=== PATIENT | female | born 1980 | race Caucasian/White ===

== ENCOUNTER 2019-12-31 16:44 | Inpatient (IN) | payer MEDICAID ==
[~2019-12-31] VITALS: Ht 154.9 cm; Wt 32.0 kg
[2019-12-31 17:00] VITALS: BP 86/58
[2019-12-31] MEDS ORDERED: LABETALOL HCL200 MG GT (17:00)
[2019-12-31] MEDS ORDERED: VITAMIN A & D454 GM TOP (17:00)
[2019-12-31] MEDS ORDERED: LEVOTHYROXINE75 MCG GT (17:00)
[2019-12-31] MEDS ORDERED: COLACE100 MG GT (17:00)
[2019-12-31] MEDS ORDERED: LOPERAMIDE2 MG PO (17:00)
[2019-12-31] MEDS ORDERED: ZOSYN 3.373.375 GM/1 IVPB (17:00)
[2019-12-31] MEDS ORDERED: UTI-STAT L3875 MG/31 PO (17:00)
[2019-12-31] MEDS ORDERED: MULTIVITAMINS1 EAC8 GT (17:00)
[2019-12-31] MEDS ORDERED: PROSTAT (17:00)
[2019-12-31] MEDS ORDERED: Vancomycin 1 GM in NS 275 ML IVPB ONE (17:00)
[2019-12-31] MEDS ORDERED: VITAMIN E400 UNIT PO (17:00)
[2019-12-31] MEDS ORDERED: XIFAXAN550 MG GT (17:00)
[2019-12-31] MEDS ORDERED: NEURONTIN600 MG ORAL (17:00)
[2019-12-31] MEDS ORDERED: MILK OF MA400 MG/51 GT (17:00)
[2019-12-31] MEDS ORDERED: KLONOPIN1 MG GT (17:00)
[2019-12-31] MEDS ORDERED: ZOFRAN4 M3 GT (17:00)
[2019-12-31] MEDS ORDERED: Piperacillin/Tazobactam 3.375 GM in NS 110 ML IVPB ONE (17:00)
[2019-12-31] MEDS ORDERED: BUMETANIDE0.5 MG GT (17:00)
[2019-12-31] MEDS ORDERED: PROTONIX40 MG GT (17:00)
[2019-12-31] MEDS ORDERED: PANCREALIPASE GT (17:00)
[2019-12-31] MEDS ORDERED: VITAMIN B-1100 MG GT (17:00)
[2019-12-31] MEDS ORDERED: ACETAMINOPHEN325 M1 GT (17:00)
[2019-12-31] MEDS ORDERED: KEPPRA1000 MG ORAL (17:00)
[2019-12-31] MEDS ORDERED: TRAMADOL HCL50 MG GT (17:00)
[2019-12-31] MEDS ORDERED: ATROVENT HFA12.9 GM IH (17:00)
[2019-12-31] MEDS ORDERED: VITAMIN C500 M1 GT (17:00)
[2019-12-31] MEDS ORDERED: ATORVASTATIN CA20 MG ORAL (17:00)
[2019-12-31] MEDS ORDERED: HIBICLENS118 ML TP (17:00)
[2019-12-31] MEDS ORDERED: Pantoprazole 80 MG in NS 250 ML IV ONE (17:30)
[2019-12-31 17:31] LABS: HEMATOCRIT 21.3 % (37.0-47.0); MEAN CORPUSCULAR VOLUME 95 FL (80-99); PLATELET COUNT 231 K/UL (150-450); RED BLOOD COUNT 2.25 M/UL (4.20-5.40); RED CELL DISTRIBUTION WIDTH 15.4 % (11.6-14.8)
[2019-12-31 17:37] LABS: APPEARANCE,URINE CLEAR; BILIRUBIN, URINE NEGATIVE (NEGATIVE); COLOR,URINE YELLOW; GLUCOSE, URINE (UA) NEGATIVE (NEGATIVE); KETONES,URINE NEGATIVE (NEGATIVE); NITRITE,URINE NEGATIVE (NEGATIVE); PROTEIN,URINE NEGATIVE (NEGATIVE); UROBILINOGEN,URINE NORMAL MG/DL (0.0-1.0); WHITE BLOOD COUNT 24.7 K/UL (4.8-10.8)
[2019-12-31 17:38] LABS: LEUKOCYTE ESTERASE ,URINE NEGATIVE (NEGATIVE)
[2019-12-31 17:46] LABS: ANION GAP 8 mmol/L (5-15); BLOOD UREA NITROGEN 84 mg/dL (7-18); CALCIUM 8.8 MG/DL (8.5-10.1); CARBON DIOXIDE 34 MMOL/L (21-32); CHLORIDE 108 MMOL/L (98-107); CREATININE 0.7 MG/DL (0.55-1.30); SODIUM 149 MMOL/L (136-145)
[2019-12-31 17:58] LABS: ALANINE AMINOTRANSFERASE 154 U/L (12-78); ALBUMIN 2.7 G/DL (3.4-5.0); ALBUMIN/GLOBULIN RATIO 0.7 (1.0-2.7); ALKALINE PHOSPHATASE 142 U/L (46-116); ASPARTATE AMINO TRANSFERASE 67 U/L (15-37); BILIRUBIN,TOTAL 0.2 MG/DL (0.2-1.0); CKMB 6.6 NG/ML (0.0-3.6); CREATINE KINASE 195 U/L (26-308); PHOSPHORUS 2.7 MG/DL (2.5-4.9)
--- NOTE | 2019-12-31 17:59 | Emergency Room Report ---
History of Present Illness General Chief Complaint: Abnormal Labs Source: Patient Present Illness HPI 39-year-old female with history of hepatic encephalopathy, trach and vent dependent, myriad of other medical problems, here with elevated BUN, hypotension , rectal bleeding. Per the nursing report the patient had a BUN today of 118 and hemoglobin of 7.2. Blood pressure reading at the [facility] was 80/40 however the patient appeared to be at her normal baseline mental status. According to [facility] nurse here in the emergency department patient normally thrashes and tries to pull out her trach regularly, which she is doing here in the emergency department. She is unable to participate in examination or review of systems secondary to hepatic encephalopathy at baseline altered mental status. Allergies: Coded Allergies: CARBAMAZEPINE (Verified Allergy, Unknown, 12/31/19) LORAZEPAM (Verified Allergy, Unknown, 12/31/19) COVID-19 Screening Contact w/high risk pt: No Experienced COVID-19 symptoms?: No COVID-19 Testing performed COOK MESS: Yes - 12/27/2019 COVID-19 Screening: Negative COVID-19 COVID-19 Testing Source: nasopharyngeal Nursing Documentation-[facility] Past Medical History: No History, Except For Hx Hypertension: Yes Review of Systems All Other Systems: limited - Limited secondary to baseline altered mental status Physical Exam Vital Signs Date Time Temp Pulse Resp B/P (MAP) Pulse Ox O2 Delivery O2 Flow Rate FiO2 12/31/19 16:45 98.1 112 23 86/58 (67) 100 Trach Collar 5.0 12/31/19 17:14 40 Sp02 EP Interpretation: reviewed, normal General Appearance: thin, other - Appears cachectic, chronically ill. Thrashing and attempting to rip out IVs and trach Head: normocephalic, atraumatic Eyes: bilateral eye normal inspection, bilateral eye PERRL ENT: hearing grossly normal, normal pharynx, no angioedema, normal voice Neck: full range of motion, supple/symm/no masses, other - Trach in place. Patient breathing comfortably Respiratory: other - Ventilator dependent. Mechanical breath sounds all lung rodríguez. On the ventilator, no apparent respiratory distress Cardiovascular #1: regular rate, rhythm, no edema Cardiovascular #2: 2+ carotid (R), 2+ carotid (L), 2+ radial (R), 2+ radial (L) , 2+ dorsalis pedis (R), 2+ dorsalis pedis (L) Gastrointestinal: normal bowel sounds, non tender, soft, non-distended, no guarding, no rebound, other - And largely nontender and nondistended. G-tube in place without any surrounding erythema or induration or leakage Rectal: other - Hemoccult positive Genitourinary: normal inspection, no CVA tenderness Musculoskeletal: back normal, normal range of motion, calf tenderness, gait/ station normal, non-tender Neurologic: other - Altered at baseline, thrashing, attempting to pull out tracheostomy and IVs Lymphatic: no adenopathy Medical Decision Making Diagnostic Impression: Primary Impression: GI bleed Additional Impressions: Sepsis Pneumonia ER Course Total critical care time: Approximately 45 minutes Due to a high probability of clinically significant, life threatening deterioration, the patient required the highest level of preparedness to intervene emergently and I personally spent this critical care time directly and personally managing the patient. This critical care time included obtaining a history, examining the patient, pulse oximetry, ordering and reviewing studies , ordering treatments, evaluating response to treatment and updating management plan as needed, frequent reassessment and discussion with other providers as well as arranging for ultimate disposition. This critical to care time was performed to assess and manage the high probability of life-threatening deterioration that could result in multiorgan failure. This critical care time is separate from the separately billable procedures and treating other patients. Laboratory Tests Test 12/31/19 17:00 White Blood Count 24.7 K/UL (4.8-10.8) *H Red Blood Count 2.25 M/UL (4.20-5.40) L Hemoglobin 7.0 G/DL (12.0-16.0) L Hematocrit 21.3 % (37.0-47.0) L Mean Corpuscular Volume 95 FL (80-99) Mean Corpuscular Hemoglobin 31.0 PG (27.0-31.0) Mean Corpuscular Hemoglobin Concent 32.7 G/DL (32.0-36.0) Red Cell Distribution Width 15.4 % (11.6-14.8) H Platelet Count 231 K/UL (150-450) Mean Platelet Volume 8.4 FL (6.5-10.1) Neutrophils (%) (Auto) % (45.0-75.0) Lymphocytes (%) (Auto) % (20.0-45.0) Monocytes (%) (Auto) % (1.0-10.0) Eosinophils (%) (Auto) % (0.0-3.0) Basophils (%) (Auto) % (0.0-2.0) Differential Total Cells Counted 100 Neutrophils % (Manual) 72 % (45-75) Lymphocytes % (Manual) 23 % (20-45) Monocytes % (Manual) 3 % (1-10) Eosinophils % (Manual) 0 % (0-3) Basophils % (Manual) 1 % (0-2) Band Neutrophils 1 % (0-8) Platelet Estimate Adequate Platelet Morphology Normal Polychromasia 1+ Anisocytosis 1+ Prothrombin Time 11.0 SEC (9.30-11.50) Prothrombin Time INR 1.0 (0.9-1.1) Activated Partial Thromboplast Time 23 SEC (23-33) Urine Color Yellow Urine Appearance Clear Urine pH 5.0 (4.5-8.0) Urine Specific [place] 1.015 (1.005-1.035) Urine Protein Negative (NEGATIVE) Urine Glucose (UA) Negative (NEGATIVE) Urine Ketones Negative (NEGATIVE) Urine Blood Negative (NEGATIVE) Urine Nitrite Negative (NEGATIVE) Urine Bilirubin Negative (NEGATIVE) Urine Urobilinogen Normal MG/DL (0.0-1.0) Urine Leukocyte Esterase Negative (NEGATIVE) Sodium Level 149 MMOL/L (136-145) H Potassium Level 3.0 MMOL/L (3.5-5.1) L Chloride Level 108 MMOL/L (98-107) H Carbon Dioxide Level 34 MMOL/L (21-32) H Anion Gap 8 mmol/L (5-15) Blood Urea Nitrogen 84 mg/dL (7-18) H Creatinine 0.7 MG/DL (0.55-1.30) Estimated Glomerular Filtration Rate > 60 mL/min (>60) Glucose Level 86 MG/DL (74-106) Lactic Acid Level 2.90 mmol/L (0.4-2.0) H Calcium Level 8.8 MG/DL (8.5-10.1) Phosphorus Level 2.7 MG/DL (2.5-4.9) Magnesium Level 2.2 MG/DL (1.8-2.4) Total Bilirubin 0.2 MG/DL (0.2-1.0) Aspartate Amino Transferase (AST) 67 U/L (15-37) H Alanine Aminotransferase (ALT) 154 U/L (12-78) H Alkaline Phosphatase 142 U/L (46-116) H Total Creatine Kinase 195 U/L (26-308) Creatine Kinase MB 6.6 NG/ML (0.0-3.6) H Creatine Kinase MB Relative Index 3.3 Troponin I 0.039 ng/mL (0.000-0.056) Total Protein 6.6 G/DL (6.4-8.2) Albumin 2.7 G/DL (3.4-5.0) L Globulin 3.9 g/dL Albumin/Globulin Ratio 0.7 (1.0-2.7) L Microbiology Date/Time Source Procedure Growth Status 12/31/19 17:00 Nasopharynx SARS-CoV-2 RdRp Gene Assay - Final Complete 39-year-old female here with leukocytosis and apparent GI bleed. Patient was Hemoccult positive and had a hemoglobin of 6.9 here in the emergency department. She was transfused 1 unit packed red blood cells. Vital signs were unremarkable. Prior to arrival however patient had a blood pressure reading of 85/55. Blood pressure on arrival however was 120/80 and blood pressure remained stable throughout her stay in the emergency department. Lactate moderately elevated at 2.5. She received a 30 cc/kg fluid bolus and repeat lactate is currently pending. EKG: NSR, no ischemia, intervals WNL. No ectopy Rhythm strip: patient monitored for arrhythmias - no malignant dysrhythmias, runs of PVCs, nor pauses noted She received 80 mg of IV Protonix. Potassium was low at 3.0 and she received potassium repletion. Patient be admitted to stepdown unit due to the fact that she is vent dependent. Chest X-Ray Diagnostic Results Chest X-Ray Diagnostic Results : DIANNA Scribe Text Chest x-ray: Density overlying the bilateral lung apices. May represent pleural thickening, multifocal airspace opacities versus summation artifact. Endotracheal and percutaneous gastrostomy tubes in place Last Vital Signs Date Time Temp Pulse Resp B/P (MAP) Pulse Ox O2 Delivery O2 Flow Rate FiO2 12/31/19 17:14 119 25 40 12/31/19 16:45 98.1 86/58 (67) 100 Trach Collar 5.0 Referrals: Glenny Bishop MD (PCP) Neeraj Rucker M.D. Dec 31, 2019 17:59
[2019-12-31] MEDS ORDERED: Potassium Phosphate 20 MM in NS 275 ML IVPB ONE (18:00)
--- NOTE | 2019-12-31 18:12 | Diagnostic Imaging Report ---
EXAM: XR Chest, 1 View CLINICAL HISTORY: SOB TECHNIQUE: Frontal view of the chest. COMPARISON: None available. FINDINGS: Lungs: Biapical, left greater than right densities are demonstrated. Pleural space: Unremarkable. No pneumothorax. Heart: Unremarkable. No cardiomegaly. Mediastinum: Unremarkable. Bones/joints: Unremarkable. Tubes, lines and devices: Tracheostomy tube is present. Percutaneous gastrostomy tube is noted overlying the left upper quadrant the abdomen. Upper abdomen: Cholecystectomy clips are present. IMPRESSION: 1. Density overlying the bilateral lung apices. May represent pleural thickening, multifocal airspace opacities, versus summation artifact. Consider dedicated frontal and lateral radiographs. 2. Endotracheal and percutaneous gastrostomy tubes in place.
[2019-12-31 18:30] VITALS: BP 98/60
[2019-12-31 19:15] VITALS: BP 110/62
[2019-12-31 20:30] VITALS: BP 113/66
[2019-12-31] MEDS ORDERED: traMADol 50mg tab ORAL PRN ×2 (21:00→21:15)
[2019-12-31 21:55] VITALS: BP 113/61
[2019-12-31] MEDS: Azithromycin 500 MG in D5W 275 ML IV SCH (22:32)
[2019-12-31] MEDS ORDERED: cefTRIAXone 1 GM in D5W 55 ML IVPB SCH (23:00)
[2020-01-01] VITALS (7 sets, daily range): BP systolic 100–124; BP diastolic 60–70
[2020-01-01] MEDS: Albuterol/Ipratropium 3ml neb HHN SCH ×4 (00:54→19:31)
[2020-01-01 06:44] LABS: HEMATOCRIT 22.7 % (37.0-47.0); HEMOGLOBIN 7.4 G/DL (12.0-16.0); MEAN CORPUSCULAR VOLUME 93 FL (80-99); PLATELET COUNT 197 K/UL (150-450); RED BLOOD COUNT 2.45 M/UL (4.20-5.40); RED CELL DISTRIBUTION WIDTH 14.6 % (11.6-14.8)
[2020-01-01 07:08] LABS: ANION GAP 9 mmol/L (5-15); BLOOD UREA NITROGEN 47 mg/dL (7-18); CARBON DIOXIDE 30 MMOL/L (21-32); CHLORIDE 112 MMOL/L (98-107); CREATININE 0.6 MG/DL (0.55-1.30); POTASSIUM 2.9 MMOL/L (3.5-5.1); SODIUM 151 MMOL/L (136-145)
--- NOTE | 2020-01-01 07:15 | History & Physical ---
History of Present Illness General Reason for Hospitalization: Abnormal Labs Present Illness Allergies: Coded Allergies: CARBAMAZEPINE (Verified Allergy, Unknown, 12/31/19) LORAZEPAM (Verified Allergy, Unknown, 12/31/19) COVID-19 Screening Contact w/high risk pt: No Experienced COVID-19 symptoms?: No Medication History Scheduled Ascorbic Acid* (Vitamin C*), 500 MG ORAL DAILY, (Reported) Atorvastatin Calcium* (Atorvastatin Calcium*), 10 MG ORAL BEDTIME, (Reported) Bumetanide* (Bumetanide*), 0.5 MG ORAL DAILY, (Reported) Clonazepam* (Klonopin*), 1 MG ORAL Q6H, (Reported) Docusate Sodium* (Colace*), 100 MG ORAL DAILY, (Reported) Gabapentin* (Neurontin*), 300 MG ORAL EVERY 8 HOURS, (Reported) Labetalol Hcl* (Normodyne*), 200 MG ORAL EVERY 12 HOURS, (Reported) Levetiracetam (Keppra), 1,000 MG ORAL DAILY, (Reported) Levothyroxine Sodium* (Levothyroxine Sodium*), 75 MCG ORAL DAILY, (Reported) Magnesium Hydroxide* (Milk Of Magnesia*), 30 ML ORAL DAILY, (Reported) Multivitamin With Minerals (Multivitamins With Minerals*), 1 TAB ORAL DAILY, ( Reported) Pantoprazole* (Protonix*), 40 MG ORAL DAILY, (Reported) Rifaximin* (Xifaxan*), 550 MG ORAL TWICE A DAY, (Reported) Thiamine Hcl* (Vitamin B-1*), 100 MG ORAL DAILY, (Reported) Scheduled PRN Acetaminophen* (Acetaminophen 325MG Tablet*), 325 MG ORAL Q4H PRN for For Pain, (Reported) Ondansetron* (Zofran*), 4 MG ORAL Q6H PRN for Nausea & Vomiting, (Reported) Tramadol Hcl* (Ultram*), 50 MG ORAL Q6H PRN for For Pain, (Reported) Discontinued Medications Chlorhexidine Gluconate* (Hibiclens*), 118 ML TP, (Reported) Discontinued Reason: MD discontinued med Cran/Vitc/Mannose/Inulin/Brom (Uti-Stat Liquid), 3,875 MG PO, (Reported) Discontinued Reason: MD discontinued med Ipratropium [place] (Atrovent Hfa), 17 GM IH, (Reported) Discontinued Reason: MD discontinued med Loperamide Hcl (Loperamide), 2 MG PO, (Reported) Discontinued Reason: MD discontinued med Axmuoltlqzrp-Csbo-Dlctrsbd,Iso (Zosyn 3.375 Gm Pre Mix-Bag), 3.375 GM IVPB EVERY 8 HOURS, (Reported) Discontinued Reason: MD discontinued med Vitamin A & D (Vitamin A & D Ointment), 454 GM TOP, (Reported) Discontinued Reason: Pt had allergic rxn Vitamin E* (Vitamin E*), 400 UNIT PO DAILY, (Reported) Discontinued Reason: MD discontinued med [pancrealipase], 1,200 GT FIVE TIMES A DAY PRN for supplement, (Reported) Discontinued Reason: MD discontinued med [prostat liquid], (Reported) Discontinued Reason: MD discontinued med Patient History Healthcare decision maker Resuscitation status Advanced Directive on File Review of Systems Review of Symptoms General ROS: no weight loss or fever Psychological ROS: no depression or mood changes, no memory loss Ophthalmic ROS: no visual changes or eye irritation ENT ROS: no nasal congestion, hearing loss, dizziness Allergy and Immunology ROS: no allergic symptoms or urticaria Hematological and Lymphatic ROS: no swollen glands, unusual bleeding or bruising Endocrine ROS: no polyuria, polydipsia, weight changes, temperature intolerance Respiratory ROS: no cough, shortness of breath, or wheezing Cardiovascular ROS: no chest pain or dyspnea on exertion Gastrointestinal ROS: denies abdominal pain, bright red blood in stool. Musculoskeletal ROS: no myalgias or arthralgias Neurological ROS: no TIA or stroke symptoms Dermatological ROS: no new or changing skin lesions, rashes or pruritis Physical Exam Physical Exam General appearance: alert, cooperative, no distress, appears stated age Head: Normocephalic, without obvious abnormality, atraumatic Eyes: conjunctivae/corneas clear. PERRL, EOM's intact. Fundi benign Throat: Lips, mucosa, and tongue normal. Teeth and gums normal Neck: supple, symmetrical, trachea midline, no adenopathy, thyroid: not enlarged, symmetric, no tenderness/mass/nodules, no carotid bruit and no JVD Lungs: clear to auscultation bilaterally Heart: regular rate and rhythm, S1, S2 normal, no murmur, click, rub or gallop Abdomen: soft, non-tender. Bowel sounds normal. No masses, no organomegaly Extremities: extremities normal, atraumatic, no cyanosis or edema Pulses: 2+ and symmetric Skin: Skin color, texture, turgor normal. No rashes or lesions Neurologic: Grossly normal Last 24 Hour Vital Signs Date Time Temp Pulse Resp B/P (MAP) Pulse Ox O2 Delivery O2 Flow Rate FiO2 01/01/20 05:21 105 16 30 01/01/20 04:00 98.0 89 18 118/63 (81) 98 01/01/20 04:00 30 01/01/20 04:00 Mechanical Ventilator 01/01/20 03:42 115 01/01/20 02:35 110 16 30 01/01/20 00:54 101 17 100 Mechanical Ventilator 30 104 16 30 01/01/20 00:00 30 01/01/20 00:00 97.9 100 20 124/60 (81) 99 01/01/20 00:00 Mechanical Ventilator 12/31/19 23:39 97 12/31/19 23:39 97 12/31/19 22:20 30 12/31/19 21:55 98.3 76 18 113/61 (78) 99 12/31/19 21:50 106 20 30 12/31/19 21:22 91 12/31/19 21:20 Mechanical Ventilator 12/31/19 20:30 98.3 79 14 117/72 100 Trach Collar 30 12/31/19 20:30 98.9 94 14 113/66 100 Trach Collar 5.0 12/31/19 19:15 98.1 89 14 110/62 100 Trach Collar 5.0 12/31/19 19:00 30 12/31/19 18:45 110 22 30 12/31/19 18:39 110 22 40 12/31/19 18:30 98.1 93 14 98/60 100 Trach Collar 5.0 12/31/19 17:14 119 25 40 12/31/19 17:00 98.1 90 23 86/58 100 Trach Collar 5.0 12/31/19 16:45 98.1 112 23 86/58 (67) 100 Trach Collar 5.0 Intake and Output 12/31/19 01/01/20 19:00 07:00 Intake Total 600 ml Output Total 700 ml Balance -100 ml Intake Free Water 50 ml IV Total 385 ml Tube Feeding 165 ml Output Urine Total 700 ml # Voids 1 # Bowel Movements 2 Laboratory Tests Test 12/31/19 17:00 12/31/19 18:25 12/31/19 18:30 12/31/19 22:00 White Blood Count 24.7 K/UL (4.8-10.8) *H Red Blood Count 2.25 M/UL (4.20-5.40) L Hemoglobin 7.0 G/DL (12.0-16.0) L Hematocrit 21.3 % (37.0-47.0) L Mean Corpuscular Volume 95 FL (80-99) Mean Corpuscular Hemoglobin 31.0 PG (27.0-31.0) Mean Corpuscular Hemoglobin Concent 32.7 G/DL (32.0-36.0) Red Cell Distribution Width 15.4 % (11.6-14.8) H Platelet Count 231 K/UL (150-450) Mean Platelet Volume 8.4 FL (6.5-10.1) Neutrophils (%) (Auto) % (45.0-75.0) Lymphocytes (%) (Auto) % (20.0-45.0) Monocytes (%) (Auto) % (1.0-10.0) Eosinophils (%) (Auto) % (0.0-3.0) Basophils (%) (Auto) % (0.0-2.0) Differential Total Cells Counted 100 Neutrophils % (Manual) 72 % (45-75) Lymphocytes % (Manual) 23 % (20-45) Monocytes % (Manual) 3 % (1-10) Eosinophils % (Manual) 0 % (0-3) Basophils % (Manual) 1 % (0-2) Band Neutrophils 1 % (0-8) Platelet Estimate Adequate Platelet Morphology Normal Polychromasia 1+ Anisocytosis 1+ Prothrombin Time 11.0 SEC (9.30-11.50) Prothromb Time International Ratio 1.0 (0.9-1.1) Activated Partial Thromboplast Time 23 SEC (23-33) Urine Color Yellow Urine Appearance Clear Urine pH 5.0 (4.5-8.0) Urine Specific [place] 1.015 (1.005-1.035) Urine Protein Negative (NEGATIVE) Urine Glucose (UA) Negative (NEGATIVE) Urine Ketones Negative (NEGATIVE) Urine Blood Negative (NEGATIVE) Urine Nitrite Negative (NEGATIVE) Urine Bilirubin Negative (NEGATIVE) Urine Urobilinogen Normal MG/DL (0.0-1.0) Urine Leukocyte Esterase Negative (NEGATIVE) Sodium Level 149 MMOL/L (136-145) H Potassium Level 3.0 MMOL/L (3.5-5.1) L Chloride Level 108 MMOL/L (98-107) H Carbon Dioxide Level 34 MMOL/L (21-32) H Anion Gap 8 mmol/L (5-15) Blood Urea Nitrogen 84 mg/dL (7-18) H Creatinine 0.7 MG/DL (0.55-1.30) Estimat Glomerular Filtration Rate > 60 mL/min (>60) Glucose Level 86 MG/DL (74-106) Lactic Acid Level 2.90 mmol/L (0.4-2.0) H 1.10 mmol/L (0.66-2.22) Calcium Level 8.8 MG/DL (8.5-10.1) Phosphorus Level 2.7 MG/DL (2.5-4.9) Magnesium Level 2.2 MG/DL (1.8-2.4) Total Bilirubin 0.2 MG/DL (0.2-1.0) Aspartate Amino Transf (AST/SGOT) 67 U/L (15-37) H Alanine Aminotransferase (ALT/SGPT) 154 U/L (12-78) H Alkaline Phosphatase 142 U/L (46-116) H Total Creatine Kinase 195 U/L (26-308) Creatine Kinase MB 6.6 NG/ML (0.0-3.6) H Creatine Kinase MB Relative Index 3.3 Troponin I 0.039 ng/mL (0.000-0.056) Total Protein 6.6 G/DL (6.4-8.2) Albumin 2.7 G/DL (3.4-5.0) L Globulin 3.9 g/dL Albumin/Globulin Ratio 0.7 (1.0-2.7) L Arterial Blood pH 7.446 (7.350-7.450) Arterial Blood Partial Pressure CO2 41.6 mmHg (35.0-45.0) Arterial Blood Partial Pressure O2 148.8 mmHg (75.0-100.0) H Arterial Blood HCO3 28.0 mmol/L (22.0-26.0) H Arterial Blood Oxygen Saturation 98.3 % (95-100) Arterial Blood Base Excess 3.6 (-2-2) H Tacos Test Positive Stool Occult Blood Pending Test 01/01/20 06:15 White Blood Count 16.0 K/UL (4.8-10.8) H Red Blood Count 2.45 M/UL (4.20-5.40) L Hemoglobin 7.4 G/DL (12.0-16.0) L Hematocrit 22.7 % (37.0-47.0) L Mean Corpuscular Volume 93 FL (80-99) Mean Corpuscular Hemoglobin 30.3 PG (27.0-31.0) Mean Corpuscular Hemoglobin Concent 32.7 G/DL (32.0-36.0) Red Cell Distribution Width 14.6 % (11.6-14.8) Platelet Count 197 K/UL (150-450) Mean Platelet Volume 7.9 FL (6.5-10.1) Neutrophils (%) (Auto) % (45.0-75.0) Lymphocytes (%) (Auto) % (20.0-45.0) Monocytes (%) (Auto) % (1.0-10.0) Eosinophils (%) (Auto) % (0.0-3.0) Basophils (%) (Auto) % (0.0-2.0) Neutrophils % (Manual) Pending Lymphocytes % (Manual) Pending Platelet Estimate Pending Platelet Morphology Pending Sodium Level 151 MMOL/L (136-145) H Potassium Level 2.9 MMOL/L (3.5-5.1) L Chloride Level 112 MMOL/L (98-107) H Carbon Dioxide Level 30 MMOL/L (21-32) Anion Gap 9 mmol/L (5-15) Blood Urea Nitrogen 47 mg/dL (7-18) H Creatinine 0.6 MG/DL (0.55-1.30) Estimat Glomerular Filtration Rate > 60 mL/min (>60) Glucose Level 108 MG/DL (74-106) H Calcium Level 9.0 MG/DL (8.5-10.1) Microbiology Date/Time Source Procedure Growth Status 12/31/19 17:00 Nasopharynx SARS-CoV-2 RdRp Gene Assay - Final Complete Height (Feet): 5 Height (Inches): 2.00 Weight (Pounds): 84 Medications Current Medications Medications (Trade) Dose Ordered Sig/Villa Route PRN Reason Start Time Stop Time Status Last Admin Dose Admin Acetaminophen (Tylenol) 325 mg Q4H PRN ORAL For Pain 12/31/19 21:00 01/30/20 20:59 01/01/20 05:53 Albuterol/ Ipratropium (Albuterol/ Ipratropium) 3 ml Q6HRT HHN 01/01/20 01:00 01/06/20 00:59 01/01/20 07:02 Ascorbic Acid (Vitamin C) 500 mg DAILY ORAL 01/01/20 09:00 01/31/20 08:59 Atorvastatin Calcium (Lipitor) 10 mg BEDTIME ORAL 12/31/19 21:00 03/30/20 20:59 12/31/19 22:00 Azithromycin 500 mg/Dextrose 275 ml @ 275 mls/hr DAILY IV 12/31/19 21:15 01/05/20 21:14 12/31/19 22:32 Bumetanide (Bumex) 0.5 mg DAILY GT 01/01/20 09:00 01/31/20 08:59 Ceftriaxone Sodium 1 gm/ Dextrose 55 ml @ 110 mls/hr Q24H IVPB 12/31/19 23:00 01/07/20 22:59 12/31/19 23:58 Clonazepam (KlonoPIN) 1 mg Q6H ORAL 12/31/19 21:00 01/07/20 20:59 01/01/20 02:56 Docusate Sodium (Colace) 100 mg DAILY ORAL 01/01/20 09:00 01/31/20 08:59 Gabapentin (Neurontin) 300 mg EVERY 8 HOURS ORAL 12/31/19 22:00 01/30/20 21:59 01/01/20 05:06 Labetalol HCl (Normodyne) 200 mg Q12HR GT 01/01/20 09:00 01/31/20 08:59 Levetiracetam (Keppra) 1,000 mg DAILY ORAL 01/01/20 09:00 01/31/20 08:59 Levothyroxine Sodium (Synthroid) 75 mcg DAILY ORAL 01/01/20 09:00 01/31/20 08:59 Loperamide HCl (Imodium) 2 mg Q12HR PRN ORAL Diarrhea 12/31/19 21:15 01/30/20 21:14 Magnesium Hydroxide (Mom) 30 ml DAILY ORAL 01/01/20 09:00 01/31/20 08:59 Multivitamins Therapeutic (Therapeutic Multivitamin) 1 ea DAILY ORAL 01/01/20 09:00 01/31/20 08:59 Ondansetron HCl (Zofran) 4 mg Q6H PRN ORAL Nausea & Vomiting 12/31/19 21:00 01/30/20 20:59 Pantoprazole (Protonix) 40 mg DAILY ORAL 01/01/20 09:00 01/31/20 08:59 Rifaximin (Xifaxan) 550 mg TWICE A DAY ORAL 01/01/20 09:00 01/08/20 08:59 Thiamine HCl (Vitamin B1) 100 mg DAILY ORAL 01/01/20 09:00 01/31/20 08:59 Tramadol HCl (Ultram) 50 mg Q6H PRN ORAL For Pain (4-10) 12/31/19 21:15 01/07/20 20:59 Assessment/Plan Assessment/Plan: Internal Med H&P Covering Dr. Bishop DOS: 01/01/20 RFA: ABnml labs ID 39-year-old female with history of hepatic encephalopathy, trach and vent dependent, myriad of other medical problems, here with elevated BUN, hypotension , rectal bleeding. Per the nursing report the patient had a BUN today of 118 and hemoglobin of 7.2. Blood pressure reading at the retirement was 80/40 however the patient appeared to be at her normal baseline mental status. According to retirement nurse here in the emergency department patient normally thrashes and tries to pull out her trach regularly, which she is doing here in the emergency department. She is unable to participate in examination or review of systems secondary to hepatic encephalopathy at baseline altered mental status. Gi service has been consulted thus far. 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 Thrashing and attempting to rip out IVs and trach (overnight) HEENT: normocephalic, atraumatic ++ trach Resp: other - Ventilator dependent. vent Cardiovascular: regular rate, rhythm, no edema Gastrointestinal: gtube in place, without erythema Rectal: other - Hemoccult positive [place]: back normal, gait/station normal, non-tender Lymphatic: no adenopathy Labs noted Imaging Chest x-ray: Density overlying the bilateral lung apices. May represent pleural thickening, multifocal airspace opacities versus summation artifact. Endotracheal and percutaneous gastrostomy tubes in place Assess/Recs # Anemia rule out underlying gi bleed --> Dr. Carrillo has been consulted --> trend hgb 7-->7.4 --> anemia panel ordered --> prn transfusion --> protonix started # Leukocytosis is likely related to pna on imaging --> abx has been started --> if wbc worsens, consider abx --> smear is noted # Sepsis --> on abx for pna # Pneumonia --> pulm, Dr. 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 clinical education consultant care, will follow [facility] Hospital declaration INPATIENT level of care is warranted for this patient because patient is a 89 year old with who presents with suspicion of . I have a high level of concern because . Patient is at high risk for . Plan of care/treatment include . Patient care is expected to be greater than 2 midnights. OBSERVATION level of care is warranted for this patient. Patient is a 89 year old with who presents with . Patient will be admitted for 1 midnight, but if additional night(s) is/are necessary, patient will be converted to inpatient status for the entire hospitalization Disposition: Once the patient is stable to leave the hospital, I anticipate the patient will likely be discharged to the following environment: Estimated discharge date: I spent 70 minutes on this patient's case, and minutes was dedicated to counseling and/or care coordination. MIPS (Merit-based Incentive Payment System) Applicable CPT: 23140, 22792 CHECK ALL THAT ARE MET: Measure #5 (CHF): All ages. Prescribe JANINA/ARB upon discharge for patients with left ventricular systolic dysfunction. If not, the reason is clearly documented in the medical chart. Measure #8 (CHF): All ages. Prescribe a beta radha upon discharge for patients with left ventricular systolic dysfunction. If not, the reason is clearly documented in the medical chart. Measure #47 Advance care plan or surrogate decision maker documented in the medical record. Measure #130 The provider has documented, updated, or reviewed the patients current medication list and has documented it in the patients note. Measure #374 (All): Send report to referring provider. Measure #407(Sepsis due to MSSA bacteremia): Age 18+ Patient treated with a beta-lactam antibiotic (Nafcillin, Oxacillin or Cefazolin) as definitive therapy. MEDICAL COMPLEXITY High complexity medical decision making (need 2/3 categories) Problem - need 4 points Acute/new problem with new plan for workup (4 points, 1 max) Acute/new problem without additional workup (3 points, 1 max) Unstable chronic problem actively being managed (2 point each, 2 max) Stable chronic problem actively being managed (1 point each, 2 max) Self-limited/transient process (constipation, muscle ache, etc) (1 point each , 2 max) Data - need 4 points Reviewed labs/imaging studies (1 points, 2 max) Independent review of imaging (EKG, xrays, etc) (2 points, 2 max) Discussed case with consult/other MD/RN (2 points, 2 max) High Risk - qualify if have one of the following: Severe exacerbation of acute problem, acute mental status change, IV narcotics , monitoring drug levels (vancomycin, INR, tacrolimus etc) Baltazar Crotes MD Jan 01, 2020 07:15
[2020-01-01] MEDS: Milk of Magnesia 30ml Ud ORAL SCH (08:29)
[2020-01-01] MEDS: Docusate 100mg cap ORAL SCH (08:29)
[2020-01-01] MEDS: Multivitamin w/Minerals tab ORAL SCH (08:46)
[2020-01-01] MEDS: Thiamine 100mg tab ORAL SCH (08:46)
[2020-01-01] MEDS: Ascorbic Acid 500mg tab ORAL SCH (08:47)
[2020-01-01] MEDS ORDERED: Bumetanide 1mg tab GT SCH (09:00)
[2020-01-01] MEDS: Azithromycin 500 MG in D5W 275 ML IV SCH (09:10)
--- NOTE | 2020-01-01 09:10 | Consultation ---
Ivanna Mora INCOMING FREIGHT CLERK 01/01/20 0910: History of Present Illness General Date patient seen: Jan 01, 2020 Time patient seen: 08:45 Chief Complaint: rectal bleeding Referring physician: Dr Cortes Reason for Consultation: VDRF/trach status, PNA Present Illness HPI 39 years old female with past medical history of history of VDRF/trach, hx of CVA, seizure disorder, cirrhosis, HTN, psychiatric disorder, was brought for evaluation due to low blood pressure, rectal bleeding . Blood pressure reading in a senior living 80/40. Upon evaluation patient was tachycardic , tachypneic, hypotensive, afebrile. ABG was stable on current settings. Sodium 149, potassium 3.0. BUN 84, creatinine 0.7. Lactic acid 2.9. AST 67 ALT 154. Total bilirubin 0.2. Troponin 0 0.039 , ECG revealed SR, no acute ischemic changes. Albumin 2.7 CXR revealed density overlying the bilateral lung apices. May represent pleural thickening, multifocal airspace opacities, versus summation artifact. Rapid COVID-19 in emergency department was negative. Septic work-up initiated. Patient received fluid bolus pancultured and started on empiric antibiotics. Patient received 80 mg of IV Protonix. Potassium was replaced. Pulmonary consult was requested to assist in management of this patient. This am patient febrile, tachycardic, BP improved. Allergies: Coded Allergies: CARBAMAZEPINE (Verified Allergy, Unknown, 12/31/19) LORAZEPAM (Verified Allergy, Unknown, 12/31/19) Medication History Scheduled Ascorbic Acid* (Vitamin C*), 500 MG ORAL DAILY, (Reported) Atorvastatin Calcium* (Atorvastatin Calcium*), 10 MG ORAL BEDTIME, (Reported) Bumetanide* (Bumetanide*), 0.5 MG ORAL DAILY, (Reported) Clonazepam* (Klonopin*), 1 MG ORAL Q6H, (Reported) Docusate Sodium* (Colace*), 100 MG ORAL DAILY, (Reported) Gabapentin* (Neurontin*), 300 MG ORAL EVERY 8 HOURS, (Reported) Labetalol Hcl* (Normodyne*), 200 MG ORAL EVERY 12 HOURS, (Reported) Levetiracetam (Keppra), 1,000 MG ORAL DAILY, (Reported) Levothyroxine Sodium* (Levothyroxine Sodium*), 75 MCG ORAL DAILY, (Reported) Magnesium Hydroxide* (Milk Of Magnesia*), 30 ML ORAL DAILY, (Reported) Multivitamin With Minerals (Multivitamins With Minerals*), 1 TAB ORAL DAILY, ( Reported) Pantoprazole* (Protonix*), 40 MG ORAL DAILY, (Reported) Rifaximin* (Xifaxan*), 550 MG ORAL TWICE A DAY, (Reported) Thiamine Hcl* (Vitamin B-1*), 100 MG ORAL DAILY, (Reported) Scheduled PRN Acetaminophen* (Acetaminophen 325MG Tablet*), 325 MG ORAL Q4H PRN for For Pain, (Reported) Ondansetron* (Zofran*), 4 MG ORAL Q6H PRN for Nausea & Vomiting, (Reported) Tramadol Hcl* (Ultram*), 50 MG ORAL Q6H PRN for For Pain, (Reported) Discontinued Medications Chlorhexidine Gluconate* (Hibiclens*), 118 ML TP, (Reported) Discontinued Reason: MD discontinued med Cran/Vitc/Mannose/Inulin/Brom (Uti-Stat Liquid), 3,875 MG PO, (Reported) Discontinued Reason: MD discontinued med Ipratropium Avenel (Atrovent Hfa), 17 GM IH, (Reported) Discontinued Reason: MD discontinued med Loperamide Hcl (Loperamide), 2 MG PO, (Reported) Discontinued Reason: MD discontinued med Ogdcjpmwaxio-Myhe-Qhtonabe,Iso (Zosyn 3.375 Gm Pre Mix-Bag), 3.375 GM IVPB EVERY 8 HOURS, (Reported) Discontinued Reason: discontinued med Vitamin A & D (Vitamin A & D Ointment), 454 GM TOP, (Reported) Discontinued Reason: Pt had allergic rxn Vitamin E* (Vitamin E*), 400 UNIT PO DAILY, (Reported) Discontinued Reason: discontinued med [pancrealipase], 1,200 GT FIVE TIMES A DAY PRN for supplement, (Reported) Discontinued Reason: discontinued med [prostat liquid], (Reported) Discontinued Reason: MD discontinued med Patient History Healthcare decision maker Resuscitation status Full code Advanced Directive on File Review of Systems ROS Narrative unable to obtain 2 to altered mental status Physical Exam General Appearance: other - bedridden, chronically ill looking, older than her biological age ; vent dependen t female Lines, tubes and drains: peripheral, trach HEENT: normocephalic, atraumatic Neck: trach - Portex #7, secretions moderate amount, yellow color, thick consistency Respiratory/Chest: rhonchi - bilaterally - few scattered rhonchi BL Cardiovascular/Chest: normal rate, regular rhythm Abdomen: non tender, soft, feeding tube Genitourinary/Rectal: perkins Extremities: no edema, other - atrophy Neurologic: abnormal gait, other - poorly responsive, Musculoskeletal: atrophy Last 24 Hour Vital Signs Date Time Temp Pulse Resp B/P (MAP) Pulse Ox O2 Delivery O2 Flow Rate FiO2 01/01/20 08:30 99 100/70 01/01/20 08:00 101.5 99 18 100/70 (80) 98 01/01/20 07:12 116 15 100 Mechanical Ventilator 30 112 15 30 01/01/20 06:23 100.1 01/01/20 05:21 105 16 30 01/01/20 04:00 98.0 89 18 118/63 (81) 98 01/01/20 04:00 30 01/01/20 04:00 Mechanical Ventilator 01/01/20 03:42 115 01/01/20 02:35 110 16 30 01/01/20 00:54 101 17 100 Mechanical Ventilator 30 104 16 30 01/01/20 00:00 30 01/01/20 00:00 97.9 100 20 124/60 (81) 99 01/01/20 00:00 Mechanical Ventilator 12/31/19 23:39 97 12/31/19 23:39 97 12/31/19 22:20 30 12/31/19 21:55 98.3 76 18 113/61 (78) 99 12/31/19 21:50 106 20 30 12/31/19 21:22 91 12/31/19 21:20 Mechanical Ventilator 12/31/19 20:30 98.3 79 14 117/72 100 Trach Collar 30 12/31/19 20:30 98.9 94 14 113/66 100 Trach Collar 5.0 12/31/19 19:15 98.1 89 14 110/62 100 Trach Collar 5.0 12/31/19 19:00 30 12/31/19 18:45 110 22 30 12/31/19 18:39 110 22 40 12/31/19 18:30 98.1 93 14 98/60 100 Trach Collar 5.0 12/31/19 17:14 119 25 40 12/31/19 17:00 98.1 90 23 86/58 100 Trach Collar 5.0 12/31/19 16:45 98.1 112 23 86/58 (67) 100 Trach Collar 5.0 Intake and Output 12/31/19 01/01/20 19:00 07:00 Intake Total 600 ml Output Total 700 ml Balance -100 ml Intake Free Water 50 ml IV Total 385 ml Tube Feeding 165 ml Output Urine Total 700 ml # Voids 1 # Bowel Movements 2 Laboratory Tests Test 12/31/19 17:00 12/31/19 18:25 12/31/19 18:30 12/31/19 22:00 White Blood Count 24.7 K/UL (4.8-10.8) *H Red Blood Count 2.25 M/UL (4.20-5.40) L Hemoglobin 7.0 G/DL (12.0-16.0) L Hematocrit 21.3 % (37.0-47.0) L Mean Corpuscular Volume 95 FL (80-99) Mean Corpuscular Hemoglobin 31.0 PG (27.0-31.0) Mean Corpuscular Hemoglobin Concent 32.7 G/DL (32.0-36.0) Red Cell Distribution Width 15.4 % (11.6-14.8) H Platelet Count 231 K/UL (150-450) Mean Platelet Volume 8.4 FL (6.5-10.1) Neutrophils (%) (Auto) % (45.0-75.0) Lymphocytes (%) (Auto) % (20.0-45.0) Monocytes (%) (Auto) % (1.0-10.0) Eosinophils (%) (Auto) % (0.0-3.0) Basophils (%) (Auto) % (0.0-2.0) Differential Total Cells Counted 100 Neutrophils % (Manual) 72 % (45-75) Lymphocytes % (Manual) 23 % (20-45) Monocytes % (Manual) 3 % (1-10) Eosinophils % (Manual) 0 % (0-3) Basophils % (Manual) 1 % (0-2) Band Neutrophils 1 % (0-8) Platelet Estimate Adequate Platelet Morphology Normal Polychromasia 1+ Anisocytosis 1+ Prothrombin Time 11.0 SEC (9.30-11.50) Prothromb Time International Ratio 1.0 (0.9-1.1) Activated Partial Thromboplast Time 23 SEC (23-33) Urine Color Yellow Urine Appearance Clear Urine pH 5.0 (4.5-8.0) Urine Specific [place] 1.015 (1.005-1.035) Urine Protein Negative (NEGATIVE) Urine Glucose (UA) Negative (NEGATIVE) Urine Ketones Negative (NEGATIVE) Urine Blood Negative (NEGATIVE) Urine Nitrite Negative (NEGATIVE) Urine Bilirubin Negative (NEGATIVE) Urine Urobilinogen Normal MG/DL (0.0-1.0) Urine Leukocyte Esterase Negative (NEGATIVE) Sodium Level 149 MMOL/L (136-145) H Potassium Level 3.0 MMOL/L (3.5-5.1) L Chloride Level 108 MMOL/L (98-107) H Carbon Dioxide Level 34 MMOL/L (21-32) H Anion Gap 8 mmol/L (5-15) Blood Urea Nitrogen 84 mg/dL (7-18) H Creatinine 0.7 MG/DL (0.55-1.30) Estimat Glomerular Filtration Rate > 60 mL/min (>60) Glucose Level 86 MG/DL (74-106) Lactic Acid Level 2.90 mmol/L (0.4-2.0) H 1.10 mmol/L (0.66-2.22) Calcium Level 8.8 MG/DL (8.5-10.1) Phosphorus Level 2.7 MG/DL (2.5-4.9) Magnesium Level 2.2 MG/DL (1.8-2.4) Total Bilirubin 0.2 MG/DL (0.2-1.0) Aspartate Amino Transf (AST/SGOT) 67 U/L (15-37) H Alanine Aminotransferase (ALT/SGPT) 154 U/L (12-78) H Alkaline Phosphatase 142 U/L (46-116) H Total Creatine Kinase 195 U/L (26-308) Creatine Kinase MB 6.6 NG/ML (0.0-3.6) H Creatine Kinase MB Relative Index 3.3 Troponin I 0.039 ng/mL (0.000-0.056) Total Protein 6.6 G/DL (6.4-8.2) Albumin 2.7 G/DL (3.4-5.0) L Globulin 3.9 g/dL Albumin/Globulin Ratio 0.7 (1.0-2.7) L Arterial Blood pH 7.446 (7.350-7.450) Arterial Blood Partial Pressure CO2 41.6 mmHg (35.0-45.0) Arterial Blood Partial Pressure O2 148.8 mmHg (75.0-100.0) H Arterial Blood HCO3 28.0 mmol/L (22.0-26.0) H Arterial Blood Oxygen Saturation 98.3 % (95-100) Arterial Blood Base Excess 3.6 (-2-2) H Tacos Test Positive Stool Occult Blood Pending Test 01/01/20 06:15 White Blood Count 16.0 K/UL (4.8-10.8) H Red Blood Count 2.45 M/UL (4.20-5.40) L Hemoglobin 7.4 G/DL (12.0-16.0) L Hematocrit 22.7 % (37.0-47.0) L Mean Corpuscular Volume 93 FL (80-99) Mean Corpuscular Hemoglobin 30.3 PG (27.0-31.0) Mean Corpuscular Hemoglobin Concent 32.7 G/DL (32.0-36.0) Red Cell Distribution Width 14.6 % (11.6-14.8) Platelet Count 197 K/UL (150-450) Mean Platelet Volume 7.9 FL (6.5-10.1) Neutrophils (%) (Auto) % (45.0-75.0) Lymphocytes (%) (Auto) % (20.0-45.0) Monocytes (%) (Auto) % (1.0-10.0) Eosinophils (%) (Auto) % (0.0-3.0) Basophils (%) (Auto) % (0.0-2.0) Differential Total Cells Counted 100 Neutrophils % (Manual) 78 % (45-75) H Lymphocytes % (Manual) 14 % (20-45) L Monocytes % (Manual) 8 % (1-10) Eosinophils % (Manual) 0 % (0-3) Basophils % (Manual) 0 % (0-2) Band Neutrophils 0 % (0-8) Platelet Estimate Adequate Platelet Morphology Normal Hypochromasia 3+ Anisocytosis 1+ Sodium Level 151 MMOL/L (136-145) H Potassium Level 2.9 MMOL/L (3.5-5.1) L Chloride Level 112 MMOL/L (98-107) H Carbon Dioxide Level 30 MMOL/L (21-32) Anion Gap 9 mmol/L (5-15) Blood Urea Nitrogen 47 mg/dL (7-18) H Creatinine 0.6 MG/DL (0.55-1.30) Estimat Glomerular Filtration Rate > 60 mL/min (>60) Glucose Level 108 MG/DL (74-106) H Calcium Level 9.0 MG/DL (8.5-10.1) Microbiology Date/Time Source Procedure Growth Status 12/31/19 17:00 Nasopharynx SARS-CoV-2 RdRp Gene Assay - Final Complete Height (Feet): 5 Height (Inches): 2.00 Weight (Pounds): 84 Medications Current Medications Medications (Trade) Dose Ordered Sig/Villa Route PRN Reason Start Time Stop Time Status Last Admin Dose Admin Acetaminophen (Tylenol) 325 mg Q4H PRN ORAL For Pain 12/31/19 21:00 01/30/20 20:59 01/01/20 05:53 Albuterol/ Ipratropium (Albuterol/ Ipratropium) 3 ml Q6HRT HHN 01/01/20 01:00 01/06/20 00:59 01/01/20 07:02 Ascorbic Acid (Vitamin C) 500 mg DAILY ORAL 01/01/20 09:00 01/31/20 08:59 01/01/20 08:47 Atorvastatin Calcium (Lipitor) 10 mg BEDTIME ORAL 12/31/19 21:00 03/30/20 20:59 12/31/19 22:00 Azithromycin 500 mg/Dextrose 275 ml @ 275 mls/hr DAILY IV 12/31/19 21:15 01/05/20 21:14 12/31/19 22:32 Bumetanide (Bumex) 0.5 mg DAILY GT 01/01/20 09:00 01/31/20 08:59 Ceftriaxone Sodium 1 gm/ Dextrose 55 ml @ 110 mls/hr Q24H IVPB 12/31/19 23:00 01/07/20 22:59 12/31/19 23:58 Clonazepam (KlonoPIN) 1 mg Q6H ORAL 12/31/19 21:00 01/07/20 20:59 01/01/20 02:56 Docusate Sodium (Colace) 100 mg DAILY ORAL 01/01/20 09:00 01/31/20 08:59 Gabapentin (Neurontin) 300 mg EVERY 8 HOURS ORAL 12/31/19 22:00 01/30/20 21:59 01/01/20 05:06 Labetalol HCl (Normodyne) 200 mg Q12HR GT 01/01/20 09:00 01/31/20 08:59 Levetiracetam (Keppra) 1,000 mg DAILY ORAL 01/01/20 09:00 01/31/20 08:59 01/01/20 08:46 Levothyroxine Sodium (Synthroid) 75 mcg DAILY ORAL 01/01/20 09:00 01/31/20 08:59 01/01/20 08:47 Loperamide HCl (Imodium) 2 mg Q12HR PRN ORAL Diarrhea 12/31/19 21:15 01/30/20 21:14 Magnesium Hydroxide (Mom) 30 ml DAILY ORAL 01/01/20 09:00 01/31/20 08:59 Multivitamins Therapeutic (Therapeutic Multivitamin) 1 ea DAILY ORAL 01/01/20 09:00 01/31/20 08:59 01/01/20 08:46 Ondansetron HCl (Zofran) 4 mg Q6H PRN ORAL Nausea & Vomiting 12/31/19 21:00 01/30/20 20:59 Pantoprazole (Protonix) 40 mg EVERY 12 HOURS IVP 01/01/20 09:00 01/31/20 08:59 Potassium Chloride 100 ml @ 100 mls/hr Q1H IVPB 01/01/20 09:00 01/01/20 11:59 01/01/20 08:46 Rifaximin (Xifaxan) 550 mg TWICE A DAY ORAL 01/01/20 09:00 01/08/20 08:59 01/01/20 08:47 Thiamine HCl (Vitamin B1) 100 mg DAILY ORAL 01/01/20 09:00 01/31/20 08:59 01/01/20 08:46 Tramadol HCl (Ultram) 50 mg Q6H PRN ORAL For Pain (4-10) 12/31/19 21:15 01/07/20 20:59 Assessment/Plan Assessment/Plan: ASSESSMENT VDRF/trach status Sepsis Pneumonia Rectal bleeding Anemia secondary to rectal bleeding Aspiration risk Dysphagia, feeding by G-tube Chronic encephalopathy Acute kidney injury likely secondary to dehydration Electrolyte imbalance Severe protein calorie malnutrition Hypertension History of CVA Seizure disorder Psychiatric disorder PLAN OF CARE JULIANA vent support, pulm toilet ABG stable on current settings, keep as is and titrate as neededed fup with CXR pulm toilet via HHN dc Azithromycin and ceftriaxone and start Zosyn and vanco( pharmacy to dose), since it is HAP vs asp PNA not CAP fup cx rapid COVID 19 NGT in ED aspiration precautions will get Venous Duplex BLE and if negative, apply SCD ( unable to give a/c given anemia) closely monitor hemodynamic status Protonix gtt NPO stool OB pending transfuse to keep Hgb > 7. heme and GI follows trend LFT monitor renal parameters, lytes, avoid nephrotoxic BUN trending down, creat stable, likely prerenal due to dehydration replace e/ lytes fup with further nephro recs monitor volumes seizure precautions, continue Keppra, trend LFT BP management with current regimen SNF meds supportive care dietary eval case discussed and evaluated by supervising physician Raul Esparza MD 01/01/20 1421: History of Present Illness General Chief Complaint: rectal bleeding Present Illness Allergies: Coded Allergies: CARBAMAZEPINE (Verified Allergy, Unknown, 12/31/19) LORAZEPAM (Verified Allergy, Unknown, 12/31/19) Medication History Scheduled Ascorbic Acid* (Vitamin C*), 500 MG ORAL DAILY, (Reported) Atorvastatin Calcium* (Atorvastatin Calcium*), 10 MG ORAL BEDTIME, (Reported) Bumetanide* (Bumetanide*), 0.5 MG ORAL DAILY, (Reported) Clonazepam* (Klonopin*), 1 MG ORAL Q6H, (Reported) Docusate Sodium* (Colace*), 100 MG ORAL DAILY, (Reported) Gabapentin* (Neurontin*), 300 MG ORAL EVERY 8 HOURS, (Reported) Labetalol Hcl* (Normodyne*), 200 MG ORAL EVERY 12 HOURS, (Reported) Levetiracetam (Keppra), 1,000 MG ORAL DAILY, (Reported) Levothyroxine Sodium* (Levothyroxine Sodium*), 75 MCG ORAL DAILY, (Reported) Magnesium Hydroxide* (Milk Of Magnesia*), 30 ML ORAL DAILY, (Reported) Multivitamin With Minerals (Multivitamins With Minerals*), 1 TAB ORAL DAILY, ( Reported) Pantoprazole* (Protonix*), 40 MG ORAL DAILY, (Reported) Rifaximin* (Xifaxan*), 550 MG ORAL TWICE A DAY, (Reported) Thiamine Hcl* (Vitamin B-1*), 100 MG ORAL DAILY, (Reported) Scheduled PRN Acetaminophen* (Acetaminophen 325MG Tablet*), 325 MG ORAL Q4H PRN for For Pain, (Reported) Ondansetron* (Zofran*), 4 MG ORAL Q6H PRN for Nausea & Vomiting, (Reported) Tramadol Hcl* (Ultram*), 50 MG ORAL Q6H PRN for For Pain, (Reported) Discontinued Medications Chlorhexidine Gluconate* (Hibiclens*), 118 ML TP, (Reported) Discontinued Reason: MD discontinued med Cran/Vitc/Mannose/Inulin/Brom (Uti-Stat Liquid), 3,875 MG PO, (Reported) Discontinued Reason: MD discontinued med Ipratropium Avenel (Atrovent Hfa), 17 GM IH, (Reported) Discontinued Reason: MD discontinued med Loperamide Hcl (Loperamide), 2 MG PO, (Reported) Discontinued Reason: MD discontinued med Arcamfuaovkp-Aawd-Bwpjepet,Iso (Zosyn 3.375 Gm Pre Mix-Bag), 3.375 GM IVPB EVERY 8 HOURS, (Reported) Discontinued Reason: MD discontinued med Vitamin A & D (Vitamin A & D Ointment), 454 GM TOP, (Reported) Discontinued Reason: Pt had allergic rxn Vitamin E* (Vitamin E*), 400 UNIT PO DAILY, (Reported) Discontinued Reason: discontinued med [pancrealipase], 1,200 GT FIVE TIMES A DAY PRN for supplement, (Reported) Discontinued Reason: discontinued med [prostat liquid], (Reported) Discontinued Reason: MD discontinued med Assessment/Plan Assessment/Plan: Patient seen and examined with INCOMING FREIGHT CLERK. Agree with above A&P as it reflects our joint deliberations. Chronic trach/PEG a/w RB possible PNA Vent support, Abx, monitror, HH, GI rec, ENDO in am FC, continue to discuss [facility] Ivanna Mora INCOMING FREIGHT CLERK Jan 01, 2020 09:10 Raul Esparza MD Jan 01, 2020 14:21
[2020-01-01] MEDS: Pantoprazole Inj IVP SCH ×2 (09:14→20:07)
--- NOTE | 2020-01-01 09:58 | General Progress Note ---
Assessment/Plan Problem List: (1) G tube feedings ICD Codes: Z93.1 - Gastrostomy status SNOMED: 640425399, 661140438, [id number] (2) GI bleed ICD Codes: K92.2 - Gastrointestinal hemorrhage, unspecified SNOMED: 45887059 (3) Sepsis ICD Codes: A41.9 - Sepsis, unspecified organism SNOMED: 53162152 (4) Pneumonia ICD Codes: J18.9 - Pneumonia, unspecified organism SNOMED: 538165142 Assessment/Plan: npo ppi monitor H&H plan EGd in am patient was not NPO to do the EGd today also has fever and low K Subjective ROS Limited/Unobtainable: No Allergies: Coded Allergies: CARBAMAZEPINE (Verified Allergy, Unknown, 12/31/19) LORAZEPAM (Verified Allergy, Unknown, 12/31/19) Objective Last 24 Hour Vital Signs Date Time Temp Pulse Resp B/P (MAP) Pulse Ox O2 Delivery O2 Flow Rate FiO2 01/01/20 08:50 88 15 30 01/01/20 08:30 99 100/70 01/01/20 08:00 101.5 99 18 100/70 (80) 98 01/01/20 07:12 116 15 100 Mechanical Ventilator 30 112 15 30 01/01/20 06:23 100.1 01/01/20 05:21 105 16 30 01/01/20 04:00 98.0 89 18 118/63 (81) 98 01/01/20 04:00 30 01/01/20 04:00 Mechanical Ventilator 01/01/20 03:42 115 01/01/20 02:35 110 16 30 01/01/20 00:54 101 17 100 Mechanical Ventilator 30 104 16 30 01/01/20 00:00 30 01/01/20 00:00 97.9 100 20 124/60 (81) 99 01/01/20 00:00 Mechanical Ventilator 12/31/19 23:39 97 12/31/19 23:39 97 12/31/19 22:20 30 12/31/19 21:55 98.3 76 18 113/61 (78) 99 12/31/19 21:50 106 20 30 12/31/19 21:22 91 12/31/19 21:20 Mechanical Ventilator 12/31/19 20:30 98.3 79 14 117/72 100 Trach Collar 30 12/31/19 20:30 98.9 94 14 113/66 100 Trach Collar 5.0 12/31/19 19:15 98.1 89 14 110/62 100 Trach Collar 5.0 12/31/19 19:00 30 12/31/19 18:45 110 22 30 12/31/19 18:39 110 22 40 12/31/19 18:30 98.1 93 14 98/60 100 Trach Collar 5.0 12/31/19 17:14 119 25 40 12/31/19 17:00 98.1 90 23 86/58 100 Trach Collar 5.0 12/31/19 16:45 98.1 112 23 86/58 (67) 100 Trach Collar 5.0 Intake and Output 12/31/19 01/01/20 19:00 07:00 Intake Total 600 ml Output Total 700 ml Balance -100 ml Intake Free Water 50 ml IV Total 385 ml Tube Feeding 165 ml Output Urine Total 700 ml # Voids 1 # Bowel Movements 2 Laboratory Tests 12/31/19 17:00: White Blood Count 24.7*H, Red Blood Count 2.25L, Hemoglobin 7.0L, Hematocrit 21.3L, Mean Corpuscular Volume 95, Mean Corpuscular Hemoglobin 31.0, Mean Corpuscular Hemoglobin Concent 32.7, Red Cell Distribution Width 15.4H, Platelet Count 231, Mean Platelet Volume 8.4, Neutrophils (%) (Auto) , Lymphocytes (%) (Auto) , Monocytes (%) (Auto) , Eosinophils (%) (Auto) , Basophils (%) (Auto) , Differential Total Cells Counted 100, Neutrophils % ( Manual) 72, Lymphocytes % (Manual) 23, Monocytes % (Manual) 3, Eosinophils % ( Manual) 0, Basophils % (Manual) 1, Band Neutrophils 1, Platelet Estimate Adequate, Platelet Morphology Normal, Polychromasia 1+, Anisocytosis 1+, Prothrombin Time 11.0, Prothromb Time International Ratio 1.0, Activated Partial Thromboplast Time 23, Urine Color Yellow, Urine Appearance Clear, Urine pH 5.0, Urine Specific [place] 1.015, Urine Protein Negative, Urine Glucose (UA ) Negative, Urine Ketones Negative, Urine Blood Negative, Urine Nitrite Negative , Urine Bilirubin Negative, Urine Urobilinogen Normal, Urine Leukocyte Esterase Negative, Sodium Level 149H, Potassium Level 3.0L, Chloride Level 108H, Carbon Dioxide Level 34H, Anion Gap 8, Blood Urea Nitrogen 84H, Creatinine 0.7, Estimat Glomerular Filtration Rate > 60, Glucose Level 86, Lactic Acid Level 2.90H, Calcium Level 8.8, Phosphorus Level 2.7, Magnesium Level 2.2, Total Bilirubin 0.2, Aspartate Amino Transf (AST/SGOT) 67H, Alanine Aminotransferase ( ALT/SGPT) 154H, Alkaline Phosphatase 142H, Total Creatine Kinase 195, Creatine Kinase MB 6.6H, Creatine Kinase MB Relative Index 3.3, Troponin I 0.039, Total Protein 6.6, Albumin 2.7L, Globulin 3.9, Albumin/Globulin Ratio 0.7L 12/31/19 18:25: Arterial Blood pH 7.446, Arterial Blood Partial Pressure CO2 41.6, Arterial Blood Partial Pressure O2 148.8H, Arterial Blood HCO3 28.0H, Arterial Blood Oxygen Saturation 98.3, Arterial Blood Base Excess 3.6H, Tacos Test Positive 12/31/19 18:30: Lactic Acid Level 1.10 12/31/19 22:00: Stool Occult Blood [Pending] 01/01/20 06:15: White Blood Count 16.0H, Red Blood Count 2.45L, Hemoglobin 7.4L, Hematocrit 22.7L, Mean Corpuscular Volume 93, Mean Corpuscular Hemoglobin 30.3, Mean Corpuscular Hemoglobin Concent 32.7, Red Cell Distribution Width 14.6, Platelet Count 197, Mean Platelet Volume 7.9, Neutrophils (%) (Auto) , Lymphocytes (%) ( Auto) , Monocytes (%) (Auto) , Eosinophils (%) (Auto) , Basophils (%) (Auto) , Differential Total Cells Counted 100, Neutrophils % (Manual) 78H, Lymphocytes % (Manual) 14L, Monocytes % (Manual) 8, Eosinophils % (Manual) 0, Basophils % ( Manual) 0, Band Neutrophils 0, Platelet Estimate Adequate, Platelet Morphology Normal, Hypochromasia 3+, Anisocytosis 1+, Sodium Level 151H, Potassium Level 2.9L, Chloride Level 112H, Carbon Dioxide Level 30, Anion Gap 9, Blood Urea Nitrogen 47H, Creatinine 0.6, Estimat Glomerular Filtration Rate > 60, Glucose Level 108H, Calcium Level 9.0 Height (Feet): 5 Height (Inches): 2.00 Weight (Pounds): 84 General Appearance: no apparent distress EENT: normal ENT inspection Neck: supple Cardiovascular: normal rate Respiratory/Chest: decreased breath sounds Abdomen: normal bowel sounds, non tender, soft Extremities: non-tender Satish Carrillo MD Jan 01, 2020 09:58
--- NOTE | 2020-01-01 09:59 | Consultation ---
Consult Note Consult Note I am asked to evaluate this patient at the request of Dr. Gracia who is covering for Dr. Bishop for renal failure. Patient seen in room 245 Patient is trached, vented, has a PEG. Non-historian Patient examined Data review Emergency room note: 39-year-old female with history of hepatic encephalopathy, trach and vent dependent, myriad of other medical problems, here with elevated BUN, hypotension , rectal bleeding. Per the nursing report the patient had a BUN today of 118 and hemoglobin of 7.2. [facility] pressure reading at the prison was 80/40 however the patient appeared to be at her normal baseline mental status. According to prison nurse here in the emergency department patient normally thrashes and tries to pull out her trach regularly, which she is doing here in the emergency department. She is unable to participate in examination or review of systems secondary to hepatic encephalopathy at baseline altered mental status. Allergies: Coded Allergies: CARBAMAZEPINE (Verified Allergy, Unknown, 12/31/19) LORAZEPAM (Verified Allergy, Unknown, 12/31/19) COVID-19 Screening Contact w/high risk pt: No Experienced COVID-19 symptoms?: No COVID-19 Testing performed LANGUAGE PATHOLOGIST: Yes - 12/27/2019 COVID-19 Screening: Negative COVID-19 COVID-19 Testing Source: nasopharyngeal Past Medical History: No History, Except For Hx Hypertension: Yes Vital Signs Date Time Temp Pulse Resp B/P (MAP) Pulse Ox O2 Delivery O2 Flow Rate FiO2 12/31/19 16:45 98.1 112 23 86/58 (67) 100 Trach Collar 5.0 12/31/19 17:14 40 General Appearance: other - bedridden, chronically ill looking, older than her biological age ; vent dependen t female Lines, tubes and drains: peripheral, trach HEENT: normocephalic, atraumatic Neck: trach - Portex #7, secretions moderate amount, yellow color, thick consistency Respiratory/Chest: rhonchi - bilaterally - few scattered rhonchi BL Cardiovascular/Chest: normal rate, regular rhythm Abdomen: non tender, soft, feeding tube Genitourinary/Rectal: perkins Extremities: no edema, other - atrophy Neurologic: abnormal gait, other - poorly responsive, Musculoskeletal: atrophy . Assessment/Plan Renal failure, in the form of prerenal azotemia, most likely secondary to GI bleed GI bleed, leading to severe anemia Sepsis, pneumonia Chronic tracheostomy, ventilator dependent History of CVA History of seizure disorder History of psychiatric disorder Severe malnutrition Electrolyte abnormalities Suggestions: Discontinue blood pressure medications as her blood pressure is low Discontinue diuretics Monitor renal parameters Transfusion as needed GI evaluation Correct electrolyte abnormalities Check B12 level, folate, and thyroid function tests I spent an additional 36 minutes on review of medical records including prior hospital records,consult notes, progress notes, procedures ,imaging labs, hemodynamics, and other clinical documentation. Over 35 min Chivo Holloway MD Jan 01, 2020 09:59
[2020-01-01] MEDS ORDERED: Albuterol/Ipratropium 3ml neb HHN PRN (10:00)
[2020-01-01] MEDS: Piperacillin/Tazobactam 3.375 GM in NS 110 ML IVPB SCH ×2 (11:56→19:09)
[2020-01-01] MEDS ORDERED: Vancomycin 1gm in D5W 275ml IVPB SCH (14:00)
--- NOTE | 2020-01-01 14:45 | Consultation ---
History of Present Illness General Date patient seen: Jan 01, 2020 Chief Complaint: Abnormal Labs Referring physician: Dr Cortes Reason for Consultation: VDRF/trach status, PNA Present Illness HPI 39-year-old female with history of hepatic encephalopathy, trach and vent dependent, with multiple medical problems was admitted for elevated BUN, hypotension, rectal bleeding. anemia. surgery called to evaluate and assist with care. trach on vent with hx of dislodged trach from patient. no n/v/f/c. labs noted. Allergies: Coded Allergies: CARBAMAZEPINE (Verified Allergy, Unknown, 12/31/19) LORAZEPAM (Verified Allergy, Unknown, 12/31/19) Medication History Scheduled Albuterol Sulfate* (Albuterol Sulfate Hfa*), 2 PUFF INH Q6H, (Reported) Albuterol Sulfate* (Albuterol Sulfate Hfa*), 2 PUFF INH Q3H, (Reported) Ascorbic Acid* (Vitamin C*), 500 MG GT DAILY, (Reported) Atorvastatin Calcium* (Lipitor*), 10 MG GT BEDTIME, (Reported) Bumetanide* (Bumetanide*), 0.5 MG GT DAILY, (Reported) Clonazepam* (Klonopin*), 1 MG GT TID, (Reported) Docusate Sodium* (Colace*), 100 MG GT DAILY, (Reported) Gabapentin (Neurontin), 300 MG ORAL BID, (Reported) Labetalol Hcl* (Normodyne*), 200 MG GT Q6HR, (Reported) Lactobacillus Acidophilus (Acidophilus), 1 EACH GT BID, (Reported) Levetiracetam (Keppra), 1,000 MG GT DAILY, (Reported) Levothyroxine Sodium* (Levothyroxine Sodium*), 75 MCG GT DAILY, (Reported) Multivitamin With Minerals (Multivitamins With Minerals*), 1 TAB GT DAILY, ( Reported) Pantoprazole* (Protonix*), 40 MG GT BID, (Reported) Rifaximin* (Xifaxan*), 550 MG GT TWICE A DAY, (Reported) Tea Tree Oil (Tea Tree Oil), Unknown Dose TP DAILY, (Reported) Thiamine Hcl* (Vitamin B-1*), 100 MG GT DAILY, (Reported) Scheduled PRN Acetaminophen* (Acetaminophen 325MG Tablet*), 650 MG GT Q4H PRN for Temp >100.5, (Reported) Acetaminophen* (Acetaminophen 325MG Tablet*), 650 MG GT Q4H PRN for For Pain, ( Reported) Magnesium Hydroxide* (Milk Of Magnesia*), 30 ML GT DAILY PRN for Constipation, ( Reported) Ondansetron* (Zofran*), 4 MG GT Q6H PRN for Nausea & Vomiting, (Reported) Tramadol Hcl* (Ultram*), 50 MG GT Q4HR PRN for For Pain, (Reported) Discontinued Medications Atorvastatin Calcium* (Atorvastatin Calcium*), 10 MG ORAL BEDTIME, (Reported) Discontinued Reason: Prescription changed Chlorhexidine Gluconate* (Hibiclens*), 118 ML TP, (Reported) Discontinued Reason: MD discontinued med Cran/Vitc/Mannose/Inulin/Brom (Uti-Stat Liquid), 3,875 MG PO, (Reported) Discontinued Reason: MD discontinued med Gabapentin* (Neurontin*), 300 MG ORAL EVERY 8 HOURS, (Reported) Discontinued Reason: Prescription changed Ipratropium [place] (Atrovent Hfa), 17 GM IH, (Reported) Discontinued Reason: MD discontinued med Levetiracetam (Keppra), 1,000 MG ORAL DAILY, (Reported) Discontinued Reason: Prescription changed Loperamide Hcl (Loperamide), 2 MG PO, (Reported) Discontinued Reason: MD discontinued med Lttvzvjkpsue-Slnv-Vsnirbin,Iso (Zosyn 3.375 Gm Pre Mix-Bag), 3.375 GM IVPB EVERY 8 HOURS, (Reported) Discontinued Reason: MD discontinued med Vitamin A & D (Vitamin A & D Ointment), 454 GM TOP, (Reported) Discontinued Reason: Pt had allergic rxn Vitamin E* (Vitamin E*), 400 UNIT PO DAILY, (Reported) Discontinued Reason: MD discontinued med [pancrealipase], 1,200 GT FIVE TIMES A DAY PRN for supplement, (Reported) Discontinued Reason: discontinued med [prostat liquid], (Reported) Discontinued Reason: MD discontinued med Patient History Limited by: medical condition History Provided By: Medical Record, PMD Healthcare decision maker Resuscitation status Advanced Directive on File Past Medical/Surgical History Past Medical/Surgical History: (1) Pneumonia (2) Sepsis (3) GI bleed (4) G tube feedings Review of Systems Constitutional: Denies: no symptoms, see HPI, chills, sweats, fever, malaise, weakness, other Eye: Denies: no symptoms, see HPI, eye pain, blurred vision, tearing, double vision, nose pain, nose congestion, acuity changes, discharge, other ENT: Denies: no symptoms, see HPI, ear pain, ear discharge, nose pain, nose congestion, throat pain, throat swelling, mouth pain, hearing loss, nasal discharge, other Respiratory: Denies: no symptoms, see HPI, cough, orthopnea, shortness of breath, stridor, wheezing, VEGA, sputum, other Cardiovascular: Denies: no symptoms, see HPI, chest pain, edema, palpitations, syncope, PND, other Gastrointestinal: Denies: no symptoms, see HPI, abdominal pain, constipation, diarrhea, nausea, vomiting, melena, hematemesis, other Genitourinary: Denies: no symptoms, see HPI, discharge, dysuria, frequency, hematuria, pain, retention, incontinence, urgency, vag bleed/dc, other Musculoskeletal: Denies: no symptoms, see HPI, back pain, gout, joint pain, joint swelling, muscle pain, muscle stiffness, other Skin: Denies: no symptoms, see HPI, rash, change in color, change in hair/nails , dryness, lesions, other Psychiatric: Denies: no symptoms, see HPI, prior hx, anxiety, depressed feelings, emotional problems, SI, HI, hallucinations, other Neurological: Denies: no symptoms, see HPI, headache, numbness, paresthesia, seizure, tingling, tremors, focal weakness, syncope, dizziness, other Endocrine: Denies: no symptoms, see HPI, excessive sweating, flushing, intolerance to temperature, increased thirst, increased urine, unexplained weight loss, other Hematologic/Lymphatic: Denies: no symptoms, see HPI, anemia, blood clots, easy bleeding, easy bruising, swollen glands, diathesis, other All Other Systems: negative except mentioned in HPI Physical Exam General Appearance: no apparent distress, alert Lines, tubes and drains: peripheral HEENT: mucous membranes moist Neck: trach Respiratory/Chest: decreased breath sounds, on vent Cardiovascular/Chest: normal rate, regular rhythm Abdomen: soft, no organomegaly, no mass, other Genitourinary/Rectal: normal rectal exam Extremities: normal inspection Skin Exam: warm/dry, other Neurologic: alert Last 24 Hour Vital Signs Date Time Temp Pulse Resp B/P (MAP) Pulse Ox O2 Delivery O2 Flow Rate FiO2 01/01/20 14:37 68 15 30 01/01/20 13:44 67 14 100 Mechanical Ventilator 30 71 14 30 01/01/20 12:00 70 01/01/20 12:00 30 01/01/20 10:45 75 16 30 01/01/20 10:00 98.7 01/01/20 08:50 88 15 30 01/01/20 08:30 99 100/70 01/01/20 08:00 114 01/01/20 08:00 Mechanical Ventilator 01/01/20 08:00 30 01/01/20 08:00 101.5 99 18 100/70 (80) 98 01/01/20 07:12 116 15 100 Mechanical Ventilator 30 112 15 30 01/01/20 06:23 100.1 01/01/20 05:21 105 16 30 01/01/20 04:00 98.0 89 18 118/63 (81) 98 01/01/20 04:00 30 01/01/20 04:00 Mechanical Ventilator 01/01/20 03:42 115 01/01/20 02:35 110 16 30 01/01/20 00:54 101 17 100 Mechanical Ventilator 30 104 16 30 01/01/20 00:00 30 01/01/20 00:00 97.9 100 20 124/60 (81) 99 01/01/20 00:00 Mechanical Ventilator 12/31/19 23:39 97 12/31/19 23:39 97 12/31/19 22:20 30 12/31/19 21:55 98.3 76 18 113/61 (78) 99 12/31/19 21:50 106 20 30 12/31/19 21:22 91 12/31/19 21:20 Mechanical Ventilator 12/31/19 20:30 98.3 79 14 117/72 100 Trach Collar 30 12/31/19 20:30 98.9 94 14 113/66 100 Trach Collar 5.0 12/31/19 19:15 98.1 89 14 110/62 100 Trach Collar 5.0 12/31/19 19:00 30 12/31/19 18:45 110 22 30 12/31/19 18:39 110 22 40 12/31/19 18:30 98.1 93 14 98/60 100 Trach Collar 5.0 12/31/19 17:14 119 25 40 12/31/19 17:00 98.1 90 23 86/58 100 Trach Collar 5.0 12/31/19 16:45 98.1 112 23 86/58 (67) 100 Trach Collar 5.0 Intake and Output 12/31/19 01/01/20 19:00 07:00 Intake Total 600 ml Output Total 700 ml Balance -100 ml Intake Free Water 50 ml IV Total 385 ml Tube Feeding 165 ml Output Urine Total 700 ml # Voids 1 # Bowel Movements 2 Laboratory Tests Test 12/31/19 17:00 12/31/19 18:25 12/31/19 18:30 12/31/19 22:00 White Blood Count 24.7 K/UL (4.8-10.8) *H Red Blood Count 2.25 M/UL (4.20-5.40) L Hemoglobin 7.0 G/DL (12.0-16.0) L Hematocrit 21.3 % (37.0-47.0) L Mean Corpuscular Volume 95 FL (80-99) Mean Corpuscular Hemoglobin 31.0 PG (27.0-31.0) Mean Corpuscular Hemoglobin Concent 32.7 G/DL (32.0-36.0) Red Cell Distribution Width 15.4 % (11.6-14.8) H Platelet Count 231 K/UL (150-450) Mean Platelet Volume 8.4 FL (6.5-10.1) Neutrophils (%) (Auto) % (45.0-75.0) Lymphocytes (%) (Auto) % (20.0-45.0) Monocytes (%) (Auto) % (1.0-10.0) Eosinophils (%) (Auto) % (0.0-3.0) Basophils (%) (Auto) % (0.0-2.0) Differential Total Cells Counted 100 Neutrophils % (Manual) 72 % (45-75) Lymphocytes % (Manual) 23 % (20-45) Monocytes % (Manual) 3 % (1-10) Eosinophils % (Manual) 0 % (0-3) Basophils % (Manual) 1 % (0-2) Band Neutrophils 1 % (0-8) Platelet Estimate Adequate Platelet Morphology Normal Polychromasia 1+ Anisocytosis 1+ Prothrombin Time 11.0 SEC (9.30-11.50) Prothromb Time International Ratio 1.0 (0.9-1.1) Activated Partial Thromboplast Time 23 SEC (23-33) Urine Color Yellow Urine Appearance Clear Urine pH 5.0 (4.5-8.0) Urine Specific [place] 1.015 (1.005-1.035) Urine Protein Negative (NEGATIVE) Urine Glucose (UA) Negative (NEGATIVE) Urine Ketones Negative (NEGATIVE) Urine Blood Negative (NEGATIVE) Urine Nitrite Negative (NEGATIVE) Urine Bilirubin Negative (NEGATIVE) Urine Urobilinogen Normal MG/DL (0.0-1.0) Urine Leukocyte Esterase Negative (NEGATIVE) Sodium Level 149 MMOL/L (136-145) H Potassium Level 3.0 MMOL/L (3.5-5.1) L Chloride Level 108 MMOL/L (98-107) H Carbon Dioxide Level 34 MMOL/L (21-32) H Anion Gap 8 mmol/L (5-15) Blood Urea Nitrogen 84 mg/dL (7-18) H Creatinine 0.7 MG/DL (0.55-1.30) Estimat Glomerular Filtration Rate > 60 mL/min (>60) Glucose Level 86 MG/DL (74-106) Lactic Acid Level 2.90 mmol/L (0.4-2.0) H 1.10 mmol/L (0.66-2.22) Calcium Level 8.8 MG/DL (8.5-10.1) Phosphorus Level 2.7 MG/DL (2.5-4.9) Magnesium Level 2.2 MG/DL (1.8-2.4) Total Bilirubin 0.2 MG/DL (0.2-1.0) Aspartate Amino Transf (AST/SGOT) 67 U/L (15-37) H Alanine Aminotransferase (ALT/SGPT) 154 U/L (12-78) H Alkaline Phosphatase 142 U/L (46-116) H Total Creatine Kinase 195 U/L (26-308) Creatine Kinase MB 6.6 NG/ML (0.0-3.6) H Creatine Kinase MB Relative Index 3.3 Troponin I 0.039 ng/mL (0.000-0.056) Total Protein 6.6 G/DL (6.4-8.2) Albumin 2.7 G/DL (3.4-5.0) L Globulin 3.9 g/dL Albumin/Globulin Ratio 0.7 (1.0-2.7) L Arterial Blood pH 7.446 (7.350-7.450) Arterial Blood Partial Pressure CO2 41.6 mmHg (35.0-45.0) Arterial Blood Partial Pressure O2 148.8 mmHg (75.0-100.0) H Arterial Blood HCO3 28.0 mmol/L (22.0-26.0) H Arterial Blood Oxygen Saturation 98.3 % (95-100) Arterial Blood Base Excess 3.6 (-2-2) H [place] Test Positive Stool Occult Blood Positive (NEGATIVE) Test 01/01/20 06:15 White Blood Count 16.0 K/UL (4.8-10.8) H Red Blood Count 2.45 M/UL (4.20-5.40) L Hemoglobin 7.4 G/DL (12.0-16.0) L Hematocrit 22.7 % (37.0-47.0) L Mean Corpuscular Volume 93 FL (80-99) Mean Corpuscular Hemoglobin 30.3 PG (27.0-31.0) Mean Corpuscular Hemoglobin Concent 32.7 G/DL (32.0-36.0) Red Cell Distribution Width 14.6 % (11.6-14.8) Platelet Count 197 K/UL (150-450) Mean Platelet Volume 7.9 FL (6.5-10.1) Neutrophils (%) (Auto) % (45.0-75.0) Lymphocytes (%) (Auto) % (20.0-45.0) Monocytes (%) (Auto) % (1.0-10.0) Eosinophils (%) (Auto) % (0.0-3.0) Basophils (%) (Auto) % (0.0-2.0) Differential Total Cells Counted 100 Neutrophils % (Manual) 78 % (45-75) H Lymphocytes % (Manual) 14 % (20-45) L Monocytes % (Manual) 8 % (1-10) Eosinophils % (Manual) 0 % (0-3) Basophils % (Manual) 0 % (0-2) Band Neutrophils 0 % (0-8) Platelet Estimate Adequate Platelet Morphology Normal Hypochromasia 3+ Anisocytosis 1+ Sodium Level 151 MMOL/L (136-145) H Potassium Level 2.9 MMOL/L (3.5-5.1) L Chloride Level 112 MMOL/L (98-107) H Carbon Dioxide Level 30 MMOL/L (21-32) Anion Gap 9 mmol/L (5-15) Blood Urea Nitrogen 47 mg/dL (7-18) H Creatinine 0.6 MG/DL (0.55-1.30) Estimat Glomerular Filtration Rate > 60 mL/min (>60) Glucose Level 108 MG/DL (74-106) H Calcium Level 9.0 MG/DL (8.5-10.1) Pro-B-Type Natriuretic Peptide 597 pg/mL (0-125) H Microbiology Date/Time Source Procedure Growth Status 12/31/19 17:00 Nasopharynx SARS-CoV-2 RdRp Gene Assay - Final Complete Height (Feet): 5 Height (Inches): 2.00 Weight (Pounds): 84 Medications Current Medications Medications (Trade) Dose Ordered Sig/Villa Route PRN Reason Start Time Stop Time Status Last Admin Dose Admin Acetaminophen (Tylenol) 650 mg Q6H PRN GT Temp >100.5 01/01/20 11:00 01/31/20 10:59 Albuterol/ Ipratropium (Albuterol/ Ipratropium) 3 ml Q4HRT PRN HHN Shortness of Breath 01/01/20 10:00 01/06/20 09:59 Albuterol/ Ipratropium (Albuterol/ Ipratropium) 3 ml Q6HRT HHN 01/01/20 01:00 01/06/20 00:59 01/01/20 13:34 Ascorbic Acid (Vitamin C) 500 mg DAILY ORAL 01/01/20 09:00 01/31/20 08:59 01/01/20 08:47 Clonazepam (KlonoPIN) 1 mg Q6H ORAL 12/31/19 21:00 01/07/20 20:59 01/01/20 02:56 Dextrose 1,000 ml @ 50 mls/hr Q20H IV 01/01/20 11:00 01/31/20 10:59 01/01/20 10:43 Docusate Sodium (Colace) 100 mg DAILY ORAL 01/01/20 09:00 01/31/20 08:59 Gabapentin (Neurontin) 300 mg EVERY 8 HOURS ORAL 12/31/19 22:00 01/30/20 21:59 01/01/20 14:35 Levetiracetam (Keppra) 1,000 mg DAILY ORAL 01/01/20 09:00 01/31/20 08:59 01/01/20 08:46 Levothyroxine Sodium (Synthroid) 75 mcg DAILY ORAL 01/01/20 09:00 01/31/20 08:59 01/01/20 08:47 Loperamide HCl (Imodium) 2 mg Q12HR PRN ORAL Diarrhea 12/31/19 21:15 01/30/20 21:14 Magnesium Hydroxide (Mom) 30 ml DAILY ORAL 01/01/20 09:00 01/31/20 08:59 Multivitamins Therapeutic (Therapeutic Multivitamin) 1 ea DAILY ORAL 01/01/20 09:00 01/31/20 08:59 01/01/20 08:46 Ondansetron HCl (Zofran) 4 mg Q6H PRN ORAL Nausea & Vomiting 12/31/19 21:00 01/30/20 20:59 Pantoprazole (Protonix) 40 mg EVERY 12 HOURS IVP 01/01/20 09:00 01/31/20 08:59 01/01/20 09:14 Piperacillin Sod/ Tazobactam Sod 3.375 gm/Sodium Chloride 110 ml @ 27.5 mls/hr Q8H IVPB 01/01/20 11:00 01/08/20 10:59 01/01/20 11:56 Rifaximin (Xifaxan) 550 mg TWICE A DAY ORAL 01/01/20 09:00 01/08/20 08:59 01/01/20 08:47 Thiamine HCl (Vitamin B1) 100 mg DAILY ORAL 01/01/20 09:00 01/31/20 08:59 01/01/20 08:46 Tramadol HCl (Ultram) 50 mg Q6H PRN ORAL For Pain (4-10) 12/31/19 21:15 01/07/20 20:59 Vancomycin HCl (Vanco pharmacy to dose) 1 ea DAILY PRN MISC Per rx protocol 01/01/20 09:15 9/16/20 09:14 Vancomycin HCl 750 mg/Dextrose 275 ml @ 183.333 mls/hr Q24H IVPB 01/02/20 08:00 01/07/20 07:59 Assessment/Plan Problem List: (1) Pneumonia ICD Codes: J18.9 - Pneumonia, unspecified organism SNOMED: 076534990 (2) Sepsis Assessment & Plan: leukocytosis anemia lactic acidosis agree with GI recommend EGD planned for 12/31 hold feeding for now trend h/h monitor for bleeding no acute hemorrhage will be available in event needs exploration for hemostasis prbc as per heme thank you will follow with recs ICD Codes: A41.9 - Sepsis, unspecified organism SNOMED: 57839294 (3) GI bleed ICD Codes: K92.2 - Gastrointestinal hemorrhage, unspecified SNOMED: 84679893 (4) G tube feedings ICD Codes: Z93.1 - Gastrostomy status SNOMED: 472387340, 419831591, [id number] [place] Jan 01, 2020 14:45
--- NOTE | 2020-01-01 15:32 | Diagnostic Imaging Report ---
Indication: Bilateral leg edema. Shortness of breath Technique: Grayscale and duplex images of the bilateral lower extremity veins Comparison: Findings: Bilaterally, grayscale and duplex images demonstrate no evidence of intraluminal thrombus. Normal phasic Doppler waveforms, demonstrating normal augmentation response and no evidence of valvular insufficiency. Greater saphenous vein(s) and tibial veins are patent. Normal compressibility. Impression: Negative for evidence of lower extremity deep venous thrombosis bilaterally
[2020-01-01] MEDS ORDERED: Tubing Blood Filter IV ONE (17:54)
[2020-01-01] MEDS ORDERED: NS 275ml ONE ×2 (17:54→18:08)
[2020-01-01] MEDS ORDERED: D5W 550ml IV ONE (18:08)
[2020-01-01] MEDS ORDERED: D5W 275ml ONE (18:08)
[2020-01-01] MEDS ORDERED: Tubing IV Secondary IV ONE (18:08)
[2020-01-01] MEDS ORDERED: NEURONTIN300 MG ORAL (19:12)
[2020-01-01] MEDS ORDERED: ACIDOPHILUS1 EAC6 GT (19:12)
[2020-01-01] MEDS ORDERED: KEPPRA LIQ100 MG/1 M GT (19:12)
[2020-01-01] MEDS ORDERED: ATORVASTATIN CA10 MG GT (19:12)
[2020-01-01] MEDS ORDERED: TEA TREE OIL30 ML TP (19:12)
[2020-01-01] MEDS ORDERED: ACETAMINOPHEN325 M1 GT (19:12)
[2020-01-01] MEDS ORDERED: ALBUTEROL SULF8.5 G1 INH ×2 (19:12)
[2020-01-02] VITALS (13 sets, daily range): BP systolic 88–113; BP diastolic 48–69
[2020-01-02] MEDS: Albuterol/Ipratropium 3ml neb HHN SCH ×4 (01:15→19:01)
[2020-01-02] MEDS: Piperacillin/Tazobactam 3.375 GM in NS 110 ML IVPB SCH ×3 (02:48→20:02)
--- NOTE | 2020-01-02 04:15 | Consultation ---
DATE OF CONSULTATION: CONSULTING PHYSICIAN: Rhonda Maxwell M.D. HISTORY OF PRESENT ILLNESS: This is a 39-year-old female with a history of multiple medical history who has been admitted to the hospital for medical stabilization. The patient has chronic encephalopathy and is trach and vent dependent. The patient has waxing and waning consciousness, episodes of agitation, was unable to be engaged during the evaluation. PAST PSYCHIATRIC HISTORY: Unknown. PAST MEDICAL HISTORY: Pneumonia, G-tube feeding, GI bleeding. ALLERGIES: Compazine, lorazepam. SUBSTANCE ABUSE HISTORY: No known history of illicit drug use or alcohol. MENTAL STATUS EXAMINATION: The patient has waxing and waning consciousness. Affect is flat. Thought process, there is a paucity of thought content. Thought content, no suicidal or homicidal ideation. Cognition is impaired. Insight and judgment is impaired. ASSESSMENT: Josephine I Chronic encephalopathy. Agitation. Josephine II Deferred. Josephine III As above. Josephine IV Low. Josephine V 20. PLAN: 1. Haldol IM as needed. 2. Discussed with the nurse. Rhonda Maxwell M.D. DR: PARIS JOB#: [id number] CC:
[2020-01-02 05:08] LABS: HEMATOCRIT 23.8 % (37.0-47.0); HEMOGLOBIN 7.9 G/DL (12.0-16.0); MEAN CORPUSCULAR VOLUME 92 FL (80-99); PLATELET COUNT 159 K/UL (150-450); RED BLOOD COUNT 2.59 M/UL (4.20-5.40); RED CELL DISTRIBUTION WIDTH 14.5 % (11.6-14.8); WHITE BLOOD COUNT 15.4 K/UL (4.8-10.8)
[2020-01-02 05:37] LABS: ALANINE AMINOTRANSFERASE 129 U/L (12-78); ALBUMIN 2.2 G/DL (3.4-5.0); ALBUMIN/GLOBULIN RATIO 0.6 (1.0-2.7); ALKALINE PHOSPHATASE 111 U/L (46-116); ANION GAP 6 mmol/L (5-15); ASPARTATE AMINO TRANSFERASE 83 U/L (15-37); BILIRUBIN,TOTAL 0.4 MG/DL (0.2-1.0); BLOOD UREA NITROGEN 22 mg/dL (7-18); CALCIUM 8.8 MG/DL (8.5-10.1); CARBON DIOXIDE 30 MMOL/L (21-32); CHLORIDE 108 MMOL/L (98-107); CHOLESTEROL < 50 MG/DL (< 200); CREATININE 0.5 MG/DL (0.55-1.30); HDL CHOLESTEROL 23 MG/DL (40-60); SODIUM 144 MMOL/L (136-145); TRIGLYCERIDES 71 MG/DL (30-150)
[2020-01-02 06:33] LABS: GAMMA GLUTAMYL TRANSPEPTIDASE 131 U/L (5-85); PHOSPHORUS 2.2 MG/DL (2.5-4.9)
--- NOTE | 2020-01-02 06:45 | Consultation ---
History of Present Illness General Date patient seen: Jan 02, 2020 Time patient seen: 10:00 Chief Complaint: Abnormal Labs Referring physician: Dr Cortes Reason for Consultation: Sepsis, c/f scabies Present Illness HPI 39yo F with h/o hepatic encephalopathy s/p trach/PEG, who p/w elevated BUN and low Hg, c/f recurrent GIB, also with fever, leukocytosis and c/f Scabies for which ID is consulted. Pt is on the vent, not interactive. History obtained via chart review Allergies: Coded Allergies: CARBAMAZEPINE (Verified Allergy, Unknown, 12/31/19) LORAZEPAM (Verified Allergy, Unknown, 12/31/19) Medication History Scheduled Albuterol Sulfate* (Albuterol Sulfate Hfa*), 2 PUFF INH Q6H, (Reported) Albuterol Sulfate* (Albuterol Sulfate Hfa*), 2 PUFF INH Q3H, (Reported) Ascorbic Acid* (Vitamin C*), 500 MG GT DAILY, (Reported) Atorvastatin Calcium* (Lipitor*), 10 MG GT BEDTIME, (Reported) Bumetanide* (Bumetanide*), 0.5 MG GT DAILY, (Reported) Clonazepam* (Klonopin*), 1 MG GT TID, (Reported) Docusate Sodium* (Colace*), 100 MG GT DAILY, (Reported) Gabapentin (Neurontin), 300 MG ORAL BID, (Reported) Labetalol Hcl* (Normodyne*), 200 MG GT Q6HR, (Reported) Lactobacillus Acidophilus (Acidophilus), 1 EACH GT BID, (Reported) Levetiracetam (Keppra), 1,000 MG GT DAILY, (Reported) Levothyroxine Sodium* (Levothyroxine Sodium*), 75 MCG GT DAILY, (Reported) Multivitamin With Minerals (Multivitamins With Minerals*), 1 TAB GT DAILY, ( Reported) Pantoprazole* (Protonix*), 40 MG GT BID, (Reported) Rifaximin* (Xifaxan*), 550 MG GT TWICE A DAY, (Reported) Tea Tree Oil (Tea Tree Oil), Unknown Dose TP DAILY, (Reported) Thiamine Hcl* (Vitamin B-1*), 100 MG GT DAILY, (Reported) Scheduled PRN Acetaminophen* (Acetaminophen 325MG Tablet*), 650 MG GT Q4H PRN for Temp >100.5, (Reported) Acetaminophen* (Acetaminophen 325MG Tablet*), 650 MG GT Q4H PRN for For Pain, ( Reported) Magnesium Hydroxide* (Milk Of Magnesia*), 30 ML GT DAILY PRN for Constipation, ( Reported) Ondansetron* (Zofran*), 4 MG GT Q6H PRN for Nausea & Vomiting, (Reported) Tramadol Hcl* (Ultram*), 50 MG GT Q4HR PRN for For Pain, (Reported) Discontinued Medications Atorvastatin Calcium* (Atorvastatin Calcium*), 10 MG ORAL BEDTIME, (Reported) Discontinued Reason: Prescription changed Chlorhexidine Gluconate* (Hibiclens*), 118 ML TP, (Reported) Discontinued Reason: MD discontinued med Cran/Vitc/Mannose/Inulin/Brom (Uti-Stat Liquid), 3,875 MG PO, (Reported) Discontinued Reason: MD discontinued med Gabapentin* (Neurontin*), 300 MG ORAL EVERY 8 HOURS, (Reported) Discontinued Reason: Prescription changed Ipratropium [place] (Atrovent Hfa), 17 GM IH, (Reported) Discontinued Reason: MD discontinued med Levetiracetam (Keppra), 1,000 MG ORAL DAILY, (Reported) Discontinued Reason: Prescription changed Loperamide Hcl (Loperamide), 2 MG PO, (Reported) Discontinued Reason: MD discontinued med Pcrisamsirmo-Tltk-Fyxnahon,Iso (Zosyn 3.375 Gm Pre Mix-Bag), 3.375 GM IVPB EVERY 8 HOURS, (Reported) Discontinued Reason: MD discontinued med Vitamin A & D (Vitamin A & D Ointment), 454 GM TOP, (Reported) Discontinued Reason: Pt had allergic rxn Vitamin E* (Vitamin E*), 400 UNIT PO DAILY, (Reported) Discontinued Reason: MD discontinued med [pancrealipase], 1,200 GT FIVE TIMES A DAY PRN for supplement, (Reported) Discontinued Reason: MD discontinued med [prostat liquid], (Reported) Discontinued Reason: MD discontinued med Patient History History Provided By: Medical Record Healthcare decision maker Resuscitation status Advanced Directive on File Review of Systems ROS Narrative Unable to assess 2/2 pt condition Physical Exam Physical Exam Narrative Gen: NAD on vent, thin young woman HEENT: Trach CV: RRR Pulm: CTAB anteriorly Abd: Soft, NTND, +PEG Neuro: Not interactive Last 24 Hour Vital Signs Date Time Temp Pulse Resp B/P (MAP) Pulse Ox O2 Delivery O2 Flow Rate FiO2 01/02/20 05:17 58 16 30 01/02/20 04:00 40 01/02/20 04:00 Mechanical Ventilator 01/02/20 04:00 97.5 79 18 102/58 (73) 99 01/02/20 03:30 57 17 30 01/02/20 03:30 57 01/02/20 01:15 56 18 100 Mechanical Ventilator 30 62 19 30 01/02/20 00:00 40 01/02/20 00:00 Mechanical Ventilator 01/02/20 00:00 97.3 56 18 100/69 (79) 100 01/01/20 23:32 54 01/01/20 23:30 54 16 30 01/01/20 20:35 65 18 30 01/01/20 20:00 Mechanical Ventilator 01/01/20 20:00 97.4 64 18 106/63 (77) 100 01/01/20 20:00 40 01/01/20 19:34 64 01/01/20 19:30 64 17 100 Mechanical Ventilator 30 70 19 30 01/01/20 18:00 98.7 85 18 112/68 (83) 98 01/01/20 16:55 66 19 30 01/01/20 16:00 40 01/01/20 16:00 92 01/01/20 16:00 98.4 88 18 108/67 (81) 98 01/01/20 16:00 92 01/01/20 16:00 Mechanical Ventilator 01/01/20 15:10 89 23 30 01/01/20 14:37 68 15 30 01/01/20 13:44 67 14 100 Mechanical Ventilator 30 71 14 30 01/01/20 12:00 70 01/01/20 12:00 30 01/01/20 12:00 97.8 82 18 105/61 (76) 98 01/01/20 12:00 Mechanical Ventilator 01/01/20 10:45 75 16 30 01/01/20 10:00 98.7 01/01/20 08:50 88 15 30 01/01/20 08:30 99 100/70 01/01/20 08:00 114 01/01/20 08:00 Mechanical Ventilator 01/01/20 08:00 30 01/01/20 08:00 101.5 99 18 100/70 (80) 98 01/01/20 07:12 116 15 100 Mechanical Ventilator 30 112 15 30 Intake and Output 01/01/20 01/02/20 19:00 07:00 Intake Total 1460.0 ml 700.5 ml Output Total 600 ml 300 ml Balance 860.0 ml 400.5 ml IV Total 1360.0 ml 700.5 ml Other 100 ml Output Urine Total 600 ml 300 ml Laboratory Tests Test 01/02/20 03:10 White Blood Count 15.4 K/UL (4.8-10.8) H Red Blood Count 2.59 M/UL (4.20-5.40) L Hemoglobin 7.9 G/DL (12.0-16.0) L Hematocrit 23.8 % (37.0-47.0) L Mean Corpuscular Volume 92 FL (80-99) Mean Corpuscular Hemoglobin 30.6 PG (27.0-31.0) Mean Corpuscular Hemoglobin Concent 33.2 G/DL (32.0-36.0) Red Cell Distribution Width 14.5 % (11.6-14.8) Platelet Count 159 K/UL (150-450) Mean Platelet Volume 7.9 FL (6.5-10.1) Neutrophils (%) (Auto) % (45.0-75.0) Lymphocytes (%) (Auto) % (20.0-45.0) Monocytes (%) (Auto) % (1.0-10.0) Eosinophils (%) (Auto) % (0.0-3.0) Basophils (%) (Auto) % (0.0-2.0) Neutrophils % (Manual) Pending Lymphocytes % (Manual) Pending Platelet Estimate Pending Platelet Morphology Pending Sodium Level 144 MMOL/L (136-145) Potassium Level 3.0 MMOL/L (3.5-5.1) L Chloride Level 108 MMOL/L (98-107) H Carbon Dioxide Level 30 MMOL/L (21-32) Anion Gap 6 mmol/L (5-15) Blood Urea Nitrogen 22 mg/dL (7-18) H Creatinine 0.5 MG/DL (0.55-1.30) L Estimat Glomerular Filtration Rate > 60 mL/min (>60) Glucose Level 89 MG/DL (74-106) Hemoglobin A1c 4.8 % (4.3-6.0) Uric Acid 3.3 MG/DL (2.6-7.2) Calcium Level 8.8 MG/DL (8.5-10.1) Phosphorus Level 2.2 MG/DL (2.5-4.9) L Magnesium Level 1.8 MG/DL (1.8-2.4) Total Bilirubin 0.4 MG/DL (0.2-1.0) Gamma Glutamyl Transpeptidase 131 U/L (5-85) H Aspartate Amino Transf (AST/SGOT) 83 U/L (15-37) H Alanine Aminotransferase (ALT/SGPT) 129 U/L (12-78) H Alkaline Phosphatase 111 U/L (46-116) C-Reactive Protein, Quantitative < 0.4 mg/dL (0.00-0.90) Pro-B-Type Natriuretic Peptide 441 pg/mL (0-125) H Total Protein 5.8 G/DL (6.4-8.2) L Albumin 2.2 G/DL (3.4-5.0) L Globulin 3.6 g/dL Albumin/Globulin Ratio 0.6 (1.0-2.7) L Triglycerides Level 71 MG/DL (30-150) Cholesterol Level < 50 MG/DL (< 200) LDL Cholesterol 17 mg/dL (<100) HDL Cholesterol 23 MG/DL (40-60) L Cholesterol/HDL Ratio 2.2 (3.3-4.4) L Vitamin B12 Level 1155 PG/ML (193-986) H Folate 75.0 NG/ML (8.6-58.9) H Thyroid Stimulating Hormone (TSH) 3.525 uiU/mL (0.358-3.740) Height (Feet): 5 Height (Inches): 1.00 Weight (Pounds): 82 Medications Current Medications Medications (Trade) Dose Ordered Sig/Villa Route PRN Reason Start Time Stop Time Status Last Admin Dose Admin Acetaminophen (Tylenol) 650 mg Q6H PRN GT Temp >100.5 01/01/20 11:00 01/31/20 10:59 Albuterol/ Ipratropium (Albuterol/ Ipratropium) 3 ml Q4HRT PRN HHN Shortness of Breath 01/01/20 10:00 01/06/20 09:59 Albuterol/ Ipratropium (Albuterol/ Ipratropium) 3 ml Q6HRT HHN 01/01/20 01:00 01/06/20 00:59 01/02/20 01:15 Ascorbic Acid (Vitamin C) 500 mg DAILY ORAL 01/01/20 09:00 01/31/20 08:59 01/01/20 08:47 Clonazepam (KlonoPIN) 1 mg Q6H ORAL 12/31/19 21:00 01/07/20 20:59 01/01/20 20:07 Dextrose 1,000 ml @ 50 mls/hr Q20H IV 01/01/20 11:00 01/31/20 10:59 01/01/20 22:52 Docusate Sodium (Colace) 100 mg DAILY ORAL 01/01/20 09:00 01/31/20 08:59 Gabapentin (Neurontin) 300 mg EVERY 8 HOURS ORAL 12/31/19 22:00 01/30/20 21:59 01/02/20 05:02 Haloperidol Lactate (Haldol) 5 mg Q6H PRN IM Agitation 01/01/20 23:30 02/15/20 23:29 Levetiracetam (Keppra) 1,000 mg DAILY ORAL 01/01/20 09:00 01/31/20 08:59 01/01/20 08:46 Levothyroxine Sodium (Synthroid) 75 mcg DAILY ORAL 01/01/20 09:00 01/31/20 08:59 01/01/20 08:47 Loperamide HCl (Imodium) 2 mg Q12HR PRN ORAL Diarrhea 12/31/19 21:15 01/30/20 21:14 Magnesium Hydroxide (Mom) 30 ml DAILY ORAL 01/01/20 09:00 01/31/20 08:59 Multivitamins Therapeutic (Therapeutic Multivitamin) 1 ea DAILY ORAL 01/01/20 09:00 01/31/20 08:59 01/01/20 08:46 Ondansetron HCl (Zofran) 4 mg Q6H PRN ORAL Nausea & Vomiting 12/31/19 21:00 01/30/20 20:59 Pantoprazole (Protonix) 40 mg EVERY 12 HOURS IVP 01/01/20 09:00 01/31/20 08:59 01/01/20 20:07 Piperacillin Sod/ Tazobactam Sod 3.375 gm/Sodium Chloride 110 ml @ 27.5 mls/hr Q8H IVPB 01/01/20 11:00 01/08/20 10:59 01/02/20 02:48 Rifaximin (Xifaxan) 550 mg TWICE A DAY ORAL 01/01/20 09:00 01/08/20 08:59 01/01/20 17:00 Thiamine HCl (Vitamin B1) 100 mg DAILY ORAL 01/01/20 09:00 01/31/20 08:59 01/01/20 08:46 Tramadol HCl (Ultram) 50 mg Q6H PRN ORAL For Pain (4-10) 12/31/19 21:15 01/07/20 20:59 Vancomycin HCl (Vanco pharmacy to dose) 1 ea DAILY PRN MISC Per rx protocol 01/01/20 09:15 01/31/20 09:14 Vancomycin HCl 750 mg/Dextrose 275 ml @ 183.333 mls/hr Q24H IVPB 01/02/20 08:00 01/07/20 07:59 Assessment/Plan Diagnosis [place] I: 39yo F with: Fever to 101.5 Possible pna on CXR Leukocytosis to 24, improving Recurrent GIB GPC bacteremia 12/30 BCx +GPCs in clusters 12/30 UA neg, COVID rapid Ag neg 12/30 CXR 1. Density overlying the bilateral lung apices. May represent pleural thickening, multifocal airspace opacities, versus summation artifact. Possible Scabies SP tx w/ Permethrin and Ivermectin 12/31 R/o DVT: None on US 12/30 Recurrent GIBs, FOBT+ Hepatic encephalopathy, chronic S/p Trach/PEG Resides at SNF Plan: Cont vanco #2 given GPCs in BCx Cont empiric Zosyn #2 for now Check MRSA nares For possible Scabies, can repeat ivermectin at day 7 (01/07) to ensure complete tx Repeat BCx today and tomorrow morning F/u BCx Trend WBC Monitor CBC/CMP Monitor resp status Monitor temp and hemodynamics D/w RN Thank you for this consult. [facility] will continue to follow. Missy Rouse M.D. Jan 02, 2020 06:45
--- NOTE | 2020-01-02 06:46 | General Progress Note ---
Assessment/Plan Assessment/Plan: Covering Dr. Bishop Assess/Recs # Anemia rule out underlying gi bleed --> Dr. Carrillo has been consulted --> trend hgb 7-->7.4-->7.9 --> anemia panel ordered --> prn transfusion --> protonix started # Leukocytosis is likely related to pna on imaging --> abx has been started --> if wbc worsens, consider abx vanc/zosyn --> smear is noted --> wbc 25-->15 # Sepsis --> on abx for pna # Pneumonia --> pulm, Dr. 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 marketing database consultant care, will follow Subjective Respiratory: Denies: no symptoms, cough, orthopnea, shortness of breath, SOB with excertion, SOB at rest, sputum, stridor, wheezing, other Allergies: Coded Allergies: CARBAMAZEPINE (Verified Allergy, Unknown, 12/31/19) LORAZEPAM (Verified Allergy, Unknown, 12/31/19) All Systems: reviewed and negative except above Subjective 01/01 altered, trach, no bleedin wbc improved on abx, seen by gi Objective Last 24 Hour Vital Signs Date Time Temp Pulse Resp B/P (MAP) Pulse Ox O2 Delivery O2 Flow Rate FiO2 01/02/20 05:17 58 16 30 01/02/20 04:00 40 01/02/20 04:00 Mechanical Ventilator 01/02/20 04:00 97.5 79 18 102/58 (73) 99 01/02/20 03:30 57 17 30 01/02/20 03:30 57 01/02/20 01:15 56 18 100 Mechanical Ventilator 30 62 19 30 01/02/20 00:00 40 01/02/20 00:00 Mechanical Ventilator 01/02/20 00:00 97.3 56 18 100/69 (79) 100 01/01/20 23:32 54 01/01/20 23:30 54 16 30 01/01/20 20:35 65 18 30 01/01/20 20:00 Mechanical Ventilator 01/01/20 20:00 97.4 64 18 106/63 (77) 100 01/01/20 20:00 40 01/01/20 19:34 64 01/01/20 19:30 64 17 100 Mechanical Ventilator 30 70 19 30 01/01/20 18:00 98.7 85 18 112/68 (83) 98 01/01/20 16:55 66 19 30 01/01/20 16:00 40 01/01/20 16:00 92 01/01/20 16:00 98.4 88 18 108/67 (81) 98 01/01/20 16:00 92 01/01/20 16:00 Mechanical Ventilator 01/01/20 15:10 89 23 30 01/01/20 14:37 68 15 30 01/01/20 13:44 67 14 100 Mechanical Ventilator 30 71 14 30 01/01/20 12:00 70 01/01/20 12:00 30 01/01/20 12:00 97.8 82 18 105/61 (76) 98 01/01/20 12:00 Mechanical Ventilator 01/01/20 10:45 75 16 30 01/01/20 10:00 98.7 01/01/20 08:50 88 15 30 01/01/20 08:30 99 100/70 01/01/20 08:00 114 01/01/20 08:00 Mechanical Ventilator 01/01/20 08:00 30 01/01/20 08:00 101.5 99 18 100/70 (80) 98 01/01/20 07:12 116 15 100 Mechanical Ventilator 30 112 15 30 Intake and Output 01/01/20 01/02/20 19:00 07:00 Intake Total 1460.0 ml 700.5 ml Output Total 600 ml 300 ml Balance 860.0 ml 400.5 ml IV Total 1360.0 ml 700.5 ml Other 100 ml Output Urine Total 600 ml 300 ml Laboratory Tests 01/02/20 03:10: White Blood Count 15.4H, Red Blood Count 2.59L, Hemoglobin 7.9L, Hematocrit 23.8L, Mean Corpuscular Volume 92, Mean Corpuscular Hemoglobin 30.6, Mean Corpuscular Hemoglobin Concent 33.2, Red Cell Distribution Width 14.5, Platelet Count 159, Mean Platelet Volume 7.9, Neutrophils (%) (Auto) , Lymphocytes (%) ( Auto) , Monocytes (%) (Auto) , Eosinophils (%) (Auto) , Basophils (%) (Auto) , Neutrophils % (Manual) [Pending], Lymphocytes % (Manual) [Pending], Platelet Estimate [Pending], Platelet Morphology [Pending], Sodium Level 144, Potassium Level 3.0L, Chloride Level 108H, Carbon Dioxide Level 30, Anion Gap 6, Blood Urea Nitrogen 22H, Creatinine 0.5L, Estimat Glomerular Filtration Rate > 60, Glucose Level 89, Hemoglobin A1c 4.8, Uric Acid 3.3, Calcium Level 8.8, Phosphorus Level 2.2L, Magnesium Level 1.8, Total Bilirubin 0.4, Gamma Glutamyl Transpeptidase 131H, Aspartate Amino Transf (AST/SGOT) 83H, Alanine Aminotransferase (ALT/SGPT) 129H, Alkaline Phosphatase 111, C-Reactive Protein, Quantitative < 0.4, Pro-B-Type Natriuretic Peptide 441H, Total Protein 5.8L, Albumin 2.2L, Globulin 3.6, Albumin/Globulin Ratio 0.6L, Triglycerides Level 71 , Cholesterol Level < 50, LDL Cholesterol 17, HDL Cholesterol 23L, Cholesterol/ HDL Ratio 2.2L, Vitamin B12 Level 1155H, Folate 75.0H, Thyroid Stimulating Hormone (TSH) 3.525 Height (Feet): 5 Height (Inches): 1.00 Weight (Pounds): 82 Objective Vital Signs General Appearance: ++ cachectic, chronically ill. ++ trashing HEENT: normocephalic, atraumatic ++ trach Resp: other - Ventilator dependent. vent Cardiovascular: regular rate, rhythm, no edema Gastrointestinal: gtube in place, without erythema Rectal: other - Hemoccult positive [place]: back normal, gait/station normal, non-tender Lymphatic: no adenopathy Baltazar Cortes MD Jan 02, 2020 06:46
--- NOTE | 2020-01-02 07:22 | Anethesia Preoperative Eval ---
Anesthesia Pre-op PMH/ROS General Date of Evaluation: Jan 02, 2020 Time of Evaluation: 07:22 Anesthesiologist: allison ASA Score: ASA 4 Mallampati Score Class I : Soft palate, uvula, fauces, pillars visible Class II: Soft palate, uvula, fauces visible Class III: Soft palate, base of uvula visible Class IV: Only hard plate visible Mallampati Classification: Class II Surgeon: silver Diagnosis: gi bleed Surgical Procedure: egd Anesthesia History: none Social History: drug use Family History: no anesthesia problems Allergies: Coded Allergies: CARBAMAZEPINE (Verified Allergy, Unknown, 12/31/19) LORAZEPAM (Verified Allergy, Unknown, 12/31/19) Medications: see eMAR Patient NPO?: Yes Past Medical History Cardiovascular: Reports: [place] Pulmonary: Reports: other - tracheostomy, pneumonia, dyspnea, aspiration Gastrointestinal/Genitourinary: Reports: other - cirrhosis, gi bleed, ulcer Neurologic/Psychiatric: Reports: other - aphasia, seizure dz, substance abuse, schizophrenia Hematology/Immune: Reports: anemia, other - sepsis Anesthesia Pre-op Phys. Exam Physician Exam Last Vital Signs Date Time Temp Pulse Resp B/P (MAP) Pulse Ox O2 Delivery O2 Flow Rate FiO2 01/02/20 05:17 58 16 30 01/02/20 04:00 Mechanical Ventilator 01/02/20 04:00 97.5 102/58 (73) 99 12/31/19 20:30 5.0 Constitutional: NAD Neurologic: CN 2-12 intact Cardiovascular: RRR Respiratory: other - tracheostomy Gastrointestinal: S/NT/ND Airway Exam Mallampati Score: Class II MO: limited Neck: tracheostomy TMD: 2fb Teeth: missing, broken Anesthesia Pre-op A/P Labs Microbiology Date/Time Source Procedure Growth Status 12/31/19 17:15 Blood Blood Culture - Preliminary NO GROWTH AFTER 24 HOURS Resulted 12/31/19 17:00 Nasopharynx SARS-CoV-2 RdRp Gene Assay - Final Complete Hematology Test 01/02/20 03:10 White Blood Count 15.4 K/UL (4.8-10.8) H Red Blood Count 2.59 M/UL (4.20-5.40) L Hemoglobin 7.9 G/DL (12.0-16.0) L Hematocrit 23.8 % (37.0-47.0) L Mean Corpuscular Volume 92 FL (80-99) Mean Corpuscular Hemoglobin 30.6 PG (27.0-31.0) Mean Corpuscular Hemoglobin Concent 33.2 G/DL (32.0-36.0) Red Cell Distribution Width 14.5 % (11.6-14.8) Platelet Count 159 K/UL (150-450) Mean Platelet Volume 7.9 FL (6.5-10.1) Neutrophils (%) (Auto) % (45.0-75.0) Lymphocytes (%) (Auto) % (20.0-45.0) Monocytes (%) (Auto) % (1.0-10.0) Eosinophils (%) (Auto) % (0.0-3.0) Basophils (%) (Auto) % (0.0-2.0) Neutrophils % (Manual) Pending Lymphocytes % (Manual) Pending Platelet Estimate Pending Platelet Morphology Pending Chemistry Test 01/02/20 03:10 Sodium Level 144 MMOL/L (136-145) Potassium Level 3.0 MMOL/L (3.5-5.1) L Chloride Level 108 MMOL/L (98-107) H Carbon Dioxide Level 30 MMOL/L (21-32) Anion Gap 6 mmol/L (5-15) Blood Urea Nitrogen 22 mg/dL (7-18) H Creatinine 0.5 MG/DL (0.55-1.30) L Estimat Glomerular Filtration Rate > 60 mL/min (>60) Glucose Level 89 MG/DL (74-106) Hemoglobin A1c 4.8 % (4.3-6.0) Uric Acid 3.3 MG/DL (2.6-7.2) Calcium Level 8.8 MG/DL (8.5-10.1) Phosphorus Level 2.2 MG/DL (2.5-4.9) L Magnesium Level 1.8 MG/DL (1.8-2.4) Total Bilirubin 0.4 MG/DL (0.2-1.0) Gamma Glutamyl Transpeptidase 131 U/L (5-85) H Aspartate Amino Transf (AST/SGOT) 83 U/L (15-37) H Alanine Aminotransferase (ALT/SGPT) 129 U/L (12-78) H Alkaline Phosphatase 111 U/L (46-116) C-Reactive Protein, Quantitative < 0.4 mg/dL (0.00-0.90) Pro-B-Type Natriuretic Peptide 441 pg/mL (0-125) H Total Protein 5.8 G/DL (6.4-8.2) L Albumin 2.2 G/DL (3.4-5.0) L Globulin 3.6 g/dL Albumin/Globulin Ratio 0.6 (1.0-2.7) L Triglycerides Level 71 MG/DL (30-150) Cholesterol Level < 50 MG/DL (< 200) LDL Cholesterol 17 mg/dL (<100) HDL Cholesterol 23 MG/DL (40-60) L Cholesterol/HDL Ratio 2.2 (3.3-4.4) L Vitamin B12 Level 1155 PG/ML (193-986) H Folate 75.0 NG/ML (8.6-58.9) H Thyroid Stimulating Hormone (TSH) 3.525 uiU/mL (0.358-3.740) Risk Assessment & Plan Assessment: asa4 Plan: mac Status Change Before Surgery: No Pre-Antibiotics Drug: Mini Gill MD Jan 02, 2020 07:22
[2020-01-02] MEDS ORDERED: Vancomycin 750mg/D5W 275ml IVPB SCH ×2 (08:00)
[2020-01-02] MEDS: Pantoprazole Inj IVP SCH ×2 (08:44→20:02)
[2020-01-02] MEDS: Multivitamin w/Minerals tab ORAL SCH (08:44)
[2020-01-02] MEDS: Thiamine 100mg tab ORAL SCH (08:44)
[2020-01-02] MEDS: Ascorbic Acid 500mg tab ORAL SCH (08:44)
[2020-01-02] MEDS: Milk of Magnesia 30ml Ud ORAL SCH (08:45)
[2020-01-02] MEDS: Docusate 100mg cap ORAL SCH (08:45)
[2020-01-02] MEDS ORDERED: Potassium Phosphate 20 MM in NS 275 ML IV SCH ×2 (09:00→12:00)
--- NOTE | 2020-01-02 09:00 | Consultation ---
DATE OF CONSULTATION: 01/01/2020 CARDIOLOGY CONSULT CONSULTING PHYSICIAN: Jesus Medina M.D. REASON FOR CONSULTATION: Hypotension. HISTORY OF PRESENT ILLNESS: This is a 39-year-old female who is trach and vent dependent and has hepatic encephalopathy. She was admitted to the hospital with acute renal failure yesterday and rectal bleeding. Low blood pressure readings have prompted this consultation. PAST MEDICAL HISTORY: Respiratory failure with tracheostomy, hepatic encephalopathy, chronic kidney disease, history of cerebrovascular accident, seizure disorder, and hypertension. ALLERGIES: Noted to include lorazepam and carbamazepine. SOCIAL HISTORY: Not known. FAMILY HISTORY: Not obtainable. PHYSICAL EXAMINATION: VITAL SIGNS: Blood pressure 86/58, heart rate 112, respiratory rate 23, afebrile. HEENT: Trach site with moderate secretions. LUNGS: With bilateral rhonchi. CARDIAC: Regular rhythm and rate. Normal S1, S2 with no murmur. ABDOMEN: Soft with G-tube. No hepatomegaly. EXTREMITIES: With no edema. LABORATORY DATA: White count on admission 24.7, today is 16, hemoglobin 7.4, sodium 151, potassium 2.9, bicarb 30, BUN 47, and creatinine 0.6, and pro-natriuretic peptide 597. IMPRESSION: 1. Hypotension due to sepsis and shock as well as hypovolemia. 2. Dehydration. 3. Hyponatremia. 4. Acute renal failure. 5. GI bleeding. PLAN: 1. Transfuse, hold all antihypertensive. 2. Hydrate with hypotonic fluids and antimicrobials. Jesus Medina M.D. DR: Amanda JOB#: [id number] CC:
--- NOTE | 2020-01-02 09:19 | Pre-Procedure Note/Attestation ---
Pre-Procedure Note/Attestation Complete Prior to Procedure Procedure Narrative: egd Indications for Procedure Pre-Operative Diagnosis: GIB Attestation I attest that I discussed the nature of the procedure; its benefits; risks and complications; and alternatives (and the risks and benefits of such alternatives ), prior to the procedure, with the patient (or the patient's legal patient care representative). I attest that, if there was a reasonable possibility of needing a blood transfusion, the patient (or the patient's legal patient care representative) was given the [facility] standardized written summary, pursuant to the [place] Blood Safety Act ([place] Health and Safety Code # 1645, as amended). I attest that I re-evaluated the patient just prior to the surgery and that there has been no change in the patient's H&P, except as documented below: Satish Carrillo MD Jan 02, 2020 09:19
[2020-01-02 09:31] LABS: HEMATOCRIT 24.6 % (37.0-47.0); HEMOGLOBIN 7.9 G/DL (12.0-16.0); MEAN CORPUSCULAR VOLUME 93 FL (80-99); PLATELET COUNT 164 K/UL (150-450); RED BLOOD COUNT 2.64 M/UL (4.20-5.40); RED CELL DISTRIBUTION WIDTH 14.5 % (11.6-14.8); WHITE BLOOD COUNT 16.1 K/UL (4.8-10.8)
--- NOTE | 2020-01-02 09:47 | Pulmonology Progress Note ---
Ivanna Mora EXTRACTION SUPERVISOR 01/02/20 0947: Subjective ROS Limited/Unobtainable: No Allergies: Coded Allergies: CARBAMAZEPINE (Verified Allergy, Unknown, 12/31/19) LORAZEPAM (Verified Allergy, Unknown, 12/31/19) All Systems: reviewed and negative except above Subjective leuk trending down, afebrile this am CXR pending for today now on SIMV mode no signs of resp distress more awake, eyes open, but poorly responsive episode of GI bleed this am, Hgb 7.9 s/p bolus of fluid EGD pending low K and P Objective Last 24 Hour Vital Signs Date Time Temp Pulse Resp B/P (MAP) Pulse Ox O2 Delivery O2 Flow Rate FiO2 01/02/20 07:13 61 18 100 Mechanical Ventilator 30 62 19 30 01/02/20 05:17 58 16 30 01/02/20 04:00 40 01/02/20 04:00 Mechanical Ventilator 01/02/20 04:00 97.5 79 18 102/58 (73) 99 01/02/20 03:30 57 17 30 01/02/20 03:30 57 01/02/20 01:15 56 18 100 Mechanical Ventilator 30 62 19 30 01/02/20 00:00 40 01/02/20 00:00 Mechanical Ventilator 01/02/20 00:00 97.3 56 18 100/69 (79) 100 01/01/20 23:32 54 01/01/20 23:30 54 16 30 01/01/20 20:35 65 18 30 01/01/20 20:00 Mechanical Ventilator 01/01/20 20:00 97.4 64 18 106/63 (77) 100 01/01/20 20:00 40 01/01/20 19:34 64 01/01/20 19:30 64 17 100 Mechanical Ventilator 30 70 19 30 01/01/20 18:00 98.7 85 18 112/68 (83) 98 01/01/20 16:55 66 19 30 01/01/20 16:00 40 01/01/20 16:00 92 01/01/20 16:00 98.4 88 18 108/67 (81) 98 01/01/20 16:00 92 01/01/20 16:00 Mechanical Ventilator 01/01/20 15:10 89 23 30 01/01/20 14:37 68 15 30 01/01/20 13:44 67 14 100 Mechanical Ventilator 30 71 14 30 01/01/20 12:00 70 01/01/20 12:00 30 01/01/20 12:00 97.8 82 18 105/61 (76) 98 01/01/20 12:00 Mechanical Ventilator 01/01/20 10:45 75 16 30 01/01/20 10:00 98.7 Intake and Output 01/01/20 01/02/20 19:00 07:00 Intake Total 1460.0 ml 700.5 ml Output Total 600 ml 300 ml Balance 860.0 ml 400.5 ml IV Total 1360.0 ml 700.5 ml Other 100 ml Output Urine Total 600 ml 300 ml Objective General Appearance: bedridden, chronically ill looking, older than her biological age ; vent dependent female ; on vent SIMV 450-30%-12, PEEP 5 Lines, tubes and drains: peripheral, trach HEENT: normocephalic, atraumatic Neck: trach - Portex #7, secretions moderate amount, yellow color, thick consistency Respiratory/Chest: few scattered rhonchi BL Cardiovascular/Chest: normal rate, regular rhythm Abdomen: non tender, soft, G tube Genitourinary/Rectal: [place] Extremities: no edema, muscle atrophy Neurologic: abnormal gait, poorly responsive, but more awake and eyes open today Musculoskeletal: atrophy Skin: maculopapular rash Microbiology Date/Time Source Procedure Growth Status 12/31/19 17:15 Blood Blood Culture - Preliminary NO GROWTH AFTER 24 HOURS Resulted 12/31/19 17:00 Blood Blood Culture - Preliminary NO GROWTH AFTER 24 HOURS Resulted 12/31/19 17:00 Nasopharynx SARS-CoV-2 RdRp Gene Assay - Final Complete Laboratory Tests 01/02/20 03:10: White Blood Count 15.4H, Red Blood Count 2.59L, Hemoglobin 7.9L, Hematocrit 23.8L, Mean Corpuscular Volume 92, Mean Corpuscular Hemoglobin 30.6, Mean Corpuscular Hemoglobin Concent 33.2, Red Cell Distribution Width 14.5, Platelet Count 159, Mean Platelet Volume 7.9, Neutrophils (%) (Auto) , Lymphocytes (%) ( Auto) , Monocytes (%) (Auto) , Eosinophils (%) (Auto) , Basophils (%) (Auto) , Neutrophils % (Manual) [Pending], Lymphocytes % (Manual) [Pending], Platelet Estimate [Pending], Platelet Morphology [Pending], Sodium Level 144, Potassium Level 3.0L, Chloride Level 108H, Carbon Dioxide Level 30, Anion Gap 6, Blood Urea Nitrogen 22H, Creatinine 0.5L, Estimat Glomerular Filtration Rate > 60, Glucose Level 89, Hemoglobin A1c 4.8, Uric Acid 3.3, Calcium Level 8.8, Phosphorus Level 2.2L, Magnesium Level 1.8, Total Bilirubin 0.4, Gamma Glutamyl Transpeptidase 131H, Aspartate Amino Transf (AST/SGOT) 83H, Alanine Aminotransferase (ALT/SGPT) 129H, Alkaline Phosphatase 111, C-Reactive Protein, Quantitative < 0.4, Pro-B-Type Natriuretic Peptide 441H, Total Protein 5.8L, Albumin 2.2L, Globulin 3.6, Albumin/Globulin Ratio 0.6L, Triglycerides Level 71 , Cholesterol Level < 50, LDL Cholesterol 17, HDL Cholesterol 23L, Cholesterol/ HDL Ratio 2.2L, Vitamin B12 Level 1155H, Folate 75.0H, Thyroid Stimulating Hormone (TSH) 3.525 01/02/20 09:15: White Blood Count 16.1H, Red Blood Count 2.64L, Hemoglobin 7.9L, Hematocrit 24.6L, Mean Corpuscular Volume 93, Mean Corpuscular Hemoglobin 30.0, Mean Corpuscular Hemoglobin Concent 32.3, Red Cell Distribution Width 14.5, Platelet Count 164, Mean Platelet Volume 8.2, Neutrophils (%) (Auto) , Lymphocytes (%) ( Auto) , Monocytes (%) (Auto) , Eosinophils (%) (Auto) , Basophils (%) (Auto) , Neutrophils % (Manual) [Pending], Lymphocytes % (Manual) [Pending], Platelet Estimate [Pending], Platelet Morphology [Pending] Current Medications Medications (Trade) Dose Ordered Sig/Villa Route PRN Reason Start Time Stop Time Status Last Admin Dose Admin Acetaminophen (Tylenol) 650 mg Q6H PRN GT Temp >100.5 01/01/20 11:00 01/31/20 10:59 Albuterol/ Ipratropium (Albuterol/ Ipratropium) 3 ml Q4HRT PRN HHN Shortness of Breath 01/01/20 10:00 01/06/20 09:59 Albuterol/ Ipratropium (Albuterol/ Ipratropium) 3 ml Q6HRT HHN 01/01/20 01:00 01/06/20 00:59 01/02/20 07:03 Ascorbic Acid (Vitamin C) 500 mg DAILY ORAL 01/01/20 09:00 01/31/20 08:59 01/02/20 08:44 Clonazepam (KlonoPIN) 1 mg Q6H ORAL 12/31/19 21:00 01/07/20 20:59 01/01/20 20:07 Dextrose 1,000 ml @ 50 mls/hr Q20H IV 01/01/20 11:00 01/31/20 10:59 01/01/20 22:52 Docusate Sodium (Colace) 100 mg DAILY ORAL 01/01/20 09:00 01/31/20 08:59 Gabapentin (Neurontin) 300 mg EVERY 8 HOURS ORAL 12/31/19 22:00 01/30/20 21:59 01/02/20 05:02 Haloperidol Lactate (Haldol) 5 mg Q6H PRN IM Agitation 01/01/20 23:30 02/15/20 23:29 Levetiracetam (Keppra) 1,000 mg DAILY ORAL 01/01/20 09:00 01/31/20 08:59 01/02/20 08:44 Levothyroxine Sodium (Synthroid) 75 mcg DAILY ORAL 01/01/20 09:00 01/31/20 08:59 01/02/20 08:44 Loperamide HCl (Imodium) 2 mg Q12HR PRN ORAL Diarrhea 12/31/19 21:15 01/30/20 21:14 Magnesium Hydroxide (Mom) 30 ml DAILY ORAL 01/01/20 09:00 01/31/20 08:59 Multivitamins Therapeutic (Therapeutic Multivitamin) 1 ea DAILY ORAL 01/01/20 09:00 01/31/20 08:59 01/02/20 08:44 Ondansetron HCl (Zofran) 4 mg Q6H PRN ORAL Nausea & Vomiting 12/31/19 21:00 01/30/20 20:59 Pantoprazole (Protonix) 40 mg EVERY 12 HOURS IVP 01/01/20 09:00 01/31/20 08:59 01/02/20 08:44 Piperacillin Sod/ Tazobactam Sod 3.375 gm/Sodium Chloride 110 ml @ 27.5 mls/hr Q8H IVPB 01/01/20 11:00 01/08/20 10:59 01/02/20 02:48 Potassium Phosphate 20 mm/ Sodium Chloride 281.6667 ml @ 46.944 m... ONCE IV 01/02/20 09:00 01/02/20 12:00 Rifaximin (Xifaxan) 550 mg TWICE A DAY ORAL 01/01/20 09:00 01/08/20 08:59 01/02/20 08:44 Thiamine HCl (Vitamin B1) 100 mg DAILY ORAL 01/01/20 09:00 01/31/20 08:59 01/02/20 08:44 Tramadol HCl (Ultram) 50 mg Q6H PRN ORAL For Pain (4-10) 12/31/19 21:15 01/07/20 20:59 Vancomycin HCl (Vanco pharmacy to dose) 1 ea DAILY PRN MISC Per rx protocol 01/01/20 09:15 01/31/20 09:14 Vancomycin HCl 750 mg/Dextrose 275 ml @ 183.333 mls/hr Q24H IVPB 01/02/20 08:00 01/07/20 07:59 Assessment/Plan Assessment/Plan ASSESSMENT VDRF/trach status Sepsis Pneumonia recurrent GI bleeding Anemia secondary to GI bleeding Aspiration risk Dysphagia, feeding by G-tube Chronic encephalopathy Acute kidney injury likely secondary to dehydration Electrolyte imbalance Severe protein calorie malnutrition Hypertension History of CVA Seizure disorder Psychiatric disorder Presumed scabies, s/p Rx PLAN OF CARE JULIANA vent support, pulm toilet ABG was stable on current settings, now on SIMV mode 450-30-12 PEEP5 , no signs of resp distress on these settings repeat ABG in am fup with CXR today as ordered prior pulm toilet via HHN continue Zosyn and vanco( pharmacy to dose), further abx management per ID recs fup cx rapid COVID 19 NGT in ED aspiration precautions Venous Duplex BLE -negative, get SCD ( unable to give a/c given anemia) closely monitor hemodynamic status Protonix gtt NPO stool OB pending transfuse to keep Hgb > 7. heme and GI follows EGD pending trend LFT monitor renal parameters, lytes, avoid nephrotoxic BUN trending down, creat stable, likely prerenal due to dehydration replace e/ lytes replace K and P this am , fup with further nephro recs monitor volumes seizure precautions, continue Keppra, trend LFT BP management with current regimen SN[facility] meds supportive care dietary eval s/p 12/31 Rx for presumed scabies with permethrin and Ivermectin, ID recommends to repeat Ivermectin in 7 days 01/07 case discussed and evaluated by supervising physician Raul Esparza MD 01/02/20 1148: Subjective Allergies: Coded Allergies: CARBAMAZEPINE (Verified Allergy, Unknown, 12/31/19) LORAZEPAM (Verified Allergy, Unknown, 12/31/19) Assessment/Plan Assessment/Plan Patient seen and examined with EXTRACTION SUPERVISOR. Agree with above A&P as it reflects our joint deliberations. Stable on vent AFVSS HH stable EGD pending Jeyson Anderson MD 01/08/20 1057: Subjective Allergies: Coded Allergies: CARBAMAZEPINE (Verified Allergy, Unknown, 12/31/19) LORAZEPAM (Verified Allergy, Unknown, 12/31/19) Assessment/Plan Assessment/Plan Patient seen and examined with EXTRACTION SUPERVISOR. Agree with above A&P as it reflects our joint deliberations. Ivanna Mora NP Jan 02, 2020 09:47 Raul Esparza MD Jan 02, 2020 11:48 Jeyson Anderson MD Jan 08, 2020 10:57
[2020-01-02] MEDS ORDERED: DiphenhydrAMINE 50mg/ml Inj IVP PRN (10:30)
[2020-01-02] MEDS ORDERED: Atropine Inj 1mg/10ml Syr IV PRN (10:30)
[2020-01-02] MEDS ORDERED: fentaNYL 100 mcg/2 mL IV PRN (10:30)
[2020-01-02] MEDS ORDERED: Potassium Phosphate 20 MM in NS 275 ML IV ONE (10:45)
--- NOTE | 2020-01-02 11:45 | Progress Note ---
DATE: 01/01/2020 HISTORY OF PRESENT ILLNESS: The purpose of this report patient's medical chart including the report of each of the specialists involved. The case has been discussed with the treatment team. The patient is currently in the intensive care unit because of acute coronary syndrome, hypotension, and seizure disorder. The patient was admitted yesterday. Prior to admission, the patient has no history of encephalopathy, seizure disorder, status post CVA, anoxic encephalopathy septic shock, hypertension, and long-term psychiatric disorder. She developed rectal bleeding and hypotension in the [facility] care facility and was brought by paramedics to [facility] where her condition was assessed and was found to be tachycardic, tachypneic, and hypotensive. Multiple of her blood tests were abnormal. Her BUN and creatinine were 84 and 0.7 respectively. Her sodium was 149, potassium was 3.0. She had elevated liver function tests and low albumin. Her rapid COVID test 19 was negative. She was determined to be in septic shock, received volume replacement, and was started on broad spectrum antibiotic. Multiple consultants were called to assist in the management of this case, and the patient was transferred to the ICU. ICU management consisted of blood volume and blood pressure and management of sepsis and possible pneumonia. The cause of her rectal bleeding was not identified as yet. She has prerenal azotemia. psychiatric disorder. The patient is ventilator dependent and fed by G-tube. Currently on NPO. PHYSICAL EXAMINATION: VITAL SIGNS: Blood pressure is 106/63, pulse is 64, respirations 18, temperature 97.4. HEENT: Eyes were normal. ENT, mucous membranes were dry, but intact. NECK: Supple with no JVD without lymph nodes. Tracheostomy site is clean. LUNGS: Clear in the upper lobe as well as bilaterally decreased breath sounds in both bases. HEART: Normal sounds with regular beats. There is no tachycardia at rest. ABDOMEN: Soft, flat, nontender with normal bowel sounds. EXTREMITIES: Warm, contracted without cyanosis, clubbing, or edema. LABORATORY AND DIAGNOSTIC DATA: Hemoglobin is 7.4, hematocrit 22.7, MCV of 93, WBC of 16.0, and platelets 197. WBC yesterday was 24,000. Her BUN and creatinine 47 and 0.6 respectively. Her sodium is 151, potassium 2.9, chloride 112, her CO2 is 20. Her proBNP is 597. Her SARS-2 COVID-19 is negative. Her chest x-ray did not have a definite diagnosis and suspected pneumonia suspected artifact. Venous Doppler scan of lower extremity was negative. IMPRESSION: The patient is on vancomycin 750 mg IV piggyback q.24h. She is on piperacillin/tazobactam 3.375 g IV piggyback q.8h. She is on levetiracetam 1000 mg IV piggyback daily. She has 75 mcg of levothyroxine. She is also on rifaximin 550 mg b.i.d. for hyperammonemia syndrome as well as 100 mg daily. She is on gabapentin and tramadol and now she has been seen by the physics teacher, mental health orderly, brakeshoe repairer, and general surgeon as well as electrical parts reconditioner. Repeat laboratory tests will be done in a.m. Glenny Bishop M.D. DR: JULIAN JOB#: [id number] CC:
--- NOTE | 2020-01-02 11:51 | Diagnostic Imaging Report ---
Indication: Reason For Exam: SOB Technique: Single AP view of the chest. Comparison: Chest radiograph dated 12/31/2019 Findings: The cardiomediastinal silhouette is unchanged. Lungs are again hyperinflated. No new airspace consolidation. Left apical scarring is again noted. No pleural effusion. No pneumothorax. Unchanged cannulated tracheostomy. IMPRESSION: No significant change from prior examination.
--- NOTE | 2020-01-02 13:13 | Nephrology Progress Note ---
Assessment/Plan Problem List: (1) RICHARD (acute kidney injury) (2) Dehydration (3) Anemia (4) GI bleed (5) Malnutrition (6) Seizure disorder (7) Electrolyte imbalance Assessment Renal failure, in the form of prerenal azotemia, most likely secondary to GI bleed GI bleed, leading to severe anemia Sepsis, pneumonia Chronic tracheostomy, ventilator dependent History of CVA History of seizure disorder History of psychiatric disorder Severe malnutrition Electrolyte abnormalities Plan Continue slow hydration Discontinue blood pressure medications as her blood pressure is low Discontinue diuretics Monitor renal parameters Transfusion as needed GI evaluation Correct electrolyte abnormalities Check B12 level, folate, and thyroid function tests: Results noted Subjective ROS Limited/Unobtainable: Yes Objective Objective Last 24 Hour Vital Signs Date Time Temp Pulse Resp B/P (MAP) Pulse Ox O2 Delivery O2 Flow Rate FiO2 01/02/20 12:48 75 18 113/52 (72) 99 01/02/20 12:47 70 18 104/48 (66) 99 01/02/20 12:33 85 18 92/64 (73) 99 01/02/20 12:00 40 01/02/20 11:01 64 18 88/64 (72) 99 01/02/20 10:53 56 22 30 01/02/20 10:10 97.7 64 18 92/63 (73) 99 01/02/20 09:20 65 21 30 01/02/20 08:00 40 01/02/20 08:00 66 01/02/20 07:13 61 18 100 Mechanical Ventilator 30 62 19 30 01/02/20 05:17 58 16 30 01/02/20 04:00 40 01/02/20 04:00 Mechanical Ventilator 01/02/20 04:00 97.5 79 18 102/58 (73) 99 01/02/20 03:30 57 17 30 01/02/20 03:30 57 01/02/20 01:15 56 18 100 Mechanical Ventilator 30 62 19 30 01/02/20 00:00 40 01/02/20 00:00 Mechanical Ventilator 01/02/20 00:00 97.3 56 18 100/69 (79) 100 01/01/20 23:32 54 01/01/20 23:30 54 16 30 01/01/20 20:35 65 18 30 01/01/20 20:00 Mechanical Ventilator 01/01/20 20:00 97.4 64 18 106/63 (77) 100 01/01/20 20:00 40 01/01/20 19:34 64 01/01/20 19:30 64 17 100 Mechanical Ventilator 30 70 19 30 01/01/20 18:00 98.7 85 18 112/68 (83) 98 01/01/20 16:55 66 19 30 01/01/20 16:00 40 01/01/20 16:00 92 01/01/20 16:00 98.4 88 18 108/67 (81) 98 01/01/20 16:00 92 01/01/20 16:00 Mechanical Ventilator 01/01/20 15:10 89 23 30 01/01/20 14:37 68 15 30 01/01/20 13:44 67 14 100 Mechanical Ventilator 30 71 14 30 Intake and Output 01/01/20 01/02/20 19:00 07:00 Intake Total 1460.0 ml 700.5 ml Output Total 600 ml 300 ml Balance 860.0 ml 400.5 ml IV Total 1360.0 ml 700.5 ml Other 100 ml Output Urine Total 600 ml 300 ml Laboratory Tests 01/02/20 03:10: White Blood Count 15.4H, Red Blood Count 2.59L, Hemoglobin 7.9L, Hematocrit 23.8L, Mean Corpuscular Volume 92, Mean Corpuscular Hemoglobin 30.6, Mean Corpuscular Hemoglobin Concent 33.2, Red Cell Distribution Width 14.5, Platelet Count 159, Mean Platelet Volume 7.9, Neutrophils (%) (Auto) , Lymphocytes (%) ( Auto) , Monocytes (%) (Auto) , Eosinophils (%) (Auto) , Basophils (%) (Auto) , Differential Total Cells Counted 100, Neutrophils % (Manual) 68, Lymphocytes % ( Manual) 18L, Monocytes % (Manual) 9, Eosinophils % (Manual) 5H, Basophils % ( Manual) 0, Band Neutrophils 0, Platelet Estimate Adequate, Platelet Morphology Normal, Polychromasia 1+, Hypochromasia 1+, Anisocytosis 1+, Sodium Level 144, Potassium Level 3.0L, Chloride Level 108H, Carbon Dioxide Level 30, Anion Gap 6 , Blood Urea Nitrogen 22H, Creatinine 0.5L, Estimat Glomerular Filtration Rate > 60, Glucose Level 89, Hemoglobin A1c 4.8, Uric Acid 3.3, Calcium Level 8.8, Phosphorus Level 2.2L, Magnesium Level 1.8, Total Bilirubin 0.4, Gamma Glutamyl Transpeptidase 131H, Aspartate Amino Transf (AST/SGOT) 83H, Alanine Aminotransferase (ALT/SGPT) 129H, Alkaline Phosphatase 111, C-Reactive Protein, Quantitative < 0.4, Pro-B-Type Natriuretic Peptide 441H, Total Protein 5.8L, Albumin 2.2L, Globulin 3.6, Albumin/Globulin Ratio 0.6L, Triglycerides Level 71 , Cholesterol Level < 50, LDL Cholesterol 17, HDL Cholesterol 23L, Cholesterol/ HDL Ratio 2.2L, Vitamin B12 Level 1155H, Folate 75.0H, Thyroid Stimulating Hormone (TSH) 3.525 01/02/20 09:15: White Blood Count 16.1H, Red Blood Count 2.64L, Hemoglobin 7.9L, Hematocrit 24.6L, Mean Corpuscular Volume 93, Mean Corpuscular Hemoglobin 30.0, Mean Corpuscular Hemoglobin Concent 32.3, Red Cell Distribution Width 14.5, Platelet Count 164, Mean Platelet Volume 8.2, Neutrophils (%) (Auto) , Lymphocytes (%) ( Auto) , Monocytes (%) (Auto) , Eosinophils (%) (Auto) , Basophils (%) (Auto) , Differential Total Cells Counted 100, Neutrophils % (Manual) 73, Lymphocytes % ( Manual) 14L, Monocytes % (Manual) 6, Eosinophils % (Manual) 7H, Basophils % ( Manual) 0, Band Neutrophils 0, Platelet Estimate Adequate, Platelet Morphology Normal, Polychromasia 1+, Hypochromasia 1+, Anisocytosis 1+ Height (Feet): 5 Height (Inches): 1.00 Weight (Pounds): 82 General Appearance: no apparent distress, lethargic EENT: other - Trach to vent Cardiovascular: tachycardia Respiratory/Chest: decreased breath sounds Abdomen: distended Chivo Holloway MD Jan 02, 2020 13:13
[2020-01-02] MEDS ORDERED: NS 275ml ONE (13:24)
[2020-01-02] MEDS: Midodrine 10mg tab ORAL SCH ×2 (13:36→18:31)
[2020-01-02] MEDS ORDERED: Albuterol/Ipratropium 3ml neb ONE (14:08)
[2020-01-02] MEDS ORDERED: Lidocaine 1% MPF 10mg/ml 5ml ONE (14:30)
--- NOTE | 2020-01-02 14:39 | Endoscopy Procedure Note ---
Endoscopy Procedure Note General Indication for Procedure: gib Procedures Performed: EGD Operative Findings/Diagnosis: gastritis Specimen: yes Pt Tolerated Procedure Well: Yes Estimated Blood Loss: none Anesthesia Anesthesiologist: alem Anesthesia: MAC Inserted Devices Implant(s) used?: No GI Core Measures 50 yrs or older w/o bx or poly: Not Applicable 10yrs. F/U recommended: Not Applicable Satish Carrillo MD Jan 02, 2020 14:39
[2020-01-02] MEDS ORDERED: NS 500ML IVPB ONE (14:40)
--- NOTE | 2020-01-02 14:48 | Surgery Progress Note ---
Surgery Progress Note Objective Last 24 Hour Vital Signs Date Time Temp Pulse Resp B/P (MAP) Pulse Ox O2 Delivery O2 Flow Rate FiO2 01/02/20 14:34 55 18 102/55 (71) 99 01/02/20 14:20 50 12 100 Mechanical Ventilator 30 52 12 30 01/02/20 13:38 80 18 95/53 (67) 99 01/02/20 13:37 89 18 97/55 (69) 99 01/02/20 12:48 75 18 113/52 (72) 99 01/02/20 12:47 70 18 104/48 (66) 99 01/02/20 12:33 85 18 92/64 (73) 99 01/02/20 12:00 40 01/02/20 11:01 64 18 88/64 (72) 99 01/02/20 10:53 56 22 30 01/02/20 10:10 97.7 64 18 92/63 (73) 99 01/02/20 09:20 65 21 30 01/02/20 08:00 40 01/02/20 08:00 66 01/02/20 07:13 61 18 100 Mechanical Ventilator 30 62 19 30 01/02/20 05:17 58 16 30 01/02/20 04:00 40 01/02/20 04:00 Mechanical Ventilator 01/02/20 04:00 97.5 79 18 102/58 (73) 99 01/02/20 03:30 57 17 30 01/02/20 03:30 57 01/02/20 01:15 56 18 100 Mechanical Ventilator 30 62 19 30 01/02/20 00:00 40 01/02/20 00:00 Mechanical Ventilator 01/02/20 00:00 97.3 56 18 100/69 (79) 100 01/01/20 23:32 54 01/01/20 23:30 54 16 30 01/01/20 20:35 65 18 30 01/01/20 20:00 Mechanical Ventilator 01/01/20 20:00 97.4 64 18 106/63 (77) 100 01/01/20 20:00 40 01/01/20 19:34 64 01/01/20 19:30 64 17 100 Mechanical Ventilator 30 70 19 30 01/01/20 18:00 98.7 85 18 112/68 (83) 98 01/01/20 16:55 66 19 30 01/01/20 16:00 40 01/01/20 16:00 92 01/01/20 16:00 98.4 88 18 108/67 (81) 98 01/01/20 16:00 92 01/01/20 16:00 Mechanical Ventilator 01/01/20 15:10 89 23 30 I&O Intake and Output 01/01/20 01/02/20 19:00 07:00 Intake Total 1460.0 ml 700.5 ml Output Total 600 ml 300 ml Balance 860.0 ml 400.5 ml IV Total 1360.0 ml 700.5 ml Other 100 ml Output Urine Total 600 ml 300 ml Dressing: saturated Wound: other Drains: other Cardiovascular: RSR Respiratory: decreased breath sounds Abdomen: soft, non-tender, present bowel sounds Extremities: no cyanosis Laboratory Tests Test 01/02/20 03:10 01/02/20 09:15 White Blood Count 15.4 K/UL (4.8-10.8) H 16.1 K/UL (4.8-10.8) H Red Blood Count 2.59 M/UL (4.20-5.40) L 2.64 M/UL (4.20-5.40) L Hemoglobin 7.9 G/DL (12.0-16.0) L 7.9 G/DL (12.0-16.0) L Hematocrit 23.8 % (37.0-47.0) L 24.6 % (37.0-47.0) L Mean Corpuscular Volume 92 FL (80-99) 93 FL (80-99) Mean Corpuscular Hemoglobin 30.6 PG (27.0-31.0) 30.0 PG (27.0-31.0) Mean Corpuscular Hemoglobin Concent 33.2 G/DL (32.0-36.0) 32.3 G/DL (32.0-36.0) Red Cell Distribution Width 14.5 % (11.6-14.8) 14.5 % (11.6-14.8) Platelet Count 159 K/UL (150-450) 164 K/UL (150-450) Mean Platelet Volume 7.9 FL (6.5-10.1) 8.2 FL (6.5-10.1) Neutrophils (%) (Auto) % (45.0-75.0) % (45.0-75.0) Lymphocytes (%) (Auto) % (20.0-45.0) % (20.0-45.0) Monocytes (%) (Auto) % (1.0-10.0) % (1.0-10.0) Eosinophils (%) (Auto) % (0.0-3.0) % (0.0-3.0) Basophils (%) (Auto) % (0.0-2.0) % (0.0-2.0) Differential Total Cells Counted 100 100 Neutrophils % (Manual) 68 % (45-75) 73 % (45-75) Lymphocytes % (Manual) 18 % (20-45) L 14 % (20-45) L Monocytes % (Manual) 9 % (1-10) 6 % (1-10) Eosinophils % (Manual) 5 % (0-3) H 7 % (0-3) H Basophils % (Manual) 0 % (0-2) 0 % (0-2) Band Neutrophils 0 % (0-8) 0 % (0-8) Platelet Estimate Adequate Adequate Platelet Morphology Normal Normal Polychromasia 1+ 1+ Hypochromasia 1+ 1+ Anisocytosis 1+ 1+ Sodium Level 144 MMOL/L (136-145) Potassium Level 3.0 MMOL/L (3.5-5.1) L Chloride Level 108 MMOL/L (98-107) H Carbon Dioxide Level 30 MMOL/L (21-32) Anion Gap 6 mmol/L (5-15) Blood Urea Nitrogen 22 mg/dL (7-18) H Creatinine 0.5 MG/DL (0.55-1.30) L Estimat Glomerular Filtration Rate > 60 mL/min (>60) Glucose Level 89 MG/DL (74-106) Hemoglobin A1c 4.8 % (4.3-6.0) Uric Acid 3.3 MG/DL (2.6-7.2) Calcium Level 8.8 MG/DL (8.5-10.1) Phosphorus Level 2.2 MG/DL (2.5-4.9) L Magnesium Level 1.8 MG/DL (1.8-2.4) Total Bilirubin 0.4 MG/DL (0.2-1.0) Gamma Glutamyl Transpeptidase 131 U/L (5-85) H Aspartate Amino Transf (AST/SGOT) 83 U/L (15-37) H Alanine Aminotransferase (ALT/SGPT) 129 U/L (12-78) H Alkaline Phosphatase 111 U/L (46-116) C-Reactive Protein, Quantitative < 0.4 mg/dL (0.00-0.90) Pro-B-Type Natriuretic Peptide 441 pg/mL (0-125) H Total Protein 5.8 G/DL (6.4-8.2) L Albumin 2.2 G/DL (3.4-5.0) L Globulin 3.6 g/dL Albumin/Globulin Ratio 0.6 (1.0-2.7) L Triglycerides Level 71 MG/DL (30-150) Cholesterol Level < 50 MG/DL (< 200) LDL Cholesterol 17 mg/dL (<100) HDL Cholesterol 23 MG/DL (40-60) L Cholesterol/HDL Ratio 2.2 (3.3-4.4) L Vitamin B12 Level 1155 PG/ML (193-986) H Folate 75.0 NG/ML (8.6-58.9) H Thyroid Stimulating Hormone (TSH) 3.525 uiU/mL (0.358-3.740) Plan Problems: (1) Pneumonia (2) Sepsis Assessment & Plan: leukocytosis anemia lactic acidosis agree with GI recommend EGD planned for 12/31 hold feeding for now trend h/h monitor for bleeding no acute hemorrhage will be available in event needs exploration for hemostasis prbc as per heme thank you will follow with recs Pt presented on admission in emaciated state. Pt has tracheostomy and GT. NO skin concerns noted to skin under collar of trach. NO erythema or evidence of skin erosion at GT site. Pt noted to have scaly pimple-like rash with webbing noted to R and L axillae, undersides of both breasts, Bilat groin and lower back. Tracking and webbing noted to hands and feet. Pt restless and scratching at skin. Non-Blanching erythema without induration or fluctuance noted to R and L hips and trochanteric areas.Non-blanching erythema noted along spine. Non-Blanching erythema without induration noted to Sacrum. Non-Blanching erythema noted to R and L Malleoli and both heels. Tx.Plan: Please apply Cavilon Skin Barrier to each bony Prominences at risks for Skin Breakdown. Cover each area with Optifoam drsgs. Change every 7 days and prn. Apply Moisture Barrier Paste to Sacrum. Cover with Optifoam drsg. Change every 3 days and prn. Reposition at least every 2hours or as tolerated. Off-load heels with pillow. APM/EMELI Mattress overlay. (3) GI bleed (4) G tube feedings Assessment & Plan: DAILY ESTIMATED NEEDS: Needs based on Underweight, critical care 37.3kg 30-40 kcals/kg 3391-2589 total kcals 1.25-2 g protein/kg 47-75 g total protein 25-35 mL/kg 933-1306 total fluid mLs NUTRITION DIAGNOSIS: Increased kcal and pro needs r/t underweight status as evidenced by BMI 14.1, pt is 68% of ideal body weight w/ generalized severe wasting, trach and peg dep. CURRENT TF: Now NPO- pending EGD ENTERAL NUTRITION RECOMMENDATIONS: As able, rec JEVITY 1.2 w/ goal of 50ml/hr x22 hrs to provide 1100ml, 1320 kcal, 61g pro, 888ml free H2O - As medically able, rec to start feeds of Jevity 1.2 @30ml/hr for 6 hrs. Advance as tolerated 10ml/hr q4-6 hrs to goal of 50ml/hr. - HOLD 1HR BEFORE AND AFTER SYNTHROID MEDS - Flush per . HOB over 30 degrees ------- ADDITIONAL RECOMMENDATIONS: 1) Per SNF: 5'4" and 81# Maintain calibrated bed scale wts w/ added P200 mattress 2) Lytes daily, replete as needed (low K, phos) 3) Skin integrity: add BRIAN VIA GT BID, continue Vit C 4) TF recs as above as medically able George Woods Jan 02, 2020 14:48
--- NOTE | 2020-01-02 15:04 | Endoscopy Procedure Note ---
Endoscopy Procedure Note General Indication for Procedure: gib Procedures Performed: EGD Operative Findings/Diagnosis: gu Specimen: yes Pt Tolerated Procedure Well: Yes Estimated Blood Loss: none Anesthesia Anesthesiologist: alem Anesthesia: MAC Inserted Devices Implant(s) used?: No GI Core Measures 50 yrs or older w/o bx or poly: Not Applicable 10yrs. F/U recommended: Not Applicable Satish Carrillo MD Jan 02, 2020 15:04
--- NOTE | 2020-01-02 15:26 | Immediate Post-Op Evaluation ---
Immediate Post-Op Evalulation Immediate Post-Op Evalulation Procedure: egd Date of Evaluation: Jan 02, 2020 Time of Evaluation: 15:12 IV Fluids: 100ml 0.9ns Blood Products: none Estimated Blood Loss: negligible Blood Pressure Systolic: 110 Blood Pressure Diastolic: 58 Pulse Rate: 54 Respiratory Rate: 18 O2 Sat by Pulse Oximetry: 100 Temperature (Fahrenheit): 97.7 Pain Score (1-10): 0 Nausea: No Vomiting: No Complications none Patient Status: awake, reacts, patent Hydration Status: adequate Drug: Mini Gill MD Jan 02, 2020 15:26
--- NOTE | 2020-01-02 15:27 | 48 Hour Post Anesthesia Eval ---
Post Anesthesia Evaluation Procedure: egd Date of Evaluation: Jan 02, 2020 Time of Evaluation: 15:14 Blood Pressure Systolic: 108 0: 58 Pulse Rate: 56 Respiratory Rate: 18 Temperature (Fahrenheit): 97.7 O2 Sat by Pulse Oximetry: 100 Airway: patent Nausea: No Vomiting: No Pain Intensity: 0 Hydration Status: adequate Cardiopulmonary Status: stable Mental Status/LOC: patient returned to baseline Post-Anesthesia Complications: none Follow-up care needed: N/A Mini Galan MD Jan 02, 2020 15:27
[2020-01-02 16:36] LABS: HEMATOCRIT 23.3 % (37.0-47.0); HEMOGLOBIN 7.7 G/DL (12.0-16.0); MEAN CORPUSCULAR VOLUME 94 FL (80-99); PLATELET COUNT 167 K/UL (150-450); RED BLOOD COUNT 2.49 M/UL (4.20-5.40); RED CELL DISTRIBUTION WIDTH 15.2 % (11.6-14.8); WHITE BLOOD COUNT 16.2 K/UL (4.8-10.8)
[2020-01-02 16:37] LABS: BASOPHILS % (AUTO) 0.7 % (0.0-2.0); EOSINOPHILS % (AUTO) 5.9 % (0.0-3.0); LYMPHOCYTES % (AUTO) 17.4 % (20.0-45.0); MONOCYTES % (AUTO) 8.4 % (1.0-10.0); NEUTROPHILS % (AUTO) 67.8 % (45.0-75.0)
--- NOTE | 2020-01-02 17:15 | Procedure Note ---
DATE OF PROCEDURE: 01/02/2020 SURGEON: Satish Carrillo MD. INDICATION: GI bleeding. The procedure, risks, benefits, and possible consequences, including hemorrhage, aspiration, perforation and infection, and alternative treatments, were explained to the patient/legal guardian by Dr. Satish Carrillo and the patient/legal guardian understood and accepted these risks. PROCEDURE IN DETAIL: After informed consent was obtained and the patient was adequately sedated, Olympus upper endoscope was advanced from mouth into the second portion of the duodenum and retroflexion was performed in the stomach. G-tube was pushed in to look at the area under the G-tube. There was no active bleeding at this time in the stomach nor in the duodenum. There was an ulceration across the wall from the G-tube that seems to be about 1 cm clear-base without any visible vessel or adherent clot. No obvious findings. Random biopsy from antrum was obtained to rule out H. pylori infection. At this time, the upper endoscope was retrieved and the procedure was terminated. SUMMARY FINDINGS: Gastric ulceration across from the G-tube site, clean base 1 cm without any active bleeding. RECOMMENDATIONS: Given the patient has stable H and H for today despite of melena, maybe this old blood from this ulcer that now is cleaning up. Plan to monitor for one more day. If the patient continues to have drop in H and H and evidence of GI bleeding, we will recommend colonoscopy at that time. I want to thank Dr. iBshop for this kind referral. Satish Carrillo M.D. DR: Maria JOB#: [id number] CC:
--- NOTE | 2020-01-02 22:29 | Psych Consult Progress Note ---
Psychiatry Progress Note Psychiatry Progress Note Medications Current Medications Medications (Trade) Dose Ordered Sig/Villa Route PRN Reason Start Time Stop Time Status Last Admin Dose Admin Acetaminophen (Tylenol) 650 mg Q6H PRN GT Temp >100.5 01/01/20 11:00 01/31/20 10:59 Albuterol/ Ipratropium (Albuterol/ Ipratropium) 3 ml Q4HRT PRN HHN Shortness of Breath 01/01/20 10:00 01/06/20 09:59 Albuterol/ Ipratropium (Albuterol/ Ipratropium) 3 ml Q6HRT HHN 01/01/20 01:00 01/06/20 00:59 01/02/20 19:01 Ascorbic Acid (Vitamin C) 500 mg DAILY ORAL 01/01/20 09:00 01/31/20 08:59 01/02/20 08:44 Clonazepam (KlonoPIN) 1 mg Q6H ORAL 12/31/19 21:00 01/07/20 20:59 01/01/20 20:07 Dextrose 1,000 ml @ 50 mls/hr Q20H IV 01/01/20 11:00 01/31/20 10:59 01/02/20 20:11 Docusate Sodium (Colace) 100 mg DAILY ORAL 01/01/20 09:00 01/31/20 08:59 Gabapentin (Neurontin) 300 mg EVERY 8 HOURS ORAL 12/31/19 22:00 01/30/20 21:59 01/02/20 21:52 Haloperidol Lactate (Haldol) 5 mg Q6H PRN IM Agitation 01/01/20 23:30 02/15/20 23:29 Levetiracetam (Keppra) 1,000 mg DAILY ORAL 01/01/20 09:00 01/31/20 08:59 01/02/20 08:44 Levothyroxine Sodium (Synthroid) 75 mcg DAILY ORAL 01/01/20 09:00 01/31/20 08:59 01/02/20 08:44 Loperamide HCl (Imodium) 2 mg Q12HR PRN ORAL Diarrhea 12/31/19 21:15 01/30/20 21:14 Magnesium Hydroxide (Mom) 30 ml DAILY ORAL 01/01/20 09:00 01/31/20 08:59 Midodrine (Pro-Amatine) 10 mg THREE TIMES A DAY ORAL 01/02/20 13:27 04/01/20 13:26 01/02/20 18:31 Multivitamins Therapeutic (Therapeutic Multivitamin) 1 ea DAILY ORAL 01/01/20 09:00 01/31/20 08:59 01/02/20 08:44 Ondansetron HCl (Zofran) 4 mg Q6H PRN ORAL Nausea & Vomiting 12/31/19 21:00 01/30/20 20:59 Pantoprazole (Protonix) 40 mg EVERY 12 HOURS IVP 01/01/20 09:00 01/31/20 08:59 01/02/20 20:02 Piperacillin Sod/ Tazobactam Sod 3.375 gm/Sodium Chloride 110 ml @ 27.5 mls/hr Q8H IVPB 01/02/20 12:00 01/09/20 11:59 01/02/20 20:02 Potassium Phosphate 20 mm/ Sodium Chloride 281.6667 ml @ 46.944 m... ONCE IV 01/02/20 12:00 02/01/20 11:59 01/02/20 12:23 Rifaximin (Xifaxan) 550 mg TWICE A DAY ORAL 01/01/20 09:00 01/08/20 08:59 01/02/20 18:31 Thiamine HCl (Vitamin B1) 100 mg DAILY ORAL 01/01/20 09:00 01/31/20 08:59 01/02/20 08:44 Tramadol HCl (Ultram) 50 mg Q6H PRN ORAL For Pain (4-10) 12/31/19 21:15 01/07/20 20:59 Vancomycin HCl (Vanco pharmacy to dose) 1 ea DAILY PRN MISC Per rx protocol 01/01/20 09:15 01/31/20 09:14 Vancomycin HCl 750 mg/Dextrose 275 ml @ 183.333 mls/hr Q24H IVPB 01/02/20 08:00 01/07/20 07:59 01/02/20 10:09 Allergies: Coded Allergies: CARBAMAZEPINE (Verified Allergy, Unknown, 12/31/19) LORAZEPAM (Verified Allergy, Unknown, 12/31/19) Objective Data Height (Feet): 5 Height (Inches): 1.00 Weight (Pounds): 82 General Appearance: no apparent distress, lethargic Additional Comments: waxing and waning consciousness. Affect is flat. Thought process, there is a paucity of thought content. Thought content, no suicidal or homicidal ideation. Cognition is impaired. Insight and judgment is impaired. Assessment/Plan Assessment/Plan: ASSESSMENT: Candler I Chronic encephalopathy. Agitation. Candler II Deferred. Candler III As above. Candler IV Low. Candler V 20. PLAN: 1. Haldol IM as needed. 2. Discussed with the nurse. Rhonda Maxwell MD Jan 02, 2020 22:29
[2020-01-03] VITALS: BP 107/67
[2020-01-03] MEDS: Albuterol/Ipratropium 3ml neb HHN SCH ×4 (01:04→18:55)
[2020-01-03] MEDS: Piperacillin/Tazobactam 3.375 GM in NS 110 ML IVPB SCH (03:52)
[2020-01-03 04:00] VITALS: BP 125/75
[2020-01-03 05:19] LABS: HEMATOCRIT 23.3 % (37.0-47.0); HEMOGLOBIN 7.7 G/DL (12.0-16.0); MEAN CORPUSCULAR VOLUME 93 FL (80-99); PLATELET COUNT 61 K/UL (150-450); RED BLOOD COUNT 2.49 M/UL (4.20-5.40); RED CELL DISTRIBUTION WIDTH 14.1 % (11.6-14.8); WHITE BLOOD COUNT 16.8 K/UL (4.8-10.8)
[2020-01-03 05:56] LABS: ALANINE AMINOTRANSFERASE 138 U/L (12-78); ALBUMIN 2.4 G/DL (3.4-5.0); ALBUMIN/GLOBULIN RATIO 0.8 (1.0-2.7); ALKALINE PHOSPHATASE 138 U/L (46-116); ANION GAP 9 mmol/L (5-15); ASPARTATE AMINO TRANSFERASE 86 U/L (15-37); BILIRUBIN,TOTAL 0.5 MG/DL (0.2-1.0); BLOOD UREA NITROGEN 12 mg/dL (7-18); CALCIUM 8.8 MG/DL (8.5-10.1); CARBON DIOXIDE 24 MMOL/L (21-32); CHLORIDE 108 MMOL/L (98-107); CREATININE 0.5 MG/DL (0.55-1.30); PHOSPHORUS 2.8 MG/DL (2.5-4.9); POTASSIUM 3.6 MMOL/L (3.5-5.1); SODIUM 140 MMOL/L (136-145)
--- NOTE | 2020-01-03 07:13 | Hematology/Onc Progress Note ---
Assessment/Plan Assessment/Plan # Thrombocytopenia med related v labs error --> plt trend 167-->61 --> meds have been reviewed --> no hep or lovenox --> recheck cbc # Anemia rule out underlying gi bleed --> Dr. Carrillo has been consulted-->endosco gastric ulceration --> trend hgb 7-->7.4-->7.9 --> anemia panel ordered --> prn transfusion --> protonix started # Leukocytosis is likely related to pna on imaging --> abx has been started --> if wbc worsens, consider abx vanc/zosyn --> smear is noted --> wbc 25-->15 # Sepsis --> on abx for pna # Pneumonia --> pulm, Dr. 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 senior wind energy consultant care, will follow Subjective Allergies: Coded Allergies: CARBAMAZEPINE (Verified Allergy, Unknown, 12/31/19) LORAZEPAM (Verified Allergy, Unknown, 12/31/19) Subjective 01/01 altered, trach, no bleedin wbc improved on abx, seen by gi 01/02 egd study noted, also with plts 61k, have vitaly Armendariz Rn, will recheck cbc Objective Objective Current Medications Medications (Trade) Dose Ordered Sig/Villa Route PRN Reason Start Time Stop Time Status Last Admin Dose Admin Acetaminophen (Tylenol) 650 mg Q6H PRN GT Temp >100.5 01/01/20 11:00 01/31/20 10:59 Albuterol/ Ipratropium (Albuterol/ Ipratropium) 3 ml Q4HRT PRN HHN Shortness of Breath 01/01/20 10:00 01/06/20 09:59 Albuterol/ Ipratropium (Albuterol/ Ipratropium) 3 ml Q6HRT HHN 01/01/20 01:00 01/06/20 00:59 01/03/20 01:04 Ascorbic Acid (Vitamin C) 500 mg DAILY ORAL 01/01/20 09:00 01/31/20 08:59 01/02/20 08:44 Clonazepam (KlonoPIN) 1 mg Q6H ORAL 12/31/19 21:00 01/07/20 20:59 01/01/20 20:07 Dextrose 1,000 ml @ 50 mls/hr Q20H IV 01/01/20 11:00 01/31/20 10:59 01/03/20 03:51 Docusate Sodium (Colace) 100 mg DAILY ORAL 01/01/20 09:00 01/31/20 08:59 Gabapentin (Neurontin) 300 mg EVERY 8 HOURS ORAL 12/31/19 22:00 01/30/20 21:59 01/03/20 05:05 Haloperidol Lactate (Haldol) 5 mg Q6H PRN IM Agitation 01/01/20 23:30 02/15/20 23:29 Levetiracetam (Keppra) 1,000 mg DAILY ORAL 01/01/20 09:00 01/31/20 08:59 01/02/20 08:44 Levothyroxine Sodium (Synthroid) 75 mcg DAILY ORAL 01/01/20 09:00 01/31/20 08:59 01/02/20 08:44 Loperamide HCl (Imodium) 2 mg Q12HR PRN ORAL Diarrhea 12/31/19 21:15 01/30/20 21:14 Magnesium Hydroxide (Mom) 30 ml DAILY ORAL 01/01/20 09:00 01/31/20 08:59 Midodrine (Pro-Amatine) 10 mg THREE TIMES A DAY ORAL 01/02/20 13:27 04/01/20 13:26 01/02/20 18:31 Multivitamins Therapeutic (Therapeutic Multivitamin) 1 ea DAILY ORAL 01/01/20 09:00 01/31/20 08:59 01/02/20 08:44 Ondansetron HCl (Zofran) 4 mg Q6H PRN ORAL Nausea & Vomiting 12/31/19 21:00 01/30/20 20:59 Pantoprazole (Protonix) 40 mg EVERY 12 HOURS IVP 01/01/20 09:00 01/31/20 08:59 01/02/20 20:02 Piperacillin Sod/ Tazobactam Sod 3.375 gm/Sodium Chloride 110 ml @ 27.5 mls/hr Q8H IVPB 01/02/20 12:00 01/09/20 11:59 01/03/20 03:52 Potassium Phosphate 20 mm/ Sodium Chloride 281.6667 ml @ 46.944 m... ONCE IV 01/02/20 12:00 02/01/20 11:59 01/02/20 12:23 Rifaximin (Xifaxan) 550 mg TWICE A DAY ORAL 01/01/20 09:00 01/08/20 08:59 01/02/20 18:31 Thiamine HCl (Vitamin B1) 100 mg DAILY ORAL 01/01/20 09:00 01/31/20 08:59 01/02/20 08:44 Tramadol HCl (Ultram) 50 mg Q6H PRN ORAL For Pain (4-10) 12/31/19 21:15 01/07/20 20:59 Vancomycin HCl (Vanco pharmacy to dose) 1 ea DAILY PRN MISC Per rx protocol 01/01/20 09:15 01/31/20 09:14 Vancomycin HCl 750 mg/Dextrose 275 ml @ 183.333 mls/hr Q24H IVPB 01/02/20 08:00 01/07/20 07:59 01/02/20 10:09 Last 24 Hour Vital Signs Date Time Temp Pulse Resp B/P (MAP) Pulse Ox O2 Delivery O2 Flow Rate FiO2 01/03/20 05:03 63 20 30 01/03/20 04:00 40 01/03/20 04:00 97.9 59 19 125/75 (92) 100 01/03/20 04:00 Mechanical Ventilator 01/03/20 03:35 58 01/03/20 03:20 54 19 30 01/03/20 01:06 55 14 100 Mechanical Ventilator 30 52 14 30 01/03/20 00:00 40 01/03/20 00:00 Mechanical Ventilator 01/03/20 00:00 98.1 69 17 107/67 (80) 100 01/02/20 23:33 62 01/02/20 23:20 60 20 30 01/02/20 20:46 53 21 30 01/02/20 20:00 97.5 60 18 108/48 (68) 100 01/02/20 20:00 Mechanical Ventilator 01/02/20 20:00 40 01/02/20 19:24 46 01/02/20 19:01 47 19 100 Mechanical Ventilator 30 46 13 30 01/02/20 18:00 53 18 112/51 (71) 99 01/02/20 17:17 51 17 30 01/02/20 16:00 56 01/02/20 16:00 Mechanical Ventilator 01/02/20 16:00 98.1 64 18 92/63 (73) 99 01/02/20 16:00 40 01/02/20 15:50 53 19 30 01/02/20 15:27 56 18 100 01/02/20 15:26 54 18 100 01/02/20 14:34 55 18 102/55 (71) 99 01/02/20 14:20 50 12 100 Mechanical Ventilator 30 52 12 30 01/02/20 13:38 80 18 95/53 (67) 99 01/02/20 13:37 89 18 97/55 (69) 99 01/02/20 12:48 75 18 113/52 (72) 99 01/02/20 12:47 70 18 104/48 (66) 99 01/02/20 12:33 85 18 92/64 (73) 99 01/02/20 12:00 61 01/02/20 12:00 40 01/02/20 12:00 Mechanical Ventilator 01/02/20 11:01 64 18 88/64 (72) 99 01/02/20 10:53 56 22 30 01/02/20 10:10 97.7 64 18 92/63 (73) 99 01/02/20 09:20 65 21 30 01/02/20 08:00 40 01/02/20 08:00 66 01/02/20 08:00 Mechanical Ventilator 01/02/20 07:13 61 18 100 Mechanical Ventilator 30 62 19 30 01/02/20 05:17 58 16 30 01/02/20 04:00 40 01/02/20 04:00 Mechanical Ventilator 01/02/20 04:00 97.5 79 18 102/58 (73) 99 01/02/20 03:30 57 17 30 01/02/20 03:30 57 01/02/20 01:15 56 18 100 Mechanical Ventilator 30 62 19 30 01/02/20 00:00 40 01/02/20 00:00 Mechanical Ventilator 01/02/20 00:00 97.3 56 18 100/69 (79) 100 01/01/20 23:32 54 01/01/20 23:30 54 16 30 01/01/20 20:35 65 18 30 01/01/20 20:00 Mechanical Ventilator 01/01/20 20:00 97.4 64 18 106/63 (77) 100 01/01/20 20:00 40 01/01/20 19:34 64 01/01/20 19:30 64 17 100 Mechanical Ventilator 30 70 19 30 01/01/20 18:00 98.7 85 18 112/68 (83) 98 01/01/20 16:55 66 19 30 01/01/20 16:00 40 01/01/20 16:00 92 01/01/20 16:00 98.4 88 18 108/67 (81) 98 01/01/20 16:00 92 01/01/20 16:00 Mechanical Ventilator 01/01/20 15:10 89 23 30 01/01/20 14:37 68 15 30 01/01/20 13:44 67 14 100 Mechanical Ventilator 30 71 14 30 01/01/20 12:00 70 01/01/20 12:00 30 01/01/20 12:00 97.8 82 18 105/61 (76) 98 01/01/20 12:00 Mechanical Ventilator 01/01/20 10:45 75 16 30 01/01/20 10:00 98.7 01/01/20 08:50 88 15 30 01/01/20 08:30 99 100/70 01/01/20 08:00 114 01/01/20 08:00 Mechanical Ventilator 01/01/20 08:00 30 01/01/20 08:00 101.5 99 18 100/70 (80) 98 01/01/20 07:12 116 15 100 Mechanical Ventilator 30 112 15 30 Intake and Output 01/02/20 01/03/20 19:00 07:00 Intake Total 1466.6667 ml 614.0 ml Output Total 850 ml 250 ml Balance 616.6667 ml 364.0 ml IV Total 1266.6667 ml 614.0 ml Other 200 ml Output Urine Total 450 ml 250 ml Stool Total 400 ml # Bowel Movements 2 4 Labs Test 12/31/19 17:00 12/31/19 18:25 12/31/19 18:30 12/31/19 22:00 White Blood Count 24.7 K/UL (4.8-10.8) Red Blood Count 2.25 M/UL (4.20-5.40) Hemoglobin 7.0 G/DL (12.0-16.0) Hematocrit 21.3 % (37.0-47.0) Mean Corpuscular Volume 95 FL (80-99) Mean Corpuscular Hemoglobin 31.0 PG (27.0-31.0) Mean Corpuscular Hemoglobin Concent 32.7 G/DL (32.0-36.0) Red Cell Distribution Width 15.4 % (11.6-14.8) Platelet Count 231 K/UL (150-450) Mean Platelet Volume 8.4 FL (6.5-10.1) Neutrophils (%) (Auto) % (45.0-75.0) Lymphocytes (%) (Auto) % (20.0-45.0) Monocytes (%) (Auto) % (1.0-10.0) Eosinophils (%) (Auto) % (0.0-3.0) Basophils (%) (Auto) % (0.0-2.0) Differential Total Cells Counted 100 Neutrophils % (Manual) 72 % (45-75) Lymphocytes % (Manual) 23 % (20-45) Monocytes % (Manual) 3 % (1-10) Eosinophils % (Manual) 0 % (0-3) Basophils % (Manual) 1 % (0-2) Band Neutrophils 1 % (0-8) Platelet Estimate Adequate Platelet Morphology Normal Polychromasia 1+ Anisocytosis 1+ Prothrombin Time 11.0 SEC (9.30-11.50) Prothromb Time International Ratio 1.0 (0.9-1.1) Activated Partial Thromboplast Time 23 SEC (23-33) Urine Color Yellow Urine Appearance Clear Urine pH 5.0 (4.5-8.0) Urine Specific [place] 1.015 (1.005-1.035) Urine Protein Negative (NEGATIVE) Urine Glucose (UA) Negative (NEGATIVE) Urine Ketones Negative (NEGATIVE) Urine Blood Negative (NEGATIVE) Urine Nitrite Negative (NEGATIVE) Urine Bilirubin Negative (NEGATIVE) Urine Urobilinogen Normal MG/DL (0.0-1.0) Urine Leukocyte Esterase Negative (NEGATIVE) Sodium Level 149 MMOL/L (136-145) Potassium Level 3.0 MMOL/L (3.5-5.1) Chloride Level 108 MMOL/L (98-107) Carbon Dioxide Level 34 MMOL/L (21-32) Anion Gap 8 mmol/L (5-15) Blood Urea Nitrogen 84 mg/dL (7-18) Creatinine 0.7 MG/DL (0.55-1.30) Estimat Glomerular Filtration Rate > 60 mL/min (>60) Glucose Level 86 MG/DL (74-106) Lactic Acid Level 2.90 mmol/L (0.4-2.0) 1.10 mmol/L (0.66-2.22) Calcium Level 8.8 MG/DL (8.5-10.1) Phosphorus Level 2.7 MG/DL (2.5-4.9) Magnesium Level 2.2 MG/DL (1.8-2.4) Total Bilirubin 0.2 MG/DL (0.2-1.0) Aspartate Amino Transf (AST/SGOT) 67 U/L (15-37) Alanine Aminotransferase (ALT/SGPT) 154 U/L (12-78) Alkaline Phosphatase 142 U/L (46-116) Total Creatine Kinase 195 U/L (26-308) Creatine Kinase MB 6.6 NG/ML (0.0-3.6) Creatine Kinase MB Relative Index 3.3 Troponin I 0.039 ng/mL (0.000-0.056) Total Protein 6.6 G/DL (6.4-8.2) Albumin 2.7 G/DL (3.4-5.0) Globulin 3.9 g/dL Albumin/Globulin Ratio 0.7 (1.0-2.7) Arterial Blood pH 7.446 (7.350-7.450) Arterial Blood Partial Pressure CO2 41.6 mmHg (35.0-45.0) Arterial Blood Partial Pressure O2 148.8 mmHg (75.0-100.0) Arterial Blood HCO3 28.0 mmol/L (22.0-26.0) Arterial Blood Oxygen Saturation 98.3 % (95-100) Arterial Blood Base Excess 3.6 (-2-2) [place] Test Positive Stool Occult Blood Positive (NEGATIVE) Test 01/01/20 06:15 01/02/20 03:10 01/02/20 09:15 01/02/20 16:30 White Blood Count 16.0 K/UL (4.8-10.8) 15.4 K/UL (4.8-10.8) 16.1 K/UL (4.8-10.8) 16.2 K/UL (4.8-10.8) Red Blood Count 2.45 M/UL (4.20-5.40) 2.59 M/UL (4.20-5.40) 2.64 M/UL (4.20-5.40) 2.49 M/UL (4.20-5.40) Hemoglobin 7.4 G/DL (12.0-16.0) 7.9 G/DL (12.0-16.0) 7.9 G/DL (12.0-16.0) 7.7 G/DL (12.0-16.0) Hematocrit 22.7 % (37.0-47.0) 23.8 % (37.0-47.0) 24.6 % (37.0-47.0) 23.3 % (37.0-47.0) Mean Corpuscular Volume 93 FL (80-99) 92 FL (80-99) 93 FL (80-99) 94 FL (80- 99) Mean Corpuscular Hemoglobin 30.3 PG (27.0-31.0) 30.6 PG (27.0-31.0) 30.0 PG (27.0-31.0) 30.8 PG (27.0-31.0) Mean Corpuscular Hemoglobin Concent 32.7 G/DL (32.0-36.0) 33.2 G/DL (32.0-36.0) 32.3 G/DL (32.0-36.0) 32.9 G/DL (32.0-36.0) Red Cell Distribution Width 14.6 % (11.6-14.8) 14.5 % (11.6-14.8) 14.5 % (11.6-14.8) 15.2 % (11.6-14.8) Platelet Count 197 K/UL (150-450) 159 K/UL (150-450) 164 K/UL (150-450) 167 K/UL (150-450) Mean Platelet Volume 7.9 FL (6.5-10.1) 7.9 FL (6.5-10.1) 8.2 FL (6.5-10.1) 8.6 FL (6.5-10.1) Neutrophils (%) (Auto) % (45.0-75.0) % (45.0-75.0) % (45.0-75.0) 67.8 % (45.0-75.0) Lymphocytes (%) (Auto) % (20.0-45.0) % (20.0-45.0) % (20.0-45.0) 17.4 % (20.0-45.0) Monocytes (%) (Auto) % (1.0-10.0) % (1.0-10.0) % (1.0-10.0) 8.4 % (1.0-10.0) Eosinophils (%) (Auto) % (0.0-3.0) % (0.0-3.0) % (0.0-3.0) 5.9 % (0.0-3.0) Basophils (%) (Auto) % (0.0-2.0) % (0.0-2.0) % (0.0-2.0) 0.7 % (0.0-2.0) Differential Total Cells Counted 100 100 100 Neutrophils % (Manual) 78 % (45-75) 68 % (45-75) 73 % (45-75) Lymphocytes % (Manual) 14 % (20-45) 18 % (20-45) 14 % (20-45) Monocytes % (Manual) 8 % (1-10) 9 % (1-10) 6 % (1-10) Eosinophils % (Manual) 0 % (0-3) 5 % (0-3) 7 % (0-3) Basophils % (Manual) 0 % (0-2) 0 % (0-2) 0 % (0-2) Band Neutrophils 0 % (0-8) 0 % (0-8) 0 % (0-8) Platelet Estimate Adequate Adequate Adequate Platelet Morphology Normal Normal Normal Hypochromasia 3+ 1+ 1+ Anisocytosis 1+ 1+ 1+ Sodium Level 151 MMOL/L (136-145) 144 MMOL/L (136-145) Potassium Level 2.9 MMOL/L (3.5-5.1) 3.0 MMOL/L (3.5-5.1) Chloride Level 112 MMOL/L (98-107) 108 MMOL/L (98-107) Carbon Dioxide Level 30 MMOL/L (21-32) 30 MMOL/L (21-32) Anion Gap 9 mmol/L (5-15) 6 mmol/L (5-15) Blood Urea Nitrogen 47 mg/dL (7-18) 22 mg/dL (7-18) Creatinine 0.6 MG/DL (0.55-1.30) 0.5 MG/DL (0.55-1.30) Estimat Glomerular Filtration Rate > 60 mL/min (>60) > 60 mL/min (>60) Glucose Level 108 MG/DL (74-106) 89 MG/DL (74-106) Calcium Level 9.0 MG/DL (8.5-10.1) 8.8 MG/DL (8.5-10.1) Pro-B-Type Natriuretic Peptide 597 pg/mL (0-125) 441 pg/mL (0-125) Polychromasia 1+ 1+ Hemoglobin A1c 4.8 % (4.3-6.0) Uric Acid 3.3 MG/DL (2.6-7.2) Phosphorus Level 2.2 MG/DL (2.5-4.9) Magnesium Level 1.8 MG/DL (1.8-2.4) Total Bilirubin 0.4 MG/DL (0.2-1.0) Gamma Glutamyl Transpeptidase 131 U/L (5-85) Aspartate Amino Transf (AST/SGOT) 83 U/L (15-37) Alanine Aminotransferase (ALT/SGPT) 129 U/L (12-78) Alkaline Phosphatase 111 U/L (46-116) C-Reactive Protein, Quantitative < 0.4 mg/dL (0.00-0.90) Total Protein 5.8 G/DL (6.4-8.2) Albumin 2.2 G/DL (3.4-5.0) Globulin 3.6 g/dL Albumin/Globulin Ratio 0.6 (1.0-2.7) Triglycerides Level 71 MG/DL (30-150) Cholesterol Level < 50 MG/DL (< 200) LDL Cholesterol 17 mg/dL (<100) HDL Cholesterol 23 MG/DL (40-60) Cholesterol/HDL Ratio 2.2 (3.3-4.4) Vitamin B12 Level 1155 PG/ML (193-986) Folate 75.0 NG/ML (8.6-58.9) Thyroid Stimulating Hormone (TSH) 3.525 uiU/mL (0.358-3.740) Test 01/03/20 02:55 White Blood Count 16.8 K/UL (4.8-10.8) Red Blood Count 2.49 M/UL (4.20-5.40) Hemoglobin 7.7 G/DL (12.0-16.0) Hematocrit 23.3 % (37.0-47.0) Mean Corpuscular Volume 93 FL (80-99) Mean Corpuscular Hemoglobin 30.7 PG (27.0-31.0) Mean Corpuscular Hemoglobin Concent 32.9 G/DL (32.0-36.0) Red Cell Distribution Width 14.1 % (11.6-14.8) Platelet Count 61 K/UL (150-450) Mean Platelet Volume 6.5 FL (6.5-10.1) Neutrophils (%) (Auto) % (45.0-75.0) Lymphocytes (%) (Auto) % (20.0-45.0) Monocytes (%) (Auto) % (1.0-10.0) Eosinophils (%) (Auto) % (0.0-3.0) Basophils (%) (Auto) % (0.0-2.0) Sodium Level 140 MMOL/L (136-145) Potassium Level 3.6 MMOL/L (3.5-5.1) Chloride Level 108 MMOL/L (98-107) Carbon Dioxide Level 24 MMOL/L (21-32) Anion Gap 9 mmol/L (5-15) Blood Urea Nitrogen 12 mg/dL (7-18) Creatinine 0.5 MG/DL (0.55-1.30) Estimat Glomerular Filtration Rate > 60 mL/min (>60) Glucose Level 72 MG/DL (74-106) Calcium Level 8.8 MG/DL (8.5-10.1) Phosphorus Level 2.8 MG/DL (2.5-4.9) Magnesium Level 1.6 MG/DL (1.8-2.4) Total Bilirubin 0.5 MG/DL (0.2-1.0) Aspartate Amino Transf (AST/SGOT) 86 U/L (15-37) Alanine Aminotransferase (ALT/SGPT) 138 U/L (12-78) Alkaline Phosphatase 138 U/L (46-116) Total Protein 5.5 G/DL (6.4-8.2) Albumin 2.4 G/DL (3.4-5.0) Globulin 3.1 g/dL Albumin/Globulin Ratio 0.8 (1.0-2.7) Height (Feet): 5 Height (Inches): 1.00 Weight (Pounds): 81 Objective Vital Signs General Appearance: ++ cachectic, chronically ill HEENT: normocephalic, atraumatic ++ trach Resp: other -. vent Cardiovascular: regular rate, rhythm, no edema Gastrointestinal: gtube in place, without erythema Rectal: other - Hemoccult positive [place]: back normal, gait/station normal, non-tender Lymphatic: no adenopathy Baltazar Cortes MD Jan 03, 2020 07:13
--- NOTE | 2020-01-03 07:16 | Infectious Diseases Prog Note ---
Assessment/Plan 39yo F with: Fever to 101.5 Possible pna on CXR Leukocytosis to 24, improving Recurrent GIB 12/30 BCx 1/2 +CONS 12/30 UA neg, COVID rapid Ag neg 12/30 CXR 1. Density overlying the bilateral lung apices. May represent pleural thickening, multifocal airspace opacities, versus summation artifact. Possible Scabies SP tx w/ Permethrin and Ivermectin 12/31 R/o DVT: None on US 12/30 Recurrent GIBs, FOBT+ Hepatic encephalopathy, chronic S/p Trach/PEG Resides at SNF Plan: Stop vanco #2 given CONS in BCx, contaminant Stop empiric Zosyn #2 given neg BCx Start CTX 1g IV daily #1 for SBP ppx in the setting of GIB F/u MRSA nares For possible Scabies, can repeat ivermectin at day 7 (01/07) to ensure complete tx F/u BCx Trend WBC Monitor CBC/CMP Monitor resp status Monitor temp and hemodynamics D/w RN Thank you for this consult. [facility] will continue to follow. Subjective Allergies: Coded Allergies: CARBAMAZEPINE (Verified Allergy, Unknown, 12/31/19) LORAZEPAM (Verified Allergy, Unknown, 12/31/19) AF Ongoing GIB WBC improving to 13 Ongoing melena, but starting feeds Objective Last 24 Hour Vital Signs Date Time Temp Pulse Resp B/P (MAP) Pulse Ox O2 Delivery O2 Flow Rate FiO2 01/03/20 05:03 63 20 30 01/03/20 04:00 40 01/03/20 04:00 97.9 59 19 125/75 (92) 100 01/03/20 04:00 Mechanical Ventilator 01/03/20 03:35 58 01/03/20 03:20 54 19 30 01/03/20 01:06 55 14 100 Mechanical Ventilator 30 52 14 30 01/03/20 00:00 40 01/03/20 00:00 Mechanical Ventilator 01/03/20 00:00 98.1 69 17 107/67 (80) 100 01/02/20 23:33 62 01/02/20 23:20 60 20 30 01/02/20 20:46 53 21 30 01/02/20 20:00 97.5 60 18 108/48 (68) 100 01/02/20 20:00 Mechanical Ventilator 01/02/20 20:00 40 01/02/20 19:24 46 01/02/20 19:01 47 19 100 Mechanical Ventilator 30 46 13 30 01/02/20 18:00 53 18 112/51 (71) 99 01/02/20 17:17 51 17 30 01/02/20 16:00 56 01/02/20 16:00 Mechanical Ventilator 01/02/20 16:00 98.1 64 18 92/63 (73) 99 01/02/20 16:00 40 01/02/20 15:50 53 19 30 01/02/20 15:27 56 18 100 01/02/20 15:26 54 18 100 01/02/20 14:34 55 18 102/55 (71) 99 01/02/20 14:20 50 12 100 Mechanical Ventilator 30 52 12 30 01/02/20 13:38 80 18 95/53 (67) 99 01/02/20 13:37 89 18 97/55 (69) 99 01/02/20 12:48 75 18 113/52 (72) 99 01/02/20 12:47 70 18 104/48 (66) 99 01/02/20 12:33 85 18 92/64 (73) 99 01/02/20 12:00 61 01/02/20 12:00 40 01/02/20 12:00 Mechanical Ventilator 01/02/20 11:01 64 18 88/64 (72) 99 01/02/20 10:53 56 22 30 01/02/20 10:10 97.7 64 18 92/63 (73) 99 01/02/20 09:20 65 21 30 01/02/20 08:00 40 01/02/20 08:00 66 01/02/20 08:00 Mechanical Ventilator 01/02/20 07:13 61 18 100 Mechanical Ventilator 30 62 19 30 Height (Feet): 5 Height (Inches): 1.00 Weight (Pounds): 81 Gen: Young woman, chronically ill appearing HEENT: Trach CV: RRR Pulm: CTAB anteriorly on vent Abd: Thin, soft, NTND +PEG Ext: Thin, no c/c/e Microbiology Date/Time Source Procedure Growth Status 12/31/19 17:15 Blood Blood Culture - Preliminary Staphylococcus Sp Coag Neg Resulted 12/31/19 17:00 Blood Blood Culture - Preliminary NO GROWTH AFTER 48 HOURS Resulted 12/31/19 17:00 Nasopharynx SARS-CoV-2 RdRp Gene Assay - Final Complete Laboratory Tests Test 01/02/20 09:15 01/02/20 16:30 01/03/20 02:55 White Blood Count 16.1 K/UL (4.8-10.8) H 16.2 K/UL (4.8-10.8) H 16.8 K/UL (4.8-10.8) H Red Blood Count 2.64 M/UL (4.20-5.40) L 2.49 M/UL (4.20-5.40) L 2.49 M/UL (4.20-5.40) L Hemoglobin 7.9 G/DL (12.0-16.0) L 7.7 G/DL (12.0-16.0) L 7.7 G/DL (12.0-16.0) L Hematocrit 24.6 % (37.0-47.0) L 23.3 % (37.0-47.0) L 23.3 % (37.0-47.0) L Mean Corpuscular Volume 93 FL (80-99) 94 FL (80-99) 93 FL (80-99) Mean Corpuscular Hemoglobin 30.0 PG (27.0-31.0) 30.8 PG (27.0-31.0) 30.7 PG (27.0-31.0) Mean Corpuscular Hemoglobin Concent 32.3 G/DL (32.0-36.0) 32.9 G/DL (32.0-36.0) 32.9 G/DL (32.0-36.0) Red Cell Distribution Width 14.5 % (11.6-14.8) 15.2 % (11.6-14.8) H 14.1 % (11.6-14.8) Platelet Count 164 K/UL (150-450) 167 K/UL (150-450) 61 K/UL (150-450) #L Mean Platelet Volume 8.2 FL (6.5-10.1) 8.6 FL (6.5-10.1) 6.5 FL (6.5-10.1) Neutrophils (%) (Auto) % (45.0-75.0) 67.8 % (45.0-75.0) % (45.0-75.0) Lymphocytes (%) (Auto) % (20.0-45.0) 17.4 % (20.0-45.0) L % (20.0-45.0) Monocytes (%) (Auto) % (1.0-10.0) 8.4 % (1.0-10.0) % (1.0-10.0) Eosinophils (%) (Auto) % (0.0-3.0) 5.9 % (0.0-3.0) H % (0.0-3.0) Basophils (%) (Auto) % (0.0-2.0) 0.7 % (0.0-2.0) % (0.0-2.0) Differential Total Cells Counted 100 Neutrophils % (Manual) 73 % (45-75) Pending Lymphocytes % (Manual) 14 % (20-45) L Pending Monocytes % (Manual) 6 % (1-10) Eosinophils % (Manual) 7 % (0-3) H Basophils % (Manual) 0 % (0-2) Band Neutrophils 0 % (0-8) Platelet Estimate Adequate Pending Platelet Morphology Normal Pending Polychromasia 1+ Hypochromasia 1+ Anisocytosis 1+ Sodium Level 140 MMOL/L (136-145) Potassium Level 3.6 MMOL/L (3.5-5.1) Chloride Level 108 MMOL/L (98-107) H Carbon Dioxide Level 24 MMOL/L (21-32) Anion Gap 9 mmol/L (5-15) Blood Urea Nitrogen 12 mg/dL (7-18) Creatinine 0.5 MG/DL (0.55-1.30) L Estimat Glomerular Filtration Rate > 60 mL/min (>60) Glucose Level 72 MG/DL (74-106) L Calcium Level 8.8 MG/DL (8.5-10.1) Phosphorus Level 2.8 MG/DL (2.5-4.9) Magnesium Level 1.6 MG/DL (1.8-2.4) L Total Bilirubin 0.5 MG/DL (0.2-1.0) Aspartate Amino Transf (AST/SGOT) 86 U/L (15-37) H Alanine Aminotransferase (ALT/SGPT) 138 U/L (12-78) H Alkaline Phosphatase 138 U/L (46-116) H Total Protein 5.5 G/DL (6.4-8.2) L Albumin 2.4 G/DL (3.4-5.0) L Globulin 3.1 g/dL Albumin/Globulin Ratio 0.8 (1.0-2.7) L Current Medications Medications (Trade) Dose Ordered Sig/Villa Route PRN Reason Start Time Stop Time Status Last Admin Dose Admin Acetaminophen (Tylenol) 650 mg Q6H PRN GT Temp >100.5 01/01/20 11:00 01/31/20 10:59 Albuterol/ Ipratropium (Albuterol/ Ipratropium) 3 ml Q4HRT PRN HHN Shortness of Breath 01/01/20 10:00 01/06/20 09:59 Albuterol/ Ipratropium (Albuterol/ Ipratropium) 3 ml Q6HRT HHN 01/01/20 01:00 01/06/20 00:59 01/03/20 01:04 Ascorbic Acid (Vitamin C) 500 mg DAILY ORAL 01/01/20 09:00 01/31/20 08:59 01/02/20 08:44 Clonazepam (KlonoPIN) 1 mg Q6H ORAL 12/31/19 21:00 01/07/20 20:59 01/01/20 20:07 Dextrose 1,000 ml @ 50 mls/hr Q20H IV 01/01/20 11:00 01/31/20 10:59 01/03/20 03:51 Docusate Sodium (Colace) 100 mg DAILY ORAL 01/01/20 09:00 01/31/20 08:59 Gabapentin (Neurontin) 300 mg EVERY 8 HOURS ORAL 12/31/19 22:00 01/30/20 21:59 01/03/20 05:05 Haloperidol Lactate (Haldol) 5 mg Q6H PRN IM Agitation 01/01/20 23:30 02/15/20 23:29 Levetiracetam (Keppra) 1,000 mg DAILY ORAL 01/01/20 09:00 01/31/20 08:59 01/02/20 08:44 Levothyroxine Sodium (Synthroid) 75 mcg DAILY ORAL 01/01/20 09:00 01/31/20 08:59 01/02/20 08:44 Loperamide HCl (Imodium) 2 mg Q12HR PRN ORAL Diarrhea 12/31/19 21:15 01/30/20 21:14 Magnesium Hydroxide (Mom) 30 ml DAILY ORAL 01/01/20 09:00 01/31/20 08:59 Midodrine (Pro-Amatine) 10 mg THREE TIMES A DAY ORAL 01/02/20 13:27 04/01/20 13:26 01/02/20 18:31 Multivitamins Therapeutic (Therapeutic Multivitamin) 1 ea DAILY ORAL 01/01/20 09:00 01/31/20 08:59 01/02/20 08:44 Ondansetron HCl (Zofran) 4 mg Q6H PRN ORAL Nausea & Vomiting 12/31/19 21:00 01/30/20 20:59 Pantoprazole (Protonix) 40 mg EVERY 12 HOURS IVP 01/01/20 09:00 01/31/20 08:59 01/02/20 20:02 Piperacillin Sod/ Tazobactam Sod 3.375 gm/Sodium Chloride 110 ml @ 27.5 mls/hr Q8H IVPB 01/02/20 12:00 01/09/20 11:59 01/03/20 03:52 Potassium Phosphate 20 mm/ Sodium Chloride 281.6667 ml @ 46.944 m... ONCE IV 01/02/20 12:00 02/01/20 11:59 01/02/20 12:23 Rifaximin (Xifaxan) 550 mg TWICE A DAY ORAL 01/01/20 09:00 01/08/20 08:59 01/02/20 18:31 Thiamine HCl (Vitamin B1) 100 mg DAILY ORAL 01/01/20 09:00 01/31/20 08:59 01/02/20 08:44 Tramadol HCl (Ultram) 50 mg Q6H PRN ORAL For Pain (4-10) 12/31/19 21:15 01/07/20 20:59 Vancomycin HCl (Vanco pharmacy to dose) 1 ea DAILY PRN MISC Per rx protocol 01/01/20 09:15 01/31/20 09:14 Vancomycin HCl 750 mg/Dextrose 275 ml @ 183.333 mls/hr Q24H IVPB 01/02/20 08:00 01/07/20 07:59 01/02/20 10:09 Missy Rouse M.D. Jan 03, 2020 07:16
[2020-01-03 07:58] VITALS: BP 110/40
--- NOTE | 2020-01-03 08:00 | Progress Note ---
DATE: 01/02/2020 SUBJECTIVE: The patient is awake, alert, afebrile, not agitated. She has eye contact and longer attention span than previously. PHYSICAL EXAMINATION: VITAL SIGNS: Blood pressure 102/55, pulse is 55, respirations are 18, and temperature is 97.7. HEENT: Eyes were normal. ENT, mucous membranes were moist and intact. NECK: Supple with no JVD without lymph nodes. Tracheostomy site is clean. LUNGS: Clear without rhonchi, rales, or wheezing. HEART: Normal sounds with regular beats. There is no tachycardia at rest. ABDOMEN: Soft and nontender with normal bowel sounds. Gastrostomy site is clean. EXTREMITIES: Warm without cyanosis, clubbing, or edema. LABORATORY AND DIAGNOSTIC DATA: Hemoglobin is 7.7, hematocrit is 23.2 with MCV of 94, WBC of 16.2, and platelets is 167. Her BUN and creatinine is 22 and 0.5 respectively. Her sodium is 134, potassium 3.9, chloride 108, CO2 is 30. Hemoglobin A1c is 4.8, uric acid is 3.3, phosphorus is 2.2, magnesium is 1.8. , SGOT 83, SGPT is 111 and CRP is not detected. Her proBNP was . Her albumin is 2.2 and total protein is 5.8. LDL cholesterol is 17. IMPRESSION: The patient's condition has markedly improved. The patient developed respiratory distress. She is status post GI bleed, hemoglobin of 7.9. PLAN: The patient is scheduled to undergo upper GI endoscopy because of her bleeding. Repeat laboratory tests will be done in the a.m. Glenny Bishop M.D. DR: Abdoulaye JOB#: [id number] CC:
[2020-01-03] MEDS: cefTRIAXone 1gm/D5W 55ml IVPB SCH ×2 (08:22)
[2020-01-03] MEDS: Pantoprazole Inj IVP SCH ×2 (08:22→20:31)
[2020-01-03] MEDS: Multivitamin w/Minerals tab ORAL SCH (08:22)
[2020-01-03] MEDS: Ascorbic Acid 500mg tab ORAL SCH (08:23)
[2020-01-03] MEDS: Thiamine 100mg tab ORAL SCH (08:23)
[2020-01-03] MEDS: Docusate 100mg cap ORAL SCH (08:24)
[2020-01-03] MEDS: Milk of Magnesia 30ml Ud ORAL SCH (08:25)
[2020-01-03] MEDS: Midodrine 10mg tab ORAL SCH ×3 (08:25→17:29)
[2020-01-03 09:20] LABS: HEMATOCRIT 24.2 % (37.0-47.0); HEMOGLOBIN 7.9 G/DL (12.0-16.0); MEAN CORPUSCULAR VOLUME 93 FL (80-99); PLATELET COUNT 204 K/UL (150-450); RED BLOOD COUNT 2.61 M/UL (4.20-5.40); RED CELL DISTRIBUTION WIDTH 13.9 % (11.6-14.8); WHITE BLOOD COUNT 13.6 K/UL (4.8-10.8)
--- NOTE | 2020-01-03 09:46 | General Progress Note ---
Assessment/Plan Problem List: (1) G tube feedings ICD Codes: Z93.1 - Gastrostomy status SNOMED: 413707392, 378978968, 310779607 (2) GI bleed ICD Codes: K92.2 - Gastrointestinal hemorrhage, unspecified SNOMED: 44751920 (3) Sepsis ICD Codes: A41.9 - Sepsis, unspecified organism SNOMED: 84039438 (4) Pneumonia ICD Codes: J18.9 - Pneumonia, unspecified organism SNOMED: 177627077 Assessment/Plan: s/p EGD gastric ulcer no recurrent bleed start TF monitor H&H ppi Subjective ROS Limited/Unobtainable: No Allergies: Coded Allergies: CARBAMAZEPINE (Verified Allergy, Unknown, 12/31/19) LORAZEPAM (Verified Allergy, Unknown, 12/31/19) Objective Last 24 Hour Vital Signs Date Time Temp Pulse Resp B/P (MAP) Pulse Ox O2 Delivery O2 Flow Rate FiO2 01/03/20 09:30 60 15 100 Mechanical Ventilator 30 76 16 30 01/03/20 07:58 97.7 62 19 110/40 (63) 100 01/03/20 07:56 93 01/03/20 07:30 74 18 100 Mechanical Ventilator 30 76 16 30 01/03/20 05:03 63 20 30 01/03/20 04:00 40 01/03/20 04:00 97.9 59 19 125/75 (92) 100 01/03/20 04:00 Mechanical Ventilator 01/03/20 03:35 58 01/03/20 03:20 54 19 30 01/03/20 01:06 55 14 100 Mechanical Ventilator 30 52 14 30 01/03/20 00:00 40 01/03/20 00:00 Mechanical Ventilator 01/03/20 00:00 98.1 69 17 107/67 (80) 100 01/02/20 23:33 62 01/02/20 23:20 60 20 30 01/02/20 20:46 53 21 30 01/02/20 20:00 97.5 60 18 108/48 (68) 100 01/02/20 20:00 Mechanical Ventilator 01/02/20 20:00 40 01/02/20 19:24 46 01/02/20 19:01 47 19 100 Mechanical Ventilator 30 46 13 30 01/02/20 18:00 53 18 112/51 (71) 99 01/02/20 17:17 51 17 30 01/02/20 16:00 56 01/02/20 16:00 Mechanical Ventilator 01/02/20 16:00 98.1 64 18 92/63 (73) 99 01/02/20 16:00 40 01/02/20 15:50 53 19 30 01/02/20 15:27 56 18 100 01/02/20 15:26 54 18 100 01/02/20 14:34 55 18 102/55 (71) 99 01/02/20 14:20 50 12 100 Mechanical Ventilator 30 52 12 30 01/02/20 13:38 80 18 95/53 (67) 99 01/02/20 13:37 89 18 97/55 (69) 99 01/02/20 12:48 75 18 113/52 (72) 99 01/02/20 12:47 70 18 104/48 (66) 99 01/02/20 12:33 85 18 92/64 (73) 99 01/02/20 12:00 61 01/02/20 12:00 40 01/02/20 12:00 Mechanical Ventilator 01/02/20 11:01 64 18 88/64 (72) 99 01/02/20 10:53 56 22 30 01/02/20 10:10 97.7 64 18 92/63 (73) 99 Intake and Output 01/02/20 01/03/20 19:00 07:00 Intake Total 1466.6667 ml 614.0 ml Output Total 850 ml 250 ml Balance 616.6667 ml 364.0 ml IV Total 1266.6667 ml 614.0 ml Other 200 ml Output Urine Total 450 ml 250 ml Stool Total 400 ml # Bowel Movements 2 4 Laboratory Tests 01/02/20 16:30: White Blood Count 16.2H, Red Blood Count 2.49L, Hemoglobin 7.7L, Hematocrit 23.3L, Mean Corpuscular Volume 94, Mean Corpuscular Hemoglobin 30.8, Mean Corpuscular Hemoglobin Concent 32.9, Red Cell Distribution Width 15.2H, Platelet Count 167, Mean Platelet Volume 8.6, Neutrophils (%) (Auto) 67.8, Lymphocytes (%) (Auto) 17.4L, Monocytes (%) (Auto) 8.4, Eosinophils (%) (Auto) 5.9H, Basophils (%) (Auto) 0.7 01/03/20 02:55: White Blood Count 16.8H, Red Blood Count 2.49L, Hemoglobin 7.7L, Hematocrit 23.3L, Mean Corpuscular Volume 93, Mean Corpuscular Hemoglobin 30.7, Mean Corpuscular Hemoglobin Concent 32.9, Red Cell Distribution Width 14.1, Platelet Count 61#L, Mean Platelet Volume 6.5, Neutrophils (%) (Auto) , Lymphocytes (%) ( Auto) , Monocytes (%) (Auto) , Eosinophils (%) (Auto) , Basophils (%) (Auto) , Neutrophils % (Manual) [Pending], Lymphocytes % (Manual) [Pending], Platelet Estimate [Pending], Platelet Morphology [Pending], Sodium Level 140, Potassium Level 3.6, Chloride Level 108H, Carbon Dioxide Level 24, Anion Gap 9, Blood Urea Nitrogen 12, Creatinine 0.5L, Estimat Glomerular Filtration Rate > 60, Glucose Level 72L, Calcium Level 8.8, Phosphorus Level 2.8, Magnesium Level 1.6L , Total Bilirubin 0.5, Aspartate Amino Transf (AST/SGOT) 86H, Alanine Aminotransferase (ALT/SGPT) 138H, Alkaline Phosphatase 138H, Total Protein 5.5L , Albumin 2.4L, Globulin 3.1, Albumin/Globulin Ratio 0.8L 01/03/20 08:15: White Blood Count 13.6H, Red Blood Count 2.61L, Hemoglobin 7.9L, Hematocrit 24.2L, Mean Corpuscular Volume 93, Mean Corpuscular Hemoglobin 30.4, Mean Corpuscular Hemoglobin Concent 32.8, Red Cell Distribution Width 13.9, Platelet Count 204#, Mean Platelet Volume 8.7, Neutrophils (%) (Auto) , Lymphocytes (%) ( Auto) , Monocytes (%) (Auto) , Eosinophils (%) (Auto) , Basophils (%) (Auto) , Neutrophils % (Manual) [Pending], Lymphocytes % (Manual) [Pending], Platelet Estimate [Pending], Platelet Morphology [Pending] Height (Feet): 5 Height (Inches): 1.00 Weight (Pounds): 81 General Appearance: no apparent distress EENT: PERRL/EOMI Neck: supple Cardiovascular: normal rate Respiratory/Chest: decreased breath sounds Abdomen: normal bowel sounds, non tender, soft Extremities: non-tender Satish Carrillo MD Jan 03, 2020 09:46
--- NOTE | 2020-01-03 09:52 | Pulmonology Progress Note ---
Subjective ROS Limited/Unobtainable: Yes Allergies: Coded Allergies: CARBAMAZEPINE (Verified Allergy, Unknown, 12/31/19) LORAZEPAM (Verified Allergy, Unknown, 12/31/19) All Systems: reviewed and negative except above Subjective leuk trending down, afebrile this am CXR 01/01 no significant change now on SIMV mode no signs of resp distress ABG pending for this am more awake, eyes open, but poorly responsive s/p EGD 01/01 -> gastric ulcer across G tube site another episode of GI bleed this am, Hgb 7.9 K and P stable after replacement, low Mg Objective Last 24 Hour Vital Signs Date Time Temp Pulse Resp B/P (MAP) Pulse Ox O2 Delivery O2 Flow Rate FiO2 01/03/20 09:30 60 15 100 Mechanical Ventilator 30 76 16 30 01/03/20 07:58 97.7 62 19 110/40 (63) 100 01/03/20 07:30 74 18 100 Mechanical Ventilator 30 76 16 30 01/03/20 05:03 63 20 30 01/03/20 04:00 40 01/03/20 04:00 97.9 59 19 125/75 (92) 100 01/03/20 04:00 Mechanical Ventilator 01/03/20 03:35 58 01/03/20 03:20 54 19 30 01/03/20 01:06 55 14 100 Mechanical Ventilator 30 52 14 30 01/03/20 00:00 40 01/03/20 00:00 Mechanical Ventilator 01/03/20 00:00 98.1 69 17 107/67 (80) 100 01/02/20 23:33 62 01/02/20 23:20 60 20 30 01/02/20 20:46 53 21 30 01/02/20 20:00 97.5 60 18 108/48 (68) 100 01/02/20 20:00 Mechanical Ventilator 01/02/20 20:00 40 01/02/20 19:24 46 01/02/20 19:01 47 19 100 Mechanical Ventilator 30 46 13 30 01/02/20 18:00 53 18 112/51 (71) 99 01/02/20 17:17 51 17 30 01/02/20 16:00 56 01/02/20 16:00 Mechanical Ventilator 01/02/20 16:00 98.1 64 18 92/63 (73) 99 01/02/20 16:00 40 01/02/20 15:50 53 19 30 01/02/20 15:27 56 18 100 01/02/20 15:26 54 18 100 01/02/20 14:34 55 18 102/55 (71) 99 01/02/20 14:20 50 12 100 Mechanical Ventilator 30 52 12 30 01/02/20 13:38 80 18 95/53 (67) 99 01/02/20 13:37 89 18 97/55 (69) 99 01/02/20 12:48 75 18 113/52 (72) 99 01/02/20 12:47 70 18 104/48 (66) 99 01/02/20 12:33 85 18 92/64 (73) 99 01/02/20 12:00 61 01/02/20 12:00 40 01/02/20 12:00 Mechanical Ventilator 01/02/20 11:01 64 18 88/64 (72) 99 01/02/20 10:53 56 22 30 01/02/20 10:10 97.7 64 18 92/63 (73) 99 Intake and Output 01/02/20 01/03/20 19:00 07:00 Intake Total 1466.6667 ml 614.0 ml Output Total 850 ml 250 ml Balance 616.6667 ml 364.0 ml IV Total 1266.6667 ml 614.0 ml Other 200 ml Output Urine Total 450 ml 250 ml Stool Total 400 ml # Bowel Movements 2 4 Objective General Appearance: bedridden, chronically ill looking, older than her biological age ; vent dependent female ; on vent SIMV 450-30%-12, PEEP 5 Lines, tubes and drains: peripheral, trach HEENT: normocephalic, atraumatic Neck: trach - Portex #7, secretions small amount, yellow color, thick consistency Respiratory/Chest: few scattered rhonchi BL Cardiovascular/Chest: normal rate, regular rhythm Abdomen: non tender, soft, G tube Genitourinary/Rectal: [place] Extremities: no edema, muscle atrophy Neurologic: abnormal gait, poorly responsive, more awake , eyes open Musculoskeletal: atrophy Skin: maculopapular rash improving Microbiology Date/Time Source Procedure Growth Status 12/31/19 17:15 Blood Blood Culture - Preliminary Staphylococcus Sp Coag Neg Resulted 12/31/19 17:00 Blood Blood Culture - Preliminary NO GROWTH AFTER 48 HOURS Resulted 01/01/20 17:10 Sputum Induced Gram Stain - Final Resulted 01/01/20 17:10 Sputum Culture - Preliminary Gram Negative Bacillus 1 Resulted 12/31/19 17:00 Nasal Nares MRSA Culture - Final NO METHICILLIN RESISTANT STAPH AUREUS... Complete 12/31/19 17:00 Nasopharynx SARS-CoV-2 RdRp Gene Assay - Final Complete Laboratory Tests 01/02/20 16:30: White Blood Count 16.2H, Red Blood Count 2.49L, Hemoglobin 7.7L, Hematocrit 23.3L, Mean Corpuscular Volume 94, Mean Corpuscular Hemoglobin 30.8, Mean Corpuscular Hemoglobin Concent 32.9, Red Cell Distribution Width 15.2H, Platelet Count 167, Mean Platelet Volume 8.6, Neutrophils (%) (Auto) 67.8, Lymphocytes (%) (Auto) 17.4L, Monocytes (%) (Auto) 8.4, Eosinophils (%) (Auto) 5.9H, Basophils (%) (Auto) 0.7 01/03/20 02:55: White Blood Count 16.8H, Red Blood Count 2.49L, Hemoglobin 7.7L, Hematocrit 23.3L, Mean Corpuscular Volume 93, Mean Corpuscular Hemoglobin 30.7, Mean Corpuscular Hemoglobin Concent 32.9, Red Cell Distribution Width 14.1, Platelet Count 61#L, Mean Platelet Volume 6.5, Neutrophils (%) (Auto) , Lymphocytes (%) ( Auto) , Monocytes (%) (Auto) , Eosinophils (%) (Auto) , Basophils (%) (Auto) , Neutrophils % (Manual) [Pending], Lymphocytes % (Manual) [Pending], Platelet Estimate [Pending], Platelet Morphology [Pending], Sodium Level 140, Potassium Level 3.6, Chloride Level 108H, Carbon Dioxide Level 24, Anion Gap 9, Blood Urea Nitrogen 12, Creatinine 0.5L, Estimat Glomerular Filtration Rate > 60, Glucose Level 72L, Calcium Level 8.8, Phosphorus Level 2.8, Magnesium Level 1.6L , Total Bilirubin 0.5, Aspartate Amino Transf (AST/SGOT) 86H, Alanine Aminotransferase (ALT/SGPT) 138H, Alkaline Phosphatase 138H, Total Protein 5.5L , Albumin 2.4L, Globulin 3.1, Albumin/Globulin Ratio 0.8L 01/03/20 08:15: White Blood Count 13.6H, Red Blood Count 2.61L, Hemoglobin 7.9L, Hematocrit 24.2L, Mean Corpuscular Volume 93, Mean Corpuscular Hemoglobin 30.4, Mean Corpuscular Hemoglobin Concent 32.8, Red Cell Distribution Width 13.9, Platelet Count 204#, Mean Platelet Volume 8.7, Neutrophils (%) (Auto) , Lymphocytes (%) ( Auto) , Monocytes (%) (Auto) , Eosinophils (%) (Auto) , Basophils (%) (Auto) , Neutrophils % (Manual) [Pending], Lymphocytes % (Manual) [Pending], Platelet Estimate [Pending], Platelet Morphology [Pending] Current Medications Medications (Trade) Dose Ordered Sig/Villa Route PRN Reason Start Time Stop Time Status Last Admin Dose Admin Acetaminophen (Tylenol) 650 mg Q6H PRN GT Temp >100.5 01/01/20 11:00 01/31/20 10:59 Albuterol/ Ipratropium (Albuterol/ Ipratropium) 3 ml Q4HRT PRN HHN Shortness of Breath 01/01/20 10:00 01/06/20 09:59 Albuterol/ Ipratropium (Albuterol/ Ipratropium) 3 ml Q6HRT HHN 01/01/20 01:00 01/06/20 00:59 01/03/20 07:29 Ascorbic Acid (Vitamin C) 500 mg DAILY ORAL 01/01/20 09:00 01/31/20 08:59 01/03/20 08:23 Ceftriaxone Sodium 1 gm/ Dextrose 55 ml @ 110 mls/hr Q24H IVPB 01/03/20 09:00 01/10/20 08:59 01/03/20 08:22 Clonazepam (KlonoPIN) 1 mg Q6H ORAL 12/31/19 21:00 01/07/20 20:59 01/03/20 08:25 Dextrose 1,000 ml @ 50 mls/hr Q20H IV 01/01/20 11:00 01/31/20 10:59 01/03/20 03:51 Docusate Sodium (Colace) 100 mg DAILY ORAL 01/01/20 09:00 01/31/20 08:59 01/03/20 08:24 Gabapentin (Neurontin) 300 mg EVERY 8 HOURS ORAL 12/31/19 22:00 01/30/20 21:59 01/03/20 05:05 Haloperidol Lactate (Haldol) 5 mg Q6H PRN IM Agitation 01/01/20 23:30 02/15/20 23:29 Levetiracetam (Keppra) 1,000 mg DAILY ORAL 01/01/20 09:00 01/31/20 08:59 01/03/20 08:24 Levothyroxine Sodium (Synthroid) 75 mcg DAILY ORAL 01/01/20 09:00 01/31/20 08:59 01/03/20 08:25 Loperamide HCl (Imodium) 2 mg Q12HR PRN ORAL Diarrhea 12/31/19 21:15 01/30/20 21:14 Magnesium Hydroxide (Mom) 30 ml DAILY ORAL 01/01/20 09:00 01/31/20 08:59 01/03/20 08:25 Magnesium Sulfate 100 ml @ 100 mls/hr Q1H IVPB 01/03/20 08:00 01/03/20 11:59 01/03/20 08:22 Midodrine (Pro-Amatine) 10 mg THREE TIMES A DAY ORAL 01/02/20 13:27 04/01/20 13:26 01/03/20 08:25 Multivitamins Therapeutic (Therapeutic Multivitamin) 1 ea DAILY ORAL 01/01/20 09:00 01/31/20 08:59 01/03/20 08:22 Ondansetron HCl (Zofran) 4 mg Q6H PRN ORAL Nausea & Vomiting 12/31/19 21:00 01/30/20 20:59 Pantoprazole (Protonix) 40 mg EVERY 12 HOURS IVP 01/01/20 09:00 01/31/20 08:59 01/03/20 08:22 Potassium Phosphate 20 mm/ Sodium Chloride 281.6667 ml @ 46.944 m... ONCE IV 01/02/20 12:00 02/01/20 11:59 01/02/20 12:23 Rifaximin (Xifaxan) 550 mg TWICE A DAY ORAL 01/01/20 09:00 01/08/20 08:59 01/03/20 08:24 Thiamine HCl (Vitamin B1) 100 mg DAILY ORAL 01/01/20 09:00 01/31/20 08:59 01/03/20 08:23 Tramadol HCl (Ultram) 50 mg Q6H PRN ORAL For Pain (4-10) 12/31/19 21:15 01/07/20 20:59 Assessment/Plan Assessment/Plan ASSESSMENT VDRF/trach status Sepsis Possible pneumonia recurrent GI bleeding Anemia secondary to GI bleeding Aspiration risk Dysphagia, feeding by G-tube Chronic encephalopathy Acute kidney injury likely secondary to dehydration Electrolyte imbalance Severe protein calorie malnutrition Hypertension History of CVA Seizure disorder Psychiatric disorder Presumed scabies, s/p Rx Thrombocytopenia-transient- resolved PLAN OF CARE JULIANA vent support, pulm toilet ABG was stable on current settings, now on SIMV mode 450-30-12 PEEP5 , no signs of resp distress on these settings repeat ABG this am -pending fup with CXR today as ordered prior pulm toilet via HHN BCX 1/2 +CONS likely contaminant, off Vanco SCX + GNB, fup with final cx now on Ceftriaxone as per ID recs rapid COVID 19 NGT in ED aspiration precautions Venous Duplex BLE -negative, get SCD ( unable to give a/c given anemia) closely monitor hemodynamic status Protonix gtt NPO stool OB pending transfuse to keep Hgb > 7. heme and GI follows s/p EGD 01/01 -> gastric ulcer across G tube site , no active bleeding HH at baseline episode of GI bleed ing this am- per nursing , likely will need colonoscopy trend LFT monitor renal parameters, lytes, avoid nephrotoxic BUN trending down, creat stable, likely prerenal due to dehydration replace e/ lytes K and P stable after replacement, replace Mg as per nephro monitor volumes seizure precautions, continue Keppra, trend LFT BP management with current regimen SNF meds supportive care dietary eval s/p 12/31 Rx for presumed scabies with permethrin and Ivermectin, ID recommends to repeat Ivermectin in 7 days 01/07 case discussed and evaluated by supervising physician Ivanna Mora NP Jan 03, 2020 09:51
[2020-01-03 12:00] VITALS: BP 116/95
--- NOTE | 2020-01-03 13:23 | Surgery Progress Note ---
Surgery Progress Note Subjective Additional Comments no acute events labs reviewed exam stable comfortable no n/v/f/c Objective Last 24 Hour Vital Signs Date Time Temp Pulse Resp B/P (MAP) Pulse Ox O2 Delivery O2 Flow Rate FiO2 01/03/20 12:47 48 16 100 Mechanical Ventilator 30 62 15 30 01/03/20 12:00 30 01/03/20 12:00 97.2 54 18 116/95 (102) 100 01/03/20 12:00 56 01/03/20 12:00 Mechanical Ventilator 01/03/20 10:30 53 14 100 Mechanical Ventilator 30 76 16 30 01/03/20 09:30 60 15 100 Mechanical Ventilator 30 76 16 30 01/03/20 08:00 Mechanical Ventilator 01/03/20 08:00 40 01/03/20 07:58 97.7 62 19 110/40 (63) 100 01/03/20 07:56 93 01/03/20 07:30 74 18 100 Mechanical Ventilator 30 76 16 30 01/03/20 05:03 63 20 30 01/03/20 04:00 40 01/03/20 04:00 97.9 59 19 125/75 (92) 100 01/03/20 04:00 Mechanical Ventilator 01/03/20 03:35 58 01/03/20 03:20 54 19 30 01/03/20 01:06 55 14 100 Mechanical Ventilator 30 52 14 30 01/03/20 00:00 40 01/03/20 00:00 Mechanical Ventilator 01/03/20 00:00 98.1 69 17 107/67 (80) 100 01/02/20 23:33 62 01/02/20 23:20 60 20 30 01/02/20 20:46 53 21 30 01/02/20 20:00 97.5 60 18 108/48 (68) 100 01/02/20 20:00 Mechanical Ventilator 01/02/20 20:00 40 01/02/20 19:24 46 01/02/20 19:01 47 19 100 Mechanical Ventilator 30 46 13 30 01/02/20 18:00 53 18 112/51 (71) 99 01/02/20 17:17 51 17 30 01/02/20 16:00 56 01/02/20 16:00 Mechanical Ventilator 01/02/20 16:00 98.1 64 18 92/63 (73) 99 01/02/20 16:00 40 01/02/20 15:50 53 19 30 01/02/20 15:27 56 18 100 01/02/20 15:26 54 18 100 01/02/20 14:34 55 18 102/55 (71) 99 01/02/20 14:20 50 12 100 Mechanical Ventilator 30 52 12 30 01/02/20 13:38 80 18 95/53 (67) 99 01/02/20 13:37 89 18 97/55 (69) 99 I&O Intake and Output 01/02/20 01/03/20 19:00 07:00 Intake Total 1466.6667 ml 664.0 ml Output Total 850 ml 250 ml Balance 616.6667 ml 414.0 ml IV Total 1266.6667 ml 664.0 ml Other 200 ml Output Urine Total 450 ml 250 ml Stool Total 400 ml # Bowel Movements 2 4 Dressing: saturated, other Wound: other Cardiovascular: RSR Respiratory: decreased breath sounds Abdomen: soft, non-tender, present bowel sounds Extremities: no edema, no tenderness, no cyanosis Laboratory Tests Test 01/02/20 16:30 01/03/20 02:55 01/03/20 08:15 01/03/20 10:17 White Blood Count 16.2 K/UL (4.8-10.8) H 16.8 K/UL (4.8-10.8) H 13.6 K/UL (4.8-10.8) H Red Blood Count 2.49 M/UL (4.20-5.40) L 2.49 M/UL (4.20-5.40) L 2.61 M/UL (4.20-5.40) L Hemoglobin 7.7 G/DL (12.0-16.0) L 7.7 G/DL (12.0-16.0) L 7.9 G/DL (12.0-16.0) L Hematocrit 23.3 % (37.0-47.0) L 23.3 % (37.0-47.0) L 24.2 % (37.0-47.0) L Mean Corpuscular Volume 94 FL (80-99) 93 FL (80-99) 93 FL (80-99) Mean Corpuscular Hemoglobin 30.8 PG (27.0-31.0) 30.7 PG (27.0-31.0) 30.4 PG (27.0-31.0) Mean Corpuscular Hemoglobin Concent 32.9 G/DL (32.0-36.0) 32.9 G/DL (32.0-36.0) 32.8 G/DL (32.0-36.0) Red Cell Distribution Width 15.2 % (11.6-14.8) H 14.1 % (11.6-14.8) 13.9 % (11.6-14.8) Platelet Count 167 K/UL (150-450) 61 K/UL (150-450) #L 204 K/UL (150-450) # Mean Platelet Volume 8.6 FL (6.5-10.1) 6.5 FL (6.5-10.1) 8.7 FL (6.5-10.1) Neutrophils (%) (Auto) 67.8 % (45.0-75.0) % (45.0-75.0) % (45.0-75.0) Lymphocytes (%) (Auto) 17.4 % (20.0-45.0) L % (20.0-45.0) % (20.0-45.0) Monocytes (%) (Auto) 8.4 % (1.0-10.0) % (1.0-10.0) % (1.0-10.0) Eosinophils (%) (Auto) 5.9 % (0.0-3.0) H % (0.0-3.0) % (0.0-3.0) Basophils (%) (Auto) 0.7 % (0.0-2.0) % (0.0-2.0) % (0.0-2.0) Differential Total Cells Counted 100 100 Neutrophils % (Manual) 66 % (45-75) 70 % (45-75) Lymphocytes % (Manual) 10 % (20-45) L 13 % (20-45) L Monocytes % (Manual) 8 % (1-10) 8 % (1-10) Eosinophils % (Manual) 15 % (0-3) H 8 % (0-3) H Basophils % (Manual) 1 % (0-2) 1 % (0-2) Band Neutrophils 0 % (0-8) 0 % (0-8) Platelet Estimate Decreased L Adequate Platelet Morphology Normal Normal Hypochromasia 1+ 1+ Sodium Level 140 MMOL/L (136-145) Potassium Level 3.6 MMOL/L (3.5-5.1) Chloride Level 108 MMOL/L (98-107) H Carbon Dioxide Level 24 MMOL/L (21-32) Anion Gap 9 mmol/L (5-15) Blood Urea Nitrogen 12 mg/dL (7-18) Creatinine 0.5 MG/DL (0.55-1.30) L Estimat Glomerular Filtration Rate > 60 mL/min (>60) Glucose Level 72 MG/DL (74-106) L Calcium Level 8.8 MG/DL (8.5-10.1) Phosphorus Level 2.8 MG/DL (2.5-4.9) Magnesium Level 1.6 MG/DL (1.8-2.4) L Total Bilirubin 0.5 MG/DL (0.2-1.0) Aspartate Amino Transf (AST/SGOT) 86 U/L (15-37) H Alanine Aminotransferase (ALT/SGPT) 138 U/L (12-78) H Alkaline Phosphatase 138 U/L (46-116) H Total Protein 5.5 G/DL (6.4-8.2) L Albumin 2.4 G/DL (3.4-5.0) L Globulin 3.1 g/dL Albumin/Globulin Ratio 0.8 (1.0-2.7) L Arterial Blood pH 7.405 (7.350-7.450) Arterial Blood Partial Pressure CO2 36.9 mmHg (35.0-45.0) Arterial Blood Partial Pressure O2 139.3 mmHg (75.0-100.0) H Arterial Blood HCO3 22.6 mmol/L (22.0-26.0) Arterial Blood Oxygen Saturation 98.5 % (95-100) Arterial Blood Base Excess -1.9 (-2-2) Tacos Test Positive Plan Problems: (1) Pneumonia (2) Sepsis Assessment & Plan: leukocytosis anemia lactic acidosis agree with GI recommend EGD planned for 12/31 hold feeding for now trend h/h monitor for bleeding no acute hemorrhage will be available in event needs exploration for hemostasis prbc as per heme thank you will follow with recs Pt presented on admission in emaciated state. Pt has tracheostomy and GT. NO skin concerns noted to skin under collar of trach. NO erythema or evidence of skin erosion at GT site. Pt noted to have scaly pimple-like rash with webbing noted to R and L axillae, undersides of both breasts, Bilat groin and lower back. Tracking and webbing noted to hands and feet. Pt restless and scratching at skin. Non-Blanching erythema without induration or fluctuance noted to R and L hips and trochanteric areas.Non-blanching erythema noted along spine. Non-Blanching erythema without induration noted to Sacrum. Non-Blanching erythema noted to R and L Malleoli and both heels. Tx.Plan: Please apply Cavilon Skin Barrier to each bony Prominences at risks for Skin Breakdown. Cover each area with Optifoam drsgs. Change every 7 days and prn. Apply Moisture Barrier Paste to Sacrum. Cover with Optifoam drsg. Change every 3 days and prn. Reposition at least every 2hours or as tolerated. Off-load heels with pillow. APM/EMELI Mattress overlay. (3) GI bleed (4) G tube feedings Assessment & Plan: DAILY ESTIMATED NEEDS: Needs based on Underweight, critical care 37.3kg 30-40 kcals/kg 5738-5298 total kcals 1.25-2 g protein/kg 47-75 g total protein 25-35 mL/kg 933-1306 total fluid mLs NUTRITION DIAGNOSIS: Increased kcal and pro needs r/t underweight status as evidenced by BMI 14.1, pt is 68% of ideal body weight w/ generalized severe wasting, trach and peg dep. CURRENT TF: Now NPO- pending EGD ENTERAL NUTRITION RECOMMENDATIONS: As able, rec JEVITY 1.2 w/ goal of 50ml/hr x22 hrs to provide 1100ml, 1320 kcal, 61g pro, 888ml free H2O - As medically able, rec to start feeds of Jevity 1.2 @30ml/hr for 6 hrs. Advance as tolerated 10ml/hr q4-6 hrs to goal of 50ml/hr. - HOLD 1HR BEFORE AND AFTER SYNTHROID MEDS - Flush per . HOB over 30 degrees ------- ADDITIONAL RECOMMENDATIONS: 1) Per SNF: 5'4" and 81# Maintain calibrated bed scale wts w/ added P200 mattress 2) Lytes daily, replete as needed (low K, phos) 3) Skin integrity: add BRIAN VIA GT BID, continue Vit C 4) TF recs as above as medically able George [place] Jan 03, 2020 13:23
--- NOTE | 2020-01-03 14:18 | Nephrology Progress Note ---
Assessment/Plan Problem List: (1) RICHARD (acute kidney injury) (2) Dehydration (3) Anemia (4) GI bleed (5) Malnutrition (6) Seizure disorder (7) Electrolyte imbalance Assessment Renal failure, in the form of prerenal azotemia, most likely secondary to GI bleed GI bleed, leading to severe anemia Sepsis, pneumonia Chronic tracheostomy, ventilator dependent History of CVA History of seizure disorder History of psychiatric disorder Severe malnutrition Electrolyte abnormalities Plan January 02: Lab reviewed. Renal parameters stable. Continue per PMD and consultants. LFTs remain elevated. Continue to monitor. Continue slow hydration Discontinue blood pressure medications as her blood pressure is low Discontinue diuretics Monitor renal parameters Transfusion as needed GI evaluation Correct electrolyte abnormalities Check B12 level, folate, and thyroid function tests: Results noted Subjective ROS Limited/Unobtainable: Yes Objective Objective Last 24 Hour Vital Signs Date Time Temp Pulse Resp B/P (MAP) Pulse Ox O2 Delivery O2 Flow Rate FiO2 01/03/20 12:47 48 16 100 Mechanical Ventilator 30 62 15 30 01/03/20 12:00 30 01/03/20 12:00 97.2 54 18 116/95 (102) 100 01/03/20 12:00 56 01/03/20 12:00 Mechanical Ventilator 01/03/20 10:30 53 14 100 Mechanical Ventilator 30 76 16 30 01/03/20 09:30 60 15 100 Mechanical Ventilator 30 76 16 30 01/03/20 08:00 Mechanical Ventilator 01/03/20 08:00 40 01/03/20 07:58 97.7 62 19 110/40 (63) 100 01/03/20 07:56 93 01/03/20 07:30 74 18 100 Mechanical Ventilator 30 76 16 30 01/03/20 05:03 63 20 30 01/03/20 04:00 40 01/03/20 04:00 97.9 59 19 125/75 (92) 100 01/03/20 04:00 Mechanical Ventilator 01/03/20 03:35 58 01/03/20 03:20 54 19 30 01/03/20 01:06 55 14 100 Mechanical Ventilator 30 52 14 30 01/03/20 00:00 40 01/03/20 00:00 Mechanical Ventilator 01/03/20 00:00 98.1 69 17 107/67 (80) 100 01/02/20 23:33 62 01/02/20 23:20 60 20 30 01/02/20 20:46 53 21 30 01/02/20 20:00 97.5 60 18 108/48 (68) 100 01/02/20 20:00 Mechanical Ventilator 01/02/20 20:00 40 01/02/20 19:24 46 01/02/20 19:01 47 19 100 Mechanical Ventilator 30 46 13 30 01/02/20 18:00 53 18 112/51 (71) 99 01/02/20 17:17 51 17 30 01/02/20 16:00 56 01/02/20 16:00 Mechanical Ventilator 01/02/20 16:00 98.1 64 18 92/63 (73) 99 01/02/20 16:00 40 01/02/20 15:50 53 19 30 01/02/20 15:27 56 18 100 01/02/20 15:26 54 18 100 01/02/20 14:34 55 18 102/55 (71) 99 01/02/20 14:20 50 12 100 Mechanical Ventilator 30 52 12 30 Intake and Output 01/02/20 01/03/20 19:00 07:00 Intake Total 1466.6667 ml 664.0 ml Output Total 850 ml 250 ml Balance 616.6667 ml 414.0 ml IV Total 1266.6667 ml 664.0 ml Other 200 ml Output Urine Total 450 ml 250 ml Stool Total 400 ml # Bowel Movements 2 4 Current Medications Medications (Trade) Dose Ordered Sig/Villa Route PRN Reason Start Time Stop Time Status Last Admin Dose Admin Acetaminophen (Tylenol) 650 mg Q6H PRN GT Temp >100.5 01/01/20 11:00 01/31/20 10:59 Albuterol/ Ipratropium (Albuterol/ Ipratropium) 3 ml Q4HRT PRN HHN Shortness of Breath 01/01/20 10:00 01/06/20 09:59 Albuterol/ Ipratropium (Albuterol/ Ipratropium) 3 ml Q6HRT HHN 01/01/20 01:00 01/06/20 00:59 01/03/20 12:47 Ascorbic Acid (Vitamin C) 500 mg DAILY ORAL 01/01/20 09:00 01/31/20 08:59 8/19/20 08:23 Ceftriaxone Sodium 1 gm/ Dextrose 55 ml @ 110 mls/hr Q24H IVPB 01/03/20 09:00 01/10/20 08:59 01/03/20 08:22 Clonazepam (KlonoPIN) 1 mg Q6H ORAL 12/31/19 21:00 01/07/20 20:59 01/03/20 14:10 Dextrose 1,000 ml @ 50 mls/hr Q20H IV 01/01/20 11:00 01/31/20 10:59 01/03/20 03:51 Docusate Sodium (Colace) 100 mg DAILY ORAL 01/01/20 09:00 01/31/20 08:59 01/03/20 08:24 Gabapentin (Neurontin) 300 mg EVERY 8 HOURS ORAL 12/31/19 22:00 01/30/20 21:59 01/03/20 14:10 Haloperidol Lactate (Haldol) 5 mg Q6H PRN IM Agitation 01/01/20 23:30 02/15/20 23:29 Levetiracetam (Keppra) 1,000 mg DAILY ORAL 01/01/20 09:00 01/31/20 08:59 01/03/20 08:24 Levothyroxine Sodium (Synthroid) 75 mcg DAILY ORAL 01/01/20 09:00 01/31/20 08:59 01/03/20 08:25 Loperamide HCl (Imodium) 2 mg Q12HR PRN ORAL Diarrhea 12/31/19 21:15 01/30/20 21:14 Magnesium Hydroxide (Mom) 30 ml DAILY ORAL 01/01/20 09:00 01/31/20 08:59 01/03/20 08:25 Midodrine (Pro-Amatine) 10 mg THREE TIMES A DAY ORAL 01/02/20 13:27 04/01/20 13:26 01/03/20 14:10 Multivitamins Therapeutic (Therapeutic Multivitamin) 1 ea DAILY ORAL 01/01/20 09:00 01/31/20 08:59 01/03/20 08:22 Ondansetron HCl (Zofran) 4 mg Q6H PRN ORAL Nausea & Vomiting 12/31/19 21:00 01/30/20 20:59 Pantoprazole (Protonix) 40 mg EVERY 12 HOURS IVP 01/01/20 09:00 01/31/20 08:59 01/03/20 08:22 Rifaximin (Xifaxan) 550 mg TWICE A DAY ORAL 01/01/20 09:00 01/08/20 08:59 01/03/20 08:24 Thiamine HCl (Vitamin B1) 100 mg DAILY ORAL 01/01/20 09:00 01/31/20 08:59 01/03/20 08:23 Tramadol HCl (Ultram) 50 mg Q6H PRN ORAL For Pain (4-10) 12/31/19 21:15 01/07/20 20:59 Laboratory Tests 01/02/20 16:30: White Blood Count 16.2H, Red Blood Count 2.49L, Hemoglobin 7.7L, Hematocrit 23.3L, Mean Corpuscular Volume 94, Mean Corpuscular Hemoglobin 30.8, Mean Corpuscular Hemoglobin Concent 32.9, Red Cell Distribution Width 15.2H, Platelet Count 167, Mean Platelet Volume 8.6, Neutrophils (%) (Auto) 67.8, Lymphocytes (%) (Auto) 17.4L, Monocytes (%) (Auto) 8.4, Eosinophils (%) (Auto) 5.9H, Basophils (%) (Auto) 0.7 01/03/20 02:55: White Blood Count 16.8H, Red Blood Count 2.49L, Hemoglobin 7.7L, Hematocrit 23.3L, Mean Corpuscular Volume 93, Mean Corpuscular Hemoglobin 30.7, Mean Corpuscular Hemoglobin Concent 32.9, Red Cell Distribution Width 14.1, Platelet Count 61#L, Mean Platelet Volume 6.5, Neutrophils (%) (Auto) , Lymphocytes (%) ( Auto) , Monocytes (%) (Auto) , Eosinophils (%) (Auto) , Basophils (%) (Auto) , Differential Total Cells Counted 100, Neutrophils % (Manual) 66, Lymphocytes % ( Manual) 10L, Monocytes % (Manual) 8, Eosinophils % (Manual) 15H, Basophils % ( Manual) 1, Band Neutrophils 0, Platelet Estimate DecreasedL, Platelet Morphology Normal, Hypochromasia 1+, Sodium Level 140, Potassium Level 3.6, Chloride Level 108H, Carbon Dioxide Level 24, Anion Gap 9, Blood Urea Nitrogen 12, Creatinine 0.5L, Estimat Glomerular Filtration Rate > 60, Glucose Level 72L , Calcium Level 8.8, Phosphorus Level 2.8, Magnesium Level 1.6L, Total Bilirubin 0.5, Aspartate Amino Transf (AST/SGOT) 86H, Alanine Aminotransferase ( ALT/SGPT) 138H, Alkaline Phosphatase 138H, Total Protein 5.5L, Albumin 2.4L, Globulin 3.1, Albumin/Globulin Ratio 0.8L 01/03/20 08:15: White Blood Count 13.6H, Red Blood Count 2.61L, Hemoglobin 7.9L, Hematocrit 24.2L, Mean Corpuscular Volume 93, Mean Corpuscular Hemoglobin 30.4, Mean Corpuscular Hemoglobin Concent 32.8, Red Cell Distribution Width 13.9, Platelet Count 204#, Mean Platelet Volume 8.7, Neutrophils (%) (Auto) , Lymphocytes (%) ( Auto) , Monocytes (%) (Auto) , Eosinophils (%) (Auto) , Basophils (%) (Auto) , Differential Total Cells Counted 100, Neutrophils % (Manual) 70, Lymphocytes % ( Manual) 13L, Monocytes % (Manual) 8, Eosinophils % (Manual) 8H, Basophils % ( Manual) 1, Band Neutrophils 0, Platelet Estimate Adequate, Platelet Morphology Normal, Hypochromasia 1+ 01/03/20 10:17: Arterial Blood pH 7.405, Arterial Blood Partial Pressure CO2 36.9, Arterial Blood Partial Pressure O2 139.3H, Arterial Blood HCO3 22.6, Arterial Blood Oxygen Saturation 98.5, Arterial Blood Base Excess -1.9, Tacos Test Positive Height (Feet): 5 Height (Inches): 1.00 Weight (Pounds): 81 General Appearance: no apparent distress Cardiovascular: bradycardia Respiratory/Chest: decreased breath sounds Abdomen: soft Chivo Holloway MD Jan 03, 2020 14:18
[2020-01-03 16:00] VITALS: BP 103/62
[2020-01-03 20:00] VITALS: BP 123/71
--- NOTE | 2020-01-03 20:43 | Cardiology Progress Note ---
Assessment/Plan Assessment/Plan 1. Hypotension due to sepsis and shock as well as hypovolemia, continue hydration and midodrine. 2. Pre-renal azotemia. 3. Anemia. 4. Acute renal failure. 5. GI bleeding. Subjective Subjective Sinus bradycardia at rate of 52. Intubated on the vent with FiO2 of 30%. Objective Last 24 Hour Vital Signs Date Time Temp Pulse Resp B/P (MAP) Pulse Ox O2 Delivery O2 Flow Rate FiO2 01/03/20 20:00 58 01/03/20 18:55 50 20 100 Mechanical Ventilator 30 52 15 30 01/03/20 17:30 62 18 100 Mechanical Ventilator 30 62 15 30 01/03/20 16:00 97.2 46 18 103/62 (76) 98 01/03/20 16:00 Mechanical Ventilator 01/03/20 16:00 30 01/03/20 16:00 48 01/03/20 15:22 62 18 100 Mechanical Ventilator 30 62 15 30 01/03/20 12:47 48 16 100 Mechanical Ventilator 30 62 15 30 01/03/20 12:00 30 01/03/20 12:00 97.2 54 18 116/95 (102) 100 01/03/20 12:00 56 01/03/20 12:00 Mechanical Ventilator 01/03/20 10:30 53 14 100 Mechanical Ventilator 30 76 16 30 01/03/20 09:30 60 15 100 Mechanical Ventilator 30 76 16 30 01/03/20 08:00 Mechanical Ventilator 01/03/20 08:00 40 01/03/20 07:58 97.7 62 19 110/40 (63) 100 01/03/20 07:56 93 01/03/20 07:30 74 18 100 Mechanical Ventilator 30 76 16 30 01/03/20 05:03 63 20 30 01/03/20 04:00 40 01/03/20 04:00 97.9 59 19 125/75 (92) 100 01/03/20 04:00 Mechanical Ventilator 01/03/20 03:35 58 01/03/20 03:20 54 19 30 01/03/20 01:06 55 14 100 Mechanical Ventilator 30 52 14 30 01/03/20 00:00 40 01/03/20 00:00 Mechanical Ventilator 01/03/20 00:00 98.1 69 17 107/67 (80) 100 01/02/20 23:33 62 01/02/20 23:20 60 20 30 01/02/20 20:46 53 21 30 Intake and Output 01/02/20 01/03/20 19:00 07:00 Intake Total 1466.6667 ml 664.0 ml Output Total 850 ml 250 ml Balance 616.6667 ml 414.0 ml IV Total 1266.6667 ml 664.0 ml Other 200 ml Output Urine Total 450 ml 250 ml Stool Total 400 ml # Bowel Movements 2 4 Laboratory Tests Test 01/03/20 02:55 01/03/20 08:15 01/03/20 10:17 White Blood Count 16.8 K/UL (4.8-10.8) H 13.6 K/UL (4.8-10.8) H Red Blood Count 2.49 M/UL (4.20-5.40) L 2.61 M/UL (4.20-5.40) L Hemoglobin 7.7 G/DL (12.0-16.0) L 7.9 G/DL (12.0-16.0) L Hematocrit 23.3 % (37.0-47.0) L 24.2 % (37.0-47.0) L Mean Corpuscular Volume 93 FL (80-99) 93 FL (80-99) Mean Corpuscular Hemoglobin 30.7 PG (27.0-31.0) 30.4 PG (27.0-31.0) Mean Corpuscular Hemoglobin Concent 32.9 G/DL (32.0-36.0) 32.8 G/DL (32.0-36.0) Red Cell Distribution Width 14.1 % (11.6-14.8) 13.9 % (11.6-14.8) Platelet Count 61 K/UL (150-450) #L 204 K/UL (150-450) # Mean Platelet Volume 6.5 FL (6.5-10.1) 8.7 FL (6.5-10.1) Neutrophils (%) (Auto) % (45.0-75.0) % (45.0-75.0) Lymphocytes (%) (Auto) % (20.0-45.0) % (20.0-45.0) Monocytes (%) (Auto) % (1.0-10.0) % (1.0-10.0) Eosinophils (%) (Auto) % (0.0-3.0) % (0.0-3.0) Basophils (%) (Auto) % (0.0-2.0) % (0.0-2.0) Differential Total Cells Counted 100 100 Neutrophils % (Manual) 66 % (45-75) 70 % (45-75) Lymphocytes % (Manual) 10 % (20-45) L 13 % (20-45) L Monocytes % (Manual) 8 % (1-10) 8 % (1-10) Eosinophils % (Manual) 15 % (0-3) H 8 % (0-3) H Basophils % (Manual) 1 % (0-2) 1 % (0-2) Band Neutrophils 0 % (0-8) 0 % (0-8) Platelet Estimate Decreased L Adequate Platelet Morphology Normal Normal Hypochromasia 1+ 1+ Sodium Level 140 MMOL/L (136-145) Potassium Level 3.6 MMOL/L (3.5-5.1) Chloride Level 108 MMOL/L (98-107) H Carbon Dioxide Level 24 MMOL/L (21-32) Anion Gap 9 mmol/L (5-15) Blood Urea Nitrogen 12 mg/dL (7-18) Creatinine 0.5 MG/DL (0.55-1.30) L Estimat Glomerular Filtration Rate > 60 mL/min (>60) Glucose Level 72 MG/DL (74-106) L Calcium Level 8.8 MG/DL (8.5-10.1) Phosphorus Level 2.8 MG/DL (2.5-4.9) Magnesium Level 1.6 MG/DL (1.8-2.4) L Total Bilirubin 0.5 MG/DL (0.2-1.0) Aspartate Amino Transf (AST/SGOT) 86 U/L (15-37) H Alanine Aminotransferase (ALT/SGPT) 138 U/L (12-78) H Alkaline Phosphatase 138 U/L (46-116) H Total Protein 5.5 G/DL (6.4-8.2) L Albumin 2.4 G/DL (3.4-5.0) L Globulin 3.1 g/dL Albumin/Globulin Ratio 0.8 (1.0-2.7) L Arterial Blood pH 7.405 (7.350-7.450) Arterial Blood Partial Pressure CO2 36.9 mmHg (35.0-45.0) Arterial Blood Partial Pressure O2 139.3 mmHg (75.0-100.0) H Arterial Blood HCO3 22.6 mmol/L (22.0-26.0) Arterial Blood Oxygen Saturation 98.5 % (95-100) Arterial Blood Base Excess -1.9 (-2-2) Tacos Test Positive Microbiology Date/Time Source Procedure Growth Status 01/01/20 17:10 Sputum Induced Gram Stain - Final Resulted 01/01/20 17:10 Sputum Culture - Preliminary Gram Negative Bacillus 1 Resulted Objective HEENT: PERRLA, EOMI, Trach site with moderate secretions. NECK: Cannot assess JVP, no carotid bruit with normal upstroke. LUNGS: Bilateral rhonchi. CARDIAC: Regular rhythm and rate. Normal S1, S2 with no murmurs, gallops or rubs. ABDOMEN: Soft with G-tube. No hepatomegaly. EXTREMITIES: No edema, clubbing or cyanosis. Desmond Gleason MD Jan 03, 2020 20:43
--- NOTE | 2020-01-03 23:55 | Psych Consult Progress Note ---
Psychiatry Progress Note Psychiatry Progress Note Medications Current Medications Medications (Trade) Dose Ordered Sig/Villa Route PRN Reason Start Time Stop Time Status Last Admin Dose Admin Acetaminophen (Tylenol) 650 mg Q6H PRN GT Temp >100.5 01/01/20 11:00 01/31/20 10:59 Albuterol/ Ipratropium (Albuterol/ Ipratropium) 3 ml Q4HRT PRN HHN Shortness of Breath 01/01/20 10:00 01/06/20 09:59 Albuterol/ Ipratropium (Albuterol/ Ipratropium) 3 ml Q6HRT HHN 01/01/20 01:00 01/06/20 00:59 01/03/20 18:55 Ascorbic Acid (Vitamin C) 500 mg DAILY ORAL 01/01/20 09:00 01/31/20 08:59 01/03/20 08:23 Ceftriaxone Sodium 1 gm/ Dextrose 55 ml @ 110 mls/hr Q24H IVPB 01/03/20 09:00 01/10/20 08:59 01/03/20 08:22 Clonazepam (KlonoPIN) 1 mg Q6H ORAL 12/31/19 21:00 01/07/20 20:59 01/03/20 20:32 Dextrose 1,000 ml @ 50 mls/hr Q20H IV 01/01/20 11:00 01/31/20 10:59 01/03/20 03:51 Docusate Sodium (Colace) 100 mg DAILY ORAL 01/01/20 09:00 01/31/20 08:59 01/03/20 08:24 Gabapentin (Neurontin) 300 mg EVERY 8 HOURS ORAL 12/31/19 22:00 01/30/20 21:59 01/03/20 20:31 Haloperidol Lactate (Haldol) 5 mg Q6H PRN IM Agitation 01/01/20 23:30 02/15/20 23:29 Levetiracetam (Keppra) 1,000 mg DAILY ORAL 01/01/20 09:00 01/31/20 08:59 01/03/20 08:24 Levothyroxine Sodium (Synthroid) 75 mcg DAILY ORAL 01/01/20 09:00 01/31/20 08:59 01/03/20 08:25 Loperamide HCl (Imodium) 2 mg Q12HR PRN ORAL Diarrhea 12/31/19 21:15 01/30/20 21:14 Magnesium Hydroxide (Mom) 30 ml DAILY ORAL 01/01/20 09:00 01/31/20 08:59 01/03/20 08:25 Midodrine (Pro-Amatine) 10 mg THREE TIMES A DAY ORAL 01/02/20 13:27 04/01/20 13:26 01/03/20 17:29 Multivitamins Therapeutic (Therapeutic Multivitamin) 1 ea DAILY ORAL 01/01/20 09:00 01/31/20 08:59 01/03/20 08:22 Ondansetron HCl (Zofran) 4 mg Q6H PRN ORAL Nausea & Vomiting 12/31/19 21:00 01/30/20 20:59 Pantoprazole (Protonix) 40 mg EVERY 12 HOURS IVP 01/01/20 09:00 01/31/20 08:59 01/03/20 20:31 Rifaximin (Xifaxan) 550 mg TWICE A DAY ORAL 01/01/20 09:00 01/08/20 08:59 01/03/20 17:29 Thiamine HCl (Vitamin B1) 100 mg DAILY ORAL 01/01/20 09:00 01/31/20 08:59 01/03/20 08:23 Tramadol HCl (Ultram) 50 mg Q6H PRN ORAL For Pain (4-10) 12/31/19 21:15 01/07/20 20:59 Neurological/Psychiatric: Reports: anxiety, depressed Allergies: Coded Allergies: CARBAMAZEPINE (Verified Allergy, Unknown, 12/31/19) LORAZEPAM (Verified Allergy, Unknown, 12/31/19) Objective Data Height (Feet): 5 Height (Inches): 1.00 Weight (Pounds): 81 General Appearance: no apparent distress, confused Additional Comments: waxing and waning consciousness. Affect is flat. Thought process, there is a paucity of thought content. Thought content, no suicidal or homicidal ideation. Cognition is impaired. Insight and judgment is impaired. Assessment/Plan Elon I: ASSESSMENT: Elon I Chronic encephalopathy. Agitation. Elon II Deferred. Elon III As above. Elon IV Low. Elon V 20. PLAN: 1. Haldol IM as needed. 2. Discussed with the nurse. Status Narrative ASSESSMENT: Elon I Chronic encephalopathy. Agitation. Elon II Deferred. Elon III As above. Elon IV Low. Elon V 20. PLAN: 1. Haldol IM as needed. 2. Discussed with the nurse. Assessment/Plan: ASSESSMENT: Elon I Chronic encephalopathy. Agitation. Elon II Deferred. Elon III As above. Elon IV Low. Elon V 20. PLAN: 1. Haldol IM as needed. 2. Discussed with the nurse. Rhonda Maxwell MD Jan 03, 2020 23:55
[2020-01-04] VITALS: BP 100/65
[2020-01-04] MEDS: Albuterol/Ipratropium 3ml neb HHN SCH ×4 (01:21→19:00)
[2020-01-04 04:00] VITALS: BP 141/75
[2020-01-04 05:25] LABS: BASOPHILS % (AUTO) 0.6 % (0.0-2.0); EOSINOPHILS % (AUTO) 9.2 % (0.0-3.0); HEMATOCRIT 24.4 % (37.0-47.0); HEMOGLOBIN 8.1 G/DL (12.0-16.0); LYMPHOCYTES % (AUTO) 14.9 % (20.0-45.0); MEAN CORPUSCULAR VOLUME 93 FL (80-99); NEUTROPHILS % (AUTO) 67.2 % (45.0-75.0); PLATELET COUNT 227 K/UL (150-450); RED BLOOD COUNT 2.63 M/UL (4.20-5.40); WHITE BLOOD COUNT 14.2 K/UL (4.8-10.8)
[2020-01-04 05:28] LABS: ALANINE AMINOTRANSFERASE 109 U/L (12-78); ALBUMIN 2.4 G/DL (3.4-5.0); ALBUMIN/GLOBULIN RATIO 0.7 (1.0-2.7); ALKALINE PHOSPHATASE 159 U/L (46-116); ANION GAP 4 mmol/L (5-15); ASPARTATE AMINO TRANSFERASE 49 U/L (15-37); BILIRUBIN,TOTAL 0.2 MG/DL (0.2-1.0); BLOOD UREA NITROGEN 5 mg/dL (7-18); CALCIUM 8.2 MG/DL (8.5-10.1); CARBON DIOXIDE 28 MMOL/L (21-32); CHLORIDE 108 MMOL/L (98-107); CREATININE 0.5 MG/DL (0.55-1.30); POTASSIUM 3.7 MMOL/L (3.5-5.1); SODIUM 140 MMOL/L (136-145)
--- NOTE | 2020-01-04 06:50 | Infectious Diseases Prog Note ---
Assessment/Plan 39yo F with: Fever to 101.5 Possible pna on CXR Leukocytosis to 24, improving Recurrent GIB 12/30 BCx 1/2 +CONS 12/30 UA neg, COVID rapid Ag neg 12/30 CXR 1. Density overlying the bilateral lung apices. May represent pleural thickening, multifocal airspace opacities, versus summation artifact. 01/01 BCx NTD 01/02 BCx NTD Possible Scabies SP tx w/ Permethrin and Ivermectin 12/31 R/o DVT: None on US 12/30 MRSA nares neg Recurrent GIBs, FOBT+ Hepatic encephalopathy, chronic S/p Trach/PEG Resides at SNF Plan: Cont CTX 1g IV daily #2 for SBP ppx in the setting of GIB 01/02 SP vanco #2, Zosyn #2 For possible Scabies, can repeat ivermectin at day 7 (01/07) to ensure complete tx F/u BCx Trend WBC Monitor CBC/CMP Monitor resp status Monitor temp and hemodynamics Thank you for this consult. [facility] will continue to follow. Subjective Allergies: Coded Allergies: CARBAMAZEPINE (Verified Allergy, Unknown, 12/31/19) LORAZEPAM (Verified Allergy, Unknown, 12/31/19) AF WBC 14, stable NAD on vent Objective Last 24 Hour Vital Signs Date Time Temp Pulse Resp B/P (MAP) Pulse Ox O2 Delivery O2 Flow Rate FiO2 01/04/20 05:00 71 24 30 01/04/20 04:00 68 01/04/20 04:00 30 01/04/20 04:00 98.0 74 22 141/75 (97) 100 01/04/20 04:00 Mechanical Ventilator 01/04/20 03:00 70 27 30 01/04/20 01:21 62 21 97 Mechanical Ventilator 30 57 15 30 01/04/20 00:00 56 01/04/20 00:00 Mechanical Ventilator 01/04/20 00:00 98.0 65 16 100/65 (77) 96 01/04/20 00:00 30 01/03/20 23:22 60 20 30 01/03/20 20:52 48 20 30 01/03/20 20:00 97.9 55 20 123/71 (88) 100 01/03/20 20:00 58 01/03/20 20:00 Mechanical Ventilator 01/03/20 20:00 30 01/03/20 18:55 50 20 100 Mechanical Ventilator 30 52 15 30 01/03/20 17:30 62 18 100 Mechanical Ventilator 30 62 15 30 01/03/20 16:00 97.2 46 18 103/62 (76) 98 01/03/20 16:00 Mechanical Ventilator 01/03/20 16:00 30 01/03/20 16:00 48 01/03/20 15:22 62 18 100 Mechanical Ventilator 30 62 15 30 01/03/20 12:47 48 16 100 Mechanical Ventilator 30 62 15 30 01/03/20 12:00 30 01/03/20 12:00 97.2 54 18 116/95 (102) 100 01/03/20 12:00 56 01/03/20 12:00 Mechanical Ventilator 01/03/20 10:30 53 14 100 Mechanical Ventilator 30 76 16 30 01/03/20 09:30 60 15 100 Mechanical Ventilator 30 76 16 30 01/03/20 08:00 Mechanical Ventilator 01/03/20 08:00 40 01/03/20 07:58 97.7 62 19 110/40 (63) 100 01/03/20 07:56 93 01/03/20 07:30 74 18 100 Mechanical Ventilator 30 76 16 30 Height (Feet): 5 Height (Inches): 1.00 Weight (Pounds): 85 Gen: Young woman, chronically ill appearing HEENT: Trach CV: RRR Pulm: CTAB anteriorly on vent Abd: Thin, soft, NTND +PEG Ext: Thin, no c/c/e Microbiology Date/Time Source Procedure Growth Status 01/03/20 02:55 Blood Blood Culture - Preliminary NO GROWTH AFTER 24 HOURS Resulted 01/02/20 15:50 Blood Blood Culture - Preliminary NO GROWTH AFTER 24 HOURS Resulted 01/01/20 17:10 Sputum Induced Gram Stain - Final Resulted 01/01/20 17:10 Sputum Culture - Preliminary Gram Negative Bacillus 1 Resulted Laboratory Tests Test 01/03/20 08:15 01/03/20 10:17 01/04/20 03:30 White Blood Count 13.6 K/UL (4.8-10.8) H 14.2 K/UL (4.8-10.8) H Red Blood Count 2.61 M/UL (4.20-5.40) L 2.63 M/UL (4.20-5.40) L Hemoglobin 7.9 G/DL (12.0-16.0) L 8.1 G/DL (12.0-16.0) L Hematocrit 24.2 % (37.0-47.0) L 24.4 % (37.0-47.0) L Mean Corpuscular Volume 93 FL (80-99) 93 FL (80-99) Mean Corpuscular Hemoglobin 30.4 PG (27.0-31.0) 30.8 PG (27.0-31.0) Mean Corpuscular Hemoglobin Concent 32.8 G/DL (32.0-36.0) 33.1 G/DL (32.0-36.0) Red Cell Distribution Width 13.9 % (11.6-14.8) 14.0 % (11.6-14.8) Platelet Count 204 K/UL (150-450) # 227 K/UL (150-450) Mean Platelet Volume 8.7 FL (6.5-10.1) 8.0 FL (6.5-10.1) Neutrophils (%) (Auto) % (45.0-75.0) 67.2 % (45.0-75.0) Lymphocytes (%) (Auto) % (20.0-45.0) 14.9 % (20.0-45.0) L Monocytes (%) (Auto) % (1.0-10.0) 8.0 % (1.0-10.0) Eosinophils (%) (Auto) % (0.0-3.0) 9.2 % (0.0-3.0) H Basophils (%) (Auto) % (0.0-2.0) 0.6 % (0.0-2.0) Differential Total Cells Counted 100 Neutrophils % (Manual) 70 % (45-75) Lymphocytes % (Manual) 13 % (20-45) L Monocytes % (Manual) 8 % (1-10) Eosinophils % (Manual) 8 % (0-3) H Basophils % (Manual) 1 % (0-2) Band Neutrophils 0 % (0-8) Platelet Estimate Adequate Platelet Morphology Normal Hypochromasia 1+ Arterial Blood pH 7.405 (7.350-7.450) Arterial Blood Partial Pressure CO2 36.9 mmHg (35.0-45.0) Arterial Blood Partial Pressure O2 139.3 mmHg (75.0-100.0) H Arterial Blood HCO3 22.6 mmol/L (22.0-26.0) Arterial Blood Oxygen Saturation 98.5 % (95-100) Arterial Blood Base Excess -1.9 (-2-2) Tacos Test Positive Sodium Level 140 MMOL/L (136-145) Potassium Level 3.7 MMOL/L (3.5-5.1) Chloride Level 108 MMOL/L (98-107) H Carbon Dioxide Level 28 MMOL/L (21-32) Anion Gap 4 mmol/L (5-15) L Blood Urea Nitrogen 5 mg/dL (7-18) L Creatinine 0.5 MG/DL (0.55-1.30) L Estimat Glomerular Filtration Rate > 60 mL/min (>60) Glucose Level 92 MG/DL (74-106) Calcium Level 8.2 MG/DL (8.5-10.1) L Total Bilirubin 0.2 MG/DL (0.2-1.0) Aspartate Amino Transf (AST/SGOT) 49 U/L (15-37) H Alanine Aminotransferase (ALT/SGPT) 109 U/L (12-78) H Alkaline Phosphatase 159 U/L (46-116) H Total Protein 5.8 G/DL (6.4-8.2) L Albumin 2.4 G/DL (3.4-5.0) L Globulin 3.4 g/dL Albumin/Globulin Ratio 0.7 (1.0-2.7) L Hepatitis A IgM Antibody Pending Hepatitis B Surface Antigen Pending Hepatitis B Core IgM Antibody Pending Hepatitis C Antibody Pending Current Medications Medications (Trade) Dose Ordered Sig/Villa Route PRN Reason Start Time Stop Time Status Last Admin Dose Admin Acetaminophen (Tylenol) 650 mg Q6H PRN GT Temp >100.5 01/01/20 11:00 01/31/20 10:59 Albuterol/ Ipratropium (Albuterol/ Ipratropium) 3 ml Q4HRT PRN HHN Shortness of Breath 01/01/20 10:00 01/06/20 09:59 Albuterol/ Ipratropium (Albuterol/ Ipratropium) 3 ml Q6HRT HHN 01/01/20 01:00 01/06/20 00:59 01/04/20 01:21 Ascorbic Acid (Vitamin C) 500 mg DAILY ORAL 01/01/20 09:00 01/31/20 08:59 01/03/20 08:23 Ceftriaxone Sodium 1 gm/ Dextrose 55 ml @ 110 mls/hr Q24H IVPB 01/03/20 09:00 01/10/20 08:59 01/03/20 08:22 Clonazepam (KlonoPIN) 1 mg Q6H ORAL 12/31/19 21:00 01/07/20 20:59 01/04/20 03:50 Dextrose 1,000 ml @ 50 mls/hr Q20H IV 01/01/20 11:00 01/31/20 10:59 01/04/20 02:34 Docusate Sodium (Colace) 100 mg DAILY ORAL 01/01/20 09:00 01/31/20 08:59 01/03/20 08:24 Gabapentin (Neurontin) 300 mg EVERY 8 HOURS ORAL 12/31/19 22:00 01/30/20 21:59 01/04/20 05:17 Haloperidol Lactate (Haldol) 5 mg Q6H PRN IM Agitation 01/01/20 23:30 02/15/20 23:29 Levetiracetam (Keppra) 1,000 mg DAILY ORAL 01/01/20 09:00 01/31/20 08:59 01/03/20 08:24 Levothyroxine Sodium (Synthroid) 75 mcg DAILY ORAL 01/01/20 09:00 01/31/20 08:59 01/03/20 08:25 Loperamide HCl (Imodium) 2 mg Q12HR PRN ORAL Diarrhea 12/31/19 21:15 01/30/20 21:14 Magnesium Hydroxide (Mom) 30 ml DAILY ORAL 01/01/20 09:00 01/31/20 08:59 01/03/20 08:25 Midodrine (Pro-Amatine) 10 mg THREE TIMES A DAY ORAL 01/02/20 13:27 04/01/20 13:26 01/03/20 17:29 Multivitamins Therapeutic (Therapeutic Multivitamin) 1 ea DAILY ORAL 01/01/20 09:00 01/31/20 08:59 01/03/20 08:22 Ondansetron HCl (Zofran) 4 mg Q6H PRN ORAL Nausea & Vomiting 12/31/19 21:00 01/30/20 20:59 Pantoprazole (Protonix) 40 mg EVERY 12 HOURS IVP 01/01/20 09:00 01/31/20 08:59 01/03/20 20:31 Rifaximin (Xifaxan) 550 mg TWICE A DAY ORAL 01/01/20 09:00 01/08/20 08:59 01/03/20 17:29 Thiamine HCl (Vitamin B1) 100 mg DAILY ORAL 01/01/20 09:00 01/31/20 08:59 01/03/20 08:23 Tramadol HCl (Ultram) 50 mg Q6H PRN ORAL For Pain (4-10) 12/31/19 21:15 01/07/20 20:59 Missy Rouse M.D. Jan 04, 2020 06:50
--- NOTE | 2020-01-04 06:59 | Hematology/Onc Progress Note ---
Assessment/Plan Assessment/Plan # Thrombocytopenia med related v labs error --> plt trend 167-->61-->227 --> meds have been reviewed --> no hep or lovenox (if less than 50k plt) # Anemia rule out underlying gi bleed --> Dr. Carrillo has been consulted-->endosco gastric ulceration --> trend hgb 7-->7.4-->7.9-->8 --> anemia panel ordered --> prn transfusion --> protonix started # Leukocytosis is likely related to pna on imaging --> abx has been started --> if wbc worsens, consider abx vanc/zosyn--> ceftriaxone --> smear is noted --> wbc 25-->15-->14 # Sepsis --> on abx for pna # Pneumonia --> pulm, Dr. 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 product development consultant care, will follow Subjective HEENT: Denies: no symptoms, eye pain, blurred vision, tearing, double vision, ear pain, ear discharge, nose pain, nose congestion, throat pain, throat swelling, mouth pain, mouth swelling, other Cardiovascular: Denies: no symptoms, chest pain, edema, irregular heart rate, lightheadedness, palpitations, syncope, other Respiratory: Denies: no symptoms, cough, shortness of breath, SOB with excertion, SOB at rest, sputum, wheezing, other Gastrointestinal/Abdominal: Denies: no symptoms, abdomen distended, abdominal pain, black stools, tarry stools, blood in stool, constipated, diarrhea, difficulty swallowing, nausea, poor appetite, poor fluid intake, rectal bleeding , vomiting, other Genitourinary: Denies: no symptoms, burning, discharge, frequency, flank pain, hematuria, incontinence, pain, urgency, other Neurologic/Psychiatric: Denies: no symptoms, anxiety, depressed, emotional problems, headache, numbness, paresthesia, pre-existing deficit, seizure, tingling, tremors, weakness, other Endocrine: Denies: no symptoms, excessive sweating, flushing, intolerance to cold, intolerance to heat, increased hunger, increased thirst, increased urine, unexplained weight gain, unexplained weight loss, other Allergies: Coded Allergies: CARBAMAZEPINE (Verified Allergy, Unknown, 12/31/19) LORAZEPAM (Verified Allergy, Unknown, 12/31/19) Subjective 01/01 altered, trach, no bleedin wbc improved on abx, seen by gi 01/02 egd study noted, also with plts 61k, have vitaly Armendariz Rn, will recheck cbc 01/03 remains agitated, vitaly rn, no bleeding, cbc noted as well as id recs Objective Objective Current Medications Medications (Trade) Dose Ordered Sig/Villa Route PRN Reason Start Time Stop Time Status Last Admin Dose Admin Acetaminophen (Tylenol) 650 mg Q6H PRN GT Temp >100.5 01/01/20 11:00 01/31/20 10:59 Albuterol/ Ipratropium (Albuterol/ Ipratropium) 3 ml Q4HRT PRN HHN Shortness of Breath 01/01/20 10:00 01/06/20 09:59 Albuterol/ Ipratropium (Albuterol/ Ipratropium) 3 ml Q6HRT HHN 01/01/20 01:00 01/06/20 00:59 01/04/20 01:21 Ascorbic Acid (Vitamin C) 500 mg DAILY ORAL 01/01/20 09:00 01/31/20 08:59 01/03/20 08:23 Ceftriaxone Sodium 1 gm/ Dextrose 55 ml @ 110 mls/hr Q24H IVPB 01/03/20 09:00 01/10/20 08:59 01/03/20 08:22 Clonazepam (KlonoPIN) 1 mg Q6H ORAL 12/31/19 21:00 01/07/20 20:59 01/04/20 03:50 Dextrose 1,000 ml @ 50 mls/hr Q20H IV 01/01/20 11:00 01/31/20 10:59 01/04/20 02:34 Docusate Sodium (Colace) 100 mg DAILY ORAL 01/01/20 09:00 01/31/20 08:59 01/03/20 08:24 Gabapentin (Neurontin) 300 mg EVERY 8 HOURS ORAL 12/31/19 22:00 01/30/20 21:59 01/04/20 05:17 Haloperidol Lactate (Haldol) 5 mg Q6H PRN IM Agitation 01/01/20 23:30 02/15/20 23:29 Levetiracetam (Keppra) 1,000 mg DAILY ORAL 01/01/20 09:00 01/31/20 08:59 01/03/20 08:24 Levothyroxine Sodium (Synthroid) 75 mcg DAILY ORAL 01/01/20 09:00 01/31/20 08:59 01/03/20 08:25 Loperamide HCl (Imodium) 2 mg Q12HR PRN ORAL Diarrhea 12/31/19 21:15 01/30/20 21:14 Magnesium Hydroxide (Mom) 30 ml DAILY ORAL 01/01/20 09:00 01/31/20 08:59 01/03/20 08:25 Midodrine (Pro-Amatine) 10 mg THREE TIMES A DAY ORAL 01/02/20 13:27 04/01/20 13:26 01/03/20 17:29 Multivitamins Therapeutic (Therapeutic Multivitamin) 1 ea DAILY ORAL 01/01/20 09:00 01/31/20 08:59 01/03/20 08:22 Ondansetron HCl (Zofran) 4 mg Q6H PRN ORAL Nausea & Vomiting 12/31/19 21:00 01/30/20 20:59 Pantoprazole (Protonix) 40 mg EVERY 12 HOURS IVP 01/01/20 09:00 01/31/20 08:59 01/03/20 20:31 Rifaximin (Xifaxan) 550 mg TWICE A DAY ORAL 01/01/20 09:00 01/08/20 08:59 01/03/20 17:29 Thiamine HCl (Vitamin B1) 100 mg DAILY ORAL 01/01/20 09:00 01/31/20 08:59 01/03/20 08:23 Tramadol HCl (Ultram) 50 mg Q6H PRN ORAL For Pain (4-10) 12/31/19 21:15 01/07/20 20:59 Last 24 Hour Vital Signs Date Time Temp Pulse Resp B/P (MAP) Pulse Ox O2 Delivery O2 Flow Rate FiO2 01/04/20 05:00 71 24 30 01/04/20 04:00 68 01/04/20 04:00 30 01/04/20 04:00 98.0 74 22 141/75 (97) 100 01/04/20 04:00 Mechanical Ventilator 01/04/20 03:00 70 27 30 01/04/20 01:21 62 21 97 Mechanical Ventilator 30 57 15 30 01/04/20 00:00 56 01/04/20 00:00 Mechanical Ventilator 01/04/20 00:00 98.0 65 16 100/65 (77) 96 01/04/20 00:00 30 01/03/20 23:22 60 20 30 01/03/20 20:52 48 20 30 01/03/20 20:00 97.9 55 20 123/71 (88) 100 01/03/20 20:00 58 01/03/20 20:00 Mechanical Ventilator 01/03/20 20:00 30 01/03/20 18:55 50 20 100 Mechanical Ventilator 30 52 15 30 01/03/20 17:30 62 18 100 Mechanical Ventilator 30 62 15 30 01/03/20 16:00 97.2 46 18 103/62 (76) 98 01/03/20 16:00 Mechanical Ventilator 01/03/20 16:00 30 01/03/20 16:00 48 01/03/20 15:22 62 18 100 Mechanical Ventilator 30 62 15 30 01/03/20 12:47 48 16 100 Mechanical Ventilator 30 62 15 30 01/03/20 12:00 30 01/03/20 12:00 97.2 54 18 116/95 (102) 100 01/03/20 12:00 56 01/03/20 12:00 Mechanical Ventilator 01/03/20 10:30 53 14 100 Mechanical Ventilator 30 76 16 30 01/03/20 09:30 60 15 100 Mechanical Ventilator 30 76 16 30 01/03/20 08:00 Mechanical Ventilator 01/03/20 08:00 40 01/03/20 07:58 97.7 62 19 110/40 (63) 100 01/03/20 07:56 93 01/03/20 07:30 74 18 100 Mechanical Ventilator 30 76 16 30 01/03/20 05:03 63 20 30 01/03/20 04:00 40 01/03/20 04:00 97.9 59 19 125/75 (92) 100 01/03/20 04:00 Mechanical Ventilator 01/03/20 03:35 58 01/03/20 03:20 54 19 30 01/03/20 01:06 55 14 100 Mechanical Ventilator 30 52 14 30 01/03/20 00:00 40 01/03/20 00:00 Mechanical Ventilator 01/03/20 00:00 98.1 69 17 107/67 (80) 100 01/02/20 23:33 62 01/02/20 23:20 60 20 30 01/02/20 20:46 53 21 30 01/02/20 20:00 97.5 60 18 108/48 (68) 100 01/02/20 20:00 Mechanical Ventilator 01/02/20 20:00 40 01/02/20 19:24 46 01/02/20 19:01 47 19 100 Mechanical Ventilator 30 46 13 30 01/02/20 18:00 53 18 112/51 (71) 99 01/02/20 17:17 51 17 30 01/02/20 16:00 56 01/02/20 16:00 Mechanical Ventilator 01/02/20 16:00 98.1 64 18 92/63 (73) 99 01/02/20 16:00 40 01/02/20 15:50 53 19 30 01/02/20 15:27 56 18 100 01/02/20 15:26 54 18 100 01/02/20 14:34 55 18 102/55 (71) 99 01/02/20 14:20 50 12 100 Mechanical Ventilator 30 52 12 30 01/02/20 13:38 80 18 95/53 (67) 99 01/02/20 13:37 89 18 97/55 (69) 99 01/02/20 12:48 75 18 113/52 (72) 99 01/02/20 12:47 70 18 104/48 (66) 99 01/02/20 12:33 85 18 92/64 (73) 99 01/02/20 12:00 61 01/02/20 12:00 40 01/02/20 12:00 Mechanical Ventilator 01/02/20 11:01 64 18 88/64 (72) 99 01/02/20 10:53 56 22 30 01/02/20 10:10 97.7 64 18 92/63 (73) 99 01/02/20 09:20 65 21 30 01/02/20 08:00 40 01/02/20 08:00 66 8/18/20 08:00 Mechanical Ventilator 01/02/20 07:13 61 18 100 Mechanical Ventilator 30 62 19 30 Intake and Output 01/03/20 01/04/20 19:00 07:00 Intake Total 900 ml 700 ml Output Total 1100 ml 700 ml Balance -200 ml 0 ml IV Total 550 ml 150 ml Tube Feeding 350 ml 550 ml Output Urine Total 1100 ml 700 ml # Bowel Movements 3 Labs Test 01/02/20 03:10 01/02/20 09:15 01/02/20 16:30 01/03/20 02:55 White Blood Count 15.4 K/UL (4.8-10.8) 16.1 K/UL (4.8-10.8) 16.2 K/UL (4.8-10.8) 16.8 K/UL (4.8-10.8) Red Blood Count 2.59 M/UL (4.20-5.40) 2.64 M/UL (4.20-5.40) 2.49 M/UL (4.20-5.40) 2.49 M/UL (4.20-5.40) Hemoglobin 7.9 G/DL (12.0-16.0) 7.9 G/DL (12.0-16.0) 7.7 G/DL (12.0-16.0) 7.7 G/DL (12.0-16.0) Hematocrit 23.8 % (37.0-47.0) 24.6 % (37.0-47.0) 23.3 % (37.0-47.0) 23.3 % (37.0-47.0) Mean Corpuscular Volume 92 FL (80-99) 93 FL (80-99) 94 FL (80-99) 93 FL (80- 99) Mean Corpuscular Hemoglobin 30.6 PG (27.0-31.0) 30.0 PG (27.0-31.0) 30.8 PG (27.0-31.0) 30.7 PG (27.0-31.0) Mean Corpuscular Hemoglobin Concent 33.2 G/DL (32.0-36.0) 32.3 G/DL (32.0-36.0) 32.9 G/DL (32.0-36.0) 32.9 G/DL (32.0-36.0) Red Cell Distribution Width 14.5 % (11.6-14.8) 14.5 % (11.6-14.8) 15.2 % (11.6-14.8) 14.1 % (11.6-14.8) Platelet Count 159 K/UL (150-450) 164 K/UL (150-450) 167 K/UL (150-450) 61 K/UL (150-450) Mean Platelet Volume 7.9 FL (6.5-10.1) 8.2 FL (6.5-10.1) 8.6 FL (6.5-10.1) 6.5 FL (6.5-10.1) Neutrophils (%) (Auto) % (45.0-75.0) % (45.0-75.0) 67.8 % (45.0-75.0) % (45.0-75.0) Lymphocytes (%) (Auto) % (20.0-45.0) % (20.0-45.0) 17.4 % (20.0-45.0) % (20.0-45.0) Monocytes (%) (Auto) % (1.0-10.0) % (1.0-10.0) 8.4 % (1.0-10.0) % (1.0-10.0) Eosinophils (%) (Auto) % (0.0-3.0) % (0.0-3.0) 5.9 % (0.0-3.0) % (0.0-3.0) Basophils (%) (Auto) % (0.0-2.0) % (0.0-2.0) 0.7 % (0.0-2.0) % (0.0-2.0) Differential Total Cells Counted 100 100 100 Neutrophils % (Manual) 68 % (45-75) 73 % (45-75) 66 % (45-75) Lymphocytes % (Manual) 18 % (20-45) 14 % (20-45) 10 % (20-45) Monocytes % (Manual) 9 % (1-10) 6 % (1-10) 8 % (1-10) Eosinophils % (Manual) 5 % (0-3) 7 % (0-3) 15 % (0-3) Basophils % (Manual) 0 % (0-2) 0 % (0-2) 1 % (0-2) Band Neutrophils 0 % (0-8) 0 % (0-8) 0 % (0-8) Platelet Estimate Adequate Adequate Decreased Platelet Morphology Normal Normal Normal Polychromasia 1+ 1+ Hypochromasia 1+ 1+ 1+ Anisocytosis 1+ 1+ Sodium Level 144 MMOL/L (136-145) 140 MMOL/L (136-145) Potassium Level 3.0 MMOL/L (3.5-5.1) 3.6 MMOL/L (3.5-5.1) Chloride Level 108 MMOL/L (98-107) 108 MMOL/L (98-107) Carbon Dioxide Level 30 MMOL/L (21-32) 24 MMOL/L (21-32) Anion Gap 6 mmol/L (5-15) 9 mmol/L (5-15) Blood Urea Nitrogen 22 mg/dL (7-18) 12 mg/dL (7-18) Creatinine 0.5 MG/DL (0.55-1.30) 0.5 MG/DL (0.55-1.30) Estimat Glomerular Filtration Rate > 60 mL/min (>60) > 60 mL/min (>60) Glucose Level 89 MG/DL (74-106) 72 MG/DL (74-106) Hemoglobin A1c 4.8 % (4.3-6.0) Uric Acid 3.3 MG/DL (2.6-7.2) Calcium Level 8.8 MG/DL (8.5-10.1) 8.8 MG/DL (8.5-10.1) Phosphorus Level 2.2 MG/DL (2.5-4.9) 2.8 MG/DL (2.5-4.9) Magnesium Level 1.8 MG/DL (1.8-2.4) 1.6 MG/DL (1.8-2.4) Total Bilirubin 0.4 MG/DL (0.2-1.0) 0.5 MG/DL (0.2-1.0) Gamma Glutamyl Transpeptidase 131 U/L (5-85) Aspartate Amino Transf (AST/SGOT) 83 U/L (15-37) 86 U/L (15-37) Alanine Aminotransferase (ALT/SGPT) 129 U/L (12-78) 138 U/L (12-78) Alkaline Phosphatase 111 U/L (46-116) 138 U/L (46-116) C-Reactive Protein, Quantitative < 0.4 mg/dL (0.00-0.90) Pro-B-Type Natriuretic Peptide 441 pg/mL (0-125) Total Protein 5.8 G/DL (6.4-8.2) 5.5 G/DL (6.4-8.2) Albumin 2.2 G/DL (3.4-5.0) 2.4 G/DL (3.4-5.0) Globulin 3.6 g/dL 3.1 g/dL Albumin/Globulin Ratio 0.6 (1.0-2.7) 0.8 (1.0-2.7) Triglycerides Level 71 MG/DL (30-150) Cholesterol Level < 50 MG/DL (< 200) LDL Cholesterol 17 mg/dL (<100) HDL Cholesterol 23 MG/DL (40-60) Cholesterol/HDL Ratio 2.2 (3.3-4.4) Vitamin B12 Level 1155 PG/ML (193-986) Folate 75.0 NG/ML (8.6-58.9) Thyroid Stimulating Hormone (TSH) 3.525 uiU/mL (0.358-3.740) Test 01/03/20 08:15 01/03/20 10:17 01/04/20 03:30 White Blood Count 13.6 K/UL (4.8-10.8) 14.2 K/UL (4.8-10.8) Red Blood Count 2.61 M/UL (4.20-5.40) 2.63 M/UL (4.20-5.40) Hemoglobin 7.9 G/DL (12.0-16.0) 8.1 G/DL (12.0-16.0) Hematocrit 24.2 % (37.0-47.0) 24.4 % (37.0-47.0) Mean Corpuscular Volume 93 FL (80-99) 93 FL (80-99) Mean Corpuscular Hemoglobin 30.4 PG (27.0-31.0) 30.8 PG (27.0-31.0) Mean Corpuscular Hemoglobin Concent 32.8 G/DL (32.0-36.0) 33.1 G/DL (32.0-36.0) Red Cell Distribution Width 13.9 % (11.6-14.8) 14.0 % (11.6-14.8) Platelet Count 204 K/UL (150-450) 227 K/UL (150-450) Mean Platelet Volume 8.7 FL (6.5-10.1) 8.0 FL (6.5-10.1) Neutrophils (%) (Auto) % (45.0-75.0) 67.2 % (45.0-75.0) Lymphocytes (%) (Auto) % (20.0-45.0) 14.9 % (20.0-45.0) Monocytes (%) (Auto) % (1.0-10.0) 8.0 % (1.0-10.0) Eosinophils (%) (Auto) % (0.0-3.0) 9.2 % (0.0-3.0) Basophils (%) (Auto) % (0.0-2.0) 0.6 % (0.0-2.0) Differential Total Cells Counted 100 Neutrophils % (Manual) 70 % (45-75) Lymphocytes % (Manual) 13 % (20-45) Monocytes % (Manual) 8 % (1-10) Eosinophils % (Manual) 8 % (0-3) Basophils % (Manual) 1 % (0-2) Band Neutrophils 0 % (0-8) Platelet Estimate Adequate Platelet Morphology Normal Hypochromasia 1+ Arterial Blood pH 7.405 (7.350-7.450) Arterial Blood Partial Pressure CO2 36.9 mmHg (35.0-45.0) Arterial Blood Partial Pressure O2 139.3 mmHg (75.0-100.0) Arterial Blood HCO3 22.6 mmol/L (22.0-26.0) Arterial Blood Oxygen Saturation 98.5 % (95-100) Arterial Blood Base Excess -1.9 (-2-2) Tacos Test Positive Sodium Level 140 MMOL/L (136-145) Potassium Level 3.7 MMOL/L (3.5-5.1) Chloride Level 108 MMOL/L (98-107) Carbon Dioxide Level 28 MMOL/L (21-32) Anion Gap 4 mmol/L (5-15) Blood Urea Nitrogen 5 mg/dL (7-18) Creatinine 0.5 MG/DL (0.55-1.30) Estimat Glomerular Filtration Rate > 60 mL/min (>60) Glucose Level 92 MG/DL (74-106) Calcium Level 8.2 MG/DL (8.5-10.1) Total Bilirubin 0.2 MG/DL (0.2-1.0) Aspartate Amino Transf (AST/SGOT) 49 U/L (15-37) Alanine Aminotransferase (ALT/SGPT) 109 U/L (12-78) Alkaline Phosphatase 159 U/L (46-116) Total Protein 5.8 G/DL (6.4-8.2) Albumin 2.4 G/DL (3.4-5.0) Globulin 3.4 g/dL Albumin/Globulin Ratio 0.7 (1.0-2.7) Height (Feet): 5 Height (Inches): 1.00 Weight (Pounds): 85 Objective Vital Signs General Appearance: ++ cachectic, chronically ill HEENT: normocephalic, atraumatic ++ trach Resp: other -. vent Cardiovascular: regular rate, rhythm, no edema Gastrointestinal: gtube in place, without erythema Rectal: other - Hemoccult positive [place]: back normal, gait/station normal, non-tender Lymphatic: no adenopathy Baltazar Cortes MD Jan 04, 2020 06:59
[2020-01-04 08:00] VITALS: BP 107/67
[2020-01-04] MEDS: Thiamine 100mg tab ORAL SCH (08:26)
[2020-01-04] MEDS: Docusate 100mg cap ORAL SCH (08:26)
[2020-01-04] MEDS: Midodrine 10mg tab ORAL SCH ×3 (08:26→17:32)
[2020-01-04] MEDS: Ascorbic Acid 500mg tab ORAL SCH (08:26)
[2020-01-04] MEDS: cefTRIAXone 1gm/D5W 55ml IVPB SCH ×2 (08:27)
[2020-01-04] MEDS: Milk of Magnesia 30ml Ud ORAL SCH (08:27)
[2020-01-04] MEDS: Pantoprazole Inj IVP SCH ×2 (08:27→21:41)
[2020-01-04] MEDS: Multivitamin w/Minerals tab ORAL SCH (08:42)
--- NOTE | 2020-01-04 08:52 | Nephrology Progress Note ---
Assessment/Plan Problem List: (1) RICHARD (acute kidney injury) (2) Dehydration (3) Anemia (4) GI bleed (5) Malnutrition (6) Seizure disorder (7) Electrolyte imbalance Assessment Renal failure, in the form of prerenal azotemia, most likely secondary to GI bleed GI bleed, leading to severe anemia Sepsis, pneumonia Chronic tracheostomy, ventilator dependent History of CVA History of seizure disorder History of psychiatric disorder Severe malnutrition Electrolyte abnormalities Plan January 03: Lab reviewed. Renal parameters stable. IV fluid discontinued. High LFTs declining. Continue same. January 02: Lab reviewed. Renal parameters stable. Continue per PMD and consultants. LFTs remain elevated. Continue to monitor. Continue slow hydration Discontinue blood pressure medications as her blood pressure is low Discontinue diuretics Monitor renal parameters Transfusion as needed GI evaluation Correct electrolyte abnormalities Check B12 level, folate, and thyroid function tests: Results noted Subjective ROS Limited/Unobtainable: Yes Objective Objective Last 24 Hour Vital Signs Date Time Temp Pulse Resp B/P (MAP) Pulse Ox O2 Delivery O2 Flow Rate FiO2 01/04/20 07:10 82 22 30 01/04/20 05:00 71 24 30 01/04/20 04:00 68 01/04/20 04:00 30 01/04/20 04:00 98.0 74 22 141/75 (97) 100 01/04/20 04:00 Mechanical Ventilator 01/04/20 03:00 70 27 30 01/04/20 01:21 62 21 97 Mechanical Ventilator 30 57 15 30 01/04/20 00:00 56 01/04/20 00:00 Mechanical Ventilator 01/04/20 00:00 98.0 65 16 100/65 (77) 96 01/04/20 00:00 30 01/03/20 23:22 60 20 30 01/03/20 20:52 48 20 30 01/03/20 20:00 97.9 55 20 123/71 (88) 100 01/03/20 20:00 58 01/03/20 20:00 Mechanical Ventilator 01/03/20 20:00 30 01/03/20 18:55 50 20 100 Mechanical Ventilator 30 52 15 30 01/03/20 17:30 62 18 100 Mechanical Ventilator 30 62 15 30 01/03/20 16:00 97.2 46 18 103/62 (76) 98 01/03/20 16:00 Mechanical Ventilator 01/03/20 16:00 30 01/03/20 16:00 48 01/03/20 15:22 62 18 100 Mechanical Ventilator 30 62 15 30 01/03/20 12:47 48 16 100 Mechanical Ventilator 30 62 15 30 01/03/20 12:00 30 01/03/20 12:00 97.2 54 18 116/95 (102) 100 01/03/20 12:00 56 01/03/20 12:00 Mechanical Ventilator 01/03/20 10:30 53 14 100 Mechanical Ventilator 30 76 16 30 01/03/20 09:30 60 15 100 Mechanical Ventilator 30 76 16 30 Intake and Output 01/03/20 01/04/20 18:59 06:59 Intake Total 845 ml 805 ml Output Total 1100 ml 700 ml Balance -255 ml 105 ml IV Total 550 ml 200 ml Tube Feeding 295 ml 605 ml Output Urine Total 1100 ml 700 ml # Bowel Movements 3 Laboratory Tests 01/03/20 10:17: Arterial Blood pH 7.405, Arterial Blood Partial Pressure CO2 36.9, Arterial Blood Partial Pressure O2 139.3H, Arterial Blood HCO3 22.6, Arterial Blood Oxygen Saturation 98.5, Arterial Blood Base Excess -1.9, Tacos Test Positive 01/04/20 03:30: White Blood Count 14.2H, Red Blood Count 2.63L, Hemoglobin 8.1L, Hematocrit 24.4L, Mean Corpuscular Volume 93, Mean Corpuscular Hemoglobin 30.8, Mean Corpuscular Hemoglobin Concent 33.1, Red Cell Distribution Width 14.0, Platelet Count 227, Mean Platelet Volume 8.0, Neutrophils (%) (Auto) 67.2, Lymphocytes (% ) (Auto) 14.9L, Monocytes (%) (Auto) 8.0, Eosinophils (%) (Auto) 9.2H, Basophils (%) (Auto) 0.6, Sodium Level 140, Potassium Level 3.7, Chloride Level 108H, Carbon Dioxide Level 28, Anion Gap 4L, Blood Urea Nitrogen 5L, Creatinine 0.5L, Estimat Glomerular Filtration Rate > 60, Glucose Level 92, Calcium Level 8.2L, Magnesium Level 2.1, Total Bilirubin 0.2, Aspartate Amino Transf (AST/SGOT ) 49H, Alanine Aminotransferase (ALT/SGPT) 109H, Alkaline Phosphatase 159H, Total Protein 5.8L, Albumin 2.4L, Globulin 3.4, Albumin/Globulin Ratio 0.7L, Hepatitis A IgM Antibody [Pending], Hepatitis B Surface Antigen [Pending], Hepatitis B Core IgM Antibody [Pending], Hepatitis C Antibody [Pending] Height (Feet): 5 Height (Inches): 1.00 Weight (Pounds): 85 General Appearance: no apparent distress EENT: other - Patient is trached and is connected to vent Cardiovascular: normal rate Respiratory/Chest: decreased breath sounds Abdomen: soft Chivo Holloway MD Jan 04, 2020 08:51
--- NOTE | 2020-01-04 10:46 | Pulmonology Progress Note ---
Ivanna Mora PHOTOCOMPOSING KEYBOARD OPERATOR 01/04/20 1046: Subjective ROS Limited/Unobtainable: Yes Allergies: Coded Allergies: CARBAMAZEPINE (Verified Allergy, Unknown, 12/31/19) LORAZEPAM (Verified Allergy, Unknown, 12/31/19) All Systems: reviewed and negative except above Subjective leuk with smal trend up this am , afebrile CXR 01/01 no significant change ABG stable on SIMV mode more awake, eyes open, but poorly responsive s/p EGD 01/01 -> gastric ulcer across G tube site another episode of melena per nursing report, -Hgb 8.1 Objective Last 24 Hour Vital Signs Date Time Temp Pulse Resp B/P (MAP) Pulse Ox O2 Delivery O2 Flow Rate FiO2 01/04/20 08:49 66 22 30 01/04/20 08:00 98.0 84 26 107/67 (80) 100 01/04/20 08:00 85 01/04/20 08:00 30 01/04/20 08:00 Mechanical Ventilator 01/04/20 07:10 82 22 30 01/04/20 05:00 71 24 30 01/04/20 04:00 68 01/04/20 04:00 30 01/04/20 04:00 98.0 74 22 141/75 (97) 100 01/04/20 04:00 Mechanical Ventilator 01/04/20 03:00 70 27 30 01/04/20 01:21 62 21 97 Mechanical Ventilator 30 57 15 30 01/04/20 00:00 56 01/04/20 00:00 Mechanical Ventilator 01/04/20 00:00 98.0 65 16 100/65 (77) 96 01/04/20 00:00 30 01/03/20 23:22 60 20 30 01/03/20 20:52 48 20 30 01/03/20 20:00 97.9 55 20 123/71 (88) 100 01/03/20 20:00 58 01/03/20 20:00 Mechanical Ventilator 01/03/20 20:00 30 01/03/20 18:55 50 20 100 Mechanical Ventilator 30 52 15 30 01/03/20 17:30 62 18 100 Mechanical Ventilator 30 62 15 30 01/03/20 16:00 97.2 46 18 103/62 (76) 98 01/03/20 16:00 Mechanical Ventilator 01/03/20 16:00 30 01/03/20 16:00 48 01/03/20 15:22 62 18 100 Mechanical Ventilator 30 62 15 30 01/03/20 12:47 48 16 100 Mechanical Ventilator 30 62 15 30 01/03/20 12:00 30 01/03/20 12:00 97.2 54 18 116/95 (102) 100 01/03/20 12:00 56 01/03/20 12:00 Mechanical Ventilator Intake and Output 01/03/20 01/04/20 19:00 07:00 Intake Total 900 ml 755 ml Output Total 1100 ml 700 ml Balance -200 ml 55 ml IV Total 550 ml 150 ml Tube Feeding 350 ml 605 ml Output Urine Total 1100 ml 700 ml # Bowel Movements 3 Objective General Appearance: bedridden, pale, chronically ill looking, older than her biological age ; vent dependent female ; on vent SIMV 450-30%-12, PEEP 5 Lines, tubes and drains: peripheral, trach HEENT: normocephalic, atraumatic Neck: trach - Portex #7, secretions small amount, yellow color, thick consistency Respiratory/Chest: few scattered rhonchi BL Cardiovascular/Chest: normal rate, regular rhythm Abdomen: non tender, soft, G tube Genitourinary/Rectal: [place] Extremities: no edema, muscle atrophy Neurologic: abnormal gait, poorly responsive, more awake , eyes open Musculoskeletal: atrophy Skin: maculopapular rash improving Microbiology Date/Time Source Procedure Growth Status 01/03/20 02:55 Blood Blood Culture - Preliminary NO GROWTH AFTER 24 HOURS Resulted 01/02/20 15:50 Blood Blood Culture - Preliminary NO GROWTH AFTER 24 HOURS Resulted 01/01/20 17:10 Sputum Induced Gram Stain - Final Complete 01/01/20 17:10 Sputum Culture - Final Proteus Mirabilis Usual Respiratory Venus Complete Laboratory Tests 01/04/20 03:30: White Blood Count 14.2H, Red Blood Count 2.63L, Hemoglobin 8.1L, Hematocrit 24.4L, Mean Corpuscular Volume 93, Mean Corpuscular Hemoglobin 30.8, Mean Corpuscular Hemoglobin Concent 33.1, Red Cell Distribution Width 14.0, Platelet Count 227, Mean Platelet Volume 8.0, Neutrophils (%) (Auto) 67.2, Lymphocytes (% ) (Auto) 14.9L, Monocytes (%) (Auto) 8.0, Eosinophils (%) (Auto) 9.2H, Basophils (%) (Auto) 0.6, Sodium Level 140, Potassium Level 3.7, Chloride Level 108H, Carbon Dioxide Level 28, Anion Gap 4L, Blood Urea Nitrogen 5L, Creatinine 0.5L, Estimat Glomerular Filtration Rate > 60, Glucose Level 92, Calcium Level 8.2L, Magnesium Level 2.1, Total Bilirubin 0.2, Aspartate Amino Transf (AST/SGOT ) 49H, Alanine Aminotransferase (ALT/SGPT) 109H, Alkaline Phosphatase 159H, Total Protein 5.8L, Albumin 2.4L, Globulin 3.4, Albumin/Globulin Ratio 0.7L, Hepatitis A IgM Antibody [Pending], Hepatitis B Surface Antigen [Pending], Hepatitis B Core IgM Antibody [Pending], Hepatitis C Antibody [Pending] Current Medications Medications (Trade) Dose Ordered Sig/Villa Route PRN Reason Start Time Stop Time Status Last Admin Dose Admin Acetaminophen (Tylenol) 650 mg Q6H PRN GT Temp >100.5 01/01/20 11:00 01/31/20 10:59 Albuterol/ Ipratropium (Albuterol/ Ipratropium) 3 ml Q4HRT PRN HHN Shortness of Breath 01/01/20 10:00 01/06/20 09:59 Albuterol/ Ipratropium (Albuterol/ Ipratropium) 3 ml Q6HRT HHN 01/01/20 01:00 01/06/20 00:59 01/04/20 07:10 Ascorbic Acid (Vitamin C) 500 mg DAILY ORAL 01/01/20 09:00 01/31/20 08:59 01/04/20 08:26 Ceftriaxone Sodium 1 gm/ Dextrose 55 ml @ 110 mls/hr Q24H IVPB 01/03/20 09:00 01/10/20 08:59 01/04/20 08:27 Clonazepam (KlonoPIN) 1 mg Q6H ORAL 12/31/19 21:00 01/07/20 20:59 01/04/20 08:26 Docusate Sodium (Colace) 100 mg DAILY ORAL 01/01/20 09:00 01/31/20 08:59 01/04/20 08:26 Gabapentin (Neurontin) 300 mg EVERY 8 HOURS ORAL 12/31/19 22:00 01/30/20 21:59 01/04/20 05:17 Haloperidol Lactate (Haldol) 5 mg Q6H PRN IM Agitation 01/01/20 23:30 02/15/20 23:29 Levetiracetam (Keppra) 1,000 mg DAILY ORAL 01/01/20 09:00 01/31/20 08:59 01/04/20 08:26 Levothyroxine Sodium (Synthroid) 75 mcg DAILY ORAL 01/01/20 09:00 01/31/20 08:59 01/04/20 08:26 Loperamide HCl (Imodium) 2 mg Q12HR PRN ORAL Diarrhea 12/31/19 21:15 01/30/20 21:14 Magnesium Hydroxide (Mom) 30 ml DAILY ORAL 01/01/20 09:00 01/31/20 08:59 01/04/20 08:27 Midodrine (Pro-Amatine) 10 mg THREE TIMES A DAY ORAL 01/02/20 13:27 04/01/20 13:26 01/04/20 08:26 Multivitamins Therapeutic (Therapeutic Multivitamin) 1 ea DAILY ORAL 01/01/20 09:00 01/31/20 08:59 01/04/20 08:42 Ondansetron HCl (Zofran) 4 mg Q6H PRN ORAL Nausea & Vomiting 12/31/19 21:00 01/30/20 20:59 Pantoprazole (Protonix) 40 mg EVERY 12 HOURS IVP 01/01/20 09:00 01/31/20 08:59 01/04/20 08:27 Rifaximin (Xifaxan) 550 mg TWICE A DAY ORAL 01/01/20 09:00 01/08/20 08:59 01/04/20 08:26 Thiamine HCl (Vitamin B1) 100 mg DAILY ORAL 01/01/20 09:00 01/31/20 08:59 01/04/20 08:26 Tramadol HCl (Ultram) 50 mg Q6H PRN ORAL For Pain (4-10) 12/31/19 21:15 01/07/20 20:59 Assessment/Plan Assessment/Plan ASSESSMENT VDRF/trach status Sepsis Possible pneumonia recurrent GI bleeding Anemia secondary to GI bleeding Aspiration risk Dysphagia, feeding by G-tube Chronic encephalopathy Acute kidney injury likely secondary to dehydration Electrolyte imbalance Severe protein calorie malnutrition Hypertension History of CVA Seizure disorder Psychiatric disorder Presumed scabies, s/p Rx Thrombocytopenia-transient- resolved PLAN OF CARE JULIANA vent support, pulm toilet ABG was stable on current settings, now on SIMV mode 450-30-12 PEEP5 , no signs of resp distress on these settings repeat ABG on SIMV 01/02 stable, keep settings as is and titrate as needed fu CXR no sign change from initial pulm toilet via HHN BCX / +CONS likely contaminant, off Vanco ; repeated BCX 01/01 and 12/24 NGTD SCX + Proteus , now on Ceftriaxone as per ID recs rapid COVID 19 NGT in ED aspiration precautions fup CXR Venous Duplex BLE -negative, get SCD ( unable to give a/c given anemia) closely monitor hemodynamic status Protonix IV q12 GT feeding PPI stool OB pending transfuse to keep Hgb > 7. heme and GI follows s/p EGD 01/01 -> gastric ulcer across G tube site , no active bleeding HH at baseline episode of GI bleeding this am- per nursing , may need colonoscopy trend LFT-> trending down, hep panel pending hx of cirrhosis- per GI management monitor renal parameters, lytes, avoid nephrotoxic BUN trending down, creat stable, likely prerenal due to dehydration replace e/lytes as per nephro recs monitor volumes seizure precautions, continue Keppra, trend LFT BP management with current regimen SNF meds supportive care dietary eval s/p 12/31 Rx for presumed scabies with permethrin and Ivermectin, ID recommends to repeat Ivermectin in 7 days 01/07 case discussed and evaluated by supervising physician Raul Esparza MD 01/04/20 1229: Subjective Allergies: Coded Allergies: CARBAMAZEPINE (Verified Allergy, Unknown, 12/31/19) LORAZEPAM (Verified Allergy, Unknown, 12/31/19) Assessment/Plan Assessment/Plan Patient seen and examined with PHOTOCOMPOSING KEYBOARD OPERATOR. Agree with above A&P as it reflects our joint deliberations. Ivanna Mora NP Jan 04, 2020 10:46 Raul Esparza MD Jan 04, 2020 12:29
--- NOTE | 2020-01-04 11:09 | General Progress Note ---
Assessment/Plan Problem List: (1) G tube feedings ICD Codes: Z93.1 - Gastrostomy status SNOMED: 481205932, 717028404, 200365146 (2) GI bleed ICD Codes: K92.2 - Gastrointestinal hemorrhage, unspecified SNOMED: 68737345 (3) Sepsis ICD Codes: A41.9 - Sepsis, unspecified organism SNOMED: 47054659 (4) Pneumonia ICD Codes: J18.9 - Pneumonia, unspecified organism SNOMED: 658201192 Assessment/Plan: s/p EGD gastric ulcer no recurrent bleed G TF monitor H&H ppi Subjective Allergies: Coded Allergies: CARBAMAZEPINE (Verified Allergy, Unknown, 12/31/19) LORAZEPAM (Verified Allergy, Unknown, 12/31/19) Objective Last 24 Hour Vital Signs Date Time Temp Pulse Resp B/P (MAP) Pulse Ox O2 Delivery O2 Flow Rate FiO2 01/04/20 08:49 66 22 30 01/04/20 08:00 98.0 84 26 107/67 (80) 100 01/04/20 08:00 85 01/04/20 08:00 30 01/04/20 08:00 Mechanical Ventilator 01/04/20 07:10 82 22 30 01/04/20 05:00 71 24 30 01/04/20 04:00 68 01/04/20 04:00 30 01/04/20 04:00 98.0 74 22 141/75 (97) 100 01/04/20 04:00 Mechanical Ventilator 01/04/20 03:00 70 27 30 01/04/20 01:21 62 21 97 Mechanical Ventilator 30 57 15 30 01/04/20 00:00 56 01/04/20 00:00 Mechanical Ventilator 01/04/20 00:00 98.0 65 16 100/65 (77) 96 01/04/20 00:00 30 01/03/20 23:22 60 20 30 01/03/20 20:52 48 20 30 01/03/20 20:00 97.9 55 20 123/71 (88) 100 01/03/20 20:00 58 01/03/20 20:00 Mechanical Ventilator 01/03/20 20:00 30 01/03/20 18:55 50 20 100 Mechanical Ventilator 30 52 15 30 01/03/20 17:30 62 18 100 Mechanical Ventilator 30 62 15 30 01/03/20 16:00 97.2 46 18 103/62 (76) 98 01/03/20 16:00 Mechanical Ventilator 01/03/20 16:00 30 01/03/20 16:00 48 01/03/20 15:22 62 18 100 Mechanical Ventilator 30 62 15 30 01/03/20 12:47 48 16 100 Mechanical Ventilator 30 62 15 30 01/03/20 12:00 30 01/03/20 12:00 97.2 54 18 116/95 (102) 100 01/03/20 12:00 56 01/03/20 12:00 Mechanical Ventilator Intake and Output 01/03/20 01/04/20 19:00 07:00 Intake Total 900 ml 755 ml Output Total 1100 ml 700 ml Balance -200 ml 55 ml IV Total 550 ml 150 ml Tube Feeding 350 ml 605 ml Output Urine Total 1100 ml 700 ml # Bowel Movements 3 Laboratory Tests 01/04/20 03:30: White Blood Count 14.2H, Red Blood Count 2.63L, Hemoglobin 8.1L, Hematocrit 24.4L, Mean Corpuscular Volume 93, Mean Corpuscular Hemoglobin 30.8, Mean Corpuscular Hemoglobin Concent 33.1, Red Cell Distribution Width 14.0, Platelet Count 227, Mean Platelet Volume 8.0, Neutrophils (%) (Auto) 67.2, Lymphocytes (% ) (Auto) 14.9L, Monocytes (%) (Auto) 8.0, Eosinophils (%) (Auto) 9.2H, Basophils (%) (Auto) 0.6, Sodium Level 140, Potassium Level 3.7, Chloride Level 108H, Carbon Dioxide Level 28, Anion Gap 4L, Blood Urea Nitrogen 5L, Creatinine 0.5L, Estimat Glomerular Filtration Rate > 60, Glucose Level 92, Calcium Level 8.2L, Magnesium Level 2.1, Total Bilirubin 0.2, Aspartate Amino Transf (AST/SGOT ) 49H, Alanine Aminotransferase (ALT/SGPT) 109H, Alkaline Phosphatase 159H, Total Protein 5.8L, Albumin 2.4L, Globulin 3.4, Albumin/Globulin Ratio 0.7L, Hepatitis A IgM Antibody [Pending], Hepatitis B Surface Antigen [Pending], Hepatitis B Core IgM Antibody [Pending], Hepatitis C Antibody [Pending] Height (Feet): 5 Height (Inches): 1.00 Weight (Pounds): 85 General Appearance: alert EENT: normal ENT inspection Neck: supple Cardiovascular: normal rate Respiratory/Chest: decreased breath sounds Abdomen: normal bowel sounds, non tender, soft Extremities: non-tender Satish Carrillo MD Jan 04, 2020 11:09
[2020-01-04 12:00] VITALS: BP 101/63
[2020-01-04 16:00] VITALS: BP 105/70
--- NOTE | 2020-01-04 16:23 | Surgery Progress Note ---
Surgery Progress Note Subjective Additional Comments leukocytosis labs noted exam stable comfortable no n/v/f/c Objective Last 24 Hour Vital Signs Date Time Temp Pulse Resp B/P (MAP) Pulse Ox O2 Delivery O2 Flow Rate FiO2 01/04/20 16:00 Mechanical Ventilator 01/04/20 16:00 30 01/04/20 14:51 65 22 30 01/04/20 12:49 70 22 30 01/04/20 12:00 97.7 46 24 101/63 (76) 100 01/04/20 12:00 30 01/04/20 12:00 52 01/04/20 12:00 Mechanical Ventilator 01/04/20 11:20 73 22 30 01/04/20 08:49 66 22 30 01/04/20 08:00 98.0 84 26 107/67 (80) 100 01/04/20 08:00 85 01/04/20 08:00 30 01/04/20 08:00 Mechanical Ventilator 01/04/20 07:10 82 22 30 01/04/20 05:00 71 24 30 01/04/20 04:00 68 01/04/20 04:00 30 01/04/20 04:00 98.0 74 22 141/75 (97) 100 01/04/20 04:00 Mechanical Ventilator 01/04/20 03:00 70 27 30 01/04/20 01:21 62 21 97 Mechanical Ventilator 30 57 15 30 01/04/20 00:00 56 01/04/20 00:00 Mechanical Ventilator 01/04/20 00:00 98.0 65 16 100/65 (77) 96 01/04/20 00:00 30 01/03/20 23:22 60 20 30 01/03/20 20:52 48 20 30 01/03/20 20:00 97.9 55 20 123/71 (88) 100 01/03/20 20:00 58 01/03/20 20:00 Mechanical Ventilator 01/03/20 20:00 30 01/03/20 18:55 50 20 100 Mechanical Ventilator 30 52 15 30 01/03/20 17:30 62 18 100 Mechanical Ventilator 30 62 15 30 I&O Intake and Output 01/03/20 01/04/20 19:00 07:00 Intake Total 900 ml 755 ml Output Total 1100 ml 700 ml Balance -200 ml 55 ml IV Total 550 ml 150 ml Tube Feeding 350 ml 605 ml Output Urine Total 1100 ml 700 ml # Bowel Movements 3 Dressing: other Wound: other Drains: other Cardiovascular: RSR Respiratory: decreased breath sounds Abdomen: soft, non-tender, present bowel sounds Extremities: no tenderness, no cyanosis Laboratory Tests Test 01/04/20 03:30 White Blood Count 14.2 K/UL (4.8-10.8) H Red Blood Count 2.63 M/UL (4.20-5.40) L Hemoglobin 8.1 G/DL (12.0-16.0) L Hematocrit 24.4 % (37.0-47.0) L Mean Corpuscular Volume 93 FL (80-99) Mean Corpuscular Hemoglobin 30.8 PG (27.0-31.0) Mean Corpuscular Hemoglobin Concent 33.1 G/DL (32.0-36.0) Red Cell Distribution Width 14.0 % (11.6-14.8) Platelet Count 227 K/UL (150-450) Mean Platelet Volume 8.0 FL (6.5-10.1) Neutrophils (%) (Auto) 67.2 % (45.0-75.0) Lymphocytes (%) (Auto) 14.9 % (20.0-45.0) L Monocytes (%) (Auto) 8.0 % (1.0-10.0) Eosinophils (%) (Auto) 9.2 % (0.0-3.0) H Basophils (%) (Auto) 0.6 % (0.0-2.0) Sodium Level 140 MMOL/L (136-145) Potassium Level 3.7 MMOL/L (3.5-5.1) Chloride Level 108 MMOL/L (98-107) H Carbon Dioxide Level 28 MMOL/L (21-32) Anion Gap 4 mmol/L (5-15) L Blood Urea Nitrogen 5 mg/dL (7-18) L Creatinine 0.5 MG/DL (0.55-1.30) L Estimat Glomerular Filtration Rate > 60 mL/min (>60) Glucose Level 92 MG/DL (74-106) Calcium Level 8.2 MG/DL (8.5-10.1) L Magnesium Level 2.1 MG/DL (1.8-2.4) Total Bilirubin 0.2 MG/DL (0.2-1.0) Aspartate Amino Transf (AST/SGOT) 49 U/L (15-37) H Alanine Aminotransferase (ALT/SGPT) 109 U/L (12-78) H Alkaline Phosphatase 159 U/L (46-116) H Total Protein 5.8 G/DL (6.4-8.2) L Albumin 2.4 G/DL (3.4-5.0) L Globulin 3.4 g/dL Albumin/Globulin Ratio 0.7 (1.0-2.7) L Hepatitis A IgM Antibody Pending Hepatitis B Surface Antigen Pending Hepatitis B Core IgM Antibody Pending Hepatitis C Antibody Pending Plan Problems: (1) Pneumonia (2) Sepsis Assessment & Plan: leukocytosis anemia lactic acidosis agree with GI recommend EGD planned for 12/31 hold feeding for now trend h/h monitor for bleeding no acute hemorrhage will be available in event needs exploration for hemostasis prbc as per heme thank you will follow with recs Pt presented on admission in emaciated state. Pt has tracheostomy and GT. NO skin concerns noted to skin under collar of trach. NO erythema or evidence of skin erosion at GT site. Pt noted to have scaly pimple-like rash with webbing noted to R and L axillae, undersides of both breasts, Bilat groin and lower back. Tracking and webbing noted to hands and feet. Pt restless and scratching at skin. Non-Blanching erythema without induration or fluctuance noted to R and L hips and trochanteric areas.Non-blanching erythema noted along spine. Non-Blanching erythema without induration noted to Sacrum. Non-Blanching erythema noted to R and L Malleoli and both heels. Tx.Plan: Please apply Cavilon Skin Barrier to each bony Prominences at risks for Skin Breakdown. Cover each area with Optifoam drsgs. Change every 7 days and prn. Apply Moisture Barrier Paste to Sacrum. Cover with Optifoam drsg. Change every 3 days and prn. Reposition at least every 2hours or as tolerated. Off-load heels with pillow. APM/EMELI Mattress overlay. (3) GI bleed (4) G tube feedings Assessment & Plan: DAILY ESTIMATED NEEDS: Needs based on Underweight, critical care 37.3kg 30-40 kcals/kg 3969-1445 total kcals 1.25-2 g protein/kg 47-75 g total protein 25-35 mL/kg 933-1306 total fluid mLs NUTRITION DIAGNOSIS: Increased kcal and pro needs r/t underweight status as evidenced by BMI 14.1, pt is 68% of ideal body weight w/ generalized severe wasting, trach and peg dep. CURRENT TF: Now NPO- pending EGD ENTERAL NUTRITION RECOMMENDATIONS: As able, rec JEVITY 1.2 w/ goal of 50ml/hr x22 hrs to provide 1100ml, 1320 kcal, 61g pro, 888ml free H2O - As medically able, rec to start feeds of Jevity 1.2 @30ml/hr for 6 hrs. Advance as tolerated 10ml/hr q4-6 hrs to goal of 50ml/hr. - HOLD 1HR BEFORE AND AFTER SYNTHROID MEDS - Flush per . HOB over 30 degrees ------- ADDITIONAL RECOMMENDATIONS: 1) Per SNF: 5'4" and 81# Maintain calibrated bed scale wts w/ added P200 mattress 2) Lytes daily, replete as needed (low K, phos) 3) Skin integrity: add BRIAN VIA GT BID, continue Vit C 4) TF recs as above as medically able George Woods Jan 04, 2020 16:23
[2020-01-04 20:00] VITALS: BP 107/61
[2020-01-05] VITALS (7 sets, daily range): BP systolic 81–114; BP diastolic 53–74
--- NOTE | 2020-01-05 00:02 | Psych Consult Progress Note ---
Psychiatry Progress Note Psychiatry Progress Note Subjective the pt cont to benefits from restraints she is more alert and has episodes of agitation Medications Current Medications Medications (Trade) Dose Ordered Sig/Villa Route PRN Reason Start Time Stop Time Status Last Admin Dose Admin Acetaminophen (Tylenol) 650 mg Q6H PRN GT Temp >100.5 01/01/20 11:00 01/31/20 10:59 Albuterol/ Ipratropium (Albuterol/ Ipratropium) 3 ml Q4HRT PRN HHN Shortness of Breath 01/01/20 10:00 01/06/20 09:59 Albuterol/ Ipratropium (Albuterol/ Ipratropium) 3 ml Q6HRT HHN 01/01/20 01:00 01/06/20 00:59 01/04/20 14:51 Ascorbic Acid (Vitamin C) 500 mg DAILY ORAL 01/01/20 09:00 01/31/20 08:59 01/04/20 08:26 Ceftriaxone Sodium 1 gm/ Dextrose 55 ml @ 110 mls/hr Q24H IVPB 01/03/20 09:00 01/10/20 08:59 01/04/20 08:27 Clonazepam (KlonoPIN) 1 mg Q6H ORAL 12/31/19 21:00 01/07/20 20:59 01/04/20 21:41 Docusate Sodium (Colace) 100 mg DAILY ORAL 01/01/20 09:00 01/31/20 08:59 01/04/20 08:26 Gabapentin (Neurontin) 300 mg EVERY 8 HOURS ORAL 12/31/19 22:00 01/30/20 21:59 01/04/20 21:41 Haloperidol Lactate (Haldol) 5 mg Q6H PRN IM Agitation 01/01/20 23:30 02/15/20 23:29 Levetiracetam (Keppra) 1,000 mg DAILY ORAL 01/01/20 09:00 01/31/20 08:59 01/04/20 08:26 Levothyroxine Sodium (Synthroid) 75 mcg DAILY ORAL 01/01/20 09:00 01/31/20 08:59 01/04/20 08:26 Loperamide HCl (Imodium) 2 mg Q12HR PRN ORAL Diarrhea 12/31/19 21:15 01/30/20 21:14 Magnesium Hydroxide (Mom) 30 ml DAILY ORAL 01/01/20 09:00 01/31/20 08:59 01/04/20 08:27 Midodrine (Pro-Amatine) 10 mg THREE TIMES A DAY ORAL 01/02/20 13:27 04/01/20 13:26 01/04/20 17:32 Multivitamins Therapeutic (Therapeutic Multivitamin) 1 ea DAILY ORAL 01/01/20 09:00 01/31/20 08:59 01/04/20 08:42 Ondansetron HCl (Zofran) 4 mg Q6H PRN ORAL Nausea & Vomiting 12/31/19 21:00 01/30/20 20:59 Pantoprazole (Protonix) 40 mg EVERY 12 HOURS IVP 01/01/20 09:00 01/31/20 08:59 01/04/20 21:41 Rifaximin (Xifaxan) 550 mg TWICE A DAY ORAL 01/01/20 09:00 01/08/20 08:59 01/04/20 17:32 Thiamine HCl (Vitamin B1) 100 mg DAILY ORAL 01/01/20 09:00 01/31/20 08:59 01/04/20 08:26 Tramadol HCl (Ultram) 50 mg Q6H PRN ORAL For Pain (4-10) 12/31/19 21:15 01/07/20 20:59 Neurological/Psychiatric: Denies: no symptoms, anxiety, depressed, emotional problems, headache, numbness, paresthesia, pre-existing deficit, seizure, tingling, tremors, weakness, other Allergies: Coded Allergies: CARBAMAZEPINE (Verified Allergy, Unknown, 12/31/19) LORAZEPAM (Verified Allergy, Unknown, 12/31/19) Objective Data Height (Feet): 5 Height (Inches): 1.00 Weight (Pounds): 85 General Appearance: alert Additional Comments: waxing and waning consciousness. Affect is flat. Thought process, there is a paucity of thought content. Thought content, no suicidal or homicidal ideation. Cognition is impaired. Insight and judgment is impaired. Assessment/Plan Pel[place] I: ASSESSMENT: [place] I Chronic encephalopathy. Agitation. [place] II Deferred. Pel[place] III As above. Pelkie IV Low. Pelkie V 20. PLAN: 1. Haldol IM as needed. 2. Discussed with the nurse. Assessment/Plan: ASSESSMENT: Pel[place] I Chronic encephalopathy. Agitation. Pelkie II Deferred. Pelkie III As above. Pelkie IV Low. Pel[place] V 20. PLAN: 1. Haldol IM as needed. 2. Discussed with the nurse. Rhonda Maxwell MD Jan 05, 2020 00:01
--- NOTE | 2020-01-05 00:13 | Cardiology Progress Note ---
Assessment/Plan Assessment/Plan LATE NOTE ENTRY DATE OF ENCOUNTER: Jan 04, 2020 TIME OF NOTE: 19:07 1. Hypotension due to septic shock as well as hypovolemia, continue hydration and midodrine. 2. Hepatitis. 3. Anemia of chronic disease 4. Acute renal failure, resolved. 5. GI bleeding due to gastric ulceration. 6. Dysphagia, s/p PEG placement. 7. VDRF, s/p tracheostomy tube placement. Subjective Subjective Sinus rhythm at rate of 99. On the vent with FiO2 of 30%. Objective Last 24 Hour Vital Signs Date Time Temp Pulse Resp B/P (MAP) Pulse Ox O2 Delivery O2 Flow Rate FiO2 01/04/20 23:21 Mechanical Ventilator 01/04/20 23:06 99 20 30 01/04/20 21:26 65 22 30 01/04/20 20:13 68 23 30 01/04/20 20:00 98.3 76 24 107/61 (76) 97 01/04/20 20:00 30 01/04/20 20:00 Mechanical Ventilator 01/04/20 19:26 61 01/04/20 17:56 72 22 30 01/04/20 16:00 Mechanical Ventilator 01/04/20 16:00 30 01/04/20 16:00 63 01/04/20 16:00 97.7 78 24 105/70 (82) 99 01/04/20 14:51 65 22 30 01/04/20 12:49 70 22 30 01/04/20 12:00 97.7 46 24 101/63 (76) 100 01/04/20 12:00 30 01/04/20 12:00 52 01/04/20 12:00 Mechanical Ventilator 01/04/20 11:20 73 22 30 01/04/20 08:49 66 22 30 01/04/20 08:00 98.0 84 26 107/67 (80) 100 01/04/20 08:00 85 01/04/20 08:00 30 01/04/20 08:00 Mechanical Ventilator 01/04/20 07:10 82 22 30 01/04/20 05:00 71 24 30 01/04/20 04:00 68 01/04/20 04:00 30 01/04/20 04:00 98.0 74 22 141/75 (97) 100 01/04/20 04:00 Mechanical Ventilator 01/04/20 03:00 70 27 30 01/04/20 01:21 62 21 97 Mechanical Ventilator 30 57 15 30 Intake and Output 01/04/20 01/05/20 19:00 07:00 Intake Total 740 ml Output Total 1000 ml Balance -260 ml Intake Free Water 300 ml Tube Feeding 440 ml Output Urine Total 1000 ml # Bowel Movements 3 Laboratory Tests Test 01/04/20 03:30 White Blood Count 14.2 K/UL (4.8-10.8) H Red Blood Count 2.63 M/UL (4.20-5.40) L Hemoglobin 8.1 G/DL (12.0-16.0) L Hematocrit 24.4 % (37.0-47.0) L Mean Corpuscular Volume 93 FL (80-99) Mean Corpuscular Hemoglobin 30.8 PG (27.0-31.0) Mean Corpuscular Hemoglobin Concent 33.1 G/DL (32.0-36.0) Red Cell Distribution Width 14.0 % (11.6-14.8) Platelet Count 227 K/UL (150-450) Mean Platelet Volume 8.0 FL (6.5-10.1) Neutrophils (%) (Auto) 67.2 % (45.0-75.0) Lymphocytes (%) (Auto) 14.9 % (20.0-45.0) L Monocytes (%) (Auto) 8.0 % (1.0-10.0) Eosinophils (%) (Auto) 9.2 % (0.0-3.0) H Basophils (%) (Auto) 0.6 % (0.0-2.0) Sodium Level 140 MMOL/L (136-145) Potassium Level 3.7 MMOL/L (3.5-5.1) Chloride Level 108 MMOL/L (98-107) H Carbon Dioxide Level 28 MMOL/L (21-32) Anion Gap 4 mmol/L (5-15) L Blood Urea Nitrogen 5 mg/dL (7-18) L Creatinine 0.5 MG/DL (0.55-1.30) L Estimat Glomerular Filtration Rate > 60 mL/min (>60) Glucose Level 92 MG/DL (74-106) Calcium Level 8.2 MG/DL (8.5-10.1) L Magnesium Level 2.1 MG/DL (1.8-2.4) Total Bilirubin 0.2 MG/DL (0.2-1.0) Aspartate Amino Transf (AST/SGOT) 49 U/L (15-37) H Alanine Aminotransferase (ALT/SGPT) 109 U/L (12-78) H Alkaline Phosphatase 159 U/L (46-116) H Total Protein 5.8 G/DL (6.4-8.2) L Albumin 2.4 G/DL (3.4-5.0) L Globulin 3.4 g/dL Albumin/Globulin Ratio 0.7 (1.0-2.7) L Hepatitis A IgM Antibody Pending Hepatitis B Surface Antigen Pending Hepatitis B Core IgM Antibody Pending Hepatitis C Antibody Pending Microbiology Date/Time Source Procedure Growth Status 01/03/20 02:55 Blood Blood Culture - Preliminary NO GROWTH AFTER 24 HOURS Resulted 01/02/20 15:50 Blood Blood Culture - Preliminary NO GROWTH AFTER 24 HOURS Resulted Objective HEENT: PERRLA, EOMI, Trach site with moderate secretions. NECK: Cannot assess JVP, no carotid bruit with normal upstroke. LUNGS: Bilateral rhonchi. CARDIAC: Regular rhythm and rate. Normal S1, S2 with no murmurs, gallops or rubs. ABDOMEN: Soft with G-tube. No hepatomegaly. EXTREMITIES: No edema, clubbing or cyanosis. Desmond Gleason MD Jan 05, 2020 00:13
[2020-01-05] MEDS: Albuterol/Ipratropium 3ml neb HHN SCH ×3 (01:06→19:50)
--- NOTE | 2020-01-05 07:36 | Infectious Diseases Prog Note ---
Assessment/Plan 39yo F with: Fever to 101.5 Possible pna on CXR Leukocytosis to 24, improving Recurrent GIB 12/30 BCx 1/2 +CONS, likely contaminant 12/30 UA neg, COVID rapid Ag neg 12/30 CXR 1. Density overlying the bilateral lung apices. May represent pleural thickening, multifocal airspace opacities, versus summation artifact. 01/01 BCx NTD 01/02 BCx NTD Possible Scabies SP tx w/ Permethrin and Ivermectin 12/31 R/o DVT: None on US 12/30 MRSA nares neg Recurrent GIBs, FOBT+ Hepatic encephalopathy, chronic S/p Trach/PEG Resides at SNF Plan: Cont CTX 1g IV daily #3 for SBP ppx in the setting of GIB 01/02 SP vanco #2, Zosyn #2 For possible Scabies, can repeat ivermectin at day 7 (01/07) to ensure complete tx F/u BCx Trend WBC Monitor CBC/CMP Monitor resp status Monitor temp and hemodynamics Thank you for this consult. [facility] will continue to follow. Subjective Allergies: Coded Allergies: CARBAMAZEPINE (Verified Allergy, Unknown, 12/31/19) LORAZEPAM (Verified Allergy, Unknown, 12/31/19) AF NAD on vent Objective Last 24 Hour Vital Signs Date Time Temp Pulse Resp B/P (MAP) Pulse Ox O2 Delivery O2 Flow Rate FiO2 01/05/20 07:10 59 12 100 30 60 12 01/05/20 04:35 85 20 30 01/05/20 04:00 81 01/05/20 04:00 98.0 81 20 104/73 (83) 97 01/05/20 04:00 30 01/05/20 03:46 Mechanical Ventilator 01/05/20 02:35 72 21 30 01/05/20 01:04 89 25 96 30 86 22 01/05/20 00:00 98.5 86 22 114/74 (87) 100 01/05/20 00:00 84 01/04/20 23:21 Mechanical Ventilator 01/04/20 23:06 99 20 30 01/04/20 21:26 65 22 30 01/04/20 20:13 68 23 30 01/04/20 20:00 98.3 76 24 107/61 (76) 97 01/04/20 20:00 30 01/04/20 20:00 Mechanical Ventilator 01/04/20 19:26 61 01/04/20 17:56 72 22 30 01/04/20 16:00 Mechanical Ventilator 01/04/20 16:00 30 01/04/20 16:00 63 01/04/20 16:00 97.7 78 24 105/70 (82) 99 01/04/20 14:51 65 22 30 01/04/20 12:49 70 22 30 01/04/20 12:00 97.7 46 24 101/63 (76) 100 01/04/20 12:00 30 01/04/20 12:00 52 01/04/20 12:00 Mechanical Ventilator 01/04/20 11:20 73 22 30 01/04/20 08:49 66 22 30 01/04/20 08:00 98.0 84 26 107/67 (80) 100 01/04/20 08:00 85 01/04/20 08:00 30 01/04/20 08:00 Mechanical Ventilator Height (Feet): 5 Height (Inches): 1.00 Weight (Pounds): 85 Unchanged Gen: Young woman, chronically ill appearing HEENT: Trach CV: RRR Pulm: CTAB anteriorly on vent Abd: Thin, soft, NTND +PEG Ext: Thin, no c/c/e Microbiology Date/Time Source Procedure Growth Status 01/03/20 02:55 Blood Blood Culture - Preliminary NO GROWTH AFTER 48 HOURS Resulted 01/02/20 15:50 Blood Blood Culture - Preliminary NO GROWTH AFTER 48 HOURS Resulted Current Medications Medications (Trade) Dose Ordered Sig/Villa Route PRN Reason Start Time Stop Time Status Last Admin Dose Admin Acetaminophen (Tylenol) 650 mg Q6H PRN GT Temp >100.5 01/01/20 11:00 01/31/20 10:59 Albuterol/ Ipratropium (Albuterol/ Ipratropium) 3 ml Q4HRT PRN HHN Shortness of Breath 01/01/20 10:00 01/06/20 09:59 Albuterol/ Ipratropium (Albuterol/ Ipratropium) 3 ml Q6HRT HHN 01/01/20 01:00 01/06/20 00:59 01/05/20 06:56 Ascorbic Acid (Vitamin C) 500 mg DAILY ORAL 01/01/20 09:00 01/31/20 08:59 01/04/20 08:26 Ceftriaxone Sodium 1 gm/ Dextrose 55 ml @ 110 mls/hr Q24H IVPB 01/03/20 09:00 01/10/20 08:59 01/04/20 08:27 Clonazepam (KlonoPIN) 1 mg Q6H ORAL 12/31/19 21:00 01/07/20 20:59 01/05/20 02:31 Docusate Sodium (Colace) 100 mg DAILY ORAL 01/01/20 09:00 01/31/20 08:59 01/04/20 08:26 Gabapentin (Neurontin) 300 mg EVERY 8 HOURS ORAL 12/31/19 22:00 01/30/20 21:59 01/05/20 06:06 Haloperidol Lactate (Haldol) 5 mg Q6H PRN IM Agitation 01/01/20 23:30 02/15/20 23:29 Levetiracetam (Keppra) 1,000 mg DAILY ORAL 01/01/20 09:00 01/31/20 08:59 01/04/20 08:26 Levothyroxine Sodium (Synthroid) 75 mcg DAILY ORAL 01/01/20 09:00 01/31/20 08:59 01/04/20 08:26 Loperamide HCl (Imodium) 2 mg Q12HR PRN ORAL Diarrhea 12/31/19 21:15 01/30/20 21:14 Magnesium Hydroxide (Mom) 30 ml DAILY ORAL 01/01/20 09:00 01/31/20 08:59 01/04/20 08:27 Midodrine (Pro-Amatine) 10 mg THREE TIMES A DAY ORAL 01/02/20 13:27 04/01/20 13:26 01/04/20 17:32 Multivitamins Therapeutic (Therapeutic Multivitamin) 1 ea DAILY ORAL 01/01/20 09:00 01/31/20 08:59 01/04/20 08:42 Ondansetron HCl (Zofran) 4 mg Q6H PRN ORAL Nausea & Vomiting 12/31/19 21:00 01/30/20 20:59 Pantoprazole (Protonix) 40 mg EVERY 12 HOURS IVP 01/01/20 09:00 01/31/20 08:59 01/04/20 21:41 Rifaximin (Xifaxan) 550 mg TWICE A DAY ORAL 01/01/20 09:00 01/08/20 08:59 01/04/20 17:32 Thiamine HCl (Vitamin B1) 100 mg DAILY ORAL 01/01/20 09:00 01/31/20 08:59 01/04/20 08:26 Tramadol HCl (Ultram) 50 mg Q6H PRN ORAL For Pain (4-10) 12/31/19 21:15 01/07/20 20:59 Missy Rouse M.D. Jan 05, 2020 07:36
--- NOTE | 2020-01-05 08:47 | Hematology/Onc Progress Note ---
Assessment/Plan Assessment/Plan # Thrombocytopenia med related v labs error --> plt trend 167-->61-->227 --> meds have been reviewed --> no hep or lovenox (if less than 50k plt) # Anemia rule out underlying gi bleed --> Dr. Carrillo has been consulted-->endosco gastric ulceration --> trend hgb 7-->7.4-->7.9-->8.1 --> anemia panel ordered --> prn transfusion --> protonix started # Leukocytosis is likely related to pna on imaging --> abx has been started --> if wbc worsens, consider abx vanc/zosyn--> ceftriaxone --> smear is noted --> wbc 25-->15-->14 # Sepsis --> on abx for pna # Pneumonia --> pulm, Dr. 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 personnel consultant care, will follow Subjective Constitutional: Denies: no symptoms, chills, fever, malaise, weakness, other HEENT: Denies: no symptoms, eye pain, blurred vision, tearing, double vision, ear pain, ear discharge, nose pain, nose congestion, throat pain, throat swelling, mouth pain, mouth swelling, other Cardiovascular: Denies: no symptoms, chest pain, edema, irregular heart rate, lightheadedness, palpitations, syncope, other Gastrointestinal/Abdominal: Denies: no symptoms, abdomen distended, abdominal pain, black stools, tarry stools, blood in stool, constipated, diarrhea, difficulty swallowing, nausea, poor appetite, poor fluid intake, rectal bleeding , vomiting, other Genitourinary: Denies: no symptoms, burning, discharge, frequency, flank pain, hematuria, incontinence, pain, urgency, other Neurologic/Psychiatric: Denies: no symptoms, anxiety, depressed, emotional problems, headache, numbness, paresthesia, pre-existing deficit, seizure, tingling, tremors, weakness, other Endocrine: Denies: no symptoms, excessive sweating, flushing, intolerance to cold, intolerance to heat, increased hunger, increased thirst, increased urine, unexplained weight gain, unexplained weight loss, other Allergies: Coded Allergies: CARBAMAZEPINE (Verified Allergy, Unknown, 12/31/19) LORAZEPAM (Verified Allergy, Unknown, 12/31/19) Subjective 01/01 altered, trach, no bleedin wbc improved on abx, seen by gi 01/02 egd study noted, also with plts 61k, have vitaly Armnedariz Rn, will recheck cbc 01/03 remains agitated, vitaly rn, no bleeding, cbc noted as well as id recs 01/04 on vent, with melena overnight, no bleeding, vitaly rn, labs reviewed Objective Objective Current Medications Medications (Trade) Dose Ordered Sig/Villa Route PRN Reason Start Time Stop Time Status Last Admin Dose Admin Acetaminophen (Tylenol) 650 mg Q6H PRN GT Temp >100.5 01/01/20 11:00 01/31/20 10:59 Albuterol/ Ipratropium (Albuterol/ Ipratropium) 3 ml Q4HRT PRN HHN Shortness of Breath 01/01/20 10:00 01/06/20 09:59 Albuterol/ Ipratropium (Albuterol/ Ipratropium) 3 ml Q6HRT HHN 01/01/20 01:00 01/06/20 00:59 01/05/20 06:56 Ascorbic Acid (Vitamin C) 500 mg DAILY ORAL 01/01/20 09:00 01/31/20 08:59 01/04/20 08:26 Ceftriaxone Sodium 1 gm/ Dextrose 55 ml @ 110 mls/hr Q24H IVPB 01/03/20 09:00 01/10/20 08:59 01/04/20 08:27 Clonazepam (KlonoPIN) 1 mg Q6H ORAL 12/31/19 21:00 01/07/20 20:59 01/05/20 02:31 Docusate Sodium (Colace) 100 mg DAILY ORAL 01/01/20 09:00 01/31/20 08:59 01/04/20 08:26 Gabapentin (Neurontin) 300 mg EVERY 8 HOURS ORAL 12/31/19 22:00 01/30/20 21:59 01/05/20 06:06 Haloperidol Lactate (Haldol) 5 mg Q6H PRN IM Agitation 01/01/20 23:30 02/15/20 23:29 Levetiracetam (Keppra) 1,000 mg DAILY ORAL 01/01/20 09:00 01/31/20 08:59 01/04/20 08:26 Levothyroxine Sodium (Synthroid) 75 mcg DAILY ORAL 01/01/20 09:00 01/31/20 08:59 01/04/20 08:26 Loperamide HCl (Imodium) 2 mg Q12HR PRN ORAL Diarrhea 12/31/19 21:15 01/30/20 21:14 Magnesium Hydroxide (Mom) 30 ml DAILY ORAL 01/01/20 09:00 01/31/20 08:59 01/04/20 08:27 Midodrine (Pro-Amatine) 10 mg THREE TIMES A DAY ORAL 01/02/20 13:27 04/01/20 13:26 01/04/20 17:32 Multivitamins Therapeutic (Therapeutic Multivitamin) 1 ea DAILY ORAL 01/01/20 09:00 01/31/20 08:59 01/04/20 08:42 Ondansetron HCl (Zofran) 4 mg Q6H PRN ORAL Nausea & Vomiting 12/31/19 21:00 01/30/20 20:59 Pantoprazole (Protonix) 40 mg EVERY 12 HOURS IVP 01/01/20 09:00 01/31/20 08:59 01/04/20 21:41 Rifaximin (Xifaxan) 550 mg TWICE A DAY ORAL 01/01/20 09:00 01/08/20 08:59 01/04/20 17:32 Thiamine HCl (Vitamin B1) 100 mg DAILY ORAL 01/01/20 09:00 01/31/20 08:59 01/04/20 08:26 Tramadol HCl (Ultram) 50 mg Q6H PRN ORAL For Pain (4-10) 12/31/19 21:15 01/07/20 20:59 Last 24 Hour Vital Signs Date Time Temp Pulse Resp B/P (MAP) Pulse Ox O2 Delivery O2 Flow Rate FiO2 01/05/20 08:00 30 01/05/20 08:00 72 01/05/20 08:00 98.3 70 17 81/53 (62) 99 01/05/20 07:10 59 12 100 30 60 12 01/05/20 04:35 85 20 30 01/05/20 04:00 81 8 04:00 98.0 81 20 104/73 (83) 97 01/05/20 04:00 30 01/05/20 03:46 Mechanical Ventilator 01/05/20 02:35 72 21 30 01/05/20 01:04 89 25 96 30 86 22 01/05/20 00:00 98.5 86 22 114/74 (87) 100 01/05/20 00:00 84 01/04/20 23:21 Mechanical Ventilator 01/04/20 23:06 99 20 30 01/04/20 21:26 65 22 30 01/04/20 20:13 68 23 30 01/04/20 20:00 98.3 76 24 107/61 (76) 97 01/04/20 20:00 30 01/04/20 20:00 Mechanical Ventilator 01/04/20 19:26 61 01/04/20 17:56 72 22 30 01/04/20 16:00 Mechanical Ventilator 01/04/20 16:00 30 01/04/20 16:00 63 01/04/20 16:00 97.7 78 24 105/70 (82) 99 01/04/20 14:51 65 22 30 01/04/20 12:49 70 22 30 01/04/20 12:00 97.7 46 24 101/63 (76) 100 01/04/20 12:00 30 01/04/20 12:00 52 01/04/20 12:00 Mechanical Ventilator 01/04/20 11:20 73 22 30 01/04/20 08:49 66 22 30 01/04/20 08:00 98.0 84 26 107/67 (80) 100 01/04/20 08:00 85 01/04/20 08:00 30 01/04/20 08:00 Mechanical Ventilator 01/04/20 07:10 82 22 30 01/04/20 05:00 71 24 30 01/04/20 04:00 68 01/04/20 04:00 30 01/04/20 04:00 98.0 74 22 141/75 (97) 100 01/04/20 04:00 Mechanical Ventilator 01/04/20 03:00 70 27 30 01/04/20 01:21 62 21 97 Mechanical Ventilator 30 57 15 30 01/04/20 00:00 56 8/20/20 00:00 Mechanical Ventilator 01/04/20 00:00 98.0 65 16 100/65 (77) 96 01/04/20 00:00 30 01/03/20 23:22 60 20 30 01/03/20 20:52 48 20 30 01/03/20 20:00 97.9 55 20 123/71 (88) 100 01/03/20 20:00 58 01/03/20 20:00 Mechanical Ventilator 01/03/20 20:00 30 01/03/20 18:55 50 20 100 Mechanical Ventilator 30 52 15 30 01/03/20 17:30 62 18 100 Mechanical Ventilator 30 62 15 30 01/03/20 16:00 97.2 46 18 103/62 (76) 98 01/03/20 16:00 Mechanical Ventilator 01/03/20 16:00 30 01/03/20 16:00 48 01/03/20 15:22 62 18 100 Mechanical Ventilator 30 62 15 30 01/03/20 12:47 48 16 100 Mechanical Ventilator 30 62 15 30 01/03/20 12:00 30 01/03/20 12:00 97.2 54 18 116/95 (102) 100 01/03/20 12:00 56 01/03/20 12:00 Mechanical Ventilator 01/03/20 10:30 53 14 100 Mechanical Ventilator 30 76 16 30 01/03/20 09:30 60 15 100 Mechanical Ventilator 30 76 16 30 Intake and Output 01/04/20 01/05/20 19:00 07:00 Intake Total 740 ml 355 ml Output Total 1000 ml 1000 ml Balance -260 ml -645 ml Intake Free Water 300 ml 300 ml Tube Feeding 440 ml 55 ml Output Urine Total 1000 ml 1000 ml # Bowel Movements 3 2 Labs Test 01/02/20 09:15 01/02/20 16:30 01/03/20 02:55 01/03/20 08:15 White Blood Count 16.1 K/UL (4.8-10.8) 16.2 K/UL (4.8-10.8) 16.8 K/UL (4.8-10.8) 13.6 K/UL (4.8-10.8) Red Blood Count 2.64 M/UL (4.20-5.40) 2.49 M/UL (4.20-5.40) 2.49 M/UL (4.20-5.40) 2.61 M/UL (4.20-5.40) Hemoglobin 7.9 G/DL (12.0-16.0) 7.7 G/DL (12.0-16.0) 7.7 G/DL (12.0-16.0) 7.9 G/DL (12.0-16.0) Hematocrit 24.6 % (37.0-47.0) 23.3 % (37.0-47.0) 23.3 % (37.0-47.0) 24.2 % (37.0-47.0) Mean Corpuscular Volume 93 FL (80-99) 94 FL (80-99) 93 FL (80-99) 93 FL (80- 99) Mean Corpuscular Hemoglobin 30.0 PG (27.0-31.0) 30.8 PG (27.0-31.0) 30.7 PG (27.0-31.0) 30.4 PG (27.0-31.0) Mean Corpuscular Hemoglobin Concent 32.3 G/DL (32.0-36.0) 32.9 G/DL (32.0-36.0) 32.9 G/DL (32.0-36.0) 32.8 G/DL (32.0-36.0) Red Cell Distribution Width 14.5 % (11.6-14.8) 15.2 % (11.6-14.8) 14.1 % (11.6-14.8) 13.9 % (11.6-14.8) Platelet Count 164 K/UL (150-450) 167 K/UL (150-450) 61 K/UL (150-450) 204 K/UL (150-450) Mean Platelet Volume 8.2 FL (6.5-10.1) 8.6 FL (6.5-10.1) 6.5 FL (6.5-10.1) 8.7 FL (6.5-10.1) Neutrophils (%) (Auto) % (45.0-75.0) 67.8 % (45.0-75.0) % (45.0-75.0) % (45.0-75.0) Lymphocytes (%) (Auto) % (20.0-45.0) 17.4 % (20.0-45.0) % (20.0-45.0) % (20.0-45.0) Monocytes (%) (Auto) % (1.0-10.0) 8.4 % (1.0-10.0) % (1.0-10.0) % (1.0-10.0) Eosinophils (%) (Auto) % (0.0-3.0) 5.9 % (0.0-3.0) % (0.0-3.0) % (0.0-3.0) Basophils (%) (Auto) % (0.0-2.0) 0.7 % (0.0-2.0) % (0.0-2.0) % (0.0-2.0) Differential Total Cells Counted 100 100 100 Neutrophils % (Manual) 73 % (45-75) 66 % (45-75) 70 % (45-75) Lymphocytes % (Manual) 14 % (20-45) 10 % (20-45) 13 % (20-45) Monocytes % (Manual) 6 % (1-10) 8 % (1-10) 8 % (1-10) Eosinophils % (Manual) 7 % (0-3) 15 % (0-3) 8 % (0-3) Basophils % (Manual) 0 % (0-2) 1 % (0-2) 1 % (0-2) Band Neutrophils 0 % (0-8) 0 % (0-8) 0 % (0-8) Platelet Estimate Adequate Decreased Adequate Platelet Morphology Normal Normal Normal Polychromasia 1+ Hypochromasia 1+ 1+ 1+ Anisocytosis 1+ Sodium Level 140 MMOL/L (136-145) Potassium Level 3.6 MMOL/L (3.5-5.1) Chloride Level 108 MMOL/L (98-107) Carbon Dioxide Level 24 MMOL/L (21-32) Anion Gap 9 mmol/L (5-15) Blood Urea Nitrogen 12 mg/dL (7-18) Creatinine 0.5 MG/DL (0.55-1.30) Estimat Glomerular Filtration Rate > 60 mL/min (>60) Glucose Level 72 MG/DL (74-106) Calcium Level 8.8 MG/DL (8.5-10.1) Phosphorus Level 2.8 MG/DL (2.5-4.9) Magnesium Level 1.6 MG/DL (1.8-2.4) Total Bilirubin 0.5 MG/DL (0.2-1.0) Aspartate Amino Transf (AST/SGOT) 86 U/L (15-37) Alanine Aminotransferase (ALT/SGPT) 138 U/L (12-78) Alkaline Phosphatase 138 U/L (46-116) Total Protein 5.5 G/DL (6.4-8.2) Albumin 2.4 G/DL (3.4-5.0) Globulin 3.1 g/dL Albumin/Globulin Ratio 0.8 (1.0-2.7) Test 01/03/20 10:17 01/04/20 03:30 Arterial Blood pH 7.405 (7.350-7.450) Arterial Blood Partial Pressure CO2 36.9 mmHg (35.0-45.0) Arterial Blood Partial Pressure O2 139.3 mmHg (75.0-100.0) Arterial Blood HCO3 22.6 mmol/L (22.0-26.0) Arterial Blood Oxygen Saturation 98.5 % (95-100) Arterial Blood Base Excess -1.9 (-2-2) Tacos Test Positive White Blood Count 14.2 K/UL (4.8-10.8) Red Blood Count 2.63 M/UL (4.20-5.40) Hemoglobin 8.1 G/DL (12.0-16.0) Hematocrit 24.4 % (37.0-47.0) Mean Corpuscular Volume 93 FL (80-99) Mean Corpuscular Hemoglobin 30.8 PG (27.0-31.0) Mean Corpuscular Hemoglobin Concent 33.1 G/DL (32.0-36.0) Red Cell Distribution Width 14.0 % (11.6-14.8) Platelet Count 227 K/UL (150-450) Mean Platelet Volume 8.0 FL (6.5-10.1) Neutrophils (%) (Auto) 67.2 % (45.0-75.0) Lymphocytes (%) (Auto) 14.9 % (20.0-45.0) Monocytes (%) (Auto) 8.0 % (1.0-10.0) Eosinophils (%) (Auto) 9.2 % (0.0-3.0) Basophils (%) (Auto) 0.6 % (0.0-2.0) Sodium Level 140 MMOL/L (136-145) Potassium Level 3.7 MMOL/L (3.5-5.1) Chloride Level 108 MMOL/L (98-107) Carbon Dioxide Level 28 MMOL/L (21-32) Anion Gap 4 mmol/L (5-15) Blood Urea Nitrogen 5 mg/dL (7-18) Creatinine 0.5 MG/DL (0.55-1.30) Estimat Glomerular Filtration Rate > 60 mL/min (>60) Glucose Level 92 MG/DL (74-106) Calcium Level 8.2 MG/DL (8.5-10.1) Magnesium Level 2.1 MG/DL (1.8-2.4) Total Bilirubin 0.2 MG/DL (0.2-1.0) Aspartate Amino Transf (AST/SGOT) 49 U/L (15-37) Alanine Aminotransferase (ALT/SGPT) 109 U/L (12-78) Alkaline Phosphatase 159 U/L (46-116) Total Protein 5.8 G/DL (6.4-8.2) Albumin 2.4 G/DL (3.4-5.0) Globulin 3.4 g/dL Albumin/Globulin Ratio 0.7 (1.0-2.7) Hepatitis A IgM Antibody Negative (Negative) Hepatitis B Surface Antigen Negative (Negative) Hepatitis B Core IgM Antibody Negative (Negative) Hepatitis C Antibody <0.1 s/co ratio Height (Feet): 5 Height (Inches): 1.00 Weight (Pounds): 85 Objective Vital Signs General Appearance: ++ cachectic, chronically ill HEENT: normocephalic, atraumatic ++ trach Resp: other -. vent Cardiovascular: regular rate, rhythm, no edema Gastrointestinal: gtube in place, without erythema Rectal: other - Hemoccult positive [place]: back normal, gait/station normal, non-tender Lymphatic: no adenopathy Baltazar Cortes MD Jan 05, 2020 08:47
[2020-01-05] MEDS: Pantoprazole Inj IVP SCH ×2 (09:18→21:32)
[2020-01-05] MEDS: Milk of Magnesia 30ml Ud ORAL SCH (09:18)
[2020-01-05] MEDS: cefTRIAXone 1gm/D5W 55ml IVPB SCH ×2 (09:18)
[2020-01-05] MEDS: Multivitamin w/Minerals tab ORAL SCH (09:19)
[2020-01-05] MEDS: Docusate 100mg cap ORAL SCH (09:19)
[2020-01-05] MEDS: Ascorbic Acid 500mg tab ORAL SCH (09:19)
[2020-01-05] MEDS: Midodrine 10mg tab ORAL SCH ×3 (09:19→17:45)
[2020-01-05] MEDS: Thiamine 100mg tab ORAL SCH (09:19)
[2020-01-05] MEDS ORDERED: Tubing IV Secondary IV ONE ×2 (10:06→11:40)
[2020-01-05] MEDS ORDERED: NS 275ml ONE ×2 (10:06→11:40)
--- NOTE | 2020-01-05 10:35 | Pulmonology Progress Note ---
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 01/05/20 1035: Subjective ROS Limited/Unobtainable: Yes Allergies: Coded Allergies: CARBAMAZEPINE (Verified Allergy, Unknown, 12/31/19) LORAZEPAM (Verified Allergy, Unknown, 12/31/19) All Systems: reviewed and negative except above Subjective CXR 01/01 no significant change ABG stable on SIMV mode more awake, eyes open, but poorly responsive s/p EGD 01/01 -> gastric ulcer across G tube site last Hgb 8.1 no CBC today Objective Last 24 Hour Vital Signs Date Time Temp Pulse Resp B/P (MAP) Pulse Ox O2 Delivery O2 Flow Rate FiO2 01/05/20 08:00 30 01/05/20 08:00 72 01/05/20 08:00 98.3 70 17 81/53 (62) 99 01/05/20 07:10 59 12 100 30 60 12 01/05/20 04:35 85 20 30 01/05/20 04:00 81 01/05/20 04:00 98.0 81 20 104/73 (83) 97 01/05/20 04:00 30 01/05/20 03:46 Mechanical Ventilator 01/05/20 02:35 72 21 30 01/05/20 01:04 89 25 96 30 86 22 01/05/20 00:00 98.5 86 22 114/74 (87) 100 01/05/20 00:00 84 01/04/20 23:21 Mechanical Ventilator 01/04/20 23:06 99 20 30 01/04/20 21:26 65 22 30 01/04/20 20:13 68 23 30 01/04/20 20:00 98.3 76 24 107/61 (76) 97 01/04/20 20:00 30 01/04/20 20:00 Mechanical Ventilator 01/04/20 19:26 61 01/04/20 17:56 72 22 30 01/04/20 16:00 Mechanical Ventilator 01/04/20 16:00 30 01/04/20 16:00 63 01/04/20 16:00 97.7 78 24 105/70 (82) 99 01/04/20 14:51 65 22 30 01/04/20 12:49 70 22 30 01/04/20 12:00 97.7 46 24 101/63 (76) 100 01/04/20 12:00 30 01/04/20 12:00 52 01/04/20 12:00 Mechanical Ventilator 01/04/20 11:20 73 22 30 Intake and Output 01/04/20 01/05/20 19:00 07:00 Intake Total 740 ml 355 ml Output Total 1000 ml 1000 ml Balance -260 ml -645 ml Intake Free Water 300 ml 300 ml Tube Feeding 440 ml 55 ml Output Urine Total 1000 ml 1000 ml # Bowel Movements 3 2 Objective General Appearance: bedridden, pale, chronically ill looking, older than her biological age ; vent dependent female ; on vent SIMV 450-30%-12, PEEP 5 Lines, tubes and drains: peripheral, trach HEENT: normocephalic, atraumatic Neck: trach - Portex #7, secretions small amount, yellow color, thick consistency Respiratory/Chest: few scattered rhonchi BL Cardiovascular/Chest: normal rate, regular rhythm Abdomen: non tender, soft, G tube Genitourinary/Rectal: [place] Extremities: no edema, muscle atrophy Neurologic: abnormal gait, poorly responsive, more awake , eyes open Musculoskeletal: atrophy Skin: maculopapular rash improving Microbiology Date/Time Source Procedure Growth Status 01/03/20 02:55 Blood Blood Culture - Preliminary NO GROWTH AFTER 48 HOURS Resulted 01/02/20 15:50 Blood Blood Culture - Preliminary NO GROWTH AFTER 48 HOURS Resulted Current Medications Medications (Trade) Dose Ordered Sig/Villa Route PRN Reason Start Time Stop Time Status Last Admin Dose Admin Acetaminophen (Tylenol) 650 mg Q6H PRN GT Temp >100.5 01/01/20 11:00 01/31/20 10:59 Albuterol/ Ipratropium (Albuterol/ Ipratropium) 3 ml Q4HRT PRN HHN Shortness of Breath 01/01/20 10:00 01/06/20 09:59 Albuterol/ Ipratropium (Albuterol/ Ipratropium) 3 ml Q6HRT HHN 01/01/20 01:00 01/06/20 00:59 01/05/20 06:56 Ascorbic Acid (Vitamin C) 500 mg DAILY ORAL 01/01/20 09:00 01/31/20 08:59 01/05/20 09:19 Ceftriaxone Sodium 1 gm/ Dextrose 55 ml @ 110 mls/hr Q24H IVPB 01/03/20 09:00 01/10/20 08:59 01/05/20 09:18 Clonazepam (KlonoPIN) 1 mg Q6H ORAL 12/31/19 21:00 01/07/20 20:59 01/05/20 09:19 Docusate Sodium (Colace) 100 mg DAILY ORAL 01/01/20 09:00 01/31/20 08:59 01/05/20 09:19 Gabapentin (Neurontin) 300 mg EVERY 8 HOURS ORAL 12/31/19 22:00 01/30/20 21:59 01/05/20 06:06 Haloperidol Lactate (Haldol) 5 mg Q6H PRN IM Agitation 01/01/20 23:30 02/15/20 23:29 Levetiracetam (Keppra) 1,000 mg DAILY ORAL 01/01/20 09:00 01/31/20 08:59 01/05/20 09:19 Levothyroxine Sodium (Synthroid) 75 mcg DAILY ORAL 01/01/20 09:00 01/31/20 08:59 01/05/20 09:19 Loperamide HCl (Imodium) 2 mg Q12HR PRN ORAL Diarrhea 12/31/19 21:15 01/30/20 21:14 Magnesium Hydroxide (Mom) 30 ml DAILY ORAL 01/01/20 09:00 01/31/20 08:59 01/05/20 09:18 Midodrine (Pro-Amatine) 10 mg THREE TIMES A DAY ORAL 01/02/20 13:27 04/01/20 13:26 01/05/20 09:19 Multivitamins Therapeutic (Therapeutic Multivitamin) 1 ea DAILY ORAL 01/01/20 09:00 01/31/20 08:59 01/05/20 09:19 Ondansetron HCl (Zofran) 4 mg Q6H PRN ORAL Nausea & Vomiting 12/31/19 21:00 01/30/20 20:59 Pantoprazole (Protonix) 40 mg EVERY 12 HOURS IVP 01/01/20 09:00 01/31/20 08:59 01/05/20 09:18 Rifaximin (Xifaxan) 550 mg TWICE A DAY ORAL 01/01/20 09:00 01/08/20 08:59 8/21/20 09:19 Thiamine HCl (Vitamin B1) 100 mg DAILY ORAL 01/01/20 09:00 01/31/20 08:59 01/05/20 09:19 Tramadol HCl (Ultram) 50 mg Q6H PRN ORAL For Pain (4-10) 12/31/19 21:15 01/07/20 20:59 Assessment/Plan Assessment/Plan ASSESSMENT VDRF/trach status Sepsis Possible pneumonia recurrent GI bleeding Anemia secondary to GI bleeding Aspiration risk Dysphagia, feeding by G-tube Chronic encephalopathy Acute kidney injury likely secondary to dehydration Electrolyte imbalance Severe protein calorie malnutrition Hypertension History of CVA Seizure disorder Psychiatric disorder Presumed scabies, s/p Rx Thrombocytopenia-transient- resolved PLAN OF CARE JULIANA vent support, pulm toilet ABG was stable on current settings, now on SIMV mode 450-30-12 PEEP5 , no signs of resp distress on these settings repeated ABG on SIMV 01/02 stable, keep settings as is and titrate as needed fup CXR no sign change from initial pulm toilet via HHN BCX 1/2 +CONS likely contaminant, off Vanco ; repeated BCX 01/01 and 01/02 NGTD SCX + Proteus , now on Ceftriaxone as per ID recs rapid COVID 19 NGT in ED aspiration precautions fup CXR in am Venous Duplex BLE -negative, get SCD ( unable to give a/c given anemia) closely monitor hemodynamic status Protonix IV q12 GT feeding PPI stool OB pending transfuse to keep Hgb > 7. heme and GI follows s/p EGD 01/01 -> gastric ulcer across G tube site , no active bleeding HH at baseline episode of GI bleeding this am- per nursing , may need colonoscopy trend LFT-> trending down, hep panel pending hx of cirrhosis- per GI management monitor renal parameters, lytes, avoid nephrotoxic BUN trending down, creat stable, likely prerenal due to dehydration replace e/lytes as per nephro recs monitor volumes seizure precautions, continue Keppra, trend LFT BP management with current regimen SNF meds supportive care dietary eval s/p 12/31 Rx for presumed scabies with permethrin and Ivermectin, ID recommends to repeat Ivermectin in 7 days 01/07 case discussed and evaluated by supervising physician Raul Esparza MD 01/05/20 1242: Subjective Allergies: Coded Allergies: CARBAMAZEPINE (Verified Allergy, Unknown, 12/31/19) LORAZEPAM (Verified Allergy, Unknown, 12/31/19) Assessment/Plan Assessment/Plan Patient seen and examined with RAIL DOWELING MACHINE OPERATOR. Agree with above A&P as it reflects our joint deliberations. Ivanna Mora NP Jan 05, 2020 10:35 Raul Esparza MD Jan 05, 2020 12:42
--- NOTE | 2020-01-05 11:36 | Surgery Progress Note ---
Surgery Progress Note Subjective Additional Comments leukocytosis h/h stable no n/v dressings going well Objective Last 24 Hour Vital Signs Date Time Temp Pulse Resp B/P (MAP) Pulse Ox O2 Delivery O2 Flow Rate FiO2 01/05/20 11:10 55 19 30 01/05/20 08:00 30 01/05/20 08:00 Mechanical Ventilator 01/05/20 08:00 72 01/05/20 08:00 98.3 70 17 81/53 (62) 99 01/05/20 07:10 59 12 100 30 60 12 01/05/20 04:35 85 20 30 01/05/20 04:00 81 01/05/20 04:00 98.0 81 20 104/73 (83) 97 01/05/20 04:00 30 01/05/20 03:46 Mechanical Ventilator 01/05/20 02:35 72 21 30 01/05/20 01:04 89 25 96 30 86 22 01/05/20 00:00 98.5 86 22 114/74 (87) 100 01/05/20 00:00 84 01/04/20 23:21 Mechanical Ventilator 01/04/20 23:06 99 20 30 01/04/20 21:26 65 22 30 01/04/20 20:13 68 23 30 01/04/20 20:00 98.3 76 24 107/61 (76) 97 01/04/20 20:00 30 01/04/20 20:00 Mechanical Ventilator 01/04/20 19:26 61 01/04/20 17:56 72 22 30 01/04/20 16:00 Mechanical Ventilator 01/04/20 16:00 30 01/04/20 16:00 63 01/04/20 16:00 97.7 78 24 105/70 (82) 99 01/04/20 14:51 65 22 30 01/04/20 12:49 70 22 30 01/04/20 12:00 97.7 46 24 101/63 (76) 100 01/04/20 12:00 30 01/04/20 12:00 52 01/04/20 12:00 Mechanical Ventilator I&O Intake and Output 01/04/20 01/05/20 19:00 07:00 Intake Total 740 ml 355 ml Output Total 1000 ml 1000 ml Balance -260 ml -645 ml Intake Free Water 300 ml 300 ml Tube Feeding 440 ml 55 ml Output Urine Total 1000 ml 1000 ml # Bowel Movements 3 2 Dressing: saturated Cardiovascular: RSR Respiratory: decreased breath sounds Abdomen: soft, non-tender, present bowel sounds Extremities: no edema, no tenderness, no cyanosis Plan Problems: (1) Pneumonia (2) Sepsis Assessment & Plan: leukocytosis anemia lactic acidosis agree with GI recommend EGD planned for 12/31 hold feeding for now trend h/h monitor for bleeding no acute hemorrhage will be available in event needs exploration for hemostasis prbc as per heme thank you will follow with recs Pt presented on admission in emaciated state. Pt has tracheostomy and GT. NO skin concerns noted to skin under collar of trach. NO erythema or evidence of skin erosion at GT site. Pt noted to have scaly pimple-like rash with webbing noted to R and L axillae, undersides of both breasts, Bilat groin and lower back. Tracking and webbing noted to hands and feet. Pt restless and scratching at skin. Non-Blanching erythema without induration or fluctuance noted to R and L hips and trochanteric areas.Non-blanching erythema noted along spine. Non-Blanching erythema without induration noted to Sacrum. Non-Blanching erythema noted to R and L Malleoli and both heels. Tx.Plan: Please apply Cavilon Skin Barrier to each bony Prominences at risks for Skin Breakdown. Cover each area with Optifoam drsgs. Change every 7 days and prn. Apply Moisture Barrier Paste to Sacrum. Cover with Optifoam drsg. Change every 3 days and prn. Reposition at least every 2hours or as tolerated. Off-load heels with pillow. APM/EMELI Mattress overlay. (3) GI bleed (4) G tube feedings Assessment & Plan: DAILY ESTIMATED NEEDS: Needs based on Underweight, critical care 37.3kg 30-40 kcals/kg 8024-6201 total kcals 1.25-2 g protein/kg 47-75 g total protein 25-35 mL/kg 933-1306 total fluid mLs NUTRITION DIAGNOSIS: Increased kcal and pro needs r/t underweight status as evidenced by BMI 14.1, pt is 68% of ideal body weight w/ generalized severe wasting, trach and peg dep. CURRENT TF: Now NPO- pending EGD ENTERAL NUTRITION RECOMMENDATIONS: As able, rec JEVITY 1.2 w/ goal of 50ml/hr x22 hrs to provide 1100ml, 1320 kcal, 61g pro, 888ml free H2O - As medically able, rec to start feeds of Jevity 1.2 @30ml/hr for 6 hrs. Advance as tolerated 10ml/hr q4-6 hrs to goal of 50ml/hr. - HOLD 1HR BEFORE AND AFTER SYNTHROID MEDS - Flush per . HOB over 30 degrees ------- ADDITIONAL RECOMMENDATIONS: 1) Per SNF: 5'4" and 81# Maintain calibrated bed scale wts w/ added P200 mattress 2) Lytes daily, replete as needed (low K, phos) 3) Skin integrity: add BRIAN VIA GT BID, continue Vit C 4) TF recs as above as medically able George Woods Jan 05, 2020 11:36
[2020-01-05] MEDS ORDERED: NS 500ML ONE (11:40)
--- NOTE | 2020-01-05 12:28 | General Progress Note ---
Assessment/Plan Problem List: (1) G tube feedings ICD Codes: Z93.1 - Gastrostomy status SNOMED: 866045405, 678360918, 999663634 (2) GI bleed ICD Codes: K92.2 - Gastrointestinal hemorrhage, unspecified SNOMED: 17100894 (3) Sepsis ICD Codes: A41.9 - Sepsis, unspecified organism SNOMED: 29141115 (4) Pneumonia ICD Codes: J18.9 - Pneumonia, unspecified organism SNOMED: 904060237 Assessment/Plan: s/p EGD gastric ulcer no recurrent bleed G TF monitor H&H ppi Subjective ROS Limited/Unobtainable: No Allergies: Coded Allergies: CARBAMAZEPINE (Verified Allergy, Unknown, 12/31/19) LORAZEPAM (Verified Allergy, Unknown, 12/31/19) Objective Last 24 Hour Vital Signs Date Time Temp Pulse Resp B/P (MAP) Pulse Ox O2 Delivery O2 Flow Rate FiO2 01/05/20 12:00 98.7 60 19 112/57 (75) 94 01/05/20 12:00 30 01/05/20 12:00 Mechanical Ventilator 01/05/20 11:10 55 19 30 01/05/20 08:01 98.3 70 17 85/54 (64) 97 01/05/20 08:00 30 01/05/20 08:00 Mechanical Ventilator 01/05/20 08:00 72 01/05/20 07:10 59 12 100 30 60 12 01/05/20 04:35 85 20 30 01/05/20 04:00 81 01/05/20 04:00 98.0 81 20 104/73 (83) 97 01/05/20 04:00 30 01/05/20 03:46 Mechanical Ventilator 01/05/20 02:35 72 21 30 01/05/20 01:04 89 25 96 30 86 22 01/05/20 00:00 98.5 86 22 114/74 (87) 100 01/05/20 00:00 84 01/04/20 23:21 Mechanical Ventilator 01/04/20 23:06 99 20 30 01/04/20 21:26 65 22 30 01/04/20 20:13 68 23 30 01/04/20 20:00 98.3 76 24 107/61 (76) 97 01/04/20 20:00 30 01/04/20 20:00 Mechanical Ventilator 01/04/20 19:26 61 01/04/20 17:56 72 22 30 01/04/20 16:00 Mechanical Ventilator 01/04/20 16:00 30 01/04/20 16:00 63 01/04/20 16:00 97.7 78 24 105/70 (82) 99 01/04/20 14:51 65 22 30 01/04/20 12:49 70 22 30 Intake and Output 01/04/20 01/05/20 19:00 07:00 Intake Total 740 ml 355 ml Output Total 1000 ml 1000 ml Balance -260 ml -645 ml Intake Free Water 300 ml 300 ml Tube Feeding 440 ml 55 ml Output Urine Total 1000 ml 1000 ml # Bowel Movements 3 2 Height (Feet): 5 Height (Inches): 1.00 Weight (Pounds): 85 General Appearance: no apparent distress EENT: normal ENT inspection Neck: supple Cardiovascular: normal rate Respiratory/Chest: decreased breath sounds Abdomen: hypoactive bowel sounds Extremities: non-tender Satish Carrillo MD Jan 05, 2020 12:28
--- NOTE | 2020-01-05 13:06 | Nephrology Progress Note ---
Assessment/Plan Problem List: (1) RICHARD (acute kidney injury) (2) Dehydration (3) Anemia (4) GI bleed (5) Malnutrition (6) Seizure disorder (7) Electrolyte imbalance Assessment Renal failure, in the form of prerenal azotemia, most likely secondary to GI bleed GI bleed, leading to severe anemia Sepsis, pneumonia Chronic tracheostomy, ventilator dependent History of CVA History of seizure disorder History of psychiatric disorder Severe malnutrition Electrolyte abnormalities Plan January 04: No labs drawn today. Will check labs tomorrow. Continue per consultants. January 03: Lab reviewed. Renal parameters stable. IV fluid discontinued. High LFTs declining. Continue same. January 02: Lab reviewed. Renal parameters stable. Continue per PMD and consultants. LFTs remain elevated. Continue to monitor. Continue slow hydration Discontinue blood pressure medications as her blood pressure is low Discontinue diuretics Monitor renal parameters Transfusion as needed GI evaluation Correct electrolyte abnormalities Check B12 level, folate, and thyroid function tests: Results noted Subjective ROS Limited/Unobtainable: Yes Objective Objective Last 24 Hour Vital Signs Date Time Temp Pulse Resp B/P (MAP) Pulse Ox O2 Delivery O2 Flow Rate FiO2 01/05/20 12:00 98.7 60 19 112/57 (75) 94 01/05/20 12:00 30 01/05/20 12:00 Mechanical Ventilator 01/05/20 11:10 55 19 30 01/05/20 08:01 98.3 70 17 85/54 (64) 97 01/05/20 08:00 30 01/05/20 08:00 Mechanical Ventilator 01/05/20 08:00 72 01/05/20 07:10 59 12 100 30 60 12 01/05/20 04:35 85 20 30 01/05/20 04:00 81 01/05/20 04:00 98.0 81 20 104/73 (83) 97 01/05/20 04:00 30 01/05/20 03:46 Mechanical Ventilator 01/05/20 02:35 72 21 30 01/05/20 01:04 89 25 96 30 86 22 01/05/20 00:00 98.5 86 22 114/74 (87) 100 01/05/20 00:00 84 01/04/20 23:21 Mechanical Ventilator 01/04/20 23:06 99 20 30 01/04/20 21:26 65 22 30 01/04/20 20:13 68 23 30 01/04/20 20:00 98.3 76 24 107/61 (76) 97 01/04/20 20:00 30 01/04/20 20:00 Mechanical Ventilator 01/04/20 19:26 61 01/04/20 17:56 72 22 30 01/04/20 16:00 Mechanical Ventilator 01/04/20 16:00 30 01/04/20 16:00 63 01/04/20 16:00 97.7 78 24 105/70 (82) 99 01/04/20 14:51 65 22 30 Intake and Output 01/04/20 01/05/20 19:00 07:00 Intake Total 740 ml 355 ml Output Total 1000 ml 1000 ml Balance -260 ml -645 ml Intake Free Water 300 ml 300 ml Tube Feeding 440 ml 55 ml Output Urine Total 1000 ml 1000 ml # Bowel Movements 3 2 No labs drawn today Height (Feet): 5 Height (Inches): 1.00 Weight (Pounds): 85 General Appearance: no apparent distress, lethargic EENT: other - Trach and vent Cardiovascular: normal rate Respiratory/Chest: decreased breath sounds Abdomen: other - PEG Chivo Holloway MD Jan 05, 2020 13:06
--- NOTE | 2020-01-05 23:21 | Psych Consult Progress Note ---
Psychiatry Progress Note Psychiatry Progress Note Subjective the pt cont to benefits from restraints she is more alert and has episodes of agitation the pt attempts to pull out lines. Medications Current Medications Medications (Trade) Dose Ordered Sig/Villa Route PRN Reason Start Time Stop Time Status Last Admin Dose Admin Acetaminophen (Tylenol) 650 mg Q6H PRN GT Temp >100.5 01/01/20 11:00 01/31/20 10:59 Albuterol/ Ipratropium (Albuterol/ Ipratropium) 3 ml Q4HRT PRN HHN Shortness of Breath 01/01/20 10:00 01/06/20 09:59 Albuterol/ Ipratropium (Albuterol/ Ipratropium) 3 ml Q6HRT HHN 01/01/20 01:00 01/06/20 00:59 01/05/20 19:50 Ascorbic Acid (Vitamin C) 500 mg DAILY ORAL 01/01/20 09:00 01/31/20 08:59 01/05/20 09:19 Ceftriaxone Sodium 1 gm/ Dextrose 55 ml @ 110 mls/hr Q24H IVPB 01/03/20 09:00 01/10/20 08:59 01/05/20 09:18 Clonazepam (KlonoPIN) 1 mg Q6H ORAL 12/31/19 21:00 01/07/20 20:59 01/05/20 21:32 Docusate Sodium (Colace) 100 mg DAILY ORAL 01/01/20 09:00 01/31/20 08:59 01/05/20 09:19 Gabapentin (Neurontin) 300 mg EVERY 8 HOURS ORAL 12/31/19 22:00 01/30/20 21:59 01/05/20 21:32 Haloperidol Lactate (Haldol) 5 mg Q6H PRN IM Agitation 01/01/20 23:30 02/15/20 23:29 Levetiracetam (Keppra) 1,000 mg DAILY ORAL 01/01/20 09:00 01/31/20 08:59 01/05/20 09:19 Levothyroxine Sodium (Synthroid) 75 mcg DAILY ORAL 01/01/20 09:00 01/31/20 08:59 01/05/20 09:19 Loperamide HCl (Imodium) 2 mg Q12HR PRN ORAL Diarrhea 12/31/19 21:15 01/30/20 21:14 Magnesium Hydroxide (Mom) 30 ml DAILY ORAL 01/01/20 09:00 01/31/20 08:59 01/05/20 09:18 Midodrine (Pro-Amatine) 10 mg THREE TIMES A DAY ORAL 01/02/20 13:27 04/01/20 13:26 01/05/20 17:45 Multivitamins Therapeutic (Therapeutic Multivitamin) 1 ea DAILY ORAL 01/01/20 09:00 01/31/20 08:59 01/05/20 09:19 Ondansetron HCl (Zofran) 4 mg Q6H PRN ORAL Nausea & Vomiting 12/31/19 21:00 01/30/20 20:59 Pantoprazole (Protonix) 40 mg EVERY 12 HOURS IVP 01/01/20 09:00 01/31/20 08:59 01/05/20 21:32 Rifaximin (Xifaxan) 550 mg TWICE A DAY ORAL 01/01/20 09:00 01/08/20 08:59 01/05/20 17:45 Thiamine HCl (Vitamin B1) 100 mg DAILY ORAL 01/01/20 09:00 01/31/20 08:59 01/05/20 09:19 Tramadol HCl (Ultram) 50 mg Q6H PRN ORAL For Pain (4-10) 12/31/19 21:15 01/07/20 20:59 Neurological/Psychiatric: Denies: no symptoms, anxiety, depressed, emotional problems, headache, numbness, paresthesia, pre-existing deficit, seizure, tingling, tremors, weakness, other Allergies: Coded Allergies: CARBAMAZEPINE (Verified Allergy, Unknown, 12/31/19) LORAZEPAM (Verified Allergy, Unknown, 12/31/19) Objective Data Height (Feet): 5 Height (Inches): 1.00 Weight (Pounds): 85 General Appearance: no apparent distress, confused, cachetic Additional Comments: waxing and waning consciousness. Affect is flat. Thought process, there is a paucity of thought content. Thought content, no suicidal or homicidal ideation. Cognition is impaired. Insight and judgment is impaired. Rhonda Maxwell MD Jan 05, 2020 23:21
[2020-01-06] VITALS: BP 97/54
[2020-01-06 04:00] VITALS: BP 131/83
--- NOTE | 2020-01-06 06:48 | General Progress Note ---
Assessment/Plan Problem List: (1) G tube feedings ICD Codes: Z93.1 - Gastrostomy status SNOMED: 192619840, 665304015, 745409444 (2) GI bleed ICD Codes: K92.2 - Gastrointestinal hemorrhage, unspecified SNOMED: 75303085 (3) Sepsis ICD Codes: A41.9 - Sepsis, unspecified organism SNOMED: 34043881 (4) Pneumonia ICD Codes: J18.9 - Pneumonia, unspecified organism SNOMED: 559568964 Assessment/Plan: s/p EGD gastric ulcer no recurrent bleed G TF monitor H&H ppi Subjective ROS Limited/Unobtainable: No Allergies: Coded Allergies: CARBAMAZEPINE (Verified Allergy, Unknown, 12/31/19) LORAZEPAM (Verified Allergy, Unknown, 12/31/19) Objective Last 24 Hour Vital Signs Date Time Temp Pulse Resp B/P (MAP) Pulse Ox O2 Delivery O2 Flow Rate FiO2 01/06/20 04:00 30 01/06/20 04:00 Mechanical Ventilator 01/06/20 03:20 54 14 30 01/06/20 00:00 97.2 48 15 97/54 (68) 100 01/06/20 00:00 30 01/06/20 00:00 Mechanical Ventilator 01/05/20 23:33 48 01/05/20 23:00 49 18 30 01/05/20 20:00 Mechanical Ventilator 01/05/20 20:00 98.1 67 16 94/68 (77) 99 01/05/20 19:27 58 01/05/20 19:00 55 16 100 Mechanical Ventilator 30 58 16 30 01/05/20 16:00 98.6 96 21 107/65 (79) 94 01/05/20 16:00 Mechanical Ventilator 01/05/20 16:00 64 01/05/20 16:00 30 01/05/20 15:30 63 20 30 01/05/20 12:00 98.7 60 19 112/57 (75) 94 01/05/20 12:00 30 01/05/20 12:00 Mechanical Ventilator 01/05/20 11:29 60 01/05/20 11:10 55 19 30 01/05/20 08:01 98.3 70 17 85/54 (64) 97 01/05/20 08:00 30 01/05/20 08:00 Mechanical Ventilator 01/05/20 08:00 72 01/05/20 07:10 59 12 100 30 60 12 Intake and Output 01/05/20 01/06/20 19:00 07:00 Intake Total 1220 ml 750 ml Output Total 1301 ml 1300 ml Balance -81 ml -550 ml Intake Free Water 200 ml 200 ml Tube Feeding 660 ml 550 ml Other 360 ml Output Urine Total 1300 ml 1300 ml Stool Total 1 ml # Bowel Movements 1 Height (Feet): 5 Height (Inches): 1.00 Weight (Pounds): 82 General Appearance: no apparent distress EENT: normal ENT inspection Neck: normal alignment Cardiovascular: normal rate Respiratory/Chest: decreased breath sounds Abdomen: normal bowel sounds, non tender, soft Extremities: non-tender Satish Carrillo MD Jan 06, 2020 06:48
[2020-01-06 07:47] LABS: BASOPHILS % (AUTO) 0.6 % (0.0-2.0); EOSINOPHILS % (AUTO) 15.2 % (0.0-3.0); HEMATOCRIT 25.2 % (37.0-47.0); HEMOGLOBIN 8.2 G/DL (12.0-16.0); LYMPHOCYTES % (AUTO) 21.4 % (20.0-45.0); MEAN CORPUSCULAR VOLUME 96 FL (80-99); NEUTROPHILS % (AUTO) 55.8 % (45.0-75.0); PLATELET COUNT 242 K/UL (150-450); RED BLOOD COUNT 2.62 M/UL (4.20-5.40); RED CELL DISTRIBUTION WIDTH 17.3 % (11.6-14.8); WHITE BLOOD COUNT 11.4 K/UL (4.8-10.8)
[2020-01-06 08:00] VITALS: BP 86/48
[2020-01-06 08:10] LABS: ALANINE AMINOTRANSFERASE 68 U/L (12-78); ALBUMIN 2.4 G/DL (3.4-5.0); ALBUMIN/GLOBULIN RATIO 0.7 (1.0-2.7); ALKALINE PHOSPHATASE 125 U/L (46-116); ANION GAP 4 mmol/L (5-15); ASPARTATE AMINO TRANSFERASE 31 U/L (15-37); BILIRUBIN,TOTAL 0.2 MG/DL (0.2-1.0); BLOOD UREA NITROGEN 9 mg/dL (7-18); CALCIUM 8.9 MG/DL (8.5-10.1); CARBON DIOXIDE 32 MMOL/L (21-32); CHLORIDE 109 MMOL/L (98-107); CREATININE 0.4 MG/DL (0.55-1.30); GAMMA GLUTAMYL TRANSPEPTIDASE 103 U/L (5-85); PHOSPHORUS 2.6 MG/DL (2.5-4.9); POTASSIUM 3.8 MMOL/L (3.5-5.1); SODIUM 145 MMOL/L (136-145)
--- NOTE | 2020-01-06 08:22 | Pulmonology Progress Note ---
Subjective ROS Limited/Unobtainable: No Allergies: Coded Allergies: CARBAMAZEPINE (Verified Allergy, Unknown, 12/31/19) LORAZEPAM (Verified Allergy, Unknown, 12/31/19) All Systems: reviewed and negative except above Subjective CXR 01/01 no significant change ABG stable on SIMV mode more awake, eyes open, but poorly responsive leukocytosis trending down, afebrile s/p EGD 01/01 -> gastric ulcer across G tube site last Hgb 8.2 Objective Last 24 Hour Vital Signs Date Time Temp Pulse Resp B/P (MAP) Pulse Ox O2 Delivery O2 Flow Rate FiO2 01/06/20 07:07 47 12 30 01/06/20 04:00 30 01/06/20 04:00 72 01/06/20 04:00 97.2 74 21 131/83 (99) 100 01/06/20 04:00 Mechanical Ventilator 01/06/20 03:20 54 14 30 01/06/20 00:00 97.2 48 15 97/54 (68) 100 01/06/20 00:00 30 01/06/20 00:00 Mechanical Ventilator 01/05/20 23:33 48 01/05/20 23:00 49 18 30 01/05/20 20:00 Mechanical Ventilator 01/05/20 20:00 98.1 67 16 94/68 (77) 99 01/05/20 19:27 58 01/05/20 19:00 55 16 100 Mechanical Ventilator 30 58 16 30 01/05/20 16:00 98.6 96 21 107/65 (79) 94 01/05/20 16:00 Mechanical Ventilator 01/05/20 16:00 64 01/05/20 16:00 30 01/05/20 15:30 63 20 30 01/05/20 12:00 98.7 60 19 112/57 (75) 94 01/05/20 12:00 30 01/05/20 12:00 Mechanical Ventilator 01/05/20 11:29 60 01/05/20 11:10 55 19 30 Intake and Output 01/05/20 01/06/20 19:00 07:00 Intake Total 1220 ml 805 ml Output Total 1301 ml 1300 ml Balance -81 ml -495 ml Intake Free Water 200 ml 200 ml Tube Feeding 660 ml 605 ml Other 360 ml Output Urine Total 1300 ml 1300 ml Stool Total 1 ml # Bowel Movements 1 Objective General Appearance: bedridden, pale, chronically ill looking, older than her biological age ; vent dependent female ; on vent SIMV 450-30%-12, PEEP 5 Lines, tubes and drains: peripheral, trach HEENT: normocephalic, atraumatic Neck: trach - Portex #7, secretions small amount, yellow color, thick consistency Respiratory/Chest: few scattered rhonchi BL Cardiovascular/Chest: normal rate, regular rhythm Abdomen: non tender, soft, G tube Genitourinary/Rectal: [place] Extremities: no edema, muscle atrophy Neurologic: abnormal gait, poorly responsive, more awake , eyes open Musculoskeletal: atrophy Skin: maculopapular rash improving Laboratory Tests 01/06/20 05:45: Sodium Level 145, Potassium Level 3.8, Chloride Level 109H, Carbon Dioxide Level 32, Anion Gap 4L, Blood Urea Nitrogen 9, Creatinine 0.4L, Estimat Glomerular Filtration Rate > 60, Glucose Level 81, Calcium Level 8.9, Phosphorus Level 2.6, Magnesium Level 1.9, Total Bilirubin 0.2, Gamma Glutamyl Transpeptidase 103H, Aspartate Amino Transf (AST/SGOT) 31, Alanine Aminotransferase (ALT/SGPT) 68, Alkaline Phosphatase 125H, C-Reactive Protein, Quantitative < 0.4, Pro-B-Type Natriuretic Peptide 893H, Total Protein 6.0L, Albumin 2.4L, Globulin 3.6, Albumin/Globulin Ratio 0.7L 01/06/20 06:30: White Blood Count 11.4H, Red Blood Count 2.62L, Hemoglobin 8.2L, Hematocrit 25.2L, Mean Corpuscular Volume 96, Mean Corpuscular Hemoglobin 31.5H, Mean Corpuscular Hemoglobin Concent 32.7, Red Cell Distribution Width 17.3H, Platelet Count 242, Mean Platelet Volume 7.6, Neutrophils (%) (Auto) 55.8, Lymphocytes (%) (Auto) 21.4, Monocytes (%) (Auto) 7.0, Eosinophils (%) (Auto) 15.2H, Basophils (%) (Auto) 0.6 Current Medications Medications (Trade) Dose Ordered Sig/Villa Route PRN Reason Start Time Stop Time Status Last Admin Dose Admin Acetaminophen (Tylenol) 650 mg Q6H PRN GT Temp >100.5 01/01/20 11:00 01/31/20 10:59 Albuterol/ Ipratropium (Albuterol/ Ipratropium) 3 ml Q4HRT PRN HHN Shortness of Breath 01/01/20 10:00 01/06/20 09:59 Ascorbic Acid (Vitamin C) 500 mg DAILY ORAL 01/01/20 09:00 01/31/20 08:59 01/05/20 09:19 Ceftriaxone Sodium 1 gm/ Dextrose 55 ml @ 110 mls/hr Q24H IVPB 01/03/20 09:00 01/10/20 08:59 01/05/20 09:18 Clonazepam (KlonoPIN) 1 mg Q6H ORAL 12/31/19 21:00 01/07/20 20:59 01/06/20 02:50 Docusate Sodium (Colace) 100 mg DAILY ORAL 01/01/20 09:00 01/31/20 08:59 01/05/20 09:19 Gabapentin (Neurontin) 300 mg EVERY 8 HOURS ORAL 12/31/19 22:00 01/30/20 21:59 01/06/20 05:44 Haloperidol Lactate (Haldol) 5 mg Q6H PRN IM Agitation 01/01/20 23:30 02/15/20 23:29 Levetiracetam (Keppra) 1,000 mg DAILY ORAL 01/01/20 09:00 01/31/20 08:59 01/05/20 09:19 Levothyroxine Sodium (Synthroid) 75 mcg DAILY ORAL 01/01/20 09:00 01/31/20 08:59 01/05/20 09:19 Loperamide HCl (Imodium) 2 mg Q12HR PRN ORAL Diarrhea 12/31/19 21:15 01/30/20 21:14 Magnesium Hydroxide (Mom) 30 ml DAILY ORAL 01/01/20 09:00 01/31/20 08:59 01/05/20 09:18 Midodrine (Pro-Amatine) 10 mg THREE TIMES A DAY ORAL 01/02/20 13:27 04/01/20 13:26 01/05/20 17:45 Multivitamins Therapeutic (Therapeutic Multivitamin) 1 ea DAILY ORAL 01/01/20 09:00 01/31/20 08:59 01/05/20 09:19 Ondansetron HCl (Zofran) 4 mg Q6H PRN ORAL Nausea & Vomiting 12/31/19 21:00 01/30/20 20:59 Pantoprazole (Protonix) 40 mg EVERY 12 HOURS IVP 01/01/20 09:00 01/31/20 08:59 01/05/20 21:32 Rifaximin (Xifaxan) 550 mg TWICE A DAY ORAL 01/01/20 09:00 01/08/20 08:59 01/05/20 17:45 Thiamine HCl (Vitamin B1) 100 mg DAILY ORAL 01/01/20 09:00 01/31/20 08:59 01/05/20 09:19 Tramadol HCl (Ultram) 50 mg Q6H PRN ORAL For Pain (4-10) 12/31/19 21:15 01/07/20 20:59 Assessment/Plan Assessment/Plan ASSESSMENT VDRF/trach status Sepsis Possible pneumonia recurrent GI bleeding Anemia secondary to GI bleeding Aspiration risk Dysphagia, feeding by G-tube Chronic encephalopathy Acute kidney injury likely secondary to dehydration Electrolyte imbalance Severe protein calorie malnutrition Hypertension History of CVA Seizure disorder Psychiatric disorder Presumed scabies, s/p Rx Thrombocytopenia-transient- resolved PLAN OF CARE JULIANA vent support, pulm toilet ABG stable on current settings, on SIMV mode 450-30-12 PEEP5 , no signs of resp distress on these settings keep settings as is and titrate as needed fup CXR no sign change from initial pulm toilet via HHN BCX 1/2 +CONS likely contaminant, off Vanco ; repeated BCX 01/01 and 01/02 NGTD SCX + Proteus , now on Ceftriaxone as per ID recs rapid COVID 19 NGT in ED aspiration precautions fup CXR Venous Duplex BLE -negative, get SCD ( unable to give a/c given anemia) closely monitor hemodynamic status Protonix IV q12 GT feeding PPI stool OB pending transfuse to keep Hgb > 7. heme and GI follows s/p EGD 01/01 -> gastric ulcer across G tube site , no active bleeding HH at baseline monitor for any furtehr episodes of Gi bleeding trend LFT-> trending down, hep panel NGT hx of cirrhosis- per GI management monitor renal parameters, lytes, avoid nephrotoxic BUN trending down, creat stable, likely prerenal due to dehydration replace e/lytes as per nephro recs monitor volumes seizure precautions, continue Keppra, trend LFT BP management with current regimen SNF meds supportive care dietary eval s/p 12/31 Rx for presumed scabies with permethrin and Ivermectin, ID recommends to repeat Ivermectin in 7 days 01/07 case discussed and evaluated by supervising physician Ivanna Mora NP Jan 06, 2020 08:22
[2020-01-06] MEDS ORDERED: NS 275ml ONE (08:29)
[2020-01-06] MEDS ORDERED: Tubing IV Secondary IV ONE (08:29)
--- NOTE | 2020-01-06 09:27 | Diagnostic Imaging Report ---
EXAM: XR Chest, 1 View CLINICAL HISTORY: SOB TECHNIQUE: Frontal view of the chest. COMPARISON: Chest x-ray 01/02/20 FINDINGS: Lungs: Stable mild interstitial prominence. No focal infiltrate or consolidation. Pleural space: Unremarkable. No pneumothorax. Heart: Unremarkable. No cardiomegaly. Mediastinum: Unremarkable. Bones/joints: Unremarkable. Tubes, lines and devices: Stable tracheostomy tube. IMPRESSION: No significant interval change.
--- NOTE | 2020-01-06 09:40 | Surgery Progress Note ---
Surgery Progress Note Subjective Symptoms: improved Objective Last 24 Hour Vital Signs Date Time Temp Pulse Resp B/P (MAP) Pulse Ox O2 Delivery O2 Flow Rate FiO2 01/06/20 09:06 99 01/06/20 08:58 49 12 30 01/06/20 07:07 47 12 30 01/06/20 04:00 30 01/06/20 04:00 72 01/06/20 04:00 97.2 74 21 131/83 (99) 100 01/06/20 04:00 Mechanical Ventilator 01/06/20 03:20 54 14 30 01/06/20 00:00 97.2 48 15 97/54 (68) 100 01/06/20 00:00 30 01/06/20 00:00 Mechanical Ventilator 01/05/20 23:33 48 01/05/20 23:00 49 18 30 01/05/20 20:00 Mechanical Ventilator 01/05/20 20:00 98.1 67 16 94/68 (77) 99 01/05/20 19:27 58 01/05/20 19:00 55 16 100 Mechanical Ventilator 30 58 16 30 01/05/20 16:00 98.6 96 21 107/65 (79) 94 01/05/20 16:00 Mechanical Ventilator 01/05/20 16:00 64 01/05/20 16:00 30 01/05/20 15:30 63 20 30 01/05/20 12:00 98.7 60 19 112/57 (75) 94 01/05/20 12:00 30 01/05/20 12:00 Mechanical Ventilator 01/05/20 11:29 60 01/05/20 11:10 55 19 30 I&O Intake and Output 01/05/20 01/06/20 19:00 07:00 Intake Total 1220 ml 805 ml Output Total 1301 ml 1300 ml Balance -81 ml -495 ml Intake Free Water 200 ml 200 ml Tube Feeding 660 ml 605 ml Other 360 ml Output Urine Total 1300 ml 1300 ml Stool Total 1 ml # Bowel Movements 1 Dressing: other Wound: other Cardiovascular: RSR Respiratory: decreased breath sounds Abdomen: soft, non-tender, present bowel sounds Extremities: no cyanosis Laboratory Tests Test 01/06/20 05:45 01/06/20 06:30 Sodium Level 145 MMOL/L (136-145) Potassium Level 3.8 MMOL/L (3.5-5.1) Chloride Level 109 MMOL/L (98-107) H Carbon Dioxide Level 32 MMOL/L (21-32) Anion Gap 4 mmol/L (5-15) L Blood Urea Nitrogen 9 mg/dL (7-18) Creatinine 0.4 MG/DL (0.55-1.30) L Estimat Glomerular Filtration Rate > 60 mL/min (>60) Glucose Level 81 MG/DL (74-106) Calcium Level 8.9 MG/DL (8.5-10.1) Phosphorus Level 2.6 MG/DL (2.5-4.9) Magnesium Level 1.9 MG/DL (1.8-2.4) Total Bilirubin 0.2 MG/DL (0.2-1.0) Gamma Glutamyl Transpeptidase 103 U/L (5-85) H Aspartate Amino Transf (AST/SGOT) 31 U/L (15-37) Alanine Aminotransferase (ALT/SGPT) 68 U/L (12-78) Alkaline Phosphatase 125 U/L (46-116) H C-Reactive Protein, Quantitative < 0.4 mg/dL (0.00-0.90) Pro-B-Type Natriuretic Peptide 893 pg/mL (0-125) H Total Protein 6.0 G/DL (6.4-8.2) L Albumin 2.4 G/DL (3.4-5.0) L Globulin 3.6 g/dL Albumin/Globulin Ratio 0.7 (1.0-2.7) L White Blood Count 11.4 K/UL (4.8-10.8) H Red Blood Count 2.62 M/UL (4.20-5.40) L Hemoglobin 8.2 G/DL (12.0-16.0) L Hematocrit 25.2 % (37.0-47.0) L Mean Corpuscular Volume 96 FL (80-99) Mean Corpuscular Hemoglobin 31.5 PG (27.0-31.0) H Mean Corpuscular Hemoglobin Concent 32.7 G/DL (32.0-36.0) Red Cell Distribution Width 17.3 % (11.6-14.8) H Platelet Count 242 K/UL (150-450) Mean Platelet Volume 7.6 FL (6.5-10.1) Neutrophils (%) (Auto) 55.8 % (45.0-75.0) Lymphocytes (%) (Auto) 21.4 % (20.0-45.0) Monocytes (%) (Auto) 7.0 % (1.0-10.0) Eosinophils (%) (Auto) 15.2 % (0.0-3.0) H Basophils (%) (Auto) 0.6 % (0.0-2.0) Plan Problems: (1) Pneumonia (2) Sepsis Assessment & Plan: leukocytosis anemia lactic acidosis agree with GI recommend EGD planned for 12/31 hold feeding for now trend h/h monitor for bleeding no acute hemorrhage will be available in event needs exploration for hemostasis prbc as per heme thank you will follow with recs Pt presented on admission in emaciated state. Pt has tracheostomy and GT. NO skin concerns noted to skin under collar of trach. NO erythema or evidence of skin erosion at GT site. Pt noted to have scaly pimple-like rash with webbing noted to R and L axillae, undersides of both breasts, Bilat groin and lower back. Tracking and webbing noted to hands and feet. Pt restless and scratching at skin. Non-Blanching erythema without induration or fluctuance noted to R and L hips and trochanteric areas.Non-blanching erythema noted along spine. Non-Blanching erythema without induration noted to Sacrum. Non-Blanching erythema noted to R and L Malleoli and both heels. Tx.Plan: Please apply Cavilon Skin Barrier to each bony Prominences at risks for Skin Breakdown. Cover each area with Optifoam drsgs. Change every 7 days and prn. Apply Moisture Barrier Paste to Sacrum. Cover with Optifoam drsg. Change every 3 days and prn. Reposition at least every 2hours or as tolerated. Off-load heels with pillow. APM/EEMLI Mattress overlay. (3) GI bleed (4) G tube feedings Assessment & Plan: DAILY ESTIMATED NEEDS: Needs based on Underweight, critical care 37.3kg 30-40 kcals/kg 4593-2634 total kcals 1.25-2 g protein/kg 47-75 g total protein 25-35 mL/kg 933-1306 total fluid mLs NUTRITION DIAGNOSIS: Increased kcal and pro needs r/t underweight status as evidenced by BMI 14.1, pt is 68% of ideal body weight w/ generalized severe wasting, trach and peg dep. CURRENT TF: Now NPO- pending EGD ENTERAL NUTRITION RECOMMENDATIONS: As able, rec JEVITY 1.2 w/ goal of 50ml/hr x22 hrs to provide 1100ml, 1320 kcal, 61g pro, 888ml free H2O - As medically able, rec to start feeds of Jevity 1.2 @30ml/hr for 6 hrs. Advance as tolerated 10ml/hr q4-6 hrs to goal of 50ml/hr. - HOLD 1HR BEFORE AND AFTER SYNTHROID MEDS - Flush per . HOB over 30 degrees ------- ADDITIONAL RECOMMENDATIONS: 1) Per SNF: 5'4" and 81# Maintain calibrated bed scale wts w/ added P200 mattress 2) Lytes daily, replete as needed (low K, phos) 3) Skin integrity: add BRIAN VIA GT BID, continue Vit C 4) TF recs as above as medically able George [place] Jan 06, 2020 09:40
[2020-01-06] MEDS: Pantoprazole Inj IVP SCH ×2 (09:50→21:10)
[2020-01-06] MEDS: Midodrine 10mg tab ORAL SCH ×3 (09:51→18:13)
[2020-01-06] MEDS: Thiamine 100mg tab ORAL SCH (09:51)
[2020-01-06] MEDS: cefTRIAXone 1gm/D5W 55ml IVPB SCH ×2 (09:51)
[2020-01-06] MEDS: Milk of Magnesia 30ml Ud ORAL SCH (09:51)
[2020-01-06] MEDS: Docusate 100mg cap ORAL SCH (09:51)
[2020-01-06] MEDS: Ascorbic Acid 500mg tab ORAL SCH (09:52)
[2020-01-06] MEDS: Multivitamin w/Minerals tab ORAL SCH (09:52)
[2020-01-06 12:00] VITALS: BP 104/50
--- NOTE | 2020-01-06 13:27 | Nephrology Progress Note ---
Assessment/Plan Problem List: (1) RICHARD (acute kidney injury) (2) Dehydration (3) Anemia (4) GI bleed (5) Malnutrition (6) Seizure disorder (7) Electrolyte imbalance Assessment Renal failure, in the form of prerenal azotemia, most likely secondary to GI bleed GI bleed, leading to severe anemia Sepsis, pneumonia Chronic tracheostomy, ventilator dependent History of CVA History of seizure disorder History of psychiatric disorder Severe malnutrition Electrolyte abnormalities Plan January 05: Labs reviewed. Stable from renal standpoint of view. Continue per consultants. January 04: No labs drawn today. Will check labs tomorrow. Continue per consultants. January 03: Lab reviewed. Renal parameters stable. IV fluid discontinued. High LFTs declining. Continue same. January 02: Lab reviewed. Renal parameters stable. Continue per PMD and consultants. LFTs remain elevated. Continue to monitor. Continue slow hydration Discontinue blood pressure medications as her blood pressure is low Discontinue diuretics Monitor renal parameters Transfusion as needed GI evaluation Correct electrolyte abnormalities Check B12 level, folate, and thyroid function tests: Results noted Subjective ROS Limited/Unobtainable: Yes Objective Objective Last 24 Hour Vital Signs Date Time Temp Pulse Resp B/P (MAP) Pulse Ox O2 Delivery O2 Flow Rate FiO2 01/06/20 12:00 97.2 44 17 104/50 (68) 100 01/06/20 12:00 Mechanical Ventilator 01/06/20 12:00 30 01/06/20 11:39 41 01/06/20 10:42 41 12 30 01/06/20 09:06 99 01/06/20 08:58 49 12 30 01/06/20 08:00 30 01/06/20 08:00 97.3 48 21 86/48 (61) 100 01/06/20 08:00 55 01/06/20 08:00 Mechanical Ventilator 01/06/20 07:07 47 12 30 01/06/20 04:00 30 01/06/20 04:00 72 01/06/20 04:00 97.2 74 21 131/83 (99) 100 01/06/20 04:00 Mechanical Ventilator 01/06/20 03:20 54 14 30 01/06/20 00:00 97.2 48 15 97/54 (68) 100 01/06/20 00:00 30 01/06/20 00:00 Mechanical Ventilator 01/05/20 23:33 48 8/21/20 23:00 49 18 30 01/05/20 20:00 Mechanical Ventilator 01/05/20 20:00 98.1 67 16 94/68 (77) 99 01/05/20 19:27 58 01/05/20 19:00 55 16 100 Mechanical Ventilator 30 58 16 30 01/05/20 16:00 98.6 96 21 107/65 (79) 94 01/05/20 16:00 Mechanical Ventilator 01/05/20 16:00 64 01/05/20 16:00 30 01/05/20 15:30 63 20 30 Intake and Output 01/05/20 01/06/20 19:00 07:00 Intake Total 1220 ml 805 ml Output Total 1301 ml 1300 ml Balance -81 ml -495 ml Intake Free Water 200 ml 200 ml Tube Feeding 660 ml 605 ml Other 360 ml Output Urine Total 1300 ml 1300 ml Stool Total 1 ml # Bowel Movements 1 Laboratory Tests 01/06/20 05:45: Sodium Level 145, Potassium Level 3.8, Chloride Level 109H, Carbon Dioxide Level 32, Anion Gap 4L, Blood Urea Nitrogen 9, Creatinine 0.4L, Estimat Glomerular Filtration Rate > 60, Glucose Level 81, Calcium Level 8.9, Phosphorus Level 2.6, Magnesium Level 1.9, Total Bilirubin 0.2, Gamma Glutamyl Transpeptidase 103H, Aspartate Amino Transf (AST/SGOT) 31, Alanine Aminotransferase (ALT/SGPT) 68, Alkaline Phosphatase 125H, C-Reactive Protein, Quantitative < 0.4, Pro-B-Type Natriuretic Peptide 893H, Total Protein 6.0L, Albumin 2.4L, Globulin 3.6, Albumin/Globulin Ratio 0.7L 01/06/20 06:30: White Blood Count 11.4H, Red Blood Count 2.62L, Hemoglobin 8.2L, Hematocrit 25.2L, Mean Corpuscular Volume 96, Mean Corpuscular Hemoglobin 31.5H, Mean Corpuscular Hemoglobin Concent 32.7, Red Cell Distribution Width 17.3H, Platelet Count 242, Mean Platelet Volume 7.6, Neutrophils (%) (Auto) 55.8, Lymphocytes (%) (Auto) 21.4, Monocytes (%) (Auto) 7.0, Eosinophils (%) (Auto) 15.2H, Basophils (%) (Auto) 0.6 Height (Feet): 5 Height (Inches): 1.00 Weight (Pounds): 82 General Appearance: no apparent distress EENT: other Cardiovascular: tachycardia Respiratory/Chest: decreased breath sounds Abdomen: distended Chivo Holloway MD Jan 06, 2020 13:27
[2020-01-06 16:00] VITALS: BP 115/56
--- NOTE | 2020-01-06 18:35 | Cardiology Progress Note ---
Assessment/Plan Assessment/Plan 1. Hypotension due to septic shock as well as hypovolemia, continue hydration and low dose midodrine. 2. Severe [id number] likely due to midodrine, will decrease to 2.5mg tid. 3. Anemia of chronic disease 4. Acute renal failure, resolved. 5. GI bleeding due to gastric ulceration. 6. Dysphagia, s/p PEG placement. 7. VDRF, s/p tracheostomy tube placement. Subjective Subjective Sinus rhythm at rate of 99. On the vent with FiO2 of 30%. Objective Last 24 Hour Vital Signs Date Time Temp Pulse Resp B/P (MAP) Pulse Ox O2 Delivery O2 Flow Rate FiO2 01/06/20 16:45 45 15 30 01/06/20 16:00 30 01/06/20 16:00 Mechanical Ventilator 01/06/20 16:00 97.2 46 19 115/56 (75) 100 01/06/20 15:26 36 01/06/20 15:02 38 12 30 01/06/20 13:30 46 14 30 01/06/20 12:00 97.2 44 17 104/50 (68) 100 01/06/20 12:00 Mechanical Ventilator 01/06/20 12:00 30 01/06/20 11:39 41 01/06/20 10:42 41 12 30 01/06/20 09:06 99 01/06/20 08:58 49 12 30 01/06/20 08:00 30 01/06/20 08:00 97.3 48 21 86/48 (61) 100 01/06/20 08:00 55 01/06/20 08:00 Mechanical Ventilator 01/06/20 07:07 47 12 30 01/06/20 04:00 30 01/06/20 04:00 72 01/06/20 04:00 97.2 74 21 131/83 (99) 100 01/06/20 04:00 Mechanical Ventilator 01/06/20 03:20 54 14 30 01/06/20 00:00 97.2 48 15 97/54 (68) 100 01/06/20 00:00 30 01/06/20 00:00 Mechanical Ventilator 01/05/20 23:33 48 01/05/20 23:00 49 18 30 01/05/20 20:00 Mechanical Ventilator 01/05/20 20:00 98.1 67 16 94/68 (77) 99 01/05/20 19:27 58 01/05/20 19:00 55 16 100 Mechanical Ventilator 30 58 16 30 Intake and Output 01/05/20 01/06/20 19:00 07:00 Intake Total 1220 ml 860 ml Output Total 1301 ml 1300 ml Balance -81 ml -440 ml Intake Free Water 200 ml 200 ml Tube Feeding 660 ml 660 ml Other 360 ml Output Urine Total 1300 ml 1300 ml Stool Total 1 ml # Bowel Movements 1 Laboratory Tests Test 01/06/20 05:45 01/06/20 06:30 Sodium Level 145 MMOL/L (136-145) Potassium Level 3.8 MMOL/L (3.5-5.1) Chloride Level 109 MMOL/L (98-107) H Carbon Dioxide Level 32 MMOL/L (21-32) Anion Gap 4 mmol/L (5-15) L Blood Urea Nitrogen 9 mg/dL (7-18) Creatinine 0.4 MG/DL (0.55-1.30) L Estimat Glomerular Filtration Rate > 60 mL/min (>60) Glucose Level 81 MG/DL (74-106) Calcium Level 8.9 MG/DL (8.5-10.1) Phosphorus Level 2.6 MG/DL (2.5-4.9) Magnesium Level 1.9 MG/DL (1.8-2.4) Total Bilirubin 0.2 MG/DL (0.2-1.0) Gamma Glutamyl Transpeptidase 103 U/L (5-85) H Aspartate Amino Transf (AST/SGOT) 31 U/L (15-37) Alanine Aminotransferase (ALT/SGPT) 68 U/L (12-78) Alkaline Phosphatase 125 U/L (46-116) H C-Reactive Protein, Quantitative < 0.4 mg/dL (0.00-0.90) Pro-B-Type Natriuretic Peptide 893 pg/mL (0-125) H Total Protein 6.0 G/DL (6.4-8.2) L Albumin 2.4 G/DL (3.4-5.0) L Globulin 3.6 g/dL Albumin/Globulin Ratio 0.7 (1.0-2.7) L White Blood Count 11.4 K/UL (4.8-10.8) H Red Blood Count 2.62 M/UL (4.20-5.40) L Hemoglobin 8.2 G/DL (12.0-16.0) L Hematocrit 25.2 % (37.0-47.0) L Mean Corpuscular Volume 96 FL (80-99) Mean Corpuscular Hemoglobin 31.5 PG (27.0-31.0) H Mean Corpuscular Hemoglobin Concent 32.7 G/DL (32.0-36.0) Red Cell Distribution Width 17.3 % (11.6-14.8) H Platelet Count 242 K/UL (150-450) Mean Platelet Volume 7.6 FL (6.5-10.1) Neutrophils (%) (Auto) 55.8 % (45.0-75.0) Lymphocytes (%) (Auto) 21.4 % (20.0-45.0) Monocytes (%) (Auto) 7.0 % (1.0-10.0) Eosinophils (%) (Auto) 15.2 % (0.0-3.0) H Basophils (%) (Auto) 0.6 % (0.0-2.0) Objective HEENT: PERRLA, EOMI, Trach site with moderate secretions. NECK: Cannot assess JVP, no carotid bruit with normal upstroke. LUNGS: Bilateral rhonchi. CARDIAC: Regular rhythm and rate. Normal S1, S2 with no murmurs, gallops or rubs. ABDOMEN: Soft with G-tube. No hepatomegaly. EXTREMITIES: No edema, clubbing or cyanosis. Desmond Gleason MD Jan 06, 2020 18:35
[2020-01-06] MEDS ORDERED: DOPamine 400mg/250ml 250 ML IV SCH (19:00)
[2020-01-06] MEDS: Theophylline 80mg/15ml GT SCH (19:00)
--- NOTE | 2020-01-06 19:30 | Progress Note ---
DATE: 01/06/2020 The patient is awake, alert, afebrile, hemodynamically stable, and avoids eye contact. PHYSICAL EXAMINATION: VITAL SIGNS: Blood pressure 115/56, pulse is 46, respirations 19, temperature 97.2. Her heart rate went as low as 38 at 3 o'clock in the afternoon today, respirations of 15, temperature 97.2. HEENT: Eyes were normal. ENT, mucous membranes were moist and intact. NECK: Supple with no JVD, without lymph nodes. Tracheostomy site is clean. LUNGS: Clear without rhonchi, rales, or wheezing. HEART: Normal sounds with regular beats. There is no tachycardia at rest. There is bradycardia at rest, even though the patient is awake. ABDOMEN: Soft, nontender with normal bowel sounds. Gastrostomy site is clean. EXTREMITIES: Warm without cyanosis, clubbing, or edema. LABORATORY AND DIAGNOSTIC DATA: Hemoglobin is 8.2, hematocrit 25.2 with MCV of 96, WBC of 11.4, and platelets of 242. WBC was 14.2 yesterday. BUN and creatinine are 9 and 0.4 respectively. Her sodium is 145, potassium 3.8, chloride 109, CO2 is 32. Calcium, phosphorus, and magnesium are all within normal limit. SGOT, SGPT are normal. Alkaline phosphatase is minimally elevated. Albumin is 2.4 and total protein is 6. Chest x-ray today reveals infiltration, pneumonia that has not changed since January 02, 2020. The rest of the exam is unremarkable. The patient may benefit from theophylline therapy. In regard to her heart rate, theophylline 300 mg via G-tube q.8h. will be attempted. Glenny Bishop M.D. DR: MEEK JOB#: [id number] CC:
[2020-01-06 20:00] VITALS: BP 124/65
[2020-01-07] VITALS (9 sets, daily range): BP systolic 85–109; BP diastolic 47–61
[2020-01-07] MEDS: Theophylline 80mg/15ml GT SCH ×3 (05:25→21:31)
[2020-01-07 07:38] LABS: BASOPHILS % (AUTO) 0.8 % (0.0-2.0); EOSINOPHILS % (AUTO) 11.2 % (0.0-3.0); HEMATOCRIT 30.4 % (37.0-47.0); HEMOGLOBIN 9.6 G/DL (12.0-16.0); LYMPHOCYTES % (AUTO) 23.2 % (20.0-45.0); MEAN CORPUSCULAR VOLUME 97 FL (80-99); MONOCYTES % (AUTO) 6.6 % (1.0-10.0); NEUTROPHILS % (AUTO) 58.3 % (45.0-75.0); PLATELET COUNT 350 K/UL (150-450); RED BLOOD COUNT 3.13 M/UL (4.20-5.40); RED CELL DISTRIBUTION WIDTH 16.4 % (11.6-14.8); WHITE BLOOD COUNT 15.9 K/UL (4.8-10.8)
[2020-01-07 08:01] LABS: ANION GAP 7 mmol/L (5-15); BLOOD UREA NITROGEN 12 mg/dL (7-18); CALCIUM 9.7 MG/DL (8.5-10.1); CARBON DIOXIDE 31 MMOL/L (21-32); CHLORIDE 103 MMOL/L (98-107); CREATININE 0.6 MG/DL (0.55-1.30); POTASSIUM 4.3 MMOL/L (3.5-5.1); SODIUM 141 MMOL/L (136-145)
--- NOTE | 2020-01-07 08:01 | Pulmonology Progress Note ---
Ivanna Mora STICKER MACHINE OPERATOR 01/07/20 0801: Subjective ROS Limited/Unobtainable: Yes Allergies: Coded Allergies: CARBAMAZEPINE (Verified Allergy, Unknown, 12/31/19) LORAZEPAM (Verified Allergy, Unknown, 12/31/19) All Systems: reviewed and negative except above Subjective leuk this am, no fevers no resp distress on current settings CXR 01/01 no significant change ABG stable on SIMV mode s/p EGD 01/01 -> gastric ulcer across G tube site last Hgb 9.6 bradycardia resolved as Midodrine dose decreased per cardio Objective Last 24 Hour Vital Signs Date Time Temp Pulse Resp B/P (MAP) Pulse Ox O2 Delivery O2 Flow Rate FiO2 01/07/20 05:16 50 22 30 01/07/20 04:00 97.5 56 16 109/57 (74) 100 01/07/20 04:00 30 01/07/20 04:00 Mechanical Ventilator 01/07/20 03:39 62 01/07/20 02:55 51 26 30 01/07/20 01:29 49 22 30 01/07/20 00:00 97.5 64 16 103/54 (70) 100 01/07/20 00:00 56 01/07/20 00:00 Mechanical Ventilator 01/06/20 23:57 55 18 30 01/06/20 21:00 46 19 30 01/06/20 20:00 97.5 47 16 124/65 (84) 100 01/06/20 20:00 Mechanical Ventilator 01/06/20 20:00 30 01/06/20 19:33 50 01/06/20 19:00 115/56 01/06/20 18:55 47 18 30 01/06/20 16:45 45 15 30 01/06/20 16:00 30 01/06/20 16:00 Mechanical Ventilator 01/06/20 16:00 97.2 46 19 115/56 (75) 100 01/06/20 15:26 36 01/06/20 15:02 38 12 30 01/06/20 13:30 46 14 30 01/06/20 12:00 97.2 44 17 104/50 (68) 100 01/06/20 12:00 Mechanical Ventilator 01/06/20 12:00 30 01/06/20 11:39 41 01/06/20 10:42 41 12 30 01/06/20 09:06 99 01/06/20 08:58 49 12 30 01/06/20 08:00 30 01/06/20 08:00 97.3 48 21 86/48 (61) 100 01/06/20 08:00 55 01/06/20 08:00 Mechanical Ventilator Intake and Output 01/06/20 01/07/20 19:00 07:00 Intake Total 910 ml 590 ml Output Total 950 ml 1500 ml Balance -40 ml -910 ml Intake Free Water 250 ml 150 ml Tube Feeding 660 ml 440 ml Output Urine Total 950 ml 1500 ml Objective General Appearance: bedridden, pale, chronically ill looking, older than her biological age ; vent dependent female ; on vent SIMV 450-30%-12, PEEP 5 Lines, tubes and drains: peripheral, trach HEENT: normocephalic, atraumatic Neck: trach - Portex #7, secretions small amount, yellow color, thick consistency Respiratory/Chest: few isolated rhonchi BL Cardiovascular/Chest: normal rate, regular rhythm Abdomen: non tender, soft, G tube Genitourinary/Rectal: [place] Extremities: no edema, muscle atrophy Neurologic: abnormal gait, poorly responsive, more awake , eyes open Musculoskeletal: atrophy Skin: maculopapular rash improving Laboratory Tests 01/07/20 06:15: White Blood Count 15.9H, Red Blood Count 3.13L, Hemoglobin 9.6L, Hematocrit 30.4L, Mean Corpuscular Volume 97, Mean Corpuscular Hemoglobin 30.6, Mean Corpuscular Hemoglobin Concent 31.5L, Red Cell Distribution Width 16.4H, Platelet Count 350, Mean Platelet Volume 7.4, Neutrophils (%) (Auto) 58.3, Lymphocytes (%) (Auto) 23.2, Monocytes (%) (Auto) 6.6, Eosinophils (%) (Auto) 11.2H, Basophils (%) (Auto) 0.8, Sodium Level [Pending], Potassium Level [ Pending], Chloride Level [Pending], Carbon Dioxide Level [Pending], Blood Urea Nitrogen [Pending], Creatinine [Pending], Estimat Glomerular Filtration Rate [ Pending], Glucose Level [Pending], Calcium Level [Pending] Current Medications Medications (Trade) Dose Ordered Sig/Villa Route PRN Reason Start Time Stop Time Status Last Admin Dose Admin Acetaminophen (Tylenol) 650 mg Q6H PRN GT Temp >100.5 01/01/20 11:00 01/31/20 10:59 Ascorbic Acid (Vitamin C) 500 mg DAILY ORAL 01/01/20 09:00 01/31/20 08:59 01/06/20 09:52 Ceftriaxone Sodium 1 gm/ Dextrose 55 ml @ 110 mls/hr Q24H IVPB 01/03/20 09:00 01/10/20 08:59 01/06/20 09:51 Clonazepam (KlonoPIN) 1 mg Q6H ORAL 12/31/19 21:00 01/07/20 20:59 01/07/20 02:44 Docusate Sodium (Colace) 100 mg DAILY ORAL 01/01/20 09:00 01/31/20 08:59 01/06/20 09:51 Dopamine HCl/ Dextrose 250 ml @ 4.184 mls/ hr Q24H IV 01/06/20 19:00 04/05/20 18:59 Gabapentin (Neurontin) 300 mg EVERY 8 HOURS ORAL 12/31/19 22:00 01/30/20 21:59 01/07/20 05:25 Haloperidol Lactate (Haldol) 5 mg Q6H PRN IM Agitation 01/01/20 23:30 02/15/20 23:29 Levetiracetam (Keppra) 1,000 mg DAILY ORAL 01/01/20 09:00 01/31/20 08:59 01/06/20 09:51 Levothyroxine Sodium (Synthroid) 75 mcg DAILY ORAL 01/01/20 09:00 01/31/20 08:59 01/06/20 09:51 Loperamide HCl (Imodium) 2 mg Q12HR PRN ORAL Diarrhea 12/31/19 21:15 01/30/20 21:14 Magnesium Hydroxide (Mom) 30 ml DAILY ORAL 01/01/20 09:00 01/31/20 08:59 01/06/20 09:51 Midodrine (Pro-Amatine) 2.5 mg THREE TIMES A DAY ORAL 01/07/20 09:00 04/06/20 08:59 Multivitamins Therapeutic (Therapeutic Multivitamin) 1 ea DAILY ORAL 01/01/20 09:00 9/16/20 08:59 01/06/20 09:52 Ondansetron HCl (Zofran) 4 mg Q6H PRN ORAL Nausea & Vomiting 12/31/19 21:00 01/30/20 20:59 Pantoprazole (Protonix) 40 mg EVERY 12 HOURS IVP 01/01/20 09:00 01/31/20 08:59 01/06/20 21:10 Rifaximin (Xifaxan) 550 mg TWICE A DAY ORAL 01/01/20 09:00 01/08/20 08:59 01/06/20 18:13 Theophylline (Theophylline) 300 mg Q8HR GT 01/06/20 19:00 04/05/20 18:59 01/07/20 05:25 Thiamine HCl (Vitamin B1) 100 mg DAILY ORAL 01/01/20 09:00 01/31/20 08:59 01/06/20 09:51 Tramadol HCl (Ultram) 50 mg Q6H PRN ORAL For Pain (4-10) 12/31/19 21:15 01/07/20 20:59 Assessment/Plan Assessment/Plan ASSESSMENT VDRF/trach status Sepsis Possible pneumonia recurrent GI bleeding Anemia secondary to GI bleeding Aspiration risk Dysphagia, feeding by G-tube Chronic encephalopathy Acute kidney injury likely secondary to dehydration Bradycardia-resolved Electrolyte imbalance Severe protein calorie malnutrition Hypertension History of CVA Seizure disorder Psychiatric disorder Presumed scabies, s/p Rx Thrombocytopenia-transient- resolved PLAN OF CARE JULIANA vent support, pulm toilet ABG stable on current settings, on SIMV mode 450-30-12 PEEP5 , no signs of resp distress on these settings keep settings as is and titrate as needed fup CXR no sign change from initial pulm toilet via HHN BCX 1/2 +CONS likely contaminant, off Vanco ; repeated BCX 01/01 and 01/02 NGTD SCX + Proteus , now on Ceftriaxone as per ID recs leuk this am rapid COVID 19 NGT in ED aspiration precautions fup CXR in am Venous Duplex BLE -negative, get SCD ( unable to give a/c given anemia) closely monitor hemodynamic status Protonix IV q12 GT feeding PPI stool OB pending transfuse to keep Hgb > 7. heme and GI follows s/p EGD 01/01 -> gastric ulcer across G tube site , no active bleeding HH at baseline monitor for any furtehr episodes of Gi bleeding trend LFT-> trending down, hep panel NGT hx of cirrhosis- per GI management bradycardia resolved with decreased in midodrine dose as per cardio monitor renal parameters, lytes, avoid nephrotoxic BUN trending down, creat stable, likely prerenal due to dehydration replace e/lytes as per nephro recs monitor volumes seizure precautions, continue Keppra, trend LFT BP management with current regimen SNF meds supportive care dietary eval s/p 12/31 Rx for presumed scabies with permethrin and Ivermectin, ID recommends to repeat Ivermectin in 7 days 01/07 case discussed and evaluated by supervising physician Raul Epsarza MD 01/07/20 1313: Subjective Allergies: Coded Allergies: CARBAMAZEPINE (Verified Allergy, Unknown, 12/31/19) LORAZEPAM (Verified Allergy, Unknown, 12/31/19) Assessment/Plan Assessment/Plan Patient seen and examined with STICKER MACHINE OPERATOR. Agree with above A&P as it reflects our joint deliberations. Ivanna Mora NP Jan 07, 2020 08:01 Raul Esparza MD Jan 07, 2020 13:13
[2020-01-07] MEDS: Docusate 100mg cap ORAL SCH (08:32)
[2020-01-07] MEDS: Milk of Magnesia 30ml Ud ORAL SCH (08:32)
[2020-01-07] MEDS: Pantoprazole Inj IVP SCH ×2 (08:55→21:31)
[2020-01-07] MEDS: Thiamine 100mg tab ORAL SCH (08:56)
[2020-01-07] MEDS: Multivitamin w/Minerals tab ORAL SCH (08:56)
[2020-01-07] MEDS: Ascorbic Acid 500mg tab ORAL SCH (08:56)
[2020-01-07] MEDS: Acetaminophen 650mg/20.3ml GT PRN (08:57)
[2020-01-07] MEDS: cefTRIAXone 1gm/D5W 55ml IVPB SCH ×2 (08:57)
--- NOTE | 2020-01-07 09:41 | Surgery Progress Note ---
Surgery Progress Note Subjective Additional Comments leukocytosis h/h stable exam unchanged Objective Last 24 Hour Vital Signs Date Time Temp Pulse Resp B/P (MAP) Pulse Ox O2 Delivery O2 Flow Rate FiO2 01/07/20 09:27 100.0 01/07/20 09:01 97 01/07/20 09:00 92 17 30 01/07/20 08:00 Mechanical Ventilator 01/07/20 08:00 30 01/07/20 07:58 66 16 106/61 (76) 100 01/07/20 07:34 100.5 67 16 88/57 (67) 100 01/07/20 07:10 84 22 30 01/07/20 05:16 50 22 30 01/07/20 04:00 97.5 56 16 109/57 (74) 100 01/07/20 04:00 30 01/07/20 04:00 Mechanical Ventilator 01/07/20 03:39 62 01/07/20 02:55 51 26 30 01/07/20 01:29 49 22 30 01/07/20 00:00 97.5 64 16 103/54 (70) 100 01/07/20 00:00 56 01/07/20 00:00 Mechanical Ventilator 01/06/20 23:57 55 18 30 01/06/20 21:00 46 19 30 01/06/20 20:00 97.5 47 16 124/65 (84) 100 01/06/20 20:00 Mechanical Ventilator 01/06/20 20:00 30 01/06/20 19:33 50 01/06/20 19:00 115/56 01/06/20 18:55 47 18 30 01/06/20 16:45 45 15 30 01/06/20 16:00 30 01/06/20 16:00 Mechanical Ventilator 01/06/20 16:00 97.2 46 19 115/56 (75) 100 01/06/20 15:26 36 01/06/20 15:02 38 12 30 01/06/20 13:30 46 14 30 01/06/20 12:00 97.2 44 17 104/50 (68) 100 01/06/20 12:00 Mechanical Ventilator 01/06/20 12:00 30 01/06/20 11:39 41 01/06/20 10:42 41 12 30 I&O Intake and Output 01/06/20 01/07/20 19:00 07:00 Intake Total 910 ml 590 ml Output Total 950 ml 1500 ml Balance -40 ml -910 ml Intake Free Water 250 ml 150 ml Tube Feeding 660 ml 440 ml Output Urine Total 950 ml 1500 ml Dressing: saturated Cardiovascular: RSR Respiratory: decreased breath sounds Abdomen: soft, non-tender, present bowel sounds Extremities: no tenderness, no cyanosis Laboratory Tests Test 01/07/20 06:15 White Blood Count 15.9 K/UL (4.8-10.8) H Red Blood Count 3.13 M/UL (4.20-5.40) L Hemoglobin 9.6 G/DL (12.0-16.0) L Hematocrit 30.4 % (37.0-47.0) L Mean Corpuscular Volume 97 FL (80-99) Mean Corpuscular Hemoglobin 30.6 PG (27.0-31.0) Mean Corpuscular Hemoglobin Concent 31.5 G/DL (32.0-36.0) L Red Cell Distribution Width 16.4 % (11.6-14.8) H Platelet Count 350 K/UL (150-450) Mean Platelet Volume 7.4 FL (6.5-10.1) Neutrophils (%) (Auto) 58.3 % (45.0-75.0) Lymphocytes (%) (Auto) 23.2 % (20.0-45.0) Monocytes (%) (Auto) 6.6 % (1.0-10.0) Eosinophils (%) (Auto) 11.2 % (0.0-3.0) H Basophils (%) (Auto) 0.8 % (0.0-2.0) Sodium Level 141 MMOL/L (136-145) Potassium Level 4.3 MMOL/L (3.5-5.1) Chloride Level 103 MMOL/L (98-107) Carbon Dioxide Level 31 MMOL/L (21-32) Anion Gap 7 mmol/L (5-15) Blood Urea Nitrogen 12 mg/dL (7-18) Creatinine 0.6 MG/DL (0.55-1.30) Estimat Glomerular Filtration Rate > 60 mL/min (>60) Glucose Level 85 MG/DL (74-106) Calcium Level 9.7 MG/DL (8.5-10.1) Plan Problems: (1) Pneumonia (2) Sepsis Assessment & Plan: leukocytosis anemia lactic acidosis agree with GI recommend EGD planned for 12/31 hold feeding for now trend h/h monitor for bleeding no acute hemorrhage will be available in event needs exploration for hemostasis prbc as per heme thank you will follow with recs cont abx Pt presented on admission in emaciated state. Pt has tracheostomy and GT. NO skin concerns noted to skin under collar of trach. NO erythema or evidence of skin erosion at GT site. Pt noted to have scaly pimple-like rash with webbing noted to R and L axillae, undersides of both breasts, Bilat groin and lower back. Tracking and webbing noted to hands and feet. Pt restless and scratching at skin. Non-Blanching erythema without induration or fluctuance noted to R and L hips and trochanteric areas.Non-blanching erythema noted along spine. Non-Blanching erythema without induration noted to Sacrum. Non-Blanching erythema noted to R and L Malleoli and both heels. Tx.Plan: Please apply Cavilon Skin Barrier to each bony Prominences at risks for Skin Breakdown. Cover each area with Optifoam drsgs. Change every 7 days and prn. Apply Moisture Barrier Paste to Sacrum. Cover with Optifoam drsg. Change every 3 days and prn. Reposition at least every 2hours or as tolerated. Off-load heels with pillow. APM/EMELI Mattress overlay. (3) GI bleed (4) G tube feedings Assessment & Plan: DAILY ESTIMATED NEEDS: Needs based on Underweight, critical care 37.3kg 30-40 kcals/kg 7931-9177 total kcals 1.25-2 g protein/kg 47-75 g total protein 25-35 mL/kg 933-1306 total fluid mLs NUTRITION DIAGNOSIS: Increased kcal and pro needs r/t underweight status as evidenced by BMI 14.1, pt is 68% of ideal body weight w/ generalized severe wasting, trach and peg dep. CURRENT TF: Now NPO- pending EGD ENTERAL NUTRITION RECOMMENDATIONS: As able, rec JEVITY 1.2 w/ goal of 50ml/hr x22 hrs to provide 1100ml, 1320 kcal, 61g pro, 888ml free H2O - As medically able, rec to start feeds of Jevity 1.2 @30ml/hr for 6 hrs. Advance as tolerated 10ml/hr q4-6 hrs to goal of 50ml/hr. - HOLD 1HR BEFORE AND AFTER SYNTHROID MEDS - Flush per . HOB over 30 degrees ------- ADDITIONAL RECOMMENDATIONS: 1) Per SNF: 5'4" and 81# Maintain calibrated bed scale wts w/ added P200 mattress 2) Lytes daily, replete as needed (low K, phos) 3) Skin integrity: add BRIAN VIA GT BID, continue Vit C 4) TF recs as above as medically able George Woods Jan 07, 2020 09:41
--- NOTE | 2020-01-07 09:42 | General Progress Note ---
Assessment/Plan Problem List: (1) G tube feedings ICD Codes: Z93.1 - Gastrostomy status SNOMED: 534995941, 876314202, 975592024 (2) GI bleed ICD Codes: K92.2 - Gastrointestinal hemorrhage, unspecified SNOMED: 46349940 (3) Sepsis ICD Codes: A41.9 - Sepsis, unspecified organism SNOMED: 30768791 (4) Pneumonia ICD Codes: J18.9 - Pneumonia, unspecified organism SNOMED: 894299104 Assessment/Plan: s/p EGD gastric ulcer no recurrent bleed G TF monitor H&H add prn imodium stool for C.diff ppi Subjective ROS Limited/Unobtainable: No Allergies: Coded Allergies: CARBAMAZEPINE (Verified Allergy, Unknown, 12/31/19) LORAZEPAM (Verified Allergy, Unknown, 12/31/19) Objective Last 24 Hour Vital Signs Date Time Temp Pulse Resp B/P (MAP) Pulse Ox O2 Delivery O2 Flow Rate FiO2 01/07/20 09:27 100.0 01/07/20 09:01 97 01/07/20 09:00 92 17 30 01/07/20 08:00 Mechanical Ventilator 01/07/20 08:00 30 01/07/20 07:58 66 16 106/61 (76) 100 01/07/20 07:34 100.5 67 16 88/57 (67) 100 01/07/20 07:10 84 22 30 01/07/20 05:16 50 22 30 01/07/20 04:00 97.5 56 16 109/57 (74) 100 01/07/20 04:00 30 01/07/20 04:00 Mechanical Ventilator 01/07/20 03:39 62 01/07/20 02:55 51 26 30 01/07/20 01:29 49 22 30 01/07/20 00:00 97.5 64 16 103/54 (70) 100 01/07/20 00:00 56 01/07/20 00:00 Mechanical Ventilator 01/06/20 23:57 55 18 30 01/06/20 21:00 46 19 30 01/06/20 20:00 97.5 47 16 124/65 (84) 100 01/06/20 20:00 Mechanical Ventilator 01/06/20 20:00 30 01/06/20 19:33 50 01/06/20 19:00 115/56 01/06/20 18:55 47 18 30 01/06/20 16:45 45 15 30 01/06/20 16:00 30 01/06/20 16:00 Mechanical Ventilator 01/06/20 16:00 97.2 46 19 115/56 (75) 100 01/06/20 15:26 36 01/06/20 15:02 38 12 30 01/06/20 13:30 46 14 30 01/06/20 12:00 97.2 44 17 104/50 (68) 100 01/06/20 12:00 Mechanical Ventilator 01/06/20 12:00 30 01/06/20 11:39 41 01/06/20 10:42 41 12 30 Intake and Output 01/06/20 01/07/20 19:00 07:00 Intake Total 910 ml 590 ml Output Total 950 ml 1500 ml Balance -40 ml -910 ml Intake Free Water 250 ml 150 ml Tube Feeding 660 ml 440 ml Output Urine Total 950 ml 1500 ml Laboratory Tests 01/07/20 06:15: White Blood Count 15.9H, Red Blood Count 3.13L, Hemoglobin 9.6L, Hematocrit 30.4L, Mean Corpuscular Volume 97, Mean Corpuscular Hemoglobin 30.6, Mean Corpuscular Hemoglobin Concent 31.5L, Red Cell Distribution Width 16.4H, Platelet Count 350, Mean Platelet Volume 7.4, Neutrophils (%) (Auto) 58.3, Lymphocytes (%) (Auto) 23.2, Monocytes (%) (Auto) 6.6, Eosinophils (%) (Auto) 11.2H, Basophils (%) (Auto) 0.8, Sodium Level 141, Potassium Level 4.3, Chloride Level 103, Carbon Dioxide Level 31, Anion Gap 7, Blood Urea Nitrogen 12 , Creatinine 0.6, Estimat Glomerular Filtration Rate > 60, Glucose Level 85, Calcium Level 9.7 Height (Feet): 5 Height (Inches): 1.00 Weight (Pounds): 79 General Appearance: no apparent distress EENT: normal ENT inspection Neck: supple Cardiovascular: normal rate Respiratory/Chest: decreased breath sounds Abdomen: hypoactive bowel sounds Extremities: non-tender Satish Carrillo MD Jan 07, 2020 09:42
--- NOTE | 2020-01-07 11:23 | Nephrology Progress Note ---
Assessment/Plan Problem List: (1) RICHARD (acute kidney injury) (2) Dehydration (3) Anemia (4) GI bleed (5) Malnutrition (6) Seizure disorder (7) Electrolyte imbalance Assessment Renal failure, in the form of prerenal azotemia, most likely secondary to GI bleed GI bleed, leading to severe anemia Sepsis, pneumonia Chronic tracheostomy, ventilator dependent History of CVA History of seizure disorder History of psychiatric disorder Severe malnutrition Electrolyte abnormalities Plan January 06: Lab reviewed. Stable from renal standpoint of view. January 05: Labs reviewed. Stable from renal standpoint of view. Continue per consultants. January 04: No labs drawn today. Will check labs tomorrow. Continue per consultants. January 03: Lab reviewed. Renal parameters stable. IV fluid discontinued. High LFTs declining. Continue same. January 02: Lab reviewed. Renal parameters stable. Continue per PMD and consultants. LFTs remain elevated. Continue to monitor. Continue slow hydration Discontinue blood pressure medications as her blood pressure is low Discontinue diuretics Monitor renal parameters Transfusion as needed GI evaluation Correct electrolyte abnormalities Check B12 level, folate, and thyroid function tests: Results noted Subjective ROS Limited/Unobtainable: Yes Objective Objective Last 24 Hour Vital Signs Date Time Temp Pulse Resp B/P (MAP) Pulse Ox O2 Delivery O2 Flow Rate FiO2 01/07/20 10:41 73 17 30 01/07/20 09:27 100.0 01/07/20 09:01 97 01/07/20 09:00 92 17 30 01/07/20 08:00 Mechanical Ventilator 01/07/20 08:00 30 01/07/20 08:00 81 01/07/20 07:58 66 16 106/61 (76) 100 01/07/20 07:34 100.5 67 16 88/57 (67) 100 01/07/20 07:10 84 22 30 01/07/20 05:16 50 22 30 01/07/20 04:00 97.5 56 16 109/57 (74) 100 01/07/20 04:00 30 01/07/20 04:00 Mechanical Ventilator 01/07/20 03:39 62 01/07/20 02:55 51 26 30 01/07/20 01:29 49 22 30 01/07/20 00:00 97.5 64 16 103/54 (70) 100 01/07/20 00:00 56 01/07/20 00:00 Mechanical Ventilator 01/06/20 23:57 55 18 30 01/06/20 21:00 46 19 30 01/06/20 20:00 97.5 47 16 124/65 (84) 100 01/06/20 20:00 Mechanical Ventilator 01/06/20 20:00 30 01/06/20 19:33 50 01/06/20 19:00 115/56 01/06/20 18:55 47 18 30 01/06/20 16:45 45 15 30 01/06/20 16:00 30 01/06/20 16:00 Mechanical Ventilator 01/06/20 16:00 97.2 46 19 115/56 (75) 100 01/06/20 15:26 36 01/06/20 15:02 38 12 30 01/06/20 13:30 46 14 30 01/06/20 12:00 97.2 44 17 104/50 (68) 100 01/06/20 12:00 Mechanical Ventilator 01/06/20 12:00 30 01/06/20 11:39 41 Intake and Output 01/06/20 01/07/20 19:00 07:00 Intake Total 910 ml 590 ml Output Total 950 ml 1500 ml Balance -40 ml -910 ml Intake Free Water 250 ml 150 ml Tube Feeding 660 ml 440 ml Output Urine Total 950 ml 1500 ml Laboratory Tests 01/07/20 06:15: White Blood Count 15.9H, Red Blood Count 3.13L, Hemoglobin 9.6L, Hematocrit 30.4L, Mean Corpuscular Volume 97, Mean Corpuscular Hemoglobin 30.6, Mean Corpuscular Hemoglobin Concent 31.5L, Red Cell Distribution Width 16.4H, Platelet Count 350, Mean Platelet Volume 7.4, Neutrophils (%) (Auto) 58.3, Lymphocytes (%) (Auto) 23.2, Monocytes (%) (Auto) 6.6, Eosinophils (%) (Auto) 11.2H, Basophils (%) (Auto) 0.8, Sodium Level 141, Potassium Level 4.3, Chloride Level 103, Carbon Dioxide Level 31, Anion Gap 7, Blood Urea Nitrogen 12 , Creatinine 0.6, Estimat Glomerular Filtration Rate > 60, Glucose Level 85, Calcium Level 9.7 Height (Feet): 5 Height (Inches): 1.00 Weight (Pounds): 79 General Appearance: no apparent distress EENT: other - Trach to vent Cardiovascular: normal rate Respiratory/Chest: decreased breath sounds Abdomen: soft Chivo Holloway MD Jan 07, 2020 11:23
[2020-01-07] MEDS: DOPamine 400mg/250ml 250 ML IV SCH (11:51)
--- NOTE | 2020-01-07 12:02 | Infectious Diseases Prog Note ---
Assessment/Plan 39yo F with: Fever to 101.5>>Low grade Possible pna on CXR Leukocytosis to 24, increased Recurrent GIB 12/30 BCx 1/2 +CONS, likely contaminant 12/30 UA neg, COVID rapid Ag neg 12/30 CXR 1. Density overlying the bilateral lung apices. May represent pleural thickening, multifocal airspace opacities, versus summation artifact. 01/01 BCx NTD 01/02 BCx NTD Possible Scabies SP tx w/ Permethrin and Ivermectin 12/31 R/o DVT: None on US 12/30 MRSA nares neg Recurrent GIBs, FOBT+ Hepatic encephalopathy, chronic S/p Trach/PEG Resides at SNF Plan: Cont CTX 1g IV daily # 5/7 for SBP ppx in the setting of GIB 01/02 SP vanco #2, Zosyn #2 For possible Scabies, can repeat ivermectin at day 7 (01/07) to ensure complete tx F/u BCx Trend WBC Monitor CBC/CMP Monitor resp status Monitor temp and hemodynamics Thank you for this consult. [facility] will continue to follow. Subjective Allergies: Coded Allergies: CARBAMAZEPINE (Verified Allergy, Unknown, 12/31/19) LORAZEPAM (Verified Allergy, Unknown, 12/31/19) low grade fever Objective Last 24 Hour Vital Signs Date Time Temp Pulse Resp B/P (MAP) Pulse Ox O2 Delivery O2 Flow Rate FiO2 01/07/20 11:52 97.0 66 16 85/47 (60) 100 01/07/20 11:51 85/47 01/07/20 11:20 77 16 89/51 (64) 100 01/07/20 10:41 73 17 30 01/07/20 09:27 100.0 01/07/20 09:01 97 01/07/20 09:00 92 17 30 01/07/20 08:00 Mechanical Ventilator 01/07/20 08:00 30 01/07/20 08:00 81 01/07/20 07:58 66 16 106/61 (76) 100 01/07/20 07:34 100.5 67 16 88/57 (67) 100 01/07/20 07:10 84 22 30 01/07/20 05:16 50 22 30 01/07/20 04:00 97.5 56 16 109/57 (74) 100 01/07/20 04:00 30 01/07/20 04:00 Mechanical Ventilator 01/07/20 03:39 62 01/07/20 02:55 51 26 30 01/07/20 01:29 49 22 30 01/07/20 00:00 97.5 64 16 103/54 (70) 100 01/07/20 00:00 56 01/07/20 00:00 Mechanical Ventilator 01/06/20 23:57 55 18 30 01/06/20 21:00 46 19 30 01/06/20 20:00 97.5 47 16 124/65 (84) 100 01/06/20 20:00 Mechanical Ventilator 01/06/20 20:00 30 01/06/20 19:33 50 01/06/20 19:00 115/56 01/06/20 18:55 47 18 30 01/06/20 16:45 45 15 30 01/06/20 16:00 30 01/06/20 16:00 Mechanical Ventilator 01/06/20 16:00 97.2 46 19 115/56 (75) 100 01/06/20 15:26 36 01/06/20 15:02 38 12 30 01/06/20 13:30 46 14 30 01/06/20 12:00 97.2 44 17 104/50 (68) 100 01/06/20 12:00 Mechanical Ventilator 01/06/20 12:00 30 Height (Feet): 5 Height (Inches): 1.00 Weight (Pounds): 79 General Appearance: no acute distress Respiratory/Chest: normal breath sounds Cardiovascular: regular rhythm Laboratory Tests Test 01/07/20 06:15 White Blood Count 15.9 K/UL (4.8-10.8) H Red Blood Count 3.13 M/UL (4.20-5.40) L Hemoglobin 9.6 G/DL (12.0-16.0) L Hematocrit 30.4 % (37.0-47.0) L Mean Corpuscular Volume 97 FL (80-99) Mean Corpuscular Hemoglobin 30.6 PG (27.0-31.0) Mean Corpuscular Hemoglobin Concent 31.5 G/DL (32.0-36.0) L Red Cell Distribution Width 16.4 % (11.6-14.8) H Platelet Count 350 K/UL (150-450) Mean Platelet Volume 7.4 FL (6.5-10.1) Neutrophils (%) (Auto) 58.3 % (45.0-75.0) Lymphocytes (%) (Auto) 23.2 % (20.0-45.0) Monocytes (%) (Auto) 6.6 % (1.0-10.0) Eosinophils (%) (Auto) 11.2 % (0.0-3.0) H Basophils (%) (Auto) 0.8 % (0.0-2.0) Sodium Level 141 MMOL/L (136-145) Potassium Level 4.3 MMOL/L (3.5-5.1) Chloride Level 103 MMOL/L (98-107) Carbon Dioxide Level 31 MMOL/L (21-32) Anion Gap 7 mmol/L (5-15) Blood Urea Nitrogen 12 mg/dL (7-18) Creatinine 0.6 MG/DL (0.55-1.30) Estimat Glomerular Filtration Rate > 60 mL/min (>60) Glucose Level 85 MG/DL (74-106) Calcium Level 9.7 MG/DL (8.5-10.1) Current Medications Medications (Trade) Dose Ordered Sig/Villa Route PRN Reason Start Time Stop Time Status Last Admin Dose Admin Acetaminophen (Tylenol) 650 mg Q6H PRN GT Temp >100.5 01/01/20 11:00 01/31/20 10:59 01/07/20 08:57 Ascorbic Acid (Vitamin C) 500 mg DAILY ORAL 01/01/20 09:00 01/31/20 08:59 01/07/20 08:56 Ceftriaxone Sodium 1 gm/ Dextrose 55 ml @ 110 mls/hr Q24H IVPB 01/03/20 09:00 01/10/20 08:59 01/07/20 08:57 Clonazepam (KlonoPIN) 1 mg Q6H ORAL 12/31/19 21:00 01/07/20 20:59 01/07/20 08:55 Dopamine HCl/ Dextrose 250 ml @ 4.031 mls/ hr Q24H IV 01/07/20 10:15 04/05/20 18:59 01/07/20 11:51 Gabapentin (Neurontin) 300 mg EVERY 8 HOURS ORAL 12/31/19 22:00 01/30/20 21:59 01/07/20 05:25 Haloperidol Lactate (Haldol) 5 mg Q6H PRN IM Agitation 01/01/20 23:30 02/15/20 23:29 Levetiracetam (Keppra) 1,000 mg DAILY ORAL 01/01/20 09:00 01/31/20 08:59 01/07/20 08:56 Levothyroxine Sodium (Synthroid) 75 mcg DAILY ORAL 01/01/20 09:00 01/31/20 08:59 01/07/20 08:55 Loperamide HCl (Imodium) 2 mg Q6H PRN NG Diarrhea 01/07/20 09:45 02/06/20 09:44 Midodrine (Pro-Amatine) 2.5 mg THREE TIMES A DAY ORAL 01/07/20 09:00 04/06/20 08:59 01/07/20 08:56 Multivitamins Therapeutic (Therapeutic Multivitamin) 1 ea DAILY ORAL 01/01/20 09:00 01/31/20 08:59 01/07/20 08:56 Ondansetron HCl (Zofran) 4 mg Q6H PRN ORAL Nausea & Vomiting 12/31/19 21:00 01/30/20 20:59 Pantoprazole (Protonix) 40 mg EVERY 12 HOURS IVP 01/01/20 09:00 01/31/20 08:59 01/07/20 08:55 Rifaximin (Xifaxan) 550 mg TWICE A DAY ORAL 01/01/20 09:00 01/08/20 08:59 01/07/20 08:56 Theophylline (Theophylline) 300 mg Q8HR GT 01/06/20 19:00 04/05/20 18:59 01/07/20 05:25 Thiamine HCl (Vitamin B1) 100 mg DAILY ORAL 01/01/20 09:00 01/31/20 08:59 01/07/20 08:56 Tramadol HCl (Ultram) 50 mg Q6H PRN ORAL For Pain (4-10) 12/31/19 21:15 01/07/20 20:59 Tony Camacho MD Jan 07, 2020 12:02
[2020-01-07 12:16] LABS: APPEARANCE,URINE CLEAR; BILIRUBIN, URINE NEGATIVE (NEGATIVE); COLOR,URINE PALE YELLOW; GLUCOSE, URINE (UA) NEGATIVE (NEGATIVE); KETONES,URINE NEGATIVE (NEGATIVE); LEUKOCYTE ESTERASE ,URINE NEGATIVE (NEGATIVE); NITRITE,URINE NEGATIVE (NEGATIVE); PROTEIN,URINE NEGATIVE (NEGATIVE); UROBILINOGEN,URINE NORMAL MG/DL (0.0-1.0)
--- NOTE | 2020-01-07 12:49 | Hematology/Onc Progress Note ---
Assessment/Plan Assessment/Plan # Thrombocytopenia med related v labs error --> plt trend 167-->61-->227 --> meds have been reviewed --> no hep or lovenox (if less than 50k plt) # Anemia rule out underlying gi bleed --> Dr. Carrillo has been consulted-->endosco gastric ulceration --> trend hgb 7-->7.4-->7.9-->8.1->9.6 --> anemia panel ordered --> prn transfusion --> protonix started # Leukocytosis is likely related to pna on imaging --> abx has been started --> if wbc worsens, consider abx vanc/zosyn--> ceftriaxone --> smear is noted --> wbc 25-->15-->14-->16 # Sepsis --> on abx for pna # Pneumonia --> pulm, Dr. 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 consultant care, will follow Subjective Constitutional: Denies: no symptoms, chills, fever, malaise, weakness, other HEENT: Denies: no symptoms, eye pain, blurred vision, tearing, double vision, ear pain, ear discharge, nose pain, nose congestion, throat pain, throat swelling, mouth pain, mouth swelling, other Cardiovascular: Denies: no symptoms, chest pain, edema, irregular heart rate, lightheadedness, palpitations, syncope, other Respiratory: Denies: no symptoms, cough, shortness of breath, SOB with excertion, SOB at rest, sputum, wheezing, other Genitourinary: Denies: no symptoms, burning, discharge, frequency, flank pain, hematuria, incontinence, pain, urgency, other Neurologic/Psychiatric: Denies: no symptoms, anxiety, depressed, emotional problems, headache, numbness, paresthesia, pre-existing deficit, seizure, tingling, tremors, weakness, other Endocrine: Denies: no symptoms, excessive sweating, flushing, intolerance to cold, intolerance to heat, increased hunger, increased thirst, increased urine, unexplained weight gain, unexplained weight loss, other Hematologic/Lymphatic: Denies: no symptoms, anemia, easy bleeding, easy bruising, adenopathy, other Allergies: Coded Allergies: CARBAMAZEPINE (Verified Allergy, Unknown, 12/31/19) LORAZEPAM (Verified Allergy, Unknown, 12/31/19) Subjective 01/01 altered, trach, no bleedin wbc improved on abx, seen by gi 01/02 egd study noted, also with plts 61k, have vitaly Armendariz Rn, will recheck cbc 01/03 remains agitated, vitaly rn, no bleeding, cbc noted as well as id recs 01/04 on vent, with melena overnight, no bleeding, vitaly rn, labs reviewed 01/06 on vent, remains agitated, no bleeding, vitaly rn, smear is noted Objective Objective Current Medications Medications (Trade) Dose Ordered Sig/Villa Route PRN Reason Start Time Stop Time Status Last Admin Dose Admin Acetaminophen (Tylenol) 650 mg Q6H PRN GT Temp >100.5 01/01/20 11:00 01/31/20 10:59 01/07/20 08:57 Ascorbic Acid (Vitamin C) 500 mg DAILY ORAL 01/01/20 09:00 01/31/20 08:59 01/07/20 08:56 Ceftriaxone Sodium 1 gm/ Dextrose 55 ml @ 110 mls/hr Q24H IVPB 01/03/20 09:00 01/10/20 08:59 01/07/20 08:57 Clonazepam (KlonoPIN) 1 mg Q6H ORAL 12/31/19 21:00 01/07/20 20:59 01/07/20 08:55 Dopamine HCl/ Dextrose 250 ml @ 4.031 mls/ hr Q24H IV 01/07/20 10:15 04/05/20 18:59 01/07/20 11:51 Gabapentin (Neurontin) 300 mg EVERY 8 HOURS ORAL 12/31/19 22:00 01/30/20 21:59 01/07/20 05:25 Haloperidol Lactate (Haldol) 5 mg Q6H PRN IM Agitation 01/01/20 23:30 02/15/20 23:29 Levetiracetam (Keppra) 500 mg ONCE GT 01/07/20 12:30 01/07/20 13:30 01/07/20 12:33 Levetiracetam (Keppra) 1,000 mg DAILY ORAL 01/01/20 09:00 01/07/20 21:00 01/07/20 08:56 Levetiracetam (Keppra) 1,000 mg QHS GT 01/07/20 21:00 01/31/20 08:59 UNV Levetiracetam (Keppra) 1,500 mg DAILY GT 01/08/20 09:00 02/07/20 08:59 UNV Levothyroxine Sodium (Synthroid) 75 mcg DAILY ORAL 01/01/20 09:00 01/31/20 08:59 01/07/20 08:55 Loperamide HCl (Imodium) 2 mg Q6H PRN NG Diarrhea 01/07/20 09:45 02/06/20 09:44 Midodrine (Pro-Amatine) 2.5 mg THREE TIMES A DAY ORAL 01/07/20 09:00 04/06/20 08:59 01/07/20 12:33 Multivitamins Therapeutic (Therapeutic Multivitamin) 1 ea DAILY ORAL 01/01/20 09:00 01/31/20 08:59 01/07/20 08:56 Ondansetron HCl (Zofran) 4 mg Q6H PRN ORAL Nausea & Vomiting 12/31/19 21:00 01/30/20 20:59 Pantoprazole (Protonix) 40 mg EVERY 12 HOURS IVP 01/01/20 09:00 01/31/20 08:59 01/07/20 08:55 Rifaximin (Xifaxan) 550 mg TWICE A DAY ORAL 01/07/20 18:00 02/08/20 08:59 UNV Theophylline (Theophylline) 300 mg Q8HR GT 01/06/20 19:00 04/05/20 18:59 01/07/20 05:25 Thiamine HCl (Vitamin B1) 100 mg DAILY ORAL 01/01/20 09:00 01/31/20 08:59 01/07/20 08:56 Tramadol HCl (Ultram) 50 mg Q6H PRN ORAL For Pain (4-10) 12/31/19 21:15 01/07/20 20:59 Last 24 Hour Vital Signs Date Time Temp Pulse Resp B/P (MAP) Pulse Ox O2 Delivery O2 Flow Rate FiO2 01/07/20 11:52 97.0 66 16 85/47 (60) 100 01/07/20 11:51 85/47 01/07/20 11:20 77 16 89/51 (64) 100 01/07/20 10:41 73 17 30 01/07/20 09:27 100.0 01/07/20 09:01 97 01/07/20 09:00 92 17 30 01/07/20 08:00 Mechanical Ventilator 01/07/20 08:00 30 01/07/20 08:00 81 01/07/20 07:58 66 16 106/61 (76) 100 01/07/20 07:34 100.5 67 16 88/57 (67) 100 01/07/20 07:10 84 22 30 01/07/20 05:16 50 22 30 01/07/20 04:00 97.5 56 16 109/57 (74) 100 01/07/20 04:00 30 01/07/20 04:00 Mechanical Ventilator 01/07/20 03:39 62 01/07/20 02:55 51 26 30 01/07/20 01:29 49 22 30 01/07/20 00:00 97.5 64 16 103/54 (70) 100 01/07/20 00:00 56 01/07/20 00:00 Mechanical Ventilator 01/06/20 23:57 55 18 30 01/06/20 21:00 46 19 30 01/06/20 20:00 97.5 47 16 124/65 (84) 100 01/06/20 20:00 Mechanical Ventilator 01/06/20 20:00 30 01/06/20 19:33 50 01/06/20 19:00 115/56 01/06/20 18:55 47 18 30 01/06/20 16:45 45 15 30 01/06/20 16:00 30 01/06/20 16:00 Mechanical Ventilator 01/06/20 16:00 97.2 46 19 115/56 (75) 100 01/06/20 15:26 36 01/06/20 15:02 38 12 30 01/06/20 13:30 46 14 30 01/06/20 12:00 97.2 44 17 104/50 (68) 100 01/06/20 12:00 Mechanical Ventilator 01/06/20 12:00 30 01/06/20 11:39 41 01/06/20 10:42 41 12 30 01/06/20 09:06 99 01/06/20 08:58 49 12 30 01/06/20 08:00 30 01/06/20 08:00 97.3 48 21 86/48 (61) 100 01/06/20 08:00 55 01/06/20 08:00 Mechanical Ventilator 01/06/20 07:07 47 12 30 01/06/20 04:00 30 01/06/20 04:00 72 01/06/20 04:00 97.2 74 21 131/83 (99) 100 01/06/20 04:00 Mechanical Ventilator 01/06/20 03:20 54 14 30 01/06/20 00:00 97.2 48 15 97/54 (68) 100 01/06/20 00:00 30 01/06/20 00:00 Mechanical Ventilator 01/05/20 23:33 48 01/05/20 23:00 49 18 30 01/05/20 20:00 Mechanical Ventilator 01/05/20 20:00 98.1 67 16 94/68 (77) 99 01/05/20 19:27 58 01/05/20 19:00 55 16 100 Mechanical Ventilator 30 58 16 30 01/05/20 16:00 98.6 96 21 107/65 (79) 94 01/05/20 16:00 Mechanical Ventilator 01/05/20 16:00 64 01/05/20 16:00 30 01/05/20 15:30 63 20 30 Intake and Output 01/06/20 01/07/20 19:00 07:00 Intake Total 910 ml 590 ml Output Total 950 ml 1500 ml Balance -40 ml -910 ml Intake Free Water 250 ml 150 ml Tube Feeding 660 ml 440 ml Output Urine Total 950 ml 1500 ml Labs Test 01/06/20 05:45 01/06/20 06:30 01/07/20 06:15 01/07/20 09:20 Sodium Level 145 MMOL/L (136-145) 141 MMOL/L (136-145) Potassium Level 3.8 MMOL/L (3.5-5.1) 4.3 MMOL/L (3.5-5.1) Chloride Level 109 MMOL/L (98-107) 103 MMOL/L (98-107) Carbon Dioxide Level 32 MMOL/L (21-32) 31 MMOL/L (21-32) Anion Gap 4 mmol/L (5-15) 7 mmol/L (5-15) Blood Urea Nitrogen 9 mg/dL (7-18) 12 mg/dL (7-18) Creatinine 0.4 MG/DL (0.55-1.30) 0.6 MG/DL (0.55-1.30) Estimat Glomerular Filtration Rate > 60 mL/min (>60) > 60 mL/min (>60) Glucose Level 81 MG/DL (74-106) 85 MG/DL (74-106) Calcium Level 8.9 MG/DL (8.5-10.1) 9.7 MG/DL (8.5-10.1) Phosphorus Level 2.6 MG/DL (2.5-4.9) Magnesium Level 1.9 MG/DL (1.8-2.4) Total Bilirubin 0.2 MG/DL (0.2-1.0) Gamma Glutamyl Transpeptidase 103 U/L (5-85) Aspartate Amino Transf (AST/SGOT) 31 U/L (15-37) Alanine Aminotransferase (ALT/SGPT) 68 U/L (12-78) Alkaline Phosphatase 125 U/L (46-116) C-Reactive Protein, Quantitative < 0.4 mg/dL (0.00-0.90) Pro-B-Type Natriuretic Peptide 893 pg/mL (0-125) Total Protein 6.0 G/DL (6.4-8.2) Albumin 2.4 G/DL (3.4-5.0) Globulin 3.6 g/dL Albumin/Globulin Ratio 0.7 (1.0-2.7) White Blood Count 11.4 K/UL (4.8-10.8) 15.9 K/UL (4.8-10.8) Red Blood Count 2.62 M/UL (4.20-5.40) 3.13 M/UL (4.20-5.40) Hemoglobin 8.2 G/DL (12.0-16.0) 9.6 G/DL (12.0-16.0) Hematocrit 25.2 % (37.0-47.0) 30.4 % (37.0-47.0) Mean Corpuscular Volume 96 FL (80-99) 97 FL (80-99) Mean Corpuscular Hemoglobin 31.5 PG (27.0-31.0) 30.6 PG (27.0-31.0) Mean Corpuscular Hemoglobin Concent 32.7 G/DL (32.0-36.0) 31.5 G/DL (32.0-36.0) Red Cell Distribution Width 17.3 % (11.6-14.8) 16.4 % (11.6-14.8) Platelet Count 242 K/UL (150-450) 350 K/UL (150-450) Mean Platelet Volume 7.6 FL (6.5-10.1) 7.4 FL (6.5-10.1) Neutrophils (%) (Auto) 55.8 % (45.0-75.0) 58.3 % (45.0-75.0) Lymphocytes (%) (Auto) 21.4 % (20.0-45.0) 23.2 % (20.0-45.0) Monocytes (%) (Auto) 7.0 % (1.0-10.0) 6.6 % (1.0-10.0) Eosinophils (%) (Auto) 15.2 % (0.0-3.0) 11.2 % (0.0-3.0) Basophils (%) (Auto) 0.6 % (0.0-2.0) 0.8 % (0.0-2.0) Urine Color Pale yellow Urine Appearance Clear Urine pH 8.0 (4.5-8.0) Urine Specific [place] 1.005 (1.005-1.035) Urine Protein Negative (NEGATIVE) Urine Glucose (UA) Negative (NEGATIVE) Urine Ketones Negative (NEGATIVE) Urine Blood Negative (NEGATIVE) Urine Nitrite Negative (NEGATIVE) Urine Bilirubin Negative (NEGATIVE) Urine Urobilinogen Normal MG/DL (0.0-1.0) Urine Leukocyte Esterase Negative (NEGATIVE) Height (Feet): 5 Height (Inches): 1.00 Weight (Pounds): 79 Objective Vital Signs General Appearance: ++ cachectic, chronically ill HEENT: normocephalic, atraumatic ++ trach Resp: other -. vent Cardiovascular: regular rate, rhythm, no edema Gastrointestinal: gtube in place, without erythema Rectal: other - Hemoccult positive [place]: back normal, gait/station normal, non-tender Lymphatic: no adenopathy Baltazar Cortes MD Jan 07, 2020 12:49
[2020-01-07] MEDS ORDERED: LORazepam Inj 2mg/ml 1ml IV PRN (13:30)
[2020-01-07] MEDS ORDERED: levETIRAcetam 1,000mg/NS100ml 100 ML IVPB SCH (14:00)
--- NOTE | 2020-01-07 17:13 | Diagnostic Imaging Report ---
Chest 1 view History: Shortness of breath Comparison: 01/06/2020 Findings: Tracheostomy tube tip is in the mid trachea. Mediastinum, heart are unremarkable. Lungs are clear mild perihilar congestion. Costophrenic angles are clear. Bones are unremarkable. Impression: 1. No significant interval change.
[2020-01-07] MEDS: LORazepam Inj 2mg/ml 1ml IV PRN (18:26)
[2020-01-07] MEDS: OXcarbazepine 150mg tab ORAL SCH (18:30)
[2020-01-07] MEDS: levETIRAcetam 500mg/5ml Liquid GT SCH (21:31)
--- NOTE | 2020-01-07 23:59 | Cardiology Progress Note ---
Assessment/Plan Assessment/Plan 1. Hypotension, could be due to Keppra as well, continue hydration, midodrine as well as dopamine. 2. Severe bradycardia likely due to midodrine, resolved, continue lower dose of midodrine. 3. Anemia of chronic disease 4. Acute renal failure, resolved. 5. GI bleeding due to gastric ulceration. 6. Dysphagia, s/p PEG placement. 7. VDRF, s/p tracheostomy tube placement. Subjective Subjective Sinus rhythm at rate of 59. On the vent with FiO2 of 30%. Objective Last 24 Hour Vital Signs Date Time Temp Pulse Resp B/P (MAP) Pulse Ox O2 Delivery O2 Flow Rate FiO2 01/07/20 23:44 59 23 30 01/07/20 20:16 81 01/07/20 20:00 30 01/07/20 20:00 Mechanical Ventilator 01/07/20 20:00 97.7 50 20 91/52 (65) 98 01/07/20 19:40 109 21 30 01/07/20 17:27 88 16 89/54 (66) 100 01/07/20 16:38 89 24 30 01/07/20 16:00 Mechanical Ventilator 01/07/20 16:00 97.6 71 16 89/51 (64) 100 01/07/20 16:00 82 01/07/20 16:00 30 01/07/20 14:51 84 17 30 01/07/20 12:44 84 17 30 01/07/20 12:00 Mechanical Ventilator 01/07/20 12:00 30 01/07/20 12:00 87 01/07/20 11:52 97.0 66 16 85/47 (60) 100 01/07/20 11:51 85/47 01/07/20 11:20 77 16 89/51 (64) 100 01/07/20 10:41 73 17 30 01/07/20 09:27 100.0 01/07/20 09:01 97 01/07/20 09:00 92 17 30 01/07/20 08:00 Mechanical Ventilator 01/07/20 08:00 30 01/07/20 08:00 81 01/07/20 07:58 66 16 106/61 (76) 100 01/07/20 07:34 100.5 67 16 88/57 (67) 100 01/07/20 07:10 84 22 30 01/07/20 05:16 50 22 30 01/07/20 04:00 97.5 56 16 109/57 (74) 100 01/07/20 04:00 30 01/07/20 04:00 Mechanical Ventilator 01/07/20 03:39 62 01/07/20 02:55 51 26 30 01/07/20 01:29 49 22 30 01/07/20 00:00 97.5 64 16 103/54 (70) 100 01/07/20 00:00 56 01/07/20 00:00 Mechanical Ventilator Intake and Output 01/06/20 01/07/20 19:00 07:00 Intake Total 910 ml 590 ml Output Total 950 ml 1500 ml Balance -40 ml -910 ml Intake Free Water 250 ml 150 ml Tube Feeding 660 ml 440 ml Output Urine Total 950 ml 1500 ml Laboratory Tests Test 01/07/20 06:15 01/07/20 09:20 White Blood Count 15.9 K/UL (4.8-10.8) H Red Blood Count 3.13 M/UL (4.20-5.40) L Hemoglobin 9.6 G/DL (12.0-16.0) L Hematocrit 30.4 % (37.0-47.0) L Mean Corpuscular Volume 97 FL (80-99) Mean Corpuscular Hemoglobin 30.6 PG (27.0-31.0) Mean Corpuscular Hemoglobin Concent 31.5 G/DL (32.0-36.0) L Red Cell Distribution Width 16.4 % (11.6-14.8) H Platelet Count 350 K/UL (150-450) Mean Platelet Volume 7.4 FL (6.5-10.1) Neutrophils (%) (Auto) 58.3 % (45.0-75.0) Lymphocytes (%) (Auto) 23.2 % (20.0-45.0) Monocytes (%) (Auto) 6.6 % (1.0-10.0) Eosinophils (%) (Auto) 11.2 % (0.0-3.0) H Basophils (%) (Auto) 0.8 % (0.0-2.0) Sodium Level 141 MMOL/L (136-145) Potassium Level 4.3 MMOL/L (3.5-5.1) Chloride Level 103 MMOL/L (98-107) Carbon Dioxide Level 31 MMOL/L (21-32) Anion Gap 7 mmol/L (5-15) Blood Urea Nitrogen 12 mg/dL (7-18) Creatinine 0.6 MG/DL (0.55-1.30) Estimat Glomerular Filtration Rate > 60 mL/min (>60) Glucose Level 85 MG/DL (74-106) Calcium Level 9.7 MG/DL (8.5-10.1) Urine Color Pale yellow Urine Appearance Clear Urine pH 8.0 (4.5-8.0) Urine Specific [place] 1.005 (1.005-1.035) Urine Protein Negative (NEGATIVE) Urine Glucose (UA) Negative (NEGATIVE) Urine Ketones Negative (NEGATIVE) Urine Blood Negative (NEGATIVE) Urine Nitrite Negative (NEGATIVE) Urine Bilirubin Negative (NEGATIVE) Urine Urobilinogen Normal MG/DL (0.0-1.0) Urine Leukocyte Esterase Negative (NEGATIVE) Objective HEENT: PERRLA, EOMI, Trach site with moderate secretions. NECK: Cannot assess JVP, no carotid bruit with normal upstroke. LUNGS: Bilateral rhonchi. CARDIAC: Regular rhythm and rate. Normal S1, S2 with no murmurs, gallops or rubs. ABDOMEN: Soft with G-tube. No hepatomegaly. EXTREMITIES: No edema, clubbing or cyanosis. Desmond Gleason MD Jan 07, 2020 23:59
[2020-01-08] VITALS: BP 111/62
[2020-01-08 04:00] VITALS: BP 109/65
[2020-01-08] MEDS: Theophylline 80mg/15ml GT SCH ×3 (05:08→21:10)
--- NOTE | 2020-01-08 06:35 | Hematology/Onc Progress Note ---
Assessment/Plan Assessment/Plan # Thrombocytopenia med related v labs error --> plt trend 167-->61-->227 --> meds have been reviewed --> no hep or lovenox (if less than 50k plt) # Anemia rule out underlying gi bleed --> Dr. Carrillo has been consulted-->endosco gastric ulceration --> trend hgb 7-->7.4-->7.9-->8.1->9.6 --> anemia panel ordered-->reviewed --> prn transfusion --> protonix started # Leukocytosis is likely related to pna on imaging --> abx has been started --> if wbc worsens, consider abx vanc/zosyn--> ceftriaxone --> smear is noted --> wbc 25-->15-->14-->16 # Sepsis --> on abx for pna # Pneumonia --> pulm, Dr. 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 procurement consultant care, will follow Subjective Gastrointestinal/Abdominal: Denies: no symptoms, abdomen distended, abdominal pain, black stools, tarry stools, blood in stool, constipated, diarrhea, difficulty swallowing, nausea, poor appetite, poor fluid intake, rectal bleeding , vomiting, other Neurologic/Psychiatric: Denies: no symptoms, anxiety, depressed, emotional problems, headache, numbness, paresthesia, pre-existing deficit, seizure, tingling, tremors, weakness, other Endocrine: Denies: no symptoms, excessive sweating, flushing, intolerance to cold, intolerance to heat, increased hunger, increased thirst, increased urine, unexplained weight gain, unexplained weight loss, other Allergies: Coded Allergies: CARBAMAZEPINE (Verified Allergy, Unknown, 12/31/19) LORAZEPAM (Verified Allergy, Unknown, 12/31/19) All Systems: reviewed and negative except above Subjective 01/01 altered, trach, no bleedin wbc improved on abx, seen by gi 01/02 egd study noted, also with plts 61k, have vitaly Armendariz Rn, will recheck cbc 01/03 remains agitated, dw rn, no bleeding, cbc noted as well as id recs 01/04 on vent, with melena overnight, no bleeding, vitaly rn, labs reviewed 01/06 on vent, remains agitated, no bleeding, vitaly rn, smear is noted 01/07 on vent, restless, asymptomatic, noncooperative Objective Objective Current Medications Medications (Trade) Dose Ordered Sig/Villa Route PRN Reason Start Time Stop Time Status Last Admin Dose Admin Acetaminophen (Tylenol) 650 mg Q6H PRN GT Temp >100.5 01/01/20 11:00 01/31/20 10:59 01/07/20 08:57 Ascorbic Acid (Vitamin C) 500 mg DAILY ORAL 01/01/20 09:00 01/31/20 08:59 01/07/20 08:56 Ceftriaxone Sodium 1 gm/ Dextrose 55 ml @ 110 mls/hr Q24H IVPB 01/03/20 09:00 01/10/20 08:59 01/07/20 08:57 Dopamine HCl/ Dextrose 250 ml @ 4.031 mls/ hr Q24H IV 01/07/20 10:15 04/05/20 18:59 01/07/20 11:51 Gabapentin (Neurontin) 300 mg EVERY 8 HOURS ORAL 12/31/19 22:00 01/30/20 21:59 01/08/20 05:08 Haloperidol Lactate (Haldol) 5 mg Q6H PRN IM Agitation 01/01/20 23:30 02/15/20 23:29 Levetiracetam (Keppra) 1,500 mg Q12HR GT 01/07/20 21:00 02/07/20 08:59 01/07/20 21:31 Levothyroxine Sodium (Synthroid) 75 mcg DAILY ORAL 01/01/20 09:00 01/31/20 08:59 01/07/20 08:55 Loperamide HCl (Imodium) 2 mg Q6H PRN NG Diarrhea 01/07/20 09:45 02/06/20 09:44 01/07/20 18:25 Lorazepam (Ativan 2mg/ml 1ml) 2 mg Q4H PRN IV For Seizures 01/07/20 18:00 01/14/20 17:59 01/07/20 18:26 Midodrine (Pro-Amatine) 2.5 mg THREE TIMES A DAY ORAL 01/07/20 09:00 04/06/20 08:59 01/07/20 18:26 Multivitamins Therapeutic (Therapeutic Multivitamin) 1 ea DAILY ORAL 01/01/20 09:00 01/31/20 08:59 01/07/20 08:56 Ondansetron HCl (Zofran) 4 mg Q6H PRN ORAL Nausea & Vomiting 12/31/19 21:00 01/30/20 20:59 Oxcarbazepine (TrileptaL) 600 mg EVERY 12 HOURS ORAL 01/07/20 18:00 02/06/20 17:59 01/07/20 18:30 Pantoprazole (Protonix) 40 mg EVERY 12 HOURS IVP 01/01/20 09:00 01/31/20 08:59 01/07/20 21:31 Rifaximin (Xifaxan) 550 mg TWICE A DAY ORAL 01/07/20 18:00 02/08/20 08:59 01/07/20 18:25 Theophylline (Theophylline) 300 mg Q8HR GT 01/06/20 19:00 04/05/20 18:59 01/08/20 05:08 Thiamine HCl (Vitamin B1) 100 mg DAILY ORAL 01/01/20 09:00 01/31/20 08:59 01/07/20 08:56 Last 24 Hour Vital Signs Date Time Temp Pulse Resp B/P (MAP) Pulse Ox O2 Delivery O2 Flow Rate FiO2 01/08/20 04:00 Mechanical Ventilator 01/08/20 04:00 97.3 50 19 109/65 (80) 96 01/08/20 04:00 30 01/08/20 03:32 64 01/08/20 03:11 71 14 30 01/08/20 00:00 Mechanical Ventilator 01/08/20 00:00 98.4 50 19 111/62 (78) 96 01/07/20 23:44 59 23 30 01/07/20 20:16 81 01/07/20 20:00 30 01/07/20 20:00 Mechanical Ventilator 01/07/20 20:00 97.7 50 20 91/52 (65) 98 01/07/20 19:40 109 21 30 01/07/20 17:27 88 16 89/54 (66) 100 01/07/20 16:38 89 24 30 01/07/20 16:00 Mechanical Ventilator 01/07/20 16:00 97.6 71 16 89/51 (64) 100 01/07/20 16:00 82 01/07/20 16:00 30 01/07/20 14:51 84 17 30 01/07/20 12:44 84 17 30 01/07/20 12:00 Mechanical Ventilator 01/07/20 12:00 30 01/07/20 12:00 87 01/07/20 11:52 97.0 66 16 85/47 (60) 100 01/07/20 11:51 85/47 01/07/20 11:20 77 16 89/51 (64) 100 01/07/20 10:41 73 17 30 01/07/20 09:27 100.0 01/07/20 09:01 97 01/07/20 09:00 92 17 30 01/07/20 08:00 Mechanical Ventilator 01/07/20 08:00 30 01/07/20 08:00 81 01/07/20 07:58 66 16 106/61 (76) 100 01/07/20 07:34 100.5 67 16 88/57 (67) 100 01/07/20 07:10 84 22 30 01/07/20 05:16 50 22 30 01/07/20 04:00 97.5 56 16 109/57 (74) 100 01/07/20 04:00 30 01/07/20 04:00 Mechanical Ventilator 01/07/20 03:39 62 01/07/20 02:55 51 26 30 01/07/20 01:29 49 22 30 01/07/20 00:00 97.5 64 16 103/54 (70) 100 01/07/20 00:00 56 01/07/20 00:00 Mechanical Ventilator 01/06/20 23:57 55 18 30 01/06/20 21:00 46 19 30 01/06/20 20:00 97.5 47 16 124/65 (84) 100 01/06/20 20:00 Mechanical Ventilator 01/06/20 20:00 30 01/06/20 19:33 50 01/06/20 19:00 115/56 01/06/20 18:55 47 18 30 01/06/20 16:45 45 15 30 01/06/20 16:00 30 01/06/20 16:00 Mechanical Ventilator 01/06/20 16:00 97.2 46 19 115/56 (75) 100 01/06/20 15:26 36 01/06/20 15:02 38 12 30 01/06/20 13:30 46 14 30 01/06/20 12:00 97.2 44 17 104/50 (68) 100 01/06/20 12:00 Mechanical Ventilator 01/06/20 12:00 30 01/06/20 11:39 41 01/06/20 10:42 41 12 30 01/06/20 09:06 99 01/06/20 08:58 49 12 30 01/06/20 08:00 30 01/06/20 08:00 97.3 48 21 86/48 (61) 100 01/06/20 08:00 55 01/06/20 08:00 Mechanical Ventilator 01/06/20 07:07 47 12 30 Intake and Output 01/07/20 01/08/20 19:00 07:00 Intake Total 1038.217 ml 294.341 ml Output Total 1600 ml Balance -561.783 ml 294.341 ml Intake Free Water 250 ml IV Total 683.217 ml 44.341 ml Tube Feeding 55 ml Other 300 ml Output Urine Total 1500 ml Stool Total 100 ml # Bowel Movements 4 Labs Test 01/06/20 05:45 01/06/20 06:30 01/07/20 06:15 01/07/20 09:20 Sodium Level 145 MMOL/L (136-145) 141 MMOL/L (136-145) Potassium Level 3.8 MMOL/L (3.5-5.1) 4.3 MMOL/L (3.5-5.1) Chloride Level 109 MMOL/L (98-107) 103 MMOL/L (98-107) Carbon Dioxide Level 32 MMOL/L (21-32) 31 MMOL/L (21-32) Anion Gap 4 mmol/L (5-15) 7 mmol/L (5-15) Blood Urea Nitrogen 9 mg/dL (7-18) 12 mg/dL (7-18) Creatinine 0.4 MG/DL (0.55-1.30) 0.6 MG/DL (0.55-1.30) Estimat Glomerular Filtration Rate > 60 mL/min (>60) > 60 mL/min (>60) Glucose Level 81 MG/DL (74-106) 85 MG/DL (74-106) Calcium Level 8.9 MG/DL (8.5-10.1) 9.7 MG/DL (8.5-10.1) Phosphorus Level 2.6 MG/DL (2.5-4.9) Magnesium Level 1.9 MG/DL (1.8-2.4) Total Bilirubin 0.2 MG/DL (0.2-1.0) Gamma Glutamyl Transpeptidase 103 U/L (5-85) Aspartate Amino Transf (AST/SGOT) 31 U/L (15-37) Alanine Aminotransferase (ALT/SGPT) 68 U/L (12-78) Alkaline Phosphatase 125 U/L (46-116) C-Reactive Protein, Quantitative < 0.4 mg/dL (0.00-0.90) Pro-B-Type Natriuretic Peptide 893 pg/mL (0-125) Total Protein 6.0 G/DL (6.4-8.2) Albumin 2.4 G/DL (3.4-5.0) Globulin 3.6 g/dL Albumin/Globulin Ratio 0.7 (1.0-2.7) White Blood Count 11.4 K/UL (4.8-10.8) 15.9 K/UL (4.8-10.8) Red Blood Count 2.62 M/UL (4.20-5.40) 3.13 M/UL (4.20-5.40) Hemoglobin 8.2 G/DL (12.0-16.0) 9.6 G/DL (12.0-16.0) Hematocrit 25.2 % (37.0-47.0) 30.4 % (37.0-47.0) Mean Corpuscular Volume 96 FL (80-99) 97 FL (80-99) Mean Corpuscular Hemoglobin 31.5 PG (27.0-31.0) 30.6 PG (27.0-31.0) Mean Corpuscular Hemoglobin Concent 32.7 G/DL (32.0-36.0) 31.5 G/DL (32.0-36.0) Red Cell Distribution Width 17.3 % (11.6-14.8) 16.4 % (11.6-14.8) Platelet Count 242 K/UL (150-450) 350 K/UL (150-450) Mean Platelet Volume 7.6 FL (6.5-10.1) 7.4 FL (6.5-10.1) Neutrophils (%) (Auto) 55.8 % (45.0-75.0) 58.3 % (45.0-75.0) Lymphocytes (%) (Auto) 21.4 % (20.0-45.0) 23.2 % (20.0-45.0) Monocytes (%) (Auto) 7.0 % (1.0-10.0) 6.6 % (1.0-10.0) Eosinophils (%) (Auto) 15.2 % (0.0-3.0) 11.2 % (0.0-3.0) Basophils (%) (Auto) 0.6 % (0.0-2.0) 0.8 % (0.0-2.0) Urine Color Pale yellow Urine Appearance Clear Urine pH 8.0 (4.5-8.0) Urine Specific [place] 1.005 (1.005-1.035) Urine Protein Negative (NEGATIVE) Urine Glucose (UA) Negative (NEGATIVE) Urine Ketones Negative (NEGATIVE) Urine Blood Negative (NEGATIVE) Urine Nitrite Negative (NEGATIVE) Urine Bilirubin Negative (NEGATIVE) Urine Urobilinogen Normal MG/DL (0.0-1.0) Urine Leukocyte Esterase Negative (NEGATIVE) Height (Feet): 5 Height (Inches): 1.00 Weight (Pounds): 76 Objective Vital Signs General Appearance: ++ cachectic, chronically ill HEENT: normocephalic, atraumatic ++ trach Resp: other -. vent Cardiovascular: regular rate, rhythm, no edema Gastrointestinal: gtube in place, without erythema Rectal: other - Hemoccult positive [place]: back normal, gait/station normal, non-tender Lymphatic: no adenopathy Baltazar Cortes MD Jan 08, 2020 06:35
[2020-01-08 06:57] LABS: BASOPHILS % (AUTO) 0.8 % (0.0-2.0); EOSINOPHILS % (AUTO) 1.2 % (0.0-3.0); HEMATOCRIT 30.2 % (37.0-47.0); HEMOGLOBIN 9.7 G/DL (12.0-16.0); LYMPHOCYTES % (AUTO) 18.3 % (20.0-45.0); MEAN CORPUSCULAR VOLUME 97 FL (80-99); MONOCYTES % (AUTO) 6.2 % (1.0-10.0); NEUTROPHILS % (AUTO) 73.6 % (45.0-75.0); PLATELET COUNT 351 K/UL (150-450); RED BLOOD COUNT 3.12 M/UL (4.20-5.40); RED CELL DISTRIBUTION WIDTH 16.6 % (11.6-14.8); WHITE BLOOD COUNT 11.6 K/UL (4.8-10.8)
[2020-01-08 08:00] VITALS: BP 112/62
[2020-01-08] MEDS: LORazepam Inj 2mg/ml 1ml IV PRN (08:20)
[2020-01-08] MEDS: Ascorbic Acid 500mg tab ORAL SCH (09:08)
[2020-01-08] MEDS: cefTRIAXone 1gm/D5W 55ml IVPB SCH ×2 (09:08)
[2020-01-08] MEDS: Multivitamin w/Minerals tab ORAL SCH (09:08)
[2020-01-08] MEDS: Pantoprazole Inj IVP SCH ×2 (09:08→21:09)
[2020-01-08] MEDS: levETIRAcetam 500mg/5ml Liquid GT SCH ×2 (09:08→21:11)
[2020-01-08] MEDS: OXcarbazepine 150mg tab ORAL SCH ×2 (09:09→21:11)
[2020-01-08] MEDS: Thiamine 100mg tab ORAL SCH (09:09)
--- NOTE | 2020-01-08 09:31 | General Progress Note ---
Assessment/Plan Problem List: (1) G tube feedings ICD Codes: Z93.1 - Gastrostomy status SNOMED: 603852024, 297559622, 247224658 (2) GI bleed ICD Codes: K92.2 - Gastrointestinal hemorrhage, unspecified SNOMED: 04226320 (3) Sepsis ICD Codes: A41.9 - Sepsis, unspecified organism SNOMED: 01275957 (4) Pneumonia ICD Codes: J18.9 - Pneumonia, unspecified organism SNOMED: 212195461 Assessment/Plan: s/p EGD gastric ulcer no recurrent bleed G TF monitor H&H add prn imodium stool for C.diff ppi Subjective ROS Limited/Unobtainable: No Allergies: Coded Allergies: CARBAMAZEPINE (Verified Allergy, Unknown, 12/31/19) LORAZEPAM (Verified Allergy, Unknown, 12/31/19) Objective Last 24 Hour Vital Signs Date Time Temp Pulse Resp B/P (MAP) Pulse Ox O2 Delivery O2 Flow Rate FiO2 01/08/20 08:34 110 21 30 01/08/20 04:00 Mechanical Ventilator 01/08/20 04:00 97.3 50 19 109/65 (80) 96 01/08/20 04:00 30 01/08/20 03:32 64 01/08/20 03:11 71 14 30 01/08/20 00:00 Mechanical Ventilator 01/08/20 00:00 98.4 50 19 111/62 (78) 96 01/07/20 23:44 59 23 30 01/07/20 20:16 81 01/07/20 20:00 30 01/07/20 20:00 Mechanical Ventilator 01/07/20 20:00 97.7 50 20 91/52 (65) 98 01/07/20 19:40 109 21 30 01/07/20 17:27 88 16 89/54 (66) 100 01/07/20 16:38 89 24 30 01/07/20 16:00 Mechanical Ventilator 01/07/20 16:00 97.6 71 16 89/51 (64) 100 01/07/20 16:00 82 01/07/20 16:00 30 01/07/20 14:51 84 17 30 01/07/20 12:44 84 17 30 01/07/20 12:00 Mechanical Ventilator 01/07/20 12:00 30 01/07/20 12:00 87 01/07/20 11:52 97.0 66 16 85/47 (60) 100 01/07/20 11:51 85/47 01/07/20 11:20 77 16 89/51 (64) 100 01/07/20 10:41 73 17 30 Intake and Output 01/07/20 01/08/20 19:00 07:00 Intake Total 1038.217 ml 348.372 ml Output Total 1600 ml 450 ml Balance -561.783 ml -101.628 ml Intake Free Water 250 ml IV Total 683.217 ml 48.372 ml Tube Feeding 55 ml 50 ml Other 300 ml Output Urine Total 1500 ml 400 ml Stool Total 100 ml 50 ml # Bowel Movements 4 Laboratory Tests 01/08/20 06:07: White Blood Count 11.6H, Red Blood Count 3.12L, Hemoglobin 9.7L, Hematocrit 30.2L, Mean Corpuscular Volume 97, Mean Corpuscular Hemoglobin 31.0, Mean Corpuscular Hemoglobin Concent 32.1, Red Cell Distribution Width 16.6H, Platelet Count 351, Mean Platelet Volume 6.6, Neutrophils (%) (Auto) 73.6, Lymphocytes (%) (Auto) 18.3L, Monocytes (%) (Auto) 6.2, Eosinophils (%) (Auto) 1.2, Basophils (%) (Auto) 0.8 Height (Feet): 5 Height (Inches): 1.00 Weight (Pounds): 76 General Appearance: no apparent distress EENT: normal ENT inspection Neck: supple Cardiovascular: normal rate Respiratory/Chest: decreased breath sounds Abdomen: normal bowel sounds, non tender, soft Extremities: non-tender Satish Carrillo MD Jan 08, 2020 09:30
--- NOTE | 2020-01-08 10:14 | Pulmonology Progress Note ---
Subjective ROS Limited/Unobtainable: No Allergies: Coded Allergies: CARBAMAZEPINE (Verified Allergy, Unknown, 12/31/19) LORAZEPAM (Verified Allergy, Unknown, 12/31/19) All Systems: reviewed and negative except above Subjective episode of witnessed seizure x 2 min this am already seen by neuro currently calm and resting leuk trending down, no fevers no resp distress on current settings CXR 01/06 stable ABG stable on SIMV mode Objective Last 24 Hour Vital Signs Date Time Temp Pulse Resp B/P (MAP) Pulse Ox O2 Delivery O2 Flow Rate FiO2 01/08/20 09:15 68 16 30 01/08/20 09:15 100 01/08/20 07:10 110 21 30 01/08/20 04:00 Mechanical Ventilator 01/08/20 04:00 97.3 50 19 109/65 (80) 96 01/08/20 04:00 30 01/08/20 03:32 64 01/08/20 03:11 71 14 30 01/08/20 00:00 Mechanical Ventilator 01/08/20 00:00 98.4 50 19 111/62 (78) 96 01/07/20 23:44 59 23 30 01/07/20 20:16 81 01/07/20 20:00 30 01/07/20 20:00 Mechanical Ventilator 01/07/20 20:00 97.7 50 20 91/52 (65) 98 01/07/20 19:40 109 21 30 01/07/20 17:27 88 16 89/54 (66) 100 01/07/20 16:38 89 24 30 01/07/20 16:00 Mechanical Ventilator 01/07/20 16:00 97.6 71 16 89/51 (64) 100 01/07/20 16:00 82 01/07/20 16:00 30 01/07/20 14:51 84 17 30 01/07/20 12:44 84 17 30 01/07/20 12:00 Mechanical Ventilator 01/07/20 12:00 30 01/07/20 12:00 87 01/07/20 11:52 97.0 66 16 85/47 (60) 100 01/07/20 11:51 85/47 01/07/20 11:20 77 16 89/51 (64) 100 01/07/20 10:41 73 17 30 Intake and Output 01/07/20 01/08/20 19:00 07:00 Intake Total 1038.217 ml 348.372 ml Output Total 1600 ml 450 ml Balance -561.783 ml -101.628 ml Intake Free Water 250 ml IV Total 683.217 ml 48.372 ml Tube Feeding 55 ml 50 ml Other 300 ml Output Urine Total 1500 ml 400 ml Stool Total 100 ml 50 ml # Bowel Movements 4 Objective General Appearance: bedridden, pale, chronically ill looking, older than her biological age ; vent dependent female ; on vent SIMV 450-30%-12, PEEP 5 Lines, tubes and drains: peripheral, trach HEENT: normocephalic, atraumatic Neck: trach - Portex #7, secretions small amount, yellow color, thin consistency Respiratory/Chest: few isolated rhonchi BL Cardiovascular/Chest: normal rate, regular rhythm Abdomen: non tender, soft, G tube Genitourinary/Rectal: [place] Extremities: no edema, muscle atrophy Neurologic: abnormal gait, poorly responsive, more awake , eyes open Musculoskeletal: atrophy Skin: maculopapular rash improving Laboratory Tests 01/08/20 06:07: White Blood Count 11.6H, Red Blood Count 3.12L, Hemoglobin 9.7L, Hematocrit 30.2L, Mean Corpuscular Volume 97, Mean Corpuscular Hemoglobin 31.0, Mean Corpuscular Hemoglobin Concent 32.1, Red Cell Distribution Width 16.6H, Platelet Count 351, Mean Platelet Volume 6.6, Neutrophils (%) (Auto) 73.6, Lymphocytes (%) (Auto) 18.3L, Monocytes (%) (Auto) 6.2, Eosinophils (%) (Auto) 1.2, Basophils (%) (Auto) 0.8 Current Medications Medications (Trade) Dose Ordered Sig/Villa Route PRN Reason Start Time Stop Time Status Last Admin Dose Admin Acetaminophen (Tylenol) 650 mg Q6H PRN GT Temp >100.5 01/01/20 11:00 01/31/20 10:59 01/07/20 08:57 Ascorbic Acid (Vitamin C) 500 mg DAILY ORAL 01/01/20 09:00 01/31/20 08:59 01/08/20 09:08 Ceftriaxone Sodium 1 gm/ Dextrose 55 ml @ 110 mls/hr Q24H IVPB 01/03/20 09:00 01/10/20 08:59 01/08/20 09:08 Dopamine HCl/ Dextrose 250 ml @ 4.031 mls/ hr Q24H IV 01/07/20 10:15 04/05/20 18:59 01/07/20 11:51 Gabapentin (Neurontin) 600 mg TID GT 01/08/20 13:00 02/07/20 12:59 Haloperidol Lactate (Haldol) 5 mg Q6H PRN IM Agitation 01/01/20 23:30 02/15/20 23:29 Levetiracetam (Keppra) 1,500 mg Q12HR GT 01/07/20 21:00 02/07/20 08:59 01/08/20 09:08 Levothyroxine Sodium (Synthroid) 75 mcg DAILY ORAL 01/01/20 09:00 01/31/20 08:59 01/08/20 09:08 Loperamide HCl (Imodium) 2 mg Q6H PRN NG Diarrhea 01/07/20 09:45 02/06/20 09:44 01/07/20 18:25 Lorazepam (Ativan 2mg/ml 1ml) 2 mg Q4H PRN IV For Seizures 01/07/20 18:00 01/14/20 17:59 01/08/20 08:20 Midodrine (Pro-Amatine) 2.5 mg THREE TIMES A DAY ORAL 01/07/20 09:00 04/06/20 08:59 01/08/20 09:08 Multivitamins Therapeutic (Therapeutic Multivitamin) 1 ea DAILY ORAL 01/01/20 09:00 01/31/20 08:59 01/08/20 09:08 Ondansetron HCl (Zofran) 4 mg Q6H PRN ORAL Nausea & Vomiting 12/31/19 21:00 01/30/20 20:59 Oxcarbazepine (TrileptaL) 300 mg EVERY 12 HOURS ORAL 01/08/20 21:00 02/07/20 20:59 Pantoprazole (Protonix) 40 mg EVERY 12 HOURS IVP 01/01/20 09:00 01/31/20 08:59 01/08/20 09:08 Rifaximin (Xifaxan) 550 mg TWICE A DAY ORAL 01/07/20 18:00 9/24/20 08:59 01/08/20 09:08 Sodium Chloride 1,000 ml @ 100 mls/hr Q10H IV 01/08/20 08:00 02/07/20 07:59 01/08/20 07:17 Theophylline (Theophylline) 300 mg Q8HR GT 01/06/20 19:00 04/05/20 18:59 01/08/20 05:08 Thiamine HCl (Vitamin B1) 100 mg DAILY ORAL 01/01/20 09:00 01/31/20 08:59 01/08/20 09:09 Assessment/Plan Assessment/Plan ASSESSMENT VDRF/trach status Sepsis Possible pneumonia recurrent GI bleeding Anemia secondary to GI bleeding Aspiration risk Dysphagia, feeding by G-tube Chronic encephalopathy Acute kidney injury likely secondary to dehydration Bradycardia-resolved Electrolyte imbalance Severe protein calorie malnutrition Hypertension History of CVA Seizure disorder with witnessed seizure episode 01/07 Psychiatric disorder Presumed scabies, s/p Rx Thrombocytopenia-transient- resolved PLAN OF CARE JULIANA vent support, pulm toilet ABG stable on current settings, on SIMV mode 450-30-12 PEEP5 , no signs of resp distress on these settings keep settings as is and titrate as needed CXR 01/06 stable pulm toilet via HHN BCX 1/2 +CONS likely contaminant, off Vanco ; repeated BCX 01/01 and 01/02 NGTD SCX + Proteus , now on Ceftriaxone as per ID recs BCX 01/01 and 01/02 NGTD rapid COVID 19 NGT in ED aspiration precautions Venous Duplex BLE -negative, get SCD ( unable to give a/c given anemia) closely monitor hemodynamic status Protonix IV q12 GT feeding PPI stool OB pending transfuse to keep Hgb > 7. heme and GI follows s/p EGD 01/01 -> gastric ulcer across G tube site , no active bleeding HH at baseline monitor for any further episodes of Gi bleeding trend LFT-> trending down, hep panel NGT hx of cirrhosis- per GI management bradycardia resolved with decreased in midodrine dose as per cardio monitor renal parameters, lytes, avoid nephrotoxic BUN trending down, creat stable, likely prerenal due to dehydration replace e/lytes as per nephro recs monitor volumes seizure precautions, antiepileptic optimized as per neuro recs ( due to am witnessed seizure 01/07 lasting for about 2 min) trend LFT BP management with current regimen SNF meds supportive care dietary eval s/p 12/31 Rx for presumed scabies with permethrin and Ivermectin, ID recommends to repeat Ivermectin in 7 days 01/07 case discussed and evaluated by supervising physician Ivanna Mora NP Jan 08, 2020 10:14
[2020-01-08] MEDS: DOPamine 400mg/250ml 250 ML IV SCH (10:33)
[2020-01-08 12:00] VITALS: BP 93/56
--- NOTE | 2020-01-08 12:16 | Surgery Progress Note ---
Surgery Progress Note Subjective Symptoms: improved, tolerating diet, voiding well, passing flatus, BM Objective Last 24 Hour Vital Signs Date Time Temp Pulse Resp B/P (MAP) Pulse Ox O2 Delivery O2 Flow Rate FiO2 01/08/20 11:29 72 16 30 01/08/20 10:33 103/61 01/08/20 09:15 68 16 30 01/08/20 09:15 100 01/08/20 08:00 97.9 104 18 112/62 (79) 98 01/08/20 08:00 Mechanical Ventilator 01/08/20 08:00 30 01/08/20 08:00 123 01/08/20 07:10 110 21 30 01/08/20 04:00 Mechanical Ventilator 01/08/20 04:00 97.3 50 19 109/65 (80) 96 01/08/20 04:00 30 01/08/20 03:32 64 01/08/20 03:11 71 14 30 01/08/20 00:00 Mechanical Ventilator 01/08/20 00:00 98.4 50 19 111/62 (78) 96 01/07/20 23:44 59 23 30 01/07/20 20:16 81 01/07/20 20:00 30 01/07/20 20:00 Mechanical Ventilator 01/07/20 20:00 97.7 50 20 91/52 (65) 98 01/07/20 19:40 109 21 30 01/07/20 17:27 88 16 89/54 (66) 100 01/07/20 16:38 89 24 30 01/07/20 16:00 Mechanical Ventilator 01/07/20 16:00 97.6 71 16 89/51 (64) 100 01/07/20 16:00 82 01/07/20 16:00 30 01/07/20 14:51 84 17 30 01/07/20 12:44 84 17 30 I&O Intake and Output 01/07/20 01/08/20 19:00 07:00 Intake Total 1038.217 ml 348.372 ml Output Total 1600 ml 450 ml Balance -561.783 ml -101.628 ml Intake Free Water 250 ml IV Total 683.217 ml 48.372 ml Tube Feeding 55 ml 50 ml Other 300 ml Output Urine Total 1500 ml 400 ml Stool Total 100 ml 50 ml # Bowel Movements 4 Dressing: saturated Cardiovascular: RSR Respiratory: decreased breath sounds Abdomen: soft, non-tender, present bowel sounds Extremities: no tenderness, no cyanosis Laboratory Tests Test 01/08/20 06:07 01/08/20 10:00 White Blood Count 11.6 K/UL (4.8-10.8) H Red Blood Count 3.12 M/UL (4.20-5.40) L Hemoglobin 9.7 G/DL (12.0-16.0) L Hematocrit 30.2 % (37.0-47.0) L Mean Corpuscular Volume 97 FL (80-99) Mean Corpuscular Hemoglobin 31.0 PG (27.0-31.0) Mean Corpuscular Hemoglobin Concent 32.1 G/DL (32.0-36.0) Red Cell Distribution Width 16.6 % (11.6-14.8) H Platelet Count 351 K/UL (150-450) Mean Platelet Volume 6.6 FL (6.5-10.1) Neutrophils (%) (Auto) 73.6 % (45.0-75.0) Lymphocytes (%) (Auto) 18.3 % (20.0-45.0) L Monocytes (%) (Auto) 6.2 % (1.0-10.0) Eosinophils (%) (Auto) 1.2 % (0.0-3.0) Basophils (%) (Auto) 0.8 % (0.0-2.0) Ammonia 49 umol/L (11-32) H Plan Problems: (1) Pneumonia (2) Sepsis Assessment & Plan: leukocytosis anemia lactic acidosis agree with GI recommend EGD planned for 12/31 hold feeding for now trend h/h monitor for bleeding no acute hemorrhage will be available in event needs exploration for hemostasis prbc as per heme thank you will follow with recs cont abx Pt presented on admission in emaciated state. Pt has tracheostomy and GT. NO skin concerns noted to skin under collar of trach. NO erythema or evidence of skin erosion at GT site. Pt noted to have scaly pimple-like rash with webbing noted to R and L axillae, undersides of both breasts, Bilat groin and lower back. Tracking and webbing noted to hands and feet. Pt restless and scratching at skin. Non-Blanching erythema without induration or fluctuance noted to R and L hips and trochanteric areas.Non-blanching erythema noted along spine. Non-Blanching erythema without induration noted to Sacrum. Non-Blanching erythema noted to R and L Malleoli and both heels. Tx.Plan: Please apply Cavilon Skin Barrier to each bony Prominences at risks for Skin Breakdown. Cover each area with Optifoam drsgs. Change every 7 days and prn. Apply Moisture Barrier Paste to Sacrum. Cover with Optifoam drsg. Change every 3 days and prn. Reposition at least every 2hours or as tolerated. Off-load heels with pillow. APM/EMELI Mattress overlay. improving cont current care plan (3) GI bleed (4) G tube feedings Assessment & Plan: DAILY ESTIMATED NEEDS: Needs based on Underweight, critical care 37.3kg 30-40 kcals/kg 8188-7863 total kcals 1.25-2 g protein/kg 47-75 g total protein 25-35 mL/kg 933-1306 total fluid mLs NUTRITION DIAGNOSIS: Increased kcal and pro needs r/t underweight status as evidenced by BMI 14.1, pt is 68% of ideal body weight w/ generalized severe wasting, trach and peg dep. CURRENT TF: Now NPO- pending EGD ENTERAL NUTRITION RECOMMENDATIONS: As able, rec JEVITY 1.2 w/ goal of 50ml/hr x22 hrs to provide 1100ml, 1320 kcal, 61g pro, 888ml free H2O - As medically able, rec to start feeds of Jevity 1.2 @30ml/hr for 6 hrs. Advance as tolerated 10ml/hr q4-6 hrs to goal of 50ml/hr. - HOLD 1HR BEFORE AND AFTER SYNTHROID MEDS - Flush per . HOB over 30 degrees ------- ADDITIONAL RECOMMENDATIONS: 1) Per SNF: 5'4" and 81# Maintain calibrated bed scale wts w/ added P200 mattress 2) Lytes daily, replete as needed (low K, phos) 3) Skin integrity: add BRIAN VIA GT BID, continue Vit C 4) TF recs as above as medically able George Woods Jan 08, 2020 12:16
--- NOTE | 2020-01-08 12:28 | Nephrology Progress Note ---
Assessment/Plan Problem List: (1) RICHARD (acute kidney injury) (2) Dehydration (3) Anemia (4) GI bleed (5) Malnutrition (6) Seizure disorder (7) Electrolyte imbalance Assessment Renal failure, in the form of prerenal azotemia, most likely secondary to GI bleed GI bleed, leading to severe anemia Sepsis, pneumonia Chronic tracheostomy, ventilator dependent History of CVA History of seizure disorder History of psychiatric disorder Severe malnutrition Electrolyte abnormalities Plan January 07: Lab reviewed. Renal parameters stable. Continue per consultants. January 06: Lab reviewed. Stable from renal standpoint of view. January 05: Labs reviewed. Stable from renal standpoint of view. Continue per consultants. January 04: No labs drawn today. Will check labs tomorrow. Continue per consultants. January 03: Lab reviewed. Renal parameters stable. IV fluid discontinued. High LFTs declining. Continue same. January 02: Lab reviewed. Renal parameters stable. Continue per PMD and consultants. LFTs remain elevated. Continue to monitor. Continue slow hydration Discontinue blood pressure medications as her blood pressure is low Discontinue diuretics Monitor renal parameters Transfusion as needed GI evaluation Correct electrolyte abnormalities Check B12 level, folate, and thyroid function tests: Results noted Subjective ROS Limited/Unobtainable: Yes Objective Objective Last 24 Hour Vital Signs Date Time Temp Pulse Resp B/P (MAP) Pulse Ox O2 Delivery O2 Flow Rate FiO2 01/08/20 11:29 72 16 30 01/08/20 10:33 103/61 01/08/20 09:15 68 16 30 01/08/20 09:15 100 01/08/20 08:00 97.9 104 18 112/62 (79) 98 01/08/20 08:00 Mechanical Ventilator 01/08/20 08:00 30 01/08/20 08:00 123 01/08/20 07:10 110 21 30 01/08/20 04:00 Mechanical Ventilator 01/08/20 04:00 97.3 50 19 109/65 (80) 96 01/08/20 04:00 30 01/08/20 03:32 64 01/08/20 03:11 71 14 30 01/08/20 00:00 Mechanical Ventilator 01/08/20 00:00 98.4 50 19 111/62 (78) 96 01/07/20 23:44 59 23 30 01/07/20 20:16 81 01/07/20 20:00 30 01/07/20 20:00 Mechanical Ventilator 01/07/20 20:00 97.7 50 20 91/52 (65) 98 01/07/20 19:40 109 21 30 01/07/20 17:27 88 16 89/54 (66) 100 01/07/20 16:38 89 24 30 01/07/20 16:00 Mechanical Ventilator 01/07/20 16:00 97.6 71 16 89/51 (64) 100 01/07/20 16:00 82 01/07/20 16:00 30 01/07/20 14:51 84 17 30 01/07/20 12:44 84 17 30 Intake and Output 01/07/20 01/08/20 19:00 07:00 Intake Total 1038.217 ml 348.372 ml Output Total 1600 ml 450 ml Balance -561.783 ml -101.628 ml Intake Free Water 250 ml IV Total 683.217 ml 48.372 ml Tube Feeding 55 ml 50 ml Other 300 ml Output Urine Total 1500 ml 400 ml Stool Total 100 ml 50 ml # Bowel Movements 4 Laboratory Tests 01/08/20 06:07: White Blood Count 11.6H, Red Blood Count 3.12L, Hemoglobin 9.7L, Hematocrit 30.2L, Mean Corpuscular Volume 97, Mean Corpuscular Hemoglobin 31.0, Mean Corpuscular Hemoglobin Concent 32.1, Red Cell Distribution Width 16.6H, Platelet Count 351, Mean Platelet Volume 6.6, Neutrophils (%) (Auto) 73.6, Lymphocytes (%) (Auto) 18.3L, Monocytes (%) (Auto) 6.2, Eosinophils (%) (Auto) 1.2, Basophils (%) (Auto) 0.8 01/08/20 10:00: Ammonia 49H Height (Feet): 5 Height (Inches): 1.00 Weight (Pounds): 76 General Appearance: no apparent distress EENT: other - On mechanical ventilation Cardiovascular: other - Variable rate Respiratory/Chest: decreased breath sounds Abdomen: distended Chivo Holloway MD Jan 08, 2020 12:28
[2020-01-08] MEDS: Gabapentin 300 MG/6 ML Soln GT SCH ×2 (13:40→17:48)
--- NOTE | 2020-01-08 15:50 | Infectious Diseases Prog Note ---
Assessment/Plan 39yo F with: Fever to 101.5>>Low grade ; improving Possible pna on CXR Leukocytosis to 24, increased- now improving Cdiff colitis -cdif toxin + Recurrent GIB 01/06 u/aneg 12/30 BCx 1/2 +CONS, likely contaminant 12/30 UA neg, COVID rapid Ag neg 12/30 CXR 1. Density overlying the bilateral lung apices. May represent pleural thickening, multifocal airspace opacities, versus summation artifact. 01/01 BCx Neg 01/02 BCx Neg Possible Scabies SP tx w/ Permethrin and Ivermectin 12/31 R/o DVT: None on US 12/30 MRSA nares neg Recurrent GIBs, FOBT+ Hepatic encephalopathy, chronic S/p Trach/PEG Resides at SNF Plan: Start PO Vancomycin 125mg PO qid for cdiff Cont CTX 1g IV daily # 6/7 for SBP ppx in the setting of GIB 01/02 SP vanco #2, Zosyn #2 For possible Scabies, can repeat ivermectin at day 7 (01/07) to ensure complete tx F/u BCx Trend WBC Monitor CBC/CMP Monitor resp status Monitor temp and hemodynamics contact isolation Thank you for this consult. [facility] will continue to follow. Subjective Allergies: Coded Allergies: CARBAMAZEPINE (Verified Allergy, Unknown, 12/31/19) LORAZEPAM (Verified Allergy, Unknown, 12/31/19) afebrile >24hrs wbc improving Objective Last 24 Hour Vital Signs Date Time Temp Pulse Resp B/P (MAP) Pulse Ox O2 Delivery O2 Flow Rate FiO2 01/08/20 13:28 65 21 30 01/08/20 12:00 81 01/08/20 12:00 Mechanical Ventilator 01/08/20 12:00 97.9 79 18 93/56 (68) 100 01/08/20 12:00 30 01/08/20 11:29 72 16 30 01/08/20 10:33 103/61 01/08/20 09:15 68 16 30 01/08/20 09:15 100 01/08/20 08:00 97.9 104 18 112/62 (79) 98 01/08/20 08:00 Mechanical Ventilator 01/08/20 08:00 30 01/08/20 08:00 123 01/08/20 07:10 110 21 30 01/08/20 04:00 Mechanical Ventilator 01/08/20 04:00 97.3 50 19 109/65 (80) 96 01/08/20 04:00 30 01/08/20 03:32 64 01/08/20 03:11 71 14 30 01/08/20 00:00 Mechanical Ventilator 01/08/20 00:00 98.4 50 19 111/62 (78) 96 01/07/20 23:44 59 23 30 01/07/20 20:16 81 01/07/20 20:00 30 01/07/20 20:00 Mechanical Ventilator 01/07/20 20:00 97.7 50 20 91/52 (65) 98 01/07/20 19:40 109 21 30 01/07/20 17:27 88 16 89/54 (66) 100 01/07/20 16:38 89 24 30 01/07/20 16:00 Mechanical Ventilator 01/07/20 16:00 97.6 71 16 89/51 (64) 100 01/07/20 16:00 82 01/07/20 16:00 30 Height (Feet): 5 Height (Inches): 1.00 Weight (Pounds): 76 Microbiology Date/Time Source Procedure Growth Status 01/07/20 08:40 Stool Clostridium difficile Toxin Assay - Final Complete Laboratory Tests Test 01/08/20 06:07 01/08/20 10:00 White Blood Count 11.6 K/UL (4.8-10.8) H Red Blood Count 3.12 M/UL (4.20-5.40) L Hemoglobin 9.7 G/DL (12.0-16.0) L Hematocrit 30.2 % (37.0-47.0) L Mean Corpuscular Volume 97 FL (80-99) Mean Corpuscular Hemoglobin 31.0 PG (27.0-31.0) Mean Corpuscular Hemoglobin Concent 32.1 G/DL (32.0-36.0) Red Cell Distribution Width 16.6 % (11.6-14.8) H Platelet Count 351 K/UL (150-450) Mean Platelet Volume 6.6 FL (6.5-10.1) Neutrophils (%) (Auto) 73.6 % (45.0-75.0) Lymphocytes (%) (Auto) 18.3 % (20.0-45.0) L Monocytes (%) (Auto) 6.2 % (1.0-10.0) Eosinophils (%) (Auto) 1.2 % (0.0-3.0) Basophils (%) (Auto) 0.8 % (0.0-2.0) Ammonia 49 umol/L (11-32) H Current Medications Medications (Trade) Dose Ordered Sig/Villa Route PRN Reason Start Time Stop Time Status Last Admin Dose Admin Acetaminophen (Tylenol) 650 mg Q6H PRN GT Temp >100.5 01/01/20 11:00 01/31/20 10:59 01/07/20 08:57 Ascorbic Acid (Vitamin C) 500 mg DAILY ORAL 01/01/20 09:00 01/31/20 08:59 01/08/20 09:08 Ceftriaxone Sodium 1 gm/ Dextrose 55 ml @ 110 mls/hr Q24H IVPB 01/03/20 09:00 01/10/20 08:59 01/08/20 09:08 Dopamine HCl/ Dextrose 250 ml @ 4.031 mls/ hr Q24H IV 01/07/20 10:15 04/05/20 18:59 01/08/20 10:33 Gabapentin (Neurontin) 600 mg TID GT 01/08/20 13:00 02/07/20 12:59 01/08/20 13:40 Haloperidol Lactate (Haldol) 5 mg Q6H PRN IM Agitation 01/01/20 23:30 02/15/20 23:29 Levetiracetam (Keppra) 1,500 mg Q12HR GT 01/07/20 21:00 02/07/20 08:59 01/08/20 09:08 Levothyroxine Sodium (Synthroid) 75 mcg DAILY ORAL 01/01/20 09:00 01/31/20 08:59 01/08/20 09:08 Loperamide HCl (Imodium) 2 mg Q6H PRN NG Diarrhea 01/07/20 09:45 02/06/20 09:44 01/07/20 18:25 Lorazepam (Ativan 2mg/ml 1ml) 2 mg Q4H PRN IV For Seizures 01/07/20 18:00 01/14/20 17:59 01/08/20 08:20 Midodrine (Pro-Amatine) 2.5 mg THREE TIMES A DAY ORAL 01/07/20 09:00 04/06/20 08:59 01/08/20 13:41 Multivitamins Therapeutic (Therapeutic Multivitamin) 1 ea DAILY ORAL 01/01/20 09:00 01/31/20 08:59 01/08/20 09:08 Ondansetron HCl (Zofran) 4 mg Q6H PRN ORAL Nausea & Vomiting 12/31/19 21:00 01/30/20 20:59 Oxcarbazepine (TrileptaL) 300 mg EVERY 12 HOURS ORAL 01/08/20 21:00 02/07/20 20:59 Pantoprazole (Protonix) 40 mg EVERY 12 HOURS IVP 01/01/20 09:00 01/31/20 08:59 01/08/20 09:08 Rifaximin (Xifaxan) 550 mg TWICE A DAY ORAL 01/07/20 18:00 02/08/20 08:59 01/08/20 09:08 Sodium Chloride 1,000 ml @ 100 mls/hr Q10H IV 01/08/20 08:00 02/07/20 07:59 01/08/20 07:17 Theophylline (Theophylline) 300 mg Q8HR GT 01/06/20 19:00 04/05/20 18:59 01/08/20 13:41 Thiamine HCl (Vitamin B1) 100 mg DAILY ORAL 01/01/20 09:00 01/31/20 08:59 01/08/20 09:09 Char Morel M.D. Jan 08, 2020 15:50
[2020-01-08 16:00] VITALS: BP 98/55
[2020-01-08] MEDS: Vancomycin oral 125mg/2.5ml ORAL SCH ×2 (17:47→21:09)
--- NOTE | 2020-01-08 19:26 | Cardiology Progress Note ---
Assessment/Plan Assessment/Plan 1. Hypotension, could be due to Keppra as well, continue hydration, midodrine as well as dopamine. 2. Severe bradycardia likely due to midodrine, resolved, continue lower dose of midodrine. 3. Anemia of chronic disease 4. Acute renal failure, resolved. 5. GI bleeding due to gastric ulceration. 6. Dysphagia, s/p PEG placement. 7. VDRF, s/p tracheostomy tube placement. Subjective Subjective Sinus rhythm at rate of 75. On the vent with FiO2 of 30%. On dopamine gtt at 3mcg. Objective Last 24 Hour Vital Signs Date Time Temp Pulse Resp B/P (MAP) Pulse Ox O2 Delivery O2 Flow Rate FiO2 01/08/20 18:46 75 20 30 01/08/20 17:14 107 17 30 01/08/20 16:00 Mechanical Ventilator 01/08/20 16:00 30 01/08/20 16:00 96.8 71 12 98/55 (69) 100 01/08/20 16:00 74 01/08/20 15:21 73 16 30 01/08/20 13:28 65 21 30 01/08/20 12:00 81 01/08/20 12:00 Mechanical Ventilator 01/08/20 12:00 93/56 01/08/20 12:00 97.9 79 18 93/56 (68) 100 01/08/20 12:00 30 01/08/20 11:29 72 16 30 01/08/20 10:33 103/61 01/08/20 09:15 68 16 30 01/08/20 09:15 100 01/08/20 08:00 97.9 104 18 112/62 (79) 98 01/08/20 08:00 Mechanical Ventilator 01/08/20 08:00 30 01/08/20 08:00 112/62 01/08/20 08:00 123 01/08/20 07:10 110 21 30 01/08/20 04:00 Mechanical Ventilator 01/08/20 04:00 97.3 50 19 109/65 (80) 96 01/08/20 04:00 30 01/08/20 03:32 64 01/08/20 03:11 71 14 30 01/08/20 00:00 Mechanical Ventilator 01/08/20 00:00 98.4 50 19 111/62 (78) 96 01/07/20 23:44 59 23 30 01/07/20 20:16 81 01/07/20 20:00 30 01/07/20 20:00 Mechanical Ventilator 01/07/20 20:00 97.7 50 20 91/52 (65) 98 01/07/20 19:40 109 21 30 Intake and Output 01/07/20 01/08/20 19:00 07:00 Intake Total 1038.217 ml 348.372 ml Output Total 1600 ml 450 ml Balance -561.783 ml -101.628 ml Intake Free Water 250 ml IV Total 683.217 ml 48.372 ml Tube Feeding 55 ml 50 ml Other 300 ml Output Urine Total 1500 ml 400 ml Stool Total 100 ml 50 ml # Bowel Movements 4 Laboratory Tests Test 01/08/20 06:07 01/08/20 10:00 White Blood Count 11.6 K/UL (4.8-10.8) H Red Blood Count 3.12 M/UL (4.20-5.40) L Hemoglobin 9.7 G/DL (12.0-16.0) L Hematocrit 30.2 % (37.0-47.0) L Mean Corpuscular Volume 97 FL (80-99) Mean Corpuscular Hemoglobin 31.0 PG (27.0-31.0) Mean Corpuscular Hemoglobin Concent 32.1 G/DL (32.0-36.0) Red Cell Distribution Width 16.6 % (11.6-14.8) H Platelet Count 351 K/UL (150-450) Mean Platelet Volume 6.6 FL (6.5-10.1) Neutrophils (%) (Auto) 73.6 % (45.0-75.0) Lymphocytes (%) (Auto) 18.3 % (20.0-45.0) L Monocytes (%) (Auto) 6.2 % (1.0-10.0) Eosinophils (%) (Auto) 1.2 % (0.0-3.0) Basophils (%) (Auto) 0.8 % (0.0-2.0) Ammonia 49 umol/L (11-32) H Microbiology Date/Time Source Procedure Growth Status 01/07/20 08:40 Stool Clostridium difficile Toxin Assay - Final Complete Objective HEENT: PERRLA, EOMI, Trach site with moderate secretions. NECK: Cannot assess JVP, no carotid bruit with normal upstroke. LUNGS: Bilateral rhonchi. CARDIAC: Regular rhythm and rate. Normal S1, S2 with no murmurs, gallops or rubs. ABDOMEN: Soft with G-tube. No hepatomegaly. EXTREMITIES: No edema, clubbing or cyanosis. Desmond Gleason MD Jan 08, 2020 19:26
[2020-01-08 20:00] VITALS: BP 100/54
--- NOTE | 2020-01-08 22:29 | Consultation ---
DATE OF CONSULTATION: 01/08/2020 NEUROLOGICAL CONSULTATION CONSULTING PHYSICIAN: Beny John MD HISTORY OF PRESENT ILLNESS: This is the first [facility] admission for this 39-year-old white woman with a history of hepatic encephalopathy, tracheostomy, and ventilator dependent, who was admitted with rectal bleeding, elevated BUN, and hypotension. I was asked to see the patient because of seizures. The patient apparently had a seizure disorder. The patient has a history of seizures and has a history of hypothyroidism, anxiety disorder, and pneumonia. The patient also has a history of conversion disorder and anemia of chronic disease, probably related to GI bleeding with positive Hemoccult on this admission and chronic kidney disease. She also apparently had a cardiac arrest, reason unclear. The patient was a drug abuser and has " ." The patient was admitted. Her serologies in 01/03 were all negative. Her hepatitis A and B, and C and her PT and PTT were normal. Urinalysis on 12/31/2019 and 01/07/2020 was unremarkable, basically normal. Arterial blood gases on 12/31/2019 and 01/03/2020 revealed elevated oxygen levels, otherwise pretty much normal. On admission, her white blood cell count was 24,700 and she had a hemoglobin of 7. The chemistries on admission revealed an abnormally high sodium of 149, elevated liver function test, normal troponin, normal calcium, elevated lactic acid, BUN of 84, that will go all the way to 118 and creatinine was 0.7. Over time, her sodium got up to 151 but otherwise pretty much normalized. Her blood sugars are within normal range. Calcium was low on 01/04/2020 at 8.2, but was normal yesterday and today. Magnesium was earlier low, but now normal. Albumin was 2.7. GFR is 60. Magnesium on 01/04/2020 was 2.1 and yesterday it was 1.9, today not measured. The patient has COVID virus negative. Blood cultures revealed Staphylococcus species coag-negative, though initially was negative after 5 days. More recently, the blood cultures on 01/03/2020 were negative. Chest x-ray on admission was abnormal, but no evidence of pneumonia seen on the report. Chest x-ray yesterday was no significant change. There is some mild interstitial prominence. No focal infiltrate or consolidation. Chest x-ray revealed mild perihilar congestion. The patient had an EKG on December 31, which revealed septal infarct, age undetermined, rightward axis, sinus rhythm with short WA interval. The patient is on Rocephin, dopamine, Keppra increased to 1500 mg b.i.d., Trileptal started yesterday, gabapentin q.8 hours 300 mg, Haldol, levothyroxine, ProAmatine 2.5 mg t.i.d., Zofran, Trileptal 600 mg q.12 hours. She was on theophylline, which was stopped. She is on Xifaxan 550 mg b.i.d. and tramadol 50 mg, which she has discontinued. The patient had two seizures, one yesterday and one today. Today's seizure lasted 2 minutes. She apparently was not unconscious. She may have had leftward conjugate gaze. There is no family history of neurologic disease. PAST MEDICAL HISTORY: See above. PAST SURGICAL HISTORY: See above. ALLERGIES: She is allegedly allergic to carbamazepine. SOCIAL HISTORY: Unknown. The patient is totally disabled. FAMILY HISTORY: Unavailable. REVIEW OF SYSTEMS: Could not be obtained. PHYSICAL EXAMINATION: GENERAL: The patient is a thin, cachectic appearing woman, lying in bed with legs flexed at the hip and knees with bandages on her feet. VITAL SIGNS: Pulse rate is 110 and regular, respiratory rate is 21, FiO2 is 30, temperature is 97.3 degrees. HEENT: The patient's head examination was unremarkable. NECK: Her neck was stiff and she had tracheostomy tube. LUNGS: There are rhonchi bilaterally. ABDOMEN: She has a feeding tube in. Bowel sounds are increased. There is no tenderness, masses, or organomegaly. EXTREMITIES: She had bandages on her feet. NEUROLOGIC: Mental Status: The patient is awake, somewhat combative. Eyes were open. She has no spontaneous speech. No response with any command. Not responsive when she was asked her name or where she was or the date. CRANIAL NERVE EXAMINATION: CRANIAL NERVE II: Visual rodríguez are probably partially intact. CRANIAL NERVES III, IV, AND : The eyes are in the midline. The patient could not participate in eye movements. Pupils are probably about at least 4 mm. She had blepharospasm on attempting to see if her pupils constricted to the light. CRANIAL NERVE V: Corneal appeared to be intact bilaterally. There were almost continuous chewing movements. CRANIAL NERVE VII: Could not be evaluated. CRANIAL NERVE VIII: Could not be evaluated. CRANIAL NERVES IX AND X: Could not be evaluated. CRANIAL NERVE XI: Could not be evaluated. MUSCLE EXAMINATION: Muscle bulk was symmetrically significantly decreased. Tone was normal to slightly increased. She could move her lower extremities and left upper extremity. The right upper extremity was restrained. Reflexes are zero on lower extremities and attempted Babinski sign could not be done because of withdrawal. SENSORY EXAMINATION: Intact to pain. IMPRESSION: The patient has diffuse multifocal encephalopathy with a probable stroke, previous history of hepatic encephalopathy and drug abuse. She had seizures at this time. She is on theophylline and tramadol. Theophylline will be discontinued. Tramadol can also cause seizures, but it is stopped. The patient is allergic to Tegretol and yet she is on Trileptal. The patient can continue on her Keppra 1500 mg b.i.d. The EEG should probably be obtained. The CT scan of the brain could be useful. As far as other drugs are concerned, instead of Trileptal we may want to use Dilantin. She is on Neurontin 300 mg q.8 hours. I can double the dose. Exact cause of the breakthrough seizures at this time is unknown. It could be due to sepsis. The patient is also on Haldol, which can lower the seizure threshold. PLAN: 1. Taper Trileptal to 300 mg b.i.d. 2. Increase Neurontin to 600 mg t.i.d. 3. medications such as the antibiotics. 4. I will speak to you about this case. Beny John MD DR: SABIHA JOB#: [id number] CC:
--- NOTE | 2020-01-08 23:04 | Psych Consult Progress Note ---
Psychiatry Progress Note Psychiatry Progress Note Subjective the pt cont to benefits from restraints she is more alert and has episodes of agitation the pt attempts to pull out lines. awake confused Medications Current Medications Medications (Trade) Dose Ordered Sig/Villa Route PRN Reason Start Time Stop Time Status Last Admin Dose Admin Acetaminophen (Tylenol) 650 mg Q6H PRN GT Temp >100.5 01/01/20 11:00 01/31/20 10:59 01/07/20 08:57 Ascorbic Acid (Vitamin C) 500 mg DAILY ORAL 01/01/20 09:00 01/31/20 08:59 01/08/20 09:08 Ceftriaxone Sodium 1 gm/ Dextrose 55 ml @ 110 mls/hr Q24H IVPB 01/03/20 09:00 01/10/20 08:59 01/08/20 09:08 Dopamine HCl/ Dextrose 250 ml @ 4.031 mls/ hr Q24H IV 01/07/20 10:15 04/05/20 18:59 01/08/20 10:33 Gabapentin (Neurontin) 600 mg TID GT 01/08/20 13:00 02/07/20 12:59 01/08/20 17:48 Haloperidol Lactate (Haldol) 5 mg Q6H PRN IM Agitation 01/01/20 23:30 02/15/20 23:29 Levetiracetam (Keppra) 1,500 mg Q12HR GT 01/07/20 21:00 02/07/20 08:59 01/08/20 21:11 Levothyroxine Sodium (Synthroid) 75 mcg DAILY ORAL 01/01/20 09:00 01/31/20 08:59 01/08/20 09:08 Loperamide HCl (Imodium) 2 mg Q6H PRN NG Diarrhea 01/07/20 09:45 02/06/20 09:44 01/07/20 18:25 Lorazepam (Ativan 2mg/ml 1ml) 2 mg Q4H PRN IV For Seizures 01/07/20 18:00 01/14/20 17:59 01/08/20 08:20 Midodrine (Pro-Amatine) 2.5 mg THREE TIMES A DAY ORAL 01/07/20 09:00 04/06/20 08:59 01/08/20 17:47 Multivitamins Therapeutic (Therapeutic Multivitamin) 1 ea DAILY ORAL 01/01/20 09:00 01/31/20 08:59 01/08/20 09:08 Ondansetron HCl (Zofran) 4 mg Q6H PRN ORAL Nausea & Vomiting 12/31/19 21:00 01/30/20 20:59 Oxcarbazepine (TrileptaL) 300 mg EVERY 12 HOURS ORAL 01/08/20 21:00 02/07/20 20:59 01/08/20 21:11 Pantoprazole (Protonix) 40 mg EVERY 12 HOURS IVP 01/01/20 09:00 01/31/20 08:59 01/08/20 21:09 Rifaximin (Xifaxan) 550 mg TWICE A DAY ORAL 01/07/20 18:00 02/08/20 08:59 01/08/20 17:48 Sodium Chloride 1,000 ml @ 100 mls/hr Q10H IV 01/08/20 08:00 02/07/20 07:59 01/08/20 18:10 Theophylline (Theophylline) 300 mg Q8HR GT 01/06/20 19:00 04/05/20 18:59 01/08/20 21:10 Thiamine HCl (Vitamin B1) 100 mg DAILY ORAL 01/01/20 09:00 01/31/20 08:59 01/08/20 09:09 Vancomycin HCl (Firvanq) 125 mg FOUR TIMES A DAY ORAL 01/08/20 18:00 01/15/20 17:59 01/08/20 21:09 Neurological/Psychiatric: Denies: no symptoms, anxiety, depressed, emotional problems, headache, numbness, paresthesia, pre-existing deficit, seizure, tingling, tremors, weakness, other Allergies: Coded Allergies: CARBAMAZEPINE (Verified Allergy, Unknown, 12/31/19) LORAZEPAM (Verified Allergy, Unknown, 12/31/19) Objective Data Height (Feet): 5 Height (Inches): 1.00 Weight (Pounds): 76 General Appearance: no apparent distress Additional Comments: waxing and waning consciousness. Affect is flat. Thought process, there is a paucity of thought content. Thought content, no suicidal or homicidal ideation. Cognition is impaired. Insight and judgment is impaired. Rhonda Maxwell MD Jan 08, 2020 23:04
[2020-01-09] VITALS: BP 111/59
[2020-01-09 04:00] VITALS: BP 99/64
[2020-01-09 05:49] LABS: EOSINOPHILS % (AUTO) 1.2 % (0.0-3.0); HEMATOCRIT 31.4 % (37.0-47.0); HEMOGLOBIN 9.7 G/DL (12.0-16.0); LYMPHOCYTES % (AUTO) 20.2 % (20.0-45.0); MEAN CORPUSCULAR VOLUME 100 FL (80-99); MONOCYTES % (AUTO) 7.1 % (1.0-10.0); NEUTROPHILS % (AUTO) 67.6 % (45.0-75.0); PLATELET COUNT 371 K/UL (150-450); RED BLOOD COUNT 3.15 M/UL (4.20-5.40); RED CELL DISTRIBUTION WIDTH 17.1 % (11.6-14.8)
[2020-01-09] MEDS: Theophylline 80mg/15ml GT SCH (06:00)
--- NOTE | 2020-01-09 07:23 | Hematology/Onc Progress Note ---
Assessment/Plan Assessment/Plan # Thrombocytopenia med related v labs error --> plt trend 167-->61-->227 --> meds have been reviewed --> no hep or lovenox (if less than 50k plt) # Anemia rule out underlying gi bleed --> Dr. Carrillo has been consulted-->endosco gastric ulceration --> trend hgb 7-->7.4-->7.9-->8.1->9.6 --> anemia panel ordered-->reviewed --> prn transfusion --> protonix started # Leukocytosis is likely related to pna on imaging --> abx has been started --> if wbc worsens, consider abx vanc/zosyn--> ceftriaxone --> smear is noted --> wbc 25-->15-->14-->16 # Sepsis --> on abx for pna # Pneumonia --> pulm, Dr. 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 life skills consultant care, will follow Subjective Cardiovascular: Denies: no symptoms, chest pain, edema, irregular heart rate, lightheadedness, palpitations, syncope, other Respiratory: Denies: no symptoms, cough, shortness of breath, SOB with excertion, SOB at rest, sputum, wheezing, other Gastrointestinal/Abdominal: Denies: no symptoms, abdomen distended, abdominal pain, black stools, tarry stools, blood in stool, constipated, diarrhea, difficulty swallowing, nausea, poor appetite, poor fluid intake, rectal bleeding , vomiting, other Genitourinary: Denies: no symptoms, burning, discharge, frequency, flank pain, hematuria, incontinence, pain, urgency, other Neurologic/Psychiatric: Denies: no symptoms, anxiety, depressed, emotional problems, headache, numbness, paresthesia, pre-existing deficit, seizure, tingling, tremors, weakness, other Endocrine: Denies: no symptoms, excessive sweating, flushing, intolerance to cold, intolerance to heat, increased hunger, increased thirst, increased urine, unexplained weight gain, unexplained weight loss, other Allergies: Coded Allergies: CARBAMAZEPINE (Verified Allergy, Unknown, 12/31/19) LORAZEPAM (Verified Allergy, Unknown, 12/31/19) Subjective 01/01 altered, trach, no bleedin wbc improved on abx, seen by gi 01/02 egd study noted, also with plts 61k, have vitaly Armendariz Rn, will recheck cbc 01/03 remains agitated, vitaly rn, no bleeding, cbc noted as well as id recs 01/04 on vent, with melena overnight, no bleeding, vitaly rn, labs reviewed 01/06 on vent, remains agitated, no bleeding, vitaly rn, smear is noted 01/07 on vent, restless, asymptomatic, noncooperative 01/[address] John obtained, reviewed, meds adjusted, eeg pending Objective Objective Current Medications Medications (Trade) Dose Ordered Sig/Villa Route PRN Reason Start Time Stop Time Status Last Admin Dose Admin Acetaminophen (Tylenol) 650 mg Q6H PRN GT Temp >100.5 01/01/20 11:00 01/31/20 10:59 01/07/20 08:57 Ascorbic Acid (Vitamin C) 500 mg DAILY ORAL 01/01/20 09:00 01/31/20 08:59 01/08/20 09:08 Ceftriaxone Sodium 1 gm/ Dextrose 55 ml @ 110 mls/hr Q24H IVPB 01/03/20 09:00 01/10/20 08:59 01/08/20 09:08 Dopamine HCl/ Dextrose 250 ml @ 4.031 mls/ hr Q24H IV 01/07/20 10:15 04/05/20 18:59 01/08/20 10:33 Gabapentin (Neurontin) 600 mg TID GT 01/08/20 13:00 02/07/20 12:59 01/08/20 17:48 Haloperidol Lactate (Haldol) 5 mg Q6H PRN IM Agitation 01/01/20 23:30 02/15/20 23:29 Levetiracetam (Keppra) 1,500 mg Q12HR GT 01/07/20 21:00 02/07/20 08:59 01/08/20 21:11 Levothyroxine Sodium (Synthroid) 75 mcg DAILY ORAL 01/01/20 09:00 01/31/20 08:59 01/08/20 09:08 Loperamide HCl (Imodium) 2 mg Q6H PRN NG Diarrhea 01/07/20 09:45 02/06/20 09:44 01/07/20 18:25 Lorazepam (Ativan 2mg/ml 1ml) 2 mg Q4H PRN IV For Seizures 01/07/20 18:00 01/14/20 17:59 01/08/20 08:20 Midodrine (Pro-Amatine) 2.5 mg THREE TIMES A DAY ORAL 01/07/20 09:00 04/06/20 08:59 01/08/20 17:47 Multivitamins Therapeutic (Therapeutic Multivitamin) 1 ea DAILY ORAL 01/01/20 09:00 01/31/20 08:59 01/08/20 09:08 Ondansetron HCl (Zofran) 4 mg Q6H PRN ORAL Nausea & Vomiting 12/31/19 21:00 01/30/20 20:59 Oxcarbazepine (TrileptaL) 300 mg EVERY 12 HOURS ORAL 01/08/20 21:00 02/07/20 20:59 01/08/20 21:11 Pantoprazole (Protonix) 40 mg EVERY 12 HOURS IVP 01/01/20 09:00 01/31/20 08:59 01/08/20 21:09 Rifaximin (Xifaxan) 550 mg TWICE A DAY ORAL 01/07/20 18:00 02/08/20 08:59 01/08/20 17:48 Sodium Chloride 1,000 ml @ 100 mls/hr Q10H IV 01/08/20 08:00 02/07/20 07:59 01/09/20 04:32 Theophylline (Theophylline) 300 mg Q8HR GT 01/06/20 19:00 04/05/20 18:59 01/09/20 06:00 Thiamine HCl (Vitamin B1) 100 mg DAILY ORAL 01/01/20 09:00 01/31/20 08:59 01/08/20 09:09 Vancomycin HCl (Firvanq) 125 mg FOUR TIMES A DAY ORAL 01/08/20 18:00 01/15/20 17:59 01/08/20 21:09 Last 24 Hour Vital Signs Date Time Temp Pulse Resp B/P (MAP) Pulse Ox O2 Delivery O2 Flow Rate FiO2 01/09/20 05:06 76 24 30 01/09/20 04:00 Mechanical Ventilator 01/09/20 04:00 97.8 70 20 99/64 (76) 100 01/09/20 04:00 30 01/09/20 03:35 107 01/09/20 02:35 88 22 30 01/09/20 00:59 84 19 30 01/09/20 00:00 Mechanical Ventilator 01/09/20 00:00 97.9 84 20 111/59 (76) 100 01/08/20 23:33 84 01/08/20 22:47 72 20 30 01/08/20 20:33 64 16 30 01/08/20 20:00 30 01/08/20 20:00 98.1 71 16 100/54 (69) 100 01/08/20 20:00 Mechanical Ventilator 01/08/20 20:00 64 01/08/20 18:46 75 20 30 01/08/20 17:14 107 17 30 01/08/20 16:00 Mechanical Ventilator 01/08/20 16:00 30 01/08/20 16:00 96.8 71 12 98/55 (69) 100 01/08/20 16:00 74 01/08/20 15:21 73 16 30 01/08/20 13:28 65 21 30 01/08/20 12:00 81 01/08/20 12:00 Mechanical Ventilator 01/08/20 12:00 93/56 01/08/20 12:00 97.9 79 18 93/56 (68) 100 01/08/20 12:00 30 01/08/20 11:29 72 16 30 01/08/20 10:33 103/61 01/08/20 09:15 68 16 30 01/08/20 09:15 100 01/08/20 08:00 97.9 104 18 112/62 (79) 98 01/08/20 08:00 Mechanical Ventilator 01/08/20 08:00 30 01/08/20 08:00 112/62 01/08/20 08:00 123 01/08/20 07:10 110 21 30 01/08/20 04:00 Mechanical Ventilator 01/08/20 04:00 97.3 50 19 109/65 (80) 96 01/08/20 04:00 30 01/08/20 03:32 64 01/08/20 03:11 71 14 30 01/08/20 00:00 Mechanical Ventilator 01/08/20 00:00 98.4 50 19 111/62 (78) 96 01/07/20 23:44 59 23 30 01/07/20 20:16 81 01/07/20 20:00 30 01/07/20 20:00 Mechanical Ventilator 01/07/20 20:00 97.7 50 20 91/52 (65) 98 01/07/20 19:40 109 21 30 01/07/20 17:27 88 16 89/54 (66) 100 01/07/20 16:38 89 24 30 01/07/20 16:00 Mechanical Ventilator 01/07/20 16:00 97.6 71 16 89/51 (64) 100 01/07/20 16:00 82 01/07/20 16:00 30 01/07/20 14:51 84 17 30 01/07/20 12:44 84 17 30 01/07/20 12:00 Mechanical Ventilator 01/07/20 12:00 30 01/07/20 12:00 87 01/07/20 11:52 97.0 66 16 85/47 (60) 100 01/07/20 11:51 85/47 01/07/20 11:20 77 16 89/51 (64) 100 01/07/20 10:41 73 17 30 01/07/20 09:27 100.0 01/07/20 09:01 97 01/07/20 09:00 92 17 30 01/07/20 08:00 Mechanical Ventilator 01/07/20 08:00 30 01/07/20 08:00 81 01/07/20 07:58 66 16 106/61 (76) 100 01/07/20 07:34 100.5 67 16 88/57 (67) 100 Intake and Output 01/08/20 01/09/20 19:00 07:00 Intake Total 1813.372 ml 1916.011 ml Output Total 780 ml Balance 1033.372 ml 1916.011 ml Intake Free Water 300 ml 320 ml IV Total 1203.372 ml 991.011 ml Tube Feeding 310 ml 605 ml Output Urine Total 750 ml Stool Total 30 ml # Bowel Movements 1 Labs Test 01/07/20 06:15 01/07/20 09:20 01/08/20 06:07 01/08/20 10:00 White Blood Count 15.9 K/UL (4.8-10.8) 11.6 K/UL (4.8-10.8) Red Blood Count 3.13 M/UL (4.20-5.40) 3.12 M/UL (4.20-5.40) Hemoglobin 9.6 G/DL (12.0-16.0) 9.7 G/DL (12.0-16.0) Hematocrit 30.4 % (37.0-47.0) 30.2 % (37.0-47.0) Mean Corpuscular Volume 97 FL (80-99) 97 FL (80-99) Mean Corpuscular Hemoglobin 30.6 PG (27.0-31.0) 31.0 PG (27.0-31.0) Mean Corpuscular Hemoglobin Concent 31.5 G/DL (32.0-36.0) 32.1 G/DL (32.0-36.0) Red Cell Distribution Width 16.4 % (11.6-14.8) 16.6 % (11.6-14.8) Platelet Count 350 K/UL (150-450) 351 K/UL (150-450) Mean Platelet Volume 7.4 FL (6.5-10.1) 6.6 FL (6.5-10.1) Neutrophils (%) (Auto) 58.3 % (45.0-75.0) 73.6 % (45.0-75.0) Lymphocytes (%) (Auto) 23.2 % (20.0-45.0) 18.3 % (20.0-45.0) Monocytes (%) (Auto) 6.6 % (1.0-10.0) 6.2 % (1.0-10.0) Eosinophils (%) (Auto) 11.2 % (0.0-3.0) 1.2 % (0.0-3.0) Basophils (%) (Auto) 0.8 % (0.0-2.0) 0.8 % (0.0-2.0) Sodium Level 141 MMOL/L (136-145) Potassium Level 4.3 MMOL/L (3.5-5.1) Chloride Level 103 MMOL/L (98-107) Carbon Dioxide Level 31 MMOL/L (21-32) Anion Gap 7 mmol/L (5-15) Blood Urea Nitrogen 12 mg/dL (7-18) Creatinine 0.6 MG/DL (0.55-1.30) Estimat Glomerular Filtration Rate > 60 mL/min (>60) Glucose Level 85 MG/DL (74-106) Calcium Level 9.7 MG/DL (8.5-10.1) Urine Color Pale yellow Urine Appearance Clear Urine pH 8.0 (4.5-8.0) Urine Specific [place] 1.005 (1.005-1.035) Urine Protein Negative (NEGATIVE) Urine Glucose (UA) Negative (NEGATIVE) Urine Ketones Negative (NEGATIVE) Urine Blood Negative (NEGATIVE) Urine Nitrite Negative (NEGATIVE) Urine Bilirubin Negative (NEGATIVE) Urine Urobilinogen Normal MG/DL (0.0-1.0) Urine Leukocyte Esterase Negative (NEGATIVE) Ammonia 49 umol/L (11-32) Test 01/09/20 04:50 White Blood Count 11.0 K/UL (4.8-10.8) Red Blood Count 3.15 M/UL (4.20-5.40) Hemoglobin 9.7 G/DL (12.0-16.0) Hematocrit 31.4 % (37.0-47.0) Mean Corpuscular Volume 100 FL (80-99) Mean Corpuscular Hemoglobin 30.8 PG (27.0-31.0) Mean Corpuscular Hemoglobin Concent 30.9 G/DL (32.0-36.0) Red Cell Distribution Width 17.1 % (11.6-14.8) Platelet Count 371 K/UL (150-450) Mean Platelet Volume 6.3 FL (6.5-10.1) Neutrophils (%) (Auto) 67.6 % (45.0-75.0) Lymphocytes (%) (Auto) 20.2 % (20.0-45.0) Monocytes (%) (Auto) 7.1 % (1.0-10.0) Eosinophils (%) (Auto) 1.2 % (0.0-3.0) Basophils (%) (Auto) 4.0 % (0.0-2.0) Height (Feet): 5 Height (Inches): 1.00 Weight (Pounds): 79 Objective Vital Signs General Appearance: ++ cachectic, chronically ill HEENT: normocephalic, atraumatic ++ trach Resp: other -. vent Cardiovascular: regular rate, rhythm, no edema Gastrointestinal: gtube in place, without erythema Rectal: other - Hemoccult positive [place]: back normal, gait/station normal, non-tender Lymphatic: no adenopathy Baltazar Cortes MD Jan 09, 2020 07:22
[2020-01-09 08:00] VITALS: BP_SYST 125; BP_DIAS 29; BP_DIAS 59
[2020-01-09] MEDS: Pantoprazole Inj IVP SCH ×2 (09:52→20:21)
[2020-01-09] MEDS: cefTRIAXone 1gm/D5W 55ml IVPB SCH ×2 (09:54)
[2020-01-09] MEDS: Vancomycin oral 125mg/2.5ml ORAL SCH ×4 (09:54→20:21)
[2020-01-09] MEDS: Multivitamin w/Minerals tab ORAL SCH (09:55)
[2020-01-09] MEDS: Thiamine 100mg tab ORAL SCH (09:55)
[2020-01-09] MEDS: levETIRAcetam 500mg/5ml Liquid GT SCH ×2 (09:55→20:21)
[2020-01-09] MEDS: Ascorbic Acid 500mg tab ORAL SCH (09:55)
[2020-01-09] MEDS: OXcarbazepine 150mg tab ORAL SCH ×2 (09:56→20:20)
[2020-01-09] MEDS: Haloperidol 5mg/ml Inj IM PRN (09:58)
--- NOTE | 2020-01-09 10:00 | Pulmonology Progress Note ---
MroganIvanna JOB SITE SUPERVISOR 01/09/20 1000: Subjective ROS Limited/Unobtainable: Yes Allergies: Coded Allergies: CARBAMAZEPINE (Verified Allergy, Unknown, 12/31/19) LORAZEPAM (Verified Allergy, Unknown, 12/31/19) All Systems: reviewed and negative except above Subjective no signs of resp distress on current settings remains afebrile, mild leukocytosis CXR 01/06 stable ABG stable on SIMV mode stool C dif + yesterday afternoon started on po Vanco episode of witnessed seizure 01/07, a/epileptic regimen optimized by neuro, no further seizure activity Objective Last 24 Hour Vital Signs Date Time Temp Pulse Resp B/P (MAP) Pulse Ox O2 Delivery O2 Flow Rate FiO2 01/09/20 08:33 72 01/09/20 08:00 30 01/09/20 08:00 96.0 123 22 125/29 (61) 98 01/09/20 07:15 85 24 30 01/09/20 05:06 76 24 30 01/09/20 04:00 Mechanical Ventilator 01/09/20 04:00 97.8 70 20 99/64 (76) 100 01/09/20 04:00 30 01/09/20 03:35 107 01/09/20 02:35 88 22 30 01/09/20 00:59 84 19 30 01/09/20 00:00 Mechanical Ventilator 01/09/20 00:00 97.9 84 20 111/59 (76) 100 01/08/20 23:33 84 01/08/20 22:47 72 20 30 01/08/20 20:33 64 16 30 01/08/20 20:00 30 01/08/20 20:00 98.1 71 16 100/54 (69) 100 01/08/20 20:00 Mechanical Ventilator 01/08/20 20:00 64 01/08/20 18:46 75 20 30 01/08/20 17:14 107 17 30 01/08/20 16:00 Mechanical Ventilator 01/08/20 16:00 30 01/08/20 16:00 96.8 71 12 98/55 (69) 100 01/08/20 16:00 74 01/08/20 15:21 73 16 30 01/08/20 13:28 65 21 30 01/08/20 12:00 81 01/08/20 12:00 Mechanical Ventilator 01/08/20 12:00 93/56 01/08/20 12:00 97.9 79 18 93/56 (68) 100 01/08/20 12:00 30 01/08/20 11:29 72 16 30 01/08/20 10:33 103/61 Intake and Output 01/08/20 01/09/20 19:00 07:00 Intake Total 1813.372 ml 1916.011 ml Output Total 780 ml Balance 1033.372 ml 1916.011 ml Intake Free Water 300 ml 320 ml IV Total 1203.372 ml 991.011 ml Tube Feeding 310 ml 605 ml Output Urine Total 750 ml Stool Total 30 ml # Bowel Movements 1 Objective General Appearance: bedridden, pale, chronically ill looking, older than her biological age ; vent dependent female ; on vent SIMV 450-30%-12, PEEP 5 Lines, tubes and drains: peripheral, trach HEENT: normocephalic, atraumatic Neck: trach - Portex #7, secretions small amount, yellow color, thin consistency Respiratory/Chest: CTAB Cardiovascular/Chest: normal rate, regular rhythm Abdomen: non tender, soft, G tube Genitourinary/Rectal: [place] Extremities: no edema, muscle atrophy Neurologic: abnormal gait, poorly responsive, more awake , eyes open Musculoskeletal: atrophy Skin: multiple tattoos Microbiology Date/Time Source Procedure Growth Status 01/07/20 08:40 Stool Clostridium difficile Toxin Assay - Final Complete Laboratory Tests 01/08/20 10:00: Ammonia 49H 01/09/20 04:50: White Blood Count 11.0H, Red Blood Count 3.15L, Hemoglobin 9.7L, Hematocrit 31.4L, Mean Corpuscular Volume 100H, Mean Corpuscular Hemoglobin 30.8, Mean Corpuscular Hemoglobin Concent 30.9L, Red Cell Distribution Width 17.1H, Platelet Count 371, Mean Platelet Volume 6.3L, Neutrophils (%) (Auto) 67.6, Lymphocytes (%) (Auto) 20.2, Monocytes (%) (Auto) 7.1, Eosinophils (%) (Auto) 1.2, Basophils (%) (Auto) 4.0H Current Medications Medications (Trade) Dose Ordered Sig/Villa Route PRN Reason Start Time Stop Time Status Last Admin Dose Admin Acetaminophen (Tylenol) 650 mg Q6H PRN GT Temp >100.5 01/01/20 11:00 01/31/20 10:59 01/07/20 08:57 Ascorbic Acid (Vitamin C) 500 mg DAILY ORAL 01/01/20 09:00 01/31/20 08:59 01/08/20 09:08 Ceftriaxone Sodium 1 gm/ Dextrose 55 ml @ 110 mls/hr Q24H IVPB 01/03/20 09:00 01/10/20 08:59 01/08/20 09:08 Dopamine HCl/ Dextrose 250 ml @ 4.031 mls/ hr Q24H IV 01/07/20 10:15 04/05/20 18:59 01/08/20 10:33 Gabapentin (Neurontin) 600 mg TID GT 01/08/20 13:00 02/07/20 12:59 01/08/20 17:48 Haloperidol Lactate (Haldol) 5 mg Q6H PRN IM Agitation 01/01/20 23:30 02/15/20 23:29 Levetiracetam (Keppra) 1,500 mg Q12HR GT 01/07/20 21:00 02/07/20 08:59 01/08/20 21:11 Levothyroxine Sodium (Synthroid) 75 mcg DAILY ORAL 01/01/20 09:00 01/31/20 08:59 01/08/20 09:08 Loperamide HCl (Imodium) 2 mg Q6H PRN NG Diarrhea 01/07/20 09:45 02/06/20 09:44 01/07/20 18:25 Lorazepam (Ativan 2mg/ml 1ml) 2 mg Q4H PRN IV For Seizures 01/07/20 18:00 01/14/20 17:59 01/08/20 08:20 Midodrine (Pro-Amatine) 2.5 mg THREE TIMES A DAY ORAL 01/07/20 09:00 04/06/20 08:59 01/08/20 17:47 Multivitamins Therapeutic (Therapeutic Multivitamin) 1 ea DAILY ORAL 01/01/20 09:00 01/31/20 08:59 01/08/20 09:08 Ondansetron HCl (Zofran) 4 mg Q6H PRN ORAL Nausea & Vomiting 12/31/19 21:00 01/30/20 20:59 Oxcarbazepine (TrileptaL) 300 mg EVERY 12 HOURS ORAL 01/08/20 21:00 02/07/20 20:59 01/08/20 21:11 Pantoprazole (Protonix) 40 mg EVERY 12 HOURS IVP 01/01/20 09:00 01/31/20 08:59 01/08/20 21:09 Rifaximin (Xifaxan) 550 mg TWICE A DAY ORAL 01/07/20 18:00 02/08/20 08:59 01/08/20 17:48 Sodium Chloride 1,000 ml @ 100 mls/hr Q10H IV 01/08/20 08:00 02/07/20 07:59 01/09/20 04:32 Theophylline (Theophylline) 300 mg Q8HR GT 01/06/20 19:00 04/05/20 18:59 01/09/20 06:00 Thiamine HCl (Vitamin B1) 100 mg DAILY ORAL 01/01/20 09:00 01/31/20 08:59 01/08/20 09:09 Vancomycin HCl (Firvanq) 125 mg FOUR TIMES A DAY ORAL 01/08/20 18:00 01/15/20 17:59 01/08/20 21:09 Assessment/Plan Assessment/Plan ASSESSMENT VDRF/trach status Sepsis Possible pneumonia recurrent GI bleeding C dif colitis Anemia secondary to GI bleeding Aspiration risk Dysphagia, feeding by G-tube Chronic encephalopathy Acute kidney injury likely secondary to dehydration Bradycardia-resolved Electrolyte imbalance Severe protein calorie malnutrition Hypertension History of CVA Seizure disorder with witnessed seizure episode 01/07 Psychiatric disorder Presumed scabies, s/p Rx Thrombocytopenia-transient- resolved PLAN OF CARE JULIANA vent support, pulm toilet ABG stable on current settings, on SIMV mode 450-30-12 PEEP5 , no signs of resp distress on these settings keep settings as is and titrate as needed CXR 01/06 stable pulm toilet via HHN will decrease Theophylline dose to q 12 and get theophylline level in am BCX 1/2 +CONS likely contaminant, off Vanco ; repeated BCX 01/01 and 01/02 NGTD SCX + Proteus , now on Ceftriaxone as per ID recs for poss SBP in setting of GI bleeding BCX 01/01 and 01/02 NGTD stool C dif 01/07 +, started on oral vanco rapid COVID 19 NGT in ED aspiration precautions Venous Duplex BLE -negative, get SCD ( unable to give a/c given anemia) closely monitor hemodynamic status Protonix IV q12 GT feeding PPI stool OB positive transfuse to keep Hgb > 7. heme and GI follows s/p EGD 01/01 -> gastric ulcer across G tube site , no active bleeding HH at baseline monitor for any further episodes of Gi bleeding trend LFT-> trended down, hep panel NGT hx of cirrhosis- per GI management bradycardia resolved with decreased in midodrine dose as per cardio monitor renal parameters, lytes, avoid nephrotoxic BUN trending down, creat stable, likely prerenal due to dehydration replace e/lytes as per nephro recs monitor volumes seizure precautions, antiepileptic optimized as per neuro recs ( due to am witnessed seizure 01/07 lasting for about 2 min) ammonia 49, fup with furtehr neuro recs BP management with current regimen SNF meds supportive care dietary eval s/p 12/31 Rx for presumed scabies with permethrin and Ivermectin, repeat Ivermectin 01/07 case discussed and evaluated by supervising physician Jeyson Anderson MD 01/09/202044: Subjective Allergies: Coded Allergies: CARBAMAZEPINE (Verified Allergy, Unknown, 12/31/19) LORAZEPAM (Verified Allergy, Unknown, 12/31/19) Assessment/Plan Assessment/Plan Patient seen and examined with JOB SITE SUPERVISOR and I agree with the above assessment and plan. Will hold theophylline and likely resume at bid dosing on discharge. Ivanna Mora NP Jan 09, 2020 10:00 Jeyson Anderson MD Jan 09, 2020 20:45
[2020-01-09] MEDS: Gabapentin 300 MG/6 ML Soln GT SCH ×3 (10:03→17:58)
[2020-01-09] MEDS: DOPamine 400mg/250ml 250 ML IV SCH (10:15)
--- NOTE | 2020-01-09 10:40 | Nephrology Progress Note ---
Assessment/Plan Problem List: (1) RICHARD (acute kidney injury) (2) Dehydration (3) Anemia (4) GI bleed (5) Malnutrition (6) Seizure disorder (7) Electrolyte imbalance Assessment Renal failure, in the form of prerenal azotemia, most likely secondary to GI bleed GI bleed, leading to severe anemia Sepsis, pneumonia Chronic tracheostomy, ventilator dependent History of CVA History of seizure disorder History of psychiatric disorder Severe malnutrition Electrolyte abnormalities Plan January 08: Lab reviewed. Renal parameters stable. Continue per consultants. January 07: Lab reviewed. Renal parameters stable. Continue per consultants. January 06: Lab reviewed. Stable from renal standpoint of view. January 05: Labs reviewed. Stable from renal standpoint of view. Continue per consultants. January 04: No labs drawn today. Will check labs tomorrow. Continue per consultants. January 03: Lab reviewed. Renal parameters stable. IV fluid discontinued. High LFTs declining. Continue same. January 02: Lab reviewed. Renal parameters stable. Continue per PMD and consultants. LFTs remain elevated. Continue to monitor. Continue slow hydration Discontinue blood pressure medications as her blood pressure is low Discontinue diuretics Monitor renal parameters Transfusion as needed GI evaluation Correct electrolyte abnormalities Check B12 level, folate, and thyroid function tests: Results noted Subjective ROS Limited/Unobtainable: Yes Objective Objective Last 24 Hour Vital Signs Date Time Temp Pulse Resp B/P (MAP) Pulse Ox O2 Delivery O2 Flow Rate FiO2 01/09/20 08:33 72 01/09/20 08:00 30 01/09/20 08:00 96.0 123 22 125/29 (61) 98 01/09/20 07:15 85 24 30 01/09/20 05:06 76 24 30 01/09/20 04:00 Mechanical Ventilator 01/09/20 04:00 97.8 70 20 99/64 (76) 100 01/09/20 04:00 30 01/09/20 03:35 107 01/09/20 02:35 88 22 30 01/09/20 00:59 84 19 30 01/09/20 00:00 Mechanical Ventilator 01/09/20 00:00 97.9 84 20 111/59 (76) 100 01/08/20 23:33 84 01/08/20 22:47 72 20 30 01/08/20 20:33 64 16 30 01/08/20 20:00 30 01/08/20 20:00 98.1 71 16 100/54 (69) 100 01/08/20 20:00 Mechanical Ventilator 01/08/20 20:00 64 01/08/20 18:46 75 20 30 01/08/20 17:14 107 17 30 01/08/20 16:00 Mechanical Ventilator 01/08/20 16:00 30 01/08/20 16:00 96.8 71 12 98/55 (69) 100 01/08/20 16:00 74 01/08/20 15:21 73 16 30 01/08/20 13:28 65 21 30 01/08/20 12:00 81 01/08/20 12:00 Mechanical Ventilator 01/08/20 12:00 93/56 01/08/20 12:00 97.9 79 18 93/56 (68) 100 01/08/20 12:00 30 01/08/20 11:29 72 16 30 Intake and Output 01/08/20 01/09/20 19:00 07:00 Intake Total 1813.372 ml 1916.011 ml Output Total 780 ml Balance 1033.372 ml 1916.011 ml Intake Free Water 300 ml 320 ml IV Total 1203.372 ml 991.011 ml Tube Feeding 310 ml 605 ml Output Urine Total 750 ml Stool Total 30 ml # Bowel Movements 1 Current Medications Medications (Trade) Dose Ordered Sig/Villa Route PRN Reason Start Time Stop Time Status Last Admin Dose Admin Acetaminophen (Tylenol) 650 mg Q6H PRN GT Temp >100.5 01/01/20 11:00 01/31/20 10:59 01/07/20 08:57 Ascorbic Acid (Vitamin C) 500 mg DAILY ORAL 01/01/20 09:00 01/31/20 08:59 01/09/20 09:55 Ceftriaxone Sodium 1 gm/ Dextrose 55 ml @ 110 mls/hr Q24H IVPB 01/03/20 09:00 01/10/20 08:59 01/09/20 09:54 Dopamine HCl/ Dextrose 250 ml @ 4.031 mls/ hr Q24H IV 01/07/20 10:15 04/05/20 18:59 01/08/20 10:33 Gabapentin (Neurontin) 600 mg TID GT 01/08/20 13:00 02/07/20 12:59 01/09/20 10:03 Haloperidol Lactate (Haldol) 5 mg Q6H PRN IM Agitation 01/01/20 23:30 02/15/20 23:29 01/09/20 09:58 Levetiracetam (Keppra) 1,500 mg Q12HR GT 01/07/20 21:00 02/07/20 08:59 01/09/20 09:55 Levothyroxine Sodium (Synthroid) 75 mcg DAILY ORAL 01/01/20 09:00 01/31/20 08:59 01/09/20 09:57 Loperamide HCl (Imodium) 2 mg Q6H PRN NG Diarrhea 01/07/20 09:45 02/06/20 09:44 01/07/20 18:25 Lorazepam (Ativan 2mg/ml 1ml) 2 mg Q4H PRN IV For Seizures 01/07/20 18:00 01/14/20 17:59 01/08/20 08:20 Midodrine (Pro-Amatine) 2.5 mg THREE TIMES A DAY ORAL 01/07/20 09:00 04/06/20 08:59 01/09/20 09:57 Multivitamins Therapeutic (Therapeutic Multivitamin) 1 ea DAILY ORAL 01/01/20 09:00 01/31/20 08:59 01/09/20 09:55 Ondansetron HCl (Zofran) 4 mg Q6H PRN ORAL Nausea & Vomiting 12/31/19 21:00 01/30/20 20:59 Oxcarbazepine (TrileptaL) 300 mg EVERY 12 HOURS ORAL 01/08/20 21:00 02/07/20 20:59 01/09/20 09:56 Pantoprazole (Protonix) 40 mg EVERY 12 HOURS IVP 01/01/20 09:00 01/31/20 08:59 01/09/20 09:52 Rifaximin (Xifaxan) 550 mg TWICE A DAY ORAL 01/07/20 18:00 02/08/20 08:59 01/09/20 09:57 Sodium Chloride 1,000 ml @ 100 mls/hr Q10H IV 01/08/20 08:00 02/07/20 07:59 01/09/20 04:32 Theophylline (Theophylline) 300 mg Q12HR GT 01/09/20 21:00 04/05/20 18:59 Thiamine HCl (Vitamin B1) 100 mg DAILY ORAL 01/01/20 09:00 01/31/20 08:59 01/09/20 09:55 Vancomycin HCl (Firvanq) 125 mg FOUR TIMES A DAY ORAL 01/08/20 18:00 01/15/20 17:59 01/09/20 09:54 Laboratory Tests 01/09/20 04:50: White Blood Count 11.0H, Red Blood Count 3.15L, Hemoglobin 9.7L, Hematocrit 31.4L, Mean Corpuscular Volume 100H, Mean Corpuscular Hemoglobin 30.8, Mean Corpuscular Hemoglobin Concent 30.9L, Red Cell Distribution Width 17.1H, Platelet Count 371, Mean Platelet Volume 6.3L, Neutrophils (%) (Auto) 67.6, Lymphocytes (%) (Auto) 20.2, Monocytes (%) (Auto) 7.1, Eosinophils (%) (Auto) 1.2, Basophils (%) (Auto) 4.0H Height (Feet): 5 Height (Inches): 1.00 Weight (Pounds): 79 General Appearance: no apparent distress EENT: other - Trach to vent Cardiovascular: normal rate, other - Variable Respiratory/Chest: decreased breath sounds Abdomen: soft Chivo Holloway MD Jan 09, 2020 10:40
[2020-01-09 12:00] VITALS: BP 109/72
--- NOTE | 2020-01-09 12:04 | General Progress Note ---
Assessment/Plan Problem List: (1) G tube feedings ICD Codes: Z93.1 - Gastrostomy status SNOMED: 565032622, 513301509, 535909846 (2) GI bleed ICD Codes: K92.2 - Gastrointestinal hemorrhage, unspecified SNOMED: 09122418 (3) Sepsis ICD Codes: A41.9 - Sepsis, unspecified organism SNOMED: 50873568 (4) Pneumonia ICD Codes: J18.9 - Pneumonia, unspecified organism SNOMED: 549877113 Assessment/Plan: s/p EGD gastric ulcer no recurrent bleed G TF monitor H&H add prn imodium stool for C.diff ppi Subjective ROS Limited/Unobtainable: No Allergies: Coded Allergies: CARBAMAZEPINE (Verified Allergy, Unknown, 12/31/19) LORAZEPAM (Verified Allergy, Unknown, 12/31/19) Objective Last 24 Hour Vital Signs Date Time Temp Pulse Resp B/P (MAP) Pulse Ox O2 Delivery O2 Flow Rate FiO2 01/09/20 08:33 72 01/09/20 08:00 30 01/09/20 08:00 96.0 123 22 125/29 (61) 98 01/09/20 07:15 85 24 30 01/09/20 05:06 76 24 30 01/09/20 04:00 Mechanical Ventilator 01/09/20 04:00 97.8 70 20 99/64 (76) 100 01/09/20 04:00 30 01/09/20 03:35 107 01/09/20 02:35 88 22 30 01/09/20 00:59 84 19 30 01/09/20 00:00 Mechanical Ventilator 01/09/20 00:00 97.9 84 20 111/59 (76) 100 01/08/20 23:33 84 01/08/20 22:47 72 20 30 01/08/20 20:33 64 16 30 01/08/20 20:00 30 01/08/20 20:00 98.1 71 16 100/54 (69) 100 01/08/20 20:00 Mechanical Ventilator 01/08/20 20:00 64 01/08/20 18:46 75 20 30 01/08/20 17:14 107 17 30 01/08/20 16:00 Mechanical Ventilator 01/08/20 16:00 30 01/08/20 16:00 96.8 71 12 98/55 (69) 100 01/08/20 16:00 74 01/08/20 15:21 73 16 30 01/08/20 13:28 65 21 30 Intake and Output 01/08/20 01/09/20 19:00 07:00 Intake Total 1813.372 ml 1916.011 ml Output Total 780 ml Balance 1033.372 ml 1916.011 ml Intake Free Water 300 ml 320 ml IV Total 1203.372 ml 991.011 ml Tube Feeding 310 ml 605 ml Output Urine Total 750 ml Stool Total 30 ml # Bowel Movements 1 Laboratory Tests 01/09/20 04:50: White Blood Count 11.0H, Red Blood Count 3.15L, Hemoglobin 9.7L, Hematocrit 31.4L, Mean Corpuscular Volume 100H, Mean Corpuscular Hemoglobin 30.8, Mean Corpuscular Hemoglobin Concent 30.9L, Red Cell Distribution Width 17.1H, Platelet Count 371, Mean Platelet Volume 6.3L, Neutrophils (%) (Auto) 67.6, Lymphocytes (%) (Auto) 20.2, Monocytes (%) (Auto) 7.1, Eosinophils (%) (Auto) 1.2, Basophils (%) (Auto) 4.0H 01/09/20 11:00: Theophylline Level 25.1H Height (Feet): 5 Height (Inches): 1.00 Weight (Pounds): 79 General Appearance: no apparent distress EENT: normal ENT inspection Neck: supple Cardiovascular: normal rate Respiratory/Chest: decreased breath sounds Abdomen: hypoactive bowel sounds Extremities: non-tender Satish Carrillo MD Jan 09, 2020 12:04
--- NOTE | 2020-01-09 12:52 | Infectious Diseases Prog Note ---
Assessment/Plan 39yo F with: Sepsis Fever to 101.5>>Low grade ; SP Possible pna on CXR Leukocytosis to 24, increased- now improving Cdiff colitis -cdif toxin + Recurrent GIB 01/06 u/aneg 12/30 BCx 1/2 +CONS, likely contaminant 12/30 UA neg, COVID rapid Ag neg 12/30 CXR 1. Density overlying the bilateral lung apices. May represent pleural thickening, multifocal airspace opacities, versus summation artifact. 01/01 BCx Neg 01/02 BCx Neg Possible Scabies SP tx w/ Permethrin and Ivermectin 12/31 R/o DVT: None on US 12/30 MRSA nares neg Recurrent GIBs, FOBT+ Hepatic encephalopathy, chronic S/p Trach/PEG Resides at SNF Plan: Start PO Vancomycin 125mg PO qid #2/10 for cdiff Cont CTX 1g IV daily #7/7 for SBP ppx in the setting of GIB 01/02 SP vanco #2, Zosyn #2 Repeat 2nd dose of ivermectin today (01/08) Monitor CBC/CMP Monitor resp status Monitor temp and hemodynamics contact isolation Thank you for this consult. [facility] will continue to follow. Subjective Allergies: Coded Allergies: CARBAMAZEPINE (Verified Allergy, Unknown, 12/31/19) LORAZEPAM (Verified Allergy, Unknown, 12/31/19) afebrile >48 hrs wbc improving no leukocytosis Objective Last 24 Hour Vital Signs Date Time Temp Pulse Resp B/P (MAP) Pulse Ox O2 Delivery O2 Flow Rate FiO2 01/09/20 11:10 84 23 30 01/09/20 08:33 72 01/09/20 08:00 30 01/09/20 08:00 96.0 123 22 125/29 (61) 98 01/09/20 07:15 85 24 30 01/09/20 05:06 76 24 30 01/09/20 04:00 Mechanical Ventilator 01/09/20 04:00 97.8 70 20 99/64 (76) 100 01/09/20 04:00 30 01/09/20 03:35 107 01/09/20 02:35 88 22 30 01/09/20 00:59 84 19 30 01/09/20 00:00 Mechanical Ventilator 01/09/20 00:00 97.9 84 20 111/59 (76) 100 01/08/20 23:33 84 01/08/20 22:47 72 20 30 01/08/20 20:33 64 16 30 01/08/20 20:00 30 01/08/20 20:00 98.1 71 16 100/54 (69) 100 01/08/20 20:00 Mechanical Ventilator 01/08/20 20:00 64 01/08/20 18:46 75 20 30 01/08/20 17:14 107 17 30 01/08/20 16:00 Mechanical Ventilator 01/08/20 16:00 30 01/08/20 16:00 96.8 71 12 98/55 (69) 100 01/08/20 16:00 74 01/08/20 15:21 73 16 30 01/08/20 13:28 65 21 30 Height (Feet): 5 Height (Inches): 1.00 Weight (Pounds): 79 General Appearance: no apparent distress EENT: normal ENT inspection Neck: supple Cardiovascular: normal rate Respiratory/Chest: decreased breath sounds Abdomen: hypoactive bowel sounds Extremities: non-tender Microbiology Date/Time Source Procedure Growth Status 01/07/20 08:40 Stool Clostridium difficile Toxin Assay - Final Complete Laboratory Tests Test 01/09/20 04:50 01/09/20 11:00 White Blood Count 11.0 K/UL (4.8-10.8) H Red Blood Count 3.15 M/UL (4.20-5.40) L Hemoglobin 9.7 G/DL (12.0-16.0) L Hematocrit 31.4 % (37.0-47.0) L Mean Corpuscular Volume 100 FL (80-99) H Mean Corpuscular Hemoglobin 30.8 PG (27.0-31.0) Mean Corpuscular Hemoglobin Concent 30.9 G/DL (32.0-36.0) L Red Cell Distribution Width 17.1 % (11.6-14.8) H Platelet Count 371 K/UL (150-450) Mean Platelet Volume 6.3 FL (6.5-10.1) L Neutrophils (%) (Auto) 67.6 % (45.0-75.0) Lymphocytes (%) (Auto) 20.2 % (20.0-45.0) Monocytes (%) (Auto) 7.1 % (1.0-10.0) Eosinophils (%) (Auto) 1.2 % (0.0-3.0) Basophils (%) (Auto) 4.0 % (0.0-2.0) H Theophylline Level 25.1 ug/mL (10-20) H Current Medications Medications (Trade) Dose Ordered Sig/Villa Route PRN Reason Start Time Stop Time Status Last Admin Dose Admin Acetaminophen (Tylenol) 650 mg Q6H PRN GT Temp >100.5 01/01/20 11:00 01/31/20 10:59 01/07/20 08:57 Ascorbic Acid (Vitamin C) 500 mg DAILY ORAL 01/01/20 09:00 01/31/20 08:59 01/09/20 09:55 Ceftriaxone Sodium 1 gm/ Dextrose 55 ml @ 110 mls/hr Q24H IVPB 01/03/20 09:00 01/10/20 08:59 01/09/20 09:54 Dopamine HCl/ Dextrose 250 ml @ 4.031 mls/ hr Q24H IV 01/07/20 10:15 04/05/20 18:59 01/08/20 10:33 Gabapentin (Neurontin) 600 mg TID GT 01/08/20 13:00 02/07/20 12:59 01/09/20 10:03 Haloperidol Lactate (Haldol) 5 mg Q6H PRN IM Agitation 01/01/20 23:30 02/15/20 23:29 01/09/20 09:58 Levetiracetam (Keppra) 1,500 mg Q12HR GT 01/07/20 21:00 02/07/20 08:59 01/09/20 09:55 Levothyroxine Sodium (Synthroid) 75 mcg DAILY ORAL 01/01/20 09:00 01/31/20 08:59 01/09/20 09:57 Loperamide HCl (Imodium) 2 mg Q6H PRN NG Diarrhea 01/07/20 09:45 02/06/20 09:44 01/07/20 18:25 Lorazepam (Ativan 2mg/ml 1ml) 2 mg Q4H PRN IV For Seizures 01/07/20 18:00 01/14/20 17:59 01/08/20 08:20 Midodrine (Pro-Amatine) 2.5 mg THREE TIMES A DAY ORAL 01/07/20 09:00 04/06/20 08:59 01/09/20 09:57 Multivitamins Therapeutic (Therapeutic Multivitamin) 1 ea DAILY ORAL 01/01/20 09:00 01/31/20 08:59 01/09/20 09:55 Ondansetron HCl (Zofran) 4 mg Q6H PRN ORAL Nausea & Vomiting 12/31/19 21:00 01/30/20 20:59 Oxcarbazepine (TrileptaL) 300 mg EVERY 12 HOURS ORAL 01/08/20 21:00 02/07/20 20:59 01/09/20 09:56 Pantoprazole (Protonix) 40 mg EVERY 12 HOURS IVP 01/01/20 09:00 01/31/20 08:59 01/09/20 09:52 Rifaximin (Xifaxan) 550 mg TWICE A DAY ORAL 01/07/20 18:00 02/08/20 08:59 01/09/20 09:57 Sodium Chloride 1,000 ml @ 100 mls/hr Q10H IV 01/08/20 08:00 02/07/20 07:59 01/09/20 04:32 Theophylline (Theophylline) 300 mg Q12HR GT 01/09/20 21:00 04/05/20 18:59 Thiamine HCl (Vitamin B1) 100 mg DAILY ORAL 01/01/20 09:00 01/31/20 08:59 01/09/20 09:55 Vancomycin HCl (Firvanq) 125 mg FOUR TIMES A DAY ORAL 01/08/20 18:00 01/15/20 17:59 01/09/20 09:54 Char Morel M.D. Jan 09, 2020 12:52
--- NOTE | 2020-01-09 14:00 | Surgery Progress Note ---
Surgery Progress Note Subjective Additional Comments improved comfortable labs reviewed Objective Last 24 Hour Vital Signs Date Time Temp Pulse Resp B/P (MAP) Pulse Ox O2 Delivery O2 Flow Rate FiO2 01/09/20 12:00 96.0 124 27 109/72 (84) 100 01/09/20 12:00 30 01/09/20 11:10 84 23 30 01/09/20 10:15 125/29 01/09/20 08:33 72 01/09/20 08:00 30 01/09/20 08:00 96.9 123 22 125/59 (81) 98 01/09/20 07:15 85 24 30 01/09/20 05:06 76 24 30 01/09/20 04:00 Mechanical Ventilator 01/09/20 04:00 97.8 70 20 99/64 (76) 100 01/09/20 04:00 30 01/09/20 03:35 107 01/09/20 02:35 88 22 30 01/09/20 00:59 84 19 30 01/09/20 00:00 Mechanical Ventilator 01/09/20 00:00 97.9 84 20 111/59 (76) 100 01/08/20 23:33 84 01/08/20 22:47 72 20 30 01/08/20 20:33 64 16 30 01/08/20 20:00 30 01/08/20 20:00 98.1 71 16 100/54 (69) 100 01/08/20 20:00 Mechanical Ventilator 01/08/20 20:00 64 01/08/20 18:46 75 20 30 01/08/20 17:14 107 17 30 01/08/20 16:00 Mechanical Ventilator 01/08/20 16:00 30 01/08/20 16:00 96.8 71 12 98/55 (69) 100 01/08/20 16:00 74 01/08/20 15:21 73 16 30 I&O Intake and Output 01/08/20 01/09/20 19:00 07:00 Intake Total 1813.372 ml 1916.011 ml Output Total 780 ml Balance 1033.372 ml 1916.011 ml Intake Free Water 300 ml 320 ml IV Total 1203.372 ml 991.011 ml Tube Feeding 310 ml 605 ml Output Urine Total 750 ml Stool Total 30 ml # Bowel Movements 1 Dressing: other Wound: other Cardiovascular: RSR Respiratory: decreased breath sounds Abdomen: soft, non-tender, present bowel sounds Extremities: no tenderness, no cyanosis Laboratory Tests Test 01/09/20 04:50 01/09/20 11:00 White Blood Count 11.0 K/UL (4.8-10.8) H Red Blood Count 3.15 M/UL (4.20-5.40) L Hemoglobin 9.7 G/DL (12.0-16.0) L Hematocrit 31.4 % (37.0-47.0) L Mean Corpuscular Volume 100 FL (80-99) H Mean Corpuscular Hemoglobin 30.8 PG (27.0-31.0) Mean Corpuscular Hemoglobin Concent 30.9 G/DL (32.0-36.0) L Red Cell Distribution Width 17.1 % (11.6-14.8) H Platelet Count 371 K/UL (150-450) Mean Platelet Volume 6.3 FL (6.5-10.1) L Neutrophils (%) (Auto) 67.6 % (45.0-75.0) Lymphocytes (%) (Auto) 20.2 % (20.0-45.0) Monocytes (%) (Auto) 7.1 % (1.0-10.0) Eosinophils (%) (Auto) 1.2 % (0.0-3.0) Basophils (%) (Auto) 4.0 % (0.0-2.0) H Theophylline Level 25.1 ug/mL (10-20) H Plan Problems: (1) Pneumonia (2) Sepsis Assessment & Plan: leukocytosis anemia lactic acidosis agree with GI recommend EGD planned for 12/31 hold feeding for now trend h/h monitor for bleeding no acute hemorrhage will be available in event needs exploration for hemostasis prbc as per heme thank you will follow with recs cont abx Pt presented on admission in emaciated state. Pt has tracheostomy and GT. NO skin concerns noted to skin under collar of trach. NO erythema or evidence of skin erosion at GT site. Pt noted to have scaly pimple-like rash with webbing noted to R and L axillae, undersides of both breasts, Bilat groin and lower back. Tracking and webbing noted to hands and feet. Pt restless and scratching at skin. Non-Blanching erythema without induration or fluctuance noted to R and L hips and trochanteric areas.Non-blanching erythema noted along spine. Non-Blanching erythema without induration noted to Sacrum. Non-Blanching erythema noted to R and L Malleoli and both heels. Tx.Plan: Please apply Cavilon Skin Barrier to each bony Prominences at risks for Skin Breakdown. Cover each area with Optifoam drsgs. Change every 7 days and prn. Apply Moisture Barrier Paste to Sacrum. Cover with Optifoam drsg. Change every 3 days and prn. Reposition at least every 2hours or as tolerated. Off-load heels with pillow. APM/EMELI Mattress overlay. improving cont current care plan (3) GI bleed (4) G tube feedings Assessment & Plan: DAILY ESTIMATED NEEDS: Needs based on Underweight, critical care 37.3kg 30-40 kcals/kg 6242-4779 total kcals 1.25-2 g protein/kg 47-75 g total protein 25-35 mL/kg 933-1306 total fluid mLs NUTRITION DIAGNOSIS: Increased kcal and pro needs r/t underweight status as evidenced by BMI 14.1, pt is 68% of ideal body weight w/ generalized severe wasting, trach and peg dep. CURRENT TF:Vital AF 1.2 @55 x20 hrs ENTERAL NUTRITION RECOMMENDATIONS: Vital AF 1.2 @ 55ml/hr x20 hrs to provide 1100ml 1320kcal 83g prot, 892ml free water - Rec to continue elemental TF formula while stool C-diff positive, +LBM - HOLD 1HR BEFORE AND AFTER SYNTHROID MEDS - Flush per HOB over 30 degrees ADDITIONAL RECOMMENDATIONS: 1) Per SNF: 5'4" and 81# Maintain calibrated bed scale wts w/ added P200 mattress 2) Lytes daily madhav w/ loose stools, replete as needed 3) Skin integrity: Continue BRIAN VIA GT BID + Vit C 4) Accuchecks for Hypoglycemia 5) Add probiotics for stool C-diff+ . George Woods Jan 09, 2020 14:00
[2020-01-09 16:00] VITALS: BP 120/63
[2020-01-09] MEDS ORDERED: NS 500ML ONE (16:10)
[2020-01-09] MEDS ORDERED: Tubing IV Secondary IV ONE (16:10)
--- NOTE | 2020-01-09 19:56 | Pulmonology Progress Note ---
Subjective ROS Limited/Unobtainable: No Respiratory: Denies: no symptoms, dry cough, productive cough, sputum, hemoptysis, shortness of breath, dyspnea at rest, dyspnea on exertion, wheezing , pleuritic pain, other Gastrointestinal/Abdominal: Denies: no symptoms, nausea, vomiting, diarrhea, constipation, blood in stool, bloating, other Neurologic: Denies: no symptoms, headache, numbness, weakness, confusion, syncope, seizures, other Allergies: Coded Allergies: CARBAMAZEPINE (Verified Allergy, Unknown, 12/31/19) LORAZEPAM (Verified Allergy, Unknown, 12/31/19) All Systems: reviewed and negative except above Subjective Height: 15 April response and obesity he did not have any seizure today EEG was planned today EEG dictation, is yet. Patient has been seen today with a neurologist who in addition to EEG ordered MRI of the brain is unclear how can this be performed inpatient on ventilator. Objective Laboratory Tests Test 01/09/20 04:50 01/09/20 11:00 White Blood Count 11.0 K/UL (4.8-10.8) H Red Blood Count 3.15 M/UL (4.20-5.40) L Hemoglobin 9.7 G/DL (12.0-16.0) L Hematocrit 31.4 % (37.0-47.0) L Mean Corpuscular Volume 100 FL (80-99) H Mean Corpuscular Hemoglobin 30.8 PG (27.0-31.0) Mean Corpuscular Hemoglobin Concent 30.9 G/DL (32.0-36.0) L Red Cell Distribution Width 17.1 % (11.6-14.8) H Platelet Count 371 K/UL (150-450) Mean Platelet Volume 6.3 FL (6.5-10.1) L Neutrophils (%) (Auto) 67.6 % (45.0-75.0) Lymphocytes (%) (Auto) 20.2 % (20.0-45.0) Monocytes (%) (Auto) 7.1 % (1.0-10.0) Eosinophils (%) (Auto) 1.2 % (0.0-3.0) Basophils (%) (Auto) 4.0 % (0.0-2.0) H Theophylline Level 25.1 ug/mL (10-20) H Last 24 Hour Vital Signs Date Time Temp Pulse Resp B/P (MAP) Pulse Ox O2 Delivery O2 Flow Rate FiO2 01/09/20 18:44 80 23 30 01/09/20 16:53 120 01/09/20 16:00 98.2 117 23 120/63 (82) 100 01/09/20 16:00 30 01/09/20 16:00 Mechanical Ventilator 15.0 01/09/20 15:05 78 26 30 01/09/20 12:00 96.0 124 27 109/72 (84) 100 01/09/20 12:00 30 01/09/20 12:00 Mechanical Ventilator 15.0 01/09/20 12:00 119 01/09/20 11:10 84 23 30 01/09/20 10:15 125/29 01/09/20 08:33 72 01/09/20 08:00 30 01/09/20 08:00 96.9 123 22 125/59 (81) 98 01/09/20 08:00 Mechanical Ventilator 15.0 01/09/20 07:15 85 24 30 01/09/20 05:06 76 24 30 01/09/20 04:00 Mechanical Ventilator 01/09/20 04:00 97.8 70 20 99/64 (76) 100 01/09/20 04:00 30 01/09/20 03:35 107 01/09/20 02:35 88 22 30 01/09/20 00:59 84 19 30 01/09/20 00:00 Mechanical Ventilator 01/09/20 00:00 97.9 84 20 111/59 (76) 100 01/08/20 23:33 84 01/08/20 22:47 72 20 30 01/08/20 20:33 64 16 30 01/08/20 20:00 30 01/08/20 20:00 98.1 71 16 100/54 (69) 100 01/08/20 20:00 Mechanical Ventilator 01/08/20 20:00 64 Intake and Output 01/08/20 01/09/20 19:00 07:00 Intake Total 1813.372 ml 1916.011 ml Output Total 780 ml Balance 1033.372 ml 1916.011 ml Intake Free Water 300 ml 320 ml IV Total 1203.372 ml 991.011 ml Tube Feeding 310 ml 605 ml Output Urine Total 750 ml Stool Total 30 ml # Bowel Movements 1 HEENT: normocephalic, mucous membranes moist, supple, no JVD Respiratory: lungs clear Cardiovascular: normal rate, regular rhythm, tachycardia Abdomen: soft, non tender, no mass Extremities: no cyanosis, no clubbing, no edema Neurologic: alert, aphasia Microbiology Date/Time Source Procedure Growth Status 01/07/20 08:40 Stool Clostridium difficile Toxin Assay - Final Complete Laboratory Tests 01/09/20 04:50: White Blood Count 11.0H, Red Blood Count 3.15L, Hemoglobin 9.7L, Hematocrit 31.4L, Mean Corpuscular Volume 100H, Mean Corpuscular Hemoglobin 30.8, Mean Corpuscular Hemoglobin Concent 30.9L, Red Cell Distribution Width 17.1H, Platelet Count 371, Mean Platelet Volume 6.3L, Neutrophils (%) (Auto) 67.6, Lymphocytes (%) (Auto) 20.2, Monocytes (%) (Auto) 7.1, Eosinophils (%) (Auto) 1.2, Basophils (%) (Auto) 4.0H 01/09/20 11:00: Theophylline Level 25.1H Current Medications Medications (Trade) Dose Ordered Sig/Villa Route PRN Reason Start Time Stop Time Status Last Admin Dose Admin Acetaminophen (Tylenol) 650 mg Q6H PRN GT Temp >100.5 01/01/20 11:00 01/31/20 10:59 01/07/20 08:57 Ascorbic Acid (Vitamin C) 500 mg DAILY ORAL 01/01/20 09:00 01/31/20 08:59 01/09/20 09:55 Dopamine HCl/ Dextrose 250 ml @ 4.031 mls/ hr Q24H IV 01/07/20 10:15 04/05/20 18:59 01/08/20 10:33 Gabapentin (Neurontin) 600 mg TID GT 01/08/20 13:00 02/07/20 12:59 01/09/20 17:58 Haloperidol Lactate (Haldol) 5 mg Q6H PRN IM Agitation 01/01/20 23:30 02/15/20 23:29 01/09/20 09:58 Levetiracetam (Keppra) 1,500 mg Q12HR GT 01/07/20 21:00 9/23/20 08:59 01/09/20 09:55 Levothyroxine Sodium (Synthroid) 75 mcg DAILY ORAL 01/01/20 09:00 01/31/20 08:59 01/09/20 09:57 Loperamide HCl (Imodium) 2 mg Q6H PRN NG Diarrhea 01/07/20 09:45 02/06/20 09:44 01/07/20 18:25 Lorazepam (Ativan 2mg/ml 1ml) 2 mg Q4H PRN IV For Seizures 01/07/20 18:00 01/14/20 17:59 01/08/20 08:20 Midodrine (Pro-Amatine) 2.5 mg THREE TIMES A DAY ORAL 01/07/20 09:00 04/06/20 08:59 01/09/20 17:57 Multivitamins Therapeutic (Therapeutic Multivitamin) 1 ea DAILY ORAL 01/01/20 09:00 01/31/20 08:59 01/09/20 09:55 Ondansetron HCl (Zofran) 4 mg Q6H PRN ORAL Nausea & Vomiting 12/31/19 21:00 01/30/20 20:59 Oxcarbazepine (TrileptaL) 300 mg EVERY 12 HOURS ORAL 01/08/20 21:00 02/07/20 20:59 01/09/20 09:56 Pantoprazole (Protonix) 40 mg EVERY 12 HOURS IVP 01/01/20 09:00 01/31/20 08:59 01/09/20 09:52 Rifaximin (Xifaxan) 550 mg TWICE A DAY ORAL 01/07/20 18:00 02/08/20 08:59 01/09/20 17:57 Sodium Chloride 1,000 ml @ 100 mls/hr Q10H IV 01/08/20 08:00 02/07/20 07:59 01/09/20 16:53 Theophylline (Theophylline) 300 mg Q12HR GT 01/09/20 21:00 04/05/20 18:59 Thiamine HCl (Vitamin B1) 100 mg DAILY ORAL 01/01/20 09:00 01/31/20 08:59 01/09/20 09:55 Vancomycin HCl (Firvanq) 125 mg FOUR TIMES A DAY ORAL 01/08/20 18:00 01/15/20 17:59 01/09/20 17:57 Assessment/Plan Assessment/Plan Patient is currently on 2 antiseizure is levetiracetam 1500 mg twice daily Trileptal 3 mg twice daily we are waiting for the EEG for the suspicion control on seizure illness bradycardia could be a problem appeared to be resolved with patient knowing consistently tachycardic. Is on dopamine drip and is a patient on therapy and unchanged the effectiveness of theophylline to prevent bradycardia Glenny Alarcon MD, MD Jan 09, 2020 19:56
[2020-01-09 20:00] VITALS: BP 128/69
[2020-01-09] MEDS ORDERED: Theophylline 80mg/15ml GT SCH (21:00)
--- NOTE | 2020-01-09 23:46 | Psych Consult Progress Note ---
Psychiatry Progress Note Psychiatry Progress Note Subjective the pt cont to benefits from restraints she is more alert and has episodes of agitation the pt attempts to pull out lines. awake confused ativan was given iv Medications Current Medications Medications (Trade) Dose Ordered Sig/Villa Route PRN Reason Start Time Stop Time Status Last Admin Dose Admin Acetaminophen (Tylenol) 650 mg Q6H PRN GT Temp >100.5 01/01/20 11:00 01/31/20 10:59 01/07/20 08:57 Ascorbic Acid (Vitamin C) 500 mg DAILY ORAL 01/01/20 09:00 01/31/20 08:59 01/09/20 09:55 Dopamine HCl/ Dextrose 250 ml @ 4.031 mls/ hr Q24H IV 01/07/20 10:15 04/05/20 18:59 01/08/20 10:33 Gabapentin (Neurontin) 600 mg TID GT 01/08/20 13:00 02/07/20 12:59 01/09/20 17:58 Haloperidol Lactate (Haldol) 5 mg Q6H PRN IM Agitation 01/01/20 23:30 02/15/20 23:29 01/09/20 09:58 Levetiracetam (Keppra) 1,500 mg Q12HR GT 01/07/20 21:00 02/07/20 08:59 01/09/20 20:21 Levothyroxine Sodium (Synthroid) 75 mcg DAILY ORAL 01/01/20 09:00 01/31/20 08:59 01/09/20 09:57 Loperamide HCl (Imodium) 2 mg Q6H PRN NG Diarrhea 01/07/20 09:45 02/06/20 09:44 01/07/20 18:25 Lorazepam (Ativan 2mg/ml 1ml) 2 mg Q4H PRN IV For Seizures 01/07/20 18:00 01/14/20 17:59 01/08/20 08:20 Midodrine (Pro-Amatine) 2.5 mg THREE TIMES A DAY ORAL 01/07/20 09:00 04/06/20 08:59 01/09/20 17:57 Multivitamins Therapeutic (Therapeutic Multivitamin) 1 ea DAILY ORAL 01/01/20 09:00 01/31/20 08:59 01/09/20 09:55 Ondansetron HCl (Zofran) 4 mg Q6H PRN ORAL Nausea & Vomiting 12/31/19 21:00 01/30/20 20:59 Oxcarbazepine (TrileptaL) 300 mg EVERY 12 HOURS ORAL 01/08/20 21:00 02/07/20 20:59 01/09/20 20:20 Pantoprazole (Protonix) 40 mg EVERY 12 HOURS IVP 01/01/20 09:00 01/31/20 08:59 01/09/20 20:21 Rifaximin (Xifaxan) 550 mg TWICE A DAY ORAL 01/07/20 18:00 02/08/20 08:59 01/09/20 17:57 Sodium Chloride 1,000 ml @ 100 mls/hr Q10H IV 01/08/20 08:00 02/07/20 07:59 01/09/20 16:53 Thiamine HCl (Vitamin B1) 100 mg DAILY ORAL 01/01/20 09:00 01/31/20 08:59 01/09/20 09:55 Vancomycin HCl (Firvanq) 125 mg FOUR TIMES A DAY ORAL 01/08/20 18:00 01/15/20 17:59 01/09/20 20:21 Neurological/Psychiatric: Denies: no symptoms, anxiety, depressed, emotional problems, headache, numbness, paresthesia, pre-existing deficit, seizure, tingling, tremors, weakness, other Allergies: Coded Allergies: CARBAMAZEPINE (Verified Allergy, Unknown, 12/31/19) LORAZEPAM (Verified Allergy, Unknown, 12/31/19) Objective Data Height (Feet): 5 Height (Inches): 1.00 Weight (Pounds): 79 General Appearance: no apparent distress Additional Comments: waxing and waning consciousness. Affect is flat. Thought process, there is a paucity of thought content. Thought content, no suicidal or homicidal ideation. Cognition is impaired. Insight and judgment is impaired. Assessment/Plan Assessment/Plan: Rhonda Lagos MD Jan 09, 2020 23:46
[2020-01-10] VITALS: BP 110/60
[2020-01-10 04:00] VITALS: BP 120/72
[2020-01-10 05:45] LABS: BASOPHILS % (AUTO) 1.1 % (0.0-2.0); EOSINOPHILS % (AUTO) 4.2 % (0.0-3.0); HEMATOCRIT 26.8 % (37.0-47.0); HEMOGLOBIN 8.5 G/DL (12.0-16.0); LYMPHOCYTES % (AUTO) 19.7 % (20.0-45.0); MEAN CORPUSCULAR VOLUME 96 FL (80-99); MONOCYTES % (AUTO) 9.4 % (1.0-10.0); NEUTROPHILS % (AUTO) 65.6 % (45.0-75.0); PLATELET COUNT 339 K/UL (150-450); RED BLOOD COUNT 2.79 M/UL (4.20-5.40); RED CELL DISTRIBUTION WIDTH 16.3 % (11.6-14.8); WHITE BLOOD COUNT 9.5 K/UL (4.8-10.8)
[2020-01-10 05:52] LABS: ANION GAP 8 mmol/L (5-15); BLOOD UREA NITROGEN 19 mg/dL (7-18); CALCIUM 8.9 MG/DL (8.5-10.1); CARBON DIOXIDE 26 MMOL/L (21-32); CHLORIDE 107 MMOL/L (98-107); CREATININE 0.5 MG/DL (0.55-1.30); POTASSIUM 3.3 MMOL/L (3.5-5.1); SODIUM 141 MMOL/L (136-145)
--- NOTE | 2020-01-10 07:42 | Hematology/Onc Progress Note ---
Assessment/Plan Assessment/Plan # Thrombocytopenia med related v labs error --> plt trend 167-->61-->227 --> meds have been reviewed --> no hep or lovenox (if less than 50k plt) # Anemia rule out underlying gi bleed --> Dr. Carrillo has been consulted-->endosco gastric ulceration --> trend hgb 7-->7.4-->7.9-->8.1->9.6-->8.5 --> anemia panel ordered-->reviewed --> prn transfusion --> protonix started # Leukocytosis is likely related to pna on imaging --> abx has been started --> if wbc worsens, consider abx vanc/zosyn--> ceftriaxone --> smear is noted --> wbc 25-->15-->14-->16 # Sepsis --> on abx for pna # Pneumonia --> pulm, Dr. 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 learning and development consultant care, will follow Subjective HEENT: Denies: no symptoms, eye pain, blurred vision, tearing, double vision, ear pain, ear discharge, nose pain, nose congestion, throat pain, throat swelling, mouth pain, mouth swelling, other Cardiovascular: Denies: no symptoms, chest pain, edema, irregular heart rate, lightheadedness, palpitations, syncope, other Respiratory: Denies: no symptoms, cough, shortness of breath, SOB with excertion, SOB at rest, sputum, wheezing, other Gastrointestinal/Abdominal: Denies: no symptoms, abdomen distended, abdominal pain, black stools, tarry stools, blood in stool, constipated, diarrhea, difficulty swallowing, nausea, poor appetite, poor fluid intake, rectal bleeding , vomiting, other Genitourinary: Denies: no symptoms, burning, discharge, frequency, flank pain, hematuria, incontinence, pain, urgency, other Neurologic/Psychiatric: Denies: no symptoms, anxiety, depressed, emotional problems, headache, numbness, paresthesia, pre-existing deficit, seizure, tingling, tremors, weakness, other Endocrine: Denies: no symptoms, excessive sweating, flushing, intolerance to cold, intolerance to heat, increased hunger, increased thirst, increased urine, unexplained weight gain, unexplained weight loss, other Allergies: Coded Allergies: CARBAMAZEPINE (Verified Allergy, Unknown, 12/31/19) LORAZEPAM (Verified Allergy, Unknown, 12/31/19) Subjective 01/01 altered, trach, no bleedin wbc improved on abx, seen by gi 01/02 egd study noted, also with plts 61k, have vitaly Armendariz Rn, will recheck cbc 01/03 remains agitated, vitaly rn, no bleeding, cbc noted as well as id recs 01/04 on vent, with melena overnight, no bleeding, vitaly rn, labs reviewed 01/06 on vent, remains agitated, no bleeding, vitaly rn, smear is noted 01/07 on vent, restless, asymptomatic, noncooperative 01/[address] John obtained, reviewed, meds adjusted, eeg pending 01/09 labs noted, no bleeding, ativan has been discontinued, meds reviewed Objective Objective Current Medications Medications (Trade) Dose Ordered Sig/Villa Route PRN Reason Start Time Stop Time Status Last Admin Dose Admin Acetaminophen (Tylenol) 650 mg Q6H PRN GT Temp >100.5 01/01/20 11:00 01/31/20 10:59 01/07/20 08:57 Ascorbic Acid (Vitamin C) 500 mg DAILY ORAL 01/01/20 09:00 01/31/20 08:59 01/09/20 09:55 Dopamine HCl/ Dextrose 250 ml @ 4.031 mls/ hr Q24H IV 01/07/20 10:15 04/05/20 18:59 01/08/20 10:33 Gabapentin (Neurontin) 600 mg TID GT 01/08/20 13:00 02/07/20 12:59 01/09/20 17:58 Haloperidol Lactate (Haldol) 5 mg Q6H PRN IM Agitation 01/01/20 23:30 02/15/20 23:29 01/09/20 09:58 Levetiracetam (Keppra) 1,500 mg Q12HR GT 01/07/20 21:00 02/07/20 08:59 01/09/20 20:21 Levothyroxine Sodium (Synthroid) 75 mcg DAILY ORAL 01/01/20 09:00 01/31/20 08:59 01/09/20 09:57 Loperamide HCl (Imodium) 2 mg Q6H PRN NG Diarrhea 01/07/20 09:45 02/06/20 09:44 01/07/20 18:25 Midodrine (Pro-Amatine) 2.5 mg THREE TIMES A DAY ORAL 01/07/20 09:00 04/06/20 08:59 01/09/20 17:57 Multivitamins Therapeutic (Therapeutic Multivitamin) 1 ea DAILY ORAL 01/01/20 09:00 01/31/20 08:59 01/09/20 09:55 Ondansetron HCl (Zofran) 4 mg Q6H PRN ORAL Nausea & Vomiting 12/31/19 21:00 01/30/20 20:59 Oxcarbazepine (TrileptaL) 300 mg EVERY 12 HOURS ORAL 01/08/20 21:00 02/07/20 20:59 01/09/20 20:20 Pantoprazole (Protonix) 40 mg EVERY 12 HOURS IVP 01/01/20 09:00 01/31/20 08:59 01/09/20 20:21 Rifaximin (Xifaxan) 550 mg TWICE A DAY ORAL 01/07/20 18:00 02/08/20 08:59 01/09/20 17:57 Sodium Chloride 1,000 ml @ 100 mls/hr Q10H IV 01/08/20 08:00 02/07/20 07:59 01/09/20 23:57 Thiamine HCl (Vitamin B1) 100 mg DAILY ORAL 01/01/20 09:00 01/31/20 08:59 01/09/20 09:55 Vancomycin HCl (Firvanq) 125 mg FOUR TIMES A DAY ORAL 01/08/20 18:00 01/15/20 17:59 01/09/20 20:21 Last 24 Hour Vital Signs Date Time Temp Pulse Resp B/P (MAP) Pulse Ox O2 Delivery O2 Flow Rate FiO2 01/10/20 07:12 69 19 30 01/10/20 05:10 84 21 30 01/10/20 04:00 30 01/10/20 04:00 Mechanical Ventilator 15.0 01/10/20 04:00 98.8 100 20 120/72 (88) 100 01/10/20 03:52 86 01/10/20 02:53 86 22 30 01/10/20 01:15 89 17 30 01/10/20 00:00 Mechanical Ventilator 15.0 01/10/20 00:00 98.9 95 20 110/60 (77) 100 01/09/20 23:28 94 01/09/20 22:42 78 21 30 01/09/20 20:54 74 20 30 01/09/20 20:00 98.2 102 20 128/69 (88) 100 01/09/20 20:00 Mechanical Ventilator 15.0 01/09/20 20:00 30 01/09/20 19:39 108 01/09/20 19:00 128/69 01/09/20 18:44 80 23 30 01/09/20 16:53 120 01/09/20 16:00 98.2 117 23 120/63 (82) 100 01/09/20 16:00 30 01/09/20 16:00 Mechanical Ventilator 15.0 01/09/20 15:05 78 26 30 01/09/20 12:00 96.0 124 27 109/72 (84) 100 01/09/20 12:00 30 01/09/20 12:00 Mechanical Ventilator 15.0 01/09/20 12:00 119 01/09/20 11:10 84 23 30 01/09/20 10:15 125/29 01/09/20 08:33 72 01/09/20 08:00 30 01/09/20 08:00 96.9 123 22 125/59 (81) 98 01/09/20 08:00 Mechanical Ventilator 15.0 01/09/20 07:15 85 24 30 01/09/20 05:06 76 24 30 01/09/20 04:00 Mechanical Ventilator 01/09/20 04:00 97.8 70 20 99/64 (76) 100 01/09/20 04:00 30 01/09/20 03:35 107 01/09/20 02:35 88 22 30 01/09/20 00:59 84 19 30 01/09/20 00:00 Mechanical Ventilator 01/09/20 00:00 97.9 84 20 111/59 (76) 100 01/08/20 23:33 84 01/08/20 22:47 72 20 30 8/24/20 20:33 64 16 30 01/08/20 20:00 30 01/08/20 20:00 98.1 71 16 100/54 (69) 100 01/08/20 20:00 Mechanical Ventilator 01/08/20 20:00 64 01/08/20 18:46 75 20 30 01/08/20 17:14 107 17 30 01/08/20 16:00 Mechanical Ventilator 01/08/20 16:00 30 01/08/20 16:00 96.8 71 12 98/55 (69) 100 01/08/20 16:00 74 01/08/20 15:21 73 16 30 01/08/20 13:28 65 21 30 01/08/20 12:00 81 01/08/20 12:00 Mechanical Ventilator 01/08/20 12:00 93/56 01/08/20 12:00 97.9 79 18 93/56 (68) 100 01/08/20 12:00 30 01/08/20 11:29 72 16 30 01/08/20 10:33 103/61 01/08/20 09:15 68 16 30 01/08/20 09:15 100 01/08/20 08:00 97.9 104 18 112/62 (79) 98 01/08/20 08:00 Mechanical Ventilator 01/08/20 08:00 30 01/08/20 08:00 112/62 01/08/20 08:00 123 Intake and Output 01/09/20 01/10/20 19:00 07:00 Intake Total 2163.372 ml 2053.372 ml Output Total 775 ml Balance 1388.372 ml 2053.372 ml Intake Free Water 300 ml 300 ml IV Total 603.372 ml 1148.372 ml Tube Feeding 660 ml 605 ml Other 600 ml Output Urine Total 500 ml Stool Total 275 ml # Bowel Movements 3 3 Labs Test 01/07/20 09:20 01/08/20 06:07 01/08/20 10:00 01/09/20 04:50 Urine Color Pale yellow Urine Appearance Clear Urine pH 8.0 (4.5-8.0) Urine Specific [place] 1.005 (1.005-1.035) Urine Protein Negative (NEGATIVE) Urine Glucose (UA) Negative (NEGATIVE) Urine Ketones Negative (NEGATIVE) Urine Blood Negative (NEGATIVE) Urine Nitrite Negative (NEGATIVE) Urine Bilirubin Negative (NEGATIVE) Urine Urobilinogen Normal MG/DL (0.0-1.0) Urine Leukocyte Esterase Negative (NEGATIVE) White Blood Count 11.6 K/UL (4.8-10.8) 11.0 K/UL (4.8-10.8) Red Blood Count 3.12 M/UL (4.20-5.40) 3.15 M/UL (4.20-5.40) Hemoglobin 9.7 G/DL (12.0-16.0) 9.7 G/DL (12.0-16.0) Hematocrit 30.2 % (37.0-47.0) 31.4 % (37.0-47.0) Mean Corpuscular Volume 97 FL (80-99) 100 FL (80-99) Mean Corpuscular Hemoglobin 31.0 PG (27.0-31.0) 30.8 PG (27.0-31.0) Mean Corpuscular Hemoglobin Concent 32.1 G/DL (32.0-36.0) 30.9 G/DL (32.0-36.0) Red Cell Distribution Width 16.6 % (11.6-14.8) 17.1 % (11.6-14.8) Platelet Count 351 K/UL (150-450) 371 K/UL (150-450) Mean Platelet Volume 6.6 FL (6.5-10.1) 6.3 FL (6.5-10.1) Neutrophils (%) (Auto) 73.6 % (45.0-75.0) 67.6 % (45.0-75.0) Lymphocytes (%) (Auto) 18.3 % (20.0-45.0) 20.2 % (20.0-45.0) Monocytes (%) (Auto) 6.2 % (1.0-10.0) 7.1 % (1.0-10.0) Eosinophils (%) (Auto) 1.2 % (0.0-3.0) 1.2 % (0.0-3.0) Basophils (%) (Auto) 0.8 % (0.0-2.0) 4.0 % (0.0-2.0) Ammonia 49 umol/L (11-32) Test 01/09/20 11:00 01/10/20 04:55 Theophylline Level 25.1 ug/mL (10-20) White Blood Count 9.5 K/UL (4.8-10.8) Red Blood Count 2.79 M/UL (4.20-5.40) Hemoglobin 8.5 G/DL (12.0-16.0) Hematocrit 26.8 % (37.0-47.0) Mean Corpuscular Volume 96 FL (80-99) Mean Corpuscular Hemoglobin 30.4 PG (27.0-31.0) Mean Corpuscular Hemoglobin Concent 31.6 G/DL (32.0-36.0) Red Cell Distribution Width 16.3 % (11.6-14.8) Platelet Count 339 K/UL (150-450) Mean Platelet Volume 6.4 FL (6.5-10.1) Neutrophils (%) (Auto) 65.6 % (45.0-75.0) Lymphocytes (%) (Auto) 19.7 % (20.0-45.0) Monocytes (%) (Auto) 9.4 % (1.0-10.0) Eosinophils (%) (Auto) 4.2 % (0.0-3.0) Basophils (%) (Auto) 1.1 % (0.0-2.0) Sodium Level 141 MMOL/L (136-145) Potassium Level 3.3 MMOL/L (3.5-5.1) Chloride Level 107 MMOL/L (98-107) Carbon Dioxide Level 26 MMOL/L (21-32) Anion Gap 8 mmol/L (5-15) Blood Urea Nitrogen 19 mg/dL (7-18) Creatinine 0.5 MG/DL (0.55-1.30) Estimat Glomerular Filtration Rate > 60 mL/min (>60) Glucose Level 104 MG/DL (74-106) Calcium Level 8.9 MG/DL (8.5-10.1) Height (Feet): 5 Height (Inches): 1.00 Weight (Pounds): 80 Objective Vital Signs General Appearance: ++ cachectic, chronically ill HEENT: normocephalic, atraumatic ++ trach Resp: other -. vent Cardiovascular: regular rate, rhythm, no edema Gastrointestinal: gtube in place, without erythema Rectal: other - Hemoccult positive [place]: back normal, gait/station normal, non-tender Lymphatic: no adenopathy Baltazar Cortes MD Jan 10, 2020 07:42
[2020-01-10 08:00] VITALS: BP 130/61
[2020-01-10] MEDS: Haloperidol 5mg/ml Inj IM PRN ×3 (08:00→21:00)
--- NOTE | 2020-01-10 09:05 | General Progress Note ---
Assessment/Plan Problem List: (1) G tube feedings ICD Codes: Z93.1 - Gastrostomy status SNOMED: 521457131, 475322254, 434817375 (2) GI bleed ICD Codes: K92.2 - Gastrointestinal hemorrhage, unspecified SNOMED: 05262053 (3) Sepsis ICD Codes: A41.9 - Sepsis, unspecified organism SNOMED: 14510645 (4) Pneumonia ICD Codes: J18.9 - Pneumonia, unspecified organism SNOMED: 825125988 Assessment/Plan: s/p EGD gastric ulcer no recurrent bleed G TF monitor H&H add prn imodium ppi Subjective ROS Limited/Unobtainable: No Allergies: Coded Allergies: CARBAMAZEPINE (Verified Allergy, Unknown, 12/31/19) LORAZEPAM (Verified Allergy, Unknown, 12/31/19) Objective Last 24 Hour Vital Signs Date Time Temp Pulse Resp B/P (MAP) Pulse Ox O2 Delivery O2 Flow Rate FiO2 01/10/20 07:12 69 19 30 01/10/20 05:10 84 21 30 01/10/20 04:00 30 01/10/20 04:00 Mechanical Ventilator 15.0 01/10/20 04:00 98.8 100 20 120/72 (88) 100 01/10/20 03:52 86 01/10/20 02:53 86 22 30 01/10/20 01:15 89 17 30 01/10/20 00:00 Mechanical Ventilator 15.0 01/10/20 00:00 98.9 95 20 110/60 (77) 100 01/09/20 23:28 94 01/09/20 22:42 78 21 30 01/09/20 20:54 74 20 30 01/09/20 20:00 98.2 102 20 128/69 (88) 100 01/09/20 20:00 Mechanical Ventilator 15.0 01/09/20 20:00 30 01/09/20 19:39 108 01/09/20 19:00 128/69 01/09/20 18:44 80 23 30 01/09/20 16:53 120 01/09/20 16:00 98.2 117 23 120/63 (82) 100 01/09/20 16:00 30 01/09/20 16:00 Mechanical Ventilator 15.0 01/09/20 15:05 78 26 30 01/09/20 12:00 96.0 124 27 109/72 (84) 100 01/09/20 12:00 30 01/09/20 12:00 Mechanical Ventilator 15.0 01/09/20 12:00 119 01/09/20 11:10 84 23 30 01/09/20 10:15 125/29 Intake and Output 01/09/20 01/10/20 19:00 07:00 Intake Total 2163.372 ml 2157.403 ml Output Total 775 ml Balance 1388.372 ml 2157.403 ml Intake Free Water 300 ml 300 ml IV Total 603.372 ml 1252.403 ml Tube Feeding 660 ml 605 ml Other 600 ml Output Urine Total 500 ml Stool Total 275 ml # Bowel Movements 3 3 Laboratory Tests 01/09/20 11:00: Theophylline Level 25.1H 01/10/20 04:55: White Blood Count 9.5, Red Blood Count 2.79L, Hemoglobin 8.5L, Hematocrit 26.8L , Mean Corpuscular Volume 96, Mean Corpuscular Hemoglobin 30.4, Mean Corpuscular Hemoglobin Concent 31.6L, Red Cell Distribution Width 16.3H, Platelet Count 339, Mean Platelet Volume 6.4L, Neutrophils (%) (Auto) 65.6, Lymphocytes (%) (Auto) 19.7L, Monocytes (%) (Auto) 9.4, Eosinophils (%) (Auto) 4.2H, Basophils (%) (Auto) 1.1, Sodium Level 141, Potassium Level 3.3L, Chloride Level 107, Carbon Dioxide Level 26, Anion Gap 8, Blood Urea Nitrogen 19H, Creatinine 0.5L, Estimat Glomerular Filtration Rate > 60, Glucose Level 104 , Calcium Level 8.9 Height (Feet): 5 Height (Inches): 1.00 Weight (Pounds): 80 General Appearance: no apparent distress EENT: normal ENT inspection Neck: supple Cardiovascular: normal rate Respiratory/Chest: decreased breath sounds Abdomen: hypoactive bowel sounds Extremities: non-tender Satish Carrillo MD Jan 10, 2020 09:05
--- NOTE | 2020-01-10 09:08 | General Progress Note ---
Assessment/Plan Problem List: (1) G tube feedings ICD Codes: Z93.1 - Gastrostomy status SNOMED: 970049348, 276899432, 330117152 (2) GI bleed ICD Codes: K92.2 - Gastrointestinal hemorrhage, unspecified SNOMED: 47972219 (3) Sepsis ICD Codes: A41.9 - Sepsis, unspecified organism SNOMED: 37778977 (4) Pneumonia ICD Codes: J18.9 - Pneumonia, unspecified organism SNOMED: 293653706 Assessment/Plan: s/p EGD gastric ulcer no recurrent bleed G TF monitor H&H C. Diff positive dc ppi add vanco add pepcid will fu Subjective ROS Limited/Unobtainable: No Allergies: Coded Allergies: CARBAMAZEPINE (Verified Allergy, Unknown, 12/31/19) LORAZEPAM (Verified Allergy, Unknown, 12/31/19) Objective Last 24 Hour Vital Signs Date Time Temp Pulse Resp B/P (MAP) Pulse Ox O2 Delivery O2 Flow Rate FiO2 01/10/20 07:12 69 19 30 01/10/20 05:10 84 21 30 01/10/20 04:00 30 01/10/20 04:00 Mechanical Ventilator 15.0 01/10/20 04:00 98.8 100 20 120/72 (88) 100 01/10/20 03:52 86 01/10/20 02:53 86 22 30 01/10/20 01:15 89 17 30 01/10/20 00:00 Mechanical Ventilator 15.0 01/10/20 00:00 98.9 95 20 110/60 (77) 100 01/09/20 23:28 94 01/09/20 22:42 78 21 30 01/09/20 20:54 74 20 30 01/09/20 20:00 98.2 102 20 128/69 (88) 100 01/09/20 20:00 Mechanical Ventilator 15.0 01/09/20 20:00 30 01/09/20 19:39 108 01/09/20 19:00 128/69 01/09/20 18:44 80 23 30 01/09/20 16:53 120 01/09/20 16:00 98.2 117 23 120/63 (82) 100 01/09/20 16:00 30 01/09/20 16:00 Mechanical Ventilator 15.0 01/09/20 15:05 78 26 30 01/09/20 12:00 96.0 124 27 109/72 (84) 100 01/09/20 12:00 30 01/09/20 12:00 Mechanical Ventilator 15.0 01/09/20 12:00 119 01/09/20 11:10 84 23 30 01/09/20 10:15 125/29 Intake and Output 01/09/20 01/10/20 19:00 07:00 Intake Total 2163.372 ml 2157.403 ml Output Total 775 ml Balance 1388.372 ml 2157.403 ml Intake Free Water 300 ml 300 ml IV Total 603.372 ml 1252.403 ml Tube Feeding 660 ml 605 ml Other 600 ml Output Urine Total 500 ml Stool Total 275 ml # Bowel Movements 3 3 Laboratory Tests 01/09/20 11:00: Theophylline Level 25.1H 01/10/20 04:55: White Blood Count 9.5, Red Blood Count 2.79L, Hemoglobin 8.5L, Hematocrit 26.8L , Mean Corpuscular Volume 96, Mean Corpuscular Hemoglobin 30.4, Mean Corpuscular Hemoglobin Concent 31.6L, Red Cell Distribution Width 16.3H, Platelet Count 339, Mean Platelet Volume 6.4L, Neutrophils (%) (Auto) 65.6, Lymphocytes (%) (Auto) 19.7L, Monocytes (%) (Auto) 9.4, Eosinophils (%) (Auto) 4.2H, Basophils (%) (Auto) 1.1, Sodium Level 141, Potassium Level 3.3L, Chloride Level 107, Carbon Dioxide Level 26, Anion Gap 8, Blood Urea Nitrogen 19H, Creatinine 0.5L, Estimat Glomerular Filtration Rate > 60, Glucose Level 104 , Calcium Level 8.9 Height (Feet): 5 Height (Inches): 1.00 Weight (Pounds): 80 General Appearance: no apparent distress EENT: normal ENT inspection Neck: supple Cardiovascular: normal rate Abdomen: hypoactive bowel sounds Extremities: non-tender Satish Carrillo MD Jan 10, 2020 09:08
[2020-01-10] MEDS: Thiamine 100mg tab ORAL SCH (09:42)
[2020-01-10] MEDS: Gabapentin 300 MG/6 ML Soln GT SCH ×3 (09:42→18:25)
[2020-01-10] MEDS: Ascorbic Acid 500mg tab ORAL SCH (09:43)
[2020-01-10] MEDS: OXcarbazepine 150mg tab ORAL SCH ×2 (09:43→20:59)
[2020-01-10] MEDS: Multivitamin w/Minerals tab ORAL SCH (09:43)
[2020-01-10] MEDS: levETIRAcetam 500mg/5ml Liquid GT SCH ×2 (09:44→20:58)
[2020-01-10] MEDS: DOPamine 400mg/250ml 250 ML IV SCH (09:58)
--- NOTE | 2020-01-10 10:34 | Nephrology Progress Note ---
Assessment/Plan Problem List: (1) RICHARD (acute kidney injury) (2) Dehydration (3) Anemia (4) GI bleed (5) Malnutrition (6) Seizure disorder (7) Electrolyte imbalance Assessment Renal failure, in the form of prerenal azotemia, most likely secondary to GI bleed GI bleed, leading to severe anemia Sepsis, pneumonia Chronic tracheostomy, ventilator dependent History of CVA History of seizure disorder History of psychiatric disorder Severe malnutrition Electrolyte abnormalities Plan January 09: Lab reviewed. Potassium supplement given. IV fluid discontinued. January 08: Lab reviewed. Renal parameters stable. Continue per consultants. January 07: Lab reviewed. Renal parameters stable. Continue per consultants. January 06: Lab reviewed. Stable from renal standpoint of view. January 05: Labs reviewed. Stable from renal standpoint of view. Continue per consultants. January 04: No labs drawn today. Will check labs tomorrow. Continue per consultants. January 03: Lab reviewed. Renal parameters stable. IV fluid discontinued. High LFTs declining. Continue same. January 02: Lab reviewed. Renal parameters stable. Continue per PMD and consultants. LFTs remain elevated. Continue to monitor. Continue slow hydration Discontinue blood pressure medications as her blood pressure is low Discontinue diuretics Monitor renal parameters Transfusion as needed GI evaluation Correct electrolyte abnormalities Check B12 level, folate, and thyroid function tests: Results noted Subjective ROS Limited/Unobtainable: Yes Objective Objective Last 24 Hour Vital Signs Date Time Temp Pulse Resp B/P (MAP) Pulse Ox O2 Delivery O2 Flow Rate FiO2 01/10/20 09:58 120/72 01/10/20 09:12 76 19 30 01/10/20 09:11 100 01/10/20 08:00 Mechanical Ventilator 15.0 01/10/20 08:00 30 01/10/20 07:12 69 19 30 01/10/20 05:10 84 21 30 01/10/20 04:00 30 01/10/20 04:00 Mechanical Ventilator 15.0 01/10/20 04:00 98.8 100 20 120/72 (88) 100 01/10/20 03:52 86 01/10/20 02:53 86 22 30 01/10/20 01:15 89 17 30 01/10/20 00:00 Mechanical Ventilator 15.0 01/10/20 00:00 98.9 95 20 110/60 (77) 100 01/09/20 23:28 94 01/09/20 22:42 78 21 30 01/09/20 20:54 74 20 30 01/09/20 20:00 98.2 102 20 128/69 (88) 100 01/09/20 20:00 Mechanical Ventilator 15.0 01/09/20 20:00 30 01/09/20 19:39 108 01/09/20 19:00 128/69 01/09/20 18:44 80 23 30 01/09/20 16:53 120 01/09/20 16:00 98.2 117 23 120/63 (82) 100 01/09/20 16:00 30 01/09/20 16:00 Mechanical Ventilator 15.0 01/09/20 15:05 78 26 30 01/09/20 12:00 96.0 124 27 109/72 (84) 100 01/09/20 12:00 30 01/09/20 12:00 Mechanical Ventilator 15.0 01/09/20 12:00 119 01/09/20 11:10 84 23 30 Intake and Output 01/09/20 01/10/20 19:00 07:00 Intake Total 2163.372 ml 2161.434 ml Output Total 775 ml Balance 1388.372 ml 2161.434 ml Intake Free Water 300 ml 300 ml IV Total 603.372 ml 1256.434 ml Tube Feeding 660 ml 605 ml Other 600 ml Output Urine Total 500 ml Stool Total 275 ml # Bowel Movements 3 3 Laboratory Tests 01/09/20 11:00: Theophylline Level 25.1H 01/10/20 04:55: White Blood Count 9.5, Red Blood Count 2.79L, Hemoglobin 8.5L, Hematocrit 26.8L , Mean Corpuscular Volume 96, Mean Corpuscular Hemoglobin 30.4, Mean Corpuscular Hemoglobin Concent 31.6L, Red Cell Distribution Width 16.3H, Platelet Count 339, Mean Platelet Volume 6.4L, Neutrophils (%) (Auto) 65.6, Lymphocytes (%) (Auto) 19.7L, Monocytes (%) (Auto) 9.4, Eosinophils (%) (Auto) 4.2H, Basophils (%) (Auto) 1.1, Sodium Level 141, Potassium Level 3.3L, Chloride Level 107, Carbon Dioxide Level 26, Anion Gap 8, Blood Urea Nitrogen 19H, Creatinine 0.5L, Estimat Glomerular Filtration Rate > 60, Glucose Level 104 , Calcium Level 8.9 Height (Feet): 5 Height (Inches): 1.00 Weight (Pounds): 80 General Appearance: no apparent distress EENT: other - On mechanical ventilation Cardiovascular: normal rate Respiratory/Chest: decreased breath sounds Abdomen: soft Chivo Holloway MD Jan 10, 2020 10:34
--- NOTE | 2020-01-10 10:39 | Pulmonology Progress Note ---
Ivanna Mora LACE MACHINE OPERATOR 01/10/20 1039: Subjective ROS Limited/Unobtainable: Yes Respiratory: Denies: no symptoms, dry cough, productive cough, sputum, hemoptysis, shortness of breath, dyspnea at rest, dyspnea on exertion, wheezing , pleuritic pain, other Gastrointestinal/Abdominal: Denies: no symptoms, nausea, vomiting, diarrhea, constipation, blood in stool, bloating, other Neurologic: Denies: no symptoms, headache, numbness, weakness, confusion, syncope, seizures, other Allergies: Coded Allergies: CARBAMAZEPINE (Verified Allergy, Unknown, 12/31/19) LORAZEPAM (Verified Allergy, Unknown, 12/31/19) All Systems: reviewed and negative except above Subjective no signs of resp distress on current settings remains afebrile, mild leukocytosis resolved CXR 01/06 stable ABG stable on SIMV mode stool C dif + 01/07 started on po Vanco episode of witnessed seizure 01/07, and questionable seizure activity during EEG Objective Last 24 Hour Vital Signs Date Time Temp Pulse Resp B/P (MAP) Pulse Ox O2 Delivery O2 Flow Rate FiO2 01/10/20 09:58 120/72 01/10/20 09:12 76 19 30 01/10/20 09:11 100 01/10/20 08:00 Mechanical Ventilator 15.0 01/10/20 08:00 30 01/10/20 07:12 69 19 30 01/10/20 05:10 84 21 30 01/10/20 04:00 30 01/10/20 04:00 Mechanical Ventilator 15.0 01/10/20 04:00 98.8 100 20 120/72 (88) 100 01/10/20 03:52 86 01/10/20 02:53 86 22 30 01/10/20 01:15 89 17 30 01/10/20 00:00 Mechanical Ventilator 15.0 01/10/20 00:00 98.9 95 20 110/60 (77) 100 01/09/20 23:28 94 01/09/20 22:42 78 21 30 01/09/20 20:54 74 20 30 01/09/20 20:00 98.2 102 20 128/69 (88) 100 01/09/20 20:00 Mechanical Ventilator 15.0 01/09/20 20:00 30 01/09/20 19:39 108 01/09/20 19:00 128/69 01/09/20 18:44 80 23 30 01/09/20 16:53 120 01/09/20 16:00 98.2 117 23 120/63 (82) 100 01/09/20 16:00 30 01/09/20 16:00 Mechanical Ventilator 15.0 01/09/20 15:05 78 26 30 01/09/20 12:00 96.0 124 27 109/72 (84) 100 01/09/20 12:00 30 01/09/20 12:00 Mechanical Ventilator 15.0 01/09/20 12:00 119 01/09/20 11:10 84 23 30 Intake and Output 01/09/20 01/10/20 19:00 07:00 Intake Total 2163.372 ml 2161.434 ml Output Total 775 ml Balance 1388.372 ml 2161.434 ml Intake Free Water 300 ml 300 ml IV Total 603.372 ml 1256.434 ml Tube Feeding 660 ml 605 ml Other 600 ml Output Urine Total 500 ml Stool Total 275 ml # Bowel Movements 3 3 Objective General Appearance: bedridden, pale, chronically ill looking, older than her biological age ; vent dependent female ; on vent SIMV 450-30%-12, PEEP 5 Lines, tubes and drains: peripheral, trach HEENT: normocephalic, atraumatic Neck: trach - Portex #7, secretions small amount, yellow color, thin consistency Respiratory/Chest: CTAB Cardiovascular/Chest: normal rate, regular rhythm Abdomen: non tender, soft, G tube Genitourinary/Rectal: [place] Extremities: no edema, muscle atrophy Neurologic: abnormal gait, poorly responsive, more awake , eyes open Musculoskeletal: atrophy Skin: multiple tattoos HEENT: normocephalic, mucous membranes moist, supple, no JVD Respiratory: lungs clear Cardiovascular: normal rate, regular rhythm, tachycardia Abdomen: soft, non tender, no mass Extremities: no cyanosis, no clubbing, no edema Neurologic: alert, aphasia Laboratory Tests 01/09/20 11:00: Theophylline Level 25.1H 01/10/20 04:55: White Blood Count 9.5, Red Blood Count 2.79L, Hemoglobin 8.5L, Hematocrit 26.8L , Mean Corpuscular Volume 96, Mean Corpuscular Hemoglobin 30.4, Mean Corpuscular Hemoglobin Concent 31.6L, Red Cell Distribution Width 16.3H, Platelet Count 339, Mean Platelet Volume 6.4L, Neutrophils (%) (Auto) 65.6, Lymphocytes (%) (Auto) 19.7L, Monocytes (%) (Auto) 9.4, Eosinophils (%) (Auto) 4.2H, Basophils (%) (Auto) 1.1, Sodium Level 141, Potassium Level 3.3L, Chloride Level 107, Carbon Dioxide Level 26, Anion Gap 8, Blood Urea Nitrogen 19H, Creatinine 0.5L, Estimat Glomerular Filtration Rate > 60, Glucose Level 104 , Calcium Level 8.9 Current Medications Medications (Trade) Dose Ordered Sig/Villa Route PRN Reason Start Time Stop Time Status Last Admin Dose Admin Acetaminophen (Tylenol) 650 mg Q6H PRN GT Temp >100.5 01/01/20 11:00 01/31/20 10:59 01/07/20 08:57 Ascorbic Acid (Vitamin C) 500 mg DAILY ORAL 01/01/20 09:00 01/31/20 08:59 01/10/20 09:43 Dopamine HCl/ Dextrose 250 ml @ 4.031 mls/ hr Q24H IV 01/07/20 10:15 04/05/20 18:59 01/08/20 10:33 Famotidine (Pepcid) 20 mg BID ORAL 01/10/20 18:00 04/09/20 17:59 Gabapentin (Neurontin) 600 mg TID GT 01/08/20 13:00 02/07/20 12:59 01/10/20 09:42 Haloperidol Lactate (Haldol) 5 mg Q6H PRN IM Agitation 01/01/20 23:30 02/15/20 23:29 01/10/20 08:00 Levetiracetam (Keppra) 1,500 mg Q12HR GT 01/07/20 21:00 02/07/20 08:59 01/10/20 09:44 Levothyroxine Sodium (Synthroid) 75 mcg DAILY ORAL 01/01/20 09:00 01/31/20 08:59 01/10/20 09:44 Loperamide HCl (Imodium) 2 mg Q6H PRN NG Diarrhea 01/07/20 09:45 02/06/20 09:44 01/07/20 18:25 Midodrine (Pro-Amatine) 2.5 mg THREE TIMES A DAY ORAL 01/07/20 09:00 04/06/20 08:59 01/10/20 09:42 Multivitamins Therapeutic (Therapeutic Multivitamin) 1 ea DAILY ORAL 01/01/20 09:00 01/31/20 08:59 01/10/20 09:43 Ondansetron HCl (Zofran) 4 mg Q6H PRN ORAL Nausea & Vomiting 12/31/19 21:00 01/30/20 20:59 Oxcarbazepine (TrileptaL) 300 mg EVERY 12 HOURS ORAL 01/08/20 21:00 02/07/20 20:59 01/10/20 09:43 Potassium Chloride 100 ml @ 50 mls/hr ONCE ONCE IVPB 01/10/20 10:30 01/10/20 12:29 UNV Thiamine HCl (Vitamin B1) 100 mg DAILY ORAL 01/01/20 09:00 01/31/20 08:59 01/10/20 09:42 Vancomycin HCl (Firvanq) 125 mg FOUR TIMES A DAY ORAL 01/10/20 13:00 01/17/20 12:59 Assessment/Plan Assessment/Plan ASSESSMENT VDRF/trach status Sepsis Possible pneumonia recurrent GI bleeding C dif colitis Anemia secondary to GI bleeding Aspiration risk Dysphagia, feeding by G-tube Chronic encephalopathy Acute kidney injury likely secondary to dehydration Bradycardia-resolved Electrolyte imbalance Severe protein calorie malnutrition Hypertension History of CVA Seizure disorder with witnessed seizure episode 01/07 Psychiatric disorder Presumed scabies, s/p Rx Thrombocytopenia-transient- resolved PLAN OF CARE JULIANA vent support, pulm toilet ABG stable on current settings, on SIMV mode 450-30-12 PEEP5 , no signs of resp distress on these settings keep settings as is and titrate as needed CXR 01/06 stable pulm toilet via HHN Theophylline level high -25; discontinue BCX 1/2 +CONS likely contaminant, off Vanco ; repeated BCX 01/01 and 01/02 NGTD SCX + Proteus , now on Ceftriaxone as per ID recs for poss SBP in setting of GI bleeding BCX 01/01 and 01/02 NGTD stool C dif 01/07 +, on oral vanco rapid COVID 19 NGT in ED aspiration precautions Venous Duplex BLE -negative, get SCD ( unable to give a/c given anemia) closely monitor hemodynamic status Protonix IV q12 GT feeding PPI stool OB positive transfuse to keep Hgb > 7. heme and GI follows s/p EGD 01/01 -> gastric ulcer across G tube site , no active bleeding HH at baseline monitor for any further episodes of Gi bleeding trend LFT-> trended down, hep panel NGT hx of cirrhosis- per GI management bradycardia resolved with decreased in midodrine dose as per cardio monitor renal parameters, lytes, avoid nephrotoxic BUN trending down, creat stable, likely prerenal due to dehydration replace e/lytes as per nephro recs monitor volumes seizure precautions, antiepileptic optimized as per neuro recs ( due to am witnessed seizure 01/07 lasting for about 2 min) ammonia 49, fup with further neuro recs EGD MRI BP management with current regimen SNF meds supportive care dietary eval s/p 12/31 Rx for presumed scabies with permethrin and Ivermectin, repeated Ivermectin 01/08 case discussed and evaluated by supervising physician Jeyson Anderson MD 01/10/20 1423: Subjective Allergies: Coded Allergies: CARBAMAZEPINE (Verified Allergy, Unknown, 12/31/19) LORAZEPAM (Verified Allergy, Unknown, 12/31/19) Assessment/Plan Assessment/Plan Patient seen and examined with LACE MACHINE OPERATOR and I agree with the above assessment and plan. Ivanna Mora NP Jan 10, 2020 10:39 Jeyson Anderson MD Jan 10, 2020 14:23
[2020-01-10 12:00] VITALS: BP 120/74
[2020-01-10] MEDS: Vancomycin oral 125mg/2.5ml ORAL SCH ×3 (12:36→20:59)
--- NOTE | 2020-01-10 12:49 | Surgery Progress Note ---
Surgery Progress Note Subjective Additional Comments no acute event labs reviewed no n/v/f/c Objective Last 24 Hour Vital Signs Date Time Temp Pulse Resp B/P (MAP) Pulse Ox O2 Delivery O2 Flow Rate FiO2 01/10/20 12:00 30 01/10/20 12:00 Mechanical Ventilator 15.0 01/10/20 11:05 78 19 30 01/10/20 09:58 120/72 01/10/20 09:12 76 19 30 01/10/20 09:11 100 01/10/20 08:00 64 01/10/20 08:00 Mechanical Ventilator 15.0 01/10/20 08:00 96.8 69 18 130/61 (84) 98 01/10/20 08:00 30 01/10/20 07:12 69 19 30 01/10/20 05:10 84 21 30 01/10/20 04:00 30 01/10/20 04:00 Mechanical Ventilator 15.0 01/10/20 04:00 98.8 100 20 120/72 (88) 100 01/10/20 03:52 86 01/10/20 02:53 86 22 30 01/10/20 01:15 89 17 30 01/10/20 00:00 Mechanical Ventilator 15.0 01/10/20 00:00 98.9 95 20 110/60 (77) 100 01/09/20 23:28 94 01/09/20 22:42 78 21 30 01/09/20 20:54 74 20 30 01/09/20 20:00 98.2 102 20 128/69 (88) 100 01/09/20 20:00 Mechanical Ventilator 15.0 01/09/20 20:00 30 01/09/20 19:39 108 01/09/20 19:00 128/69 01/09/20 18:44 80 23 30 01/09/20 16:53 120 01/09/20 16:00 98.2 117 23 120/63 (82) 100 01/09/20 16:00 30 01/09/20 16:00 Mechanical Ventilator 15.0 01/09/20 15:05 78 26 30 I&O Intake and Output 01/09/20 01/10/20 19:00 07:00 Intake Total 2163.372 ml 2161.434 ml Output Total 775 ml Balance 1388.372 ml 2161.434 ml Intake Free Water 300 ml 300 ml IV Total 603.372 ml 1256.434 ml Tube Feeding 660 ml 605 ml Other 600 ml Output Urine Total 500 ml Stool Total 275 ml # Bowel Movements 3 3 Dressing: other Wound: other Cardiovascular: RSR Respiratory: decreased breath sounds Abdomen: soft, non-tender, present bowel sounds Extremities: no tenderness, no cyanosis, other Laboratory Tests Test 01/10/20 04:55 White Blood Count 9.5 K/UL (4.8-10.8) Red Blood Count 2.79 M/UL (4.20-5.40) L Hemoglobin 8.5 G/DL (12.0-16.0) L Hematocrit 26.8 % (37.0-47.0) L Mean Corpuscular Volume 96 FL (80-99) Mean Corpuscular Hemoglobin 30.4 PG (27.0-31.0) Mean Corpuscular Hemoglobin Concent 31.6 G/DL (32.0-36.0) L Red Cell Distribution Width 16.3 % (11.6-14.8) H Platelet Count 339 K/UL (150-450) Mean Platelet Volume 6.4 FL (6.5-10.1) L Neutrophils (%) (Auto) 65.6 % (45.0-75.0) Lymphocytes (%) (Auto) 19.7 % (20.0-45.0) L Monocytes (%) (Auto) 9.4 % (1.0-10.0) Eosinophils (%) (Auto) 4.2 % (0.0-3.0) H Basophils (%) (Auto) 1.1 % (0.0-2.0) Sodium Level 141 MMOL/L (136-145) Potassium Level 3.3 MMOL/L (3.5-5.1) L Chloride Level 107 MMOL/L (98-107) Carbon Dioxide Level 26 MMOL/L (21-32) Anion Gap 8 mmol/L (5-15) Blood Urea Nitrogen 19 mg/dL (7-18) H Creatinine 0.5 MG/DL (0.55-1.30) L Estimat Glomerular Filtration Rate > 60 mL/min (>60) Glucose Level 104 MG/DL (74-106) Calcium Level 8.9 MG/DL (8.5-10.1) Plan Problems: (1) Pneumonia (2) Sepsis Assessment & Plan: leukocytosis anemia lactic acidosis agree with GI recommend EGD planned for 12/31 hold feeding for now trend h/h monitor for bleeding no acute hemorrhage will be available in event needs exploration for hemostasis prbc as per heme thank you will follow with recs cont abx Pt presented on admission in emaciated state. Pt has tracheostomy and GT. NO skin concerns noted to skin under collar of trach. NO erythema or evidence of skin erosion at GT site. Pt noted to have scaly pimple-like rash with webbing noted to R and L axillae, undersides of both breasts, Bilat groin and lower back. Tracking and webbing noted to hands and feet. Pt restless and scratching at skin. Non-Blanching erythema without induration or fluctuance noted to R and L hips and trochanteric areas.Non-blanching erythema noted along spine. Non-Blanching erythema without induration noted to Sacrum. Non-Blanching erythema noted to R and L Malleoli and both heels. Tx.Plan: Please apply Cavilon Skin Barrier to each bony Prominences at risks for Skin Breakdown. Cover each area with Optifoam drsgs. Change every 7 days and prn. Apply Moisture Barrier Paste to Sacrum. Cover with Optifoam drsg. Change every 3 days and prn. Reposition at least every 2hours or as tolerated. Off-load heels with pillow. APM/EMELI Mattress overlay. improving cont current care plan (3) GI bleed (4) G tube feedings Assessment & Plan: DAILY ESTIMATED NEEDS: Needs based on Underweight, critical care 37.3kg 30-40 kcals/kg 3302-0159 total kcals 1.25-2 g protein/kg 47-75 g total protein 25-35 mL/kg 933-1306 total fluid mLs NUTRITION DIAGNOSIS: Increased kcal and pro needs r/t underweight status as evidenced by BMI 14.1, pt is 68% of ideal body weight w/ generalized severe wasting, trach and peg dep. CURRENT TF:Vital AF 1.2 @55 x20 hrs ENTERAL NUTRITION RECOMMENDATIONS: Vital AF 1.2 @ 55ml/hr x20 hrs to provide 1100ml 1320kcal 83g prot, 892ml free water - Rec to continue elemental TF formula while stool C-diff positive, +LBM - HOLD 1HR BEFORE AND AFTER SYNTHROID MEDS - Flush per MD. HOB over 30 degrees ADDITIONAL RECOMMENDATIONS: 1) Per SNF: 5'4" and 81# Maintain calibrated bed scale wts w/ added P200 mattress 2) Lytes daily madhav w/ loose stools, replete as needed 3) Skin integrity: Continue BRIAN VIA GT BID + Vit C 4) Accuchecks for Hypoglycemia 5) Add probiotics for stool C-diff+ . [place] Jan 10, 2020 12:49
--- NOTE | 2020-01-10 13:19 | Infectious Diseases Prog Note ---
Assessment/Plan 39yo F with: Sepsis Fever to 101.5>>Low grade ; SP Possible pna on CXR Leukocytosis to 24, now resolved Cdiff colitis -cdif toxin + Recurrent GIB 01/06 u/aneg 12/30 BCx 1/2 +CONS, likely contaminant 12/30 UA neg, COVID rapid Ag neg 12/30 CXR 1. Density overlying the bilateral lung apices. May represent pleural thickening, multifocal airspace opacities, versus summation artifact. 01/01 BCx Neg 01/02 BCx Neg Possible Scabies SP tx w/ Permethrin and Ivermectin 12/31 R/o DVT: None on US 12/30 MRSA nares neg Recurrent GIBs, FOBT+ Hepatic encephalopathy, chronic S/p Trach/PEG Resides at SNF Plan: Cont PO Vancomycin 125mg PO qid #3/10 for cdiff 01/08 SP Ceftriaxone #7 01/02 SP vanco #2, Zosyn #2 Repeat 2nd dose of ivermectin today (01/08) Monitor CBC/CMP Monitor resp status Monitor temp and hemodynamics contact isolation Thank you for this consult. [facility] will continue to follow. Subjective Allergies: Coded Allergies: CARBAMAZEPINE (Verified Allergy, Unknown, 12/31/19) LORAZEPAM (Verified Allergy, Unknown, 12/31/19) afebrile >72 hrs leukocytosis resolved Objective Last 24 Hour Vital Signs Date Time Temp Pulse Resp B/P (MAP) Pulse Ox O2 Delivery O2 Flow Rate FiO2 01/10/20 12:47 63 19 30 01/10/20 12:00 66 01/10/20 12:00 30 01/10/20 12:00 Mechanical Ventilator 15.0 01/10/20 12:00 98.8 89 20 120/74 (89) 100 01/10/20 11:05 78 19 30 01/10/20 09:58 120/72 01/10/20 09:12 76 19 30 01/10/20 09:11 100 01/10/20 08:00 64 01/10/20 08:00 Mechanical Ventilator 15.0 01/10/20 08:00 96.8 69 18 130/61 (84) 98 01/10/20 08:00 30 01/10/20 07:12 69 19 30 01/10/20 05:10 84 21 30 01/10/20 04:00 30 01/10/20 04:00 Mechanical Ventilator 15.0 01/10/20 04:00 98.8 100 20 120/72 (88) 100 01/10/20 03:52 86 01/10/20 02:53 86 22 30 01/10/20 01:15 89 17 30 01/10/20 00:00 Mechanical Ventilator 15.0 01/10/20 00:00 98.9 95 20 110/60 (77) 100 01/09/20 23:28 94 01/09/20 22:42 78 21 30 01/09/20 20:54 74 20 30 01/09/20 20:00 98.2 102 20 128/69 (88) 100 01/09/20 20:00 Mechanical Ventilator 15.0 01/09/20 20:00 30 01/09/20 19:39 108 01/09/20 19:00 128/69 01/09/20 18:44 80 23 30 01/09/20 16:53 120 01/09/20 16:00 98.2 117 23 120/63 (82) 100 01/09/20 16:00 30 01/09/20 16:00 Mechanical Ventilator 15.0 01/09/20 15:05 78 26 30 Height (Feet): 5 Height (Inches): 1.00 Weight (Pounds): 80 General Appearance: no apparent distress EENT: normal ENT inspection Neck: supple Cardiovascular: normal rate Respiratory/Chest: decreased breath sounds Abdomen: hypoactive bowel sounds Extremities: non-tender Laboratory Tests Test 01/10/20 04:55 White Blood Count 9.5 K/UL (4.8-10.8) Red Blood Count 2.79 M/UL (4.20-5.40) L Hemoglobin 8.5 G/DL (12.0-16.0) L Hematocrit 26.8 % (37.0-47.0) L Mean Corpuscular Volume 96 FL (80-99) Mean Corpuscular Hemoglobin 30.4 PG (27.0-31.0) Mean Corpuscular Hemoglobin Concent 31.6 G/DL (32.0-36.0) L Red Cell Distribution Width 16.3 % (11.6-14.8) H Platelet Count 339 K/UL (150-450) Mean Platelet Volume 6.4 FL (6.5-10.1) L Neutrophils (%) (Auto) 65.6 % (45.0-75.0) Lymphocytes (%) (Auto) 19.7 % (20.0-45.0) L Monocytes (%) (Auto) 9.4 % (1.0-10.0) Eosinophils (%) (Auto) 4.2 % (0.0-3.0) H Basophils (%) (Auto) 1.1 % (0.0-2.0) Sodium Level 141 MMOL/L (136-145) Potassium Level 3.3 MMOL/L (3.5-5.1) L Chloride Level 107 MMOL/L (98-107) Carbon Dioxide Level 26 MMOL/L (21-32) Anion Gap 8 mmol/L (5-15) Blood Urea Nitrogen 19 mg/dL (7-18) H Creatinine 0.5 MG/DL (0.55-1.30) L Estimat Glomerular Filtration Rate > 60 mL/min (>60) Glucose Level 104 MG/DL (74-106) Calcium Level 8.9 MG/DL (8.5-10.1) Current Medications Medications (Trade) Dose Ordered Sig/Villa Route PRN Reason Start Time Stop Time Status Last Admin Dose Admin Acetaminophen (Tylenol) 650 mg Q6H PRN GT Temp >100.5 01/01/20 11:00 01/31/20 10:59 01/07/20 08:57 Ascorbic Acid (Vitamin C) 500 mg DAILY ORAL 01/01/20 09:00 01/31/20 08:59 01/10/20 09:43 Dopamine HCl/ Dextrose 250 ml @ 4.031 mls/ hr Q24H IV 01/07/20 10:15 04/05/20 18:59 01/08/20 10:33 Famotidine (Pepcid) 20 mg BID ORAL 01/10/20 18:00 04/09/20 17:59 Gabapentin (Neurontin) 600 mg TID GT 01/08/20 13:00 02/07/20 12:59 01/10/20 12:36 Haloperidol Lactate (Haldol) 5 mg Q6H PRN IM Agitation 01/01/20 23:30 02/15/20 23:29 01/10/20 08:00 Levetiracetam (Keppra) 1,500 mg Q12HR GT 01/07/20 21:00 02/07/20 08:59 01/10/20 09:44 Levothyroxine Sodium (Synthroid) 75 mcg DAILY ORAL 01/01/20 09:00 01/31/20 08:59 01/10/20 09:44 Loperamide HCl (Imodium) 2 mg Q6H PRN NG Diarrhea 01/07/20 09:45 02/06/20 09:44 01/10/20 12:08 Midodrine (Pro-Amatine) 2.5 mg THREE TIMES A DAY ORAL 01/07/20 09:00 04/06/20 08:59 01/10/20 12:36 Multivitamins Therapeutic (Therapeutic Multivitamin) 1 ea DAILY ORAL 01/01/20 09:00 01/31/20 08:59 01/10/20 09:43 Ondansetron HCl (Zofran) 4 mg Q6H PRN ORAL Nausea & Vomiting 12/31/19 21:00 01/30/20 20:59 Oxcarbazepine (TrileptaL) 300 mg EVERY 12 HOURS ORAL 01/08/20 21:00 02/07/20 20:59 01/10/20 09:43 Potassium Chloride 100 ml @ 100 mls/hr Q1H IVPB 01/10/20 11:30 01/10/20 13:29 01/10/20 12:09 Thiamine HCl (Vitamin B1) 100 mg DAILY ORAL 01/01/20 09:00 01/31/20 08:59 01/10/20 09:42 Vancomycin HCl (Firvanq) 125 mg FOUR TIMES A DAY ORAL 01/10/20 13:00 01/17/20 12:59 01/10/20 12:36 Char Morel M.D. Jan 10, 2020 13:19
--- NOTE | 2020-01-10 13:45 | Electroencephalogram ---
DATE OF PROCEDURE: 01/09/2020 EEG REPORT REQUESTING PHYSICIAN: Beny John M.D. READING PHYSICIAN: Jeffery Connolly MD. HISTORY: This EEG was performed on a 39-year-old lady with a history of cerebrovascular disease, a multifactorial encephalopathy, and a seizure disorder. The purpose of this EEG was to better delineate the type of seizure disorder. TECHNICAL NOTE: This EEG was performed on a [employer] Unit with electrodes placed on the scalp according to the International 10-20 system. [id number] and [id number]-[id number] montages were used. The EEG was of technically mediocre quality due to the fact that a full set of electrodes was not utilized. In addition when the patient did have an event, the EEG was being recorded on a referential montage and thus could not be localized well. OBSERVATIONS: In the best-awake state, the background activity consisted of 8-8.5 Hz alpha activity with intermixed theta frequencies. Drowsiness was characterized by slowing of the background in the 4-5 Hz theta range. Stage II sleep was characterized by further slowing of the background in the delta and theta range, the presence of vertex waves, and 12-14 Hz sleep spindles. During drowsiness and sleep, T3, C3, F3 sharp and slow wave discharges were seen from time to time. At 27 minutes and 46 seconds into the EEG, an episode of generalized rhythmic delta activity followed by 3 Hz polyspike and wave discharges lasting approximately 80 seconds were seen. Unfortunately this event occurred as the montage was changed to referential montage. IMPRESSION: This is an abnormal EEG characterized by: 1. An unusually large amount of theta activity seen in the reportedly awake state. 2. The presence of sharp discharges emanating from T3, C3 and F3 during drowsiness and sleep. 3. An episode of generalized rhythmic delta activity followed by 3 Hz polyspike and wave discharges of a generalized nature lasting approximately 80 seconds. COMMENT: This study is consistent with: 1. An encephalopathy of a [id number] degree. 2. Interictal discharges emanating from the left temporal, left central and left frontal regions. 3. A single ictal event associated with generalized 3 Hz polyspike and wave discharges lasting approximately 80 seconds seen on a referential montage making localization of the event quite difficult. Clinical correlation is recommended. Jeffery Connolly M.D., M.S.P.H. DR: Marcell JOB#: [id number] MTDD
[2020-01-10 16:00] VITALS: BP 100/61
[2020-01-10 20:00] VITALS: BP 120/75
--- NOTE | 2020-01-10 22:52 | Pulmonology Progress Note ---
Subjective ROS Limited/Unobtainable: Yes Constitutional: Reports: fatigue, anorexia; Denies: no symptoms, chills, drenching sweats, other HEENT: Repors: no symptoms Respiratory: Reports: no symptoms; Denies: dry cough, productive cough, sputum , hemoptysis, shortness of breath, dyspnea at rest, dyspnea on exertion, wheezing, pleuritic pain, other Cardiovascular: Reports: no symptoms Gastrointestinal/Abdominal: Denies: no symptoms, nausea, vomiting, diarrhea, constipation, blood in stool, bloating, other Neurologic: Denies: no symptoms, headache, numbness, weakness, confusion, syncope, seizures, other Psychiatric: Reports: other Allergies: Coded Allergies: CARBAMAZEPINE (Verified Allergy, Unknown, 12/31/19) LORAZEPAM (Verified Allergy, Unknown, 12/31/19) All Systems: reviewed and negative except above Subjective Height: 15 April response and obesity he did not have any seizure today EEG was planned today EEG dictation, is yet. Patient has been seen today with a neurologist who in addition to EEG ordered MRI of the brain is unclear how can this be performed inpatient on ventilator. Objective Last 24 Hour Vital Signs Date Time Temp Pulse Resp B/P (MAP) Pulse Ox O2 Delivery O2 Flow Rate FiO2 01/10/20 21:10 92 23 30 01/10/20 20:00 97.7 70 19 120/75 (90) 100 01/10/20 20:00 30 01/10/20 20:00 Mechanical Ventilator 15.0 01/10/20 19:04 56 01/10/20 19:00 63 15 30 01/10/20 17:20 56 19 30 01/10/20 16:00 30 01/10/20 16:00 57 01/10/20 16:00 97.7 54 19 100/61 (74) 100 01/10/20 16:00 Mechanical Ventilator 15.0 01/10/20 15:03 72 19 30 01/10/20 12:47 63 19 30 01/10/20 12:00 30 01/10/20 12:00 Mechanical Ventilator 15.0 01/10/20 12:00 70 01/10/20 12:00 98.8 89 20 120/74 (89) 100 01/10/20 11:05 78 19 30 01/10/20 09:58 120/72 01/10/20 09:12 76 19 30 01/10/20 09:11 100 01/10/20 08:00 64 01/10/20 08:00 Mechanical Ventilator 15.0 01/10/20 08:00 96.8 69 18 130/61 (84) 98 01/10/20 08:00 30 01/10/20 07:12 69 19 30 01/10/20 05:10 84 21 30 01/10/20 04:00 30 01/10/20 04:00 Mechanical Ventilator 15.0 01/10/20 04:00 98.8 100 20 120/72 (88) 100 01/10/20 03:52 86 01/10/20 02:53 86 22 30 01/10/20 01:15 89 17 30 01/10/20 00:00 Mechanical Ventilator 15.0 01/10/20 00:00 98.9 95 20 110/60 (77) 100 01/09/20 23:28 94 Intake and Output 01/09/20 01/10/20 19:00 07:00 Intake Total 2163.372 ml 2216.434 ml Output Total 775 ml Balance 1388.372 ml 2216.434 ml Intake Free Water 300 ml 300 ml IV Total 603.372 ml 1256.434 ml Tube Feeding 660 ml 660 ml Other 600 ml Output Urine Total 500 ml Stool Total 275 ml # Bowel Movements 3 3 HEENT: normocephalic, mucous membranes moist, supple, no JVD Respiratory: lungs clear Cardiovascular: normal rate, regular rhythm, tachycardia Abdomen: soft, non tender, no mass Extremities: no cyanosis, no clubbing, no edema Neurologic: alert, aphasia Laboratory Tests 01/10/20 04:55: White Blood Count 9.5, Red Blood Count 2.79L, Hemoglobin 8.5L, Hematocrit 26.8L , Mean Corpuscular Volume 96, Mean Corpuscular Hemoglobin 30.4, Mean Corpuscular Hemoglobin Concent 31.6L, Red Cell Distribution Width 16.3H, Platelet Count 339, Mean Platelet Volume 6.4L, Neutrophils (%) (Auto) 65.6, Lymphocytes (%) (Auto) 19.7L, Monocytes (%) (Auto) 9.4, Eosinophils (%) (Auto) 4.2H, Basophils (%) (Auto) 1.1, Sodium Level 141, Potassium Level 3.3L, Chloride Level 107, Carbon Dioxide Level 26, Anion Gap 8, Blood Urea Nitrogen 19H, Creatinine 0.5L, Estimat Glomerular Filtration Rate > 60, Glucose Level 104 , Calcium Level 8.9 Current Medications Medications (Trade) Dose Ordered Sig/Villa Route PRN Reason Start Time Stop Time Status Last Admin Dose Admin Acetaminophen (Tylenol) 650 mg Q6H PRN GT Temp >100.5 01/01/20 11:00 01/31/20 10:59 01/07/20 08:57 Ascorbic Acid (Vitamin C) 500 mg DAILY ORAL 01/01/20 09:00 01/31/20 08:59 01/10/20 09:43 Dopamine HCl/ Dextrose 250 ml @ 4.031 mls/ hr Q24H IV 01/07/20 10:15 04/05/20 18:59 01/08/20 10:33 Famotidine (Pepcid) 20 mg BID ORAL 01/10/20 18:00 04/09/20 17:59 01/10/20 18:24 Gabapentin (Neurontin) 600 mg TID GT 01/08/20 13:00 02/07/20 12:59 01/10/20 18:25 Haloperidol Lactate (Haldol) 5 mg Q6H PRN IM Agitation 01/01/20 23:30 02/15/20 23:29 01/10/20 21:00 Levetiracetam (Keppra) 1,500 mg Q12HR GT 01/07/20 21:00 02/07/20 08:59 01/10/20 20:58 Levothyroxine Sodium (Synthroid) 75 mcg DAILY ORAL 01/01/20 09:00 01/31/20 08:59 01/10/20 09:44 Loperamide HCl (Imodium) 2 mg Q6H PRN NG Diarrhea 01/07/20 09:45 02/06/20 09:44 01/10/20 12:08 Midodrine (Pro-Amatine) 2.5 mg THREE TIMES A DAY ORAL 01/07/20 09:00 04/06/20 08:59 01/10/20 18:24 Multivitamins Therapeutic (Therapeutic Multivitamin) 1 ea DAILY ORAL 01/01/20 09:00 01/31/20 08:59 01/10/20 09:43 Ondansetron HCl (Zofran) 4 mg Q6H PRN ORAL Nausea & Vomiting 12/31/19 21:00 01/30/20 20:59 Oxcarbazepine (TrileptaL) 300 mg BEDTIME ORAL 01/10/20 21:00 02/07/20 20:59 01/10/20 20:59 Thiamine HCl (Vitamin B1) 100 mg DAILY ORAL 01/01/20 09:00 01/31/20 08:59 01/10/20 09:42 Vancomycin HCl (Firvanq) 125 mg FOUR TIMES A DAY ORAL 01/10/20 13:00 01/17/20 12:59 01/10/20 20:59 Assessment/Plan Assessment/Plan Patient is currently on 2 antiseizure is levetiracetam 1500 mg twice daily Trileptal 3 mg twice daily we are waiting for the EEG for the suspicion control on seizure illness bradycardia could be a problem appeared to be resolved with patient knowing consistently tachycardic. Is on dopamine drip and is a patient on therapy and unchanged the effectiveness of theophylline to prevent bradycardia Glenny Alarcon MD, MD Jan 10, 2020 22:52
[2020-01-11] VITALS (8 sets, daily range): BP systolic 82–128; BP diastolic 43–67
--- NOTE | 2020-01-11 00:45 | Consultation ---
DATE OF CONSULTATION: 01/10/2020 CONSULTING PHYSICIAN: Beny John MD HISTORY OF PRESENT ILLNESS: The patient had her EEG on 01/09/2020. She had an unusually large amount of theta activity seen reportedly in awake stage. She had sharp discharges emanating from T3, C3, and F3 during drowsiness and sleep. An episode of generalized rhythmic delta activity followed by polyspike wave discharges and generalized wound care lasting approximately 80 seconds. Montage was used due to referential montage during the seizure and localization of any significant event was quite difficult. She does not have any seizures noted in the last few days. She is still on her Haldol. The white count today is normal and serum ammonia is 49, it is a little high, but not that high, BUN was 19, sodium 141, calcium is 8.9, last magnesium was 2.1. PHYSICAL EXAMINATION: VITAL SIGNS: Pulse is 56, respiratory rate 19, blood pressure is 100/61, she is on a ventilator, FiO2 is 30%. MENTAL STATUS EXAMINATION: The patient is awake. . Denies following any commands, closing her eyes, sticking out her tongue or lift her right or left arm. CRANIAL NERVE EXAMINATION: CRANIAL NERVE II: Visual rodríguez are difficult to evaluate. CRANIAL NERVES III, IV, AND : The eyes were in the midline. Pupils are at least 4 to 5 mm, sluggishly reactive . CRANIAL NERVE V: Corneals appear to be intact bilaterally, probably a little more on the right side. CRANIAL NERVES : Face is symmetrical bilaterally. CRANIAL NERVES IX THROUGH XII: Could not be tested. MUSCLE EXAMINATION: Muscle bulk is symmetrically decreased. Tone is increased in the lower extremities. Paratonia in the upper extremities. STRENGTH: She can move all 4 extremities at least 2/5 to 3/5, possibly more. Reflexes are 0. IMPRESSION: The patient had a electrographic seizure. EEG itself has technically quality due to the fact that full set of electrodes are not utilized. There is no mention of the clinical event during electrographic seizure and there are no seizures in the past 3 days. I would continue on her Keppra 1500 mg b.i.d. I am going to stop her Trileptal 300 mg and theophylline was discontinued. The patient has diffuse multifocal encephalopathy with multiple possible seizure foci, the temporal and frontal areas in the left thigh. The patient had a CT scan of the brain another attempt will be made tomorrow to get a CT scan of the brain. PLAN: 1. CT scan of the brain. 2. Continue the patient's medication. 3. Cut Trileptal to 300 mg a day. The goal is to stop it completely. Beny John MD DR: Teo JOB#: [id number] CC:
[2020-01-11] MEDS: Haloperidol 5mg/ml Inj IM PRN ×3 (03:41→16:41)
[2020-01-11] MEDS: DOPamine 400mg/250ml 250 ML IV SCH ×2 (04:19→06:54)
[2020-01-11 05:59] LABS: EOSINOPHILS % (AUTO) 13.6 % (0.0-3.0); HEMATOCRIT 29.3 % (37.0-47.0); HEMOGLOBIN 9.1 G/DL (12.0-16.0); LYMPHOCYTES % (AUTO) 29.4 % (20.0-45.0); MEAN CORPUSCULAR VOLUME 98 FL (80-99); MONOCYTES % (AUTO) 8.2 % (1.0-10.0); NEUTROPHILS % (AUTO) 47.8 % (45.0-75.0); PLATELET COUNT 293 K/UL (150-450); RED BLOOD COUNT 2.99 M/UL (4.20-5.40); RED CELL DISTRIBUTION WIDTH 16.3 % (11.6-14.8); WHITE BLOOD COUNT 7.6 K/UL (4.8-10.8)
[2020-01-11 06:24] LABS: ANION GAP 8 mmol/L (5-15); BLOOD UREA NITROGEN 14 mg/dL (7-18); CALCIUM 9.2 MG/DL (8.5-10.1); CARBON DIOXIDE 28 MMOL/L (21-32); CHLORIDE 108 MMOL/L (98-107); CREATININE 0.5 MG/DL (0.55-1.30); POTASSIUM 3.4 MMOL/L (3.5-5.1); SODIUM 143 MMOL/L (136-145)
[2020-01-11] MEDS: levETIRAcetam 500mg/5ml Liquid GT SCH ×2 (09:26→20:27)
[2020-01-11] MEDS: Vancomycin oral 125mg/2.5ml ORAL SCH ×4 (09:26→20:27)
[2020-01-11] MEDS: Gabapentin 300 MG/6 ML Soln GT SCH ×3 (09:26→17:14)
[2020-01-11] MEDS: Thiamine 100mg tab ORAL SCH (09:27)
[2020-01-11] MEDS: Multivitamin w/Minerals tab ORAL SCH (09:27)
[2020-01-11] MEDS: Ascorbic Acid 500mg tab ORAL SCH (09:27)
--- NOTE | 2020-01-11 11:45 | General Progress Note ---
Assessment/Plan Problem List: (1) G tube feedings ICD Codes: Z93.1 - Gastrostomy status SNOMED: 735722333, 853499636, [id number] (2) GI bleed ICD Codes: K92.2 - Gastrointestinal hemorrhage, unspecified SNOMED: 19761144 (3) Sepsis ICD Codes: A41.9 - Sepsis, unspecified organism SNOMED: 77238756 (4) Pneumonia ICD Codes: J18.9 - Pneumonia, unspecified organism SNOMED: 155494678 Assessment/Plan: s/p EGD gastric ulcer no recurrent bleed G TF monitor H&H C. Diff positive dc ppi add vanco add pepcid will fu Subjective ROS Limited/Unobtainable: No Allergies: Coded Allergies: CARBAMAZEPINE (Verified Allergy, Unknown, 12/31/19) LORAZEPAM (Verified Allergy, Unknown, 12/31/19) Objective Last 24 Hour Vital Signs Date Time Temp Pulse Resp B/P (MAP) Pulse Ox O2 Delivery O2 Flow Rate FiO2 01/11/20 10:57 52 12 30 01/11/20 09:00 51 12 30 01/11/20 08:59 100 01/11/20 08:00 Mechanical Ventilator 15.0 01/11/20 08:00 57 01/11/20 08:00 97.9 59 18 101/63 (76) 96 01/11/20 08:00 30 01/11/20 07:04 61 12 30 01/11/20 07:00 101/63 01/11/20 06:54 87/46 01/11/20 05:02 53 12 30 01/11/20 04:19 100/53 01/11/20 04:00 97.6 62 19 100/53 (69) 100 01/11/20 04:00 Mechanical Ventilator 15.0 01/11/20 04:00 30 01/11/20 03:44 57 01/11/20 03:00 58 12 30 01/11/20 00:57 50 12 30 01/11/20 00:00 97.2 55 19 97/58 (71) 100 01/11/20 00:00 Mechanical Ventilator 15.0 01/10/20 23:28 52 01/10/20 23:05 55 12 30 01/10/20 21:10 92 23 30 01/10/20 20:00 97.7 70 19 120/75 (90) 100 01/10/20 20:00 30 01/10/20 20:00 Mechanical Ventilator 15.0 01/10/20 19:04 56 01/10/20 19:00 63 15 30 01/10/20 17:20 56 19 30 01/10/20 16:00 30 01/10/20 16:00 57 01/10/20 16:00 97.7 54 19 100/61 (74) 100 01/10/20 16:00 Mechanical Ventilator 15.0 01/10/20 15:03 72 19 30 01/10/20 12:47 63 19 30 01/10/20 12:00 30 01/10/20 12:00 Mechanical Ventilator 15.0 01/10/20 12:00 70 01/10/20 12:00 98.8 89 20 120/74 (89) 100 Intake and Output 01/10/20 01/11/20 19:00 07:00 Intake Total 1354.341 ml 1024.686 ml Output Total 400 ml 270 ml Balance 954.341 ml 754.686 ml Intake Free Water 350 ml 330 ml IV Total 344.341 ml 34.686 ml Tube Feeding 660 ml 660 ml Output Urine Total 300 ml 270 ml Stool Total 100 ml # Bowel Movements 3 2 Laboratory Tests 01/11/20 04:11: White Blood Count 7.6, Red Blood Count 2.99L, Hemoglobin 9.1L, Hematocrit 29.3L , Mean Corpuscular Volume 98, Mean Corpuscular Hemoglobin 30.5, Mean Corpuscular Hemoglobin Concent 31.2L, Red Cell Distribution Width 16.3H, Platelet Count 293, Mean Platelet Volume 6.3L, Neutrophils (%) (Auto) 47.8, Lymphocytes (%) (Auto) 29.4, Monocytes (%) (Auto) 8.2, Eosinophils (%) (Auto) 13.6H, Basophils (%) (Auto) 1.0, Sodium Level 143, Potassium Level 3.4L, Chloride Level 108H, Carbon Dioxide Level 28, Anion Gap 8, Blood Urea Nitrogen 14, Creatinine 0.5L, Estimat Glomerular Filtration Rate > 60, Glucose Level 69L , Calcium Level 9.2 Height (Feet): 5 Height (Inches): 1.00 Weight (Pounds): 82 General Appearance: alert EENT: normal ENT inspection Neck: supple Cardiovascular: normal rate Respiratory/Chest: decreased breath sounds Abdomen: normal bowel sounds, non tender, soft Extremities: non-tender Satish Carrillo MD Jan 11, 2020 11:45
[2020-01-11] MEDS ORDERED: D5NS 1000ml IV ONE (12:06)
--- NOTE | 2020-01-11 13:01 | Hematology/Onc Progress Note ---
Assessment/Plan Assessment/Plan # Thrombocytopenia med related v labs error --> plt trend 167-->61-->227 --> meds have been reviewed --> no hep or lovenox (if less than 50k plt) # Anemia rule out underlying gi bleed --> Dr. Carrillo has been consulted-->endosco gastric ulceration --> trend hgb 7-->7.4-->7.9-->8.1->9.6-->8.5->9.1 --> anemia panel ordered-->reviewed --> prn transfusion --> protonix started # Leukocytosis is likely related to pna on imaging --> abx has been started --> if wbc worsens, consider abx vanc/zosyn--> ceftriaxone --> smear is noted --> wbc 25-->15-->14-->16 # Sepsis --> on abx for pna # Pneumonia --> pulm, Dr. 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 e business consultant care, will follow Subjective Constitutional: Denies: no symptoms, chills, fever, malaise, weakness, other Respiratory: Denies: no symptoms, cough, shortness of breath, SOB with excertion, SOB at rest, sputum, wheezing, other Gastrointestinal/Abdominal: Denies: no symptoms, abdomen distended, abdominal pain, black stools, tarry stools, blood in stool, constipated, diarrhea, difficulty swallowing, nausea, poor appetite, poor fluid intake, rectal bleeding , vomiting, other Genitourinary: Denies: no symptoms, burning, discharge, frequency, flank pain, hematuria, incontinence, pain, urgency, other Neurologic/Psychiatric: Denies: no symptoms, anxiety, depressed, emotional problems, headache, numbness, paresthesia, pre-existing deficit, seizure, tingling, tremors, weakness, other Endocrine: Denies: no symptoms, excessive sweating, flushing, intolerance to cold, intolerance to heat, increased hunger, increased thirst, increased urine, unexplained weight gain, unexplained weight loss, other Allergies: Coded Allergies: CARBAMAZEPINE (Verified Allergy, Unknown, 12/31/19) LORAZEPAM (Verified Allergy, Unknown, 12/31/19) Subjective 01/01 altered, trach, no bleedin wbc improved on abx, seen by gi 01/02 egd study noted, also with plts 61k, have vitaly Armendariz Rn, will recheck cbc 01/03 remains agitated, vitaly rn, no bleeding, cbc noted as well as id recs 01/04 on vent, with melena overnight, no bleeding, vitaly rn, labs reviewed 01/06 on vent, remains agitated, no bleeding, vitaly rn, smear is noted 01/07 on vent, restless, asymptomatic, noncooperative 01/[address] John obtained, reviewed, meds adjusted, eeg pending 01/09 labs noted, no bleeding, ativan has been discontinued, meds reviewed 01/10 trach to vent, agitated, with wrist restraints, no major changes, no bleeding Objective Objective Current Medications Medications (Trade) Dose Ordered Sig/Villa Route PRN Reason Start Time Stop Time Status Last Admin Dose Admin Acetaminophen (Tylenol) 650 mg Q6H PRN GT Temp >100.5 01/01/20 11:00 01/31/20 10:59 01/07/20 08:57 Ascorbic Acid (Vitamin C) 500 mg DAILY ORAL 01/01/20 09:00 01/31/20 08:59 01/11/20 09:27 Dopamine HCl/ Dextrose 250 ml @ 4.184 mls/ hr Q24H IV 01/11/20 06:45 04/05/20 18:59 01/11/20 06:54 Famotidine (Pepcid) 20 mg BID ORAL 01/10/20 18:00 04/09/20 17:59 01/11/20 09:27 Gabapentin (Neurontin) 600 mg TID GT 01/08/20 13:00 02/07/20 12:59 01/11/20 09:26 Haloperidol Lactate (Haldol) 5 mg Q6H PRN IM Agitation 01/01/20 23:30 02/15/20 23:29 01/11/20 09:25 Levetiracetam (Keppra) 1,500 mg Q12HR GT 01/07/20 21:00 02/07/20 08:59 01/11/20 09:26 Levothyroxine Sodium (Synthroid) 75 mcg DAILY ORAL 01/01/20 09:00 01/31/20 08:59 01/11/20 09:27 Loperamide HCl (Imodium) 2 mg Q6H PRN NG Diarrhea 01/07/20 09:45 02/06/20 09:44 01/10/20 12:08 Midodrine (Pro-Amatine) 2.5 mg THREE TIMES A DAY ORAL 01/07/20 09:00 04/06/20 08:59 01/11/20 09:27 Multivitamins Therapeutic (Therapeutic Multivitamin) 1 ea DAILY ORAL 01/01/20 09:00 01/31/20 08:59 01/11/20 09:27 Ondansetron HCl (Zofran) 4 mg Q6H PRN ORAL Nausea & Vomiting 12/31/19 21:00 01/30/20 20:59 Oxcarbazepine (TrileptaL) 300 mg BEDTIME ORAL 01/10/20 21:00 02/07/20 20:59 01/10/20 20:59 Potassium Chloride (K-Dur) 20 meq TWICE A DAY GT 01/11/20 09:00 04/10/20 08:59 01/11/20 09:27 Thiamine HCl (Vitamin B1) 100 mg DAILY ORAL 01/01/20 09:00 01/31/20 08:59 01/11/20 09:27 Vancomycin HCl (Firvanq) 125 mg FOUR TIMES A DAY ORAL 01/10/20 13:00 01/17/20 12:59 01/11/20 09:26 Last 24 Hour Vital Signs Date Time Temp Pulse Resp B/P (MAP) Pulse Ox O2 Delivery O2 Flow Rate FiO2 01/11/20 12:00 Mechanical Ventilator 15.0 01/11/20 12:00 97.6 60 20 128/65 (86) 100 01/11/20 12:00 57 01/11/20 12:00 30 01/11/20 10:57 52 12 30 01/11/20 09:00 51 12 30 01/11/20 08:59 100 01/11/20 08:00 Mechanical Ventilator 15.0 01/11/20 08:00 57 01/11/20 08:00 97.9 59 18 101/63 (76) 96 01/11/20 08:00 30 01/11/20 07:04 61 12 30 01/11/20 07:00 101/63 01/11/20 06:54 87/46 01/11/20 05:02 53 12 30 01/11/20 04:19 100/53 01/11/20 04:00 97.6 62 19 100/53 (69) 100 01/11/20 04:00 Mechanical Ventilator 15.0 01/11/20 04:00 30 01/11/20 03:44 57 01/11/20 03:00 58 12 30 01/11/20 00:57 50 12 30 01/11/20 00:00 97.2 55 19 97/58 (71) 100 01/11/20 00:00 Mechanical Ventilator 15.0 01/10/20 23:28 52 01/10/20 23:05 55 12 30 01/10/20 21:10 92 23 30 01/10/20 20:00 97.7 70 19 120/75 (90) 100 01/10/20 20:00 30 01/10/20 20:00 Mechanical Ventilator 15.0 01/10/20 19:04 56 01/10/20 19:00 63 15 30 01/10/20 17:20 56 19 30 01/10/20 16:00 30 01/10/20 16:00 57 01/10/20 16:00 97.7 54 19 100/61 (74) 100 01/10/20 16:00 Mechanical Ventilator 15.0 01/10/20 15:03 72 19 30 01/10/20 12:47 63 19 30 01/10/20 12:00 30 01/10/20 12:00 Mechanical Ventilator 15.0 01/10/20 12:00 70 01/10/20 12:00 98.8 89 20 120/74 (89) 100 01/10/20 11:05 78 19 30 01/10/20 09:58 120/72 01/10/20 09:12 76 19 30 01/10/20 09:11 100 01/10/20 08:00 64 01/10/20 08:00 Mechanical Ventilator 15.0 01/10/20 08:00 96.8 69 18 130/61 (84) 98 01/10/20 08:00 30 01/10/20 07:12 69 19 30 01/10/20 05:10 84 21 30 01/10/20 04:00 30 01/10/20 04:00 Mechanical Ventilator 15.0 01/10/20 04:00 98.8 100 20 120/72 (88) 100 01/10/20 03:52 86 01/10/20 02:53 86 22 30 01/10/20 01:15 89 17 30 01/10/20 00:00 Mechanical Ventilator 15.0 01/10/20 00:00 98.9 95 20 110/60 (77) 100 01/09/20 23:28 94 01/09/20 22:42 78 21 30 01/09/20 20:54 74 20 30 01/09/20 20:00 98.2 102 20 128/69 (88) 100 01/09/20 20:00 Mechanical Ventilator 15.0 01/09/20 20:00 30 01/09/20 19:39 108 01/09/20 19:00 128/69 01/09/20 18:44 80 23 30 01/09/20 16:53 120 01/09/20 16:00 98.2 117 23 120/63 (82) 100 01/09/20 16:00 30 01/09/20 16:00 Mechanical Ventilator 15.0 01/09/20 15:05 78 26 30 Intake and Output 01/10/20 01/11/20 19:00 07:00 Intake Total 1354.341 ml 1024.686 ml Output Total 400 ml 270 ml Balance 954.341 ml 754.686 ml Intake Free Water 350 ml 330 ml IV Total 344.341 ml 34.686 ml Tube Feeding 660 ml 660 ml Output Urine Total 300 ml 270 ml Stool Total 100 ml # Bowel Movements 3 2 Labs Test 01/09/20 04:50 01/09/20 11:00 01/10/20 04:55 01/11/20 04:11 White Blood Count 11.0 K/UL (4.8-10.8) 9.5 K/UL (4.8-10.8) 7.6 K/UL (4.8-10.8) Red Blood Count 3.15 M/UL (4.20-5.40) 2.79 M/UL (4.20-5.40) 2.99 M/UL (4.20-5.40) Hemoglobin 9.7 G/DL (12.0-16.0) 8.5 G/DL (12.0-16.0) 9.1 G/DL (12.0-16.0) Hematocrit 31.4 % (37.0-47.0) 26.8 % (37.0-47.0) 29.3 % (37.0-47.0) Mean Corpuscular Volume 100 FL (80-99) 96 FL (80-99) 98 FL (80-99) Mean Corpuscular Hemoglobin 30.8 PG (27.0-31.0) 30.4 PG (27.0-31.0) 30.5 PG (27.0-31.0) Mean Corpuscular Hemoglobin Concent 30.9 G/DL (32.0-36.0) 31.6 G/DL (32.0-36.0) 31.2 G/DL (32.0-36.0) Red Cell Distribution Width 17.1 % (11.6-14.8) 16.3 % (11.6-14.8) 16.3 % (11.6-14.8) Platelet Count 371 K/UL (150-450) 339 K/UL (150-450) 293 K/UL (150-450) Mean Platelet Volume 6.3 FL (6.5-10.1) 6.4 FL (6.5-10.1) 6.3 FL (6.5-10.1) Neutrophils (%) (Auto) 67.6 % (45.0-75.0) 65.6 % (45.0-75.0) 47.8 % (45.0-75.0) Lymphocytes (%) (Auto) 20.2 % (20.0-45.0) 19.7 % (20.0-45.0) 29.4 % (20.0-45.0) Monocytes (%) (Auto) 7.1 % (1.0-10.0) 9.4 % (1.0-10.0) 8.2 % (1.0-10.0) Eosinophils (%) (Auto) 1.2 % (0.0-3.0) 4.2 % (0.0-3.0) 13.6 % (0.0-3.0) Basophils (%) (Auto) 4.0 % (0.0-2.0) 1.1 % (0.0-2.0) 1.0 % (0.0-2.0) Theophylline Level 25.1 ug/mL (10-20) Sodium Level 141 MMOL/L (136-145) 143 MMOL/L (136-145) Potassium Level 3.3 MMOL/L (3.5-5.1) 3.4 MMOL/L (3.5-5.1) Chloride Level 107 MMOL/L (98-107) 108 MMOL/L (98-107) Carbon Dioxide Level 26 MMOL/L (21-32) 28 MMOL/L (21-32) Anion Gap 8 mmol/L (5-15) 8 mmol/L (5-15) Blood Urea Nitrogen 19 mg/dL (7-18) 14 mg/dL (7-18) Creatinine 0.5 MG/DL (0.55-1.30) 0.5 MG/DL (0.55-1.30) Estimat Glomerular Filtration Rate > 60 mL/min (>60) > 60 mL/min (>60) Glucose Level 104 MG/DL (74-106) 69 MG/DL (74-106) Calcium Level 8.9 MG/DL (8.5-10.1) 9.2 MG/DL (8.5-10.1) Height (Feet): 5 Height (Inches): 1.00 Weight (Pounds): 82 Objective Vital Signs General Appearance: ++ cachectic, chronically ill HEENT: normocephalic, atraumatic ++ trach Resp: other -. vent ++ Cardiovascular: regular rate, rhythm, no edema Gastrointestinal: gtube in place, without erythema Rectal: other - Hemoccult positive [place]: back normal, gait/station normal, non-tender Lymphatic: no adenopathy Baltazar Cortes MD Jan 11, 2020 13:01
--- NOTE | 2020-01-11 13:27 | Infectious Diseases Prog Note ---
Assessment/Plan 39yo F with: Sepsis Fever to 101.5>>Low grade ; SP Possible pna on CXR Leukocytosis to 24, now resolved Cdiff colitis -cdif toxin + Recurrent GIB 01/06 u/aneg 12/30 BCx 1/2 +CONS, likely contaminant 12/30 UA neg, COVID rapid Ag neg 12/30 CXR 1. Density overlying the bilateral lung apices. May represent pleural thickening, multifocal airspace opacities, versus summation artifact. 01/01 BCx Neg 01/02 BCx Neg Possible Scabies SP tx w/ Permethrin and Ivermectin 12/31 R/o DVT: None on US 12/30 MRSA nares neg Recurrent GIBs, FOBT+ Hepatic encephalopathy, chronic S/p Trach/PEG Resides at SNF Plan: Cont PO Vancomycin 125mg PO qid #4/10 for cdiff 01/08 SP Ceftriaxone #7 01/02 SP vanco #2, Zosyn #2 Repeat 2nd dose of ivermectin today (01/08) Monitor CBC/CMP Monitor resp status Monitor temp and hemodynamics contact isolation Thank you for this consult. [facility] will continue to follow. Subjective Allergies: Coded Allergies: CARBAMAZEPINE (Verified Allergy, Unknown, 12/31/19) LORAZEPAM (Verified Allergy, Unknown, 12/31/19) afebrile no leukocytosis Objective Last 24 Hour Vital Signs Date Time Temp Pulse Resp B/P (MAP) Pulse Ox O2 Delivery O2 Flow Rate FiO2 01/11/20 12:00 Mechanical Ventilator 15.0 01/11/20 12:00 97.6 60 20 128/65 (86) 100 01/11/20 12:00 57 01/11/20 12:00 30 01/11/20 10:57 52 12 30 01/11/20 09:00 51 12 30 01/11/20 08:59 100 01/11/20 08:00 Mechanical Ventilator 15.0 01/11/20 08:00 57 01/11/20 08:00 97.9 59 18 101/63 (76) 96 01/11/20 08:00 30 01/11/20 07:04 61 12 30 01/11/20 07:00 101/63 01/11/20 06:54 87/46 01/11/20 05:02 53 12 30 01/11/20 04:19 100/53 01/11/20 04:00 97.6 62 19 100/53 (69) 100 01/11/20 04:00 Mechanical Ventilator 15.0 01/11/20 04:00 30 01/11/20 03:44 57 01/11/20 03:00 58 12 30 01/11/20 00:57 50 12 30 01/11/20 00:00 97.2 55 19 97/58 (71) 100 01/11/20 00:00 Mechanical Ventilator 15.0 01/10/20 23:28 52 01/10/20 23:05 55 12 30 01/10/20 21:10 92 23 30 01/10/20 20:00 97.7 70 19 120/75 (90) 100 01/10/20 20:00 30 01/10/20 20:00 Mechanical Ventilator 15.0 01/10/20 19:04 56 01/10/20 19:00 63 15 30 01/10/20 17:20 56 19 30 01/10/20 16:00 30 01/10/20 16:00 57 01/10/20 16:00 97.7 54 19 100/61 (74) 100 01/10/20 16:00 Mechanical Ventilator 15.0 01/10/20 15:03 72 19 30 Height (Feet): 5 Height (Inches): 1.00 Weight (Pounds): 82 General Appearance: no apparent distress Neck: supple Cardiovascular: normal rate Respiratory/Chest: decreased breath sounds Abdomen: hypoactive bowel sounds Extremities: non-tender Laboratory Tests Test 01/11/20 04:11 White Blood Count 7.6 K/UL (4.8-10.8) Red Blood Count 2.99 M/UL (4.20-5.40) L Hemoglobin 9.1 G/DL (12.0-16.0) L Hematocrit 29.3 % (37.0-47.0) L Mean Corpuscular Volume 98 FL (80-99) Mean Corpuscular Hemoglobin 30.5 PG (27.0-31.0) Mean Corpuscular Hemoglobin Concent 31.2 G/DL (32.0-36.0) L Red Cell Distribution Width 16.3 % (11.6-14.8) H Platelet Count 293 K/UL (150-450) Mean Platelet Volume 6.3 FL (6.5-10.1) L Neutrophils (%) (Auto) 47.8 % (45.0-75.0) Lymphocytes (%) (Auto) 29.4 % (20.0-45.0) Monocytes (%) (Auto) 8.2 % (1.0-10.0) Eosinophils (%) (Auto) 13.6 % (0.0-3.0) H Basophils (%) (Auto) 1.0 % (0.0-2.0) Sodium Level 143 MMOL/L (136-145) Potassium Level 3.4 MMOL/L (3.5-5.1) L Chloride Level 108 MMOL/L (98-107) H Carbon Dioxide Level 28 MMOL/L (21-32) Anion Gap 8 mmol/L (5-15) Blood Urea Nitrogen 14 mg/dL (7-18) Creatinine 0.5 MG/DL (0.55-1.30) L Estimat Glomerular Filtration Rate > 60 mL/min (>60) Glucose Level 69 MG/DL (74-106) L Calcium Level 9.2 MG/DL (8.5-10.1) Current Medications Medications (Trade) Dose Ordered Sig/Villa Route PRN Reason Start Time Stop Time Status Last Admin Dose Admin Acetaminophen (Tylenol) 650 mg Q6H PRN GT Temp >100.5 01/01/20 11:00 01/31/20 10:59 01/07/20 08:57 Ascorbic Acid (Vitamin C) 500 mg DAILY ORAL 01/01/20 09:00 01/31/20 08:59 01/11/20 09:27 Dopamine HCl/ Dextrose 250 ml @ 4.184 mls/ hr Q24H IV 01/11/20 06:45 04/05/20 18:59 01/11/20 06:54 Famotidine (Pepcid) 20 mg BID ORAL 01/10/20 18:00 04/09/20 17:59 01/11/20 09:27 Gabapentin (Neurontin) 600 mg TID GT 01/08/20 13:00 02/07/20 12:59 01/11/20 09:26 Haloperidol Lactate (Haldol) 5 mg Q6H PRN IM Agitation 01/01/20 23:30 02/15/20 23:29 01/11/20 09:25 Levetiracetam (Keppra) 1,500 mg Q12HR GT 01/07/20 21:00 02/07/20 08:59 01/11/20 09:26 Levothyroxine Sodium (Synthroid) 75 mcg DAILY ORAL 01/01/20 09:00 01/31/20 08:59 01/11/20 09:27 Loperamide HCl (Imodium) 2 mg Q6H PRN NG Diarrhea 01/07/20 09:45 02/06/20 09:44 01/10/20 12:08 Midodrine (Pro-Amatine) 2.5 mg THREE TIMES A DAY ORAL 01/07/20 09:00 04/06/20 08:59 01/11/20 09:27 Multivitamins Therapeutic (Therapeutic Multivitamin) 1 ea DAILY ORAL 01/01/20 09:00 01/31/20 08:59 01/11/20 09:27 Ondansetron HCl (Zofran) 4 mg Q6H PRN ORAL Nausea & Vomiting 12/31/19 21:00 01/30/20 20:59 Oxcarbazepine (TrileptaL) 300 mg BEDTIME ORAL 01/10/20 21:00 02/07/20 20:59 01/10/20 20:59 Potassium Chloride (K-Dur) 20 meq TWICE A DAY GT 01/11/20 09:00 04/10/20 08:59 01/11/20 09:27 Thiamine HCl (Vitamin B1) 100 mg DAILY ORAL 01/01/20 09:00 01/31/20 08:59 01/11/20 09:27 Vancomycin HCl (Firvanq) 125 mg FOUR TIMES A DAY ORAL 01/10/20 13:00 01/17/20 12:59 01/11/20 09:26 Char Morel M.D. Jan 11, 2020 13:27
--- NOTE | 2020-01-11 14:05 | Surgery Progress Note ---
Surgery Progress Note Subjective Additional Comments no acute events labs improved comfortable neuro input appreciated. Objective Last 24 Hour Vital Signs Date Time Temp Pulse Resp B/P (MAP) Pulse Ox O2 Delivery O2 Flow Rate FiO2 01/11/20 13:23 53 12 30 01/11/20 12:00 Mechanical Ventilator 15.0 01/11/20 12:00 97.6 60 20 128/65 (86) 100 01/11/20 12:00 57 01/11/20 12:00 30 01/11/20 10:57 52 12 30 01/11/20 09:00 51 12 30 01/11/20 08:59 100 01/11/20 08:00 Mechanical Ventilator 15.0 01/11/20 08:00 57 01/11/20 08:00 97.9 59 18 101/63 (76) 96 01/11/20 08:00 30 01/11/20 07:04 61 12 30 01/11/20 07:00 101/63 01/11/20 06:54 87/46 01/11/20 05:02 53 12 30 01/11/20 04:19 100/53 01/11/20 04:00 97.6 62 19 100/53 (69) 100 01/11/20 04:00 Mechanical Ventilator 15.0 01/11/20 04:00 30 01/11/20 03:44 57 01/11/20 03:00 58 12 30 01/11/20 00:57 50 12 30 01/11/20 00:00 97.2 55 19 97/58 (71) 100 01/11/20 00:00 Mechanical Ventilator 15.0 01/10/20 23:28 52 01/10/20 23:05 55 12 30 01/10/20 21:10 92 23 30 01/10/20 20:00 97.7 70 19 120/75 (90) 100 01/10/20 20:00 30 01/10/20 20:00 Mechanical Ventilator 15.0 01/10/20 19:04 56 01/10/20 19:00 63 15 30 01/10/20 17:20 56 19 30 01/10/20 16:00 30 01/10/20 16:00 57 01/10/20 16:00 97.7 54 19 100/61 (74) 100 01/10/20 16:00 Mechanical Ventilator 15.0 01/10/20 15:03 72 19 30 I&O Intake and Output 01/10/20 01/11/20 19:00 07:00 Intake Total 1354.341 ml 1024.686 ml Output Total 400 ml 270 ml Balance 954.341 ml 754.686 ml Intake Free Water 350 ml 330 ml IV Total 344.341 ml 34.686 ml Tube Feeding 660 ml 660 ml Output Urine Total 300 ml 270 ml Stool Total 100 ml # Bowel Movements 3 2 Dressing: other Wound: other Cardiovascular: RSR Respiratory: decreased breath sounds Abdomen: soft, non-tender, present bowel sounds Extremities: no tenderness, no cyanosis Laboratory Tests Test 01/11/20 04:11 White Blood Count 7.6 K/UL (4.8-10.8) Red Blood Count 2.99 M/UL (4.20-5.40) L Hemoglobin 9.1 G/DL (12.0-16.0) L Hematocrit 29.3 % (37.0-47.0) L Mean Corpuscular Volume 98 FL (80-99) Mean Corpuscular Hemoglobin 30.5 PG (27.0-31.0) Mean Corpuscular Hemoglobin Concent 31.2 G/DL (32.0-36.0) L Red Cell Distribution Width 16.3 % (11.6-14.8) H Platelet Count 293 K/UL (150-450) Mean Platelet Volume 6.3 FL (6.5-10.1) L Neutrophils (%) (Auto) 47.8 % (45.0-75.0) Lymphocytes (%) (Auto) 29.4 % (20.0-45.0) Monocytes (%) (Auto) 8.2 % (1.0-10.0) Eosinophils (%) (Auto) 13.6 % (0.0-3.0) H Basophils (%) (Auto) 1.0 % (0.0-2.0) Sodium Level 143 MMOL/L (136-145) Potassium Level 3.4 MMOL/L (3.5-5.1) L Chloride Level 108 MMOL/L (98-107) H Carbon Dioxide Level 28 MMOL/L (21-32) Anion Gap 8 mmol/L (5-15) Blood Urea Nitrogen 14 mg/dL (7-18) Creatinine 0.5 MG/DL (0.55-1.30) L Estimat Glomerular Filtration Rate > 60 mL/min (>60) Glucose Level 69 MG/DL (74-106) L Calcium Level 9.2 MG/DL (8.5-10.1) Plan Problems: (1) Pneumonia (2) Sepsis Assessment & Plan: leukocytosis anemia lactic acidosis agree with GI recommend EGD planned for 12/31 hold feeding for now trend h/h monitor for bleeding no acute hemorrhage will be available in event needs exploration for hemostasis prbc as per heme thank you will follow with recs cont abx Pt presented on admission in emaciated state. Pt has tracheostomy and GT. NO skin concerns noted to skin under collar of trach. NO erythema or evidence of skin erosion at GT site. Pt noted to have scaly pimple-like rash with webbing noted to R and L axillae, undersides of both breasts, Bilat groin and lower back. Tracking and webbing noted to hands and feet. Pt restless and scratching at skin. Non-Blanching erythema without induration or fluctuance noted to R and L hips and trochanteric areas.Non-blanching erythema noted along spine. Non-Blanching erythema without induration noted to Sacrum. Non-Blanching erythema noted to R and L Malleoli and both heels. Tx.Plan: Please apply Cavilon Skin Barrier to each bony Prominences at risks for Skin Breakdown. Cover each area with Optifoam drsgs. Change every 7 days and prn. Apply Moisture Barrier Paste to Sacrum. Cover with Optifoam drsg. Change every 3 days and prn. Reposition at least every 2hours or as tolerated. Off-load heels with pillow. APM/EMELI Mattress overlay. improving cont current care plan (3) GI bleed (4) G tube feedings Assessment & Plan: DAILY ESTIMATED NEEDS: Needs based on Underweight, critical care 37.3kg 30-40 kcals/kg 4325-5444 total kcals 1.25-2 g protein/kg 47-75 g total protein 25-35 mL/kg 933-1306 total fluid mLs NUTRITION DIAGNOSIS: Increased kcal and pro needs r/t underweight status as evidenced by BMI 14.1, pt is 68% of ideal body weight w/ generalized severe wasting, trach and peg dep. CURRENT TF:Vital AF 1.2 @55 x20 hrs ENTERAL NUTRITION RECOMMENDATIONS: Vital AF 1.2 @ 55ml/hr x20 hrs to provide 1100ml 1320kcal 83g prot, 892ml free water - Rec to continue elemental TF formula while stool C-diff positive, +LBM - HOLD 1HR BEFORE AND AFTER SYNTHROID MEDS - Flush per MD. HOB over 30 degrees ADDITIONAL RECOMMENDATIONS: 1) Per SNF: 5'4" and 81# Maintain calibrated bed scale wts w/ added P200 mattress 2) Lytes daily madhav w/ loose stools, replete as needed 3) Skin integrity: Continue BRIAN VIA GT BID + Vit C 4) Accuchecks for Hypoglycemia 5) Add probiotics for stool C-diff+ . George Woods Jan 11, 2020 14:04
--- NOTE | 2020-01-11 14:06 | Diagnostic Imaging Report ---
Indications: Seizure Technique: Spiral acquisitions obtained through the brain. Angled axial and coronal 5 x 5 mm slices were reconstructed. Total dose length product 291 mGycm. CTDI vol(s) 53, 53 mGy. Dose reduction achieved using automated exposure control Comparison: None. Findings: There is marked enlargement of the third and lateral ventricles and extra axial CSF spaces, in particular the former. There is considerable periventricular deep white matter low-attenuation. Otherwise normal mobley-white differentiation. No acute hemorrhage or edema. No mass effect nor midline shift. Visualized orbits and sinuses are unremarkable. The calvarium is intact Impression: Third and lateral ventriculomegaly. Associated enlargement of the extra axial CSF spaces indicates that this is probably due to central volume loss, but the possibility of hydrocephalus should also be considered. At the degree of volume loss is considerably out of proportion to patient's age. Correlate with clinical history Periventricular deep white matter low-attenuation. Probably on the basis of microvascular ischemic change but given patient's age the possibility of demyelinating disease should be considered as well. Negative for acute intracranial bleed or mass effect The CT scanner at [facility] is accredited by the [employer] and the scans are performed using protocols designed to limit radiation exposure to as low as reasonably achievable to attain images of sufficient resolution adequate for diagnostic evaluation.
--- NOTE | 2020-01-11 14:11 | Nephrology Progress Note ---
Assessment/Plan Problem List: (1) RICHARD (acute kidney injury) (2) Dehydration (3) Anemia (4) GI bleed (5) Malnutrition (6) Seizure disorder (7) Electrolyte imbalance Assessment Renal failure, in the form of prerenal azotemia, most likely secondary to GI bleed GI bleed, leading to severe anemia Sepsis, pneumonia Chronic tracheostomy, ventilator dependent History of CVA History of seizure disorder History of psychiatric disorder Severe malnutrition Electrolyte abnormalities Plan January 10: Labs reviewed. Potassium supplement given. Continue per consultants. January 09: Lab reviewed. Potassium supplement given. IV fluid discontinued. January 08: Lab reviewed. Renal parameters stable. Continue per consultants. January 07: Lab reviewed. Renal parameters stable. Continue per consultants. January 06: Lab reviewed. Stable from renal standpoint of view. January 05: Labs reviewed. Stable from renal standpoint of view. Continue per consultants. January 04: No labs drawn today. Will check labs tomorrow. Continue per consultants. January 03: Lab reviewed. Renal parameters stable. IV fluid discontinued. High LFTs declining. Continue same. January 02: Lab reviewed. Renal parameters stable. Continue per PMD and consultants. LFTs remain elevated. Continue to monitor. Continue slow hydration Discontinue blood pressure medications as her blood pressure is low Discontinue diuretics Monitor renal parameters Transfusion as needed GI evaluation Correct electrolyte abnormalities Check B12 level, folate, and thyroid function tests: Results noted Subjective ROS Limited/Unobtainable: Yes Objective Objective Last 24 Hour Vital Signs Date Time Temp Pulse Resp B/P (MAP) Pulse Ox O2 Delivery O2 Flow Rate FiO2 01/11/20 13:23 53 12 30 01/11/20 12:00 Mechanical Ventilator 15.0 01/11/20 12:00 97.6 60 20 128/65 (86) 100 01/11/20 12:00 57 01/11/20 12:00 30 01/11/20 10:57 52 12 30 01/11/20 09:00 51 12 30 01/11/20 08:59 100 01/11/20 08:00 Mechanical Ventilator 15.0 01/11/20 08:00 57 01/11/20 08:00 97.9 59 18 101/63 (76) 96 01/11/20 08:00 30 01/11/20 07:04 61 12 30 01/11/20 07:00 101/63 01/11/20 06:54 87/46 01/11/20 05:02 53 12 30 01/11/20 04:19 100/53 01/11/20 04:00 97.6 62 19 100/53 (69) 100 01/11/20 04:00 Mechanical Ventilator 15.0 01/11/20 04:00 30 01/11/20 03:44 57 01/11/20 03:00 58 12 30 01/11/20 00:57 50 12 30 01/11/20 00:00 97.2 55 19 97/58 (71) 100 01/11/20 00:00 Mechanical Ventilator 15.0 01/10/20 23:28 52 01/10/20 23:05 55 12 30 01/10/20 21:10 92 23 30 01/10/20 20:00 97.7 70 19 120/75 (90) 100 01/10/20 20:00 30 01/10/20 20:00 Mechanical Ventilator 15.0 01/10/20 19:04 56 01/10/20 19:00 63 15 30 01/10/20 17:20 56 19 30 01/10/20 16:00 30 01/10/20 16:00 57 01/10/20 16:00 97.7 54 19 100/61 (74) 100 01/10/20 16:00 Mechanical Ventilator 15.0 01/10/20 15:03 72 19 30 Intake and Output 01/10/20 01/11/20 19:00 07:00 Intake Total 1354.341 ml 1024.686 ml Output Total 400 ml 270 ml Balance 954.341 ml 754.686 ml Intake Free Water 350 ml 330 ml IV Total 344.341 ml 34.686 ml Tube Feeding 660 ml 660 ml Output Urine Total 300 ml 270 ml Stool Total 100 ml # Bowel Movements 3 2 Laboratory Tests 01/11/20 04:11: White Blood Count 7.6, Red Blood Count 2.99L, Hemoglobin 9.1L, Hematocrit 29.3L , Mean Corpuscular Volume 98, Mean Corpuscular Hemoglobin 30.5, Mean Corpuscular Hemoglobin Concent 31.2L, Red Cell Distribution Width 16.3H, Platelet Count 293, Mean Platelet Volume 6.3L, Neutrophils (%) (Auto) 47.8, Lymphocytes (%) (Auto) 29.4, Monocytes (%) (Auto) 8.2, Eosinophils (%) (Auto) 13.6H, Basophils (%) (Auto) 1.0, Sodium Level 143, Potassium Level 3.4L, Chloride Level 108H, Carbon Dioxide Level 28, Anion Gap 8, Blood Urea Nitrogen 14, Creatinine 0.5L, Estimat Glomerular Filtration Rate > 60, Glucose Level 69L , Calcium Level 9.2 Height (Feet): 5 Height (Inches): 1.00 Weight (Pounds): 82 General Appearance: no apparent distress EENT: other - Trach to vent. Cardiovascular: tachycardia Respiratory/Chest: decreased breath sounds Abdomen: soft, other - PEG Chivo Holloway MD Jan 11, 2020 14:11
--- NOTE | 2020-01-11 14:17 | Pulmonology Progress Note ---
Ivanna Mora WELL DIGGER 01/11/20 1417: Subjective ROS Limited/Unobtainable: Yes Constitutional: Reports: fatigue, anorexia; Denies: no symptoms, chills, drenching sweats, other HEENT: Repors: no symptoms Respiratory: Reports: no symptoms; Denies: dry cough, productive cough, sputum , hemoptysis, shortness of breath, dyspnea at rest, dyspnea on exertion, wheezing, pleuritic pain, other Cardiovascular: Reports: no symptoms Gastrointestinal/Abdominal: Denies: no symptoms, nausea, vomiting, diarrhea, constipation, blood in stool, bloating, other Neurologic: Denies: no symptoms, headache, numbness, weakness, confusion, syncope, seizures, other Psychiatric: Reports: other Allergies: Coded Allergies: CARBAMAZEPINE (Verified Allergy, Unknown, 12/31/19) LORAZEPAM (Verified Allergy, Unknown, 12/31/19) All Systems: reviewed and negative except above Subjective no signs of resp distress on current settings remains afebrile, mild leukocytosis resolved CXR 01/06 stable ABG stable on SIMV mode stool C dif + 01/07 started on po Vanco prior episodes of witnessed seizure x2 EEG abnormal no further seizure activity remains bradycardic in 50th Objective Last 24 Hour Vital Signs Date Time Temp Pulse Resp B/P (MAP) Pulse Ox O2 Delivery O2 Flow Rate FiO2 01/11/20 13:23 53 12 30 01/11/20 12:00 Mechanical Ventilator 15.0 01/11/20 12:00 97.6 60 20 128/65 (86) 100 01/11/20 12:00 57 01/11/20 12:00 30 01/11/20 10:57 52 12 01/11/20 09:00 51 12 30 01/11/20 08:59 100 01/11/20 08:00 Mechanical Ventilator 15.0 01/11/20 08:00 57 01/11/20 08:00 97.9 59 18 101/63 (76) 96 01/11/20 08:00 30 01/11/20 07:04 61 12 30 01/11/20 07:00 101/63 01/11/20 06:54 87/46 01/11/20 05:02 53 12 30 01/11/20 04:19 100/53 01/11/20 04:00 97.6 62 19 100/53 (69) 100 01/11/20 04:00 Mechanical Ventilator 15.0 01/11/20 04:00 30 01/11/20 03:44 57 01/11/20 03:00 58 12 30 01/11/20 00:57 50 12 30 01/11/20 00:00 97.2 55 19 97/58 (71) 100 01/11/20 00:00 Mechanical Ventilator 15.0 01/10/20 23:28 52 01/10/20 23:05 55 12 30 01/10/20 21:10 92 23 30 01/10/20 20:00 97.7 70 19 120/75 (90) 100 01/10/20 20:00 30 01/10/20 20:00 Mechanical Ventilator 15.0 01/10/20 19:04 56 01/10/20 19:00 63 15 30 01/10/20 17:20 56 19 30 01/10/20 16:00 30 01/10/20 16:00 57 01/10/20 16:00 97.7 54 19 100/61 (74) 100 01/10/20 16:00 Mechanical Ventilator 15.0 01/10/20 15:03 72 19 30 Intake and Output 01/10/20 01/11/20 19:00 07:00 Intake Total 1354.341 ml 1024.686 ml Output Total 400 ml 270 ml Balance 954.341 ml 754.686 ml Intake Free Water 350 ml 330 ml IV Total 344.341 ml 34.686 ml Tube Feeding 660 ml 660 ml Output Urine Total 300 ml 270 ml Stool Total 100 ml # Bowel Movements 3 2 Objective General Appearance: bedridden, pale, chronically ill looking, older than her biological age ; vent dependent female ; on vent SIMV 450-30%-12, PEEP 5 Lines, tubes and drains: peripheral, trach HEENT: normocephalic, atraumatic Neck: trach - Portex #7, secretions small amount, yellow color, thin consistency Respiratory/Chest: CTAB Cardiovascular/Chest: bradycardia , regular rhythm Abdomen: non tender, soft, G tube Genitourinary/Rectal: [place] Extremities: no edema, muscle atrophy Neurologic: abnormal gait, poorly responsive, more awake , eyes open Musculoskeletal: atrophy Skin: multiple tattoos HEENT: normocephalic, mucous membranes moist, supple, no JVD Respiratory: lungs clear Cardiovascular: normal rate, regular rhythm, tachycardia Abdomen: soft, non tender, no mass Extremities: no cyanosis, no clubbing, no edema Neurologic: alert, aphasia Laboratory Tests 01/11/20 04:11: White Blood Count 7.6, Red Blood Count 2.99L, Hemoglobin 9.1L, Hematocrit 29.3L , Mean Corpuscular Volume 98, Mean Corpuscular Hemoglobin 30.5, Mean Corpuscular Hemoglobin Concent 31.2L, Red Cell Distribution Width 16.3H, Platelet Count 293, Mean Platelet Volume 6.3L, Neutrophils (%) (Auto) 47.8, Lymphocytes (%) (Auto) 29.4, Monocytes (%) (Auto) 8.2, Eosinophils (%) (Auto) 13.6H, Basophils (%) (Auto) 1.0, Sodium Level 143, Potassium Level 3.4L, Chloride Level 108H, Carbon Dioxide Level 28, Anion Gap 8, Blood Urea Nitrogen 14, Creatinine 0.5L, Estimat Glomerular Filtration Rate > 60, Glucose Level 69L , Calcium Level 9.2 Current Medications Medications (Trade) Dose Ordered Sig/Villa Route PRN Reason Start Time Stop Time Status Last Admin Dose Admin Acetaminophen (Tylenol) 650 mg Q6H PRN GT Temp >100.5 01/01/20 11:00 01/31/20 10:59 01/07/20 08:57 Ascorbic Acid (Vitamin C) 500 mg DAILY ORAL 01/01/20 09:00 01/31/20 08:59 01/11/20 09:27 Dopamine HCl/ Dextrose 250 ml @ 4.184 mls/ hr Q24H IV 01/11/20 06:45 04/05/20 18:59 01/11/20 06:54 Famotidine (Pepcid) 20 mg BID ORAL 01/10/20 18:00 04/09/20 17:59 01/11/20 09:27 Gabapentin (Neurontin) 600 mg TID GT 01/08/20 13:00 02/07/20 12:59 01/11/20 14:07 Haloperidol Lactate (Haldol) 5 mg Q6H PRN IM Agitation 01/01/20 23:30 02/15/20 23:29 01/11/20 09:25 Levetiracetam (Keppra) 1,500 mg Q12HR GT 01/07/20 21:00 02/07/20 08:59 01/11/20 09:26 Levothyroxine Sodium (Synthroid) 75 mcg DAILY ORAL 01/01/20 09:00 01/31/20 08:59 01/11/20 09:27 Loperamide HCl (Imodium) 2 mg Q6H PRN NG Diarrhea 01/07/20 09:45 02/06/20 09:44 01/11/20 14:09 Midodrine (Pro-Amatine) 2.5 mg THREE TIMES A DAY ORAL 01/07/20 09:00 04/06/20 08:59 01/11/20 14:07 Multivitamins Therapeutic (Therapeutic Multivitamin) 1 ea DAILY ORAL 01/01/20 09:00 01/31/20 08:59 01/11/20 09:27 Ondansetron HCl (Zofran) 4 mg Q6H PRN ORAL Nausea & Vomiting 12/31/19 21:00 01/30/20 20:59 Oxcarbazepine (TrileptaL) 300 mg BEDTIME ORAL 01/10/20 21:00 02/07/20 20:59 01/10/20 20:59 Potassium Chloride (K-Dur) 20 meq TWICE A DAY GT 01/11/20 09:00 04/10/20 08:59 01/11/20 09:27 Thiamine HCl (Vitamin B1) 100 mg DAILY ORAL 01/01/20 09:00 01/31/20 08:59 01/11/20 09:27 Vancomycin HCl (Firvanq) 125 mg FOUR TIMES A DAY ORAL 01/10/20 13:00 01/17/20 12:59 01/11/20 14:07 Assessment/Plan Assessment/Plan ASSESSMENT VDRF/trach status Sepsis Possible pneumonia recurrent GI bleeding C dif colitis Anemia secondary to GI bleeding Aspiration risk Dysphagia, feeding by G-tube Encephalopathy Acute kidney injury likely secondary to dehydration Bradycardia Electrolyte imbalance Severe protein calorie malnutrition Hypertension History of CVA Seizure disorder with witnessed seizure episode 01/07 Psychiatric disorder Presumed scabies, s/p Rx Thrombocytopenia-transient- resolved PLAN OF CARE JULIANA vent support, pulm toilet ABG stable on current settings, on SIMV mode 450-30-12 PEEP5 , no signs of resp distress on these settings keep settings as is and titrate as needed CXR 01/06 stable pulm toilet via HHN Theophylline level high -25; was dc BCX 1/2 +CONS likely contaminant, off Vanco ; repeated BCX 01/01 and 01/02 NGTD SCX + Proteus , was on Ceftriaxone as per ID recs for poss SBP in setting of GI bleeding - completed BCX 01/01 and 01/02 NGTD stool C dif 01/07 +, on oral vanco rapid COVID 19 NGT in ED aspiration precautions Venous Duplex BLE -negative, get SCD ( unable to give a/c given anemia) closely monitor hemodynamic status Protonix IV GT feeding stool OB positive transfuse to keep Hgb > 7. heme and GI follows s/p EGD 01/01 -> gastric ulcer across G tube site , no active bleeding HH at baseline monitor for any further episodes of Gi bleeding trend LFT-> trended down, hep panel NGT hx of cirrhosis- per GI management hypotension-> Midodrine, IV fluids -now dc and Dopamine gtt bradycardia -> Midodrine dose decreased cardio follows monitor renal parameters, lytes, avoid nephrotoxic BUN trending down, creat stable, likely prerenal due to dehydration replace e/lytes as per nephro recs ( K repalced today) monitor volumes seizure precautions, antiepileptic optimized as per neuro recs ( due to am witnessed seizure 01/07 lasting for about 2 min) ammonia 49, fup with further neuro recs EEG - mild to mod encephalopathy, single ictal episode CT head no acute IC pathology BP management with current regimen SNF meds supportive care dietary recs s/p 12/31 Rx for presumed scabies with permethrin and Ivermectin, repeated Ivermectin 01/08 case discussed and evaluated by supervising physician Jeyson Anderson MD 01/11/202108: Subjective Allergies: Coded Allergies: CARBAMAZEPINE (Verified Allergy, Unknown, 12/31/19) LORAZEPAM (Verified Allergy, Unknown, 12/31/19) Assessment/Plan Assessment/Plan Patient seen and examined with WELL DIGGER and I agree with the above assessment and plan. Ivanna Mora NP Jan 11, 2020 14:17 Jeyson Anderson MD Jan 11, 2020 21:09
--- NOTE | 2020-01-11 19:12 | General Progress Note ---
Assessment/Plan Status: stable Subjective Constitutional: Reports: no symptoms HEENT: Reports: no symptoms Cardiovascular: Reports: no symptoms Respiratory: Reports: no symptoms Gastrointestinal/Abdominal: Reports: no symptoms Genitourinary: Reports: no symptoms Neurologic/Psychiatric: Reports: no symptoms, seizure, weakness Endocrine: Reports: no symptoms Hematologic/Lymphatic: Reports: no symptoms Allergies: Coded Allergies: CARBAMAZEPINE (Verified Allergy, Unknown, 12/31/19) LORAZEPAM (Verified Allergy, Unknown, 12/31/19) Objective Last 24 Hour Vital Signs Date Time Temp Pulse Resp B/P (MAP) Pulse Ox O2 Delivery O2 Flow Rate FiO2 01/11/20 16:55 69 12 30 01/11/20 16:00 61 01/11/20 16:00 97.0 58 19 123/43 (69) 100 01/11/20 16:00 Mechanical Ventilator 15.0 01/11/20 16:00 30 01/11/20 14:33 61 12 30 01/11/20 13:23 53 12 30 01/11/20 12:00 Mechanical Ventilator 15.0 01/11/20 12:00 97.6 60 20 128/65 (86) 100 01/11/20 12:00 57 01/11/20 12:00 30 01/11/20 10:57 52 12 30 01/11/20 09:00 51 12 30 01/11/20 08:59 100 01/11/20 08:00 Mechanical Ventilator 15.0 01/11/20 08:00 57 01/11/20 08:00 97.9 59 18 101/63 (76) 96 01/11/20 08:00 30 01/11/20 07:04 61 12 30 01/11/20 07:00 101/63 01/11/20 06:54 87/46 01/11/20 05:02 53 12 30 01/11/20 04:19 100/53 01/11/20 04:00 97.6 62 19 100/53 (69) 100 01/11/20 04:00 Mechanical Ventilator 15.0 01/11/20 04:00 30 01/11/20 03:44 57 01/11/20 03:00 58 12 30 01/11/20 00:57 50 12 30 01/11/20 00:00 97.2 55 19 97/58 (71) 100 01/11/20 00:00 Mechanical Ventilator 15.0 01/10/20 23:28 52 01/10/20 23:05 55 12 30 01/10/20 21:10 92 23 30 01/10/20 20:00 97.7 70 19 120/75 (90) 100 01/10/20 20:00 30 01/10/20 20:00 Mechanical Ventilator 15.0 01/10/20 19:04 56 Intake and Output 01/10/20 01/11/20 19:00 07:00 Intake Total 1354.341 ml 1024.686 ml Output Total 400 ml 270 ml Balance 954.341 ml 754.686 ml Intake Free Water 350 ml 330 ml IV Total 344.341 ml 34.686 ml Tube Feeding 660 ml 660 ml Output Urine Total 300 ml 270 ml Stool Total 100 ml # Bowel Movements 3 2 Laboratory Tests 01/11/20 04:11: White Blood Count 7.6, Red Blood Count 2.99L, Hemoglobin 9.1L, Hematocrit 29.3L , Mean Corpuscular Volume 98, Mean Corpuscular Hemoglobin 30.5, Mean Corpuscular Hemoglobin Concent 31.2L, Red Cell Distribution Width 16.3H, Platelet Count 293, Mean Platelet Volume 6.3L, Neutrophils (%) (Auto) 47.8, Lymphocytes (%) (Auto) 29.4, Monocytes (%) (Auto) 8.2, Eosinophils (%) (Auto) 13.6H, Basophils (%) (Auto) 1.0, Sodium Level 143, Potassium Level 3.4L, Chloride Level 108H, Carbon Dioxide Level 28, Anion Gap 8, Blood Urea Nitrogen 14, Creatinine 0.5L, Estimat Glomerular Filtration Rate > 60, Glucose Level 69L , Calcium Level 9.2 Height (Feet): 5 Height (Inches): 1.00 Weight (Pounds): 82 General Appearance: no apparent distress, lethargic EENT: PERRL/EOMI Neck: non-tender, supple Cardiovascular: normal rate, regular rhythm, tachycardia Respiratory/Chest: lungs clear Abdomen: normal bowel sounds, non tender, soft, no organomegaly, no mass Extremities: non-tender Neurologic: alert, motor weakness, aphasia Glenny Bishop MD Jan 11, 2020 19:12
[2020-01-11] MEDS: OXcarbazepine 150mg tab ORAL SCH (20:27)
--- NOTE | 2020-01-11 22:28 | Psych Consult Progress Note ---
Psychiatry Progress Note Psychiatry Progress Note Subjective the pt is the same the pt attempts to pull out lines. awake confused Medications Current Medications Medications (Trade) Dose Ordered Sig/Villa Route PRN Reason Start Time Stop Time Status Last Admin Dose Admin Acetaminophen (Tylenol) 650 mg Q6H PRN GT Temp >100.5 01/01/20 11:00 01/31/20 10:59 01/07/20 08:57 Ascorbic Acid (Vitamin C) 500 mg DAILY ORAL 01/01/20 09:00 01/31/20 08:59 01/11/20 09:27 Dopamine HCl/ Dextrose 250 ml @ 4.184 mls/ hr Q24H IV 01/11/20 06:45 04/05/20 18:59 01/11/20 06:54 Famotidine (Pepcid) 20 mg BID ORAL 01/10/20 18:00 04/09/20 17:59 01/11/20 17:14 Gabapentin (Neurontin) 600 mg TID GT 01/08/20 13:00 02/07/20 12:59 01/11/20 17:14 Haloperidol Lactate (Haldol) 5 mg Q6H PRN IM Agitation 01/01/20 23:30 02/15/20 23:29 01/11/20 16:41 Levetiracetam (Keppra) 1,500 mg Q12HR GT 01/07/20 21:00 02/07/20 08:59 01/11/20 20:27 Levothyroxine Sodium (Synthroid) 75 mcg DAILY ORAL 01/01/20 09:00 01/31/20 08:59 01/11/20 09:27 Loperamide HCl (Imodium) 2 mg Q6H PRN NG Diarrhea 01/07/20 09:45 02/06/20 09:44 01/11/20 14:09 Midodrine (Pro-Amatine) 2.5 mg THREE TIMES A DAY ORAL 01/07/20 09:00 04/06/20 08:59 01/11/20 17:14 Multivitamins Therapeutic (Therapeutic Multivitamin) 1 ea DAILY ORAL 01/01/20 09:00 01/31/20 08:59 01/11/20 09:27 Ondansetron HCl (Zofran) 4 mg Q6H PRN ORAL Nausea & Vomiting 12/31/19 21:00 01/30/20 20:59 Oxcarbazepine (TrileptaL) 300 mg BEDTIME ORAL 01/10/20 21:00 02/07/20 20:59 01/11/20 20:27 Potassium Chloride (K-Dur) 20 meq TWICE A DAY GT 01/11/20 09:00 04/10/20 08:59 01/11/20 17:13 Thiamine HCl (Vitamin B1) 100 mg DAILY ORAL 01/01/20 09:00 01/31/20 08:59 01/11/20 09:27 Vancomycin HCl (Firvanq) 125 mg FOUR TIMES A DAY ORAL 01/10/20 13:00 01/17/20 12:59 01/11/20 20:27 Neurological/Psychiatric: Reports: no symptoms, seizure, weakness Allergies: Coded Allergies: CARBAMAZEPINE (Verified Allergy, Unknown, 12/31/19) LORAZEPAM (Verified Allergy, Unknown, 12/31/19) Objective Data Height (Feet): 5 Height (Inches): 1.00 Weight (Pounds): 82 General Appearance: no apparent distress, lethargic Additional Comments: waxing and waning consciousness. Affect is flat. Thought process, there is a paucity of thought content. Thought content, no suicidal or homicidal ideation. Cognition is impaired. Insight and judgment is impaired. Assessment/Plan [place] I: dc ativan cont haldol Status: stable Status Narrative dc ativan cont haldol Assessment/Plan: dc ativan cont haldol Rhonda Maxwell MD Jan 11, 2020 22:28
[2020-01-12] VITALS (7 sets, daily range): BP systolic 92–129; BP diastolic 51–97
[2020-01-12] MEDS: Haloperidol 5mg/ml Inj IM PRN (03:09)
[2020-01-12] MEDS: DOPamine 400mg/250ml 250 ML IV SCH (05:43)
[2020-01-12] MEDS: Vancomycin oral 125mg/2.5ml ORAL SCH ×4 (08:38→20:50)
[2020-01-12] MEDS: Thiamine 100mg tab ORAL SCH (08:38)
[2020-01-12] MEDS: Multivitamin w/Minerals tab ORAL SCH (08:38)
[2020-01-12] MEDS: Ascorbic Acid 500mg tab ORAL SCH (08:38)
[2020-01-12] MEDS: levETIRAcetam 500mg/5ml Liquid GT SCH ×2 (08:38→20:51)
--- NOTE | 2020-01-12 08:48 | General Progress Note ---
Assessment/Plan Problem List: (1) G tube feedings ICD Codes: Z93.1 - Gastrostomy status SNOMED: 378911776, 295578829, 292835626 (2) GI bleed ICD Codes: K92.2 - Gastrointestinal hemorrhage, unspecified SNOMED: 20186420 (3) Sepsis ICD Codes: A41.9 - Sepsis, unspecified organism SNOMED: 80390271 (4) Pneumonia ICD Codes: J18.9 - Pneumonia, unspecified organism SNOMED: 019212822 Status: stable Assessment/Plan: s/p EGD gastric ulcer no recurrent bleed G TF monitor H&H C. Diff positive dc ppi add vanco add pepcid will fu Subjective ROS Limited/Unobtainable: No Allergies: Coded Allergies: CARBAMAZEPINE (Verified Allergy, Unknown, 12/31/19) LORAZEPAM (Verified Allergy, Unknown, 12/31/19) Objective Last 24 Hour Vital Signs Date Time Temp Pulse Resp B/P (MAP) Pulse Ox O2 Delivery O2 Flow Rate FiO2 01/12/20 08:46 67 129/97 (108) 01/12/20 08:00 97.5 60 15 97/51 (66) 100 01/12/20 07:10 63 19 30 01/12/20 05:43 91/54 01/12/20 05:12 56 13 30 01/12/20 04:00 30 01/12/20 04:00 98.9 67 17 93/68 (76) 100 01/12/20 04:00 Mechanical Ventilator 15.0 01/12/20 03:28 74 01/12/20 03:10 63 16 30 01/12/20 01:00 63 15 30 01/12/20 00:00 Mechanical Ventilator 15.0 01/12/20 00:00 98.4 62 16 102/55 (71) 100 01/11/20 23:34 67 01/11/20 22:56 66 15 30 01/11/20 21:21 72 104/64 (77) 01/11/20 21:12 97.9 68 20 82/50 (61) 100 01/11/20 21:08 57 12 30 01/11/20 20:00 30 01/11/20 20:00 97.9 62 20 116/67 (83) 100 01/11/20 20:00 Mechanical Ventilator 15.0 01/11/20 19:53 60 01/11/20 19:02 62 17 30 01/11/20 16:55 69 12 30 01/11/20 16:00 61 01/11/20 16:00 97.0 58 19 123/43 (69) 100 01/11/20 16:00 Mechanical Ventilator 15.0 01/11/20 16:00 30 01/11/20 14:33 61 12 30 01/11/20 13:23 53 12 30 01/11/20 12:00 Mechanical Ventilator 15.0 01/11/20 12:00 97.6 60 20 128/65 (86) 100 01/11/20 12:00 57 01/11/20 12:00 30 01/11/20 10:57 52 12 30 01/11/20 09:00 51 12 30 01/11/20 08:59 100 Intake and Output 01/11/20 01/12/20 18:59 06:59 Intake Total 1356.024 ml 972.209 ml Output Total 550 ml 900 ml Balance 806.024 ml 72.209 ml Intake Free Water 450 ml 340 ml IV Total 246.024 ml 47.209 ml Tube Feeding 660 ml 585 ml Output Urine Total 450 ml 700 ml Stool Total 100 ml 200 ml # Bowel Movements 3 3 Height (Feet): 5 Height (Inches): 1.00 Weight (Pounds): 83 General Appearance: no apparent distress EENT: normal ENT inspection Neck: supple Cardiovascular: normal rate Respiratory/Chest: decreased breath sounds Abdomen: normal bowel sounds, non tender, soft Extremities: non-tender Satish Carrillo MD Jan 12, 2020 08:47
[2020-01-12] MEDS: Gabapentin 300 MG/6 ML Soln GT SCH ×3 (09:00→17:33)
--- NOTE | 2020-01-12 10:39 | Hematology/Onc Progress Note ---
Assessment/Plan Assessment/Plan # Thrombocytopenia med related v labs error --> plt trend 167-->61-->227 --> meds have been reviewed --> no hep or lovenox (if less than 50k plt) # Anemia rule out underlying gi bleed --> Dr. Carrillo has been consulted-->endosco gastric ulceration --> trend hgb 7-->7.4-->7.9-->8.1->9.6-->8.5->9.1 --> anemia panel ordered-->reviewed --> prn transfusion --> protonix started # Leukocytosis is likely related to pna on imaging --> abx has been started --> if wbc worsens, consider abx vanc/zosyn--> ceftriaxone --> smear is noted --> wbc 25-->15-->14-->16->7.6 # Sepsis --> on abx for pna # Pneumonia --> pulm, Dr. 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 automotive service consultant care, will follow Subjective Constitutional: Denies: no symptoms, chills, fever, malaise, weakness, other HEENT: Denies: no symptoms, eye pain, blurred vision, tearing, double vision, ear pain, ear discharge, nose pain, nose congestion, throat pain, throat swelling, mouth pain, mouth swelling, other Cardiovascular: Denies: no symptoms, chest pain, edema, irregular heart rate, lightheadedness, palpitations, syncope, other Genitourinary: Denies: no symptoms, burning, discharge, frequency, flank pain, hematuria, incontinence, pain, urgency, other Neurologic/Psychiatric: Denies: no symptoms, anxiety, depressed, emotional problems, headache, numbness, paresthesia, pre-existing deficit, seizure, tingling, tremors, weakness, other Endocrine: Denies: no symptoms, excessive sweating, flushing, intolerance to cold, intolerance to heat, increased hunger, increased thirst, increased urine, unexplained weight gain, unexplained weight loss, other Hematologic/Lymphatic: Denies: no symptoms, anemia, easy bleeding, easy bruising, adenopathy, other Allergies: Coded Allergies: CARBAMAZEPINE (Verified Allergy, Unknown, 12/31/19) LORAZEPAM (Verified Allergy, Unknown, 12/31/19) Subjective 01/01 altered, trach, no bleedin wbc improved on abx, seen by gi 01/02 egd study noted, also with plts 61k, have vitaly Armendariz Rn, will recheck cbc 01/03 remains agitated, vitaly rn, no bleeding, cbc noted as well as id recs 01/04 on vent, with melena overnight, no bleeding, vitaly rn, labs reviewed 01/06 on vent, remains agitated, no bleeding, vitaly rn, smear is noted 01/07 on vent, restless, asymptomatic, noncooperative 01/[address] John obtained, reviewed, meds adjusted, eeg pending 01/09 labs noted, no bleeding, ativan has been discontinued, meds reviewed 01/10 trach to vent, agitated, with wrist restraints, no major changes, no bleeding 01/11 labs are reviewed, on trach to vent, no bleeding, agitated overnight, no complaints Objective Objective Current Medications Medications (Trade) Dose Ordered Sig/Villa Route PRN Reason Start Time Stop Time Status Last Admin Dose Admin Acetaminophen (Tylenol) 650 mg Q6H PRN GT Temp >100.5 01/01/20 11:00 01/31/20 10:59 01/07/20 08:57 Ascorbic Acid (Vitamin C) 500 mg DAILY ORAL 01/01/20 09:00 01/31/20 08:59 01/12/20 08:38 Dopamine HCl/ Dextrose 250 ml @ 4.184 mls/ hr Q24H IV 01/11/20 06:45 04/05/20 18:59 01/12/20 05:43 Famotidine (Pepcid) 20 mg BID ORAL 01/10/20 18:00 04/09/20 17:59 01/12/20 08:38 Gabapentin (Neurontin) 600 mg TID GT 01/08/20 13:00 02/07/20 12:59 01/12/20 09:00 Haloperidol Lactate (Haldol) 5 mg Q6H PRN IM Agitation 01/01/20 23:30 02/15/20 23:29 01/12/20 03:09 Levetiracetam (Keppra) 1,500 mg Q12HR GT 01/07/20 21:00 02/07/20 08:59 01/12/20 08:38 Levothyroxine Sodium (Synthroid) 75 mcg DAILY ORAL 01/01/20 09:00 01/31/20 08:59 01/12/20 08:38 Loperamide HCl (Imodium) 2 mg Q6H PRN NG Diarrhea 01/07/20 09:45 02/06/20 09:44 01/11/20 14:09 Midodrine (Pro-Amatine) 2.5 mg THREE TIMES A DAY ORAL 01/07/20 09:00 04/06/20 08:59 01/12/20 08:38 Multivitamins Therapeutic (Therapeutic Multivitamin) 1 ea DAILY ORAL 01/01/20 09:00 01/31/20 08:59 01/12/20 08:38 Ondansetron HCl (Zofran) 4 mg Q6H PRN ORAL Nausea & Vomiting 12/31/19 21:00 01/30/20 20:59 Oxcarbazepine (TrileptaL) 300 mg BEDTIME ORAL 01/10/20 21:00 02/07/20 20:59 01/11/20 20:27 Potassium Chloride (K-Dur) 20 meq TWICE A DAY GT 01/11/20 09:00 04/10/20 08:59 01/12/20 08:38 Thiamine HCl (Vitamin B1) 100 mg DAILY ORAL 01/01/20 09:00 01/31/20 08:59 01/12/20 08:38 Vancomycin HCl (Firvanq) 125 mg FOUR TIMES A DAY ORAL 01/10/20 13:00 01/17/20 12:59 01/12/20 08:38 Last 24 Hour Vital Signs Date Time Temp Pulse Resp B/P (MAP) Pulse Ox O2 Delivery O2 Flow Rate FiO2 01/12/20 09:36 100 01/12/20 09:10 53 14 30 01/12/20 08:46 67 129/97 (108) 01/12/20 08:00 97.5 60 15 97/51 (66) 100 01/12/20 07:43 57 01/12/20 07:10 63 19 30 01/12/20 05:43 91/54 01/12/20 05:12 56 13 30 01/12/20 04:00 30 01/12/20 04:00 98.9 67 17 93/68 (76) 100 01/12/20 04:00 Mechanical Ventilator 15.0 01/12/20 03:28 74 01/12/20 03:10 63 16 30 01/12/20 01:00 63 15 30 01/12/20 00:00 Mechanical Ventilator 15.0 01/12/20 00:00 98.4 62 16 102/55 (71) 100 01/11/20 23:34 67 01/11/20 22:56 66 15 30 01/11/20 21:21 72 104/64 (77) 01/11/20 21:12 97.9 68 20 82/50 (61) 100 01/11/20 21:08 57 12 30 01/11/20 20:00 30 01/11/20 20:00 97.9 62 20 116/67 (83) 100 01/11/20 20:00 Mechanical Ventilator 15.0 01/11/20 19:53 60 01/11/20 19:02 62 17 30 01/11/20 16:55 69 12 30 01/11/20 16:00 61 01/11/20 16:00 97.0 58 19 123/43 (69) 100 01/11/20 16:00 Mechanical Ventilator 15.0 01/11/20 16:00 30 01/11/20 14:33 61 12 30 01/11/20 13:23 53 12 30 01/11/20 12:00 Mechanical Ventilator 15.0 01/11/20 12:00 97.6 60 20 128/65 (86) 100 01/11/20 12:00 57 01/11/20 12:00 30 01/11/20 10:57 52 12 30 01/11/20 09:00 51 12 30 01/11/20 08:59 100 01/11/20 08:00 Mechanical Ventilator 15.0 01/11/20 08:00 57 01/11/20 08:00 97.9 59 18 101/63 (76) 96 01/11/20 08:00 30 01/11/20 07:04 61 12 30 01/11/20 07:00 101/63 01/11/20 06:54 87/46 01/11/20 05:02 53 12 30 8/27/20 04:19 100/53 01/11/20 04:00 97.6 62 19 100/53 (69) 100 01/11/20 04:00 Mechanical Ventilator 15.0 01/11/20 04:00 30 01/11/20 03:44 57 01/11/20 03:00 58 12 30 01/11/20 00:57 50 12 30 01/11/20 00:00 97.2 55 19 97/58 (71) 100 01/11/20 00:00 Mechanical Ventilator 15.0 01/10/20 23:28 52 01/10/20 23:05 55 12 30 01/10/20 21:10 92 23 30 01/10/20 20:00 97.7 70 19 120/75 (90) 100 01/10/20 20:00 30 01/10/20 20:00 Mechanical Ventilator 15.0 01/10/20 19:04 56 01/10/20 19:00 63 15 30 01/10/20 17:20 56 19 30 01/10/20 16:00 30 01/10/20 16:00 57 01/10/20 16:00 97.7 54 19 100/61 (74) 100 01/10/20 16:00 Mechanical Ventilator 15.0 01/10/20 15:03 72 19 30 01/10/20 12:47 63 19 30 01/10/20 12:00 30 01/10/20 12:00 Mechanical Ventilator 15.0 01/10/20 12:00 70 01/10/20 12:00 98.8 89 20 120/74 (89) 100 01/10/20 11:05 78 19 30 Intake and Output 01/11/20 01/12/20 19:00 07:00 Intake Total 1356.024 ml 917.209 ml Output Total 550 ml 900 ml Balance 806.024 ml 17.209 ml Intake Free Water 450 ml 340 ml IV Total 246.024 ml 47.209 ml Tube Feeding 660 ml 530 ml Output Urine Total 450 ml 700 ml Stool Total 100 ml 200 ml # Bowel Movements 3 3 Labs Test 01/09/20 11:00 01/10/20 04:55 01/11/20 04:11 Theophylline Level 25.1 ug/mL (10-20) White Blood Count 9.5 K/UL (4.8-10.8) 7.6 K/UL (4.8-10.8) Red Blood Count 2.79 M/UL (4.20-5.40) 2.99 M/UL (4.20-5.40) Hemoglobin 8.5 G/DL (12.0-16.0) 9.1 G/DL (12.0-16.0) Hematocrit 26.8 % (37.0-47.0) 29.3 % (37.0-47.0) Mean Corpuscular Volume 96 FL (80-99) 98 FL (80-99) Mean Corpuscular Hemoglobin 30.4 PG (27.0-31.0) 30.5 PG (27.0-31.0) Mean Corpuscular Hemoglobin Concent 31.6 G/DL (32.0-36.0) 31.2 G/DL (32.0-36.0) Red Cell Distribution Width 16.3 % (11.6-14.8) 16.3 % (11.6-14.8) Platelet Count 339 K/UL (150-450) 293 K/UL (150-450) Mean Platelet Volume 6.4 FL (6.5-10.1) 6.3 FL (6.5-10.1) Neutrophils (%) (Auto) 65.6 % (45.0-75.0) 47.8 % (45.0-75.0) Lymphocytes (%) (Auto) 19.7 % (20.0-45.0) 29.4 % (20.0-45.0) Monocytes (%) (Auto) 9.4 % (1.0-10.0) 8.2 % (1.0-10.0) Eosinophils (%) (Auto) 4.2 % (0.0-3.0) 13.6 % (0.0-3.0) Basophils (%) (Auto) 1.1 % (0.0-2.0) 1.0 % (0.0-2.0) Sodium Level 141 MMOL/L (136-145) 143 MMOL/L (136-145) Potassium Level 3.3 MMOL/L (3.5-5.1) 3.4 MMOL/L (3.5-5.1) Chloride Level 107 MMOL/L (98-107) 108 MMOL/L (98-107) Carbon Dioxide Level 26 MMOL/L (21-32) 28 MMOL/L (21-32) Anion Gap 8 mmol/L (5-15) 8 mmol/L (5-15) Blood Urea Nitrogen 19 mg/dL (7-18) 14 mg/dL (7-18) Creatinine 0.5 MG/DL (0.55-1.30) 0.5 MG/DL (0.55-1.30) Estimat Glomerular Filtration Rate > 60 mL/min (>60) > 60 mL/min (>60) Glucose Level 104 MG/DL (74-106) 69 MG/DL (74-106) Calcium Level 8.9 MG/DL (8.5-10.1) 9.2 MG/DL (8.5-10.1) Height (Feet): 5 Height (Inches): 1.00 Weight (Pounds): 83 Objective Vital Signs General Appearance: ++ cachectic, chronically ill HEENT: normocephalic, atraumatic ++ trach Resp: other -. vent ++ Cardiovascular: regular rate, rhythm, no edema Gastrointestinal: gtube in place, without erythema Rectal: other - Hemoccult positive [place]: back normal, gait/station normal, non-tender Lymphatic: no adenopathy Baltazar Cortes MD Jan 12, 2020 10:39
--- NOTE | 2020-01-12 10:54 | Pulmonology Progress Note ---
Ivanna Mora BOTTLE PACKER 01/12/20 1054: Subjective ROS Limited/Unobtainable: Yes Allergies: Coded Allergies: CARBAMAZEPINE (Verified Allergy, Unknown, 12/31/19) LORAZEPAM (Verified Allergy, Unknown, 12/31/19) Subjective no signs of resp distress on current settings remains afebrile, no leukocytosis CXR 01/06 stable ABG stable on SIMV mode stool C dif + 01/07 on po Vanco prior episodes of witnessed seizure x2 EEG abnormal no further seizure activity remains bradycardic in 50th K-3.4 Objective Last 24 Hour Vital Signs Date Time Temp Pulse Resp B/P (MAP) Pulse Ox O2 Delivery O2 Flow Rate FiO2 01/12/20 09:36 100 01/12/20 09:10 53 14 30 01/12/20 08:46 67 129/97 (108) 01/12/20 08:00 97.5 60 15 97/51 (66) 100 01/12/20 07:43 57 01/12/20 07:10 63 19 30 01/12/20 05:43 91/54 01/12/20 05:12 56 13 30 01/12/20 04:00 30 01/12/20 04:00 98.9 67 17 93/68 (76) 100 01/12/20 04:00 Mechanical Ventilator 15.0 01/12/20 03:28 74 01/12/20 03:10 63 16 30 01/12/20 01:00 63 15 30 01/12/20 00:00 Mechanical Ventilator 15.0 01/12/20 00:00 98.4 62 16 102/55 (71) 100 01/11/20 23:34 67 01/11/20 22:56 66 15 30 01/11/20 21:21 72 104/64 (77) 01/11/20 21:12 97.9 68 20 82/50 (61) 100 01/11/20 21:08 57 12 30 01/11/20 20:00 30 01/11/20 20:00 97.9 62 20 116/67 (83) 100 01/11/20 20:00 Mechanical Ventilator 15.0 01/11/20 19:53 60 01/11/20 19:02 62 17 30 01/11/20 16:55 69 12 30 01/11/20 16:00 61 01/11/20 16:00 97.0 58 19 123/43 (69) 100 01/11/20 16:00 Mechanical Ventilator 15.0 01/11/20 16:00 30 01/11/20 14:33 61 12 30 01/11/20 13:23 53 12 30 01/11/20 12:00 Mechanical Ventilator 15.0 01/11/20 12:00 97.6 60 20 128/65 (86) 100 01/11/20 12:00 57 01/11/20 12:00 30 01/11/20 10:57 52 12 30 Intake and Output 01/11/20 01/12/20 19:00 07:00 Intake Total 1356.024 ml 917.209 ml Output Total 550 ml 900 ml Balance 806.024 ml 17.209 ml Intake Free Water 450 ml 340 ml IV Total 246.024 ml 47.209 ml Tube Feeding 660 ml 530 ml Output Urine Total 450 ml 700 ml Stool Total 100 ml 200 ml # Bowel Movements 3 3 Objective General Appearance: bedridden, pale, chronically ill looking, older than her biological age ; vent dependent female ; on vent SIMV 450-30%-12, PEEP 5 Lines, tubes and drains: peripheral, trach HEENT: normocephalic, atraumatic Neck: trach - Portex #7, secretions small amount, yellow color, thin consistency Respiratory/Chest: CTAB Cardiovascular/Chest: bradycardia in 50th , regular rhythm Abdomen: non tender, soft, G tube Genitourinary/Rectal: [place] Extremities: no edema, muscle atrophy Neurologic: abnormal gait, poorly responsive, more awake , eyes open Musculoskeletal: atrophy Skin: multiple tattoos Current Medications Medications (Trade) Dose Ordered Sig/Villa Route PRN Reason Start Time Stop Time Status Last Admin Dose Admin Acetaminophen (Tylenol) 650 mg Q6H PRN GT Temp >100.5 01/01/20 11:00 01/31/20 10:59 01/07/20 08:57 Ascorbic Acid (Vitamin C) 500 mg DAILY ORAL 01/01/20 09:00 01/31/20 08:59 01/12/20 08:38 Dopamine HCl/ Dextrose 250 ml @ 4.184 mls/ hr Q24H IV 01/11/20 06:45 04/05/20 18:59 01/12/20 05:43 Famotidine (Pepcid) 20 mg BID ORAL 01/10/20 18:00 04/09/20 17:59 01/12/20 08:38 Gabapentin (Neurontin) 600 mg TID GT 01/08/20 13:00 02/07/20 12:59 01/12/20 09:00 Haloperidol Lactate (Haldol) 5 mg Q6H PRN IM Agitation 01/01/20 23:30 02/15/20 23:29 01/12/20 03:09 Levetiracetam (Keppra) 1,500 mg Q12HR GT 01/07/20 21:00 02/07/20 08:59 01/12/20 08:38 Levothyroxine Sodium (Synthroid) 75 mcg DAILY ORAL 01/01/20 09:00 01/31/20 08:59 01/12/20 08:38 Loperamide HCl (Imodium) 2 mg Q6H PRN NG Diarrhea 01/07/20 09:45 02/06/20 09:44 01/11/20 14:09 Midodrine (Pro-Amatine) 2.5 mg THREE TIMES A DAY ORAL 01/07/20 09:00 04/06/20 08:59 01/12/20 08:38 Multivitamins Therapeutic (Therapeutic Multivitamin) 1 ea DAILY ORAL 01/01/20 09:00 01/31/20 08:59 01/12/20 08:38 Ondansetron HCl (Zofran) 4 mg Q6H PRN ORAL Nausea & Vomiting 12/31/19 21:00 01/30/20 20:59 Oxcarbazepine (TrileptaL) 300 mg BEDTIME ORAL 01/10/20 21:00 02/07/20 20:59 01/11/20 20:27 Potassium Chloride (K-Dur) 20 meq TWICE A DAY GT 01/11/20 09:00 04/10/20 08:59 01/12/20 08:38 Thiamine HCl (Vitamin B1) 100 mg DAILY ORAL 01/01/20 09:00 01/31/20 08:59 01/12/20 08:38 Vancomycin HCl (Firvanq) 125 mg FOUR TIMES A DAY ORAL 01/10/20 13:00 01/17/20 12:59 01/12/20 08:38 Assessment/Plan Assessment/Plan ASSESSMENT VDRF/trach status Sepsis Possible pneumonia recurrent GI bleeding C dif colitis Anemia secondary to GI bleeding Aspiration risk Dysphagia, feeding by G-tube Encephalopathy Acute kidney injury likely secondary to dehydration Bradycardia Electrolyte imbalance Severe protein calorie malnutrition Hypertension History of CVA Seizure disorder with witnessed seizure episode 01/07 Psychiatric disorder Presumed scabies, s/p Rx Thrombocytopenia-transient- resolved PLAN OF CARE JULIANA vent support, pulm toilet ABG stable on current settings, on SIMV mode 450-30-12 PEEP5 , no signs of resp distress on these settings keep settings as is and titrate as needed CXR 01/06 stable pulm toilet via HHN Theophylline level high -25; was dc BCX 1/ +CONS likely contaminant, off Vanco ; repeated BCX 01/01 and 01/02 NGTD SCX + Proteus , was on Ceftriaxone as per ID recs for poss SBP in setting of GI bleeding - completed BCX 01/01 and 01/02 NGTD stool C dif 01/07 +, on oral vanco rapid COVID 19 NGT in ED aspiration precautions Venous Duplex BLE -negative, get SCD ( unable to give a/c given anemia) closely monitor hemodynamic status Protonix IV GT feeding stool OB positive transfuse to keep Hgb > 7. heme and GI follows s/p EGD 01/01 -> gastric ulcer across G tube site , no active bleeding HH at baseline monitor for any further episodes of Gi bleeding trend LFT-> trended down, hep panel NGT hx of cirrhosis- per GI management hypotension-> Midodrine, IV fluids -now dc and Dopamine gtt bradycardia -> Midodrine dose decreased and prior Theophylline was started by primary but dc due to increased level cardio follows monitor renal parameters, lytes, avoid nephrotoxic BUN trending down, creat stable, likely prerenal due to dehydration replace e/lytes as per nephro recs monitor volumes seizure precautions, antiepileptic optimized as per neuro recs ammonia 49, fup with further neuro recs EEG - grossly abnormal; mild to mod encephalopathy, single ictal episode CT head no acute IC pathology BP management with current regimen SNF meds supportive care dietary recs s/p 12/31 Rx for presumed scabies with permethrin and Ivermectin, repeated Ivermectin 01/08 case discussed and evaluated by supervising physician Jeyson Anderson MD 01/12/20 1424: Subjective Allergies: Coded Allergies: CARBAMAZEPINE (Verified Allergy, Unknown, 12/31/19) LORAZEPAM (Verified Allergy, Unknown, 12/31/19) Assessment/Plan Assessment/Plan Patient seen and examined with BOTTLE PACKER. Agree with above A&P as it reflects our joint deliberations. Ivanna Mora NP Jan 12, 2020 10:54 Jeyson Anderson MD Jan 12, 2020 14:24
--- NOTE | 2020-01-12 11:57 | General Progress Note ---
Assessment/Plan Status: stable Assessment/Plan: Patient will receive 500 cc normal saline bolus now will be repeated if blood pressure remains below 90 patient will be followed closely during the day in regard to blood pressure seizures and mental status repeat laboratory tests will be done in a.mDominik Harrison Subjective Constitutional: Reports: other - Patient is lethargic tensive usual episode HEENT: Reports: no symptoms Cardiovascular: Reports: other - To be in distress today than she was yesterday Respiratory: Reports: other - To be short of breath Gastrointestinal/Abdominal: Reports: no symptoms, other - Her urine output did not decline Genitourinary: Reports: no symptoms Neurologic/Psychiatric: Reports: other - She appears morelethargic and less expensive than in the previous day Allergies: Coded Allergies: CARBAMAZEPINE (Verified Allergy, Unknown, 12/31/19) LORAZEPAM (Verified Allergy, Unknown, 12/31/19) Objective Last 24 Hour Vital Signs Date Time Temp Pulse Resp B/P (MAP) Pulse Ox O2 Delivery O2 Flow Rate FiO2 01/12/20 09:36 100 01/12/20 09:10 53 14 30 01/12/20 08:46 67 129/97 (108) 01/12/20 08:00 Mechanical Ventilator 15.0 01/12/20 08:00 97.5 60 15 97/51 (66) 100 01/12/20 08:00 30 01/12/20 07:43 57 01/12/20 07:10 63 19 30 01/12/20 05:43 91/54 01/12/20 05:12 56 13 30 01/12/20 04:00 30 01/12/20 04:00 98.9 67 17 93/68 (76) 100 01/12/20 04:00 Mechanical Ventilator 15.0 01/12/20 03:28 74 01/12/20 03:10 63 16 30 01/12/20 01:00 63 15 30 01/12/20 00:00 Mechanical Ventilator 15.0 01/12/20 00:00 98.4 62 16 102/55 (71) 100 01/11/20 23:34 67 01/11/20 22:56 66 15 30 01/11/20 21:21 72 104/64 (77) 01/11/20 21:12 97.9 68 20 82/50 (61) 100 01/11/20 21:08 57 12 30 8/27/20 20:00 30 01/11/20 20:00 97.9 62 20 116/67 (83) 100 01/11/20 20:00 Mechanical Ventilator 15.0 01/11/20 19:53 60 01/11/20 19:02 62 17 30 01/11/20 16:55 69 12 30 01/11/20 16:00 61 01/11/20 16:00 97.0 58 19 123/43 (69) 100 01/11/20 16:00 Mechanical Ventilator 15.0 01/11/20 16:00 30 01/11/20 14:33 61 12 30 01/11/20 13:23 53 12 30 01/11/20 12:00 Mechanical Ventilator 15.0 01/11/20 12:00 97.6 60 20 128/65 (86) 100 01/11/20 12:00 57 01/11/20 12:00 30 Intake and Output 01/11/20 01/12/20 19:00 07:00 Intake Total 1356.024 ml 917.209 ml Output Total 550 ml 900 ml Balance 806.024 ml 17.209 ml Intake Free Water 450 ml 340 ml IV Total 246.024 ml 47.209 ml Tube Feeding 660 ml 530 ml Output Urine Total 450 ml 700 ml Stool Total 100 ml 200 ml # Bowel Movements 3 3 Height (Feet): 5 Height (Inches): 1.00 Weight (Pounds): 83 General Appearance: confused, cachetic EENT: other - Mucous membranes remain moist Neck: supple Cardiovascular: normal rate, regular rhythm, no JVD Respiratory/Chest: lungs clear, normal breath sounds, no respiratory distress Abdomen: non tender, soft, no mass Extremities: non-tender Neurologic: other - Less responsive Glenny Bishop MD Jan 12, 2020 11:57
[2020-01-12] MEDS ORDERED: Sodium Chloride 550 ML IV SCH (12:00)
--- NOTE | 2020-01-12 12:16 | Nephrology Progress Note ---
Assessment/Plan Problem List: (1) RICHARD (acute kidney injury) (2) Dehydration (3) Anemia (4) GI bleed (5) Malnutrition (6) Seizure disorder (7) Electrolyte imbalance Assessment Renal failure, in the form of prerenal azotemia, most likely secondary to GI bleed GI bleed, leading to severe anemia Sepsis, pneumonia Chronic tracheostomy, ventilator dependent History of CVA History of seizure disorder History of psychiatric disorder Severe malnutrition Electrolyte abnormalities Plan January 11 no labs drawn today stable from renal standpoint of view January 10: Labs reviewed. Potassium supplement given. Continue per consultants. January 09: Lab reviewed. Potassium supplement given. IV fluid discontinued. January 08: Lab reviewed. Renal parameters stable. Continue per consultants. January 07: Lab reviewed. Renal parameters stable. Continue per consultants. January 06: Lab reviewed. Stable from renal standpoint of view. January 05: Labs reviewed. Stable from renal standpoint of view. Continue per consultants. January 04: No labs drawn today. Will check labs tomorrow. Continue per consultants. January 03: Lab reviewed. Renal parameters stable. IV fluid discontinued. High LFTs declining. Continue same. January 02: Lab reviewed. Renal parameters stable. Continue per PMD and consultants. LFTs remain elevated. Continue to monitor. Continue slow hydration Discontinue blood pressure medications as her blood pressure is low Discontinue diuretics Monitor renal parameters Transfusion as needed GI evaluation Correct electrolyte abnormalities Check B12 level, folate, and thyroid function tests: Results noted Subjective ROS Limited/Unobtainable: Yes Objective Objective Last 24 Hour Vital Signs Date Time Temp Pulse Resp B/P (MAP) Pulse Ox O2 Delivery O2 Flow Rate FiO2 01/12/20 11:20 58 16 30 01/12/20 09:36 100 01/12/20 09:10 53 14 30 01/12/20 08:46 67 129/97 (108) 01/12/20 08:00 Mechanical Ventilator 15.0 01/12/20 08:00 97.5 60 15 97/51 (66) 100 01/12/20 08:00 30 01/12/20 07:43 57 01/12/20 07:10 63 19 30 01/12/20 05:43 91/54 01/12/20 05:12 56 13 30 01/12/20 04:00 30 01/12/20 04:00 98.9 67 17 93/68 (76) 100 8/28/20 04:00 Mechanical Ventilator 15.0 01/12/20 03:28 74 01/12/20 03:10 63 16 30 01/12/20 01:00 63 15 30 01/12/20 00:00 Mechanical Ventilator 15.0 01/12/20 00:00 98.4 62 16 102/55 (71) 100 01/11/20 23:34 67 01/11/20 22:56 66 15 30 01/11/20 21:21 72 104/64 (77) 01/11/20 21:12 97.9 68 20 82/50 (61) 100 01/11/20 21:08 57 12 30 01/11/20 20:00 30 01/11/20 20:00 97.9 62 20 116/67 (83) 100 01/11/20 20:00 Mechanical Ventilator 15.0 01/11/20 19:53 60 01/11/20 19:02 62 17 30 01/11/20 16:55 69 12 30 01/11/20 16:00 61 01/11/20 16:00 97.0 58 19 123/43 (69) 100 01/11/20 16:00 Mechanical Ventilator 15.0 01/11/20 16:00 30 01/11/20 14:33 61 12 30 01/11/20 13:23 53 12 30 Intake and Output 01/11/20 01/12/20 19:00 07:00 Intake Total 1356.024 ml 917.209 ml Output Total 550 ml 900 ml Balance 806.024 ml 17.209 ml Intake Free Water 450 ml 340 ml IV Total 246.024 ml 47.209 ml Tube Feeding 660 ml 530 ml Output Urine Total 450 ml 700 ml Stool Total 100 ml 200 ml # Bowel Movements 3 3 Height (Feet): 5 Height (Inches): 1.00 Weight (Pounds): 83 General Appearance: no apparent distress EENT: other - Trach and vent Cardiovascular: normal rate Respiratory/Chest: decreased breath sounds Abdomen: soft Chivo Holloway MD Jan 12, 2020 12:16
--- NOTE | 2020-01-12 13:21 | Surgery Progress Note ---
Surgery Progress Note Subjective Symptoms: improved, tolerating diet, voiding well, passing flatus Objective Last 24 Hour Vital Signs Date Time Temp Pulse Resp B/P (MAP) Pulse Ox O2 Delivery O2 Flow Rate FiO2 01/12/20 12:00 97.5 60 15 100/78 (85) 98 01/12/20 11:20 58 16 30 01/12/20 09:36 100 01/12/20 09:10 53 14 30 01/12/20 08:46 67 129/97 (108) 01/12/20 08:00 Mechanical Ventilator 15.0 01/12/20 08:00 97.5 60 15 97/51 (66) 100 01/12/20 08:00 30 01/12/20 07:43 57 01/12/20 07:10 63 19 30 01/12/20 05:43 91/54 01/12/20 05:12 56 13 30 01/12/20 04:00 30 01/12/20 04:00 98.9 67 17 93/68 (76) 100 01/12/20 04:00 Mechanical Ventilator 15.0 01/12/20 03:28 74 01/12/20 03:10 63 16 30 01/12/20 01:00 63 15 30 01/12/20 00:00 Mechanical Ventilator 15.0 01/12/20 00:00 98.4 62 16 102/55 (71) 100 01/11/20 23:34 67 01/11/20 22:56 66 15 30 01/11/20 21:21 72 104/64 (77) 01/11/20 21:12 97.9 68 20 82/50 (61) 100 01/11/20 21:08 57 12 30 01/11/20 20:00 30 01/11/20 20:00 97.9 62 20 116/67 (83) 100 01/11/20 20:00 Mechanical Ventilator 15.0 01/11/20 19:53 60 01/11/20 19:02 62 17 30 01/11/20 16:55 69 12 30 01/11/20 16:00 61 01/11/20 16:00 97.0 58 19 123/43 (69) 100 01/11/20 16:00 Mechanical Ventilator 15.0 01/11/20 16:00 30 01/11/20 14:33 61 12 30 01/11/20 13:23 53 12 30 I&O Intake and Output 01/11/20 01/12/20 19:00 07:00 Intake Total 1356.024 ml 917.209 ml Output Total 550 ml 900 ml Balance 806.024 ml 17.209 ml Intake Free Water 450 ml 340 ml IV Total 246.024 ml 47.209 ml Tube Feeding 660 ml 530 ml Output Urine Total 450 ml 700 ml Stool Total 100 ml 200 ml # Bowel Movements 3 3 Dressing: saturated Cardiovascular: RSR Respiratory: clear, decreased breath sounds Abdomen: soft, non-tender, present bowel sounds Extremities: no tenderness, no cyanosis Plan Problems: (1) Pneumonia (2) Sepsis Assessment & Plan: leukocytosis anemia lactic acidosis agree with GI recommend EGD planned for 12/31 hold feeding for now trend h/h monitor for bleeding no acute hemorrhage will be available in event needs exploration for hemostasis prbc as per heme thank you will follow with recs cont abx Pt presented on admission in emaciated state. Pt has tracheostomy and GT. NO skin concerns noted to skin under collar of trach. NO erythema or evidence of skin erosion at GT site. Pt noted to have scaly pimple-like rash with webbing noted to R and L axillae, undersides of both breasts, Bilat groin and lower back. Tracking and webbing noted to hands and feet. Pt restless and scratching at skin. Non-Blanching erythema without induration or fluctuance noted to R and L hips and trochanteric areas.Non-blanching erythema noted along spine. Non-Blanching erythema without induration noted to Sacrum. Non-Blanching erythema noted to R and L Malleoli and both heels. Tx.Plan: Please apply Cavilon Skin Barrier to each bony Prominences at risks for Skin Breakdown. Cover each area with Optifoam drsgs. Change every 7 days and prn. Apply Moisture Barrier Paste to Sacrum. Cover with Optifoam drsg. Change every 3 days and prn. Reposition at least every 2hours or as tolerated. Off-load heels with pillow. APM/EMELI Mattress overlay. improving cont current care plan (3) GI bleed (4) G tube feedings Assessment & Plan: DAILY ESTIMATED NEEDS: Needs based on Underweight, critical care 37.3kg 30-40 kcals/kg 9281-9604 total kcals 1.25-2 g protein/kg 47-75 g total protein 25-35 mL/kg [phone] total fluid mLs NUTRITION DIAGNOSIS: Increased kcal and pro needs r/t underweight status as evidenced by BMI 14.1, pt is 68% of ideal body weight w/ generalized severe wasting, trach and peg dep. CURRENT TF:Vital AF 1.2 @55 x20 hrs ENTERAL NUTRITION RECOMMENDATIONS: Vital AF 1.2 @ 55ml/hr x20 hrs to provide 1100ml 1320kcal 83g prot, 892ml free water - Rec to continue elemental TF formula while stool C-diff positive, +LBM - HOLD 1HR BEFORE AND AFTER SYNTHROID MEDS - Flush per MD. HOB over 30 degrees ADDITIONAL RECOMMENDATIONS: 1) Per SNF: 5'4" and 81# Maintain calibrated bed scale wts w/ added P200 mattress 2) Lytes daily madhav w/ loose stools, replete as needed 3) Skin integrity: Continue BRIAN VIA GT BID + Vit C 4) Accuchecks for Hypoglycemia 5) Add probiotics for stool C-diff+ . [place] Jan 12, 2020 13:21
--- NOTE | 2020-01-12 13:30 | Infectious Diseases Prog Note ---
Assessment/Plan 39yo F with: Sepsis Fever to 101.5>>Low grade ; SP Possible pna on CXR Leukocytosis to 24, now resolved Cdiff colitis -cdif toxin + Recurrent GIB 01/06 u/aneg 12/30 BCx 1/2 +CONS, likely contaminant 12/30 UA neg, COVID rapid Ag neg 12/30 CXR 1. Density overlying the bilateral lung apices. May represent pleural thickening, multifocal airspace opacities, versus summation artifact. 01/01 BCx Neg 01/02 BCx Neg SEizure episode -01/10 CT head: Third and lateral ventriculomegaly. Associated enlargement of the extra axial CSF spaces indicates that this is probably due to central volume loss, but the possibility of hydrocephalus should also be considered. At the degree of volume loss is considerably out of proportion to patient's age. Periventricular deep white matter low-attenuation. Probably on the basis of microvascular ischemic change but given patient's age the possibility of demyelinating disease should be considered as well.Negative for acute intracranial bleed or mass effect Possible Scabies SP tx w/ Permethrin and Ivermectin 12/31 R/o DVT: None on US 12/30 MRSA nares neg Recurrent GIBs, FOBT+ Hepatic encephalopathy, chronic S/p Trach/PEG Resides at SNF Plan: Cont PO Vancomycin 125mg PO qid #5/10 for cdiff 01/08 SP Ceftriaxone #7 01/02 SP vanco #2, Zosyn #2 Repeat 2nd dose of ivermectin today (01/08) Monitor CBC/CMP Monitor resp status Monitor temp and hemodynamics contact isolation Thank you for this consult. [facility] will continue to follow. Subjective Allergies: Coded Allergies: CARBAMAZEPINE (Verified Allergy, Unknown, 12/31/19) LORAZEPAM (Verified Allergy, Unknown, 12/31/19) afebrile no leukocytosis had seizure episode Objective Last 24 Hour Vital Signs Date Time Temp Pulse Resp B/P (MAP) Pulse Ox O2 Delivery O2 Flow Rate FiO2 01/12/20 12:00 97.5 60 15 100/78 (85) 98 01/12/20 11:20 58 16 30 01/12/20 09:36 100 01/12/20 09:10 53 14 30 01/12/20 08:46 67 129/97 (108) 01/12/20 08:00 Mechanical Ventilator 15.0 01/12/20 08:00 97.5 60 15 97/51 (66) 100 01/12/20 08:00 30 01/12/20 07:43 57 01/12/20 07:10 63 19 30 01/12/20 05:43 91/54 01/12/20 05:12 56 13 30 01/12/20 04:00 30 01/12/20 04:00 98.9 67 17 93/68 (76) 100 01/12/20 04:00 Mechanical Ventilator 15.0 01/12/20 03:28 74 01/12/20 03:10 63 16 30 01/12/20 01:00 63 15 30 01/12/20 00:00 Mechanical Ventilator 15.0 01/12/20 00:00 98.4 62 16 102/55 (71) 100 01/11/20 23:34 67 01/11/20 22:56 66 15 30 01/11/20 21:21 72 104/64 (77) 01/11/20 21:12 97.9 68 20 82/50 (61) 100 01/11/20 21:08 57 12 30 01/11/20 20:00 30 01/11/20 20:00 97.9 62 20 116/67 (83) 100 01/11/20 20:00 Mechanical Ventilator 15.0 01/11/20 19:53 60 01/11/20 19:02 62 17 30 01/11/20 16:55 69 12 30 01/11/20 16:00 61 01/11/20 16:00 97.0 58 19 123/43 (69) 100 01/11/20 16:00 Mechanical Ventilator 15.0 01/11/20 16:00 30 01/11/20 14:33 61 12 30 Height (Feet): 5 Height (Inches): 1.00 Weight (Pounds): 83 General Appearance: no apparent distress Neck: supple Cardiovascular: normal rate Respiratory/Chest: decreased breath sounds Abdomen: hypoactive bowel sounds Extremities: non-tender Current Medications Medications (Trade) Dose Ordered Sig/Villa Route PRN Reason Start Time Stop Time Status Last Admin Dose Admin Acetaminophen (Tylenol) 650 mg Q6H PRN GT Temp >100.5 01/01/20 11:00 01/31/20 10:59 01/07/20 08:57 Ascorbic Acid (Vitamin C) 500 mg DAILY ORAL 01/01/20 09:00 01/31/20 08:59 01/12/20 08:38 Dopamine HCl/ Dextrose 250 ml @ 4.184 mls/ hr Q24H IV 01/11/20 06:45 04/05/20 18:59 01/12/20 05:43 Famotidine (Pepcid) 20 mg BID ORAL 01/10/20 18:00 04/09/20 17:59 01/12/20 08:38 Gabapentin (Neurontin) 600 mg TID GT 01/08/20 13:00 02/07/20 12:59 01/12/20 09:00 Haloperidol Lactate (Haldol) 5 mg Q6H PRN IM Agitation 01/01/20 23:30 02/15/20 23:29 01/12/20 03:09 Levetiracetam (Keppra) 1,500 mg Q12HR GT 01/07/20 21:00 02/07/20 08:59 01/12/20 08:38 Levothyroxine Sodium (Synthroid) 75 mcg DAILY ORAL 01/01/20 09:00 01/31/20 08:59 01/12/20 08:38 Loperamide HCl (Imodium) 2 mg Q6H PRN NG Diarrhea 01/07/20 09:45 02/06/20 09:44 01/11/20 14:09 Midodrine (Pro-Amatine) 2.5 mg THREE TIMES A DAY ORAL 01/07/20 09:00 04/06/20 08:59 01/12/20 08:38 Multivitamins Therapeutic (Therapeutic Multivitamin) 1 ea DAILY ORAL 01/01/20 09:00 01/31/20 08:59 01/12/20 08:38 Ondansetron HCl (Zofran) 4 mg Q6H PRN ORAL Nausea & Vomiting 12/31/19 21:00 01/30/20 20:59 Oxcarbazepine (TrileptaL) 300 mg BEDTIME ORAL 01/10/20 21:00 02/07/20 20:59 01/11/20 20:27 Potassium Chloride (K-Dur) 20 meq TWICE A DAY GT 01/11/20 09:00 04/10/20 08:59 01/12/20 08:38 Thiamine HCl (Vitamin B1) 100 mg DAILY ORAL 01/01/20 09:00 01/31/20 08:59 01/12/20 08:38 Vancomycin HCl (Firvanq) 125 mg FOUR TIMES A DAY ORAL 01/10/20 13:00 01/17/20 12:59 01/12/20 08:38 Char Morel M.D. Jan 12, 2020 13:30
[2020-01-12] MEDS: OXcarbazepine 150mg tab ORAL SCH (20:50)
--- NOTE | 2020-01-12 23:55 | Psych Consult Progress Note ---
Psychiatry Progress Note Psychiatry Progress Note Subjective the pt is the same the pt attempts to pull out lines. awake confused Medications Current Medications Medications (Trade) Dose Ordered Sig/Villa Route PRN Reason Start Time Stop Time Status Last Admin Dose Admin Acetaminophen (Tylenol) 650 mg Q6H PRN GT Temp >100.5 01/01/20 11:00 01/31/20 10:59 01/07/20 08:57 Ascorbic Acid (Vitamin C) 500 mg DAILY ORAL 01/01/20 09:00 01/31/20 08:59 01/12/20 08:38 Dopamine HCl/ Dextrose 250 ml @ 4.184 mls/ hr Q24H IV 01/11/20 06:45 04/05/20 18:59 01/12/20 05:43 Famotidine (Pepcid) 20 mg BID ORAL 01/10/20 18:00 04/09/20 17:59 01/12/20 17:33 Gabapentin (Neurontin) 600 mg TID GT 01/08/20 13:00 02/07/20 12:59 01/12/20 17:33 Haloperidol Lactate (Haldol) 5 mg Q6H PRN IM Agitation 01/01/20 23:30 02/15/20 23:29 01/12/20 03:09 Levetiracetam (Keppra) 1,500 mg Q12HR GT 01/07/20 21:00 02/07/20 08:59 01/12/20 20:51 Levothyroxine Sodium (Synthroid) 75 mcg DAILY ORAL 01/01/20 09:00 01/31/20 08:59 01/12/20 08:38 Loperamide HCl (Imodium) 2 mg Q6H PRN NG Diarrhea 01/07/20 09:45 02/06/20 09:44 01/11/20 14:09 Midodrine (Pro-Amatine) 2.5 mg THREE TIMES A DAY ORAL 01/07/20 09:00 04/06/20 08:59 01/12/20 17:33 Multivitamins Therapeutic (Therapeutic Multivitamin) 1 ea DAILY ORAL 01/01/20 09:00 01/31/20 08:59 01/12/20 08:38 Ondansetron HCl (Zofran) 4 mg Q6H PRN ORAL Nausea & Vomiting 12/31/19 21:00 01/30/20 20:59 Oxcarbazepine (TrileptaL) 300 mg BEDTIME ORAL 01/10/20 21:00 02/07/20 20:59 01/12/20 20:50 Potassium Chloride (K-Dur) 20 meq TWICE A DAY GT 01/11/20 09:00 04/10/20 08:59 01/12/20 17:39 Thiamine HCl (Vitamin B1) 100 mg DAILY ORAL 01/01/20 09:00 01/31/20 08:59 01/12/20 08:38 Vancomycin HCl (Firvanq) 125 mg FOUR TIMES A DAY ORAL 01/10/20 13:00 01/17/20 23:59 01/12/20 20:50 Neurological/Psychiatric: Reports: other - She appears morelethargic and less expensive than in the previous day Allergies: Coded Allergies: CARBAMAZEPINE (Verified Allergy, Unknown, 12/31/19) LORAZEPAM (Verified Allergy, Unknown, 12/31/19) Objective Data Height (Feet): 5 Height (Inches): 1.00 Weight (Pounds): 83 General Appearance: no apparent distress Additional Comments: waxing and waning consciousness. Affect is flat. Thought process, there is a paucity of thought content. Thought content, no suicidal or homicidal ideation. Cognition is impaired. Insight and judgment is impaired. Assessment/Plan [place] I: dc ativan cont haldol Status: stable Status Narrative dc ativan cont haldol Assessment/Plan: tegan ativan cont haldol Rhonda Maxwell MD Jan 12, 2020 23:55
[2020-01-13] VITALS (7 sets, daily range): BP systolic 79–138; BP diastolic 48–70
[2020-01-13 04:21] LABS: BASOPHILS % (AUTO) 0.4 % (0.0-2.0); EOSINOPHILS % (AUTO) 5.9 % (0.0-3.0); HEMATOCRIT 29.9 % (37.0-47.0); HEMOGLOBIN 9.3 G/DL (12.0-16.0); LYMPHOCYTES % (AUTO) 11.3 % (20.0-45.0); MEAN CORPUSCULAR VOLUME 97 FL (80-99); MONOCYTES % (AUTO) 5.3 % (1.0-10.0); NEUTROPHILS % (AUTO) 77.1 % (45.0-75.0); PLATELET COUNT 288 K/UL (150-450); RED CELL DISTRIBUTION WIDTH 16.1 % (11.6-14.8)
[2020-01-13 04:31] LABS: ALANINE AMINOTRANSFERASE 38 U/L (12-78); ALBUMIN 2.8 G/DL (3.4-5.0); ALBUMIN/GLOBULIN RATIO 0.7 (1.0-2.7); ALKALINE PHOSPHATASE 106 U/L (46-116); ANION GAP 5 mmol/L (5-15); ASPARTATE AMINO TRANSFERASE 30 U/L (15-37); BILIRUBIN,TOTAL 0.3 MG/DL (0.2-1.0); BLOOD UREA NITROGEN 11 mg/dL (7-18); CALCIUM 9.2 MG/DL (8.5-10.1); CARBON DIOXIDE 30 MMOL/L (21-32); CHLORIDE 103 MMOL/L (98-107); CREATININE 0.5 MG/DL (0.55-1.30); PHOSPHORUS 3.5 MG/DL (2.5-4.9); POTASSIUM 4.3 MMOL/L (3.5-5.1); SODIUM 138 MMOL/L (136-145)
[2020-01-13] MEDS: DOPamine 400mg/250ml 250 ML IV SCH ×3 (06:42→19:54)
--- NOTE | 2020-01-13 08:02 | Infectious Diseases Prog Note ---
Assessment/Plan 39yo F with: Sepsis Fever to 101.5>>Low grade ; SP Possible pna on CXR Leukocytosis to 24, now resolved Cdiff colitis -Cdif toxin + Recurrent GIB 01/06 u/aneg 12/30 BCx 1/2 +CONS, likely contaminant 12/30 UA neg, COVID rapid Ag neg 12/30 CXR 1. Density overlying the bilateral lung apices. May represent pleural thickening, multifocal airspace opacities, versus summation artifact. 01/01 BCx Neg 01/02 BCx Neg Seizure episode -01/10 CT head: Third and lateral ventriculomegaly. Associated enlargement of the extra axial CSF spaces indicates that this is probably due to central volume loss, but the possibility of hydrocephalus should also be considered. At the degree of volume loss is considerably out of proportion to patient's age. Periventricular deep white matter low-attenuation. Probably on the basis of microvascular ischemic change but given patient's age the possibility of demyelinating disease should be considered as well. Negative for acute intracranial bleed or mass effect Possible Scabies SP tx w/ Permethrin and Ivermectin 12/31 R/o DVT: None on US 12/30 MRSA nares neg Recurrent GIBs, FOBT+ Hepatic encephalopathy, chronic S/p Trach/PEG Resides at SNF Plan: Cont PO Vancomycin 125mg PO QID #5/10 for cdiff 01/08 SP Ceftriaxone #7 01/02 SP vanco #2, Zosyn #2 SP 2nd dose of ivermectin (01/08) BCx, UA/UCx given leukocytosis today Trend WBC Cont to watch off systemic abx Monitor CBC/CMP Monitor resp status Monitor temp and hemodynamics contact isolation D/w RN Thank you for this consult. [facility] will continue to follow. Subjective Allergies: Coded Allergies: CARBAMAZEPINE (Verified Allergy, Unknown, 12/31/19) LORAZEPAM (Verified Allergy, Unknown, 12/31/19) AF NAD on vent WBC up to 17 Objective Last 24 Hour Vital Signs Date Time Temp Pulse Resp B/P (MAP) Pulse Ox O2 Delivery O2 Flow Rate FiO2 01/13/20 07:58 30 01/13/20 07:57 97.9 84 22 107/55 (72) 100 01/13/20 06:42 98/59 01/13/20 05:00 59 19 30 01/13/20 04:00 30 01/13/20 04:00 100/66 01/13/20 04:00 Mechanical Ventilator 01/13/20 04:00 97.9 70 12 100/66 (77) 100 01/13/20 03:37 60 01/13/20 03:24 62 18 30 01/13/20 00:43 58 18 30 01/13/20 00:00 Mechanical Ventilator 01/13/20 00:00 30 01/13/20 00:00 94/66 01/13/20 00:00 98.1 60 16 94/66 (75) 100 01/12/20 23:58 97 01/12/20 22:40 62 20 30 01/12/20 20:30 57 18 30 01/12/20 20:00 Mechanical Ventilator 01/12/20 20:00 98.1 58 12 92/56 (68) 100 01/12/20 20:00 92/56 01/12/20 20:00 30 01/12/20 19:57 60 01/12/20 19:25 55 19 30 01/12/20 17:10 51 17 30 01/12/20 16:00 Mechanical Ventilator 15.0 01/12/20 16:00 98.1 55 18 96/61 (73) 100 01/12/20 16:00 58 01/12/20 16:00 96/61 01/12/20 16:00 30 01/12/20 15:14 63 20 30 01/12/20 12:45 62 16 30 01/12/20 12:00 97.5 60 15 100/78 (85) 98 01/12/20 12:00 Mechanical Ventilator 15.0 01/12/20 12:00 30 01/12/20 12:00 66 01/12/20 11:20 58 16 30 01/12/20 10:52 35 01/12/20 09:36 100 01/12/20 09:10 53 14 30 01/12/20 08:46 67 129/97 (108) 01/12/20 08:00 Mechanical Ventilator 15.0 01/12/20 08:00 88/43 01/12/20 08:00 97.5 60 15 97/51 (66) 100 01/12/20 08:00 30 Height (Feet): 5 Height (Inches): 1.00 Weight (Pounds): 80 Unchanged Gen: Young woman, chronically ill appearing HEENT: Trach CV: RRR Pulm: CTAB anteriorly on vent Abd: Thin, soft, NTND +PEG Ext: Thin, no c/c/e Laboratory Tests Test 01/13/20 02:55 White Blood Count 17.0 K/UL (4.8-10.8) H Red Blood Count 3.10 M/UL (4.20-5.40) L Hemoglobin 9.3 G/DL (12.0-16.0) L Hematocrit 29.9 % (37.0-47.0) L Mean Corpuscular Volume 97 FL (80-99) Mean Corpuscular Hemoglobin 30.1 PG (27.0-31.0) Mean Corpuscular Hemoglobin Concent 31.1 G/DL (32.0-36.0) L Red Cell Distribution Width 16.1 % (11.6-14.8) H Platelet Count 288 K/UL (150-450) Mean Platelet Volume 6.6 FL (6.5-10.1) Neutrophils (%) (Auto) 77.1 % (45.0-75.0) H Lymphocytes (%) (Auto) 11.3 % (20.0-45.0) L Monocytes (%) (Auto) 5.3 % (1.0-10.0) Eosinophils (%) (Auto) 5.9 % (0.0-3.0) H Basophils (%) (Auto) 0.4 % (0.0-2.0) Sodium Level 138 MMOL/L (136-145) Potassium Level 4.3 MMOL/L (3.5-5.1) Chloride Level 103 MMOL/L (98-107) Carbon Dioxide Level 30 MMOL/L (21-32) Anion Gap 5 mmol/L (5-15) Blood Urea Nitrogen 11 mg/dL (7-18) Creatinine 0.5 MG/DL (0.55-1.30) L Estimat Glomerular Filtration Rate > 60 mL/min (>60) Glucose Level 79 MG/DL (74-106) Calcium Level 9.2 MG/DL (8.5-10.1) Phosphorus Level 3.5 MG/DL (2.5-4.9) Magnesium Level 1.7 MG/DL (1.8-2.4) L Total Bilirubin 0.3 MG/DL (0.2-1.0) Aspartate Amino Transf (AST/SGOT) 30 U/L (15-37) Alanine Aminotransferase (ALT/SGPT) 38 U/L (12-78) Alkaline Phosphatase 106 U/L (46-116) C-Reactive Protein, Quantitative < 0.4 mg/dL (0.00-0.90) Total Protein 6.6 G/DL (6.4-8.2) Albumin 2.8 G/DL (3.4-5.0) L Globulin 3.8 g/dL Albumin/Globulin Ratio 0.7 (1.0-2.7) L Current Medications Medications (Trade) Dose Ordered Sig/Villa Route PRN Reason Start Time Stop Time Status Last Admin Dose Admin Acetaminophen (Tylenol) 650 mg Q6H PRN GT Temp >100.5 01/01/20 11:00 01/31/20 10:59 01/07/20 08:57 Ascorbic Acid (Vitamin C) 500 mg DAILY ORAL 01/01/20 09:00 01/31/20 08:59 01/12/20 08:38 Dopamine HCl/ Dextrose 250 ml @ 4.184 mls/ hr Q24H IV 01/11/20 06:45 04/05/20 18:59 01/12/20 05:43 Famotidine (Pepcid) 20 mg BID ORAL 01/10/20 18:00 04/09/20 17:59 01/12/20 17:33 Gabapentin (Neurontin) 600 mg TID GT 01/08/20 13:00 02/07/20 12:59 01/12/20 17:33 Haloperidol Lactate (Haldol) 5 mg Q6H PRN IM Agitation 01/01/20 23:30 02/15/20 23:29 01/12/20 03:09 Levetiracetam (Keppra) 1,500 mg Q12HR GT 01/07/20 21:00 02/07/20 08:59 01/12/20 20:51 Levothyroxine Sodium (Synthroid) 75 mcg DAILY ORAL 01/01/20 09:00 01/31/20 08:59 01/12/20 08:38 Loperamide HCl (Imodium) 2 mg Q6H PRN NG Diarrhea 01/07/20 09:45 02/06/20 09:44 01/11/20 14:09 Midodrine (Pro-Amatine) 2.5 mg THREE TIMES A DAY ORAL 01/07/20 09:00 04/06/20 08:59 01/12/20 17:33 Multivitamins Therapeutic (Therapeutic Multivitamin) 1 ea DAILY ORAL 01/01/20 09:00 01/31/20 08:59 01/12/20 08:38 Ondansetron HCl (Zofran) 4 mg Q6H PRN ORAL Nausea & Vomiting 12/31/19 21:00 01/30/20 20:59 Oxcarbazepine (TrileptaL) 300 mg BEDTIME ORAL 01/10/20 21:00 02/07/20 20:59 01/12/20 20:50 Potassium Chloride (K-Dur) 20 meq TWICE A DAY GT 01/11/20 09:00 04/10/20 08:59 01/12/20 17:39 Thiamine HCl (Vitamin B1) 100 mg DAILY ORAL 01/01/20 09:00 01/31/20 08:59 01/12/20 08:38 Vancomycin HCl (Firvanq) 125 mg FOUR TIMES A DAY ORAL 01/10/20 13:00 01/17/20 23:59 01/12/20 20:50 Missy Rouse M.D. Jan 13, 2020 08:02
[2020-01-13] MEDS: Multivitamin w/Minerals tab ORAL SCH (08:41)
[2020-01-13] MEDS: levETIRAcetam 500mg/5ml Liquid GT SCH ×2 (08:42→20:26)
[2020-01-13] MEDS: Ascorbic Acid 500mg tab ORAL SCH (08:42)
[2020-01-13] MEDS: Thiamine 100mg tab ORAL SCH (08:42)
[2020-01-13] MEDS: Gabapentin 300 MG/6 ML Soln GT SCH ×3 (08:45→17:01)
[2020-01-13] MEDS: Vancomycin oral 125mg/2.5ml ORAL SCH ×4 (08:45→20:26)
--- NOTE | 2020-01-13 09:14 | Surgery Progress Note ---
Surgery Progress Note Subjective Additional Comments comfortable appearing acute leukocytosis imaging reviewed Objective Last 24 Hour Vital Signs Date Time Temp Pulse Resp B/P (MAP) Pulse Ox O2 Delivery O2 Flow Rate FiO2 01/13/20 09:08 100 01/13/20 07:58 30 01/13/20 07:57 97.9 84 22 107/55 (72) 100 01/13/20 07:17 68 17 30 01/13/20 06:42 98/59 01/13/20 05:00 59 19 30 01/13/20 04:00 30 01/13/20 04:00 100/66 01/13/20 04:00 Mechanical Ventilator 01/13/20 04:00 97.9 70 12 100/66 (77) 100 01/13/20 03:37 60 01/13/20 03:24 62 18 30 01/13/20 00:43 58 18 30 01/13/20 00:00 Mechanical Ventilator 01/13/20 00:00 30 01/13/20 00:00 94/66 01/13/20 00:00 98.1 60 16 94/66 (75) 100 01/12/20 23:58 97 01/12/20 22:40 62 20 30 01/12/20 20:30 57 18 30 01/12/20 20:00 Mechanical Ventilator 01/12/20 20:00 98.1 58 12 92/56 (68) 100 01/12/20 20:00 92/56 01/12/20 20:00 30 01/12/20 19:57 60 01/12/20 19:25 55 19 30 01/12/20 17:10 51 17 30 01/12/20 16:00 Mechanical Ventilator 15.0 01/12/20 16:00 98.1 55 18 96/61 (73) 100 01/12/20 16:00 58 01/12/20 16:00 96/61 01/12/20 16:00 30 01/12/20 15:14 63 20 30 01/12/20 12:45 62 16 30 01/12/20 12:00 97.5 60 15 100/78 (85) 98 01/12/20 12:00 Mechanical Ventilator 15.0 01/12/20 12:00 30 01/12/20 12:00 66 01/12/20 11:20 58 16 30 01/12/20 10:52 35 01/12/20 09:36 100 I&O Intake and Output 01/12/20 01/13/20 19:00 07:00 Intake Total 704.392 ml 746.024 ml Output Total 2550 ml 1500 ml Balance -1845.608 ml -753.976 ml Intake Free Water 100 ml IV Total 54.392 ml 46.024 ml Tube Feeding 550 ml 550 ml Other 150 ml Output Urine Total 2150 ml 1400 ml Stool Total 400 ml 100 ml # Bowel Movements 5 Dressing: other Wound: other Cardiovascular: RSR Respiratory: decreased breath sounds Abdomen: soft, non-tender, present bowel sounds Extremities: no tenderness, no cyanosis Laboratory Tests Test 01/13/20 02:55 White Blood Count 17.0 K/UL (4.8-10.8) H Red Blood Count 3.10 M/UL (4.20-5.40) L Hemoglobin 9.3 G/DL (12.0-16.0) L Hematocrit 29.9 % (37.0-47.0) L Mean Corpuscular Volume 97 FL (80-99) Mean Corpuscular Hemoglobin 30.1 PG (27.0-31.0) Mean Corpuscular Hemoglobin Concent 31.1 G/DL (32.0-36.0) L Red Cell Distribution Width 16.1 % (11.6-14.8) H Platelet Count 288 K/UL (150-450) Mean Platelet Volume 6.6 FL (6.5-10.1) Neutrophils (%) (Auto) 77.1 % (45.0-75.0) H Lymphocytes (%) (Auto) 11.3 % (20.0-45.0) L Monocytes (%) (Auto) 5.3 % (1.0-10.0) Eosinophils (%) (Auto) 5.9 % (0.0-3.0) H Basophils (%) (Auto) 0.4 % (0.0-2.0) Sodium Level 138 MMOL/L (136-145) Potassium Level 4.3 MMOL/L (3.5-5.1) Chloride Level 103 MMOL/L (98-107) Carbon Dioxide Level 30 MMOL/L (21-32) Anion Gap 5 mmol/L (5-15) Blood Urea Nitrogen 11 mg/dL (7-18) Creatinine 0.5 MG/DL (0.55-1.30) L Estimat Glomerular Filtration Rate > 60 mL/min (>60) Glucose Level 79 MG/DL (74-106) Calcium Level 9.2 MG/DL (8.5-10.1) Phosphorus Level 3.5 MG/DL (2.5-4.9) Magnesium Level 1.7 MG/DL (1.8-2.4) L Total Bilirubin 0.3 MG/DL (0.2-1.0) Aspartate Amino Transf (AST/SGOT) 30 U/L (15-37) Alanine Aminotransferase (ALT/SGPT) 38 U/L (12-78) Alkaline Phosphatase 106 U/L (46-116) C-Reactive Protein, Quantitative < 0.4 mg/dL (0.00-0.90) Total Protein 6.6 G/DL (6.4-8.2) Albumin 2.8 G/DL (3.4-5.0) L Globulin 3.8 g/dL Albumin/Globulin Ratio 0.7 (1.0-2.7) L Plan Problems: (1) Pneumonia (2) Sepsis Assessment & Plan: leukocytosis anemia lactic acidosis agree with GI recommend EGD planned for 12/31 hold feeding for now trend h/h monitor for bleeding no acute hemorrhage will be available in event needs exploration for hemostasis prbc as per heme thank you will follow with recs cont abx Pt presented on admission in emaciated state. Pt has tracheostomy and GT. NO skin concerns noted to skin under collar of trach. NO erythema or evidence of skin erosion at GT site. Pt noted to have scaly pimple-like rash with webbing noted to R and L axillae, undersides of both breasts, Bilat groin and lower back. Tracking and webbing noted to hands and feet. Pt restless and scratching at skin. Non-Blanching erythema without induration or fluctuance noted to R and L hips and trochanteric areas.Non-blanching erythema noted along spine. Non-Blanching erythema without induration noted to Sacrum. Non-Blanching erythema noted to R and L Malleoli and both heels. Tx.Plan: Please apply Cavilon Skin Barrier to each bony Prominences at risks for Skin Breakdown. Cover each area with Optifoam drsgs. Change every 7 days and prn. Apply Moisture Barrier Paste to Sacrum. Cover with Optifoam drsg. Change every 3 days and prn. Reposition at least every 2hours or as tolerated. Off-load heels with pillow. APM/EMELI Mattress overlay. improving cont current care plan There is marked enlargement of the third and lateral ventricles and extra axial CSF spaces, in particular the former. There is considerable periventricular deep white matter low-attenuation. Otherwise normal mobley-white differentiation. No acute hemorrhage or edema. No mass effect nor midline shift. Visualized orbits and sinuses are unremarkable. The calvarium is intact Impression: Third and lateral ventriculomegaly. Associated enlargement of the extra axial CSF spaces indicates that this is probably due to central volume loss, but the possibility of hydrocephalus should also be considered. At the degree of volume loss is considerably out of proportion to patient's age. Correlate with clinical history Periventricular deep white matter low-attenuation. Probably on the basis of microvascular ischemic change but given patient's age the possibility of demyelinating disease should be considered as well. Negative for acute intracranial bleed or mass effect (3) GI bleed (4) G tube feedings Assessment & Plan: DAILY ESTIMATED NEEDS: Needs based on Underweight, critical care 37.3kg 30-40 kcals/kg 8211-1970 total kcals 1.25-2 g protein/kg 47-75 g total protein 25-35 mL/kg 933-1306 total fluid mLs NUTRITION DIAGNOSIS: Increased kcal and pro needs r/t underweight status as evidenced by BMI 14.1, pt is 68% of ideal body weight w/ generalized severe wasting, trach and peg dep. CURRENT TF:Vital AF 1.2 @55 x20 hrs ENTERAL NUTRITION RECOMMENDATIONS: Vital AF 1.2 @ 55ml/hr x20 hrs to provide 1100ml 1320kcal 83g prot, 892ml free water - Rec to continue elemental TF formula while stool C-diff positive, +LBM - HOLD 1HR BEFORE AND AFTER SYNTHROID MEDS - Flush per . HOB over 30 degrees ADDITIONAL RECOMMENDATIONS: 1) Per SNF: 5'4" and 81# Maintain calibrated bed scale wts w/ added P200 mattress 2) Lytes daily madhav w/ loose stools, replete as needed 3) Skin integrity: Continue BRIAN VIA GT BID + Vit C 4) Accuchecks for Hypoglycemia 5) Add probiotics for stool C-diff+ . [place] Jan 13, 2020 09:14
--- NOTE | 2020-01-13 09:47 | Pulmonology Progress Note ---
Ivanna Mora CANDY DECORATOR 01/13/20 0947: Subjective ROS Limited/Unobtainable: Yes Allergies: Coded Allergies: CARBAMAZEPINE (Verified Allergy, Unknown, 12/31/19) LORAZEPAM (Verified Allergy, Unknown, 12/31/19) Subjective leukocytosis this am up to 17, no fevers no signs of resp distress on current settings CXR 01/06 stable ABG stable on SIMV mode stool C dif + 01/07 on po Vanco prior episodes of witnessed seizure x2 EEG abnormal no further seizure activity HR better Objective Last 24 Hour Vital Signs Date Time Temp Pulse Resp B/P (MAP) Pulse Ox O2 Delivery O2 Flow Rate FiO2 01/13/20 09:10 68 17 30 01/13/20 09:08 100 01/13/20 09:00 Mechanical Ventilator 01/13/20 07:58 30 01/13/20 07:57 97.9 84 22 107/55 (72) 100 01/13/20 07:17 68 17 30 01/13/20 06:42 98/59 01/13/20 05:00 59 19 30 01/13/20 04:00 30 01/13/20 04:00 100/66 01/13/20 04:00 Mechanical Ventilator 01/13/20 04:00 97.9 70 12 100/66 (77) 100 01/13/20 03:37 60 01/13/20 03:24 62 18 30 01/13/20 00:43 58 18 30 01/13/20 00:00 Mechanical Ventilator 01/13/20 00:00 30 01/13/20 00:00 94/66 01/13/20 00:00 98.1 60 16 94/66 (75) 100 01/12/20 23:58 97 01/12/20 22:40 62 20 30 01/12/20 20:30 57 18 30 01/12/20 20:00 Mechanical Ventilator 01/12/20 20:00 98.1 58 12 92/56 (68) 100 01/12/20 20:00 92/56 01/12/20 20:00 30 01/12/20 19:57 60 01/12/20 19:25 55 19 30 01/12/20 17:10 51 17 30 01/12/20 16:00 Mechanical Ventilator 15.0 01/12/20 16:00 98.1 55 18 96/61 (73) 100 01/12/20 16:00 58 01/12/20 16:00 96/61 01/12/20 16:00 30 01/12/20 15:14 63 20 30 01/12/20 12:45 62 16 30 01/12/20 12:00 97.5 60 15 100/78 (85) 98 01/12/20 12:00 Mechanical Ventilator 15.0 01/12/20 12:00 30 01/12/20 12:00 66 01/12/20 11:20 58 16 30 01/12/20 10:52 35 Intake and Output 01/12/20 01/13/20 19:00 07:00 Intake Total 704.392 ml 746.024 ml Output Total 2550 ml 1500 ml Balance -1845.608 ml -753.976 ml Intake Free Water 100 ml IV Total 54.392 ml 46.024 ml Tube Feeding 550 ml 550 ml Other 150 ml Output Urine Total 2150 ml 1400 ml Stool Total 400 ml 100 ml # Bowel Movements 5 Objective General Appearance: bedridden, pale, chronically ill looking, older than her biological age ; vent dependent female ; on vent SIMV 450-30%-12, PEEP 5 Lines, tubes and drains: peripheral, trach HEENT: normocephalic, atraumatic Neck: trach - Portex #7, secretions small amount, yellow color, thin consistency Respiratory/Chest: CTAB Cardiovascular/Chest: regular rate, regular rhythm Abdomen: non tender, soft, G tube Genitourinary/Rectal: [place] Extremities: no edema, muscle atrophy Neurologic: abnormal gait, poorly responsive, more awake , eyes open Musculoskeletal: atrophy BLE Skin: multiple tattoos Laboratory Tests 01/13/20 02:55: White Blood Count 17.0H, Red Blood Count 3.10L, Hemoglobin 9.3L, Hematocrit 29.9L, Mean Corpuscular Volume 97, Mean Corpuscular Hemoglobin 30.1, Mean Corpuscular Hemoglobin Concent 31.1L, Red Cell Distribution Width 16.1H, Platelet Count 288, Mean Platelet Volume 6.6, Neutrophils (%) (Auto) 77.1H, Lymphocytes (%) (Auto) 11.3L, Monocytes (%) (Auto) 5.3, Eosinophils (%) (Auto) 5.9H, Basophils (%) (Auto) 0.4, Sodium Level 138, Potassium Level 4.3, Chloride Level 103, Carbon Dioxide Level 30, Anion Gap 5, Blood Urea Nitrogen 11, Creatinine 0.5L, Estimat Glomerular Filtration Rate > 60, Glucose Level 79, Calcium Level 9.2, Phosphorus Level 3.5, Magnesium Level 1.7L, Total Bilirubin 0.3, Aspartate Amino Transf (AST/SGOT) 30, Alanine Aminotransferase (ALT/SGPT) 38, Alkaline Phosphatase 106, C-Reactive Protein, Quantitative < 0.4, Total Protein 6.6, Albumin 2.8L, Globulin 3.8, Albumin/Globulin Ratio 0.7L Current Medications Medications (Trade) Dose Ordered Sig/Villa Route PRN Reason Start Time Stop Time Status Last Admin Dose Admin Acetaminophen (Tylenol) 650 mg Q6H PRN GT Temp >100.5 01/01/20 11:00 01/31/20 10:59 01/07/20 08:57 Ascorbic Acid (Vitamin C) 500 mg DAILY ORAL 01/01/20 09:00 01/31/20 08:59 01/13/20 08:42 Dopamine HCl/ Dextrose 250 ml @ 4.184 mls/ hr Q24H IV 01/11/20 06:45 04/05/20 18:59 01/12/20 05:43 Famotidine (Pepcid) 20 mg BID ORAL 01/10/20 18:00 04/09/20 17:59 01/13/20 08:42 Gabapentin (Neurontin) 600 mg TID GT 01/08/20 13:00 02/07/20 12:59 01/13/20 08:45 Haloperidol Lactate (Haldol) 5 mg Q6H PRN IM Agitation 01/01/20 23:30 02/15/20 23:29 01/12/20 03:09 Levetiracetam (Keppra) 1,500 mg Q12HR GT 01/07/20 21:00 02/07/20 08:59 01/13/20 08:42 Levothyroxine Sodium (Synthroid) 75 mcg DAILY ORAL 01/01/20 09:00 01/31/20 08:59 01/13/20 08:42 Loperamide HCl (Imodium) 2 mg Q6H PRN NG Diarrhea 01/07/20 09:45 02/06/20 09:44 01/11/20 14:09 Midodrine (Pro-Amatine) 2.5 mg THREE TIMES A DAY ORAL 01/07/20 09:00 04/06/20 08:59 01/13/20 08:42 Multivitamins Therapeutic (Therapeutic Multivitamin) 1 ea DAILY ORAL 01/01/20 09:00 01/31/20 08:59 01/13/20 08:41 Ondansetron HCl (Zofran) 4 mg Q6H PRN ORAL Nausea & Vomiting 12/31/19 21:00 01/30/20 20:59 Oxcarbazepine (TrileptaL) 300 mg BEDTIME ORAL 01/10/20 21:00 02/07/20 20:59 01/12/20 20:50 Potassium Chloride (K-Dur) 20 meq TWICE A DAY GT 01/11/20 09:00 04/10/20 08:59 01/13/20 08:42 Thiamine HCl (Vitamin B1) 100 mg DAILY ORAL 01/01/20 09:00 01/31/20 08:59 01/13/20 08:42 Vancomycin HCl (Firvanq) 125 mg FOUR TIMES A DAY ORAL 01/10/20 13:00 01/17/20 23:59 01/13/20 08:45 Assessment/Plan Assessment/Plan ASSESSMENT VDRF/trach status Sepsis Possible pneumonia recurrent GI bleeding C dif colitis Anemia secondary to GI bleeding Aspiration risk Dysphagia, feeding by G-tube Encephalopathy Acute kidney injury likely secondary to dehydration Bradycardia Electrolyte imbalance Severe protein calorie malnutrition Hypertension History of CVA Seizure disorder with witnessed seizure episode 01/07 Psychiatric disorder Presumed scabies, s/p Rx Thrombocytopenia-transient- resolved PLAN OF CARE JULIANA vent support, pulm toilet ABG stable on current settings, on SIMV mode 450-30-12 PEEP5 , no signs of resp distress on these settings keep settings as is and titrate as needed CXR 01/06 stable pulm toilet via HHN Theophylline level was high -25; ->was dc leuk today 01/12, no fevers -possibly due to C dif pancx-per ID fup with CXR, check inflammatory markers : ESR, CRP prior BCX 1/2 +CONS likely contaminant, off Vanco ; repeated BCX 01/01 and 01/02 NGTD SCX + Proteus , was on Ceftriaxone as per ID recs for poss SBP in setting of GI bleeding - completed BCX 01/01 and 01/02 NGTD stool C dif 01/07 +, on oral vanco rapid COVID 19 NGT in ED aspiration precautions Venous Duplex BLE -negative, get SCD ( unable to give a/c given anemia) closely monitor hemodynamic status Protonix IV GT feeding stool OB positive transfuse to keep Hgb > 7. heme and GI follows s/p EGD 01/01 -> gastric ulcer across G tube site , no active bleeding HH at baseline monitor for any further episodes of Gi bleeding trend LFT-> trended down, hep panel NGT hx of cirrhosis- per GI management hypotension-> Midodrine, IV fluids -now dc and Dopamine gtt bradycardia -> Midodrine dose decreased and prior Theophylline was started by primary but dc due to increased level cardio follows HR better monitor renal parameters, lytes, avoid nephrotoxic BUN trending down, creat stable, likely prerenal due to dehydration replace e/lytes as per nephro recs monitor volumes seizure precautions, antiepileptic optimized as per neuro recs ammonia 49, fup with further neuro recs EEG - grossly abnormal; mild to mod encephalopathy, single ictal episode CT head no acute IC pathology BP management with current regimen SNF meds supportive care dietary recs s/p 12/31 Rx for presumed scabies with permethrin and Ivermectin, repeated Ivermectin 01/08 case discussed and evaluated by supervising physician Jeyson Anderson MD 01/13/20 2143: Subjective Allergies: Coded Allergies: CARBAMAZEPINE (Verified Allergy, Unknown, 12/31/19) LORAZEPAM (Verified Allergy, Unknown, 12/31/19) Assessment/Plan Assessment/Plan Patient seen and examined with CANDY DECORATOR. Agree with above A&P as it reflects our joint deliberations. Ivanna Mora NP Jan 13, 2020 09:47 Jeyson Anderson MD Jan 13, 2020 21:43
--- NOTE | 2020-01-13 10:55 | Nephrology Progress Note ---
Assessment/Plan Problem List: (1) RICHARD (acute kidney injury) (2) Dehydration (3) Anemia (4) GI bleed (5) Malnutrition (6) Seizure disorder (7) Electrolyte imbalance Assessment Renal failure, in the form of prerenal azotemia, most likely secondary to GI bleed GI bleed, leading to severe anemia Sepsis, pneumonia Chronic tracheostomy, ventilator dependent History of CVA History of seizure disorder History of psychiatric disorder Severe malnutrition Electrolyte abnormalities Plan January 12: Labs reviewed stable from renal standpoint of view January 11: No labs drawn today stable from renal standpoint of view January 10: Labs reviewed. Potassium supplement given. Continue per consultants. January 09: Lab reviewed. Potassium supplement given. IV fluid discontinued. January 08: Lab reviewed. Renal parameters stable. Continue per consultants. January 07: Lab reviewed. Renal parameters stable. Continue per consultants. January 06: Lab reviewed. Stable from renal standpoint of view. January 05: Labs reviewed. Stable from renal standpoint of view. Continue per consultants. January 04: No labs drawn today. Will check labs tomorrow. Continue per consultants. January 03: Lab reviewed. Renal parameters stable. IV fluid discontinued. High LFTs declining. Continue same. January 02: Lab reviewed. Renal parameters stable. Continue per PMD and consultants. LFTs remain elevated. Continue to monitor. Continue slow hydration Discontinue blood pressure medications as her blood pressure is low Discontinue diuretics Monitor renal parameters Transfusion as needed GI evaluation Correct electrolyte abnormalities Check B12 level, folate, and thyroid function tests: Results noted Subjective ROS Limited/Unobtainable: Yes Objective Objective Last 24 Hour Vital Signs Date Time Temp Pulse Resp B/P (MAP) Pulse Ox O2 Delivery O2 Flow Rate FiO2 01/13/20 09:10 68 17 30 01/13/20 09:08 100 01/13/20 09:00 Mechanical Ventilator 01/13/20 08:00 76 01/13/20 07:58 30 01/13/20 07:57 97.9 84 22 107/55 (72) 100 01/13/20 07:17 68 17 30 01/13/20 06:42 98/59 01/13/20 05:00 59 19 30 01/13/20 04:00 30 01/13/20 04:00 100/66 01/13/20 04:00 Mechanical Ventilator 01/13/20 04:00 97.9 70 12 100/66 (77) 100 01/13/20 03:37 60 01/13/20 03:24 62 18 30 01/13/20 00:43 58 18 30 01/13/20 00:00 Mechanical Ventilator 01/13/20 00:00 30 01/13/20 00:00 94/66 01/13/20 00:00 98.1 60 16 94/66 (75) 100 01/12/20 23:58 97 01/12/20 22:40 62 20 30 01/12/20 20:30 57 18 30 01/12/20 20:00 Mechanical Ventilator 01/12/20 20:00 98.1 58 12 92/56 (68) 100 01/12/20 20:00 92/56 01/12/20 20:00 30 01/12/20 19:57 60 01/12/20 19:25 55 19 30 01/12/20 17:10 51 17 30 01/12/20 16:00 Mechanical Ventilator 15.0 01/12/20 16:00 98.1 55 18 96/61 (73) 100 01/12/20 16:00 58 01/12/20 16:00 96/61 01/12/20 16:00 30 01/12/20 15:14 63 20 30 01/12/20 12:45 62 16 30 01/12/20 12:00 97.5 60 15 100/78 (85) 98 01/12/20 12:00 Mechanical Ventilator 15.0 01/12/20 12:00 30 01/12/20 12:00 66 01/12/20 11:20 58 16 30 Intake and Output 01/12/20 01/13/20 19:00 07:00 Intake Total 704.392 ml 746.024 ml Output Total 2550 ml 1500 ml Balance -1845.608 ml -753.976 ml Intake Free Water 100 ml IV Total 54.392 ml 46.024 ml Tube Feeding 550 ml 550 ml Other 150 ml Output Urine Total 2150 ml 1400 ml Stool Total 400 ml 100 ml # Bowel Movements 5 Laboratory Tests 01/13/20 02:55: White Blood Count 17.0H, Red Blood Count 3.10L, Hemoglobin 9.3L, Hematocrit 29.9L, Mean Corpuscular Volume 97, Mean Corpuscular Hemoglobin 30.1, Mean Corpuscular Hemoglobin Concent 31.1L, Red Cell Distribution Width 16.1H, Platelet Count 288, Mean Platelet Volume 6.6, Neutrophils (%) (Auto) 77.1H, Lymphocytes (%) (Auto) 11.3L, Monocytes (%) (Auto) 5.3, Eosinophils (%) (Auto) 5.9H, Basophils (%) (Auto) 0.4, Sodium Level 138, Potassium Level 4.3, Chloride Level 103, Carbon Dioxide Level 30, Anion Gap 5, Blood Urea Nitrogen 11, Creatinine 0.5L, Estimat Glomerular Filtration Rate > 60, Glucose Level 79, Calcium Level 9.2, Phosphorus Level 3.5, Magnesium Level 1.7L, Total Bilirubin 0.3, Aspartate Amino Transf (AST/SGOT) 30, Alanine Aminotransferase (ALT/SGPT) 38, Alkaline Phosphatase 106, C-Reactive Protein, Quantitative < 0.4, Total Protein 6.6, Albumin 2.8L, Globulin 3.8, Albumin/Globulin Ratio 0.7L Height (Feet): 5 Height (Inches): 1.00 Weight (Pounds): 80 General Appearance: no apparent distress EENT: other - Trach and vent Cardiovascular: normal rate Respiratory/Chest: decreased breath sounds Abdomen: soft Chivo Holloway MD Jan 13, 2020 10:55
[2020-01-13 13:50] LABS: APPEARANCE,URINE CLOUDY; BILIRUBIN, URINE NEGATIVE (NEGATIVE); COLOR,URINE YELLOW; GLUCOSE, URINE (UA) NEGATIVE (NEGATIVE); KETONES,URINE NEGATIVE (NEGATIVE); LEUKOCYTE ESTERASE ,URINE 3+ (NEGATIVE); NITRITE,URINE NEGATIVE (NEGATIVE); PH,URINE 7 (4.5-8.0); PROTEIN,URINE 2+ (NEGATIVE); UROBILINOGEN,URINE NORMAL MG/DL (0.0-1.0)
--- NOTE | 2020-01-13 15:53 | General Progress Note ---
Assessment/Plan Status: stable, other - Patient is now hypotensive before over 46 she will receive 500 cc of normal saline bolus to be repeated blood pressure remained below 90 further management will be decided following the boluses treatment repeat laboratory tests will be done in kori BISHOP MD Assessment/Plan: Patient will receive 500 cc normal saline bolus now will be repeated if blood pressure remains below 90 patient will be followed closely during the day in regard to blood pressure seizures and mental status repeat laboratory tests will be done in kori [place] Subjective Constitutional: Reports: other - Patient is awake alert with eye contact with no verbal response and short attention span HEENT: Reports: no symptoms Cardiovascular: Reports: other - Due to the long episode of bradycardia patient has a does not produce enough cardiac output Respiratory: Reports: other - Lungs are clear without rhonchi rales or wheezing there is no respiratory distress Neurologic/Psychiatric: Reports: other - For my contact but does not appear to be stress facial expression is frequently psychotic Hematologic/Lymphatic: Reports: no symptoms Allergies: Coded Allergies: CARBAMAZEPINE (Verified Allergy, Unknown, 12/31/19) LORAZEPAM (Verified Allergy, Unknown, 12/31/19) Objective Last 24 Hour Vital Signs Date Time Temp Pulse Resp B/P (MAP) Pulse Ox O2 Delivery O2 Flow Rate FiO2 01/13/20 14:05 102/48 01/13/20 12:49 59 01/13/20 12:41 64 24 30 01/13/20 12:00 Mechanical Ventilator 01/13/20 12:00 102/48 01/13/20 12:00 98.1 63 13 138/68 (91) 100 01/13/20 12:00 30 01/13/20 11:23 61 18 30 01/13/20 09:10 68 17 30 01/13/20 09:08 100 01/13/20 09:00 Mechanical Ventilator 01/13/20 08:00 76 01/13/20 07:58 30 01/13/20 07:57 97.9 84 22 107/55 (72) 100 01/13/20 07:17 68 17 30 01/13/20 07:00 107/55 01/13/20 06:42 98/59 01/13/20 05:00 59 19 30 01/13/20 04:00 30 01/13/20 04:00 100/66 01/13/20 04:00 Mechanical Ventilator 01/13/20 04:00 97.9 70 12 100/66 (77) 100 01/13/20 03:37 60 01/13/20 03:24 62 18 30 01/13/20 00:43 58 18 30 01/13/20 00:00 Mechanical Ventilator 01/13/20 00:00 30 01/13/20 00:00 94/66 01/13/20 00:00 98.1 60 16 94/66 (75) 100 01/12/20 23:58 97 01/12/20 22:40 62 20 30 01/12/20 20:30 57 18 30 01/12/20 20:00 Mechanical Ventilator 01/12/20 20:00 98.1 58 12 92/56 (68) 100 01/12/20 20:00 92/56 01/12/20 20:00 30 01/12/20 19:57 60 01/12/20 19:25 55 19 30 01/12/20 17:10 51 17 30 01/12/20 16:00 Mechanical Ventilator 15.0 01/12/20 16:00 98.1 55 18 96/61 (73) 100 01/12/20 16:00 58 01/12/20 16:00 96/61 01/12/20 16:00 30 Intake and Output 01/12/20 01/13/20 19:00 07:00 Intake Total 704.392 ml 750.208 ml Output Total 2550 ml 1500 ml Balance -1845.608 ml -749.792 ml Intake Free Water 100 ml IV Total 54.392 ml 50.208 ml Tube Feeding 550 ml 550 ml Other 150 ml Output Urine Total 2150 ml 1400 ml Stool Total 400 ml 100 ml # Bowel Movements 5 Laboratory Tests 01/13/20 02:55: White Blood Count 17.0H, Red Blood Count 3.10L, Hemoglobin 9.3L, Hematocrit 29.9L, Mean Corpuscular Volume 97, Mean Corpuscular Hemoglobin 30.1, Mean Corpuscular Hemoglobin Concent 31.1L, Red Cell Distribution Width 16.1H, Platelet Count 288, Mean Platelet Volume 6.6, Neutrophils (%) (Auto) 77.1H, Lymphocytes (%) (Auto) 11.3L, Monocytes (%) (Auto) 5.3, Eosinophils (%) (Auto) 5.9H, Basophils (%) (Auto) 0.4, Sodium Level 138, Potassium Level 4.3, Chloride Level 103, Carbon Dioxide Level 30, Anion Gap 5, Blood Urea Nitrogen 11, Creatinine 0.5L, Estimat Glomerular Filtration Rate > 60, Glucose Level 79, Calcium Level 9.2, Phosphorus Level 3.5, Magnesium Level 1.7L, Total Bilirubin 0.3, Aspartate Amino Transf (AST/SGOT) 30, Alanine Aminotransferase (ALT/SGPT) 38, Alkaline Phosphatase 106, C-Reactive Protein, Quantitative < 0.4, Total Protein 6.6, Albumin 2.8L, Globulin 3.8, Albumin/Globulin Ratio 0.7L 01/13/20 13:10: Urine Color Yellow, Urine Appearance Cloudy, Urine pH 7, Urine Specific [place] 1.010, Urine Protein 2+H, Urine Glucose (UA) Negative, Urine Ketones Negative, Urine Blood 4+H, Urine Nitrite Negative, Urine Bilirubin Negative, Urine Urobilinogen Normal, Urine Leukocyte Esterase 3+H, Urine RBC 15-20H, Urine WBC TntcH, Urine Squamous Epithelial Cells ModerateH, Urine Bacteria Few, Urine Yeast ManyH Height (Feet): 5 Height (Inches): 1.00 Weight (Pounds): 80 General Appearance: no apparent distress, alert, lethargic EENT: normal ENT inspection Neck: supple Cardiovascular: no JVD, other Respiratory/Chest: lungs clear Abdomen: normal bowel sounds, non tender, soft, no mass Extremities: other Neurologic: alert, aphasia Skin: warm/dry Glenny Bishop MD Jan 13, 2020 15:53
[2020-01-13] MEDS ORDERED: DOPamine 400mg/250ml 250 ML IV SCH (19:00)
[2020-01-13] MEDS: OXcarbazepine 150mg tab ORAL SCH (20:25)
--- NOTE | 2020-01-13 22:01 | Cardiology Progress Note ---
Assessment/Plan Assessment/Plan 1. Hypotension, could be due to Keppra, increase dopamine to 5mcg, continue midodrine. 2. Sinus bradycardia, increase dopamine gtt. 3. Anemia of chronic disease 4. Acute renal failure, resolved. 5. GI bleeding due to gastric ulceration. 6. Dysphagia, s/p PEG placement. 7. VDRF, s/p tracheostomy tube placement. Subjective Subjective Sinus On the vent with FiO2 of 30%. On dopamine gtt at 3mcg. Objective Last 24 Hour Vital Signs Date Time Temp Pulse Resp B/P (MAP) Pulse Ox O2 Delivery O2 Flow Rate FiO2 01/13/20 21:00 66 17 30 01/13/20 20:37 97.9 65 20 101/55 (70) 99 01/13/20 20:00 30 01/13/20 20:00 97.9 65 20 79/49 (59) 99 01/13/20 20:00 Mechanical Ventilator 01/13/20 19:54 79/50 01/13/20 19:24 59 01/13/20 18:55 59 17 30 01/13/20 16:48 58 16 30 01/13/20 16:00 98.0 70 24 86/70 (75) 98 01/13/20 16:00 Mechanical Ventilator 01/13/20 16:00 30 01/13/20 16:00 66 01/13/20 15:24 59 16 30 01/13/20 15:05 86/70 01/13/20 14:05 102/48 01/13/20 12:49 59 01/13/20 12:41 64 24 30 01/13/20 12:00 Mechanical Ventilator 01/13/20 12:00 102/48 01/13/20 12:00 98.1 63 13 102/48 (66) 100 01/13/20 12:00 30 01/13/20 11:23 61 18 30 01/13/20 09:10 68 17 30 01/13/20 09:08 100 01/13/20 09:00 Mechanical Ventilator 01/13/20 08:00 76 01/13/20 07:58 30 01/13/20 07:57 97.9 84 22 107/55 (72) 100 01/13/20 07:17 68 17 30 01/13/20 07:00 107/55 01/13/20 06:42 98/59 01/13/20 05:00 59 19 30 01/13/20 04:00 30 01/13/20 04:00 100/66 01/13/20 04:00 Mechanical Ventilator 01/13/20 04:00 97.9 70 12 100/66 (77) 100 01/13/20 03:37 60 01/13/20 03:24 62 18 30 01/13/20 00:43 58 18 30 01/13/20 00:00 Mechanical Ventilator 01/13/20 00:00 30 01/13/20 00:00 94/66 01/13/20 00:00 98.1 60 16 94/66 (75) 100 01/12/20 23:58 97 01/12/20 22:40 62 20 30 Intake and Output 01/12/20 01/13/20 19:00 07:00 Intake Total 704.392 ml 750.208 ml Output Total 2550 ml 1500 ml Balance -1845.608 ml -749.792 ml Intake Free Water 100 ml IV Total 54.392 ml 50.208 ml Tube Feeding 550 ml 550 ml Other 150 ml Output Urine Total 2150 ml 1400 ml Stool Total 400 ml 100 ml # Bowel Movements 5 2D Echo: LVEF 65%, RVSP 23 mmHg, Grade I LVDD Laboratory Tests Test 01/13/20 02:55 01/13/20 13:10 White Blood Count 17.0 K/UL (4.8-10.8) H Red Blood Count 3.10 M/UL (4.20-5.40) L Hemoglobin 9.3 G/DL (12.0-16.0) L Hematocrit 29.9 % (37.0-47.0) L Mean Corpuscular Volume 97 FL (80-99) Mean Corpuscular Hemoglobin 30.1 PG (27.0-31.0) Mean Corpuscular Hemoglobin Concent 31.1 G/DL (32.0-36.0) L Red Cell Distribution Width 16.1 % (11.6-14.8) H Platelet Count 288 K/UL (150-450) Mean Platelet Volume 6.6 FL (6.5-10.1) Neutrophils (%) (Auto) 77.1 % (45.0-75.0) H Lymphocytes (%) (Auto) 11.3 % (20.0-45.0) L Monocytes (%) (Auto) 5.3 % (1.0-10.0) Eosinophils (%) (Auto) 5.9 % (0.0-3.0) H Basophils (%) (Auto) 0.4 % (0.0-2.0) Sodium Level 138 MMOL/L (136-145) Potassium Level 4.3 MMOL/L (3.5-5.1) Chloride Level 103 MMOL/L (98-107) Carbon Dioxide Level 30 MMOL/L (21-32) Anion Gap 5 mmol/L (5-15) Blood Urea Nitrogen 11 mg/dL (7-18) Creatinine 0.5 MG/DL (0.55-1.30) L Estimat Glomerular Filtration Rate > 60 mL/min (>60) Glucose Level 79 MG/DL (74-106) Calcium Level 9.2 MG/DL (8.5-10.1) Phosphorus Level 3.5 MG/DL (2.5-4.9) Magnesium Level 1.7 MG/DL (1.8-2.4) L Total Bilirubin 0.3 MG/DL (0.2-1.0) Aspartate Amino Transf (AST/SGOT) 30 U/L (15-37) Alanine Aminotransferase (ALT/SGPT) 38 U/L (12-78) Alkaline Phosphatase 106 U/L (46-116) C-Reactive Protein, Quantitative < 0.4 mg/dL (0.00-0.90) Total Protein 6.6 G/DL (6.4-8.2) Albumin 2.8 G/DL (3.4-5.0) L Globulin 3.8 g/dL Albumin/Globulin Ratio 0.7 (1.0-2.7) L Urine Color Yellow Urine Appearance Cloudy Urine pH 7 (4.5-8.0) Urine Specific [place] 1.010 (1.005-1.035) Urine Protein 2+ (NEGATIVE) H Urine Glucose (UA) Negative (NEGATIVE) Urine Ketones Negative (NEGATIVE) Urine Blood 4+ (NEGATIVE) H Urine Nitrite Negative (NEGATIVE) Urine Bilirubin Negative (NEGATIVE) Urine Urobilinogen Normal MG/DL (0.0-1.0) Urine Leukocyte Esterase 3+ (NEGATIVE) H Urine RBC 15-20 /HPF (0 - 2) H Urine WBC Tntc /HPF (0 - 2) H Urine Squamous Epithelial Cells Moderate /LPF (NONE/OCC) H Urine Bacteria Few /HPF (NONE) Urine Yeast Many /HPF (NONE) H Objective HEENT: PERRLA, EOMI, Trach site with moderate secretions. NECK: Cannot assess JVP, no carotid bruit with normal upstroke. LUNGS: Bilateral rhonchi. CARDIAC: Regular rhythm and rate. Bradycardic, Normal S1, S2 with no murmurs, gallops or rubs. ABDOMEN: Soft with G-tube. No hepatomegaly. EXTREMITIES: No edema, clubbing or cyanosis. Desmond Gleason MD Jan 13, 2020 22:01
[2020-01-14] VITALS: BP 108/47
[2020-01-14] MEDS: Haloperidol 5mg/ml Inj IM PRN (02:25)
[2020-01-14 04:00] VITALS: BP_SYST 102; BP_DIAS 5; BP_DIAS 51
[2020-01-14 06:13] LABS: BASOPHILS % (AUTO) 0.6 % (0.0-2.0); EOSINOPHILS % (AUTO) 7.6 % (0.0-3.0); HEMATOCRIT 33.6 % (37.0-47.0); HEMOGLOBIN 10.4 G/DL (12.0-16.0); MEAN CORPUSCULAR VOLUME 98 FL (80-99); MONOCYTES % (AUTO) 5.7 % (1.0-10.0); NEUTROPHILS % (AUTO) 72.1 % (45.0-75.0); PLATELET COUNT 338 K/UL (150-450); RED BLOOD COUNT 3.43 M/UL (4.20-5.40); RED CELL DISTRIBUTION WIDTH 16.4 % (11.6-14.8); WHITE BLOOD COUNT 12.4 K/UL (4.8-10.8)
[2020-01-14 06:36] LABS: ALANINE AMINOTRANSFERASE 45 U/L (12-78); ALBUMIN 3.1 G/DL (3.4-5.0); ALBUMIN/GLOBULIN RATIO 0.7 (1.0-2.7); ALKALINE PHOSPHATASE 125 U/L (46-116); ANION GAP 5 mmol/L (5-15); ASPARTATE AMINO TRANSFERASE 35 U/L (15-37); BILIRUBIN,TOTAL 0.2 MG/DL (0.2-1.0); BLOOD UREA NITROGEN 10 mg/dL (7-18); CARBON DIOXIDE 30 MMOL/L (21-32); CHLORIDE 104 MMOL/L (98-107); CREATININE 0.5 MG/DL (0.55-1.30); POTASSIUM 4.1 MMOL/L (3.5-5.1); SODIUM 139 MMOL/L (136-145)
--- NOTE | 2020-01-14 07:44 | Hematology/Onc Progress Note ---
Assessment/Plan Assessment/Plan # Thrombocytopenia med related v labs error --> plt trend 167-->61-->227 --> meds have been reviewed --> no hep or lovenox (if less than 50k plt) # Anemia rule out underlying gi bleed --> Dr. Carrillo has been consulted-->endosco gastric ulceration --> trend hgb 7-->7.4-->7.9-->8.1->9.6-->8.5->9.1-->10 --> anemia panel ordered-->reviewed --> prn transfusion --> protonix started # Leukocytosis is likely related to pna on imaging --> abx has been started --> if wbc worsens, consider abx vanc/zosyn--> ceftriaxone-->vanc --> smear is noted --> wbc 25-->15-->14-->16->7.6-->12 # Sepsis --> on abx for pna --> pressors as needed # Pneumonia --> pulm, Dr. 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 custom decorating consultant care, will follow Subjective Constitutional: Denies: no symptoms, chills, fever, malaise, weakness, other HEENT: Denies: no symptoms, eye pain, blurred vision, tearing, double vision, ear pain, ear discharge, nose pain, nose congestion, throat pain, throat swelling, mouth pain, mouth swelling, other Cardiovascular: Denies: no symptoms, chest pain, edema, irregular heart rate, lightheadedness, palpitations, syncope, other Gastrointestinal/Abdominal: Denies: no symptoms, abdomen distended, abdominal pain, black stools, tarry stools, blood in stool, constipated, diarrhea, difficulty swallowing, nausea, poor appetite, poor fluid intake, rectal bleeding , vomiting, other Neurologic/Psychiatric: Denies: no symptoms, anxiety, depressed, emotional problems, headache, numbness, paresthesia, pre-existing deficit, seizure, tingling, tremors, weakness, other Endocrine: Denies: no symptoms, excessive sweating, flushing, intolerance to cold, intolerance to heat, increased hunger, increased thirst, increased urine, unexplained weight gain, unexplained weight loss, other Allergies: Coded Allergies: CARBAMAZEPINE (Verified Allergy, Unknown, 12/31/19) LORAZEPAM (Verified Allergy, Unknown, 12/31/19) Subjective 01/01 altered, trach, no bleedin wbc improved on abx, seen by gi 01/02 egd study noted, also with plts 61k, have vitaly Armendariz Rn, will recheck cbc 01/03 remains agitated, vitaly rn, no bleeding, cbc noted as well as id recs 01/04 on vent, with melena overnight, no bleeding, vitaly rn, labs reviewed 01/06 on vent, remains agitated, no bleeding, vitaly rn, smear is noted 01/07 on vent, restless, asymptomatic, noncooperative 01/[address] John obtained, reviewed, meds adjusted, eeg pending 01/09 labs noted, no bleeding, ativan has been discontinued, meds reviewed 01/10 trach to vent, agitated, with wrist restraints, no major changes, no bleeding 01/11 labs are reviewed, on trach to vent, no bleeding, agitated overnight, no complaints 01/13 labs noted, no bleeding, is on vent/trach, no bleeding, vitaly rn, labs are noted Objective Objective Current Medications Medications (Trade) Dose Ordered Sig/Villa Route PRN Reason Start Time Stop Time Status Last Admin Dose Admin Acetaminophen (Tylenol) 650 mg Q6H PRN GT Temp >100.5 01/01/20 11:00 01/31/20 10:59 01/07/20 08:57 Ascorbic Acid (Vitamin C) 500 mg DAILY ORAL 01/01/20 09:00 01/31/20 08:59 01/13/20 08:42 Dopamine HCl/ Dextrose 250 ml @ 6.974 mls/ hr Q24H IV 01/13/20 19:00 04/12/20 18:59 01/13/20 19:54 Famotidine (Pepcid) 20 mg BID ORAL 01/10/20 18:00 04/09/20 17:59 01/13/20 17:01 Gabapentin (Neurontin) 600 mg TID GT 01/08/20 13:00 02/07/20 12:59 01/13/20 17:01 Haloperidol Lactate (Haldol) 5 mg Q6H PRN IM Agitation 01/01/20 23:30 02/15/20 23:29 01/14/20 02:25 Levetiracetam (Keppra) 1,500 mg Q12HR GT 01/07/20 21:00 02/07/20 08:59 01/13/20 20:26 Levothyroxine Sodium (Synthroid) 75 mcg DAILY ORAL 01/01/20 09:00 01/31/20 08:59 01/13/20 08:42 Loperamide HCl (Imodium) 2 mg Q6H PRN NG Diarrhea 01/07/20 09:45 02/06/20 09:44 01/14/20 02:14 Midodrine (Pro-Amatine) 2.5 mg THREE TIMES A DAY ORAL 01/07/20 09:00 04/06/20 08:59 01/13/20 17:01 Multivitamins Therapeutic (Therapeutic Multivitamin) 1 ea DAILY ORAL 01/01/20 09:00 01/31/20 08:59 01/13/20 08:41 Ondansetron HCl (Zofran) 4 mg Q6H PRN ORAL Nausea & Vomiting 12/31/19 21:00 01/30/20 20:59 Oxcarbazepine (TrileptaL) 300 mg BEDTIME ORAL 01/10/20 21:00 02/07/20 20:59 01/13/20 20:25 Potassium Chloride (K-Dur) 20 meq TWICE A DAY GT 01/11/20 09:00 04/10/20 08:59 01/13/20 17:01 Thiamine HCl (Vitamin B1) 100 mg DAILY ORAL 01/01/20 09:00 01/31/20 08:59 01/13/20 08:42 Vancomycin HCl (Firvanq) 125 mg FOUR TIMES A DAY ORAL 01/10/20 13:00 01/17/20 23:59 01/13/20 20:26 Last 24 Hour Vital Signs Date Time Temp Pulse Resp B/P (MAP) Pulse Ox O2 Delivery O2 Flow Rate FiO2 01/14/20 07:00 114/57 01/14/20 06:00 122/65 01/14/20 05:29 64 22 30 01/14/20 05:00 115/60 01/14/20 04:00 30 01/14/20 04:00 Mechanical Ventilator 01/14/20 04:00 102/51 01/14/20 04:00 97.9 80 20 102/51 (68) 99 01/14/20 04:00 87 01/14/20 03:20 66 18 30 01/14/20 03:00 98/51 01/14/20 02:00 101/49 01/14/20 01:30 62 16 30 01/14/20 01:00 110/59 01/14/20 00:00 108/50 01/14/20 00:00 30 01/14/20 00:00 98.0 60 20 108/47 (67) 99 01/14/20 00:00 52 01/14/20 00:00 Mechanical Ventilator 01/13/20 23:00 108/47 01/13/20 22:58 50 14 30 01/13/20 22:00 100/50 01/13/20 21:00 105/49 01/13/20 21:00 66 17 30 01/13/20 20:37 97.9 65 20 101/55 (70) 99 01/13/20 20:00 30 01/13/20 20:00 97.9 65 20 79/49 (59) 99 01/13/20 20:00 Mechanical Ventilator 01/13/20 19:54 79/50 01/13/20 19:24 59 01/13/20 18:55 59 17 30 01/13/20 16:48 58 16 30 01/13/20 16:00 98.0 70 24 86/70 (75) 98 01/13/20 16:00 Mechanical Ventilator 01/13/20 16:00 30 01/13/20 16:00 66 01/13/20 15:24 59 16 30 01/13/20 15:05 86/70 01/13/20 14:05 102/48 01/13/20 12:49 59 01/13/20 12:41 64 24 30 01/13/20 12:00 Mechanical Ventilator 01/13/20 12:00 102/48 01/13/20 12:00 98.1 63 13 102/48 (66) 100 01/13/20 12:00 30 01/13/20 11:23 61 18 30 8/29/20 09:10 68 17 30 01/13/20 09:08 100 01/13/20 09:00 Mechanical Ventilator 01/13/20 08:00 76 01/13/20 07:58 30 01/13/20 07:57 97.9 84 22 107/55 (72) 100 01/13/20 07:17 68 17 30 01/13/20 07:00 107/55 01/13/20 06:42 98/59 01/13/20 05:00 59 19 30 01/13/20 04:00 30 01/13/20 04:00 100/66 01/13/20 04:00 Mechanical Ventilator 01/13/20 04:00 97.9 70 12 100/66 (77) 100 01/13/20 03:37 60 01/13/20 03:24 62 18 30 01/13/20 00:43 58 18 30 01/13/20 00:00 Mechanical Ventilator 01/13/20 00:00 30 01/13/20 00:00 94/66 01/13/20 00:00 98.1 60 16 94/66 (75) 100 01/12/20 23:58 97 01/12/20 22:40 62 20 30 01/12/20 20:30 57 18 30 01/12/20 20:00 Mechanical Ventilator 01/12/20 20:00 98.1 58 12 92/56 (68) 100 01/12/20 20:00 92/56 01/12/20 20:00 30 01/12/20 19:57 60 01/12/20 19:25 55 19 30 01/12/20 17:10 51 17 30 01/12/20 16:00 Mechanical Ventilator 15.0 01/12/20 16:00 98.1 55 18 96/61 (73) 100 01/12/20 16:00 58 01/12/20 16:00 96/61 01/12/20 16:00 30 01/12/20 15:14 63 20 30 01/12/20 12:45 62 16 30 01/12/20 12:00 97.5 60 15 100/78 (85) 98 01/12/20 12:00 Mechanical Ventilator 15.0 01/12/20 12:00 30 01/12/20 12:00 66 01/12/20 11:20 58 16 30 01/12/20 10:52 35 01/12/20 09:36 100 01/12/20 09:10 53 14 30 01/12/20 08:46 67 129/97 (108) 01/12/20 08:00 Mechanical Ventilator 15.0 01/12/20 08:00 88/43 01/12/20 08:00 97.5 60 15 97/51 (66) 100 01/12/20 08:00 30 Intake and Output 01/13/20 01/14/20 19:00 07:00 Intake Total 761.840 ml 690.430 ml Balance 761.840 ml 690.430 ml Intake Free Water 60 ml 180 ml IV Total 41.840 ml 70.430 ml Tube Feeding 660 ml 440 ml Labs Test 01/13/20 02:55 01/13/20 13:10 01/14/20 04:38 White Blood Count 17.0 K/UL (4.8-10.8) 12.4 K/UL (4.8-10.8) Red Blood Count 3.10 M/UL (4.20-5.40) 3.43 M/UL (4.20-5.40) Hemoglobin 9.3 G/DL (12.0-16.0) 10.4 G/DL (12.0-16.0) Hematocrit 29.9 % (37.0-47.0) 33.6 % (37.0-47.0) Mean Corpuscular Volume 97 FL (80-99) 98 FL (80-99) Mean Corpuscular Hemoglobin 30.1 PG (27.0-31.0) 30.3 PG (27.0-31.0) Mean Corpuscular Hemoglobin Concent 31.1 G/DL (32.0-36.0) 31.0 G/DL (32.0-36.0) Red Cell Distribution Width 16.1 % (11.6-14.8) 16.4 % (11.6-14.8) Platelet Count 288 K/UL (150-450) 338 K/UL (150-450) Mean Platelet Volume 6.6 FL (6.5-10.1) 6.8 FL (6.5-10.1) Neutrophils (%) (Auto) 77.1 % (45.0-75.0) 72.1 % (45.0-75.0) Lymphocytes (%) (Auto) 11.3 % (20.0-45.0) 14.0 % (20.0-45.0) Monocytes (%) (Auto) 5.3 % (1.0-10.0) 5.7 % (1.0-10.0) Eosinophils (%) (Auto) 5.9 % (0.0-3.0) 7.6 % (0.0-3.0) Basophils (%) (Auto) 0.4 % (0.0-2.0) 0.6 % (0.0-2.0) Sodium Level 138 MMOL/L (136-145) 139 MMOL/L (136-145) Potassium Level 4.3 MMOL/L (3.5-5.1) 4.1 MMOL/L (3.5-5.1) Chloride Level 103 MMOL/L (98-107) 104 MMOL/L (98-107) Carbon Dioxide Level 30 MMOL/L (21-32) 30 MMOL/L (21-32) Anion Gap 5 mmol/L (5-15) 5 mmol/L (5-15) Blood Urea Nitrogen 11 mg/dL (7-18) 10 mg/dL (7-18) Creatinine 0.5 MG/DL (0.55-1.30) 0.5 MG/DL (0.55-1.30) Estimat Glomerular Filtration Rate > 60 mL/min (>60) > 60 mL/min (>60) Glucose Level 79 MG/DL (74-106) 80 MG/DL (74-106) Calcium Level 9.2 MG/DL (8.5-10.1) 9.0 MG/DL (8.5-10.1) Phosphorus Level 3.5 MG/DL (2.5-4.9) Magnesium Level 1.7 MG/DL (1.8-2.4) Total Bilirubin 0.3 MG/DL (0.2-1.0) 0.2 MG/DL (0.2-1.0) Aspartate Amino Transf (AST/SGOT) 30 U/L (15-37) 35 U/L (15-37) Alanine Aminotransferase (ALT/SGPT) 38 U/L (12-78) 45 U/L (12-78) Alkaline Phosphatase 106 U/L (46-116) 125 U/L (46-116) C-Reactive Protein, Quantitative < 0.4 mg/dL (0.00-0.90) 0.7 mg/dL (0.00-0.90) Total Protein 6.6 G/DL (6.4-8.2) 7.5 G/DL (6.4-8.2) Albumin 2.8 G/DL (3.4-5.0) 3.1 G/DL (3.4-5.0) Globulin 3.8 g/dL 4.4 g/dL Albumin/Globulin Ratio 0.7 (1.0-2.7) 0.7 (1.0-2.7) Urine Color Yellow Urine Appearance Cloudy Urine pH 7 (4.5-8.0) Urine Specific [place] 1.010 (1.005-1.035) Urine Protein 2+ (NEGATIVE) Urine Glucose (UA) Negative (NEGATIVE) Urine Ketones Negative (NEGATIVE) Urine Blood 4+ (NEGATIVE) Urine Nitrite Negative (NEGATIVE) Urine Bilirubin Negative (NEGATIVE) Urine Urobilinogen Normal MG/DL (0.0-1.0) Urine Leukocyte Esterase 3+ (NEGATIVE) Urine RBC 15-20 /HPF (0 - 2) Urine WBC Tntc /HPF (0 - 2) Urine Squamous Epithelial Cells Moderate /LPF (NONE/OCC) Urine Bacteria Few /HPF (NONE) Urine Yeast Many /HPF (NONE) Height (Feet): 5 Height (Inches): 1.00 Weight (Pounds): 81 Objective Vital Signs General Appearance: ++ cachectic, chronically ill HEENT: normocephalic, atraumatic ++ trach Resp: other -. vent ++ Cardiovascular: regular rate, rhythm, no edema Gastrointestinal: gtube in place, without erythema Rectal: other - Hemoccult positive [place]: back normal, gait/station normal, non-tender Lymphatic: no adenopathy Baltazar Cortes MD Jan 14, 2020 07:44
[2020-01-14 08:00] VITALS: BP 114/57
[2020-01-14] MEDS: Ascorbic Acid 500mg tab ORAL SCH (09:05)
[2020-01-14] MEDS: Thiamine 100mg tab ORAL SCH (09:05)
[2020-01-14] MEDS: Vancomycin oral 125mg/2.5ml ORAL SCH ×4 (09:05→20:57)
[2020-01-14] MEDS: Multivitamin w/Minerals tab ORAL SCH (09:06)
--- NOTE | 2020-01-14 09:42 | Nephrology Progress Note ---
Assessment/Plan Problem List: (1) RICHARD (acute kidney injury) (2) Dehydration (3) Anemia (4) GI bleed (5) Malnutrition (6) Seizure disorder (7) Electrolyte imbalance Assessment Renal failure, in the form of prerenal azotemia, most likely secondary to GI bleed GI bleed, leading to severe anemia Sepsis, pneumonia Chronic tracheostomy, ventilator dependent History of CVA History of seizure disorder History of psychiatric disorder Severe malnutrition Electrolyte abnormalities Plan January 13: Labs reviewed. Stable from renal standpoint of view. January 12: Labs reviewed. Stable from renal standpoint of view January 11: No labs drawn today stable from renal standpoint of view January 10: Labs reviewed. Potassium supplement given. Continue per consultants. January 09: Lab reviewed. Potassium supplement given. IV fluid discontinued. January 08: Lab reviewed. Renal parameters stable. Continue per consultants. January 07: Lab reviewed. Renal parameters stable. Continue per consultants. January 06: Lab reviewed. Stable from renal standpoint of view. January 05: Labs reviewed. Stable from renal standpoint of view. Continue per consultants. January 04: No labs drawn today. Will check labs tomorrow. Continue per consultants. January 03: Lab reviewed. Renal parameters stable. IV fluid discontinued. High LFTs declining. Continue same. January 02: Lab reviewed. Renal parameters stable. Continue per PMD and consultants. LFTs remain elevated. Continue to monitor. Continue slow hydration Discontinue blood pressure medications as her blood pressure is low Discontinue diuretics Monitor renal parameters Transfusion as needed GI evaluation Correct electrolyte abnormalities Check B12 level, folate, and thyroid function tests: Results noted Subjective ROS Limited/Unobtainable: Yes Objective Objective Last 24 Hour Vital Signs Date Time Temp Pulse Resp B/P (MAP) Pulse Ox O2 Delivery O2 Flow Rate FiO2 01/14/20 08:00 98.2 87 25 114/57 (76) 95 01/14/20 08:00 30 01/14/20 07:49 85 01/14/20 07:00 114/57 01/14/20 06:00 122/65 01/14/20 05:29 64 22 30 01/14/20 05:00 115/60 01/14/20 04:00 30 01/14/20 04:00 Mechanical Ventilator 01/14/20 04:00 102/51 01/14/20 04:00 97.9 80 20 102/51 (68) 99 01/14/20 04:00 87 01/14/20 03:20 66 18 30 01/14/20 03:00 98/51 01/14/20 02:00 101/49 01/14/20 01:30 62 16 30 01/14/20 01:00 110/59 01/14/20 00:00 108/50 01/14/20 00:00 30 01/14/20 00:00 98.0 60 20 108/47 (67) 99 01/14/20 00:00 52 01/14/20 00:00 Mechanical Ventilator 01/13/20 23:00 108/47 01/13/20 22:58 50 14 30 01/13/20 22:00 100/50 01/13/20 21:00 105/49 01/13/20 21:00 66 17 30 01/13/20 20:37 97.9 65 20 101/55 (70) 99 01/13/20 20:00 30 01/13/20 20:00 97.9 65 20 79/49 (59) 99 01/13/20 20:00 Mechanical Ventilator 01/13/20 19:54 79/50 01/13/20 19:24 59 01/13/20 18:55 59 17 30 01/13/20 16:48 58 16 30 01/13/20 16:00 98.0 70 24 86/70 (75) 98 01/13/20 16:00 Mechanical Ventilator 01/13/20 16:00 30 01/13/20 16:00 66 01/13/20 15:24 59 16 30 01/13/20 15:05 86/70 01/13/20 14:05 102/48 01/13/20 12:49 59 01/13/20 12:41 64 24 30 01/13/20 12:00 Mechanical Ventilator 01/13/20 12:00 102/48 01/13/20 12:00 98.1 63 13 102/48 (66) 100 01/13/20 12:00 30 01/13/20 11:23 61 18 30 Intake and Output 01/13/20 01/14/20 19:00 07:00 Intake Total 761.840 ml 690.430 ml Balance 761.840 ml 690.430 ml Intake Free Water 60 ml 180 ml IV Total 41.840 ml 70.430 ml Tube Feeding 660 ml 440 ml Laboratory Tests 01/13/20 13:10: Urine Color Yellow, Urine Appearance Cloudy, Urine pH 7, Urine Specific [place] 1.010, Urine Protein 2+H, Urine Glucose (UA) Negative, Urine Ketones Negative, Urine Blood 4+H, Urine Nitrite Negative, Urine Bilirubin Negative, Urine Urobilinogen Normal, Urine Leukocyte Esterase 3+H, Urine RBC 15-20H, Urine WBC TntcH, Urine Squamous Epithelial Cells ModerateH, Urine Bacteria Few, Urine Yeast ManyH 01/14/20 04:38: White Blood Count 12.4H, Red Blood Count 3.43L, Hemoglobin 10.4L, Hematocrit 33.6L, Mean Corpuscular Volume 98, Mean Corpuscular Hemoglobin 30.3, Mean Corpuscular Hemoglobin Concent 31.0L, Red Cell Distribution Width 16.4H, Platelet Count 338, Mean Platelet Volume 6.8, Neutrophils (%) (Auto) 72.1, Lymphocytes (%) (Auto) 14.0L, Monocytes (%) (Auto) 5.7, Eosinophils (%) (Auto) 7.6H, Basophils (%) (Auto) 0.6, Erythrocyte Sedimentation Rate 42H, Sodium Level 139, Potassium Level 4.1, Chloride Level 104, Carbon Dioxide Level 30, Anion Gap 5, Blood Urea Nitrogen 10, Creatinine 0.5L, Estimat Glomerular Filtration Rate > 60, Glucose Level 80, Calcium Level 9.0, Total Bilirubin 0.2, Aspartate Amino Transf (AST/SGOT) 35, Alanine Aminotransferase (ALT/SGPT) 45, Alkaline Phosphatase 125H, C-Reactive Protein, Quantitative 0.7, Total Protein 7.5, Albumin 3.1L, Globulin 4.4, Albumin/Globulin Ratio 0.7L Height (Feet): 5 Height (Inches): 1.00 Weight (Pounds): 81 General Appearance: no apparent distress EENT: other - Trach and vent Cardiovascular: normal rate Respiratory/Chest: decreased breath sounds Abdomen: soft Chivo Holloway MD Jan 14, 2020 09:42
[2020-01-14] MEDS: levETIRAcetam 500mg/5ml Liquid GT SCH ×2 (09:44→20:59)
[2020-01-14] MEDS: Gabapentin 300 MG/6 ML Soln GT SCH ×3 (09:45→17:45)
--- NOTE | 2020-01-14 09:59 | Diagnostic Imaging Report ---
EXAM: XR Chest, 1 View CLINICAL HISTORY: F/U TECHNIQUE: Frontal view of the chest. COMPARISON: No relevant prior studies available. FINDINGS: Lungs: Unremarkable. No consolidation. Pleural space: Unremarkable. No pneumothorax. Heart: Unremarkable. No cardiomegaly. Mediastinum: Unremarkable. Bones/joints: Unremarkable. There is a tracheostomy tube in good position. IMPRESSION: No acute findings in the chest.
--- NOTE | 2020-01-14 10:00 | Diagnostic Imaging Report ---
EXAM: XR Abdomen, 2 Views CLINICAL HISTORY: F/U TECHNIQUE: Frontal view of the abdomen/pelvis with upright view of the abdomen. COMPARISON: No relevant prior studies available. FINDINGS: Intraperitoneal space: No free air. Gastrointestinal tract: Unremarkable. No dilation. Bones/joints: Unremarkable. Tubes, lines and devices: There is a gastrostomy tube in the left upper quadrant. There are surgical clips in the gallbladder fossa. IMPRESSION: No acute findings in the abdomen or pelvis.
--- NOTE | 2020-01-14 10:32 | Pulmonology Progress Note ---
Ivanna Mora RESERVOIR ENGINEERING MANAGER 01/14/20 1032: Subjective ROS Limited/Unobtainable: Yes Allergies: Coded Allergies: CARBAMAZEPINE (Verified Allergy, Unknown, 12/31/19) LORAZEPAM (Verified Allergy, Unknown, 12/31/19) Subjective leukocytosis trending down, no fevers tachypneic, BP better with Dopamine gtt CXR 01/13 no acute findings KUB 01/13 no acute findings stool C dif + 01/07 on po Vanco prior episodes of witnessed seizure x2 EEG abnormal no further seizure activity Objective Last 24 Hour Vital Signs Date Time Temp Pulse Resp B/P (MAP) Pulse Ox O2 Delivery O2 Flow Rate FiO2 01/14/20 10:20 100 01/14/20 09:10 109 28 30 01/14/20 08:15 85 28 30 01/14/20 08:00 98.2 87 25 114/57 (76) 95 01/14/20 08:00 30 01/14/20 07:49 85 01/14/20 07:00 114/57 01/14/20 06:00 122/65 01/14/20 05:29 64 22 30 01/14/20 05:00 115/60 01/14/20 04:00 30 01/14/20 04:00 Mechanical Ventilator 01/14/20 04:00 102/51 01/14/20 04:00 97.9 80 20 102/51 (68) 99 01/14/20 04:00 87 01/14/20 03:20 66 18 30 01/14/20 03:00 98/51 01/14/20 02:00 101/49 01/14/20 01:30 62 16 30 01/14/20 01:00 110/59 01/14/20 00:00 108/50 01/14/20 00:00 30 01/14/20 00:00 98.0 60 20 108/47 (67) 99 01/14/20 00:00 52 01/14/20 00:00 Mechanical Ventilator 01/13/20 23:00 108/47 01/13/20 22:58 50 14 30 01/13/20 22:00 100/50 01/13/20 21:00 105/49 01/13/20 21:00 66 17 30 01/13/20 20:37 97.9 65 20 101/55 (70) 99 01/13/20 20:00 30 01/13/20 20:00 97.9 65 20 79/49 (59) 99 01/13/20 20:00 Mechanical Ventilator 01/13/20 19:54 79/50 01/13/20 19:24 59 01/13/20 18:55 59 17 30 01/13/20 16:48 58 16 30 01/13/20 16:00 98.0 70 24 86/70 (75) 98 01/13/20 16:00 Mechanical Ventilator 01/13/20 16:00 30 01/13/20 16:00 66 01/13/20 15:24 59 16 30 01/13/20 15:05 86/70 01/13/20 14:05 102/48 01/13/20 12:49 59 01/13/20 12:41 64 24 30 01/13/20 12:00 Mechanical Ventilator 01/13/20 12:00 102/48 01/13/20 12:00 98.1 63 13 102/48 (66) 100 01/13/20 12:00 30 01/13/20 11:23 61 18 30 Intake and Output 01/13/20 01/14/20 19:00 07:00 Intake Total 761.840 ml 690.430 ml Balance 761.840 ml 690.430 ml Intake Free Water 60 ml 180 ml IV Total 41.840 ml 70.430 ml Tube Feeding 660 ml 440 ml Objective General Appearance: bedridden, pale, chronically ill looking, older than her biological age ; vent dependent female ; on vent SIMV 450-30%-12, PEEP 5 Lines, tubes and drains: peripheral, trach HEENT: normocephalic, atraumatic Neck: trach - Portex #7, secretions small amount, yellow color, thin consistency Respiratory/Chest: CTAB Cardiovascular/Chest: regular rate, regular rhythm Abdomen: non tender, soft, G tube Genitourinary/Rectal: [place] Extremities: no edema, muscle atrophy Neurologic: abnormal gait, poorly responsive, more awake , eyes open Musculoskeletal: atrophy BLE Skin: multiple tattoos Laboratory Tests 01/13/20 13:10: Urine Color Yellow, Urine Appearance Cloudy, Urine pH 7, Urine Specific [place] 1.010, Urine Protein 2+H, Urine Glucose (UA) Negative, Urine Ketones Negative, Urine Blood 4+H, Urine Nitrite Negative, Urine Bilirubin Negative, Urine Urobilinogen Normal, Urine Leukocyte Esterase 3+H, Urine RBC 15-20H, Urine WBC TntcH, Urine Squamous Epithelial Cells ModerateH, Urine Bacteria Few, Urine Yeast ManyH 01/14/20 04:38: White Blood Count 12.4H, Red Blood Count 3.43L, Hemoglobin 10.4L, Hematocrit 33.6L, Mean Corpuscular Volume 98, Mean Corpuscular Hemoglobin 30.3, Mean Corpuscular Hemoglobin Concent 31.0L, Red Cell Distribution Width 16.4H, Platelet Count 338, Mean Platelet Volume 6.8, Neutrophils (%) (Auto) 72.1, Lymphocytes (%) (Auto) 14.0L, Monocytes (%) (Auto) 5.7, Eosinophils (%) (Auto) 7.6H, Basophils (%) (Auto) 0.6, Erythrocyte Sedimentation Rate 42H, Sodium Level 139, Potassium Level 4.1, Chloride Level 104, Carbon Dioxide Level 30, Anion Gap 5, Blood Urea Nitrogen 10, Creatinine 0.5L, Estimat Glomerular Filtration Rate > 60, Glucose Level 80, Calcium Level 9.0, Total Bilirubin 0.2, Aspartate Amino Transf (AST/SGOT) 35, Alanine Aminotransferase (ALT/SGPT) 45, Alkaline Phosphatase 125H, C-Reactive Protein, Quantitative 0.7, Total Protein 7.5, Albumin 3.1L, Globulin 4.4, Albumin/Globulin Ratio 0.7L Current Medications Medications (Trade) Dose Ordered Sig/Villa Route PRN Reason Start Time Stop Time Status Last Admin Dose Admin Acetaminophen (Tylenol) 650 mg Q6H PRN GT Temp >100.5 01/01/20 11:00 01/31/20 10:59 01/07/20 08:57 Ascorbic Acid (Vitamin C) 500 mg DAILY ORAL 01/01/20 09:00 01/31/20 08:59 01/14/20 09:05 Dopamine HCl/ Dextrose 250 ml @ 6.974 mls/ hr Q24H IV 01/13/20 19:00 04/12/20 18:59 01/13/20 19:54 Famotidine (Pepcid) 20 mg BID ORAL 01/10/20 18:00 04/09/20 17:59 01/14/20 09:06 Gabapentin (Neurontin) 600 mg TID GT 01/08/20 13:00 02/07/20 12:59 01/14/20 09:45 Haloperidol Lactate (Haldol) 5 mg Q6H PRN IM Agitation 01/01/20 23:30 02/15/20 23:29 01/14/20 02:25 Levetiracetam (Keppra) 1,500 mg Q12HR GT 01/07/20 21:00 02/07/20 08:59 01/14/20 09:44 Levothyroxine Sodium (Synthroid) 75 mcg DAILY ORAL 01/01/20 09:00 01/31/20 08:59 01/14/20 09:05 Loperamide HCl (Imodium) 2 mg Q6H PRN NG Diarrhea 01/07/20 09:45 02/06/20 09:44 01/14/20 02:14 Midodrine (Pro-Amatine) 2.5 mg THREE TIMES A DAY ORAL 01/07/20 09:00 04/06/20 08:59 01/14/20 09:05 Multivitamins Therapeutic (Therapeutic Multivitamin) 1 ea DAILY ORAL 01/01/20 09:00 01/31/20 08:59 01/14/20 09:06 Ondansetron HCl (Zofran) 4 mg Q6H PRN ORAL Nausea & Vomiting 12/31/19 21:00 01/30/20 20:59 Oxcarbazepine (TrileptaL) 300 mg BEDTIME ORAL 01/10/20 21:00 02/07/20 20:59 01/13/20 20:25 Potassium Chloride (K-Dur) 20 meq TWICE A DAY GT 01/11/20 09:00 04/10/20 08:59 01/14/20 09:06 Thiamine HCl (Vitamin B1) 100 mg DAILY ORAL 01/01/20 09:00 01/31/20 08:59 01/14/20 09:05 Vancomycin HCl (Firvanq) 125 mg FOUR TIMES A DAY ORAL 01/10/20 13:00 01/17/20 23:59 01/14/20 09:05 Assessment/Plan Assessment/Plan ASSESSMENT VDRF/trach status Sepsis Possible pneumonia recurrent GI bleeding C dif colitis Anemia secondary to GI bleeding Aspiration risk Dysphagia, feeding by G-tube Encephalopathy Acute kidney injury likely secondary to dehydration Bradycardia Hypotension Electrolyte imbalance Severe protein calorie malnutrition Hx of hypertension History of CVA Seizure disorder with witnessed seizure episode 01/07 Psychiatric disorder Presumed scabies, s/p Rx Thrombocytopenia-transient- resolved PLAN OF CARE JULIANA vent support, pulm toilet ABG stable on current settings, on SIMV mode 450-30-12 PEEP5 , no signs of resp distress on these settings keep settings as is and titrate as needed now tachypneic, will check ABG in am CXR 01/13 stable pulm toilet via HHN Theophylline level was high -25; ->was dc prior leuk trendign down, no fevers, possibly due to C dif pancx-per ID CXR 01/13- no acute findings KUB 01/13- no acute findings UA + yeast , UCX pending fup with CXR, check inflammatory markers : ESR-42, CRP- wnl prior BCX 05/18 +CONS likely contaminant, off Vanco ; repeated BCX 01/01 and 01/02 NGTD SCX + Proteus , was on Ceftriaxone as per ID recs for poss SBP in setting of GI bleeding - completed BCX 01/01 and 01/02 NGTD stool C dif 01/07 +, on oral vanco rapid COVID 19 NGT in ED aspiration precautions Venous Duplex BLE -negative, get SCD ( unable to give a/c given anemia) closely monitor hemodynamic status Protonix IV GT feeding stool OB positive transfuse to keep Hgb > 7. heme and GI follows s/p EGD 01/01 -> gastric ulcer across G tube site , no active bleeding HH at baseline monitor for any further episodes of Gi bleeding trend LFT-> trended down, hep panel NGT hx of cirrhosis- per GI management hypotension-> Midodrine, s/p IV fluids, on Dopamine gtt bradycardia -> Midodrine dose decreased and prior Theophylline was started by primary but dc due to increased level cardio follows HR better monitor renal parameters, lytes, avoid nephrotoxic BUN trending down, creat stable, likely prerenal due to dehydration replace e/lytes as per nephro recs monitor volumes seizure precautions, antiepileptic optimized as per neuro recs ammonia 49, fup with further neuro recs EEG - grossly abnormal; mild to mod encephalopathy, single ictal episode CT head no acute IC pathology BP management with current regimen SNF meds supportive care dietary recs s/p 8/17 Rx for presumed scabies with permethrin and Ivermectin, repeated Ivermectin 01/08 case discussed and evaluated by supervising physician Jeyson Anderson MD 01/14/202039: Subjective Allergies: Coded Allergies: CARBAMAZEPINE (Verified Allergy, Unknown, 12/31/19) LORAZEPAM (Verified Allergy, Unknown, 12/31/19) Assessment/Plan Assessment/Plan Patient seen and examined with RESERVOIR ENGINEERING MANAGER. Agree with above A&P as it reflects our joint deliberations. Ivanna Mora RESERVOIR ENGINEERING MANAGER Jan 14, 2020 10:32 Jeyson Anderson MD Jan 14, 2020 20:40
[2020-01-14 12:00] VITALS: BP 105/51
--- NOTE | 2020-01-14 12:37 | Surgery Progress Note ---
Surgery Progress Note Subjective Symptoms: improved, pain absent Additional Comments cxr and kub improved comfortable no n/v/f/c Objective Last 24 Hour Vital Signs Date Time Temp Pulse Resp B/P (MAP) Pulse Ox O2 Delivery O2 Flow Rate FiO2 01/14/20 11:10 90 30 30 01/14/20 10:20 100 01/14/20 09:10 109 28 30 01/14/20 08:15 85 28 30 01/14/20 08:00 98.2 87 25 114/57 (76) 95 01/14/20 08:00 30 01/14/20 08:00 Mechanical Ventilator 01/14/20 07:49 85 01/14/20 07:00 114/57 01/14/20 06:00 122/65 01/14/20 05:29 64 22 30 01/14/20 05:00 115/60 01/14/20 04:00 30 01/14/20 04:00 Mechanical Ventilator 01/14/20 04:00 102/51 01/14/20 04:00 97.9 80 20 102/51 (68) 99 01/14/20 04:00 87 01/14/20 03:20 66 18 30 01/14/20 03:00 98/51 01/14/20 02:00 101/49 01/14/20 01:30 62 16 30 01/14/20 01:00 110/59 01/14/20 00:00 108/50 01/14/20 00:00 30 01/14/20 00:00 98.0 60 20 108/47 (67) 99 01/14/20 00:00 52 01/14/20 00:00 Mechanical Ventilator 01/13/20 23:00 108/47 01/13/20 22:58 50 14 30 01/13/20 22:00 100/50 01/13/20 21:00 105/49 01/13/20 21:00 66 17 30 01/13/20 20:37 97.9 65 20 101/55 (70) 99 01/13/20 20:00 30 01/13/20 20:00 97.9 65 20 79/49 (59) 99 01/13/20 20:00 Mechanical Ventilator 01/13/20 19:54 79/50 01/13/20 19:24 59 01/13/20 18:55 59 17 30 01/13/20 16:48 58 16 30 01/13/20 16:00 98.0 70 24 86/70 (75) 98 01/13/20 16:00 Mechanical Ventilator 01/13/20 16:00 30 01/13/20 16:00 66 01/13/20 15:24 59 16 30 01/13/20 15:05 86/70 01/13/20 14:05 102/48 01/13/20 12:49 59 01/13/20 12:41 64 24 30 I&O Intake and Output 01/13/20 01/14/20 19:00 07:00 Intake Total 761.840 ml 690.430 ml Balance 761.840 ml 690.430 ml Intake Free Water 60 ml 180 ml IV Total 41.840 ml 70.430 ml Tube Feeding 660 ml 440 ml Dressing: other Wound: other Cardiovascular: RSR Respiratory: decreased breath sounds Abdomen: soft, non-tender, present bowel sounds Extremities: no tenderness, no cyanosis, other Laboratory Tests Test 01/13/20 13:10 01/14/20 04:38 Urine Color Yellow Urine Appearance Cloudy Urine pH 7 (4.5-8.0) Urine Specific [place] 1.010 (1.005-1.035) Urine Protein 2+ (NEGATIVE) H Urine Glucose (UA) Negative (NEGATIVE) Urine Ketones Negative (NEGATIVE) Urine Blood 4+ (NEGATIVE) H Urine Nitrite Negative (NEGATIVE) Urine Bilirubin Negative (NEGATIVE) Urine Urobilinogen Normal MG/DL (0.0-1.0) Urine Leukocyte Esterase 3+ (NEGATIVE) H Urine RBC 15-20 /HPF (0 - 2) H Urine WBC Tntc /HPF (0 - 2) H Urine Squamous Epithelial Cells Moderate /LPF (NONE/OCC) H Urine Bacteria Few /HPF (NONE) Urine Yeast Many /HPF (NONE) H White Blood Count 12.4 K/UL (4.8-10.8) H Red Blood Count 3.43 M/UL (4.20-5.40) L Hemoglobin 10.4 G/DL (12.0-16.0) L Hematocrit 33.6 % (37.0-47.0) L Mean Corpuscular Volume 98 FL (80-99) Mean Corpuscular Hemoglobin 30.3 PG (27.0-31.0) Mean Corpuscular Hemoglobin Concent 31.0 G/DL (32.0-36.0) L Red Cell Distribution Width 16.4 % (11.6-14.8) H Platelet Count 338 K/UL (150-450) Mean Platelet Volume 6.8 FL (6.5-10.1) Neutrophils (%) (Auto) 72.1 % (45.0-75.0) Lymphocytes (%) (Auto) 14.0 % (20.0-45.0) L Monocytes (%) (Auto) 5.7 % (1.0-10.0) Eosinophils (%) (Auto) 7.6 % (0.0-3.0) H Basophils (%) (Auto) 0.6 % (0.0-2.0) Erythrocyte Sedimentation Rate 42 MM/HR (0-20) H Sodium Level 139 MMOL/L (136-145) Potassium Level 4.1 MMOL/L (3.5-5.1) Chloride Level 104 MMOL/L (98-107) Carbon Dioxide Level 30 MMOL/L (21-32) Anion Gap 5 mmol/L (5-15) Blood Urea Nitrogen 10 mg/dL (7-18) Creatinine 0.5 MG/DL (0.55-1.30) L Estimat Glomerular Filtration Rate > 60 mL/min (>60) Glucose Level 80 MG/DL (74-106) Calcium Level 9.0 MG/DL (8.5-10.1) Total Bilirubin 0.2 MG/DL (0.2-1.0) Aspartate Amino Transf (AST/SGOT) 35 U/L (15-37) Alanine Aminotransferase (ALT/SGPT) 45 U/L (12-78) Alkaline Phosphatase 125 U/L (46-116) H C-Reactive Protein, Quantitative 0.7 mg/dL (0.00-0.90) Total Protein 7.5 G/DL (6.4-8.2) Albumin 3.1 G/DL (3.4-5.0) L Globulin 4.4 g/dL Albumin/Globulin Ratio 0.7 (1.0-2.7) L Plan Problems: (1) Pneumonia (2) Sepsis Assessment & Plan: leukocytosis anemia lactic acidosis agree with GI recommend EGD planned for 12/31 hold feeding for now trend h/h monitor for bleeding no acute hemorrhage will be available in event needs exploration for hemostasis prbc as per heme thank you will follow with recs cont abx Pt presented on admission in emaciated state. Pt has tracheostomy and GT. NO skin concerns noted to skin under collar of trach. NO erythema or evidence of skin erosion at GT site. Pt noted to have scaly pimple-like rash with webbing noted to R and L axillae, undersides of both breasts, Bilat groin and lower back. Tracking and webbing noted to hands and feet. Pt restless and scratching at skin. Non-Blanching erythema without induration or fluctuance noted to R and L hips and trochanteric areas.Non-blanching erythema noted along spine. Non-Blanching erythema without induration noted to Sacrum. Non-Blanching erythema noted to R and L Malleoli and both heels. Tx.Plan: Please apply Cavilon Skin Barrier to each bony Prominences at risks for Skin Breakdown. Cover each area with Optifoam drsgs. Change every 7 days and prn. Apply Moisture Barrier Paste to Sacrum. Cover with Optifoam drsg. Change every 3 days and prn. Reposition at least every 2hours or as tolerated. Off-load heels with pillow. APM/EMELI Mattress overlay. improving cont current care plan There is marked enlargement of the third and lateral ventricles and extra axial CSF spaces, in particular the former. There is considerable periventricular deep white matter low-attenuation. Otherwise normal mobley-white differentiation. No acute hemorrhage or edema. No mass effect nor midline shift. Visualized orbits and sinuses are unremarkable. The calvarium is intact Impression: Third and lateral ventriculomegaly. Associated enlargement of the extra axial CSF spaces indicates that this is probably due to central volume loss, but the possibility of hydrocephalus should also be considered. At the degree of volume loss is considerably out of proportion to patient's age. Correlate with clinical history Periventricular deep white matter low-attenuation. Probably on the basis of microvascular ischemic change but given patient's age the possibility of demyelinating disease should be considered as well. Negative for acute intracranial bleed or mass effect (3) GI bleed (4) G tube feedings Assessment & Plan: DAILY ESTIMATED NEEDS: Needs based on Underweight, critical care 37.3kg 30-40 kcals/kg 7282-4449 total kcals 1.25-2 g protein/kg 47-75 g total protein 25-35 mL/kg [id number] total fluid mLs NUTRITION DIAGNOSIS: Increased kcal and pro needs r/t underweight status as evidenced by BMI 14.1, pt is 68% of ideal body weight w/ generalized severe wasting, trach and peg dep. CURRENT TF:Vital AF 1.2 @55 x20 hrs ENTERAL NUTRITION RECOMMENDATIONS: Vital AF 1.2 @ 55ml/hr x20 hrs to provide 1100ml 1320kcal 83g prot, 892ml free water - Rec to continue elemental TF formula while stool C-diff positive, +LBM - HOLD 1HR BEFORE AND AFTER SYNTHROID MEDS - Flush per . HOB over 30 degrees ADDITIONAL RECOMMENDATIONS: 1) Per SNF: 5'4" and 81# Maintain calibrated bed scale wts w/ added P200 mattress 2) Lytes daily madhav w/ loose stools, replete as needed 3) Skin integrity: Continue BRIAN VIA GT BID + Vit C 4) Accuchecks for Hypoglycemia 5) Add probiotics for stool C-diff+ . George Woods Jan 14, 2020 12:37
[2020-01-14 16:00] VITALS: BP 117/71
[2020-01-14] MEDS ORDERED: NS 275ml ONE (17:21)
[2020-01-14 20:00] VITALS: BP 95/12
[2020-01-14] MEDS: OXcarbazepine 150mg tab ORAL SCH (20:57)
[2020-01-14] MEDS: DOPamine 400mg/250ml 250 ML IV SCH (20:57)
[2020-01-15] VITALS: BP 96/67
[2020-01-15 04:00] VITALS: BP 119/64
[2020-01-15] MEDS: DOPamine 400mg/250ml 250 ML IV SCH (05:31)
[2020-01-15 06:29] LABS: HEMATOCRIT 34.8 % (37.0-47.0); HEMOGLOBIN 11.2 G/DL (12.0-16.0); MEAN CORPUSCULAR VOLUME 95 FL (80-99); PLATELET COUNT 354 K/UL (150-450); RED BLOOD COUNT 3.64 M/UL (4.20-5.40); RED CELL DISTRIBUTION WIDTH 16.2 % (11.6-14.8); WHITE BLOOD COUNT 20.4 K/UL (4.8-10.8)
[2020-01-15 07:12] LABS: ANION GAP 7 mmol/L (5-15); BLOOD UREA NITROGEN 15 mg/dL (7-18); CALCIUM 9.6 MG/DL (8.5-10.1); CARBON DIOXIDE 30 MMOL/L (21-32); CHLORIDE 103 MMOL/L (98-107); CREATININE 0.5 MG/DL (0.55-1.30); POTASSIUM 4.4 MMOL/L (3.5-5.1); SODIUM 140 MMOL/L (136-145)
--- NOTE | 2020-01-15 07:25 | Hematology/Onc Progress Note ---
Assessment/Plan Assessment/Plan # Thrombocytopenia med related v labs error --> plt trend 167-->61-->227 --> meds have been reviewed --> no hep or lovenox (if less than 50k plt) # Anemia rule out underlying gi bleed --> Dr. Carrillo has been consulted-->endosco gastric ulceration --> trend hgb 7-->7.4-->7.9-->8.1->9.6-->8.5->9.1-->10-->11 --> anemia panel ordered-->reviewed --> prn transfusion --> protonix started # Leukocytosis is likely related to pna on imaging --> abx has been started --> if wbc worsens, consider abx vanc/zosyn--> ceftriaxone-->vanc --> smear is noted --> wbc 25-->15-->14-->16->7.6-->12-->20 --> pressors prn # Sepsis --> on abx for pna --> pressors as needed # Pneumonia --> pulm, Dr. 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 care, will follow Subjective Constitutional: Denies: no symptoms, chills, fever, malaise, weakness, other HEENT: Denies: no symptoms, eye pain, blurred vision, tearing, double vision, ear pain, ear discharge, nose pain, nose congestion, throat pain, throat swelling, mouth pain, mouth swelling, other Cardiovascular: Denies: no symptoms, chest pain, edema, irregular heart rate, lightheadedness, palpitations, syncope, other Respiratory: Denies: no symptoms, cough, shortness of breath, SOB with excertion, SOB at rest, sputum, wheezing, other Gastrointestinal/Abdominal: Denies: no symptoms, abdomen distended, abdominal pain, black stools, tarry stools, blood in stool, constipated, diarrhea, difficulty swallowing, nausea, poor appetite, poor fluid intake, rectal bleeding , vomiting, other Genitourinary: Denies: no symptoms, burning, discharge, frequency, flank pain, hematuria, incontinence, pain, urgency, other Neurologic/Psychiatric: Denies: no symptoms, anxiety, depressed, emotional problems, headache, numbness, paresthesia, pre-existing deficit, seizure, tingling, tremors, weakness, other Endocrine: Denies: no symptoms, excessive sweating, flushing, intolerance to cold, intolerance to heat, increased hunger, increased thirst, increased urine, unexplained weight gain, unexplained weight loss, other Allergies: Coded Allergies: CARBAMAZEPINE (Verified Allergy, Unknown, 12/31/19) LORAZEPAM (Verified Allergy, Unknown, 12/31/19) Subjective 01/01 altered, trach, no bleedin wbc improved on abx, seen by gi 01/02 egd study noted, also with plts 61k, have vitaly Armendariz Rn, will recheck cbc 01/03 remains agitated, vitaly rn, no bleeding, cbc noted as well as id recs 01/04 on vent, with melena overnight, no bleeding, vitaly rn, labs reviewed 01/06 on vent, remains agitated, no bleeding, vitaly rn, smear is noted 01/07 on vent, restless, asymptomatic, noncooperative 01/[address] John obtained, reviewed, meds adjusted, eeg pending 01/09 labs noted, no bleeding, ativan has been discontinued, meds reviewed 01/10 trach to vent, agitated, with wrist restraints, no major changes, no bleeding 01/11 labs are reviewed, on trach to vent, no bleeding, agitated overnight, no complaints 01/13 labs noted, no bleeding, is on vent/trach, no bleeding, vitaly rn, labs are noted 01/14 labs are noted, no bleeding, remains on v/t, remains agitated, no bleeding Objective Objective Current Medications Medications (Trade) Dose Ordered Sig/Villa Route PRN Reason Start Time Stop Time Status Last Admin Dose Admin Acetaminophen (Tylenol) 650 mg Q6H PRN GT Temp >100.5 01/01/20 11:00 01/31/20 10:59 01/07/20 08:57 Ascorbic Acid (Vitamin C) 500 mg DAILY ORAL 01/01/20 09:00 01/31/20 08:59 01/14/20 09:05 Dopamine HCl/ Dextrose 250 ml @ 6.974 mls/ hr Q24H IV 01/13/20 19:00 04/12/20 18:59 01/15/20 05:31 Famotidine (Pepcid) 20 mg BID ORAL 01/10/20 18:00 04/09/20 17:59 01/14/20 17:45 Gabapentin (Neurontin) 600 mg TID GT 01/08/20 13:00 02/07/20 12:59 01/14/20 17:45 Haloperidol Lactate (Haldol) 5 mg Q6H PRN IM Agitation 01/01/20 23:30 02/15/20 23:29 01/14/20 02:25 Levetiracetam (Keppra) 1,500 mg Q12HR GT 01/07/20 21:00 02/07/20 08:59 01/14/20 20:59 Levothyroxine Sodium (Synthroid) 75 mcg DAILY ORAL 01/01/20 09:00 01/31/20 08:59 01/14/20 09:05 Loperamide HCl (Imodium) 2 mg Q6H PRN NG Diarrhea 01/07/20 09:45 02/06/20 09:44 01/14/20 02:14 Midodrine (Pro-Amatine) 2.5 mg THREE TIMES A DAY ORAL 01/07/20 09:00 04/06/20 08:59 01/14/20 17:45 Multivitamins Therapeutic (Therapeutic Multivitamin) 1 ea DAILY ORAL 01/01/20 09:00 01/31/20 08:59 01/14/20 09:06 Ondansetron HCl (Zofran) 4 mg Q6H PRN ORAL Nausea & Vomiting 12/31/19 21:00 01/30/20 20:59 Oxcarbazepine (TrileptaL) 300 mg BEDTIME ORAL 01/10/20 21:00 02/07/20 20:59 01/14/20 20:57 Potassium Chloride (K-Dur) 20 meq TWICE A DAY GT 01/11/20 09:00 04/10/20 08:59 01/14/20 17:45 Thiamine HCl (Vitamin B1) 100 mg DAILY ORAL 01/01/20 09:00 01/31/20 08:59 01/14/20 09:05 Vancomycin HCl (Firvanq) 125 mg FOUR TIMES A DAY ORAL 01/10/20 13:00 01/17/20 23:59 01/14/20 20:57 Last 24 Hour Vital Signs Date Time Temp Pulse Resp B/P (MAP) Pulse Ox O2 Delivery O2 Flow Rate FiO2 01/15/20 07:01 89 29 30 01/15/20 05:31 119/64 01/15/20 05:15 92 29 30 01/15/20 04:00 Mechanical Ventilator 01/15/20 04:00 90 01/15/20 04:00 98.9 88 20 119/64 (82) 98 01/15/20 04:00 30 01/15/20 02:50 97 34 30 01/15/20 00:55 85 32 30 01/15/20 00:00 Mechanical Ventilator 01/15/20 00:00 98.7 100 30 96/67 (77) 97 01/15/20 00:00 30 01/14/20 23:50 100 01/14/20 23:18 101 30 30 01/14/20 20:57 95/72 01/14/20 20:50 98 33 30 01/14/20 20:00 Mechanical Ventilator 01/14/20 20:00 99.0 103 30 95/12 (39) 95 01/14/20 19:31 105 01/14/20 19:19 104 32 30 01/14/20 17:00 113 35 30 01/14/20 16:00 Mechanical Ventilator 01/14/20 16:00 98.1 107 35 117/71 (86) 94 01/14/20 16:00 30 01/14/20 15:20 116 01/14/20 15:10 121 33 30 01/14/20 13:10 91 32 30 01/14/20 12:00 105/51 01/14/20 12:00 Mechanical Ventilator 01/14/20 12:00 30 01/14/20 12:00 99.0 107 33 105/51 (69) 94 01/14/20 11:42 94 01/14/20 11:10 90 30 30 01/14/20 10:20 100 01/14/20 09:10 109 28 30 01/14/20 08:15 85 28 30 01/14/20 08:00 114/57 01/14/20 08:00 98.2 87 25 114/57 (76) 95 01/14/20 08:00 30 01/14/20 08:00 Mechanical Ventilator 01/14/20 07:49 85 01/14/20 07:00 114/57 01/14/20 06:00 122/65 01/14/20 05:29 64 22 30 01/14/20 05:00 115/60 01/14/20 04:00 30 01/14/20 04:00 Mechanical Ventilator 01/14/20 04:00 102/51 01/14/20 04:00 97.9 80 20 102/51 (68) 99 01/14/20 04:00 87 01/14/20 03:20 66 18 30 01/14/20 03:00 98/51 01/14/20 02:00 101/49 01/14/20 01:30 62 16 30 01/14/20 01:00 110/59 01/14/20 00:00 108/50 01/14/20 00:00 30 01/14/20 00:00 98.0 60 20 108/47 (67) 99 01/14/20 00:00 52 01/14/20 00:00 Mechanical Ventilator 01/13/20 23:00 108/47 01/13/20 22:58 50 14 30 01/13/20 22:00 100/50 01/13/20 21:00 105/49 01/13/20 21:00 66 17 30 01/13/20 20:37 97.9 65 20 101/55 (70) 99 01/13/20 20:00 30 01/13/20 20:00 97.9 65 20 79/49 (59) 99 01/13/20 20:00 Mechanical Ventilator 01/13/20 19:54 79/50 01/13/20 19:24 59 01/13/20 18:55 59 17 30 01/13/20 16:48 58 16 30 01/13/20 16:00 98.0 70 24 86/70 (75) 98 01/13/20 16:00 Mechanical Ventilator 01/13/20 16:00 30 01/13/20 16:00 66 01/13/20 15:24 59 16 30 01/13/20 15:05 86/70 01/13/20 14:05 102/48 01/13/20 12:49 59 01/13/20 12:41 64 24 30 01/13/20 12:00 Mechanical Ventilator 01/13/20 12:00 102/48 01/13/20 12:00 98.1 63 13 102/48 (66) 100 01/13/20 12:00 30 01/13/20 11:23 61 18 30 01/13/20 09:10 68 17 30 01/13/20 09:08 100 01/13/20 09:00 Mechanical Ventilator 01/13/20 08:00 76 01/13/20 07:58 30 01/13/20 07:57 97.9 84 22 107/55 (72) 100 Intake and Output 01/14/20 01/15/20 19:00 07:00 Intake Total 1043.688 ml 888.5887 ml Output Total 1000 ml 400 ml Balance 43.688 ml 488.5887 ml Intake Free Water 350 ml 300 ml IV Total 83.688 ml 38.5887 ml Tube Feeding 550 ml 550 ml Other 60 ml Output Urine Total 1000 ml 400 ml Labs Test 01/13/20 02:55 01/13/20 13:10 01/14/20 04:38 01/15/20 03:26 White Blood Count 17.0 K/UL (4.8-10.8) 12.4 K/UL (4.8-10.8) 20.4 K/UL (4.8-10.8) Red Blood Count 3.10 M/UL (4.20-5.40) 3.43 M/UL (4.20-5.40) 3.64 M/UL (4.20-5.40) Hemoglobin 9.3 G/DL (12.0-16.0) 10.4 G/DL (12.0-16.0) 11.2 G/DL (12.0-16.0) Hematocrit 29.9 % (37.0-47.0) 33.6 % (37.0-47.0) 34.8 % (37.0-47.0) Mean Corpuscular Volume 97 FL (80-99) 98 FL (80-99) 95 FL (80-99) Mean Corpuscular Hemoglobin 30.1 PG (27.0-31.0) 30.3 PG (27.0-31.0) 30.7 PG (27.0-31.0) Mean Corpuscular Hemoglobin Concent 31.1 G/DL (32.0-36.0) 31.0 G/DL (32.0-36.0) 32.2 G/DL (32.0-36.0) Red Cell Distribution Width 16.1 % (11.6-14.8) 16.4 % (11.6-14.8) 16.2 % (11.6-14.8) Platelet Count 288 K/UL (150-450) 338 K/UL (150-450) 354 K/UL (150-450) Mean Platelet Volume 6.6 FL (6.5-10.1) 6.8 FL (6.5-10.1) 6.3 FL (6.5-10.1) Neutrophils (%) (Auto) 77.1 % (45.0-75.0) 72.1 % (45.0-75.0) % (45.0-75.0) Lymphocytes (%) (Auto) 11.3 % (20.0-45.0) 14.0 % (20.0-45.0) % (20.0-45.0) Monocytes (%) (Auto) 5.3 % (1.0-10.0) 5.7 % (1.0-10.0) % (1.0-10.0) Eosinophils (%) (Auto) 5.9 % (0.0-3.0) 7.6 % (0.0-3.0) % (0.0-3.0) Basophils (%) (Auto) 0.4 % (0.0-2.0) 0.6 % (0.0-2.0) % (0.0-2.0) Sodium Level 138 MMOL/L (136-145) 139 MMOL/L (136-145) 140 MMOL/L (136-145) Potassium Level 4.3 MMOL/L (3.5-5.1) 4.1 MMOL/L (3.5-5.1) 4.4 MMOL/L (3.5-5.1) Chloride Level 103 MMOL/L (98-107) 104 MMOL/L (98-107) 103 MMOL/L (98-107) Carbon Dioxide Level 30 MMOL/L (21-32) 30 MMOL/L (21-32) 30 MMOL/L (21-32) Anion Gap 5 mmol/L (5-15) 5 mmol/L (5-15) 7 mmol/L (5-15) Blood Urea Nitrogen 11 mg/dL (7-18) 10 mg/dL (7-18) 15 mg/dL (7-18) Creatinine 0.5 MG/DL (0.55-1.30) 0.5 MG/DL (0.55-1.30) 0.5 MG/DL (0.55-1.30) Estimat Glomerular Filtration Rate > 60 mL/min (>60) > 60 mL/min (>60) > 60 mL/min (>60) Glucose Level 79 MG/DL (74-106) 80 MG/DL (74-106) 67 MG/DL (74-106) Calcium Level 9.2 MG/DL (8.5-10.1) 9.0 MG/DL (8.5-10.1) 9.6 MG/DL (8.5-10.1) Phosphorus Level 3.5 MG/DL (2.5-4.9) Magnesium Level 1.7 MG/DL (1.8-2.4) Total Bilirubin 0.3 MG/DL (0.2-1.0) 0.2 MG/DL (0.2-1.0) Aspartate Amino Transf (AST/SGOT) 30 U/L (15-37) 35 U/L (15-37) Alanine Aminotransferase (ALT/SGPT) 38 U/L (12-78) 45 U/L (12-78) Alkaline Phosphatase 106 U/L (46-116) 125 U/L (46-116) C-Reactive Protein, Quantitative < 0.4 mg/dL (0.00-0.90) 0.7 mg/dL (0.00-0.90) Total Protein 6.6 G/DL (6.4-8.2) 7.5 G/DL (6.4-8.2) Albumin 2.8 G/DL (3.4-5.0) 3.1 G/DL (3.4-5.0) Globulin 3.8 g/dL 4.4 g/dL Albumin/Globulin Ratio 0.7 (1.0-2.7) 0.7 (1.0-2.7) Urine Color Yellow Urine Appearance Cloudy Urine pH 7 (4.5-8.0) Urine Specific [place] 1.010 (1.005-1.035) Urine Protein 2+ (NEGATIVE) Urine Glucose (UA) Negative (NEGATIVE) Urine Ketones Negative (NEGATIVE) Urine Blood 4+ (NEGATIVE) Urine Nitrite Negative (NEGATIVE) Urine Bilirubin Negative (NEGATIVE) Urine Urobilinogen Normal MG/DL (0.0-1.0) Urine Leukocyte Esterase 3+ (NEGATIVE) Urine RBC 15-20 /HPF (0 - 2) Urine WBC Tntc /HPF (0 - 2) Urine Squamous Epithelial Cells Moderate /LPF (NONE/OCC) Urine Bacteria Few /HPF (NONE) Urine Yeast Many /HPF (NONE) Erythrocyte Sedimentation Rate 42 MM/HR (0-20) Height (Feet): 5 Height (Inches): 1.00 Weight (Pounds): 80 Objective Vital Signs General Appearance: ++ cachectic, chronically ill HEENT: normocephalic, atraumatic ++ trach Resp: other -. vent ++ Cardiovascular: regular rate, rhythm, no edema Gastrointestinal: gtube in place, without erythema Rectal: other - Hemoccult positive [place]: back normal, gait/station normal, non-tender Lymphatic: no adenopathy Baltazar Cortes MD Jan 15, 2020 07:25
[2020-01-15 08:00] VITALS: BP 125/58
[2020-01-15] MEDS: Gabapentin 300 MG/6 ML Soln GT SCH ×3 (08:17→17:48)
[2020-01-15] MEDS: levETIRAcetam 500mg/5ml Liquid GT SCH ×2 (08:17→20:42)
[2020-01-15] MEDS: Vancomycin oral 125mg/2.5ml ORAL SCH ×4 (08:18→20:42)
[2020-01-15] MEDS: Multivitamin w/Minerals tab ORAL SCH (08:18)
[2020-01-15] MEDS: Thiamine 100mg tab ORAL SCH (08:18)
[2020-01-15] MEDS: Acetaminophen 650mg/20.3ml GT PRN (08:18)
[2020-01-15] MEDS: Ascorbic Acid 500mg tab ORAL SCH (08:19)
--- NOTE | 2020-01-15 09:04 | General Progress Note ---
Assessment/Plan Problem List: (1) G tube feedings ICD Codes: Z93.1 - Gastrostomy status SNOMED: 967348829, 413430634, 608115710 (2) GI bleed ICD Codes: K92.2 - Gastrointestinal hemorrhage, unspecified SNOMED: 28809237 (3) Sepsis ICD Codes: A41.9 - Sepsis, unspecified organism SNOMED: 46791512 (4) Pneumonia ICD Codes: J18.9 - Pneumonia, unspecified organism SNOMED: 767050805 Status: stable, other - Patient is now hypotensive before over 46 she will receive 500 cc of normal saline bolus to be repeated blood pressure remained below 90 further management will be decided following the boluses treatment repeat laboratory tests will be done in a.m. GEM MCKAY MD Assessment/Plan: s/p EGD gastric ulcer no recurrent bleed G TF monitor H&H C. Diff positive off ppi po vanco pepcid will fu Subjective ROS Limited/Unobtainable: No Allergies: Coded Allergies: CARBAMAZEPINE (Verified Allergy, Unknown, 12/31/19) LORAZEPAM (Verified Allergy, Unknown, 12/31/19) Objective Last 24 Hour Vital Signs Date Time Temp Pulse Resp B/P (MAP) Pulse Ox O2 Delivery O2 Flow Rate FiO2 01/15/20 08:00 99.0 93 14 125/58 (80) 99 01/15/20 07:01 89 29 30 01/15/20 05:31 119/64 01/15/20 05:15 92 29 30 01/15/20 04:00 Mechanical Ventilator 01/15/20 04:00 90 01/15/20 04:00 98.9 88 20 119/64 (82) 98 01/15/20 04:00 30 01/15/20 02:50 97 34 30 01/15/20 00:55 85 32 30 01/15/20 00:00 Mechanical Ventilator 01/15/20 00:00 98.7 100 30 96/67 (77) 97 01/15/20 00:00 30 01/14/20 23:50 100 01/14/20 23:18 101 30 30 01/14/20 20:57 95/72 01/14/20 20:50 98 33 30 01/14/20 20:00 Mechanical Ventilator 01/14/20 20:00 99.0 103 30 95/12 (39) 95 01/14/20 19:31 105 01/14/20 19:19 104 32 30 01/14/20 17:00 113 35 30 01/14/20 16:00 Mechanical Ventilator 01/14/20 16:00 98.1 107 35 117/71 (86) 94 01/14/20 16:00 30 01/14/20 15:20 116 01/14/20 15:10 121 33 30 01/14/20 13:10 91 32 30 01/14/20 12:00 105/51 01/14/20 12:00 Mechanical Ventilator 01/14/20 12:00 30 01/14/20 12:00 99.0 107 33 105/51 (69) 94 01/14/20 11:42 94 01/14/20 11:10 90 30 30 01/14/20 10:20 100 01/14/20 09:10 109 28 30 Intake and Output 01/14/20 01/15/20 19:00 07:00 Intake Total 1043.688 ml 888.5887 ml Output Total 1000 ml 400 ml Balance 43.688 ml 488.5887 ml Intake Free Water 350 ml 300 ml IV Total 83.688 ml 38.5887 ml Tube Feeding 550 ml 550 ml Other 60 ml Output Urine Total 1000 ml 400 ml Laboratory Tests 01/15/20 03:26: White Blood Count 20.4#H, Red Blood Count 3.64L, Hemoglobin 11.2L, Hematocrit 34.8L, Mean Corpuscular Volume 95, Mean Corpuscular Hemoglobin 30.7, Mean Corpuscular Hemoglobin Concent 32.2, Red Cell Distribution Width 16.2H, Platelet Count 354, Mean Platelet Volume 6.3L, Neutrophils (%) (Auto) , Lymphocytes (%) (Auto) , Monocytes (%) (Auto) , Eosinophils (%) (Auto) , Basophils (%) (Auto) , Neutrophils % (Manual) [Pending], Lymphocytes % (Manual) [Pending], Platelet Estimate [Pending], Platelet Morphology [Pending], Sodium Level 140, Potassium Level 4.4, Chloride Level 103, Carbon Dioxide Level 30, Anion Gap 7, Blood Urea Nitrogen 15, Creatinine 0.5L, Estimat Glomerular Filtration Rate > 60, Glucose Level 67L, Calcium Level 9.6 8/31/20 03:32: Magnesium Level 1.9 01/15/20 08:04: Arterial Blood pH 7.446, Arterial Blood Partial Pressure CO2 36.5, Arterial Blood Partial Pressure O2 84.9, Arterial Blood HCO3 24.6, Arterial Blood Oxygen Saturation 96.5, Arterial Blood Base Excess 0.7, Tacos Test Positive Height (Feet): 5 Height (Inches): 1.00 Weight (Pounds): 80 General Appearance: no apparent distress EENT: normal ENT inspection Neck: supple Cardiovascular: normal rate Respiratory/Chest: decreased breath sounds Abdomen: normal bowel sounds, non tender, soft Extremities: non-tender Satish Carrillo MD Jan 15, 2020 09:04
--- NOTE | 2020-01-15 09:44 | Pulmonology Progress Note ---
Ivanna Mora [employer] 01/15/20 0944: Subjective ROS Limited/Unobtainable: No Allergies: Coded Allergies: CARBAMAZEPINE (Verified Allergy, Unknown, 12/31/19) LORAZEPAM (Verified Allergy, Unknown, 12/31/19) Subjective leukocytosis trended up to 20 this am, no fevers tachypneic, ABG stable on current settings BP better with Dopamine gtt CXR 01/13 no acute findings KUB 01/13 no acute findings stool C dif + 01/07 on po Vanco prior episodes of witnessed seizure x2 EEG abnormal no further seizure activity Objective Last 24 Hour Vital Signs Date Time Temp Pulse Resp B/P (MAP) Pulse Ox O2 Delivery O2 Flow Rate FiO2 01/15/20 09:24 73 27 30 01/15/20 09:22 100 01/15/20 08:48 98.0 01/15/20 08:00 99.0 93 14 125/58 (80) 99 01/15/20 07:01 89 29 30 01/15/20 05:31 119/64 01/15/20 05:15 92 29 30 01/15/20 04:00 Mechanical Ventilator 01/15/20 04:00 90 01/15/20 04:00 98.9 88 20 119/64 (82) 98 01/15/20 04:00 30 01/15/20 02:50 97 34 30 01/15/20 00:55 85 32 30 01/15/20 00:00 Mechanical Ventilator 01/15/20 00:00 98.7 100 30 96/67 (77) 97 01/15/20 00:00 30 01/14/20 23:50 100 01/14/20 23:18 101 30 30 01/14/20 20:57 95/72 01/14/20 20:50 98 33 30 01/14/20 20:00 Mechanical Ventilator 01/14/20 20:00 99.0 103 30 95/12 (39) 95 01/14/20 19:31 105 01/14/20 19:19 104 32 30 01/14/20 17:00 113 35 30 01/14/20 16:00 Mechanical Ventilator 01/14/20 16:00 98.1 107 35 117/71 (86) 94 01/14/20 16:00 30 01/14/20 15:20 116 01/14/20 15:10 121 33 30 01/14/20 13:10 91 32 30 01/14/20 12:00 105/51 01/14/20 12:00 Mechanical Ventilator 01/14/20 12:00 30 01/14/20 12:00 99.0 107 33 105/51 (69) 94 01/14/20 11:42 94 01/14/20 11:10 90 30 30 01/14/20 10:20 100 Intake and Output 01/14/20 01/15/20 19:00 07:00 Intake Total 1043.688 ml 888.5887 ml Output Total 1000 ml 400 ml Balance 43.688 ml 488.5887 ml Intake Free Water 350 ml 300 ml IV Total 83.688 ml 38.5887 ml Tube Feeding 550 ml 550 ml Other 60 ml Output Urine Total 1000 ml 400 ml Objective General Appearance: bedridden, pale, chronically ill looking, older than her biological age ; vent dependent female ; on vent SIMV 450-30%-12, PEEP 5 Lines, tubes and drains: peripheral, trach HEENT: normocephalic, atraumatic Neck: trach - Portex #7, secretions small amount, yellow color, thin consistency Respiratory/Chest: CTAB Cardiovascular/Chest: regular rate, regular rhythm Abdomen: non tender, soft, G tube Genitourinary/Rectal: [place] Extremities: no edema, muscle atrophy Neurologic: abnormal gait, poorly responsive, more awake , eyes open Musculoskeletal: atrophy BLE Skin: multiple tattoos Microbiology Date/Time Source Procedure Growth Status 01/13/20 11:30 Blood Blood Culture - Preliminary NO GROWTH AFTER 24 HOURS Resulted 01/13/20 11:20 Blood Blood Culture - Preliminary NO GROWTH AFTER 24 HOURS Resulted 01/13/20 13:10 Urine,Clean Catch Urine Culture - Preliminary YEAST Resulted Laboratory Tests 01/15/20 03:26: White Blood Count 20.4#H, Red Blood Count 3.64L, Hemoglobin 11.2L, Hematocrit 34.8L, Mean Corpuscular Volume 95, Mean Corpuscular Hemoglobin 30.7, Mean Corpuscular Hemoglobin Concent 32.2, Red Cell Distribution Width 16.2H, Platelet Count 354, Mean Platelet Volume 6.3L, Neutrophils (%) (Auto) , Lymphocytes (%) (Auto) , Monocytes (%) (Auto) , Eosinophils (%) (Auto) , Basophils (%) (Auto) , Neutrophils % (Manual) [Pending], Lymphocytes % (Manual) [Pending], Platelet Estimate [Pending], Platelet Morphology [Pending], Sodium Level 140, Potassium Level 4.4, Chloride Level 103, Carbon Dioxide Level 30, Anion Gap 7, Blood Urea Nitrogen 15, Creatinine 0.5L, Estimat Glomerular Filtration Rate > 60, Glucose Level 67L, Calcium Level 9.6 01/15/20 03:32: Magnesium Level 1.9 01/15/20 08:04: Arterial Blood pH 7.446, Arterial Blood Partial Pressure CO2 36.5, Arterial Blood Partial Pressure O2 84.9, Arterial Blood HCO3 24.6, Arterial Blood Oxygen Saturation 96.5, Arterial Blood Base Excess 0.7, Tacos Test Positive Current Medications Medications (Trade) Dose Ordered Sig/Villa Route PRN Reason Start Time Stop Time Status Last Admin Dose Admin Acetaminophen (Tylenol) 650 mg Q6H PRN GT Temp >100.5 01/01/20 11:00 01/31/20 10:59 01/15/20 08:18 Ascorbic Acid (Vitamin C) 500 mg DAILY ORAL 01/01/20 09:00 01/31/20 08:59 01/15/20 08:19 Dopamine HCl/ Dextrose 250 ml @ 6.974 mls/ hr Q24H IV 01/13/20 19:00 04/12/20 18:59 01/15/20 05:31 Famotidine (Pepcid) 20 mg BID ORAL 01/10/20 18:00 04/09/20 17:59 01/15/20 08:18 Gabapentin (Neurontin) 600 mg TID GT 01/08/20 13:00 02/07/20 12:59 01/15/20 08:17 Haloperidol Lactate (Haldol) 5 mg Q6H PRN IM Agitation 01/01/20 23:30 02/15/20 23:29 01/14/20 02:25 Levetiracetam (Keppra) 1,500 mg Q12HR GT 01/07/20 21:00 02/07/20 08:59 01/15/20 08:17 Levothyroxine Sodium (Synthroid) 75 mcg DAILY ORAL 01/01/20 09:00 01/31/20 08:59 01/15/20 08:19 Midodrine (Pro-Amatine) 2.5 mg THREE TIMES A DAY ORAL 01/07/20 09:00 04/06/20 08:59 01/15/20 08:18 Multivitamins Therapeutic (Therapeutic Multivitamin) 1 ea DAILY ORAL 01/01/20 09:00 01/31/20 08:59 01/15/20 08:18 Ondansetron HCl (Zofran) 4 mg Q6H PRN ORAL Nausea & Vomiting 12/31/19 21:00 01/30/20 20:59 Oxcarbazepine (TrileptaL) 300 mg BEDTIME ORAL 01/10/20 21:00 02/07/20 20:59 01/14/20 20:57 Potassium Chloride (K-Dur) 20 meq TWICE A DAY GT 01/11/20 09:00 04/10/20 08:59 01/15/20 08:19 Thiamine HCl (Vitamin B1) 100 mg DAILY ORAL 01/01/20 09:00 01/31/20 08:59 01/15/20 08:18 Vancomycin HCl (Firvanq) 125 mg FOUR TIMES A DAY ORAL 01/10/20 13:00 01/17/20 23:59 01/15/20 08:18 Assessment/Plan Assessment/Plan ASSESSMENT VDRF/trach status Sepsis Possible pneumonia recurrent GI bleeding C dif colitis Anemia secondary to GI bleeding Aspiration risk Dysphagia, feeding by G-tube Encephalopathy Acute kidney injury likely secondary to dehydration Bradycardia Hypotension Electrolyte imbalance Severe protein calorie malnutrition Hx of hypertension History of CVA Seizure disorder with witnessed seizure episode 01/07 Psychiatric disorder Presumed scabies, s/p Rx Thrombocytopenia-transient- resolved PLAN OF CARE JULIANA vent support, pulm toilet ABG stable on current settings, on SIMV mode 450-30-12 PEEP5 , no signs of resp distress on these settings keep settings as is and titrate as needed now tachypneic, ABG repeated this am 01/14 due to tachypnea- remains stable CXR 01/13 stable pulm toilet via HHN Theophylline level was high -25; ->was dc prior leuk trending up , no fevers, possibly due to C dif pancx-per ID CXR 01/13- no acute findings KUB 01/13- no acute findings UA + yeast , 01/12 UCX +yeast, BCX 01/12 NGTD a bx as per ID recs inflammatory markers : ESR-42, CRP- wnl prior BCX 1/2 +CONS likely contaminant, off Vanco ; repeated BCX 01/01 and 01/02 NGTD SCX + Proteus , was on Ceftriaxone as per ID recs for poss SBP in setting of GI bleeding - completed BCX 01/01 and 01/02 NGTD stool C dif 01/07 +, on oral vanco rapid COVID 19 NGT in ED aspiration precautions Venous Duplex BLE -negative, get SCD ( unable to give a/c given anemia) closely monitor hemodynamic status Protonix IV GT feeding stool OB positive transfuse to keep Hgb > 7. heme and GI follows s/p EGD 01/01 -> gastric ulcer across G tube site , no active bleeding HH at baseline monitor for any further episodes of Gi bleeding trend LFT-> trended down, hep panel NGT hx of cirrhosis- per GI management hypotension-> Midodrine, s/p IV fluids, on Dopamine gtt bradycardia -> Midodrine dose decreased and prior Theophylline was started by primary but dc due to increased level cardio follows HR better monitor renal parameters, lytes, avoid nephrotoxic BUN trending down, creat stable, likely prerenal due to dehydration replace e/lytes as per nephro recs monitor volumes seizure precautions, antiepileptic optimized as per neuro recs ammonia 49, fup with further neuro recs EEG - grossly abnormal; mild to mod encephalopathy, single ictal episode CT head no acute IC pathology BP management with current regimen [facility] meds supportive care dietary recs s/p 12/31 Rx for presumed scabies with permethrin and Ivermectin, repeated Ivermectin 01/08 case discussed and evaluated by supervising physician Raul Esparza MD 01/15/20 1721: Subjective Allergies: Coded Allergies: CARBAMAZEPINE (Verified Allergy, Unknown, 12/31/19) LORAZEPAM (Verified Allergy, Unknown, 12/31/19) Assessment/Plan Assessment/Plan Patient seen and examined with [employer]. Agree with above A&P as it reflects our joint deliberations. Ivanna Mora NP Jan 15, 2020 09:44 Raul Esparza MD Jan 15, 2020 17:21
--- NOTE | 2020-01-15 10:22 | Nephrology Progress Note ---
Assessment/Plan Problem List: (1) RICHARD (acute kidney injury) (2) Dehydration (3) Anemia (4) GI bleed (5) Malnutrition (6) Seizure disorder (7) Electrolyte imbalance Assessment Renal failure, in the form of prerenal azotemia, most likely secondary to GI bleed GI bleed, leading to severe anemia Sepsis, pneumonia Chronic tracheostomy, ventilator dependent History of CVA History of seizure disorder History of psychiatric disorder Severe malnutrition Electrolyte abnormalities Plan January 14: Lab reviewed. Renal parameters stable. January 13: Labs reviewed. Stable from renal standpoint of view. January 12: Labs reviewed. Stable from renal standpoint of view January 11: No labs drawn today stable from renal standpoint of view January 10: Labs reviewed. Potassium supplement given. Continue per consultants. January 09: Lab reviewed. Potassium supplement given. IV fluid discontinued. January 08: Lab reviewed. Renal parameters stable. Continue per consultants. January 07: Lab reviewed. Renal parameters stable. Continue per consultants. January 06: Lab reviewed. Stable from renal standpoint of view. January 05: Labs reviewed. Stable from renal standpoint of view. Continue per consultants. January 04: No labs drawn today. Will check labs tomorrow. Continue per consultants. January 03: Lab reviewed. Renal parameters stable. IV fluid discontinued. High LFTs declining. Continue same. January 02: Lab reviewed. Renal parameters stable. Continue per PMD and consultants. LFTs remain elevated. Continue to monitor. Continue slow hydration Discontinue blood pressure medications as her blood pressure is low Discontinue diuretics Monitor renal parameters Transfusion as needed GI evaluation Correct electrolyte abnormalities Check B12 level, folate, and thyroid function tests: Results noted Subjective ROS Limited/Unobtainable: Yes Objective Objective Last 24 Hour Vital Signs Date Time Temp Pulse Resp B/P (MAP) Pulse Ox O2 Delivery O2 Flow Rate FiO2 01/15/20 09:24 73 27 30 01/15/20 09:22 100 01/15/20 08:48 98.0 01/15/20 08:00 99.0 93 14 125/58 (80) 99 01/15/20 08:00 Mechanical Ventilator 01/15/20 07:01 89 29 30 01/15/20 05:31 119/64 01/15/20 05:15 92 29 30 01/15/20 04:00 Mechanical Ventilator 01/15/20 04:00 90 01/15/20 04:00 98.9 88 20 119/64 (82) 98 01/15/20 04:00 30 01/15/20 02:50 97 34 30 01/15/20 00:55 85 32 30 01/15/20 00:00 Mechanical Ventilator 01/15/20 00:00 98.7 100 30 96/67 (77) 97 01/15/20 00:00 30 01/14/20 23:50 100 01/14/20 23:18 101 30 30 01/14/20 20:57 95/72 01/14/20 20:50 98 33 30 01/14/20 20:00 Mechanical Ventilator 01/14/20 20:00 99.0 103 30 95/12 (39) 95 01/14/20 19:31 105 01/14/20 19:19 104 32 30 01/14/20 17:00 113 35 30 01/14/20 16:00 Mechanical Ventilator 01/14/20 16:00 98.1 107 35 117/71 (86) 94 01/14/20 16:00 30 01/14/20 15:20 116 01/14/20 15:10 121 33 30 01/14/20 13:10 91 32 30 01/14/20 12:00 105/51 01/14/20 12:00 Mechanical Ventilator 01/14/20 12:00 30 01/14/20 12:00 99.0 107 33 105/51 (69) 94 01/14/20 11:42 94 01/14/20 11:10 90 30 30 Intake and Output 01/14/20 01/15/20 19:00 07:00 Intake Total 1043.688 ml 888.5887 ml Output Total 1000 ml 400 ml Balance 43.688 ml 488.5887 ml Intake Free Water 350 ml 300 ml IV Total 83.688 ml 38.5887 ml Tube Feeding 550 ml 550 ml Other 60 ml Output Urine Total 1000 ml 400 ml Laboratory Tests 01/15/20 03:26: White Blood Count 20.4#H, Red Blood Count 3.64L, Hemoglobin 11.2L, Hematocrit 34.8L, Mean Corpuscular Volume 95, Mean Corpuscular Hemoglobin 30.7, Mean Corpuscular Hemoglobin Concent 32.2, Red Cell Distribution Width 16.2H, Platelet Count 354, Mean Platelet Volume 6.3L, Neutrophils (%) (Auto) , Lymphocytes (%) (Auto) , Monocytes (%) (Auto) , Eosinophils (%) (Auto) , Basophils (%) (Auto) , Differential Total Cells Counted 100, Neutrophils % ( Manual) 80H, Lymphocytes % (Manual) 7L, Monocytes % (Manual) 6, Eosinophils % ( Manual) 6H, Basophils % (Manual) 1, Band Neutrophils 0, Platelet Estimate Adequate, Platelet Morphology Normal, Hypochromasia 1+, Anisocytosis 1+, Sodium Level 140, Potassium Level 4.4, Chloride Level 103, Carbon Dioxide Level 30, Anion Gap 7, Blood Urea Nitrogen 15, Creatinine 0.5L, Estimat Glomerular Filtration Rate > 60, Glucose Level 67L, Calcium Level 9.6 01/15/20 03:32: Magnesium Level 1.9 01/15/20 08:04: Arterial Blood pH 7.446, Arterial Blood Partial Pressure CO2 36.5, Arterial Blood Partial Pressure O2 84.9, Arterial Blood HCO3 24.6, Arterial Blood Oxygen Saturation 96.5, Arterial Blood Base Excess 0.7, Tacos Test Positive Height (Feet): 5 Height (Inches): 1.00 Weight (Pounds): 80 General Appearance: no apparent distress Neck: other - Trach to vent Cardiovascular: normal rate Respiratory/Chest: decreased breath sounds Abdomen: soft Chivo Holloway MD Jan 15, 2020 10:22
--- NOTE | 2020-01-15 10:58 | Infectious Diseases Prog Note ---
Assessment/Plan 39yo F with: Sepsis Fever to 101.5>>Low grade ; SP Possible pna on CXR Leukocytosis; recurrent; increased -01/13 CXR: no acute disease -01/12 u/a wbc tnct, nit neg, latrell +3; ucx >100k yeast Bcx NTD Cdiff colitis -Cdif toxin + -01/13 KUB: no acute findings Recurrent GIB 01/06 u/aneg 12/30 BCx 1/2 +CONS, likely contaminant 12/30 UA neg, COVID rapid Ag neg 12/30 CXR 1. Density overlying the bilateral lung apices. May represent pleural thickening, multifocal airspace opacities, versus summation artifact. 01/01 BCx Neg 01/02 BCx Neg Seizure episode -01/10 CT head: Third and lateral ventriculomegaly. Associated enlargement of the extra axial CSF spaces indicates that this is probably due to central volume loss, but the possibility of hydrocephalus should also be considered. At the degree of volume loss is considerably out of proportion to patient's age. Periventricular deep white matter low-attenuation. Probably on the basis of microvascular ischemic change but given patient's age the possibility of demyelinating disease should be considered as well. Negative for acute intracranial bleed or mass effect Possible Scabies SP tx w/ Permethrin and Ivermectin 12/31 R/o DVT: None on US 12/30 MRSA nares neg Recurrent GIBs, FOBT+ Hepatic encephalopathy, chronic S/p Trach/PEG Resides at SNF Plan: Cont PO Vancomycin 125mg PO QID #/ for cdiff- may change to Dificid if diarrhea or wbc not improved start PO fluconazole for significant pyuria and leukocytosis 01/08 SP Ceftriaxone #7 01/02 SP vanco #2, Zosyn #2 SP 2nd dose of ivermectin (01/08) f/u BCx, UA/UCx Trend WBC Cont to watch off systemic abx Monitor CBC/CMP Monitor resp status Monitor temp and hemodynamics contact isolation CBC, CMP am D/w RN Thank you for this consult. [facility] will continue to follow. Subjective Allergies: Coded Allergies: CARBAMAZEPINE (Verified Allergy, Unknown, 12/31/19) LORAZEPAM (Verified Allergy, Unknown, 12/31/19) afebrile wbc increased to 20 Bcx NTD Objective Last 24 Hour Vital Signs Date Time Temp Pulse Resp B/P (MAP) Pulse Ox O2 Delivery O2 Flow Rate FiO2 01/15/20 09:24 73 27 30 01/15/20 09:22 100 01/15/20 08:48 98.0 01/15/20 08:00 99.0 93 14 125/58 (80) 99 01/15/20 08:00 Mechanical Ventilator 01/15/20 07:01 89 29 30 01/15/20 05:31 119/64 01/15/20 05:15 92 29 30 01/15/20 04:00 Mechanical Ventilator 01/15/20 04:00 90 01/15/20 04:00 98.9 88 20 119/64 (82) 98 01/15/20 04:00 30 01/15/20 02:50 97 34 30 01/15/20 00:55 85 32 30 01/15/20 00:00 Mechanical Ventilator 01/15/20 00:00 98.7 100 30 96/67 (77) 97 01/15/20 00:00 30 01/14/20 23:50 100 01/14/20 23:18 101 30 30 01/14/20 20:57 95/72 01/14/20 20:50 98 33 30 01/14/20 20:00 Mechanical Ventilator 01/14/20 20:00 99.0 103 30 95/12 (39) 95 01/14/20 19:31 105 01/14/20 19:19 104 32 30 01/14/20 17:00 113 35 30 01/14/20 16:00 Mechanical Ventilator 01/14/20 16:00 98.1 107 35 117/71 (86) 94 01/14/20 16:00 30 01/14/20 15:20 116 01/14/20 15:10 121 33 30 01/14/20 13:10 91 32 30 01/14/20 12:00 105/51 01/14/20 12:00 Mechanical Ventilator 01/14/20 12:00 30 01/14/20 12:00 99.0 107 33 105/51 (69) 94 01/14/20 11:42 94 01/14/20 11:10 90 30 30 Height (Feet): 5 Height (Inches): 1.00 Weight (Pounds): 80 General Appearance: no apparent distress Neck: supple Cardiovascular: normal rate Respiratory/Chest: decreased breath sounds Abdomen: hypoactive bowel sounds Extremities: non-tender Microbiology Date/Time Source Procedure Growth Status 01/13/20 11:30 Blood Blood Culture - Preliminary NO GROWTH AFTER 24 HOURS Resulted 01/13/20 11:20 Blood Blood Culture - Preliminary NO GROWTH AFTER 24 HOURS Resulted 01/13/20 13:10 Urine,Clean Catch Urine Culture - Preliminary YEAST Resulted Laboratory Tests Test 01/15/20 03:26 01/15/20 03:32 01/15/20 08:04 White Blood Count 20.4 K/UL (4.8-10.8) #H Red Blood Count 3.64 M/UL (4.20-5.40) L Hemoglobin 11.2 G/DL (12.0-16.0) L Hematocrit 34.8 % (37.0-47.0) L Mean Corpuscular Volume 95 FL (80-99) Mean Corpuscular Hemoglobin 30.7 PG (27.0-31.0) Mean Corpuscular Hemoglobin Concent 32.2 G/DL (32.0-36.0) Red Cell Distribution Width 16.2 % (11.6-14.8) H Platelet Count 354 K/UL (150-450) Mean Platelet Volume 6.3 FL (6.5-10.1) L Neutrophils (%) (Auto) % (45.0-75.0) Lymphocytes (%) (Auto) % (20.0-45.0) Monocytes (%) (Auto) % (1.0-10.0) Eosinophils (%) (Auto) % (0.0-3.0) Basophils (%) (Auto) % (0.0-2.0) Differential Total Cells Counted 100 Neutrophils % (Manual) 80 % (45-75) H Lymphocytes % (Manual) 7 % (20-45) L Monocytes % (Manual) 6 % (1-10) Eosinophils % (Manual) 6 % (0-3) H Basophils % (Manual) 1 % (0-2) Band Neutrophils 0 % (0-8) Platelet Estimate Adequate Platelet Morphology Normal Hypochromasia 1+ Anisocytosis 1+ Sodium Level 140 MMOL/L (136-145) Potassium Level 4.4 MMOL/L (3.5-5.1) Chloride Level 103 MMOL/L (98-107) Carbon Dioxide Level 30 MMOL/L (21-32) Anion Gap 7 mmol/L (5-15) Blood Urea Nitrogen 15 mg/dL (7-18) Creatinine 0.5 MG/DL (0.55-1.30) L Estimat Glomerular Filtration Rate > 60 mL/min (>60) Glucose Level 67 MG/DL (74-106) L Calcium Level 9.6 MG/DL (8.5-10.1) Magnesium Level 1.9 MG/DL (1.8-2.4) Arterial Blood pH 7.446 (7.350-7.450) Arterial Blood Partial Pressure CO2 36.5 mmHg (35.0-45.0) Arterial Blood Partial Pressure O2 84.9 mmHg (75.0-100.0) Arterial Blood HCO3 24.6 mmol/L (22.0-26.0) Arterial Blood Oxygen Saturation 96.5 % (95-100) Arterial Blood Base Excess 0.7 (-2-2) Tacos Test Positive Current Medications Medications (Trade) Dose Ordered Sig/Villa Route PRN Reason Start Time Stop Time Status Last Admin Dose Admin Acetaminophen (Tylenol) 650 mg Q6H PRN GT Temp >100.5 01/01/20 11:00 01/31/20 10:59 01/15/20 08:18 Ascorbic Acid (Vitamin C) 500 mg DAILY ORAL 01/01/20 09:00 01/31/20 08:59 01/15/20 08:19 Dopamine HCl/ Dextrose 250 ml @ 6.974 mls/ hr Q24H IV 01/13/20 19:00 04/12/20 18:59 01/15/20 05:31 Famotidine (Pepcid) 20 mg BID ORAL 01/10/20 18:00 04/09/20 17:59 01/15/20 08:18 Gabapentin (Neurontin) 600 mg TID GT 01/08/20 13:00 02/07/20 12:59 01/15/20 08:17 Haloperidol Lactate (Haldol) 5 mg Q6H PRN IM Agitation 01/01/20 23:30 02/15/20 23:29 01/14/20 02:25 Levetiracetam (Keppra) 1,500 mg Q12HR GT 01/07/20 21:00 02/07/20 08:59 8/31/20 08:17 Levothyroxine Sodium (Synthroid) 75 mcg DAILY ORAL 01/01/20 09:00 01/31/20 08:59 01/15/20 08:19 Midodrine (Pro-Amatine) 2.5 mg THREE TIMES A DAY ORAL 01/07/20 09:00 04/06/20 08:59 01/15/20 08:18 Multivitamins Therapeutic (Therapeutic Multivitamin) 1 ea DAILY ORAL 01/01/20 09:00 01/31/20 08:59 01/15/20 08:18 Ondansetron HCl (Zofran) 4 mg Q6H PRN ORAL Nausea & Vomiting 12/31/19 21:00 01/30/20 20:59 Oxcarbazepine (TrileptaL) 300 mg BEDTIME ORAL 01/10/20 21:00 02/07/20 20:59 01/14/20 20:57 Potassium Chloride (K-Dur) 20 meq TWICE A DAY GT 01/11/20 09:00 04/10/20 08:59 01/15/20 08:19 Thiamine HCl (Vitamin B1) 100 mg DAILY ORAL 01/01/20 09:00 01/31/20 08:59 01/15/20 08:18 Vancomycin HCl (Firvanq) 125 mg FOUR TIMES A DAY ORAL 01/10/20 13:00 01/17/20 23:59 01/15/20 08:18 Char Morel M.D. Jan 15, 2020 10:58
[2020-01-15 12:00] VITALS: BP 92/48
[2020-01-15] MEDS: Fluconazole 100mg tab GT SCH (12:14)
[2020-01-15] MEDS ORDERED: Morphine Sulfate 2mg/ml Inj(IV/IM USE ONLY) IVP SCH (12:45)
--- NOTE | 2020-01-15 12:46 | Surgery Progress Note ---
Surgery Progress Note Subjective Additional Comments worsening leukocytosis anemia comfortable appearing no n/v exam stable Objective Last 24 Hour Vital Signs Date Time Temp Pulse Resp B/P (MAP) Pulse Ox O2 Delivery O2 Flow Rate FiO2 01/15/20 12:00 97.7 54 16 92/48 (63) 100 01/15/20 10:55 51 20 30 01/15/20 09:24 73 27 30 01/15/20 09:22 100 01/15/20 08:48 98.0 01/15/20 08:00 99.0 93 14 125/58 (80) 99 01/15/20 08:00 95 01/15/20 08:00 Mechanical Ventilator 01/15/20 08:00 30 01/15/20 07:01 89 29 30 01/15/20 05:31 119/64 01/15/20 05:15 92 29 30 01/15/20 04:00 Mechanical Ventilator 01/15/20 04:00 90 01/15/20 04:00 98.9 88 20 119/64 (82) 98 01/15/20 04:00 30 01/15/20 02:50 97 34 30 01/15/20 00:55 85 32 30 01/15/20 00:00 Mechanical Ventilator 01/15/20 00:00 98.7 100 30 96/67 (77) 97 01/15/20 00:00 30 01/14/20 23:50 100 01/14/20 23:18 101 30 30 01/14/20 20:57 95/72 01/14/20 20:50 98 33 30 01/14/20 20:00 Mechanical Ventilator 01/14/20 20:00 99.0 103 30 95/12 (39) 95 01/14/20 19:31 105 01/14/20 19:19 104 32 30 01/14/20 17:00 113 35 30 01/14/20 16:00 Mechanical Ventilator 01/14/20 16:00 98.1 107 35 117/71 (86) 94 01/14/20 16:00 30 01/14/20 15:20 116 01/14/20 15:10 121 33 30 01/14/20 13:10 91 32 30 I&O Intake and Output 01/14/20 01/15/20 19:00 07:00 Intake Total 1043.688 ml 888.5887 ml Output Total 1000 ml 400 ml Balance 43.688 ml 488.5887 ml Intake Free Water 350 ml 300 ml IV Total 83.688 ml 38.5887 ml Tube Feeding 550 ml 550 ml Other 60 ml Output Urine Total 1000 ml 400 ml Dressing: other Wound: other Drains: other Cardiovascular: RSR Respiratory: decreased breath sounds Abdomen: soft, non-tender, present bowel sounds Extremities: no tenderness, no cyanosis Laboratory Tests Test 01/15/20 03:26 01/15/20 03:32 01/15/20 08:04 01/15/20 11:09 White Blood Count 20.4 K/UL (4.8-10.8) #H Red Blood Count 3.64 M/UL (4.20-5.40) L Hemoglobin 11.2 G/DL (12.0-16.0) L Hematocrit 34.8 % (37.0-47.0) L Mean Corpuscular Volume 95 FL (80-99) Mean Corpuscular Hemoglobin 30.7 PG (27.0-31.0) Mean Corpuscular Hemoglobin Concent 32.2 G/DL (32.0-36.0) Red Cell Distribution Width 16.2 % (11.6-14.8) H Platelet Count 354 K/UL (150-450) Mean Platelet Volume 6.3 FL (6.5-10.1) L Neutrophils (%) (Auto) % (45.0-75.0) Lymphocytes (%) (Auto) % (20.0-45.0) Monocytes (%) (Auto) % (1.0-10.0) Eosinophils (%) (Auto) % (0.0-3.0) Basophils (%) (Auto) % (0.0-2.0) Differential Total Cells Counted 100 Neutrophils % (Manual) 80 % (45-75) H Lymphocytes % (Manual) 7 % (20-45) L Monocytes % (Manual) 6 % (1-10) Eosinophils % (Manual) 6 % (0-3) H Basophils % (Manual) 1 % (0-2) Band Neutrophils 0 % (0-8) Platelet Estimate Adequate Platelet Morphology Normal Hypochromasia 1+ Anisocytosis 1+ Sodium Level 140 MMOL/L (136-145) Potassium Level 4.4 MMOL/L (3.5-5.1) Chloride Level 103 MMOL/L (98-107) Carbon Dioxide Level 30 MMOL/L (21-32) Anion Gap 7 mmol/L (5-15) Blood Urea Nitrogen 15 mg/dL (7-18) Creatinine 0.5 MG/DL (0.55-1.30) L Estimat Glomerular Filtration Rate > 60 mL/min (>60) Glucose Level 67 MG/DL (74-106) L Calcium Level 9.6 MG/DL (8.5-10.1) Magnesium Level 1.9 MG/DL (1.8-2.4) Arterial Blood pH 7.446 (7.350-7.450) Arterial Blood Partial Pressure CO2 36.5 mmHg (35.0-45.0) Arterial Blood Partial Pressure O2 84.9 mmHg (75.0-100.0) Arterial Blood HCO3 24.6 mmol/L (22.0-26.0) Arterial Blood Oxygen Saturation 96.5 % (95-100) Arterial Blood Base Excess 0.7 (-2-2) Tacos Test Positive POC Whole Blood Glucose 97 MG/DL (74-106) Plan Problems: (1) Pneumonia (2) Sepsis Assessment & Plan: leukocytosis anemia lactic acidosis agree with GI recommend EGD planned for 12/31 hold feeding for now trend h/h monitor for bleeding no acute hemorrhage will be available in event needs exploration for hemostasis prbc as per heme thank you will follow with recs cont abx Pt presented on admission in emaciated state. Pt has tracheostomy and GT. NO skin concerns noted to skin under collar of trach. NO erythema or evidence of skin erosion at GT site. Pt noted to have scaly pimple-like rash with webbing noted to R and L axillae, undersides of both breasts, Bilat groin and lower back. Tracking and webbing noted to hands and feet. Pt restless and scratching at skin. Non-Blanching erythema without induration or fluctuance noted to R and L hips and trochanteric areas.Non-blanching erythema noted along spine. Non-Blanching erythema without induration noted to Sacrum. Non-Blanching erythema noted to R and L Malleoli and both heels. Tx.Plan: Please apply Cavilon Skin Barrier to each bony Prominences at risks for Skin Breakdown. Cover each area with Optifoam drsgs. Change every 7 days and prn. Apply Moisture Barrier Paste to Sacrum. Cover with Optifoam drsg. Change every 3 days and prn. Reposition at least every 2hours or as tolerated. Off-load heels with pillow. APM/EMELI Mattress overlay. improving cont current care plan There is marked enlargement of the third and lateral ventricles and extra axial CSF spaces, in particular the former. There is considerable periventricular deep white matter low-attenuation. Otherwise normal mobley-white differentiation. No acute hemorrhage or edema. No mass effect nor midline shift. Visualized orbits and sinuses are unremarkable. The calvarium is intact Impression: Third and lateral ventriculomegaly. Associated enlargement of the extra axial CSF spaces indicates that this is probably due to central volume loss, but the possibility of hydrocephalus should also be considered. At the degree of volume loss is considerably out of proportion to patient's age. Correlate with clinical history Periventricular deep white matter low-attenuation. Probably on the basis of microvascular ischemic change but given patient's age the possibility of demyelinating disease should be considered as well. Negative for acute intracranial bleed or mass effect (3) GI bleed (4) G tube feedings Assessment & Plan: DAILY ESTIMATED NEEDS: Needs based on Underweight, critical care 37.3kg 30-40 kcals/kg 5555-2301 total kcals 1.25-2 g protein/kg 47-75 g total protein 25-35 mL/kg 933-1306 total fluid mLs NUTRITION DIAGNOSIS: Increased kcal and pro needs r/t underweight status as evidenced by BMI 14.1, pt is 68% of ideal body weight w/ generalized severe wasting, trach and peg dep. CURRENT TF:Vital AF 1.2 @55 x20 hrs ENTERAL NUTRITION RECOMMENDATIONS: Vital AF 1.2 @ 55ml/hr x20 hrs to provide 1100ml 1320kcal 83g prot, 892ml free water - Rec to continue elemental TF formula while stool C-diff positive, +LBM - HOLD 1HR BEFORE AND AFTER SYNTHROID MEDS - Flush per . HOB over 30 degrees ADDITIONAL RECOMMENDATIONS: 1) Per SNF: 5'4" and 81# Maintain calibrated bed scale wts w/ added P200 mattress 2) Lytes daily madhav w/ loose stools, replete as needed 3) Skin integrity: Continue BRIAN VIA GT BID + Vit C 4) Accuchecks for Hypoglycemia 5) Add probiotics for stool C-diff+ . George Woods Jan 15, 2020 12:46
[2020-01-15 16:00] VITALS: BP 97/59
[2020-01-15 20:00] VITALS: BP 106/56
[2020-01-15] MEDS: OXcarbazepine 150mg tab ORAL SCH (20:42)
--- NOTE | 2020-01-15 21:48 | General Progress Note ---
Assessment/Plan Status: stable, other - Patient is now hypotensive before over 46 she will receive 500 cc of normal saline bolus to be repeated blood pressure remained below 90 further management will be decided following the boluses treatment repeat laboratory tests will be done in a.m. GLENNY MCKAY MD Assessment/Plan: Glenny Harrison Subjective Constitutional: Reports: no symptoms, other - Awake alert afebrile HEENT: Reports: no symptoms, other Cardiovascular: Reports: no symptoms, other - There is eye consult but there is no respiratory or other distress Respiratory: Reports: other - There is no cough wheezing or expectoration Gastrointestinal/Abdominal: Reports: no symptoms Neurologic/Psychiatric: Reports: no symptoms Endocrine: Reports: other - In particular has no new seizures Allergies: Coded Allergies: CARBAMAZEPINE (Verified Allergy, Unknown, 12/31/19) LORAZEPAM (Verified Allergy, Unknown, 12/31/19) Objective Last 24 Hour Vital Signs Date Time Temp Pulse Resp B/P (MAP) Pulse Ox O2 Delivery O2 Flow Rate FiO2 01/15/20 21:03 81 25 30 01/15/20 20:00 30 01/15/20 20:00 72 01/15/20 20:00 Mechanical Ventilator 01/15/20 18:56 73 24 30 01/15/20 17:03 68 26 30 01/15/20 16:00 Mechanical Ventilator 01/15/20 16:00 30 01/15/20 16:00 98.2 64 14 97/59 (72) 97 01/15/20 16:00 69 01/15/20 15:05 65 28 30 01/15/20 12:44 54 20 30 01/15/20 12:00 97.7 54 16 92/48 (63) 100 01/15/20 12:00 30 01/15/20 12:00 92/48 01/15/20 12:00 Mechanical Ventilator 01/15/20 11:31 48 01/15/20 10:55 51 20 30 01/15/20 09:24 73 27 30 01/15/20 09:22 100 01/15/20 08:48 98.0 01/15/20 08:00 99.0 93 14 125/58 (80) 99 01/15/20 08:00 125/58 01/15/20 08:00 95 01/15/20 08:00 Mechanical Ventilator 8/31/20 08:00 30 01/15/20 07:01 89 29 30 01/15/20 05:31 119/64 01/15/20 05:15 92 29 30 01/15/20 04:00 Mechanical Ventilator 01/15/20 04:00 90 01/15/20 04:00 98.9 88 20 119/64 (82) 98 01/15/20 04:00 30 01/15/20 02:50 97 34 30 01/15/20 00:55 85 32 30 01/15/20 00:00 Mechanical Ventilator 01/15/20 00:00 98.7 100 30 96/67 (77) 97 01/15/20 00:00 30 01/14/20 23:50 100 01/14/20 23:18 101 30 30 Intake and Output 01/14/20 01/15/20 19:00 07:00 Intake Total 1043.688 ml 888.5887 ml Output Total 1000 ml 400 ml Balance 43.688 ml 488.5887 ml Intake Free Water 350 ml 300 ml IV Total 83.688 ml 38.5887 ml Tube Feeding 550 ml 550 ml Other 60 ml Output Urine Total 1000 ml 400 ml Laboratory Tests 01/15/20 03:26: White Blood Count 20.4#H, Red Blood Count 3.64L, Hemoglobin 11.2L, Hematocrit 34.8L, Mean Corpuscular Volume 95, Mean Corpuscular Hemoglobin 30.7, Mean Corpuscular Hemoglobin Concent 32.2, Red Cell Distribution Width 16.2H, Platelet Count 354, Mean Platelet Volume 6.3L, Neutrophils (%) (Auto) , Lymphocytes (%) (Auto) , Monocytes (%) (Auto) , Eosinophils (%) (Auto) , Basophils (%) (Auto) , Differential Total Cells Counted 100, Neutrophils % ( Manual) 80H, Lymphocytes % (Manual) 7L, Monocytes % (Manual) 6, Eosinophils % ( Manual) 6H, Basophils % (Manual) 1, Band Neutrophils 0, Platelet Estimate Adequate, Platelet Morphology Normal, Hypochromasia 1+, Anisocytosis 1+, Sodium Level 140, Potassium Level 4.4, Chloride Level 103, Carbon Dioxide Level 30, Anion Gap 7, Blood Urea Nitrogen 15, Creatinine 0.5L, Estimat Glomerular Filtration Rate > 60, Glucose Level 67L, Calcium Level 9.6 01/15/20 03:32: Magnesium Level 1.9 01/15/20 08:04: Arterial Blood pH 7.446, Arterial Blood Partial Pressure CO2 36.5, Arterial Blood Partial Pressure O2 84.9, Arterial Blood HCO3 24.6, Arterial Blood Oxygen Saturation 96.5, Arterial Blood Base Excess 0.7, Tacos Test Positive 01/15/20 11:09: POC Whole Blood Glucose 97 01/15/20 16:48: POC Whole Blood Glucose [Pending] Height (Feet): 5 Height (Inches): 1.00 Weight (Pounds): 80 General Appearance: alert, cachetic, other - There is eye contact there is normal attention span EENT: normal ENT inspection, pale conjunctivae Neck: supple, other - The right unremarkable of adenopathy Cardiovascular: normal rate, regular rhythm, no JVD, other - There is no bradycardia at rest Respiratory/Chest: lungs clear, normal breath sounds, no respiratory distress Abdomen: non tender, soft, no organomegaly, no mass, other - G-tube site is clean Extremities: non-tender, other - There is no cyanosis clubbing or edema Neurologic: alert, responsive, other - There is eye contact but there is no attempt to communicate MIPS Medication Reconciliation 130 Medication Reconciliation Since yesterday patient has been on 5 mcg of dopamine is arousable and the problem of hypotension and bradycardia but did not solve the problem of discharge patient will be admitted with the dopamine she withdraws from fusion on the criteria for discharge and will return back to the subacute unit then to replace the dopamine by G-tube medication will be done next 24 hours repeat laboratory tests will be done in a.m. Glenny Alarcon MD, MD Jan 15, 2020 21:48
--- NOTE | 2020-01-15 23:32 | Psych Consult Progress Note ---
Psychiatry Progress Note Psychiatry Progress Note Subjective the pt is the same the pt attempts to pull out lines. awake confused Medications Current Medications Medications (Trade) Dose Ordered Sig/Villa Route PRN Reason Start Time Stop Time Status Last Admin Dose Admin Acetaminophen (Tylenol) 650 mg Q6H PRN GT Temp >100.5 01/01/20 11:00 01/31/20 10:59 01/15/20 08:18 Ascorbic Acid (Vitamin C) 500 mg DAILY ORAL 01/01/20 09:00 01/31/20 08:59 01/15/20 08:19 Dopamine HCl/ Dextrose 250 ml @ 6.974 mls/ hr Q24H IV 01/13/20 19:00 04/12/20 18:59 01/15/20 05:31 Famotidine (Pepcid) 20 mg BID ORAL 01/10/20 18:00 04/09/20 17:59 01/15/20 17:48 Fluconazole (Diflucan) 100 mg DAILY GT 01/15/20 11:00 01/22/20 10:59 01/15/20 12:14 Gabapentin (Neurontin) 600 mg TID GT 01/08/20 13:00 02/07/20 12:59 01/15/20 17:48 Haloperidol Lactate (Haldol) 5 mg Q6H PRN IM Agitation 01/01/20 23:30 02/15/20 23:29 01/14/20 02:25 Levetiracetam (Keppra) 1,500 mg Q12HR GT 01/07/20 21:00 02/07/20 08:59 01/15/20 20:42 Levothyroxine Sodium (Synthroid) 75 mcg DAILY ORAL 01/01/20 09:00 01/31/20 08:59 01/15/20 08:19 Midodrine (Pro-Amatine) 2.5 mg THREE TIMES A DAY ORAL 01/07/20 09:00 04/06/20 08:59 01/15/20 17:48 Multivitamins Therapeutic (Therapeutic Multivitamin) 1 ea DAILY ORAL 01/01/20 09:00 01/31/20 08:59 01/15/20 08:18 Ondansetron HCl (Zofran) 4 mg Q6H PRN ORAL Nausea & Vomiting 12/31/19 21:00 01/30/20 20:59 Oxcarbazepine (TrileptaL) 300 mg BEDTIME ORAL 01/10/20 21:00 02/07/20 20:59 01/15/20 20:42 Potassium Chloride (K-Dur) 20 meq TWICE A DAY GT 01/11/20 09:00 04/10/20 08:59 01/15/20 17:48 Thiamine HCl (Vitamin B1) 100 mg DAILY ORAL 01/01/20 09:00 01/31/20 08:59 01/15/20 08:18 Vancomycin HCl (Firvanq) 125 mg FOUR TIMES A DAY ORAL 01/10/20 13:00 01/17/20 23:59 01/15/20 20:42 Neurological/Psychiatric: Reports: no symptoms Allergies: Coded Allergies: CARBAMAZEPINE (Verified Allergy, Unknown, 12/31/19) LORAZEPAM (Verified Allergy, Unknown, 12/31/19) Objective Data Height (Feet): 5 Height (Inches): 1.00 Weight (Pounds): 80 General Appearance: alert, cachetic, other - There is eye contact there is normal attention span Additional Comments: waxing and waning consciousness. Affect is flat. Thought process, there is a paucity of thought content. Thought content, no suicidal or homicidal ideation. Cognition is impaired. Insight and judgment is impaired. Assessment/Plan [place] I: tegan ativan cont haldol Status: stable, other - Patient is now hypotensive before over 46 she will receive 500 cc of normal saline bolus to be repeated blood pressure remained below 90 further management will be decided following the boluses treatment repeat laboratory tests will be done in a.m. GEM MCKAY MD Status Narrative tegan ativan cont haldol Assessment/Plan: tegan ativan cont blazedoRhonda Yang MD Jan 15, 2020 23:32
[2020-01-16] VITALS: BP 98/54
[2020-01-16 05:25] LABS: HEMATOCRIT 35.5 % (37.0-47.0); HEMOGLOBIN 11.1 G/DL (12.0-16.0); MEAN CORPUSCULAR VOLUME 99 FL (80-99); PLATELET COUNT 355 K/UL (150-450); RED BLOOD COUNT 3.59 M/UL (4.20-5.40); RED CELL DISTRIBUTION WIDTH 16.2 % (11.6-14.8); WHITE BLOOD COUNT 20.6 K/UL (4.8-10.8)
--- NOTE | 2020-01-16 06:21 | General Progress Note ---
Assessment/Plan Problem List: (1) G tube feedings ICD Codes: Z93.1 - Gastrostomy status SNOMED: 864381348, 845991383, [id number] (2) GI bleed ICD Codes: K92.2 - Gastrointestinal hemorrhage, unspecified SNOMED: 16528410 (3) Sepsis ICD Codes: A41.9 - Sepsis, unspecified organism SNOMED: 41835313 (4) Pneumonia ICD Codes: J18.9 - Pneumonia, unspecified organism SNOMED: 842500269 Status: stable, other - Patient is now hypotensive before over 46 she will receive 500 cc of normal saline bolus to be repeated blood pressure remained below 90 further management will be decided following the boluses treatment repeat laboratory tests will be done in a.m. GEM MCKAY MD Assessment/Plan: s/p EGD gastric ulcer no recurrent bleed G TF monitor H&H C. Diff positive off ppi po vanco pepcid will fu Subjective ROS Limited/Unobtainable: No Allergies: Coded Allergies: CARBAMAZEPINE (Verified Allergy, Unknown, 12/31/19) LORAZEPAM (Verified Allergy, Unknown, 12/31/19) Objective Last 24 Hour Vital Signs Date Time Temp Pulse Resp B/P (MAP) Pulse Ox O2 Delivery O2 Flow Rate FiO2 01/16/20 05:30 75 25 30 01/16/20 03:48 71 01/16/20 03:35 30 01/16/20 03:06 72 33 30 01/16/20 00:39 66 30 30 01/16/20 00:00 30 01/16/20 00:00 Mechanical Ventilator 01/16/20 00:00 72 01/16/20 00:00 98.2 79 15 98/54 (69) 98 01/15/20 23:15 72 27 30 01/15/20 21:03 81 25 30 01/15/20 20:00 30 01/15/20 20:00 98.5 70 14 106/56 (73) 98 01/15/20 20:00 72 01/15/20 20:00 Mechanical Ventilator 01/15/20 18:56 73 24 30 01/15/20 17:03 68 26 30 01/15/20 16:00 Mechanical Ventilator 01/15/20 16:00 30 01/15/20 16:00 98.2 64 14 97/59 (72) 97 01/15/20 16:00 69 01/15/20 15:05 65 28 30 01/15/20 12:44 54 20 30 01/15/20 12:00 97.7 54 16 92/48 (63) 100 01/15/20 12:00 30 01/15/20 12:00 92/48 01/15/20 12:00 Mechanical Ventilator 01/15/20 11:31 48 01/15/20 10:55 51 20 30 01/15/20 09:24 73 27 30 01/15/20 09:22 100 01/15/20 08:48 98.0 01/15/20 08:00 99.0 93 14 125/58 (80) 99 01/15/20 08:00 125/58 01/15/20 08:00 95 01/15/20 08:00 Mechanical Ventilator 01/15/20 08:00 30 01/15/20 07:01 89 29 30 Intake and Output 01/15/20 01/16/20 19:00 07:00 Intake Total 933.688 ml 700.792 ml Output Total 500 ml Balance 433.688 ml 700.792 ml Intake Free Water 300 ml 150 ml IV Total 83.688 ml 55.792 ml Tube Feeding 550 ml 495 ml Output Urine Total 300 ml Stool Total 200 ml # Bowel Movements 1 Laboratory Tests 01/15/20 08:04: Arterial Blood pH 7.446, Arterial Blood Partial Pressure CO2 36.5, Arterial Blood Partial Pressure O2 84.9, Arterial Blood HCO3 24.6, Arterial Blood Oxygen Saturation 96.5, Arterial Blood Base Excess 0.7, Tacos Test Positive 01/15/20 11:09: POC Whole Blood Glucose 97 01/15/20 16:48: POC Whole Blood Glucose [Pending] 01/15/20 22:00: POC Whole Blood Glucose [Pending] 01/16/20 03:30: White Blood Count 20.6H, Red Blood Count 3.59L, Hemoglobin 11.1L, Hematocrit 35.5L, Mean Corpuscular Volume 99, Mean Corpuscular Hemoglobin 31.1H, Mean Corpuscular Hemoglobin Concent 31.4L, Red Cell Distribution Width 16.2H, Platelet Count 355, Mean Platelet Volume 5.8L, Neutrophils (%) (Auto) , Lymphocytes (%) (Auto) , Monocytes (%) (Auto) , Eosinophils (%) (Auto) , Basophils (%) (Auto) , Neutrophils % (Manual) [Pending], Lymphocytes % (Manual) [Pending], Platelet Estimate [Pending], Platelet Morphology [Pending], Sodium Level 138, Potassium Level [Pending], Chloride Level 106, Carbon Dioxide Level 29, Anion Gap 3L, Blood Urea Nitrogen 15, Creatinine [Pending], Estimat Glomerular Filtration Rate [Pending], Glucose Level 58L, Calcium Level 9.1, Total Bilirubin 0.2, Aspartate Amino Transf (AST/SGOT) 23, Alanine Aminotransferase (ALT/SGPT) [Pending], Alkaline Phosphatase 112, Total Protein 6.5, Albumin 3.0L, Globulin 3.5, Albumin/Globulin Ratio 0.9L Height (Feet): 5 Height (Inches): 1.00 Weight (Pounds): 80 General Appearance: no apparent distress EENT: normal ENT inspection Neck: supple Cardiovascular: normal rate Respiratory/Chest: decreased breath sounds Abdomen: normal bowel sounds, non tender, soft Extremities: non-tender Satish Carrillo MD Jan 16, 2020 06:21
[2020-01-16 07:00] VITALS: BP 104/60
--- NOTE | 2020-01-16 07:21 | Hematology/Onc Progress Note ---
Assessment/Plan Assessment/Plan # Thrombocytopenia med related v labs error --> plt trend 167-->61-->227 --> meds have been reviewed --> no hep or lovenox (if less than 50k plt) # Anemia rule out underlying gi bleed --> Dr. Carrillo has been consulted-->endosco gastric ulceration --> trend hgb 7-->7.4-->7.9-->8.1->9.6-->8.5->9.1-->10-->11 --> anemia panel ordered-->reviewed --> prn transfusion --> protonix started # Leukocytosis is likely related to pna on imaging --> abx has been started --> if wbc worsens, consider abx vanc/zosyn--> ceftriaxone-->vanc->fluc/flagyl/ vanc --> smear is noted --> wbc 25-->15-->14-->16->7.6-->12-->20 --> pressors prn # Sepsis --> on abx for pna --> pressors as needed # Pneumonia --> pulm, Dr. 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, will follow Subjective Allergies: Coded Allergies: CARBAMAZEPINE (Verified Allergy, Unknown, 12/31/19) LORAZEPAM (Verified Allergy, Unknown, 12/31/19) All Systems: reviewed and negative except above Subjective 01/01 altered, trach, no bleedin wbc improved on abx, seen by gi 01/02 egd study noted, also with plts 61k, have vitaly Armendariz Rn, will recheck cbc 01/03 remains agitated, vitaly rn, no bleeding, cbc noted as well as id recs 01/04 on vent, with melena overnight, no bleeding, vitaly rn, labs reviewed 01/06 on vent, remains agitated, no bleeding, vitaly rn, smear is noted 01/07 on vent, restless, asymptomatic, noncooperative 01/[address] John obtained, reviewed, meds adjusted, eeg pending 01/09 labs noted, no bleeding, ativan has been discontinued, meds reviewed 01/10 trach to vent, agitated, with wrist restraints, no major changes, no bleeding 01/11 labs are reviewed, on trach to vent, no bleeding, agitated overnight, no complaints 01/13 labs noted, no bleeding, is on vent/trach, no bleeding, dw rn, labs are noted 01/14 labs are noted, no bleeding, remains on v/t, remains agitated, no bleeding 01/15 is c.diff positive, wbc higher at 21k, labs noted, on abx, reviewed gi, id recs Objective Objective Current Medications Medications (Trade) Dose Ordered Sig/Villa Route PRN Reason Start Time Stop Time Status Last Admin Dose Admin Acetaminophen (Tylenol) 650 mg Q6H PRN GT Temp >100.5 01/01/20 11:00 01/31/20 10:59 01/15/20 08:18 Ascorbic Acid (Vitamin C) 500 mg DAILY ORAL 01/01/20 09:00 01/31/20 08:59 01/15/20 08:19 Dopamine HCl/ Dextrose 250 ml @ 6.974 mls/ hr Q24H IV 01/13/20 19:00 04/12/20 18:59 01/15/20 05:31 Famotidine (Pepcid) 20 mg BID ORAL 01/10/20 18:00 04/09/20 17:59 01/15/20 17:48 Fluconazole (Diflucan) 100 mg DAILY GT 01/15/20 11:00 01/22/20 10:59 01/15/20 12:14 Gabapentin (Neurontin) 600 mg TID GT 01/08/20 13:00 02/07/20 12:59 01/15/20 17:48 Haloperidol Lactate (Haldol) 5 mg Q6H PRN IM Agitation 01/01/20 23:30 02/15/20 23:29 01/14/20 02:25 Levetiracetam (Keppra) 1,500 mg Q12HR GT 01/07/20 21:00 02/07/20 08:59 01/15/20 20:42 Levothyroxine Sodium (Synthroid) 75 mcg DAILY ORAL 01/01/20 09:00 01/31/20 08:59 01/15/20 08:19 Metronidazole (Flagyl) 500 mg Q8HR ORAL 01/16/20 14:00 01/23/20 13:59 Midodrine (Pro-Amatine) 2.5 mg THREE TIMES A DAY ORAL 01/07/20 09:00 04/06/20 08:59 01/15/20 17:48 Multivitamins Therapeutic (Therapeutic Multivitamin) 1 ea DAILY ORAL 01/01/20 09:00 01/31/20 08:59 01/15/20 08:18 Ondansetron HCl (Zofran) 4 mg Q6H PRN ORAL Nausea & Vomiting 12/31/19 21:00 01/30/20 20:59 Oxcarbazepine (TrileptaL) 300 mg BEDTIME ORAL 01/10/20 21:00 02/07/20 20:59 01/15/20 20:42 Potassium Chloride (K-Dur) 20 meq TWICE A DAY GT 01/11/20 09:00 04/10/20 08:59 01/15/20 17:48 Thiamine HCl (Vitamin B1) 100 mg DAILY ORAL 01/01/20 09:00 01/31/20 08:59 01/15/20 08:18 Vancomycin HCl (Firvanq) 125 mg FOUR TIMES A DAY ORAL 01/10/20 13:00 01/17/20 23:59 01/15/20 20:42 Last 24 Hour Vital Signs Date Time Temp Pulse Resp B/P (MAP) Pulse Ox O2 Delivery O2 Flow Rate FiO2 01/16/20 06:45 87 31 30 01/16/20 05:30 75 25 30 01/16/20 03:48 71 01/16/20 03:35 30 01/16/20 03:06 72 33 30 01/16/20 00:39 66 30 30 01/16/20 00:00 30 01/16/20 00:00 Mechanical Ventilator 01/16/20 00:00 72 01/16/20 00:00 98.2 79 15 98/54 (69) 98 01/15/20 23:15 72 27 30 01/15/20 21:03 81 25 30 01/15/20 20:00 30 01/15/20 20:00 98.5 70 14 106/56 (73) 98 01/15/20 20:00 72 01/15/20 20:00 Mechanical Ventilator 01/15/20 18:56 73 24 30 01/15/20 17:03 68 26 30 01/15/20 16:00 Mechanical Ventilator 01/15/20 16:00 30 01/15/20 16:00 98.2 64 14 97/59 (72) 97 01/15/20 16:00 69 01/15/20 15:05 65 28 30 01/15/20 12:44 54 20 30 01/15/20 12:00 97.7 54 16 92/48 (63) 100 01/15/20 12:00 30 01/15/20 12:00 92/48 01/15/20 12:00 Mechanical Ventilator 01/15/20 11:31 48 01/15/20 10:55 51 20 30 01/15/20 09:24 73 27 30 01/15/20 09:22 100 01/15/20 08:48 98.0 01/15/20 08:00 99.0 93 14 125/58 (80) 99 01/15/20 08:00 125/58 01/15/20 08:00 95 01/15/20 08:00 Mechanical Ventilator 01/15/20 08:00 30 01/15/20 07:01 89 29 30 01/15/20 05:31 119/64 01/15/20 05:15 92 29 30 01/15/20 04:00 Mechanical Ventilator 01/15/20 04:00 90 01/15/20 04:00 98.9 88 20 119/64 (82) 98 01/15/20 04:00 30 01/15/20 02:50 97 34 30 01/15/20 00:55 85 32 30 01/15/20 00:00 Mechanical Ventilator 01/15/20 00:00 98.7 100 30 96/67 (77) 97 01/15/20 00:00 30 01/14/20 23:50 100 01/14/20 23:18 101 30 30 01/14/20 20:57 95/72 01/14/20 20:50 98 33 30 01/14/20 20:00 Mechanical Ventilator 01/14/20 20:00 99.0 103 30 95/12 (39) 95 01/14/20 19:31 105 01/14/20 19:19 104 32 30 01/14/20 17:00 113 35 30 01/14/20 16:00 Mechanical Ventilator 01/14/20 16:00 98.1 107 35 117/71 (86) 94 01/14/20 16:00 30 01/14/20 15:20 116 01/14/20 15:10 121 33 30 01/14/20 13:10 91 32 30 01/14/20 12:00 105/51 01/14/20 12:00 Mechanical Ventilator 01/14/20 12:00 30 01/14/20 12:00 99.0 107 33 105/51 (69) 94 01/14/20 11:42 94 01/14/20 11:10 90 30 30 01/14/20 10:20 100 01/14/20 09:10 109 28 30 01/14/20 08:15 85 28 30 01/14/20 08:00 114/57 01/14/20 08:00 98.2 87 25 114/57 (76) 95 01/14/20 08:00 30 01/14/20 08:00 Mechanical Ventilator 01/14/20 07:49 85 Intake and Output 01/15/20 01/16/20 19:00 07:00 Intake Total 933.688 ml 700.792 ml Output Total 500 ml Balance 433.688 ml 700.792 ml Intake Free Water 300 ml 150 ml IV Total 83.688 ml 55.792 ml Tube Feeding 550 ml 495 ml Output Urine Total 300 ml Stool Total 200 ml # Bowel Movements 1 Labs Test 01/13/20 13:10 01/14/20 04:38 01/15/20 03:26 01/15/20 03:32 Urine Color Yellow Urine Appearance Cloudy Urine pH 7 (4.5-8.0) Urine Specific [place] 1.010 (1.005-1.035) Urine Protein 2+ (NEGATIVE) Urine Glucose (UA) Negative (NEGATIVE) Urine Ketones Negative (NEGATIVE) Urine Blood 4+ (NEGATIVE) Urine Nitrite Negative (NEGATIVE) Urine Bilirubin Negative (NEGATIVE) Urine Urobilinogen Normal MG/DL (0.0-1.0) Urine Leukocyte Esterase 3+ (NEGATIVE) Urine RBC 15-20 /HPF (0 - 2) Urine WBC Tntc /HPF (0 - 2) Urine Squamous Epithelial Cells Moderate /LPF (NONE/OCC) Urine Bacteria Few /HPF (NONE) Urine Yeast Many /HPF (NONE) White Blood Count 12.4 K/UL (4.8-10.8) 20.4 K/UL (4.8-10.8) Red Blood Count 3.43 M/UL (4.20-5.40) 3.64 M/UL (4.20-5.40) Hemoglobin 10.4 G/DL (12.0-16.0) 11.2 G/DL (12.0-16.0) Hematocrit 33.6 % (37.0-47.0) 34.8 % (37.0-47.0) Mean Corpuscular Volume 98 FL (80-99) 95 FL (80-99) Mean Corpuscular Hemoglobin 30.3 PG (27.0-31.0) 30.7 PG (27.0-31.0) Mean Corpuscular Hemoglobin Concent 31.0 G/DL (32.0-36.0) 32.2 G/DL (32.0-36.0) Red Cell Distribution Width 16.4 % (11.6-14.8) 16.2 % (11.6-14.8) Platelet Count 338 K/UL (150-450) 354 K/UL (150-450) Mean Platelet Volume 6.8 FL (6.5-10.1) 6.3 FL (6.5-10.1) Neutrophils (%) (Auto) 72.1 % (45.0-75.0) % (45.0-75.0) Lymphocytes (%) (Auto) 14.0 % (20.0-45.0) % (20.0-45.0) Monocytes (%) (Auto) 5.7 % (1.0-10.0) % (1.0-10.0) Eosinophils (%) (Auto) 7.6 % (0.0-3.0) % (0.0-3.0) Basophils (%) (Auto) 0.6 % (0.0-2.0) % (0.0-2.0) Erythrocyte Sedimentation Rate 42 MM/HR (0-20) Sodium Level 139 MMOL/L (136-145) 140 MMOL/L (136-145) Potassium Level 4.1 MMOL/L (3.5-5.1) 4.4 MMOL/L (3.5-5.1) Chloride Level 104 MMOL/L (98-107) 103 MMOL/L (98-107) Carbon Dioxide Level 30 MMOL/L (21-32) 30 MMOL/L (21-32) Anion Gap 5 mmol/L (5-15) 7 mmol/L (5-15) Blood Urea Nitrogen 10 mg/dL (7-18) 15 mg/dL (7-18) Creatinine 0.5 MG/DL (0.55-1.30) 0.5 MG/DL (0.55-1.30) Estimat Glomerular Filtration Rate > 60 mL/min (>60) > 60 mL/min (>60) Glucose Level 80 MG/DL (74-106) 67 MG/DL (74-106) Calcium Level 9.0 MG/DL (8.5-10.1) 9.6 MG/DL (8.5-10.1) Total Bilirubin 0.2 MG/DL (0.2-1.0) Aspartate Amino Transf (AST/SGOT) 35 U/L (15-37) Alanine Aminotransferase (ALT/SGPT) 45 U/L (12-78) Alkaline Phosphatase 125 U/L (46-116) C-Reactive Protein, Quantitative 0.7 mg/dL (0.00-0.90) Total Protein 7.5 G/DL (6.4-8.2) Albumin 3.1 G/DL (3.4-5.0) Globulin 4.4 g/dL Albumin/Globulin Ratio 0.7 (1.0-2.7) Differential Total Cells Counted 100 Neutrophils % (Manual) 80 % (45-75) Lymphocytes % (Manual) 7 % (20-45) Monocytes % (Manual) 6 % (1-10) Eosinophils % (Manual) 6 % (0-3) Basophils % (Manual) 1 % (0-2) Band Neutrophils 0 % (0-8) Platelet Estimate Adequate Platelet Morphology Normal Hypochromasia 1+ Anisocytosis 1+ Magnesium Level 1.9 MG/DL (1.8-2.4) Test 01/15/20 08:04 01/15/20 11:09 01/15/20 16:48 01/15/20 22:00 Arterial Blood pH 7.446 (7.350-7.450) Arterial Blood Partial Pressure CO2 36.5 mmHg (35.0-45.0) Arterial Blood Partial Pressure O2 84.9 mmHg (75.0-100.0) Arterial Blood HCO3 24.6 mmol/L (22.0-26.0) Arterial Blood Oxygen Saturation 96.5 % (95-100) Arterial Blood Base Excess 0.7 (-2-2) Tacos Test Positive POC Whole Blood Glucose 97 MG/DL (74-106) Test 01/16/20 03:30 01/16/20 06:40 White Blood Count 20.6 K/UL (4.8-10.8) Red Blood Count 3.59 M/UL (4.20-5.40) Hemoglobin 11.1 G/DL (12.0-16.0) Hematocrit 35.5 % (37.0-47.0) Mean Corpuscular Volume 99 FL (80-99) Mean Corpuscular Hemoglobin 31.1 PG (27.0-31.0) Mean Corpuscular Hemoglobin Concent 31.4 G/DL (32.0-36.0) Red Cell Distribution Width 16.2 % (11.6-14.8) Platelet Count 355 K/UL (150-450) Mean Platelet Volume 5.8 FL (6.5-10.1) Neutrophils (%) (Auto) % (45.0-75.0) Lymphocytes (%) (Auto) % (20.0-45.0) Monocytes (%) (Auto) % (1.0-10.0) Eosinophils (%) (Auto) % (0.0-3.0) Basophils (%) (Auto) % (0.0-2.0) POC Whole Blood Glucose 90 MG/DL (74-106) Height (Feet): 5 Height (Inches): 1.00 Weight (Pounds): 80 Objective Vital Signs General Appearance: ++ cachectic, chronically ill HEENT: normocephalic, atraumatic ++ trach Resp: other -. vent ++ Cardiovascular: regular rate, rhythm, no edema Gastrointestinal: gtube in place, without erythema Rectal: other - Hemoccult positive [place]: back normal, gait/station normal, non-tender Lymphatic: no adenopathy Baltazar Cortes MD Jan 16, 2020 07:21
[2020-01-16 08:00] VITALS: BP 91/64
[2020-01-16] MEDS: levETIRAcetam 500mg/5ml Liquid GT SCH ×2 (08:20→20:11)
[2020-01-16] MEDS: Fluconazole 100mg tab GT SCH (08:20)
[2020-01-16] MEDS: Thiamine 100mg tab ORAL SCH (08:20)
[2020-01-16] MEDS: Vancomycin oral 125mg/2.5ml ORAL SCH ×2 (08:21→12:20)
[2020-01-16] MEDS: Gabapentin 300 MG/6 ML Soln GT SCH ×3 (08:21→17:20)
[2020-01-16] MEDS: Ascorbic Acid 500mg tab ORAL SCH (08:21)
[2020-01-16] MEDS: Multivitamin w/Minerals tab ORAL SCH (08:21)
[2020-01-16] MEDS: DOPamine 400mg/250ml 250 ML IV SCH (09:39)
[2020-01-16 09:48] LABS: ANION GAP 7 mmol/L (5-15); BLOOD UREA NITROGEN 23 mg/dL (7-18); CARBON DIOXIDE 29 MMOL/L (21-32); CHLORIDE 100 MMOL/L (98-107); CREATININE 0.4 MG/DL (0.55-1.30); POTASSIUM 4.8 MMOL/L (3.5-5.1); SODIUM 136 MMOL/L (136-145)
[2020-01-16 09:52] LABS: ALANINE AMINOTRANSFERASE 31 U/L (12-78); ALBUMIN 3.1 G/DL (3.4-5.0); ALBUMIN/GLOBULIN RATIO 0.6 (1.0-2.7); ALKALINE PHOSPHATASE 121 U/L (46-116); ASPARTATE AMINO TRANSFERASE 25 U/L (15-37); BILIRUBIN,TOTAL 0.4 MG/DL (0.2-1.0)
--- NOTE | 2020-01-16 10:32 | Pulmonology Progress Note ---
Ivanna Mora CERTIFIED REHABILITATION COUNSELOR 01/16/20 1032: Subjective ROS Limited/Unobtainable: No Allergies: Coded Allergies: CARBAMAZEPINE (Verified Allergy, Unknown, 12/31/19) LORAZEPAM (Verified Allergy, Unknown, 12/31/19) All Systems: reviewed and negative except above Subjective leukocytosis still in 20 this am, no fevers tachypneic at times ABG stable on current settings BP better with Dopamine gtt CXR 01/13 no acute findings KUB 01/13 no acute findings stool C dif + 01/07 on po Vanco Objective Last 24 Hour Vital Signs Date Time Temp Pulse Resp B/P (MAP) Pulse Ox O2 Delivery O2 Flow Rate FiO2 01/16/20 09:39 94/61 01/16/20 09:10 100 01/16/20 08:00 Mechanical Ventilator 01/16/20 08:00 30 01/16/20 07:51 75 01/16/20 07:00 98.0 82 17 104/60 (75) 98 01/16/20 06:45 87 31 30 01/16/20 05:30 75 25 30 01/16/20 04:00 Mechanical Ventilator 01/16/20 03:48 71 01/16/20 03:35 30 01/16/20 03:06 72 33 30 01/16/20 00:39 66 30 30 01/16/20 00:00 30 01/16/20 00:00 Mechanical Ventilator 01/16/20 00:00 72 01/16/20 00:00 98.2 79 15 98/54 (69) 98 01/15/20 23:15 72 27 30 01/15/20 21:03 81 25 30 01/15/20 20:00 30 01/15/20 20:00 98.5 70 14 106/56 (73) 98 01/15/20 20:00 72 01/15/20 20:00 Mechanical Ventilator 01/15/20 18:56 73 24 30 01/15/20 17:03 68 26 30 01/15/20 16:00 Mechanical Ventilator 01/15/20 16:00 30 01/15/20 16:00 98.2 64 14 97/59 (72) 97 01/15/20 16:00 69 01/15/20 15:05 65 28 30 01/15/20 12:44 54 20 30 8/31/20 12:00 97.7 54 16 92/48 (63) 100 01/15/20 12:00 30 01/15/20 12:00 92/48 01/15/20 12:00 Mechanical Ventilator 01/15/20 11:31 48 01/15/20 10:55 51 20 30 Intake and Output 01/15/20 01/16/20 19:00 07:00 Intake Total 933.688 ml 1036.714 ml Output Total 500 ml 400 ml Balance 433.688 ml 636.714 ml Intake Free Water 300 ml 300 ml IV Total 83.688 ml 76.714 ml Tube Feeding 550 ml 660 ml Output Urine Total 300 ml 300 ml Stool Total 200 ml 100 ml # Bowel Movements 1 Objective General Appearance: bedridden, pale, chronically ill looking, older than her biological age ; vent dependent female ; on vent SIMV 450-30%-12, PEEP 5 Lines, tubes and drains: peripheral, trach HEENT: normocephalic, atraumatic Neck: trach - Portex #7, secretions small amount, yellow color, thin consistency Respiratory/Chest: CTAB Cardiovascular/Chest: regular rate, regular rhythm Abdomen: non tender, soft, G tube Genitourinary/Rectal: [place] Extremities: no edema, muscle atrophy Neurologic: abnormal gait, poorly responsive, more awake , eyes open Musculoskeletal: atrophy BLE Skin: multiple tattoos Microbiology Date/Time Source Procedure Growth Status 01/13/20 11:30 Blood Blood Culture - Preliminary NO GROWTH AFTER 48 HOURS Resulted 01/13/20 11:20 Blood Blood Culture - Preliminary NO GROWTH AFTER 48 HOURS Resulted 01/13/20 13:10 Urine,Clean Catch Urine Culture - Final Fabienne Tropicalis Complete Laboratory Tests 01/15/20 11:09: POC Whole Blood Glucose 97 01/15/20 16:48: POC Whole Blood Glucose [Pending] 01/15/20 22:00: POC Whole Blood Glucose [Pending] 01/16/20 03:30: White Blood Count 20.6H, Red Blood Count 3.59L, Hemoglobin 11.1L, Hematocrit 35.5L, Mean Corpuscular Volume 99, Mean Corpuscular Hemoglobin 31.1H, Mean Corpuscular Hemoglobin Concent 31.4L, Red Cell Distribution Width 16.2H, Platelet Count 355, Mean Platelet Volume 5.8L, Neutrophils (%) (Auto) , Lymphocytes (%) (Auto) , Monocytes (%) (Auto) , Eosinophils (%) (Auto) , Basophils (%) (Auto) , Differential Total Cells Counted 100, Neutrophils % ( Manual) 67, Lymphocytes % (Manual) 17L, Monocytes % (Manual) 3, Eosinophils % ( Manual) 5H, Basophils % (Manual) 0, Band Neutrophils 8, Platelet Estimate Adequate, Platelet Morphology Normal, Hypochromasia 1+, Anisocytosis 1+, Macrocytosis 1+ 01/16/20 06:40: POC Whole Blood Glucose 90 01/16/20 08:55: Sodium Level 136, Potassium Level 4.8, Chloride Level 100, Carbon Dioxide Level 29, Anion Gap 7, Blood Urea Nitrogen 23H, Creatinine 0.4L, Estimat Glomerular Filtration Rate > 60, Glucose Level 100, Calcium Level 10.0, Total Bilirubin 0.4 , Aspartate Amino Transf (AST/SGOT) 25, Alanine Aminotransferase (ALT/SGPT) 31, Alkaline Phosphatase 121H, Total Protein 7.9, Albumin 3.1L, Globulin 4.8, Albumin/Globulin Ratio 0.6L Current Medications Medications (Trade) Dose Ordered Sig/Villa Route PRN Reason Start Time Stop Time Status Last Admin Dose Admin Acetaminophen (Tylenol) 650 mg Q6H PRN GT Temp >100.5 01/01/20 11:00 01/31/20 10:59 01/15/20 08:18 Ascorbic Acid (Vitamin C) 500 mg DAILY ORAL 01/01/20 09:00 01/31/20 08:59 01/16/20 08:21 Dopamine HCl/ Dextrose 250 ml @ 6.974 mls/ hr Q24H IV 01/13/20 19:00 04/12/20 18:59 01/16/20 09:39 Famotidine (Pepcid) 20 mg BID ORAL 01/10/20 18:00 04/09/20 17:59 01/16/20 08:21 Fluconazole (Diflucan) 100 mg DAILY GT 01/15/20 11:00 01/22/20 10:59 01/16/20 08:20 Gabapentin (Neurontin) 600 mg TID GT 01/08/20 13:00 02/07/20 12:59 01/16/20 08:21 Haloperidol Lactate (Haldol) 5 mg Q6H PRN IM Agitation 01/01/20 23:30 02/15/20 23:29 01/14/20 02:25 Levetiracetam (Keppra) 1,500 mg Q12HR GT 01/07/20 21:00 02/07/20 08:59 01/16/20 08:20 Levothyroxine Sodium (Synthroid) 75 mcg DAILY ORAL 01/01/20 09:00 01/31/20 08:59 01/16/20 08:21 Metronidazole (Flagyl) 500 mg Q8HR ORAL 01/16/20 14:00 01/23/20 13:59 Midodrine (Pro-Amatine) 2.5 mg THREE TIMES A DAY ORAL 01/07/20 09:00 04/06/20 08:59 01/16/20 08:20 Multivitamins Therapeutic (Therapeutic Multivitamin) 1 ea DAILY ORAL 01/01/20 09:00 01/31/20 08:59 01/16/20 08:21 Ondansetron HCl (Zofran) 4 mg Q6H PRN ORAL Nausea & Vomiting 12/31/19 21:00 01/30/20 20:59 Oxcarbazepine (TrileptaL) 300 mg BEDTIME ORAL 01/10/20 21:00 02/07/20 20:59 01/15/20 20:42 Potassium Chloride (K-Dur) 20 meq TWICE A DAY GT 01/11/20 09:00 04/10/20 08:59 01/16/20 08:22 Thiamine HCl (Vitamin B1) 100 mg DAILY ORAL 01/01/20 09:00 01/31/20 08:59 01/16/20 08:20 Vancomycin HCl (Firvanq) 125 mg FOUR TIMES A DAY ORAL 01/10/20 13:00 01/18/20 23:59 01/16/20 08:21 Assessment/Plan Assessment/Plan ASSESSMENT VDRF/trach status Sepsis Possible pneumonia UTI recurrent GI bleeding C dif colitis Anemia secondary to GI bleeding Aspiration risk Dysphagia, feeding by G-tube Encephalopathy Acute kidney injury likely secondary to dehydration Bradycardia Hypotension Electrolyte imbalance Severe protein calorie malnutrition Hx of hypertension History of CVA Seizure disorder with witnessed seizure episode 01/07 Psychiatric disorder Presumed scabies, s/p Rx Thrombocytopenia-transient- resolved PLAN OF CARE JULIANA vent support, pulm toilet ABG stable on current settings, on SIMV mode 450-30-12 PEEP5 , no signs of resp distress on these settings keep settings as is and titrate as needed now tachypneic intermittently ABG repeated this am 01/14 due to tachypnea- remains stable CXR 01/13 stable pulm toilet via HHN Theophylline level was high -25; ->was dc prior leuk trending up , no fevers, possibly due to C dif pancx-per ID CXR 01/13- no acute findings KUB 01/13- no acute findings UA + yeast , 01/12 UCX +yeast, started on Fluconazole 01/14 as per ID BCX 01/12 NGTD abx as per ID recs inflammatory markers : ESR-42, CRP- wnl prior BCX 05/18 +CONS likely contaminant, off Vanco ; repeated BCX 01/01 and 01/02 NGTD SCX + Proteus , was on Ceftriaxone as per ID recs for poss SBP in setting of GI bleeding - completed BCX 01/01 and 01/02 NGTD stool C dif 01/07 +, on oral vanco rapid COVID 19 NGT in ED aspiration precautions Venous Duplex BLE -negative, get SCD ( unable to give a/c given anemia) closely monitor hemodynamic status Protonix IV GT feeding stool OB positive transfuse to keep Hgb > 7. heme and GI follows s/p EGD 01/01 -> gastric ulcer across G tube site , no active bleeding HH at baseline monitor for any further episodes of Gi bleeding trend LFT-> trended down, hep panel NGT hx of cirrhosis- per GI management hypotension-> Midodrine, s/p IV fluids, on Dopamine gtt bradycardia -> Midodrine dose decreased and prior Theophylline was started by primary but dc due to increased level cardio follows HR better monitor renal parameters, lytes, avoid nephrotoxic BUN trending down, creat stable, likely prerenal due to dehydration replace e/lytes as per nephro recs monitor volumes seizure precautions, antiepileptic optimized as per neuro recs ammonia 49, fup with further neuro recs EEG - grossly abnormal; mild to mod encephalopathy, single ictal episode CT head no acute IC pathology BP management with current regimen SNF meds supportive care dietary recs s/p 12/31 Rx for presumed scabies with permethrin and Ivermectin, repeated Ivermectin 01/08 case discussed and evaluated by supervising physician Raul Esparza MD 01/16/20 1757: Subjective Allergies: Coded Allergies: CARBAMAZEPINE (Verified Allergy, Unknown, 12/31/19) LORAZEPAM (Verified Allergy, Unknown, 12/31/19) Assessment/Plan Assessment/Plan Patient seen and examined with CERTIFIED REHABILITATION COUNSELOR. Agree with above A&P as it reflects our joint deliberations. Ivanna Mora NP Jan 16, 2020 10:32 Raul Esparza MD Jan 16, 2020 17:57
[2020-01-16 12:00] VITALS: BP 104/67
[2020-01-16] MEDS: metroNIDAZOLE 500mg tab ORAL SCH ×2 (13:45→21:27)
--- NOTE | 2020-01-16 14:03 | Surgery Progress Note ---
Surgery Progress Note Subjective Additional Comments no acute events comfortable labs reviewed exam stable Objective Last 24 Hour Vital Signs Date Time Temp Pulse Resp B/P (MAP) Pulse Ox O2 Delivery O2 Flow Rate FiO2 01/16/20 13:10 67 32 30 01/16/20 12:00 Mechanical Ventilator 01/16/20 12:00 82 01/16/20 12:00 97.8 71 17 104/67 (79) 100 01/16/20 12:00 30 01/16/20 10:50 78 20 30 01/16/20 09:39 94/61 01/16/20 09:15 63 29 30 01/16/20 09:10 100 01/16/20 08:00 98.1 79 18 91/64 (73) 100 01/16/20 08:00 Mechanical Ventilator 01/16/20 08:00 30 01/16/20 07:51 75 01/16/20 07:00 98.0 82 17 104/60 (75) 98 01/16/20 06:45 87 31 30 01/16/20 05:30 75 25 30 01/16/20 04:00 Mechanical Ventilator 01/16/20 03:48 71 01/16/20 03:35 30 01/16/20 03:06 72 33 30 01/16/20 00:39 66 30 30 01/16/20 00:00 30 01/16/20 00:00 Mechanical Ventilator 01/16/20 00:00 72 01/16/20 00:00 98.2 79 15 98/54 (69) 98 01/15/20 23:15 72 27 30 01/15/20 21:03 81 25 30 01/15/20 20:00 30 01/15/20 20:00 98.5 70 14 106/56 (73) 98 01/15/20 20:00 72 01/15/20 20:00 Mechanical Ventilator 01/15/20 18:56 73 24 30 01/15/20 17:03 68 26 30 01/15/20 16:00 Mechanical Ventilator 01/15/20 16:00 30 01/15/20 16:00 98.2 64 14 97/59 (72) 97 01/15/20 16:00 69 01/15/20 15:05 65 28 30 I&O Intake and Output 01/15/20 01/16/20 19:00 07:00 Intake Total 933.688 ml 1036.714 ml Output Total 500 ml 400 ml Balance 433.688 ml 636.714 ml Intake Free Water 300 ml 300 ml IV Total 83.688 ml 76.714 ml Tube Feeding 550 ml 660 ml Output Urine Total 300 ml 300 ml Stool Total 200 ml 100 ml # Bowel Movements 1 Laboratory Tests Test 01/15/20 16:48 01/15/20 22:00 01/16/20 03:30 01/16/20 06:40 POC Whole Blood Glucose Pending Pending 90 MG/DL (74-106) White Blood Count 20.6 K/UL (4.8-10.8) H Red Blood Count 3.59 M/UL (4.20-5.40) L Hemoglobin 11.1 G/DL (12.0-16.0) L Hematocrit 35.5 % (37.0-47.0) L Mean Corpuscular Volume 99 FL (80-99) Mean Corpuscular Hemoglobin 31.1 PG (27.0-31.0) H Mean Corpuscular Hemoglobin Concent 31.4 G/DL (32.0-36.0) L Red Cell Distribution Width 16.2 % (11.6-14.8) H Platelet Count 355 K/UL (150-450) Mean Platelet Volume 5.8 FL (6.5-10.1) L Neutrophils (%) (Auto) % (45.0-75.0) Lymphocytes (%) (Auto) % (20.0-45.0) Monocytes (%) (Auto) % (1.0-10.0) Eosinophils (%) (Auto) % (0.0-3.0) Basophils (%) (Auto) % (0.0-2.0) Differential Total Cells Counted 100 Neutrophils % (Manual) 67 % (45-75) Lymphocytes % (Manual) 17 % (20-45) L Monocytes % (Manual) 3 % (1-10) Eosinophils % (Manual) 5 % (0-3) H Basophils % (Manual) 0 % (0-2) Band Neutrophils 8 % (0-8) Platelet Estimate Adequate Platelet Morphology Normal Hypochromasia 1+ Anisocytosis 1+ Macrocytosis 1+ Test 01/16/20 08:55 01/16/20 11:21 Sodium Level 136 MMOL/L (136-145) Potassium Level 4.8 MMOL/L (3.5-5.1) Chloride Level 100 MMOL/L (98-107) Carbon Dioxide Level 29 MMOL/L (21-32) Anion Gap 7 mmol/L (5-15) Blood Urea Nitrogen 23 mg/dL (7-18) H Creatinine 0.4 MG/DL (0.55-1.30) L Estimat Glomerular Filtration Rate > 60 mL/min (>60) Glucose Level 100 MG/DL (74-106) Calcium Level 10.0 MG/DL (8.5-10.1) Total Bilirubin 0.4 MG/DL (0.2-1.0) Aspartate Amino Transf (AST/SGOT) 25 U/L (15-37) Alanine Aminotransferase (ALT/SGPT) 31 U/L (12-78) Alkaline Phosphatase 121 U/L (46-116) H Total Protein 7.9 G/DL (6.4-8.2) Albumin 3.1 G/DL (3.4-5.0) L Globulin 4.8 g/dL Albumin/Globulin Ratio 0.6 (1.0-2.7) L POC Whole Blood Glucose 100 MG/DL (74-106) Plan Problems: (1) Pneumonia (2) Sepsis Assessment & Plan: leukocytosis anemia lactic acidosis agree with GI recommend EGD planned for 12/31 hold feeding for now trend h/h monitor for bleeding no acute hemorrhage will be available in event needs exploration for hemostasis prbc as per heme thank you will follow with recs cont abx worsening wbc Pt presented on admission in emaciated state. Pt has tracheostomy and GT. NO skin concerns noted to skin under collar of trach. NO erythema or evidence of skin erosion at GT site. Pt noted to have scaly pimple-like rash with webbing noted to R and L axillae, undersides of both breasts, Bilat groin and lower back. Tracking and webbing noted to hands and feet. Pt restless and scratching at skin. Non-Blanching erythema without induration or fluctuance noted to R and L hips and trochanteric areas.Non-blanching erythema noted along spine. Non-Blanching erythema without induration noted to Sacrum. Non-Blanching erythema noted to R and L Malleoli and both heels. Tx.Plan: Please apply Cavilon Skin Barrier to each bony Prominences at risks for Skin Breakdown. Cover each area with Optifoam drsgs. Change every 7 days and prn. Apply Moisture Barrier Paste to Sacrum. Cover with Optifoam drsg. Change every 3 days and prn. Reposition at least every 2hours or as tolerated. Off-load heels with pillow. APM/EMELI Mattress overlay. improving cont current care plan There is marked enlargement of the third and lateral ventricles and extra axial CSF spaces, in particular the former. There is considerable periventricular deep white matter low-attenuation. Otherwise normal mobley-white differentiation. No acute hemorrhage or edema. No mass effect nor midline shift. Visualized orbits and sinuses are unremarkable. The calvarium is intact Impression: Third and lateral ventriculomegaly. Associated enlargement of the extra axial CSF spaces indicates that this is probably due to central volume loss, but the possibility of hydrocephalus should also be considered. At the degree of volume loss is considerably out of proportion to patient's age. Correlate with clinical history Periventricular deep white matter low-attenuation. Probably on the basis of microvascular ischemic change but given patient's age the possibility of demyelinating disease should be considered as well. Negative for acute intracranial bleed or mass effect (3) GI bleed (4) G tube feedings Assessment & Plan: DAILY ESTIMATED NEEDS: Needs based on Underweight, critical care 37.3kg 30-40 kcals/kg 7866-8887 total kcals 1.25-2 g protein/kg 47-75 g total protein 25-35 mL/kg 933-1306 total fluid mLs NUTRITION DIAGNOSIS: Increased kcal and pro needs r/t underweight status as evidenced by BMI 14.1, pt is 68% of ideal body weight w/ generalized severe wasting, trach and peg dep. CURRENT TF:Vital AF 1.2 @55 x20 hrs ENTERAL NUTRITION RECOMMENDATIONS: Vital AF 1.2 @ 55ml/hr x20 hrs to provide 1100ml 1320kcal 83g prot, 892ml free water - Rec to continue elemental TF formula while stool C-diff positive, +LBM - HOLD 1HR BEFORE AND AFTER SYNTHROID MEDS - Flush per MD. HOB over 30 degrees ADDITIONAL RECOMMENDATIONS: 1) Per SNF: 5'4" and 81# Maintain calibrated bed scale wts w/ added P200 mattress 2) Lytes daily madhav w/ loose stools, replete as needed 3) Skin integrity: Continue BRIAN VIA GT BID + Vit C 4) Accuchecks for Hypoglycemia 5) Add probiotics for stool C-diff+ . George [place] Jan 16, 2020 14:03
--- NOTE | 2020-01-16 14:30 | Infectious Diseases Prog Note ---
Assessment/Plan 39yo F with: Sepsis Fever to 101.5>>Low grade ; SP Possible pna on CXR Leukocytosis; recurrent; increased -01/13 CXR: no acute disease -01/12 u/a wbc tnct, nit neg, latrell +3; ucx >100k C. tropicalis Bcx NTD Cdiff colitis -Cdif toxin + -01/13 KUB: no acute findings Recurrent GIB 01/06 u/aneg 12/30 BCx 1/2 +CONS, likely contaminant 12/30 UA neg, COVID rapid Ag neg 12/30 CXR 1. Density overlying the bilateral lung apices. May represent pleural thickening, multifocal airspace opacities, versus summation artifact. 01/01 BCx Neg 01/02 BCx Neg Seizure episode -01/10 CT head: Third and lateral ventriculomegaly. Associated enlargement of the extra axial CSF spaces indicates that this is probably due to central volume loss, but the possibility of hydrocephalus should also be considered. At the degree of volume loss is considerably out of proportion to patient's age. Periventricular deep white matter low-attenuation. Probably on the basis of microvascular ischemic change but given patient's age the possibility of demyelinating disease should be considered as well. Negative for acute intracranial bleed or mass effect Possible Scabies SP tx w/ Permethrin and Ivermectin 12/31 R/o DVT: None on US 12/30 MRSA nares neg Recurrent GIBs, FOBT+ Hepatic encephalopathy, chronic S/p Trach/PEG Resides at SNF Plan: Switch PO Vancomycin 125mg PO QID #8 to PO Dificid as failing PO Vancomycin Cont PO fluconazole #1/5 for significant pyuria and leukocytosis Noted FLagyl #1 per GI 01/08 SP Ceftriaxone #7 01/02 SP vanco #2, Zosyn #2 SP 2nd dose of ivermectin (01/08) Monitor CBC/CMP Monitor resp status Monitor temp and hemodynamics contact isolation f/u repeat cultures D/w RN Thank you for this consult. [facility] will continue to follow. Subjective Allergies: Coded Allergies: CARBAMAZEPINE (Verified Allergy, Unknown, 12/31/19) LORAZEPAM (Verified Allergy, Unknown, 12/31/19) afebrile wbc remains at 20 Bcx NTD Objective Last 24 Hour Vital Signs Date Time Temp Pulse Resp B/P (MAP) Pulse Ox O2 Delivery O2 Flow Rate FiO2 01/16/20 13:10 67 32 30 01/16/20 12:00 Mechanical Ventilator 01/16/20 12:00 82 01/16/20 12:00 97.8 71 17 104/67 (79) 100 01/16/20 12:00 30 01/16/20 10:50 78 20 30 01/16/20 09:39 94/61 01/16/20 09:15 63 29 30 01/16/20 09:10 100 01/16/20 08:00 98.1 79 18 91/64 (73) 100 01/16/20 08:00 Mechanical Ventilator 01/16/20 08:00 30 01/16/20 07:51 75 01/16/20 07:00 98.0 82 17 104/60 (75) 98 01/16/20 06:45 87 31 30 01/16/20 05:30 75 25 30 01/16/20 04:00 Mechanical Ventilator 01/16/20 03:48 71 01/16/20 03:35 30 01/16/20 03:06 72 33 30 01/16/20 00:39 66 30 30 01/16/20 00:00 30 01/16/20 00:00 Mechanical Ventilator 01/16/20 00:00 72 01/16/20 00:00 98.2 79 15 98/54 (69) 98 01/15/20 23:15 72 27 30 01/15/20 21:03 81 25 30 01/15/20 20:00 30 01/15/20 20:00 98.5 70 14 106/56 (73) 98 01/15/20 20:00 72 01/15/20 20:00 Mechanical Ventilator 01/15/20 18:56 73 24 30 01/15/20 17:03 68 26 30 01/15/20 16:00 Mechanical Ventilator 01/15/20 16:00 30 01/15/20 16:00 98.2 64 14 97/59 (72) 97 01/15/20 16:00 69 01/15/20 15:05 65 28 30 Height (Feet): 5 Height (Inches): 1.00 Weight (Pounds): 80 General Appearance: no apparent distress Neck: supple Cardiovascular: normal rate Respiratory/Chest: decreased breath sounds Abdomen: hypoactive bowel sounds Extremities: non-tender Laboratory Tests Test 01/15/20 16:48 8/31/20 22:00 01/16/20 03:30 01/16/20 06:40 POC Whole Blood Glucose Pending Pending 90 MG/DL (74-106) White Blood Count 20.6 K/UL (4.8-10.8) H Red Blood Count 3.59 M/UL (4.20-5.40) L Hemoglobin 11.1 G/DL (12.0-16.0) L Hematocrit 35.5 % (37.0-47.0) L Mean Corpuscular Volume 99 FL (80-99) Mean Corpuscular Hemoglobin 31.1 PG (27.0-31.0) H Mean Corpuscular Hemoglobin Concent 31.4 G/DL (32.0-36.0) L Red Cell Distribution Width 16.2 % (11.6-14.8) H Platelet Count 355 K/UL (150-450) Mean Platelet Volume 5.8 FL (6.5-10.1) L Neutrophils (%) (Auto) % (45.0-75.0) Lymphocytes (%) (Auto) % (20.0-45.0) Monocytes (%) (Auto) % (1.0-10.0) Eosinophils (%) (Auto) % (0.0-3.0) Basophils (%) (Auto) % (0.0-2.0) Differential Total Cells Counted 100 Neutrophils % (Manual) 67 % (45-75) Lymphocytes % (Manual) 17 % (20-45) L Monocytes % (Manual) 3 % (1-10) Eosinophils % (Manual) 5 % (0-3) H Basophils % (Manual) 0 % (0-2) Band Neutrophils 8 % (0-8) Platelet Estimate Adequate Platelet Morphology Normal Hypochromasia 1+ Anisocytosis 1+ Macrocytosis 1+ Test 01/16/20 08:55 01/16/20 11:21 Sodium Level 136 MMOL/L (136-145) Potassium Level 4.8 MMOL/L (3.5-5.1) Chloride Level 100 MMOL/L (98-107) Carbon Dioxide Level 29 MMOL/L (21-32) Anion Gap 7 mmol/L (5-15) Blood Urea Nitrogen 23 mg/dL (7-18) H Creatinine 0.4 MG/DL (0.55-1.30) L Estimat Glomerular Filtration Rate > 60 mL/min (>60) Glucose Level 100 MG/DL (74-106) Calcium Level 10.0 MG/DL (8.5-10.1) Total Bilirubin 0.4 MG/DL (0.2-1.0) Aspartate Amino Transf (AST/SGOT) 25 U/L (15-37) Alanine Aminotransferase (ALT/SGPT) 31 U/L (12-78) Alkaline Phosphatase 121 U/L (46-116) H Total Protein 7.9 G/DL (6.4-8.2) Albumin 3.1 G/DL (3.4-5.0) L Globulin 4.8 g/dL Albumin/Globulin Ratio 0.6 (1.0-2.7) L POC Whole Blood Glucose 100 MG/DL (74-106) Current Medications Medications (Trade) Dose Ordered Sig/Villa Route PRN Reason Start Time Stop Time Status Last Admin Dose Admin Acetaminophen (Tylenol) 650 mg Q6H PRN GT Temp >100.5 01/01/20 11:00 01/31/20 10:59 01/15/20 08:18 Ascorbic Acid (Vitamin C) 500 mg DAILY ORAL 01/01/20 09:00 01/31/20 08:59 01/16/20 08:21 Dopamine HCl/ Dextrose 250 ml @ 6.974 mls/ hr Q24H IV 01/13/20 19:00 04/12/20 18:59 01/16/20 09:39 Famotidine (Pepcid) 20 mg BID ORAL 01/10/20 18:00 04/09/20 17:59 01/16/20 08:21 Fluconazole (Diflucan) 100 mg DAILY GT 01/15/20 11:00 01/22/20 10:59 01/16/20 08:20 Gabapentin (Neurontin) 600 mg TID GT 01/08/20 13:00 02/07/20 12:59 01/16/20 12:20 Haloperidol Lactate (Haldol) 5 mg Q6H PRN IM Agitation 01/01/20 23:30 02/15/20 23:29 01/14/20 02:25 Levetiracetam (Keppra) 1,500 mg Q12HR GT 01/07/20 21:00 02/07/20 08:59 01/16/20 08:20 Levothyroxine Sodium (Synthroid) 75 mcg DAILY ORAL 01/01/20 09:00 01/31/20 08:59 01/16/20 08:21 Metronidazole (Flagyl) 500 mg Q8HR ORAL 01/16/20 14:00 01/23/20 13:59 01/16/20 13:45 Midodrine (Pro-Amatine) 2.5 mg THREE TIMES A DAY ORAL 01/07/20 09:00 04/06/20 08:59 01/16/20 12:20 Multivitamins Therapeutic (Therapeutic Multivitamin) 1 ea DAILY ORAL 01/01/20 09:00 01/31/20 08:59 01/16/20 08:21 Ondansetron HCl (Zofran) 4 mg Q6H PRN ORAL Nausea & Vomiting 12/31/19 21:00 01/30/20 20:59 Oxcarbazepine (TrileptaL) 300 mg BEDTIME ORAL 01/10/20 21:00 02/07/20 20:59 01/15/20 20:42 Potassium Chloride (K-Dur) 20 meq TWICE A DAY GT 01/11/20 09:00 04/10/20 08:59 01/16/20 08:22 Thiamine HCl (Vitamin B1) 100 mg DAILY ORAL 01/01/20 09:00 01/31/20 08:59 01/16/20 08:20 Vancomycin HCl (Firvanq) 125 mg FOUR TIMES A DAY ORAL 01/10/20 13:00 01/18/20 23:59 01/16/20 12:20 Char Morel M.D. Jan 16, 2020 14:30
[2020-01-16 16:00] VITALS: BP 120/76
--- NOTE | 2020-01-16 16:00 | Nephrology Progress Note ---
Assessment/Plan Problem List: (1) RICHARD (acute kidney injury) (2) Dehydration (3) Anemia (4) GI bleed (5) Malnutrition (6) Seizure disorder (7) Electrolyte imbalance Assessment Renal failure, in the form of prerenal azotemia, most likely secondary to GI bleed GI bleed, leading to severe anemia Sepsis, pneumonia Chronic tracheostomy, ventilator dependent History of CVA History of seizure disorder History of psychiatric disorder Severe malnutrition Electrolyte abnormalities Plan January 15: Lab reviewed. Renal parameters stable. January 14: Lab reviewed. Renal parameters stable. January 13: Labs reviewed. Stable from renal standpoint of view. January 12: Labs reviewed. Stable from renal standpoint of view January 11: No labs drawn today stable from renal standpoint of view January 10: Labs reviewed. Potassium supplement given. Continue per consultants. January 09: Lab reviewed. Potassium supplement given. IV fluid discontinued. January 08: Lab reviewed. Renal parameters stable. Continue per consultants. January 07: Lab reviewed. Renal parameters stable. Continue per consultants. January 06: Lab reviewed. Stable from renal standpoint of view. January 05: Labs reviewed. Stable from renal standpoint of view. Continue per consultants. January 04: No labs drawn today. Will check labs tomorrow. Continue per consultants. January 03: Lab reviewed. Renal parameters stable. IV fluid discontinued. High LFTs declining. Continue same. January 02: Lab reviewed. Renal parameters stable. Continue per PMD and consultants. LFTs remain elevated. Continue to monitor. Continue slow hydration Discontinue blood pressure medications as her blood pressure is low Discontinue diuretics Monitor renal parameters Transfusion as needed GI evaluation Correct electrolyte abnormalities Check B12 level, folate, and thyroid function tests: Results noted Subjective ROS Limited/Unobtainable: Yes Objective Objective Last 24 Hour Vital Signs Date Time Temp Pulse Resp B/P (MAP) Pulse Ox O2 Delivery O2 Flow Rate FiO2 01/16/20 15:32 74 01/16/20 15:28 69 30 30 01/16/20 13:10 67 32 30 01/16/20 12:00 Mechanical Ventilator 01/16/20 12:00 82 01/16/20 12:00 97.8 71 17 104/67 (79) 100 01/16/20 12:00 30 01/16/20 10:50 78 20 30 01/16/20 09:39 94/61 01/16/20 09:15 63 29 30 01/16/20 09:10 100 01/16/20 08:00 98.1 79 18 91/64 (73) 100 01/16/20 08:00 Mechanical Ventilator 01/16/20 08:00 30 01/16/20 07:51 75 01/16/20 07:00 98.0 82 17 104/60 (75) 98 01/16/20 06:45 87 31 30 01/16/20 05:30 75 25 30 01/16/20 04:00 Mechanical Ventilator 01/16/20 03:48 71 01/16/20 03:35 30 01/16/20 03:06 72 33 30 01/16/20 00:39 66 30 30 01/16/20 00:00 30 01/16/20 00:00 Mechanical Ventilator 01/16/20 00:00 72 01/16/20 00:00 98.2 79 15 98/54 (69) 98 01/15/20 23:15 72 27 30 01/15/20 21:03 81 25 30 01/15/20 20:00 30 01/15/20 20:00 98.5 70 14 106/56 (73) 98 01/15/20 20:00 72 01/15/20 20:00 Mechanical Ventilator 01/15/20 18:56 73 24 30 01/15/20 17:03 68 26 30 01/15/20 16:00 Mechanical Ventilator 01/15/20 16:00 30 01/15/20 16:00 98.2 64 14 97/59 (72) 97 01/15/20 16:00 69 Intake and Output 01/15/20 01/16/20 19:00 07:00 Intake Total 933.688 ml 1036.714 ml Output Total 500 ml 400 ml Balance 433.688 ml 636.714 ml Intake Free Water 300 ml 300 ml IV Total 83.688 ml 76.714 ml Tube Feeding 550 ml 660 ml Output Urine Total 300 ml 300 ml Stool Total 200 ml 100 ml # Bowel Movements 1 Laboratory Tests 01/15/20 16:48: POC Whole Blood Glucose [Pending] 01/15/20 22:00: POC Whole Blood Glucose [Pending] 01/16/20 03:30: White Blood Count 20.6H, Red Blood Count 3.59L, Hemoglobin 11.1L, Hematocrit 35.5L, Mean Corpuscular Volume 99, Mean Corpuscular Hemoglobin 31.1H, Mean Corpuscular Hemoglobin Concent 31.4L, Red Cell Distribution Width 16.2H, Platelet Count 355, Mean Platelet Volume 5.8L, Neutrophils (%) (Auto) , Lymphocytes (%) (Auto) , Monocytes (%) (Auto) , Eosinophils (%) (Auto) , Basophils (%) (Auto) , Differential Total Cells Counted 100, Neutrophils % ( Manual) 67, Lymphocytes % (Manual) 17L, Monocytes % (Manual) 3, Eosinophils % ( Manual) 5H, Basophils % (Manual) 0, Band Neutrophils 8, Platelet Estimate Adequate, Platelet Morphology Normal, Hypochromasia 1+, Anisocytosis 1+, Macrocytosis 1+ 01/16/20 06:40: POC Whole Blood Glucose 90 01/16/20 08:55: Sodium Level 136, Potassium Level 4.8, Chloride Level 100, Carbon Dioxide Level 29, Anion Gap 7, Blood Urea Nitrogen 23H, Creatinine 0.4L, Estimat Glomerular Filtration Rate > 60, Glucose Level 100, Calcium Level 10.0, Total Bilirubin 0.4 , Aspartate Amino Transf (AST/SGOT) 25, Alanine Aminotransferase (ALT/SGPT) 31, Alkaline Phosphatase 121H, Total Protein 7.9, Albumin 3.1L, Globulin 4.8, Albumin/Globulin Ratio 0.6L 01/16/20 11:21: POC Whole Blood Glucose 100 Height (Feet): 5 Height (Inches): 1.00 Weight (Pounds): 80 General Appearance: no apparent distress EENT: other - Trach to vent Cardiovascular: normal rate Respiratory/Chest: decreased breath sounds Objective No change Chivo Holloway MD Jan 16, 2020 16:00
--- NOTE | 2020-01-16 18:30 | General Progress Note ---
Assessment/Plan Status: stable, other - Patient is now hypotensive before over 46 she will receive 500 cc of normal saline bolus to be repeated blood pressure remained below 90 further management will be decided following the boluses treatment repeat laboratory tests will be done in kori BISHOP MD Status Narrative For the last several days patient has been on 5 mcg/min of dopamine solely [place] for bradycardia currently on vancomycin prednisone orally 125 4 times daily repeat laboratory tests will be done in kori BISHOP MD Assessment/Plan: Glenny Harrison Subjective Constitutional: Reports: no symptoms, other - Alert attentive longer attention span HEENT: Reports: other - Mucous membranes are moist Cardiovascular: Reports: other - No chest pain shortness of breath palpitations or dizziness Respiratory: Reports: other - No cough wheezing or expectoration Genitourinary: Reports: no symptoms Neurologic/Psychiatric: Reports: anxiety, weakness, other - Appear weak cachectic and chewing incessantly bed sheets Allergies: Coded Allergies: CARBAMAZEPINE (Verified Allergy, Unknown, 12/31/19) LORAZEPAM (Verified Allergy, Unknown, 12/31/19) Objective Last 24 Hour Vital Signs Date Time Temp Pulse Resp B/P (MAP) Pulse Ox O2 Delivery O2 Flow Rate FiO2 01/16/20 17:05 85 29 30 01/16/20 16:00 97.5 69 16 120/76 (91) 99 01/16/20 16:00 30 01/16/20 16:00 Mechanical Ventilator 01/16/20 15:32 74 01/16/20 15:28 69 30 30 01/16/20 13:10 67 32 30 01/16/20 12:00 Mechanical Ventilator 01/16/20 12:00 82 01/16/20 12:00 97.8 71 17 104/67 (79) 100 01/16/20 12:00 30 01/16/20 10:50 78 20 30 01/16/20 09:39 94/61 01/16/20 09:15 63 29 30 01/16/20 09:10 100 01/16/20 08:00 98.1 79 18 91/64 (73) 100 01/16/20 08:00 Mechanical Ventilator 01/16/20 08:00 30 01/16/20 07:51 75 01/16/20 07:00 98.0 82 17 104/60 (75) 98 01/16/20 06:45 87 31 30 01/16/20 05:30 75 25 30 01/16/20 04:00 Mechanical Ventilator 01/16/20 03:48 71 01/16/20 03:35 30 01/16/20 03:06 72 33 30 01/16/20 00:39 66 30 30 01/16/20 00:00 30 01/16/20 00:00 Mechanical Ventilator 01/16/20 00:00 72 01/16/20 00:00 98.2 79 15 98/54 (69) 98 01/15/20 23:15 72 27 30 01/15/20 21:03 81 25 30 01/15/20 20:00 30 01/15/20 20:00 98.5 70 14 106/56 (73) 98 01/15/20 20:00 72 01/15/20 20:00 Mechanical Ventilator 01/15/20 18:56 73 24 30 Intake and Output 01/15/20 01/16/20 19:00 07:00 Intake Total 933.688 ml 1036.714 ml Output Total 500 ml 400 ml Balance 433.688 ml 636.714 ml Intake Free Water 300 ml 300 ml IV Total 83.688 ml 76.714 ml Tube Feeding 550 ml 660 ml Output Urine Total 300 ml 300 ml Stool Total 200 ml 100 ml # Bowel Movements 1 Laboratory Tests 01/15/20 22:00: POC Whole Blood Glucose [Pending] 01/16/20 03:30: White Blood Count 20.6H, Red Blood Count 3.59L, Hemoglobin 11.1L, Hematocrit 35.5L, Mean Corpuscular Volume 99, Mean Corpuscular Hemoglobin 31.1H, Mean Corpuscular Hemoglobin Concent 31.4L, Red Cell Distribution Width 16.2H, Platelet Count 355, Mean Platelet Volume 5.8L, Neutrophils (%) (Auto) , Lymphocytes (%) (Auto) , Monocytes (%) (Auto) , Eosinophils (%) (Auto) , Basophils (%) (Auto) , Differential Total Cells Counted 100, Neutrophils % ( Manual) 67, Lymphocytes % (Manual) 17L, Monocytes % (Manual) 3, Eosinophils % ( Manual) 5H, Basophils % (Manual) 0, Band Neutrophils 8, Platelet Estimate Adequate, Platelet Morphology Normal, Hypochromasia 1+, Anisocytosis 1+, Macrocytosis 1+ 01/16/20 06:40: POC Whole Blood Glucose 90 01/16/20 08:55: Sodium Level 136, Potassium Level 4.8, Chloride Level 100, Carbon Dioxide Level 29, Anion Gap 7, Blood Urea Nitrogen 23H, Creatinine 0.4L, Estimat Glomerular Filtration Rate > 60, Glucose Level 100, Calcium Level 10.0, Total Bilirubin 0.4 , Aspartate Amino Transf (AST/SGOT) 25, Alanine Aminotransferase (ALT/SGPT) 31, Alkaline Phosphatase 121H, Total Protein 7.9, Albumin 3.1L, Globulin 4.8, Albumin/Globulin Ratio 0.6L 01/16/20 11:21: POC Whole Blood Glucose 100 01/16/20 16:28: POC Whole Blood Glucose 91 Height (Feet): 5 Height (Inches): 1.00 Weight (Pounds): 80 General Appearance: no apparent distress, alert EENT: pale conjunctivae Neck: supple Cardiovascular: normal rate, regular rhythm, no JVD Respiratory/Chest: lungs clear, normal breath sounds, rhonchi - bilaterally Abdomen: normal bowel sounds, non tender, soft, no organomegaly, no mass Extremities: non-tender Neurologic: alert, other - Very short attention span Glenny Bishop MD Jan 16, 2020 18:30
[2020-01-16 20:00] VITALS: BP 93/65
[2020-01-16] MEDS: OXcarbazepine 150mg tab ORAL SCH (20:11)
--- NOTE | 2020-01-16 22:39 | Psych Consult Progress Note ---
Psychiatry Progress Note Psychiatry Progress Note Subjective the pt is the same the pt attempts to pull out lines. awake confused Medications Current Medications Medications (Trade) Dose Ordered Sig/Villa Route PRN Reason Start Time Stop Time Status Last Admin Dose Admin Acetaminophen (Tylenol) 650 mg Q6H PRN GT Temp >100.5 01/01/20 11:00 01/31/20 10:59 01/15/20 08:18 Ascorbic Acid (Vitamin C) 500 mg DAILY ORAL 01/01/20 09:00 01/31/20 08:59 01/16/20 08:21 Dopamine HCl/ Dextrose 250 ml @ 6.974 mls/ hr Q24H IV 01/13/20 19:00 04/12/20 18:59 01/16/20 09:39 Famotidine (Pepcid) 20 mg BID ORAL 01/10/20 18:00 04/09/20 17:59 01/16/20 17:20 Fidaxomicin (Dificid) 200 mg EVERY 12 HOURS ORAL 01/16/20 21:00 01/26/20 09:01 01/16/20 20:11 Fluconazole (Diflucan) 100 mg DAILY GT 01/15/20 11:00 01/22/20 10:59 01/16/20 08:20 Gabapentin (Neurontin) 600 mg TID GT 01/08/20 13:00 02/07/20 12:59 01/16/20 17:20 Haloperidol Lactate (Haldol) 5 mg Q6H PRN IM Agitation 01/01/20 23:30 02/15/20 23:29 01/14/20 02:25 Levetiracetam (Keppra) 1,500 mg Q12HR GT 01/07/20 21:00 02/07/20 08:59 01/16/20 20:11 Levothyroxine Sodium (Synthroid) 75 mcg DAILY ORAL 01/01/20 09:00 01/31/20 08:59 01/16/20 08:21 Metronidazole (Flagyl) 500 mg Q8HR ORAL 01/16/20 14:00 01/23/20 13:59 01/16/20 21:27 Midodrine (Pro-Amatine) 2.5 mg THREE TIMES A DAY ORAL 01/07/20 09:00 04/06/20 08:59 01/16/20 17:20 Multivitamins Therapeutic (Therapeutic Multivitamin) 1 ea DAILY ORAL 01/01/20 09:00 01/31/20 08:59 01/16/20 08:21 Ondansetron HCl (Zofran) 4 mg Q6H PRN ORAL Nausea & Vomiting 12/31/19 21:00 01/30/20 20:59 Oxcarbazepine (TrileptaL) 300 mg BEDTIME ORAL 01/10/20 21:00 02/07/20 20:59 01/16/20 20:11 Potassium Chloride (K-Dur) 20 meq TWICE A DAY GT 01/11/20 09:00 04/10/20 08:59 01/16/20 17:20 Thiamine HCl (Vitamin B1) 100 mg DAILY ORAL 01/01/20 09:00 01/31/20 08:59 01/16/20 08:20 Neurological/Psychiatric: Reports: anxiety, weakness, other - Appear weak cachectic and chewing incessantly bed sheets Allergies: Coded Allergies: CARBAMAZEPINE (Verified Allergy, Unknown, 12/31/19) LORAZEPAM (Verified Allergy, Unknown, 12/31/19) Objective Data Height (Feet): 5 Height (Inches): 1.00 Weight (Pounds): 80 General Appearance: no apparent distress, alert Additional Comments: waxing and waning consciousness. Affect is flat. Thought process, there is a paucity of thought content. Thought content, no suicidal or homicidal ideation. Cognition is impaired. Insight and judgment is impaired. Assessment/Plan [place] I: tegan ativan david haldol Status: stable, other - Patient is now hypotensive before over 46 she will receive 500 cc of normal saline bolus to be repeated blood pressure remained below 90 further management will be decided following the boluses treatment repeat laboratory tests will be done in a.m. GEM MCKAY MD Status Narrative tegan larry Assessment/Plan: tegan ativan Rhonda Don MD Jan 16, 2020 22:39
--- NOTE | 2020-01-16 22:42 | Cardiology Progress Note ---
Assessment/Plan Assessment/Plan 1. Hypotension, could be due to Keppra, continue dopamine gtt, continue midodrine. 2. Sinus bradycardia, resolved. 3. Anemia of chronic disease 4. Acute renal failure, resolved. 5. GI bleeding due to gastric ulceration. 6. Dysphagia, s/p PEG placement. 7. VDRF, s/p tracheostomy tube placement. Subjective Subjective Sinus rhtythm at rate of 71. On the vent with FiO2 of 30%. Objective Last 24 Hour Vital Signs Date Time Temp Pulse Resp B/P (MAP) Pulse Ox O2 Delivery O2 Flow Rate FiO2 01/16/20 20:44 71 21 30 01/16/20 20:00 74 01/16/20 20:00 Mechanical Ventilator 01/16/20 20:00 97.7 91 16 93/65 (74) 98 01/16/20 20:00 30 01/16/20 18:59 74 25 30 01/16/20 17:05 85 29 30 01/16/20 16:00 97.5 69 16 120/76 (91) 99 01/16/20 16:00 30 01/16/20 16:00 Mechanical Ventilator 01/16/20 15:32 74 01/16/20 15:28 69 30 30 01/16/20 13:10 67 32 30 01/16/20 12:00 Mechanical Ventilator 01/16/20 12:00 82 01/16/20 12:00 97.8 71 17 104/67 (79) 100 01/16/20 12:00 30 01/16/20 10:50 78 20 30 01/16/20 09:39 94/61 01/16/20 09:15 63 29 30 01/16/20 09:10 100 01/16/20 08:00 98.1 79 18 91/64 (73) 100 01/16/20 08:00 Mechanical Ventilator 01/16/20 08:00 30 01/16/20 07:51 75 01/16/20 07:00 98.0 82 17 104/60 (75) 98 01/16/20 06:45 87 31 30 01/16/20 05:30 75 25 30 01/16/20 04:00 Mechanical Ventilator 01/16/20 03:48 71 01/16/20 03:35 30 01/16/20 03:06 72 33 30 01/16/20 00:39 66 30 30 01/16/20 00:00 30 01/16/20 00:00 Mechanical Ventilator 01/16/20 00:00 72 01/16/20 00:00 98.2 79 15 98/54 (69) 98 01/15/20 23:15 72 27 30 Intake and Output 01/15/20 01/16/20 19:00 07:00 Intake Total 933.688 ml 1036.714 ml Output Total 500 ml 400 ml Balance 433.688 ml 636.714 ml Intake Free Water 300 ml 300 ml IV Total 83.688 ml 76.714 ml Tube Feeding 550 ml 660 ml Output Urine Total 300 ml 300 ml Stool Total 200 ml 100 ml # Bowel Movements 1 2D Echo: LVEF 65%, RVSP 23 mmHg, Grade I LVDD Laboratory Tests Test 01/16/20 03:30 01/16/20 06:40 01/16/20 08:55 01/16/20 11:21 White Blood Count 20.6 K/UL (4.8-10.8) H Red Blood Count 3.59 M/UL (4.20-5.40) L Hemoglobin 11.1 G/DL (12.0-16.0) L Hematocrit 35.5 % (37.0-47.0) L Mean Corpuscular Volume 99 FL (80-99) Mean Corpuscular Hemoglobin 31.1 PG (27.0-31.0) H Mean Corpuscular Hemoglobin Concent 31.4 G/DL (32.0-36.0) L Red Cell Distribution Width 16.2 % (11.6-14.8) H Platelet Count 355 K/UL (150-450) Mean Platelet Volume 5.8 FL (6.5-10.1) L Neutrophils (%) (Auto) % (45.0-75.0) Lymphocytes (%) (Auto) % (20.0-45.0) Monocytes (%) (Auto) % (1.0-10.0) Eosinophils (%) (Auto) % (0.0-3.0) Basophils (%) (Auto) % (0.0-2.0) Differential Total Cells Counted 100 Neutrophils % (Manual) 67 % (45-75) Lymphocytes % (Manual) 17 % (20-45) L Monocytes % (Manual) 3 % (1-10) Eosinophils % (Manual) 5 % (0-3) H Basophils % (Manual) 0 % (0-2) Band Neutrophils 8 % (0-8) Platelet Estimate Adequate Platelet Morphology Normal Hypochromasia 1+ Anisocytosis 1+ Macrocytosis 1+ POC Whole Blood Glucose 90 MG/DL (74-106) 100 MG/DL (74-106) Sodium Level 136 MMOL/L (136-145) Potassium Level 4.8 MMOL/L (3.5-5.1) Chloride Level 100 MMOL/L (98-107) Carbon Dioxide Level 29 MMOL/L (21-32) Anion Gap 7 mmol/L (5-15) Blood Urea Nitrogen 23 mg/dL (7-18) H Creatinine 0.4 MG/DL (0.55-1.30) L Estimat Glomerular Filtration Rate > 60 mL/min (>60) Glucose Level 100 MG/DL (74-106) Calcium Level 10.0 MG/DL (8.5-10.1) Total Bilirubin 0.4 MG/DL (0.2-1.0) Aspartate Amino Transf (AST/SGOT) 25 U/L (15-37) Alanine Aminotransferase (ALT/SGPT) 31 U/L (12-78) Alkaline Phosphatase 121 U/L (46-116) H Total Protein 7.9 G/DL (6.4-8.2) Albumin 3.1 G/DL (3.4-5.0) L Globulin 4.8 g/dL Albumin/Globulin Ratio 0.6 (1.0-2.7) L Test 01/16/20 16:28 01/16/20 21:58 POC Whole Blood Glucose 91 MG/DL (74-106) Pending Objective HEENT: PERRLA, EOMI, Trach site with moderate secretions. NECK: Cannot assess JVP, no carotid bruit with normal upstroke. LUNGS: Bilateral rhonchi. CARDIAC: Regular rhythm and rate. Normal S1, S2 with no murmurs, gallops or rubs. ABDOMEN: Soft with G-tube. No hepatomegaly. EXTREMITIES: No edema, clubbing or cyanosis. Desmond Gleason MD Jan 16, 2020 22:42
[2020-01-17] VITALS: BP 95/64
[2020-01-17 04:00] VITALS: BP 123/55
[2020-01-17] MEDS: metroNIDAZOLE 500mg tab ORAL SCH ×3 (05:11→21:58)
[2020-01-17 05:23] LABS: BASOPHILS % (AUTO) 0.5 % (0.0-2.0); EOSINOPHILS % (AUTO) 9.8 % (0.0-3.0); HEMATOCRIT 30.6 % (37.0-47.0); HEMOGLOBIN 10.4 G/DL (12.0-16.0); LYMPHOCYTES % (AUTO) 13.1 % (20.0-45.0); MEAN CORPUSCULAR VOLUME 94 FL (80-99); MONOCYTES % (AUTO) 9.1 % (1.0-10.0); NEUTROPHILS % (AUTO) 67.5 % (45.0-75.0); PLATELET COUNT 314 K/UL (150-450); RED BLOOD COUNT 3.27 M/UL (4.20-5.40); RED CELL DISTRIBUTION WIDTH 15.2 % (11.6-14.8)
--- NOTE | 2020-01-17 06:58 | Hematology/Onc Progress Note ---
Assessment/Plan Assessment/Plan # Thrombocytopenia med related v labs error --> plt trend 167-->61-->227 --> meds have been reviewed --> no hep or lovenox (if less than 50k plt) # Anemia rule out underlying gi bleed --> Dr. Carrillo has been consulted-->endosco gastric ulceration --> trend hgb 7-->7.4-->7.9-->8.1->9.6-->8.5->9.1-->10-->11 --> anemia panel ordered-->reviewed --> prn transfusion --> protonix started # Leukocytosis is likely related to pna on imaging --> abx has been started --> if wbc worsens, consider abx vanc/zosyn--> ceftriaxone-->vanc->fluc/flagyl/ vanc-->flagyl/fidoxomicin --> smear is noted --> wbc 25-->15-->14-->16->7.6-->12-->20 --> pressors prn # Sepsis --> on abx for pna --> pressors as needed # Pneumonia --> pulm, Dr. 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, will follow Subjective Neurologic/Psychiatric: Denies: no symptoms, anxiety, depressed, emotional problems, headache, numbness, paresthesia, pre-existing deficit, seizure, tingling, tremors, weakness, other Endocrine: Denies: no symptoms, excessive sweating, flushing, intolerance to cold, intolerance to heat, increased hunger, increased thirst, increased urine, unexplained weight gain, unexplained weight loss, other Allergies: Coded Allergies: CARBAMAZEPINE (Verified Allergy, Unknown, 12/31/19) LORAZEPAM (Verified Allergy, Unknown, 12/31/19) All Systems: reviewed and negative except above Subjective 01/01 altered, trach, no bleedin wbc improved on abx, seen by gi 01/02 egd study noted, also with plts 61k, have dw Dharmita Rn, will recheck cbc 01/03 remains agitated, vitaly rn, no bleeding, cbc noted as well as id recs 01/04 on vent, with melena overnight, no bleeding, vitaly rn, labs reviewed 01/06 on vent, remains agitated, no bleeding, vitaly rn, smear is noted 01/07 on vent, restless, asymptomatic, noncooperative 01/[address] John obtained, reviewed, meds adjusted, eeg pending 01/09 labs noted, no bleeding, ativan has been discontinued, meds reviewed 01/10 trach to vent, agitated, with wrist restraints, no major changes, no bleeding 01/11 labs are reviewed, on trach to vent, no bleeding, agitated overnight, no complaints 01/13 labs noted, no bleeding, is on vent/trach, no bleeding, vitaly rn, labs are noted 01/14 labs are noted, no bleeding, remains on v/t, remains agitated, no bleeding 01/15 is c.diff positive, wbc higher at 21k, labs noted, on abx, reviewed gi, id recs 01/16 remains on vent, wbc is improved, in sr, as abx per id Objective Objective Current Medications Medications (Trade) Dose Ordered Sig/Villa Route PRN Reason Start Time Stop Time Status Last Admin Dose Admin Acetaminophen (Tylenol) 650 mg Q6H PRN GT Temp >100.5 01/01/20 11:00 01/31/20 10:59 01/15/20 08:18 Ascorbic Acid (Vitamin C) 500 mg DAILY ORAL 01/01/20 09:00 01/31/20 08:59 01/16/20 08:21 Dopamine HCl/ Dextrose 250 ml @ 6.974 mls/ hr Q24H IV 01/13/20 19:00 04/12/20 18:59 01/16/20 09:39 Famotidine (Pepcid) 20 mg BID ORAL 01/10/20 18:00 04/09/20 17:59 01/16/20 17:20 Fidaxomicin (Dificid) 200 mg EVERY 12 HOURS ORAL 01/16/20 21:00 01/26/20 09:01 01/16/20 20:11 Fluconazole (Diflucan) 100 mg DAILY GT 01/15/20 11:00 01/22/20 10:59 01/16/20 08:20 Gabapentin (Neurontin) 600 mg TID GT 01/08/20 13:00 02/07/20 12:59 01/16/20 17:20 Haloperidol Lactate (Haldol) 5 mg Q6H PRN IM Agitation 01/01/20 23:30 02/15/20 23:29 01/14/20 02:25 Levetiracetam (Keppra) 1,500 mg Q12HR GT 01/07/20 21:00 02/07/20 08:59 01/16/20 20:11 Levothyroxine Sodium (Synthroid) 75 mcg DAILY ORAL 01/01/20 09:00 01/31/20 08:59 01/16/20 08:21 Metronidazole (Flagyl) 500 mg Q8HR ORAL 01/16/20 14:00 01/23/20 13:59 01/17/20 05:11 Midodrine (Pro-Amatine) 2.5 mg THREE TIMES A DAY ORAL 01/07/20 09:00 04/06/20 08:59 01/16/20 17:20 Multivitamins Therapeutic (Therapeutic Multivitamin) 1 ea DAILY ORAL 01/01/20 09:00 01/31/20 08:59 01/16/20 08:21 Ondansetron HCl (Zofran) 4 mg Q6H PRN ORAL Nausea & Vomiting 12/31/19 21:00 01/30/20 20:59 Oxcarbazepine (TrileptaL) 300 mg BEDTIME ORAL 01/10/20 21:00 02/07/20 20:59 01/16/20 20:11 Potassium Chloride (K-Dur) 20 meq TWICE A DAY GT 01/11/20 09:00 04/10/20 08:59 01/16/20 17:20 Thiamine HCl (Vitamin B1) 100 mg DAILY ORAL 01/01/20 09:00 01/31/20 08:59 01/16/20 08:20 Last 24 Hour Vital Signs Date Time Temp Pulse Resp B/P (MAP) Pulse Ox O2 Delivery O2 Flow Rate FiO2 01/17/20 05:13 70 22 30 01/17/20 04:00 Mechanical Ventilator 01/17/20 04:00 57 01/17/20 04:00 98.3 65 16 123/55 (77) 98 01/17/20 04:00 30 9/2/20 03:19 64 21 30 01/17/20 01:20 64 25 30 01/17/20 00:00 98.7 75 16 95/64 (74) 99 01/17/20 00:00 Mechanical Ventilator 01/17/20 00:00 30 01/16/20 23:45 74 01/16/20 23:10 88 27 30 01/16/20 20:44 71 21 30 01/16/20 20:00 74 01/16/20 20:00 Mechanical Ventilator 01/16/20 20:00 97.7 91 16 93/65 (74) 98 01/16/20 20:00 30 01/16/20 18:59 74 25 30 01/16/20 17:05 85 29 30 01/16/20 16:00 97.5 69 16 120/76 (91) 99 01/16/20 16:00 30 01/16/20 16:00 Mechanical Ventilator 01/16/20 15:32 74 01/16/20 15:28 69 30 30 01/16/20 13:10 67 32 30 01/16/20 12:00 Mechanical Ventilator 01/16/20 12:00 82 01/16/20 12:00 97.8 71 17 104/67 (79) 100 01/16/20 12:00 30 01/16/20 10:50 78 20 30 01/16/20 09:39 94/61 01/16/20 09:15 63 29 30 01/16/20 09:10 100 01/16/20 08:00 98.1 79 18 91/64 (73) 100 01/16/20 08:00 Mechanical Ventilator 01/16/20 08:00 30 01/16/20 07:51 75 01/16/20 07:00 98.0 82 17 104/60 (75) 98 01/16/20 06:45 87 31 30 01/16/20 05:30 75 25 30 01/16/20 04:00 Mechanical Ventilator 01/16/20 03:48 71 01/16/20 03:35 30 01/16/20 03:06 72 33 30 01/16/20 00:39 66 30 30 01/16/20 00:00 30 01/16/20 00:00 Mechanical Ventilator 01/16/20 00:00 72 01/16/20 00:00 98.2 79 15 98/54 (69) 98 01/15/20 23:15 72 27 30 01/15/20 21:03 81 25 30 01/15/20 20:00 30 01/15/20 20:00 98.5 70 14 106/56 (73) 98 01/15/20 20:00 72 01/15/20 20:00 Mechanical Ventilator 01/15/20 18:56 73 24 30 01/15/20 17:03 68 26 30 01/15/20 16:00 Mechanical Ventilator 01/15/20 16:00 30 01/15/20 16:00 98.2 64 14 97/59 (72) 97 01/15/20 16:00 69 01/15/20 15:05 65 28 30 01/15/20 12:44 54 20 30 01/15/20 12:00 97.7 54 16 92/48 (63) 100 01/15/20 12:00 30 01/15/20 12:00 92/48 01/15/20 12:00 Mechanical Ventilator 01/15/20 11:31 48 01/15/20 10:55 51 20 30 01/15/20 09:24 73 27 30 01/15/20 09:22 100 01/15/20 08:48 98.0 01/15/20 08:00 99.0 93 14 125/58 (80) 99 01/15/20 08:00 125/58 01/15/20 08:00 95 01/15/20 08:00 Mechanical Ventilator 01/15/20 08:00 30 01/15/20 07:01 89 29 30 Intake and Output 01/16/20 01/17/20 19:00 07:00 Intake Total 501.974 ml 939.870 ml Output Total 600 ml 500 ml Balance -98.026 ml 439.870 ml Intake Free Water 300 ml IV Total 6.974 ml 34.870 ml Tube Feeding 495 ml 605 ml Output Urine Total 400 ml 400 ml Stool Total 200 ml 100 ml Labs Test 01/15/20 03:26 01/15/20 03:32 01/15/20 08:04 01/15/20 11:09 White Blood Count 20.4 K/UL (4.8-10.8) Red Blood Count 3.64 M/UL (4.20-5.40) Hemoglobin 11.2 G/DL (12.0-16.0) Hematocrit 34.8 % (37.0-47.0) Mean Corpuscular Volume 95 FL (80-99) Mean Corpuscular Hemoglobin 30.7 PG (27.0-31.0) Mean Corpuscular Hemoglobin Concent 32.2 G/DL (32.0-36.0) Red Cell Distribution Width 16.2 % (11.6-14.8) Platelet Count 354 K/UL (150-450) Mean Platelet Volume 6.3 FL (6.5-10.1) Neutrophils (%) (Auto) % (45.0-75.0) Lymphocytes (%) (Auto) % (20.0-45.0) Monocytes (%) (Auto) % (1.0-10.0) Eosinophils (%) (Auto) % (0.0-3.0) Basophils (%) (Auto) % (0.0-2.0) Differential Total Cells Counted 100 Neutrophils % (Manual) 80 % (45-75) Lymphocytes % (Manual) 7 % (20-45) Monocytes % (Manual) 6 % (1-10) Eosinophils % (Manual) 6 % (0-3) Basophils % (Manual) 1 % (0-2) Band Neutrophils 0 % (0-8) Platelet Estimate Adequate Platelet Morphology Normal Hypochromasia 1+ Anisocytosis 1+ Sodium Level 140 MMOL/L (136-145) Potassium Level 4.4 MMOL/L (3.5-5.1) Chloride Level 103 MMOL/L (98-107) Carbon Dioxide Level 30 MMOL/L (21-32) Anion Gap 7 mmol/L (5-15) Blood Urea Nitrogen 15 mg/dL (7-18) Creatinine 0.5 MG/DL (0.55-1.30) Estimat Glomerular Filtration Rate > 60 mL/min (>60) Glucose Level 67 MG/DL (74-106) Calcium Level 9.6 MG/DL (8.5-10.1) Magnesium Level 1.9 MG/DL (1.8-2.4) Arterial Blood pH 7.446 (7.350-7.450) Arterial Blood Partial Pressure CO2 36.5 mmHg (35.0-45.0) Arterial Blood Partial Pressure O2 84.9 mmHg (75.0-100.0) Arterial Blood HCO3 24.6 mmol/L (22.0-26.0) Arterial Blood Oxygen Saturation 96.5 % (95-100) Arterial Blood Base Excess 0.7 (-2-2) Tacos Test Positive POC Whole Blood Glucose 97 MG/DL (74-106) Test 01/15/20 16:48 01/15/20 22:00 01/16/20 03:30 01/16/20 06:40 White Blood Count 20.6 K/UL (4.8-10.8) Red Blood Count 3.59 M/UL (4.20-5.40) Hemoglobin 11.1 G/DL (12.0-16.0) Hematocrit 35.5 % (37.0-47.0) Mean Corpuscular Volume 99 FL (80-99) Mean Corpuscular Hemoglobin 31.1 PG (27.0-31.0) Mean Corpuscular Hemoglobin Concent 31.4 G/DL (32.0-36.0) Red Cell Distribution Width 16.2 % (11.6-14.8) Platelet Count 355 K/UL (150-450) Mean Platelet Volume 5.8 FL (6.5-10.1) Neutrophils (%) (Auto) % (45.0-75.0) Lymphocytes (%) (Auto) % (20.0-45.0) Monocytes (%) (Auto) % (1.0-10.0) Eosinophils (%) (Auto) % (0.0-3.0) Basophils (%) (Auto) % (0.0-2.0) Differential Total Cells Counted 100 Neutrophils % (Manual) 67 % (45-75) Lymphocytes % (Manual) 17 % (20-45) Monocytes % (Manual) 3 % (1-10) Eosinophils % (Manual) 5 % (0-3) Basophils % (Manual) 0 % (0-2) Band Neutrophils 8 % (0-8) Platelet Estimate Adequate Platelet Morphology Normal Hypochromasia 1+ Anisocytosis 1+ Macrocytosis 1+ POC Whole Blood Glucose 90 MG/DL (74-106) Test 01/16/20 08:55 01/16/20 11:21 01/16/20 16:28 01/16/20 21:58 Sodium Level 136 MMOL/L (136-145) Potassium Level 4.8 MMOL/L (3.5-5.1) Chloride Level 100 MMOL/L (98-107) Carbon Dioxide Level 29 MMOL/L (21-32) Anion Gap 7 mmol/L (5-15) Blood Urea Nitrogen 23 mg/dL (7-18) Creatinine 0.4 MG/DL (0.55-1.30) Estimat Glomerular Filtration Rate > 60 mL/min (>60) Glucose Level 100 MG/DL (74-106) Calcium Level 10.0 MG/DL (8.5-10.1) Total Bilirubin 0.4 MG/DL (0.2-1.0) Aspartate Amino Transf (AST/SGOT) 25 U/L (15-37) Alanine Aminotransferase (ALT/SGPT) 31 U/L (12-78) Alkaline Phosphatase 121 U/L (46-116) Total Protein 7.9 G/DL (6.4-8.2) Albumin 3.1 G/DL (3.4-5.0) Globulin 4.8 g/dL Albumin/Globulin Ratio 0.6 (1.0-2.7) POC Whole Blood Glucose 100 MG/DL (74-106) 91 MG/DL (74-106) Test 01/17/20 02:55 01/17/20 06:24 White Blood Count 13.0 K/UL (4.8-10.8) Red Blood Count 3.27 M/UL (4.20-5.40) Hemoglobin 10.4 G/DL (12.0-16.0) Hematocrit 30.6 % (37.0-47.0) Mean Corpuscular Volume 94 FL (80-99) Mean Corpuscular Hemoglobin 31.7 PG (27.0-31.0) Mean Corpuscular Hemoglobin Concent 33.9 G/DL (32.0-36.0) Red Cell Distribution Width 15.2 % (11.6-14.8) Platelet Count 314 K/UL (150-450) Mean Platelet Volume 6.5 FL (6.5-10.1) Neutrophils (%) (Auto) 67.5 % (45.0-75.0) Lymphocytes (%) (Auto) 13.1 % (20.0-45.0) Monocytes (%) (Auto) 9.1 % (1.0-10.0) Eosinophils (%) (Auto) 9.8 % (0.0-3.0) Basophils (%) (Auto) 0.5 % (0.0-2.0) POC Whole Blood Glucose 87 MG/DL (74-106) Height (Feet): 5 Height (Inches): 1.00 Weight (Pounds): 80 Objective Vital Signs General Appearance: ++ cachectic, chronically ill HEENT: normocephalic, atraumatic ++ trach Resp: other -. vent ++ Cardiovascular: regular rate, rhythm, no edema Gastrointestinal: gtube in place, without erythema Rectal: other - Hemoccult positive [place]: back normal, gait/station normal, non-tender Lymphatic: no adenopathy Baltazar Cortes MD Jan 17, 2020 06:58
[2020-01-17 08:00] VITALS: BP 126/68
[2020-01-17] MEDS: Thiamine 100mg tab ORAL SCH (08:25)
[2020-01-17] MEDS: Multivitamin w/Minerals tab ORAL SCH (08:25)
[2020-01-17] MEDS: Ascorbic Acid 500mg tab ORAL SCH (08:25)
[2020-01-17] MEDS: Fluconazole 100mg tab GT SCH (08:26)
[2020-01-17] MEDS: levETIRAcetam 500mg/5ml Liquid GT SCH ×2 (08:26→21:58)
[2020-01-17] MEDS: Gabapentin 300 MG/6 ML Soln GT SCH ×3 (08:27→17:13)
--- NOTE | 2020-01-17 09:07 | General Progress Note ---
Assessment/Plan Problem List: (1) G tube feedings ICD Codes: Z93.1 - Gastrostomy status SNOMED: 991308149, 209611214, 437616418 (2) GI bleed ICD Codes: K92.2 - Gastrointestinal hemorrhage, unspecified SNOMED: 26734218 (3) Sepsis ICD Codes: A41.9 - Sepsis, unspecified organism SNOMED: 43403020 (4) Pneumonia ICD Codes: J18.9 - Pneumonia, unspecified organism SNOMED: 372558837 Status: stable, other - Patient is now hypotensive before over 46 she will receive 500 cc of normal saline bolus to be repeated blood pressure remained below 90 further management will be decided following the boluses treatment repeat laboratory tests will be done in a.m. GEM MCKAY MD Assessment/Plan: s/p EGD gastric ulcer no recurrent bleed G TF monitor H&H C. Diff positive off ppi po vanco pepcid will fu Subjective ROS Limited/Unobtainable: No Allergies: Coded Allergies: CARBAMAZEPINE (Verified Allergy, Unknown, 12/31/19) LORAZEPAM (Verified Allergy, Unknown, 12/31/19) Objective Last 24 Hour Vital Signs Date Time Temp Pulse Resp B/P (MAP) Pulse Ox O2 Delivery O2 Flow Rate FiO2 01/17/20 08:00 97.7 64 21 126/68 (87) 100 01/17/20 05:13 70 22 30 01/17/20 04:00 Mechanical Ventilator 01/17/20 04:00 57 01/17/20 04:00 98.3 65 16 123/55 (77) 98 01/17/20 04:00 30 01/17/20 03:19 64 21 30 01/17/20 01:20 64 25 30 01/17/20 00:00 98.7 75 16 95/64 (74) 99 01/17/20 00:00 Mechanical Ventilator 01/17/20 00:00 30 01/16/20 23:45 74 01/16/20 23:10 88 27 30 01/16/20 20:44 71 21 30 01/16/20 20:00 74 01/16/20 20:00 Mechanical Ventilator 01/16/20 20:00 97.7 91 16 93/65 (74) 98 01/16/20 20:00 30 01/16/20 18:59 74 25 30 01/16/20 17:05 85 29 30 01/16/20 16:00 97.5 69 16 120/76 (91) 99 01/16/20 16:00 30 01/16/20 16:00 Mechanical Ventilator 01/16/20 15:32 74 01/16/20 15:28 69 30 30 01/16/20 13:10 67 32 30 01/16/20 12:00 Mechanical Ventilator 01/16/20 12:00 82 01/16/20 12:00 97.8 71 17 104/67 (79) 100 01/16/20 12:00 30 01/16/20 10:50 78 20 30 01/16/20 09:39 94/61 01/16/20 09:15 63 29 30 01/16/20 09:10 100 Intake and Output 01/16/20 01/17/20 19:00 07:00 Intake Total 501.974 ml 981.714 ml Output Total 600 ml 500 ml Balance -98.026 ml 481.714 ml Intake Free Water 300 ml IV Total 6.974 ml 76.714 ml Tube Feeding 495 ml 605 ml Output Urine Total 400 ml 400 ml Stool Total 200 ml 100 ml Laboratory Tests 01/16/20 11:21: POC Whole Blood Glucose 100 01/16/20 16:28: POC Whole Blood Glucose 91 01/16/20 21:58: POC Whole Blood Glucose [Pending] 01/17/20 02:55: White Blood Count 13.0H, Red Blood Count 3.27L, Hemoglobin 10.4L, Hematocrit 30.6L, Mean Corpuscular Volume 94, Mean Corpuscular Hemoglobin 31.7H, Mean Corpuscular Hemoglobin Concent 33.9, Red Cell Distribution Width 15.2H, Platelet Count 314, Mean Platelet Volume 6.5, Neutrophils (%) (Auto) 67.5, Lymphocytes (%) (Auto) 13.1L, Monocytes (%) (Auto) 9.1, Eosinophils (%) (Auto) 9.8H, Basophils (%) (Auto) 0.5 01/17/20 06:24: POC Whole Blood Glucose 87 Height (Feet): 5 Height (Inches): 1.00 Weight (Pounds): 80 General Appearance: no apparent distress EENT: normal ENT inspection Neck: supple Cardiovascular: normal rate Respiratory/Chest: decreased breath sounds Abdomen: normal bowel sounds, non tender, soft Extremities: non-tender Satish Carrillo MD Jan 17, 2020 09:07
--- NOTE | 2020-01-17 09:58 | Nephrology Progress Note ---
Assessment/Plan Problem List: (1) RICHARD (acute kidney injury) (2) Dehydration (3) Anemia (4) GI bleed (5) Malnutrition (6) Seizure disorder (7) Electrolyte imbalance Assessment Renal failure, in the form of prerenal azotemia, most likely secondary to GI bleed GI bleed, leading to severe anemia Sepsis, pneumonia Chronic tracheostomy, ventilator dependent History of CVA History of seizure disorder History of psychiatric disorder Severe malnutrition Electrolyte abnormalities Plan January 16: No can panel today. Check lab tomorrow. Remains stable from renal standpoint of view. January 15: Lab reviewed. Renal parameters stable. January 14: Lab reviewed. Renal parameters stable. January 13: Labs reviewed. Stable from renal standpoint of view. January 12: Labs reviewed. Stable from renal standpoint of view January 11: No labs drawn today stable from renal standpoint of view January 10: Labs reviewed. Potassium supplement given. Continue per consultants. January 09: Lab reviewed. Potassium supplement given. IV fluid discontinued. January 08: Lab reviewed. Renal parameters stable. Continue per consultants. January 07: Lab reviewed. Renal parameters stable. Continue per consultants. January 06: Lab reviewed. Stable from renal standpoint of view. January 05: Labs reviewed. Stable from renal standpoint of view. Continue per consultants. January 04: No labs drawn today. Will check labs tomorrow. Continue per consultants. January 03: Lab reviewed. Renal parameters stable. IV fluid discontinued. High LFTs declining. Continue same. January 02: Lab reviewed. Renal parameters stable. Continue per PMD and consultants. LFTs remain elevated. Continue to monitor. Continue slow hydration Discontinue blood pressure medications as her blood pressure is low Discontinue diuretics Monitor renal parameters Transfusion as needed GI evaluation Correct electrolyte abnormalities Check B12 level, folate, and thyroid function tests: Results noted Subjective ROS Limited/Unobtainable: Yes Objective Objective Last 24 Hour Vital Signs Date Time Temp Pulse Resp B/P (MAP) Pulse Ox O2 Delivery O2 Flow Rate FiO2 01/17/20 08:00 Mechanical Ventilator 01/17/20 08:00 59 01/17/20 08:00 30 01/17/20 08:00 97.7 64 21 126/68 (87) 100 01/17/20 05:13 70 22 30 01/17/20 04:00 Mechanical Ventilator 01/17/20 04:00 57 01/17/20 04:00 98.3 65 16 123/55 (77) 98 01/17/20 04:00 30 01/17/20 03:19 64 21 30 01/17/20 01:20 64 25 30 01/17/20 00:00 98.7 75 16 95/64 (74) 99 01/17/20 00:00 Mechanical Ventilator 01/17/20 00:00 30 01/16/20 23:45 74 01/16/20 23:10 88 27 30 01/16/20 20:44 71 21 30 01/16/20 20:00 74 01/16/20 20:00 Mechanical Ventilator 01/16/20 20:00 97.7 91 16 93/65 (74) 98 01/16/20 20:00 30 01/16/20 18:59 74 25 30 01/16/20 17:05 85 29 30 01/16/20 16:00 97.5 69 16 120/76 (91) 99 01/16/20 16:00 30 01/16/20 16:00 Mechanical Ventilator 01/16/20 15:32 74 01/16/20 15:28 69 30 30 01/16/20 13:10 67 32 30 01/16/20 12:00 Mechanical Ventilator 01/16/20 12:00 82 01/16/20 12:00 97.8 71 17 104/67 (79) 100 01/16/20 12:00 30 01/16/20 10:50 78 20 30 Intake and Output 01/16/20 01/17/20 19:00 07:00 Intake Total 501.974 ml 981.714 ml Output Total 600 ml 500 ml Balance -98.026 ml 481.714 ml Intake Free Water 300 ml IV Total 6.974 ml 76.714 ml Tube Feeding 495 ml 605 ml Output Urine Total 400 ml 400 ml Stool Total 200 ml 100 ml Laboratory Tests 01/16/20 11:21: POC Whole Blood Glucose 100 01/16/20 16:28: POC Whole Blood Glucose 91 01/16/20 21:58: POC Whole Blood Glucose [Pending] 01/17/20 02:55: White Blood Count 13.0H, Red Blood Count 3.27L, Hemoglobin 10.4L, Hematocrit 30.6L, Mean Corpuscular Volume 94, Mean Corpuscular Hemoglobin 31.7H, Mean Corpuscular Hemoglobin Concent 33.9, Red Cell Distribution Width 15.2H, Platelet Count 314, Mean Platelet Volume 6.5, Neutrophils (%) (Auto) 67.5, Lymphocytes (%) (Auto) 13.1L, Monocytes (%) (Auto) 9.1, Eosinophils (%) (Auto) 9.8H, Basophils (%) (Auto) 0.5 01/17/20 06:24: POC Whole Blood Glucose 87 Height (Feet): 5 Height (Inches): 1.00 Weight (Pounds): 80 General Appearance: lethargic EENT: other - Trach to vent Cardiovascular: normal rate Respiratory/Chest: decreased breath sounds Abdomen: distended Objective No change Chivo Holloway MD Jan 17, 2020 09:58
--- NOTE | 2020-01-17 10:25 | Pulmonology Progress Note ---
Ivanna Mora SPINNING SUPERVISOR 01/17/20 1025: Subjective ROS Limited/Unobtainable: Yes Allergies: Coded Allergies: CARBAMAZEPINE (Verified Allergy, Unknown, 12/31/19) LORAZEPAM (Verified Allergy, Unknown, 12/31/19) All Systems: reviewed and negative except above Subjective leukocytosis trending down. no fevers tachypnea improved BP better still at Dopamine gtt ABG stable on current settings CXR 01/13 no acute findings Objective Last 24 Hour Vital Signs Date Time Temp Pulse Resp B/P (MAP) Pulse Ox O2 Delivery O2 Flow Rate FiO2 01/17/20 08:00 Mechanical Ventilator 01/17/20 08:00 59 01/17/20 08:00 30 01/17/20 08:00 97.7 64 21 126/68 (87) 100 01/17/20 05:13 70 22 30 01/17/20 04:00 Mechanical Ventilator 01/17/20 04:00 57 01/17/20 04:00 98.3 65 16 123/55 (77) 98 01/17/20 04:00 30 01/17/20 03:19 64 21 30 01/17/20 01:20 64 25 30 01/17/20 00:00 98.7 75 16 95/64 (74) 99 01/17/20 00:00 Mechanical Ventilator 01/17/20 00:00 30 01/16/20 23:45 74 01/16/20 23:10 88 27 30 01/16/20 20:44 71 21 30 01/16/20 20:00 74 01/16/20 20:00 Mechanical Ventilator 01/16/20 20:00 97.7 91 16 93/65 (74) 98 01/16/20 20:00 30 01/16/20 18:59 74 25 30 01/16/20 17:05 85 29 30 01/16/20 16:00 97.5 69 16 120/76 (91) 99 01/16/20 16:00 30 01/16/20 16:00 Mechanical Ventilator 01/16/20 15:32 74 01/16/20 15:28 69 30 30 01/16/20 13:10 67 32 30 01/16/20 12:00 Mechanical Ventilator 01/16/20 12:00 82 01/16/20 12:00 97.8 71 17 104/67 (79) 100 01/16/20 12:00 30 01/16/20 10:50 78 20 30 Intake and Output 01/16/20 01/17/20 19:00 07:00 Intake Total 501.974 ml 981.714 ml Output Total 600 ml 500 ml Balance -98.026 ml 481.714 ml Intake Free Water 300 ml IV Total 6.974 ml 76.714 ml Tube Feeding 495 ml 605 ml Output Urine Total 400 ml 400 ml Stool Total 200 ml 100 ml Objective General Appearance: bedridden, pale, chronically ill looking, older than her biological age ; vent dependent female ; on vent SIMV 450-30%-12, PEEP 5 Lines, tubes and drains: peripheral, trach HEENT: normocephalic, atraumatic Neck: trach - Portex #7, secretions small amount, yellow color, thin consistency Respiratory/Chest: CTAB Cardiovascular/Chest: regular rate, regular rhythm Abdomen: non tender, soft, G tube Genitourinary/Rectal: [place] Extremities: no edema, muscle atrophy Neurologic: abnormal gait, poorly responsive, more awake , eyes open Musculoskeletal: atrophy BLE Skin: multiple tattoos Laboratory Tests 01/16/20 11:21: POC Whole Blood Glucose 100 01/16/20 16:28: POC Whole Blood Glucose 91 01/16/20 21:58: POC Whole Blood Glucose [Pending] 01/17/20 02:55: White Blood Count 13.0H, Red Blood Count 3.27L, Hemoglobin 10.4L, Hematocrit 30.6L, Mean Corpuscular Volume 94, Mean Corpuscular Hemoglobin 31.7H, Mean Corpuscular Hemoglobin Concent 33.9, Red Cell Distribution Width 15.2H, Platelet Count 314, Mean Platelet Volume 6.5, Neutrophils (%) (Auto) 67.5, Lymphocytes (%) (Auto) 13.1L, Monocytes (%) (Auto) 9.1, Eosinophils (%) (Auto) 9.8H, Basophils (%) (Auto) 0.5 01/17/20 06:24: POC Whole Blood Glucose 87 Current Medications Medications (Trade) Dose Ordered Sig/Villa Route PRN Reason Start Time Stop Time Status Last Admin Dose Admin Acetaminophen (Tylenol) 650 mg Q6H PRN GT Temp >100.5 01/01/20 11:00 01/31/20 10:59 01/15/20 08:18 Ascorbic Acid (Vitamin C) 500 mg DAILY ORAL 01/01/20 09:00 01/31/20 08:59 01/17/20 08:25 Dopamine HCl/ Dextrose 250 ml @ 6.974 mls/ hr Q24H IV 01/13/20 19:00 04/12/20 18:59 01/16/20 09:39 Famotidine (Pepcid) 20 mg BID ORAL 01/10/20 18:00 04/09/20 17:59 01/17/20 08:26 Fidaxomicin (Dificid) 200 mg EVERY 12 HOURS ORAL 01/16/20 21:00 01/26/20 09:01 01/17/20 08:46 Fluconazole (Diflucan) 100 mg DAILY GT 01/15/20 11:00 01/22/20 10:59 01/17/20 08:26 Gabapentin (Neurontin) 600 mg TID GT 01/08/20 13:00 02/07/20 12:59 01/17/20 08:27 Haloperidol Lactate (Haldol) 5 mg Q6H PRN IM Agitation 01/01/20 23:30 02/15/20 23:29 01/14/20 02:25 Levetiracetam (Keppra) 1,500 mg Q12HR GT 01/07/20 21:00 02/07/20 08:59 01/17/20 08:26 Levothyroxine Sodium (Synthroid) 75 mcg DAILY ORAL 01/01/20 09:00 01/31/20 08:59 01/17/20 08:26 Metronidazole (Flagyl) 500 mg Q8HR ORAL 01/16/20 14:00 01/23/20 13:59 01/17/20 05:11 Midodrine (Pro-Amatine) 2.5 mg THREE TIMES A DAY ORAL 01/07/20 09:00 04/06/20 08:59 01/17/20 08:25 Multivitamins Therapeutic (Therapeutic Multivitamin) 1 ea DAILY ORAL 01/01/20 09:00 01/31/20 08:59 01/17/20 08:25 Ondansetron HCl (Zofran) 4 mg Q6H PRN ORAL Nausea & Vomiting 12/31/19 21:00 01/30/20 20:59 Oxcarbazepine (TrileptaL) 300 mg BEDTIME ORAL 01/10/20 21:00 02/07/20 20:59 01/16/20 20:11 Potassium Chloride (K-Dur) 20 meq TWICE A DAY GT 01/11/20 09:00 04/10/20 08:59 01/17/20 08:26 Thiamine HCl (Vitamin B1) 100 mg DAILY ORAL 01/01/20 09:00 01/31/20 08:59 01/17/20 08:25 Assessment/Plan Assessment/Plan ASSESSMENT VDRF/trach status Sepsis Possible pneumonia UTI recurrent GI bleeding C dif colitis Anemia secondary to GI bleeding Aspiration risk Dysphagia, feeding by G-tube Encephalopathy Acute kidney injury likely secondary to dehydration Bradycardia Hypotension Electrolyte imbalance Severe protein calorie malnutrition Hx of hypertension History of CVA Seizure disorder with witnessed seizure episode 01/07 Psychiatric disorder Presumed scabies, s/p Rx Thrombocytopenia-transient- resolved PLAN OF CARE JULIANA vent support, pulm toilet ABG stable on current settings, on SIMV mode 450-30-12 PEEP5 , no signs of resp distress on these settings keep settings as is and titrate as needed now tachypneic intermittently ABG repeated this am 01/14 due to tachypnea- remains stable CXR 01/13 stable pulm toilet via HHN Theophylline level was high -25; ->was dc prior leuk now trendingdownp , no fevers, possibly due to C dif pancx-per ID CXR 01/13- no acute findings KUB 01/13- no acute findings UA + yeast , 01/12 UCX +yeast, started on Fluconazole 01/14 as per ID BCX 01/12 NGTD abx as per ID recs Vanco po dc and switched to Dificid inflammatory markers : ESR-42, CRP- wnl prior BCX 05/18 +CONS likely contaminant, off Vanco ; repeated BCX 01/01 and 01/02 NGTD SCX + Proteus , was on Ceftriaxone as per ID recs for poss SBP in setting of GI bleeding - completed BCX 01/01 and 01/02 NGTD stool C dif 01/07 +, on oral vanco rapid COVID 19 NGT in ED aspiration precautions Venous Duplex BLE -negative, get SCD ( unable to give a/c given anemia) closely monitor hemodynamic status Protonix IV GT feeding stool OB positive transfuse to keep Hgb > 7. heme and GI follows s/p EGD 01/01 -> gastric ulcer across G tube site , no active bleeding HH at baseline monitor for any further episodes of Gi bleeding trend LFT-> trended down, hep panel NGT hx of cirrhosis- per GI management hypotension-> Midodrine, s/p IV fluids, on Dopamine gtt bradycardia -> Midodrine dose decreased and prior Theophylline was started by primary but dc due to increased level cardio follows HR better monitor renal parameters, lytes, avoid nephrotoxic BUN trending down, creat stable, likely prerenal due to dehydration replace e/lytes as per nephro recs monitor volumes seizure precautions, antiepileptic optimized as per neuro recs ammonia 49, fup with further neuro recs EEG - grossly abnormal; mild to mod encephalopathy, single ictal episode CT head no acute IC pathology BP management with current regimen SNF meds supportive care dietary recs s/p 12/31 Rx for presumed scabies with permethrin and Ivermectin, repeated Ivermectin 01/08 case discussed and evaluated by supervising physician Raul Esparza MD 01/17/20 1104: Subjective Allergies: Coded Allergies: CARBAMAZEPINE (Verified Allergy, Unknown, 12/31/19) LORAZEPAM (Verified Allergy, Unknown, 12/31/19) Assessment/Plan Assessment/Plan Patient seen and examined with SPINNING SUPERVISOR. Agree with above A&P as it reflects our joint deliberations. Ivanna Mora NP Jan 17, 2020 10:25 Raul Esparza MD Jan 17, 2020 11:04
[2020-01-17 12:00] VITALS: BP 123/72
[2020-01-17] MEDS: Haloperidol 5mg/ml Inj IM PRN (12:04)
--- NOTE | 2020-01-17 13:27 | Infectious Diseases Prog Note ---
Assessment/Plan 39yo F with: Sepsis Fever to 101.5>>Low grade ; SP Possible pna on CXR Leukocytosis; recurrent; increased- now improvign -01/13 CXR: no acute disease -01/12 u/a wbc tnct, nit neg, latrell +3; ucx >100k C. tropicalis Bcx NTD Cdiff colitis -Cdif toxin + -01/13 KUB: no acute findings Recurrent GIB 01/06 u/aneg 12/30 BCx 1/2 +CONS, likely contaminant 12/30 UA neg, COVID rapid Ag neg 12/30 CXR 1. Density overlying the bilateral lung apices. May represent pleural thickening, multifocal airspace opacities, versus summation artifact. 01/01 BCx Neg 01/02 BCx Neg Seizure episode -01/10 CT head: Third and lateral ventriculomegaly. Associated enlargement of the extra axial CSF spaces indicates that this is probably due to central volume loss, but the possibility of hydrocephalus should also be considered. At the degree of volume loss is considerably out of proportion to patient's age. Periventricular deep white matter low-attenuation. Probably on the basis of microvascular ischemic change but given patient's age the possibility of demyelinating disease should be considered as well. Negative for acute intracranial bleed or mass effect Possible Scabies SP tx w/ Permethrin and Ivermectin 12/31 R/o DVT: None on US 12/30 MRSA nares neg Recurrent GIBs, FOBT+ Hepatic encephalopathy, chronic S/p Trach/PEG Resides at SNF Plan: PO Dificid #2/10 as failing PO Vancomycin Cont PO fluconazole #3/5 for significant pyuria and leukocytosis Noted FLagyl #2 per GI 01/15 SP PO Vancomycin #8 01/08 SP Ceftriaxone #7 01/02 SP vanco #2, Zosyn #2 SP 2nd dose of ivermectin (01/08) Monitor CBC/CMP Monitor resp status Monitor temp and hemodynamics contact isolation f/u repeat cultures D/w RN and pharmacy staff Thank you for this consult. [facility] will continue to follow. Subjective Allergies: Coded Allergies: CARBAMAZEPINE (Verified Allergy, Unknown, 12/31/19) LORAZEPAM (Verified Allergy, Unknown, 12/31/19) afebrile wbc remains at 20 Bcx NTD Objective Last 24 Hour Vital Signs Date Time Temp Pulse Resp B/P (MAP) Pulse Ox O2 Delivery O2 Flow Rate FiO2 01/17/20 12:00 Mechanical Ventilator 01/17/20 12:00 97.7 75 22 123/72 (89) 100 01/17/20 12:00 30 01/17/20 12:00 54 01/17/20 10:36 51 16 30 01/17/20 09:30 68 25 30 01/17/20 08:00 Mechanical Ventilator 01/17/20 08:00 59 01/17/20 08:00 30 01/17/20 08:00 97.7 64 21 126/68 (87) 100 01/17/20 07:23 63 24 30 01/17/20 05:13 70 22 30 01/17/20 04:00 Mechanical Ventilator 01/17/20 04:00 57 01/17/20 04:00 98.3 65 16 123/55 (77) 98 01/17/20 04:00 30 01/17/20 03:19 64 21 30 01/17/20 01:20 64 25 30 01/17/20 00:00 98.7 75 16 95/64 (74) 99 01/17/20 00:00 Mechanical Ventilator 01/17/20 00:00 30 01/16/20 23:45 74 01/16/20 23:10 88 27 30 01/16/20 20:44 71 21 30 01/16/20 20:00 74 01/16/20 20:00 Mechanical Ventilator 01/16/20 20:00 97.7 91 16 93/65 (74) 98 01/16/20 20:00 30 01/16/20 18:59 74 25 30 01/16/20 17:05 85 29 30 01/16/20 16:00 97.5 69 16 120/76 (91) 99 01/16/20 16:00 30 01/16/20 16:00 Mechanical Ventilator 01/16/20 15:32 74 01/16/20 15:28 69 30 30 Height (Feet): 5 Height (Inches): 1.00 Weight (Pounds): 80 General Appearance: no apparent distress Neck: supple Cardiovascular: normal rate Respiratory/Chest: decreased breath sounds Abdomen: hypoactive bowel sounds Extremities: non-tender Laboratory Tests Test 01/16/20 16:28 01/16/20 21:58 01/17/20 02:55 01/17/20 06:24 POC Whole Blood Glucose 91 MG/DL (74-106) Pending 87 MG/DL (74-106) White Blood Count 13.0 K/UL (4.8-10.8) H Red Blood Count 3.27 M/UL (4.20-5.40) L Hemoglobin 10.4 G/DL (12.0-16.0) L Hematocrit 30.6 % (37.0-47.0) L Mean Corpuscular Volume 94 FL (80-99) Mean Corpuscular Hemoglobin 31.7 PG (27.0-31.0) H Mean Corpuscular Hemoglobin Concent 33.9 G/DL (32.0-36.0) Red Cell Distribution Width 15.2 % (11.6-14.8) H Platelet Count 314 K/UL (150-450) Mean Platelet Volume 6.5 FL (6.5-10.1) Neutrophils (%) (Auto) 67.5 % (45.0-75.0) Lymphocytes (%) (Auto) 13.1 % (20.0-45.0) L Monocytes (%) (Auto) 9.1 % (1.0-10.0) Eosinophils (%) (Auto) 9.8 % (0.0-3.0) H Basophils (%) (Auto) 0.5 % (0.0-2.0) Test 01/17/20 11:51 POC Whole Blood Glucose 82 MG/DL (74-106) Current Medications Medications (Trade) Dose Ordered Sig/Villa Route PRN Reason Start Time Stop Time Status Last Admin Dose Admin Acetaminophen (Tylenol) 650 mg Q6H PRN GT Temp >100.5 01/01/20 11:00 01/31/20 10:59 01/15/20 08:18 Ascorbic Acid (Vitamin C) 500 mg DAILY ORAL 01/01/20 09:00 01/31/20 08:59 01/17/20 08:25 Dopamine HCl/ Dextrose 250 ml @ 6.974 mls/ hr Q24H IV 01/13/20 19:00 04/12/20 18:59 01/16/20 09:39 Famotidine (Pepcid) 20 mg BID ORAL 01/10/20 18:00 04/09/20 17:59 01/17/20 08:26 Fidaxomicin (Dificid) 200 mg EVERY 12 HOURS ORAL 01/16/20 21:00 01/26/20 09:01 01/17/20 08:46 Fluconazole (Diflucan) 100 mg DAILY GT 01/15/20 11:00 01/22/20 10:59 01/17/20 08:26 Gabapentin (Neurontin) 600 mg TID GT 01/08/20 13:00 02/07/20 12:59 01/17/20 13:06 Haloperidol Lactate (Haldol) 5 mg Q6H PRN IM Agitation 01/01/20 23:30 02/15/20 23:29 01/17/20 12:04 Levetiracetam (Keppra) 1,500 mg Q12HR GT 01/07/20 21:00 02/07/20 08:59 01/17/20 08:26 Levothyroxine Sodium (Synthroid) 75 mcg DAILY ORAL 01/01/20 09:00 01/31/20 08:59 01/17/20 08:26 Metronidazole (Flagyl) 500 mg Q8HR ORAL 01/16/20 14:00 01/23/20 13:59 01/17/20 13:05 Midodrine (Pro-Amatine) 2.5 mg THREE TIMES A DAY ORAL 01/07/20 09:00 04/06/20 08:59 01/17/20 13:05 Multivitamins Therapeutic (Therapeutic Multivitamin) 1 ea DAILY ORAL 01/01/20 09:00 01/31/20 08:59 01/17/20 08:25 Ondansetron HCl (Zofran) 4 mg Q6H PRN ORAL Nausea & Vomiting 12/31/19 21:00 01/30/20 20:59 Oxcarbazepine (TrileptaL) 300 mg BEDTIME ORAL 01/10/20 21:00 02/07/20 20:59 01/16/20 20:11 Potassium Chloride (K-Dur) 20 meq TWICE A DAY GT 01/11/20 09:00 04/10/20 08:59 01/17/20 08:26 Thiamine HCl (Vitamin B1) 100 mg DAILY ORAL 01/01/20 09:00 01/31/20 08:59 01/17/20 08:25 Char Morel M.D. Jan 17, 2020 13:27
[2020-01-17 16:00] VITALS: BP 107/49
[2020-01-17] MEDS: DOPamine 400mg/250ml 250 ML IV SCH (17:16)
--- NOTE | 2020-01-17 18:23 | Surgery Progress Note ---
Surgery Progress Note Subjective Symptoms: improved, tolerating diet, passing flatus Objective Last 24 Hour Vital Signs Date Time Temp Pulse Resp B/P (MAP) Pulse Ox O2 Delivery O2 Flow Rate FiO2 01/17/20 17:25 56 26 30 01/17/20 17:16 107/49 01/17/20 16:00 Mechanical Ventilator 01/17/20 16:00 30 01/17/20 16:00 53 01/17/20 16:00 97.7 59 20 107/49 (68) 98 01/17/20 14:39 60 19 30 01/17/20 12:48 56 19 30 01/17/20 12:00 Mechanical Ventilator 01/17/20 12:00 97.7 75 22 123/72 (89) 100 01/17/20 12:00 30 01/17/20 12:00 54 01/17/20 10:36 51 16 30 01/17/20 09:45 100 01/17/20 09:30 68 25 30 01/17/20 08:00 Mechanical Ventilator 01/17/20 08:00 59 01/17/20 08:00 30 01/17/20 08:00 97.7 64 21 126/68 (87) 100 01/17/20 07:23 63 24 30 01/17/20 05:13 70 22 30 01/17/20 04:00 Mechanical Ventilator 01/17/20 04:00 57 01/17/20 04:00 98.3 65 16 123/55 (77) 98 01/17/20 04:00 30 01/17/20 03:19 64 21 30 01/17/20 01:20 64 25 30 01/17/20 00:00 98.7 75 16 95/64 (74) 99 01/17/20 00:00 Mechanical Ventilator 01/17/20 00:00 30 01/16/20 23:45 74 01/16/20 23:10 88 27 30 01/16/20 20:44 71 21 30 01/16/20 20:00 74 01/16/20 20:00 Mechanical Ventilator 01/16/20 20:00 97.7 91 16 93/65 (74) 98 01/16/20 20:00 30 01/16/20 18:59 74 25 30 I&O Intake and Output 01/16/20 01/17/20 19:00 07:00 Intake Total 578.688 ml 988.688 ml Output Total 600 ml 500 ml Balance -21.312 ml 488.688 ml Intake Free Water 300 ml IV Total 83.688 ml 83.688 ml Tube Feeding 495 ml 605 ml Output Urine Total 400 ml 400 ml Stool Total 200 ml 100 ml Dressing: saturated Cardiovascular: RSR Respiratory: clear, decreased breath sounds Abdomen: soft, non-tender, present bowel sounds Extremities: no edema, no tenderness, no cyanosis Laboratory Tests Test 01/16/20 21:58 01/17/20 02:55 01/17/20 06:24 01/17/20 11:51 POC Whole Blood Glucose Pending 87 MG/DL (74-106) 82 MG/DL (74-106) White Blood Count 13.0 K/UL (4.8-10.8) H Red Blood Count 3.27 M/UL (4.20-5.40) L Hemoglobin 10.4 G/DL (12.0-16.0) L Hematocrit 30.6 % (37.0-47.0) L Mean Corpuscular Volume 94 FL (80-99) Mean Corpuscular Hemoglobin 31.7 PG (27.0-31.0) H Mean Corpuscular Hemoglobin Concent 33.9 G/DL (32.0-36.0) Red Cell Distribution Width 15.2 % (11.6-14.8) H Platelet Count 314 K/UL (150-450) Mean Platelet Volume 6.5 FL (6.5-10.1) Neutrophils (%) (Auto) 67.5 % (45.0-75.0) Lymphocytes (%) (Auto) 13.1 % (20.0-45.0) L Monocytes (%) (Auto) 9.1 % (1.0-10.0) Eosinophils (%) (Auto) 9.8 % (0.0-3.0) H Basophils (%) (Auto) 0.5 % (0.0-2.0) Test 01/17/20 16:44 POC Whole Blood Glucose 91 MG/DL (74-106) Plan Problems: (1) Pneumonia (2) Sepsis Assessment & Plan: leukocytosis anemia lactic acidosis agree with GI recommend EGD planned for 12/31 hold feeding for now trend h/h monitor for bleeding no acute hemorrhage will be available in event needs exploration for hemostasis prbc as per heme thank you will follow with recs cont abx worsening wbc Pt presented on admission in emaciated state. Pt has tracheostomy and GT. NO skin concerns noted to skin under collar of trach. NO erythema or evidence of skin erosion at GT site. Pt noted to have scaly pimple-like rash with webbing noted to R and L axillae, undersides of both breasts, Bilat groin and lower back. Tracking and webbing noted to hands and feet. Pt restless and scratching at skin. Non-Blanching erythema without induration or fluctuance noted to R and L hips and trochanteric areas.Non-blanching erythema noted along spine. Non-Blanching erythema without induration noted to Sacrum. Non-Blanching erythema noted to R and L Malleoli and both heels. Tx.Plan: Please apply Cavilon Skin Barrier to each bony Prominences at risks for Skin Breakdown. Cover each area with Optifoam drsgs. Change every 7 days and prn. Apply Moisture Barrier Paste to Sacrum. Cover with Optifoam drsg. Change every 3 days and prn. Reposition at least every 2hours or as tolerated. Off-load heels with pillow. APM/EMELI Mattress overlay. improving cont current care plan There is marked enlargement of the third and lateral ventricles and extra axial CSF spaces, in particular the former. There is considerable periventricular deep white matter low-attenuation. Otherwise normal mobley-white differentiation. No acute hemorrhage or edema. No mass effect nor midline shift. Visualized orbits and sinuses are unremarkable. The calvarium is intact Impression: Third and lateral ventriculomegaly. Associated enlargement of the extra axial CSF spaces indicates that this is probably due to central volume loss, but the possibility of hydrocephalus should also be considered. At the degree of volume loss is considerably out of proportion to patient's age. Correlate with clinical history Periventricular deep white matter low-attenuation. Probably on the basis of microvascular ischemic change but given patient's age the possibility of demyelinating disease should be considered as well. Negative for acute intracranial bleed or mass effect (3) GI bleed (4) G tube feedings Assessment & Plan: DAILY ESTIMATED NEEDS: Needs based on Underweight, critical care 37.3kg 30-40 kcals/kg 1807-0340 total kcals 1.25-2 g protein/kg 47-75 g total protein 25-35 mL/kg 933-1306 total fluid mLs NUTRITION DIAGNOSIS: Increased kcal and pro needs r/t underweight status as evidenced by BMI 14.1, pt is 68% of ideal body weight w/ generalized severe wasting, trach and peg dep. CURRENT TF:Vital AF 1.2 @55 x20 hrs ENTERAL NUTRITION RECOMMENDATIONS: Vital AF 1.2 @ 55ml/hr x20 hrs to provide 1100ml 1320kcal 83g prot, 892ml free water - Rec to continue elemental TF formula while stool C-diff positive, +LBM - HOLD 1HR BEFORE AND AFTER SYNTHROID MEDS - Flush per MD. HOB over 30 degrees ADDITIONAL RECOMMENDATIONS: 1) Per SNF: 5'4" and 81# Maintain calibrated bed scale wts w/ added P200 mattress 2) Lytes daily madhav w/ loose stools, replete as needed 3) Skin integrity: Continue BRIAN VIA GT BID + Vit C 4) Accuchecks for Hypoglycemia 5) Add probiotics for stool C-diff+ . George Woods Jan 17, 2020 18:23
[2020-01-17 20:00] VITALS: BP 109/58
[2020-01-17] MEDS: OXcarbazepine 150mg tab ORAL SCH (21:59)
--- NOTE | 2020-01-17 23:07 | Psych Consult Progress Note ---
Psychiatry Progress Note Psychiatry Progress Note Subjective the pt is the same the pt attempts to pull out lines. awake confused Medications Current Medications Medications (Trade) Dose Ordered Sig/Villa Route PRN Reason Start Time Stop Time Status Last Admin Dose Admin Acetaminophen (Tylenol) 650 mg Q6H PRN GT Temp >100.5 01/01/20 11:00 01/31/20 10:59 01/15/20 08:18 Ascorbic Acid (Vitamin C) 500 mg DAILY ORAL 01/01/20 09:00 01/31/20 08:59 01/17/20 08:25 Dopamine HCl/ Dextrose 250 ml @ 6.974 mls/ hr Q24H IV 01/13/20 19:00 04/12/20 18:59 01/17/20 17:16 Famotidine (Pepcid) 20 mg BID ORAL 01/10/20 18:00 04/09/20 17:59 01/17/20 17:10 Fidaxomicin (Dificid) 200 mg EVERY 12 HOURS ORAL 01/16/20 21:00 01/26/20 09:01 01/17/20 21:59 Fluconazole (Diflucan) 100 mg DAILY GT 01/15/20 11:00 01/22/20 10:59 01/17/20 08:26 Gabapentin (Neurontin) 600 mg TID GT 01/08/20 13:00 02/07/20 12:59 01/17/20 17:13 Haloperidol Lactate (Haldol) 5 mg Q6H PRN IM Agitation 01/01/20 23:30 02/15/20 23:29 01/17/20 12:04 Levetiracetam (Keppra) 1,500 mg Q12HR GT 01/07/20 21:00 02/07/20 08:59 01/17/20 21:58 Levothyroxine Sodium (Synthroid) 75 mcg DAILY ORAL 01/01/20 09:00 01/31/20 08:59 01/17/20 08:26 Metronidazole (Flagyl) 500 mg Q8HR ORAL 01/16/20 14:00 01/23/20 13:59 01/17/20 21:58 Midodrine (Pro-Amatine) 2.5 mg THREE TIMES A DAY ORAL 01/07/20 09:00 04/06/20 08:59 01/17/20 17:10 Multivitamins Therapeutic (Therapeutic Multivitamin) 1 ea DAILY ORAL 01/01/20 09:00 01/31/20 08:59 01/17/20 08:25 Ondansetron HCl (Zofran) 4 mg Q6H PRN ORAL Nausea & Vomiting 12/31/19 21:00 01/30/20 20:59 Oxcarbazepine (TrileptaL) 300 mg BEDTIME ORAL 01/10/20 21:00 02/07/20 20:59 01/17/20 21:59 Potassium Chloride (K-Dur) 20 meq TWICE A DAY GT 01/11/20 09:00 04/10/20 08:59 01/17/20 17:10 Thiamine HCl (Vitamin B1) 100 mg DAILY ORAL 01/01/20 09:00 01/31/20 08:59 01/17/20 08:25 Neurological/Psychiatric: Denies: no symptoms, anxiety, depressed, emotional problems, headache, numbness, paresthesia, pre-existing deficit, seizure, tingling, tremors, weakness, other Allergies: Coded Allergies: CARBAMAZEPINE (Verified Allergy, Unknown, 12/31/19) LORAZEPAM (Verified Allergy, Unknown, 12/31/19) Objective Data Height (Feet): 5 Height (Inches): 1.00 Weight (Pounds): 80 General Appearance: lethargic Additional Comments: waxing and waning consciousness. Affect is flat. Thought process, there is a paucity of thought content. Thought content, no suicidal or homicidal ideation. Cognition is impaired. Insight and judgment is impaired. Assessment/Plan [place] I: tegan larry Status: stable, other - Patient is now hypotensive before over 46 she will receive 500 cc of normal saline bolus to be repeated blood pressure remained below 90 further management will be decided following the boluses treatment repeat laboratory tests will be done in a.m. GEM MCKAY MD Status Narrative tegan larry Assessment/Plan: Rhonda Lagos MD Jan 17, 2020 23:06
--- NOTE | 2020-01-17 23:10 | General Progress Note ---
Assessment/Plan Status: stable, other - Patient is now hypotensive before over 46 she will receive 500 cc of normal saline bolus to be repeated blood pressure remained below 90 further management will be decided following the boluses treatment repeat laboratory tests will be done in kori BISHOP MD Status Narrative Patient is now being treated for C. difficile by ID physician after the failure of vancomycin in the edition patient take fluconazole for pyuria and leukocytosis as well as metronidazole 500 mg 3 times daily she remains on dopamine 5 mcg/min which solved the issue of blood pressure and bradycardia we are still waiting to the multiple cultures that were taken yesterday after the patient spiked fever on January 14 repeat laboratory tests will be done in kori BISHOP MD Assessment/Plan: Glenny Harrison Subjective Constitutional: Reports: other - Patient is awake alert and febrile and intermittently aggressive and today he ate 1 of the nursing staff. Chest HEENT: Reports: no symptoms Cardiovascular: Reports: other - No chest pain shortness of breath palpitation or dizziness Respiratory: Reports: other - No cough wheezing or expectoration Gastrointestinal/Abdominal: Reports: no symptoms, poor appetite Neurologic/Psychiatric: Reports: weakness Endocrine: Reports: no symptoms Hematologic/Lymphatic: Reports: no symptoms Allergies: Coded Allergies: CARBAMAZEPINE (Verified Allergy, Unknown, 12/31/19) LORAZEPAM (Verified Allergy, Unknown, 12/31/19) Objective Last 24 Hour Vital Signs Date Time Temp Pulse Resp B/P (MAP) Pulse Ox O2 Delivery O2 Flow Rate FiO2 01/17/20 21:14 62 18 30 01/17/20 20:00 57 01/17/20 18:55 64 28 30 01/17/20 17:25 56 26 30 01/17/20 17:16 107/49 01/17/20 16:00 Mechanical Ventilator 01/17/20 16:00 30 01/17/20 16:00 53 01/17/20 16:00 97.7 59 20 107/49 (68) 98 01/17/20 14:39 60 19 30 01/17/20 12:48 56 19 30 01/17/20 12:00 Mechanical Ventilator 01/17/20 12:00 97.7 75 22 123/72 (89) 100 01/17/20 12:00 30 01/17/20 12:00 54 01/17/20 10:36 51 16 30 01/17/20 09:45 100 01/17/20 09:30 68 25 30 01/17/20 08:00 Mechanical Ventilator 01/17/20 08:00 59 01/17/20 08:00 30 01/17/20 08:00 97.7 64 21 126/68 (87) 100 01/17/20 07:23 63 24 30 01/17/20 05:13 70 22 30 01/17/20 04:00 Mechanical Ventilator 01/17/20 04:00 57 01/17/20 04:00 98.3 65 16 123/55 (77) 98 01/17/20 04:00 30 01/17/20 03:19 64 21 30 01/17/20 01:20 64 25 30 01/17/20 00:00 98.7 75 16 95/64 (74) 99 01/17/20 00:00 Mechanical Ventilator 01/17/20 00:00 30 01/16/20 23:45 74 01/16/20 23:10 88 27 30 Intake and Output 01/16/20 01/17/20 19:00 07:00 Intake Total 578.688 ml 988.688 ml Output Total 600 ml 500 ml Balance -21.312 ml 488.688 ml Intake Free Water 300 ml IV Total 83.688 ml 83.688 ml Tube Feeding 495 ml 605 ml Output Urine Total 400 ml 400 ml Stool Total 200 ml 100 ml Laboratory Tests 01/17/20 02:55: White Blood Count 13.0H, Red Blood Count 3.27L, Hemoglobin 10.4L, Hematocrit 30.6L, Mean Corpuscular Volume 94, Mean Corpuscular Hemoglobin 31.7H, Mean Corpuscular Hemoglobin Concent 33.9, Red Cell Distribution Width 15.2H, Platelet Count 314, Mean Platelet Volume 6.5, Neutrophils (%) (Auto) 67.5, Lymphocytes (%) (Auto) 13.1L, Monocytes (%) (Auto) 9.1, Eosinophils (%) (Auto) 9.8H, Basophils (%) (Auto) 0.5 01/17/20 06:24: POC Whole Blood Glucose 87 01/17/20 11:51: POC Whole Blood Glucose 82 01/17/20 16:44: POC Whole Blood Glucose 91 Height (Feet): 5 Height (Inches): 1.00 Weight (Pounds): 80 General Appearance: no apparent distress, alert, lethargic EENT: other - Mucous members membranes are moist no sinus tenderness Neck: supple, other - No goiter no mass lymphadenopathy Cardiovascular: normal rate, regular rhythm, no gallop/murmur, no JVD Respiratory/Chest: lungs clear, normal breath sounds, no respiratory distress, respiratory distress Abdomen: non tender, soft, no mass Extremities: non-tender, other - Diffuse severe muscle wasting Neurologic: alert, aphasia - aphasic, other - Eye contact showed attention span no attempt to communicate with psychotic chewing or fail bedsheet Glenny Bishop MD Jan 17, 2020 23:10
[2020-01-18] VITALS: BP 97/57
[2020-01-18 04:00] VITALS: BP 97/58
[2020-01-18] MEDS: metroNIDAZOLE 500mg tab ORAL SCH ×3 (05:30→21:25)
[2020-01-18 05:33] LABS: ALANINE AMINOTRANSFERASE 30 U/L (12-78); ALBUMIN/GLOBULIN RATIO 0.6 (1.0-2.7); ALKALINE PHOSPHATASE 126 U/L (46-116); ANION GAP 7 mmol/L (5-15); ASPARTATE AMINO TRANSFERASE 23 U/L (15-37); BILIRUBIN,TOTAL 0.2 MG/DL (0.2-1.0); BLOOD UREA NITROGEN 25 mg/dL (7-18); CALCIUM 9.1 MG/DL (8.5-10.1); CARBON DIOXIDE 29 MMOL/L (21-32); CHLORIDE 102 MMOL/L (98-107); CREATININE 0.5 MG/DL (0.55-1.30); PHOSPHORUS 3.7 MG/DL (2.5-4.9); POTASSIUM 4.4 MMOL/L (3.5-5.1); SODIUM 138 MMOL/L (136-145)
--- NOTE | 2020-01-18 07:06 | Hematology/Onc Progress Note ---
Assessment/Plan Assessment/Plan # Thrombocytopenia med related v labs error --> plt trend 167-->61-->227 --> meds have been reviewed --> no hep or lovenox (if less than 50k plt) # Anemia rule out underlying gi bleed --> Dr. Carrillo has been consulted-->endosco gastric ulceration --> trend hgb 7-->7.4-->7.9-->8.1->9.6-->8.5->9.1-->10-->11--.10.3 --> anemia panel ordered-->reviewed --> prn transfusion --> protonix started # Leukocytosis is likely related to pna on imaging --> abx has been started --> if wbc worsens, consider abx vanc/zosyn--> ceftriaxone-->vanc->fluc/flagyl/ vanc-->flagyl/fidoxomicin --> smear is noted --> wbc 25-->15-->14-->16->7.6-->12-->20 --> pressors prn # Sepsis --> on abx for pna --> pressors as needed # Pneumonia --> pulm, Dr. 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, will follow Subjective HEENT: Denies: no symptoms, eye pain, blurred vision, tearing, double vision, ear pain, ear discharge, nose pain, nose congestion, throat pain, throat swelling, mouth pain, mouth swelling, other Cardiovascular: Denies: no symptoms, chest pain, edema, irregular heart rate, lightheadedness, palpitations, syncope, other Respiratory: Denies: no symptoms, cough, shortness of breath, SOB with excertion, SOB at rest, sputum, wheezing, other Gastrointestinal/Abdominal: Denies: no symptoms, abdomen distended, abdominal pain, black stools, tarry stools, blood in stool, constipated, diarrhea, difficulty swallowing, nausea, poor appetite, poor fluid intake, rectal bleeding , vomiting, other Genitourinary: Denies: no symptoms, burning, discharge, frequency, flank pain, hematuria, incontinence, pain, urgency, other Neurologic/Psychiatric: Denies: no symptoms, anxiety, depressed, emotional problems, headache, numbness, paresthesia, pre-existing deficit, seizure, tingling, tremors, weakness, other Endocrine: Denies: no symptoms, excessive sweating, flushing, intolerance to cold, intolerance to heat, increased hunger, increased thirst, increased urine, unexplained weight gain, unexplained weight loss, other Allergies: Coded Allergies: CARBAMAZEPINE (Verified Allergy, Unknown, 12/31/19) LORAZEPAM (Verified Allergy, Unknown, 12/31/19) Subjective 01/01 altered, trach, no bleedin wbc improved on abx, seen by gi 01/02 egd study noted, also with plts 61k, have vitaly Armendariz Rn, will recheck cbc 01/03 remains agitated, vitaly rn, no bleeding, cbc noted as well as id recs 01/04 on vent, with melena overnight, no bleeding, vitaly rn, labs reviewed 01/06 on vent, remains agitated, no bleeding, vitaly rn, smear is noted 01/07 on vent, restless, asymptomatic, noncooperative 01/[address] John obtained, reviewed, meds adjusted, eeg pending 01/09 labs noted, no bleeding, ativan has been discontinued, meds reviewed 01/10 trach to vent, agitated, with wrist restraints, no major changes, no bleeding 01/11 labs are reviewed, on trach to vent, no bleeding, agitated overnight, no complaints 01/13 labs noted, no bleeding, is on vent/trach, no bleeding, vitaly rn, labs are noted 01/14 labs are noted, no bleeding, remains on v/t, remains agitated, no bleeding 01/15 is c.diff positive, wbc higher at 21k, labs noted, on abx, reviewed gi, id recs 01/16 remains on vent, wbc is improved, in sr, as abx per id 01/17 recieved dopamine, tube feeds, on soft restraints, no bleeding, vitaly longoria Objective Objective Current Medications Medications (Trade) Dose Ordered Sig/Villa Route PRN Reason Start Time Stop Time Status Last Admin Dose Admin Acetaminophen (Tylenol) 650 mg Q6H PRN GT Temp >100.5 01/01/20 11:00 01/31/20 10:59 01/15/20 08:18 Ascorbic Acid (Vitamin C) 500 mg DAILY ORAL 01/01/20 09:00 01/31/20 08:59 01/17/20 08:25 Dopamine HCl/ Dextrose 250 ml @ 6.974 mls/ hr Q24H IV 01/13/20 19:00 04/12/20 18:59 01/17/20 17:16 Famotidine (Pepcid) 20 mg BID ORAL 01/10/20 18:00 04/09/20 17:59 01/17/20 17:10 Fidaxomicin (Dificid) 200 mg EVERY 12 HOURS ORAL 01/16/20 21:00 01/26/20 09:01 01/17/20 21:59 Fluconazole (Diflucan) 100 mg DAILY GT 01/15/20 11:00 01/22/20 10:59 01/17/20 08:26 Gabapentin (Neurontin) 600 mg TID GT 01/08/20 13:00 02/07/20 12:59 01/17/20 17:13 Haloperidol Lactate (Haldol) 5 mg Q6H PRN IM Agitation 01/01/20 23:30 02/15/20 23:29 01/17/20 12:04 Levetiracetam (Keppra) 1,500 mg Q12HR GT 01/07/20 21:00 02/07/20 08:59 01/17/20 21:58 Levothyroxine Sodium (Synthroid) 75 mcg DAILY ORAL 01/01/20 09:00 01/31/20 08:59 01/17/20 08:26 Metronidazole (Flagyl) 500 mg Q8HR ORAL 01/16/20 14:00 01/23/20 13:59 01/18/20 05:30 Midodrine (Pro-Amatine) 2.5 mg THREE TIMES A DAY ORAL 01/07/20 09:00 04/06/20 08:59 01/17/20 17:10 Multivitamins Therapeutic (Therapeutic Multivitamin) 1 ea DAILY ORAL 01/01/20 09:00 01/31/20 08:59 01/17/20 08:25 Ondansetron HCl (Zofran) 4 mg Q6H PRN ORAL Nausea & Vomiting 12/31/19 21:00 01/30/20 20:59 Oxcarbazepine (TrileptaL) 300 mg BEDTIME ORAL 01/10/20 21:00 02/07/20 20:59 01/17/20 21:59 Potassium Chloride (K-Dur) 20 meq TWICE A DAY GT 01/11/20 09:00 04/10/20 08:59 01/17/20 17:10 Thiamine HCl (Vitamin B1) 100 mg DAILY ORAL 01/01/20 09:00 01/31/20 08:59 01/17/20 08:25 Last 24 Hour Vital Signs Date Time Temp Pulse Resp B/P (MAP) Pulse Ox O2 Delivery O2 Flow Rate FiO2 01/18/20 05:00 48 28 30 01/18/20 04:00 66 01/18/20 04:00 97.0 65 20 97/58 (71) 100 01/18/20 04:00 Mechanical Ventilator 01/18/20 04:00 30 01/18/20 03:15 66 24 30 01/18/20 01:04 59 24 30 01/18/20 00:00 Mechanical Ventilator 01/18/20 00:00 97.9 59 20 97/57 (70) 100 01/18/20 00:00 63 01/18/20 00:00 30 01/17/20 22:58 74 30 30 01/17/20 21:14 62 18 30 01/17/20 20:00 57 01/17/20 20:00 97.7 61 20 109/58 (75) 100 01/17/20 20:00 Mechanical Ventilator 01/17/20 18:55 64 28 30 01/17/20 17:25 56 26 30 01/17/20 17:16 107/49 01/17/20 16:00 Mechanical Ventilator 01/17/20 16:00 30 01/17/20 16:00 53 01/17/20 16:00 97.7 59 20 107/49 (68) 98 01/17/20 14:39 60 19 30 01/17/20 12:48 56 19 30 01/17/20 12:00 Mechanical Ventilator 01/17/20 12:00 97.7 75 22 123/72 (89) 100 01/17/20 12:00 30 01/17/20 12:00 54 9/2/20 10:36 51 16 30 01/17/20 09:45 100 01/17/20 09:30 68 25 30 01/17/20 08:00 Mechanical Ventilator 01/17/20 08:00 59 01/17/20 08:00 30 01/17/20 08:00 97.7 64 21 126/68 (87) 100 01/17/20 07:23 63 24 30 01/17/20 05:13 70 22 30 01/17/20 04:00 Mechanical Ventilator 01/17/20 04:00 57 01/17/20 04:00 98.3 65 16 123/55 (77) 98 01/17/20 04:00 30 01/17/20 03:19 64 21 30 01/17/20 01:20 64 25 30 01/17/20 00:00 98.7 75 16 95/64 (74) 99 01/17/20 00:00 Mechanical Ventilator 01/17/20 00:00 30 01/16/20 23:45 74 01/16/20 23:10 88 27 30 01/16/20 20:44 71 21 30 01/16/20 20:00 74 01/16/20 20:00 Mechanical Ventilator 01/16/20 20:00 97.7 91 16 93/65 (74) 98 01/16/20 20:00 30 01/16/20 18:59 74 25 30 01/16/20 17:05 85 29 30 01/16/20 16:00 97.5 69 16 120/76 (91) 99 01/16/20 16:00 30 01/16/20 16:00 Mechanical Ventilator 01/16/20 15:32 74 01/16/20 15:28 69 30 30 01/16/20 13:10 67 32 30 01/16/20 12:00 Mechanical Ventilator 01/16/20 12:00 82 01/16/20 12:00 97.8 71 17 104/67 (79) 100 01/16/20 12:00 30 01/16/20 10:50 78 20 30 01/16/20 09:39 94/61 01/16/20 09:15 63 29 30 01/16/20 09:10 100 01/16/20 08:00 98.1 79 18 91/64 (73) 100 01/16/20 08:00 Mechanical Ventilator 01/16/20 08:00 30 01/16/20 07:51 75 Intake and Output 01/17/20 01/18/20 19:00 07:00 Intake Total 707.766 ml 798.688 ml Output Total 500 ml 425 ml Balance 207.766 ml 373.688 ml Intake Free Water 150 ml 110 ml IV Total 62.766 ml 83.688 ml Tube Feeding 495 ml 605 ml Output Urine Total 400 ml 400 ml Stool Total 100 ml 25 ml Labs Test 01/15/20 08:04 01/15/20 11:09 01/15/20 16:48 01/15/20 22:00 Arterial Blood pH 7.446 (7.350-7.450) Arterial Blood Partial Pressure CO2 36.5 mmHg (35.0-45.0) Arterial Blood Partial Pressure O2 84.9 mmHg (75.0-100.0) Arterial Blood HCO3 24.6 mmol/L (22.0-26.0) Arterial Blood Oxygen Saturation 96.5 % (95-100) Arterial Blood Base Excess 0.7 (-2-2) Tacos Test Positive POC Whole Blood Glucose 97 MG/DL (74-106) Test 01/16/20 03:30 01/16/20 06:40 01/16/20 08:55 01/16/20 11:21 White Blood Count 20.6 K/UL (4.8-10.8) Red Blood Count 3.59 M/UL (4.20-5.40) Hemoglobin 11.1 G/DL (12.0-16.0) Hematocrit 35.5 % (37.0-47.0) Mean Corpuscular Volume 99 FL (80-99) Mean Corpuscular Hemoglobin 31.1 PG (27.0-31.0) Mean Corpuscular Hemoglobin Concent 31.4 G/DL (32.0-36.0) Red Cell Distribution Width 16.2 % (11.6-14.8) Platelet Count 355 K/UL (150-450) Mean Platelet Volume 5.8 FL (6.5-10.1) Neutrophils (%) (Auto) % (45.0-75.0) Lymphocytes (%) (Auto) % (20.0-45.0) Monocytes (%) (Auto) % (1.0-10.0) Eosinophils (%) (Auto) % (0.0-3.0) Basophils (%) (Auto) % (0.0-2.0) Differential Total Cells Counted 100 Neutrophils % (Manual) 67 % (45-75) Lymphocytes % (Manual) 17 % (20-45) Monocytes % (Manual) 3 % (1-10) Eosinophils % (Manual) 5 % (0-3) Basophils % (Manual) 0 % (0-2) Band Neutrophils 8 % (0-8) Platelet Estimate Adequate Platelet Morphology Normal Hypochromasia 1+ Anisocytosis 1+ Macrocytosis 1+ POC Whole Blood Glucose 90 MG/DL (74-106) 100 MG/DL (74-106) Sodium Level 136 MMOL/L (136-145) Potassium Level 4.8 MMOL/L (3.5-5.1) Chloride Level 100 MMOL/L (98-107) Carbon Dioxide Level 29 MMOL/L (21-32) Anion Gap 7 mmol/L (5-15) Blood Urea Nitrogen 23 mg/dL (7-18) Creatinine 0.4 MG/DL (0.55-1.30) Estimat Glomerular Filtration Rate > 60 mL/min (>60) Glucose Level 100 MG/DL (74-106) Calcium Level 10.0 MG/DL (8.5-10.1) Total Bilirubin 0.4 MG/DL (0.2-1.0) Aspartate Amino Transf (AST/SGOT) 25 U/L (15-37) Alanine Aminotransferase (ALT/SGPT) 31 U/L (12-78) Alkaline Phosphatase 121 U/L (46-116) Total Protein 7.9 G/DL (6.4-8.2) Albumin 3.1 G/DL (3.4-5.0) Globulin 4.8 g/dL Albumin/Globulin Ratio 0.6 (1.0-2.7) Test 01/16/20 16:28 01/16/20 21:58 01/17/20 02:55 01/17/20 06:24 POC Whole Blood Glucose 91 MG/DL (74-106) 87 MG/DL (74-106) White Blood Count 13.0 K/UL (4.8-10.8) Red Blood Count 3.27 M/UL (4.20-5.40) Hemoglobin 10.4 G/DL (12.0-16.0) Hematocrit 30.6 % (37.0-47.0) Mean Corpuscular Volume 94 FL (80-99) Mean Corpuscular Hemoglobin 31.7 PG (27.0-31.0) Mean Corpuscular Hemoglobin Concent 33.9 G/DL (32.0-36.0) Red Cell Distribution Width 15.2 % (11.6-14.8) Platelet Count 314 K/UL (150-450) Mean Platelet Volume 6.5 FL (6.5-10.1) Neutrophils (%) (Auto) 67.5 % (45.0-75.0) Lymphocytes (%) (Auto) 13.1 % (20.0-45.0) Monocytes (%) (Auto) 9.1 % (1.0-10.0) Eosinophils (%) (Auto) 9.8 % (0.0-3.0) Basophils (%) (Auto) 0.5 % (0.0-2.0) Test 01/17/20 11:51 01/17/20 16:44 01/18/20 03:25 POC Whole Blood Glucose 82 MG/DL (74-106) 91 MG/DL (74-106) Sodium Level 138 MMOL/L (136-145) Potassium Level 4.4 MMOL/L (3.5-5.1) Chloride Level 102 MMOL/L (98-107) Carbon Dioxide Level 29 MMOL/L (21-32) Anion Gap 7 mmol/L (5-15) Blood Urea Nitrogen 25 mg/dL (7-18) Creatinine 0.5 MG/DL (0.55-1.30) Estimat Glomerular Filtration Rate > 60 mL/min (>60) Glucose Level 87 MG/DL (74-106) Calcium Level 9.1 MG/DL (8.5-10.1) Phosphorus Level 3.7 MG/DL (2.5-4.9) Magnesium Level 1.8 MG/DL (1.8-2.4) Total Bilirubin 0.2 MG/DL (0.2-1.0) Aspartate Amino Transf (AST/SGOT) 23 U/L (15-37) Alanine Aminotransferase (ALT/SGPT) 30 U/L (12-78) Alkaline Phosphatase 126 U/L (46-116) Total Protein 7.8 G/DL (6.4-8.2) Albumin 3.0 G/DL (3.4-5.0) Globulin 4.8 g/dL Albumin/Globulin Ratio 0.6 (1.0-2.7) Height (Feet): 5 Height (Inches): 1.00 Weight (Pounds): 80 Objective Vital Signs General Appearance: ++ cachectic, chronically ill HEENT: normocephalic, atraumatic ++ trach Resp: other -. vent ++ Cardiovascular: regular rate, rhythm, no edema Gastrointestinal: gtube in place, without erythema Rectal: other - Hemoccult positive [place]: back normal, gait/station normal, non-tender Lymphatic: no adenopathy Baltazar Cortes MD Jan 18, 2020 07:06
[2020-01-18 08:00] VITALS: BP 91/50
[2020-01-18] MEDS: levETIRAcetam 500mg/5ml Liquid GT SCH ×2 (08:18→21:24)
[2020-01-18] MEDS: Thiamine 100mg tab ORAL SCH (08:18)
[2020-01-18] MEDS: Gabapentin 300 MG/6 ML Soln GT SCH ×3 (08:18→18:00)
[2020-01-18] MEDS: Ascorbic Acid 500mg tab ORAL SCH (08:18)
[2020-01-18] MEDS: Multivitamin w/Minerals tab ORAL SCH (08:18)
[2020-01-18] MEDS: Fluconazole 100mg tab GT SCH (08:19)
--- NOTE | 2020-01-18 09:49 | Surgery Progress Note ---
Surgery Progress Note Subjective Symptoms: improved Additional Comments wbc 13k trending down comfortable no n/v exam stable Objective Last 24 Hour Vital Signs Date Time Temp Pulse Resp B/P (MAP) Pulse Ox O2 Delivery O2 Flow Rate FiO2 01/18/20 08:43 94 31 30 01/18/20 08:00 97.5 72 20 91/50 (64) 100 01/18/20 07:27 83 30 30 01/18/20 07:27 100 01/18/20 05:00 48 28 30 01/18/20 04:00 66 01/18/20 04:00 97.0 65 20 97/58 (71) 100 01/18/20 04:00 Mechanical Ventilator 01/18/20 04:00 30 01/18/20 03:15 66 24 30 01/18/20 01:04 59 24 30 01/18/20 00:00 Mechanical Ventilator 01/18/20 00:00 97.9 59 20 97/57 (70) 100 01/18/20 00:00 63 01/18/20 00:00 30 01/17/20 22:58 74 30 30 01/17/20 21:14 62 18 30 01/17/20 20:00 57 01/17/20 20:00 97.7 61 20 109/58 (75) 100 01/17/20 20:00 Mechanical Ventilator 01/17/20 18:55 64 28 30 01/17/20 17:25 56 26 30 01/17/20 17:16 107/49 01/17/20 16:00 Mechanical Ventilator 01/17/20 16:00 30 01/17/20 16:00 53 01/17/20 16:00 97.7 59 20 107/49 (68) 98 01/17/20 14:39 60 19 30 01/17/20 12:48 56 19 30 01/17/20 12:00 Mechanical Ventilator 01/17/20 12:00 97.7 75 22 123/72 (89) 100 01/17/20 12:00 30 01/17/20 12:00 54 01/17/20 10:36 51 16 30 I&O Intake and Output 01/17/20 01/18/20 19:00 07:00 Intake Total 707.766 ml 798.688 ml Output Total 500 ml 425 ml Balance 207.766 ml 373.688 ml Intake Free Water 150 ml 110 ml IV Total 62.766 ml 83.688 ml Tube Feeding 495 ml 605 ml Output Urine Total 400 ml 400 ml Stool Total 100 ml 25 ml Dressing: other Wound: other Cardiovascular: RSR Respiratory: decreased breath sounds Abdomen: soft, non-tender, present bowel sounds Extremities: no edema, no tenderness, no cyanosis Laboratory Tests Test 01/17/20 11:51 01/17/20 16:44 01/18/20 03:25 POC Whole Blood Glucose 82 MG/DL (74-106) 91 MG/DL (74-106) Sodium Level 138 MMOL/L (136-145) Potassium Level 4.4 MMOL/L (3.5-5.1) Chloride Level 102 MMOL/L (98-107) Carbon Dioxide Level 29 MMOL/L (21-32) Anion Gap 7 mmol/L (5-15) Blood Urea Nitrogen 25 mg/dL (7-18) H Creatinine 0.5 MG/DL (0.55-1.30) L Estimat Glomerular Filtration Rate > 60 mL/min (>60) Glucose Level 87 MG/DL (74-106) Calcium Level 9.1 MG/DL (8.5-10.1) Phosphorus Level 3.7 MG/DL (2.5-4.9) Magnesium Level 1.8 MG/DL (1.8-2.4) Total Bilirubin 0.2 MG/DL (0.2-1.0) Aspartate Amino Transf (AST/SGOT) 23 U/L (15-37) Alanine Aminotransferase (ALT/SGPT) 30 U/L (12-78) Alkaline Phosphatase 126 U/L (46-116) H Total Protein 7.8 G/DL (6.4-8.2) Albumin 3.0 G/DL (3.4-5.0) L Globulin 4.8 g/dL Albumin/Globulin Ratio 0.6 (1.0-2.7) L Plan Problems: (1) Pneumonia (2) Sepsis Assessment & Plan: leukocytosis anemia lactic acidosis agree with GI recommend EGD planned for 12/31 hold feeding for now trend h/h monitor for bleeding no acute hemorrhage will be available in event needs exploration for hemostasis prbc as per heme thank you will follow with recs cont abx worsening wbc wbc trending down comfortable appearing today no n/v Pt presented on admission in emaciated state. Pt has tracheostomy and GT. NO skin concerns noted to skin under collar of trach. NO erythema or evidence of skin erosion at GT site. Pt noted to have scaly pimple-like rash with webbing noted to R and L axillae, undersides of both breasts, Bilat groin and lower back. Tracking and webbing noted to hands and feet. Pt restless and scratching at skin. Non-Blanching erythema without induration or fluctuance noted to R and L hips and trochanteric areas.Non-blanching erythema noted along spine. Non-Blanching erythema without induration noted to Sacrum. Non-Blanching erythema noted to R and L Malleoli and both heels. Tx.Plan: Please apply Cavilon Skin Barrier to each bony Prominences at risks for Skin Breakdown. Cover each area with Optifoam drsgs. Change every 7 days and prn. Apply Moisture Barrier Paste to Sacrum. Cover with Optifoam drsg. Change every 3 days and prn. Reposition at least every 2hours or as tolerated. Off-load heels with pillow. APM/EMELI Mattress overlay. improving cont current care plan There is marked enlargement of the third and lateral ventricles and extra axial CSF spaces, in particular the former. There is considerable periventricular deep white matter low-attenuation. Otherwise normal mobley-white differentiation. No acute hemorrhage or edema. No mass effect nor midline shift. Visualized orbits and sinuses are unremarkable. The calvarium is intact Impression: Third and lateral ventriculomegaly. Associated enlargement of the extra axial CSF spaces indicates that this is probably due to central volume loss, but the possibility of hydrocephalus should also be considered. At the degree of volume loss is considerably out of proportion to patient's age. Correlate with clinical history Periventricular deep white matter low-attenuation. Probably on the basis of microvascular ischemic change but given patient's age the possibility of demyelinating disease should be considered as well. Negative for acute intracranial bleed or mass effect (3) GI bleed (4) G tube feedings Assessment & Plan: DAILY ESTIMATED NEEDS: Needs based on Underweight, critical care 37.3kg 30-40 kcals/kg 7929-5247 total kcals 1.25-2 g protein/kg 47-75 g total protein 25-35 mL/kg [phone] total fluid mLs NUTRITION DIAGNOSIS: Increased kcal and pro needs r/t underweight status as evidenced by BMI 14.1, pt is 68% of ideal body weight w/ generalized severe wasting, trach and peg dep. CURRENT TF:Vital AF 1.2 @55 x20 hrs ENTERAL NUTRITION RECOMMENDATIONS: Vital AF 1.2 @ 55ml/hr x20 hrs to provide 1100ml 1320kcal 83g prot, 892ml free water - Rec to continue elemental TF formula while stool C-diff positive, +LBM - HOLD 1HR BEFORE AND AFTER SYNTHROID MEDS - Flush per MD. HOB over 30 degrees ADDITIONAL RECOMMENDATIONS: 1) Per SNF: 5'4" and 81# Maintain calibrated bed scale wts w/ added P200 mattress 2) Lytes daily madhav w/ loose stools, replete as needed 3) Skin integrity: Continue BRIAN VIA GT BID + Vit C 4) Accuchecks for Hypoglycemia 5) Add probiotics for stool C-diff+ . George Woods Jan 18, 2020 09:49
[2020-01-18 12:00] VITALS: BP 120/56
--- NOTE | 2020-01-18 12:35 | General Progress Note ---
Assessment/Plan Problem List: (1) G tube feedings ICD Codes: Z93.1 - Gastrostomy status SNOMED: 374489017, 376079709, [id number] (2) GI bleed ICD Codes: K92.2 - Gastrointestinal hemorrhage, unspecified SNOMED: [id number] (3) Sepsis ICD Codes: A41.9 - Sepsis, unspecified organism SNOMED: 17931031 (4) Pneumonia ICD Codes: J18.9 - Pneumonia, unspecified organism SNOMED: 951276902 Status: stable, other - Patient is now hypotensive before over 46 she will receive 500 cc of normal saline bolus to be repeated blood pressure remained below 90 further management will be decided following the boluses treatment repeat laboratory tests will be done in a.m. GEM MCKAY MD Assessment/Plan: s/p EGD gastric ulcer no recurrent bleed G TF monitor H&H C. Diff positive off ppi po vanco pepcid will fu Subjective ROS Limited/Unobtainable: No Allergies: Coded Allergies: CARBAMAZEPINE (Verified Allergy, Unknown, 12/31/19) LORAZEPAM (Verified Allergy, Unknown, 12/31/19) Objective Last 24 Hour Vital Signs Date Time Temp Pulse Resp B/P (MAP) Pulse Ox O2 Delivery O2 Flow Rate FiO2 01/18/20 11:20 74 19 30 01/18/20 08:43 94 31 30 01/18/20 08:00 Mechanical Ventilator 01/18/20 08:00 30 01/18/20 08:00 73 01/18/20 08:00 114/60 01/18/20 08:00 97.5 72 20 91/50 (64) 100 01/18/20 07:27 83 30 30 01/18/20 07:27 100 01/18/20 07:00 91/50 01/18/20 05:00 48 28 30 01/18/20 04:00 66 01/18/20 04:00 97.0 65 20 97/58 (71) 100 01/18/20 04:00 Mechanical Ventilator 01/18/20 04:00 30 01/18/20 03:15 66 24 30 01/18/20 01:04 59 24 30 01/18/20 00:00 Mechanical Ventilator 01/18/20 00:00 97.9 59 20 97/57 (70) 100 01/18/20 00:00 63 01/18/20 00:00 30 01/17/20 22:58 74 30 30 01/17/20 21:14 62 18 30 01/17/20 20:00 57 01/17/20 20:00 97.7 61 20 109/58 (75) 100 01/17/20 20:00 Mechanical Ventilator 01/17/20 18:55 64 28 30 01/17/20 17:25 56 26 30 01/17/20 17:16 107/49 01/17/20 16:00 Mechanical Ventilator 01/17/20 16:00 30 01/17/20 16:00 53 01/17/20 16:00 97.7 59 20 107/49 (68) 98 01/17/20 14:39 60 19 30 01/17/20 12:48 56 19 30 Intake and Output 01/17/20 01/18/20 19:00 07:00 Intake Total 707.766 ml 805.662 ml Output Total 500 ml 425 ml Balance 207.766 ml 380.662 ml Intake Free Water 150 ml 110 ml IV Total 62.766 ml 90.662 ml Tube Feeding 495 ml 605 ml Output Urine Total 400 ml 400 ml Stool Total 100 ml 25 ml Laboratory Tests 01/17/20 16:44: POC Whole Blood Glucose 91 01/18/20 03:25: Sodium Level 138, Potassium Level 4.4, Chloride Level 102, Carbon Dioxide Level 29, Anion Gap 7, Blood Urea Nitrogen 25H, Creatinine 0.5L, Estimat Glomerular Filtration Rate > 60, Glucose Level 87, Calcium Level 9.1, Phosphorus Level 3.7 , Magnesium Level 1.8, Total Bilirubin 0.2, Aspartate Amino Transf (AST/SGOT) 23 , Alanine Aminotransferase (ALT/SGPT) 30, Alkaline Phosphatase 126H, Total Protein 7.8, Albumin 3.0L, Globulin 4.8, Albumin/Globulin Ratio 0.6L 01/18/20 11:40: POC Whole Blood Glucose 86 Height (Feet): 5 Height (Inches): 1.00 Weight (Pounds): 80 General Appearance: no apparent distress EENT: normal ENT inspection Neck: normal alignment Cardiovascular: regular rhythm Respiratory/Chest: decreased breath sounds Abdomen: normal bowel sounds, non tender, soft Extremities: non-tender Satish Carrillo MD Jan 18, 2020 12:35
[2020-01-18 16:00] VITALS: BP 107/54
[2020-01-18] MEDS: DOPamine 400mg/250ml 250 ML IV SCH (18:46)
--- NOTE | 2020-01-18 19:34 | Nephrology Progress Note ---
Assessment/Plan Problem List: (1) RICHARD (acute kidney injury) (2) Dehydration (3) Anemia (4) GI bleed (5) Malnutrition (6) Seizure disorder (7) Electrolyte imbalance Assessment Renal failure, in the form of prerenal azotemia, most likely secondary to GI bleed GI bleed, leading to severe anemia Sepsis, pneumonia Chronic tracheostomy, ventilator dependent History of CVA History of seizure disorder History of psychiatric disorder Severe malnutrition Electrolyte abnormalities Plan January 17: Late note entry due to system problem at the [facility] today.Chemistry panel reviewed. Stable from renal standpoint of view. Continue per current management. January 16: No can panel today. Check lab tomorrow. Remains stable from renal standpoint of view. January 15: Lab reviewed. Renal parameters stable. January 14: Lab reviewed. Renal parameters stable. January 13: Labs reviewed. Stable from renal standpoint of view. January 12: Labs reviewed. Stable from renal standpoint of view January 11: No labs drawn today stable from renal standpoint of view January 10: Labs reviewed. Potassium supplement given. Continue per consultants. January 09: Lab reviewed. Potassium supplement given. IV fluid discontinued. January 08: Lab reviewed. Renal parameters stable. Continue per consultants. January 07: Lab reviewed. Renal parameters stable. Continue per consultants. January 06: Lab reviewed. Stable from renal standpoint of view. January 05: Labs reviewed. Stable from renal standpoint of view. Continue per consultants. January 04: No labs drawn today. Will check labs tomorrow. Continue per consultants. January 03: Lab reviewed. Renal parameters stable. IV fluid discontinued. High LFTs declining. Continue same. January 02: Lab reviewed. Renal parameters stable. Continue per PMD and consultants. LFTs remain elevated. Continue to monitor. Continue slow hydration Discontinue blood pressure medications as her blood pressure is low Discontinue diuretics Monitor renal parameters Transfusion as needed GI evaluation Correct electrolyte abnormalities Check B12 level, folate, and thyroid function tests: Results noted Subjective ROS Limited/Unobtainable: Yes Objective Objective Last 24 Hour Vital Signs Date Time Temp Pulse Resp B/P (MAP) Pulse Ox O2 Delivery O2 Flow Rate FiO2 01/18/20 18:48 70 26 30 01/18/20 18:46 107/54 01/18/20 18:00 Mechanical Ventilator 01/18/20 16:00 Mechanical Ventilator 9/3/20 16:00 30 01/18/20 16:00 97.7 77 22 107/54 (71) 99 01/18/20 16:00 71 01/18/20 12:00 Mechanical Ventilator 01/18/20 12:00 96.3 83 23 120/56 (77) 99 01/18/20 12:00 30 01/18/20 11:58 71 01/18/20 11:20 74 19 30 01/18/20 08:43 94 31 30 01/18/20 08:00 Mechanical Ventilator 01/18/20 08:00 30 01/18/20 08:00 73 01/18/20 08:00 114/60 01/18/20 08:00 97.5 72 20 91/50 (64) 100 01/18/20 07:27 83 30 30 01/18/20 07:27 100 01/18/20 07:00 91/50 01/18/20 05:00 48 28 30 01/18/20 04:00 66 01/18/20 04:00 97.0 65 20 97/58 (71) 100 01/18/20 04:00 Mechanical Ventilator 01/18/20 04:00 30 01/18/20 03:15 66 24 30 01/18/20 01:04 59 24 30 01/18/20 00:00 Mechanical Ventilator 01/18/20 00:00 97.9 59 20 97/57 (70) 100 01/18/20 00:00 63 01/18/20 00:00 30 01/17/20 22:58 74 30 30 01/17/20 21:14 62 18 30 01/17/20 20:00 57 01/17/20 20:00 97.7 61 20 109/58 (75) 100 01/17/20 20:00 Mechanical Ventilator Intake and Output 01/17/20 01/18/20 18:59 06:59 Intake Total 659.740 ml 853.688 ml Output Total 500 ml 425 ml Balance 159.740 ml 428.688 ml Intake Free Water 150 ml 110 ml IV Total 69.740 ml 83.688 ml Tube Feeding 440 ml 660 ml Output Urine Total 400 ml 400 ml Stool Total 100 ml 25 ml Laboratory Tests 01/18/20 03:25: Sodium Level 138, Potassium Level 4.4, Chloride Level 102, Carbon Dioxide Level 29, Anion Gap 7, Blood Urea Nitrogen 25H, Creatinine 0.5L, Estimat Glomerular Filtration Rate > 60, Glucose Level 87, Calcium Level 9.1, Phosphorus Level 3.7 , Magnesium Level 1.8, Total Bilirubin 0.2, Aspartate Amino Transf (AST/SGOT) 23 , Alanine Aminotransferase (ALT/SGPT) 30, Alkaline Phosphatase 126H, Total Protein 7.8, Albumin 3.0L, Globulin 4.8, Albumin/Globulin Ratio 0.6L 01/18/20 11:40: POC Whole Blood Glucose 86 Height (Feet): 5 Height (Inches): 1.00 Weight (Pounds): 80 General Appearance: no apparent distress EENT: other - Trach to vent Cardiovascular: other - Variable rate Respiratory/Chest: decreased breath sounds Abdomen: soft Objective No change Chivo Holloway MD Jan 18, 2020 19:34
--- NOTE | 2020-01-18 19:41 | General Progress Note ---
Assessment/Plan Status: stable, other - Patient is now hypotensive before over 46 she will receive 500 cc of normal saline bolus to be repeated blood pressure remained below 90 further management will be decided following the boluses treatment repeat laboratory tests will be done in a.m. GLENNY BISHOP MD Assessment/Plan: Glenny Harrison Subjective Constitutional: Reports: no symptoms, other - Awake alert attentive no attempt to communicate HEENT: Reports: no symptoms Cardiovascular: Reports: no symptoms Respiratory: Reports: no symptoms Gastrointestinal/Abdominal: Reports: no symptoms Neurologic/Psychiatric: Reports: anxiety, weakness - Some psychiatric behavior Allergies: Coded Allergies: CARBAMAZEPINE (Verified Allergy, Unknown, 12/31/19) LORAZEPAM (Verified Allergy, Unknown, 12/31/19) Objective Last 24 Hour Vital Signs Date Time Temp Pulse Resp B/P (MAP) Pulse Ox O2 Delivery O2 Flow Rate FiO2 01/18/20 18:48 70 26 30 01/18/20 18:46 107/54 01/18/20 18:00 Mechanical Ventilator 01/18/20 16:00 Mechanical Ventilator 01/18/20 16:00 30 01/18/20 16:00 97.7 77 22 107/54 (71) 99 01/18/20 16:00 71 01/18/20 12:00 Mechanical Ventilator 01/18/20 12:00 96.3 83 23 120/56 (77) 99 01/18/20 12:00 30 01/18/20 11:58 71 01/18/20 11:20 74 19 30 01/18/20 08:43 94 31 30 01/18/20 08:00 Mechanical Ventilator 01/18/20 08:00 30 01/18/20 08:00 73 01/18/20 08:00 114/60 01/18/20 08:00 97.5 72 20 91/50 (64) 100 01/18/20 07:27 83 30 30 01/18/20 07:27 100 01/18/20 07:00 91/50 01/18/20 05:00 48 28 30 01/18/20 04:00 66 01/18/20 04:00 97.0 65 20 97/58 (71) 100 01/18/20 04:00 Mechanical Ventilator 01/18/20 04:00 30 01/18/20 03:15 66 24 30 01/18/20 01:04 59 24 30 01/18/20 00:00 Mechanical Ventilator 01/18/20 00:00 97.9 59 20 97/57 (70) 100 01/18/20 00:00 63 01/18/20 00:00 30 01/17/20 22:58 74 30 30 01/17/20 21:14 62 18 30 01/17/20 20:00 57 01/17/20 20:00 97.7 61 20 109/58 (75) 100 01/17/20 20:00 Mechanical Ventilator Intake and Output 01/17/20 01/18/20 19:00 07:00 Intake Total 707.766 ml 805.662 ml Output Total 500 ml 425 ml Balance 207.766 ml 380.662 ml Intake Free Water 150 ml 110 ml IV Total 62.766 ml 90.662 ml Tube Feeding 495 ml 605 ml Output Urine Total 400 ml 400 ml Stool Total 100 ml 25 ml Laboratory Tests 01/18/20 03:25: Sodium Level 138, Potassium Level 4.4, Chloride Level 102, Carbon Dioxide Level 29, Anion Gap 7, Blood Urea Nitrogen 25H, Creatinine 0.5L, Estimat Glomerular Filtration Rate > 60, Glucose Level 87, Calcium Level 9.1, Phosphorus Level 3.7 , Magnesium Level 1.8, Total Bilirubin 0.2, Aspartate Amino Transf (AST/SGOT) 23 , Alanine Aminotransferase (ALT/SGPT) 30, Alkaline Phosphatase 126H, Total Protein 7.8, Albumin 3.0L, Globulin 4.8, Albumin/Globulin Ratio 0.6L 01/18/20 11:40: POC Whole Blood Glucose 86 Height (Feet): 5 Height (Inches): 1.00 Weight (Pounds): 80 General Appearance: lethargic, other - Showing her bed sheet EENT: normal ENT inspection Neck: supple, other Cardiovascular: normal rate, regular rhythm, no gallop/murmur Respiratory/Chest: lungs clear, decreased breath sounds, other - In both bases Abdomen: non tender, soft, no organomegaly, no mass Extremities: non-tender, other - With severe diffuse muscle wasting in both lower extremity Neurologic: alert, aphasia, other - Indifferent to the exam Skin: warm/dry Glenny Bishop MD Jan 18, 2020 19:41
[2020-01-18 20:00] VITALS: BP 104/61
[2020-01-18] MEDS: OXcarbazepine 150mg tab ORAL SCH (21:25)
--- NOTE | 2020-01-18 21:53 | Pulmonology Progress Note ---
Ivanna Mora [employer] 01/18/20 2153: Subjective ROS Limited/Unobtainable: Yes Allergies: Coded Allergies: CARBAMAZEPINE (Verified Allergy, Unknown, 12/31/19) LORAZEPAM (Verified Allergy, Unknown, 12/31/19) All Systems: reviewed and negative except above Subjective leukocytosis trending down. no fevers tachypnea intermittently BP better still at Dopamine gtt ABG stable on current settings CXR 01/13 no acute findings Objective Last 24 Hour Vital Signs Date Time Temp Pulse Resp B/P (MAP) Pulse Ox O2 Delivery O2 Flow Rate FiO2 01/18/20 20:43 98 31 30 01/18/20 20:00 Mechanical Ventilator 01/18/20 20:00 30 01/18/20 20:00 98.4 83 22 104/61 (75) 99 01/18/20 18:48 70 26 30 01/18/20 18:46 107/54 01/18/20 18:00 Mechanical Ventilator 01/18/20 16:00 Mechanical Ventilator 01/18/20 16:00 30 01/18/20 16:00 97.7 77 22 107/54 (71) 99 01/18/20 16:00 71 01/18/20 12:00 Mechanical Ventilator 01/18/20 12:00 96.3 83 23 120/56 (77) 99 01/18/20 12:00 30 01/18/20 11:58 71 01/18/20 11:20 74 19 30 01/18/20 08:43 94 31 30 01/18/20 08:00 Mechanical Ventilator 01/18/20 08:00 30 01/18/20 08:00 73 01/18/20 08:00 114/60 01/18/20 08:00 97.5 72 20 91/50 (64) 100 01/18/20 07:27 83 30 30 01/18/20 07:27 100 01/18/20 07:00 91/50 01/18/20 05:00 48 28 30 01/18/20 04:00 66 01/18/20 04:00 97.0 65 20 97/58 (71) 100 01/18/20 04:00 Mechanical Ventilator 01/18/20 04:00 30 01/18/20 03:15 66 24 30 01/18/20 01:04 59 24 30 9/3/20 00:00 Mechanical Ventilator 01/18/20 00:00 97.9 59 20 97/57 (70) 100 01/18/20 00:00 63 01/18/20 00:00 30 01/17/20 22:58 74 30 30 Intake and Output 01/17/20 01/18/20 19:00 07:00 Intake Total 707.766 ml 805.662 ml Output Total 500 ml 425 ml Balance 207.766 ml 380.662 ml Intake Free Water 150 ml 110 ml IV Total 62.766 ml 90.662 ml Tube Feeding 495 ml 605 ml Output Urine Total 400 ml 400 ml Stool Total 100 ml 25 ml Objective General Appearance: bedridden, pale, chronically ill looking, older than her biological age ; vent dependent female ; on vent SIMV 450-30%-12, PEEP 5 Lines, tubes and drains: peripheral, trach HEENT: normocephalic, atraumatic Neck: trach - Portex #7, secretions small amount, yellow color, thin consistency Respiratory/Chest: CTAB Cardiovascular/Chest: regular rate, regular rhythm Abdomen: non tender, soft, G tube Genitourinary/Rectal: [place] Extremities: no edema, muscle atrophy Neurologic: abnormal gait, poorly responsive, more awake , eyes open Musculoskeletal: atrophy BLE Skin: multiple tattoos Laboratory Tests 01/18/20 03:25: Sodium Level 138, Potassium Level 4.4, Chloride Level 102, Carbon Dioxide Level 29, Anion Gap 7, Blood Urea Nitrogen 25H, Creatinine 0.5L, Estimat Glomerular Filtration Rate > 60, Glucose Level 87, Calcium Level 9.1, Phosphorus Level 3.7 , Magnesium Level 1.8, Total Bilirubin 0.2, Aspartate Amino Transf (AST/SGOT) 23 , Alanine Aminotransferase (ALT/SGPT) 30, Alkaline Phosphatase 126H, Total Protein 7.8, Albumin 3.0L, Globulin 4.8, Albumin/Globulin Ratio 0.6L 01/18/20 11:40: POC Whole Blood Glucose 86 Current Medications Medications (Trade) Dose Ordered Sig/Villa Route PRN Reason Start Time Stop Time Status Last Admin Dose Admin Acetaminophen (Tylenol) 650 mg Q6H PRN GT Temp >100.5 01/01/20 11:00 01/31/20 10:59 01/15/20 08:18 Ascorbic Acid (Vitamin C) 500 mg DAILY ORAL 8/17/20 09:00 01/31/20 08:59 01/18/20 08:18 Dopamine HCl/ Dextrose 250 ml @ 6.974 mls/ hr Q24H IV 01/13/20 19:00 04/12/20 18:59 01/17/20 17:16 Famotidine (Pepcid) 20 mg BID ORAL 01/10/20 18:00 04/09/20 17:59 01/18/20 08:19 Fidaxomicin (Dificid) 200 mg EVERY 12 HOURS ORAL 01/16/20 21:00 01/26/20 09:01 01/18/20 21:25 Fluconazole (Diflucan) 100 mg DAILY GT 01/15/20 11:00 01/22/20 10:59 01/18/20 08:19 Gabapentin (Neurontin) 600 mg TID GT 01/08/20 13:00 02/07/20 12:59 01/18/20 08:18 Haloperidol Lactate (Haldol) 5 mg Q6H PRN IM Agitation 01/01/20 23:30 02/15/20 23:29 01/17/20 12:04 Levetiracetam (Keppra) 1,500 mg Q12HR GT 01/07/20 21:00 02/07/20 08:59 01/18/20 21:24 Levothyroxine Sodium (Synthroid) 75 mcg DAILY ORAL 01/01/20 09:00 01/31/20 08:59 01/18/20 08:18 Metronidazole (Flagyl) 500 mg Q8HR ORAL 01/16/20 14:00 01/23/20 13:59 01/18/20 21:25 Midodrine (Pro-Amatine) 2.5 mg THREE TIMES A DAY ORAL 01/07/20 09:00 04/06/20 08:59 01/18/20 08:17 Multivitamins Therapeutic (Therapeutic Multivitamin) 1 ea DAILY ORAL 01/01/20 09:00 01/31/20 08:59 01/18/20 08:18 Ondansetron HCl (Zofran) 4 mg Q6H PRN ORAL Nausea & Vomiting 12/31/19 21:00 01/30/20 20:59 Oxcarbazepine (TrileptaL) 300 mg BEDTIME ORAL 01/10/20 21:00 02/07/20 20:59 01/18/20 21:25 Potassium Chloride (K-Dur) 20 meq TWICE A DAY GT 01/11/20 09:00 04/10/20 08:59 01/18/20 08:18 Thiamine HCl (Vitamin B1) 100 mg DAILY ORAL 01/01/20 09:00 01/31/20 08:59 01/18/20 08:18 Assessment/Plan Assessment/Plan ASSESSMENT VDRF/trach status Sepsis Possible pneumonia UTI recurrent GI bleeding C dif colitis Anemia secondary to GI bleeding Aspiration risk Dysphagia, feeding by G-tube Encephalopathy Acute kidney injury likely secondary to dehydration Bradycardia Hypotension Electrolyte imbalance Severe protein calorie malnutrition Hx of hypertension History of CVA Seizure disorder with witnessed seizure episode 01/07 Psychiatric disorder Presumed scabies, s/p Rx Thrombocytopenia-transient- resolved PLAN OF CARE JULIANA vent support, pulm toilet ABG stable on current settings, on SIMV mode 450-30-12 PEEP5 , no signs of resp distress on these settings keep settings as is and titrate as needed now tachypneic intermittently ABG repeated this am 01/14 due to tachypnea- remains stable CXR 01/13 stable pulm toilet via HHN Theophylline level was high -25; ->was dc prior leuk now trending downp , no fevers, possibly due to C dif pancx-per ID CXR 01/13- no acute findings KUB 01/13- no acute findings UA + yeast , 01/12 UCX +yeast, started on Fluconazole 01/14 as per ID BCX 01/12 NGTD abx as per ID recs Vanco po was prior dc and switched to Dificid inflammatory markers : ESR-42, CRP- wnl prior BCX 05/18 +CONS likely contaminant, off Vanco ; repeated BCX 01/01 and 01/02 NGTD SCX + Proteus , was on Ceftriaxone as per ID recs for poss SBP in setting of GI bleeding - completed BCX 01/01 and 01/02 NGTD stool C dif 01/07 +, on oral vanco rapid COVID 19 NGT in ED aspiration precautions Venous Duplex BLE -negative, get SCD ( unable to give a/c given anemia) closely monitor hemodynamic status Protonix IV GT feeding stool OB positive transfuse to keep Hgb > 7. heme and GI follows s/p EGD 01/01 -> gastric ulcer across G tube site , no active bleeding HH at baseline monitor for any further episodes of Gi bleeding trend LFT-> trended down, hep panel NGT hx of cirrhosis- per GI management hypotension-> Midodrine, s/p IV fluids, on Dopamine gtt bradycardia -> Midodrine dose decreased and prior Theophylline was started by primary but dc due to increased level cardio follows HR better monitor renal parameters, lytes, avoid nephrotoxic BUN trending down, creat stable, likely prerenal due to dehydration replace e/lytes as per nephro recs monitor volumes seizure precautions, antiepileptic optimized as per neuro recs ammonia 49, fup with further neuro recs EEG - grossly abnormal; mild to mod encephalopathy, single ictal episode CT head no acute IC pathology BP management with current regimen SNF meds supportive care dietary recs s/p 12/31 Rx for presumed scabies with permethrin and Ivermectin, repeated Ivermectin 01/08 Note; time of this note does not reflect the actual time patient was seen. [facility] was down case discussed and evaluated by supervising physician Raul Esparza MD 01/19/20 1250: Subjective Allergies: Coded Allergies: CARBAMAZEPINE (Verified Allergy, Unknown, 12/31/19) LORAZEPAM (Verified Allergy, Unknown, 12/31/19) Assessment/Plan Assessment/Plan Patient seen and examined with [employer]. Agree with above A&P as it reflects our joint deliberations. Ivanna Mora NP Jan 18, 2020 21:53 Raul Esparza MD Jan 19, 2020 12:50
--- NOTE | 2020-01-18 22:12 | Psych Consult Progress Note ---
Psychiatry Progress Note Psychiatry Progress Note Subjective the pt is the same awake confused Medications Current Medications Medications (Trade) Dose Ordered Sig/Villa Route PRN Reason Start Time Stop Time Status Last Admin Dose Admin Acetaminophen (Tylenol) 650 mg Q6H PRN GT Temp >100.5 01/01/20 11:00 01/31/20 10:59 01/15/20 08:18 Ascorbic Acid (Vitamin C) 500 mg DAILY ORAL 01/01/20 09:00 01/31/20 08:59 01/18/20 08:18 Dopamine HCl/ Dextrose 250 ml @ 6.974 mls/ hr Q24H IV 01/13/20 19:00 04/12/20 18:59 01/17/20 17:16 Famotidine (Pepcid) 20 mg BID ORAL 01/10/20 18:00 04/09/20 17:59 01/18/20 08:19 Fidaxomicin (Dificid) 200 mg EVERY 12 HOURS ORAL 01/16/20 21:00 01/26/20 09:01 01/18/20 21:25 Fluconazole (Diflucan) 100 mg DAILY GT 01/15/20 11:00 01/22/20 10:59 01/18/20 08:19 Gabapentin (Neurontin) 600 mg TID GT 01/08/20 13:00 02/07/20 12:59 01/18/20 08:18 Haloperidol Lactate (Haldol) 5 mg Q6H PRN IM Agitation 01/01/20 23:30 02/15/20 23:29 01/17/20 12:04 Levetiracetam (Keppra) 1,500 mg Q12HR GT 01/07/20 21:00 02/07/20 08:59 01/18/20 21:24 Levothyroxine Sodium (Synthroid) 75 mcg DAILY ORAL 01/01/20 09:00 01/31/20 08:59 01/18/20 08:18 Metronidazole (Flagyl) 500 mg Q8HR ORAL 01/16/20 14:00 01/23/20 13:59 01/18/20 21:25 Midodrine (Pro-Amatine) 2.5 mg THREE TIMES A DAY ORAL 01/07/20 09:00 04/06/20 08:59 01/18/20 08:17 Multivitamins Therapeutic (Therapeutic Multivitamin) 1 ea DAILY ORAL 01/01/20 09:00 01/31/20 08:59 01/18/20 08:18 Ondansetron HCl (Zofran) 4 mg Q6H PRN ORAL Nausea & Vomiting 12/31/19 21:00 01/30/20 20:59 Oxcarbazepine (TrileptaL) 300 mg BEDTIME ORAL 01/10/20 21:00 02/07/20 20:59 01/18/20 21:25 Potassium Chloride (K-Dur) 20 meq TWICE A DAY GT 01/11/20 09:00 04/10/20 08:59 01/18/20 08:18 Thiamine HCl (Vitamin B1) 100 mg DAILY ORAL 01/01/20 09:00 01/31/20 08:59 01/18/20 08:18 Neurological/Psychiatric: Reports: anxiety, weakness - Some psychiatric behavior Allergies: Coded Allergies: CARBAMAZEPINE (Verified Allergy, Unknown, 12/31/19) LORAZEPAM (Verified Allergy, Unknown, 12/31/19) Objective Data Height (Feet): 5 Height (Inches): 1.00 Weight (Pounds): 80 General Appearance: no apparent distress Additional Comments: waxing and waning consciousness. Affect is flat. Thought process, there is a paucity of thought content. Thought content, no suicidal or homicidal ideation. Cognition is impaired. Insight and judgment is impaired. Assessment/Plan [place] I: dc ativan cont haldol Status: stable, other - Patient is now hypotensive before over 46 she will receive 500 cc of normal saline bolus to be repeated blood pressure remained below 90 further management will be decided following the boluses treatment repeat laboratory tests will be done in a.m. GEM MCKAY MD Status Narrative dc ativan cont haldol Assessment/Plan: tegan ativan cont haldol Rhonda Maxwell MD Jan 18, 2020 22:12
--- NOTE | 2020-01-18 23:59 | Cardiology Progress Note ---
Assessment/Plan Assessment/Plan 1. Hypotension, could be due to Keppra, continue low dose midodrine. 2. Sinus bradycardia, resolved. 3. Anemia of chronic disease 4. Acute renal failure, resolved. 5. GI bleeding due to gastric ulceration. 6. Dysphagia, s/p PEG placement. 7. VDRF, s/p tracheostomy tube placement. Subjective Subjective Sinus rhtythm at rate of 93. On the vent with FiO2 of 30%. Objective Last 24 Hour Vital Signs Date Time Temp Pulse Resp B/P (MAP) Pulse Ox O2 Delivery O2 Flow Rate FiO2 01/18/20 22:43 93 26 30 01/18/20 20:43 98 31 30 01/18/20 20:00 Mechanical Ventilator 01/18/20 20:00 83 01/18/20 20:00 30 01/18/20 20:00 98.4 83 22 104/61 (75) 99 01/18/20 18:48 70 26 30 01/18/20 18:46 107/54 01/18/20 18:00 Mechanical Ventilator 01/18/20 16:00 Mechanical Ventilator 01/18/20 16:00 30 01/18/20 16:00 97.7 77 22 107/54 (71) 99 01/18/20 16:00 71 01/18/20 12:00 Mechanical Ventilator 01/18/20 12:00 96.3 83 23 120/56 (77) 99 01/18/20 12:00 30 01/18/20 11:58 71 01/18/20 11:20 74 19 30 01/18/20 08:43 94 31 30 01/18/20 08:00 Mechanical Ventilator 01/18/20 08:00 30 01/18/20 08:00 73 01/18/20 08:00 114/60 01/18/20 08:00 97.5 72 20 91/50 (64) 100 01/18/20 07:27 83 30 30 01/18/20 07:27 100 01/18/20 07:00 91/50 01/18/20 05:00 48 28 30 01/18/20 04:00 66 01/18/20 04:00 97.0 65 20 97/58 (71) 100 01/18/20 04:00 Mechanical Ventilator 01/18/20 04:00 30 01/18/20 03:15 66 24 30 01/18/20 01:04 59 24 30 01/18/20 00:00 Mechanical Ventilator 01/18/20 00:00 97.9 59 20 97/57 (70) 100 01/18/20 00:00 63 01/18/20 00:00 30 Intake and Output 01/17/20 01/18/20 19:00 07:00 Intake Total 707.766 ml 805.662 ml Output Total 500 ml 425 ml Balance 207.766 ml 380.662 ml Intake Free Water 150 ml 110 ml IV Total 62.766 ml 90.662 ml Tube Feeding 495 ml 605 ml Output Urine Total 400 ml 400 ml Stool Total 100 ml 25 ml 2D Echo: LVEF 65%, RVSP 23 mmHg, Grade I LVDD Laboratory Tests Test 01/18/20 03:25 01/18/20 11:40 Sodium Level 138 MMOL/L (136-145) Potassium Level 4.4 MMOL/L (3.5-5.1) Chloride Level 102 MMOL/L (98-107) Carbon Dioxide Level 29 MMOL/L (21-32) Anion Gap 7 mmol/L (5-15) Blood Urea Nitrogen 25 mg/dL (7-18) H Creatinine 0.5 MG/DL (0.55-1.30) L Estimat Glomerular Filtration Rate > 60 mL/min (>60) Glucose Level 87 MG/DL (74-106) Calcium Level 9.1 MG/DL (8.5-10.1) Phosphorus Level 3.7 MG/DL (2.5-4.9) Magnesium Level 1.8 MG/DL (1.8-2.4) Total Bilirubin 0.2 MG/DL (0.2-1.0) Aspartate Amino Transf (AST/SGOT) 23 U/L (15-37) Alanine Aminotransferase (ALT/SGPT) 30 U/L (12-78) Alkaline Phosphatase 126 U/L (46-116) H Total Protein 7.8 G/DL (6.4-8.2) Albumin 3.0 G/DL (3.4-5.0) L Globulin 4.8 g/dL Albumin/Globulin Ratio 0.6 (1.0-2.7) L POC Whole Blood Glucose 86 MG/DL (74-106) Objective HEENT: PERRLA, EOMI, Trach site with moderate secretions. NECK: Cannot assess JVP, no carotid bruit with normal upstroke. LUNGS: Bilateral rhonchi. CARDIAC: Regular rhythm and rate. Normal S1, S2 with no murmurs, gallops or rubs. ABDOMEN: Soft with G-tube. No hepatomegaly. EXTREMITIES: No edema, clubbing or cyanosis. Desmond Gleason MD Jan 18, 2020 23:59
[2020-01-19] VITALS: BP 95/61
[2020-01-19 04:00] VITALS: BP 106/77
[2020-01-19] MEDS: metroNIDAZOLE 500mg tab ORAL SCH ×3 (05:30→21:41)
[2020-01-19 08:00] VITALS: BP 109/65
[2020-01-19] MEDS: Ascorbic Acid 500mg tab ORAL SCH (09:00)
[2020-01-19] MEDS: Thiamine 100mg tab ORAL SCH (09:00)
[2020-01-19] MEDS: levETIRAcetam 500mg/5ml Liquid GT SCH ×2 (09:00→21:41)
[2020-01-19] MEDS: Multivitamin w/Minerals tab ORAL SCH (09:00)
[2020-01-19] MEDS: Gabapentin 300 MG/6 ML Soln GT SCH ×3 (09:00→18:00)
[2020-01-19] MEDS: Fluconazole 100mg tab GT SCH (09:00)
--- NOTE | 2020-01-19 09:49 | Pulmonology Progress Note ---
Ivanna Mora [employer] [employer] 01/19/20 0949: Subjective ROS Limited/Unobtainable: Yes Allergies: Coded Allergies: CARBAMAZEPINE (Verified Allergy, Unknown, 12/31/19) LORAZEPAM (Verified Allergy, Unknown, 12/31/19) All Systems: reviewed and negative except above Subjective leukocytosis trending down, no labs this am no fevers tachypnea intermittently BP better still at Dopamine gtt and Midodrine ABG stable on current settings CXR 01/13 no acute findings Objective Last 24 Hour Vital Signs Date Time Temp Pulse Resp B/P (MAP) Pulse Ox O2 Delivery O2 Flow Rate FiO2 01/19/20 09:05 99 01/19/20 09:05 81 22 30 01/19/20 09:04 30 01/19/20 08:00 98.4 92 22 109/65 (80) 100 01/19/20 08:00 Mechanical Ventilator 01/19/20 07:25 105 28 30 01/19/20 04:57 79 23 30 01/19/20 04:00 84 01/19/20 04:00 98.6 89 22 106/77 (87) 98 01/19/20 04:00 Mechanical Ventilator 01/19/20 04:00 30 01/19/20 02:43 69 20 30 01/19/20 00:32 70 16 30 01/19/20 00:00 89 01/19/20 00:00 97.1 89 22 95/61 (72) 99 01/19/20 00:00 Mechanical Ventilator 01/18/20 22:43 93 26 30 01/18/20 20:43 98 31 30 01/18/20 20:00 Mechanical Ventilator 01/18/20 20:00 83 01/18/20 20:00 30 01/18/20 20:00 98.4 83 22 104/61 (75) 99 01/18/20 18:48 70 26 30 01/18/20 18:46 107/54 01/18/20 18:00 Mechanical Ventilator 01/18/20 16:00 Mechanical Ventilator 01/18/20 16:00 30 01/18/20 16:00 97.7 77 22 107/54 (71) 99 01/18/20 16:00 71 01/18/20 12:00 Mechanical Ventilator 01/18/20 12:00 96.3 83 23 120/56 (77) 99 01/18/20 12:00 30 01/18/20 11:58 71 01/18/20 11:20 74 19 30 Intake and Output 01/18/20 01/19/20 19:00 07:00 Intake Total 524.870 ml 788.688 ml Output Total 200 ml 250 ml Balance 324.870 ml 538.688 ml Intake Free Water 50 ml 100 ml IV Total 34.870 ml 83.688 ml Tube Feeding 440 ml 605 ml Output Urine Total 200 ml 100 ml Stool Total 150 ml # Bowel Movements 3 Objective General Appearance: bedridden, pale, chronically ill looking, older than her biological age ; vent dependent female ; on vent SIMV 450-30%-12, PEEP 5 Lines, tubes and drains: peripheral, trach HEENT: normocephalic, atraumatic Neck: trach - Portex #7, secretions small amount, yellow color, thin consistency Respiratory/Chest: CTAB Cardiovascular/Chest: regular rate, regular rhythm Abdomen: non tender, soft, G tube Genitourinary/Rectal: [place] Extremities: no edema, muscle atrophy Neurologic: abnormal gait, poorly responsive, more awake , eyes open Musculoskeletal: atrophy BLE Skin: multiple tattoos Laboratory Tests 01/18/20 11:40: POC Whole Blood Glucose 86 Current Medications Medications (Trade) Dose Ordered Sig/Villa Route PRN Reason Start Time Stop Time Status Last Admin Dose Admin Acetaminophen (Tylenol) 650 mg Q6H PRN GT Temp >100.5 01/01/20 11:00 01/31/20 10:59 01/15/20 08:18 Ascorbic Acid (Vitamin C) 500 mg DAILY ORAL 01/01/20 09:00 01/31/20 08:59 01/19/20 09:00 Dopamine HCl/ Dextrose 250 ml @ 6.974 mls/ hr Q24H IV 01/13/20 19:00 04/12/20 18:59 01/17/20 17:16 Famotidine (Pepcid) 20 mg BID ORAL 01/10/20 18:00 04/09/20 17:59 01/19/20 09:00 Fidaxomicin (Dificid) 200 mg EVERY 12 HOURS ORAL 01/16/20 21:00 01/26/20 09:01 01/19/20 09:00 Fluconazole (Diflucan) 100 mg DAILY GT 01/15/20 11:00 01/22/20 10:59 01/19/20 09:00 Gabapentin (Neurontin) 600 mg TID GT 01/08/20 13:00 02/07/20 12:59 01/19/20 09:00 Haloperidol Lactate (Haldol) 5 mg Q6H PRN IM Agitation 01/01/20 23:30 02/15/20 23:29 01/17/20 12:04 Levetiracetam (Keppra) 1,500 mg Q12HR GT 01/07/20 21:00 02/07/20 08:59 01/19/20 09:00 Levothyroxine Sodium (Synthroid) 75 mcg DAILY ORAL 01/01/20 09:00 01/31/20 08:59 01/19/20 09:00 Metronidazole (Flagyl) 500 mg Q8HR ORAL 01/16/20 14:00 01/23/20 13:59 01/19/20 05:30 Midodrine (Pro-Amatine) 2.5 mg THREE TIMES A DAY ORAL 01/07/20 09:00 04/06/20 08:59 01/19/20 09:00 Multivitamins Therapeutic (Therapeutic Multivitamin) 1 ea DAILY ORAL 01/01/20 09:00 01/31/20 08:59 01/19/20 09:00 Ondansetron HCl (Zofran) 4 mg Q6H PRN ORAL Nausea & Vomiting 12/31/19 21:00 01/30/20 20:59 Oxcarbazepine (TrileptaL) 300 mg BEDTIME ORAL 01/10/20 21:00 02/07/20 20:59 01/18/20 21:25 Potassium Chloride (K-Dur) 20 meq TWICE A DAY GT 01/11/20 09:00 04/10/20 08:59 01/19/20 09:00 Thiamine HCl (Vitamin B1) 100 mg DAILY ORAL 01/01/20 09:00 01/31/20 08:59 01/19/20 09:00 Assessment/Plan Assessment/Plan ASSESSMENT VDRF/trach status Sepsis Possible pneumonia UTI recurrent GI bleeding C dif colitis Anemia secondary to GI bleeding Aspiration risk Dysphagia, feeding by G-tube Encephalopathy Acute kidney injury likely secondary to dehydration Bradycardia Hypotension Electrolyte imbalance Severe protein calorie malnutrition Hx of hypertension History of CVA Seizure disorder with witnessed seizure episode 01/07 Psychiatric disorder Presumed scabies, s/p Rx Thrombocytopenia-transient- resolved PLAN OF CARE JULIANA vent support, pulm toilet ABG stable on current settings, on SIMV mode 450-30-12 PEEP5 , no signs of resp distress on these settings keep settings as is and titrate as needed now tachypneic intermittently ABG repeated this am 01/14 due to tachypnea- remains stable CXR 01/13 stable pulm toilet via HHN Theophylline level was high -25; ->was dc prior leuk now trending downp , no fevers, possibly due to C dif pancx-per ID CXR 01/13- no acute findings KUB 01/13- no acute findings UA + yeast , 01/12 UCX +yeast, started on Fluconazole 01/14 as per ID BCX 01/12 NGTD abx as per ID recs Vanco po was prior dc and switched to Dificid inflammatory markers : ESR-42, CRP- wnl prior BCX 05/18 +CONS likely contaminant, off Vanco ; repeated BCX 01/01 and 01/02 NGTD SCX + Proteus , was on Ceftriaxone as per ID recs for poss SBP in setting of GI bleeding - completed BCX 01/01 and 01/02 NGTD stool C dif 01/07 +, on oral vanco rapid COVID 19 NGT in ED aspiration precautions Venous Duplex BLE -negative, get SCD ( unable to give a/c given anemia) closely monitor hemodynamic status Protonix IV GT feeding stool OB positive transfuse to keep Hgb > 7. heme and GI follows s/p EGD 01/01 -> gastric ulcer across G tube site , no active bleeding HH at baseline monitor for any further episodes of Gi bleeding trend LFT-> trended down, hep panel NGT hx of cirrhosis- per GI management hypotension-> Midodrine, s/p IV fluids, on Dopamine gtt bradycardia -> Midodrine dose decreased and prior Theophylline was started by primary but dc due to increased level cardio follows HR better monitor renal parameters, lytes, avoid nephrotoxic BUN trending down, creat stable, likely prerenal due to dehydration replace e/lytes as per nephro recs monitor volumes seizure precautions, antiepileptic optimized as per neuro recs ammonia 49, fup with further neuro recs EEG - grossly abnormal; mild to mod encephalopathy, single ictal episode CT head no acute IC pathology BP management with current regimen SNF meds supportive care dietary recs s/p 12/31 Rx for presumed scabies with permethrin and Ivermectin, repeated Ivermectin 01/08 case discussed and evaluated by supervising physician Raul Esparza MD 01/19/20 1250: Subjective Allergies: Coded Allergies: CARBAMAZEPINE (Verified Allergy, Unknown, 12/31/19) LORAZEPAM (Verified Allergy, Unknown, 12/31/19) Assessment/Plan Assessment/Plan Patient seen and examined with [employer]. Agree with above A&P as it reflects our joint deliberations. Ivanna Mora NP Jan 19, 2020 09:49 Raul Esparza MD Jan 19, 2020 12:50
--- NOTE | 2020-01-19 10:46 | General Progress Note ---
Assessment/Plan Problem List: (1) G tube feedings ICD Codes: Z93.1 - Gastrostomy status SNOMED: 919175558, 850294376, 534874079 (2) GI bleed ICD Codes: K92.2 - Gastrointestinal hemorrhage, unspecified SNOMED: 79931937 (3) Sepsis ICD Codes: A41.9 - Sepsis, unspecified organism SNOMED: 40348542 (4) Pneumonia ICD Codes: J18.9 - Pneumonia, unspecified organism SNOMED: 730310033 Status: stable, other - Patient is now hypotensive before over 46 she will receive 500 cc of normal saline bolus to be repeated blood pressure remained below 90 further management will be decided following the boluses treatment repeat laboratory tests will be done in a.m. GEM MCKAY MD Assessment/Plan: s/p EGD gastric ulcer no recurrent bleed G TF monitor H&H C. Diff positive off ppi po vanco pepcid will fu Subjective ROS Limited/Unobtainable: No Allergies: Coded Allergies: CARBAMAZEPINE (Verified Allergy, Unknown, 12/31/19) LORAZEPAM (Verified Allergy, Unknown, 12/31/19) Objective Last 24 Hour Vital Signs Date Time Temp Pulse Resp B/P (MAP) Pulse Ox O2 Delivery O2 Flow Rate FiO2 01/19/20 09:05 99 01/19/20 09:05 81 22 30 01/19/20 09:04 30 01/19/20 08:00 98.4 92 22 109/65 (80) 100 01/19/20 08:00 Mechanical Ventilator 01/19/20 07:25 105 28 30 01/19/20 04:57 79 23 30 01/19/20 04:00 84 01/19/20 04:00 98.6 89 22 106/77 (87) 98 01/19/20 04:00 Mechanical Ventilator 01/19/20 04:00 30 01/19/20 02:43 69 20 30 01/19/20 00:32 70 16 30 01/19/20 00:00 89 01/19/20 00:00 97.1 89 22 95/61 (72) 99 01/19/20 00:00 Mechanical Ventilator 01/18/20 22:43 93 26 30 01/18/20 20:43 98 31 30 01/18/20 20:00 Mechanical Ventilator 01/18/20 20:00 83 01/18/20 20:00 30 01/18/20 20:00 98.4 83 22 104/61 (75) 99 01/18/20 18:48 70 26 30 01/18/20 18:46 107/54 01/18/20 18:00 Mechanical Ventilator 01/18/20 16:00 Mechanical Ventilator 01/18/20 16:00 30 01/18/20 16:00 97.7 77 22 107/54 (71) 99 01/18/20 16:00 71 01/18/20 12:00 Mechanical Ventilator 01/18/20 12:00 96.3 83 23 120/56 (77) 99 01/18/20 12:00 30 01/18/20 11:58 71 01/18/20 11:20 74 19 30 Intake and Output 01/18/20 01/19/20 19:00 07:00 Intake Total 524.870 ml 788.688 ml Output Total 200 ml 250 ml Balance 324.870 ml 538.688 ml Intake Free Water 50 ml 100 ml IV Total 34.870 ml 83.688 ml Tube Feeding 440 ml 605 ml Output Urine Total 200 ml 100 ml Stool Total 150 ml # Bowel Movements 3 Laboratory Tests 01/18/20 11:40: POC Whole Blood Glucose 86 Height (Feet): 5 Height (Inches): 1.00 Weight (Pounds): 80 General Appearance: no apparent distress EENT: normal ENT inspection Neck: supple Cardiovascular: normal rate Respiratory/Chest: decreased breath sounds Abdomen: normal bowel sounds, non tender, soft Extremities: non-tender Satish Carrillo MD Jan 19, 2020 10:46
--- NOTE | 2020-01-19 11:56 | Nephrology Progress Note ---
Assessment/Plan Problem List: (1) RICHARD (acute kidney injury) (2) Dehydration (3) Anemia (4) GI bleed (5) Malnutrition (6) Seizure disorder (7) Electrolyte imbalance Assessment Renal failure, in the form of prerenal azotemia, most likely secondary to GI bleed GI bleed, leading to severe anemia Sepsis, pneumonia Chronic tracheostomy, ventilator dependent History of CVA History of seizure disorder History of psychiatric disorder Severe malnutrition Electrolyte abnormalities Plan January 18: No labs done today. Continue per consultants. Medications reviewed. January 17: Late note entry due to system problem at the [facility] today.Chemistry panel reviewed. Stable from renal standpoint of view. Continue per current management. January 16: No can panel today. Check lab tomorrow. Remains stable from renal standpoint of view. January 15: Lab reviewed. Renal parameters stable. January 14: Lab reviewed. Renal parameters stable. January 13: Labs reviewed. Stable from renal standpoint of view. January 12: Labs reviewed. Stable from renal standpoint of view January 11: No labs drawn today stable from renal standpoint of view January 10: Labs reviewed. Potassium supplement given. Continue per consultants. January 09: Lab reviewed. Potassium supplement given. IV fluid discontinued. January 08: Lab reviewed. Renal parameters stable. Continue per consultants. January 07: Lab reviewed. Renal parameters stable. Continue per consultants. January 06: Lab reviewed. Stable from renal standpoint of view. January 05: Labs reviewed. Stable from renal standpoint of view. Continue per consultants. January 04: No labs drawn today. Will check labs tomorrow. Continue per consultants. January 03: Lab reviewed. Renal parameters stable. IV fluid discontinued. High LFTs declining. Continue same. January 02: Lab reviewed. Renal parameters stable. Continue per PMD and consultants. LFTs remain elevated. Continue to monitor. Continue slow hydration Discontinue blood pressure medications as her blood pressure is low Discontinue diuretics Monitor renal parameters Transfusion as needed GI evaluation Correct electrolyte abnormalities Check B12 level, folate, and thyroid function tests: Results noted Subjective ROS Limited/Unobtainable: Yes Objective Objective Last 24 Hour Vital Signs Date Time Temp Pulse Resp B/P (MAP) Pulse Ox O2 Delivery O2 Flow Rate FiO2 01/19/20 11:05 64 19 30 01/19/20 10:45 60 01/19/20 09:05 99 01/19/20 09:05 81 22 30 01/19/20 09:04 30 01/19/20 08:00 115 01/19/20 08:00 98.4 92 22 109/65 (80) 100 01/19/20 08:00 Mechanical Ventilator 01/19/20 07:25 105 28 30 01/19/20 04:57 79 23 30 01/19/20 04:00 84 01/19/20 04:00 98.6 89 22 106/77 (87) 98 01/19/20 04:00 Mechanical Ventilator 01/19/20 04:00 30 01/19/20 02:43 69 20 30 01/19/20 00:32 70 16 30 01/19/20 00:00 89 01/19/20 00:00 97.1 89 22 95/61 (72) 99 01/19/20 00:00 Mechanical Ventilator 01/18/20 22:43 93 26 30 01/18/20 20:43 98 31 30 01/18/20 20:00 Mechanical Ventilator 01/18/20 20:00 83 01/18/20 20:00 30 01/18/20 20:00 98.4 83 22 104/61 (75) 99 01/18/20 18:48 70 26 30 01/18/20 18:46 107/54 01/18/20 18:00 Mechanical Ventilator 01/18/20 16:00 Mechanical Ventilator 01/18/20 16:00 30 01/18/20 16:00 97.7 77 22 107/54 (71) 99 01/18/20 16:00 71 01/18/20 12:00 Mechanical Ventilator 01/18/20 12:00 96.3 83 23 120/56 (77) 99 01/18/20 12:00 30 01/18/20 11:58 71 Intake and Output 01/18/20 01/19/20 19:00 07:00 Intake Total 524.870 ml 788.688 ml Output Total 200 ml 250 ml Balance 324.870 ml 538.688 ml Intake Free Water 50 ml 100 ml IV Total 34.870 ml 83.688 ml Tube Feeding 440 ml 605 ml Output Urine Total 200 ml 100 ml Stool Total 150 ml # Bowel Movements 3 Current Medications Medications (Trade) Dose Ordered Sig/Villa Route PRN Reason Start Time Stop Time Status Last Admin Dose Admin Acetaminophen (Tylenol) 650 mg Q6H PRN GT Temp >100.5 01/01/20 11:00 01/31/20 10:59 01/15/20 08:18 Ascorbic Acid (Vitamin C) 500 mg DAILY ORAL 01/01/20 09:00 01/31/20 08:59 01/19/20 09:00 Dopamine HCl/ Dextrose 250 ml @ 6.974 mls/ hr Q24H IV 01/13/20 19:00 04/12/20 18:59 01/17/20 17:16 Famotidine (Pepcid) 20 mg BID ORAL 01/10/20 18:00 04/09/20 17:59 01/19/20 09:00 Fidaxomicin (Dificid) 200 mg EVERY 12 HOURS ORAL 01/16/20 21:00 01/26/20 09:01 01/19/20 09:00 Fluconazole (Diflucan) 100 mg DAILY GT 01/15/20 11:00 01/22/20 10:59 01/19/20 09:00 Gabapentin (Neurontin) 600 mg TID GT 01/08/20 13:00 02/07/20 12:59 01/19/20 09:00 Haloperidol Lactate (Haldol) 5 mg Q6H PRN IM Agitation 01/01/20 23:30 02/15/20 23:29 01/17/20 12:04 Levetiracetam (Keppra) 1,500 mg Q12HR GT 01/07/20 21:00 02/07/20 08:59 01/19/20 09:00 Levothyroxine Sodium (Synthroid) 75 mcg DAILY ORAL 01/01/20 09:00 01/31/20 08:59 01/19/20 09:00 Metronidazole (Flagyl) 500 mg Q8HR ORAL 01/16/20 14:00 01/23/20 13:59 01/19/20 05:30 Midodrine (Pro-Amatine) 2.5 mg THREE TIMES A DAY ORAL 01/07/20 09:00 04/06/20 08:59 01/19/20 09:00 Multivitamins Therapeutic (Therapeutic Multivitamin) 1 ea DAILY ORAL 01/01/20 09:00 01/31/20 08:59 01/19/20 09:00 Ondansetron HCl (Zofran) 4 mg Q6H PRN ORAL Nausea & Vomiting 12/31/19 21:00 01/30/20 20:59 Oxcarbazepine (TrileptaL) 300 mg BEDTIME ORAL 01/10/20 21:00 02/07/20 20:59 01/18/20 21:25 Potassium Chloride (K-Dur) 20 meq TWICE A DAY GT 01/11/20 09:00 04/10/20 08:59 01/19/20 09:00 Thiamine HCl (Vitamin B1) 100 mg DAILY ORAL 01/01/20 09:00 01/31/20 08:59 01/19/20 09:00 Height (Feet): 5 Height (Inches): 1.00 Weight (Pounds): 80 General Appearance: no apparent distress EENT: other - On ventilator Cardiovascular: tachycardia Respiratory/Chest: decreased breath sounds Abdomen: distended Objective No change Chivo Holloway MD Jan 19, 2020 11:56
[2020-01-19 12:00] VITALS: BP 115/72
--- NOTE | 2020-01-19 12:43 | Surgery Progress Note ---
Surgery Progress Note Subjective Additional Comments eyes open and tracking no n/v on support dressingoing well Objective Last 24 Hour Vital Signs Date Time Temp Pulse Resp B/P (MAP) Pulse Ox O2 Delivery O2 Flow Rate FiO2 01/19/20 11:05 64 19 30 01/19/20 10:45 60 01/19/20 09:05 99 01/19/20 09:05 81 22 30 01/19/20 09:04 30 01/19/20 08:00 115 01/19/20 08:00 98.4 92 22 109/65 (80) 100 01/19/20 08:00 Mechanical Ventilator 01/19/20 07:25 105 28 30 01/19/20 04:57 79 23 30 01/19/20 04:00 84 01/19/20 04:00 98.6 89 22 106/77 (87) 98 01/19/20 04:00 Mechanical Ventilator 01/19/20 04:00 30 01/19/20 02:43 69 20 30 01/19/20 00:32 70 16 30 01/19/20 00:00 89 01/19/20 00:00 97.1 89 22 95/61 (72) 99 01/19/20 00:00 Mechanical Ventilator 01/18/20 22:43 93 26 30 01/18/20 20:43 98 31 30 01/18/20 20:00 Mechanical Ventilator 01/18/20 20:00 83 01/18/20 20:00 30 01/18/20 20:00 98.4 83 22 104/61 (75) 99 01/18/20 18:48 70 26 30 01/18/20 18:46 107/54 01/18/20 18:00 Mechanical Ventilator 01/18/20 16:00 Mechanical Ventilator 01/18/20 16:00 30 01/18/20 16:00 97.7 77 22 107/54 (71) 99 01/18/20 16:00 71 I&O Intake and Output 01/18/20 01/19/20 19:00 07:00 Intake Total 524.870 ml 788.688 ml Output Total 200 ml 250 ml Balance 324.870 ml 538.688 ml Intake Free Water 50 ml 100 ml IV Total 34.870 ml 83.688 ml Tube Feeding 440 ml 605 ml Output Urine Total 200 ml 100 ml Stool Total 150 ml # Bowel Movements 3 Cardiovascular: RSR, other Respiratory: decreased breath sounds, other Abdomen: soft, non-tender, present bowel sounds, other Extremities: no edema, no tenderness, no cyanosis, other Plan Problems: (1) Pneumonia (2) Sepsis Assessment & Plan: leukocytosis anemia lactic acidosis agree with GI recommend EGD planned for 12/31 hold feeding for now trend h/h monitor for bleeding no acute hemorrhage will be available in event needs exploration for hemostasis prbc as per heme thank you will follow with recs cont abx worsening wbc wbc trending down comfortable appearing today no n/v Pt presented on admission in emaciated state. Pt has tracheostomy and GT. NO skin concerns noted to skin under collar of trach. NO erythema or evidence of skin erosion at GT site. Pt noted to have scaly pimple-like rash with webbing noted to R and L axillae, undersides of both breasts, Bilat groin and lower back. Tracking and webbing noted to hands and feet. Pt restless and scratching at skin. Non-Blanching erythema without induration or fluctuance noted to R and L hips and trochanteric areas.Non-blanching erythema noted along spine. Non-Blanching erythema without induration noted to Sacrum. Non-Blanching erythema noted to R and L Malleoli and both heels. Tx.Plan: Please apply Cavilon Skin Barrier to each bony Prominences at risks for Skin Breakdown. Cover each area with Optifoam drsgs. Change every 7 days and prn. Apply Moisture Barrier Paste to Sacrum. Cover with Optifoam drsg. Change every 3 days and prn. Reposition at least every 2hours or as tolerated. Off-load heels with pillow. APM/EMELI Mattress overlay. improving cont current care plan There is marked enlargement of the third and lateral ventricles and extra axial CSF spaces, in particular the former. There is considerable periventricular deep white matter low-attenuation. Otherwise normal mobley-white differentiation. No acute hemorrhage or edema. No mass effect nor midline shift. Visualized orbits and sinuses are unremarkable. The calvarium is intact Impression: Third and lateral ventriculomegaly. Associated enlargement of the extra axial CSF spaces indicates that this is probably due to central volume loss, but the possibility of hydrocephalus should also be considered. At the degree of volume loss is considerably out of proportion to patient's age. Correlate with clinical history Periventricular deep white matter low-attenuation. Probably on the basis of microvascular ischemic change but given patient's age the possibility of demyelinating disease should be considered as well. Negative for acute intracranial bleed or mass effect (3) GI bleed (4) G tube feedings Assessment & Plan: DAILY ESTIMATED NEEDS: Needs based on Underweight, critical care 37.3kg 30-40 kcals/kg 5364-4861 total kcals 1.25-2 g protein/kg 47-75 g total protein 25-35 mL/kg 933-1306 total fluid mLs NUTRITION DIAGNOSIS: Increased kcal and pro needs r/t underweight status as evidenced by BMI 14.1, pt is 68% of ideal body weight w/ generalized severe wasting, trach and peg dep. CURRENT TF:Vital AF 1.2 @55 x20 hrs ENTERAL NUTRITION RECOMMENDATIONS: Vital AF 1.2 @ 55ml/hr x20 hrs to provide 1100ml 1320kcal 83g prot, 892ml free water - Rec to continue elemental TF formula while stool C-diff positive, +LBM - HOLD 1HR BEFORE AND AFTER SYNTHROID MEDS - Flush per MD. HOB over 30 degrees ADDITIONAL RECOMMENDATIONS: 1) Per SNF: 5'4" and 81# Maintain calibrated bed scale wts w/ added P200 mattress 2) Lytes daily madhav w/ loose stools, replete as needed 3) Skin integrity: Continue BRIAN VIA GT BID + Vit C 4) Accuchecks for Hypoglycemia 5) Add probiotics for stool C-diff+ . George Woods Jan 19, 2020 12:43
--- NOTE | 2020-01-19 14:34 | Hematology/Onc Progress Note ---
Assessment/Plan Assessment/Plan # Thrombocytopenia med related v labs error --> plt trend 167-->61-->227 --> meds have been reviewed --> no hep or lovenox (if less than 50k plt) # Anemia rule out underlying gi bleed --> Dr. Carrillo has been consulted-->endosco gastric ulceration --> trend hgb 7-->7.4-->7.9-->8.1->9.6-->8.5->9.1-->10-->11-->10.3-->10.4 --> anemia panel ordered-->reviewed --> prn transfusion --> protonix started # Leukocytosis is likely related to pna on imaging --> abx has been started --> if wbc worsens, consider abx vanc/zosyn--> ceftriaxone-->vanc->fluc/flagyl/ vanc-->flagyl/fidoxomicin --> smear is noted --> wbc 25-->15-->14-->16->7.6-->12-->20->13 --> pressors prn # Sepsis --> on abx for pna --> pressors as needed # Pneumonia --> pulm, Dr. 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 x ray consultant care, will follow Subjective Constitutional: Denies: no symptoms, chills, fever, malaise, weakness, other HEENT: Denies: no symptoms, eye pain, blurred vision, tearing, double vision, ear pain, ear discharge, nose pain, nose congestion, throat pain, throat swelling, mouth pain, mouth swelling, other Cardiovascular: Denies: no symptoms, chest pain, edema, irregular heart rate, lightheadedness, palpitations, syncope, other Respiratory: Denies: no symptoms, cough, shortness of breath, SOB with excertion, SOB at rest, sputum, wheezing, other Genitourinary: Denies: no symptoms, burning, discharge, frequency, flank pain, hematuria, incontinence, pain, urgency, other Neurologic/Psychiatric: Denies: no symptoms, anxiety, depressed, emotional problems, headache, numbness, paresthesia, pre-existing deficit, seizure, tingling, tremors, weakness, other Endocrine: Denies: no symptoms, excessive sweating, flushing, intolerance to cold, intolerance to heat, increased hunger, increased thirst, increased urine, unexplained weight gain, unexplained weight loss, other Allergies: Coded Allergies: CARBAMAZEPINE (Verified Allergy, Unknown, 12/31/19) LORAZEPAM (Verified Allergy, Unknown, 12/31/19) Subjective 01/01 altered, trach, no bleedin wbc improved on abx, seen by gi 01/02 egd study noted, also with plts 61k, have vitaly Armendariz Rn, will recheck cbc 01/03 remains agitated, vitaly rn, no bleeding, cbc noted as well as id recs 01/04 on vent, with melena overnight, no bleeding, vitaly rn, labs reviewed 01/06 on vent, remains agitated, no bleeding, vitaly rn, smear is noted 01/07 on vent, restless, asymptomatic, noncooperative 01/[address] John obtained, reviewed, meds adjusted, eeg pending 01/09 labs noted, no bleeding, ativan has been discontinued, meds reviewed 01/10 trach to vent, agitated, with wrist restraints, no major changes, no bleeding 01/11 labs are reviewed, on trach to vent, no bleeding, agitated overnight, no complaints 01/13 labs noted, no bleeding, is on vent/trach, no bleeding, vitaly rn, labs are noted 01/14 labs are noted, no bleeding, remains on v/t, remains agitated, no bleeding 01/15 is c.diff positive, wbc higher at 21k, labs noted, on abx, reviewed gi, id recs 01/16 remains on vent, wbc is improved, in sr, as abx per id 01/17 recieved dopamine, tube feeds, on soft restraints, no bleeding, vitaly longoria 01/18 labs are noted, no bleeding, vitaly rn, no major changes Objective Objective Current Medications Medications (Trade) Dose Ordered Sig/Villa Route PRN Reason Start Time Stop Time Status Last Admin Dose Admin Acetaminophen (Tylenol) 650 mg Q6H PRN GT Temp >100.5 01/01/20 11:00 01/31/20 10:59 01/15/20 08:18 Ascorbic Acid (Vitamin C) 500 mg DAILY ORAL 01/01/20 09:00 01/31/20 08:59 01/19/20 09:00 Dopamine HCl/ Dextrose 250 ml @ 6.974 mls/ hr Q24H IV 01/13/20 19:00 04/12/20 18:59 01/17/20 17:16 Famotidine (Pepcid) 20 mg BID ORAL 01/10/20 18:00 04/09/20 17:59 01/19/20 09:00 Fidaxomicin (Dificid) 200 mg EVERY 12 HOURS ORAL 01/16/20 21:00 01/26/20 09:01 01/19/20 09:00 Fluconazole (Diflucan) 100 mg DAILY GT 01/15/20 11:00 01/22/20 10:59 01/19/20 09:00 Gabapentin (Neurontin) 600 mg TID GT 01/08/20 13:00 02/07/20 12:59 01/19/20 09:00 Haloperidol Lactate (Haldol) 5 mg Q6H PRN IM Agitation 01/01/20 23:30 02/15/20 23:29 01/17/20 12:04 Levetiracetam (Keppra) 1,500 mg Q12HR GT 01/07/20 21:00 02/07/20 08:59 01/19/20 09:00 Levothyroxine Sodium (Synthroid) 75 mcg DAILY ORAL 01/01/20 09:00 01/31/20 08:59 01/19/20 09:00 Metronidazole (Flagyl) 500 mg Q8HR ORAL 01/16/20 14:00 01/23/20 13:59 01/19/20 05:30 Midodrine (Pro-Amatine) 2.5 mg THREE TIMES A DAY ORAL 01/07/20 09:00 04/06/20 08:59 01/19/20 09:00 Multivitamins Therapeutic (Therapeutic Multivitamin) 1 ea DAILY ORAL 01/01/20 09:00 01/31/20 08:59 01/19/20 09:00 Ondansetron HCl (Zofran) 4 mg Q6H PRN ORAL Nausea & Vomiting 12/31/19 21:00 01/30/20 20:59 Oxcarbazepine (TrileptaL) 300 mg BEDTIME ORAL 01/10/20 21:00 02/07/20 20:59 01/18/20 21:25 Potassium Chloride (K-Dur) 20 meq TWICE A DAY GT 01/11/20 09:00 04/10/20 08:59 01/19/20 09:00 Thiamine HCl (Vitamin B1) 100 mg DAILY ORAL 01/01/20 09:00 01/31/20 08:59 01/19/20 09:00 Last 24 Hour Vital Signs Date Time Temp Pulse Resp B/P (MAP) Pulse Ox O2 Delivery O2 Flow Rate FiO2 01/19/20 13:05 77 30 30 01/19/20 11:05 64 19 30 01/19/20 10:45 60 01/19/20 09:05 99 01/19/20 09:05 81 22 30 01/19/20 09:04 30 01/19/20 08:00 115 01/19/20 08:00 98.4 92 22 109/65 (80) 100 01/19/20 08:00 Mechanical Ventilator 01/19/20 07:25 105 28 30 01/19/20 04:57 79 23 30 01/19/20 04:00 84 01/19/20 04:00 98.6 89 22 106/77 (87) 98 01/19/20 04:00 Mechanical Ventilator 01/19/20 04:00 30 01/19/20 02:43 69 20 30 01/19/20 00:32 70 16 30 01/19/20 00:00 89 01/19/20 00:00 97.1 89 22 95/61 (72) 99 01/19/20 00:00 Mechanical Ventilator 01/18/20 22:43 93 26 30 01/18/20 20:43 98 31 30 01/18/20 20:00 Mechanical Ventilator 01/18/20 20:00 83 01/18/20 20:00 30 01/18/20 20:00 98.4 83 22 104/61 (75) 99 01/18/20 18:48 70 26 30 01/18/20 18:46 107/54 01/18/20 18:00 Mechanical Ventilator 01/18/20 16:00 Mechanical Ventilator 01/18/20 16:00 30 01/18/20 16:00 97.7 77 22 107/54 (71) 99 01/18/20 16:00 71 01/18/20 12:00 Mechanical Ventilator 01/18/20 12:00 96.3 83 23 120/56 (77) 99 01/18/20 12:00 30 01/18/20 11:58 71 01/18/20 11:20 74 19 30 01/18/20 08:43 94 31 30 01/18/20 08:00 Mechanical Ventilator 01/18/20 08:00 30 01/18/20 08:00 73 01/18/20 08:00 114/60 01/18/20 08:00 97.5 72 20 91/50 (64) 100 01/18/20 07:27 83 30 30 01/18/20 07:27 100 01/18/20 07:00 91/50 01/18/20 05:00 48 28 30 01/18/20 04:00 66 01/18/20 04:00 97.0 65 20 97/58 (71) 100 01/18/20 04:00 Mechanical Ventilator 01/18/20 04:00 30 01/18/20 03:15 66 24 30 01/18/20 01:04 59 24 30 01/18/20 00:00 Mechanical Ventilator 01/18/20 00:00 97.9 59 20 97/57 (70) 100 01/18/20 00:00 63 01/18/20 00:00 30 01/17/20 22:58 74 30 30 01/17/20 21:14 62 18 30 01/17/20 20:00 57 01/17/20 20:00 97.7 61 20 109/58 (75) 100 01/17/20 20:00 Mechanical Ventilator 01/17/20 18:55 64 28 30 01/17/20 17:25 56 26 30 01/17/20 17:16 107/49 01/17/20 16:00 Mechanical Ventilator 01/17/20 16:00 30 01/17/20 16:00 53 01/17/20 16:00 97.7 59 20 107/49 (68) 98 01/17/20 14:39 60 19 30 Intake and Output 01/18/20 01/19/20 19:00 07:00 Intake Total 524.870 ml 788.688 ml Output Total 200 ml 250 ml Balance 324.870 ml 538.688 ml Intake Free Water 50 ml 100 ml IV Total 34.870 ml 83.688 ml Tube Feeding 440 ml 605 ml Output Urine Total 200 ml 100 ml Stool Total 150 ml # Bowel Movements 3 Labs Test 01/16/20 16:28 01/16/20 21:58 01/17/20 02:55 01/17/20 06:24 POC Whole Blood Glucose 91 MG/DL (74-106) 87 MG/DL (74-106) White Blood Count 13.0 K/UL (4.8-10.8) Red Blood Count 3.27 M/UL (4.20-5.40) Hemoglobin 10.4 G/DL (12.0-16.0) Hematocrit 30.6 % (37.0-47.0) Mean Corpuscular Volume 94 FL (80-99) Mean Corpuscular Hemoglobin 31.7 PG (27.0-31.0) Mean Corpuscular Hemoglobin Concent 33.9 G/DL (32.0-36.0) Red Cell Distribution Width 15.2 % (11.6-14.8) Platelet Count 314 K/UL (150-450) Mean Platelet Volume 6.5 FL (6.5-10.1) Neutrophils (%) (Auto) 67.5 % (45.0-75.0) Lymphocytes (%) (Auto) 13.1 % (20.0-45.0) Monocytes (%) (Auto) 9.1 % (1.0-10.0) Eosinophils (%) (Auto) 9.8 % (0.0-3.0) Basophils (%) (Auto) 0.5 % (0.0-2.0) Test 01/17/20 11:51 01/17/20 16:44 01/18/20 03:25 01/18/20 11:40 POC Whole Blood Glucose 82 MG/DL (74-106) 91 MG/DL (74-106) 86 MG/DL (74-106) Sodium Level 138 MMOL/L (136-145) Potassium Level 4.4 MMOL/L (3.5-5.1) Chloride Level 102 MMOL/L (98-107) Carbon Dioxide Level 29 MMOL/L (21-32) Anion Gap 7 mmol/L (5-15) Blood Urea Nitrogen 25 mg/dL (7-18) Creatinine 0.5 MG/DL (0.55-1.30) Estimat Glomerular Filtration Rate > 60 mL/min (>60) Glucose Level 87 MG/DL (74-106) Calcium Level 9.1 MG/DL (8.5-10.1) Phosphorus Level 3.7 MG/DL (2.5-4.9) Magnesium Level 1.8 MG/DL (1.8-2.4) Total Bilirubin 0.2 MG/DL (0.2-1.0) Aspartate Amino Transf (AST/SGOT) 23 U/L (15-37) Alanine Aminotransferase (ALT/SGPT) 30 U/L (12-78) Alkaline Phosphatase 126 U/L (46-116) Total Protein 7.8 G/DL (6.4-8.2) Albumin 3.0 G/DL (3.4-5.0) Globulin 4.8 g/dL Albumin/Globulin Ratio 0.6 (1.0-2.7) Height (Feet): 5 Height (Inches): 1.00 Weight (Pounds): 80 Objective Vital Signs General Appearance: ++ cachectic, chronically ill HEENT: normocephalic, atraumatic ++ trach Resp: other -. vent ++ Cardiovascular: regular rate, rhythm, no edema Gastrointestinal: gtube in place, without erythema Rectal: other - Hemoccult positive [place]: back normal, gait/station normal, non-tender Lymphatic: no adenopathy Baltazar Cortes MD Jan 19, 2020 14:34
[2020-01-19 16:00] VITALS: BP 124/78
--- NOTE | 2020-01-19 16:07 | Infectious Diseases Prog Note ---
Assessment/Plan 39yo F with: Sepsis Fever to 101.5>>Low grade ; SP Possible pna on CXR Leukocytosis; recurrent; increased- now improvign -01/13 CXR: no acute disease -01/12 u/a wbc tnct, nit neg, latrell +3; ucx >100k C. tropicalis Bcx NTD Cdiff colitis -Cdif toxin + -01/13 KUB: no acute findings Recurrent GIB 01/06 u/aneg 12/30 BCx 1/2 +CONS, likely contaminant 12/30 UA neg, COVID rapid Ag neg 12/30 CXR 1. Density overlying the bilateral lung apices. May represent pleural thickening, multifocal airspace opacities, versus summation artifact. 01/01 BCx Neg 01/02 BCx Neg Seizure episode -01/10 CT head: Third and lateral ventriculomegaly. Associated enlargement of the extra axial CSF spaces indicates that this is probably due to central volume loss, but the possibility of hydrocephalus should also be considered. At the degree of volume loss is considerably out of proportion to patient's age. Periventricular deep white matter low-attenuation. Probably on the basis of microvascular ischemic change but given patient's age the possibility of demyelinating disease should be considered as well. Negative for acute intracranial bleed or mass effect Possible Scabies SP tx w/ Permethrin and Ivermectin 12/31 R/o DVT: None on US 12/30 MRSA nares neg Recurrent GIBs, FOBT+ Hepatic encephalopathy, chronic S/p Trach/PEG Resides at SNF Plan: PO Dificid #4/10 as failing PO Vancomycin Cont PO fluconazole #5/5 for significant pyuria and leukocytosis Noted FLagyl 4 per GI 01/15 SP PO Vancomycin #8 01/08 SP Ceftriaxone #7 01/02 SP vanco #2, Zosyn #2 SP 2nd dose of ivermectin (01/08) Monitor CBC/CMP Monitor resp status Monitor temp and hemodynamics contact isolation f/u repeat cultures CBC, CMP am D/w RN and pharmacy staff Thank you for this consult. [facility] will continue to follow. Subjective Allergies: Coded Allergies: CARBAMAZEPINE (Verified Allergy, Unknown, 12/31/19) LORAZEPAM (Verified Allergy, Unknown, 12/31/19) afebrile no cbc today Objective Last 24 Hour Vital Signs Date Time Temp Pulse Resp B/P (MAP) Pulse Ox O2 Delivery O2 Flow Rate FiO2 01/19/20 15:05 88 27 30 01/19/20 13:05 77 30 30 01/19/20 12:00 Mechanical Ventilator 01/19/20 11:05 64 19 30 01/19/20 10:45 60 01/19/20 09:05 99 01/19/20 09:05 81 22 30 01/19/20 09:04 30 01/19/20 08:00 115 01/19/20 08:00 98.4 92 22 109/65 (80) 100 01/19/20 08:00 Mechanical Ventilator 01/19/20 07:25 105 28 30 01/19/20 04:57 79 23 30 01/19/20 04:00 84 01/19/20 04:00 98.6 89 22 106/77 (87) 98 01/19/20 04:00 Mechanical Ventilator 01/19/20 04:00 30 01/19/20 02:43 69 20 30 01/19/20 00:32 70 16 30 01/19/20 00:00 89 01/19/20 00:00 97.1 89 22 95/61 (72) 99 01/19/20 00:00 Mechanical Ventilator 01/18/20 22:43 93 26 30 01/18/20 20:43 98 31 30 01/18/20 20:00 Mechanical Ventilator 01/18/20 20:00 83 01/18/20 20:00 30 01/18/20 20:00 98.4 83 22 104/61 (75) 99 01/18/20 18:48 70 26 30 01/18/20 18:46 107/54 01/18/20 18:00 Mechanical Ventilator Height (Feet): 5 Height (Inches): 1.00 Weight (Pounds): 80 General Appearance: no apparent distress Neck: supple Cardiovascular: normal rate Respiratory/Chest: decreased breath sounds Abdomen: hypoactive bowel sounds Extremities: non-tender Current Medications Medications (Trade) Dose Ordered Sig/Villa Route PRN Reason Start Time Stop Time Status Last Admin Dose Admin Acetaminophen (Tylenol) 650 mg Q6H PRN GT Temp >100.5 01/01/20 11:00 01/31/20 10:59 01/15/20 08:18 Ascorbic Acid (Vitamin C) 500 mg DAILY ORAL 01/01/20 09:00 01/31/20 08:59 01/19/20 09:00 Dopamine HCl/ Dextrose 250 ml @ 6.974 mls/ hr Q24H IV 01/13/20 19:00 04/12/20 18:59 01/17/20 17:16 Famotidine (Pepcid) 20 mg BID ORAL 01/10/20 18:00 04/09/20 17:59 01/19/20 09:00 Fidaxomicin (Dificid) 200 mg EVERY 12 HOURS ORAL 01/16/20 21:00 01/26/20 09:01 01/19/20 09:00 Fluconazole (Diflucan) 100 mg DAILY GT 01/15/20 11:00 01/22/20 10:59 01/19/20 09:00 Gabapentin (Neurontin) 600 mg TID GT 01/08/20 13:00 02/07/20 12:59 01/19/20 13:00 Haloperidol Lactate (Haldol) 5 mg Q6H PRN IM Agitation 01/01/20 23:30 02/15/20 23:29 01/17/20 12:04 Levetiracetam (Keppra) 1,500 mg Q12HR GT 01/07/20 21:00 02/07/20 08:59 01/19/20 09:00 Levothyroxine Sodium (Synthroid) 75 mcg DAILY ORAL 01/01/20 09:00 01/31/20 08:59 01/19/20 09:00 Metronidazole (Flagyl) 500 mg Q8HR ORAL 01/16/20 14:00 01/23/20 13:59 01/19/20 14:00 Midodrine (Pro-Amatine) 2.5 mg THREE TIMES A DAY ORAL 01/07/20 09:00 04/06/20 08:59 01/19/20 13:00 Multivitamins Therapeutic (Therapeutic Multivitamin) 1 ea DAILY ORAL 01/01/20 09:00 01/31/20 08:59 01/19/20 09:00 Ondansetron HCl (Zofran) 4 mg Q6H PRN ORAL Nausea & Vomiting 12/31/19 21:00 01/30/20 20:59 Oxcarbazepine (TrileptaL) 300 mg BEDTIME ORAL 01/10/20 21:00 02/07/20 20:59 01/18/20 21:25 Potassium Chloride (K-Dur) 20 meq TWICE A DAY GT 01/11/20 09:00 04/10/20 08:59 01/19/20 09:00 Thiamine HCl (Vitamin B1) 100 mg DAILY ORAL 01/01/20 09:00 01/31/20 08:59 01/19/20 09:00 Char Morel M.D. Jan 19, 2020 16:07
[2020-01-19] MEDS: DOPamine 400mg/250ml 250 ML IV SCH (19:00)
--- NOTE | 2020-01-19 19:02 | General Progress Note ---
Assessment/Plan Status: stable, other - Patient is now hypotensive before over 46 she will receive 500 cc of normal saline bolus to be repeated blood pressure remained below 90 further management will be decided following the boluses treatment repeat laboratory tests will be done in a.m. GLENNY BISHOP MD Status Narrative Patient is awake eye contact short attention span does not appear to be in any respiratory distress she has severe extremity muscle wasting however his main issue in discharging the patient now is weaning the patient from dopamine drip to maintain her blood pressure and heart rate Patient need to be replaced on some medication for the same activity in order for her to be discharged theophylline level was communicated supplement can replace the dopamine drip. GLENNY BISHOP MD Assessment/Plan: Glenny Harrison Subjective Constitutional: Reports: no symptoms HEENT: Reports: no symptoms Cardiovascular: Reports: other Respiratory: Reports: no symptoms Gastrointestinal/Abdominal: Reports: no symptoms Neurologic/Psychiatric: Reports: anxiety Allergies: Coded Allergies: CARBAMAZEPINE (Verified Allergy, Unknown, 12/31/19) LORAZEPAM (Verified Allergy, Unknown, 12/31/19) Objective Last 24 Hour Vital Signs Date Time Temp Pulse Resp B/P (MAP) Pulse Ox O2 Delivery O2 Flow Rate FiO2 01/19/20 17:05 69 19 30 01/19/20 16:00 98.3 78 16 124/78 (93) 99 01/19/20 16:00 Mechanical Ventilator 01/19/20 16:00 82 01/19/20 16:00 30 01/19/20 15:05 88 27 30 01/19/20 13:05 77 30 30 01/19/20 12:00 Mechanical Ventilator 01/19/20 12:00 30 01/19/20 12:00 84 01/19/20 12:00 98.1 77 16 115/72 (86) 98 01/19/20 11:05 64 19 30 01/19/20 10:45 60 01/19/20 09:05 99 01/19/20 09:05 81 22 30 01/19/20 09:04 30 01/19/20 08:00 115 01/19/20 08:00 98.4 92 22 109/65 (80) 100 01/19/20 08:00 Mechanical Ventilator 01/19/20 07:25 105 28 30 01/19/20 04:57 79 23 30 01/19/20 04:00 84 01/19/20 04:00 98.6 89 22 106/77 (87) 98 01/19/20 04:00 Mechanical Ventilator 01/19/20 04:00 30 01/19/20 02:43 69 20 30 01/19/20 00:32 70 16 30 01/19/20 00:00 89 01/19/20 00:00 97.1 89 22 95/61 (72) 99 01/19/20 00:00 Mechanical Ventilator 01/18/20 22:43 93 26 30 01/18/20 20:43 98 31 30 01/18/20 20:00 Mechanical Ventilator 01/18/20 20:00 83 01/18/20 20:00 30 01/18/20 20:00 98.4 83 22 104/61 (75) 99 Intake and Output 01/18/20 01/19/20 19:00 07:00 Intake Total 524.870 ml 788.688 ml Output Total 200 ml 250 ml Balance 324.870 ml 538.688 ml Intake Free Water 50 ml 100 ml IV Total 34.870 ml 83.688 ml Tube Feeding 440 ml 605 ml Output Urine Total 200 ml 100 ml Stool Total 150 ml # Bowel Movements 3 Height (Feet): 5 Height (Inches): 1.00 Weight (Pounds): 80 General Appearance: alert, lethargic EENT: normal ENT inspection Neck: supple, other - No goiter normal Cardiovascular: normal rate, regular rhythm, no JVD Respiratory/Chest: lungs clear, normal breath sounds, no respiratory distress Abdomen: normal bowel sounds, non tender, soft, no organomegaly, no mass Extremities: non-tender, other - Severe lower extremity muscle wasting Neurologic: alert, aphasia, other - Brief eye contact short attention span Glenny Bishop MD Jan 19, 2020 19:02
[2020-01-19 20:00] VITALS: BP 108/65
--- NOTE | 2020-01-19 20:40 | Cardiology Progress Note ---
Assessment/Plan Assessment/Plan 1. Hypotension, could be due to Keppra, continue low dose midodrine. 2. Sinus bradycardia, resolved. 3. Anemia of chronic disease 4. Acute renal failure, resolved. 5. GI bleeding due to gastric ulceration. 6. Dysphagia, s/p PEG placement. 7. VDRF, s/p tracheostomy tube placement. Subjective Subjective Sinus rhythm at rate of 69. On the vent with FiO2 of 30%. Objective Last 24 Hour Vital Signs Date Time Temp Pulse Resp B/P (MAP) Pulse Ox O2 Delivery O2 Flow Rate FiO2 01/19/20 19:00 107/56 01/19/20 17:05 69 19 30 01/19/20 16:00 98.3 78 16 124/78 (93) 99 01/19/20 16:00 Mechanical Ventilator 01/19/20 16:00 82 01/19/20 16:00 30 01/19/20 15:05 88 27 30 01/19/20 13:05 77 30 30 01/19/20 12:00 Mechanical Ventilator 01/19/20 12:00 30 01/19/20 12:00 84 01/19/20 12:00 98.1 77 16 115/72 (86) 98 01/19/20 11:05 64 19 30 01/19/20 10:45 60 01/19/20 09:05 99 01/19/20 09:05 81 22 30 01/19/20 09:04 30 01/19/20 08:00 115 01/19/20 08:00 98.4 92 22 109/65 (80) 100 01/19/20 08:00 Mechanical Ventilator 01/19/20 07:25 105 28 30 01/19/20 04:57 79 23 30 01/19/20 04:00 84 01/19/20 04:00 98.6 89 22 106/77 (87) 98 01/19/20 04:00 Mechanical Ventilator 01/19/20 04:00 30 01/19/20 02:43 69 20 30 01/19/20 00:32 70 16 30 01/19/20 00:00 89 01/19/20 00:00 97.1 89 22 95/61 (72) 99 01/19/20 00:00 Mechanical Ventilator 01/18/20 22:43 93 26 30 01/18/20 20:43 98 31 30 Intake and Output 01/18/20 01/19/20 19:00 07:00 Intake Total 524.870 ml 788.688 ml Output Total 200 ml 250 ml Balance 324.870 ml 538.688 ml Intake Free Water 50 ml 100 ml IV Total 34.870 ml 83.688 ml Tube Feeding 440 ml 605 ml Output Urine Total 200 ml 100 ml Stool Total 150 ml # Bowel Movements 3 2D Echo: LVEF 65%, RVSP 23 mmHg, Grade I LVDD Objective HEENT: PERRLA, EOMI, Trach site with moderate secretions. NECK: Cannot assess JVP, no carotid bruit with normal upstroke. LUNGS: Bilateral rhonchi. CARDIAC: Regular rhythm and rate. Normal S1, S2 with no murmurs, gallops or rubs. ABDOMEN: Soft with G-tube. No hepatomegaly. EXTREMITIES: No edema, clubbing or cyanosis. Desmond Gleason MD Jan 19, 2020 20:40
[2020-01-19] MEDS: OXcarbazepine 150mg tab ORAL SCH (21:41)
[2020-01-20] VITALS: BP 103/53
[2020-01-20 04:00] VITALS: BP 93/67
[2020-01-20 04:34] LABS: BASOPHILS % (AUTO) 1.2 % (0.0-2.0); EOSINOPHILS % (AUTO) 10.3 % (0.0-3.0); HEMATOCRIT 35.8 % (37.0-47.0); HEMOGLOBIN 11.4 G/DL (12.0-16.0); LYMPHOCYTES % (AUTO) 19.5 % (20.0-45.0); MEAN CORPUSCULAR VOLUME 94 FL (80-99); PLATELET COUNT 375 K/UL (150-450); RED BLOOD COUNT 3.82 M/UL (4.20-5.40); RED CELL DISTRIBUTION WIDTH 14.9 % (11.6-14.8)
[2020-01-20] MEDS: metroNIDAZOLE 500mg tab ORAL SCH ×3 (05:10→20:59)
[2020-01-20 05:13] LABS: ALANINE AMINOTRANSFERASE 28 U/L (12-78); ALBUMIN 3.1 G/DL (3.4-5.0); ALBUMIN/GLOBULIN RATIO 0.6 (1.0-2.7); ALKALINE PHOSPHATASE 123 U/L (46-116); ANION GAP 9 mmol/L (5-15); ASPARTATE AMINO TRANSFERASE 29 U/L (15-37); BILIRUBIN,TOTAL 0.3 MG/DL (0.2-1.0); BLOOD UREA NITROGEN 30 mg/dL (7-18); CALCIUM 9.9 MG/DL (8.5-10.1); CARBON DIOXIDE 26 MMOL/L (21-32); CHLORIDE 103 MMOL/L (98-107); CREATININE 0.4 MG/DL (0.55-1.30); POTASSIUM 4.4 MMOL/L (3.5-5.1); SODIUM 138 MMOL/L (136-145)
[2020-01-20 05:36] LABS: PHOSPHORUS 3.4 MG/DL (2.5-4.9)
[2020-01-20 08:00] VITALS: BP 100/58
--- NOTE | 2020-01-20 08:04 | General Progress Note ---
Assessment/Plan Problem List: (1) G tube feedings ICD Codes: Z93.1 - Gastrostomy status SNOMED: 051185208, 212119272, 068622618 (2) GI bleed ICD Codes: K92.2 - Gastrointestinal hemorrhage, unspecified SNOMED: 79566576 (3) Sepsis ICD Codes: A41.9 - Sepsis, unspecified organism SNOMED: 45996656 (4) Pneumonia ICD Codes: J18.9 - Pneumonia, unspecified organism SNOMED: 159280516 Status: stable, other - Patient is now hypotensive before over 46 she will receive 500 cc of normal saline bolus to be repeated blood pressure remained below 90 further management will be decided following the boluses treatment repeat laboratory tests will be done in a.m. GEM MCKAY MD Assessment/Plan: s/p EGD gastric ulcer no recurrent bleed G TF monitor H&H C. Diff positive off ppi po vanco pepcid will fu Subjective ROS Limited/Unobtainable: No Allergies: Coded Allergies: CARBAMAZEPINE (Verified Allergy, Unknown, 12/31/19) LORAZEPAM (Verified Allergy, Unknown, 12/31/19) Objective Last 24 Hour Vital Signs Date Time Temp Pulse Resp B/P (MAP) Pulse Ox O2 Delivery O2 Flow Rate FiO2 01/20/20 07:13 100 31 30 01/20/20 05:39 76 26 30 01/20/20 04:00 Mechanical Ventilator 01/20/20 04:00 97.2 73 18 93/67 (76) 100 01/20/20 04:00 64 01/20/20 04:00 30 01/20/20 03:58 65 28 30 01/20/20 01:33 59 25 30 01/20/20 00:00 Mechanical Ventilator 01/20/20 00:00 98.5 63 18 103/53 (70) 100 01/20/20 00:00 30 01/19/20 23:32 60 01/19/20 23:07 65 26 30 01/19/20 21:26 64 21 30 01/19/20 20:00 30 01/19/20 20:00 98.7 67 16 108/65 (79) 100 01/19/20 20:00 Mechanical Ventilator 01/19/20 19:46 84 29 30 01/19/20 19:29 66 01/19/20 19:00 107/56 01/19/20 17:05 69 19 30 01/19/20 16:00 98.3 78 16 124/78 (93) 99 01/19/20 16:00 Mechanical Ventilator 01/19/20 16:00 82 01/19/20 16:00 30 01/19/20 15:05 88 27 30 01/19/20 13:05 77 30 30 01/19/20 12:00 Mechanical Ventilator 01/19/20 12:00 30 01/19/20 12:00 84 01/19/20 12:00 98.1 77 16 115/72 (86) 98 01/19/20 11:05 64 19 30 01/19/20 10:45 60 01/19/20 09:05 99 01/19/20 09:05 81 22 30 01/19/20 09:04 30 Intake and Output 01/19/20 01/20/20 19:00 07:00 Intake Total 901.974 ml 939.870 ml Output Total 1050 ml 850 ml Balance -148.026 ml 89.870 ml Intake Free Water 400 ml IV Total 6.974 ml 34.870 ml Tube Feeding 495 ml 605 ml Blood Product 300 ml Output Urine Total 850 ml 800 ml Stool Total 200 ml 50 ml Laboratory Tests 01/20/20 03:30: White Blood Count 11.0H, Red Blood Count 3.82L, Hemoglobin 11.4L, Hematocrit 35.8L, Mean Corpuscular Volume 94, Mean Corpuscular Hemoglobin 29.9, Mean Corpuscular Hemoglobin Concent 31.9L, Red Cell Distribution Width 14.9H, Platelet Count 375, Mean Platelet Volume 6.1L, Neutrophils (%) (Auto) 61.0, Lymphocytes (%) (Auto) 19.5L, Monocytes (%) (Auto) 8.0, Eosinophils (%) (Auto) 10.3H, Basophils (%) (Auto) 1.2, Sodium Level 138, Potassium Level 4.4, Chloride Level 103, Carbon Dioxide Level 26, Anion Gap 9, Blood Urea Nitrogen 30H, Creatinine 0.4L, Estimat Glomerular Filtration Rate > 60, Glucose Level 102 , Uric Acid 4.7, Calcium Level 9.9, Phosphorus Level 3.4, Magnesium Level 1.9, Total Bilirubin 0.3, Aspartate Amino Transf (AST/SGOT) 29, Alanine Aminotransferase (ALT/SGPT) 28, Alkaline Phosphatase 123H, Total Protein 8.1, Albumin 3.1L, Globulin 5.0, Albumin/Globulin Ratio 0.6L Height (Feet): 5 Height (Inches): 1.00 Weight (Pounds): 80 General Appearance: no apparent distress EENT: normal ENT inspection Neck: supple Cardiovascular: normal rate Respiratory/Chest: decreased breath sounds Abdomen: normal bowel sounds, non tender, soft Extremities: non-tender Satish Carrillo MD Jan 20, 2020 08:03
--- NOTE | 2020-01-20 08:41 | Pulmonology Progress Note ---
Ivanna Mora [employer] 01/20/20 0841: Subjective ROS Limited/Unobtainable: No Allergies: Coded Allergies: CARBAMAZEPINE (Verified Allergy, Unknown, 12/31/19) LORAZEPAM (Verified Allergy, Unknown, 12/31/19) All Systems: reviewed and negative except above Subjective leukocytosis trending down, no fevers still tachypnea intermittently BP better still on Dopamine gtt and Midodrine ABG stable on current settings CXR 01/13 no acute findings Objective Last 24 Hour Vital Signs Date Time Temp Pulse Resp B/P (MAP) Pulse Ox O2 Delivery O2 Flow Rate FiO2 01/20/20 07:13 100 31 30 01/20/20 05:39 76 26 30 01/20/20 04:00 Mechanical Ventilator 01/20/20 04:00 97.2 73 18 93/67 (76) 100 01/20/20 04:00 64 01/20/20 04:00 30 01/20/20 03:58 65 28 30 01/20/20 01:33 59 25 30 01/20/20 00:00 Mechanical Ventilator 01/20/20 00:00 98.5 63 18 103/53 (70) 100 01/20/20 00:00 30 01/19/20 23:32 60 01/19/20 23:07 65 26 30 01/19/20 21:26 64 21 30 01/19/20 20:00 30 01/19/20 20:00 98.7 67 16 108/65 (79) 100 01/19/20 20:00 Mechanical Ventilator 01/19/20 19:46 84 29 30 01/19/20 19:29 66 01/19/20 19:00 107/56 01/19/20 17:05 69 19 30 01/19/20 16:00 98.3 78 16 124/78 (93) 99 01/19/20 16:00 Mechanical Ventilator 01/19/20 16:00 82 01/19/20 16:00 30 01/19/20 15:05 88 27 30 01/19/20 13:05 77 30 30 01/19/20 12:00 Mechanical Ventilator 01/19/20 12:00 30 01/19/20 12:00 84 01/19/20 12:00 98.1 77 16 115/72 (86) 98 01/19/20 11:05 64 19 30 01/19/20 10:45 60 01/19/20 09:05 99 01/19/20 09:05 81 22 30 01/19/20 09:04 30 Intake and Output 01/19/20 01/20/20 19:00 07:00 Intake Total 901.974 ml 939.870 ml Output Total 1050 ml 850 ml Balance -148.026 ml 89.870 ml Intake Free Water 400 ml IV Total 6.974 ml 34.870 ml Tube Feeding 495 ml 605 ml Blood Product 300 ml Output Urine Total 850 ml 800 ml Stool Total 200 ml 50 ml Objective General Appearance: bedridden, pale, chronically ill looking, older than her biological age ; vent dependent female ; on vent SIMV 450-30%-12, PEEP 5 Lines, tubes and drains: peripheral, trach HEENT: normocephalic, atraumatic Neck: trach - Portex #7, secretions small amount, yellow color, thin consistency Respiratory/Chest: CTAB Cardiovascular/Chest: regular rate, regular rhythm Abdomen: non tender, soft, G tube Genitourinary/Rectal: [place] Extremities: no edema, muscle atrophy Neurologic: abnormal gait, poorly responsive, more awake , eyes open Musculoskeletal: atrophy BLE Skin: multiple tattoos Laboratory Tests 01/20/20 03:30: White Blood Count 11.0H, Red Blood Count 3.82L, Hemoglobin 11.4L, Hematocrit 35.8L, Mean Corpuscular Volume 94, Mean Corpuscular Hemoglobin 29.9, Mean Corpuscular Hemoglobin Concent 31.9L, Red Cell Distribution Width 14.9H, Platelet Count 375, Mean Platelet Volume 6.1L, Neutrophils (%) (Auto) 61.0, Lymphocytes (%) (Auto) 19.5L, Monocytes (%) (Auto) 8.0, Eosinophils (%) (Auto) 10.3H, Basophils (%) (Auto) 1.2, Sodium Level 138, Potassium Level 4.4, Chloride Level 103, Carbon Dioxide Level 26, Anion Gap 9, Blood Urea Nitrogen 30H, Creatinine 0.4L, Estimat Glomerular Filtration Rate > 60, Glucose Level 102 , Uric Acid 4.7, Calcium Level 9.9, Phosphorus Level 3.4, Magnesium Level 1.9, Total Bilirubin 0.3, Aspartate Amino Transf (AST/SGOT) 29, Alanine Aminotransferase (ALT/SGPT) 28, Alkaline Phosphatase 123H, Total Protein 8.1, Albumin 3.1L, Globulin 5.0, Albumin/Globulin Ratio 0.6L Current Medications Medications (Trade) Dose Ordered Sig/Villa Route PRN Reason Start Time Stop Time Status Last Admin Dose Admin Acetaminophen (Tylenol) 650 mg Q6H PRN GT Temp >100.5 01/01/20 11:00 01/31/20 10:59 01/15/20 08:18 Ascorbic Acid (Vitamin C) 500 mg DAILY ORAL 01/01/20 09:00 01/31/20 08:59 01/19/20 09:00 Dopamine HCl/ Dextrose 250 ml @ 6.974 mls/ hr Q24H IV 01/13/20 19:00 04/12/20 18:59 01/17/20 17:16 Famotidine (Pepcid) 20 mg BID ORAL 01/10/20 18:00 04/09/20 17:59 01/19/20 18:00 Fidaxomicin (Dificid) 200 mg EVERY 12 HOURS ORAL 01/16/20 21:00 01/26/20 09:01 01/19/20 21:42 Gabapentin (Neurontin) 600 mg TID GT 01/08/20 13:00 02/07/20 12:59 01/19/20 18:00 Haloperidol Lactate (Haldol) 5 mg Q6H PRN IM Agitation 01/01/20 23:30 02/15/20 23:29 01/17/20 12:04 Levetiracetam (Keppra) 1,500 mg Q12HR GT 01/07/20 21:00 02/07/20 08:59 01/19/20 21:41 Levothyroxine Sodium (Synthroid) 75 mcg DAILY ORAL 01/01/20 09:00 01/31/20 08:59 01/19/20 09:00 Metronidazole (Flagyl) 500 mg Q8HR ORAL 01/16/20 14:00 01/23/20 13:59 01/20/20 05:10 Midodrine (Pro-Amatine) 2.5 mg THREE TIMES A DAY ORAL 01/07/20 09:00 04/06/20 08:59 01/19/20 18:00 Multivitamins Therapeutic (Therapeutic Multivitamin) 1 ea DAILY ORAL 01/01/20 09:00 01/31/20 08:59 01/19/20 09:00 Ondansetron HCl (Zofran) 4 mg Q6H PRN ORAL Nausea & Vomiting 12/31/19 21:00 01/30/20 20:59 Oxcarbazepine (TrileptaL) 300 mg BEDTIME ORAL 01/10/20 21:00 02/07/20 20:59 01/19/20 21:41 Potassium Chloride (K-Dur) 20 meq TWICE A DAY GT 01/11/20 09:00 04/10/20 08:59 01/19/20 18:00 Thiamine HCl (Vitamin B1) 100 mg DAILY ORAL 01/01/20 09:00 01/31/20 08:59 01/19/20 09:00 Assessment/Plan Assessment/Plan ASSESSMENT VDRF/trach status Sepsis Possible pneumonia UTI recurrent GI bleeding C dif colitis Anemia secondary to GI bleeding Aspiration risk Dysphagia, feeding by G-tube Encephalopathy Acute kidney injury likely secondary to dehydration Bradycardia Hypotension Electrolyte imbalance Severe protein calorie malnutrition Hx of hypertension History of CVA Seizure disorder with witnessed seizure episode 01/07 Psychiatric disorder Presumed scabies, s/p Rx Thrombocytopenia-transient- resolved PLAN OF CARE JULAINA vent support, pulm toilet ABG stable on current settings, on SIMV mode 450-30-12 PEEP5 , no signs of resp distress on these settings keep settings as is and titrate as needed now tachypneic intermittently ABG repeated 01/14 due to tachypnea- remains stable CXR 01/13 stable pulm toilet via HHN Theophylline level was high -25; ->was dc prior leuk now trending down , no fevers, possibly due to C dif pancx-per ID CXR 01/13- no acute findings KUB 01/13- no acute findings UA + yeast , 01/12 UCX +yeast, started on Fluconazole 01/14 as per ID BCX 01/12 NGTD abx as per ID recs Vanco po was prior dc and switched to Dificid inflammatory markers : ESR-42, CRP- wnl prior BCX 1 +CONS likely contaminant, off Vanco ; repeated BCX 01/01 and 01/02 NGTD SCX + Proteus , was on Ceftriaxone as per ID recs for poss SBP in setting of GI bleeding - completed BCX 01/01 and 01/02 NGTD stool C dif 01/07 +, on oral vanco rapid COVID 19 NGT in ED aspiration precautions Venous Duplex BLE -negative, get SCD ( unable to give a/c given anemia) closely monitor hemodynamic status Protonix IV GT feeding stool OB positive transfuse to keep Hgb > 7. heme and GI follows s/p EGD 01/01 -> gastric ulcer across G tube site , no active bleeding HH at baseline monitor for any further episodes of Gi bleeding trend LFT-> trended down, hep panel NGT hx of cirrhosis- per GI management hypotension-> Midodrine, s/p IV fluids, on Dopamine gtt bradycardia -> Midodrine dose decreased and prior Theophylline was started by primary but dc due to increased level cardio follows HR better monitor renal parameters, lytes, avoid nephrotoxic BUN trending down, creat stable, likely prerenal due to dehydration replace e/lytes as per nephro recs monitor volumes seizure precautions, antiepileptic optimized as per neuro recs ammonia 49, fup with further neuro recs EEG - grossly abnormal; mild to mod encephalopathy, single ictal episode CT head no acute IC pathology BP management with current regimen SNF meds supportive care dietary recs s/p 12/31 Rx for presumed scabies with permethrin and Ivermectin, repeated Ivermectin 01/08 case discussed and evaluated by supervising physician Raul Esparza MD 01/20/20 1321: Subjective Allergies: Coded Allergies: CARBAMAZEPINE (Verified Allergy, Unknown, 12/31/19) LORAZEPAM (Verified Allergy, Unknown, 12/31/19) Assessment/Plan Assessment/Plan Patient seen and examined with [employer]. Agree with above A&P as it reflects our joint deliberations. Ivanna Mora NP Jan 20, 2020 08:41 Raul Esparza MD Jan 20, 2020 13:21
[2020-01-20] MEDS: Gabapentin 300 MG/6 ML Soln GT SCH ×2 (08:45→13:28)
[2020-01-20] MEDS: Multivitamin w/Minerals tab ORAL SCH (08:45)
[2020-01-20] MEDS: Ascorbic Acid 500mg tab ORAL SCH (08:45)
[2020-01-20] MEDS: levETIRAcetam 500mg/5ml Liquid GT SCH ×2 (08:45→20:54)
[2020-01-20] MEDS: Thiamine 100mg tab ORAL SCH (08:46)
[2020-01-20] MEDS: DOPamine 400mg/250ml 250 ML IV SCH (08:58)
--- NOTE | 2020-01-20 10:41 | Surgery Progress Note ---
Surgery Progress Note Subjective Symptoms: tolerating diet, passing flatus, BM Objective Last 24 Hour Vital Signs Date Time Temp Pulse Resp B/P (MAP) Pulse Ox O2 Delivery O2 Flow Rate FiO2 01/20/20 08:58 108/56 01/20/20 08:00 96 01/20/20 07:13 100 31 30 01/20/20 05:39 76 26 30 01/20/20 04:00 Mechanical Ventilator 01/20/20 04:00 97.2 73 18 93/67 (76) 100 01/20/20 04:00 64 01/20/20 04:00 30 01/20/20 03:58 65 28 30 01/20/20 01:33 59 25 30 01/20/20 00:00 Mechanical Ventilator 01/20/20 00:00 98.5 63 18 103/53 (70) 100 01/20/20 00:00 30 01/19/20 23:32 60 01/19/20 23:07 65 26 30 01/19/20 21:26 64 21 30 01/19/20 20:00 30 01/19/20 20:00 98.7 67 16 108/65 (79) 100 01/19/20 20:00 Mechanical Ventilator 01/19/20 19:46 84 29 30 01/19/20 19:29 66 01/19/20 19:00 107/56 01/19/20 17:05 69 19 30 01/19/20 16:00 98.3 78 16 124/78 (93) 99 01/19/20 16:00 Mechanical Ventilator 01/19/20 16:00 82 01/19/20 16:00 30 01/19/20 15:05 88 27 30 01/19/20 13:05 77 30 30 01/19/20 12:00 Mechanical Ventilator 01/19/20 12:00 30 01/19/20 12:00 84 01/19/20 12:00 98.1 77 16 115/72 (86) 98 01/19/20 11:05 64 19 30 01/19/20 10:45 60 I&O Intake and Output 01/19/20 01/20/20 19:00 07:00 Intake Total 901.974 ml 939.870 ml Output Total 1050 ml 850 ml Balance -148.026 ml 89.870 ml Intake Free Water 400 ml IV Total 6.974 ml 34.870 ml Tube Feeding 495 ml 605 ml Blood Product 300 ml Output Urine Total 850 ml 800 ml Stool Total 200 ml 50 ml Dressing: saturated Cardiovascular: RSR Respiratory: decreased breath sounds Abdomen: soft, non-tender, present bowel sounds Extremities: no edema, no cyanosis Laboratory Tests Test 01/20/20 03:30 White Blood Count 11.0 K/UL (4.8-10.8) H Red Blood Count 3.82 M/UL (4.20-5.40) L Hemoglobin 11.4 G/DL (12.0-16.0) L Hematocrit 35.8 % (37.0-47.0) L Mean Corpuscular Volume 94 FL (80-99) Mean Corpuscular Hemoglobin 29.9 PG (27.0-31.0) Mean Corpuscular Hemoglobin Concent 31.9 G/DL (32.0-36.0) L Red Cell Distribution Width 14.9 % (11.6-14.8) H Platelet Count 375 K/UL (150-450) Mean Platelet Volume 6.1 FL (6.5-10.1) L Neutrophils (%) (Auto) 61.0 % (45.0-75.0) Lymphocytes (%) (Auto) 19.5 % (20.0-45.0) L Monocytes (%) (Auto) 8.0 % (1.0-10.0) Eosinophils (%) (Auto) 10.3 % (0.0-3.0) H Basophils (%) (Auto) 1.2 % (0.0-2.0) Sodium Level 138 MMOL/L (136-145) Potassium Level 4.4 MMOL/L (3.5-5.1) Chloride Level 103 MMOL/L (98-107) Carbon Dioxide Level 26 MMOL/L (21-32) Anion Gap 9 mmol/L (5-15) Blood Urea Nitrogen 30 mg/dL (7-18) H Creatinine 0.4 MG/DL (0.55-1.30) L Estimat Glomerular Filtration Rate > 60 mL/min (>60) Glucose Level 102 MG/DL (74-106) Uric Acid 4.7 MG/DL (2.6-7.2) Calcium Level 9.9 MG/DL (8.5-10.1) Phosphorus Level 3.4 MG/DL (2.5-4.9) Magnesium Level 1.9 MG/DL (1.8-2.4) Total Bilirubin 0.3 MG/DL (0.2-1.0) Aspartate Amino Transf (AST/SGOT) 29 U/L (15-37) Alanine Aminotransferase (ALT/SGPT) 28 U/L (12-78) Alkaline Phosphatase 123 U/L (46-116) H Total Protein 8.1 G/DL (6.4-8.2) Albumin 3.1 G/DL (3.4-5.0) L Globulin 5.0 g/dL Albumin/Globulin Ratio 0.6 (1.0-2.7) L Plan Problems: (1) Pneumonia (2) Sepsis Assessment & Plan: leukocytosis anemia lactic acidosis agree with GI recommend EGD planned for 12/31 hold feeding for now trend h/h monitor for bleeding no acute hemorrhage will be available in event needs exploration for hemostasis prbc as per heme thank you will follow with recs cont abx worsening wbc wbc trending down comfortable appearing today no n/v Pt presented on admission in emaciated state. Pt has tracheostomy and GT. NO skin concerns noted to skin under collar of trach. NO erythema or evidence of skin erosion at GT site. Pt noted to have scaly pimple-like rash with webbing noted to R and L axillae, undersides of both breasts, Bilat groin and lower back. Tracking and webbing noted to hands and feet. Pt restless and scratching at skin. Non-Blanching erythema without induration or fluctuance noted to R and L hips and trochanteric areas.Non-blanching erythema noted along spine. Non-Blanching erythema without induration noted to Sacrum. Non-Blanching erythema noted to R and L Malleoli and both heels. Tx.Plan: Please apply Cavilon Skin Barrier to each bony Prominences at risks for Skin Breakdown. Cover each area with Optifoam drsgs. Change every 7 days and prn. Apply Moisture Barrier Paste to Sacrum. Cover with Optifoam drsg. Change every 3 days and prn. Reposition at least every 2hours or as tolerated. Off-load heels with pillow. APM/EMELI Mattress overlay. improving cont current care plan There is marked enlargement of the third and lateral ventricles and extra axial CSF spaces, in particular the former. There is considerable periventricular deep white matter low-attenuation. Otherwise normal mobley-white differentiation. No acute hemorrhage or edema. No mass effect nor midline shift. Visualized orbits and sinuses are unremarkable. The calvarium is intact Impression: Third and lateral ventriculomegaly. Associated enlargement of the extra axial CSF spaces indicates that this is probably due to central volume loss, but the possibility of hydrocephalus should also be considered. At the degree of volume loss is considerably out of proportion to patient's age. Correlate with clinical history Periventricular deep white matter low-attenuation. Probably on the basis of microvascular ischemic change but given patient's age the possibility of demyelinating disease should be considered as well. Negative for acute intracranial bleed or mass effect (3) GI bleed (4) G tube feedings Assessment & Plan: DAILY ESTIMATED NEEDS: Needs based on Underweight, critical care 37.3kg 30-40 kcals/kg 5435-1240 total kcals 1.25-2 g protein/kg 47-75 g total protein 25-35 mL/kg 933-1306 total fluid mLs NUTRITION DIAGNOSIS: Increased kcal and pro needs r/t underweight status as evidenced by BMI 14.1, pt is 68% of ideal body weight w/ generalized severe wasting, trach and peg dep. CURRENT TF:Vital AF 1.2 @55 x20 hrs ENTERAL NUTRITION RECOMMENDATIONS: Vital AF 1.2 @ 55ml/hr x20 hrs to provide 1100ml 1320kcal 83g prot, 892ml free water - Rec to continue elemental TF formula while stool C-diff positive, +LBM - HOLD 1HR BEFORE AND AFTER SYNTHROID MEDS - Flush per . HOB over 30 degrees ADDITIONAL RECOMMENDATIONS: 1) Per SNF: 5'4" and 81# Maintain calibrated bed scale wts w/ added P200 mattress 2) Lytes daily madhav w/ loose stools, replete as needed 3) Skin integrity: Continue BRIAN VIA GT BID + Vit C 4) Accuchecks for Hypoglycemia 5) Add probiotics for stool C-diff+ . George Woods Jan 20, 2020 10:40
--- NOTE | 2020-01-20 11:53 | Nephrology Progress Note ---
Assessment/Plan Problem List: (1) RICHARD (acute kidney injury) (2) Dehydration (3) Anemia (4) GI bleed (5) Malnutrition (6) Seizure disorder (7) Electrolyte imbalance Assessment Renal failure, in the form of prerenal azotemia, most likely secondary to GI bleed GI bleed, leading to severe anemia Sepsis, pneumonia Chronic tracheostomy, ventilator dependent History of CVA History of seizure disorder History of psychiatric disorder Severe malnutrition Electrolyte abnormalities Plan January 19: Labs reviewed. Stable from renal standpoint. January 18: No labs done today. Continue per consultants. Medications reviewed. January 17: Late note entry due to system problem at the [facility] today.Chemistry panel reviewed. Stable from renal standpoint of view. Continue per current management. January 16: No can panel today. Check lab tomorrow. Remains stable from renal standpoint of view. January 15: Lab reviewed. Renal parameters stable. January 14: Lab reviewed. Renal parameters stable. January 13: Labs reviewed. Stable from renal standpoint of view. January 12: Labs reviewed. Stable from renal standpoint of view January 11: No labs drawn today stable from renal standpoint of view January 10: Labs reviewed. Potassium supplement given. Continue per consultants. January 09: Lab reviewed. Potassium supplement given. IV fluid discontinued. January 08: Lab reviewed. Renal parameters stable. Continue per consultants. January 07: Lab reviewed. Renal parameters stable. Continue per consultants. January 06: Lab reviewed. Stable from renal standpoint of view. January 05: Labs reviewed. Stable from renal standpoint of view. Continue per consultants. January 04: No labs drawn today. Will check labs tomorrow. Continue per consultants. January 03: Lab reviewed. Renal parameters stable. IV fluid discontinued. High LFTs declining. Continue same. January 02: Lab reviewed. Renal parameters stable. Continue per PMD and consultants. LFTs remain elevated. Continue to monitor. Continue slow hydration Discontinue blood pressure medications as her blood pressure is low Discontinue diuretics Monitor renal parameters Transfusion as needed GI evaluation Correct electrolyte abnormalities Check B12 level, folate, and thyroid function tests: Results noted Subjective ROS Limited/Unobtainable: Yes Objective Objective Last 24 Hour Vital Signs Date Time Temp Pulse Resp B/P (MAP) Pulse Ox O2 Delivery O2 Flow Rate FiO2 01/20/20 11:06 98 32 30 01/20/20 09:00 98 01/20/20 09:00 99 34 30 01/20/20 08:58 108/56 01/20/20 08:00 98.8 96 19 100/58 (72) 100 01/20/20 08:00 30 01/20/20 08:00 96 01/20/20 07:13 100 31 30 01/20/20 05:39 76 26 30 01/20/20 04:00 Mechanical Ventilator 01/20/20 04:00 97.2 73 18 93/67 (76) 100 01/20/20 04:00 64 01/20/20 04:00 30 01/20/20 03:58 65 28 30 01/20/20 01:33 59 25 30 01/20/20 00:00 Mechanical Ventilator 01/20/20 00:00 98.5 63 18 103/53 (70) 100 01/20/20 00:00 30 01/19/20 23:32 60 01/19/20 23:07 65 26 30 01/19/20 21:26 64 21 30 01/19/20 20:00 30 01/19/20 20:00 98.7 67 16 108/65 (79) 100 01/19/20 20:00 Mechanical Ventilator 01/19/20 19:46 84 29 30 01/19/20 19:29 66 01/19/20 19:00 107/56 01/19/20 17:05 69 19 30 01/19/20 16:00 98.3 78 16 124/78 (93) 99 01/19/20 16:00 Mechanical Ventilator 01/19/20 16:00 82 01/19/20 16:00 30 01/19/20 15:05 88 27 30 01/19/20 13:05 77 30 30 01/19/20 12:00 Mechanical Ventilator 01/19/20 12:00 30 01/19/20 12:00 84 01/19/20 12:00 98.1 77 16 115/72 (86) 98 Intake and Output 01/19/20 01/20/20 19:00 07:00 Intake Total 901.974 ml 939.870 ml Output Total 1050 ml 850 ml Balance -148.026 ml 89.870 ml Intake Free Water 400 ml IV Total 6.974 ml 34.870 ml Tube Feeding 495 ml 605 ml Blood Product 300 ml Output Urine Total 850 ml 800 ml Stool Total 200 ml 50 ml Laboratory Tests 01/20/20 03:30: White Blood Count 11.0H, Red Blood Count 3.82L, Hemoglobin 11.4L, Hematocrit 35.8L, Mean Corpuscular Volume 94, Mean Corpuscular Hemoglobin 29.9, Mean Corpuscular Hemoglobin Concent 31.9L, Red Cell Distribution Width 14.9H, Platelet Count 375, Mean Platelet Volume 6.1L, Neutrophils (%) (Auto) 61.0, Lymphocytes (%) (Auto) 19.5L, Monocytes (%) (Auto) 8.0, Eosinophils (%) (Auto) 10.3H, Basophils (%) (Auto) 1.2, Sodium Level 138, Potassium Level 4.4, Chloride Level 103, Carbon Dioxide Level 26, Anion Gap 9, Blood Urea Nitrogen 30H, Creatinine 0.4L, Estimat Glomerular Filtration Rate > 60, Glucose Level 102 , Uric Acid 4.7, Calcium Level 9.9, Phosphorus Level 3.4, Magnesium Level 1.9, Total Bilirubin 0.3, Aspartate Amino Transf (AST/SGOT) 29, Alanine Aminotransferase (ALT/SGPT) 28, Alkaline Phosphatase 123H, Total Protein 8.1, Albumin 3.1L, Globulin 5.0, Albumin/Globulin Ratio 0.6L Height (Feet): 5 Height (Inches): 1.00 Weight (Pounds): 80 General Appearance: no apparent distress EENT: other - Trached and vent Cardiovascular: tachycardia Respiratory/Chest: decreased breath sounds Abdomen: soft Objective No change Chivo Holloway MD Jan 20, 2020 11:53
[2020-01-20 12:00] VITALS: BP 101/48
[2020-01-20 16:00] VITALS: BP 97/62
--- NOTE | 2020-01-20 18:38 | Cardiology Progress Note ---
Assessment/Plan Assessment/Plan 1. Hypotension, could be due to Keppra, continue low dose midodrine. 2. Sinus bradycardia, resolved. 3. Anemia of chronic disease 4. Acute renal failure, resolved. 5. GI bleeding due to gastric ulceration. 6. Dysphagia, s/p PEG placement. 7. VDRF, s/p tracheostomy tube placement. Subjective Subjective Sinus rhythm at rate of 70. On the vent with FiO2 of 30%. Objective Last 24 Hour Vital Signs Date Time Temp Pulse Resp B/P (MAP) Pulse Ox O2 Delivery O2 Flow Rate FiO2 01/20/20 17:21 70 25 30 01/20/20 16:00 97.9 67 16 97/62 (74) 100 01/20/20 16:00 Mechanical Ventilator 01/20/20 16:00 70 01/20/20 16:00 30 01/20/20 14:45 65 24 30 01/20/20 13:12 68 27 30 01/20/20 12:00 30 01/20/20 12:00 Mechanical Ventilator 01/20/20 12:00 64 01/20/20 12:00 97.7 69 20 101/48 (65) 100 01/20/20 11:06 98 32 30 01/20/20 09:00 98 01/20/20 09:00 99 34 30 01/20/20 08:58 108/56 01/20/20 08:00 Mechanical Ventilator 01/20/20 08:00 98.8 96 19 100/58 (72) 100 01/20/20 08:00 30 01/20/20 08:00 96 01/20/20 07:13 100 31 30 01/20/20 05:39 76 26 30 01/20/20 04:00 Mechanical Ventilator 01/20/20 04:00 97.2 73 18 93/67 (76) 100 01/20/20 04:00 64 01/20/20 04:00 30 01/20/20 03:58 65 28 30 01/20/20 01:33 59 25 30 01/20/20 00:00 Mechanical Ventilator 01/20/20 00:00 98.5 63 18 103/53 (70) 100 01/20/20 00:00 30 01/19/20 23:32 60 01/19/20 23:07 65 26 30 01/19/20 21:26 64 21 30 01/19/20 20:00 30 01/19/20 20:00 98.7 67 16 108/65 (79) 100 01/19/20 20:00 Mechanical Ventilator 01/19/20 19:46 84 29 30 01/19/20 19:29 66 01/19/20 19:00 107/56 Intake and Output 01/19/20 01/20/20 19:00 07:00 Intake Total 901.974 ml 994.870 ml Output Total 1050 ml 850 ml Balance -148.026 ml 144.870 ml Intake Free Water 400 ml IV Total 6.974 ml 34.870 ml Tube Feeding 495 ml 660 ml Blood Product 300 ml Output Urine Total 850 ml 800 ml Stool Total 200 ml 50 ml 2D Echo: LVEF 65%, RVSP 23 mmHg, Grade I LVDD Laboratory Tests Test 01/20/20 03:30 White Blood Count 11.0 K/UL (4.8-10.8) H Red Blood Count 3.82 M/UL (4.20-5.40) L Hemoglobin 11.4 G/DL (12.0-16.0) L Hematocrit 35.8 % (37.0-47.0) L Mean Corpuscular Volume 94 FL (80-99) Mean Corpuscular Hemoglobin 29.9 PG (27.0-31.0) Mean Corpuscular Hemoglobin Concent 31.9 G/DL (32.0-36.0) L Red Cell Distribution Width 14.9 % (11.6-14.8) H Platelet Count 375 K/UL (150-450) Mean Platelet Volume 6.1 FL (6.5-10.1) L Neutrophils (%) (Auto) 61.0 % (45.0-75.0) Lymphocytes (%) (Auto) 19.5 % (20.0-45.0) L Monocytes (%) (Auto) 8.0 % (1.0-10.0) Eosinophils (%) (Auto) 10.3 % (0.0-3.0) H Basophils (%) (Auto) 1.2 % (0.0-2.0) Sodium Level 138 MMOL/L (136-145) Potassium Level 4.4 MMOL/L (3.5-5.1) Chloride Level 103 MMOL/L (98-107) Carbon Dioxide Level 26 MMOL/L (21-32) Anion Gap 9 mmol/L (5-15) Blood Urea Nitrogen 30 mg/dL (7-18) H Creatinine 0.4 MG/DL (0.55-1.30) L Estimat Glomerular Filtration Rate > 60 mL/min (>60) Glucose Level 102 MG/DL (74-106) Uric Acid 4.7 MG/DL (2.6-7.2) Calcium Level 9.9 MG/DL (8.5-10.1) Phosphorus Level 3.4 MG/DL (2.5-4.9) Magnesium Level 1.9 MG/DL (1.8-2.4) Total Bilirubin 0.3 MG/DL (0.2-1.0) Aspartate Amino Transf (AST/SGOT) 29 U/L (15-37) Alanine Aminotransferase (ALT/SGPT) 28 U/L (12-78) Alkaline Phosphatase 123 U/L (46-116) H Total Protein 8.1 G/DL (6.4-8.2) Albumin 3.1 G/DL (3.4-5.0) L Globulin 5.0 g/dL Albumin/Globulin Ratio 0.6 (1.0-2.7) L Objective HEENT: PERRLA, EOMI, Trach site with moderate secretions. NECK: Cannot assess JVP, no carotid bruit with normal upstroke. LUNGS: Bilateral rhonchi. CARDIAC: Regular rhythm and rate. Normal S1, S2 with no murmurs, gallops or rubs. ABDOMEN: Soft with G-tube. No hepatomegaly. EXTREMITIES: No edema, clubbing or cyanosis. Desmond Gleason MD Jan 20, 2020 18:38
--- NOTE | 2020-01-20 19:37 | General Progress Note ---
Assessment/Plan Status: stable, other - Patient is now hypotensive before over 46 she will receive 500 cc of normal saline bolus to be repeated blood pressure remained below 90 further management will be decided following the boluses treatment repeat laboratory tests will be done in kori BISHOP MD Status Narrative Patient had today seizures that was treated by increasing gabapentin to 9 900 mg 3 times daily she still remains on dopamine 5 mcg/min we will follow her response to the high-dose gabapentin include reversible causes and significant swelling residual issues repeat laboratory tests will be done in kori BISHOP MD Assessment/Plan: Glenny Harrison Subjective Constitutional: Reports: weakness, other - Patient here today several seizure all of them showed a fullness and 1 minute that self resolved HEENT: Reports: no symptoms Cardiovascular: Reports: no symptoms Respiratory: Reports: no symptoms Gastrointestinal/Abdominal: Reports: no symptoms Genitourinary: Reports: no symptoms Neurologic/Psychiatric: Reports: seizure, other - She is now in different physical examination Endocrine: Reports: no symptoms Allergies: Coded Allergies: CARBAMAZEPINE (Verified Allergy, Unknown, 12/31/19) LORAZEPAM (Verified Allergy, Unknown, 12/31/19) Objective Last 24 Hour Vital Signs Date Time Temp Pulse Resp B/P (MAP) Pulse Ox O2 Delivery O2 Flow Rate FiO2 01/20/20 17:21 70 25 30 01/20/20 16:00 97.9 67 16 97/62 (74) 100 01/20/20 16:00 Mechanical Ventilator 01/20/20 16:00 70 01/20/20 16:00 30 01/20/20 14:45 65 24 30 01/20/20 13:12 68 27 30 01/20/20 12:00 30 01/20/20 12:00 Mechanical Ventilator 01/20/20 12:00 64 01/20/20 12:00 97.7 69 20 101/48 (65) 100 01/20/20 11:06 98 32 30 01/20/20 09:00 98 01/20/20 09:00 99 34 30 01/20/20 08:58 108/56 01/20/20 08:00 Mechanical Ventilator 01/20/20 08:00 98.8 96 19 100/58 (72) 100 01/20/20 08:00 30 01/20/20 08:00 96 01/20/20 07:13 100 31 30 01/20/20 05:39 76 26 30 01/20/20 04:00 Mechanical Ventilator 01/20/20 04:00 97.2 73 18 93/67 (76) 100 01/20/20 04:00 64 01/20/20 04:00 30 01/20/20 03:58 65 28 30 01/20/20 01:33 59 25 30 01/20/20 00:00 Mechanical Ventilator 01/20/20 00:00 98.5 63 18 103/53 (70) 100 01/20/20 00:00 30 01/19/20 23:32 60 01/19/20 23:07 65 26 30 01/19/20 21:26 64 21 30 01/19/20 20:00 30 01/19/20 20:00 98.7 67 16 108/65 (79) 100 01/19/20 20:00 Mechanical Ventilator 01/19/20 19:46 84 29 30 Intake and Output 01/19/20 01/20/20 19:00 07:00 Intake Total 901.974 ml 994.870 ml Output Total 1050 ml 850 ml Balance -148.026 ml 144.870 ml Intake Free Water 400 ml IV Total 6.974 ml 34.870 ml Tube Feeding 495 ml 660 ml Blood Product 300 ml Output Urine Total 850 ml 800 ml Stool Total 200 ml 50 ml Laboratory Tests 01/20/20 03:30: White Blood Count 11.0H, Red Blood Count 3.82L, Hemoglobin 11.4L, Hematocrit 35.8L, Mean Corpuscular Volume 94, Mean Corpuscular Hemoglobin 29.9, Mean Corpuscular Hemoglobin Concent 31.9L, Red Cell Distribution Width 14.9H, Platelet Count 375, Mean Platelet Volume 6.1L, Neutrophils (%) (Auto) 61.0, Lymphocytes (%) (Auto) 19.5L, Monocytes (%) (Auto) 8.0, Eosinophils (%) (Auto) 10.3H, Basophils (%) (Auto) 1.2, Sodium Level 138, Potassium Level 4.4, Chloride Level 103, Carbon Dioxide Level 26, Anion Gap 9, Blood Urea Nitrogen 30H, Creatinine 0.4L, Estimat Glomerular Filtration Rate > 60, Glucose Level 102 , Uric Acid 4.7, Calcium Level 9.9, Phosphorus Level 3.4, Magnesium Level 1.9, Total Bilirubin 0.3, Aspartate Amino Transf (AST/SGOT) 29, Alanine Aminotransferase (ALT/SGPT) 28, Alkaline Phosphatase 123H, Total Protein 8.1, Albumin 3.1L, Globulin 5.0, Albumin/Globulin Ratio 0.6L Height (Feet): 5 Height (Inches): 1.00 Weight (Pounds): 80 General Appearance: no apparent distress, alert, lethargic EENT: normal ENT inspection Neck: supple Cardiovascular: normal rate, regular rhythm, no gallop/murmur, no JVD Respiratory/Chest: lungs clear, normal breath sounds, no respiratory distress Abdomen: non tender, soft, no organomegaly, no mass Extremities: non-tender Neurologic: alert Skin: other - Assessment of her responsiveness limited to brief eye contact short attention span and indifference to the exam Glenny Bishop MD Jan 20, 2020 19:37
[2020-01-20 20:00] VITALS: BP 112/66
[2020-01-20] MEDS: OXcarbazepine 150mg tab ORAL SCH (20:54)
[2020-01-21] VITALS: BP 106/78
[2020-01-21 03:44] VITALS: BP 90/56
[2020-01-21] MEDS: metroNIDAZOLE 500mg tab ORAL SCH ×3 (05:05→21:06)
[2020-01-21 07:02] LABS: ANION GAP 8 mmol/L (5-15); BLOOD UREA NITROGEN 26 mg/dL (7-18); CARBON DIOXIDE 30 MMOL/L (21-32); CHLORIDE 104 MMOL/L (98-107); CREATININE 0.5 MG/DL (0.55-1.30); POTASSIUM 4.3 MMOL/L (3.5-5.1); SODIUM 142 MMOL/L (136-145)
--- NOTE | 2020-01-21 07:36 | Hematology/Onc Progress Note ---
Assessment/Plan Assessment/Plan # Thrombocytopenia med related v labs error --> plt trend 167-->61-->227 --> meds have been reviewed --> no hep or lovenox (if less than 50k plt) # Anemia rule out underlying gi bleed --> Dr. Carrillo has been consulted-->endosco gastric ulceration --> trend hgb 7-->7.4-->7.9-->8.1->9.6-->8.5->9.1-->10-->11-->10.3-->10.4 --> anemia panel ordered-->reviewed --> prn transfusion --> protonix started # Leukocytosis is likely related to pna on imaging --> abx has been started --> if wbc worsens, consider abx vanc/zosyn--> ceftriaxone-->vanc->fluc/flagyl/ vanc-->flagyl/fidoxomicin --> smear is noted --> wbc 25-->15-->14-->16->7.6-->12-->20->13 --> pressors prn # Sepsis --> on abx for pna --> pressors as needed # Pneumonia --> pulm, Dr. 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 banking consultant care, will follow Subjective Constitutional: Denies: no symptoms, chills, fever, malaise, weakness, other HEENT: Denies: no symptoms, eye pain, blurred vision, tearing, double vision, ear pain, ear discharge, nose pain, nose congestion, throat pain, throat swelling, mouth pain, mouth swelling, other Cardiovascular: Denies: no symptoms, chest pain, edema, irregular heart rate, lightheadedness, palpitations, syncope, other Respiratory: Denies: no symptoms, cough, shortness of breath, SOB with excertion, SOB at rest, sputum, wheezing, other Gastrointestinal/Abdominal: Denies: no symptoms, abdomen distended, abdominal pain, black stools, tarry stools, blood in stool, constipated, diarrhea, difficulty swallowing, nausea, poor appetite, poor fluid intake, rectal bleeding , vomiting, other Genitourinary: Denies: no symptoms, burning, discharge, frequency, flank pain, hematuria, incontinence, pain, urgency, other Neurologic/Psychiatric: Denies: no symptoms, anxiety, depressed, emotional problems, headache, numbness, paresthesia, pre-existing deficit, seizure, tingling, tremors, weakness, other Endocrine: Denies: no symptoms, excessive sweating, flushing, intolerance to cold, intolerance to heat, increased hunger, increased thirst, increased urine, unexplained weight gain, unexplained weight loss, other Hematologic/Lymphatic: Denies: no symptoms, anemia, easy bleeding, easy bruising, adenopathy, other Allergies: Coded Allergies: CARBAMAZEPINE (Verified Allergy, Unknown, 12/31/19) LORAZEPAM (Verified Allergy, Unknown, 12/31/19) Subjective 01/01 altered, trach, no bleedin wbc improved on abx, seen by gi 01/02 egd study noted, also with plts 61k, have vitaly Armendariz Rn, will recheck cbc 01/03 remains agitated, vitaly rn, no bleeding, cbc noted as well as id recs 01/04 on vent, with melena overnight, no bleeding, vitaly rn, labs reviewed 01/06 on vent, remains agitated, no bleeding, vitaly rn, smear is noted 01/07 on vent, restless, asymptomatic, noncooperative 01/[address] John obtained, reviewed, meds adjusted, eeg pending 01/09 labs noted, no bleeding, ativan has been discontinued, meds reviewed 01/10 trach to vent, agitated, with wrist restraints, no major changes, no bleeding 01/11 labs are reviewed, on trach to vent, no bleeding, agitated overnight, no complaints 01/13 labs noted, no bleeding, is on vent/trach, no bleeding, vitaly rn, labs are noted 01/14 labs are noted, no bleeding, remains on v/t, remains agitated, no bleeding 01/15 is c.diff positive, wbc higher at 21k, labs noted, on abx, reviewed gi, id recs 01/16 remains on vent, wbc is improved, in sr, as abx per id 01/17 recieved dopamine, tube feeds, on soft restraints, no bleeding, dw rn 01/18 labs are noted, no bleeding, dw rn, no major changes 01/20 on dopamine gtt, with restraints, no major changes, labs noted Objective Objective Current Medications Medications (Trade) Dose Ordered Sig/Villa Route PRN Reason Start Time Stop Time Status Last Admin Dose Admin Acetaminophen (Tylenol) 650 mg Q6H PRN GT Temp >100.5 01/01/20 11:00 01/31/20 10:59 01/15/20 08:18 Ascorbic Acid (Vitamin C) 500 mg DAILY ORAL 01/01/20 09:00 01/31/20 08:59 01/20/20 08:45 Dopamine HCl/ Dextrose 250 ml @ 6.974 mls/ hr Q24H IV 01/13/20 19:00 04/12/20 18:59 01/20/20 08:58 Famotidine (Pepcid) 20 mg BID ORAL 01/10/20 18:00 04/09/20 17:59 01/20/20 17:37 Fidaxomicin (Dificid) 200 mg EVERY 12 HOURS ORAL 01/16/20 21:00 01/26/20 09:01 01/20/20 20:54 Gabapentin (Neurontin) 900 mg TID GT 01/20/20 18:00 02/19/20 17:59 01/20/20 18:10 Haloperidol Lactate (Haldol) 5 mg Q6H PRN IM Agitation 01/01/20 23:30 02/15/20 23:29 01/17/20 12:04 Levetiracetam (Keppra) 1,500 mg Q12HR GT 01/07/20 21:00 02/07/20 08:59 01/20/20 20:54 Levothyroxine Sodium (Synthroid) 75 mcg DAILY ORAL 01/01/20 09:00 01/31/20 08:59 01/20/20 08:46 Metronidazole (Flagyl) 500 mg Q8HR ORAL 01/16/20 14:00 01/23/20 13:59 01/21/20 05:05 Midodrine (Pro-Amatine) 2.5 mg THREE TIMES A DAY ORAL 01/07/20 09:00 04/06/20 08:59 01/20/20 17:37 Multivitamins Therapeutic (Therapeutic Multivitamin) 1 ea DAILY ORAL 01/01/20 09:00 01/31/20 08:59 01/20/20 08:45 Ondansetron HCl (Zofran) 4 mg Q6H PRN ORAL Nausea & Vomiting 12/31/19 21:00 01/30/20 20:59 Oxcarbazepine (TrileptaL) 300 mg BEDTIME ORAL 01/10/20 21:00 02/07/20 20:59 01/20/20 20:54 Potassium Chloride (K-Dur) 20 meq TWICE A DAY GT 01/11/20 09:00 04/10/20 08:59 01/20/20 17:37 Thiamine HCl (Vitamin B1) 100 mg DAILY ORAL 01/01/20 09:00 01/31/20 08:59 01/20/20 08:46 Last 24 Hour Vital Signs Date Time Temp Pulse Resp B/P (MAP) Pulse Ox O2 Delivery O2 Flow Rate FiO2 01/21/20 07:00 67 24 30 01/21/20 05:19 64 19 30 01/21/20 04:00 Mechanical Ventilator 01/21/20 04:00 30 01/21/20 03:45 63 21 30 01/21/20 03:44 97.5 57 18 90/56 (67) 100 01/21/20 03:41 61 01/21/20 01:44 65 17 30 01/21/20 00:00 97.2 60 18 106/78 (87) 99 01/21/20 00:00 Mechanical Ventilator 01/21/20 00:00 30 01/21/20 00:00 53 01/20/20 23:48 61 20 30 01/20/20 21:57 55 17 30 01/20/20 20:00 Mechanical Ventilator 01/20/20 20:00 30 01/20/20 20:00 97.3 61 18 112/66 (81) 100 01/20/20 19:27 64 18 30 01/20/20 19:25 58 01/20/20 17:21 70 25 30 01/20/20 16:00 97.9 67 16 97/62 (74) 100 01/20/20 16:00 Mechanical Ventilator 01/20/20 16:00 70 01/20/20 16:00 30 01/20/20 14:45 65 24 30 01/20/20 13:12 68 27 30 01/20/20 12:00 30 01/20/20 12:00 Mechanical Ventilator 01/20/20 12:00 64 01/20/20 12:00 97.7 69 20 101/48 (65) 100 01/20/20 11:06 98 32 30 01/20/20 09:00 98 01/20/20 09:00 99 34 30 01/20/20 08:58 108/56 01/20/20 08:00 Mechanical Ventilator 01/20/20 08:00 98.8 96 19 100/58 (72) 100 01/20/20 08:00 30 01/20/20 08:00 96 01/20/20 07:13 100 31 30 01/20/20 05:39 76 26 30 01/20/20 04:00 Mechanical Ventilator 01/20/20 04:00 97.2 73 18 93/67 (76) 100 01/20/20 04:00 64 01/20/20 04:00 30 01/20/20 03:58 65 28 30 01/20/20 01:33 59 25 30 01/20/20 00:00 Mechanical Ventilator 01/20/20 00:00 98.5 63 18 103/53 (70) 100 01/20/20 00:00 30 01/19/20 23:32 60 01/19/20 23:07 65 26 30 01/19/20 21:26 64 21 30 01/19/20 20:00 30 01/19/20 20:00 98.7 67 16 108/65 (79) 100 01/19/20 20:00 Mechanical Ventilator 01/19/20 19:46 84 29 30 01/19/20 19:29 66 01/19/20 19:00 107/56 01/19/20 17:05 69 19 30 01/19/20 16:00 98.3 78 16 124/78 (93) 99 01/19/20 16:00 Mechanical Ventilator 01/19/20 16:00 82 01/19/20 16:00 30 01/19/20 15:05 88 27 30 01/19/20 13:05 77 30 30 01/19/20 12:00 Mechanical Ventilator 01/19/20 12:00 30 01/19/20 12:00 84 01/19/20 12:00 98.1 77 16 115/72 (86) 98 9/4/20 11:05 64 19 30 01/19/20 10:45 60 01/19/20 09:05 99 01/19/20 09:05 81 22 30 01/19/20 09:04 30 01/19/20 08:00 115 01/19/20 08:00 98.4 92 22 109/65 (80) 100 01/19/20 08:00 Mechanical Ventilator Intake and Output 01/20/20 01/21/20 19:00 07:00 Intake Total 969.740 ml 988.688 ml Output Total 300 ml 350 ml Balance 669.740 ml 638.688 ml Intake Free Water 300 ml IV Total 69.740 ml 83.688 ml Tube Feeding 660 ml 605 ml Other 240 ml Output Urine Total 200 ml 275 ml Stool Total 100 ml 75 ml Labs Test 01/18/20 11:40 01/20/20 03:30 01/21/20 04:45 POC Whole Blood Glucose 86 MG/DL (74-106) White Blood Count 11.0 K/UL (4.8-10.8) Red Blood Count 3.82 M/UL (4.20-5.40) Hemoglobin 11.4 G/DL (12.0-16.0) Hematocrit 35.8 % (37.0-47.0) Mean Corpuscular Volume 94 FL (80-99) Mean Corpuscular Hemoglobin 29.9 PG (27.0-31.0) Mean Corpuscular Hemoglobin Concent 31.9 G/DL (32.0-36.0) Red Cell Distribution Width 14.9 % (11.6-14.8) Platelet Count 375 K/UL (150-450) Mean Platelet Volume 6.1 FL (6.5-10.1) Neutrophils (%) (Auto) 61.0 % (45.0-75.0) Lymphocytes (%) (Auto) 19.5 % (20.0-45.0) Monocytes (%) (Auto) 8.0 % (1.0-10.0) Eosinophils (%) (Auto) 10.3 % (0.0-3.0) Basophils (%) (Auto) 1.2 % (0.0-2.0) Sodium Level 138 MMOL/L (136-145) 142 MMOL/L (136-145) Potassium Level 4.4 MMOL/L (3.5-5.1) 4.3 MMOL/L (3.5-5.1) Chloride Level 103 MMOL/L (98-107) 104 MMOL/L (98-107) Carbon Dioxide Level 26 MMOL/L (21-32) 30 MMOL/L (21-32) Anion Gap 9 mmol/L (5-15) 8 mmol/L (5-15) Blood Urea Nitrogen 30 mg/dL (7-18) 26 mg/dL (7-18) Creatinine 0.4 MG/DL (0.55-1.30) 0.5 MG/DL (0.55-1.30) Estimat Glomerular Filtration Rate > 60 mL/min (>60) > 60 mL/min (>60) Glucose Level 102 MG/DL (74-106) 104 MG/DL (74-106) Uric Acid 4.7 MG/DL (2.6-7.2) Calcium Level 9.9 MG/DL (8.5-10.1) 10.0 MG/DL (8.5-10.1) Phosphorus Level 3.4 MG/DL (2.5-4.9) Magnesium Level 1.9 MG/DL (1.8-2.4) Total Bilirubin 0.3 MG/DL (0.2-1.0) Aspartate Amino Transf (AST/SGOT) 29 U/L (15-37) Alanine Aminotransferase (ALT/SGPT) 28 U/L (12-78) Alkaline Phosphatase 123 U/L (46-116) Total Protein 8.1 G/DL (6.4-8.2) Albumin 3.1 G/DL (3.4-5.0) Globulin 5.0 g/dL Albumin/Globulin Ratio 0.6 (1.0-2.7) Height (Feet): 5 Height (Inches): 1.00 Weight (Pounds): 80 Objective Vital Signs General Appearance: ++ cachectic, chronically ill HEENT: normocephalic, atraumatic ++ trach Resp: other -. vent ++ Cardiovascular: regular rate, rhythm, no edema Gastrointestinal: gtube in place, without erythema Rectal: other - Hemoccult positive [place]: back normal, gait/station normal, non-tender Lymphatic: no adenopathy Kleynberg,Baltazar L. MD Jan 21, 2020 07:36
--- NOTE | 2020-01-21 07:41 | General Progress Note ---
Assessment/Plan Problem List: (1) G tube feedings ICD Codes: Z93.1 - Gastrostomy status SNOMED: 148356626, 523408863, 937175379 (2) GI bleed ICD Codes: K92.2 - Gastrointestinal hemorrhage, unspecified SNOMED: 56008017 (3) Sepsis ICD Codes: A41.9 - Sepsis, unspecified organism SNOMED: 39685829 (4) Pneumonia ICD Codes: J18.9 - Pneumonia, unspecified organism SNOMED: 535576189 Status: stable, other - Patient is now hypotensive before over 46 she will receive 500 cc of normal saline bolus to be repeated blood pressure remained below 90 further management will be decided following the boluses treatment repeat laboratory tests will be done in a.m. GEM MCKAY MD Assessment/Plan: s/p EGD gastric ulcer no recurrent bleed G TF monitor H&H C. Diff positive off ppi po vanco pepcid will fu Subjective ROS Limited/Unobtainable: No Allergies: Coded Allergies: CARBAMAZEPINE (Verified Allergy, Unknown, 12/31/19) LORAZEPAM (Verified Allergy, Unknown, 12/31/19) Objective Last 24 Hour Vital Signs Date Time Temp Pulse Resp B/P (MAP) Pulse Ox O2 Delivery O2 Flow Rate FiO2 01/21/20 07:00 67 24 30 01/21/20 05:19 64 19 30 01/21/20 04:00 Mechanical Ventilator 01/21/20 04:00 30 01/21/20 03:45 63 21 30 01/21/20 03:44 97.5 57 18 90/56 (67) 100 01/21/20 03:41 61 01/21/20 01:44 65 17 30 01/21/20 00:00 97.2 60 18 106/78 (87) 99 01/21/20 00:00 Mechanical Ventilator 01/21/20 00:00 30 01/21/20 00:00 53 01/20/20 23:48 61 20 30 01/20/20 21:57 55 17 30 01/20/20 20:00 Mechanical Ventilator 01/20/20 20:00 30 01/20/20 20:00 97.3 61 18 112/66 (81) 100 01/20/20 19:27 64 18 30 01/20/20 19:25 58 01/20/20 17:21 70 25 30 01/20/20 16:00 97.9 67 16 97/62 (74) 100 01/20/20 16:00 Mechanical Ventilator 01/20/20 16:00 70 01/20/20 16:00 30 01/20/20 14:45 65 24 30 01/20/20 13:12 68 27 30 01/20/20 12:00 30 01/20/20 12:00 Mechanical Ventilator 01/20/20 12:00 64 01/20/20 12:00 97.7 69 20 101/48 (65) 100 01/20/20 11:06 98 32 30 01/20/20 09:00 98 01/20/20 09:00 99 34 30 01/20/20 08:58 108/56 01/20/20 08:00 Mechanical Ventilator 01/20/20 08:00 98.8 96 19 100/58 (72) 100 01/20/20 08:00 30 01/20/20 08:00 96 Intake and Output 01/20/20 01/21/20 19:00 07:00 Intake Total 969.740 ml 988.688 ml Output Total 300 ml 350 ml Balance 669.740 ml 638.688 ml Intake Free Water 300 ml IV Total 69.740 ml 83.688 ml Tube Feeding 660 ml 605 ml Other 240 ml Output Urine Total 200 ml 275 ml Stool Total 100 ml 75 ml Laboratory Tests 01/21/20 04:45: Sodium Level 142, Potassium Level 4.3, Chloride Level 104, Carbon Dioxide Level 30, Anion Gap 8, Blood Urea Nitrogen 26H, Creatinine 0.5L, Estimat Glomerular Filtration Rate > 60, Glucose Level 104, Calcium Level 10.0 Height (Feet): 5 Height (Inches): 1.00 Weight (Pounds): 80 General Appearance: no apparent distress EENT: normal ENT inspection Neck: supple Cardiovascular: normal rate Respiratory/Chest: decreased breath sounds Abdomen: normal bowel sounds, non tender, soft Extremities: non-tender Satish Carrillo MD Jan 21, 2020 07:41
[2020-01-21 08:00] VITALS: BP 101/63
--- NOTE | 2020-01-21 08:32 | Pulmonology Progress Note ---
Ivanna Mora CONVERTING TECHNICIAN 01/21/20 0832: Subjective ROS Limited/Unobtainable: No Allergies: Coded Allergies: CARBAMAZEPINE (Verified Allergy, Unknown, 12/31/19) LORAZEPAM (Verified Allergy, Unknown, 12/31/19) All Systems: reviewed and negative except above Subjective leukocytosis trending down, no labs this am no fevers still tachypnea intermittently BP better still on Dopamine gtt and Midodrine ABG stable on current settings CXR 01/13 no acute findings Objective Last 24 Hour Vital Signs Date Time Temp Pulse Resp B/P (MAP) Pulse Ox O2 Delivery O2 Flow Rate FiO2 01/21/20 08:00 Mechanical Ventilator 01/21/20 08:00 74 01/21/20 08:00 97.9 76 19 101/63 (76) 96 01/21/20 08:00 30 01/21/20 07:00 67 24 30 01/21/20 05:19 64 19 30 01/21/20 04:00 Mechanical Ventilator 01/21/20 04:00 30 01/21/20 03:45 63 21 30 01/21/20 03:44 97.5 57 18 90/56 (67) 100 01/21/20 03:41 61 01/21/20 01:44 65 17 30 01/21/20 00:00 97.2 60 18 106/78 (87) 99 01/21/20 00:00 Mechanical Ventilator 01/21/20 00:00 30 01/21/20 00:00 53 01/20/20 23:48 61 20 30 01/20/20 21:57 55 17 30 01/20/20 20:00 Mechanical Ventilator 01/20/20 20:00 30 01/20/20 20:00 97.3 61 18 112/66 (81) 100 01/20/20 19:27 64 18 30 01/20/20 19:25 58 01/20/20 17:21 70 25 30 01/20/20 16:00 97.9 67 16 97/62 (74) 100 01/20/20 16:00 Mechanical Ventilator 01/20/20 16:00 70 01/20/20 16:00 30 01/20/20 14:45 65 24 30 01/20/20 13:12 68 27 30 01/20/20 12:00 30 01/20/20 12:00 Mechanical Ventilator 01/20/20 12:00 64 01/20/20 12:00 97.7 69 20 101/48 (65) 100 01/20/20 11:06 98 32 30 01/20/20 09:00 98 01/20/20 09:00 99 34 30 01/20/20 08:58 108/56 Intake and Output 01/20/20 01/21/20 19:00 07:00 Intake Total 969.740 ml 988.688 ml Output Total 300 ml 350 ml Balance 669.740 ml 638.688 ml Intake Free Water 300 ml IV Total 69.740 ml 83.688 ml Tube Feeding 660 ml 605 ml Other 240 ml Output Urine Total 200 ml 275 ml Stool Total 100 ml 75 ml Objective General Appearance: bedridden, pale, chronically ill looking, older than her biological age ; vent dependent female ; on vent SIMV 450-30%-12, PEEP 5 Lines, tubes and drains: peripheral, trach HEENT: normocephalic, atraumatic Neck: trach - Portex #7, secretions small amount, yellow color, thin consistency Respiratory/Chest: CTAB Cardiovascular/Chest: regular rate, regular rhythm Abdomen: non tender, soft, G tube Genitourinary/Rectal: [place] Extremities: no edema, muscle atrophy Neurologic: abnormal gait, poorly responsive, more awake , eyes open Musculoskeletal: atrophy BLE Skin: multiple tattoos Laboratory Tests 01/21/20 04:45: Sodium Level 142, Potassium Level 4.3, Chloride Level 104, Carbon Dioxide Level 30, Anion Gap 8, Blood Urea Nitrogen 26H, Creatinine 0.5L, Estimat Glomerular Filtration Rate > 60, Glucose Level 104, Calcium Level 10.0 Current Medications Medications (Trade) Dose Ordered Sig/Villa Route PRN Reason Start Time Stop Time Status Last Admin Dose Admin Acetaminophen (Tylenol) 650 mg Q6H PRN GT Temp >100.5 01/01/20 11:00 01/31/20 10:59 01/15/20 08:18 Ascorbic Acid (Vitamin C) 500 mg DAILY ORAL 01/01/20 09:00 01/31/20 08:59 01/20/20 08:45 Dopamine HCl/ Dextrose 250 ml @ 6.974 mls/ hr Q24H IV 01/13/20 19:00 04/12/20 18:59 01/20/20 08:58 Famotidine (Pepcid) 20 mg BID ORAL 01/10/20 18:00 04/09/20 17:59 01/20/20 17:37 Fidaxomicin (Dificid) 200 mg EVERY 12 HOURS ORAL 01/16/20 21:00 01/26/20 09:01 01/20/20 20:54 Gabapentin (Neurontin) 900 mg TID GT 01/20/20 18:00 02/19/20 17:59 01/20/20 18:10 Haloperidol Lactate (Haldol) 5 mg Q6H PRN IM Agitation 01/01/20 23:30 02/15/20 23:29 01/17/20 12:04 Levetiracetam (Keppra) 1,500 mg Q12HR GT 01/07/20 21:00 02/07/20 08:59 01/20/20 20:54 Levothyroxine Sodium (Synthroid) 75 mcg DAILY ORAL 01/01/20 09:00 01/31/20 08:59 01/20/20 08:46 Metronidazole (Flagyl) 500 mg Q8HR ORAL 01/16/20 14:00 01/23/20 13:59 01/21/20 05:05 Midodrine (Pro-Amatine) 2.5 mg THREE TIMES A DAY ORAL 01/07/20 09:00 04/06/20 08:59 01/20/20 17:37 Multivitamins Therapeutic (Therapeutic Multivitamin) 1 ea DAILY ORAL 01/01/20 09:00 01/31/20 08:59 01/20/20 08:45 Ondansetron HCl (Zofran) 4 mg Q6H PRN ORAL Nausea & Vomiting 12/31/19 21:00 01/30/20 20:59 Oxcarbazepine (TrileptaL) 300 mg BEDTIME ORAL 01/10/20 21:00 02/07/20 20:59 01/20/20 20:54 Potassium Chloride (K-Dur) 20 meq TWICE A DAY GT 01/11/20 09:00 04/10/20 08:59 01/20/20 17:37 Thiamine HCl (Vitamin B1) 100 mg DAILY ORAL 01/01/20 09:00 01/31/20 08:59 01/20/20 08:46 Assessment/Plan Assessment/Plan ASSESSMENT VDRF/trach status Sepsis Possible pneumonia UTI recurrent GI bleeding C dif colitis Anemia secondary to GI bleeding Aspiration risk Dysphagia, feeding by G-tube Encephalopathy Acute kidney injury likely secondary to dehydration Bradycardia Hypotension Electrolyte imbalance Severe protein calorie malnutrition Hx of hypertension History of CVA Seizure disorder with witnessed seizure episode 01/07 Psychiatric disorder Presumed scabies, s/p Rx Thrombocytopenia-transient- resolved PLAN OF CARE JULIANA vent support, pulm toilet ABG stable on current settings, on SIMV mode 450-30-12 PEEP5 , no signs of resp distress on these settings keep settings as is and titrate as needed now tachypneic intermittently ABG repeated 01/14 due to tachypnea- remains stable CXR 01/13 stable pulm toilet via HHN Theophylline level was high -25; ->was dc prior leuk now trending down , no fevers, possibly due to C dif pancx-per ID CXR 01/13- no acute findings KUB 01/13- no acute findings UA + yeast , 01/12 UCX +yeast, started on Fluconazole 01/14 as per ID - completed BCX 01/12 NGTD abx as per ID recs Vanco po was prior dc and switched to Dificid , also on Flagyl per GI inflammatory markers : ESR-42, CRP- wnl prior BCX 05/18 +CONS likely contaminant, off Vanco ; repeated BCX 01/01 and 01/02 NGTD SCX + Proteus , was on Ceftriaxone as per ID recs for poss SBP in setting of GI bleeding - completed BCX 01/01 and 01/02 NGTD stool C dif 01/07 +, on oral vanco rapid COVID 19 NGT in ED aspiration precautions Venous Duplex BLE -negative, get SCD ( unable to give a/c given anemia) closely monitor hemodynamic status Protonix IV GT feeding stool OB positive transfuse to keep Hgb > 7. heme and GI follows s/p EGD 01/01 -> gastric ulcer across G tube site , no active bleeding HH at baseline monitor for any further episodes of Gi bleeding trend LFT-> trended down, hep panel NGT hx of cirrhosis- per GI management hypotension-> Midodrine, s/p IV fluids, on Dopamine gtt bradycardia -> Midodrine dose decreased and prior Theophylline was started by primary but dc due to increased level cardio follows HR better monitor renal parameters, lytes, avoid nephrotoxic BUN trending down, creat stable, likely prerenal due to dehydration replace e/lytes as per nephro recs monitor volumes seizure precautions, antiepileptic optimized as per neuro recs ammonia 49, fup with further neuro recs EEG - grossly abnormal; mild to mod encephalopathy, single ictal episode CT head no acute IC pathology BP management with current regimen SNF meds supportive care dietary recs s/p 12/31 Rx for presumed scabies with permethrin and Ivermectin, repeated Ivermectin 01/08 case discussed and evaluated by supervising physician Raul Esparza MD 01/21/20 1153: Subjective Allergies: Coded Allergies: CARBAMAZEPINE (Verified Allergy, Unknown, 12/31/19) LORAZEPAM (Verified Allergy, Unknown, 12/31/19) Assessment/Plan Assessment/Plan Patient seen and examined with CONVERTING TECHNICIAN. Agree with above A&P as it reflects our joint deliberations. Ivanna Mora NP Jan 21, 2020 08:32 Raul Esparza MD Jan 21, 2020 11:53
[2020-01-21] MEDS: Ascorbic Acid 500mg tab ORAL SCH (10:02)
[2020-01-21] MEDS: Multivitamin w/Minerals tab ORAL SCH (10:03)
[2020-01-21] MEDS: levETIRAcetam 500mg/5ml Liquid GT SCH ×2 (10:03→21:06)
--- NOTE | 2020-01-21 10:03 | Infectious Diseases Prog Note ---
Assessment/Plan 39yo F with: Sepsis Fever to 101.5>>Low grade ; SP Possible pna on CXR Leukocytosis; recurrent; increased- now improvign -01/13 CXR: no acute disease -01/12 u/a wbc tnct, nit neg, latrell +3; ucx >100k C. tropicalis Bcx NTD Cdiff colitis -Cdif toxin + -01/13 KUB: no acute findings Recurrent GIB 01/06 u/aneg 12/30 BCx 1/2 +CONS, likely contaminant 12/30 UA neg, COVID rapid Ag neg 12/30 CXR 1. Density overlying the bilateral lung apices. May represent pleural thickening, multifocal airspace opacities, versus summation artifact. 01/01 BCx Neg 01/02 BCx Neg Seizure episode -01/10 CT head: Third and lateral ventriculomegaly. Associated enlargement of the extra axial CSF spaces indicates that this is probably due to central volume loss, but the possibility of hydrocephalus should also be considered. At the degree of volume loss is considerably out of proportion to patient's age. Periventricular deep white matter low-attenuation. Probably on the basis of microvascular ischemic change but given patient's age the possibility of demyelinating disease should be considered as well. Negative for acute intracranial bleed or mass effect Possible Scabies SP tx w/ Permethrin and Ivermectin 12/31 R/o DVT: None on US 12/30 MRSA nares neg Recurrent GIBs, FOBT+ Hepatic encephalopathy, chronic S/p Trach/PEG Resides at SNF Plan: PO Dificid #6/10 as failing PO Vancomycin Noted FLagyl 6 per GI 01/19/20 SP fluconazole #5 01/15 SP PO Vancomycin #8 01/08 SP Ceftriaxone #7 01/02 SP vanco #2, Zosyn #2 SP 2nd dose of ivermectin (01/08) Monitor CBC/CMP Monitor resp status Monitor temp and hemodynamics contact isolation f/u repeat cultures CBC, CMP am D/w RN and pharmacy staff Thank you for this consult. [facility] will continue to follow. Subjective Allergies: Coded Allergies: CARBAMAZEPINE (Verified Allergy, Unknown, 12/31/19) LORAZEPAM (Verified Allergy, Unknown, 12/31/19) Afebrile Leukocytosis steadily decreasing No BM today Objective Last 24 Hour Vital Signs Date Time Temp Pulse Resp B/P (MAP) Pulse Ox O2 Delivery O2 Flow Rate FiO2 01/21/20 08:00 Mechanical Ventilator 01/21/20 08:00 74 01/21/20 08:00 97.9 76 19 101/63 (76) 96 01/21/20 08:00 30 01/21/20 07:00 67 24 30 01/21/20 05:19 64 19 30 01/21/20 04:00 Mechanical Ventilator 01/21/20 04:00 30 01/21/20 03:45 63 21 30 01/21/20 03:44 97.5 57 18 90/56 (67) 100 01/21/20 03:41 61 01/21/20 01:44 65 17 30 01/21/20 00:00 97.2 60 18 106/78 (87) 99 01/21/20 00:00 Mechanical Ventilator 01/21/20 00:00 30 01/21/20 00:00 53 01/20/20 23:48 61 20 30 01/20/20 21:57 55 17 30 01/20/20 20:00 Mechanical Ventilator 01/20/20 20:00 30 01/20/20 20:00 97.3 61 18 112/66 (81) 100 01/20/20 19:27 64 18 30 01/20/20 19:25 58 01/20/20 17:21 70 25 30 01/20/20 16:00 97.9 67 16 97/62 (74) 100 01/20/20 16:00 Mechanical Ventilator 01/20/20 16:00 70 01/20/20 16:00 30 01/20/20 14:45 65 24 30 01/20/20 13:12 68 27 30 01/20/20 12:00 30 01/20/20 12:00 Mechanical Ventilator 01/20/20 12:00 64 01/20/20 12:00 97.7 69 20 101/48 (65) 100 01/20/20 11:06 98 32 30 Height (Feet): 5 Height (Inches): 1.00 Weight (Pounds): 80 GEN: NAD HEENT: NCAT, MMM, EOMI Pulm: Equal chest rise and fall B/L, NO accessory muscle use ABD: Soft, ND Laboratory Tests Test 01/21/20 04:45 Sodium Level 142 MMOL/L (136-145) Potassium Level 4.3 MMOL/L (3.5-5.1) Chloride Level 104 MMOL/L (98-107) Carbon Dioxide Level 30 MMOL/L (21-32) Anion Gap 8 mmol/L (5-15) Blood Urea Nitrogen 26 mg/dL (7-18) H Creatinine 0.5 MG/DL (0.55-1.30) L Estimat Glomerular Filtration Rate > 60 mL/min (>60) Glucose Level 104 MG/DL (74-106) Calcium Level 10.0 MG/DL (8.5-10.1) Current Medications Medications (Trade) Dose Ordered Sig/Villa Route PRN Reason Start Time Stop Time Status Last Admin Dose Admin Acetaminophen (Tylenol) 650 mg Q6H PRN GT Temp >100.5 01/01/20 11:00 01/31/20 10:59 01/15/20 08:18 Ascorbic Acid (Vitamin C) 500 mg DAILY ORAL 01/01/20 09:00 01/31/20 08:59 01/20/20 08:45 Dopamine HCl/ Dextrose 250 ml @ 6.974 mls/ hr Q24H IV 01/13/20 19:00 04/12/20 18:59 01/20/20 08:58 Famotidine (Pepcid) 20 mg BID ORAL 01/10/20 18:00 04/09/20 17:59 01/20/20 17:37 Fidaxomicin (Dificid) 200 mg EVERY 12 HOURS ORAL 01/16/20 21:00 01/26/20 09:01 01/20/20 20:54 Gabapentin (Neurontin) 900 mg TID GT 01/20/20 18:00 02/19/20 17:59 01/20/20 18:10 Haloperidol Lactate (Haldol) 5 mg Q6H PRN IM Agitation 01/01/20 23:30 02/15/20 23:29 01/17/20 12:04 Levetiracetam (Keppra) 1,500 mg Q12HR GT 01/07/20 21:00 02/07/20 08:59 01/20/20 20:54 Levothyroxine Sodium (Synthroid) 75 mcg DAILY ORAL 01/01/20 09:00 01/31/20 08:59 01/20/20 08:46 Metronidazole (Flagyl) 500 mg Q8HR ORAL 01/16/20 14:00 01/23/20 13:59 01/21/20 05:05 Midodrine (Pro-Amatine) 2.5 mg THREE TIMES A DAY ORAL 01/07/20 09:00 04/06/20 08:59 01/20/20 17:37 Multivitamins Therapeutic (Therapeutic Multivitamin) 1 ea DAILY ORAL 01/01/20 09:00 01/31/20 08:59 01/20/20 08:45 Ondansetron HCl (Zofran) 4 mg Q6H PRN ORAL Nausea & Vomiting 12/31/19 21:00 01/30/20 20:59 Oxcarbazepine (TrileptaL) 300 mg BEDTIME ORAL 01/10/20 21:00 02/07/20 20:59 01/20/20 20:54 Potassium Chloride (K-Dur) 20 meq TWICE A DAY GT 01/11/20 09:00 04/10/20 08:59 01/20/20 17:37 Thiamine HCl (Vitamin B1) 100 mg DAILY ORAL 01/01/20 09:00 01/31/20 08:59 01/20/20 08:46 Jesus Hanson MD Jan 21, 2020 10:03
[2020-01-21] MEDS: Thiamine 100mg tab ORAL SCH (10:10)
--- NOTE | 2020-01-21 11:55 | Nephrology Progress Note ---
Assessment/Plan Problem List: (1) RICHARD (acute kidney injury) (2) Dehydration (3) Anemia (4) GI bleed (5) Malnutrition (6) Seizure disorder (7) Electrolyte imbalance Assessment Renal failure, in the form of prerenal azotemia, most likely secondary to GI bleed GI bleed, leading to severe anemia Sepsis, pneumonia Chronic tracheostomy, ventilator dependent History of CVA History of seizure disorder History of psychiatric disorder Severe malnutrition Electrolyte abnormalities Plan January 20: Labs reviewed. Renal parameters stable. January 19: Labs reviewed. Stable from renal standpoint. January 18: No labs done today. Continue per consultants. Medications reviewed. January 17: Late note entry due to system problem at the [facility] today.Chemistry panel reviewed. Stable from renal standpoint of view. Continue per current management. January 16: No can panel today. Check lab tomorrow. Remains stable from renal standpoint of view. January 15: Lab reviewed. Renal parameters stable. January 14: Lab reviewed. Renal parameters stable. January 13: Labs reviewed. Stable from renal standpoint of view. January 12: Labs reviewed. Stable from renal standpoint of view January 11: No labs drawn today stable from renal standpoint of view January 10: Labs reviewed. Potassium supplement given. Continue per consultants. January 09: Lab reviewed. Potassium supplement given. IV fluid discontinued. January 08: Lab reviewed. Renal parameters stable. Continue per consultants. January 07: Lab reviewed. Renal parameters stable. Continue per consultants. January 06: Lab reviewed. Stable from renal standpoint of view. January 05: Labs reviewed. Stable from renal standpoint of view. Continue per consultants. January 04: No labs drawn today. Will check labs tomorrow. Continue per consultants. January 03: Lab reviewed. Renal parameters stable. IV fluid discontinued. High LFTs declining. Continue same. January 02: Lab reviewed. Renal parameters stable. Continue per PMD and consultants. LFTs remain elevated. Continue to monitor. Continue slow hydration Discontinue blood pressure medications as her blood pressure is low Discontinue diuretics Monitor renal parameters Transfusion as needed GI evaluation Correct electrolyte abnormalities Check B12 level, folate, and thyroid function tests: Results noted Subjective ROS Limited/Unobtainable: Yes Objective Objective Last 24 Hour Vital Signs Date Time Temp Pulse Resp B/P (MAP) Pulse Ox O2 Delivery O2 Flow Rate FiO2 01/21/20 09:30 100 01/21/20 09:10 79 20 30 01/21/20 08:00 Mechanical Ventilator 01/21/20 08:00 74 01/21/20 08:00 97.9 76 19 101/63 (76) 96 01/21/20 08:00 30 01/21/20 07:00 67 24 30 01/21/20 05:19 64 19 30 01/21/20 04:00 Mechanical Ventilator 01/21/20 04:00 30 01/21/20 03:45 63 21 30 01/21/20 03:44 97.5 57 18 90/56 (67) 100 01/21/20 03:41 61 01/21/20 01:44 65 17 30 01/21/20 00:00 97.2 60 18 106/78 (87) 99 01/21/20 00:00 Mechanical Ventilator 01/21/20 00:00 30 01/21/20 00:00 53 01/20/20 23:48 61 20 30 01/20/20 21:57 55 17 30 01/20/20 20:00 Mechanical Ventilator 01/20/20 20:00 30 01/20/20 20:00 97.3 61 18 112/66 (81) 100 01/20/20 19:27 64 18 30 01/20/20 19:25 58 01/20/20 17:21 70 25 30 01/20/20 16:00 97.9 67 16 97/62 (74) 100 01/20/20 16:00 Mechanical Ventilator 01/20/20 16:00 70 01/20/20 16:00 30 01/20/20 14:45 65 24 30 01/20/20 13:12 68 27 30 01/20/20 12:00 30 01/20/20 12:00 Mechanical Ventilator 01/20/20 12:00 64 01/20/20 12:00 97.7 69 20 101/48 (65) 100 Intake and Output 01/20/20 01/21/20 19:00 07:00 Intake Total 969.740 ml 988.688 ml Output Total 300 ml 350 ml Balance 669.740 ml 638.688 ml Intake Free Water 300 ml IV Total 69.740 ml 83.688 ml Tube Feeding 660 ml 605 ml Other 240 ml Output Urine Total 200 ml 275 ml Stool Total 100 ml 75 ml Laboratory Tests 01/21/20 04:45: Sodium Level 142, Potassium Level 4.3, Chloride Level 104, Carbon Dioxide Level 30, Anion Gap 8, Blood Urea Nitrogen 26H, Creatinine 0.5L, Estimat Glomerular Filtration Rate > 60, Glucose Level 104, Calcium Level 10.0 Height (Feet): 5 Height (Inches): 1.00 Weight (Pounds): 80 General Appearance: no apparent distress EENT: other - Trach with vent Cardiovascular: normal rate Respiratory/Chest: decreased breath sounds Abdomen: soft Objective No change Chivo Holloway MD Jan 21, 2020 11:55
[2020-01-21 12:00] VITALS: BP 91/56
[2020-01-21 16:00] VITALS: BP 92/60
[2020-01-21] MEDS: DOPamine 400mg/250ml 250 ML IV SCH (18:29)
[2020-01-21 20:00] VITALS: BP 89/52
--- NOTE | 2020-01-21 20:10 | General Progress Note ---
Assessment/Plan Status: stable, other - Patient is now hypotensive before over 46 she will receive 500 cc of normal saline bolus to be repeated blood pressure remained below 90 further management will be decided following the boluses treatment repeat laboratory tests will be done in a.m. GLENNY BISHOP MD Status Narrative Patient has no fever now but remained hypotensive and bradycardic while being on dopamine 5 mcg/min WBC are coming down and she does not appear to be in distress It appears dopamine 5 mcg is insufficient to maintain sufficient blood pressure and bradycardia She did not have any seizure management gabapentin 3 times daily but appeared more lethargic than previously I will discuss with cardiology to wean the patient from dopamine and put her on a different mode of treatment so she can be discharged GLENNY BISHOP MD Assessment/Plan: Glenny Harrison Subjective Constitutional: Reports: no symptoms HEENT: Reports: no symptoms Cardiovascular: Reports: no symptoms, other - And she remained hypotensive and bradycardic Respiratory: Reports: no symptoms Gastrointestinal/Abdominal: Reports: no symptoms Genitourinary: Reports: no symptoms Neurologic/Psychiatric: Reports: other - His shortness patient's been in behavior appeared to be psychotic Allergies: Coded Allergies: CARBAMAZEPINE (Verified Allergy, Unknown, 12/31/19) LORAZEPAM (Verified Allergy, Unknown, 12/31/19) Objective Last 24 Hour Vital Signs Date Time Temp Pulse Resp B/P (MAP) Pulse Ox O2 Delivery O2 Flow Rate FiO2 01/21/20 19:00 70 15 30 01/21/20 18:29 92/60 01/21/20 16:00 30 01/21/20 16:00 77 01/21/20 16:00 97.5 78 16 92/60 (71) 98 01/21/20 16:00 Mechanical Ventilator 01/21/20 15:10 77 20 30 01/21/20 13:13 75 20 30 01/21/20 12:00 Mechanical Ventilator 01/21/20 12:00 30 01/21/20 12:00 98.2 75 16 91/56 (68) 100 01/21/20 12:00 74 01/21/20 11:00 73 22 30 01/21/20 09:30 100 01/21/20 09:10 79 20 30 01/21/20 08:00 Mechanical Ventilator 01/21/20 08:00 74 01/21/20 08:00 97.9 76 19 101/63 (76) 96 01/21/20 08:00 30 01/21/20 07:00 67 24 30 01/21/20 05:19 64 19 30 01/21/20 04:00 Mechanical Ventilator 01/21/20 04:00 30 01/21/20 03:45 63 21 30 01/21/20 03:44 97.5 57 18 90/56 (67) 100 01/21/20 03:41 61 01/21/20 01:44 65 17 30 01/21/20 00:00 97.2 60 18 106/78 (87) 99 01/21/20 00:00 Mechanical Ventilator 01/21/20 00:00 30 01/21/20 00:00 53 01/20/20 23:48 61 20 30 01/20/20 21:57 55 17 30 Intake and Output 01/20/20 01/21/20 19:00 07:00 Intake Total 969.740 ml 988.688 ml Output Total 300 ml 350 ml Balance 669.740 ml 638.688 ml Intake Free Water 300 ml IV Total 69.740 ml 83.688 ml Tube Feeding 660 ml 605 ml Other 240 ml Output Urine Total 200 ml 275 ml Stool Total 100 ml 75 ml Laboratory Tests 01/21/20 04:45: Sodium Level 142, Potassium Level 4.3, Chloride Level 104, Carbon Dioxide Level 30, Anion Gap 8, Blood Urea Nitrogen 26H, Creatinine 0.5L, Estimat Glomerular Filtration Rate > 60, Glucose Level 104, Calcium Level 10.0 Height (Feet): 5 Height (Inches): 1.00 Weight (Pounds): 80 General Appearance: alert, lethargic, confused EENT: normal ENT inspection Neck: supple Cardiovascular: regular rhythm, no gallop/murmur, no JVD, bradycardia Respiratory/Chest: lungs clear, normal breath sounds, no accessory muscle use Abdomen: normal bowel sounds, non tender, soft, no organomegaly, no mass Extremities: non-tender, other - Severe diffuse muscle wasting of both [place] lower extremities Neurologic: alert, aphasia, other - In different there is a physical exam Glenny Bishop MD Jan 21, 2020 20:10
[2020-01-21] MEDS: OXcarbazepine 150mg tab ORAL SCH (21:07)
--- NOTE | 2020-01-21 22:10 | Cardiology Progress Note ---
Assessment/Plan Assessment/Plan 1. Hypotension, could be due to Keppra, increase midodrine to 5mg tid.. 2. Sinus bradycardia, resolved. 3. Anemia of chronic disease 4. Acute renal failure, resolved. 5. GI bleeding due to gastric ulceration. 6. Dysphagia, s/p PEG placement. 7. VDRF, s/p tracheostomy tube placement. Subjective Subjective Sinus rhythm at rate of 89. On the vent with FiO2 of 30%. Objective Last 24 Hour Vital Signs Date Time Temp Pulse Resp B/P (MAP) Pulse Ox O2 Delivery O2 Flow Rate FiO2 01/21/20 20:40 89 14 30 01/21/20 20:00 97.9 65 13 89/52 (64) 98 01/21/20 19:00 70 15 30 01/21/20 18:29 92/60 01/21/20 16:00 30 01/21/20 16:00 77 01/21/20 16:00 97.5 78 16 92/60 (71) 98 01/21/20 16:00 Mechanical Ventilator 01/21/20 15:10 77 20 30 01/21/20 13:13 75 20 30 01/21/20 12:00 Mechanical Ventilator 01/21/20 12:00 30 01/21/20 12:00 98.2 75 16 91/56 (68) 100 01/21/20 12:00 74 01/21/20 11:00 73 22 30 01/21/20 09:30 100 01/21/20 09:10 79 20 30 01/21/20 08:00 Mechanical Ventilator 01/21/20 08:00 74 01/21/20 08:00 97.9 76 19 101/63 (76) 96 01/21/20 08:00 30 01/21/20 07:00 67 24 30 01/21/20 05:19 64 19 30 01/21/20 04:00 Mechanical Ventilator 01/21/20 04:00 30 01/21/20 03:45 63 21 30 01/21/20 03:44 97.5 57 18 90/56 (67) 100 01/21/20 03:41 61 01/21/20 01:44 65 17 30 01/21/20 00:00 97.2 60 18 106/78 (87) 99 01/21/20 00:00 Mechanical Ventilator 01/21/20 00:00 30 01/21/20 00:00 53 01/20/20 23:48 61 20 30 01/20/20 21:57 55 17 30 Intake and Output 01/20/20 01/21/20 19:00 07:00 Intake Total 969.740 ml 988.688 ml Output Total 300 ml 350 ml Balance 669.740 ml 638.688 ml Intake Free Water 300 ml IV Total 69.740 ml 83.688 ml Tube Feeding 660 ml 605 ml Other 240 ml Output Urine Total 200 ml 275 ml Stool Total 100 ml 75 ml 2D Echo: LVEF 65%, RVSP 23 mmHg, Grade I LVDD Laboratory Tests Test 01/21/20 04:45 Sodium Level 142 MMOL/L (136-145) Potassium Level 4.3 MMOL/L (3.5-5.1) Chloride Level 104 MMOL/L (98-107) Carbon Dioxide Level 30 MMOL/L (21-32) Anion Gap 8 mmol/L (5-15) Blood Urea Nitrogen 26 mg/dL (7-18) H Creatinine 0.5 MG/DL (0.55-1.30) L Estimat Glomerular Filtration Rate > 60 mL/min (>60) Glucose Level 104 MG/DL (74-106) Calcium Level 10.0 MG/DL (8.5-10.1) Objective HEENT: PERRLA, EOMI, Trach site with moderate secretions. NECK: Cannot assess JVP, no carotid bruit with normal upstroke. LUNGS: Bilateral rhonchi. CARDIAC: Regular rhythm and rate. Normal S1, S2 with no murmurs, gallops or rubs. ABDOMEN: Soft with G-tube. No hepatomegaly. EXTREMITIES: No edema, clubbing or cyanosis. Desmond Gleason MD Jan 21, 2020 22:10
[2020-01-22] VITALS (8 sets, daily range): BP systolic 80–115; BP diastolic 44–58
[2020-01-22] MEDS: metroNIDAZOLE 500mg tab ORAL SCH ×3 (05:29→22:21)
[2020-01-22 06:19] LABS: ANION GAP 6 mmol/L (5-15); BLOOD UREA NITROGEN 29 mg/dL (7-18); CALCIUM 10.1 MG/DL (8.5-10.1); CARBON DIOXIDE 29 MMOL/L (21-32); CHLORIDE 106 MMOL/L (98-107); CREATININE 0.5 MG/DL (0.55-1.30); SODIUM 141 MMOL/L (136-145)
[2020-01-22] MEDS: levETIRAcetam 500mg/5ml Liquid GT SCH ×2 (08:14→20:43)
[2020-01-22] MEDS: Multivitamin w/Minerals tab ORAL SCH (08:15)
[2020-01-22] MEDS: Thiamine 100mg tab ORAL SCH (08:16)
[2020-01-22] MEDS: Ascorbic Acid 500mg tab ORAL SCH (08:16)
--- NOTE | 2020-01-22 08:17 | Hematology/Onc Progress Note ---
Assessment/Plan Assessment/Plan # Thrombocytopenia med related v labs error --> plt trend 167-->61-->227 --> meds have been reviewed --> no hep or lovenox (if less than 50k plt) # Anemia rule out underlying gi bleed --> Dr. Carrillo has been consulted-->endosco gastric ulceration --> trend hgb 7-->7.4-->7.9-->8.1->9.6-->8.5->9.1-->10-->11-->10.3-->10.4 --> anemia panel ordered-->reviewed --> prn transfusion --> protonix started # Leukocytosis is likely related to pna on imaging --> abx has been started --> if wbc worsens, consider abx vanc/zosyn--> ceftriaxone-->vanc->fluc/flagyl/ vanc-->flagyl/fidoxomicin --> smear is noted --> wbc 25-->15-->14-->16->7.6-->12-->20->13 --> pressors prn # Sepsis --> on abx for pna --> pressors as needed # Pneumonia --> pulm, Dr. 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 accounting consultant care, will follow Subjective HEENT: Denies: no symptoms, eye pain, blurred vision, tearing, double vision, ear pain, ear discharge, nose pain, nose congestion, throat pain, throat swelling, mouth pain, mouth swelling, other Cardiovascular: Denies: no symptoms, chest pain, edema, irregular heart rate, lightheadedness, palpitations, syncope, other Gastrointestinal/Abdominal: Denies: no symptoms, abdomen distended, abdominal pain, black stools, tarry stools, blood in stool, constipated, diarrhea, difficulty swallowing, nausea, poor appetite, poor fluid intake, rectal bleeding , vomiting, other Genitourinary: Denies: no symptoms, burning, discharge, frequency, flank pain, hematuria, incontinence, pain, urgency, other Neurologic/Psychiatric: Denies: no symptoms, anxiety, depressed, emotional problems, headache, numbness, paresthesia, pre-existing deficit, seizure, tingling, tremors, weakness, other Endocrine: Denies: no symptoms, excessive sweating, flushing, intolerance to cold, intolerance to heat, increased hunger, increased thirst, increased urine, unexplained weight gain, unexplained weight loss, other Hematologic/Lymphatic: Denies: no symptoms, anemia, easy bleeding, easy bruising, adenopathy, other Allergies: Coded Allergies: CARBAMAZEPINE (Verified Allergy, Unknown, 12/31/19) LORAZEPAM (Verified Allergy, Unknown, 12/31/19) Subjective 01/01 altered, trach, no bleedin wbc improved on abx, seen by gi 01/02 egd study noted, also with plts 61k, have vitaly Armendariz Rn, will recheck cbc 01/03 remains agitated, vitaly rn, no bleeding, cbc noted as well as id recs 01/04 on vent, with melena overnight, no bleeding, vitaly rn, labs reviewed 01/06 on vent, remains agitated, no bleeding, vitaly rn, smear is noted 01/07 on vent, restless, asymptomatic, noncooperative 01/[address] John obtained, reviewed, meds adjusted, eeg pending 01/09 labs noted, no bleeding, ativan has been discontinued, meds reviewed 01/10 trach to vent, agitated, with wrist restraints, no major changes, no bleeding 01/11 labs are reviewed, on trach to vent, no bleeding, agitated overnight, no complaints 01/13 labs noted, no bleeding, is on vent/trach, no bleeding, vitaly rn, labs are noted 01/14 labs are noted, no bleeding, remains on v/t, remains agitated, no bleeding 01/15 is c.diff positive, wbc higher at 21k, labs noted, on abx, reviewed gi, id recs 01/16 remains on vent, wbc is improved, in sr, as abx per id 01/17 recieved dopamine, tube feeds, on soft restraints, no bleeding, vitaly longoria 01/18 labs are noted, no bleeding, vitaly rn, no major changes 01/20 on dopamine gtt, with restraints, no major changes, labs noted 01/21 labs reviewed, no bleeding, dw rn, no major changes Objective Objective Current Medications Medications (Trade) Dose Ordered Sig/Villa Route PRN Reason Start Time Stop Time Status Last Admin Dose Admin Acetaminophen (Tylenol) 650 mg Q6H PRN GT Temp >100.5 01/01/20 11:00 01/31/20 10:59 01/15/20 08:18 Ascorbic Acid (Vitamin C) 500 mg DAILY ORAL 01/01/20 09:00 01/31/20 08:59 01/22/20 08:16 Dopamine HCl/ Dextrose 250 ml @ 6.974 mls/ hr Q24H IV 01/13/20 19:00 04/12/20 18:59 01/21/20 18:29 Famotidine (Pepcid) 20 mg BID ORAL 01/10/20 18:00 04/09/20 17:59 01/22/20 08:16 Fidaxomicin (Dificid) 200 mg EVERY 12 HOURS ORAL 01/16/20 21:00 01/26/20 09:01 01/22/20 08:16 Gabapentin (Neurontin) 900 mg TID GT 01/20/20 18:00 02/19/20 17:59 01/22/20 08:15 Haloperidol Lactate (Haldol) 5 mg Q6H PRN IM Agitation 01/01/20 23:30 02/15/20 23:29 01/17/20 12:04 Levetiracetam (Keppra) 1,500 mg Q12HR GT 01/07/20 21:00 02/07/20 08:59 01/22/20 08:14 Levothyroxine Sodium (Synthroid) 75 mcg DAILY ORAL 01/01/20 09:00 01/31/20 08:59 01/22/20 08:16 Metronidazole (Flagyl) 500 mg Q8HR ORAL 01/16/20 14:00 01/23/20 13:59 01/22/20 05:29 Midodrine (Pro-Amatine) 5 mg TID ORAL 01/22/20 09:00 04/21/20 08:59 01/22/20 08:15 Multivitamins Therapeutic (Therapeutic Multivitamin) 1 ea DAILY ORAL 01/01/20 09:00 01/31/20 08:59 01/22/20 08:15 Ondansetron HCl (Zofran) 4 mg Q6H PRN ORAL Nausea & Vomiting 12/31/19 21:00 01/30/20 20:59 Oxcarbazepine (TrileptaL) 300 mg BEDTIME ORAL 01/10/20 21:00 02/07/20 20:59 01/21/20 21:07 Potassium Chloride (K-Dur) 20 meq TWICE A DAY GT 01/11/20 09:00 04/10/20 08:59 01/22/20 08:16 Thiamine HCl (Vitamin B1) 100 mg DAILY ORAL 01/01/20 09:00 01/31/20 08:59 01/22/20 08:16 Last 24 Hour Vital Signs Date Time Temp Pulse Resp B/P (MAP) Pulse Ox O2 Delivery O2 Flow Rate FiO2 01/22/20 05:42 66 106/54 (71) 01/22/20 05:20 60 14 30 01/22/20 04:00 30 01/22/20 04:00 97.5 62 21 115/54 (74) 100 01/22/20 04:00 Mechanical Ventilator 01/22/20 03:39 70 01/22/20 03:15 69 16 30 01/22/20 01:05 56 12 30 01/22/20 00:00 Mechanical Ventilator 01/22/20 00:00 30 01/22/20 00:00 97.5 60 15 104/58 (73) 100 01/22/20 00:00 62 01/21/20 23:15 59 16 30 01/21/20 20:40 89 14 30 01/21/20 20:00 97.9 65 13 89/52 (64) 98 01/21/20 20:00 30 01/21/20 20:00 Mechanical Ventilator 01/21/20 19:05 68 01/21/20 19:00 70 15 30 01/21/20 18:29 92/60 01/21/20 16:00 30 01/21/20 16:00 77 01/21/20 16:00 97.5 78 16 92/60 (71) 98 01/21/20 16:00 Mechanical Ventilator 01/21/20 15:10 77 20 30 01/21/20 13:13 75 20 30 01/21/20 12:00 Mechanical Ventilator 01/21/20 12:00 30 01/21/20 12:00 98.2 75 16 91/56 (68) 100 01/21/20 12:00 74 01/21/20 11:00 73 22 30 01/21/20 09:30 100 01/21/20 09:10 79 20 30 01/21/20 08:00 Mechanical Ventilator 01/21/20 08:00 74 01/21/20 08:00 97.9 76 19 101/63 (76) 96 01/21/20 08:00 30 01/21/20 07:00 67 24 30 01/21/20 05:19 64 19 30 01/21/20 04:00 Mechanical Ventilator 01/21/20 04:00 30 01/21/20 03:45 63 21 30 01/21/20 03:44 97.5 57 18 90/56 (67) 100 01/21/20 03:41 61 01/21/20 01:44 65 17 30 01/21/20 00:00 97.2 60 18 106/78 (87) 99 01/21/20 00:00 Mechanical Ventilator 01/21/20 00:00 30 01/21/20 00:00 53 01/20/20 23:48 61 20 30 01/20/20 21:57 55 17 30 01/20/20 20:00 Mechanical Ventilator 01/20/20 20:00 30 01/20/20 20:00 97.3 61 18 112/66 (81) 100 01/20/20 19:27 64 18 30 01/20/20 19:25 58 01/20/20 17:21 70 25 30 01/20/20 16:00 97.9 67 16 97/62 (74) 100 01/20/20 16:00 Mechanical Ventilator 01/20/20 16:00 70 01/20/20 16:00 30 01/20/20 14:45 65 24 30 01/20/20 13:12 68 27 30 01/20/20 12:00 30 01/20/20 12:00 Mechanical Ventilator 01/20/20 12:00 64 01/20/20 12:00 97.7 69 20 101/48 (65) 100 01/20/20 11:06 98 32 30 01/20/20 09:00 98 01/20/20 09:00 99 34 30 01/20/20 08:58 108/56 Intake and Output 01/21/20 01/22/20 19:00 07:00 Intake Total 801.974 ml 1036.714 ml Output Total 250 ml 550 ml Balance 551.974 ml 486.714 ml Intake Free Water 300 ml 300 ml IV Total 6.974 ml 76.714 ml Tube Feeding 495 ml 660 ml Output Urine Total 250 ml 450 ml Stool Total 100 ml Labs Test 01/20/20 03:30 01/21/20 04:45 01/22/20 03:40 White Blood Count 11.0 K/UL (4.8-10.8) Red Blood Count 3.82 M/UL (4.20-5.40) Hemoglobin 11.4 G/DL (12.0-16.0) Hematocrit 35.8 % (37.0-47.0) Mean Corpuscular Volume 94 FL (80-99) Mean Corpuscular Hemoglobin 29.9 PG (27.0-31.0) Mean Corpuscular Hemoglobin Concent 31.9 G/DL (32.0-36.0) Red Cell Distribution Width 14.9 % (11.6-14.8) Platelet Count 375 K/UL (150-450) Mean Platelet Volume 6.1 FL (6.5-10.1) Neutrophils (%) (Auto) 61.0 % (45.0-75.0) Lymphocytes (%) (Auto) 19.5 % (20.0-45.0) Monocytes (%) (Auto) 8.0 % (1.0-10.0) Eosinophils (%) (Auto) 10.3 % (0.0-3.0) Basophils (%) (Auto) 1.2 % (0.0-2.0) Sodium Level 138 MMOL/L (136-145) 142 MMOL/L (136-145) 141 MMOL/L (136-145) Potassium Level 4.4 MMOL/L (3.5-5.1) 4.3 MMOL/L (3.5-5.1) 4.0 MMOL/L (3.5-5.1) Chloride Level 103 MMOL/L (98-107) 104 MMOL/L (98-107) 106 MMOL/L (98-107) Carbon Dioxide Level 26 MMOL/L (21-32) 30 MMOL/L (21-32) 29 MMOL/L (21-32) Anion Gap 9 mmol/L (5-15) 8 mmol/L (5-15) 6 mmol/L (5-15) Blood Urea Nitrogen 30 mg/dL (7-18) 26 mg/dL (7-18) 29 mg/dL (7-18) Creatinine 0.4 MG/DL (0.55-1.30) 0.5 MG/DL (0.55-1.30) 0.5 MG/DL (0.55-1.30) Estimat Glomerular Filtration Rate > 60 mL/min (>60) > 60 mL/min (>60) > 60 mL/min (>60) Glucose Level 102 MG/DL (74-106) 104 MG/DL (74-106) 83 MG/DL (74-106) Uric Acid 4.7 MG/DL (2.6-7.2) Calcium Level 9.9 MG/DL (8.5-10.1) 10.0 MG/DL (8.5-10.1) 10.1 MG/DL (8.5-10.1) Phosphorus Level 3.4 MG/DL (2.5-4.9) Magnesium Level 1.9 MG/DL (1.8-2.4) Total Bilirubin 0.3 MG/DL (0.2-1.0) Aspartate Amino Transf (AST/SGOT) 29 U/L (15-37) Alanine Aminotransferase (ALT/SGPT) 28 U/L (12-78) Alkaline Phosphatase 123 U/L (46-116) Total Protein 8.1 G/DL (6.4-8.2) Albumin 3.1 G/DL (3.4-5.0) Globulin 5.0 g/dL Albumin/Globulin Ratio 0.6 (1.0-2.7) Height (Feet): 5 Height (Inches): 1.00 Weight (Pounds): 80 Objective Vital Signs General Appearance: ++ cachectic, chronically ill HEENT: normocephalic, atraumatic ++ trach Resp: other -. vent ++ Cardiovascular: regular rate, rhythm, no edema Gastrointestinal: gtube in place, without erythema Rectal: other - Hemoccult positive [place]: back normal, gait/station normal, non-tender Lymphatic: no adenopathy Baltazar Cortes MD Jan 22, 2020 08:17
--- NOTE | 2020-01-22 08:39 | Pulmonology Progress Note ---
Ivanna Mora COMMUNICATIONS ADMINISTRATOR 01/22/20 0839: Subjective ROS Limited/Unobtainable: Yes Allergies: Coded Allergies: CARBAMAZEPINE (Verified Allergy, Unknown, 12/31/19) LORAZEPAM (Verified Allergy, Unknown, 12/31/19) All Systems: reviewed and negative except above Subjective leukocytosis trending down, no labs this am no fevers still intermittent tachypnea BP better still on Dopamine gtt and Midodrine ABG stable on current settings CXR 01/13 no acute findings Objective Last 24 Hour Vital Signs Date Time Temp Pulse Resp B/P (MAP) Pulse Ox O2 Delivery O2 Flow Rate FiO2 01/22/20 05:42 66 106/54 (71) 01/22/20 05:20 60 14 30 01/22/20 04:00 30 01/22/20 04:00 97.5 62 21 115/54 (74) 100 01/22/20 04:00 Mechanical Ventilator 01/22/20 03:39 70 01/22/20 03:15 69 16 30 01/22/20 01:05 56 12 30 01/22/20 00:00 Mechanical Ventilator 01/22/20 00:00 30 01/22/20 00:00 97.5 60 15 104/58 (73) 100 01/22/20 00:00 62 01/21/20 23:15 59 16 30 01/21/20 20:40 89 14 30 01/21/20 20:00 97.9 65 13 89/52 (64) 98 01/21/20 20:00 30 01/21/20 20:00 Mechanical Ventilator 01/21/20 19:05 68 01/21/20 19:00 70 15 30 01/21/20 18:29 92/60 01/21/20 16:00 30 01/21/20 16:00 77 01/21/20 16:00 97.5 78 16 92/60 (71) 98 01/21/20 16:00 Mechanical Ventilator 01/21/20 15:10 77 20 30 01/21/20 13:13 75 20 30 01/21/20 12:00 Mechanical Ventilator 01/21/20 12:00 30 01/21/20 12:00 98.2 75 16 91/56 (68) 100 01/21/20 12:00 74 01/21/20 11:00 73 22 30 01/21/20 09:30 100 01/21/20 09:10 79 20 30 Intake and Output 01/21/20 01/22/20 19:00 07:00 Intake Total 801.974 ml 1036.714 ml Output Total 250 ml 550 ml Balance 551.974 ml 486.714 ml Intake Free Water 300 ml 300 ml IV Total 6.974 ml 76.714 ml Tube Feeding 495 ml 660 ml Output Urine Total 250 ml 450 ml Stool Total 100 ml Objective General Appearance: bedridden, pale, chronically ill looking, older than her biological age ; vent dependent female ; on vent SIMV 450-30%-12, PEEP 5 Lines, tubes and drains: peripheral, trach HEENT: normocephalic, atraumatic Neck: trach - Portex #7, secretions small amount, yellow color, thin consistency Respiratory/Chest: CTAB Cardiovascular/Chest: regular rate, regular rhythm Abdomen: non tender, soft, G tube Genitourinary/Rectal: [place] Extremities: no edema, muscle atrophy Neurologic: abnormal gait, poorly responsive, more awake , eyes open Musculoskeletal: atrophy BLE Skin: multiple tattoos Laboratory Tests 01/22/20 03:40: Sodium Level 141, Potassium Level 4.0, Chloride Level 106, Carbon Dioxide Level 29, Anion Gap 6, Blood Urea Nitrogen 29H, Creatinine 0.5L, Estimat Glomerular Filtration Rate > 60, Glucose Level 83, Calcium Level 10.1 Current Medications Medications (Trade) Dose Ordered Sig/Villa Route PRN Reason Start Time Stop Time Status Last Admin Dose Admin Acetaminophen (Tylenol) 650 mg Q6H PRN GT Temp >100.5 01/01/20 11:00 01/31/20 10:59 01/15/20 08:18 Ascorbic Acid (Vitamin C) 500 mg DAILY ORAL 01/01/20 09:00 01/31/20 08:59 01/22/20 08:16 Dopamine HCl/ Dextrose 250 ml @ 6.974 mls/ hr Q24H IV 01/13/20 19:00 04/12/20 18:59 01/21/20 18:29 Famotidine (Pepcid) 20 mg BID ORAL 01/10/20 18:00 04/09/20 17:59 01/22/20 08:16 Fidaxomicin (Dificid) 200 mg EVERY 12 HOURS ORAL 01/16/20 21:00 01/26/20 09:01 01/22/20 08:16 Gabapentin (Neurontin) 900 mg TID GT 01/20/20 18:00 02/19/20 17:59 01/22/20 08:15 Haloperidol Lactate (Haldol) 5 mg Q6H PRN IM Agitation 01/01/20 23:30 02/15/20 23:29 01/17/20 12:04 Levetiracetam (Keppra) 1,500 mg Q12HR GT 01/07/20 21:00 02/07/20 08:59 01/22/20 08:14 Levothyroxine Sodium (Synthroid) 75 mcg DAILY ORAL 01/01/20 09:00 01/31/20 08:59 01/22/20 08:16 Metronidazole (Flagyl) 500 mg Q8HR ORAL 01/16/20 14:00 01/23/20 13:59 01/22/20 05:29 Midodrine (Pro-Amatine) 5 mg TID ORAL 01/22/20 09:00 04/21/20 08:59 01/22/20 08:15 Multivitamins Therapeutic (Therapeutic Multivitamin) 1 ea DAILY ORAL 01/01/20 09:00 01/31/20 08:59 01/22/20 08:15 Ondansetron HCl (Zofran) 4 mg Q6H PRN ORAL Nausea & Vomiting 12/31/19 21:00 01/30/20 20:59 Oxcarbazepine (TrileptaL) 300 mg BEDTIME ORAL 01/10/20 21:00 02/07/20 20:59 01/21/20 21:07 Potassium Chloride (K-Dur) 20 meq TWICE A DAY GT 01/11/20 09:00 04/10/20 08:59 01/22/20 08:16 Thiamine HCl (Vitamin B1) 100 mg DAILY ORAL 01/01/20 09:00 01/31/20 08:59 01/22/20 08:16 Assessment/Plan Assessment/Plan ASSESSMENT VDRF/trach status Sepsis Possible pneumonia UTI recurrent GI bleeding C dif colitis Anemia secondary to GI bleeding Aspiration risk Dysphagia, feeding by G-tube Encephalopathy Acute kidney injury likely secondary to dehydration Bradycardia Hypotension Electrolyte imbalance Severe protein calorie malnutrition Hx of hypertension History of CVA Seizure disorder with witnessed seizure episode 01/07 Psychiatric disorder Presumed scabies, s/p Rx Thrombocytopenia-transient- resolved PLAN OF CARE JULIANA vent support, pulm toilet ABG stable on current settings, on SIMV mode 450-30-12 PEEP5 , no signs of resp distress on these settings keep settings as is and titrate as needed now tachypneic intermittently ABG repeated 01/14 due to tachypnea- remains stable CXR 01/13 stable pulm toilet via HHN Theophylline level was high -25; ->was dc prior leuk now trending down , no fevers, possibly due to C dif pancx-per ID CXR 01/13- no acute findings KUB 01/13- no acute findings UA + yeast , 01/12 UCX +yeast, started on Fluconazole 01/14 as per ID - completed BCX 01/12 NGTD abx as per ID recs Vanco po was prior dc and switched to Dificid , also on Flagyl per GI inflammatory markers : ESR-42, CRP- wnl prior BCX 05/18 +CONS likely contaminant, off Vanco ; repeated BCX 01/01 and 01/02 NGTD SCX + Proteus , was on Ceftriaxone as per ID recs for poss SBP in setting of GI bleeding - completed BCX 01/01 and 01/02 NGTD stool C dif 01/07 +, on oral vanco rapid COVID 19 NGT in ED aspiration precautions Venous Duplex BLE -negative, get SCD ( unable to give a/c given anemia) closely monitor hemodynamic status Protonix IV GT feeding stool OB positive transfuse to keep Hgb > 7. heme and GI follows s/p EGD 01/01 -> gastric ulcer across G tube site , no active bleeding HH at baseline monitor for any further episodes of Gi bleeding trend LFT-> trended down, hep panel NGT hx of cirrhosis- per GI management hypotension-> Midodrine, s/p IV fluids, on Dopamine gtt bradycardia -> Midodrine dose decreased and prior Theophylline was started by primary but dc due to increased level cardio follows HR better monitor renal parameters, lytes, avoid nephrotoxic BUN trending down, creat stable, likely prerenal due to dehydration replace e/lytes as per nephro recs monitor volumes seizure precautions, antiepileptic optimized as per neuro recs ammonia 49, fup with further neuro recs EEG - grossly abnormal; mild to mod encephalopathy, single ictal episode CT head no acute IC pathology BP management with current regimen SNF meds supportive care dietary recs s/p 12/31 Rx for presumed scabies with permethrin and Ivermectin, repeated Ivermectin 01/08 case discussed and evaluated by supervising physician Raul Esparza MD 01/22/20 1906: Subjective Allergies: Coded Allergies: CARBAMAZEPINE (Verified Allergy, Unknown, 12/31/19) LORAZEPAM (Verified Allergy, Unknown, 12/31/19) Assessment/Plan Assessment/Plan Patient seen and examined with COMMUNICATIONS ADMINISTRATOR. Agree with above A&P as it reflects our joint deliberations. Ivanna Mora NP Jan 22, 2020 08:39 Raul Esparza MD Jan 22, 2020 19:06
--- NOTE | 2020-01-22 10:12 | General Progress Note ---
Assessment/Plan Problem List: (1) G tube feedings ICD Codes: Z93.1 - Gastrostomy status SNOMED: 486287578, 518741037, 237683525 (2) GI bleed ICD Codes: K92.2 - Gastrointestinal hemorrhage, unspecified SNOMED: 84956816 (3) Sepsis ICD Codes: A41.9 - Sepsis, unspecified organism SNOMED: 86981699 (4) Pneumonia ICD Codes: J18.9 - Pneumonia, unspecified organism SNOMED: 206898641 Status: stable, other - Patient is now hypotensive before over 46 she will receive 500 cc of normal saline bolus to be repeated blood pressure remained below 90 further management will be decided following the boluses treatment repeat laboratory tests will be done in a.m. GEM MCKAY MD Assessment/Plan: s/p EGD gastric ulcer no recurrent bleed G TF monitor H&H C. Diff positive off ppi po vanco pepcid will fu Subjective ROS Limited/Unobtainable: No Allergies: Coded Allergies: CARBAMAZEPINE (Verified Allergy, Unknown, 12/31/19) LORAZEPAM (Verified Allergy, Unknown, 12/31/19) Objective Last 24 Hour Vital Signs Date Time Temp Pulse Resp B/P (MAP) Pulse Ox O2 Delivery O2 Flow Rate FiO2 01/22/20 08:00 Mechanical Ventilator 01/22/20 08:00 98.1 62 15 112/50 (70) 100 01/22/20 08:00 57 01/22/20 08:00 30 01/22/20 07:10 57 16 30 01/22/20 05:42 66 106/54 (71) 01/22/20 05:20 60 14 30 01/22/20 04:00 30 01/22/20 04:00 97.5 62 21 115/54 (74) 100 01/22/20 04:00 Mechanical Ventilator 01/22/20 03:39 70 01/22/20 03:15 69 16 30 01/22/20 01:05 56 12 30 01/22/20 00:00 Mechanical Ventilator 01/22/20 00:00 30 01/22/20 00:00 97.5 60 15 104/58 (73) 100 01/22/20 00:00 62 01/21/20 23:15 59 16 30 01/21/20 20:40 89 14 30 9/6/20 20:00 97.9 65 13 89/52 (64) 98 01/21/20 20:00 30 01/21/20 20:00 Mechanical Ventilator 01/21/20 19:05 68 01/21/20 19:00 70 15 30 01/21/20 18:29 92/60 01/21/20 16:00 30 01/21/20 16:00 77 01/21/20 16:00 97.5 78 16 92/60 (71) 98 01/21/20 16:00 Mechanical Ventilator 01/21/20 15:10 77 20 30 01/21/20 13:13 75 20 30 01/21/20 12:00 Mechanical Ventilator 01/21/20 12:00 30 01/21/20 12:00 98.2 75 16 91/56 (68) 100 01/21/20 12:00 74 01/21/20 11:00 73 22 30 Intake and Output 01/21/20 01/22/20 19:00 07:00 Intake Total 801.974 ml 1036.714 ml Output Total 250 ml 550 ml Balance 551.974 ml 486.714 ml Intake Free Water 300 ml 300 ml IV Total 6.974 ml 76.714 ml Tube Feeding 495 ml 660 ml Output Urine Total 250 ml 450 ml Stool Total 100 ml Laboratory Tests 01/22/20 03:40: Sodium Level 141, Potassium Level 4.0, Chloride Level 106, Carbon Dioxide Level 29, Anion Gap 6, Blood Urea Nitrogen 29H, Creatinine 0.5L, Estimat Glomerular Filtration Rate > 60, Glucose Level 83, Calcium Level 10.1 Height (Feet): 5 Height (Inches): 1.00 Weight (Pounds): 80 General Appearance: no apparent distress EENT: normal ENT inspection Neck: supple Cardiovascular: tachycardia Respiratory/Chest: decreased breath sounds Extremities: non-tender Satish Carrillo MD Jan 22, 2020 10:12
--- NOTE | 2020-01-22 10:19 | Infectious Diseases Prog Note ---
Assessment/Plan 39yo F with: Sepsis Fever to 101.5>>Low grade ; SP Possible pna on CXR Leukocytosis; recurrent; increased- now improvign -01/13 CXR: no acute disease -01/12 u/a wbc tnct, nit neg, latrell +3; ucx >100k C. tropicalis Bcx NTD Cdiff colitis -Cdif toxin + -01/13 KUB: no acute findings Recurrent GIB 01/06 u/aneg 12/30 BCx 1/2 +CONS, likely contaminant 12/30 UA neg, COVID rapid Ag neg 12/30 CXR 1. Density overlying the bilateral lung apices. May represent pleural thickening, multifocal airspace opacities, versus summation artifact. 01/01 BCx Neg 01/02 BCx Neg Seizure episode -01/10 CT head: Third and lateral ventriculomegaly. Associated enlargement of the extra axial CSF spaces indicates that this is probably due to central volume loss, but the possibility of hydrocephalus should also be considered. At the degree of volume loss is considerably out of proportion to patient's age. Periventricular deep white matter low-attenuation. Probably on the basis of microvascular ischemic change but given patient's age the possibility of demyelinating disease should be considered as well. Negative for acute intracranial bleed or mass effect Possible Scabies SP tx w/ Permethrin and Ivermectin 12/31 R/o DVT: None on US 12/30 MRSA nares neg Recurrent GIBs, FOBT+ Hepatic encephalopathy, chronic S/p Trach/PEG Resides at SNF Plan: PO Dificid #7/10 as failing PO Vancomycin Noted Flagyl 7 per GI 01/19/20 SP fluconazole #5 01/15 SP PO Vancomycin #8 01/08 SP Ceftriaxone #7 01/02 SP vanco #2, Zosyn #2 SP 2nd dose of ivermectin (01/08) Monitor CBC/CMP Monitor resp status Monitor temp and hemodynamics contact isolation f/u repeat cultures CBC, CMP am D/w RN and pharmacy staff Thank you for this consult. [facility] will continue to follow. Subjective Allergies: Coded Allergies: CARBAMAZEPINE (Verified Allergy, Unknown, 12/31/19) LORAZEPAM (Verified Allergy, Unknown, 12/31/19) Afebrile Leukocytosis steadily decreasing Objective Last 24 Hour Vital Signs Date Time Temp Pulse Resp B/P (MAP) Pulse Ox O2 Delivery O2 Flow Rate FiO2 01/22/20 08:00 Mechanical Ventilator 01/22/20 08:00 98.1 62 15 112/50 (70) 100 01/22/20 08:00 57 01/22/20 08:00 30 01/22/20 07:10 57 16 30 01/22/20 05:42 66 106/54 (71) 01/22/20 05:20 60 14 30 01/22/20 04:00 30 01/22/20 04:00 97.5 62 21 115/54 (74) 100 01/22/20 04:00 Mechanical Ventilator 01/22/20 03:39 70 01/22/20 03:15 69 16 30 01/22/20 01:05 56 12 30 01/22/20 00:00 Mechanical Ventilator 01/22/20 00:00 30 01/22/20 00:00 97.5 60 15 104/58 (73) 100 01/22/20 00:00 62 01/21/20 23:15 59 16 30 01/21/20 20:40 89 14 30 01/21/20 20:00 97.9 65 13 89/52 (64) 98 01/21/20 20:00 30 01/21/20 20:00 Mechanical Ventilator 01/21/20 19:05 68 01/21/20 19:00 70 15 30 01/21/20 18:29 92/60 01/21/20 16:00 30 01/21/20 16:00 77 01/21/20 16:00 97.5 78 16 92/60 (71) 98 01/21/20 16:00 Mechanical Ventilator 01/21/20 15:10 77 20 30 01/21/20 13:13 75 20 30 01/21/20 12:00 Mechanical Ventilator 01/21/20 12:00 30 01/21/20 12:00 98.2 75 16 91/56 (68) 100 01/21/20 12:00 74 01/21/20 11:00 73 22 30 Height (Feet): 5 Height (Inches): 1.00 Weight (Pounds): 80 GEN: NADon Vent HEENT: NCAT, MMM, EOMI Pulm: Equal chest rise and fall B/L, NO accessory muscle use ABD: Soft, ND Laboratory Tests Test 01/22/20 03:40 Sodium Level 141 MMOL/L (136-145) Potassium Level 4.0 MMOL/L (3.5-5.1) Chloride Level 106 MMOL/L (98-107) Carbon Dioxide Level 29 MMOL/L (21-32) Anion Gap 6 mmol/L (5-15) Blood Urea Nitrogen 29 mg/dL (7-18) H Creatinine 0.5 MG/DL (0.55-1.30) L Estimat Glomerular Filtration Rate > 60 mL/min (>60) Glucose Level 83 MG/DL (74-106) Calcium Level 10.1 MG/DL (8.5-10.1) Current Medications Medications (Trade) Dose Ordered Sig/Villa Route PRN Reason Start Time Stop Time Status Last Admin Dose Admin Acetaminophen (Tylenol) 650 mg Q6H PRN GT Temp >100.5 01/01/20 11:00 01/31/20 10:59 01/15/20 08:18 Ascorbic Acid (Vitamin C) 500 mg DAILY ORAL 01/01/20 09:00 01/31/20 08:59 01/22/20 08:16 Dopamine HCl/ Dextrose 250 ml @ 6.974 mls/ hr Q24H IV 01/13/20 19:00 04/12/20 18:59 01/21/20 18:29 Famotidine (Pepcid) 20 mg BID ORAL 01/10/20 18:00 04/09/20 17:59 01/22/20 08:16 Fidaxomicin (Dificid) 200 mg EVERY 12 HOURS ORAL 01/16/20 21:00 01/26/20 09:01 01/22/20 08:16 Gabapentin (Neurontin) 900 mg TID GT 01/20/20 18:00 02/19/20 17:59 01/22/20 08:15 Haloperidol Lactate (Haldol) 5 mg Q6H PRN IM Agitation 01/01/20 23:30 02/15/20 23:29 01/17/20 12:04 Levetiracetam (Keppra) 1,500 mg Q12HR GT 01/07/20 21:00 02/07/20 08:59 01/22/20 08:14 Levothyroxine Sodium (Synthroid) 75 mcg DAILY ORAL 01/01/20 09:00 01/31/20 08:59 01/22/20 08:16 Metronidazole (Flagyl) 500 mg Q8HR ORAL 01/16/20 14:00 01/23/20 13:59 01/22/20 05:29 Midodrine (Pro-Amatine) 5 mg TID ORAL 01/22/20 09:00 04/21/20 08:59 01/22/20 08:15 Multivitamins Therapeutic (Therapeutic Multivitamin) 1 ea DAILY ORAL 01/01/20 09:00 01/31/20 08:59 01/22/20 08:15 Ondansetron HCl (Zofran) 4 mg Q6H PRN ORAL Nausea & Vomiting 12/31/19 21:00 01/30/20 20:59 Oxcarbazepine (TrileptaL) 300 mg BEDTIME ORAL 01/10/20 21:00 02/07/20 20:59 01/21/20 21:07 Potassium Chloride (K-Dur) 20 meq TWICE A DAY GT 01/11/20 09:00 04/10/20 08:59 01/22/20 08:16 Thiamine HCl (Vitamin B1) 100 mg DAILY ORAL 01/01/20 09:00 01/31/20 08:59 01/22/20 08:16 Jesus Hanson MD Jan 22, 2020 10:19
--- NOTE | 2020-01-22 11:06 | Nephrology Progress Note ---
Assessment/Plan Problem List: (1) RICHARD (acute kidney injury) (2) Dehydration (3) Anemia (4) GI bleed (5) Malnutrition (6) Seizure disorder (7) Electrolyte imbalance Assessment Renal failure, in the form of prerenal azotemia, most likely secondary to GI bleed GI bleed, leading to severe anemia Sepsis, pneumonia Chronic tracheostomy, ventilator dependent History of CVA History of seizure disorder History of psychiatric disorder Severe malnutrition Electrolyte abnormalities Plan January 21: Today's labs are reviewed. Stable renal parameters. Continue per consultants. January 20: Labs reviewed. Renal parameters stable. January 19: Labs reviewed. Stable from renal standpoint. January 18: No labs done today. Continue per consultants. Medications reviewed. January 17: Late note entry due to system problem at the [facility].Chemistry panel reviewed. Stable from renal standpoint of view. Continue per current management. January 16: No can panel today. Check lab tomorrow. Remains stable from renal standpoint of view. January 15: Lab reviewed. Renal parameters stable. January 14: Lab reviewed. Renal parameters stable. January 13: Labs reviewed. Stable from renal standpoint of view. January 12: Labs reviewed. Stable from renal standpoint of view January 11: No labs drawn today stable from renal standpoint of view January 10: Labs reviewed. Potassium supplement given. Continue per consultants. January 09: Lab reviewed. Potassium supplement given. IV fluid discontinued. January 08: Lab reviewed. Renal parameters stable. Continue per consultants. January 07: Lab reviewed. Renal parameters stable. Continue per consultants. January 06: Lab reviewed. Stable from renal standpoint of view. January 05: Labs reviewed. Stable from renal standpoint of view. Continue per consultants. January 04: No labs drawn today. Will check labs tomorrow. Continue per consultants. January 03: Lab reviewed. Renal parameters stable. IV fluid discontinued. High LFTs declining. Continue same. January 02: Lab reviewed. Renal parameters stable. Continue per PMD and consultants. LFTs remain elevated. Continue to monitor. Continue slow hydration Discontinue blood pressure medications as her blood pressure is low Discontinue diuretics Monitor renal parameters Transfusion as needed GI evaluation Correct electrolyte abnormalities Check B12 level, folate, and thyroid function tests: Results noted Subjective ROS Limited/Unobtainable: Yes Objective Objective Last 24 Hour Vital Signs Date Time Temp Pulse Resp B/P (MAP) Pulse Ox O2 Delivery O2 Flow Rate FiO2 01/22/20 08:00 Mechanical Ventilator 01/22/20 08:00 98.1 62 15 112/50 (70) 100 01/22/20 08:00 57 01/22/20 08:00 121/65 01/22/20 08:00 30 01/22/20 07:10 57 16 30 01/22/20 05:42 66 106/54 (71) 01/22/20 05:20 60 14 30 01/22/20 04:00 30 01/22/20 04:00 97.5 62 21 115/54 (74) 100 01/22/20 04:00 Mechanical Ventilator 01/22/20 03:39 70 01/22/20 03:15 69 16 30 01/22/20 01:05 56 12 30 01/22/20 00:00 Mechanical Ventilator 01/22/20 00:00 30 01/22/20 00:00 97.5 60 15 104/58 (73) 100 01/22/20 00:00 62 01/21/20 23:15 59 16 30 01/21/20 20:40 89 14 30 01/21/20 20:00 97.9 65 13 89/52 (64) 98 01/21/20 20:00 30 01/21/20 20:00 Mechanical Ventilator 01/21/20 19:05 68 01/21/20 19:00 70 15 30 01/21/20 18:29 92/60 01/21/20 16:00 30 01/21/20 16:00 77 01/21/20 16:00 97.5 78 16 92/60 (71) 98 01/21/20 16:00 Mechanical Ventilator 01/21/20 15:10 77 20 30 01/21/20 13:13 75 20 30 01/21/20 12:00 Mechanical Ventilator 01/21/20 12:00 30 01/21/20 12:00 98.2 75 16 91/56 (68) 100 01/21/20 12:00 74 Intake and Output 01/21/20 01/22/20 19:00 07:00 Intake Total 801.974 ml 1043.688 ml Output Total 250 ml 550 ml Balance 551.974 ml 493.688 ml Intake Free Water 300 ml 300 ml IV Total 6.974 ml 83.688 ml Tube Feeding 495 ml 660 ml Output Urine Total 250 ml 450 ml Stool Total 100 ml Laboratory Tests 01/22/20 03:40: Sodium Level 141, Potassium Level 4.0, Chloride Level 106, Carbon Dioxide Level 29, Anion Gap 6, Blood Urea Nitrogen 29H, Creatinine 0.5L, Estimat Glomerular Filtration Rate > 60, Glucose Level 83, Calcium Level 10.1 Height (Feet): 5 Height (Inches): 1.00 Weight (Pounds): 80 General Appearance: no apparent distress EENT: other - On vent Cardiovascular: normal rate Respiratory/Chest: decreased breath sounds Abdomen: soft, distended Objective No change Chivo Holloway MD Jan 22, 2020 11:06
--- NOTE | 2020-01-22 12:22 | Surgery Progress Note ---
Surgery Progress Note Subjective Symptoms: improved, tolerating diet, passing flatus, BM Objective Last 24 Hour Vital Signs Date Time Temp Pulse Resp B/P (MAP) Pulse Ox O2 Delivery O2 Flow Rate FiO2 01/22/20 12:00 98.9 52 19 90/44 (59) 100 01/22/20 08:00 Mechanical Ventilator 01/22/20 08:00 98.1 62 15 112/50 (70) 100 01/22/20 08:00 57 01/22/20 08:00 121/65 01/22/20 08:00 30 01/22/20 07:10 57 16 30 01/22/20 05:42 66 106/54 (71) 01/22/20 05:20 60 14 30 01/22/20 04:00 30 01/22/20 04:00 97.5 62 21 115/54 (74) 100 01/22/20 04:00 Mechanical Ventilator 01/22/20 03:39 70 01/22/20 03:15 69 16 30 01/22/20 01:05 56 12 30 01/22/20 00:00 Mechanical Ventilator 01/22/20 00:00 30 01/22/20 00:00 97.5 60 15 104/58 (73) 100 01/22/20 00:00 62 01/21/20 23:15 59 16 30 01/21/20 20:40 89 14 30 01/21/20 20:00 97.9 65 13 89/52 (64) 98 01/21/20 20:00 30 01/21/20 20:00 Mechanical Ventilator 01/21/20 19:05 68 01/21/20 19:00 70 15 30 01/21/20 18:29 92/60 01/21/20 16:00 30 01/21/20 16:00 77 01/21/20 16:00 97.5 78 16 92/60 (71) 98 01/21/20 16:00 Mechanical Ventilator 01/21/20 15:10 77 20 30 01/21/20 13:13 75 20 30 I&O Intake and Output 01/21/20 01/22/20 19:00 07:00 Intake Total 801.974 ml 1043.688 ml Output Total 250 ml 550 ml Balance 551.974 ml 493.688 ml Intake Free Water 300 ml 300 ml IV Total 6.974 ml 83.688 ml Tube Feeding 495 ml 660 ml Output Urine Total 250 ml 450 ml Stool Total 100 ml Dressing: other Wound: other Cardiovascular: RSR Respiratory: decreased breath sounds Abdomen: soft, non-tender, present bowel sounds Extremities: no tenderness, no cyanosis Laboratory Tests Test 01/22/20 03:40 Sodium Level 141 MMOL/L (136-145) Potassium Level 4.0 MMOL/L (3.5-5.1) Chloride Level 106 MMOL/L (98-107) Carbon Dioxide Level 29 MMOL/L (21-32) Anion Gap 6 mmol/L (5-15) Blood Urea Nitrogen 29 mg/dL (7-18) H Creatinine 0.5 MG/DL (0.55-1.30) L Estimat Glomerular Filtration Rate > 60 mL/min (>60) Glucose Level 83 MG/DL (74-106) Calcium Level 10.1 MG/DL (8.5-10.1) Plan Problems: (1) Pneumonia (2) Sepsis Assessment & Plan: leukocytosis anemia lactic acidosis agree with GI recommend EGD planned for 12/31 hold feeding for now trend h/h monitor for bleeding no acute hemorrhage will be available in event needs exploration for hemostasis prbc as per heme thank you will follow with recs cont abx worsening wbc wbc trending down comfortable appearing today no n/v Pt presented on admission in emaciated state. Pt has tracheostomy and GT. NO skin concerns noted to skin under collar of trach. NO erythema or evidence of skin erosion at GT site. Pt noted to have scaly pimple-like rash with webbing noted to R and L axillae, undersides of both breasts, Bilat groin and lower back. Tracking and webbing noted to hands and feet. Pt restless and scratching at skin. Non-Blanching erythema without induration or fluctuance noted to R and L hips and trochanteric areas.Non-blanching erythema noted along spine. Non-Blanching erythema without induration noted to Sacrum. Non-Blanching erythema noted to R and L Malleoli and both heels. Tx.Plan: Please apply Cavilon Skin Barrier to each bony Prominences at risks for Skin Breakdown. Cover each area with Optifoam drsgs. Change every 7 days and prn. Apply Moisture Barrier Paste to Sacrum. Cover with Optifoam drsg. Change every 3 days and prn. Reposition at least every 2hours or as tolerated. Off-load heels with pillow. APM/EMELI Mattress overlay. improving cont current care plan There is marked enlargement of the third and lateral ventricles and extra axial CSF spaces, in particular the former. There is considerable periventricular deep white matter low-attenuation. Otherwise normal mobley-white differentiation. No acute hemorrhage or edema. No mass effect nor midline shift. Visualized orbits and sinuses are unremarkable. The calvarium is intact Impression: Third and lateral ventriculomegaly. Associated enlargement of the extra axial CSF spaces indicates that this is probably due to central volume loss, but the possibility of hydrocephalus should also be considered. At the degree of volume loss is considerably out of proportion to patient's age. Correlate with clinical history Periventricular deep white matter low-attenuation. Probably on the basis of microvascular ischemic change but given patient's age the possibility of demyelinating disease should be considered as well. Negative for acute intracranial bleed or mass effect (3) GI bleed (4) G tube feedings Assessment & Plan: DAILY ESTIMATED NEEDS: Needs based on Underweight, critical care 37.3kg 30-40 kcals/kg [id number] total kcals 1.25-2 g protein/kg 47-75 g total protein 25-35 mL/kg [phone] total fluid mLs NUTRITION DIAGNOSIS: Increased kcal and pro needs r/t underweight status as evidenced by BMI 14.1, pt is 68% of ideal body weight w/ generalized severe wasting, trach and peg dep. CURRENT TF:Vital AF 1.2 @55 x20 hrs ENTERAL NUTRITION RECOMMENDATIONS: Vital AF 1.2 @ 55ml/hr x20 hrs to provide 1100ml 1320kcal 83g prot, 892ml free water - Rec to continue elemental TF formula while stool C-diff positive, +LBM - HOLD 1HR BEFORE AND AFTER SYNTHROID MEDS - Flush per . HOB over 30 degrees ADDITIONAL RECOMMENDATIONS: 1) Per SNF: 5'4" and 81# Maintain calibrated bed scale wts w/ added P200 mattress 2) Lytes daily madhav w/ loose stools, replete as needed 3) Skin integrity: Continue BRIAN VIA GT BID + Vit C 4) Accuchecks for Hypoglycemia 5) Add probiotics for stool C-diff+ . George Woods Jan 22, 2020 12:22
[2020-01-22] MEDS: DOPamine 400mg/250ml 250 ML IV SCH (18:10)
--- NOTE | 2020-01-22 19:37 | Cardiology Progress Note ---
Assessment/Plan Assessment/Plan 1. Hypotension, could be due to Keppra, increase midodrine to 5mg tid. Increase dopamine gtt to 7.5mcg. 2. Sinus bradycardia, recurrent, both dopamine gtt and midodrine increased. 3. Anemia of chronic disease 4. Acute renal failure, resolved. 5. GI bleeding due to gastric ulceration. 6. Dysphagia, s/p PEG placement. 7. VDRF, s/p tracheostomy tube placement. Subjective Subjective Sinus bradycardia at rate of 41. On the vent with FiO2 of 30%. Objective Last 24 Hour Vital Signs Date Time Temp Pulse Resp B/P (MAP) Pulse Ox O2 Delivery O2 Flow Rate FiO2 01/22/20 19:26 41 14 30 01/22/20 18:10 91/51 01/22/20 17:10 46 13 30 01/22/20 16:00 Mechanical Ventilator 01/22/20 16:00 97.7 65 18 91/51 (64) 99 01/22/20 16:00 52 01/22/20 16:00 30 01/22/20 15:10 52 17 30 01/22/20 15:00 97/57 01/22/20 13:10 52 13 30 01/22/20 12:00 Mechanical Ventilator 01/22/20 12:00 59 01/22/20 12:00 98.9 52 19 90/44 (59) 100 01/22/20 12:00 30 01/22/20 11:00 90/57 01/22/20 10:40 59 15 30 01/22/20 09:10 59 17 30 01/22/20 09:00 95 01/22/20 08:00 Mechanical Ventilator 01/22/20 08:00 98.1 62 15 112/50 (70) 100 01/22/20 08:00 57 01/22/20 08:00 121/65 01/22/20 08:00 30 01/22/20 07:10 57 16 30 01/22/20 05:42 66 106/54 (71) 01/22/20 05:20 60 14 30 01/22/20 04:00 30 01/22/20 04:00 97.5 62 21 115/54 (74) 100 01/22/20 04:00 Mechanical Ventilator 01/22/20 03:39 70 01/22/20 03:15 69 16 30 01/22/20 01:05 56 12 30 01/22/20 00:00 Mechanical Ventilator 01/22/20 00:00 30 01/22/20 00:00 97.5 60 15 104/58 (73) 100 01/22/20 00:00 62 01/21/20 23:15 59 16 30 01/21/20 20:40 89 14 30 01/21/20 20:00 97.9 65 13 89/52 (64) 98 01/21/20 20:00 30 01/21/20 20:00 Mechanical Ventilator Intake and Output 01/21/20 01/22/20 19:00 07:00 Intake Total 801.974 ml 1043.688 ml Output Total 250 ml 550 ml Balance 551.974 ml 493.688 ml Intake Free Water 300 ml 300 ml IV Total 6.974 ml 83.688 ml Tube Feeding 495 ml 660 ml Output Urine Total 250 ml 450 ml Stool Total 100 ml 2D Echo: LVEF 65%, RVSP 23 mmHg, Grade I LVDD Laboratory Tests Test 01/22/20 03:40 Sodium Level 141 MMOL/L (136-145) Potassium Level 4.0 MMOL/L (3.5-5.1) Chloride Level 106 MMOL/L (98-107) Carbon Dioxide Level 29 MMOL/L (21-32) Anion Gap 6 mmol/L (5-15) Blood Urea Nitrogen 29 mg/dL (7-18) H Creatinine 0.5 MG/DL (0.55-1.30) L Estimat Glomerular Filtration Rate > 60 mL/min (>60) Glucose Level 83 MG/DL (74-106) Calcium Level 10.1 MG/DL (8.5-10.1) Objective HEENT: PERRLA, EOMI, Trach site with moderate secretions. NECK: Cannot assess JVP, no carotid bruit with normal upstroke. LUNGS: Bilateral rhonchi. CARDIAC: Regular rhythm and rate. Bradycardic. Normal S1, S2 with no murmurs, gallops or rubs. ABDOMEN: Soft with G-tube. No hepatomegaly. EXTREMITIES: No edema, clubbing or cyanosis. Desmond Gleason MD Jan 22, 2020 19:37
--- NOTE | 2020-01-22 19:52 | General Progress Note ---
Assessment/Plan Status: stable, other - Patient is now hypotensive before over 46 she will receive 500 cc of normal saline bolus to be repeated blood pressure remained below 90 further management will be decided following the boluses treatment repeat laboratory tests will be done in kori BISHOP MD Status Narrative Because of her persistent hypotension and bradycardia patient will have central line inserted. Patient will be transferred to the ICU dopamine at 7-1/2 mcg/min will be administered. Repeat laboratory tests will be done in kori BISHOP MD Assessment/Plan: Glenny Harrison Subjective Constitutional: Reports: other - Lethargic no eye contact but easily arousable Cardiovascular: Reports: no symptoms, other - Patient is hypotensive and bradycardic now for several hours blood pressure is between 85-88 heart rate is between 45 and 48 Respiratory: Reports: no symptoms Gastrointestinal/Abdominal: Reports: no symptoms Genitourinary: Reports: no symptoms Neurologic/Psychiatric: Reports: anxiety, weakness Allergies: Coded Allergies: CARBAMAZEPINE (Verified Allergy, Unknown, 12/31/19) LORAZEPAM (Verified Allergy, Unknown, 12/31/19) Objective Last 24 Hour Vital Signs Date Time Temp Pulse Resp B/P (MAP) Pulse Ox O2 Delivery O2 Flow Rate FiO2 01/22/20 19:26 41 14 30 01/22/20 18:10 91/51 01/22/20 17:10 46 13 30 01/22/20 16:00 Mechanical Ventilator 01/22/20 16:00 97.7 65 18 91/51 (64) 99 01/22/20 16:00 52 01/22/20 16:00 30 01/22/20 15:10 52 17 30 01/22/20 15:00 97/57 01/22/20 13:10 52 13 30 01/22/20 12:00 Mechanical Ventilator 01/22/20 12:00 59 01/22/20 12:00 98.9 52 19 90/44 (59) 100 01/22/20 12:00 30 01/22/20 11:00 90/57 01/22/20 10:40 59 15 30 01/22/20 09:10 59 17 30 01/22/20 09:00 95 01/22/20 08:00 Mechanical Ventilator 01/22/20 08:00 98.1 62 15 112/50 (70) 100 01/22/20 08:00 57 01/22/20 08:00 121/65 01/22/20 08:00 30 01/22/20 07:10 57 16 30 01/22/20 05:42 66 106/54 (71) 01/22/20 05:20 60 14 30 01/22/20 04:00 30 01/22/20 04:00 97.5 62 21 115/54 (74) 100 01/22/20 04:00 Mechanical Ventilator 01/22/20 03:39 70 01/22/20 03:15 69 16 30 01/22/20 01:05 56 12 30 01/22/20 00:00 Mechanical Ventilator 01/22/20 00:00 30 01/22/20 00:00 97.5 60 15 104/58 (73) 100 01/22/20 00:00 62 01/21/20 23:15 59 16 30 01/21/20 20:40 89 14 30 01/21/20 20:00 97.9 65 13 89/52 (64) 98 01/21/20 20:00 30 01/21/20 20:00 Mechanical Ventilator Intake and Output 01/21/20 01/22/20 19:00 07:00 Intake Total 801.974 ml 1043.688 ml Output Total 250 ml 550 ml Balance 551.974 ml 493.688 ml Intake Free Water 300 ml 300 ml IV Total 6.974 ml 83.688 ml Tube Feeding 495 ml 660 ml Output Urine Total 250 ml 450 ml Stool Total 100 ml Laboratory Tests 01/22/20 03:40: Sodium Level 141, Potassium Level 4.0, Chloride Level 106, Carbon Dioxide Level 29, Anion Gap 6, Blood Urea Nitrogen 29H, Creatinine 0.5L, Estimat Glomerular Filtration Rate > 60, Glucose Level 83, Calcium Level 10.1 Height (Feet): 5 Height (Inches): 1.00 Weight (Pounds): 80 General Appearance: no apparent distress, lethargic EENT: normal ENT inspection Neck: supple Cardiovascular: no JVD, bradycardia Respiratory/Chest: lungs clear, normal breath sounds, respiratory distress Abdomen: normal bowel sounds, non tender, soft, no organomegaly, no mass Extremities: non-tender Glenny Bishop MD Jan 22, 2020 19:52
[2020-01-22] MEDS: OXcarbazepine 150mg tab ORAL SCH (20:44)
[2020-01-22] MEDS ORDERED: DOPamine 400mg/250ml 250 ML IV SCH (22:45)
[2020-01-23] VITALS (20 sets, daily range): BP systolic 83–139; BP diastolic 51–92
[2020-01-23] MEDS ORDERED: Acetaminophen 650mg/20.3ml GT PRN ×2 (05:00→19:41)
[2020-01-23] MEDS ORDERED: Haloperidol 5mg/ml Inj IM PRN ×2 (05:30→19:41)
[2020-01-23 05:35] LABS: EOSINOPHILS % (AUTO) 7.2 % (0.0-3.0); HEMATOCRIT 37.2 % (37.0-47.0); HEMOGLOBIN 11.7 G/DL (12.0-16.0); LYMPHOCYTES % (AUTO) 17.7 % (20.0-45.0); MEAN CORPUSCULAR VOLUME 94 FL (80-99); NEUTROPHILS % (AUTO) 67.1 % (45.0-75.0); PLATELET COUNT 376 K/UL (150-450); RED BLOOD COUNT 3.95 M/UL (4.20-5.40); RED CELL DISTRIBUTION WIDTH 15.2 % (11.6-14.8); WHITE BLOOD COUNT 11.4 K/UL (4.8-10.8)
[2020-01-23 05:57] LABS: ALANINE AMINOTRANSFERASE 33 U/L (12-78); ALBUMIN/GLOBULIN RATIO 0.6 (1.0-2.7); ALKALINE PHOSPHATASE 104 U/L (46-116); ANION GAP 7 mmol/L (5-15); ASPARTATE AMINO TRANSFERASE 28 U/L (15-37); BILIRUBIN,TOTAL 0.2 MG/DL (0.2-1.0); BLOOD UREA NITROGEN 29 mg/dL (7-18); CALCIUM 9.7 MG/DL (8.5-10.1); CARBON DIOXIDE 28 MMOL/L (21-32); CHLORIDE 107 MMOL/L (98-107); CREATININE 0.4 MG/DL (0.55-1.30); POTASSIUM 4.4 MMOL/L (3.5-5.1); SODIUM 141 MMOL/L (136-145)
[2020-01-23] MEDS ORDERED: metroNIDAZOLE 500mg tab ORAL SCH (06:00)
--- NOTE | 2020-01-23 07:52 | Hematology/Onc Progress Note ---
Assessment/Plan Assessment/Plan # Thrombocytopenia med related v labs error --> plt trend 167-->61-->227 --> meds have been reviewed --> no hep or lovenox (if less than 50k plt) # Anemia rule out underlying gi bleed --> Dr. Carrillo has been consulted-->endosco gastric ulceration --> trend hgb 7-->7.4-->7.9-->8.1->9.6-->8.5->9.1-->10-->11-->10.3-->10.4-->11 --> anemia panel ordered-->reviewed --> prn transfusion --> protonix started # Leukocytosis is likely related to pna on imaging --> abx has been started --> if wbc worsens, consider abx vanc/zosyn--> ceftriaxone-->vanc->fluc/flagyl/ vanc-->flagyl/fidoxomicin --> smear is noted --> wbc 25-->15-->14-->16->7.6-->12-->20->13->11 --> pressors prn # Sepsis --> on abx for pna --> pressors as needed # Pneumonia --> pulm, Dr. 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 configuration management consultant care, will follow Subjective HEENT: Denies: no symptoms, eye pain, blurred vision, tearing, double vision, ear pain, ear discharge, nose pain, nose congestion, throat pain, throat swelling, mouth pain, mouth swelling, other Cardiovascular: Denies: no symptoms, chest pain, edema, irregular heart rate, lightheadedness, palpitations, syncope, other Respiratory: Denies: no symptoms, cough, shortness of breath, SOB with excertion, SOB at rest, sputum, wheezing, other Gastrointestinal/Abdominal: Denies: no symptoms, abdomen distended, abdominal pain, black stools, tarry stools, blood in stool, constipated, diarrhea, difficulty swallowing, nausea, poor appetite, poor fluid intake, rectal bleeding , vomiting, other Genitourinary: Denies: no symptoms, burning, discharge, frequency, flank pain, hematuria, incontinence, pain, urgency, other Neurologic/Psychiatric: Denies: no symptoms, anxiety, depressed, emotional problems, headache, numbness, paresthesia, pre-existing deficit, seizure, tingling, tremors, weakness, other Endocrine: Denies: no symptoms, excessive sweating, flushing, intolerance to cold, intolerance to heat, increased hunger, increased thirst, increased urine, unexplained weight gain, unexplained weight loss, other Hematologic/Lymphatic: Denies: no symptoms, anemia, easy bleeding, easy bruising, adenopathy, other Allergies: Coded Allergies: CARBAMAZEPINE (Verified Allergy, Unknown, 12/31/19) LORAZEPAM (Verified Allergy, Unknown, 12/31/19) Subjective 01/01 altered, trach, no bleedin wbc improved on abx, seen by gi 01/02 egd study noted, also with plts 61k, have vitaly Armendariz Rn, will recheck cbc 01/03 remains agitated, vitaly rn, no bleeding, cbc noted as well as id recs 01/04 on vent, with melena overnight, no bleeding, vitaly rn, labs reviewed 01/06 on vent, remains agitated, no bleeding, vitaly rn, smear is noted 01/07 on vent, restless, asymptomatic, noncooperative 01/[address] John obtained, reviewed, meds adjusted, eeg pending 01/09 labs noted, no bleeding, ativan has been discontinued, meds reviewed 01/10 trach to vent, agitated, with wrist restraints, no major changes, no bleeding 01/11 labs are reviewed, on trach to vent, no bleeding, agitated overnight, no complaints 01/13 labs noted, no bleeding, is on vent/trach, no bleeding, vitaly rn, labs are noted 01/14 labs are noted, no bleeding, remains on v/t, remains agitated, no bleeding 01/15 is c.diff positive, wbc higher at 21k, labs noted, on abx, reviewed gi, id recs 01/16 remains on vent, wbc is improved, in sr, as abx per id 01/17 recieved dopamine, tube feeds, on soft restraints, no bleeding, vitaly longoria 01/18 labs are noted, no bleeding, vitaly rn, no major changes 01/20 on dopamine gtt, with restraints, no major changes, labs noted 01/21 labs reviewed, no bleeding, vitaly rn, no major changes 01/22 transferred to icu for higher loc, dopamine on hold as bp is good, have increased Synthroid Objective Objective Current Medications Medications (Trade) Dose Ordered Sig/Villa Route PRN Reason Start Time Stop Time Status Last Admin Dose Admin Acetaminophen (Tylenol) 650 mg Q6H PRN GT Temp >100.5 01/23/20 05:00 01/31/20 10:59 Ascorbic Acid (Vitamin C) 500 mg DAILY ORAL 01/23/20 09:00 01/31/20 08:59 Dopamine HCl/ Dextrose 250 ml @ 0 mls/hr Q24H IV 01/22/20 22:45 04/21/20 22:44 Future Hold Famotidine (Pepcid) 20 mg BID ORAL 01/23/20 09:00 04/09/20 17:59 Fidaxomicin (Dificid) 200 mg EVERY 12 HOURS ORAL 01/23/20 09:00 01/26/20 09:01 Gabapentin (Neurontin) 900 mg TID GT 01/23/20 09:00 02/19/20 17:59 Haloperidol Lactate (Haldol) 5 mg Q6H PRN IM Agitation 01/23/20 05:30 02/15/20 23:29 Levetiracetam (Keppra) 1,500 mg Q12HR GT 01/23/20 09:00 02/07/20 08:59 Levothyroxine Sodium (Synthroid) 125 mcg ACBREAKFAST ORAL 01/24/20 06:30 02/10/20 06:29 Metronidazole (Flagyl) 500 mg Q8HR ORAL 01/23/20 06:00 01/23/20 13:59 01/23/20 05:58 Midodrine (Pro-Amatine) 5 mg TID ORAL 01/23/20 09:00 04/21/20 08:59 Multivitamins Therapeutic (Therapeutic Multivitamin) 1 ea DAILY ORAL 01/23/20 09:00 01/31/20 08:59 Ondansetron HCl (Zofran) 4 mg Q6H PRN ORAL Nausea & Vomiting 01/23/20 09:00 01/30/20 20:59 Oxcarbazepine (TrileptaL) 300 mg BEDTIME ORAL 01/23/20 21:00 02/07/20 20:59 Potassium Chloride (K-Dur) 20 meq TWICE A DAY GT 01/23/20 09:00 04/10/20 08:59 Thiamine HCl (Vitamin B1) 100 mg DAILY ORAL 01/23/20 09:00 01/31/20 08:59 Last 24 Hour Vital Signs Date Time Temp Pulse Resp B/P (MAP) Pulse Ox O2 Delivery O2 Flow Rate FiO2 01/23/20 07:00 97 18 119/90 (100) 97 01/23/20 06:00 97.1 85 22 112/63 (79) 98 85 01/23/20 05:00 99 18 103/56 (72) 93 99 01/23/20 04:00 30 01/23/20 04:00 90 01/23/20 04:00 90 19 88/59 (69) 94 90 01/23/20 03:30 87 17 30 01/23/20 03:00 86 19 107/64 (78) 99 86 01/23/20 02:00 97.7 86 18 111/88 (96) 100 86 01/23/20 00:00 97.9 41 18 83/51 (62) 100 01/23/20 00:00 Mechanical Ventilator 01/22/20 23:31 44 01/22/20 23:30 45 14 30 01/22/20 22:28 98.1 40 18 90/55 (67) 100 01/22/20 20:00 98.1 41 18 80/53 (62) 99 01/22/20 20:00 Mechanical Ventilator 01/22/20 20:00 42 01/22/20 20:00 30 01/22/20 19:26 41 14 30 01/22/20 18:10 91/51 01/22/20 17:10 46 13 30 01/22/20 16:00 Mechanical Ventilator 01/22/20 16:00 97.7 65 18 91/51 (64) 99 01/22/20 16:00 52 01/22/20 16:00 30 01/22/20 15:10 52 17 30 01/22/20 15:00 97/57 01/22/20 13:10 52 13 30 01/22/20 12:00 Mechanical Ventilator 01/22/20 12:00 59 01/22/20 12:00 98.9 52 19 90/44 (59) 100 01/22/20 12:00 30 01/22/20 11:00 90/57 01/22/20 10:40 59 15 30 01/22/20 09:10 59 17 30 01/22/20 09:00 95 01/22/20 08:00 Mechanical Ventilator 01/22/20 08:00 98.1 62 15 112/50 (70) 100 01/22/20 08:00 57 01/22/20 08:00 121/65 01/22/20 08:00 30 01/22/20 07:10 57 16 30 01/22/20 05:42 66 106/54 (71) 01/22/20 05:20 60 14 30 01/22/20 04:00 30 01/22/20 04:00 97.5 62 21 115/54 (74) 100 01/22/20 04:00 Mechanical Ventilator 01/22/20 03:39 70 01/22/20 03:15 69 16 30 01/22/20 01:05 56 12 30 01/22/20 00:00 Mechanical Ventilator 01/22/20 00:00 30 01/22/20 00:00 97.5 60 15 104/58 (73) 100 01/22/20 00:00 62 01/21/20 23:15 59 16 30 01/21/20 20:40 89 14 30 01/21/20 20:00 97.9 65 13 89/52 (64) 98 01/21/20 20:00 30 01/21/20 20:00 Mechanical Ventilator 01/21/20 19:05 68 01/21/20 19:00 70 15 30 01/21/20 18:29 92/60 01/21/20 16:00 30 01/21/20 16:00 77 01/21/20 16:00 97.5 78 16 92/60 (71) 98 01/21/20 16:00 Mechanical Ventilator 01/21/20 15:10 77 20 30 01/21/20 13:13 75 20 30 01/21/20 12:00 Mechanical Ventilator 01/21/20 12:00 30 01/21/20 12:00 98.2 75 16 91/56 (68) 100 01/21/20 12:00 74 01/21/20 11:00 73 22 30 01/21/20 09:30 100 01/21/20 09:10 79 20 30 01/21/20 08:00 Mechanical Ventilator 01/21/20 08:00 74 01/21/20 08:00 97.9 76 19 101/63 (76) 96 01/21/20 08:00 30 Intake and Output 01/22/20 01/23/20 19:00 07:00 Intake Total 823.688 ml 761.844 ml Output Total 450 ml Balance 823.688 ml 311.844 ml Intake Free Water 300 ml 60 ml IV Total 83.688 ml 41.844 ml Tube Feeding 440 ml 660 ml Output Urine Total 450 ml Labs Test 01/21/20 04:45 01/22/20 03:40 01/23/20 04:20 Sodium Level 142 MMOL/L (136-145) 141 MMOL/L (136-145) 141 MMOL/L (136-145) Potassium Level 4.3 MMOL/L (3.5-5.1) 4.0 MMOL/L (3.5-5.1) 4.4 MMOL/L (3.5-5.1) Chloride Level 104 MMOL/L (98-107) 106 MMOL/L (98-107) 107 MMOL/L (98-107) Carbon Dioxide Level 30 MMOL/L (21-32) 29 MMOL/L (21-32) 28 MMOL/L (21-32) Anion Gap 8 mmol/L (5-15) 6 mmol/L (5-15) 7 mmol/L (5-15) Blood Urea Nitrogen 26 mg/dL (7-18) 29 mg/dL (7-18) 29 mg/dL (7-18) Creatinine 0.5 MG/DL (0.55-1.30) 0.5 MG/DL (0.55-1.30) 0.4 MG/DL (0.55-1.30) Estimat Glomerular Filtration Rate > 60 mL/min (>60) > 60 mL/min (>60) > 60 mL/min (>60) Glucose Level 104 MG/DL (74-106) 83 MG/DL (74-106) 87 MG/DL (74-106) Calcium Level 10.0 MG/DL (8.5-10.1) 10.1 MG/DL (8.5-10.1) 9.7 MG/DL (8.5-10.1) White Blood Count 11.4 K/UL (4.8-10.8) Red Blood Count 3.95 M/UL (4.20-5.40) Hemoglobin 11.7 G/DL (12.0-16.0) Hematocrit 37.2 % (37.0-47.0) Mean Corpuscular Volume 94 FL (80-99) Mean Corpuscular Hemoglobin 29.6 PG (27.0-31.0) Mean Corpuscular Hemoglobin Concent 31.4 G/DL (32.0-36.0) Red Cell Distribution Width 15.2 % (11.6-14.8) Platelet Count 376 K/UL (150-450) Mean Platelet Volume 6.0 FL (6.5-10.1) Neutrophils (%) (Auto) 67.1 % (45.0-75.0) Lymphocytes (%) (Auto) 17.7 % (20.0-45.0) Monocytes (%) (Auto) 7.0 % (1.0-10.0) Eosinophils (%) (Auto) 7.2 % (0.0-3.0) Basophils (%) (Auto) 1.0 % (0.0-2.0) Total Bilirubin 0.2 MG/DL (0.2-1.0) Aspartate Amino Transf (AST/SGOT) 28 U/L (15-37) Alanine Aminotransferase (ALT/SGPT) 33 U/L (12-78) Alkaline Phosphatase 104 U/L (46-116) Total Protein 7.9 G/DL (6.4-8.2) Albumin 3.0 G/DL (3.4-5.0) Globulin 4.9 g/dL Albumin/Globulin Ratio 0.6 (1.0-2.7) Thyroid Stimulating Hormone (TSH) 0.123 uiU/mL (0.358-3.740) Height (Feet): 5 Height (Inches): 1.00 Weight (Pounds): 80 Objective Vital Signs General Appearance: ++ cachectic, chronically ill HEENT: normocephalic, atraumatic ++ trach Resp: other -. vent ++ Cardiovascular: regular rate, rhythm, no edema Gastrointestinal: gtube in place, without erythema Rectal: other - Hemoccult positive [place]: back normal, gait/station normal, non-tender Lymphatic: no adenopathy Baltazar Cortes MD Jan 23, 2020 07:52
[2020-01-23] MEDS ORDERED: levETIRAcetam 500mg/5ml Liquid GT SCH (09:00)
[2020-01-23] MEDS ORDERED: Multivitamin w/Minerals tab ORAL SCH (09:00)
[2020-01-23] MEDS ORDERED: Thiamine 100mg tab ORAL SCH (09:00)
[2020-01-23] MEDS ORDERED: Ascorbic Acid 500mg tab ORAL SCH (09:00)
--- NOTE | 2020-01-23 09:54 | Nephrology Progress Note ---
Assessment/Plan Problem List: (1) RICHARD (acute kidney injury) (2) Dehydration (3) Anemia (4) GI bleed (5) Malnutrition (6) Seizure disorder (7) Electrolyte imbalance Assessment Renal failure, in the form of prerenal azotemia, most likely secondary to GI bleed GI bleed, leading to severe anemia Sepsis, pneumonia Chronic tracheostomy, ventilator dependent History of CVA History of seizure disorder History of psychiatric disorder Severe malnutrition Electrolyte abnormalities Plan January 22: Patient in ICU now. Vital signs and heart rate and blood pressure appears to be stable. Patient had an episode of bradycardia but it was resolved. TSH level today is very low will cut down on Synthroid dose. January 21: Today's labs are reviewed. Stable renal parameters. Continue per consultants. January 20: Labs reviewed. Renal parameters stable. January 19: Labs reviewed. Stable from renal standpoint. January 18: No labs done today. Continue per consultants. Medications reviewed. January 17: Late note entry due to system problem at the [facility] today.Chemistry panel reviewed. Stable from renal standpoint of view. Continue per current management. January 16: No can panel today. Check lab tomorrow. Remains stable from renal standpoint of view. January 15: Lab reviewed. Renal parameters stable. January 14: Lab reviewed. Renal parameters stable. January 13: Labs reviewed. Stable from renal standpoint of view. January 12: Labs reviewed. Stable from renal standpoint of view January 11: No labs drawn today stable from renal standpoint of view January 10: Labs reviewed. Potassium supplement given. Continue per consultants. January 09: Lab reviewed. Potassium supplement given. IV fluid discontinued. January 08: Lab reviewed. Renal parameters stable. Continue per consultants. January 07: Lab reviewed. Renal parameters stable. Continue per consultants. January 06: Lab reviewed. Stable from renal standpoint of view. January 05: Labs reviewed. Stable from renal standpoint of view. Continue per consultants. January 04: No labs drawn today. Will check labs tomorrow. Continue per consultants. January 03: Lab reviewed. Renal parameters stable. IV fluid discontinued. High LFTs declining. Continue same. January 02: Lab reviewed. Renal parameters stable. Continue per PMD and consultants. LFTs remain elevated. Continue to monitor. Continue slow hydration Discontinue blood pressure medications as her blood pressure is low Discontinue diuretics Monitor renal parameters Transfusion as needed GI evaluation Correct electrolyte abnormalities Check B12 level, folate, and thyroid function tests: Results noted Subjective ROS Limited/Unobtainable: Yes Objective Objective Last 24 Hour Vital Signs Date Time Temp Pulse Resp B/P (MAP) Pulse Ox O2 Delivery O2 Flow Rate FiO2 01/23/20 09:00 83 16 127/77 (94) 99 83 01/23/20 08:00 86 23 114/72 (86) 98 86 01/23/20 08:00 30 01/23/20 07:00 97 18 119/90 (100) 97 01/23/20 06:42 95 19 30 01/23/20 06:00 97.1 85 22 112/63 (79) 98 85 01/23/20 05:00 99 18 103/56 (72) 93 99 01/23/20 04:00 30 01/23/20 04:00 90 01/23/20 04:00 90 19 88/59 (69) 94 90 01/23/20 03:30 87 17 30 01/23/20 03:00 86 19 107/64 (78) 99 86 01/23/20 02:00 97.7 86 18 111/88 (96) 100 86 01/23/20 00:00 97.9 41 18 83/51 (62) 100 01/23/20 00:00 Mechanical Ventilator 01/22/20 23:31 44 01/22/20 23:30 45 14 30 01/22/20 22:28 98.1 40 18 90/55 (67) 100 01/22/20 20:00 98.1 41 18 80/53 (62) 99 01/22/20 20:00 Mechanical Ventilator 01/22/20 20:00 42 01/22/20 20:00 30 01/22/20 19:26 41 14 30 01/22/20 18:10 91/51 01/22/20 17:10 46 13 30 01/22/20 16:00 Mechanical Ventilator 01/22/20 16:00 97.7 65 18 91/51 (64) 99 01/22/20 16:00 52 01/22/20 16:00 30 01/22/20 15:10 52 17 30 01/22/20 15:00 97/57 01/22/20 13:10 52 13 30 01/22/20 12:00 Mechanical Ventilator 01/22/20 12:00 59 01/22/20 12:00 98.9 52 19 90/44 (59) 100 01/22/20 12:00 30 01/22/20 11:00 90/57 01/22/20 10:40 59 15 30 Intake and Output 01/22/20 01/23/20 19:00 07:00 Intake Total 823.688 ml 761.844 ml Output Total 450 ml Balance 823.688 ml 311.844 ml Intake Free Water 300 ml 60 ml IV Total 83.688 ml 41.844 ml Tube Feeding 440 ml 660 ml Output Urine Total 450 ml Laboratory Tests 01/23/20 04:20: White Blood Count 11.4H, Red Blood Count 3.95L, Hemoglobin 11.7L, Hematocrit 37.2, Mean Corpuscular Volume 94, Mean Corpuscular Hemoglobin 29.6, Mean Corpuscular Hemoglobin Concent 31.4L, Red Cell Distribution Width 15.2H, Platelet Count 376, Mean Platelet Volume 6.0L, Neutrophils (%) (Auto) 67.1, Lymphocytes (%) (Auto) 17.7L, Monocytes (%) (Auto) 7.0, Eosinophils (%) (Auto) 7.2H, Basophils (%) (Auto) 1.0, Sodium Level 141, Potassium Level 4.4, Chloride Level 107, Carbon Dioxide Level 28, Anion Gap 7, Blood Urea Nitrogen 29H, Creatinine 0.4L, Estimat Glomerular Filtration Rate > 60, Glucose Level 87, Calcium Level 9.7, Total Bilirubin 0.2, Aspartate Amino Transf (AST/SGOT) 28, Alanine Aminotransferase (ALT/SGPT) 33, Alkaline Phosphatase 104, Total Protein 7.9, Albumin 3.0L, Globulin 4.9, Albumin/Globulin Ratio 0.6L, Thyroid Stimulating Hormone (TSH) 0.123L Height (Feet): 5 Height (Inches): 1.00 Weight (Pounds): 80 General Appearance: no apparent distress EENT: other - Trach to vent Cardiovascular: normal rate - Rate 80s Respiratory/Chest: decreased breath sounds Abdomen: other - PEG Objective No change Chivo Holloway MD Jan 23, 2020 09:54
--- NOTE | 2020-01-23 10:57 | Pulmonolgy Critical Care Note ---
Ivanna Mora ENTRY LEVEL DRAFTER 01/23/20 1057: Critical Care - Asmt/Plan Assessment/Plan: ASSESSMENT VDRF/trach status Sepsis Possible pneumonia UTI recurrent GI bleeding C dif colitis Anemia secondary to GI bleeding Aspiration risk Dysphagia, feeding by G-tube Encephalopathy Acute kidney injury likely secondary to dehydration Bradycardia Persistent hypotension Electrolyte imbalance Severe protein calorie malnutrition Hx of hypertension History of CVA Seizure disorder with witnessed seizure episode 01/07 Psychiatric disorder Presumed scabies, s/p Rx Thrombocytopenia-transient- resolved PLAN OF CARE ICU dopamine gtt - per cardio HR stabilized, BP better vent support, pulm toilet ABG stable on current settings, on SIMV mode 450-30-12 PEEP5 , no signs of resp distress on these settings keep settings as is and titrate as needed now tachypneic intermittently ABG repeated 01/14 due to tachypnea- remains stable CXR 01/13 stable will fup with CXR pulm toilet via HHN prior started Theophylline per attending, level was high -25; ->was dc leuk now trending down , no fevers, possibly due to C dif pancx-per ID CXR 01/13- no acute findings KUB 01/13- no acute findings UA + yeast , 01/12 UCX +yeast, started on Fluconazole 01/14 as per ID - completed BCX 01/12 NGTD abx as per ID recs Vanco po was prior dc ( pt did not responded well to testament, diarrhea continued) , switched to Dificid , also on Flagyl per GI inflammatory markers : ESR-42, CRP- wnl prior BCX 1 +CONS likely contaminant, off Vanco ; repeated BCX 01/01 and 01/02 NGTD SCX + Proteus , was on Ceftriaxone as per ID recs for poss SBP in setting of GI bleeding - completed BCX 01/01 and 01/02 NGTD stool C dif 01/07 +, on oral vanco rapid COVID 19 NGT in ED aspiration precautions Venous Duplex BLE -negative, get SCD ( unable to give a/c given anemia) closely monitor hemodynamic status Protonix IV GT feeding stool OB positive transfuse to keep Hgb > 7. heme and GI follows s/p EGD 01/01 -> gastric ulcer across G tube site , no active bleeding HH at baseline monitor for any further episodes of Gi bleeding trend LFT-> trended down, hep panel NGT hx of cirrhosis- per GI management hypotension-> Midodrine, s/p IV fluids, on Dopamine gtt bradycardia -> Midodrine dose decreased and prior Theophylline was started by primary but dc due to increased level cardio follows HR better monitor renal parameters, lytes, avoid nephrotoxic BUN trending down, creat stable, likely prerenal due to dehydration replace e/lytes as per nephro recs monitor volumes seizure precautions, antiepileptic optimized as per neuro recs ammonia 49, fup with further neuro recs EEG - grossly abnormal; mild to mod encephalopathy, single ictal episode CT head no acute IC pathology BP management with current regimen SNF meds supportive care dietary recs s/p 12/31 Rx for presumed scabies with permethrin and Ivermectin, repeated Ivermectin 01/08 case discussed and evaluated by supervising physician Critical Care - Objective Last 24 Hour Vital Signs Date Time Temp Pulse Resp B/P (MAP) Pulse Ox O2 Delivery O2 Flow Rate FiO2 01/23/20 10:00 85 18 108/68 (81) 99 85 01/23/20 09:00 83 16 127/77 (94) 99 83 01/23/20 08:00 86 23 114/72 (86) 98 86 01/23/20 08:00 30 01/23/20 07:56 80 01/23/20 07:00 97 18 119/90 (100) 97 01/23/20 06:42 95 19 30 01/23/20 06:00 97.1 85 22 112/63 (79) 98 85 01/23/20 05:00 99 18 103/56 (72) 93 99 01/23/20 04:00 30 01/23/20 04:00 90 01/23/20 04:00 90 19 88/59 (69) 94 90 01/23/20 03:30 87 17 30 01/23/20 03:00 86 19 107/64 (78) 99 86 01/23/20 02:00 97.7 86 18 111/88 (96) 100 86 01/23/20 00:00 97.9 41 18 83/51 (62) 100 01/23/20 00:00 Mechanical Ventilator 01/22/20 23:31 44 01/22/20 23:30 45 14 30 01/22/20 22:28 98.1 40 18 90/55 (67) 100 9/7/20 20:00 98.1 41 18 80/53 (62) 99 01/22/20 20:00 Mechanical Ventilator 01/22/20 20:00 42 01/22/20 20:00 30 01/22/20 19:26 41 14 30 01/22/20 18:10 91/51 01/22/20 17:10 46 13 30 01/22/20 16:00 Mechanical Ventilator 01/22/20 16:00 97.7 65 18 91/51 (64) 99 01/22/20 16:00 52 01/22/20 16:00 30 01/22/20 15:10 52 17 30 01/22/20 15:00 97/57 01/22/20 13:10 52 13 30 01/22/20 12:00 Mechanical Ventilator 01/22/20 12:00 59 01/22/20 12:00 98.9 52 19 90/44 (59) 100 01/22/20 12:00 30 01/22/20 11:00 90/57 Objective: General Appearance: bedridden, pale, chronically ill looking, older than her biological age ; vent dependent female ; on vent SIMV 450-30%-12, PEEP 5 Lines, tubes and drains: peripheral, trach HEENT: normocephalic, atraumatic Neck: trach - Portex #7, secretions small amount, yellow color, thin consistency Respiratory/Chest: CTAB Cardiovascular/Chest: regular rate, regular rhythm Abdomen: non tender, soft, G tube Genitourinary/Rectal: [place] Extremities: no edema, muscle atrophy Neurologic: abnormal gait, poorly responsive, more awake , eyes open Musculoskeletal: atrophy BLE Skin: multiple tattoos Accucheck: 97 Critical Care - Subjective ROS Limited/Unobtainable: Yes Interval Events: transferred to ICU due to hypotension and bradycardia dopamine gtt increased a sper cardio no signs of resp distress on current settings last CXR 01/13 no acute findings ABG stable on curretn settings low TSH noted , dose of Synthroid decreased as per clinical pharmacy coordinator Condition: critical IV Access: central FI02: 30 Vent Support Breath Rate: 12 Vent Support Mode: IMV/SIMV Vent Tidal Volume: 450 Sputum Amount: Small PEEP: 5.0 PIP: 19 Drips: Dopamine gtt 6.97 ml/hr Tube Feeding Amount: 55 I&O: Intake and Output 01/22/20 01/23/20 19:00 07:00 Intake Total 823.688 ml 761.844 ml Output Total 450 ml Balance 823.688 ml 311.844 ml Intake Free Water 300 ml 60 ml IV Total 83.688 ml 41.844 ml Tube Feeding 440 ml 660 ml Output Urine Total 450 ml CXR: CXR 01/13 No acute findings in the chest. Raul Esparza MD 01/23/20 1307: Critical Care - Asmt/Plan Assessment/Plan: Patient seen and examined with ENTRY LEVEL DRAFTER. Agree with above A&P as it reflects our joint deliberations. Disposition: transfer to - PCU Time Spent (Minutes): 40 Discussed with: nurses, consultants Critical Care - Subjective ROS Limited/Unobtainable: Yes ICU Day: 1 Interval Events: TT ICU off DA Condition: stable IV Access: peripheral EKG Rhythm: Sinus Bradycardia Labs: Laboratory Tests 01/23/20 04:20: White Blood Count 11.4H, Red Blood Count 3.95L, Hemoglobin 11.7L, Hematocrit 37.2, Mean Corpuscular Volume 94, Mean Corpuscular Hemoglobin 29.6, Mean Corpuscular Hemoglobin Concent 31.4L, Red Cell Distribution Width 15.2H, Platelet Count 376, Mean Platelet Volume 6.0L, Neutrophils (%) (Auto) 67.1, Lymphocytes (%) (Auto) 17.7L, Monocytes (%) (Auto) 7.0, Eosinophils (%) (Auto) 7.2H, Basophils (%) (Auto) 1.0, Sodium Level 141, Potassium Level 4.4, Chloride Level 107, Carbon Dioxide Level 28, Anion Gap 7, Blood Urea Nitrogen 29H, Creatinine 0.4L, Estimat Glomerular Filtration Rate > 60, Glucose Level 87, Calcium Level 9.7, Total Bilirubin 0.2, Aspartate Amino Transf (AST/SGOT) 28, Alanine Aminotransferase (ALT/SGPT) 33, Alkaline Phosphatase 104, Total Protein 7.9, Albumin 3.0L, Globulin 4.9, Albumin/Globulin Ratio 0.6L, Thyroid Stimulating Hormone (TSH) 0.123L Ivanna Mora NP Jan 23, 2020 10:57 Raul Esparza MD Jan 23, 2020 13:07
--- NOTE | 2020-01-23 11:41 | Infectious Diseases Prog Note ---
Assessment/Plan 39yo F with: Sepsis Fever to 101.5>>Low grade ; SP Possible pna on CXR Leukocytosis; recurrent; increased- now improvign -01/13 CXR: no acute disease -01/12 u/a wbc tnct, nit neg, latrell +3; ucx >100k C. tropicalis Bcx NTD Cdiff colitis -Cdif toxin + -01/13 KUB: no acute findings Recurrent GIB 01/06 u/aneg 12/30 BCx 1/2 +CONS, likely contaminant 12/30 UA neg, COVID rapid Ag neg 12/30 CXR 1. Density overlying the bilateral lung apices. May represent pleural thickening, multifocal airspace opacities, versus summation artifact. 01/01 BCx Neg 01/02 BCx Neg Seizure episode -01/10 CT head: Third and lateral ventriculomegaly. Associated enlargement of the extra axial CSF spaces indicates that this is probably due to central volume loss, but the possibility of hydrocephalus should also be considered. At the degree of volume loss is considerably out of proportion to patient's age. Periventricular deep white matter low-attenuation. Probably on the basis of microvascular ischemic change but given patient's age the possibility of demyelinating disease should be considered as well. Negative for acute intracranial bleed or mass effect Possible Scabies SP tx w/ Permethrin and Ivermectin 12/31 R/o DVT: None on US 12/30 MRSA nares neg Recurrent GIBs, FOBT+ Hepatic encephalopathy, chronic S/p Trach/PEG Resides at SNF Plan: PO Dificid #8/10 as failing PO Vancomycin Noted Flagyl 8 per GI 01/19/20 SP fluconazole #5 01/15 SP PO Vancomycin #8 01/08 SP Ceftriaxone #7 01/02 SP vanco #2, Zosyn #2 SP 2nd dose of ivermectin (01/08) Monitor CBC/CMP Monitor resp status Monitor temp and hemodynamics contact isolation f/u repeat cultures ICU care D/w RN Thank you for this consult. [facility] will continue to follow. Subjective Allergies: Coded Allergies: CARBAMAZEPINE (Verified Allergy, Unknown, 12/31/19) LORAZEPAM (Verified Allergy, Unknown, 12/31/19) afebrile mild leukocytosis at 11 now in ICU seizure episodes on 01/19 pt hypotensive and bradycardic intermittently off pressors currently Objective Last 24 Hour Vital Signs Date Time Temp Pulse Resp B/P (MAP) Pulse Ox O2 Delivery O2 Flow Rate FiO2 01/23/20 11:00 70 18 120/73 (89) 99 70 01/23/20 10:00 85 18 108/68 (81) 99 85 01/23/20 09:00 83 16 127/77 (94) 99 83 01/23/20 08:00 86 23 114/72 (86) 98 86 01/23/20 08:00 30 01/23/20 07:56 80 01/23/20 07:00 97 18 119/90 (100) 97 01/23/20 06:42 95 19 30 01/23/20 06:00 97.1 85 22 112/63 (79) 98 85 01/23/20 05:00 99 18 103/56 (72) 93 99 01/23/20 04:00 30 01/23/20 04:00 90 01/23/20 04:00 90 19 88/59 (69) 94 90 01/23/20 03:30 87 17 30 01/23/20 03:00 86 19 107/64 (78) 99 86 01/23/20 02:00 97.7 86 18 111/88 (96) 100 86 01/23/20 00:00 97.9 41 18 83/51 (62) 100 01/23/20 00:00 Mechanical Ventilator 01/22/20 23:31 44 01/22/20 23:30 45 14 30 01/22/20 22:28 98.1 40 18 90/55 (67) 100 01/22/20 20:00 98.1 41 18 80/53 (62) 99 01/22/20 20:00 Mechanical Ventilator 01/22/20 20:00 42 01/22/20 20:00 30 01/22/20 19:26 41 14 30 01/22/20 18:10 91/51 01/22/20 17:10 46 13 30 01/22/20 16:00 Mechanical Ventilator 01/22/20 16:00 97.7 65 18 91/51 (64) 99 01/22/20 16:00 52 01/22/20 16:00 30 01/22/20 15:10 52 17 30 01/22/20 15:00 97/57 01/22/20 13:10 52 13 30 01/22/20 12:00 Mechanical Ventilator 01/22/20 12:00 59 01/22/20 12:00 98.9 52 19 90/44 (59) 100 01/22/20 12:00 30 Height (Feet): 5 Height (Inches): 1.00 Weight (Pounds): 80 General Appearance: no apparent distress Neck: supple Cardiovascular: normal rate Respiratory/Chest: decreased breath sounds Abdomen: hypoactive bowel sounds Extremities: non-tender Laboratory Tests Test 01/23/20 04:20 White Blood Count 11.4 K/UL (4.8-10.8) H Red Blood Count 3.95 M/UL (4.20-5.40) L Hemoglobin 11.7 G/DL (12.0-16.0) L Hematocrit 37.2 % (37.0-47.0) Mean Corpuscular Volume 94 FL (80-99) Mean Corpuscular Hemoglobin 29.6 PG (27.0-31.0) Mean Corpuscular Hemoglobin Concent 31.4 G/DL (32.0-36.0) L Red Cell Distribution Width 15.2 % (11.6-14.8) H Platelet Count 376 K/UL (150-450) Mean Platelet Volume 6.0 FL (6.5-10.1) L Neutrophils (%) (Auto) 67.1 % (45.0-75.0) Lymphocytes (%) (Auto) 17.7 % (20.0-45.0) L Monocytes (%) (Auto) 7.0 % (1.0-10.0) Eosinophils (%) (Auto) 7.2 % (0.0-3.0) H Basophils (%) (Auto) 1.0 % (0.0-2.0) Sodium Level 141 MMOL/L (136-145) Potassium Level 4.4 MMOL/L (3.5-5.1) Chloride Level 107 MMOL/L (98-107) Carbon Dioxide Level 28 MMOL/L (21-32) Anion Gap 7 mmol/L (5-15) Blood Urea Nitrogen 29 mg/dL (7-18) H Creatinine 0.4 MG/DL (0.55-1.30) L Estimat Glomerular Filtration Rate > 60 mL/min (>60) Glucose Level 87 MG/DL (74-106) Calcium Level 9.7 MG/DL (8.5-10.1) Total Bilirubin 0.2 MG/DL (0.2-1.0) Aspartate Amino Transf (AST/SGOT) 28 U/L (15-37) Alanine Aminotransferase (ALT/SGPT) 33 U/L (12-78) Alkaline Phosphatase 104 U/L (46-116) Total Protein 7.9 G/DL (6.4-8.2) Albumin 3.0 G/DL (3.4-5.0) L Globulin 4.9 g/dL Albumin/Globulin Ratio 0.6 (1.0-2.7) L Thyroid Stimulating Hormone (TSH) 0.123 uiU/mL (0.358-3.740) Current Medications Medications (Trade) Dose Ordered Sig/Villa Route PRN Reason Start Time Stop Time Status Last Admin Dose Admin Acetaminophen (Tylenol) 650 mg Q6H PRN GT Temp >100.5 01/23/20 05:00 01/31/20 10:59 Ascorbic Acid (Vitamin C) 500 mg DAILY GT 01/24/20 09:00 01/31/20 08:59 Famotidine (Pepcid) 20 mg BID GT 01/23/20 10:00 04/22/20 09:59 01/23/20 10:15 Fidaxomicin (Dificid) 200 mg EVERY 12 HOURS ORAL 01/23/20 09:00 01/26/20 09:01 01/23/20 09:09 Gabapentin (Neurontin) 900 mg TID GT 01/23/20 13:00 02/19/20 17:59 Haloperidol Lactate (Haldol) 5 mg Q6H PRN IM Agitation 01/23/20 05:30 02/15/20 23:29 Levetiracetam (Keppra) 1,500 mg Q12HR GT 01/23/20 09:00 02/07/20 08:59 01/23/20 09:07 Levothyroxine Sodium (Synthroid) 50 mcg ACBREAKFAST GT 01/24/20 06:30 02/10/20 06:29 Metronidazole (Flagyl) 500 mg Q8HR GT 01/23/20 14:00 01/26/20 23:59 Midodrine (Pro-Amatine) 5 mg TID GT 01/23/20 13:00 04/21/20 08:59 Multivitamins (Multivitamins W/ Minerals 15ml Liquid) 15 ml DAILY GT 01/24/20 09:00 02/23/20 08:59 Ondansetron HCl (Zofran) 4 mg Q6H PRN GT Nausea & Vomiting 01/23/20 10:00 01/30/20 20:59 Oxcarbazepine (TrileptaL) 300 mg BEDTIME GT 01/23/20 21:00 02/07/20 20:59 Potassium Chloride (K-Dur) 20 meq TWICE A DAY GT 01/23/20 09:00 04/10/20 08:59 01/23/20 09:07 Thiamine HCl (Vitamin B1) 100 mg DAILY GT 01/24/20 09:00 01/31/20 08:59 Char Morel M.D. Jan 23, 2020 11:41
--- NOTE | 2020-01-23 12:36 | General Progress Note ---
Assessment/Plan Problem List: (1) G tube feedings ICD Codes: Z93.1 - Gastrostomy status SNOMED: 744626780, 440845473, 531030831 (2) GI bleed ICD Codes: K92.2 - Gastrointestinal hemorrhage, unspecified SNOMED: 69765243 (3) Sepsis ICD Codes: A41.9 - Sepsis, unspecified organism SNOMED: 58764356 (4) Pneumonia ICD Codes: J18.9 - Pneumonia, unspecified organism SNOMED: 358502356 Status: stable, other - Patient is now hypotensive before over 46 she will receive 500 cc of normal saline bolus to be repeated blood pressure remained below 90 further management will be decided following the boluses treatment repeat laboratory tests will be done in a.m. GEM MCKAY MD Assessment/Plan: s/p EGD gastric ulcer no recurrent bleed G TF monitor H&H C. Diff positive off ppi po vanco pepcid will fu Subjective ROS Limited/Unobtainable: No Allergies: Coded Allergies: CARBAMAZEPINE (Verified Allergy, Unknown, 12/31/19) LORAZEPAM (Verified Allergy, Unknown, 12/31/19) Objective Last 24 Hour Vital Signs Date Time Temp Pulse Resp B/P (MAP) Pulse Ox O2 Delivery O2 Flow Rate FiO2 01/23/20 12:00 30 01/23/20 12:00 97.1 95 24 117/65 (82) 100 95 01/23/20 11:00 70 18 120/73 (89) 99 70 01/23/20 10:00 85 18 108/68 (81) 99 85 01/23/20 09:00 83 16 127/77 (94) 99 83 01/23/20 08:00 86 23 114/72 (86) 98 86 01/23/20 08:00 30 01/23/20 07:56 80 01/23/20 07:00 97 18 119/90 (100) 97 01/23/20 06:42 95 19 30 01/23/20 06:00 97.1 85 22 112/63 (79) 98 85 01/23/20 05:00 99 18 103/56 (72) 93 99 01/23/20 04:00 30 01/23/20 04:00 90 01/23/20 04:00 90 19 88/59 (69) 94 90 01/23/20 03:30 87 17 30 01/23/20 03:00 86 19 107/64 (78) 99 86 01/23/20 02:00 97.7 86 18 111/88 (96) 100 86 01/23/20 00:00 97.9 41 18 83/51 (62) 100 01/23/20 00:00 Mechanical Ventilator 01/22/20 23:31 44 01/22/20 23:30 45 14 30 01/22/20 22:28 98.1 40 18 90/55 (67) 100 01/22/20 20:00 98.1 41 18 80/53 (62) 99 01/22/20 20:00 Mechanical Ventilator 01/22/20 20:00 42 01/22/20 20:00 30 01/22/20 19:26 41 14 30 01/22/20 18:10 91/51 01/22/20 17:10 46 13 30 01/22/20 16:00 Mechanical Ventilator 01/22/20 16:00 97.7 65 18 91/51 (64) 99 01/22/20 16:00 52 01/22/20 16:00 30 01/22/20 15:10 52 17 30 01/22/20 15:00 97/57 01/22/20 13:10 52 13 30 Intake and Output 01/22/20 01/23/20 19:00 07:00 Intake Total 823.688 ml 761.844 ml Output Total 450 ml Balance 823.688 ml 311.844 ml Intake Free Water 300 ml 60 ml IV Total 83.688 ml 41.844 ml Tube Feeding 440 ml 660 ml Output Urine Total 450 ml Laboratory Tests 01/23/20 04:20: White Blood Count 11.4H, Red Blood Count 3.95L, Hemoglobin 11.7L, Hematocrit 37.2, Mean Corpuscular Volume 94, Mean Corpuscular Hemoglobin 29.6, Mean Corpuscular Hemoglobin Concent 31.4L, Red Cell Distribution Width 15.2H, Platelet Count 376, Mean Platelet Volume 6.0L, Neutrophils (%) (Auto) 67.1, Lymphocytes (%) (Auto) 17.7L, Monocytes (%) (Auto) 7.0, Eosinophils (%) (Auto) 7.2H, Basophils (%) (Auto) 1.0, Sodium Level 141, Potassium Level 4.4, Chloride Level 107, Carbon Dioxide Level 28, Anion Gap 7, Blood Urea Nitrogen 29H, Creatinine 0.4L, Estimat Glomerular Filtration Rate > 60, Glucose Level 87, Calcium Level 9.7, Total Bilirubin 0.2, Aspartate Amino Transf (AST/SGOT) 28, Alanine Aminotransferase (ALT/SGPT) 33, Alkaline Phosphatase 104, Total Protein 7.9, Albumin 3.0L, Globulin 4.9, Albumin/Globulin Ratio 0.6L, Thyroid Stimulating Hormone (TSH) 0.123L Height (Feet): 5 Height (Inches): 1.00 Weight (Pounds): 80 General Appearance: no apparent distress EENT: normal ENT inspection Neck: supple Cardiovascular: normal rate Respiratory/Chest: decreased breath sounds Abdomen: normal bowel sounds, non tender, soft Extremities: non-tender Satish Carrillo MD Jan 23, 2020 12:36
--- NOTE | 2020-01-23 12:49 | Surgery Progress Note ---
Surgery Progress Note Subjective Additional Comments hypotensive declining gtt started transferred to ICU Objective Last 24 Hour Vital Signs Date Time Temp Pulse Resp B/P (MAP) Pulse Ox O2 Delivery O2 Flow Rate FiO2 01/23/20 12:00 30 01/23/20 12:00 97.1 95 24 117/65 (82) 100 95 01/23/20 11:00 70 18 120/73 (89) 99 70 01/23/20 10:00 85 18 108/68 (81) 99 85 01/23/20 09:00 83 16 127/77 (94) 99 83 01/23/20 08:00 86 23 114/72 (86) 98 86 01/23/20 08:00 30 01/23/20 07:56 80 01/23/20 07:00 97 18 119/90 (100) 97 01/23/20 06:42 95 19 30 01/23/20 06:00 97.1 85 22 112/63 (79) 98 85 01/23/20 05:00 99 18 103/56 (72) 93 99 01/23/20 04:00 30 01/23/20 04:00 90 01/23/20 04:00 90 19 88/59 (69) 94 90 01/23/20 03:30 87 17 30 01/23/20 03:00 86 19 107/64 (78) 99 86 01/23/20 02:00 97.7 86 18 111/88 (96) 100 86 01/23/20 00:00 97.9 41 18 83/51 (62) 100 01/23/20 00:00 Mechanical Ventilator 01/22/20 23:31 44 01/22/20 23:30 45 14 30 01/22/20 22:28 98.1 40 18 90/55 (67) 100 01/22/20 20:00 98.1 41 18 80/53 (62) 99 01/22/20 20:00 Mechanical Ventilator 01/22/20 20:00 42 01/22/20 20:00 30 01/22/20 19:26 41 14 30 01/22/20 18:10 91/51 01/22/20 17:10 46 13 30 01/22/20 16:00 Mechanical Ventilator 01/22/20 16:00 97.7 65 18 91/51 (64) 99 01/22/20 16:00 52 01/22/20 16:00 30 01/22/20 15:10 52 17 30 01/22/20 15:00 97/57 01/22/20 13:10 52 13 30 I&O Intake and Output 01/22/20 01/23/20 19:00 07:00 Intake Total 823.688 ml 761.844 ml Output Total 450 ml Balance 823.688 ml 311.844 ml Intake Free Water 300 ml 60 ml IV Total 83.688 ml 41.844 ml Tube Feeding 440 ml 660 ml Output Urine Total 450 ml Dressing: other Wound: other Cardiovascular: RSR Respiratory: decreased breath sounds Abdomen: soft, non-tender, present bowel sounds Extremities: no edema, no tenderness, no cyanosis Laboratory Tests Test 01/23/20 04:20 White Blood Count 11.4 K/UL (4.8-10.8) H Red Blood Count 3.95 M/UL (4.20-5.40) L Hemoglobin 11.7 G/DL (12.0-16.0) L Hematocrit 37.2 % (37.0-47.0) Mean Corpuscular Volume 94 FL (80-99) Mean Corpuscular Hemoglobin 29.6 PG (27.0-31.0) Mean Corpuscular Hemoglobin Concent 31.4 G/DL (32.0-36.0) L Red Cell Distribution Width 15.2 % (11.6-14.8) H Platelet Count 376 K/UL (150-450) Mean Platelet Volume 6.0 FL (6.5-10.1) L Neutrophils (%) (Auto) 67.1 % (45.0-75.0) Lymphocytes (%) (Auto) 17.7 % (20.0-45.0) L Monocytes (%) (Auto) 7.0 % (1.0-10.0) Eosinophils (%) (Auto) 7.2 % (0.0-3.0) H Basophils (%) (Auto) 1.0 % (0.0-2.0) Sodium Level 141 MMOL/L (136-145) Potassium Level 4.4 MMOL/L (3.5-5.1) Chloride Level 107 MMOL/L (98-107) Carbon Dioxide Level 28 MMOL/L (21-32) Anion Gap 7 mmol/L (5-15) Blood Urea Nitrogen 29 mg/dL (7-18) H Creatinine 0.4 MG/DL (0.55-1.30) L Estimat Glomerular Filtration Rate > 60 mL/min (>60) Glucose Level 87 MG/DL (74-106) Calcium Level 9.7 MG/DL (8.5-10.1) Total Bilirubin 0.2 MG/DL (0.2-1.0) Aspartate Amino Transf (AST/SGOT) 28 U/L (15-37) Alanine Aminotransferase (ALT/SGPT) 33 U/L (12-78) Alkaline Phosphatase 104 U/L (46-116) Total Protein 7.9 G/DL (6.4-8.2) Albumin 3.0 G/DL (3.4-5.0) L Globulin 4.9 g/dL Albumin/Globulin Ratio 0.6 (1.0-2.7) L Thyroid Stimulating Hormone (TSH) 0.123 uiU/mL (0.358-3.740) Plan Problems: (1) Pneumonia (2) Sepsis Assessment & Plan: leukocytosis anemia lactic acidosis agree with GI recommend EGD planned for 12/31 hold feeding for now trend h/h monitor for bleeding no acute hemorrhage will be available in event needs exploration for hemostasis prbc as per heme thank you will follow with recs cont abx worsening wbc wbc trending down comfortable appearing no n/v hypotensive in ICU again PICC ordered Pt presented on admission in emaciated state. Pt has tracheostomy and GT. NO skin concerns noted to skin under collar of trach. NO erythema or evidence of skin erosion at GT site. Pt noted to have scaly pimple-like rash with webbing noted to R and L axillae, undersides of both breasts, Bilat groin and lower back. Tracking and webbing noted to hands and feet. Pt restless and scratching at skin. Non-Blanching erythema without induration or fluctuance noted to R and L hips and trochanteric areas.Non-blanching erythema noted along spine. Non-Blanching erythema without induration noted to Sacrum. Non-Blanching erythema noted to R and L Malleoli and both heels. Tx.Plan: Please apply Cavilon Skin Barrier to each bony Prominences at risks for Skin Breakdown. Cover each area with Optifoam drsgs. Change every 7 days and prn. Apply Moisture Barrier Paste to Sacrum. Cover with Optifoam drsg. Change every 3 days and prn. Reposition at least every 2hours or as tolerated. Off-load heels with pillow. APM/EMELI Mattress overlay. improving cont current care plan There is marked enlargement of the third and lateral ventricles and extra axial CSF spaces, in particular the former. There is considerable periventricular deep white matter low-attenuation. Otherwise normal mobley-white differentiation. No acute hemorrhage or edema. No mass effect nor midline shift. Visualized orbits and sinuses are unremarkable. The calvarium is intact Impression: Third and lateral ventriculomegaly. Associated enlargement of the extra axial CSF spaces indicates that this is probably due to central volume loss, but the possibility of hydrocephalus should also be considered. At the degree of volume loss is considerably out of proportion to patient's age. Correlate with clinical history Periventricular deep white matter low-attenuation. Probably on the basis of microvascular ischemic change but given patient's age the possibility of demyelinating disease should be considered as well. Negative for acute intracranial bleed or mass effect (3) GI bleed (4) G tube feedings Assessment & Plan: DAILY ESTIMATED NEEDS: Needs based on Underweight, critical care 37.3kg 30-40 kcals/kg [id number] total kcals 1.25-2 g protein/kg 47-75 g total protein 25-35 mL/kg 933-1306 total fluid mLs NUTRITION DIAGNOSIS: Increased kcal and pro needs r/t underweight status as evidenced by BMI 14.1, pt is 68% of ideal body weight w/ generalized severe wasting, trach and peg dep. CURRENT TF:Vital AF 1.2 @55 x20 hrs ENTERAL NUTRITION RECOMMENDATIONS: Vital AF 1.2 @ 55ml/hr x20 hrs to provide 1100ml 1320kcal 83g prot, 892ml free water - Rec to continue elemental TF formula while stool C-diff positive, +LBM - HOLD 1HR BEFORE AND AFTER SYNTHROID MEDS - Flush per MD. HOB over 30 degrees ADDITIONAL RECOMMENDATIONS: 1) Per SNF: 5'4" and 81# Maintain calibrated bed scale wts w/ added P200 mattress 2) Lytes daily madhav w/ loose stools, replete as needed 3) Skin integrity: Continue BRIAN VIA GT BID + Vit C 4) Accuchecks for Hypoglycemia 5) Add probiotics for stool C-diff+ . George Woods Jan 23, 2020 12:49
[2020-01-23] MEDS ORDERED: Heparin1,000 units/500ml Premix(Conc:2 units/ml) IV PRN (13:00)
[2020-01-23] MEDS ORDERED: Lidocaine 1% Plain 30 ml INJ PRN (13:00)
[2020-01-23] MEDS: Gabapentin 300 MG/6 ML Soln GT SCH ×2 (13:46→18:18)
[2020-01-23] MEDS ORDERED: metroNIDAZOLE 500mg tab GT SCH (14:00)
--- NOTE | 2020-01-23 19:55 | General Progress Note ---
Assessment/Plan Status: stable, other - Patient is now hypotensive before over 47 she will receive 500 cc of normal saline bolus to be repeated blood pressure remained below 90 further management will be decided following the boluses treatment repeat laboratory tests will be done in a.m. GLENNY BISHOP MD Status Narrative Yesterday patient was seen to have hypotension 83/40 heart 43-48. Decision was done to transfer the patient to the intensive care unit due to insert central line for dopamine drip. Patient was transferred late last night to the intensive care unit. While in the intensive care unit her blood pressure was normal and her heart rate was normal as result for the information will be forwarded monitor into 45 bed B equipment Patient was transferred back to 240 5B out of the ICU blood pressure now is normal heart rate is normal and the dopamine drip was DC'd and blood pressure and heart rate remained normal There will be no need for insertion of central line procedure was canceled Tube will be removed in a.m. [place] will be removed in a.m. and patient will be observed discharge order has been given and facility has been informed patient arrival We are waiting for confirmation from the facility. GLENNY BISHOP MD Assessment/Plan: Glenny Harrison Subjective Constitutional: Reports: no symptoms, other - More alert than previously HEENT: Reports: no symptoms Cardiovascular: Reports: no symptoms, other - Bradycardia resolved Respiratory: Reports: no symptoms Gastrointestinal/Abdominal: Reports: no symptoms Genitourinary: Reports: no symptoms Neurologic/Psychiatric: Reports: other - Remain indifferent to the exam is masked face Endocrine: Reports: no symptoms Hematologic/Lymphatic: Reports: no symptoms Allergies: Coded Allergies: CARBAMAZEPINE (Verified Allergy, Unknown, 12/31/19) LORAZEPAM (Verified Allergy, Unknown, 12/31/19) Objective Last 24 Hour Vital Signs Date Time Temp Pulse Resp B/P (MAP) Pulse Ox O2 Delivery O2 Flow Rate FiO2 01/23/20 18:00 103 31 101/65 (77) 91 01/23/20 18:00 97 25 101/60 (74) 98 01/23/20 17:00 102 37 92/57 (69) 100 01/23/20 16:00 97.8 114 30 94/64 (74) 96 01/23/20 16:00 30 01/23/20 16:00 106 01/23/20 15:10 105 30 30 01/23/20 15:00 117 26 124/70 (88) 100 01/23/20 14:00 119 26 124/70 (88) 100 102 01/23/20 13:00 102 26 139/92 (108) 100 102 01/23/20 12:00 112 01/23/20 12:00 30 01/23/20 12:00 97.1 95 24 117/65 (82) 100 95 01/23/20 11:17 73 20 30 01/23/20 11:00 70 18 120/73 (89) 99 70 01/23/20 10:00 85 18 108/68 (81) 99 85 01/23/20 09:00 83 16 127/77 (94) 99 83 01/23/20 08:00 86 23 114/72 (86) 98 86 01/23/20 08:00 30 01/23/20 07:56 80 01/23/20 07:00 97 18 119/90 (100) 97 01/23/20 06:42 95 19 30 01/23/20 06:00 97.1 85 22 112/63 (79) 98 85 01/23/20 05:00 99 18 103/56 (72) 93 99 01/23/20 04:00 30 01/23/20 04:00 90 01/23/20 04:00 90 19 88/59 (69) 94 90 01/23/20 03:30 87 17 30 01/23/20 03:00 86 19 107/64 (78) 99 86 01/23/20 02:00 97.7 86 18 111/88 (96) 100 86 01/23/20 00:00 97.9 41 18 83/51 (62) 100 01/23/20 00:00 Mechanical Ventilator 01/22/20 23:31 44 01/22/20 23:30 45 14 30 01/22/20 22:28 98.1 40 18 90/55 (67) 100 01/22/20 20:00 98.1 41 18 80/53 (62) 99 01/22/20 20:00 Mechanical Ventilator 01/22/20 20:00 42 01/22/20 20:00 30 Intake and Output 01/22/20 01/23/20 19:00 07:00 Intake Total 823.688 ml 761.844 ml Output Total 450 ml Balance 823.688 ml 311.844 ml Intake Free Water 300 ml 60 ml IV Total 83.688 ml 41.844 ml Tube Feeding 440 ml 660 ml Output Urine Total 450 ml Laboratory Tests 01/23/20 04:20: White Blood Count 11.4H, Red Blood Count 3.95L, Hemoglobin 11.7L, Hematocrit 37.2, Mean Corpuscular Volume 94, Mean Corpuscular Hemoglobin 29.6, Mean Corpuscular Hemoglobin Concent 31.4L, Red Cell Distribution Width 15.2H, Platelet Count 376, Mean Platelet Volume 6.0L, Neutrophils (%) (Auto) 67.1, Lymphocytes (%) (Auto) 17.7L, Monocytes (%) (Auto) 7.0, Eosinophils (%) (Auto) 7.2H, Basophils (%) (Auto) 1.0, Sodium Level 141, Potassium Level 4.4, Chloride Level 107, Carbon Dioxide Level 28, Anion Gap 7, Blood Urea Nitrogen 29H, Creatinine 0.4L, Estimat Glomerular Filtration Rate > 60, Glucose Level 87, Calcium Level 9.7, Total Bilirubin 0.2, Aspartate Amino Transf (AST/SGOT) 28, Alanine Aminotransferase (ALT/SGPT) 33, Alkaline Phosphatase 104, Total Protein 7.9, Albumin 3.0L, Globulin 4.9, Albumin/Globulin Ratio 0.6L, Thyroid Stimulating Hormone (TSH) 0.123L Height (Feet): 5 Height (Inches): 1.00 Weight (Pounds): 80 General Appearance: alert, other EENT: normal ENT inspection Neck: supple Cardiovascular: normal rate, regular rhythm, no gallop/murmur, other - Bradycardia resolved Respiratory/Chest: lungs clear Abdomen: normal bowel sounds, non tender, soft, no organomegaly, no mass Extremities: non-tender Skin: warm/dry Glenny Bishop MD Jan 23, 2020 19:54
[2020-01-23] MEDS: Dyna-Hex 2% Top Sol 2oz TOPIC SCH (20:00)
[2020-01-23] MEDS ORDERED: Dyna-Hex 2% Top Sol 2oz TOPIC SCH (20:00)
[2020-01-23] MEDS ORDERED: OXcarbazepine 150mg tab GT SCH (21:00)
[2020-01-23] MEDS: OXcarbazepine 150mg tab GT SCH (21:50)
[2020-01-23] MEDS: metroNIDAZOLE 500mg tab GT SCH (21:51)
[2020-01-23] MEDS: levETIRAcetam 500mg/5ml Liquid GT SCH (21:51)
--- NOTE | 2020-01-23 22:42 | Cardiology Progress Note ---
Assessment/Plan Assessment/Plan 1. Hypotension, resolved, on only midodrine, off dopamine drip, the nurse claims that previous BP & HR readings were erroneously low. 2. Sinus bradycardia, resolved. 3. Anemia of chronic disease 4. Acute renal failure, resolved. 5. GI bleeding due to gastric ulceration. 6. Dysphagia, s/p PEG placement. 7. VDRF, s/p tracheostomy tube placement. Subjective Subjective She was in and out of ICU for hypotension and bradycardia. Sinus rhythm at rate of 88 with no dopamine gtt. On the vent with FiO2 of 30%. Objective Last 24 Hour Vital Signs Date Time Temp Pulse Resp B/P (MAP) Pulse Ox O2 Delivery O2 Flow Rate FiO2 01/23/20 20:02 88 01/23/20 18:44 79 15 30 01/23/20 18:00 103 31 101/65 (77) 91 01/23/20 18:00 97 25 101/60 (74) 98 01/23/20 17:00 102 37 92/57 (69) 100 01/23/20 16:00 97.8 114 30 94/64 (74) 96 01/23/20 16:00 30 01/23/20 16:00 106 01/23/20 15:10 105 30 30 01/23/20 15:00 117 26 124/70 (88) 100 01/23/20 14:00 119 26 124/70 (88) 100 102 01/23/20 13:00 102 26 139/92 (108) 100 102 01/23/20 12:00 112 01/23/20 12:00 30 01/23/20 12:00 97.1 95 24 117/65 (82) 100 95 01/23/20 11:17 73 20 30 01/23/20 11:00 70 18 120/73 (89) 99 70 01/23/20 10:00 85 18 108/68 (81) 99 85 01/23/20 09:00 83 16 127/77 (94) 99 83 01/23/20 08:00 86 23 114/72 (86) 98 86 01/23/20 08:00 30 01/23/20 07:56 80 01/23/20 07:00 97 18 119/90 (100) 97 01/23/20 06:42 95 19 30 01/23/20 06:00 97.1 85 22 112/63 (79) 98 85 01/23/20 05:00 99 18 103/56 (72) 93 99 01/23/20 04:00 30 01/23/20 04:00 90 01/23/20 04:00 90 19 88/59 (69) 94 90 01/23/20 03:30 87 17 30 01/23/20 03:00 86 19 107/64 (78) 99 86 01/23/20 02:00 97.7 86 18 111/88 (96) 100 86 01/23/20 00:00 97.9 41 18 83/51 (62) 100 01/23/20 00:00 Mechanical Ventilator 01/22/20 23:31 44 01/22/20 23:30 45 14 30 Intake and Output 01/22/20 01/23/20 19:00 07:00 Intake Total 823.688 ml 761.844 ml Output Total 450 ml Balance 823.688 ml 311.844 ml Intake Free Water 300 ml 60 ml IV Total 83.688 ml 41.844 ml Tube Feeding 440 ml 660 ml Output Urine Total 450 ml 2D Echo: LVEF 65%, RVSP 23 mmHg, Grade I LVDD Laboratory Tests Test 01/23/20 04:20 White Blood Count 11.4 K/UL (4.8-10.8) H Red Blood Count 3.95 M/UL (4.20-5.40) L Hemoglobin 11.7 G/DL (12.0-16.0) L Hematocrit 37.2 % (37.0-47.0) Mean Corpuscular Volume 94 FL (80-99) Mean Corpuscular Hemoglobin 29.6 PG (27.0-31.0) Mean Corpuscular Hemoglobin Concent 31.4 G/DL (32.0-36.0) L Red Cell Distribution Width 15.2 % (11.6-14.8) H Platelet Count 376 K/UL (150-450) Mean Platelet Volume 6.0 FL (6.5-10.1) L Neutrophils (%) (Auto) 67.1 % (45.0-75.0) Lymphocytes (%) (Auto) 17.7 % (20.0-45.0) L Monocytes (%) (Auto) 7.0 % (1.0-10.0) Eosinophils (%) (Auto) 7.2 % (0.0-3.0) H Basophils (%) (Auto) 1.0 % (0.0-2.0) Sodium Level 141 MMOL/L (136-145) Potassium Level 4.4 MMOL/L (3.5-5.1) Chloride Level 107 MMOL/L (98-107) Carbon Dioxide Level 28 MMOL/L (21-32) Anion Gap 7 mmol/L (5-15) Blood Urea Nitrogen 29 mg/dL (7-18) H Creatinine 0.4 MG/DL (0.55-1.30) L Estimat Glomerular Filtration Rate > 60 mL/min (>60) Glucose Level 87 MG/DL (74-106) Calcium Level 9.7 MG/DL (8.5-10.1) Total Bilirubin 0.2 MG/DL (0.2-1.0) Aspartate Amino Transf (AST/SGOT) 28 U/L (15-37) Alanine Aminotransferase (ALT/SGPT) 33 U/L (12-78) Alkaline Phosphatase 104 U/L (46-116) Total Protein 7.9 G/DL (6.4-8.2) Albumin 3.0 G/DL (3.4-5.0) L Globulin 4.9 g/dL Albumin/Globulin Ratio 0.6 (1.0-2.7) L Thyroid Stimulating Hormone (TSH) 0.123 uiU/mL (0.358-3.740) Objective HEENT: PERRLA, EOMI, Trach site with moderate secretions. NECK: Cannot assess JVP, no carotid bruit with normal upstroke. LUNGS: Bilateral rhonchi. CARDIAC: Regular rhythm and rate. Normal S1, S2 with no murmurs, gallops or rubs. ABDOMEN: Soft with G-tube. No hepatomegaly. EXTREMITIES: No edema, clubbing or cyanosis. Desmond Gleason MD Jan 23, 2020 22:42
[2020-01-24] VITALS (7 sets, daily range): BP systolic 100–113; BP diastolic 52–65
--- NOTE | 2020-01-24 01:35 | Cardiology Report ---
APPROVED REPORT EKG Measurement Heart [id number] <Conclusion> Normal sinus rhythm Normal ECG
--- NOTE | 2020-01-24 01:46 | Cardiology Report ---
APPROVED REPORT EXAM: Two-dimensional and M-mode echocardiogram with Doppler and color Doppler. INDICATION Seisure disorder M-Mode DIMENSIONS IVSd0.6 (0.7-1.1cm)Left Atrium (MM)2.2 (1.6-4.0cm) LVDd3.8 (3.5-5.6cm)Aortic Root3.1 (2.0-3.7cm) PWd0.6 (0.7-1.1cm)Aortic Cusp Exc.1.7 (1.5-2.0cm) IVSs0.9 cmEPSS0.7 (>1.0cm) LVDs2.4 (2.5-4.0cm) PWs1.2 cm <Conclusion> Normal left ventricular chamber size, systolic function and wall motion. Left ventricular ejection fraction estimated to be 60-65 %. All other cardiac chamber sizes are within normal limits. Mild focal aortic valve sclerosis with adequate cusp excursion. Mildly thickened mitral valve leaflets with normal excursion. Mild mitral annulus and aortic root calcification. Normal pulmonic valve structure. Normal tricuspid valve structure. IVC at normal size and collapsing with respiration. A color flow and spectral Doppler study was performed and revealed: No aortic regurgitation. Trace mitral regurgitation. Mitral diastolic velocities suggest mild diastolic dysfunction (Grade I). Trace tricuspid regurgitation. Tricuspid systolic velocities suggests peak right ventricular systolic pressure of 23 mmHg. No pulmonic regurgitation present.
--- NOTE | 2020-01-24 01:46 | Cardiology Report ---
APPROVED REPORT EXAM: Two-dimensional and M-mode echocardiogram with Doppler and color Doppler. INDICATION Shortness of breath M-Mode DIMENSIONS IVSd0.4 (0.7-1.1cm)Left Atrium (MM)2.7 (1.6-4.0cm) LVDd4.5 (3.5-5.6cm)Aortic Root2.7 (2.0-3.7cm) PWd0.4 (0.7-1.1cm)Aortic Cusp Exc.2.0 (1.5-2.0cm) IVSs0.9 cmEPSS0.5 (>1.0cm) LVDs2.9 (2.5-4.0cm) PWs0.9 cm <Conclusion> Normal left ventricular chamber size, systolic function and wall motion. Left ventricular ejection fraction estimated to be 60 %. All other cardiac chamber sizes are within normal limits. Mild focal aortic valve sclerosis with adequate cusp excursion. Mildly thickened mitral valve leaflets with normal excursion. Mild mitral annulus and aortic root calcification. Normal pulmonic valve structure. Normal tricuspid valve structure. IVC at normal size and collapsing with respiration. A color flow and spectral Doppler study was performed and revealed: No aortic regurgitation. Trace mitral regurgitation. Mitral diastolic velocities suggest normal diastolic function. Mild tricuspid regurgitation. Tricuspid systolic velocities suggests peak right ventricular systolic pressure of 28 mmHg. No pulmonic regurgitation present.
[2020-01-24] MEDS: metroNIDAZOLE 500mg tab GT SCH ×3 (05:57→21:09)
[2020-01-24] MEDS ORDERED: Levothyroxine 125mcg tab GT SCH (06:30)
--- NOTE | 2020-01-24 07:11 | Hematology/Onc Progress Note ---
Assessment/Plan Assessment/Plan # Thrombocytopenia med related v labs error --> plt trend 167-->61-->227 --> meds have been reviewed --> no hep or lovenox (if less than 50k plt) # Anemia rule out underlying gi bleed --> Dr. Carrillo has been consulted-->endosco gastric ulceration --> trend hgb 7-->7.4-->7.9-->8.1->9.6-->8.5->9.1-->10-->11-->10.3-->10.4-->11 --> anemia panel ordered-->reviewed --> prn transfusion --> protonix started # Leukocytosis is likely related to pna on imaging --> abx has been started --> if wbc worsens, consider abx vanc/zosyn--> ceftriaxone-->vanc->fluc/flagyl/ vanc-->flagyl/fidoxomicin --> smear is noted --> wbc 25-->15-->14-->16->7.6-->12-->20->13->11 --> pressors prn # Sepsis --> on abx for pna --> pressors as needed # Pneumonia --> pulm, Dr. 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 consultant care, will follow Subjective HEENT: Denies: no symptoms, eye pain, blurred vision, tearing, double vision, ear pain, ear discharge, nose pain, nose congestion, throat pain, throat swelling, mouth pain, mouth swelling, other Cardiovascular: Denies: no symptoms, chest pain, edema, irregular heart rate, lightheadedness, palpitations, syncope, other Respiratory: Denies: no symptoms, cough, shortness of breath, SOB with excertion, SOB at rest, sputum, wheezing, other Gastrointestinal/Abdominal: Denies: no symptoms, abdomen distended, abdominal pain, black stools, tarry stools, blood in stool, constipated, diarrhea, difficulty swallowing, nausea, poor appetite, poor fluid intake, rectal bleeding , vomiting, other Genitourinary: Denies: no symptoms, burning, discharge, frequency, flank pain, hematuria, incontinence, pain, urgency, other Neurologic/Psychiatric: Denies: no symptoms, anxiety, depressed, emotional problems, headache, numbness, paresthesia, pre-existing deficit, seizure, tingling, tremors, weakness, other Endocrine: Denies: no symptoms, excessive sweating, flushing, intolerance to cold, intolerance to heat, increased hunger, increased thirst, increased urine, unexplained weight gain, unexplained weight loss, other Hematologic/Lymphatic: Denies: no symptoms, anemia, easy bleeding, easy bruising, adenopathy, other Allergies: Coded Allergies: CARBAMAZEPINE (Verified Allergy, Unknown, 12/31/19) LORAZEPAM (Verified Allergy, Unknown, 12/31/19) Subjective 01/01 altered, trach, no bleedin wbc improved on abx, seen by gi 01/02 egd study noted, also with plts 61k, have vitaly Armendariz Rn, will recheck cbc 01/03 remains agitated, vitaly rn, no bleeding, cbc noted as well as id recs 01/04 on vent, with melena overnight, no bleeding, vitaly rn, labs reviewed 01/06 on vent, remains agitated, no bleeding, vitaly rn, smear is noted 01/07 on vent, restless, asymptomatic, noncooperative 01/[address] oJhn obtained, reviewed, meds adjusted, eeg pending 01/09 labs noted, no bleeding, ativan has been discontinued, meds reviewed 01/10 trach to vent, agitated, with wrist restraints, no major changes, no bleeding 01/11 labs are reviewed, on trach to vent, no bleeding, agitated overnight, no complaints 01/13 labs noted, no bleeding, is on vent/trach, no bleeding, vitaly rn, labs are noted 01/14 labs are noted, no bleeding, remains on v/t, remains agitated, no bleeding 01/15 is c.diff positive, wbc higher at 21k, labs noted, on abx, reviewed gi, id recs 01/16 remains on vent, wbc is improved, in sr, as abx per id 01/17 recieved dopamine, tube feeds, on soft restraints, no bleeding, vitaly longoria 01/18 labs are noted, no bleeding, vitaly rn, no major changes 01/20 on dopamine gtt, with restraints, no major changes, labs noted 01/21 labs reviewed, no bleeding, vitaly rn, no major changes 01/22 transferred to icu for higher loc, dopamine on hold as bp is good, have increased Synthroid 01/23 labs are pending, meds noted, no bleeding, dopamine gtt ongoing, cbc noted Objective Objective Current Medications Medications (Trade) Dose Ordered Sig/Villa Route PRN Reason Start Time Stop Time Status Last Admin Dose Admin Acetaminophen (Tylenol) 650 mg Q6H PRN GT Temp >100.5 01/23/20 19:41 01/31/20 19:40 Ascorbic Acid (Vitamin C) 500 mg DAILY GT 01/24/20 09:00 01/31/20 08:59 Chlorhexidine Gluconate (Isabel-Hex 2%) 1 applic DAILY@1999 TOPIC 01/23/20 20:00 04/22/20 19:59 Famotidine (Pepcid) 20 mg BID GT 01/24/20 09:00 04/22/20 09:59 Fidaxomicin (Dificid) 200 mg EVERY 12 HOURS ORAL 01/23/20 21:00 01/26/20 09:01 01/23/20 21:52 Gabapentin (Neurontin) 900 mg TID GT 01/24/20 09:00 02/19/20 17:59 Haloperidol Lactate (Haldol) 5 mg Q6H PRN IM Agitation 01/23/20 19:41 02/15/20 19:40 Levetiracetam (Keppra) 1,500 mg Q12HR GT 01/23/20 21:00 02/07/20 08:59 01/23/20 21:51 Levothyroxine Sodium (Synthroid) 50 mcg ACBREAKFAST GT 01/24/20 06:30 02/10/20 06:29 01/24/20 05:57 Metronidazole (Flagyl) 500 mg Q8HR GT 01/23/20 22:00 01/26/20 23:59 01/24/20 05:57 Midodrine (Pro-Amatine) 5 mg TID GT 01/24/20 09:00 04/21/20 08:59 Multivitamins (Multivitamins W/ Minerals 15ml Liquid) 15 ml DAILY GT 01/24/20 09:00 10/9/20 08:59 Ondansetron HCl (Zofran) 4 mg Q6H PRN GT Nausea & Vomiting 01/23/20 19:42 01/30/20 19:41 Oxcarbazepine (TrileptaL) 300 mg BEDTIME GT 01/23/20 21:00 02/07/20 20:59 01/23/20 21:50 Potassium Chloride (K-Dur) 20 meq TWICE A DAY GT 01/24/20 09:00 04/10/20 08:59 Thiamine HCl (Vitamin B1) 100 mg DAILY GT 01/24/20 09:00 01/31/20 08:59 Last 24 Hour Vital Signs Date Time Temp Pulse Resp B/P (MAP) Pulse Ox O2 Delivery O2 Flow Rate FiO2 01/24/20 04:00 Mechanical Ventilator 01/24/20 04:00 97.9 77 18 113/62 (79) 98 01/24/20 04:00 30 01/24/20 03:26 71 01/24/20 03:02 78 21 30 01/24/20 00:00 97.5 68 23 105/52 (69) 98 01/23/20 23:03 69 18 30 01/23/20 20:02 88 01/23/20 20:00 30 01/23/20 20:00 97.7 68 18 109/57 (74) 100 01/23/20 19:00 97.7 71 27 101/55 (70) 91 01/23/20 18:44 79 15 30 01/23/20 18:00 103 31 101/65 (77) 91 01/23/20 18:00 97 25 101/60 (74) 98 01/23/20 17:00 102 37 92/57 (69) 100 01/23/20 16:00 97.8 114 30 94/64 (74) 96 01/23/20 16:00 30 01/23/20 16:00 106 01/23/20 15:10 105 30 30 01/23/20 15:00 117 26 124/70 (88) 100 01/23/20 14:00 119 26 124/70 (88) 100 102 01/23/20 13:00 102 26 139/92 (108) 100 102 01/23/20 12:00 112 01/23/20 12:00 30 01/23/20 12:00 97.1 95 24 117/65 (82) 100 95 01/23/20 11:17 73 20 30 01/23/20 11:00 70 18 120/73 (89) 99 70 01/23/20 10:00 85 18 108/68 (81) 99 85 01/23/20 09:00 83 16 127/77 (94) 99 83 01/23/20 08:00 86 23 114/72 (86) 98 86 01/23/20 08:00 30 01/23/20 07:56 80 01/23/20 07:00 97 18 119/90 (100) 97 01/23/20 06:42 95 19 30 01/23/20 06:00 97.1 85 22 112/63 (79) 98 85 01/23/20 05:00 99 18 103/56 (72) 93 99 01/23/20 04:00 30 01/23/20 04:00 90 01/23/20 04:00 90 19 88/59 (69) 94 90 01/23/20 03:30 87 17 30 01/23/20 03:00 86 19 107/64 (78) 99 86 01/23/20 02:00 97.7 86 18 111/88 (96) 100 86 01/23/20 00:00 97.9 41 18 83/51 (62) 100 01/23/20 00:00 Mechanical Ventilator 01/23/20 00:00 Mechanical Ventilator 01/22/20 23:31 44 01/22/20 23:30 45 14 30 01/22/20 22:28 98.1 40 18 90/55 (67) 100 01/22/20 20:00 98.1 41 18 80/53 (62) 99 01/22/20 20:00 Mechanical Ventilator 01/22/20 20:00 42 01/22/20 20:00 30 01/22/20 19:26 41 14 30 01/22/20 18:10 91/51 01/22/20 17:10 46 13 30 01/22/20 16:00 Mechanical Ventilator 01/22/20 16:00 97.7 65 18 91/51 (64) 99 01/22/20 16:00 52 01/22/20 16:00 30 01/22/20 15:10 52 17 30 01/22/20 15:00 97/57 01/22/20 13:10 52 13 30 01/22/20 12:00 Mechanical Ventilator 01/22/20 12:00 59 01/22/20 12:00 98.9 52 19 90/44 (59) 100 01/22/20 12:00 30 01/22/20 11:00 90/57 01/22/20 10:40 59 15 30 01/22/20 09:10 59 17 30 01/22/20 09:00 95 01/22/20 08:00 Mechanical Ventilator 01/22/20 08:00 98.1 62 15 112/50 (70) 100 01/22/20 08:00 57 01/22/20 08:00 121/65 01/22/20 08:00 30 Intake and Output 01/23/20 01/24/20 19:00 07:00 Intake Total 955 ml 905 ml Output Total 620 ml 310 ml Balance 335 ml 595 ml Intake Free Water 350 ml 300 ml Tube Feeding 605 ml 605 ml Output Urine Total 320 ml 260 ml Stool Total 300 ml 50 ml Labs Test 01/22/20 03:40 01/23/20 04:20 Sodium Level 141 MMOL/L (136-145) 141 MMOL/L (136-145) Potassium Level 4.0 MMOL/L (3.5-5.1) 4.4 MMOL/L (3.5-5.1) Chloride Level 106 MMOL/L (98-107) 107 MMOL/L (98-107) Carbon Dioxide Level 29 MMOL/L (21-32) 28 MMOL/L (21-32) Anion Gap 6 mmol/L (5-15) 7 mmol/L (5-15) Blood Urea Nitrogen 29 mg/dL (7-18) 29 mg/dL (7-18) Creatinine 0.5 MG/DL (0.55-1.30) 0.4 MG/DL (0.55-1.30) Estimat Glomerular Filtration Rate > 60 mL/min (>60) > 60 mL/min (>60) Glucose Level 83 MG/DL (74-106) 87 MG/DL (74-106) Calcium Level 10.1 MG/DL (8.5-10.1) 9.7 MG/DL (8.5-10.1) White Blood Count 11.4 K/UL (4.8-10.8) Red Blood Count 3.95 M/UL (4.20-5.40) Hemoglobin 11.7 G/DL (12.0-16.0) Hematocrit 37.2 % (37.0-47.0) Mean Corpuscular Volume 94 FL (80-99) Mean Corpuscular Hemoglobin 29.6 PG (27.0-31.0) Mean Corpuscular Hemoglobin Concent 31.4 G/DL (32.0-36.0) Red Cell Distribution Width 15.2 % (11.6-14.8) Platelet Count 376 K/UL (150-450) Mean Platelet Volume 6.0 FL (6.5-10.1) Neutrophils (%) (Auto) 67.1 % (45.0-75.0) Lymphocytes (%) (Auto) 17.7 % (20.0-45.0) Monocytes (%) (Auto) 7.0 % (1.0-10.0) Eosinophils (%) (Auto) 7.2 % (0.0-3.0) Basophils (%) (Auto) 1.0 % (0.0-2.0) Total Bilirubin 0.2 MG/DL (0.2-1.0) Aspartate Amino Transf (AST/SGOT) 28 U/L (15-37) Alanine Aminotransferase (ALT/SGPT) 33 U/L (12-78) Alkaline Phosphatase 104 U/L (46-116) Total Protein 7.9 G/DL (6.4-8.2) Albumin 3.0 G/DL (3.4-5.0) Globulin 4.9 g/dL Albumin/Globulin Ratio 0.6 (1.0-2.7) Thyroid Stimulating Hormone (TSH) 0.123 uiU/mL (0.358-3.740) Height (Feet): 5 Height (Inches): 1.00 Weight (Pounds): 80 Objective Vital Signs General Appearance: ++ cachectic, chronically ill HEENT: normocephalic, atraumatic ++ trach Resp: other -. vent ++ Cardiovascular: regular rate, rhythm, no edema Gastrointestinal: gtube in place, without erythema Rectal: other - Hemoccult positive [place]: back normal, gait/station normal, non-tender Lymphatic: no adenopathy Kleynberg,Baltazar L. MD Jan 24, 2020 07:11
--- NOTE | 2020-01-24 08:59 | General Progress Note ---
Assessment/Plan Problem List: (1) G tube feedings ICD Codes: Z93.1 - Gastrostomy status SNOMED: 782030252, 158348936, 224636814 (2) GI bleed ICD Codes: K92.2 - Gastrointestinal hemorrhage, unspecified SNOMED: 69024797 (3) Sepsis ICD Codes: A41.9 - Sepsis, unspecified organism SNOMED: 51765536 (4) Pneumonia ICD Codes: J18.9 - Pneumonia, unspecified organism SNOMED: 396145355 Status: stable, other - Patient is now hypotensive before over 46 she will receive 500 cc of normal saline bolus to be repeated blood pressure remained below 90 further management will be decided following the boluses treatment repeat laboratory tests will be done in a.m. GEM MCKAY MD Assessment/Plan: s/p EGD gastric ulcer no recurrent bleed G TF monitor H&H C. Diff positive off ppi po vanco pepcid will fu Subjective ROS Limited/Unobtainable: No Allergies: Coded Allergies: CARBAMAZEPINE (Verified Allergy, Unknown, 12/31/19) LORAZEPAM (Verified Allergy, Unknown, 12/31/19) Objective Last 24 Hour Vital Signs Date Time Temp Pulse Resp B/P (MAP) Pulse Ox O2 Delivery O2 Flow Rate FiO2 01/24/20 07:30 85 21 30 01/24/20 04:00 Mechanical Ventilator 01/24/20 04:00 97.9 77 18 113/62 (79) 98 01/24/20 04:00 30 01/24/20 03:26 71 01/24/20 03:02 78 21 30 01/24/20 00:00 97.5 68 23 105/52 (69) 98 01/23/20 23:03 69 18 30 01/23/20 20:02 88 01/23/20 20:00 30 01/23/20 20:00 97.7 68 18 109/57 (74) 100 01/23/20 19:00 97.7 71 27 101/55 (70) 91 01/23/20 18:44 79 15 30 01/23/20 18:00 103 31 101/65 (77) 91 01/23/20 18:00 97 25 101/60 (74) 98 01/23/20 17:00 102 37 92/57 (69) 100 01/23/20 16:00 97.8 114 30 94/64 (74) 96 01/23/20 16:00 30 01/23/20 16:00 106 01/23/20 15:10 105 30 30 01/23/20 15:00 117 26 124/70 (88) 100 01/23/20 14:00 119 26 124/70 (88) 100 102 01/23/20 13:00 102 26 139/92 (108) 100 102 01/23/20 12:00 112 01/23/20 12:00 30 01/23/20 12:00 97.1 95 24 117/65 (82) 100 95 01/23/20 11:17 73 20 30 01/23/20 11:00 70 18 120/73 (89) 99 70 01/23/20 10:00 85 18 108/68 (81) 99 85 01/23/20 09:00 83 16 127/77 (94) 99 83 Intake and Output 01/23/20 01/24/20 19:00 07:00 Intake Total 955 ml 905 ml Output Total 620 ml 310 ml Balance 335 ml 595 ml Intake Free Water 350 ml 300 ml Tube Feeding 605 ml 605 ml Output Urine Total 320 ml 260 ml Stool Total 300 ml 50 ml Height (Feet): 5 Height (Inches): 1.00 Weight (Pounds): 71 General Appearance: no apparent distress EENT: normal ENT inspection Neck: supple Cardiovascular: normal rate Respiratory/Chest: decreased breath sounds Abdomen: normal bowel sounds, non tender, soft Extremities: non-tender Satish Carrillo MD Jan 24, 2020 08:59
[2020-01-24] MEDS ORDERED: Ascorbic Acid 500mg tab GT SCH (09:00)
[2020-01-24] MEDS ORDERED: Thiamine 100mg tab GT SCH (09:00)
[2020-01-24] MEDS ORDERED: Multivitamins W/Minerals 15 ML UDC GT SCH (09:00)
[2020-01-24] MEDS: Gabapentin 300 MG/6 ML Soln GT SCH ×3 (09:42→18:39)
[2020-01-24] MEDS: levETIRAcetam 500mg/5ml Liquid GT SCH ×2 (09:42→20:46)
[2020-01-24] MEDS: Ascorbic Acid 500mg tab GT SCH (09:43)
[2020-01-24] MEDS: Thiamine 100mg tab GT SCH (09:44)
[2020-01-24] MEDS: Multivitamins W/Minerals 15 ML UDC GT SCH (09:44)
--- NOTE | 2020-01-24 11:41 | Infectious Diseases Prog Note ---
Assessment/Plan 39yo F with: Sepsis Fever to 101.5>>Low grade ; SP Possible pna on CXR Leukocytosis; recurrent; increased- now improvign -01/13 CXR: no acute disease -01/12 u/a wbc tnct, nit neg, latrell +3; ucx >100k C. tropicalis Bcx NTD Cdiff colitis -Cdif toxin + -01/13 KUB: no acute findings Recurrent GIB 01/06 u/aneg 12/30 BCx 1/2 +CONS, likely contaminant 12/30 UA neg, COVID rapid Ag neg 12/30 CXR 1. Density overlying the bilateral lung apices. May represent pleural thickening, multifocal airspace opacities, versus summation artifact. 01/01 BCx Neg 01/02 BCx Neg Seizure episode -01/10 CT head: Third and lateral ventriculomegaly. Associated enlargement of the extra axial CSF spaces indicates that this is probably due to central volume loss, but the possibility of hydrocephalus should also be considered. At the degree of volume loss is considerably out of proportion to patient's age. Periventricular deep white matter low-attenuation. Probably on the basis of microvascular ischemic change but given patient's age the possibility of demyelinating disease should be considered as well. Negative for acute intracranial bleed or mass effect Possible Scabies SP tx w/ Permethrin and Ivermectin 12/31 R/o DVT: None on US 12/30 MRSA nares neg Recurrent GIBs, FOBT+ Hepatic encephalopathy, chronic S/p Trach/PEG Resides at SNF Plan: PO Dificid #01/28 as failing PO Vancomycin Noted Flagyl 01/2801/19/20 SP fluconazole #5 01/15 SP PO Vancomycin #8 01/08 SP Ceftriaxone #7 01/02 SP vanco #2, Zosyn #2 SP 2nd dose of ivermectin (01/08) Monitor CBC/CMP Monitor resp status Monitor temp and hemodynamics contact isolation f/u repeat cultures ICU care D/w RN Thank you for this consult. [facility] will continue to follow. Subjective Allergies: Coded Allergies: CARBAMAZEPINE (Verified Allergy, Unknown, 12/31/19) LORAZEPAM (Verified Allergy, Unknown, 12/31/19) afebrile transferred out of ICU to SDU mild leukocytosis ongoing diarrhea Objective Last 24 Hour Vital Signs Date Time Temp Pulse Resp B/P (MAP) Pulse Ox O2 Delivery O2 Flow Rate FiO2 01/24/20 08:00 78 01/24/20 08:00 Mechanical Ventilator 01/24/20 08:00 97.3 76 22 100/58 (72) 95 01/24/20 08:00 30 01/24/20 07:30 85 21 30 01/24/20 04:00 Mechanical Ventilator 01/24/20 04:00 97.9 77 18 113/62 (79) 98 01/24/20 04:00 30 01/24/20 03:26 71 01/24/20 03:02 78 21 30 01/24/20 00:00 97.5 68 23 105/52 (69) 98 01/23/20 23:03 69 18 30 01/23/20 20:02 88 01/23/20 20:00 30 01/23/20 20:00 97.7 68 18 109/57 (74) 100 01/23/20 19:00 97.7 71 27 101/55 (70) 91 01/23/20 18:44 79 15 30 01/23/20 18:00 103 31 101/65 (77) 91 01/23/20 18:00 97 25 101/60 (74) 98 01/23/20 17:00 102 37 92/57 (69) 100 01/23/20 16:00 97.8 114 30 94/64 (74) 96 01/23/20 16:00 30 01/23/20 16:00 106 01/23/20 15:10 105 30 30 01/23/20 15:00 117 26 124/70 (88) 100 01/23/20 14:00 119 26 124/70 (88) 100 102 01/23/20 13:00 102 26 139/92 (108) 100 102 01/23/20 12:00 112 01/23/20 12:00 30 01/23/20 12:00 97.1 95 24 117/65 (82) 100 95 Height (Feet): 5 Height (Inches): 1.00 Weight (Pounds): 71 General Appearance: no apparent distress Neck: supple Cardiovascular: normal rate Respiratory/Chest: decreased breath sounds Abdomen: hypoactive bowel sounds Extremities: non-tender Current Medications Medications (Trade) Dose Ordered Sig/Villa Route PRN Reason Start Time Stop Time Status Last Admin Dose Admin Acetaminophen (Tylenol) 650 mg Q6H PRN GT Temp >100.5 01/23/20 19:41 01/31/20 19:40 Ascorbic Acid (Vitamin C) 500 mg DAILY GT 01/24/20 09:00 01/31/20 08:59 01/24/20 09:43 Chlorhexidine Gluconate (Isabel-Hex 2%) 1 applic DAILY@2000 TOPIC 01/23/20 20:00 04/22/20 19:59 Famotidine (Pepcid) 20 mg BID GT 01/24/20 09:00 04/22/20 09:59 01/24/20 09:44 Fidaxomicin (Dificid) 200 mg EVERY 12 HOURS ORAL 01/23/20 21:00 01/26/20 09:01 01/24/20 10:49 Gabapentin (Neurontin) 900 mg TID GT 01/24/20 09:00 02/19/20 17:59 01/24/20 09:42 Haloperidol Lactate (Haldol) 5 mg Q6H PRN IM Agitation 01/23/20 19:41 02/15/20 19:40 Levetiracetam (Keppra) 1,500 mg Q12HR GT 01/23/20 21:00 02/07/20 08:59 01/24/20 09:42 Levothyroxine Sodium (Synthroid) 50 mcg ACBREAKFAST GT 01/24/20 06:30 02/10/20 06:29 01/24/20 05:57 Metronidazole (Flagyl) 500 mg Q8HR GT 01/23/20 22:00 01/26/20 23:59 01/24/20 05:57 Midodrine (Pro-Amatine) 5 mg TID GT 01/24/20 09:00 04/21/20 08:59 01/24/20 09:43 Multivitamins (Multivitamins W/ Minerals 15ml Liquid) 15 ml DAILY GT 01/24/20 09:00 02/23/20 08:59 01/24/20 09:44 Ondansetron HCl (Zofran) 4 mg Q6H PRN GT Nausea & Vomiting 01/23/20 19:42 01/30/20 19:41 Oxcarbazepine (TrileptaL) 300 mg BEDTIME GT 01/23/20 21:00 02/07/20 20:59 9/8/20 21:50 Potassium Chloride (K-Dur) 20 meq TWICE A DAY GT 01/24/20 09:00 04/10/20 08:59 01/24/20 09:44 Thiamine HCl (Vitamin B1) 100 mg DAILY GT 01/24/20 09:00 01/31/20 08:59 01/24/20 09:44 Char Morel M.D. Jan 24, 2020 11:41
--- NOTE | 2020-01-24 13:05 | Nephrology Progress Note ---
Assessment/Plan Problem List: (1) RICHARD (acute kidney injury) (2) Dehydration (3) Anemia (4) GI bleed (5) Malnutrition (6) Seizure disorder (7) Electrolyte imbalance Assessment Renal failure, in the form of prerenal azotemia, most likely secondary to GI bleed GI bleed, leading to severe anemia Sepsis, pneumonia Chronic tracheostomy, ventilator dependent History of CVA History of seizure disorder History of psychiatric disorder Severe malnutrition Electrolyte abnormalities Plan January 23: Back in [facility]. Stable from renal standpoint of view. Continue per consultants. January 22: Patient in ICU now. Vital signs and heart rate and blood pressure appears to be stable. Patient had an episode of bradycardia but it was resolved. TSH level today is very low will cut down on Synthroid dose. January 21: Today's labs are reviewed. Stable renal parameters. Continue per consultants. January 20: Labs reviewed. Renal parameters stable. January 19: Labs reviewed. Stable from renal standpoint. January 18: No labs done today. Continue per consultants. Medications reviewed. January 17: Late note entry due to system problem at the [facility] today.Chemistry panel reviewed. Stable from renal standpoint of view. Continue per current management. January 16: No can panel today. Check lab tomorrow. Remains stable from renal standpoint of view. January 15: Lab reviewed. Renal parameters stable. January 14: Lab reviewed. Renal parameters stable. January 13: Labs reviewed. Stable from renal standpoint of view. January 12: Labs reviewed. Stable from renal standpoint of view January 11: No labs drawn today stable from renal standpoint of view January 10: Labs reviewed. Potassium supplement given. Continue per consultants. January 09: Lab reviewed. Potassium supplement given. IV fluid discontinued. January 08: Lab reviewed. Renal parameters stable. Continue per consultants. January 07: Lab reviewed. Renal parameters stable. Continue per consultants. January 06: Lab reviewed. Stable from renal standpoint of view. January 05: Labs reviewed. Stable from renal standpoint of view. Continue per consultants. January 04: No labs drawn today. Will check labs tomorrow. Continue per consultants. January 03: Lab reviewed. Renal parameters stable. IV fluid discontinued. High LFTs declining. Continue same. January 02: Lab reviewed. Renal parameters stable. Continue per PMD and consultants. LFTs remain elevated. Continue to monitor. Continue slow hydration Discontinue blood pressure medications as her blood pressure is low Discontinue diuretics Monitor renal parameters Transfusion as needed GI evaluation Correct electrolyte abnormalities Check B12 level, folate, and thyroid function tests: Results noted Subjective ROS Limited/Unobtainable: Yes Objective Objective Last 24 Hour Vital Signs Date Time Temp Pulse Resp B/P (MAP) Pulse Ox O2 Delivery O2 Flow Rate FiO2 01/24/20 12:08 62 18 30 01/24/20 12:07 100 01/24/20 08:00 78 01/24/20 08:00 Mechanical Ventilator 01/24/20 08:00 97.3 76 22 100/58 (72) 95 01/24/20 08:00 30 01/24/20 07:30 85 21 30 01/24/20 04:00 Mechanical Ventilator 01/24/20 04:00 97.9 77 18 113/62 (79) 98 01/24/20 04:00 30 01/24/20 03:26 71 01/24/20 03:02 78 21 30 01/24/20 00:00 97.5 68 23 105/52 (69) 98 01/23/20 23:03 69 18 30 01/23/20 20:02 88 01/23/20 20:00 30 01/23/20 20:00 97.7 68 18 109/57 (74) 100 01/23/20 19:00 97.7 71 27 101/55 (70) 91 01/23/20 18:44 79 15 30 01/23/20 18:00 103 31 101/65 (77) 91 01/23/20 18:00 97 25 101/60 (74) 98 01/23/20 17:00 102 37 92/57 (69) 100 01/23/20 16:00 97.8 114 30 94/64 (74) 96 01/23/20 16:00 30 01/23/20 16:00 106 01/23/20 15:10 105 30 30 01/23/20 15:00 117 26 124/70 (88) 100 01/23/20 14:00 119 26 124/70 (88) 100 102 Intake and Output 01/23/20 01/24/20 19:00 07:00 Intake Total 955 ml 905 ml Output Total 620 ml 310 ml Balance 335 ml 595 ml Intake Free Water 350 ml 300 ml Tube Feeding 605 ml 605 ml Output Urine Total 320 ml 260 ml Stool Total 300 ml 50 ml No blood work done today Height (Feet): 5 Height (Inches): 1.00 Weight (Pounds): 71 General Appearance: no apparent distress EENT: other - Trach to vent Neck: other Cardiovascular: normal rate Respiratory/Chest: decreased breath sounds Abdomen: soft Objective No change Chivo Holloway MD Jan 24, 2020 13:04
--- NOTE | 2020-01-24 15:05 | Surgery Progress Note ---
Surgery Progress Note Subjective Symptoms: improved, tolerating diet, passing flatus Additional Comments picc line Objective Last 24 Hour Vital Signs Date Time Temp Pulse Resp B/P (MAP) Pulse Ox O2 Delivery O2 Flow Rate FiO2 01/24/20 12:08 62 18 30 01/24/20 12:07 100 01/24/20 12:00 98.1 76 20 100/54 (69) 100 01/24/20 11:32 72 01/24/20 08:00 78 01/24/20 08:00 Mechanical Ventilator 01/24/20 08:00 97.3 76 22 100/58 (72) 95 01/24/20 08:00 30 01/24/20 07:41 78 01/24/20 07:30 85 21 30 01/24/20 04:00 Mechanical Ventilator 01/24/20 04:00 97.9 77 18 113/62 (79) 98 01/24/20 04:00 30 01/24/20 03:26 71 01/24/20 03:02 78 21 30 01/24/20 00:00 97.5 68 23 105/52 (69) 98 01/23/20 23:03 69 18 30 01/23/20 20:02 88 01/23/20 20:00 30 01/23/20 20:00 97.7 68 18 109/57 (74) 100 01/23/20 19:00 97.7 71 27 101/55 (70) 91 01/23/20 18:44 79 15 30 01/23/20 18:00 103 31 101/65 (77) 91 01/23/20 18:00 97 25 101/60 (74) 98 01/23/20 17:00 102 37 92/57 (69) 100 01/23/20 16:00 97.8 114 30 94/64 (74) 96 01/23/20 16:00 30 01/23/20 16:00 106 01/23/20 15:10 105 30 30 I&O Intake and Output 01/23/20 01/24/20 19:00 07:00 Intake Total 955 ml 905 ml Output Total 620 ml 310 ml Balance 335 ml 595 ml Intake Free Water 350 ml 300 ml Tube Feeding 605 ml 605 ml Output Urine Total 320 ml 260 ml Stool Total 300 ml 50 ml Dressing: other Wound: other Cardiovascular: RSR Respiratory: decreased breath sounds Abdomen: soft, non-tender, present bowel sounds Extremities: no tenderness, no cyanosis, pulses, other Laboratory Tests Test 01/24/20 13:49 POC Whole Blood Glucose 72 MG/DL (74-106) L Plan Problems: (1) Pneumonia (2) Sepsis Assessment & Plan: leukocytosis anemia lactic acidosis agree with GI recommend EGD planned for 12/31 hold feeding for now trend h/h monitor for bleeding no acute hemorrhage will be available in event needs exploration for hemostasis prbc as per heme thank you will follow with recs cont abx worsening wbc wbc trending down comfortable appearing no n/v hypotensive in ICU again PICC ordered Pt presented on admission in emaciated state. Pt has tracheostomy and GT. NO skin concerns noted to skin under collar of trach. NO erythema or evidence of skin erosion at GT site. Pt noted to have scaly pimple-like rash with webbing noted to R and L axillae, undersides of both breasts, Bilat groin and lower back. Tracking and webbing noted to hands and feet. Pt restless and scratching at skin. Non-Blanching erythema without induration or fluctuance noted to R and L hips and trochanteric areas.Non-blanching erythema noted along spine. Non-Blanching erythema without induration noted to Sacrum. Non-Blanching erythema noted to R and L Malleoli and both heels. Tx.Plan: Please apply Cavilon Skin Barrier to each bony Prominences at risks for Skin Breakdown. Cover each area with Optifoam drsgs. Change every 7 days and prn. Apply Moisture Barrier Paste to Sacrum. Cover with Optifoam drsg. Change every 3 days and prn. Reposition at least every 2hours or as tolerated. Off-load heels with pillow. APM/EMELI Mattress overlay. improving cont current care plan There is marked enlargement of the third and lateral ventricles and extra axial CSF spaces, in particular the former. There is considerable periventricular deep white matter low-attenuation. Otherwise normal mobley-white differentiation. No acute hemorrhage or edema. No mass effect nor midline shift. Visualized orbits and sinuses are unremarkable. The calvarium is intact Impression: Third and lateral ventriculomegaly. Associated enlargement of the extra axial CSF spaces indicates that this is probably due to central volume loss, but the possibility of hydrocephalus should also be considered. At the degree of volume loss is considerably out of proportion to patient's age. Correlate with clinical history Periventricular deep white matter low-attenuation. Probably on the basis of microvascular ischemic change but given patient's age the possibility of demyelinating disease should be considered as well. Negative for acute intracranial bleed or mass effect (3) GI bleed (4) G tube feedings Assessment & Plan: DAILY ESTIMATED NEEDS: Needs based on Underweight, critical care 37.3kg 30-40 kcals/kg 4044-2636 total kcals 1.25-2 g protein/kg 47-75 g total protein 25-35 mL/kg 933-1306 total fluid mLs NUTRITION DIAGNOSIS: Increased kcal and pro needs r/t underweight status as evidenced by BMI 14.1, pt is 68% of ideal body weight w/ generalized severe wasting, trach and peg dep. CURRENT TF:Vital AF 1.2 @55 x20 hrs ENTERAL NUTRITION RECOMMENDATIONS: Vital AF 1.2 @ 55ml/hr x20 hrs to provide 1100ml 1320kcal 83g prot, 892ml free water - Rec to continue elemental TF formula while stool C-diff positive, +LBM - HOLD 1HR BEFORE AND AFTER SYNTHROID MEDS - Flush per MD. HOB over 30 degrees ADDITIONAL RECOMMENDATIONS: 1) Per SNF: 5'4" and 81# Maintain calibrated bed scale wts w/ added P200 mattress 2) Lytes daily madhav w/ loose stools, replete as needed 3) Skin integrity: Continue BRIAN VIA GT BID + Vit C 4) Accuchecks for Hypoglycemia 5) Add probiotics for stool C-diff+ . George Woods Jan 24, 2020 15:05
--- NOTE | 2020-01-24 16:51 | Pulmonology Progress Note ---
Ivanna Mora DEATH CLAIM CLERK 01/24/20 1651: Subjective ROS Limited/Unobtainable: Yes Allergies: Coded Allergies: CARBAMAZEPINE (Verified Allergy, Unknown, 12/31/19) LORAZEPAM (Verified Allergy, Unknown, 12/31/19) All Systems: reviewed and negative except above Subjective back in [facility] off Dopamine gtt dc plan in order leukocytosis trending down, no labs this am no fevers on Midodrine ABG stable on current settings CXR 01/13 no acute findings Objective Last 24 Hour Vital Signs Date Time Temp Pulse Resp B/P (MAP) Pulse Ox O2 Delivery O2 Flow Rate FiO2 01/24/20 16:00 Mechanical Ventilator 01/24/20 16:00 48 01/24/20 16:00 30 01/24/20 15:05 55 18 30 01/24/20 12:08 62 18 30 01/24/20 12:07 100 01/24/20 12:00 30 01/24/20 12:00 Mechanical Ventilator 01/24/20 12:00 98.1 76 20 100/54 (69) 100 01/24/20 11:32 72 01/24/20 08:00 78 01/24/20 08:00 Mechanical Ventilator 01/24/20 08:00 97.3 76 22 100/58 (72) 95 01/24/20 08:00 30 01/24/20 07:41 78 01/24/20 07:30 85 21 30 01/24/20 04:00 Mechanical Ventilator 01/24/20 04:00 97.9 77 18 113/62 (79) 98 01/24/20 04:00 30 01/24/20 03:26 71 01/24/20 03:02 78 21 30 01/24/20 00:00 97.5 68 23 105/52 (69) 98 01/23/20 23:03 69 18 30 01/23/20 20:02 88 01/23/20 20:00 30 01/23/20 20:00 97.7 68 18 109/57 (74) 100 01/23/20 19:00 97.7 71 27 101/55 (70) 91 01/23/20 18:44 79 15 30 01/23/20 18:00 103 31 101/65 (77) 91 01/23/20 18:00 97 25 101/60 (74) 98 01/23/20 17:00 102 37 92/57 (69) 100 Intake and Output 01/23/20 01/24/20 19:00 07:00 Intake Total 955 ml 905 ml Output Total 620 ml 310 ml Balance 335 ml 595 ml Intake Free Water 350 ml 300 ml Tube Feeding 605 ml 605 ml Output Urine Total 320 ml 260 ml Stool Total 300 ml 50 ml Objective General Appearance: bedridden, pale, chronically ill looking, older than her biological age ; vent dependent female ; on vent SIMV 450-30%-12, PEEP 5 Lines, tubes and drains: peripheral, trach HEENT: normocephalic, atraumatic Neck: trach - Portex #7, secretions small amount, yellow color, thin consistency Respiratory/Chest: CTAB Cardiovascular/Chest: regular rate, regular rhythm Abdomen: non tender, soft, G tube Genitourinary/Rectal: [place] Extremities: no edema, muscle atrophy Neurologic: abnormal gait, poorly responsive, more awake , eyes open Musculoskeletal: atrophy BLE Skin: multiple tattoos Laboratory Tests 01/24/20 13:49: POC Whole Blood Glucose 72L Current Medications Medications (Trade) Dose Ordered Sig/Villa Route PRN Reason Start Time Stop Time Status Last Admin Dose Admin Acetaminophen (Tylenol) 650 mg Q6H PRN GT Temp >100.5 01/23/20 19:41 01/31/20 19:40 Ascorbic Acid (Vitamin C) 500 mg DAILY GT 01/24/20 09:00 01/31/20 08:59 01/24/20 09:43 Chlorhexidine Gluconate (Isabel-Hex 2%) 1 applic DAILY@1999 TOPIC 01/23/20 20:00 04/22/20 19:59 Famotidine (Pepcid) 20 mg BID GT 01/24/20 09:00 04/22/20 09:59 01/24/20 09:44 Fidaxomicin (Dificid) 200 mg EVERY 12 HOURS ORAL 01/23/20 21:00 01/26/20 09:01 01/24/20 10:49 Gabapentin (Neurontin) 900 mg TID GT 01/24/20 09:00 02/19/20 17:59 01/24/20 13:36 Haloperidol Lactate (Haldol) 5 mg Q6H PRN IM Agitation 01/23/20 19:41 02/15/20 19:40 Levetiracetam (Keppra) 1,500 mg Q12HR GT 01/23/20 21:00 02/07/20 08:59 01/24/20 09:42 Levothyroxine Sodium (Synthroid) 50 mcg ACBREAKFAST GT 01/24/20 06:30 02/10/20 06:29 01/24/20 05:57 Metronidazole (Flagyl) 500 mg Q8HR GT 01/23/20 22:00 01/26/20 23:59 01/24/20 13:36 Midodrine (Pro-Amatine) 5 mg TID GT 01/24/20 09:00 04/21/20 08:59 01/24/20 13:36 Multivitamins (Multivitamins W/ Minerals 15ml Liquid) 15 ml DAILY GT 01/24/20 09:00 02/23/20 08:59 01/24/20 09:44 Ondansetron HCl (Zofran) 4 mg Q6H PRN GT Nausea & Vomiting 01/23/20 19:42 01/30/20 19:41 Oxcarbazepine (TrileptaL) 300 mg BEDTIME GT 01/23/20 21:00 02/07/20 20:59 01/23/20 21:50 Potassium Chloride (K-Dur) 20 meq TWICE A DAY GT 01/24/20 09:00 04/10/20 08:59 01/24/20 09:44 Thiamine HCl (Vitamin B1) 100 mg DAILY GT 01/24/20 09:00 01/31/20 08:59 01/24/20 09:44 Assessment/Plan Assessment/Plan ASSESSMENT VDRF/trach status Sepsis Possible pneumonia UTI recurrent GI bleeding C dif colitis Anemia secondary to GI bleeding Aspiration risk Dysphagia, feeding by G-tube Encephalopathy Acute kidney injury likely secondary to dehydration Bradycardia Hypotension Electrolyte imbalance Severe protein calorie malnutrition Hx of hypertension History of CVA Seizure disorder with witnessed seizure episode 01/07 Psychiatric disorder Presumed scabies, s/p Rx Thrombocytopenia-transient- resolved PLAN OF CARE back in [facility] from ICU vent support, pulm toilet ABG stable on current settings, on SIMV mode 450-30-12 PEEP5 , no signs of resp distress on these settings keep settings as is and titrate as needed now tachypneic intermittently ABG repeated 01/14 due to tachypnea- remains stable CXR 01/13 stable pulm toilet via HHN Theophylline level was high -25; ->was dc prior leuk now trending down , no fevers, possibly due to C dif pancx-per ID CXR 01/13- no acute findings KUB 01/13- no acute findings UA + yeast , 01/12 UCX +yeast, started on Fluconazole 01/14 as per ID - completed BCX 01/12 NGTD abx as per ID recs Vanco po was prior dc and switched to Dificid , also on Flagyl per GI inflammatory markers : ESR-42, CRP- wnl prior BCX 05/18 +CONS likely contaminant, off Vanco ; repeated BCX 01/01 and 01/02 NGTD SCX + Proteus , was on Ceftriaxone as per ID recs for poss SBP in setting of GI bleeding - completed BCX 01/01 and 01/02 NGTD stool C dif 01/07 +, on oral vanco rapid COVID 19 NGT in ED aspiration precautions Venous Duplex BLE -negative, get SCD ( unable to give a/c given anemia) closely monitor hemodynamic status Protonix IV GT feeding stool OB positive transfuse to keep Hgb > 7. heme and GI follows s/p EGD 01/01 -> gastric ulcer across G tube site , no active bleeding HH at baseline monitor for any further episodes of Gi bleeding trend LFT-> trended down, hep panel NGT hx of cirrhosis- per GI management hypotension-> Midodrine, s/p IV fluids, off Dopamine gtt now BP better bradycardia -> Midodrine dose decreased and prior Theophylline was started by primary but dc due to increased level cardio follows HR better monitor renal parameters, lytes, avoid nephrotoxic BUN trending down, creat stable, likely prerenal due to dehydration replace e/lytes as per nephro recs monitor volumes seizure precautions, antiepileptic optimized as per neuro recs ammonia 49, fup with further neuro recs EEG - grossly abnormal; mild to mod encephalopathy, single ictal episode CT head no acute IC pathology BP management with current regimen SNF meds supportive care dietary recs s/p 12/31 Rx for presumed scabies with permethrin and Ivermectin, repeated Ivermectin 01/08 dc plan in process case discussed and evaluated by supervising physician Raul Esparza MD 01/24/20 1706: Subjective Allergies: Coded Allergies: CARBAMAZEPINE (Verified Allergy, Unknown, 12/31/19) LORAZEPAM (Verified Allergy, Unknown, 12/31/19) Assessment/Plan Assessment/Plan Patient seen and examined with DEATH CLAIM CLERK. Agree with above A&P as it reflects our joint deliberations. Ivanna Mora NP Jan 24, 2020 16:51 Raul Esparza MD Jan 24, 2020 17:06
--- NOTE | 2020-01-24 17:23 | General Progress Note ---
Assessment/Plan Status: stable, other - Patient is now hypotensive before over 46 she will receive 500 cc of normal saline bolus to be repeated blood pressure remained below 90 further management will be decided following the boluses treatment repeat laboratory tests will be done in kori BISHOP MD Status Narrative Patient could not be discharged today and had placement and completed She is awake alert afebrile hemodynamically stable 50 does not appear in any distress still have elected to [place] catheter Repeat laboratory tests will be done in kori BISHOP MD Assessment/Plan: Glenny Harrison Subjective Constitutional: Reports: no symptoms, other - Awake alert febrile indifferent to his exam HEENT: Reports: no symptoms Cardiovascular: Reports: no symptoms, other - However it is above 50 Respiratory: Reports: no symptoms Gastrointestinal/Abdominal: Reports: no symptoms Genitourinary: Reports: no symptoms Neurologic/Psychiatric: Reports: other - As opposed to previous anxiety and anxiousness she is now removed sufficiently that she ignores the examination Endocrine: Reports: no symptoms Allergies: Coded Allergies: CARBAMAZEPINE (Verified Allergy, Unknown, 12/31/19) LORAZEPAM (Verified Allergy, Unknown, 12/31/19) Objective Last 24 Hour Vital Signs Date Time Temp Pulse Resp B/P (MAP) Pulse Ox O2 Delivery O2 Flow Rate FiO2 01/24/20 16:00 Mechanical Ventilator 01/24/20 16:00 96.8 49 12 103/55 (71) 100 01/24/20 16:00 48 01/24/20 16:00 30 01/24/20 15:05 55 18 30 01/24/20 12:08 62 18 30 01/24/20 12:07 100 01/24/20 12:00 30 01/24/20 12:00 Mechanical Ventilator 01/24/20 12:00 98.1 76 20 100/54 (69) 100 01/24/20 11:32 72 01/24/20 08:00 78 01/24/20 08:00 Mechanical Ventilator 01/24/20 08:00 97.3 76 22 100/58 (72) 95 01/24/20 08:00 30 01/24/20 07:41 78 01/24/20 07:30 85 21 30 01/24/20 04:00 Mechanical Ventilator 01/24/20 04:00 97.9 77 18 113/62 (79) 98 01/24/20 04:00 30 01/24/20 03:26 71 01/24/20 03:02 78 21 30 01/24/20 00:00 97.5 68 23 105/52 (69) 98 01/23/20 23:03 69 18 30 01/23/20 20:02 88 01/23/20 20:00 30 01/23/20 20:00 97.7 68 18 109/57 (74) 100 01/23/20 19:00 97.7 71 27 101/55 (70) 91 01/23/20 18:44 79 15 30 01/23/20 18:00 103 31 101/65 (77) 91 01/23/20 18:00 97 25 101/60 (74) 98 Intake and Output 01/23/20 01/24/20 19:00 07:00 Intake Total 955 ml 905 ml Output Total 620 ml 310 ml Balance 335 ml 595 ml Intake Free Water 350 ml 300 ml Tube Feeding 605 ml 605 ml Output Urine Total 320 ml 260 ml Stool Total 300 ml 50 ml Laboratory Tests 01/24/20 13:49: POC Whole Blood Glucose 72L Height (Feet): 5 Height (Inches): 1.00 Weight (Pounds): 71 General Appearance: alert, other - Indifferent EENT: normal ENT inspection Neck: supple Cardiovascular: normal rate, regular rhythm, no gallop/murmur, no JVD Respiratory/Chest: lungs clear, normal breath sounds, no respiratory distress Abdomen: normal bowel sounds - Ma, non tender, soft, no organomegaly, no mass Neurologic: alert Skin: warm/dry Glenny Bishop MD Jan 24, 2020 17:23
[2020-01-24] MEDS: Dyna-Hex 2% Top Sol 2oz TOPIC SCH (20:00)
[2020-01-24] MEDS: DOPamine 400mg/250ml 250 ML IV SCH (20:47)
[2020-01-24] MEDS: OXcarbazepine 150mg tab GT SCH (20:47)
--- NOTE | 2020-01-24 21:33 | Cardiology Progress Note ---
Assessment/Plan Assessment/Plan 1. Hypotension, recurrent, on midodrine and dopamine drip. 2. Sinus bradycardia, was started on dopamine gtt 5 mcg. 3. Anemia of chronic disease 4. Acute renal failure, resolved. 5. GI bleeding due to gastric ulceration. 6. Dysphagia, s/p PEG placement. 7. VDRF, s/p tracheostomy tube placement. Subjective Subjective Sinus bradycardia at rate of 51, started on dopamine gtt 5 mcg. On the vent with FiO2 of 30%. Objective Last 24 Hour Vital Signs Date Time Temp Pulse Resp B/P (MAP) Pulse Ox O2 Delivery O2 Flow Rate FiO2 01/24/20 20:47 93/51 01/24/20 19:17 51 15 30 01/24/20 16:00 Mechanical Ventilator 01/24/20 16:00 96.8 49 12 103/55 (71) 100 01/24/20 16:00 48 01/24/20 16:00 30 01/24/20 15:05 55 18 30 01/24/20 12:08 62 18 30 01/24/20 12:07 100 01/24/20 12:00 30 01/24/20 12:00 Mechanical Ventilator 01/24/20 12:00 98.1 76 20 100/54 (69) 100 01/24/20 11:32 72 01/24/20 08:00 78 01/24/20 08:00 Mechanical Ventilator 01/24/20 08:00 97.3 76 22 100/58 (72) 95 01/24/20 08:00 30 01/24/20 07:41 78 01/24/20 07:30 85 21 30 01/24/20 04:00 Mechanical Ventilator 01/24/20 04:00 97.9 77 18 113/62 (79) 98 01/24/20 04:00 30 01/24/20 03:26 71 01/24/20 03:02 78 21 30 01/24/20 00:00 97.5 68 23 105/52 (69) 98 01/23/20 23:03 69 18 30 Intake and Output 01/23/20 01/24/20 19:00 07:00 Intake Total 955 ml 905 ml Output Total 620 ml 310 ml Balance 335 ml 595 ml Intake Free Water 350 ml 300 ml Tube Feeding 605 ml 605 ml Output Urine Total 320 ml 260 ml Stool Total 300 ml 50 ml 2D Echo: LVEF 65%, RVSP 23 mmHg, Grade I LVDD Laboratory Tests Test 01/24/20 13:49 01/24/20 17:26 POC Whole Blood Glucose 72 MG/DL (74-106) L 108 MG/DL (74-106) H Objective HEENT: PERRLA, EOMI, Trach site with moderate secretions. NECK: Cannot assess JVP, no carotid bruit with normal upstroke. LUNGS: Bilateral rhonchi. CARDIAC: Regular rhythm and rate. Normal S1, S2 with bradycardia, no murmurs, gallops or rubs. ABDOMEN: Soft with G-tube. No hepatomegaly. EXTREMITIES: No edema, clubbing or cyanosis. Desmond Gleason MD Jan 24, 2020 21:33
[2020-01-25 04:00] VITALS: BP 94/74
[2020-01-25 04:04] LABS: EOSINOPHILS % (AUTO) 6.5 % (0.0-3.0); HEMATOCRIT 34.7 % (37.0-47.0); HEMOGLOBIN 11.1 G/DL (12.0-16.0); LYMPHOCYTES % (AUTO) 23.4 % (20.0-45.0); MEAN CORPUSCULAR VOLUME 94 FL (80-99); MONOCYTES % (AUTO) 5.9 % (1.0-10.0); NEUTROPHILS % (AUTO) 63.2 % (45.0-75.0); PLATELET COUNT 373 K/UL (150-450); RED BLOOD COUNT 3.69 M/UL (4.20-5.40); RED CELL DISTRIBUTION WIDTH 15.1 % (11.6-14.8); WHITE BLOOD COUNT 11.4 K/UL (4.8-10.8)
[2020-01-25] MEDS: metroNIDAZOLE 500mg tab GT SCH ×3 (06:14→21:25)
--- NOTE | 2020-01-25 07:25 | Hematology/Onc Progress Note ---
Assessment/Plan Assessment/Plan # Thrombocytopenia med related v labs error --> plt trend 167-->61-->227->373 --> meds have been reviewed --> no hep or lovenox (if less than 50k plt) # Anemia rule out underlying gi bleed --> Dr. Carrillo has been consulted-->endosco gastric ulceration --> trend hgb 7-->7.4-->7.9-->8.1->9.6-->8.5->9.1-->10-->11-->10.3-->10.4-->11 --> anemia panel ordered-->reviewed --> prn transfusion --> protonix started # Leukocytosis is likely related to pna on imaging --> abx has been started --> if wbc worsens, consider abx vanc/zosyn--> ceftriaxone-->vanc->fluc/flagyl/ vanc-->flagyl/fidoxomicin --> smear is noted --> wbc 25-->15-->14-->16->7.6-->12-->20->13->11 --> pressors prn # Sepsis --> on abx for pna --> pressors as needed # Pneumonia --> pulm, Dr. 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 performance improvement consultant care, will follow Subjective Allergies: Coded Allergies: CARBAMAZEPINE (Verified Allergy, Unknown, 12/31/19) LORAZEPAM (Verified Allergy, Unknown, 12/31/19) All Systems: reviewed and negative except above Subjective 01/01 altered, trach, no bleedin wbc improved on abx, seen by gi 01/02 egd study noted, also with plts 61k, have vitaly Armendariz Rn, will recheck cbc 01/03 remains agitated, vitaly rn, no bleeding, cbc noted as well as id recs 01/04 on vent, with melena overnight, no bleeding, vitaly rn, labs reviewed 01/06 on vent, remains agitated, no bleeding, vitaly rn, smear is noted 01/07 on vent, restless, asymptomatic, noncooperative 01/[address] John obtained, reviewed, meds adjusted, eeg pending 01/09 labs noted, no bleeding, ativan has been discontinued, meds reviewed 01/10 trach to vent, agitated, with wrist restraints, no major changes, no bleeding 01/11 labs are reviewed, on trach to vent, no bleeding, agitated overnight, no complaints 01/13 labs noted, no bleeding, is on vent/trach, no bleeding, vitaly rn, labs are noted 01/14 labs are noted, no bleeding, remains on v/t, remains agitated, no bleeding 01/15 is c.diff positive, wbc higher at 21k, labs noted, on abx, reviewed gi, id recs 01/16 remains on vent, wbc is improved, in sr, as abx per id 01/17 recieved dopamine, tube feeds, on soft restraints, no bleeding, vitaly rn 01/18 labs are noted, no bleeding, vitaly rn, no major changes 01/20 on dopamine gtt, with restraints, no major changes, labs noted 01/21 labs reviewed, no bleeding, vitaly rn, no major changes 01/22 transferred to icu for higher loc, dopamine on hold as bp is good, have increased Synthroid 01/23 labs are pending, meds noted, no bleeding, dopamine gtt ongoing, cbc noted 01/24 still nv, no bleeding, labs reviewed, vitaly rn, with rectal tube in place, on dopamine gtt Objective Objective Current Medications Medications (Trade) Dose Ordered Sig/Villa Route PRN Reason Start Time Stop Time Status Last Admin Dose Admin Acetaminophen (Tylenol) 650 mg Q6H PRN GT Temp >100.5 01/23/20 19:41 01/31/20 19:40 Ascorbic Acid (Vitamin C) 500 mg DAILY GT 01/24/20 09:00 01/31/20 08:59 01/24/20 09:43 Chlorhexidine Gluconate (Isabel-Hex 2%) 1 applic DAILY@1999 TOPIC 01/23/20 20:00 04/22/20 19:59 Dopamine HCl/ Dextrose 250 ml @ 6.038 mls/ hr Q24H IV 01/24/20 21:00 04/23/20 20:59 01/24/20 20:47 Famotidine (Pepcid) 20 mg BID GT 01/24/20 09:00 04/22/20 09:59 01/24/20 17:04 Fidaxomicin (Dificid) 200 mg EVERY 12 HOURS ORAL 01/23/20 21:00 01/26/20 09:01 01/24/20 21:02 Gabapentin (Neurontin) 900 mg TID GT 01/24/20 09:00 02/19/20 17:59 01/24/20 18:39 Haloperidol Lactate (Haldol) 5 mg Q6H PRN IM Agitation 01/23/20 19:41 02/15/20 19:40 Levetiracetam (Keppra) 1,500 mg Q12HR GT 01/23/20 21:00 02/07/20 08:59 01/24/20 20:46 Levothyroxine Sodium (Synthroid) 50 mcg ACBREAKFAST GT 01/24/20 06:30 02/10/20 06:29 01/25/20 06:15 Metronidazole (Flagyl) 500 mg Q8HR GT 01/23/20 22:00 01/26/20 23:59 01/25/20 06:14 Midodrine (Pro-Amatine) 5 mg TID GT 01/24/20 09:00 04/21/20 08:59 01/24/20 17:04 Multivitamins (Multivitamins W/ Minerals 15ml Liquid) 15 ml DAILY GT 01/24/20 09:00 02/23/20 08:59 01/24/20 09:44 Ondansetron HCl (Zofran) 4 mg Q6H PRN GT Nausea & Vomiting 01/23/20 19:42 01/30/20 19:41 Oxcarbazepine (TrileptaL) 300 mg BEDTIME GT 01/23/20 21:00 02/07/20 20:59 01/24/20 20:47 Potassium Chloride (K-Dur) 20 meq TWICE A DAY GT 01/24/20 09:00 04/10/20 08:59 01/24/20 17:05 Thiamine HCl (Vitamin B1) 100 mg DAILY GT 01/24/20 09:00 01/31/20 08:59 01/24/20 09:44 Last 24 Hour Vital Signs Date Time Temp Pulse Resp B/P (MAP) Pulse Ox O2 Delivery O2 Flow Rate FiO2 01/25/20 07:09 46 15 30 01/25/20 04:00 30 01/25/20 04:00 Mechanical Ventilator 01/25/20 04:00 97.0 75 16 94/74 (81) 100 01/25/20 03:39 70 01/25/20 03:13 59 16 30 01/25/20 00:00 55 01/25/20 00:00 Mechanical Ventilator 01/24/20 23:49 97.2 51 13 102/65 (77) 100 01/24/20 23:34 57 16 30 01/24/20 20:47 93/51 01/24/20 20:00 Mechanical Ventilator 01/24/20 20:00 97.0 47 15 102/57 (72) 100 01/24/20 20:00 30 01/24/20 19:17 51 15 30 01/24/20 19:03 49 01/24/20 16:00 Mechanical Ventilator 01/24/20 16:00 96.8 49 12 103/55 (71) 100 01/24/20 16:00 48 01/24/20 16:00 30 01/24/20 15:05 55 18 30 01/24/20 12:08 62 18 30 01/24/20 12:07 100 01/24/20 12:00 30 01/24/20 12:00 Mechanical Ventilator 01/24/20 12:00 98.1 76 20 100/54 (69) 100 01/24/20 11:32 72 01/24/20 08:00 78 01/24/20 08:00 Mechanical Ventilator 01/24/20 08:00 97.3 76 22 100/58 (72) 95 01/24/20 08:00 30 01/24/20 07:41 78 01/24/20 07:30 85 21 30 01/24/20 04:00 Mechanical Ventilator 01/24/20 04:00 97.9 77 18 113/62 (79) 98 01/24/20 04:00 30 01/24/20 03:26 71 01/24/20 03:02 78 21 30 01/24/20 00:00 97.5 68 23 105/52 (69) 98 01/23/20 23:03 69 18 30 01/23/20 20:02 88 01/23/20 20:00 30 01/23/20 20:00 97.7 68 18 109/57 (74) 100 01/23/20 19:00 97.7 71 27 101/55 (70) 91 01/23/20 18:44 79 15 30 01/23/20 18:00 103 31 101/65 (77) 91 01/23/20 18:00 97 25 101/60 (74) 98 01/23/20 17:00 102 37 92/57 (69) 100 01/23/20 16:00 97.8 114 30 94/64 (74) 96 01/23/20 16:00 30 01/23/20 16:00 106 01/23/20 15:10 105 30 30 01/23/20 15:00 117 26 124/70 (88) 100 01/23/20 14:00 119 26 124/70 (88) 100 102 01/23/20 13:00 102 26 139/92 (108) 100 102 01/23/20 12:00 112 01/23/20 12:00 30 01/23/20 12:00 97.1 95 24 117/65 (82) 100 95 01/23/20 11:17 73 20 30 01/23/20 11:00 70 18 120/73 (89) 99 70 01/23/20 10:00 85 18 108/68 (81) 99 85 01/23/20 09:00 83 16 127/77 (94) 99 83 01/23/20 08:00 86 23 114/72 (86) 98 86 01/23/20 08:00 30 01/23/20 07:56 80 Intake and Output 01/24/20 01/25/20 19:00 07:00 Intake Total 630 ml 723.114 ml Output Total 60 ml 50 ml Balance 570 ml 673.114 ml Intake Free Water 80 ml 100 ml IV Total 18.114 ml Tube Feeding 550 ml 605 ml Stool Total 60 ml 50 ml # Voids 2 2 Labs Test 01/22/20 11:34 01/22/20 23:03 01/23/20 04:20 01/24/20 13:49 White Blood Count 11.4 K/UL (4.8-10.8) Red Blood Count 3.95 M/UL (4.20-5.40) Hemoglobin 11.7 G/DL (12.0-16.0) Hematocrit 37.2 % (37.0-47.0) Mean Corpuscular Volume 94 FL (80-99) Mean Corpuscular Hemoglobin 29.6 PG (27.0-31.0) Mean Corpuscular Hemoglobin Concent 31.4 G/DL (32.0-36.0) Red Cell Distribution Width 15.2 % (11.6-14.8) Platelet Count 376 K/UL (150-450) Mean Platelet Volume 6.0 FL (6.5-10.1) Neutrophils (%) (Auto) 67.1 % (45.0-75.0) Lymphocytes (%) (Auto) 17.7 % (20.0-45.0) Monocytes (%) (Auto) 7.0 % (1.0-10.0) Eosinophils (%) (Auto) 7.2 % (0.0-3.0) Basophils (%) (Auto) 1.0 % (0.0-2.0) Sodium Level 141 MMOL/L (136-145) Potassium Level 4.4 MMOL/L (3.5-5.1) Chloride Level 107 MMOL/L (98-107) Carbon Dioxide Level 28 MMOL/L (21-32) Anion Gap 7 mmol/L (5-15) Blood Urea Nitrogen 29 mg/dL (7-18) Creatinine 0.4 MG/DL (0.55-1.30) Estimat Glomerular Filtration Rate > 60 mL/min (>60) Glucose Level 87 MG/DL (74-106) Calcium Level 9.7 MG/DL (8.5-10.1) Total Bilirubin 0.2 MG/DL (0.2-1.0) Aspartate Amino Transf (AST/SGOT) 28 U/L (15-37) Alanine Aminotransferase (ALT/SGPT) 33 U/L (12-78) Alkaline Phosphatase 104 U/L (46-116) Total Protein 7.9 G/DL (6.4-8.2) Albumin 3.0 G/DL (3.4-5.0) Globulin 4.9 g/dL Albumin/Globulin Ratio 0.6 (1.0-2.7) Thyroid Stimulating Hormone (TSH) 0.123 uiU/mL (0.358-3.740) POC Whole Blood Glucose 72 MG/DL (74-106) Test 9/9/20 17:26 01/25/20 03:15 POC Whole Blood Glucose 108 MG/DL (74-106) White Blood Count 11.4 K/UL (4.8-10.8) Red Blood Count 3.69 M/UL (4.20-5.40) Hemoglobin 11.1 G/DL (12.0-16.0) Hematocrit 34.7 % (37.0-47.0) Mean Corpuscular Volume 94 FL (80-99) Mean Corpuscular Hemoglobin 30.1 PG (27.0-31.0) Mean Corpuscular Hemoglobin Concent 32.0 G/DL (32.0-36.0) Red Cell Distribution Width 15.1 % (11.6-14.8) Platelet Count 373 K/UL (150-450) Mean Platelet Volume 6.4 FL (6.5-10.1) Neutrophils (%) (Auto) 63.2 % (45.0-75.0) Lymphocytes (%) (Auto) 23.4 % (20.0-45.0) Monocytes (%) (Auto) 5.9 % (1.0-10.0) Eosinophils (%) (Auto) 6.5 % (0.0-3.0) Basophils (%) (Auto) 1.0 % (0.0-2.0) Height (Feet): 5 Height (Inches): 1.00 Weight (Pounds): 71 Objective Vital Signs General Appearance: ++ cachectic, chronically ill HEENT: normocephalic, atraumatic ++ trach Resp: other -. vent ++ Cardiovascular: regular rate, rhythm, no edema Gastrointestinal: gtube in place, without erythema Rectal: other - Hemoccult positive [place]: back normal, gait/station normal, non-tender Lymphatic: no adenopathy Baltazar Cortes MD Jan 25, 2020 07:25
[2020-01-25 08:00] VITALS: BP 97/57
[2020-01-25] MEDS: Ascorbic Acid 500mg tab GT SCH (09:22)
[2020-01-25] MEDS: Thiamine 100mg tab GT SCH (09:22)
[2020-01-25] MEDS: Gabapentin 300 MG/6 ML Soln GT SCH ×3 (09:23→18:01)
[2020-01-25] MEDS: Multivitamins W/Minerals 15 ML UDC GT SCH (09:23)
[2020-01-25] MEDS: levETIRAcetam 500mg/5ml Liquid GT SCH ×2 (09:23→21:25)
--- NOTE | 2020-01-25 09:25 | General Progress Note ---
Assessment/Plan Problem List: (1) G tube feedings ICD Codes: Z93.1 - Gastrostomy status SNOMED: 090634109, 996200290, 281812472 (2) GI bleed ICD Codes: K92.2 - Gastrointestinal hemorrhage, unspecified SNOMED: 10773682 (3) Sepsis ICD Codes: A41.9 - Sepsis, unspecified organism SNOMED: 11535808 (4) Pneumonia ICD Codes: J18.9 - Pneumonia, unspecified organism SNOMED: 222854913 Status: stable, other - Patient is now hypotensive before over 46 she will receive 500 cc of normal saline bolus to be repeated blood pressure remained below 90 further management will be decided following the boluses treatment repeat laboratory tests will be done in a.m. GEM MCKAY MD Assessment/Plan: s/p EGD gastric ulcer no recurrent bleed G TF monitor H&H C. Diff positive off ppi po vanco pepcid will fu Subjective ROS Limited/Unobtainable: No Allergies: Coded Allergies: CARBAMAZEPINE (Verified Allergy, Unknown, 12/31/19) LORAZEPAM (Verified Allergy, Unknown, 12/31/19) Objective Last 24 Hour Vital Signs Date Time Temp Pulse Resp B/P (MAP) Pulse Ox O2 Delivery O2 Flow Rate FiO2 01/25/20 08:00 30 01/25/20 08:00 97.3 55 17 97/57 (70) 100 01/25/20 08:00 Mechanical Ventilator 01/25/20 07:09 46 15 30 01/25/20 04:00 30 01/25/20 04:00 Mechanical Ventilator 01/25/20 04:00 97.0 75 16 94/74 (81) 100 01/25/20 03:39 70 01/25/20 03:13 59 16 30 01/25/20 00:00 55 01/25/20 00:00 Mechanical Ventilator 01/24/20 23:49 97.2 51 13 102/65 (77) 100 01/24/20 23:34 57 16 30 01/24/20 20:47 93/51 01/24/20 20:00 Mechanical Ventilator 01/24/20 20:00 97.0 47 15 102/57 (72) 100 01/24/20 20:00 30 01/24/20 19:17 51 15 30 01/24/20 19:03 49 01/24/20 16:00 Mechanical Ventilator 01/24/20 16:00 96.8 49 12 103/55 (71) 100 01/24/20 16:00 48 01/24/20 16:00 30 01/24/20 15:05 55 18 30 01/24/20 12:08 62 18 30 01/24/20 12:07 100 01/24/20 12:00 30 01/24/20 12:00 Mechanical Ventilator 01/24/20 12:00 98.1 76 20 100/54 (69) 100 01/24/20 11:32 72 Intake and Output 01/24/20 01/25/20 19:00 07:00 Intake Total 630 ml 723.114 ml Output Total 60 ml 50 ml Balance 570 ml 673.114 ml Intake Free Water 80 ml 100 ml IV Total 18.114 ml Tube Feeding 550 ml 605 ml Stool Total 60 ml 50 ml # Voids 2 2 Laboratory Tests 01/24/20 13:49: POC Whole Blood Glucose 72L 01/24/20 17:26: POC Whole Blood Glucose 108H 01/25/20 03:15: White Blood Count 11.4H, Red Blood Count 3.69L, Hemoglobin 11.1L, Hematocrit 34.7L, Mean Corpuscular Volume 94, Mean Corpuscular Hemoglobin 30.1, Mean Corpuscular Hemoglobin Concent 32.0, Red Cell Distribution Width 15.1H, Platelet Count 373, Mean Platelet Volume 6.4L, Neutrophils (%) (Auto) 63.2, Lymphocytes (%) (Auto) 23.4, Monocytes (%) (Auto) 5.9, Eosinophils (%) (Auto) 6.5H, Basophils (%) (Auto) 1.0 Height (Feet): 5 Height (Inches): 1.00 Weight (Pounds): 71 General Appearance: no apparent distress EENT: normal ENT inspection Neck: supple Cardiovascular: normal rate Respiratory/Chest: decreased breath sounds Abdomen: normal bowel sounds, non tender, soft Extremities: non-tender Satish Carrillo MD Jan 25, 2020 09:25
--- NOTE | 2020-01-25 09:30 | General Progress Note ---
Assessment/Plan Problem List: (1) G tube feedings ICD Codes: Z93.1 - Gastrostomy status SNOMED: 960932047, 547204083, 856296361 (2) GI bleed ICD Codes: K92.2 - Gastrointestinal hemorrhage, unspecified SNOMED: 45770038 (3) Sepsis ICD Codes: A41.9 - Sepsis, unspecified organism SNOMED: 74053211 (4) Pneumonia ICD Codes: J18.9 - Pneumonia, unspecified organism SNOMED: 020148613 Status: stable, other - Patient is now hypotensive before over 46 she will receive 500 cc of normal saline bolus to be repeated blood pressure remained below 90 further management will be decided following the boluses treatment repeat laboratory tests will be done in a.m. GEM MCKAY MD Assessment/Plan: s/p EGD gastric ulcer no recurrent bleed G TF monitor H&H C. Diff positive off ppi po dificid still has diarrhea pepcid>>> will dc on dopamine will fu Subjective ROS Limited/Unobtainable: No Allergies: Coded Allergies: CARBAMAZEPINE (Verified Allergy, Unknown, 12/31/19) LORAZEPAM (Verified Allergy, Unknown, 12/31/19) Objective Last 24 Hour Vital Signs Date Time Temp Pulse Resp B/P (MAP) Pulse Ox O2 Delivery O2 Flow Rate FiO2 01/25/20 08:00 30 01/25/20 08:00 97.3 55 17 97/57 (70) 100 01/25/20 08:00 Mechanical Ventilator 01/25/20 07:09 46 15 30 01/25/20 04:00 30 01/25/20 04:00 Mechanical Ventilator 01/25/20 04:00 97.0 75 16 94/74 (81) 100 01/25/20 03:39 70 01/25/20 03:13 59 16 30 01/25/20 00:00 55 01/25/20 00:00 Mechanical Ventilator 01/24/20 23:49 97.2 51 13 102/65 (77) 100 01/24/20 23:34 57 16 30 01/24/20 20:47 93/51 01/24/20 20:00 Mechanical Ventilator 01/24/20 20:00 97.0 47 15 102/57 (72) 100 01/24/20 20:00 30 01/24/20 19:17 51 15 30 01/24/20 19:03 49 01/24/20 16:00 Mechanical Ventilator 01/24/20 16:00 96.8 49 12 103/55 (71) 100 01/24/20 16:00 48 01/24/20 16:00 30 01/24/20 15:05 55 18 30 01/24/20 12:08 62 18 30 01/24/20 12:07 100 01/24/20 12:00 30 01/24/20 12:00 Mechanical Ventilator 01/24/20 12:00 98.1 76 20 100/54 (69) 100 01/24/20 11:32 72 Intake and Output 01/24/20 01/25/20 19:00 07:00 Intake Total 630 ml 723.114 ml Output Total 60 ml 50 ml Balance 570 ml 673.114 ml Intake Free Water 80 ml 100 ml IV Total 18.114 ml Tube Feeding 550 ml 605 ml Stool Total 60 ml 50 ml # Voids 2 2 Laboratory Tests 01/24/20 13:49: POC Whole Blood Glucose 72L 01/24/20 17:26: POC Whole Blood Glucose 108H 01/25/20 03:15: White Blood Count 11.4H, Red Blood Count 3.69L, Hemoglobin 11.1L, Hematocrit 34.7L, Mean Corpuscular Volume 94, Mean Corpuscular Hemoglobin 30.1, Mean Corpuscular Hemoglobin Concent 32.0, Red Cell Distribution Width 15.1H, Platelet Count 373, Mean Platelet Volume 6.4L, Neutrophils (%) (Auto) 63.2, Lymphocytes (%) (Auto) 23.4, Monocytes (%) (Auto) 5.9, Eosinophils (%) (Auto) 6.5H, Basophils (%) (Auto) 1.0 Height (Feet): 5 Height (Inches): 1.00 Weight (Pounds): 71 General Appearance: lethargic EENT: normal ENT inspection Neck: supple Cardiovascular: normal rate Respiratory/Chest: decreased breath sounds Abdomen: normal bowel sounds, non tender, soft Extremities: non-tender Satish Carrillo MD Jan 25, 2020 09:30
--- NOTE | 2020-01-25 09:53 | Nephrology Progress Note ---
Assessment/Plan Problem List: (1) RICHARD (acute kidney injury) (2) Dehydration (3) Anemia (4) GI bleed (5) Malnutrition (6) Seizure disorder (7) Electrolyte imbalance Assessment Renal failure, in the form of prerenal azotemia, most likely secondary to GI bleed GI bleed, leading to severe anemia Sepsis, pneumonia Chronic tracheostomy, ventilator dependent History of CVA History of seizure disorder History of psychiatric disorder Severe malnutrition Electrolyte abnormalities Plan January 24: Status unchanged. Labs reviewed. Remains stable from renal standpoint of view. January 23: Back in [place]. Stable from renal standpoint of view. Continue per consultants. January 22: Patient in ICU now. Vital signs and heart rate and blood pressure appears to be stable. Patient had an episode of bradycardia but it was resolved. TSH level today is very low will cut down on Synthroid dose. January 21: Today's labs are reviewed. Stable renal parameters. Continue per consultants. January 20: Labs reviewed. Renal parameters stable. January 19: Labs reviewed. Stable from renal standpoint. January 18: No labs done today. Continue per consultants. Medications reviewed. January 17: Late [place] entry [place] [facility] [place]istry [place] reviewed. Stable from renal standpoint of view. Continue per current management. January 16: No can panel today. Check lab tomorrow. Remains stable from renal standpoint of view. January 15: Lab reviewed. Renal parameters stable. January 14: Lab reviewed. Renal parameters stable. January 13: Labs reviewed. Stable from renal standpoint of view. January 12: Labs reviewed. Stable from renal standpoint of view January 11: No labs drawn today stable from renal standpoint of view January 10: Labs reviewed. Potassium supplement given. Continue per consultants. January 09: Lab reviewed. Potassium supplement given. IV fluid discontinued. January 08: Lab reviewed. Renal parameters stable. Continue per consultants. January 07: Lab reviewed. Renal parameters stable. Continue per consultants. January 06: Lab reviewed. Stable from renal standpoint of view. January 05: Labs reviewed. Stable from renal standpoint of view. Continue per consultants. January 04: No labs drawn today. Will check labs tomorrow. Continue per consultants. January 03: Lab reviewed. Renal parameters stable. IV fluid discontinued. High LFTs declining. Continue same. January 02: Lab reviewed. Renal parameters stable. Continue per PMD and consultants. LFTs remain elevated. Continue to monitor. Continue slow hydration Discontinue blood pressure medications as her blood pressure is low Discontinue diuretics Monitor renal parameters Transfusion as needed GI evaluation Correct electrolyte abnormalities Check B12 level, folate, and thyroid function tests: Results noted Subjective ROS Limited/Unobtainable: Yes Objective Objective Last 24 Hour Vital Signs Date Time Temp Pulse Resp B/P (MAP) Pulse Ox O2 Delivery O2 Flow Rate FiO2 01/25/20 09:32 100 01/25/20 08:00 30 01/25/20 08:00 97.3 55 17 97/57 (70) 100 01/25/20 08:00 Mechanical Ventilator 01/25/20 07:09 46 15 30 01/25/20 04:00 30 01/25/20 04:00 Mechanical Ventilator 01/25/20 04:00 97.0 75 16 94/74 (81) 100 01/25/20 03:39 70 01/25/20 03:13 59 16 30 01/25/20 00:00 55 01/25/20 00:00 Mechanical Ventilator 01/24/20 23:49 97.2 51 13 102/65 (77) 100 01/24/20 23:34 57 16 30 01/24/20 20:47 93/51 01/24/20 20:00 Mechanical Ventilator 01/24/20 20:00 97.0 47 15 102/57 (72) 100 01/24/20 20:00 30 01/24/20 19:17 51 15 30 01/24/20 19:03 49 01/24/20 16:00 Mechanical Ventilator 01/24/20 16:00 96.8 49 12 103/55 (71) 100 01/24/20 16:00 48 01/24/20 16:00 30 01/24/20 15:05 55 18 30 01/24/20 12:08 62 18 30 01/24/20 12:07 100 01/24/20 12:00 30 01/24/20 12:00 Mechanical Ventilator 01/24/20 12:00 98.1 76 20 100/54 (69) 100 01/24/20 11:32 72 Intake and Output 01/24/20 01/25/20 19:00 07:00 Intake Total 630 ml 723.114 ml Output Total 60 ml 50 ml Balance 570 ml 673.114 ml Intake Free Water 80 ml 100 ml IV Total 18.114 ml Tube Feeding 550 ml 605 ml Stool Total 60 ml 50 ml # Voids 2 2 Laboratory Tests 01/24/20 13:49: POC Whole Blood Glucose 72L 01/24/20 17:26: POC Whole Blood Glucose 108H 01/25/20 03:15: White Blood Count 11.4H, Red Blood Count 3.69L, Hemoglobin 11.1L, Hematocrit 34.7L, Mean Corpuscular Volume 94, Mean Corpuscular Hemoglobin 30.1, Mean Corpuscular Hemoglobin Concent 32.0, Red Cell Distribution Width 15.1H, Platelet Count 373, Mean Platelet Volume 6.4L, Neutrophils (%) (Auto) 63.2, Lymphocytes (%) (Auto) 23.4, Monocytes (%) (Auto) 5.9, Eosinophils (%) (Auto) 6.5H, Basophils (%) (Auto) 1.0 Height (Feet): 5 Height (Inches): 1.00 Weight (Pounds): 71 General Appearance: no apparent distress EENT: other - Trach connected to vent Cardiovascular: other - Variable rate Respiratory/Chest: decreased breath sounds Abdomen: soft Objective No change Chivo Holloway MD Jan 25, 2020 09:53
--- NOTE | 2020-01-25 10:31 | Surgery Progress Note ---
Surgery Progress Note Subjective Additional Comments comfortable eyes open and track but no response to commands Objective Last 24 Hour Vital Signs Date Time Temp Pulse Resp B/P (MAP) Pulse Ox O2 Delivery O2 Flow Rate FiO2 01/25/20 09:32 100 01/25/20 08:00 30 01/25/20 08:00 97.3 55 17 97/57 (70) 100 01/25/20 08:00 Mechanical Ventilator 01/25/20 07:41 51 01/25/20 07:09 46 15 30 01/25/20 04:00 30 01/25/20 04:00 Mechanical Ventilator 01/25/20 04:00 97.0 75 16 94/74 (81) 100 01/25/20 03:39 70 01/25/20 03:13 59 16 30 01/25/20 00:00 55 01/25/20 00:00 Mechanical Ventilator 01/24/20 23:49 97.2 51 13 102/65 (77) 100 01/24/20 23:34 57 16 30 01/24/20 20:47 93/51 01/24/20 20:00 Mechanical Ventilator 01/24/20 20:00 97.0 47 15 102/57 (72) 100 01/24/20 20:00 30 01/24/20 19:17 51 15 30 01/24/20 19:03 49 01/24/20 16:00 Mechanical Ventilator 01/24/20 16:00 96.8 49 12 103/55 (71) 100 01/24/20 16:00 48 01/24/20 16:00 30 01/24/20 15:05 55 18 30 01/24/20 12:08 62 18 30 01/24/20 12:07 100 01/24/20 12:00 30 01/24/20 12:00 Mechanical Ventilator 01/24/20 12:00 98.1 76 20 100/54 (69) 100 01/24/20 11:32 72 I&O Intake and Output 01/24/20 01/25/20 19:00 07:00 Intake Total 630 ml 723.114 ml Output Total 60 ml 50 ml Balance 570 ml 673.114 ml Intake Free Water 80 ml 100 ml IV Total 18.114 ml Tube Feeding 550 ml 605 ml Stool Total 60 ml 50 ml # Voids 2 2 Dressing: other Wound: other Cardiovascular: RSR Respiratory: decreased breath sounds Abdomen: soft, non-tender, present bowel sounds Extremities: no tenderness, no cyanosis Laboratory Tests Test 01/24/20 13:49 01/24/20 17:26 01/25/20 03:15 POC Whole Blood Glucose 72 MG/DL (74-106) L 108 MG/DL (74-106) H White Blood Count 11.4 K/UL (4.8-10.8) H Red Blood Count 3.69 M/UL (4.20-5.40) L Hemoglobin 11.1 G/DL (12.0-16.0) L Hematocrit 34.7 % (37.0-47.0) L Mean Corpuscular Volume 94 FL (80-99) Mean Corpuscular Hemoglobin 30.1 PG (27.0-31.0) Mean Corpuscular Hemoglobin Concent 32.0 G/DL (32.0-36.0) Red Cell Distribution Width 15.1 % (11.6-14.8) H Platelet Count 373 K/UL (150-450) Mean Platelet Volume 6.4 FL (6.5-10.1) L Neutrophils (%) (Auto) 63.2 % (45.0-75.0) Lymphocytes (%) (Auto) 23.4 % (20.0-45.0) Monocytes (%) (Auto) 5.9 % (1.0-10.0) Eosinophils (%) (Auto) 6.5 % (0.0-3.0) H Basophils (%) (Auto) 1.0 % (0.0-2.0) Plan Problems: (1) Pneumonia (2) Sepsis Assessment & Plan: leukocytosis anemia lactic acidosis agree with GI recommend EGD planned for 12/31 hold feeding for now trend h/h monitor for bleeding no acute hemorrhage will be available in event needs exploration for hemostasis prbc as per heme thank you will follow with recs cont abx worsening wbc wbc trending down comfortable appearing no n/v hypotensive in ICU again PICC ordered Pt presented on admission in emaciated state. Pt has tracheostomy and GT. NO skin concerns noted to skin under collar of trach. NO erythema or evidence of skin erosion at GT site. Pt noted to have scaly pimple-like rash with webbing noted to R and L axillae, undersides of both breasts, Bilat groin and lower back. Tracking and webbing noted to hands and feet. Pt restless and scratching at skin. Non-Blanching erythema without induration or fluctuance noted to R and L hips and trochanteric areas.Non-blanching erythema noted along spine. Non-Blanching erythema without induration noted to Sacrum. Non-Blanching erythema noted to R and L Malleoli and both heels. Tx.Plan: Please apply Cavilon Skin Barrier to each bony Prominences at risks for Skin Breakdown. Cover each area with Optifoam drsgs. Change every 7 days and prn. Apply Moisture Barrier Paste to Sacrum. Cover with Optifoam drsg. Change every 3 days and prn. Reposition at least every 2hours or as tolerated. Off-load heels with pillow. APM/EMELI Mattress overlay. improving cont current care plan There is marked enlargement of the third and lateral ventricles and extra axial CSF spaces, in particular the former. There is considerable periventricular deep white matter low-attenuation. Otherwise normal mobley-white differentiation. No acute hemorrhage or edema. No mass effect nor midline shift. Visualized orbits and sinuses are unremarkable. The calvarium is intact Impression: Third and lateral ventriculomegaly. Associated enlargement of the extra axial CSF spaces indicates that this is probably due to central volume loss, but the possibility of hydrocephalus should also be considered. At the degree of volume loss is considerably out of proportion to patient's age. Correlate with clinical history Periventricular deep white matter low-attenuation. Probably on the basis of microvascular ischemic change but given patient's age the possibility of demyelinating disease should be considered as well. Negative for acute intracranial bleed or mass effect (3) GI bleed (4) G tube feedings Assessment & Plan: DAILY ESTIMATED NEEDS: Needs based on Underweight, critical care 37.3kg 30-40 kcals/kg [id number] total kcals 1.25-2 g protein/kg 47-75 g total protein 25-35 mL/kg [phone] total fluid mLs NUTRITION DIAGNOSIS: Increased kcal and pro needs r/t underweight status as evidenced by BMI 14.1, pt is 68% of ideal body weight w/ generalized severe wasting, trach and peg dep. CURRENT TF:Vital AF 1.2 @55 x20 hrs ENTERAL NUTRITION RECOMMENDATIONS: Vital AF 1.2 @ 55ml/hr x20 hrs to provide 1100ml 1320kcal 83g prot, 892ml free water - Rec to continue elemental TF formula while stool C-diff positive, +LBM - HOLD 1HR BEFORE AND AFTER SYNTHROID MEDS - Flush per MD. HOB over 30 degrees ADDITIONAL RECOMMENDATIONS: 1) Per SNF: 5'4" and 81# Maintain calibrated bed scale wts w/ added P200 mattress 2) Lytes daily madhav w/ loose stools, replete as needed 3) Skin integrity: Continue BRIAN VIA GT BID + Vit C 4) Accuchecks for Hypoglycemia 5) Add probiotics for stool C-diff+ . George Woods Jan 25, 2020 10:31
--- NOTE | 2020-01-25 10:42 | Pulmonology Progress Note ---
Ivanna Mora LOAN EXAMINER 01/25/20 1042: Subjective ROS Limited/Unobtainable: Yes Allergies: Coded Allergies: CARBAMAZEPINE (Verified Allergy, Unknown, 12/31/19) LORAZEPAM (Verified Allergy, Unknown, 12/31/19) All Systems: reviewed and negative except above Subjective in [place] back on Dopamine gtt since last night 01/23 since BP dropped and pt was bradycardic as well also on Midodrine no fevers no sign sof resp distress on current settings Objective Last 24 Hour Vital Signs Date Time Temp Pulse Resp B/P (MAP) Pulse Ox O2 Delivery O2 Flow Rate FiO2 01/25/20 09:32 100 01/25/20 08:00 30 01/25/20 08:00 97.3 55 17 97/57 (70) 100 01/25/20 08:00 Mechanical Ventilator 01/25/20 07:41 51 01/25/20 07:09 46 15 30 01/25/20 04:00 30 01/25/20 04:00 Mechanical Ventilator 01/25/20 04:00 97.0 75 16 94/74 (81) 100 01/25/20 03:39 70 01/25/20 03:13 59 16 30 01/25/20 00:00 55 01/25/20 00:00 Mechanical Ventilator 01/24/20 23:49 97.2 51 13 102/65 (77) 100 01/24/20 23:34 57 16 30 01/24/20 20:47 93/51 01/24/20 20:00 Mechanical Ventilator 01/24/20 20:00 97.0 47 15 102/57 (72) 100 01/24/20 20:00 30 01/24/20 19:17 51 15 30 01/24/20 19:03 49 01/24/20 16:00 Mechanical Ventilator 01/24/20 16:00 96.8 49 12 103/55 (71) 100 01/24/20 16:00 48 01/24/20 16:00 30 01/24/20 15:05 55 18 30 01/24/20 12:08 62 18 30 01/24/20 12:07 100 01/24/20 12:00 30 01/24/20 12:00 Mechanical Ventilator 01/24/20 12:00 98.1 76 20 100/54 (69) 100 01/24/20 11:32 72 Intake and Output 9/9/20 9/10/20 19:00 07:00 Intake Total 630 ml 723.114 ml Output Total 60 ml 50 ml Balance 570 ml 673.114 ml Intake Free Water 80 ml 100 ml IV Total 18.114 ml Tube Feeding 550 ml 605 ml Stool Total 60 ml 50 ml # Voids 2 2 Objective General Appearance: bedridden, pale, chronically ill looking, older than her biological age ; vent dependent female ; on vent SIMV 450-30%-12, PEEP 5 Lines, tubes and drains: peripheral, trach HEENT: normocephalic, atraumatic Neck: trach - Portex #7, secretions small amount, yellow color, thin consistency Respiratory/Chest: CTAB Cardiovascular/Chest: regular rate, regular rhythm Abdomen: non tender, soft, G tube Genitourinary/Rectal: [place] Extremities: no edema, muscle atrophy Neurologic: abnormal gait, poorly responsive, more awake , eyes open Musculoskeletal: atrophy BLE Skin: multiple tattoos Laboratory Tests 01/24/20 13:49: POC Whole Blood Glucose 72L 01/24/20 17:26: POC Whole Blood Glucose 108H 01/25/20 03:15: White Blood Count 11.4H, Red Blood Count 3.69L, Hemoglobin 11.1L, Hematocrit 34.7L, Mean Corpuscular Volume 94, Mean Corpuscular Hemoglobin 30.1, Mean Corpuscular Hemoglobin Concent 32.0, Red Cell Distribution Width 15.1H, Platelet Count 373, Mean Platelet Volume 6.4L, Neutrophils (%) (Auto) 63.2, Lymphocytes (%) (Auto) 23.4, Monocytes (%) (Auto) 5.9, Eosinophils (%) (Auto) 6.5H, Basophils (%) (Auto) 1.0 Current Medications Medications (Trade) Dose Ordered Sig/Villa Route PRN Reason Start Time Stop Time Status Last Admin Dose Admin Acetaminophen (Tylenol) 650 mg Q6H PRN GT Temp >100.5 01/23/20 19:41 01/31/20 19:40 Ascorbic Acid (Vitamin C) 500 mg DAILY GT 01/24/20 09:00 01/31/20 08:59 01/25/20 09:22 Chlorhexidine Gluconate (Isabel-Hex 2%) 1 applic DAILY@1999 TOPIC 01/23/20 20:00 04/22/20 19:59 Dopamine HCl/ Dextrose 250 ml @ 6.038 mls/ hr Q24H IV 01/24/20 21:00 04/23/20 20:59 01/24/20 20:47 Fidaxomicin (Dificid) 200 mg EVERY 12 HOURS ORAL 01/23/20 21:00 01/26/20 09:01 01/25/20 09:22 Gabapentin (Neurontin) 900 mg TID GT 01/24/20 09:00 02/19/20 17:59 01/25/20 09:23 Haloperidol Lactate (Haldol) 5 mg Q6H PRN IM Agitation 01/23/20 19:41 02/15/20 19:40 Levetiracetam (Keppra) 1,500 mg Q12HR GT 01/23/20 21:00 02/07/20 08:59 01/25/20 09:23 Levothyroxine Sodium (Synthroid) 50 mcg ACBREAKFAST GT 01/24/20 06:30 02/10/20 06:29 01/25/20 06:15 Metronidazole (Flagyl) 500 mg Q8HR GT 01/23/20 22:00 01/26/20 23:59 01/25/20 06:14 Midodrine (Pro-Amatine) 5 mg TID GT 01/24/20 09:00 04/21/20 08:59 01/25/20 09:22 Multivitamins (Multivitamins W/ Minerals 15ml Liquid) 15 ml DAILY GT 01/24/20 09:00 02/23/20 08:59 01/25/20 09:23 Ondansetron HCl (Zofran) 4 mg Q6H PRN GT Nausea & Vomiting 01/23/20 19:42 01/30/20 19:41 Oxcarbazepine (TrileptaL) 300 mg BEDTIME GT 01/23/20 21:00 02/07/20 20:59 01/24/20 20:47 Potassium Chloride (K-Dur) 20 meq TWICE A DAY GT 01/24/20 09:00 04/10/20 08:59 01/25/20 09:21 Thiamine HCl (Vitamin B1) 100 mg DAILY GT 01/24/20 09:00 01/31/20 08:59 01/25/20 09:22 Assessment/Plan Assessment/Plan ASSESSMENT VDRF/trach status Sepsis Possible pneumonia UTI recurrent GI bleeding C dif colitis Anemia secondary to GI bleeding Aspiration risk Dysphagia, feeding by G-tube Encephalopathy Acute kidney injury likely secondary to dehydration Bradycardia Hypotension Electrolyte imbalance Severe protein calorie malnutrition Hx of hypertension History of CVA Seizure disorder with witnessed seizure episode 01/07 Psychiatric disorder Presumed scabies, s/p Rx Thrombocytopenia-transient- resolved PLAN OF CARE back in [place] from ICU back on Dopamine and also on Midodrine vent support, pulm toilet ABG stable on current settings, on SIMV mode 450-30-12 PEEP5 , no signs of resp distress on these settings keep settings as is and titrate as needed now tachypneic intermittently ABG repeated 01/14 due to tachypnea- remains stable CXR 01/13 stable pulm toilet via HHN Theophylline level was high -25; ->was dc prior leuk now trending down , no fevers, possibly due to C dif pancx-per ID CXR 01/13- no acute findings KUB 01/13- no acute findings UA + yeast , 01/12 UCX +yeast, started on Fluconazole 01/14 as per ID - completed BCX 01/12 NGTD abx as per ID recs Vanco po was prior dc and switched to Dificid , also on Flagyl per GI inflammatory markers : ESR-42, CRP- wnl prior BCX 05/18 +CONS likely contaminant, off Vanco ; repeated BCX 01/01 and 01/02 NGTD SCX + Proteus , was on Ceftriaxone as per ID recs for poss SBP in setting of GI bleeding - completed BCX 01/01 and 01/02 NGTD stool C dif 01/07 +, on oral vanco rapid COVID 19 NGT in ED aspiration precautions Venous Duplex BLE -negative, get SCD ( unable to give a/c given anemia) closely monitor hemodynamic status Protonix IV GT feeding stool OB positive transfuse to keep Hgb > 7. heme and GI follows s/p EGD 01/01 -> gastric ulcer across G tube site , no active bleeding HH at baseline monitor for any further episodes of Gi bleeding trend LFT-> trended down, hep panel NGT hx of cirrhosis- per GI management hypotension-> Midodrine, s/p IV fluids, back on Dopamine gtt bradycardia cardio follows monitor renal parameters, lytes, avoid nephrotoxic BUN trending down, creat stable, likely prerenal due to dehydration replace e/lytes as per nephro recs monitor volumes seizure precautions, antiepileptic optimized as per neuro recs ammonia 49, fup with further neuro recs EEG - grossly abnormal; mild to mod encephalopathy, single ictal episode CT head no acute IC pathology BP management with current regimen SNF meds supportive care dietary recs s/p 12/31 Rx for presumed scabies with permethrin and Ivermectin, repeated Ivermectin 01/08 case discussed and evaluated by supervising physician Raul Esparza MD 01/25/20 1124: Subjective Allergies: Coded Allergies: CARBAMAZEPINE (Verified Allergy, Unknown, 12/31/19) LORAZEPAM (Verified Allergy, Unknown, 12/31/19) Assessment/Plan Assessment/Plan Patient seen and examined with LOAN EXAMINER. Agree with above A&P as it reflects our joint deliberations. Ivanna Mora NP Jan 25, 2020 10:42 Raul Esparza MD Jan 25, 2020 11:24
[2020-01-25 12:00] VITALS: BP 96/61
--- NOTE | 2020-01-25 14:04 | Infectious Diseases Prog Note ---
Assessment/Plan 39yo F with: Sepsis Fever to 101.5>>Low grade ; SP Possible pna on CXR Leukocytosis; recurrent; increased- now improvign -01/13 CXR: no acute disease -01/12 u/a wbc tnct, nit neg, latrell +3; ucx >100k C. tropicalis Bcx NTD Cdiff colitis -Cdif toxin + -01/13 KUB: no acute findings Recurrent GIB 01/06 u/aneg 12/30 BCx 1/2 +CONS, likely contaminant 12/30 UA neg, COVID rapid Ag neg 12/30 CXR 1. Density overlying the bilateral lung apices. May represent pleural thickening, multifocal airspace opacities, versus summation artifact. 01/01 BCx Neg 01/02 BCx Neg Seizure episode -01/10 CT head: Third and lateral ventriculomegaly. Associated enlargement of the extra axial CSF spaces indicates that this is probably due to central volume loss, but the possibility of hydrocephalus should also be considered. At the degree of volume loss is considerably out of proportion to patient's age. Periventricular deep white matter low-attenuation. Probably on the basis of microvascular ischemic change but given patient's age the possibility of demyelinating disease should be considered as well. 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 [facility] will continue to follow. Subjective Allergies: Coded Allergies: CARBAMAZEPINE (Verified Allergy, Unknown, 12/31/19) LORAZEPAM (Verified Allergy, Unknown, 12/31/19) afebrile wbc remains at 11 stool output improving Objective Last 24 Hour Vital Signs Date Time Temp Pulse Resp B/P (MAP) Pulse Ox O2 Delivery O2 Flow Rate FiO2 01/25/20 12:00 30 01/25/20 12:00 92/64 01/25/20 12:00 Mechanical Ventilator 01/25/20 12:00 97.6 54 14 96/61 (73) 100 01/25/20 12:00 56 01/25/20 11:10 48 13 30 01/25/20 09:32 100 01/25/20 08:00 30 01/25/20 08:00 97.3 55 17 97/57 (70) 100 01/25/20 08:00 Mechanical Ventilator 01/25/20 07:41 51 01/25/20 07:09 46 15 30 01/25/20 07:00 97/57 01/25/20 04:00 30 01/25/20 04:00 Mechanical Ventilator 01/25/20 04:00 97.0 75 16 94/74 (81) 100 01/25/20 03:39 70 01/25/20 03:13 59 16 30 01/25/20 00:00 55 01/25/20 00:00 Mechanical Ventilator 01/24/20 23:49 97.2 51 13 102/65 (77) 100 01/24/20 23:34 57 16 30 01/24/20 20:47 93/51 01/24/20 20:00 Mechanical Ventilator 01/24/20 20:00 97.0 47 15 102/57 (72) 100 01/24/20 20:00 30 01/24/20 19:17 51 15 30 01/24/20 19:03 49 01/24/20 16:00 Mechanical Ventilator 01/24/20 16:00 96.8 49 12 103/55 (71) 100 01/24/20 16:00 48 01/24/20 16:00 30 01/24/20 15:05 55 18 30 Height (Feet): 5 Height (Inches): 1.00 Weight (Pounds): 71 General Appearance: no apparent distress Neck: supple Cardiovascular: normal rate Respiratory/Chest: decreased breath sounds Abdomen: hypoactive bowel sounds Extremities: non-tender Laboratory Tests Test 01/24/20 17:26 01/25/20 03:15 01/25/20 12:20 POC Whole Blood Glucose 108 MG/DL (74-106) H 90 MG/DL (74-106) White Blood Count 11.4 K/UL (4.8-10.8) H Red Blood Count 3.69 M/UL (4.20-5.40) L Hemoglobin 11.1 G/DL (12.0-16.0) L Hematocrit 34.7 % (37.0-47.0) L Mean Corpuscular Volume 94 FL (80-99) Mean Corpuscular Hemoglobin 30.1 PG (27.0-31.0) Mean Corpuscular Hemoglobin Concent 32.0 G/DL (32.0-36.0) Red Cell Distribution Width 15.1 % (11.6-14.8) H Platelet Count 373 K/UL (150-450) Mean Platelet Volume 6.4 FL (6.5-10.1) L Neutrophils (%) (Auto) 63.2 % (45.0-75.0) Lymphocytes (%) (Auto) 23.4 % (20.0-45.0) Monocytes (%) (Auto) 5.9 % (1.0-10.0) Eosinophils (%) (Auto) 6.5 % (0.0-3.0) H Basophils (%) (Auto) 1.0 % (0.0-2.0) Current Medications Medications (Trade) Dose Ordered Sig/Villa Route PRN Reason Start Time Stop Time Status Last Admin Dose Admin Acetaminophen (Tylenol) 650 mg Q6H PRN GT Temp >100.5 01/23/20 19:41 01/31/20 19:40 Ascorbic Acid (Vitamin C) 500 mg DAILY GT 01/24/20 09:00 01/31/20 08:59 01/25/20 09:22 Chlorhexidine Gluconate (Isabel-Hex 2%) 1 applic DAILY@2000 TOPIC 01/23/20 20:00 04/22/20 19:59 Dopamine HCl/ Dextrose 250 ml @ 6.038 mls/ hr Q24H IV 01/24/20 21:00 04/23/20 20:59 01/24/20 20:47 Fidaxomicin (Dificid) 200 mg EVERY 12 HOURS ORAL 01/23/20 21:00 01/26/20 09:01 01/25/20 09:22 Gabapentin (Neurontin) 900 mg TID GT 01/24/20 09:00 02/19/20 17:59 01/25/20 12:52 Haloperidol Lactate (Haldol) 5 mg Q6H PRN IM Agitation 01/23/20 19:41 02/15/20 19:40 01/25/20 11:34 Levetiracetam (Keppra) 1,500 mg Q12HR GT 01/23/20 21:00 02/07/20 08:59 01/25/20 09:23 Levothyroxine Sodium (Synthroid) 50 mcg ACBREAKFAST GT 01/24/20 06:30 02/10/20 06:29 01/25/20 06:15 Metronidazole (Flagyl) 500 mg Q8HR GT 01/23/20 22:00 01/26/20 23:59 01/25/20 13:25 Midodrine (Pro-Amatine) 5 mg TID GT 01/24/20 09:00 04/21/20 08:59 01/25/20 12:52 Multivitamins (Multivitamins W/ Minerals 15ml Liquid) 15 ml DAILY GT 01/24/20 09:00 02/23/20 08:59 01/25/20 09:23 Ondansetron HCl (Zofran) 4 mg Q6H PRN GT Nausea & Vomiting 01/23/20 19:42 01/30/20 19:41 Oxcarbazepine (TrileptaL) 300 mg BEDTIME GT 01/23/20 21:00 02/07/20 20:59 01/24/20 20:47 Potassium Chloride (K-Dur) 20 meq TWICE A DAY GT 01/24/20 09:00 04/10/20 08:59 01/25/20 09:21 Thiamine HCl (Vitamin B1) 100 mg DAILY GT 01/24/20 09:00 01/31/20 08:59 01/25/20 09:22 Char Morel M.D. Jan 25, 2020 14:04
[2020-01-25 16:00] VITALS: BP 94/57
--- NOTE | 2020-01-25 19:21 | General Progress Note ---
Assessment/Plan Status: stable, other - Patient is now hypotensive before over 46 she will receive 500 cc of normal saline bolus to be repeated blood pressure remained below 90 further management will be decided following the boluses treatment repeat laboratory tests will be done in kori BISHOP MD Status Narrative Yesterday at midnight patient developed hypotension and bradycardia again and was placed again on dopamine drip at 5 mcg/min Review of the diarrhea and abdominal pain is management to control her C. difficile indicated the diarrhea now has a different etiology We will order again stool for WBCs and stool culture Repeat laboratory tests in kori BISHOP MD Assessment/Plan: Glenny Harrison Subjective Constitutional: Reports: other - Awake alert attentive Cardiovascular: Reports: other - No chest pain or dizziness patient is sitting with her head up and denies any dizziness or shortness of breath Respiratory: Reports: other - No shortness of breath or respiratory distress Gastrointestinal/Abdominal: Reports: no symptoms Genitourinary: Reports: no symptoms Neurologic/Psychiatric: Reports: no symptoms - More awake and more focused than yesterday Endocrine: Reports: no symptoms Allergies: Coded Allergies: CARBAMAZEPINE (Verified Allergy, Unknown, 12/31/19) LORAZEPAM (Verified Allergy, Unknown, 12/31/19) Objective Last 24 Hour Vital Signs Date Time Temp Pulse Resp B/P (MAP) Pulse Ox O2 Delivery O2 Flow Rate FiO2 01/25/20 16:00 Mechanical Ventilator 01/25/20 16:00 94/57 01/25/20 16:00 60 01/25/20 16:00 97.5 52 18 94/57 (69) 100 01/25/20 16:00 30 01/25/20 14:43 58 20 30 01/25/20 12:00 30 01/25/20 12:00 92/64 01/25/20 12:00 Mechanical Ventilator 01/25/20 12:00 97.6 54 14 96/61 (73) 100 01/25/20 12:00 56 01/25/20 11:10 48 13 30 01/25/20 09:32 100 01/25/20 08:00 30 01/25/20 08:00 97.3 55 17 97/57 (70) 100 01/25/20 08:00 Mechanical Ventilator 01/25/20 07:41 51 01/25/20 07:09 46 15 30 01/25/20 07:00 97/57 01/25/20 04:00 30 01/25/20 04:00 Mechanical Ventilator 01/25/20 04:00 97.0 75 16 94/74 (81) 100 01/25/20 03:39 70 01/25/20 03:13 59 16 30 01/25/20 00:00 55 01/25/20 00:00 Mechanical Ventilator 01/24/20 23:49 97.2 51 13 102/65 (77) 100 01/24/20 23:34 57 16 30 01/24/20 20:47 93/51 01/24/20 20:00 Mechanical Ventilator 01/24/20 20:00 97.0 47 15 102/57 (72) 100 01/24/20 20:00 30 01/24/20 19:17 51 15 30 Intake and Output 01/24/20 01/25/20 19:00 07:00 Intake Total 630 ml 729.152 ml Output Total 60 ml 50 ml Balance 570 ml 679.152 ml Intake Free Water 80 ml 100 ml IV Total 24.152 ml Tube Feeding 550 ml 605 ml Stool Total 60 ml 50 ml # Voids 2 2 Laboratory Tests 01/25/20 03:15: White Blood Count 11.4H, Red Blood Count 3.69L, Hemoglobin 11.1L, Hematocrit 34.7L, Mean Corpuscular Volume 94, Mean Corpuscular Hemoglobin 30.1, Mean Corpuscular Hemoglobin Concent 32.0, Red Cell Distribution Width 15.1H, Platelet Count 373, Mean Platelet Volume 6.4L, Neutrophils (%) (Auto) 63.2, Lymphocytes (%) (Auto) 23.4, Monocytes (%) (Auto) 5.9, Eosinophils (%) (Auto) 6.5H, Basophils (%) (Auto) 1.0 01/25/20 12:20: POC Whole Blood Glucose 90 01/25/20 18:08: POC Whole Blood Glucose 102 Height (Feet): 5 Height (Inches): 1.00 Weight (Pounds): 71 General Appearance: no apparent distress, alert, thin EENT: normal ENT inspection Neck: supple Cardiovascular: normal rate, regular rhythm, no gallop/murmur, no JVD, bradycardia Respiratory/Chest: lungs clear, normal breath sounds, no respiratory distress, no accessory muscle use Abdomen: normal bowel sounds, non tender, soft, no organomegaly, no mass, other - But persistent diarrhea watery now for 2 weeks Extremities: non-tender, other - No cyanosis no clubbing and no edema with diffuse muscle wasting Glenny Bishop MD Jan 25, 2020 19:21
[2020-01-25 20:00] VITALS: BP 110/60
[2020-01-25] MEDS: Dyna-Hex 2% Top Sol 2oz TOPIC SCH (20:00)
[2020-01-25] MEDS: OXcarbazepine 150mg tab GT SCH (21:25)
[2020-01-25] MEDS: DOPamine 400mg/250ml 250 ML IV SCH (21:26)
--- NOTE | 2020-01-25 22:49 | Cardiology Progress Note ---
Assessment/Plan Assessment/Plan 1. Hypotension, recurrent, continue midodrine and dopamine drip. 2. Sinus bradycardia, continue dopamine gtt. 3. Anemia of chronic disease 4. Acute renal failure, resolved. 5. GI bleeding due to gastric ulceration. 6. Dysphagia, s/p PEG placement. 7. VDRF, s/p tracheostomy tube placement. Subjective Subjective Sinus bradycardia at rate of 48, on dopamine gtt 5 mcg. On the vent with FiO2 of 30%. Objective Last 24 Hour Vital Signs Date Time Temp Pulse Resp B/P (MAP) Pulse Ox O2 Delivery O2 Flow Rate FiO2 01/25/20 21:26 92/56 01/25/20 20:00 98.0 55 18 110/60 (77) 100 01/25/20 20:00 30 01/25/20 20:00 Mechanical Ventilator 01/25/20 19:33 54 18 30 01/25/20 16:00 Mechanical Ventilator 01/25/20 16:00 94/57 01/25/20 16:00 60 01/25/20 16:00 97.5 52 18 94/57 (69) 100 01/25/20 16:00 30 01/25/20 14:43 58 20 30 01/25/20 12:00 30 01/25/20 12:00 92/64 01/25/20 12:00 Mechanical Ventilator 01/25/20 12:00 97.6 54 14 96/61 (73) 100 01/25/20 12:00 56 01/25/20 11:10 48 13 30 01/25/20 09:32 100 01/25/20 08:00 30 01/25/20 08:00 97.3 55 17 97/57 (70) 100 01/25/20 08:00 Mechanical Ventilator 01/25/20 07:41 51 01/25/20 07:09 46 15 30 01/25/20 07:00 97/57 01/25/20 04:00 30 01/25/20 04:00 Mechanical Ventilator 01/25/20 04:00 97.0 75 16 94/74 (81) 100 01/25/20 03:39 70 01/25/20 03:13 59 16 30 01/25/20 00:00 55 01/25/20 00:00 Mechanical Ventilator 01/24/20 23:49 97.2 51 13 102/65 (77) 100 01/24/20 23:34 57 16 30 Intake and Output 01/24/20 01/25/20 19:00 07:00 Intake Total 630 ml 729.152 ml Output Total 60 ml 50 ml Balance 570 ml 679.152 ml Intake Free Water 80 ml 100 ml IV Total 24.152 ml Tube Feeding 550 ml 605 ml Stool Total 60 ml 50 ml # Voids 2 2 2D Echo: LVEF 65%, RVSP 23 mmHg, Grade I LVDD Laboratory Tests Test 01/25/20 03:15 01/25/20 12:20 01/25/20 18:08 White Blood Count 11.4 K/UL (4.8-10.8) H Red Blood Count 3.69 M/UL (4.20-5.40) L Hemoglobin 11.1 G/DL (12.0-16.0) L Hematocrit 34.7 % (37.0-47.0) L Mean Corpuscular Volume 94 FL (80-99) Mean Corpuscular Hemoglobin 30.1 PG (27.0-31.0) Mean Corpuscular Hemoglobin Concent 32.0 G/DL (32.0-36.0) Red Cell Distribution Width 15.1 % (11.6-14.8) H Platelet Count 373 K/UL (150-450) Mean Platelet Volume 6.4 FL (6.5-10.1) L Neutrophils (%) (Auto) 63.2 % (45.0-75.0) Lymphocytes (%) (Auto) 23.4 % (20.0-45.0) Monocytes (%) (Auto) 5.9 % (1.0-10.0) Eosinophils (%) (Auto) 6.5 % (0.0-3.0) H Basophils (%) (Auto) 1.0 % (0.0-2.0) POC Whole Blood Glucose 90 MG/DL (74-106) 102 MG/DL (74-106) Objective HEENT: PERRLA, EOMI, Trach site with moderate secretions. NECK: Cannot assess JVP, no carotid bruit with normal upstroke. LUNGS: Bilateral rhonchi. CARDIAC: Regular rhythm and rate. Normal S1, S2 with bradycardia, no murmurs, gallops or rubs. ABDOMEN: Soft with G-tube. No hepatomegaly. EXTREMITIES: No edema, clubbing or cyanosis. Desmond Gleason MD Jan 25, 2020 22:49
[2020-01-26] VITALS: BP 91/55
[2020-01-26 04:00] VITALS: BP 90/52
[2020-01-26 05:11] LABS: BASOPHILS % (AUTO) 0.8 % (0.0-2.0); EOSINOPHILS % (AUTO) 5.2 % (0.0-3.0); HEMATOCRIT 35.7 % (37.0-47.0); HEMOGLOBIN 11.4 G/DL (12.0-16.0); LYMPHOCYTES % (AUTO) 20.5 % (20.0-45.0); MEAN CORPUSCULAR VOLUME 94 FL (80-99); NEUTROPHILS % (AUTO) 68.4 % (45.0-75.0); PLATELET COUNT 384 K/UL (150-450); RED BLOOD COUNT 3.81 M/UL (4.20-5.40); RED CELL DISTRIBUTION WIDTH 15.4 % (11.6-14.8); WHITE BLOOD COUNT 11.8 K/UL (4.8-10.8)
[2020-01-26 05:37] LABS: ANION GAP 6 mmol/L (5-15); BLOOD UREA NITROGEN 30 mg/dL (7-18); CALCIUM 9.6 MG/DL (8.5-10.1); CARBON DIOXIDE 30 MMOL/L (21-32); CHLORIDE 108 MMOL/L (98-107); CREATININE 0.4 MG/DL (0.55-1.30); POTASSIUM 4.3 MMOL/L (3.5-5.1); SODIUM 144 MMOL/L (136-145)
[2020-01-26] MEDS: metroNIDAZOLE 500mg tab GT SCH ×3 (06:10→22:16)
[2020-01-26 08:00] VITALS: BP 132/66
--- NOTE | 2020-01-26 08:35 | Hematology/Onc Progress Note ---
Assessment/Plan Assessment/Plan # Thrombocytopenia med related v labs error --> plt trend 167-->61-->227->373 --> meds have been reviewed --> no hep or lovenox (if less than 50k plt) # Anemia rule out underlying gi bleed --> Dr. Carrillo has been consulted-->endosco gastric ulceration --> trend hgb 7-->7.4-->7.9-->8.1->9.6-->8.5->9.1-->10-->11-->10.3-->10.4-->11 --> anemia panel ordered-->reviewed --> prn transfusion --> protonix started # Leukocytosis is likely related to pna on imaging --> abx has been started --> if wbc worsens, consider abx vanc/zosyn--> ceftriaxone-->vanc->fluc/flagyl/ vanc-->flagyl/fidoxomicin --> smear is noted --> wbc 25-->15-->14-->16->7.6-->12-->20->13->11 --> pressors prn # Sepsis --> on abx for pna --> pressors as needed # Pneumonia --> pulm, Dr. 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 care, will follow Subjective Endocrine: Denies: no symptoms, excessive sweating, flushing, intolerance to cold, intolerance to heat, increased hunger, increased thirst, increased urine, unexplained weight gain, unexplained weight loss, other Hematologic/Lymphatic: Denies: no symptoms, anemia, easy bleeding, easy bruising, adenopathy, other Allergies: Coded Allergies: CARBAMAZEPINE (Verified Allergy, Unknown, 12/31/19) LORAZEPAM (Verified Allergy, Unknown, 12/31/19) All Systems: reviewed and negative except above Subjective 01/01 altered, trach, no bleedin wbc improved on abx, seen by gi 01/02 egd study noted, also with plts 61k, have vitaly Armendariz Rn, will recheck cbc 01/03 remains agitated, vitaly rn, no bleeding, cbc noted as well as id recs 01/04 on vent, with melena overnight, no bleeding, vitaly rn, labs reviewed 01/06 on vent, remains agitated, no bleeding, vitaly rn, smear is noted 01/07 on vent, restless, asymptomatic, noncooperative 01/[address] John obtained, reviewed, meds adjusted, eeg pending 01/09 labs noted, no bleeding, ativan has been discontinued, meds reviewed 01/10 trach to vent, agitated, with wrist restraints, no major changes, no bleeding 01/11 labs are reviewed, on trach to vent, no bleeding, agitated overnight, no complaints 01/13 labs noted, no bleeding, is on vent/trach, no bleeding, vitaly rn, labs are noted 01/14 labs are noted, no bleeding, remains on v/t, remains agitated, no bleeding 01/15 is c.diff positive, wbc higher at 21k, labs noted, on abx, reviewed gi, id recs 01/16 remains on vent, wbc is improved, in sr, as abx per id 01/17 recieved dopamine, tube feeds, on soft restraints, no bleeding, vitaly rn 01/18 labs are noted, no bleeding, vitaly rn, no major changes 01/20 on dopamine gtt, with restraints, no major changes, labs noted 01/21 labs reviewed, no bleeding, vitaly rn, no major changes 01/22 transferred to icu for higher loc, dopamine on hold as bp is good, have increased Synthroid 01/23 labs are pending, meds noted, no bleeding, dopamine gtt ongoing, cbc noted 01/24 still nv, no bleeding, labs reviewed, vitaly rn, with rectal tube in place, on dopamine gtt 01/25 is on bipap, nv, no bleeding, remains on low dose pressorm hgb 11 Objective Objective Current Medications Medications (Trade) Dose Ordered Sig/Villa Route PRN Reason Start Time Stop Time Status Last Admin Dose Admin Acetaminophen (Tylenol) 650 mg Q6H PRN GT Temp >100.5 01/23/20 19:41 01/31/20 19:40 Ascorbic Acid (Vitamin C) 500 mg DAILY GT 01/24/20 09:00 9/16/20 08:59 01/25/20 09:22 Dopamine HCl/ Dextrose 250 ml @ 6.038 mls/ hr Q24H IV 01/24/20 21:00 04/23/20 20:59 01/25/20 21:26 Fidaxomicin (Dificid) 200 mg EVERY 12 HOURS ORAL 01/23/20 21:00 01/29/20 21:01 01/25/20 21:28 Gabapentin (Neurontin) 900 mg TID GT 01/24/20 09:00 02/19/20 17:59 01/25/20 18:01 Haloperidol Lactate (Haldol) 5 mg Q6H PRN IM Agitation 01/23/20 19:41 02/15/20 19:40 01/25/20 11:34 Levetiracetam (Keppra) 1,500 mg Q12HR GT 01/23/20 21:00 02/07/20 08:59 01/25/20 21:25 Levothyroxine Sodium (Synthroid) 50 mcg ACBREAKFAST GT 01/24/20 06:30 02/10/20 06:29 01/26/20 06:08 Metronidazole (Flagyl) 500 mg Q8HR GT 01/23/20 22:00 01/26/20 23:59 01/26/20 06:10 Midodrine (Pro-Amatine) 5 mg TID GT 01/24/20 09:00 04/21/20 08:59 01/25/20 18:01 Multivitamins (Multivitamins W/ Minerals 15ml Liquid) 15 ml DAILY GT 01/24/20 09:00 02/23/20 08:59 01/25/20 09:23 Ondansetron HCl (Zofran) 4 mg Q6H PRN GT Nausea & Vomiting 01/23/20 19:42 01/30/20 19:41 Oxcarbazepine (TrileptaL) 300 mg BEDTIME GT 01/23/20 21:00 02/07/20 20:59 01/25/20 21:25 Potassium Chloride (K-Dur) 20 meq TWICE A DAY GT 01/24/20 09:00 04/10/20 08:59 01/25/20 18:01 Thiamine HCl (Vitamin B1) 100 mg DAILY GT 01/24/20 09:00 9/16/20 08:59 01/25/20 09:22 Last 24 Hour Vital Signs Date Time Temp Pulse Resp B/P (MAP) Pulse Ox O2 Delivery O2 Flow Rate FiO2 01/26/20 07:10 59 16 30 01/26/20 04:00 97.2 42 18 90/52 (65) 100 01/26/20 04:00 Mechanical Ventilator 01/26/20 04:00 30 01/26/20 03:36 50 01/26/20 03:21 52 12 30 01/26/20 00:00 97.8 45 18 91/55 (67) 100 01/26/20 00:00 Mechanical Ventilator 01/25/20 23:29 44 01/25/20 23:17 45 12 30 01/25/20 21:26 92/56 01/25/20 20:00 51 01/25/20 20:00 98.0 55 18 110/60 (77) 100 01/25/20 20:00 30 01/25/20 20:00 Mechanical Ventilator 01/25/20 19:33 54 18 30 01/25/20 16:00 Mechanical Ventilator 01/25/20 16:00 94/57 01/25/20 16:00 60 01/25/20 16:00 97.5 52 18 94/57 (69) 100 01/25/20 16:00 30 01/25/20 14:43 58 20 30 01/25/20 12:00 30 01/25/20 12:00 92/64 01/25/20 12:00 Mechanical Ventilator 01/25/20 12:00 97.6 54 14 96/61 (73) 100 01/25/20 12:00 56 01/25/20 11:10 48 13 30 01/25/20 09:32 100 01/25/20 08:00 30 01/25/20 08:00 97.3 55 17 97/57 (70) 100 01/25/20 08:00 Mechanical Ventilator 01/25/20 07:41 51 01/25/20 07:09 46 15 30 01/25/20 07:00 97/57 01/25/20 04:00 30 01/25/20 04:00 Mechanical Ventilator 01/25/20 04:00 97.0 75 16 94/74 (81) 100 01/25/20 03:39 70 01/25/20 03:13 59 16 30 01/25/20 00:00 55 01/25/20 00:00 Mechanical Ventilator 01/24/20 23:49 97.2 51 13 102/65 (77) 100 01/24/20 23:34 57 16 30 01/24/20 20:47 93/51 01/24/20 20:00 Mechanical Ventilator 01/24/20 20:00 97.0 47 15 102/57 (72) 100 01/24/20 20:00 30 01/24/20 19:17 51 15 30 01/24/20 19:03 49 01/24/20 16:00 Mechanical Ventilator 01/24/20 16:00 96.8 49 12 103/55 (71) 100 01/24/20 16:00 48 01/24/20 16:00 30 01/24/20 15:05 55 18 30 01/24/20 12:08 62 18 30 01/24/20 12:07 100 01/24/20 12:00 30 01/24/20 12:00 Mechanical Ventilator 01/24/20 12:00 98.1 76 20 100/54 (69) 100 01/24/20 11:32 72 Intake and Output 01/25/20 01/26/20 19:00 07:00 Intake Total 917.456 ml 719.840 ml Output Total 200 ml Balance 717.456 ml 719.840 ml Intake Free Water 350 ml 100 ml IV Total 72.456 ml 69.840 ml Tube Feeding 495 ml 550 ml Stool Total 200 ml # Voids 1 3 Labs Test 01/24/20 13:49 01/24/20 17:26 01/25/20 03:15 01/25/20 12:20 POC Whole Blood Glucose 72 MG/DL (74-106) 108 MG/DL (74-106) 90 MG/DL (74-106) White Blood Count 11.4 K/UL (4.8-10.8) Red Blood Count 3.69 M/UL (4.20-5.40) Hemoglobin 11.1 G/DL (12.0-16.0) Hematocrit 34.7 % (37.0-47.0) Mean Corpuscular Volume 94 FL (80-99) Mean Corpuscular Hemoglobin 30.1 PG (27.0-31.0) Mean Corpuscular Hemoglobin Concent 32.0 G/DL (32.0-36.0) Red Cell Distribution Width 15.1 % (11.6-14.8) Platelet Count 373 K/UL (150-450) Mean Platelet Volume 6.4 FL (6.5-10.1) Neutrophils (%) (Auto) 63.2 % (45.0-75.0) Lymphocytes (%) (Auto) 23.4 % (20.0-45.0) Monocytes (%) (Auto) 5.9 % (1.0-10.0) Eosinophils (%) (Auto) 6.5 % (0.0-3.0) Basophils (%) (Auto) 1.0 % (0.0-2.0) Test 01/25/20 18:08 01/25/20 23:45 01/26/20 01:19 01/26/20 02:55 POC Whole Blood Glucose 102 MG/DL (74-106) 99 MG/DL (74-106) White Blood Count 11.8 K/UL (4.8-10.8) Red Blood Count 3.81 M/UL (4.20-5.40) Hemoglobin 11.4 G/DL (12.0-16.0) Hematocrit 35.7 % (37.0-47.0) Mean Corpuscular Volume 94 FL (80-99) Mean Corpuscular Hemoglobin 29.9 PG (27.0-31.0) Mean Corpuscular Hemoglobin Concent 32.0 G/DL (32.0-36.0) Red Cell Distribution Width 15.4 % (11.6-14.8) Platelet Count 384 K/UL (150-450) Mean Platelet Volume 6.1 FL (6.5-10.1) Neutrophils (%) (Auto) 68.4 % (45.0-75.0) Lymphocytes (%) (Auto) 20.5 % (20.0-45.0) Monocytes (%) (Auto) 5.0 % (1.0-10.0) Eosinophils (%) (Auto) 5.2 % (0.0-3.0) Basophils (%) (Auto) 0.8 % (0.0-2.0) Sodium Level 144 MMOL/L (136-145) Potassium Level 4.3 MMOL/L (3.5-5.1) Chloride Level 108 MMOL/L (98-107) Carbon Dioxide Level 30 MMOL/L (21-32) Anion Gap 6 mmol/L (5-15) Blood Urea Nitrogen 30 mg/dL (7-18) Creatinine 0.4 MG/DL (0.55-1.30) Estimat Glomerular Filtration Rate > 60 mL/min (>60) Glucose Level 94 MG/DL (74-106) Calcium Level 9.6 MG/DL (8.5-10.1) Lipase 108 U/L (73-393) Test 01/26/20 04:59 POC Whole Blood Glucose 110 MG/DL (74-106) Height (Feet): 5 Height (Inches): 1.00 Weight (Pounds): 71 Objective Vital Signs General Appearance: ++ cachectic, chronically ill HEENT: normocephalic, atraumatic ++ trach Resp: other -. vent ++ Cardiovascular: regular rate, rhythm, no edema Gastrointestinal: gtube in place, without erythema Rectal: other - Hemoccult positive [place]: back normal, gait/station normal, non-tender Lymphatic: no adenopathy Baltazar Cortes MD Jan 26, 2020 08:35
[2020-01-26] MEDS: Ascorbic Acid 500mg tab GT SCH (09:09)
[2020-01-26] MEDS: Thiamine 100mg tab GT SCH (09:09)
[2020-01-26] MEDS: Multivitamins W/Minerals 15 ML UDC GT SCH (09:09)
[2020-01-26] MEDS: levETIRAcetam 500mg/5ml Liquid GT SCH ×2 (09:10→20:37)
[2020-01-26] MEDS: Gabapentin 300 MG/6 ML Soln GT SCH ×3 (09:11→17:24)
--- NOTE | 2020-01-26 09:52 | General Progress Note ---
Assessment/Plan Problem List: (1) G tube feedings ICD Codes: Z93.1 - Gastrostomy status SNOMED: 054710385, 320966724, 272731045 (2) GI bleed ICD Codes: K92.2 - Gastrointestinal hemorrhage, unspecified SNOMED: 16218125 (3) Sepsis ICD Codes: A41.9 - Sepsis, unspecified organism SNOMED: 72975793 (4) Pneumonia ICD Codes: J18.9 - Pneumonia, unspecified organism SNOMED: 204217140 Status: stable, other - Patient is now hypotensive before over 46 she will receive 500 cc of normal saline bolus to be repeated blood pressure remained below 90 further management will be decided following the boluses treatment repeat laboratory tests will be done in a.m. GEM MCKAY MD Assessment/Plan: s/p EGD gastric ulcer no recurrent bleed G TF monitor H&H C. Diff positive off ppi po dificid still has diarrhea on dopamine will fu Subjective ROS Limited/Unobtainable: No Allergies: Coded Allergies: CARBAMAZEPINE (Verified Allergy, Unknown, 12/31/19) LORAZEPAM (Verified Allergy, Unknown, 12/31/19) Objective Last 24 Hour Vital Signs Date Time Temp Pulse Resp B/P (MAP) Pulse Ox O2 Delivery O2 Flow Rate FiO2 01/26/20 07:10 59 16 30 01/26/20 04:00 97.2 42 18 90/52 (65) 100 01/26/20 04:00 Mechanical Ventilator 01/26/20 04:00 30 01/26/20 03:36 50 01/26/20 03:21 52 12 30 01/26/20 00:00 97.8 45 18 91/55 (67) 100 01/26/20 00:00 Mechanical Ventilator 01/25/20 23:29 44 01/25/20 23:17 45 12 30 01/25/20 21:26 92/56 01/25/20 20:00 51 01/25/20 20:00 98.0 55 18 110/60 (77) 100 01/25/20 20:00 30 01/25/20 20:00 Mechanical Ventilator 01/25/20 19:33 54 18 30 01/25/20 16:00 Mechanical Ventilator 01/25/20 16:00 94/57 01/25/20 16:00 60 01/25/20 16:00 97.5 52 18 94/57 (69) 100 01/25/20 16:00 30 01/25/20 14:43 58 20 30 01/25/20 12:00 30 01/25/20 12:00 92/64 01/25/20 12:00 Mechanical Ventilator 01/25/20 12:00 97.6 54 14 96/61 (73) 100 01/25/20 12:00 56 01/25/20 11:10 48 13 30 Intake and Output 01/25/20 01/26/20 19:00 07:00 Intake Total 917.456 ml 719.840 ml Output Total 200 ml Balance 717.456 ml 719.840 ml Intake Free Water 350 ml 100 ml IV Total 72.456 ml 69.840 ml Tube Feeding 495 ml 550 ml Stool Total 200 ml # Voids 1 3 Laboratory Tests 01/25/20 12:20: POC Whole Blood Glucose 90 01/25/20 18:08: POC Whole Blood Glucose 102 01/25/20 23:45: Stool Fat Screen [Pending] 01/26/20 01:19: POC Whole Blood Glucose 99 01/26/20 02:55: White Blood Count 11.8H, Red Blood Count 3.81L, Hemoglobin 11.4L, Hematocrit 35.7L, Mean Corpuscular Volume 94, Mean Corpuscular Hemoglobin 29.9, Mean Corpuscular Hemoglobin Concent 32.0, Red Cell Distribution Width 15.4H, Platelet Count 384, Mean Platelet Volume 6.1L, Neutrophils (%) (Auto) 68.4, Lymphocytes (%) (Auto) 20.5, Monocytes (%) (Auto) 5.0, Eosinophils (%) (Auto) 5.2H, Basophils (%) (Auto) 0.8, Sodium Level 144, Potassium Level 4.3, Chloride Level 108H, Carbon Dioxide Level 30, Anion Gap 6, Blood Urea Nitrogen 30H, Creatinine 0.4L, Estimat Glomerular Filtration Rate > 60, Glucose Level 94, Calcium Level 9.6, Lipase 108 01/26/20 04:59: POC Whole Blood Glucose 110H Height (Feet): 5 Height (Inches): 1.00 Weight (Pounds): 71 General Appearance: no apparent distress EENT: normal ENT inspection Neck: supple Cardiovascular: normal rate Respiratory/Chest: decreased breath sounds Abdomen: normal bowel sounds, non tender, soft Extremities: non-tender Satish Carrillo MD Jan 26, 2020 09:52
--- NOTE | 2020-01-26 10:22 | Cardiology Progress Note ---
Assessment/Plan Assessment/Plan 1. Hypotension, recurrent, continue midodrine and dopamine drip. 2. Sinus bradycardia, continue dopamine gtt. 3. Anemia of chronic disease 4. Acute renal failure, resolved. 5. GI bleeding due to gastric ulceration. 6. Dysphagia, s/p PEG placement. 7. VDRF, s/p tracheostomy tube placement. Subjective Subjective Sinus bradycardia at rate of 52, on dopamine gtt 5 mcg. On the vent with FiO2 of 30%. Objective Last 24 Hour Vital Signs Date Time Temp Pulse Resp B/P (MAP) Pulse Ox O2 Delivery O2 Flow Rate FiO2 01/26/20 07:10 59 16 30 01/26/20 04:00 97.2 42 18 90/52 (65) 100 01/26/20 04:00 Mechanical Ventilator 01/26/20 04:00 30 01/26/20 03:36 50 01/26/20 03:21 52 12 30 01/26/20 00:00 97.8 45 18 91/55 (67) 100 01/26/20 00:00 Mechanical Ventilator 01/25/20 23:29 44 01/25/20 23:17 45 12 30 01/25/20 21:26 92/56 01/25/20 20:00 51 01/25/20 20:00 98.0 55 18 110/60 (77) 100 01/25/20 20:00 30 01/25/20 20:00 Mechanical Ventilator 01/25/20 19:33 54 18 30 01/25/20 16:00 Mechanical Ventilator 01/25/20 16:00 94/57 01/25/20 16:00 60 01/25/20 16:00 97.5 52 18 94/57 (69) 100 01/25/20 16:00 30 01/25/20 14:43 58 20 30 01/25/20 12:00 30 01/25/20 12:00 92/64 01/25/20 12:00 Mechanical Ventilator 01/25/20 12:00 97.6 54 14 96/61 (73) 100 01/25/20 12:00 56 01/25/20 11:10 48 13 30 Intake and Output 01/25/20 01/26/20 19:00 07:00 Intake Total 917.456 ml 719.840 ml Output Total 200 ml Balance 717.456 ml 719.840 ml Intake Free Water 350 ml 100 ml IV Total 72.456 ml 69.840 ml Tube Feeding 495 ml 550 ml Stool Total 200 ml # Voids 1 3 2D Echo: LVEF 65%, RVSP 23 mmHg, Grade I LVDD Laboratory Tests Test 01/25/20 12:20 01/25/20 18:08 01/25/20 23:45 01/26/20 01:19 POC Whole Blood Glucose 90 MG/DL (74-106) 102 MG/DL (74-106) 99 MG/DL (74-106) Stool Fat Screen Pending Test 01/26/20 02:55 01/26/20 04:59 White Blood Count 11.8 K/UL (4.8-10.8) H Red Blood Count 3.81 M/UL (4.20-5.40) L Hemoglobin 11.4 G/DL (12.0-16.0) L Hematocrit 35.7 % (37.0-47.0) L Mean Corpuscular Volume 94 FL (80-99) Mean Corpuscular Hemoglobin 29.9 PG (27.0-31.0) Mean Corpuscular Hemoglobin Concent 32.0 G/DL (32.0-36.0) Red Cell Distribution Width 15.4 % (11.6-14.8) H Platelet Count 384 K/UL (150-450) Mean Platelet Volume 6.1 FL (6.5-10.1) L Neutrophils (%) (Auto) 68.4 % (45.0-75.0) Lymphocytes (%) (Auto) 20.5 % (20.0-45.0) Monocytes (%) (Auto) 5.0 % (1.0-10.0) Eosinophils (%) (Auto) 5.2 % (0.0-3.0) H Basophils (%) (Auto) 0.8 % (0.0-2.0) Sodium Level 144 MMOL/L (136-145) Potassium Level 4.3 MMOL/L (3.5-5.1) Chloride Level 108 MMOL/L (98-107) H Carbon Dioxide Level 30 MMOL/L (21-32) Anion Gap 6 mmol/L (5-15) Blood Urea Nitrogen 30 mg/dL (7-18) H Creatinine 0.4 MG/DL (0.55-1.30) L Estimat Glomerular Filtration Rate > 60 mL/min (>60) Glucose Level 94 MG/DL (74-106) Calcium Level 9.6 MG/DL (8.5-10.1) Lipase 108 U/L (73-393) POC Whole Blood Glucose 110 MG/DL (74-106) H Objective HEENT: PERRLA, EOMI, Trach site with moderate secretions. NECK: Cannot assess JVP, no carotid bruit with normal upstroke. LUNGS: Bilateral rhonchi. CARDIAC: Regular rhythm and rate. Normal S1, S2 with bradycardia, no murmurs, gallops or rubs. ABDOMEN: Soft with G-tube. No hepatomegaly. EXTREMITIES: No edema, clubbing or cyanosis. Desmond Gleason MD Jan 26, 2020 10:22
--- NOTE | 2020-01-26 11:03 | Pulmonology Progress Note ---
Ivanna Mora [employer] 01/26/20 1103: Subjective ROS Limited/Unobtainable: Yes Allergies: Coded Allergies: CARBAMAZEPINE (Verified Allergy, Unknown, 12/31/19) LORAZEPAM (Verified Allergy, Unknown, 12/31/19) All Systems: reviewed and negative except above Subjective in [facility] back on Dopamine gtt also on Midodrine no fevers no signs of resp distress on current settings Objective Last 24 Hour Vital Signs Date Time Temp Pulse Resp B/P (MAP) Pulse Ox O2 Delivery O2 Flow Rate FiO2 01/26/20 10:50 45 15 30 01/26/20 09:15 100 01/26/20 07:10 59 16 30 01/26/20 04:00 97.2 42 18 90/52 (65) 100 01/26/20 04:00 Mechanical Ventilator 01/26/20 04:00 30 01/26/20 03:36 50 01/26/20 03:21 52 12 30 01/26/20 00:00 97.8 45 18 91/55 (67) 100 01/26/20 00:00 Mechanical Ventilator 01/25/20 23:29 44 01/25/20 23:17 45 12 30 01/25/20 21:26 92/56 01/25/20 20:00 51 01/25/20 20:00 98.0 55 18 110/60 (77) 100 01/25/20 20:00 30 01/25/20 20:00 Mechanical Ventilator 01/25/20 19:33 54 18 30 01/25/20 16:00 Mechanical Ventilator 01/25/20 16:00 94/57 01/25/20 16:00 60 01/25/20 16:00 97.5 52 18 94/57 (69) 100 01/25/20 16:00 30 01/25/20 14:43 58 20 30 01/25/20 12:00 30 01/25/20 12:00 92/64 01/25/20 12:00 Mechanical Ventilator 01/25/20 12:00 97.6 54 14 96/61 (73) 100 01/25/20 12:00 56 01/25/20 11:10 48 13 30 Intake and Output 01/25/20 01/26/20 19:00 07:00 Intake Total 917.456 ml 719.840 ml Output Total 200 ml Balance 717.456 ml 719.840 ml Intake Free Water 350 ml 100 ml IV Total 72.456 ml 69.840 ml Tube Feeding 495 ml 550 ml Stool Total 200 ml # Voids 1 3 Objective General Appearance: bedridden, pale, chronically ill looking, older than her biological age ; vent dependent female ; on vent SIMV 450-30%-12, PEEP 5 Lines, tubes and drains: trach HEENT: normocephalic, atraumatic Neck: trach - Portex #7, secretions small amount, yellow color, thin consistency Respiratory/Chest: CTAB Cardiovascular/Chest: regular rate, regular rhythm Abdomen: non tender, soft, G tube Genitourinary/Rectal: [place] Extremities: no edema, muscle atrophy Neurologic: abnormal gait, poorly responsive, more awake , eyes open Musculoskeletal: atrophy BLE Skin: multiple tattoos Laboratory Tests 01/25/20 12:20: POC Whole Blood Glucose 90 01/25/20 18:08: POC Whole Blood Glucose 102 01/25/20 23:45: Stool Fat Screen [Pending] 01/26/20 01:19: POC Whole Blood Glucose 99 01/26/20 02:55: White Blood Count 11.8H, Red Blood Count 3.81L, Hemoglobin 11.4L, Hematocrit 35.7L, Mean Corpuscular Volume 94, Mean Corpuscular Hemoglobin 29.9, Mean Corpuscular Hemoglobin Concent 32.0, Red Cell Distribution Width 15.4H, Platelet Count 384, Mean Platelet Volume 6.1L, Neutrophils (%) (Auto) 68.4, Lymphocytes (%) (Auto) 20.5, Monocytes (%) (Auto) 5.0, Eosinophils (%) (Auto) 5.2H, Basophils (%) (Auto) 0.8, Sodium Level 144, Potassium Level 4.3, Chloride Level 108H, Carbon Dioxide Level 30, Anion Gap 6, Blood Urea Nitrogen 30H, Creatinine 0.4L, Estimat Glomerular Filtration Rate > 60, Glucose Level 94, Calcium Level 9.6, Lipase 108 01/26/20 04:59: POC Whole Blood Glucose 110H Current Medications Medications (Trade) Dose Ordered Sig/Villa Route PRN Reason Start Time Stop Time Status Last Admin Dose Admin Acetaminophen (Tylenol) 650 mg Q6H PRN GT Temp >100.5 01/23/20 19:41 01/31/20 19:40 Ascorbic Acid (Vitamin C) 500 mg DAILY GT 01/24/20 09:00 01/31/20 08:59 01/26/20 09:09 Dopamine HCl/ Dextrose 250 ml @ 6.038 mls/ hr Q24H IV 01/24/20 21:00 04/23/20 20:59 01/25/20 21:26 Fidaxomicin (Dificid) 200 mg EVERY 12 HOURS ORAL 01/23/20 21:00 01/29/20 21:01 01/26/20 09:11 Gabapentin (Neurontin) 900 mg TID GT 01/24/20 09:00 02/19/20 17:59 01/26/20 09:11 Haloperidol Lactate (Haldol) 5 mg Q6H PRN IM Agitation 01/23/20 19:41 02/15/20 19:40 01/25/20 11:34 Levetiracetam (Keppra) 1,500 mg Q12HR GT 01/23/20 21:00 02/07/20 08:59 01/26/20 09:10 Levothyroxine Sodium (Synthroid) 50 mcg ACBREAKFAST GT 01/24/20 06:30 02/10/20 06:29 01/26/20 06:08 Metronidazole (Flagyl) 500 mg Q8HR GT 01/23/20 22:00 01/26/20 23:59 01/26/20 06:10 Midodrine (Pro-Amatine) 5 mg TID GT 01/24/20 09:00 04/21/20 08:59 01/26/20 09:10 Multivitamins (Multivitamins W/ Minerals 15ml Liquid) 15 ml DAILY GT 01/24/20 09:00 02/23/20 08:59 01/26/20 09:09 Ondansetron HCl (Zofran) 4 mg Q6H PRN GT Nausea & Vomiting 01/23/20 19:42 01/30/20 19:41 Oxcarbazepine (TrileptaL) 300 mg BEDTIME GT 01/23/20 21:00 02/07/20 20:59 01/25/20 21:25 Potassium Chloride (K-Dur) 20 meq TWICE A DAY GT 01/24/20 09:00 04/10/20 08:59 01/26/20 09:11 Thiamine HCl (Vitamin B1) 100 mg DAILY GT 01/24/20 09:00 01/31/20 08:59 01/26/20 09:09 Assessment/Plan Assessment/Plan ASSESSMENT VDRF/trach status Sepsis Possible pneumonia UTI recurrent GI bleeding C dif colitis Anemia secondary to GI bleeding Aspiration risk Dysphagia, feeding by G-tube Encephalopathy Acute kidney injury likely secondary to dehydration Recurrent bradycardia persistent Hypotension Electrolyte imbalance Severe protein calorie malnutrition Hx of hypertension History of CVA Seizure disorder with witnessed seizure episode 01/07 Psychiatric disorder Presumed scabies, s/p Rx Thrombocytopenia-transient- resolved PLAN OF CARE back in [facility] from ICU back on Dopamine and on Midodrine due to persistent hypotension and recurrent bradycardia vent support, pulm toilet ABG stable on current settings, on SIMV mode 450-30-12 PEEP5 , no signs of resp distress on these settings keep settings as is and titrate as needed now tachypneic intermittently ABG repeated 01/14 due to tachypnea- remains stable CXR 01/13 stable pulm toilet via HHN Theophylline level was high -25; ->was dc prior leuk now trending down , no fevers, possibly due to C dif pancx-per ID CXR 01/13- no acute findings KUB 01/13- no acute findings UA + yeast , 01/12 UCX +yeast, started on Fluconazole 01/14 as per ID - completed BCX 01/12 NGTD abx as per ID recs Vanco po was prior dc and switched to Dificid , also on Flagyl per GI inflammatory markers : ESR-42, CRP- wnl prior BCX 05/18 +CONS likely contaminant, off Vanco ; repeated BCX 01/01 and 01/02 NGTD SCX + Proteus , was on Ceftriaxone as per ID recs for poss SBP in setting of GI bleeding - completed BCX 01/01 and 01/02 NGTD stool C dif 01/07 +, on oral vanco rapid COVID 19 NGT in ED aspiration precautions Venous Duplex BLE -negative, get SCD ( unable to give a/c given anemia) closely monitor hemodynamic status Protonix IV GT feeding stool OB positive transfuse to keep Hgb > 7. heme and GI follows s/p EGD 01/01 -> gastric ulcer across G tube site , no active bleeding HH at baseline monitor for any further episodes of Gi bleeding trend LFT-> trended down, hep panel NGT hx of cirrhosis- per GI management hypotension-> Midodrine, s/p IV fluids, back on Dopamine gtt bradycardia cardio follows monitor renal parameters, lytes, avoid nephrotoxic BUN trending down, creat stable, likely prerenal due to dehydration replace e/lytes as per nephro recs monitor volumes seizure precautions, antiepileptic optimized as per neuro recs ammonia 49, fup with further neuro recs EEG - grossly abnormal; mild to mod encephalopathy, single ictal episode CT head no acute IC pathology BP management with current regimen SNF meds supportive care dietary recs s/p 12/31 Rx for presumed scabies with permethrin and Ivermectin, repeated Ivermectin 01/08 case discussed and evaluated by supervising physician Raul Esparza MD 01/26/20 1648: Subjective Allergies: Coded Allergies: CARBAMAZEPINE (Verified Allergy, Unknown, 12/31/19) LORAZEPAM (Verified Allergy, Unknown, 12/31/19) Assessment/Plan Assessment/Plan Patient seen and examined with [employer]. Agree with above A&P as it reflects our joint deliberations. Ivanna Mora NP Jan 26, 2020 11:03 Raul Esparza MD Jan 26, 2020 16:48
[2020-01-26 12:00] VITALS: BP 98/60
--- NOTE | 2020-01-26 12:38 | Nephrology Progress Note ---
Assessment/Plan Problem List: (1) RICHARD (acute kidney injury) (2) Dehydration (3) Anemia (4) GI bleed (5) Malnutrition (6) Seizure disorder (7) Electrolyte imbalance Assessment Renal failure, in the form of prerenal azotemia, most likely secondary to GI bleed GI bleed, leading to severe anemia Sepsis, pneumonia Chronic tracheostomy, ventilator dependent History of CVA History of seizure disorder History of psychiatric disorder Severe malnutrition Electrolyte abnormalities Plan January 25: Status quo. Labs reviewed. Continue per consultants. January 24: Status unchanged. Labs reviewed. Remains stable from renal standpoint of view. January 23: Back in [facility]. Stable from renal standpoint of view. Continue per consultants. January 22: Patient in ICU now. Vital signs and heart rate and blood pressure appears to be stable. Patient had an episode of bradycardia but it was resolved. TSH level today is very low will cut down on Synthroid dose. January 21: Today's labs are reviewed. Stable renal parameters. Continue per consultants. January 20: Labs reviewed. Renal parameters stable. January 19: Labs reviewed. Stable from renal standpoint. January 18: No labs done today. Continue per consultants. Medications reviewed. January 17: Late note entry due to system problem at the [facility] [place] [place] today.Chemistry panel reviewed. Stable from renal standpoint of view. Continue per current management. January 16: No can panel today. Check lab tomorrow. Remains stable from renal standpoint of view. January 15: Lab reviewed. Renal parameters stable. January 14: Lab reviewed. Renal parameters stable. January 13: Labs reviewed. Stable from renal standpoint of view. January 12: Labs reviewed. Stable from renal standpoint of view January 11: No labs drawn today stable from renal standpoint of view January 10: Labs reviewed. Potassium supplement given. Continue per consultants. January 09: Lab reviewed. Potassium supplement given. IV fluid discontinued. January 08: Lab reviewed. Renal parameters stable. Continue per consultants. January 07: Lab reviewed. Renal parameters stable. Continue per consultants. January 06: Lab reviewed. Stable from renal standpoint of view. January 05: Labs reviewed. Stable from renal standpoint of view. Continue per consultants. January 04: No labs drawn today. Will check labs tomorrow. Continue per consultants. January 03: Lab reviewed. Renal parameters stable. IV fluid discontinued. High LFTs declining. Continue same. January 02: Lab reviewed. Renal parameters stable. Continue per PMD and consultants. LFTs remain elevated. Continue to monitor. Continue slow hydration Discontinue blood pressure medications as her blood pressure is low Discontinue diuretics Monitor renal parameters Transfusion as needed GI evaluation Correct electrolyte abnormalities Check B12 level, folate, and thyroid function tests: Results noted Subjective ROS Limited/Unobtainable: Yes Objective Objective Last 24 Hour Vital Signs Date Time Temp Pulse Resp B/P (MAP) Pulse Ox O2 Delivery O2 Flow Rate FiO2 01/26/20 10:50 45 15 30 01/26/20 09:15 100 01/26/20 08:00 30 01/26/20 08:00 97.5 63 15 132/66 (88) 100 01/26/20 08:00 Mechanical Ventilator 01/26/20 07:10 59 16 30 01/26/20 04:00 97.2 42 18 90/52 (65) 100 01/26/20 04:00 Mechanical Ventilator 01/26/20 04:00 30 01/26/20 03:36 50 01/26/20 03:21 52 12 30 01/26/20 00:00 97.8 45 18 91/55 (67) 100 01/26/20 00:00 Mechanical Ventilator 01/25/20 23:29 44 01/25/20 23:17 45 12 30 01/25/20 21:26 92/56 01/25/20 20:00 51 01/25/20 20:00 98.0 55 18 110/60 (77) 100 01/25/20 20:00 30 01/25/20 20:00 Mechanical Ventilator 01/25/20 19:33 54 18 30 01/25/20 16:00 Mechanical Ventilator 01/25/20 16:00 94/57 01/25/20 16:00 60 01/25/20 16:00 97.5 52 18 94/57 (69) 100 01/25/20 16:00 30 01/25/20 14:43 58 20 30 Intake and Output 01/25/20 01/26/20 19:00 07:00 Intake Total 917.456 ml 719.840 ml Output Total 200 ml Balance 717.456 ml 719.840 ml Intake Free Water 350 ml 100 ml IV Total 72.456 ml 69.840 ml Tube Feeding 495 ml 550 ml Stool Total 200 ml # Voids 1 3 Laboratory Tests 01/25/20 18:08: POC Whole Blood Glucose 102 01/25/20 23:45: Stool Fat Screen [Pending] 01/26/20 01:19: POC Whole Blood Glucose 99 01/26/20 02:55: White Blood Count 11.8H, Red Blood Count 3.81L, Hemoglobin 11.4L, Hematocrit 35.7L, Mean Corpuscular Volume 94, Mean Corpuscular Hemoglobin 29.9, Mean Corpuscular Hemoglobin Concent 32.0, Red Cell Distribution Width 15.4H, Platelet Count 384, Mean Platelet Volume 6.1L, Neutrophils (%) (Auto) 68.4, Lymphocytes (%) (Auto) 20.5, Monocytes (%) (Auto) 5.0, Eosinophils (%) (Auto) 5.2H, Basophils (%) (Auto) 0.8, Sodium Level 144, Potassium Level 4.3, Chloride Level 108H, Carbon Dioxide Level 30, Anion Gap 6, Blood Urea Nitrogen 30H, Creatinine 0.4L, Estimat Glomerular Filtration Rate > 60, Glucose Level 94, Calcium Level 9.6, Lipase 108 01/26/20 04:59: POC Whole Blood Glucose 110H 01/26/20 11:39: POC Whole Blood Glucose 86 Height (Feet): 5 Height (Inches): 1.00 Weight (Pounds): 71 General Appearance: no apparent distress EENT: other - Vented Cardiovascular: normal rate Respiratory/Chest: decreased breath sounds Abdomen: distended Objective No change Chivo Holloway MD Jan 26, 2020 12:38
--- NOTE | 2020-01-26 14:25 | Infectious Diseases Prog Note ---
Assessment/Plan 39yo F with: Sepsis Fever to 101.5>>Low grade ; SP Possible pna on CXR Leukocytosis; recurrent; increased- now improvign -01/13 CXR: no acute disease -01/12 u/a wbc tnct, nit neg, latrell +3; ucx >100k C. tropicalis Bcx NTD Cdiff colitis -Cdif toxin + -01/13 KUB: no acute findings Recurrent GIB 01/06 u/aneg 12/30 BCx 1/2 +CONS, likely contaminant 12/30 UA neg, COVID rapid Ag neg 12/30 CXR 1. Density overlying the bilateral lung apices. May represent pleural thickening, multifocal airspace opacities, versus summation artifact. 01/01 BCx Neg 01/02 BCx Neg Seizure episode -01/10 CT head: Third and lateral ventriculomegaly. Associated enlargement of the extra axial CSF spaces indicates that this is probably due to central volume loss, but the possibility of hydrocephalus should also be considered. At the degree of volume loss is considerably out of proportion to patient's age. Periventricular deep white matter low-attenuation. Probably on the basis of microvascular ischemic change but given patient's age the possibility of demyelinating disease should be considered as well. 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 [facility] will continue to follow. Subjective Allergies: Coded Allergies: CARBAMAZEPINE (Verified Allergy, Unknown, 12/31/19) LORAZEPAM (Verified Allergy, Unknown, 12/31/19) afebrile wbc remains at 11 Objective Last 24 Hour Vital Signs Date Time Temp Pulse Resp B/P (MAP) Pulse Ox O2 Delivery O2 Flow Rate FiO2 01/26/20 12:00 41 01/26/20 12:00 30 01/26/20 12:00 Mechanical Ventilator 01/26/20 12:00 97.5 63 14 98/60 (73) 100 01/26/20 10:50 45 15 30 01/26/20 09:15 100 01/26/20 08:00 52 01/26/20 08:00 30 01/26/20 08:00 97.5 63 15 132/66 (88) 100 01/26/20 08:00 Mechanical Ventilator 01/26/20 07:10 59 16 30 01/26/20 04:00 97.2 42 18 90/52 (65) 100 01/26/20 04:00 Mechanical Ventilator 01/26/20 04:00 30 01/26/20 03:36 50 01/26/20 03:21 52 12 30 01/26/20 00:00 97.8 45 18 91/55 (67) 100 01/26/20 00:00 Mechanical Ventilator 01/25/20 23:29 44 01/25/20 23:17 45 12 30 01/25/20 21:26 92/56 01/25/20 20:00 51 01/25/20 20:00 98.0 55 18 110/60 (77) 100 01/25/20 20:00 30 01/25/20 20:00 Mechanical Ventilator 01/25/20 19:33 54 18 30 01/25/20 16:00 Mechanical Ventilator 01/25/20 16:00 94/57 01/25/20 16:00 60 01/25/20 16:00 97.5 52 18 94/57 (69) 100 01/25/20 16:00 30 01/25/20 14:43 58 20 30 Height (Feet): 5 Height (Inches): 1.00 Weight (Pounds): 71 General Appearance: no apparent distress Neck: supple Cardiovascular: normal rate Respiratory/Chest: decreased breath sounds Abdomen: hypoactive bowel sounds Extremities: non-tender Laboratory Tests Test 01/25/20 18:08 01/25/20 23:45 01/26/20 01:19 01/26/20 02:55 POC Whole Blood Glucose 102 MG/DL (74-106) 99 MG/DL (74-106) Stool Fat Screen Pending White Blood Count 11.8 K/UL (4.8-10.8) H Red Blood Count 3.81 M/UL (4.20-5.40) L Hemoglobin 11.4 G/DL (12.0-16.0) L Hematocrit 35.7 % (37.0-47.0) L Mean Corpuscular Volume 94 FL (80-99) Mean Corpuscular Hemoglobin 29.9 PG (27.0-31.0) Mean Corpuscular Hemoglobin Concent 32.0 G/DL (32.0-36.0) Red Cell Distribution Width 15.4 % (11.6-14.8) H Platelet Count 384 K/UL (150-450) Mean Platelet Volume 6.1 FL (6.5-10.1) L Neutrophils (%) (Auto) 68.4 % (45.0-75.0) Lymphocytes (%) (Auto) 20.5 % (20.0-45.0) Monocytes (%) (Auto) 5.0 % (1.0-10.0) Eosinophils (%) (Auto) 5.2 % (0.0-3.0) H Basophils (%) (Auto) 0.8 % (0.0-2.0) Sodium Level 144 MMOL/L (136-145) Potassium Level 4.3 MMOL/L (3.5-5.1) Chloride Level 108 MMOL/L (98-107) H Carbon Dioxide Level 30 MMOL/L (21-32) Anion Gap 6 mmol/L (5-15) Blood Urea Nitrogen 30 mg/dL (7-18) H Creatinine 0.4 MG/DL (0.55-1.30) L Estimat Glomerular Filtration Rate > 60 mL/min (>60) Glucose Level 94 MG/DL (74-106) Calcium Level 9.6 MG/DL (8.5-10.1) Lipase 108 U/L (73-393) Test 01/26/20 04:59 01/26/20 11:39 POC Whole Blood Glucose 110 MG/DL (74-106) H 86 MG/DL (74-106) Current Medications Medications (Trade) Dose Ordered Sig/Villa Route PRN Reason Start Time Stop Time Status Last Admin Dose Admin Acetaminophen (Tylenol) 650 mg Q6H PRN GT Temp >100.5 01/23/20 19:41 01/31/20 19:40 Ascorbic Acid (Vitamin C) 500 mg DAILY GT 01/24/20 09:00 01/31/20 08:59 01/26/20 09:09 Dopamine HCl/ Dextrose 250 ml @ 6.038 mls/ hr Q24H IV 01/24/20 21:00 04/23/20 20:59 01/25/20 21:26 Fidaxomicin (Dificid) 200 mg EVERY 12 HOURS ORAL 01/23/20 21:00 01/29/20 21:01 01/26/20 09:11 Gabapentin (Neurontin) 900 mg TID GT 01/24/20 09:00 02/19/20 17:59 01/26/20 13:57 Haloperidol Lactate (Haldol) 5 mg Q6H PRN IM Agitation 01/23/20 19:41 02/15/20 19:40 01/25/20 11:34 Levetiracetam (Keppra) 1,500 mg Q12HR GT 01/23/20 21:00 02/07/20 08:59 01/26/20 09:10 Levothyroxine Sodium (Synthroid) 50 mcg ACBREAKFAST GT 01/24/20 06:30 02/10/20 06:29 01/26/20 06:08 Metronidazole (Flagyl) 500 mg Q8HR GT 01/23/20 22:00 01/26/20 23:59 01/26/20 13:57 Midodrine (Pro-Amatine) 5 mg TID GT 01/24/20 09:00 04/21/20 08:59 01/26/20 13:57 Multivitamins (Multivitamins W/ Minerals 15ml Liquid) 15 ml DAILY GT 01/24/20 09:00 02/23/20 08:59 01/26/20 09:09 Ondansetron HCl (Zofran) 4 mg Q6H PRN GT Nausea & Vomiting 01/23/20 19:42 01/30/20 19:41 Oxcarbazepine (TrileptaL) 300 mg BEDTIME GT 01/23/20 21:00 02/07/20 20:59 01/25/20 21:25 Potassium Chloride (K-Dur) 20 meq TWICE A DAY GT 01/24/20 09:00 04/10/20 08:59 01/26/20 09:11 Thiamine HCl (Vitamin B1) 100 mg DAILY GT 01/24/20 09:00 01/31/20 08:59 01/26/20 09:09 Char Morel M.D. Jan 26, 2020 14:25
--- NOTE | 2020-01-26 14:50 | Surgery Progress Note ---
Surgery Progress Note Subjective Additional Comments no acute events leukocytosis no n/v/f/c Objective Last 24 Hour Vital Signs Date Time Temp Pulse Resp B/P (MAP) Pulse Ox O2 Delivery O2 Flow Rate FiO2 01/26/20 12:00 41 01/26/20 12:00 30 01/26/20 12:00 Mechanical Ventilator 01/26/20 12:00 97.5 63 14 98/60 (73) 100 01/26/20 10:50 45 15 30 01/26/20 09:15 100 01/26/20 08:00 52 01/26/20 08:00 30 01/26/20 08:00 97.5 63 15 132/66 (88) 100 01/26/20 08:00 Mechanical Ventilator 01/26/20 07:10 59 16 30 01/26/20 04:00 97.2 42 18 90/52 (65) 100 01/26/20 04:00 Mechanical Ventilator 01/26/20 04:00 30 01/26/20 03:36 50 01/26/20 03:21 52 12 30 01/26/20 00:00 97.8 45 18 91/55 (67) 100 01/26/20 00:00 Mechanical Ventilator 01/25/20 23:29 44 01/25/20 23:17 45 12 30 01/25/20 21:26 92/56 01/25/20 20:00 51 01/25/20 20:00 98.0 55 18 110/60 (77) 100 01/25/20 20:00 30 01/25/20 20:00 Mechanical Ventilator 01/25/20 19:33 54 18 30 01/25/20 16:00 Mechanical Ventilator 01/25/20 16:00 94/57 01/25/20 16:00 60 01/25/20 16:00 97.5 52 18 94/57 (69) 100 01/25/20 16:00 30 I&O Intake and Output 01/25/20 01/26/20 19:00 07:00 Intake Total 917.456 ml 719.840 ml Output Total 200 ml Balance 717.456 ml 719.840 ml Intake Free Water 350 ml 100 ml IV Total 72.456 ml 69.840 ml Tube Feeding 495 ml 550 ml Stool Total 200 ml # Voids 1 3 Dressing: other Wound: other Cardiovascular: RSR Respiratory: decreased breath sounds Abdomen: soft, non-tender, present bowel sounds Extremities: no edema, no tenderness, no cyanosis Laboratory Tests Test 01/25/20 18:08 01/25/20 23:45 01/26/20 01:19 01/26/20 02:55 POC Whole Blood Glucose 102 MG/DL (74-106) 99 MG/DL (74-106) Stool Fat Screen Pending White Blood Count 11.8 K/UL (4.8-10.8) H Red Blood Count 3.81 M/UL (4.20-5.40) L Hemoglobin 11.4 G/DL (12.0-16.0) L Hematocrit 35.7 % (37.0-47.0) L Mean Corpuscular Volume 94 FL (80-99) Mean Corpuscular Hemoglobin 29.9 PG (27.0-31.0) Mean Corpuscular Hemoglobin Concent 32.0 G/DL (32.0-36.0) Red Cell Distribution Width 15.4 % (11.6-14.8) H Platelet Count 384 K/UL (150-450) Mean Platelet Volume 6.1 FL (6.5-10.1) L Neutrophils (%) (Auto) 68.4 % (45.0-75.0) Lymphocytes (%) (Auto) 20.5 % (20.0-45.0) Monocytes (%) (Auto) 5.0 % (1.0-10.0) Eosinophils (%) (Auto) 5.2 % (0.0-3.0) H Basophils (%) (Auto) 0.8 % (0.0-2.0) Sodium Level 144 MMOL/L (136-145) Potassium Level 4.3 MMOL/L (3.5-5.1) Chloride Level 108 MMOL/L (98-107) H Carbon Dioxide Level 30 MMOL/L (21-32) Anion Gap 6 mmol/L (5-15) Blood Urea Nitrogen 30 mg/dL (7-18) H Creatinine 0.4 MG/DL (0.55-1.30) L Estimat Glomerular Filtration Rate > 60 mL/min (>60) Glucose Level 94 MG/DL (74-106) Calcium Level 9.6 MG/DL (8.5-10.1) Lipase 108 U/L (73-393) Test 01/26/20 04:59 01/26/20 11:39 POC Whole Blood Glucose 110 MG/DL (74-106) H 86 MG/DL (74-106) Plan Problems: (1) Pneumonia (2) Sepsis Assessment & Plan: leukocytosis anemia lactic acidosis agree with GI recommend EGD planned for 12/31 hold feeding for now trend h/h monitor for bleeding no acute hemorrhage will be available in event needs exploration for hemostasis prbc as per heme thank you will follow with recs cont abx worsening wbc wbc trending down comfortable appearing no n/v hypotensive in ICU again PICC ordered Pt presented on admission in emaciated state. Pt has tracheostomy and GT. NO skin concerns noted to skin under collar of trach. NO erythema or evidence of skin erosion at GT site. Pt noted to have scaly pimple-like rash with webbing noted to R and L axillae, undersides of both breasts, Bilat groin and lower back. Tracking and webbing noted to hands and feet. Pt restless and scratching at skin. Non-Blanching erythema without induration or fluctuance noted to R and L hips and trochanteric areas.Non-blanching erythema noted along spine. Non-Blanching erythema without induration noted to Sacrum. Non-Blanching erythema noted to R and L Malleoli and both heels. Tx.Plan: Please apply Cavilon Skin Barrier to each bony Prominences at risks for Skin Breakdown. Cover each area with Optifoam drsgs. Change every 7 days and prn. Apply Moisture Barrier Paste to Sacrum. Cover with Optifoam drsg. Change every 3 days and prn. Reposition at least every 2hours or as tolerated. Off-load heels with pillow. APM/EMELI Mattress overlay. improving cont current care plan There is marked enlargement of the third and lateral ventricles and extra axial CSF spaces, in particular the former. There is considerable periventricular deep white matter low-attenuation. Otherwise normal mobley-white differentiation. No acute hemorrhage or edema. No mass effect nor midline shift. Visualized orbits and sinuses are unremarkable. The calvarium is intact Impression: Third and lateral ventriculomegaly. Associated enlargement of the extra axial CSF spaces indicates that this is probably due to central volume loss, but the possibility of hydrocephalus should also be considered. At the degree of volume loss is considerably out of proportion to patient's age. Correlate with clinical history Periventricular deep white matter low-attenuation. Probably on the basis of microvascular ischemic change but given patient's age the possibility of demyelinating disease should be considered as well. Negative for acute intracranial bleed or mass effect (3) GI bleed (4) G tube feedings Assessment & Plan: DAILY ESTIMATED NEEDS: Needs based on Underweight, critical care 37.3kg 30-40 kcals/kg 4670-0929 total kcals 1.25-2 g protein/kg 47-75 g total protein 25-35 mL/kg 933-1306 total fluid mLs NUTRITION DIAGNOSIS: Increased kcal and pro needs r/t underweight status as evidenced by BMI 14.1, pt is 68% of ideal body weight w/ generalized severe wasting, trach and peg dep. CURRENT TF:Vital AF 1.2 @55 x20 hrs ENTERAL NUTRITION RECOMMENDATIONS: Vital AF 1.2 @ 55ml/hr x20 hrs to provide 1100ml 1320kcal 83g prot, 892ml free water - Rec to continue elemental TF formula while stool C-diff positive, +LBM - HOLD 1HR BEFORE AND AFTER SYNTHROID MEDS - Flush per MD. HOB over 30 degrees ADDITIONAL RECOMMENDATIONS: 1) Per SNF: 5'4" and 81# Maintain calibrated bed scale wts w/ added P200 mattress 2) Lytes daily madhav w/ loose stools, replete as needed 3) Skin integrity: Continue BRIAN VIA GT BID + Vit C 4) Accuchecks for Hypoglycemia 5) Add probiotics for stool C-diff+ . George Woods Jan 26, 2020 14:50
[2020-01-26 16:00] VITALS: BP 91/50
[2020-01-26] MEDS: DOPamine 400mg/250ml 250 ML IV SCH (18:20)
[2020-01-26 20:00] VITALS: BP 109/68
[2020-01-26] MEDS: OXcarbazepine 150mg tab GT SCH (20:37)
[2020-01-27] VITALS: BP 101/60
[2020-01-27 04:00] VITALS: BP 111/78
[2020-01-27 05:38] LABS: BASOPHILS % (AUTO) 0.5 % (0.0-2.0); EOSINOPHILS % (AUTO) 3.6 % (0.0-3.0); HEMATOCRIT 39.9 % (37.0-47.0); HEMOGLOBIN 12.9 G/DL (12.0-16.0); LYMPHOCYTES % (AUTO) 17.1 % (20.0-45.0); MEAN CORPUSCULAR VOLUME 93 FL (80-99); MONOCYTES % (AUTO) 4.5 % (1.0-10.0); NEUTROPHILS % (AUTO) 74.3 % (45.0-75.0); PLATELET COUNT 415 K/UL (150-450); RED BLOOD COUNT 4.28 M/UL (4.20-5.40); RED CELL DISTRIBUTION WIDTH 15.1 % (11.6-14.8); WHITE BLOOD COUNT 14.4 K/UL (4.8-10.8)
[2020-01-27] MEDS: metroNIDAZOLE 500mg tab GT SCH ×3 (05:39→22:18)
[2020-01-27 08:00] VITALS: BP 121/71
[2020-01-27] MEDS: Multivitamins W/Minerals 15 ML UDC GT SCH (09:08)
[2020-01-27] MEDS: levETIRAcetam 500mg/5ml Liquid GT SCH ×2 (09:08→20:41)
[2020-01-27] MEDS: Ascorbic Acid 500mg tab GT SCH (09:08)
[2020-01-27] MEDS: Thiamine 100mg tab GT SCH (09:08)
[2020-01-27] MEDS: Gabapentin 300 MG/6 ML Soln GT SCH ×3 (09:09→17:33)
--- NOTE | 2020-01-27 10:29 | Pulmonology Progress Note ---
Ivanna Mora ASSOCIATE PROFESSOR OF COUNSELING 01/27/20 1029: Subjective ROS Limited/Unobtainable: Yes Allergies: Coded Allergies: CARBAMAZEPINE (Verified Allergy, Unknown, 12/31/19) LORAZEPAM (Verified Allergy, Unknown, 12/31/19) All Systems: reviewed and negative except above Subjective in [facility] still on Dopamine gtt also on Midodrine no signs of resp distress on current settings no fevers , leuk up to 14 this am Objective Last 24 Hour Vital Signs Date Time Temp Pulse Resp B/P (MAP) Pulse Ox O2 Delivery O2 Flow Rate FiO2 01/27/20 09:33 100 01/27/20 08:00 30 01/27/20 08:00 80 01/27/20 08:00 97.2 85 20 121/71 (88) 100 01/27/20 07:20 90 22 30 01/27/20 06:00 65 01/27/20 04:00 65 01/27/20 04:00 Mechanical Ventilator 01/27/20 04:00 98.0 60 24 111/78 (89) 94 01/27/20 04:00 30 01/27/20 02:59 76 20 30 01/27/20 00:00 30 01/27/20 00:00 97.9 54 19 101/60 (74) 96 01/27/20 00:00 54 01/27/20 00:00 Mechanical Ventilator 01/26/20 22:55 52 18 30 01/26/20 20:00 45 01/26/20 20:00 97.6 50 19 109/68 (82) 100 01/26/20 20:00 30 01/26/20 20:00 Mechanical Ventilator 01/26/20 19:00 42 14 30 01/26/20 18:20 96/62 01/26/20 16:00 97.8 47 20 91/50 (64) 100 01/26/20 16:00 Mechanical Ventilator 01/26/20 16:00 60 01/26/20 16:00 30 01/26/20 15:20 51 20 30 01/26/20 12:00 41 01/26/20 12:00 30 01/26/20 12:00 Mechanical Ventilator 01/26/20 12:00 97.5 63 14 98/60 (73) 100 01/26/20 10:50 45 15 30 Intake and Output 01/26/20 01/27/20 19:00 07:00 Intake Total 755.380 ml 980.372 ml Output Total 200 ml 100 ml Balance 555.380 ml 880.372 ml Intake Free Water 200 ml 300 ml IV Total 60.380 ml 75.372 ml Tube Feeding 495 ml 605 ml Output Urine Total 50 ml Stool Total 150 ml 100 ml # Voids 2 Objective General Appearance: bedridden, pale, chronically ill looking, older than her biological age ; vent dependent female ; on vent SIMV 450-30%-12, PEEP 5 Lines, tubes and drains: trach HEENT: normocephalic, atraumatic Neck: trach - Portex #7, secretions small amount, yellow color, thin consistency Respiratory/Chest: CTAB Cardiovascular/Chest: regular rate, regular rhythm Abdomen: non tender, soft, G tube Genitourinary/Rectal: [place] Extremities: no edema, muscle atrophy Neurologic: abnormal gait, poorly responsive, more awake , eyes open Musculoskeletal: atrophy BLE Skin: multiple tattoos Laboratory Tests 01/26/20 11:39: POC Whole Blood Glucose 86 01/27/20 00:35: POC Whole Blood Glucose 105 01/27/20 03:25: White Blood Count 14.4H, Red Blood Count 4.28, Hemoglobin 12.9, Hematocrit 39.9 , Mean Corpuscular Volume 93, Mean Corpuscular Hemoglobin 30.1, Mean Corpuscular Hemoglobin Concent 32.3, Red Cell Distribution Width 15.1H, Platelet Count 415, Mean Platelet Volume 6.0L, Neutrophils (%) (Auto) 74.3, Lymphocytes (%) (Auto) 17.1L, Monocytes (%) (Auto) 4.5, Eosinophils (%) (Auto) 3.6H, Basophils (%) (Auto) 0.5 01/27/20 06:27: POC Whole Blood Glucose 239H 01/27/20 06:30: POC Whole Blood Glucose [Pending] Current Medications Medications (Trade) Dose Ordered Sig/Villa Route PRN Reason Start Time Stop Time Status Last Admin Dose Admin Acetaminophen (Tylenol) 650 mg Q6H PRN GT Temp >100.5 01/23/20 19:41 01/31/20 19:40 Ascorbic Acid (Vitamin C) 500 mg DAILY GT 01/24/20 09:00 01/31/20 08:59 01/27/20 09:08 Dopamine HCl/ Dextrose 250 ml @ 6.281 mls/ hr Q24H IV 01/26/20 18:00 04/23/20 17:59 01/26/20 18:20 Fidaxomicin (Dificid) 200 mg EVERY 12 HOURS ORAL 01/23/20 21:00 01/29/20 21:01 01/27/20 09:07 Gabapentin (Neurontin) 900 mg TID GT 01/24/20 09:00 02/19/20 17:59 01/27/20 09:09 Haloperidol Lactate (Haldol) 5 mg Q6H PRN IM Agitation 01/23/20 19:41 02/15/20 19:40 01/25/20 11:34 Levetiracetam (Keppra) 1,500 mg Q12HR GT 01/23/20 21:00 02/07/20 08:59 01/27/20 09:08 Levothyroxine Sodium (Synthroid) 50 mcg ACBREAKFAST GT 01/24/20 06:30 02/10/20 06:29 01/27/20 05:39 Metronidazole (Flagyl) 500 mg Q8HR GT 01/23/20 22:00 01/29/20 23:59 01/27/20 05:39 Midodrine (Pro-Amatine) 5 mg TID GT 01/24/20 09:00 04/21/20 08:59 01/27/20 09:09 Multivitamins (Multivitamins W/ Minerals 15ml Liquid) 15 ml DAILY GT 01/24/20 09:00 02/23/20 08:59 01/27/20 09:08 Ondansetron HCl (Zofran) 4 mg Q6H PRN GT Nausea & Vomiting 01/23/20 19:42 01/30/20 19:41 Oxcarbazepine (TrileptaL) 300 mg BEDTIME GT 01/23/20 21:00 02/07/20 20:59 01/26/20 20:37 Potassium Chloride (K-Dur) 20 meq TWICE A DAY GT 01/24/20 09:00 04/10/20 08:59 01/27/20 09:09 Thiamine HCl (Vitamin B1) 100 mg DAILY GT 01/24/20 09:00 01/31/20 08:59 01/27/20 09:08 Assessment/Plan Assessment/Plan ASSESSMENT VDRF/trach status Sepsis Possible pneumonia UTI recurrent GI bleeding C dif colitis Anemia secondary to GI bleeding Aspiration risk Dysphagia, feeding by G-tube Encephalopathy Acute kidney injury likely secondary to dehydration Recurrent bradycardia persistent Hypotension Electrolyte imbalance Severe protein calorie malnutrition Hx of hypertension History of CVA Seizure disorder with witnessed seizure episode 01/07 Psychiatric disorder Presumed scabies, s/p Rx Thrombocytopenia-transient- resolved PLAN OF CARE back in [facility] from ICU back on Dopamine and on Midodrine due to persistent hypotension and recurrent bradycardia vent support, pulm toilet ABG stable on current settings, on SIMV mode 450-30-12 PEEP5 , no signs of resp distress on these settings keep settings as is and titrate as needed now tachypneic intermittently ABG repeated 01/14 due to tachypnea- remains stable CXR 01/13 stable pulm toilet via HHN Theophylline level was high -25; ->was dc prior fup with CXR Wednesday leuk uo , possibly due to C dif pancx-per ID CXR 01/13- no acute findings KUB 01/13- no acute findings UA + yeast , 01/12 UCX +yeast, started on Fluconazole 01/14 as per ID - completed BCX 01/12 NGTD abx as per ID recs Vanco po was prior dc and switched to Dificid , also on Flagyl per GI -till 01/28 inflammatory markers : ESR-42, CRP- wnl prior BCX 1/ +CONS likely contaminant, off Vanco ; repeated BCX 01/01 and 01/02 NGTD SCX + Proteus , was on Ceftriaxone as per ID recs for poss SBP in setting of GI bleeding - completed BCX 01/01 and 01/02 NGTD stool C dif 01/07 +, on oral vanco rapid COVID 19 NGT in ED aspiration precautions Venous Duplex BLE -negative, get SCD ( unable to give a/c given anemia) closely monitor hemodynamic status Protonix IV GT feeding stool OB positive transfuse to keep Hgb > 7. heme and GI follows s/p EGD 01/01 -> gastric ulcer across G tube site , no active bleeding HH at baseline monitor for any further episodes of Gi bleeding trend LFT-> trended down, hep panel NGT hx of cirrhosis- per GI management hypotension-> Midodrine, s/p IV fluids, back on Dopamine gtt bradycardia cardio follows monitor renal parameters, lytes, avoid nephrotoxic BUN trending down, creat stable, likely prerenal due to dehydration replace e/lytes as per nephro recs monitor volumes seizure precautions, antiepileptic optimized as per neuro recs ammonia 49, fup with further neuro recs EEG - grossly abnormal; mild to mod encephalopathy, single ictal episode CT head no acute IC pathology BP management with current regimen SNF meds supportive care dietary recs s/p 12/31 Rx for presumed scabies with permethrin and Ivermectin, repeated Ivermectin 01/08 case discussed and evaluated by supervising physician Jeyson Anderson MD 01/27/20 1338: Subjective Allergies: Coded Allergies: CARBAMAZEPINE (Verified Allergy, Unknown, 12/31/19) LORAZEPAM (Verified Allergy, Unknown, 12/31/19) Assessment/Plan Assessment/Plan Patient seen and examined with ASSOCIATE PROFESSOR OF COUNSELING. Agree with above A&P as it reflects our joint deliberations. Ivanna Mora NP Jan 27, 2020 10:29 Jeyson Anderson MD Jan 27, 2020 13:38
--- NOTE | 2020-01-27 11:05 | Nephrology Progress Note ---
Assessment/Plan Problem List: (1) RICHARD (acute kidney injury) (2) Dehydration (3) Anemia (4) GI bleed (5) Malnutrition (6) Seizure disorder (7) Electrolyte imbalance Assessment Renal failure, in the form of prerenal azotemia, most likely secondary to GI bleed GI bleed, leading to severe anemia Sepsis, pneumonia Chronic tracheostomy, ventilator dependent History of CVA History of seizure disorder History of psychiatric disorder Severe malnutrition Electrolyte abnormalities Plan January 26: Continue to monitor renal parameters. Patient remains on ventilator. Patient is full code. Continue per consultants. January 25: Status quo. Labs reviewed. Continue per consultants. January 24: Status unchanged. Labs reviewed. Remains stable from renal standpoint of view. January 23: Back in [facility]. Stable from renal standpoint of view. Continue per consultants. January 22: Patient in ICU now. Vital signs and heart rate and blood pressure appears to be stable. Patient had an episode of bradycardia but it was resolved. TSH level today is very low will cut down on Synthroid dose. January 21: Today's labs are reviewed. Stable renal parameters. Continue per consultants. January 20: Labs reviewed. Renal parameters stable. January 19: Labs reviewed. Stable from renal standpoint. January 18: No labs done today. Continue per consultants. Medications reviewed. January 17: Late note entry due to system problem at the [facility] today.Chemistry panel reviewed. Stable from renal standpoint of view. Continue per current management. January 16: No can panel today. Check lab tomorrow. Remains stable from renal standpoint of view. January 15: Lab reviewed. Renal parameters stable. January 14: Lab reviewed. Renal parameters stable. January 13: Labs reviewed. Stable from renal standpoint of view. January 12: Labs reviewed. Stable from renal standpoint of view January 11: No labs drawn today stable from renal standpoint of view January 10: Labs reviewed. Potassium supplement given. Continue per consultants. January 09: Lab reviewed. Potassium supplement given. IV fluid discontinued. January 08: Lab reviewed. Renal parameters stable. Continue per consultants. January 07: Lab reviewed. Renal parameters stable. Continue per consultants. January 06: Lab reviewed. Stable from renal standpoint of view. January 05: Labs reviewed. Stable from renal standpoint of view. Continue per consultants. January 04: No labs drawn today. Will check labs tomorrow. Continue per consultants. January 03: Lab reviewed. Renal parameters stable. IV fluid discontinued. High LFTs declining. Continue same. January 02: Lab reviewed. Renal parameters stable. Continue per PMD and consultants. LFTs remain elevated. Continue to monitor. Continue slow hydration Discontinue blood pressure medications as her blood pressure is low Discontinue diuretics Monitor renal parameters Transfusion as needed GI evaluation Correct electrolyte abnormalities Check B12 level, folate, and thyroid function tests: Results noted Subjective ROS Limited/Unobtainable: Yes Objective Objective Last 24 Hour Vital Signs Date Time Temp Pulse Resp B/P (MAP) Pulse Ox O2 Delivery O2 Flow Rate FiO2 01/27/20 09:33 100 01/27/20 08:00 30 01/27/20 08:00 80 01/27/20 08:00 97.2 85 20 121/71 (88) 100 01/27/20 07:20 90 22 30 01/27/20 06:00 65 01/27/20 04:00 65 01/27/20 04:00 Mechanical Ventilator 01/27/20 04:00 98.0 60 24 111/78 (89) 94 01/27/20 04:00 30 01/27/20 02:59 76 20 30 01/27/20 00:00 30 01/27/20 00:00 97.9 54 19 101/60 (74) 96 01/27/20 00:00 54 01/27/20 00:00 Mechanical Ventilator 01/26/20 22:55 52 18 30 01/26/20 20:00 45 01/26/20 20:00 97.6 50 19 109/68 (82) 100 01/26/20 20:00 30 01/26/20 20:00 Mechanical Ventilator 01/26/20 19:00 42 14 30 01/26/20 18:20 96/62 01/26/20 16:00 97.8 47 20 91/50 (64) 100 01/26/20 16:00 Mechanical Ventilator 01/26/20 16:00 60 01/26/20 16:00 30 01/26/20 15:20 51 20 30 01/26/20 12:00 41 01/26/20 12:00 30 01/26/20 12:00 Mechanical Ventilator 01/26/20 12:00 97.5 63 14 98/60 (73) 100 Intake and Output 01/26/20 01/27/20 19:00 07:00 Intake Total 755.380 ml 980.372 ml Output Total 200 ml 100 ml Balance 555.380 ml 880.372 ml Intake Free Water 200 ml 300 ml IV Total 60.380 ml 75.372 ml Tube Feeding 495 ml 605 ml Output Urine Total 50 ml Stool Total 150 ml 100 ml # Voids 2 Laboratory Tests 01/26/20 11:39: POC Whole Blood Glucose 86 01/27/20 00:35: POC Whole Blood Glucose 105 01/27/20 03:25: White Blood Count 14.4H, Red Blood Count 4.28, Hemoglobin 12.9, Hematocrit 39.9 , Mean Corpuscular Volume 93, Mean Corpuscular Hemoglobin 30.1, Mean Corpuscular Hemoglobin Concent 32.3, Red Cell Distribution Width 15.1H, Platelet Count 415, Mean Platelet Volume 6.0L, Neutrophils (%) (Auto) 74.3, Lymphocytes (%) (Auto) 17.1L, Monocytes (%) (Auto) 4.5, Eosinophils (%) (Auto) 3.6H, Basophils (%) (Auto) 0.5 01/27/20 06:27: POC Whole Blood Glucose 239H 01/27/20 06:30: POC Whole Blood Glucose [Pending] Height (Feet): 5 Height (Inches): 1.00 Weight (Pounds): 71 General Appearance: no apparent distress EENT: other - Vented Cardiovascular: tachycardia Respiratory/Chest: decreased breath sounds Abdomen: distended Objective No change Chivo Holloway MD Jan 27, 2020 11:05
[2020-01-27 12:00] VITALS: BP 133/76
--- NOTE | 2020-01-27 12:23 | Surgery Progress Note ---
Surgery Progress Note Subjective Additional Comments no acute events comfortable stable labs noted Objective Last 24 Hour Vital Signs Date Time Temp Pulse Resp B/P (MAP) Pulse Ox O2 Delivery O2 Flow Rate FiO2 01/27/20 09:33 100 01/27/20 08:00 30 01/27/20 08:00 Mechanical Ventilator 01/27/20 08:00 80 01/27/20 08:00 97.2 85 20 121/71 (88) 100 01/27/20 07:20 90 22 30 01/27/20 06:00 65 01/27/20 04:00 65 01/27/20 04:00 Mechanical Ventilator 01/27/20 04:00 98.0 60 24 111/78 (89) 94 01/27/20 04:00 30 01/27/20 02:59 76 20 30 01/27/20 00:00 30 01/27/20 00:00 97.9 54 19 101/60 (74) 96 01/27/20 00:00 54 01/27/20 00:00 Mechanical Ventilator 01/26/20 22:55 52 18 30 01/26/20 20:00 45 01/26/20 20:00 97.6 50 19 109/68 (82) 100 01/26/20 20:00 30 01/26/20 20:00 Mechanical Ventilator 01/26/20 19:00 42 14 30 01/26/20 18:20 96/62 01/26/20 16:00 97.8 47 20 91/50 (64) 100 01/26/20 16:00 Mechanical Ventilator 01/26/20 16:00 60 01/26/20 16:00 30 01/26/20 15:20 51 20 30 I&O Intake and Output 01/26/20 01/27/20 19:00 07:00 Intake Total 755.380 ml 980.372 ml Output Total 200 ml 100 ml Balance 555.380 ml 880.372 ml Intake Free Water 200 ml 300 ml IV Total 60.380 ml 75.372 ml Tube Feeding 495 ml 605 ml Output Urine Total 50 ml Stool Total 150 ml 100 ml # Voids 2 Dressing: other Wound: other Cardiovascular: RSR Respiratory: decreased breath sounds Abdomen: soft, non-tender, present bowel sounds Extremities: no tenderness, no cyanosis Laboratory Tests Test 01/27/20 00:35 9/12/20 03:25 01/27/20 06:27 01/27/20 06:30 POC Whole Blood Glucose 105 MG/DL (74-106) 239 MG/DL (74-106) H Pending White Blood Count 14.4 K/UL (4.8-10.8) H Red Blood Count 4.28 M/UL (4.20-5.40) Hemoglobin 12.9 G/DL (12.0-16.0) Hematocrit 39.9 % (37.0-47.0) Mean Corpuscular Volume 93 FL (80-99) Mean Corpuscular Hemoglobin 30.1 PG (27.0-31.0) Mean Corpuscular Hemoglobin Concent 32.3 G/DL (32.0-36.0) Red Cell Distribution Width 15.1 % (11.6-14.8) H Platelet Count 415 K/UL (150-450) Mean Platelet Volume 6.0 FL (6.5-10.1) L Neutrophils (%) (Auto) 74.3 % (45.0-75.0) Lymphocytes (%) (Auto) 17.1 % (20.0-45.0) L Monocytes (%) (Auto) 4.5 % (1.0-10.0) Eosinophils (%) (Auto) 3.6 % (0.0-3.0) H Basophils (%) (Auto) 0.5 % (0.0-2.0) Plan Problems: (1) Pneumonia (2) Sepsis Assessment & Plan: leukocytosis anemia lactic acidosis agree with GI recommend EGD planned for 12/31 hold feeding for now trend h/h monitor for bleeding no acute hemorrhage will be available in event needs exploration for hemostasis prbc as per heme thank you will follow with recs cont abx worsening wbc wbc trending down comfortable appearing no n/v hypotensive in ICU again PICC ordered Pt presented on admission in emaciated state. Pt has tracheostomy and GT. NO skin concerns noted to skin under collar of trach. NO erythema or evidence of skin erosion at GT site. Pt noted to have scaly pimple-like rash with webbing noted to R and L axillae, undersides of both breasts, Bilat groin and lower back. Tracking and webbing noted to hands and feet. Pt restless and scratching at skin. Non-Blanching erythema without induration or fluctuance noted to R and L hips and trochanteric areas.Non-blanching erythema noted along spine. Non-Blanching erythema without induration noted to Sacrum. Non-Blanching erythema noted to R and L Malleoli and both heels. Tx.Plan: Please apply Cavilon Skin Barrier to each bony Prominences at risks for Skin Breakdown. Cover each area with Optifoam drsgs. Change every 7 days and prn. Apply Moisture Barrier Paste to Sacrum. Cover with Optifoam drsg. Change every 3 days and prn. Reposition at least every 2hours or as tolerated. Off-load heels with pillow. APM/EMELI Mattress overlay. improving cont current care plan There is marked enlargement of the third and lateral ventricles and extra axial CSF spaces, in particular the former. There is considerable periventricular deep white matter low-attenuation. Otherwise normal mobley-white differentiation. No acute hemorrhage or edema. No mass effect nor midline shift. Visualized orbits and sinuses are unremarkable. The calvarium is intact Impression: Third and lateral ventriculomegaly. Associated enlargement of the extra axial CSF spaces indicates that this is probably due to central volume loss, but the possibility of hydrocephalus should also be considered. At the degree of volume loss is considerably out of proportion to patient's age. Correlate with clinical history Periventricular deep white matter low-attenuation. Probably on the basis of microvascular ischemic change but given patient's age the possibility of demyelinating disease should be considered as well. Negative for acute intracranial bleed or mass effect (3) GI bleed (4) G tube feedings Assessment & Plan: DAILY ESTIMATED NEEDS: Needs based on Underweight, critical care 37.3kg 30-40 kcals/kg 4718-3283 total kcals 1.25-2 g protein/kg 47-75 g total protein 25-35 mL/kg 933-1306 total fluid mLs NUTRITION DIAGNOSIS: Increased kcal and pro needs r/t underweight status as evidenced by BMI 14.1, pt is 68% of ideal body weight w/ generalized severe wasting, trach and peg dep. CURRENT TF:Vital AF 1.2 @55 x20 hrs ENTERAL NUTRITION RECOMMENDATIONS: Vital AF 1.2 @ 55ml/hr x20 hrs to provide 1100ml 1320kcal 83g prot, 892ml free water - Rec to continue elemental TF formula while stool C-diff positive, +LBM - HOLD 1HR BEFORE AND AFTER SYNTHROID MEDS - Flush per MD. HOB over 30 degrees ADDITIONAL RECOMMENDATIONS: 1) Per SNF: 5'4" and 81# Maintain calibrated bed scale wts w/ added P200 mattress 2) Lytes daily madhav w/ loose stools, replete as needed 3) Skin integrity: Continue BRIAN VIA GT BID + Vit C 4) Accuchecks for Hypoglycemia 5) Add probiotics for stool C-diff+ . George Woods Jan 27, 2020 12:23
[2020-01-27 16:12] VITALS: BP 110/68
--- NOTE | 2020-01-27 16:57 | Infectious Diseases Prog Note ---
Assessment/Plan 39yo F with: Sepsis Fever to 101.5>>Low grade ; SP Possible pna on CXR Leukocytosis; recurrent; increased- now improvign -01/13 CXR: no acute disease -01/12 u/a wbc tnct, nit neg, latrell +3; ucx >100k C. tropicalis Bcx NTD Cdiff colitis -Cdif toxin + -01/13 KUB: no acute findings Recurrent GIB 01/06 u/aneg 12/30 BCx 1/2 +CONS, likely contaminant 12/30 UA neg, COVID rapid Ag neg 12/30 CXR 1. Density overlying the bilateral lung apices. May represent pleural thickening, multifocal airspace opacities, versus summation artifact. 01/01 BCx Neg 01/02 BCx Neg Seizure episode -01/10 CT head: Third and lateral ventriculomegaly. Associated enlargement of the extra axial CSF spaces indicates that this is probably due to central volume loss, but the possibility of hydrocephalus should also be considered. At the degree of volume loss is considerably out of proportion to patient's age. Periventricular deep white matter low-attenuation. Probably on the basis of microvascular ischemic change but given patient's age the possibility of demyelinating disease should be considered as well. 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 [facility] will continue to follow. Subjective Allergies: Coded Allergies: CARBAMAZEPINE (Verified Allergy, Unknown, 12/31/19) LORAZEPAM (Verified Allergy, Unknown, 12/31/19) afebrile wbc increased Objective Last 24 Hour Vital Signs Date Time Temp Pulse Resp B/P (MAP) Pulse Ox O2 Delivery O2 Flow Rate FiO2 01/27/20 16:37 107 01/27/20 16:12 97.7 108 25 110/68 (82) 100 01/27/20 16:03 30 01/27/20 16:01 Mechanical Ventilator 01/27/20 15:10 86 23 30 01/27/20 12:00 Mechanical Ventilator 01/27/20 12:00 30 01/27/20 12:00 94 01/27/20 12:00 97.2 82 17 133/76 (95) 100 01/27/20 11:10 85 14 30 01/27/20 09:33 100 01/27/20 08:00 30 01/27/20 08:00 Mechanical Ventilator 01/27/20 08:00 80 01/27/20 08:00 97.2 85 20 121/71 (88) 100 01/27/20 07:20 90 22 30 01/27/20 06:00 65 01/27/20 04:00 65 01/27/20 04:00 Mechanical Ventilator 01/27/20 04:00 98.0 60 24 111/78 (89) 94 01/27/20 04:00 30 01/27/20 02:59 76 20 30 01/27/20 00:00 30 01/27/20 00:00 97.9 54 19 101/60 (74) 96 01/27/20 00:00 54 01/27/20 00:00 Mechanical Ventilator 01/26/20 22:55 52 18 30 01/26/20 20:00 45 01/26/20 20:00 97.6 50 19 109/68 (82) 100 01/26/20 20:00 30 01/26/20 20:00 Mechanical Ventilator 01/26/20 19:00 42 14 30 01/26/20 18:20 96/62 Height (Feet): 5 Height (Inches): 1.00 Weight (Pounds): 71 General Appearance: no apparent distress Neck: supple Cardiovascular: normal rate Respiratory/Chest: decreased breath sounds Abdomen: hypoactive bowel sounds Extremities: non-tender Microbiology Date/Time Source Procedure Growth Status 01/25/20 23:45 Stool WBC Smear - Final Complete Laboratory Tests Test 01/27/20 00:35 01/27/20 03:25 01/27/20 06:27 01/27/20 06:30 POC Whole Blood Glucose 105 MG/DL (74-106) 239 MG/DL (74-106) H Pending White Blood Count 14.4 K/UL (4.8-10.8) H Red Blood Count 4.28 M/UL (4.20-5.40) Hemoglobin 12.9 G/DL (12.0-16.0) Hematocrit 39.9 % (37.0-47.0) Mean Corpuscular Volume 93 FL (80-99) Mean Corpuscular Hemoglobin 30.1 PG (27.0-31.0) Mean Corpuscular Hemoglobin Concent 32.3 G/DL (32.0-36.0) Red Cell Distribution Width 15.1 % (11.6-14.8) H Platelet Count 415 K/UL (150-450) Mean Platelet Volume 6.0 FL (6.5-10.1) L Neutrophils (%) (Auto) 74.3 % (45.0-75.0) Lymphocytes (%) (Auto) 17.1 % (20.0-45.0) L Monocytes (%) (Auto) 4.5 % (1.0-10.0) Eosinophils (%) (Auto) 3.6 % (0.0-3.0) H Basophils (%) (Auto) 0.5 % (0.0-2.0) Current Medications Medications (Trade) Dose Ordered Sig/Villa Route PRN Reason Start Time Stop Time Status Last Admin Dose Admin Acetaminophen (Tylenol) 650 mg Q6H PRN GT Temp >100.5 01/23/20 19:41 01/31/20 19:40 Ascorbic Acid (Vitamin C) 500 mg DAILY GT 01/24/20 09:00 01/31/20 08:59 01/27/20 09:08 Dopamine HCl/ Dextrose 250 ml @ 6.281 mls/ hr Q24H IV 01/26/20 18:00 04/23/20 17:59 01/26/20 18:20 Fidaxomicin (Dificid) 200 mg EVERY 12 HOURS ORAL 01/23/20 21:00 01/29/20 21:01 01/27/20 09:07 Gabapentin (Neurontin) 900 mg TID GT 01/24/20 09:00 02/19/20 17:59 01/27/20 13:23 Haloperidol Lactate (Haldol) 5 mg Q6H PRN IM Agitation 01/23/20 19:41 02/15/20 19:40 01/25/20 11:34 Levetiracetam (Keppra) 1,500 mg Q12HR GT 01/23/20 21:00 02/07/20 08:59 01/27/20 09:08 Levothyroxine Sodium (Synthroid) 50 mcg ACBREAKFAST GT 01/24/20 06:30 02/10/20 06:29 01/27/20 05:39 Metronidazole (Flagyl) 500 mg Q8HR GT 01/23/20 22:00 01/29/20 23:59 01/27/20 13:23 Midodrine (Pro-Amatine) 5 mg TID GT 01/24/20 09:00 04/21/20 08:59 01/27/20 13:23 Multivitamins (Multivitamins W/ Minerals 15ml Liquid) 15 ml DAILY GT 01/24/20 09:00 02/23/20 08:59 01/27/20 09:08 Ondansetron HCl (Zofran) 4 mg Q6H PRN GT Nausea & Vomiting 01/23/20 19:42 01/30/20 19:41 Oxcarbazepine (TrileptaL) 300 mg BEDTIME GT 01/23/20 21:00 02/07/20 20:59 01/26/20 20:37 Potassium Chloride (K-Dur) 20 meq TWICE A DAY GT 01/24/20 09:00 04/10/20 08:59 01/27/20 09:09 Thiamine HCl (Vitamin B1) 100 mg DAILY GT 01/24/20 09:00 01/31/20 08:59 01/27/20 09:08 Char Morel M.D. Jan 27, 2020 16:56
[2020-01-27] MEDS: DOPamine 400mg/250ml 250 ML IV SCH (19:46)
[2020-01-27 20:00] VITALS: BP 90/64
[2020-01-27] MEDS: OXcarbazepine 150mg tab GT SCH (20:41)
--- NOTE | 2020-01-27 20:42 | General Progress Note ---
Assessment/Plan Status: stable, other - Patient is now hypotensive before over 46 she will receive 500 cc of normal saline bolus to be repeated blood pressure remained below 90 further management will be decided following the boluses treatment repeat laboratory tests will be done in a.m. GLENNY BISHOP MD Assessment/Plan: Glenny Harrison Subjective Constitutional: Reports: no symptoms HEENT: Reports: no symptoms Cardiovascular: Reports: no symptoms Respiratory: Reports: no symptoms Gastrointestinal/Abdominal: Reports: no symptoms Genitourinary: Reports: no symptoms Neurologic/Psychiatric: Reports: other - Patient is indifferent to the examination focuses on other issues ensuring her bedsheet incessantly Allergies: Coded Allergies: CARBAMAZEPINE (Verified Allergy, Unknown, 12/31/19) LORAZEPAM (Verified Allergy, Unknown, 12/31/19) Objective Last 24 Hour Vital Signs Date Time Temp Pulse Resp B/P (MAP) Pulse Ox O2 Delivery O2 Flow Rate FiO2 01/27/20 19:46 110/68 01/27/20 18:52 117 24 30 01/27/20 16:37 107 01/27/20 16:12 97.7 108 25 110/68 (82) 100 01/27/20 16:03 30 01/27/20 16:01 Mechanical Ventilator 01/27/20 15:10 86 23 30 01/27/20 12:00 Mechanical Ventilator 01/27/20 12:00 30 01/27/20 12:00 94 01/27/20 12:00 97.2 82 17 133/76 (95) 100 01/27/20 11:10 85 14 30 01/27/20 09:33 100 01/27/20 08:00 30 01/27/20 08:00 Mechanical Ventilator 01/27/20 08:00 80 01/27/20 08:00 97.2 85 20 121/71 (88) 100 01/27/20 07:20 90 22 30 01/27/20 06:00 65 01/27/20 04:00 65 01/27/20 04:00 Mechanical Ventilator 01/27/20 04:00 98.0 60 24 111/78 (89) 94 01/27/20 04:00 30 01/27/20 02:59 76 20 30 01/27/20 00:00 30 01/27/20 00:00 97.9 54 19 101/60 (74) 96 01/27/20 00:00 54 01/27/20 00:00 Mechanical Ventilator 01/26/20 22:55 52 18 30 Intake and Output 01/26/20 01/27/20 19:00 07:00 Intake Total 755.380 ml 1041.653 ml Output Total 200 ml 100 ml Balance 555.380 ml 941.653 ml Intake Free Water 200 ml 300 ml IV Total 60.380 ml 81.653 ml Tube Feeding 495 ml 660 ml Output Urine Total 50 ml Stool Total 150 ml 100 ml # Voids 2 Laboratory Tests 01/27/20 00:35: POC Whole Blood Glucose 105 01/27/20 03:25: White Blood Count 14.4H, Red Blood Count 4.28, Hemoglobin 12.9, Hematocrit 39.9 , Mean Corpuscular Volume 93, Mean Corpuscular Hemoglobin 30.1, Mean Corpuscular Hemoglobin Concent 32.3, Red Cell Distribution Width 15.1H, Platelet Count 415, Mean Platelet Volume 6.0L, Neutrophils (%) (Auto) 74.3, Lymphocytes (%) (Auto) 17.1L, Monocytes (%) (Auto) 4.5, Eosinophils (%) (Auto) 3.6H, Basophils (%) (Auto) 0.5 01/27/20 06:27: POC Whole Blood Glucose 239H 01/27/20 06:30: POC Whole Blood Glucose [Pending] 01/27/20 17:01: POC Whole Blood Glucose 114H Height (Feet): 5 Height (Inches): 1.00 Weight (Pounds): 71 General Appearance: WD/WN, alert, cachetic EENT: normal ENT inspection Neck: supple Cardiovascular: other - Patient blood pressure is maintained her heart rate is 52 and while being on dopamine 5 mcg/min she appears to be hemodynamically stable Respiratory/Chest: lungs clear, normal breath sounds, no respiratory distress Abdomen: normal bowel sounds, non tender, soft, no organomegaly, no mass Extremities: non-tender, other - With diffuse lower extremity muscle wasting Neurologic: alert, aphasia, other - Arouses and is oriented she appears psychotic Skin: warm/dry Glenny Bishop MD Jan 27, 2020 20:42
[2020-01-28] VITALS (18 sets, daily range): BP systolic 74–108; BP diastolic 51–79
[2020-01-28 01:38] LABS: APPEARANCE,URINE CLOUDY; BILIRUBIN, URINE NEGATIVE (NEGATIVE); COLOR,URINE YELLOW; GLUCOSE, URINE (UA) NEGATIVE (NEGATIVE); KETONES,URINE 1+ (NEGATIVE); LEUKOCYTE ESTERASE ,URINE 3+ (NEGATIVE); NITRITE,URINE POSITIVE (NEGATIVE); PH,URINE 6.5 (4.5-8.0); PROTEIN,URINE 2+ (NEGATIVE); UROBILINOGEN,URINE 1 MG/DL (0.0-1.0)
[2020-01-28] MEDS: metroNIDAZOLE 500mg tab GT SCH (05:33)
--- NOTE | 2020-01-28 07:19 | General Progress Note ---
Assessment/Plan Status: stable, other - Patient is now hypotensive before over 46 she will receive 500 cc of normal saline bolus to be repeated blood pressure remained below 90 further management will be decided following the boluses treatment repeat laboratory tests will be done in a.m. GEM BISHOP MD Assessment/Plan: Covering Dr. Bishop # Anemia rule out underlying gi bleed --> Dr. Carrillo has been consulted-->endosco gastric ulceration --> trend hgb 7-->7.4-->7.9-->8.1->9.6-->8.5->9.1-->10-->11-->10.3-->10.4-->11 --> anemia panel ordered-->reviewed --> prn transfusion --> protonix started # Leukocytosis is likely related to pna on imaging --> abx has been started --> if wbc worsens, consider abx vanc/zosyn--> ceftriaxone-->vanc->fluc/flagyl/ vanc-->flagyl/fidoxomicin --> smear is noted --> wbc 25-->15-->14-->16->7.6-->12-->20->13->11->14 --> pressors prn # Thrombocytopenia med related v labs error --> plt trend 167-->61-->227->373 --> meds have been reviewed --> no hep or lovenox (if less than 50k plt) # Sepsis --> on abx for pna --> pressors as needed # Pneumonia --> pulm, Dr. 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 curriculum consultant care, will follow Subjective Constitutional: Denies: no symptoms, chills, diaphoresis, fever, malaise, weakness, other Respiratory: Denies: no symptoms, cough, orthopnea, shortness of breath, SOB with excertion, SOB at rest, sputum, stridor, wheezing, other Gastrointestinal/Abdominal: Denies: no symptoms, abdomen distended, abdominal pain, black stools, tarry stools, blood in stool, constipated, diarrhea, difficulty swallowing, nausea, poor appetite, poor fluid intake, rectal bleeding , vomiting, other Genitourinary: Denies: no symptoms, burning, discharge, frequency, flank pain, hematuria, incontinence, pain, urgency, other Neurologic/Psychiatric: Denies: no symptoms, anxiety, depressed, emotional problems, headache, numbness, paresthesia, pre-existing deficit, seizure, tingling, tremors, weakness, other Endocrine: Denies: no symptoms, excessive sweating, flushing, intolerance to cold, intolerance to heat, increased hunger, increased thirst, increased urine, unexplained weight gain, unexplained weight loss, other Allergies: Coded Allergies: CARBAMAZEPINE (Verified Allergy, Unknown, 12/31/19) LORAZEPAM (Verified Allergy, Unknown, 12/31/19) Subjective 01/01 altered, trach, no bleedin wbc improved on abx, seen by gi 01/02 egd study noted, also with plts 61k, have vitaly Armendariz Rn, will recheck cbc 01/03 remains agitated, vitaly rn, no bleeding, cbc noted as well as id recs 01/04 on vent, with melena overnight, no bleeding, vitaly rn, labs reviewed 01/06 on vent, remains agitated, no bleeding, vitaly rn, smear is noted 01/07 on vent, restless, asymptomatic, noncooperative 01/[address] John obtained, reviewed, meds adjusted, eeg pending 01/09 labs noted, no bleeding, ativan has been discontinued, meds reviewed 01/10 trach to vent, agitated, with wrist restraints, no major changes, no bleeding 01/11 labs are reviewed, on trach to vent, no bleeding, agitated overnight, no complaints 01/13 labs noted, no bleeding, is on vent/trach, no bleeding, vitaly rn, labs are noted 01/14 labs are noted, no bleeding, remains on v/t, remains agitated, no bleeding 01/15 is c.diff positive, wbc higher at 21k, labs noted, on abx, reviewed gi, id recs 01/16 remains on vent, wbc is improved, in sr, as abx per id 01/17 recieved dopamine, tube feeds, on soft restraints, no bleeding, vitaly longoria 01/18 labs are noted, no bleeding, vitaly rn, no major changes 01/20 on dopamine gtt, with restraints, no major changes, labs noted 01/21 labs reviewed, no bleeding, vitaly rn, no major changes 01/22 transferred to icu for higher loc, dopamine on hold as bp is good, have increased Synthroid 01/23 labs are pending, meds noted, no bleeding, dopamine gtt ongoing, cbc noted 01/24 still nv, no bleeding, labs reviewed, vitaly rn, with rectal tube in place, on dopamine gtt 01/25 is on bipap, nv, no bleeding, remains on low dose pressorm hgb 11 01/27 on dopamine, hr was elevated overnight, cards aware Objective Last 24 Hour Vital Signs Date Time Temp Pulse Resp B/P (MAP) Pulse Ox O2 Delivery O2 Flow Rate FiO2 01/28/20 04:00 30 01/28/20 04:00 Mechanical Ventilator 01/28/20 04:00 131 01/28/20 04:00 98.4 120 26 108/60 (76) 99 01/28/20 03:15 130 25 30 01/28/20 00:00 121 01/28/20 00:00 30 01/28/20 00:00 Mechanical Ventilator 01/28/20 00:00 97.9 121 26 100/73 (82) 100 01/27/20 23:05 113 23 30 01/27/20 20:00 30 01/27/20 20:00 Mechanical Ventilator 01/27/20 20:00 123 01/27/20 20:00 98.2 124 24 90/64 (73) 100 01/27/20 19:46 110/68 01/27/20 18:52 117 24 30 01/27/20 16:37 107 01/27/20 16:12 97.7 108 25 110/68 (82) 100 01/27/20 16:03 30 01/27/20 16:01 Mechanical Ventilator 01/27/20 15:10 86 23 30 01/27/20 12:00 Mechanical Ventilator 01/27/20 12:00 30 01/27/20 12:00 94 01/27/20 12:00 97.2 82 17 133/76 (95) 100 01/27/20 11:10 85 14 30 01/27/20 09:33 100 01/27/20 08:00 30 01/27/20 08:00 Mechanical Ventilator 01/27/20 08:00 80 01/27/20 08:00 97.2 85 20 121/71 (88) 100 01/27/20 07:20 90 22 30 Intake and Output 01/27/20 01/28/20 19:00 07:00 Intake Total 1355.372 ml 801.281 ml Output Total 153 ml 50 ml Balance 1202.372 ml 751.281 ml Intake Free Water 300 ml 300 ml IV Total 75.372 ml 6.281 ml Tube Feeding 660 ml 495 ml Other 320 ml Output Urine Total 3 ml Stool Total 50 ml Emesis 150 ml Laboratory Tests 01/27/20 17:01: POC Whole Blood Glucose 114H 01/27/20 20:55: POC Whole Blood Glucose [Pending] 01/28/20 00:00: Urine Color Yellow, Urine Appearance Cloudy, Urine pH 6.5, Urine Specific [place] 1.020, Urine Protein 2+H, Urine Glucose (UA) Negative, Urine Ketones 1+H , Urine Blood 2+H, Urine Nitrite PositiveH, Urine Bilirubin Negative, Urine Urobilinogen 1H, Urine Leukocyte Esterase 3+H, Urine RBC 5-10H, Urine WBC 2-4, Urine Squamous Epithelial Cells Few, Urine Calcium Oxalate Crystals Moderate, Urine Amorphous Sediment ModerateH, Urine Bacteria ManyH, Urine Yeast OccasionalH 01/28/20 00:45: POC Whole Blood Glucose [Pending] 01/28/20 05:05: White Blood Count [Pending], Red Blood Count [Pending], Hemoglobin [Pending], Hematocrit [Pending], Mean Corpuscular Volume [Pending], Mean Corpuscular Hemoglobin [Pending], Mean Corpuscular Hemoglobin Concent [Pending], Red Cell Distribution Width [Pending], Platelet Count [Pending], Mean Platelet Volume [ Pending], Neutrophils (%) (Auto) [Pending], Lymphocytes (%) (Auto) [Pending], Monocytes (%) (Auto) [Pending], Eosinophils (%) (Auto) [Pending], Basophils (%) (Auto) [Pending], Sodium Level [Pending], Potassium Level [Pending], Chloride Level [Pending], Carbon Dioxide Level [Pending], Blood Urea Nitrogen [Pending], Creatinine [Pending], Estimat Glomerular Filtration Rate [Pending], Glucose Level [Pending], Calcium Level [Pending], Phosphorus Level [Pending], Magnesium Level [Pending], Total Bilirubin [Pending], Aspartate Amino Transf (AST/SGOT) [ Pending], Alanine Aminotransferase (ALT/SGPT) [Pending], Alkaline Phosphatase [ Pending], C-Reactive Protein, Quantitative [Pending], Pro-B-Type Natriuretic Peptide [Pending], Total Protein [Pending], Albumin [Pending], Globulin [Pending ] 01/28/20 06:11: POC Whole Blood Glucose 185H Height (Feet): 5 Height (Inches): 1.00 Weight (Pounds): 71 Objective Vital Signs General Appearance: ++ cachectic, chronically ill HEENT: normocephalic, atraumatic ++ trach Resp: other -. vent ++ Cardiovascular: regular rate, rhythm, no edema Gastrointestinal: gtube in place, without erythema Rectal: other - Hemoccult positive [place]: back normal, gait/station normal, non-tender Lymphatic: no adenopathy Baltazar Cortes MD Jan 28, 2020 07:19
[2020-01-28 07:25] LABS: HEMATOCRIT 49.5 % (37.0-47.0); HEMOGLOBIN 15.7 G/DL (12.0-16.0); MEAN CORPUSCULAR VOLUME 93 FL (80-99); PLATELET COUNT 438 K/UL (150-450); RED BLOOD COUNT 5.31 M/UL (4.20-5.40); RED CELL DISTRIBUTION WIDTH 16.1 % (11.6-14.8)
[2020-01-28 07:58] LABS: ALBUMIN 3.2 G/DL (3.4-5.0); ALBUMIN/GLOBULIN RATIO 0.6 (1.0-2.7); BILIRUBIN,TOTAL 0.5 MG/DL (0.2-1.0); CALCIUM 10.3 MG/DL (8.5-10.1); CREATININE 1.2 MG/DL (0.55-1.30); PHOSPHORUS 4.3 MG/DL (2.5-4.9); POTASSIUM 4.7 MMOL/L (3.5-5.1)
[2020-01-28] MEDS ORDERED: Norepinephrine 4mg/NS Premix 250 ML IV SCH (08:15)
[2020-01-28] MEDS: Norepinephrine 4mg/NS Premix 250 ML IV SCH (09:30)
[2020-01-28] MEDS ORDERED: Haloperidol 5mg/ml Inj IM PRN (09:30)
--- NOTE | 2020-01-28 09:56 | Pulmonolgy Critical Care Note ---
MorganIvanna DEPUTY SHERIFF GENERALIST 01/28/20 0956: Critical Care - Asmt/Plan Assessment/Plan: ASSESSMENT VDRF/trach status Sepsis with shock Possible pneumonia UTI recurrent GI bleeding C dif colitis, persistent Anemia secondary to GI bleeding Aspiration risk Dysphagia, feeding by G-tube Encephalopathy Acute kidney injury likely secondary to dehydration Recurrent bradycardia persistent Hypotension Electrolyte imbalance Severe protein calorie malnutrition Hx of hypertension History of CVA Seizure disorder with witnessed seizure episode 01/07 Psychiatric disorder Presumed scabies, s/p Rx Thrombocytopenia-transient- resolved PLAN OF CARE in ICU on Dopamine and on Midodrine due to persistent hypotension and recurrent bradycardia need pressors, started on levo-> per further cardio recs vent support, pulm toilet ABG now last ABG stable on current settings, on SIMV mode 450-30-12 PEEP5 , no signs of resp distress on these settings keep settings as is and titrate as needed now tachypneic intermittently CXR 01/13 stable CXR 12/26 ordered, but not done CXR this am just completed pulm toilet via HHN leuk up this am , no fevers pancx-per ID CXR 01/13- no acute findings KUB 01/13- no acute findings UA + yeast , 01/12 UCX +yeast, started on Fluconazole 01/14 as per ID - completed BCX 01/12 NGTD abx as per ID recs Vanco po was prior dc and switched to Dificid , also on Flagyl per GI -till 01/28 inflammatory markers : ESR-42, CRP- wnl WBC smear NGT UA + bacteria, no pyuria, discussed over the phone with ID Dr Morel will extend Dificid and Flagyl add Cefepime for possible PNA CT A/P if able to do prior BCX / +CONS likely contaminant, off Vanco ; repeated BCX 01/01 and 01/02 NGTD SCX + Proteus , was on Ceftriaxone as per ID recs for poss SBP in setting of GI bleeding - completed BCX 01/01 and 01/02 NGTD stool C dif 01/07 +, on oral vanco rapid COVID 19 NGT in ED aspiration precautions Venous Duplex BLE -negative, get SCD ( unable to give a/c given anemia) closely monitor hemodynamic status Protonix IV GT feeding stool OB positive transfuse to keep Hgb > 7. heme and GI follows s/p EGD 01/01 -> gastric ulcer across G tube site , no active bleeding HH at baseline monitor for any further episodes of Gi bleeding trend LFT-> trended down, hep panel NGT hx of cirrhosis- per GI management hypotension-> Midodrine, s/p IV fluids, back on Dopamine gtt bradycardia cardio follows monitor renal parameters, lytes, avoid nephrotoxic BUN trending down, creat stable, likely prerenal due to dehydration replace e/lytes as per nephro recs monitor volumes seizure precautions, antiepileptic optimized as per neuro recs ammonia 49, fup with further neuro recs EEG - grossly abnormal; mild to mod encephalopathy, single ictal episode CT head no acute IC pathology BP management with current regimen SNF meds supportive care dietary recs s/p 12/31 Rx for presumed scabies with permethrin and Ivermectin, repeated Ivermectin 01/08 case discussed and evaluated by supervising physician Critical Care - Objective Last 24 Hour Vital Signs Date Time Temp Pulse Resp B/P (MAP) Pulse Ox O2 Delivery O2 Flow Rate FiO2 01/28/20 09:00 97 01/28/20 07:20 137 31 30 01/28/20 04:00 30 01/28/20 04:00 Mechanical Ventilator 01/28/20 04:00 131 01/28/20 04:00 98.4 120 26 108/60 (76) 99 01/28/20 03:15 130 25 30 01/28/20 00:00 121 01/28/20 00:00 30 01/28/20 00:00 Mechanical Ventilator 01/28/20 00:00 97.9 121 26 100/73 (82) 100 01/27/20 23:05 113 23 30 01/27/20 20:00 30 01/27/20 20:00 Mechanical Ventilator 01/27/20 20:00 123 01/27/20 20:00 98.2 124 24 90/64 (73) 100 01/27/20 19:46 110/68 01/27/20 18:52 117 24 30 01/27/20 16:37 107 01/27/20 16:12 97.7 108 25 110/68 (82) 100 01/27/20 16:03 30 01/27/20 16:01 Mechanical Ventilator 01/27/20 15:10 86 23 30 01/27/20 12:00 Mechanical Ventilator 01/27/20 12:00 30 01/27/20 12:00 94 01/27/20 12:00 97.2 82 17 133/76 (95) 100 01/27/20 11:10 85 14 30 Objective: General Appearance: bedridden, pale, chronically ill looking, older than her biological age ; vent dependent female ; on vent SIMV 450-30%-12, PEEP 5 Lines, tubes and drains: peripheral, trach HEENT: normocephalic, atraumatic Neck: trach - Portex #7, secretions small amount, yellow color, thin consistency Respiratory/Chest: CTAB Cardiovascular/Chest: regular rate, regular rhythm Abdomen: non tender, soft, G tube Genitourinary/Rectal: [place] Extremities: no edema, muscle atrophy Neurologic: abnormal gait, poorly responsive, more awake , eyes open Musculoskeletal: atrophy BLE Skin: multiple tattoos Micro: Microbiology Date/Time Source Procedure Growth Status 01/25/20 23:45 Stool WBC Smear - Final Complete Accucheck: 185 Critical Care - Subjective ROS Limited/Unobtainable: Yes Interval Events: on Dopamine gtt and Midodrine no signs of resp distress on current vent settings, remains on SIMV mode, last ABG stable as well as CXR CXR 01/26 not done as ordered CXR for this am was just taking this am WBC up to 38, no fevers UA with evidence of UTI very hypotensive this am, requiring transfer to ICU tachycardic, tachypneic Condition: critical IV Access: peripheral EKG Rhythm: Sinus Tachycardia FI02: 30 Vent Support Breath Rate: 12 Vent Support Mode: IMV/SIMV Vent Tidal Volume: 450 Sputum Amount: Small PEEP: 5.0 PIP: 16 Tube Feeding Amount: 55 I&O: Intake and Output 01/27/20 01/28/20 19:00 07:00 Intake Total 1355.372 ml 801.281 ml Output Total 153 ml 50 ml Balance 1202.372 ml 751.281 ml Intake Free Water 300 ml 300 ml IV Total 75.372 ml 6.281 ml Tube Feeding 660 ml 495 ml Other 320 ml Output Urine Total 3 ml Stool Total 50 ml Emesis 150 ml Jeyson Anderson MD 01/28/20 1354: Critical Care - Asmt/Plan Assessment/Plan: Patient seen and examined with DEPUTY SHERIFF GENERALIST. Agree with above A&P as it reflects our joint deliberations. Time Spent (Minutes): 40 - cc Ivanna Mora NP Jan 28, 2020 09:56 Jeyson Anderson MD Jan 28, 2020 13:54
[2020-01-28] MEDS ORDERED: Omnipaque-300 100ml vial INJ PRN (10:15)
[2020-01-28] MEDS: Multivitamins W/Minerals 15 ML UDC GT SCH (10:29)
[2020-01-28] MEDS: levETIRAcetam 500mg/5ml Liquid GT SCH ×2 (10:30→21:02)
[2020-01-28] MEDS: Thiamine 100mg tab GT SCH (10:32)
[2020-01-28] MEDS: Ascorbic Acid 500mg tab GT SCH (10:33)
--- NOTE | 2020-01-28 10:41 | Diagnostic Imaging Report ---
EXAM: XR Chest, 1 View CLINICAL HISTORY: SOB TECHNIQUE: Frontal view of the chest. COMPARISON: 01/14/20. FINDINGS: Lungs: Unremarkable. No consolidation. Pleural space: Unremarkable. No pneumothorax. Heart: Unremarkable. No cardiomegaly. Mediastinum: Redemonstrated tracheostomy. Bones/joints: Osteopenia. IMPRESSION: Redemonstrated tracheostomy. No evidence of acute pulmonary disease.
[2020-01-28] MEDS: Gabapentin 300 MG/6 ML Soln GT SCH ×3 (10:42→17:15)
[2020-01-28] MEDS: Cefepime HCl 1 GM in D5W 55 ML IVPB SCH ×2 (11:41→21:03)
[2020-01-28] MEDS: Acetaminophen 650mg/20.3ml GT PRN (11:42)
[2020-01-28] MEDS ORDERED: Vancomycin 750mg/NS 275ml IVPB ONE ×2 (12:00)
[2020-01-28 12:03] LABS: HEMATOCRIT 43.9 % (37.0-47.0); HEMOGLOBIN 13.8 G/DL (12.0-16.0); MEAN CORPUSCULAR VOLUME 93 FL (80-99); PLATELET COUNT 393 K/UL (150-450); RED CELL DISTRIBUTION WIDTH 15.6 % (11.6-14.8)
[2020-01-28 12:05] LABS: WHITE BLOOD COUNT 43.3 K/UL (4.8-10.8)
[2020-01-28] MEDS ORDERED: D5 1/2NS 1,000 ML IV SCH (13:00)
--- NOTE | 2020-01-28 13:56 | Nephrology Progress Note ---
Assessment/Plan Problem List: (1) RICHARD (acute kidney injury) (2) Dehydration (3) Anemia (4) GI bleed (5) Malnutrition (6) Seizure disorder (7) Electrolyte imbalance Assessment Renal failure, in the form of prerenal azotemia, most likely secondary to GI bleed GI bleed, leading to severe anemia Sepsis, pneumonia Chronic tracheostomy, ventilator dependent History of CVA History of seizure disorder History of psychiatric disorder Severe malnutrition Electrolyte abnormalities Plan January 27: Significant rise in white blood cell counts. Hypotensive. Now in ICU. Will give albumin bolus. Continue to monitor renal parameters. Continue per ID advice. January 26: Continue to monitor renal parameters. Patient remains on ventilator. Patient is full code. Continue per consultants. January 25: Status quo. Labs reviewed. Continue per consultants. January 24: Status unchanged. Labs reviewed. Remains stable from renal standpoint of view. January 23: Back in [facility]. Stable from renal standpoint of view. Continue per consultants. January 22: Patient in ICU now. Vital signs and heart rate and blood pressure appears to be stable. Patient had an episode of bradycardia but it was resolved. TSH level today is very low will cut down on Synthroid dose. January 21: Today's labs are reviewed. Stable renal parameters. Continue per consultants. January 20: Labs reviewed. Renal parameters stable. January 19: Labs reviewed. Stable from renal standpoint. January 18: No labs done today. Continue per consultants. Medications reviewed. January 17: Late note entry due to system problem at the [facility] today.Chemistry panel reviewed. Stable from renal standpoint of view. Continue per current management. January 16: No can panel today. Check lab tomorrow. Remains stable from renal standpoint of view. January 15: Lab reviewed. Renal parameters stable. January 14: Lab reviewed. Renal parameters stable. January 13: Labs reviewed. Stable from renal standpoint of view. January 12: Labs reviewed. Stable from renal standpoint of view January 11: No labs drawn today stable from renal standpoint of view January 10: Labs reviewed. Potassium supplement given. Continue per consultants. January 09: Lab reviewed. Potassium supplement given. IV fluid discontinued. January 08: Lab reviewed. Renal parameters stable. Continue per consultants. January 07: Lab reviewed. Renal parameters stable. Continue per consultants. January 06: Lab reviewed. Stable from renal standpoint of view. January 05: Labs reviewed. Stable from renal standpoint of view. Continue per consultants. January 04: No labs drawn today. Will check labs tomorrow. Continue per consultants. January 03: Lab reviewed. Renal parameters stable. IV fluid discontinued. High LFTs declining. Continue same. January 02: Lab reviewed. Renal parameters stable. Continue per PMD and consultants. LFTs remain elevated. Continue to monitor. Continue slow hydration Discontinue blood pressure medications as her blood pressure is low Discontinue diuretics Monitor renal parameters Transfusion as needed GI evaluation Correct electrolyte abnormalities Check B12 level, folate, and thyroid function tests: Results noted Subjective ROS Limited/Unobtainable: Yes Objective Objective Last 24 Hour Vital Signs Date Time Temp Pulse Resp B/P (MAP) Pulse Ox O2 Delivery O2 Flow Rate FiO2 01/28/20 12:12 99.5 01/28/20 10:50 118 28 30 01/28/20 10:17 74/51 (59) 98 01/28/20 09:00 30 01/28/20 09:00 97 01/28/20 08:00 Mechanical Ventilator 01/28/20 08:00 98.4 118 23 108/60 (76) 99 01/28/20 07:50 140 01/28/20 07:20 137 31 30 01/28/20 04:00 30 01/28/20 04:00 Mechanical Ventilator 01/28/20 04:00 131 01/28/20 04:00 98.4 120 26 108/60 (76) 99 01/28/20 03:15 130 25 30 01/28/20 00:00 121 01/28/20 00:00 30 01/28/20 00:00 Mechanical Ventilator 01/28/20 00:00 97.9 121 26 100/73 (82) 100 01/27/20 23:05 113 23 30 01/27/20 20:00 30 01/27/20 20:00 Mechanical Ventilator 01/27/20 20:00 123 01/27/20 20:00 98.2 124 24 90/64 (73) 100 01/27/20 19:46 110/68 01/27/20 18:52 117 24 30 01/27/20 16:37 107 01/27/20 16:12 97.7 108 25 110/68 (82) 100 01/27/20 16:03 30 01/27/20 16:01 Mechanical Ventilator 01/27/20 15:10 86 23 30 Intake and Output 01/27/20 01/28/20 19:00 07:00 Intake Total 1355.372 ml 801.281 ml Output Total 153 ml 50 ml Balance 1202.372 ml 751.281 ml Intake Free Water 300 ml 300 ml IV Total 75.372 ml 6.281 ml Tube Feeding 660 ml 495 ml Other 320 ml Output Urine Total 3 ml Stool Total 50 ml Emesis 150 ml Laboratory Tests 01/27/20 17:01: POC Whole Blood Glucose 114H 01/27/20 20:55: POC Whole Blood Glucose [Pending] 01/28/20 00:00: Urine Color Yellow, Urine Appearance Cloudy, Urine pH 6.5, Urine Specific [place] 1.020, Urine Protein 2+H, Urine Glucose (UA) Negative, Urine Ketones 1+H , Urine Blood 2+H, Urine Nitrite PositiveH, Urine Bilirubin Negative, Urine Urobilinogen 1H, Urine Leukocyte Esterase 3+H, Urine RBC 5-10H, Urine WBC 2-4, Urine Squamous Epithelial Cells Few, Urine Calcium Oxalate Crystals Moderate, Urine Amorphous Sediment ModerateH, Urine Bacteria ManyH, Urine Yeast OccasionalH 01/28/20 00:45: POC Whole Blood Glucose [Pending] 01/28/20 05:05: White Blood Count 38.0#*H, Red Blood Count 5.31, Hemoglobin 15.7, Hematocrit 49.5H, Mean Corpuscular Volume 93, Mean Corpuscular Hemoglobin 29.5, Mean Corpuscular Hemoglobin Concent 31.7L, Red Cell Distribution Width 16.1H, Platelet Count 438, Mean Platelet Volume 6.6, Neutrophils (%) (Auto) , Lymphocytes (%) (Auto) , Monocytes (%) (Auto) , Eosinophils (%) (Auto) , Basophils (%) (Auto) , Differential Total Cells Counted 100, Neutrophils % ( Manual) 95H, Lymphocytes % (Manual) 2L, Monocytes % (Manual) 3, Eosinophils % ( Manual) 0, Basophils % (Manual) 0, Band Neutrophils 0, Platelet Estimate Adequate, Platelet Morphology Normal, Red Blood Cell Morphology Normal, Sodium Level 147H, Potassium Level 4.7, Chloride Level 108H, Carbon Dioxide Level 26, Anion Gap 13, Blood Urea Nitrogen 53H, Creatinine 1.2, Estimat Glomerular Filtration Rate 49.5, Glucose Level 193H, Calcium Level 10.3H, Phosphorus Level 4.3, Magnesium Level 2.1, Total Bilirubin 0.5, Aspartate Amino Transf (AST/SGOT ) 26, Alanine Aminotransferase (ALT/SGPT) 37, Alkaline Phosphatase 90, C- Reactive Protein, Quantitative 11.3H, Pro-B-Type Natriuretic Peptide 1470H, Total Protein 8.4H, Albumin 3.2L, Globulin 5.2, Albumin/Globulin Ratio 0.6L 01/28/20 06:11: POC Whole Blood Glucose 185H 01/28/20 09:48: Arterial Blood pH 7.485H, Arterial Blood Partial Pressure CO2 32.9L, Arterial Blood Partial Pressure O2 87.1, Arterial Blood HCO3 24.2, Arterial Blood Oxygen Saturation 96.3, Arterial Blood Base Excess 1.4, Tacos Test Positive 01/28/20 11:10: White Blood Count 43.3*H, Red Blood Count 4.70, Hemoglobin 13.8, Hematocrit 43.9 , Mean Corpuscular Volume 93, Mean Corpuscular Hemoglobin 29.3, Mean Corpuscular Hemoglobin Concent 31.4L, Red Cell Distribution Width 15.6H, Platelet Count 393, Mean Platelet Volume 6.6, Neutrophils (%) (Auto) , Lymphocytes (%) (Auto) , Monocytes (%) (Auto) , Eosinophils (%) (Auto) , Basophils (%) (Auto) , Differential Total Cells Counted 100, Neutrophils % ( Manual) 82H, Lymphocytes % (Manual) 6L, Monocytes % (Manual) 12H, Eosinophils % (Manual) 0, Basophils % (Manual) 0, Band Neutrophils 0, Platelet Estimate Adequate, Platelet Morphology Normal, Red Blood Cell Morphology Normal, Lactic Acid Level 2.30H 01/28/20 12:24: Lactic Acid Level 3.00H Height (Feet): 5 Height (Inches): 1.00 Weight (Pounds): 71 General Appearance: mild distress EENT: other - On ventilator Cardiovascular: tachycardia Respiratory/Chest: decreased breath sounds Abdomen: distended Objective No change Chivo Holloway MD Jan 28, 2020 13:56
[2020-01-28] MEDS ORDERED: metroNIDAZOLE 500mg tab GT SCH ×2 (14:00)
--- NOTE | 2020-01-28 14:22 | Diagnostic Imaging Report ---
EXAM: XR Abdomen, 2 Views CLINICAL HISTORY: ABN LABS TECHNIQUE: Frontal view of the abdomen/pelvis with upright view of the abdomen. COMPARISON: 01/14/20. FINDINGS: Redemonstrated percutaneous gastrostomy tube. Diffusely gas filled colon. There is also a dilated small bowel loop in the central abdomen measuring 7.2 cm in diameter. Potential obstruction. Suture along the leftward aspect is dilated all bowel. Cholecystectomy clips in the right upper quadrant. Persistent density or device projecting in the central pelvis of uncertain etiology IMPRESSION: Severely dilated small bowel loop in the central abdomen could reflect obstruction. Diffusely fluid distended colon. Percutaneous gastrostomy tube.
--- NOTE | 2020-01-28 15:00 | Cardiology Progress Note ---
Assessment/Plan Assessment/Plan 1. Septic shock, midodrine increased, responded to IV hydration. 2. Sinus tachycardia, KUB with bowel obstruction, GI to follow. 3. Anemia of chronic disease 4. Acute renal failure, creat up to 1.2 from 0.4, continue hydration. 5. GI bleeding due to gastric ulceration. 6. Dysphagia, s/p PEG placement. 7. VDRF, s/p tracheostomy tube placement. Subjective Subjective Transferred to the ICU for tachycardia, dopamine gtt was discontinued. IV fluid bolus given. On the vent with FiO2 of 30%. Objective Last 24 Hour Vital Signs Date Time Temp Pulse Resp B/P (MAP) Pulse Ox O2 Delivery O2 Flow Rate FiO2 01/28/20 12:12 99.5 01/28/20 10:50 118 28 30 01/28/20 10:17 74/51 (59) 98 01/28/20 09:00 30 01/28/20 09:00 97 01/28/20 08:00 Mechanical Ventilator 01/28/20 08:00 98.4 118 23 108/60 (76) 99 01/28/20 07:50 140 01/28/20 07:20 137 31 30 01/28/20 04:00 30 01/28/20 04:00 Mechanical Ventilator 01/28/20 04:00 131 01/28/20 04:00 98.4 120 26 108/60 (76) 99 01/28/20 03:15 130 25 30 01/28/20 00:00 121 01/28/20 00:00 30 01/28/20 00:00 Mechanical Ventilator 01/28/20 00:00 97.9 121 26 100/73 (82) 100 01/27/20 23:05 113 23 30 01/27/20 20:00 30 01/27/20 20:00 Mechanical Ventilator 01/27/20 20:00 123 01/27/20 20:00 98.2 124 24 90/64 (73) 100 01/27/20 19:46 110/68 01/27/20 18:52 117 24 30 01/27/20 16:37 107 01/27/20 16:12 97.7 108 25 110/68 (82) 100 01/27/20 16:03 30 01/27/20 16:01 Mechanical Ventilator 01/27/20 15:10 86 23 30 Intake and Output 01/27/20 01/28/20 19:00 07:00 Intake Total 1355.372 ml 801.281 ml Output Total 153 ml 50 ml Balance 1202.372 ml 751.281 ml Intake Free Water 300 ml 300 ml IV Total 75.372 ml 6.281 ml Tube Feeding 660 ml 495 ml Other 320 ml Output Urine Total 3 ml Stool Total 50 ml Emesis 150 ml 2D Echo: LVEF 65%, RVSP 23 mmHg, Grade I LVDD Laboratory Tests Test 01/27/20 17:01 01/27/20 20:55 01/28/20 00:00 01/28/20 00:45 POC Whole Blood Glucose 114 MG/DL (74-106) H Pending Pending Urine Color Yellow Urine Appearance Cloudy Urine pH 6.5 (4.5-8.0) Urine Specific [place] 1.020 (1.005-1.035) Urine Protein 2+ (NEGATIVE) H Urine Glucose (UA) Negative (NEGATIVE) Urine Ketones 1+ (NEGATIVE) H Urine Blood 2+ (NEGATIVE) H Urine Nitrite Positive (NEGATIVE) H Urine Bilirubin Negative (NEGATIVE) Urine Urobilinogen 1 MG/DL (0.0-1.0) H Urine Leukocyte Esterase 3+ (NEGATIVE) H Urine RBC 5-10 /HPF (0 - 2) H Urine WBC 2-4 /HPF (0 - 2) Urine Squamous Epithelial Cells Few /LPF (NONE/OCC) Urine Calcium Oxalate Crystals Moderate /LPF (NONE) Urine Amorphous Sediment Moderate /LPF (NONE) H Urine Bacteria Many /HPF (NONE) H Urine Yeast Occasional /HPF (NONE) H Test 01/28/20 05:05 01/28/20 06:11 01/28/20 09:48 01/28/20 11:10 White Blood Count 38.0 K/UL (4.8-10.8) #*H 43.3 K/UL (4.8-10.8) *H Red Blood Count 5.31 M/UL (4.20-5.40) 4.70 M/UL (4.20-5.40) Hemoglobin 15.7 G/DL (12.0-16.0) 13.8 G/DL (12.0-16.0) Hematocrit 49.5 % (37.0-47.0) H 43.9 % (37.0-47.0) Mean Corpuscular Volume 93 FL (80-99) 93 FL (80-99) Mean Corpuscular Hemoglobin 29.5 PG (27.0-31.0) 29.3 PG (27.0-31.0) Mean Corpuscular Hemoglobin Concent 31.7 G/DL (32.0-36.0) L 31.4 G/DL (32.0-36.0) L Red Cell Distribution Width 16.1 % (11.6-14.8) H 15.6 % (11.6-14.8) H Platelet Count 438 K/UL (150-450) 393 K/UL (150-450) Mean Platelet Volume 6.6 FL (6.5-10.1) 6.6 FL (6.5-10.1) Neutrophils (%) (Auto) % (45.0-75.0) % (45.0-75.0) Lymphocytes (%) (Auto) % (20.0-45.0) % (20.0-45.0) Monocytes (%) (Auto) % (1.0-10.0) % (1.0-10.0) Eosinophils (%) (Auto) % (0.0-3.0) % (0.0-3.0) Basophils (%) (Auto) % (0.0-2.0) % (0.0-2.0) Differential Total Cells Counted 100 100 Neutrophils % (Manual) 95 % (45-75) H 82 % (45-75) H Lymphocytes % (Manual) 2 % (20-45) L 6 % (20-45) L Monocytes % (Manual) 3 % (1-10) 12 % (1-10) H Eosinophils % (Manual) 0 % (0-3) 0 % (0-3) Basophils % (Manual) 0 % (0-2) 0 % (0-2) Band Neutrophils 0 % (0-8) 0 % (0-8) Platelet Estimate Adequate Adequate Platelet Morphology Normal Normal Red Blood Cell Morphology Normal Normal Sodium Level 147 MMOL/L (136-145) H Potassium Level 4.7 MMOL/L (3.5-5.1) Chloride Level 108 MMOL/L (98-107) H Carbon Dioxide Level 26 MMOL/L (21-32) Anion Gap 13 mmol/L (5-15) Blood Urea Nitrogen 53 mg/dL (7-18) H Creatinine 1.2 MG/DL (0.55-1.30) Estimat Glomerular Filtration Rate 49.5 mL/min (>60) Glucose Level 193 MG/DL (74-106) H Calcium Level 10.3 MG/DL (8.5-10.1) H Phosphorus Level 4.3 MG/DL (2.5-4.9) Magnesium Level 2.1 MG/DL (1.8-2.4) Total Bilirubin 0.5 MG/DL (0.2-1.0) Aspartate Amino Transf (AST/SGOT) 26 U/L (15-37) Alanine Aminotransferase (ALT/SGPT) 37 U/L (12-78) Alkaline Phosphatase 90 U/L (46-116) C-Reactive Protein, Quantitative 11.3 mg/dL (0.00-0.90) H Pro-B-Type Natriuretic Peptide 1470 pg/mL (0-125) H Total Protein 8.4 G/DL (6.4-8.2) H Albumin 3.2 G/DL (3.4-5.0) L Globulin 5.2 g/dL Albumin/Globulin Ratio 0.6 (1.0-2.7) L POC Whole Blood Glucose 185 MG/DL (74-106) H Arterial Blood pH 7.485 (7.350-7.450) Arterial Blood Partial Pressure CO2 32.9 mmHg (35.0-45.0) L Arterial Blood Partial Pressure O2 87.1 mmHg (75.0-100.0) Arterial Blood HCO3 24.2 mmol/L (22.0-26.0) Arterial Blood Oxygen Saturation 96.3 % (95-100) Arterial Blood Base Excess 1.4 (-2-2) Tacos Test Positive Lactic Acid Level 2.30 mmol/L (0.4-2.0) H Test 01/28/20 12:24 Lactic Acid Level 3.00 mmol/L (0.66-2.22) H Microbiology Date/Time Source Procedure Growth Status 01/25/20 23:45 Stool WBC Smear - Final Complete Objective HEENT: PERRLA, EOMI, +Trach tube. NECK: Cannot assess JVP, no carotid bruit with normal upstroke. LUNGS: Bilateral rhonchi. CARDIAC: Regular rhythm and rate. Normal S1, S2 with bradycardia, no murmurs, gallops or rubs. ABDOMEN: Soft with G-tube. No hepatomegaly. EXTREMITIES: No edema, clubbing or cyanosis. Desmond Gleason MD Jan 28, 2020 15:00
--- NOTE | 2020-01-28 16:56 | Surgery Progress Note ---
Surgery Progress Note Subjective Symptoms: worse Additional Comments kub noted g tube to suction prognosis guarded on support Objective Last 24 Hour Vital Signs Date Time Temp Pulse Resp B/P (MAP) Pulse Ox O2 Delivery O2 Flow Rate FiO2 01/28/20 16:00 30 01/28/20 16:00 Mechanical Ventilator 01/28/20 16:00 98.9 87 20 94/72 (79) 100 01/28/20 15:20 93 19 30 01/28/20 15:00 97 20 99/75 (83) 100 01/28/20 14:00 100 20 96/61 (73) 100 01/28/20 13:00 114 20 96/79 (85) 100 01/28/20 12:12 99.5 01/28/20 12:00 Mechanical Ventilator 01/28/20 12:00 114 01/28/20 12:00 99.6 109 20 103/78 (86) 100 01/28/20 12:00 30 01/28/20 11:00 124 20 89/56 (67) 100 01/28/20 10:50 118 28 30 01/28/20 10:17 74/51 (59) 98 01/28/20 10:00 99.3 120 20 88/56 (67) 100 01/28/20 09:00 30 01/28/20 09:00 97 01/28/20 08:00 Mechanical Ventilator 01/28/20 08:00 98.4 118 23 108/60 (76) 99 01/28/20 07:50 140 01/28/20 07:20 137 31 30 01/28/20 04:00 30 01/28/20 04:00 Mechanical Ventilator 01/28/20 04:00 131 01/28/20 04:00 98.4 120 26 108/60 (76) 99 01/28/20 03:15 130 25 30 01/28/20 00:00 121 01/28/20 00:00 30 01/28/20 00:00 Mechanical Ventilator 01/28/20 00:00 97.9 121 26 100/73 (82) 100 01/27/20 23:05 113 23 30 01/27/20 20:00 30 01/27/20 20:00 Mechanical Ventilator 01/27/20 20:00 123 01/27/20 20:00 98.2 124 24 90/64 (73) 100 01/27/20 19:46 110/68 01/27/20 18:52 117 24 30 I&O Intake and Output 01/27/20 01/28/20 19:00 07:00 Intake Total 1355.372 ml 801.281 ml Output Total 153 ml 50 ml Balance 1202.372 ml 751.281 ml Intake Free Water 300 ml 300 ml IV Total 75.372 ml 6.281 ml Tube Feeding 660 ml 495 ml Other 320 ml Output Urine Total 3 ml Stool Total 50 ml Emesis 150 ml Dressing: saturated Cardiovascular: RSR Respiratory: decreased breath sounds Abdomen: soft, absent bowel sounds, non-distended Extremities: no cyanosis Laboratory Tests Test 01/27/20 17:01 01/27/20 20:55 01/28/20 00:00 01/28/20 00:45 POC Whole Blood Glucose 114 MG/DL (74-106) H Pending Pending Urine Color Yellow Urine Appearance Cloudy Urine pH 6.5 (4.5-8.0) Urine Specific [place] 1.020 (1.005-1.035) Urine Protein 2+ (NEGATIVE) H Urine Glucose (UA) Negative (NEGATIVE) Urine Ketones 1+ (NEGATIVE) H Urine Blood 2+ (NEGATIVE) H Urine Nitrite Positive (NEGATIVE) H Urine Bilirubin Negative (NEGATIVE) Urine Urobilinogen 1 MG/DL (0.0-1.0) H Urine Leukocyte Esterase 3+ (NEGATIVE) H Urine RBC 5-10 /HPF (0 - 2) H Urine WBC 2-4 /HPF (0 - 2) Urine Squamous Epithelial Cells Few /LPF (NONE/OCC) Urine Calcium Oxalate Crystals Moderate /LPF (NONE) Urine Amorphous Sediment Moderate /LPF (NONE) H Urine Bacteria Many /HPF (NONE) H Urine Yeast Occasional /HPF (NONE) H Test 01/28/20 05:05 01/28/20 06:11 01/28/20 09:48 01/28/20 11:10 White Blood Count 38.0 K/UL (4.8-10.8) #*H 43.3 K/UL (4.8-10.8) *H Red Blood Count 5.31 M/UL (4.20-5.40) 4.70 M/UL (4.20-5.40) Hemoglobin 15.7 G/DL (12.0-16.0) 13.8 G/DL (12.0-16.0) Hematocrit 49.5 % (37.0-47.0) H 43.9 % (37.0-47.0) Mean Corpuscular Volume 93 FL (80-99) 93 FL (80-99) Mean Corpuscular Hemoglobin 29.5 PG (27.0-31.0) 29.3 PG (27.0-31.0) Mean Corpuscular Hemoglobin Concent 31.7 G/DL (32.0-36.0) L 31.4 G/DL (32.0-36.0) L Red Cell Distribution Width 16.1 % (11.6-14.8) H 15.6 % (11.6-14.8) H Platelet Count 438 K/UL (150-450) 393 K/UL (150-450) Mean Platelet Volume 6.6 FL (6.5-10.1) 6.6 FL (6.5-10.1) Neutrophils (%) (Auto) % (45.0-75.0) % (45.0-75.0) Lymphocytes (%) (Auto) % (20.0-45.0) % (20.0-45.0) Monocytes (%) (Auto) % (1.0-10.0) % (1.0-10.0) Eosinophils (%) (Auto) % (0.0-3.0) % (0.0-3.0) Basophils (%) (Auto) % (0.0-2.0) % (0.0-2.0) Differential Total Cells Counted 100 100 Neutrophils % (Manual) 95 % (45-75) H 82 % (45-75) H Lymphocytes % (Manual) 2 % (20-45) L 6 % (20-45) L Monocytes % (Manual) 3 % (1-10) 12 % (1-10) H Eosinophils % (Manual) 0 % (0-3) 0 % (0-3) Basophils % (Manual) 0 % (0-2) 0 % (0-2) Band Neutrophils 0 % (0-8) 0 % (0-8) Platelet Estimate Adequate Adequate Platelet Morphology Normal Normal Red Blood Cell Morphology Normal Normal Sodium Level 147 MMOL/L (136-145) H Potassium Level 4.7 MMOL/L (3.5-5.1) Chloride Level 108 MMOL/L (98-107) H Carbon Dioxide Level 26 MMOL/L (21-32) Anion Gap 13 mmol/L (5-15) Blood Urea Nitrogen 53 mg/dL (7-18) H Creatinine 1.2 MG/DL (0.55-1.30) Estimat Glomerular Filtration Rate 49.5 mL/min (>60) Glucose Level 193 MG/DL (74-106) H Calcium Level 10.3 MG/DL (8.5-10.1) H Phosphorus Level 4.3 MG/DL (2.5-4.9) Magnesium Level 2.1 MG/DL (1.8-2.4) Total Bilirubin 0.5 MG/DL (0.2-1.0) Aspartate Amino Transf (AST/SGOT) 26 U/L (15-37) Alanine Aminotransferase (ALT/SGPT) 37 U/L (12-78) Alkaline Phosphatase 90 U/L (46-116) C-Reactive Protein, Quantitative 11.3 mg/dL (0.00-0.90) H Pro-B-Type Natriuretic Peptide 1470 pg/mL (0-125) H Total Protein 8.4 G/DL (6.4-8.2) H Albumin 3.2 G/DL (3.4-5.0) L Globulin 5.2 g/dL Albumin/Globulin Ratio 0.6 (1.0-2.7) L POC Whole Blood Glucose 185 MG/DL (74-106) H Arterial Blood pH 7.485 (7.350-7.450) Arterial Blood Partial Pressure CO2 32.9 mmHg (35.0-45.0) L Arterial Blood Partial Pressure O2 87.1 mmHg (75.0-100.0) Arterial Blood HCO3 24.2 mmol/L (22.0-26.0) Arterial Blood Oxygen Saturation 96.3 % (95-100) Arterial Blood Base Excess 1.4 (-2-2) [place] Test Positive Lactic Acid Level 2.30 mmol/L (0.4-2.0) H Test 01/28/20 12:24 Lactic Acid Level 3.00 mmol/L (0.66-2.22) H Plan Problems: (1) Pneumonia (2) Sepsis Assessment & Plan: leukocytosis anemia lactic acidosis agree with GI recommend EGD planned for 12/31 hold feeding for now trend h/h monitor for bleeding no acute hemorrhage will be available in event needs exploration for hemostasis prbc as per heme thank you will follow with recs cont abx worsening wbc wbc trending down comfortable appearing no n/v hypotensive in ICU again PICC ordered Pt presented on admission in emaciated state. Pt has tracheostomy and GT. NO skin concerns noted to skin under collar of trach. NO erythema or evidence of skin erosion at GT site. Pt noted to have scaly pimple-like rash with webbing noted to R and L axillae, undersides of both breasts, Bilat groin and lower back. Tracking and webbing noted to hands and feet. Pt restless and scratching at skin. Non-Blanching erythema without induration or fluctuance noted to R and L hips and trochanteric areas.Non-blanching erythema noted along spine. Non-Blanching erythema without induration noted to Sacrum. Non-Blanching erythema noted to R and L [place] and both heels. Tx.Plan: Please apply Cavilon Skin Barrier to each bony Prominences at risks for Skin Breakdown. Cover each area with Optifoam drsgs. Change every 7 days and prn. Apply Moisture Barrier Paste to Sacrum. Cover with Optifoam drsg. Change every 3 days and prn. Reposition at least every 2hours or as tolerated. Off-load heels with pillow. APM/EMELI Mattress overlay. improving cont current care plan There is marked enlargement of the third and lateral ventricles and extra axial CSF spaces, in particular the former. There is considerable periventricular deep white matter low-attenuation. Otherwise normal mobley-white differentiation. No acute hemorrhage or edema. No mass effect nor midline shift. Visualized orbits and sinuses are unremarkable. The calvarium is intact Impression: Third and lateral ventriculomegaly. Associated enlargement of the extra axial CSF spaces indicates that this is probably due to central volume loss, but the possibility of hydrocephalus should also be considered. At the degree of volume loss is considerably out of proportion to patient's age. Correlate with clinical history Periventricular deep white matter low-attenuation. Probably on the basis of microvascular ischemic change but given patient's age the possibility of demyelinating disease should be considered as well. Negative for acute intracranial bleed or mass effect (3) GI bleed (4) G tube feedings Assessment & Plan: DAILY ESTIMATED NEEDS: Needs based on Underweight, critical care 37.3kg 30-40 kcals/kg [id number] total kcals 1.25-2 g protein/kg 47-75 g total protein 25-35 mL/kg 933-1306 total fluid mLs NUTRITION DIAGNOSIS: Increased kcal and pro needs r/t underweight status as evidenced by BMI 14.1, pt is 68% of ideal body weight w/ generalized severe wasting, trach and peg dep. CURRENT TF:Vital AF 1.2 @55 x20 hrs ENTERAL NUTRITION RECOMMENDATIONS: Vital AF 1.2 @ 55ml/hr x20 hrs to provide 1100ml 1320kcal 83g prot, 892ml free water - Rec to continue elemental TF formula while stool C-diff positive, +LBM - HOLD 1HR BEFORE AND AFTER SYNTHROID MEDS - Flush per MD. HOB over 30 degrees ADDITIONAL RECOMMENDATIONS: 1) Per SNF: 5'4" and 81# Maintain calibrated bed scale wts w/ added P200 mattress 2) Lytes daily madhav w/ loose stools, replete as needed 3) Skin integrity: Continue BRIAN VIA GT BID + Vit C 4) Accuchecks for Hypoglycemia 5) Add probiotics for stool C-diff+ . George Woods Jan 28, 2020 16:56
[2020-01-28 18:36] LABS: HEMATOCRIT 35.5 % (37.0-47.0); HEMOGLOBIN 11.1 G/DL (12.0-16.0); MEAN CORPUSCULAR VOLUME 97 FL (80-99); PLATELET COUNT 287 K/UL (150-450); RED BLOOD COUNT 3.65 M/UL (4.20-5.40); RED CELL DISTRIBUTION WIDTH 16.7 % (11.6-14.8)
[2020-01-28] MEDS: Pantoprazole 80 MG in NS 250 ML IV SCH (19:08)
[2020-01-28 19:16] LABS: WHITE BLOOD COUNT 39.4 K/UL (4.8-10.8)
[2020-01-28] MEDS: OXcarbazepine 150mg tab GT SCH (21:03)
[2020-01-29] VITALS (24 sets, daily range): BP systolic 87–108; BP diastolic 51–82
[2020-01-29] MEDS: D5 1/2NS 1,000 ML IV SCH ×2 (03:16→23:07)
[2020-01-29] MEDS: Pantoprazole 80 MG in NS 250 ML IV SCH ×3 (04:16→23:34)
[2020-01-29 07:31] LABS: ALANINE AMINOTRANSFERASE 24 U/L (12-78); ALBUMIN 2.4 G/DL (3.4-5.0); ALBUMIN/GLOBULIN RATIO 0.7 (1.0-2.7); ALKALINE PHOSPHATASE 54 U/L (46-116); ANION GAP 9 mmol/L (5-15); ASPARTATE AMINO TRANSFERASE 18 U/L (15-37); BILIRUBIN,TOTAL 0.4 MG/DL (0.2-1.0); BLOOD UREA NITROGEN 32 mg/dL (7-18); CALCIUM 8.1 MG/DL (8.5-10.1); CARBON DIOXIDE 25 MMOL/L (21-32); CHLORIDE 115 MMOL/L (98-107); CREATININE 0.6 MG/DL (0.55-1.30); POTASSIUM 2.9 MMOL/L (3.5-5.1); SODIUM 149 MMOL/L (136-145)
[2020-01-29 07:33] LABS: HEMATOCRIT 31.8 % (37.0-47.0); HEMOGLOBIN 9.8 G/DL (12.0-16.0); MEAN CORPUSCULAR VOLUME 95 FL (80-99); PLATELET COUNT 242 K/UL (150-450); RED BLOOD COUNT 3.37 M/UL (4.20-5.40); RED CELL DISTRIBUTION WIDTH 15.2 % (11.6-14.8)
[2020-01-29 07:46] LABS: WHITE BLOOD COUNT 33.3 K/UL (4.8-10.8)
[2020-01-29] MEDS: Ascorbic Acid 500mg tab GT SCH (09:27)
[2020-01-29] MEDS: Thiamine 100mg tab GT SCH (09:28)
[2020-01-29] MEDS: Cefepime HCl 1 GM in D5W 55 ML IVPB SCH ×2 (09:29→21:41)
[2020-01-29] MEDS: Norepinephrine 4mg/NS Premix 250 ML IV SCH (09:30)
[2020-01-29] MEDS: Potassium Phosphate 15mm/250ml 250 ML IVPB SCH ×2 (09:33→13:44)
[2020-01-29] MEDS: levETIRAcetam 500mg/5ml Liquid GT SCH ×2 (09:42→21:41)
[2020-01-29] MEDS: Gabapentin 300 MG/6 ML Soln GT SCH ×3 (09:54→17:35)
[2020-01-29] MEDS: Multivitamins W/Minerals 15 ML UDC GT SCH (09:54)
--- NOTE | 2020-01-29 10:03 | Pulmonolgy Critical Care Note ---
Ivanna Mora [employer] 01/29/20 1003: Critical Care - Asmt/Plan Assessment/Plan: ASSESSMENT VDRF/trach status Sepsis with shock Possible pneumonia UTI recurrent GI bleeding C dif colitis, persistent Anemia secondary to GI bleeding Aspiration risk Dysphagia, feeding by G-tube Encephalopathy Acute kidney injury likely secondary to dehydration Recurrent bradycardia persistent Hypotension Electrolyte imbalance Severe protein calorie malnutrition Hx of hypertension History of CVA Seizure disorder with witnessed seizure episode 01/07 Psychiatric disorder Presumed scabies, s/p Rx Thrombocytopenia-transient- resolved PLAN OF CARE in ICU on IVF, BP slightly improved , IVF rate increased to 100 vent support, pulm toilet ABG stable on current settings on SIMV mode 450-30-12 PEEP5 , no signs of resp distress on these settings keep settings as is and titrate as needed now tachypneic intermittently CXR 01/27 no acute disease pulm toilet via HHN leuk slightly trended down, still significant , no fevers pancx-per ID CXR 01/13- no acute findings KUB 01/13- no acute findings UA + yeast , 01/12 UCX +yeast, started on Fluconazole 01/14 as per ID - completed BCX 01/12 NGTD abx as per ID recs Vanco po was prior dc and switched to Dificid , also on Flagyl per GI -till 01/28 , extended till 02/03 inflammatory markers : ESR-42, CRP- wnl WBC smear NGT UA + bacteria, no pyuria, fup UCX BCX 01/26 NGTD added Cefepime for possible PNA CT A/P if able to do prior stool C dif 01/07 +, on oral vanco rapid COVID 19 NGT in ED aspiration precautions Venous Duplex BLE -negative, get SCD ( unable to give a/c given anemia) closely monitor hemodynamic status Protonix IV GT feeding stool OB positive transfuse to keep Hgb > 7. heme and GI follows s/p EGD 01/01 -> gastric ulcer across G tube site , no active bleeding HH at baseline monitor for any further episodes of GI bleeding trend LFT-> trended down, hep panel NGT hx of cirrhosis- per GI management hypotension-> Midodrine and Dopamine gtt , s/p IV fluids, cardio follows monitor renal parameters, lytes, avoid nephrotoxic BUN trending down, creat stable, likely prerenal due to dehydration replace e/lytes as per nephro recs , K and Mg replaced this am as per nephro monitor volumes seizure precautions, antiepileptic optimized as per neuro recs ammonia 49, fup with further neuro recs EEG - grossly abnormal; mild to mod encephalopathy, single ictal episode CT head no acute IC pathology BP management with current regimen SNF meds supportive care dietary recs s/p 12/31 Rx for presumed scabies with permethrin and Ivermectin, repeated Ivermectin 01/08 case discussed and evaluated by supervising physician Critical Care - Objective Last 24 Hour Vital Signs Date Time Temp Pulse Resp B/P (MAP) Pulse Ox O2 Delivery O2 Flow Rate FiO2 01/29/20 09:30 105/69 01/29/20 08:50 99 01/29/20 07:00 92 22 102/72 (82) 100 01/29/20 06:48 92 20 30 01/29/20 06:00 93 23 101/70 (80) 100 01/29/20 05:00 98 22 99/66 (77) 100 01/29/20 04:00 30 01/29/20 04:00 Mechanical Ventilator 01/29/20 04:00 94 01/29/20 04:00 99.4 101 24 100/63 (75) 100 01/29/20 03:00 98 25 101/76 (84) 100 01/29/20 02:44 96 25 30 01/29/20 02:00 99 26 101/65 (77) 100 01/29/20 01:00 97 26 101/66 (78) 100 01/29/20 00:00 30 01/29/20 00:00 97 01/29/20 00:00 Mechanical Ventilator 01/29/20 00:00 98.6 97 25 95/63 (74) 100 01/28/20 23:06 98 23 30 01/28/20 23:00 99 27 96/64 (75) 100 01/28/20 22:00 99 25 94/70 (78) 100 01/28/20 21:00 97 25 99/65 (76) 100 01/28/20 20:00 93 01/28/20 20:00 Mechanical Ventilator 01/28/20 20:00 98.8 99 26 94/70 (78) 100 01/28/20 20:00 30 9/13/20 19:20 91 22 30 01/28/20 19:00 91 20 100/64 (76) 100 01/28/20 18:00 90 20 95/60 (72) 100 01/28/20 17:00 84 20 97/65 (76) 100 01/28/20 16:00 86 01/28/20 16:00 30 01/28/20 16:00 Mechanical Ventilator 01/28/20 16:00 98.9 87 20 94/72 (79) 100 01/28/20 15:20 93 19 30 01/28/20 15:00 97 20 99/75 (83) 100 01/28/20 14:00 100 20 96/61 (73) 100 01/28/20 13:00 114 20 96/79 (85) 100 01/28/20 12:12 99.5 01/28/20 12:00 Mechanical Ventilator 01/28/20 12:00 114 01/28/20 12:00 99.6 109 20 103/78 (86) 100 01/28/20 12:00 30 01/28/20 11:00 124 20 89/56 (67) 100 01/28/20 10:50 118 28 30 01/28/20 10:17 74/51 (59) 98 01/28/20 10:00 99.3 120 20 88/56 (67) 100 01/28/20 10:00 Mechanical Ventilator Objective: General Appearance: bedridden, pale, chronically ill looking, older than her biological age ; vent dependent female ; on vent SIMV 450-30%-12, PEEP 5 Lines, tubes and drains: peripheral, trach HEENT: normocephalic, atraumatic Neck: trach - Portex #7, secretions small amount, yellow color, thin consistency Respiratory/Chest: CTAB Cardiovascular/Chest: regular rate, regular rhythm Abdomen: non tender, soft, G tube Genitourinary/Rectal: [place] Extremities: no edema, muscle atrophy Neurologic: abnormal gait, poorly responsive, more awake , eyes open Musculoskeletal: atrophy BLE Skin: multiple tattoos Micro: Microbiology Date/Time Source Procedure Growth Status 01/27/20 19:24 Blood Blood Culture - Preliminary NO GROWTH AFTER 24 HOURS Resulted 01/27/20 19:14 Blood Blood Culture - Preliminary NO GROWTH AFTER 24 HOURS Resulted 01/28/20 00:00 Urine,Clean Catch Urine Culture - Preliminary Resulted Accucheck: 113 Critical Care - Subjective ROS Limited/Unobtainable: Yes Interval Events: still with significant leukocytosis, no fevers BP low but better with IVF , no pressors resp status remains stable, CXR 01/27 no acute disease ABG 01/27 stable Hgb dropped from 11.1 to 9.8 in 24 hrs Condition: critical EKG Rhythm: Sinus Rhythm FI02: 30 Vent Support Breath Rate: 12 Vent Support Mode: IMV/SIMV Vent Tidal Volume: 450 Sputum Amount: Small PEEP: 5.0 PIP: 18 Fluids: D51/2 NS at 100 Tube Feeding Amount: 55 I&O: Intake and Output 01/28/20 01/29/20 19:00 07:00 Intake Total 1355 ml Output Total 1300 ml 800 ml Balance -1300 ml 555 ml IV Total 1355 ml Output Urine Total 1000 ml Stool Total 300 ml 800 ml CXR: 01/27 no acute disease Jeyson Anderson MD 01/29/20 1105: Critical Care - Asmt/Plan Assessment/Plan: Patient seen and examined with [employer] and I agree with the above formulated assessment and plan. continue antibiotics, WBC coming down BP has been stable off pressors KUB noted concern for possible obstruction, g-tube on suction Time Spent (Minutes): 40 - cc Ivanna Mora NP Jan 29, 2020 10:03 Jesyon Anderson MD Jan 29, 2020 11:05
--- NOTE | 2020-01-29 10:52 | Hematology/Onc Progress Note ---
Assessment/Plan Assessment/Plan # Anemia rule out underlying gi bleed --> Dr. Carrillo has been consulted-->endosco gastric ulceration --> trend hgb 7-->7.4-->7.9-->8.1->9.6-->8.5->9.1-->10-->11-->10.3-->10.4-->11-> 9.8 --> anemia panel ordered-->reviewed --> prn transfusion --> protonix started # Leukocytosis is likely related to pna on imaging --> abx has been started --> if wbc worsens, consider abx vanc/zosyn--> ceftriaxone-->vanc->fluc/flagyl/ vanc-->flagyl/fidoxomicin->vanc/cefepime/flagyl --> smear is noted --> wbc 25-->15-->14-->16->7.6-->12-->20->13->11->14-->33 --> pressors prn # Thrombocytopenia med related v labs error --> plt trend 167-->61-->227->373 --> meds have been reviewed --> no hep or lovenox # Sepsis --> on abx for pna --> pressors as needed # Pneumonia --> pulm, Dr. 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 [facility] consultant care, will follow Subjective Allergies: Coded Allergies: CARBAMAZEPINE (Verified Allergy, Unknown, 12/31/19) LORAZEPAM (Verified Allergy, Unknown, 12/31/19) All Systems: reviewed and negative except above Subjective 01/01 altered, trach, no bleedin wbc improved on abx, seen by gi 01/02 egd study noted, also with plts 61k, have vitaly Armendariz Rn, will recheck cbc 01/03 remains agitated, vitaly rn, no bleeding, cbc noted as well as id recs 01/04 on vent, with melena overnight, no bleeding, vitaly rn, labs reviewed 01/06 on vent, remains agitated, no bleeding, vitaly rn, smear is noted 01/07 on vent, restless, asymptomatic, noncooperative 01/[address] John obtained, reviewed, meds adjusted, eeg pending 01/09 labs noted, no bleeding, ativan has been discontinued, meds reviewed 01/10 trach to vent, agitated, with wrist restraints, no major changes, no bleeding 01/11 labs are reviewed, on trach to vent, no bleeding, agitated overnight, no complaints 01/13 labs noted, no bleeding, is on vent/trach, no bleeding, vitaly rn, labs are noted 01/14 labs are noted, no bleeding, remains on v/t, remains agitated, no bleeding 01/15 is c.diff positive, wbc higher at 21k, labs noted, on abx, reviewed gi, id recs 01/16 remains on vent, wbc is improved, in sr, as abx per id 01/17 recieved dopamine, tube feeds, on soft restraints, no bleeding, vitaly rn 01/18 labs are noted, no bleeding, vitaly rn, no major changes 01/20 on dopamine gtt, with restraints, no major changes, labs noted 01/21 labs reviewed, no bleeding, vitaly rn, no major changes 01/22 transferred to icu for higher loc, dopamine on hold as bp is good, have increased Synthroid 01/23 labs are pending, meds noted, no bleeding, dopamine gtt ongoing, cbc noted 01/24 still nv, no bleeding, labs reviewed, vitaly rn, with rectal tube in place, on dopamine gtt 01/25 is on bipap, nv, no bleeding, remains on low dose pressorm hgb 11 01/27 on dopamine, hr was elevated overnight, cards aware 01/28 on vent, with ivfs running, rectal tube with red blood noted, consider gi eval Objective Objective Current Medications Medications (Trade) Dose Ordered Sig/Villa Route PRN Reason Start Time Stop Time Status Last Admin Dose Admin Acetaminophen (Tylenol) 650 mg Q6H PRN GT Temp >100.5 01/28/20 09:30 01/31/20 09:29 01/28/20 11:42 Ascorbic Acid (Vitamin C) 500 mg DAILY GT 01/28/20 09:30 02/27/20 09:29 01/29/20 09:27 Barium Sulfate (Readi-Cat 2) 450 ml NOW PRN ORAL Radiology Procedure 01/28/20 10:15 01/30/20 10:06 Barium Sulfate (Readi-Cat 2) 450 ml NOW PRN ORAL Radiology Procedure 01/28/20 15:00 01/30/20 14:51 Cefepime HCl 1 gm/ Dextrose 55 ml @ 110 mls/hr EVERY 12 HOURS IVPB 01/28/20 10:15 02/04/20 10:14 01/29/20 09:29 Dextrose/Sodium Chloride 1,000 ml @ 100 mls/hr Q10H IV 01/29/20 13:00 02/27/20 12:59 01/29/20 03:16 Fidaxomicin (Dificid) 200 mg EVERY 12 HOURS ORAL 01/28/20 21:00 02/04/20 20:59 01/29/20 09:57 Gabapentin (Neurontin) 900 mg TID GT 01/28/20 09:30 02/19/20 09:29 01/29/20 09:54 Haloperidol Lactate (Haldol) 5 mg Q6H PRN IM Agitation 01/28/20 09:30 02/15/20 09:29 Iohexol (OMNIPAQUE-300 100ml) 100 ml NOW PRN INJ Radiology Procedure 01/28/20 10:15 01/30/20 10:06 Levetiracetam (Keppra) 1,500 mg Q12HR GT 01/28/20 09:30 02/07/20 09:29 01/29/20 09:42 Levothyroxine Sodium (Synthroid) 50 mcg ACBREAKFAST GT 01/29/20 06:30 02/10/20 06:29 01/29/20 06:28 Magnesium Sulfate 100 ml @ 100 mls/hr Q1H IVPB 01/29/20 09:00 01/29/20 10:59 01/29/20 09:30 Metronidazole 100 ml @ 100 mls/hr Q8HR IVPB 01/28/20 22:00 02/04/20 21:59 01/29/20 06:27 Midodrine (Pro-Amatine) 10 mg TID GT 01/28/20 18:00 04/21/20 09:29 01/29/20 09:27 Multivitamins (Multivitamins W/ Minerals 15ml Liquid) 15 ml DAILY GT 01/28/20 09:30 02/27/20 09:29 01/29/20 09:54 Norepinephrine Bitartrate 250 ml @ 0 mls/hr Q24H IV 01/28/20 09:30 04/27/20 09:29 Ondansetron HCl (Zofran) 4 mg Q6H PRN GT Nausea & Vomiting 01/28/20 09:30 01/30/20 09:29 Oxcarbazepine (TrileptaL) 300 mg BEDTIME GT 01/28/20 21:00 02/07/20 20:59 01/28/20 21:03 Pantoprazole 80 mg/Sodium Chloride 250 ml @ 25 mls/hr Q10H IV 01/28/20 18:30 02/27/20 18:29 01/29/20 04:16 Potassium Phosphate 250 ml @ 62.5 mls/hr Q4H IVPB 01/29/20 09:00 01/29/20 16:59 01/29/20 09:33 Thiamine HCl (Vitamin B1) 100 mg DAILY GT 01/28/20 09:30 02/27/20 09:29 01/29/20 09:28 Vancomycin HCl (Vanco pharmacy to dose) 1 ea DAILY PRN MISC Per rx protocol 01/28/20 10:45 02/27/20 10:44 Vancomycin HCl 500 mg/Dextrose 110 ml @ 110 mls/hr Q24H IVPB 01/29/20 12:00 02/03/20 11:59 Last 24 Hour Vital Signs Date Time Temp Pulse Resp B/P (MAP) Pulse Ox O2 Delivery O2 Flow Rate FiO2 01/29/20 09:30 105/69 01/29/20 08:50 99 01/29/20 07:00 92 22 102/72 (82) 100 01/29/20 06:48 92 20 30 01/29/20 06:00 93 23 101/70 (80) 100 01/29/20 05:00 98 22 99/66 (77) 100 01/29/20 04:00 30 01/29/20 04:00 Mechanical Ventilator 01/29/20 04:00 94 01/29/20 04:00 99.4 101 24 100/63 (75) 100 01/29/20 03:00 98 25 101/76 (84) 100 01/29/20 02:44 96 25 30 01/29/20 02:00 99 26 101/65 (77) 100 01/29/20 01:00 97 26 101/66 (78) 100 01/29/20 00:00 30 01/29/20 00:00 97 01/29/20 00:00 Mechanical Ventilator 01/29/20 00:00 98.6 97 25 95/63 (74) 100 01/28/20 23:06 98 23 30 01/28/20 23:00 99 27 96/64 (75) 100 01/28/20 22:00 99 25 94/70 (78) 100 01/28/20 21:00 97 25 99/65 (76) 100 01/28/20 20:00 93 01/28/20 20:00 Mechanical Ventilator 01/28/20 20:00 98.8 99 26 94/70 (78) 100 01/28/20 20:00 30 01/28/20 19:20 91 22 30 01/28/20 19:00 91 20 100/64 (76) 100 01/28/20 18:00 90 20 95/60 (72) 100 01/28/20 17:00 84 20 97/65 (76) 100 01/28/20 16:00 86 01/28/20 16:00 30 01/28/20 16:00 Mechanical Ventilator 01/28/20 16:00 98.9 87 20 94/72 (79) 100 01/28/20 15:20 93 19 30 01/28/20 15:00 97 20 99/75 (83) 100 01/28/20 14:00 100 20 96/61 (73) 100 01/28/20 13:00 114 20 96/79 (85) 100 01/28/20 12:12 99.5 01/28/20 12:00 Mechanical Ventilator 01/28/20 12:00 114 01/28/20 12:00 99.6 109 20 103/78 (86) 100 01/28/20 12:00 30 01/28/20 11:00 124 20 89/56 (67) 100 01/28/20 10:50 118 28 30 01/28/20 10:17 74/51 (59) 98 01/28/20 10:00 99.3 120 20 88/56 (67) 100 01/28/20 10:00 Mechanical Ventilator 01/28/20 09:30 102/72 01/28/20 09:00 30 01/28/20 09:00 97 01/28/20 08:00 Mechanical Ventilator 01/28/20 08:00 98.4 118 23 108/60 (76) 99 01/28/20 07:50 140 01/28/20 07:20 137 31 30 01/28/20 04:00 30 01/28/20 04:00 Mechanical Ventilator 01/28/20 04:00 131 01/28/20 04:00 98.4 120 26 108/60 (76) 99 01/28/20 03:15 130 25 30 01/28/20 00:00 121 01/28/20 00:00 30 01/28/20 00:00 Mechanical Ventilator 01/28/20 00:00 97.9 121 26 100/73 (82) 100 01/27/20 23:05 113 23 30 01/27/20 20:00 30 01/27/20 20:00 Mechanical Ventilator 01/27/20 20:00 123 01/27/20 20:00 98.2 124 24 90/64 (73) 100 01/27/20 19:46 110/68 01/27/20 18:52 117 24 30 01/27/20 16:37 107 01/27/20 16:12 97.7 108 25 110/68 (82) 100 01/27/20 16:03 30 01/27/20 16:01 Mechanical Ventilator 01/27/20 15:10 86 23 30 01/27/20 12:00 Mechanical Ventilator 01/27/20 12:00 30 01/27/20 12:00 94 01/27/20 12:00 97.2 82 17 133/76 (95) 100 01/27/20 11:10 85 14 30 Intake and Output 01/28/20 01/29/20 19:00 07:00 Intake Total 1355 ml Output Total 1300 ml 800 ml Balance -1300 ml 555 ml IV Total 1355 ml Output Urine Total 1000 ml Stool Total 300 ml 800 ml Labs Test 01/26/20 11:39 01/27/20 00:35 01/27/20 03:25 01/27/20 06:27 POC Whole Blood Glucose 86 MG/DL (74-106) 105 MG/DL (74-106) 239 MG/DL (74-106) White Blood Count 14.4 K/UL (4.8-10.8) Red Blood Count 4.28 M/UL (4.20-5.40) Hemoglobin 12.9 G/DL (12.0-16.0) Hematocrit 39.9 % (37.0-47.0) Mean Corpuscular Volume 93 FL (80-99) Mean Corpuscular Hemoglobin 30.1 PG (27.0-31.0) Mean Corpuscular Hemoglobin Concent 32.3 G/DL (32.0-36.0) Red Cell Distribution Width 15.1 % (11.6-14.8) Platelet Count 415 K/UL (150-450) Mean Platelet Volume 6.0 FL (6.5-10.1) Neutrophils (%) (Auto) 74.3 % (45.0-75.0) Lymphocytes (%) (Auto) 17.1 % (20.0-45.0) Monocytes (%) (Auto) 4.5 % (1.0-10.0) Eosinophils (%) (Auto) 3.6 % (0.0-3.0) Basophils (%) (Auto) 0.5 % (0.0-2.0) Test 01/27/20 06:30 01/27/20 17:01 01/27/20 20:55 01/28/20 00:00 POC Whole Blood Glucose 114 MG/DL (74-106) Urine Color Yellow Urine Appearance Cloudy Urine pH 6.5 (4.5-8.0) Urine Specific [place] 1.020 (1.005-1.035) Urine Protein 2+ (NEGATIVE) Urine Glucose (UA) Negative (NEGATIVE) Urine Ketones 1+ (NEGATIVE) Urine Blood 2+ (NEGATIVE) Urine Nitrite Positive (NEGATIVE) Urine Bilirubin Negative (NEGATIVE) Urine Urobilinogen 1 MG/DL (0.0-1.0) Urine Leukocyte Esterase 3+ (NEGATIVE) Urine RBC 5-10 /HPF (0 - 2) Urine WBC 2-4 /HPF (0 - 2) Urine Squamous Epithelial Cells Few /LPF (NONE/OCC) Urine Calcium Oxalate Crystals Moderate /LPF (NONE) Urine Amorphous Sediment Moderate /LPF (NONE) Urine Bacteria Many /HPF (NONE) Urine Yeast Occasional /HPF (NONE) Test 01/28/20 00:45 01/28/20 05:05 01/28/20 06:11 01/28/20 09:48 White Blood Count 38.0 K/UL (4.8-10.8) Red Blood Count 5.31 M/UL (4.20-5.40) Hemoglobin 15.7 G/DL (12.0-16.0) Hematocrit 49.5 % (37.0-47.0) Mean Corpuscular Volume 93 FL (80-99) Mean Corpuscular Hemoglobin 29.5 PG (27.0-31.0) Mean Corpuscular Hemoglobin Concent 31.7 G/DL (32.0-36.0) Red Cell Distribution Width 16.1 % (11.6-14.8) Platelet Count 438 K/UL (150-450) Mean Platelet Volume 6.6 FL (6.5-10.1) Neutrophils (%) (Auto) % (45.0-75.0) Lymphocytes (%) (Auto) % (20.0-45.0) Monocytes (%) (Auto) % (1.0-10.0) Eosinophils (%) (Auto) % (0.0-3.0) Basophils (%) (Auto) % (0.0-2.0) Differential Total Cells Counted 100 Neutrophils % (Manual) 95 % (45-75) Lymphocytes % (Manual) 2 % (20-45) Monocytes % (Manual) 3 % (1-10) Eosinophils % (Manual) 0 % (0-3) Basophils % (Manual) 0 % (0-2) Band Neutrophils 0 % (0-8) Platelet Estimate Adequate Platelet Morphology Normal Red Blood Cell Morphology Normal Sodium Level 147 MMOL/L (136-145) Potassium Level 4.7 MMOL/L (3.5-5.1) Chloride Level 108 MMOL/L (98-107) Carbon Dioxide Level 26 MMOL/L (21-32) Anion Gap 13 mmol/L (5-15) Blood Urea Nitrogen 53 mg/dL (7-18) Creatinine 1.2 MG/DL (0.55-1.30) Estimat Glomerular Filtration Rate 49.5 mL/min (>60) Glucose Level 193 MG/DL (74-106) Calcium Level 10.3 MG/DL (8.5-10.1) Phosphorus Level 4.3 MG/DL (2.5-4.9) Magnesium Level 2.1 MG/DL (1.8-2.4) Total Bilirubin 0.5 MG/DL (0.2-1.0) Aspartate Amino Transf (AST/SGOT) 26 U/L (15-37) Alanine Aminotransferase (ALT/SGPT) 37 U/L (12-78) Alkaline Phosphatase 90 U/L (46-116) C-Reactive Protein, Quantitative 11.3 mg/dL (0.00-0.90) Pro-B-Type Natriuretic Peptide 1470 pg/mL (0-125) Total Protein 8.4 G/DL (6.4-8.2) Albumin 3.2 G/DL (3.4-5.0) Globulin 5.2 g/dL Albumin/Globulin Ratio 0.6 (1.0-2.7) POC Whole Blood Glucose 185 MG/DL (74-106) Arterial Blood pH 7.485 (7.350-7.450) Arterial Blood Partial Pressure CO2 32.9 mmHg (35.0-45.0) Arterial Blood Partial Pressure O2 87.1 mmHg (75.0-100.0) Arterial Blood HCO3 24.2 mmol/L (22.0-26.0) Arterial Blood Oxygen Saturation 96.3 % (95-100) Arterial Blood Base Excess 1.4 (-2-2) Tacos Test Positive Test 01/28/20 11:10 01/28/20 12:24 01/28/20 18:15 01/29/20 06:37 White Blood Count 43.3 K/UL (4.8-10.8) 39.4 K/UL (4.8-10.8) 33.3 K/UL (4.8-10.8) Red Blood Count 4.70 M/UL (4.20-5.40) 3.65 M/UL (4.20-5.40) 3.37 M/UL (4.20-5.40) Hemoglobin 13.8 G/DL (12.0-16.0) 11.1 G/DL (12.0-16.0) 9.8 G/DL (12.0-16.0) Hematocrit 43.9 % (37.0-47.0) 35.5 % (37.0-47.0) 31.8 % (37.0-47.0) Mean Corpuscular Volume 93 FL (80-99) 97 FL (80-99) 95 FL (80-99) Mean Corpuscular Hemoglobin 29.3 PG (27.0-31.0) 30.4 PG (27.0-31.0) 29.2 PG (27.0-31.0) Mean Corpuscular Hemoglobin Concent 31.4 G/DL (32.0-36.0) 31.2 G/DL (32.0-36.0) 30.8 G/DL (32.0-36.0) Red Cell Distribution Width 15.6 % (11.6-14.8) 16.7 % (11.6-14.8) 15.2 % (11.6-14.8) Platelet Count 393 K/UL (150-450) 287 K/UL (150-450) 242 K/UL (150-450) Mean Platelet Volume 6.6 FL (6.5-10.1) 7.3 FL (6.5-10.1) 7.1 FL (6.5-10.1) Neutrophils (%) (Auto) % (45.0-75.0) % (45.0-75.0) % (45.0-75.0) Lymphocytes (%) (Auto) % (20.0-45.0) % (20.0-45.0) % (20.0-45.0) Monocytes (%) (Auto) % (1.0-10.0) % (1.0-10.0) % (1.0-10.0) Eosinophils (%) (Auto) % (0.0-3.0) % (0.0-3.0) % (0.0-3.0) Basophils (%) (Auto) % (0.0-2.0) % (0.0-2.0) % (0.0-2.0) Differential Total Cells Counted 100 100 100 Neutrophils % (Manual) 82 % (45-75) 88 % (45-75) 87 % (45-75) Lymphocytes % (Manual) 6 % (20-45) 7 % (20-45) 9 % (20-45) Monocytes % (Manual) 12 % (1-10) 4 % (1-10) 4 % (1-10) Eosinophils % (Manual) 0 % (0-3) 0 % (0-3) 0 % (0-3) Basophils % (Manual) 0 % (0-2) 1 % (0-2) 0 % (0-2) Band Neutrophils 0 % (0-8) 0 % (0-8) 0 % (0-8) Platelet Estimate Adequate Adequate Adequate Platelet Morphology Normal Normal Normal Red Blood Cell Morphology Normal Lactic Acid Level 2.30 mmol/L (0.4-2.0) 3.00 mmol/L (0.66-2.22) 1.60 mmol/L (0.4-2.0) Hypochromasia 1+ 2+ Anisocytosis 1+ 1+ Sodium Level 149 MMOL/L (136-145) Potassium Level 2.9 MMOL/L (3.5-5.1) Chloride Level 115 MMOL/L (98-107) Carbon Dioxide Level 25 MMOL/L (21-32) Anion Gap 9 mmol/L (5-15) Blood Urea Nitrogen 32 mg/dL (7-18) Creatinine 0.6 MG/DL (0.55-1.30) Estimat Glomerular Filtration Rate > 60 mL/min (>60) Glucose Level 122 MG/DL (74-106) Uric Acid 4.5 MG/DL (2.6-7.2) Calcium Level 8.1 MG/DL (8.5-10.1) Phosphorus Level 2.0 MG/DL (2.5-4.9) Magnesium Level 1.7 MG/DL (1.8-2.4) Total Bilirubin 0.4 MG/DL (0.2-1.0) Gamma Glutamyl Transpeptidase 62 U/L (5-85) Aspartate Amino Transf (AST/SGOT) 18 U/L (15-37) Alanine Aminotransferase (ALT/SGPT) 24 U/L (12-78) Alkaline Phosphatase 54 U/L (46-116) C-Reactive Protein, Quantitative 11.9 mg/dL (0.00-0.90) Pro-B-Type Natriuretic Peptide 306 pg/mL (0-125) Total Protein 6.0 G/DL (6.4-8.2) Albumin 2.4 G/DL (3.4-5.0) Globulin 3.6 g/dL Albumin/Globulin Ratio 0.7 (1.0-2.7) Height (Feet): 5 Height (Inches): 1.00 Weight (Pounds): 71 Objective Vital Signs General Appearance: ++ cachectic, chronically ill HEENT: normocephalic, atraumatic ++ trach Resp: other -. vent ++ Cardiovascular: regular rate, rhythm, no edema Gastrointestinal: gtube in place, without erythema Rectal: other - Hemoccult positive [place]: back normal, gait/station normal, non-tender Lymphatic: no adenopathy Baltazar Cortes MD Jan 29, 2020 10:52
[2020-01-29] MEDS: Vancomycin 500mg/D5W 110ml IVPB SCH ×2 (11:17)
--- NOTE | 2020-01-29 12:14 | General Progress Note ---
Assessment/Plan Problem List: (1) G tube feedings ICD Codes: Z93.1 - Gastrostomy status SNOMED: 976519240, 020482580, 704793866 (2) GI bleed ICD Codes: K92.2 - Gastrointestinal hemorrhage, unspecified SNOMED: 57285652 (3) Sepsis ICD Codes: A41.9 - Sepsis, unspecified organism SNOMED: 49769595 (4) Pneumonia ICD Codes: J18.9 - Pneumonia, unspecified organism SNOMED: 841500634 Status: stable, other - Patient is now hypotensive before over 46 she will receive 500 cc of normal saline bolus to be repeated blood pressure remained below 90 further management will be decided following the boluses treatment repeat laboratory tests will be done in a.m. GEM MCKAY MD Assessment/Plan: s/p EGD gastric ulcer monitor H&H C. Diff positive off ppi po dificid still has diarrhea GIB over night add famotidine IV plan EGD when WBC is better fu CT will fu Subjective ROS Limited/Unobtainable: No Allergies: Coded Allergies: CARBAMAZEPINE (Verified Allergy, Unknown, 12/31/19) LORAZEPAM (Verified Allergy, Unknown, 12/31/19) Objective Last 24 Hour Vital Signs Date Time Temp Pulse Resp B/P (MAP) Pulse Ox O2 Delivery O2 Flow Rate FiO2 01/29/20 11:15 90 20 30 01/29/20 09:30 105/69 01/29/20 08:50 99 01/29/20 08:00 30 01/29/20 07:00 92 22 102/72 (82) 100 01/29/20 06:48 92 20 30 01/29/20 06:00 93 23 101/70 (80) 100 01/29/20 05:00 98 22 99/66 (77) 100 01/29/20 04:00 30 01/29/20 04:00 Mechanical Ventilator 01/29/20 04:00 94 01/29/20 04:00 99.4 101 24 100/63 (75) 100 01/29/20 03:00 98 25 101/76 (84) 100 01/29/20 02:44 96 25 30 01/29/20 02:00 99 26 101/65 (77) 100 01/29/20 01:00 97 26 101/66 (78) 100 01/29/20 00:00 30 01/29/20 00:00 97 01/29/20 00:00 Mechanical Ventilator 01/29/20 00:00 98.6 97 25 95/63 (74) 100 01/28/20 23:06 98 23 30 01/28/20 23:00 99 27 96/64 (75) 100 01/28/20 22:00 99 25 94/70 (78) 100 01/28/20 21:00 97 25 99/65 (76) 100 01/28/20 20:00 93 01/28/20 20:00 Mechanical Ventilator 01/28/20 20:00 98.8 99 26 94/70 (78) 100 01/28/20 20:00 30 01/28/20 19:20 91 22 30 01/28/20 19:00 91 20 100/64 (76) 100 01/28/20 18:00 90 20 95/60 (72) 100 01/28/20 17:00 84 20 97/65 (76) 100 01/28/20 16:00 86 01/28/20 16:00 30 01/28/20 16:00 Mechanical Ventilator 01/28/20 16:00 98.9 87 20 94/72 (79) 100 01/28/20 15:20 93 19 30 01/28/20 15:00 97 20 99/75 (83) 100 01/28/20 14:00 100 20 96/61 (73) 100 01/28/20 13:00 114 20 96/79 (85) 100 Intake and Output 01/28/20 01/29/20 19:00 07:00 Intake Total 1355 ml Output Total 1300 ml 800 ml Balance -1300 ml 555 ml IV Total 1355 ml Output Urine Total 1000 ml Stool Total 300 ml 800 ml Laboratory Tests 01/28/20 12:24: Lactic Acid Level 3.00H 01/28/20 18:15: White Blood Count 39.4*H, Red Blood Count 3.65L, Hemoglobin 11.1L, Hematocrit 35.5L, Mean Corpuscular Volume 97, Mean Corpuscular Hemoglobin 30.4, Mean Corpuscular Hemoglobin Concent 31.2L, Red Cell Distribution Width 16.7H, Platelet Count 287, Mean Platelet Volume 7.3, Neutrophils (%) (Auto) , Lymphocytes (%) (Auto) , Monocytes (%) (Auto) , Eosinophils (%) (Auto) , Basophils (%) (Auto) , Differential Total Cells Counted 100, Neutrophils % ( Manual) 88H, Lymphocytes % (Manual) 7L, Monocytes % (Manual) 4, Eosinophils % ( Manual) 0, Basophils % (Manual) 1, Band Neutrophils 0, Platelet Estimate Adequate, Platelet Morphology Normal, Hypochromasia 1+, Anisocytosis 1+ 01/29/20 06:32: Ferritin 354 01/29/20 06:37: Lactic Acid Level 1.60, White Blood Count 33.3*H, Red Blood Count 3.37L, Hemoglobin 9.8L, Hematocrit 31.8L, Mean Corpuscular Volume 95, Mean Corpuscular Hemoglobin 29.2, Mean Corpuscular Hemoglobin Concent 30.8L, Red Cell Distribution Width 15.2H, Platelet Count 242, Mean Platelet Volume 7.1, Neutrophils (%) (Auto) , Lymphocytes (%) (Auto) , Monocytes (%) (Auto) , Eosinophils (%) (Auto) , Basophils (%) (Auto) , Differential Total Cells Counted 100, Neutrophils % (Manual) 87H, Lymphocytes % (Manual) 9L, Monocytes % (Manual) 4, Eosinophils % (Manual) 0, Basophils % (Manual) 0, Band Neutrophils 0 , Platelet Estimate Adequate, Platelet Morphology Normal, Hypochromasia 2+, Anisocytosis 1+, Sodium Level 149H, Potassium Level 2.9L, Chloride Level 115H, Carbon Dioxide Level 25, Anion Gap 9, Blood Urea Nitrogen 32H, Creatinine 0.6, Estimat Glomerular Filtration Rate > 60, Glucose Level 122H, Uric Acid 4.5, Calcium Level 8.1#L, Phosphorus Level 2.0L, Magnesium Level 1.7L, Total Bilirubin 0.4, Gamma Glutamyl Transpeptidase 62, Aspartate Amino Transf (AST/ SGOT) 18, Alanine Aminotransferase (ALT/SGPT) 24, Alkaline Phosphatase 54, C- Reactive Protein, Quantitative 11.9H, Pro-B-Type Natriuretic Peptide 306H, Total Protein 6.0L, Albumin 2.4L, Globulin 3.6, Albumin/Globulin Ratio 0.7L Height (Feet): 5 Height (Inches): 1.00 Weight (Pounds): 71 General Appearance: lethargic EENT: PERRL/EOMI Neck: supple Cardiovascular: normal rate Respiratory/Chest: decreased breath sounds Abdomen: hypoactive bowel sounds Extremities: non-tender Satish Carrillo MD Jan 29, 2020 12:14
--- NOTE | 2020-01-29 12:32 | Nephrology Progress Note ---
Assessment/Plan Problem List: (1) RICHARD (acute kidney injury) (2) Dehydration (3) Anemia (4) GI bleed (5) Malnutrition (6) Seizure disorder (7) Electrolyte imbalance Assessment Renal failure, in the form of prerenal azotemia, most likely secondary to GI bleed GI bleed, leading to severe anemia Sepsis, pneumonia Chronic tracheostomy, ventilator dependent History of CVA History of seizure disorder History of psychiatric disorder Severe malnutrition Electrolyte abnormalities Plan January 28: Status quo. Electrolyte abnormalities noted. Mag Victor and potassium supplement IV given. Renal parameters stable. Continue per consultants. Leukocytosis persists. January 27: Significant rise in white blood cell counts. Hypotensive. Now in ICU. Will give albumin bolus. Continue to monitor renal parameters. Continue per ID advice. January 26: Continue to monitor renal parameters. Patient remains on ventilator. Patient is full code. Continue per consultants. January 25: Status quo. Labs reviewed. Continue per consultants. January 24: Status unchanged. Labs reviewed. Remains stable from renal standpoint of view. January 23: Back in [facility]. Stable from renal standpoint of view. Continue per consultants. January 22: Patient in ICU now. Vital signs and heart rate and blood pressure appears to be stable. Patient had an episode of bradycardia but it was resolved. TSH level today is very low will cut down on Synthroid dose. January 21: Today's labs are reviewed. Stable renal parameters. Continue per consultants. January 20: Labs reviewed. Renal parameters stable. January 19: Labs reviewed. Stable from renal standpoint. January 18: No labs done today. Continue per consultants. Medications reviewed. January 17: Late note entry due to system problem at the [facility] [place] today.Chemistry panel reviewed. Stable from renal standpoint of view. Continue per current management. January 16: No can panel today. Check lab tomorrow. Remains stable from renal standpoint of view. January 15: Lab reviewed. Renal parameters stable. January 14: Lab reviewed. Renal parameters stable. January 13: Labs reviewed. Stable from renal standpoint of view. January 12: Labs reviewed. Stable from renal standpoint of view January 11: No labs drawn today stable from renal standpoint of view January 10: Labs reviewed. Potassium supplement given. Continue per consultants. January 09: Lab reviewed. Potassium supplement given. IV fluid discontinued. January 08: Lab reviewed. Renal parameters stable. Continue per consultants. January 07: Lab reviewed. Renal parameters stable. Continue per consultants. January 06: Lab reviewed. Stable from renal standpoint of view. January 05: Labs reviewed. Stable from renal standpoint of view. Continue per consultants. January 04: No labs drawn today. Will check labs tomorrow. Continue per consultants. January 03: Lab reviewed. Renal parameters stable. IV fluid discontinued. High LFTs declining. Continue same. January 02: Lab reviewed. Renal parameters stable. Continue per PMD and consultants. LFTs remain elevated. Continue to monitor. Continue slow hydration Discontinue blood pressure medications as her blood pressure is low Discontinue diuretics Monitor renal parameters Transfusion as needed GI evaluation Correct electrolyte abnormalities Check B12 level, folate, and thyroid function tests: Results noted Subjective ROS Limited/Unobtainable: Yes Objective Objective Last 24 Hour Vital Signs Date Time Temp Pulse Resp B/P (MAP) Pulse Ox O2 Delivery O2 Flow Rate FiO2 01/29/20 12:00 95 01/29/20 12:00 30 01/29/20 11:15 90 20 30 01/29/20 09:30 105/69 01/29/20 08:50 99 01/29/20 08:00 30 01/29/20 08:00 98 01/29/20 07:00 92 22 102/72 (82) 100 01/29/20 06:48 92 20 30 01/29/20 06:00 93 23 101/70 (80) 100 01/29/20 05:00 98 22 99/66 (77) 100 01/29/20 04:00 30 01/29/20 04:00 Mechanical Ventilator 01/29/20 04:00 94 01/29/20 04:00 99.4 101 24 100/63 (75) 100 01/29/20 03:00 98 25 101/76 (84) 100 01/29/20 02:44 96 25 30 01/29/20 02:00 99 26 101/65 (77) 100 01/29/20 01:00 97 26 101/66 (78) 100 01/29/20 00:00 30 01/29/20 00:00 97 01/29/20 00:00 Mechanical Ventilator 01/29/20 00:00 98.6 97 25 95/63 (74) 100 01/28/20 23:06 98 23 30 01/28/20 23:00 99 27 96/64 (75) 100 01/28/20 22:00 99 25 94/70 (78) 100 01/28/20 21:00 97 25 99/65 (76) 100 01/28/20 20:00 93 01/28/20 20:00 Mechanical Ventilator 01/28/20 20:00 98.8 99 26 94/70 (78) 100 01/28/20 20:00 30 01/28/20 19:20 91 22 30 01/28/20 19:00 91 20 100/64 (76) 100 01/28/20 18:00 90 20 95/60 (72) 100 01/28/20 17:00 84 20 97/65 (76) 100 01/28/20 16:00 86 01/28/20 16:00 30 01/28/20 16:00 Mechanical Ventilator 01/28/20 16:00 98.9 87 20 94/72 (79) 100 01/28/20 15:20 93 19 30 01/28/20 15:00 97 20 99/75 (83) 100 01/28/20 14:00 100 20 96/61 (73) 100 01/28/20 13:00 114 20 96/79 (85) 100 Intake and Output 01/28/20 01/29/20 19:00 07:00 Intake Total 1355 ml Output Total 1300 ml 800 ml Balance -1300 ml 555 ml IV Total 1355 ml Output Urine Total 1000 ml Stool Total 300 ml 800 ml Laboratory Tests 01/28/20 18:15: White Blood Count 39.4*H, Red Blood Count 3.65L, Hemoglobin 11.1L, Hematocrit 35.5L, Mean Corpuscular Volume 97, Mean Corpuscular Hemoglobin 30.4, Mean Corpuscular Hemoglobin Concent 31.2L, Red Cell Distribution Width 16.7H, Platelet Count 287, Mean Platelet Volume 7.3, Neutrophils (%) (Auto) , Lymphocytes (%) (Auto) , Monocytes (%) (Auto) , Eosinophils (%) (Auto) , Basophils (%) (Auto) , Differential Total Cells Counted 100, Neutrophils % ( Manual) 88H, Lymphocytes % (Manual) 7L, Monocytes % (Manual) 4, Eosinophils % ( Manual) 0, Basophils % (Manual) 1, Band Neutrophils 0, Platelet Estimate Adequate, Platelet Morphology Normal, Hypochromasia 1+, Anisocytosis 1+ 01/29/20 06:32: Ferritin 354 01/29/20 06:37: White Blood Count 33.3*H, Red Blood Count 3.37L, Hemoglobin 9.8L, Hematocrit 31.8L, Mean Corpuscular Volume 95, Mean Corpuscular Hemoglobin 29.2, Mean Corpuscular Hemoglobin Concent 30.8L, Red Cell Distribution Width 15.2H, Platelet Count 242, Mean Platelet Volume 7.1, Neutrophils (%) (Auto) , Lymphocytes (%) (Auto) , Monocytes (%) (Auto) , Eosinophils (%) (Auto) , Basophils (%) (Auto) , Differential Total Cells Counted 100, Neutrophils % ( Manual) 87H, Lymphocytes % (Manual) 9L, Monocytes % (Manual) 4, Eosinophils % ( Manual) 0, Basophils % (Manual) 0, Band Neutrophils 0, Platelet Estimate Adequate, Platelet Morphology Normal, Hypochromasia 2+, Anisocytosis 1+, Sodium Level 149H, Potassium Level 2.9L, Chloride Level 115H, Carbon Dioxide Level 25, Anion Gap 9, Blood Urea Nitrogen 32H, Creatinine 0.6, Estimat Glomerular Filtration Rate > 60, Glucose Level 122H, Lactic Acid Level 1.60, Uric Acid 4.5 , Calcium Level 8.1#L, Phosphorus Level 2.0L, Magnesium Level 1.7L, Total Bilirubin 0.4, Gamma Glutamyl Transpeptidase 62, Aspartate Amino Transf (AST/ SGOT) 18, Alanine Aminotransferase (ALT/SGPT) 24, Alkaline Phosphatase 54, C- Reactive Protein, Quantitative 11.9H, Pro-B-Type Natriuretic Peptide 306H, Total Protein 6.0L, Albumin 2.4L, Globulin 3.6, Albumin/Globulin Ratio 0.7L Height (Feet): 5 Height (Inches): 1.00 Weight (Pounds): 71 General Appearance: no apparent distress EENT: other - Vented Cardiovascular: tachycardia Respiratory/Chest: decreased breath sounds Abdomen: distended Objective No change Chivo Holloway MD Jan 29, 2020 12:32
--- NOTE | 2020-01-29 13:25 | Infectious Diseases Prog Note ---
Assessment/Plan 39yo F with: Severe Sepsis Fever, recurrent Leukocytosis; recurrent; increased- now improving -01/27 u/a no pyuria, nit +, leuk +3; ucx p CXR: no acute disease -01/26 Bcx NTD -01/13 CXR: no acute disease -01/12 u/a wbc tnct, nit neg, latrell +3; ucx >100k C. tropicalis Bcx NTD Severe Cdiff colitis -Cdif toxin + 01/27 KUB:Severely dilated small bowel loop in the central abdomen could reflect obstruction. Diffusely fluid distended colon. -01/13 KUB: no acute findings Recurrent GIB 01/06 u/aneg 12/30 BCx 1/2 +CONS, likely contaminant 12/30 UA neg, COVID rapid Ag neg 12/30 CXR 1. Density overlying the bilateral lung apices. May represent pleural thickening, multifocal airspace opacities, versus summation artifact. 01/01 BCx Neg 01/02 BCx Neg Acute blood loss anemia Possible pna on CXR, sp rx Seizure episode -01/10 CT head: Third and lateral ventriculomegaly. Associated enlargement of the extra axial CSF spaces indicates that this is probably due to central volume loss, but the possibility of hydrocephalus should also be considered. At the degree of volume loss is considerably out of proportion to patient's age. Periventricular deep white matter low-attenuation. Probably on the basis of microvascular ischemic change but given patient's age the possibility of demyelinating disease should be considered as well. Negative for acute intracranial bleed or mass effect Possible Scabies SP tx w/ Permethrin and Ivermectin 12/31 R/o DVT: None on US 12/30 MRSA nares neg Recurrent GIBs, FOBT+ Hepatic encephalopathy, chronic S/p Trach/PEG Resides at [facility] VRE and CRE colonized Plan: PO Dificid #- as failing PO Vancomycin Noted Flagyl - Empiric IV Vancomycin and Cefepime #2 01/19/20 SP fluconazole #5 01/15 SP PO Vancomycin #8 01/08 SP Ceftriaxone #7 01/02 SP vanco #2, Zosyn #2 SP 2nd dose of ivermectin (01/08) Monitor CBC/CMP Monitor resp status Monitor temp and hemodynamics Cdiff contact isolation until diarrhea free for 48hrs f/u repaet cultures GI, GEn sx, pulm f/u D/w RN and Dr Woods, pulmonary team Thank you for this consult. [facility] will continue to follow. Subjective Allergies: Coded Allergies: CARBAMAZEPINE (Verified Allergy, Unknown, 12/31/19) LORAZEPAM (Verified Allergy, Unknown, 12/31/19) Transferred to ICU yesterday due to tahycardia, hypotension Tm 100.1 wbc up to 43, now down to 33 hgb dropped pt was noted to haVe bloody stool on rectal tube Objective Last 24 Hour Vital Signs Date Time Temp Pulse Resp B/P (MAP) Pulse Ox O2 Delivery O2 Flow Rate FiO2 01/29/20 12:00 95 01/29/20 12:00 100.1 95 19 96/78 (84) 100 01/29/20 12:00 30 01/29/20 11:15 90 20 30 01/29/20 11:00 90 18 108/82 (91) 100 01/29/20 10:00 94 18 103/69 (80) 100 01/29/20 09:30 105/69 01/29/20 09:00 94 19 100/69 (79) 100 01/29/20 08:50 99 01/29/20 08:00 99.6 92 20 102/72 (82) 100 01/29/20 08:00 30 01/29/20 08:00 98 01/29/20 07:00 92 22 102/72 (82) 100 01/29/20 06:48 92 20 30 01/29/20 06:00 93 23 101/70 (80) 100 01/29/20 05:00 98 22 99/66 (77) 100 01/29/20 04:00 30 01/29/20 04:00 Mechanical Ventilator 01/29/20 04:00 94 01/29/20 04:00 99.4 101 24 100/63 (75) 100 01/29/20 03:00 98 25 101/76 (84) 100 01/29/20 02:44 96 25 30 01/29/20 02:00 99 26 101/65 (77) 100 01/29/20 01:00 97 26 101/66 (78) 100 01/29/20 00:00 30 01/29/20 00:00 97 01/29/20 00:00 Mechanical Ventilator 01/29/20 00:00 98.6 97 25 95/63 (74) 100 01/28/20 23:06 98 23 30 01/28/20 23:00 99 27 96/64 (75) 100 01/28/20 22:00 99 25 94/70 (78) 100 01/28/20 21:00 97 25 99/65 (76) 100 01/28/20 20:00 93 01/28/20 20:00 Mechanical Ventilator 01/28/20 20:00 98.8 99 26 94/70 (78) 100 01/28/20 20:00 30 01/28/20 19:20 91 22 30 01/28/20 19:00 91 20 100/64 (76) 100 01/28/20 18:00 90 20 95/60 (72) 100 01/28/20 17:00 84 20 97/65 (76) 100 01/28/20 16:00 86 01/28/20 16:00 30 01/28/20 16:00 Mechanical Ventilator 01/28/20 16:00 98.9 87 20 94/72 (79) 100 01/28/20 15:20 93 19 30 01/28/20 15:00 97 20 99/75 (83) 100 01/28/20 14:00 100 20 96/61 (73) 100 Height (Feet): 5 Height (Inches): 1.00 Weight (Pounds): 71 General Appearance: no apparent distress Neck: supple Cardiovascular: normal rate Respiratory/Chest: decreased breath sounds Abdomen: hypoactive bowel sounds Extremities: non-tender Microbiology Date/Time Source Procedure Growth Status 01/27/20 19:24 Blood Blood Culture - Preliminary NO GROWTH AFTER 24 HOURS Resulted 01/27/20 19:14 Blood Blood Culture - Preliminary NO GROWTH AFTER 24 HOURS Resulted 01/28/20 00:00 Urine,Clean Catch Urine Culture - Preliminary Resulted Laboratory Tests Test 01/28/20 18:15 01/29/20 06:32 01/29/20 06:37 White Blood Count 39.4 K/UL (4.8-10.8) *H 33.3 K/UL (4.8-10.8) *H Red Blood Count 3.65 M/UL (4.20-5.40) L 3.37 M/UL (4.20-5.40) L Hemoglobin 11.1 G/DL (12.0-16.0) L 9.8 G/DL (12.0-16.0) L Hematocrit 35.5 % (37.0-47.0) L 31.8 % (37.0-47.0) L Mean Corpuscular Volume 97 FL (80-99) 95 FL (80-99) Mean Corpuscular Hemoglobin 30.4 PG (27.0-31.0) 29.2 PG (27.0-31.0) Mean Corpuscular Hemoglobin Concent 31.2 G/DL (32.0-36.0) L 30.8 G/DL (32.0-36.0) L Red Cell Distribution Width 16.7 % (11.6-14.8) H 15.2 % (11.6-14.8) H Platelet Count 287 K/UL (150-450) 242 K/UL (150-450) Mean Platelet Volume 7.3 FL (6.5-10.1) 7.1 FL (6.5-10.1) Neutrophils (%) (Auto) % (45.0-75.0) % (45.0-75.0) Lymphocytes (%) (Auto) % (20.0-45.0) % (20.0-45.0) Monocytes (%) (Auto) % (1.0-10.0) % (1.0-10.0) Eosinophils (%) (Auto) % (0.0-3.0) % (0.0-3.0) Basophils (%) (Auto) % (0.0-2.0) % (0.0-2.0) Differential Total Cells Counted 100 100 Neutrophils % (Manual) 88 % (45-75) H 87 % (45-75) H Lymphocytes % (Manual) 7 % (20-45) L 9 % (20-45) L Monocytes % (Manual) 4 % (1-10) 4 % (1-10) Eosinophils % (Manual) 0 % (0-3) 0 % (0-3) Basophils % (Manual) 1 % (0-2) 0 % (0-2) Band Neutrophils 0 % (0-8) 0 % (0-8) Platelet Estimate Adequate Adequate Platelet Morphology Normal Normal Hypochromasia 1+ 2+ Anisocytosis 1+ 1+ Ferritin 354 NG/ML (8-388) Sodium Level 149 MMOL/L (136-145) H Potassium Level 2.9 MMOL/L (3.5-5.1) L Chloride Level 115 MMOL/L (98-107) H Carbon Dioxide Level 25 MMOL/L (21-32) Anion Gap 9 mmol/L (5-15) Blood Urea Nitrogen 32 mg/dL (7-18) H Creatinine 0.6 MG/DL (0.55-1.30) Estimat Glomerular Filtration Rate > 60 mL/min (>60) Glucose Level 122 MG/DL (74-106) H Lactic Acid Level 1.60 mmol/L (0.4-2.0) Uric Acid 4.5 MG/DL (2.6-7.2) Calcium Level 8.1 MG/DL (8.5-10.1) #L Phosphorus Level 2.0 MG/DL (2.5-4.9) L Magnesium Level 1.7 MG/DL (1.8-2.4) L Total Bilirubin 0.4 MG/DL (0.2-1.0) Gamma Glutamyl Transpeptidase 62 U/L (5-85) Aspartate Amino Transf (AST/SGOT) 18 U/L (15-37) Alanine Aminotransferase (ALT/SGPT) 24 U/L (12-78) Alkaline Phosphatase 54 U/L (46-116) C-Reactive Protein, Quantitative 11.9 mg/dL (0.00-0.90) H Pro-B-Type Natriuretic Peptide 306 pg/mL (0-125) H Total Protein 6.0 G/DL (6.4-8.2) L Albumin 2.4 G/DL (3.4-5.0) L Globulin 3.6 g/dL Albumin/Globulin Ratio 0.7 (1.0-2.7) L Current Medications Medications (Trade) Dose Ordered Sig/Villa Route PRN Reason Start Time Stop Time Status Last Admin Dose Admin Acetaminophen (Tylenol) 650 mg Q6H PRN GT Temp >100.5 01/28/20 09:30 01/31/20 09:29 01/28/20 11:42 Ascorbic Acid (Vitamin C) 500 mg DAILY GT 01/28/20 09:30 02/27/20 09:29 01/29/20 09:27 Barium Sulfate (Readi-Cat 2) 450 ml NOW PRN ORAL Radiology Procedure 01/28/20 10:15 01/30/20 10:06 Barium Sulfate (Readi-Cat 2) 450 ml NOW PRN ORAL Radiology Procedure 01/28/20 15:00 01/30/20 14:51 Cefepime HCl 1 gm/ Dextrose 55 ml @ 110 mls/hr EVERY 12 HOURS IVPB 01/28/20 10:15 02/04/20 10:14 01/29/20 09:29 Dextrose/Sodium Chloride 1,000 ml @ 100 mls/hr Q10H IV 01/29/20 13:00 02/27/20 12:59 01/29/20 03:16 Famotidine (Pepcid I.v.) 20 mg Q12HR IVP 01/29/20 21:00 02/28/20 20:59 Fidaxomicin (Dificid) 200 mg EVERY 12 HOURS ORAL 01/28/20 21:00 02/04/20 20:59 01/29/20 09:57 Gabapentin (Neurontin) 900 mg TID GT 01/28/20 09:30 02/19/20 09:29 01/29/20 12:56 Haloperidol Lactate (Haldol) 5 mg Q6H PRN IM Agitation 01/28/20 09:30 02/15/20 09:29 Iohexol (OMNIPAQUE-300 100ml) 100 ml NOW PRN INJ Radiology Procedure 01/28/20 10:15 01/30/20 10:06 Levetiracetam (Keppra) 1,500 mg Q12HR GT 01/28/20 09:30 02/07/20 09:29 01/29/20 09:42 Levothyroxine Sodium (Synthroid) 50 mcg ACBREAKFAST GT 01/29/20 06:30 02/10/20 06:29 01/29/20 06:28 Metronidazole 100 ml @ 100 mls/hr Q8HR IVPB 01/28/20 22:00 02/04/20 21:59 01/29/20 06:27 Midodrine (Pro-Amatine) 10 mg TID GT 01/28/20 18:00 04/21/20 09:29 01/29/20 12:56 Multivitamins (Multivitamins W/ Minerals 15ml Liquid) 15 ml DAILY GT 01/28/20 09:30 02/27/20 09:29 01/29/20 09:54 Norepinephrine Bitartrate 250 ml @ 0 mls/hr Q24H IV 01/28/20 09:30 04/27/20 09:29 Ondansetron HCl (Zofran) 4 mg Q6H PRN GT Nausea & Vomiting 01/28/20 09:30 01/30/20 09:29 Oxcarbazepine (TrileptaL) 300 mg BEDTIME GT 01/28/20 21:00 02/07/20 20:59 01/28/20 21:03 Pantoprazole 80 mg/Sodium Chloride 250 ml @ 25 mls/hr Q10H IV 01/28/20 18:30 02/27/20 18:29 01/29/20 04:16 Potassium Phosphate 250 ml @ 62.5 mls/hr Q4H IVPB 01/29/20 09:00 01/29/20 16:59 01/29/20 09:33 Thiamine HCl (Vitamin B1) 100 mg DAILY GT 01/28/20 09:30 02/27/20 09:29 01/29/20 09:28 Vancomycin HCl (Vanco pharmacy to dose) 1 ea DAILY PRN MISC Per rx protocol 01/28/20 10:45 02/27/20 10:44 Vancomycin HCl 500 mg/Dextrose 110 ml @ 110 mls/hr Q24H IVPB 01/29/20 12:00 02/03/20 11:59 01/29/20 11:17 Char Morel M.D. Jan 29, 2020 13:25
--- NOTE | 2020-01-29 16:18 | Diagnostic Imaging Report ---
Indication: Shortness of breath Technique: XRAY Chest 1v Comparison: 01/28/2020 Findings: Heart size and mediastinal contours within normal limits and stable compared to the prior exam. Tracheostomy tube again seen. There is subtle reticular nodular opacities in the left apex. No dense consolidation. No pleural effusion or pneumothorax. No acute osseous abnormality. Surgical clips noted in the right upper quadrant. IMPRESSION: Subtle reticular nodular opacities in the left apex which may be related to scarring versus acute small airway disease/bronchitis. Note that the left apex was obscured on the prior exam due to patient rotation.
--- NOTE | 2020-01-29 17:07 | Surgery Progress Note ---
Surgery Progress Note Subjective Additional Comments leukocytosis anemia pending CT results blood in rectal tube Objective Last 24 Hour Vital Signs Date Time Temp Pulse Resp B/P (MAP) Pulse Ox O2 Delivery O2 Flow Rate FiO2 01/29/20 16:00 99.8 92 20 102/72 (82) 100 01/29/20 16:00 30 01/29/20 16:00 95 01/29/20 15:15 93 29 30 01/29/20 15:00 90 18 108/82 (91) 100 01/29/20 14:00 90 18 108/82 (91) 100 01/29/20 13:00 90 18 108/82 (91) 100 01/29/20 12:00 95 01/29/20 12:00 100.1 95 19 96/78 (84) 100 01/29/20 12:00 30 01/29/20 11:15 90 20 30 01/29/20 11:00 90 18 108/82 (91) 100 01/29/20 10:00 94 18 103/69 (80) 100 01/29/20 09:30 105/69 01/29/20 09:00 94 19 100/69 (79) 100 01/29/20 08:50 99 01/29/20 08:00 99.6 92 20 102/72 (82) 100 01/29/20 08:00 30 01/29/20 08:00 98 01/29/20 07:00 92 22 102/72 (82) 100 01/29/20 06:48 92 20 30 01/29/20 06:00 93 23 101/70 (80) 100 01/29/20 05:00 98 22 99/66 (77) 100 01/29/20 04:00 30 01/29/20 04:00 Mechanical Ventilator 01/29/20 04:00 94 01/29/20 04:00 99.4 101 24 100/63 (75) 100 01/29/20 03:00 98 25 101/76 (84) 100 01/29/20 02:44 96 25 30 01/29/20 02:00 99 26 101/65 (77) 100 01/29/20 01:00 97 26 101/66 (78) 100 01/29/20 00:00 30 01/29/20 00:00 97 01/29/20 00:00 Mechanical Ventilator 01/29/20 00:00 98.6 97 25 95/63 (74) 100 01/28/20 23:06 98 23 30 01/28/20 23:00 99 27 96/64 (75) 100 01/28/20 22:00 99 25 94/70 (78) 100 01/28/20 21:00 97 25 99/65 (76) 100 01/28/20 20:00 93 01/28/20 20:00 Mechanical Ventilator 01/28/20 20:00 98.8 99 26 94/70 (78) 100 01/28/20 20:00 30 01/28/20 19:20 91 22 30 01/28/20 19:00 91 20 100/64 (76) 100 01/28/20 18:00 90 20 95/60 (72) 100 I&O Intake and Output 01/28/20 01/29/20 19:00 07:00 Intake Total 1355 ml Output Total 1300 ml 800 ml Balance -1300 ml 555 ml IV Total 1355 ml Output Urine Total 1000 ml Stool Total 300 ml 800 ml Cardiovascular: RSR Respiratory: decreased breath sounds Abdomen: soft, non-tender, present bowel sounds Extremities: no tenderness, no cyanosis Laboratory Tests Test 01/28/20 18:15 01/29/20 06:32 01/29/20 06:37 White Blood Count 39.4 K/UL (4.8-10.8) *H 33.3 K/UL (4.8-10.8) *H Red Blood Count 3.65 M/UL (4.20-5.40) L 3.37 M/UL (4.20-5.40) L Hemoglobin 11.1 G/DL (12.0-16.0) L 9.8 G/DL (12.0-16.0) L Hematocrit 35.5 % (37.0-47.0) L 31.8 % (37.0-47.0) L Mean Corpuscular Volume 97 FL (80-99) 95 FL (80-99) Mean Corpuscular Hemoglobin 30.4 PG (27.0-31.0) 29.2 PG (27.0-31.0) Mean Corpuscular Hemoglobin Concent 31.2 G/DL (32.0-36.0) L 30.8 G/DL (32.0-36.0) L Red Cell Distribution Width 16.7 % (11.6-14.8) H 15.2 % (11.6-14.8) H Platelet Count 287 K/UL (150-450) 242 K/UL (150-450) Mean Platelet Volume 7.3 FL (6.5-10.1) 7.1 FL (6.5-10.1) Neutrophils (%) (Auto) % (45.0-75.0) % (45.0-75.0) Lymphocytes (%) (Auto) % (20.0-45.0) % (20.0-45.0) Monocytes (%) (Auto) % (1.0-10.0) % (1.0-10.0) Eosinophils (%) (Auto) % (0.0-3.0) % (0.0-3.0) Basophils (%) (Auto) % (0.0-2.0) % (0.0-2.0) Differential Total Cells Counted 100 100 Neutrophils % (Manual) 88 % (45-75) H 87 % (45-75) H Lymphocytes % (Manual) 7 % (20-45) L 9 % (20-45) L Monocytes % (Manual) 4 % (1-10) 4 % (1-10) Eosinophils % (Manual) 0 % (0-3) 0 % (0-3) Basophils % (Manual) 1 % (0-2) 0 % (0-2) Band Neutrophils 0 % (0-8) 0 % (0-8) Platelet Estimate Adequate Adequate Platelet Morphology Normal Normal Hypochromasia 1+ 2+ Anisocytosis 1+ 1+ Ferritin 354 NG/ML (8-388) Sodium Level 149 MMOL/L (136-145) H Potassium Level 2.9 MMOL/L (3.5-5.1) L Chloride Level 115 MMOL/L (98-107) H Carbon Dioxide Level 25 MMOL/L (21-32) Anion Gap 9 mmol/L (5-15) Blood Urea Nitrogen 32 mg/dL (7-18) H Creatinine 0.6 MG/DL (0.55-1.30) Estimat Glomerular Filtration Rate > 60 mL/min (>60) Glucose Level 122 MG/DL (74-106) H Lactic Acid Level 1.60 mmol/L (0.4-2.0) Uric Acid 4.5 MG/DL (2.6-7.2) Calcium Level 8.1 MG/DL (8.5-10.1) #L Phosphorus Level 2.0 MG/DL (2.5-4.9) L Magnesium Level 1.7 MG/DL (1.8-2.4) L Total Bilirubin 0.4 MG/DL (0.2-1.0) Gamma Glutamyl Transpeptidase 62 U/L (5-85) Aspartate Amino Transf (AST/SGOT) 18 U/L (15-37) Alanine Aminotransferase (ALT/SGPT) 24 U/L (12-78) Alkaline Phosphatase 54 U/L (46-116) C-Reactive Protein, Quantitative 11.9 mg/dL (0.00-0.90) H Pro-B-Type Natriuretic Peptide 306 pg/mL (0-125) H Total Protein 6.0 G/DL (6.4-8.2) L Albumin 2.4 G/DL (3.4-5.0) L Globulin 3.6 g/dL Albumin/Globulin Ratio 0.7 (1.0-2.7) L Plan Problems: (1) Pneumonia (2) Sepsis Assessment & Plan: leukocytosis anemia lactic acidosis agree with GI recommend EGD planned for 12/31 hold feeding for now trend h/h monitor for bleeding no acute hemorrhage will be available in event needs exploration for hemostasis prbc as per heme thank you will follow with recs cont abx worsening wbc wbc trending down comfortable appearing no n/v hypotensive in ICU again worse pending CT results PICC ordered Pt presented on admission in emaciated state. Pt has tracheostomy and GT. NO skin concerns noted to skin under collar of trach. NO erythema or evidence of skin erosion at GT site. Pt noted to have scaly pimple-like rash with webbing noted to R and L axillae, undersides of both breasts, Bilat groin and lower back. Tracking and webbing noted to hands and feet. Pt restless and scratching at skin. Non-Blanching erythema without induration or fluctuance noted to R and L hips and trochanteric areas.Non-blanching erythema noted along spine. Non-Blanching erythema without induration noted to Sacrum. Non-Blanching erythema noted to R and L Malleoli and both heels. Tx.Plan: Please apply Cavilon Skin Barrier to each bony Prominences at risks for Skin Breakdown. Cover each area with Optifoam drsgs. Change every 7 days and prn. Apply Moisture Barrier Paste to Sacrum. Cover with Optifoam drsg. Change every 3 days and prn. Reposition at least every 2hours or as tolerated. Off-load heels with pillow. APM/EMELI Mattress overlay. improving cont current care plan There is marked enlargement of the third and lateral ventricles and extra axial CSF spaces, in particular the former. There is considerable periventricular deep white matter low-attenuation. Otherwise normal mobley-white differentiation. No acute hemorrhage or edema. No mass effect nor midline shift. Visualized orbits and sinuses are unremarkable. The calvarium is intact Impression: Third and lateral ventriculomegaly. Associated enlargement of the extra axial CSF spaces indicates that this is probably due to central volume loss, but the possibility of hydrocephalus should also be considered. At the degree of volume loss is considerably out of proportion to patient's age. Correlate with clinical history Periventricular deep white matter low-attenuation. Probably on the basis of microvascular ischemic change but given patient's age the possibility of demyelinating disease should be considered as well. Negative for acute intracranial bleed or mass effect (3) GI bleed (4) G tube feedings Assessment & Plan: DAILY ESTIMATED NEEDS: Needs based on Underweight, critical care 37.3kg 30-40 kcals/kg 9677-5854 total kcals 1.25-2 g protein/kg 47-75 g total protein 25-35 mL/kg 933-1306 total fluid mLs NUTRITION DIAGNOSIS: Increased kcal and pro needs r/t underweight status as evidenced by BMI 14.1, pt is 68% of ideal body weight w/ generalized severe wasting, trach and peg dep. CURRENT TF:Vital AF 1.2 @55 x20 hrs ENTERAL NUTRITION RECOMMENDATIONS: Vital AF 1.2 @ 55ml/hr x20 hrs to provide 1100ml 1320kcal 83g prot, 892ml free water - Rec to continue elemental TF formula while stool C-diff positive, +LBM - HOLD 1HR BEFORE AND AFTER SYNTHROID MEDS - Flush per . HOB over 30 degrees ADDITIONAL RECOMMENDATIONS: 1) Per SNF: 5'4" and 81# Maintain calibrated bed scale wts w/ added P200 mattress 2) Lytes daily madhav w/ loose stools, replete as needed 3) Skin integrity: Continue BRIAN VIA GT BID + Vit C 4) Accuchecks for Hypoglycemia 5) Add probiotics for stool C-diff+ . George Woods Jan 29, 2020 17:07
--- NOTE | 2020-01-29 17:58 | Diagnostic Imaging Report ---
EXAM: CT Abdomen and Pelvis Without Intravenous Contrast CLINICAL HISTORY: ABN LABS TECHNIQUE: Axial computed tomography images of the abdomen and pelvis without intravenous contrast. CTDI is 2.8 mGy and DLP is 208.3 mGy-cm. One or more of the following dose reduction techniques were used: automated exposure control, adjustment of the mA and/or kV according to patient size, use of iterative reconstruction technique. Coronal and sagittal reformatted images were created and reviewed. COMPARISON: 01/28/2020. Radiographs FINDINGS: Limitations: Study substantially limited due to lack of IV contrast. Lung bases: Unremarkable. No mass. No consolidation. ABDOMEN: Liver: Unremarkable. Gallbladder and bile ducts: Cholecystectomy. No ductal dilation. Pancreas: Unremarkable. No ductal dilation. Spleen: Unremarkable. No splenomegaly. Adrenals: Unremarkable. No mass. Kidneys and ureters: Unremarkable. No obstructing stones. No hydronephrosis. Stomach and bowel: Operative bowel findings. Diffuse small bowel wall thickening with areas of distention and fluid-filled colonic loops. No clear focal transition point to suggest small bowel obstruction. PELVIS: Appendix: Appendix not identified. Bladder: Urinary bladder wall thickening could be incidental, due to high outlet pressures, or could represent cystitis. No stones. Reproductive: Unremarkable as visualized. ABDOMEN and PELVIS: Intraperitoneal space: Large low-attenuation pelvic fluid of uncertain significance, potentially reactive. No free air. Bones/joints: No acute fracture. No dislocation. Soft tissues: Bilateral buttock injection granulomas. Vasculature: Unremarkable. No abdominal aortic aneurysm. Lymph nodes: Unremarkable. No enlarged lymph nodes. Tubes, lines and devices: Percutaneous gastrostomy tube adequately positioned in the stomach. Rectal tube. Other findings: No perforation seen. IMPRESSION: 1. Study substantially limited due to lack of IV contrast. 2. Findings most compatible with ileus and probable infectious or inflammatory enteritis or enterocolitis. 3. Large low-attenuation pelvic fluid of uncertain significance, potentially reactive. 4. Appendix not identified. 5. Percutaneous gastrostomy tube adequately positioned in the stomach. Rectal tube. 6. Urinary bladder wall thickening could be incidental, due to high outlet pressures, or could represent cystitis. 7. Cholecystectomy. EXAM: CT Chest Without Intravenous Contrast CLINICAL HISTORY: ABN LABS TECHNIQUE: Axial computed tomography images of the chest without intravenous contrast. CTDI is 2.8 mGy and DLP is 208.3 mGy-cm. One or more of the following dose reduction techniques were used: automated exposure control, adjustment of the mA and/or kV according to patient size, use of iterative reconstruction technique. COMPARISON: 01/28/2020. Radiographs FINDINGS: Lungs: Tree-in-bud nodular opacities in the medial left base and lingula with left bronchial bubbly material suggest infectious or inflammatory bronchiolitis, likely due to aspiration. Small amount of similar foci seen in the right posterior lower lobe. Mild bronchiectasis and reticulation in the lingula, medial left base, and superior left upper lobe could also be due to chronic infection. Pleural space: Unremarkable. No pneumothorax. No significant effusion. Heart: Unremarkable. No cardiomegaly. No significant pericardial effusion. Mediastinum: Small amount of fluid layering in the proximal trachea. Bubbly intrabronchial contents in the left mainstem bronchus, left upper lobe bronchi, and left lingular bronchus. Small hiatal hernia with ingested distal esophageal contents could be seen with reflux or dysmotility. Bones/joints: Unremarkable. No acute fracture. No dislocation. Soft tissues: Unremarkable. Vasculature: Unremarkable. No thoracic aortic aneurysm. Lymph nodes: Unremarkable. No enlarged lymph nodes. Tubes, lines and devices: Tracheostomy. IMPRESSION: 1. Tracheostomy. 2. Tree-in-bud nodular opacities in the medial left base and lingula with left bronchial bubbly material suggest infectious or inflammatory bronchiolitis, likely due to aspiration. Small amount of similar foci seen in the right posterior lower lobe. 3. Mild bronchiectasis and reticulation in the lingula, medial left base, and superior left upper lobe could also be due to chronic infection. 4. Small hiatal hernia with ingested distal esophageal contents could be seen with reflux or dysmotility.
[2020-01-29] MEDS ORDERED: NS 275ml ONE (18:41)
--- NOTE | 2020-01-29 21:27 | General Progress Note ---
Assessment/Plan Status: stable, other - Patient is now hypotensive before over 46 she will receive 500 cc of normal saline bolus to be repeated blood pressure remained below 90 further management will be decided following the boluses treatment repeat laboratory tests will be done in a.m. GLENNY BISHOP MD Assessment/Plan: Glenny Harrison Subjective Constitutional: Reports: no symptoms HEENT: Reports: no symptoms Cardiovascular: Reports: no symptoms Respiratory: Reports: no symptoms Gastrointestinal/Abdominal: Reports: no symptoms Genitourinary: Reports: no symptoms Neurologic/Psychiatric: Reports: weakness Allergies: Coded Allergies: CARBAMAZEPINE (Verified Allergy, Unknown, 12/31/19) LORAZEPAM (Verified Allergy, Unknown, 12/31/19) Objective Last 24 Hour Vital Signs Date Time Temp Pulse Resp B/P (MAP) Pulse Ox O2 Delivery O2 Flow Rate FiO2 01/29/20 20:21 85 29 30 01/29/20 20:00 30 01/29/20 19:00 99.8 92 20 87/51 (63) 100 01/29/20 18:00 94 18 92/73 (79) 100 01/29/20 17:00 91 18 95/65 (75) 100 01/29/20 16:00 99.8 92 20 102/72 (82) 100 01/29/20 16:00 30 01/29/20 16:00 95 01/29/20 15:15 93 29 30 01/29/20 15:00 90 18 108/82 (91) 100 01/29/20 14:00 90 18 108/82 (91) 100 01/29/20 13:00 90 18 108/82 (91) 100 01/29/20 12:00 95 01/29/20 12:00 100.1 95 19 96/78 (84) 100 01/29/20 12:00 30 01/29/20 11:15 90 20 30 01/29/20 11:00 90 18 108/82 (91) 100 01/29/20 10:00 94 18 103/69 (80) 100 01/29/20 09:30 105/69 01/29/20 09:00 94 19 100/69 (79) 100 01/29/20 08:50 99 01/29/20 08:00 99.6 92 20 102/72 (82) 100 01/29/20 08:00 30 01/29/20 08:00 98 01/29/20 07:00 92 22 102/72 (82) 100 01/29/20 06:48 92 20 30 01/29/20 06:00 93 23 101/70 (80) 100 01/29/20 05:00 98 22 99/66 (77) 100 01/29/20 04:00 30 01/29/20 04:00 Mechanical Ventilator 01/29/20 04:00 94 01/29/20 04:00 99.4 101 24 100/63 (75) 100 01/29/20 03:00 98 25 101/76 (84) 100 01/29/20 02:44 96 25 30 01/29/20 02:00 99 26 101/65 (77) 100 01/29/20 01:00 97 26 101/66 (78) 100 01/29/20 00:00 30 01/29/20 00:00 97 01/29/20 00:00 Mechanical Ventilator 01/29/20 00:00 98.6 97 25 95/63 (74) 100 01/28/20 23:06 98 23 30 01/28/20 23:00 99 27 96/64 (75) 100 01/28/20 22:00 99 25 94/70 (78) 100 Intake and Output 01/28/20 01/29/20 19:00 07:00 Intake Total 1355 ml Output Total 1300 ml 800 ml Balance -1300 ml 555 ml IV Total 1355 ml Output Urine Total 1000 ml Stool Total 300 ml 800 ml Laboratory Tests 01/29/20 06:32: Ferritin 354 01/29/20 06:37: White Blood Count 33.3*H, Red Blood Count 3.37L, Hemoglobin 9.8L, Hematocrit 31.8L, Mean Corpuscular Volume 95, Mean Corpuscular Hemoglobin 29.2, Mean Corpuscular Hemoglobin Concent 30.8L, Red Cell Distribution Width 15.2H, Platelet Count 242, Mean Platelet Volume 7.1, Neutrophils (%) (Auto) , Lymphocytes (%) (Auto) , Monocytes (%) (Auto) , Eosinophils (%) (Auto) , Basophils (%) (Auto) , Differential Total Cells Counted 100, Neutrophils % ( Manual) 87H, Lymphocytes % (Manual) 9L, Monocytes % (Manual) 4, Eosinophils % ( Manual) 0, Basophils % (Manual) 0, Band Neutrophils 0, Platelet Estimate Adequate, Platelet Morphology Normal, Hypochromasia 2+, Anisocytosis 1+, Sodium Level 149H, Potassium Level 2.9L, Chloride Level 115H, Carbon Dioxide Level 25, Anion Gap 9, Blood Urea Nitrogen 32H, Creatinine 0.6, Estimat Glomerular Filtration Rate > 60, Glucose Level 122H, Lactic Acid Level 1.60, Uric Acid 4.5 , Calcium Level 8.1#L, Phosphorus Level 2.0L, Magnesium Level 1.7L, Total Bilirubin 0.4, Gamma Glutamyl Transpeptidase 62, Aspartate Amino Transf (AST/ SGOT) 18, Alanine Aminotransferase (ALT/SGPT) 24, Alkaline Phosphatase 54, C- Reactive Protein, Quantitative 11.9H, Pro-B-Type Natriuretic Peptide 306H, Total Protein 6.0L, Albumin 2.4L, Globulin 3.6, Albumin/Globulin Ratio 0.7L Height (Feet): 5 Height (Inches): 1.00 Weight (Pounds): 71 General Appearance: WD/WN, no apparent distress, alert, cachetic EENT: normal ENT inspection Neck: supple Cardiovascular: normal rate, regular rhythm, no gallop/murmur, no JVD Respiratory/Chest: lungs clear, normal breath sounds, no respiratory distress Abdomen: normal bowel sounds, non tender, soft, no organomegaly, no mass Neurologic: alert, aphasia Glenny Bishop MD Jan 29, 2020 21:27
[2020-01-29] MEDS: OXcarbazepine 150mg tab GT SCH (21:42)
[2020-01-30] VITALS (14 sets, daily range): BP systolic 91–107; BP diastolic 45–66
[2020-01-30 05:40] LABS: HEMATOCRIT 25.6 % (37.0-47.0); HEMOGLOBIN 8.4 G/DL (12.0-16.0); MEAN CORPUSCULAR VOLUME 93 FL (80-99); PLATELET COUNT 235 K/UL (150-450); RED BLOOD COUNT 2.76 M/UL (4.20-5.40); RED CELL DISTRIBUTION WIDTH 15.2 % (11.6-14.8)
[2020-01-30 05:57] LABS: WHITE BLOOD COUNT 22.3 K/UL (4.8-10.8)
[2020-01-30 06:01] LABS: ALANINE AMINOTRANSFERASE 18 U/L (12-78); ALBUMIN 2.1 G/DL (3.4-5.0); ALBUMIN/GLOBULIN RATIO 0.6 (1.0-2.7); ALKALINE PHOSPHATASE 52 U/L (46-116); ANION GAP 8 mmol/L (5-15); ASPARTATE AMINO TRANSFERASE 14 U/L (15-37); BILIRUBIN,TOTAL 0.4 MG/DL (0.2-1.0); BLOOD UREA NITROGEN 15 mg/dL (7-18); CALCIUM 8.5 MG/DL (8.5-10.1); CARBON DIOXIDE 24 MMOL/L (21-32); CHLORIDE 112 MMOL/L (98-107); CREATININE 0.4 MG/DL (0.55-1.30); PHOSPHORUS 1.2 MG/DL (2.5-4.9); SODIUM 144 MMOL/L (136-145)
[2020-01-30 06:11] LABS: POTASSIUM 2.6 MMOL/L (3.5-5.1)
--- NOTE | 2020-01-30 07:37 | General Progress Note ---
Assessment/Plan Problem List: (1) G tube feedings ICD Codes: Z93.1 - Gastrostomy status SNOMED: 646000415, 321745473, 373916309 (2) GI bleed ICD Codes: K92.2 - Gastrointestinal hemorrhage, unspecified SNOMED: 61449393 (3) Sepsis ICD Codes: A41.9 - Sepsis, unspecified organism SNOMED: 46822754 (4) Pneumonia ICD Codes: J18.9 - Pneumonia, unspecified organism SNOMED: 063215931 Status: stable, other - Patient is now hypotensive before over 46 she will receive 500 cc of normal saline bolus to be repeated blood pressure remained below 90 further management will be decided following the boluses treatment repeat laboratory tests will be done in a.m. GEM MCKAY MD Assessment/Plan: s/p EGD few weeks ago gastric ulcer monitor H&H C. Diff positive po dificid still has diarrhea GIB famotidine IV add carafate and ppi plan EGD when WBC is better fu CT will fu Subjective ROS Limited/Unobtainable: No Allergies: Coded Allergies: CARBAMAZEPINE (Verified Allergy, Unknown, 12/31/19) LORAZEPAM (Verified Allergy, Unknown, 12/31/19) Objective Last 24 Hour Vital Signs Date Time Temp Pulse Resp B/P (MAP) Pulse Ox O2 Delivery O2 Flow Rate FiO2 01/30/20 07:10 76 20 30 01/30/20 04:00 98.5 90 23 93/61 (72) 96 01/30/20 04:00 Mechanical Ventilator 01/30/20 04:00 30 01/30/20 03:18 80 01/30/20 03:00 94 17 103/66 (78) 100 01/30/20 02:58 82 27 30 01/30/20 02:00 90 20 95/55 (68) 100 01/30/20 01:00 91 20 98/60 (73) 100 01/30/20 00:00 99.6 92 19 101/60 (74) 97 01/30/20 00:00 Mechanical Ventilator 01/29/20 23:20 93 01/29/20 23:00 92 20 98/60 (73) 100 01/29/20 23:00 80 31 30 01/29/20 22:00 94 18 103/77 (86) 100 01/29/20 21:00 94 18 101/73 (82) 100 01/29/20 20:21 85 29 30 01/29/20 20:00 Mechanical Ventilator 01/29/20 20:00 30 01/29/20 20:00 94 18 95/60 (72) 100 01/29/20 19:44 88 01/29/20 19:00 99.8 92 20 87/51 (63) 100 01/29/20 18:00 94 18 92/73 (79) 100 01/29/20 17:00 91 18 95/65 (75) 100 01/29/20 16:00 99.8 92 20 102/72 (82) 100 01/29/20 16:00 30 01/29/20 16:00 95 01/29/20 15:15 93 29 30 01/29/20 15:00 90 18 108/82 (91) 100 01/29/20 14:00 90 18 108/82 (91) 100 01/29/20 13:00 90 18 108/82 (91) 100 01/29/20 12:00 95 01/29/20 12:00 100.1 95 19 96/78 (84) 100 01/29/20 12:00 30 01/29/20 11:15 90 20 30 01/29/20 11:00 90 18 108/82 (91) 100 01/29/20 10:00 94 18 103/69 (80) 100 01/29/20 09:30 105/69 01/29/20 09:00 94 19 100/69 (79) 100 01/29/20 08:50 99 01/29/20 08:00 99.6 92 20 102/72 (82) 100 01/29/20 08:00 30 01/29/20 08:00 98 Intake and Output 01/29/20 01/30/20 19:00 07:00 Intake Total 2175.0 ml 1229.163 ml Output Total 800 ml 750 ml Balance 1375.0 ml 479.163 ml IV Total 2175.0 ml 1229.163 ml Stool Total 800 ml 550 ml Gastric Drainage Total 200 ml # Voids 4 4 Laboratory Tests 01/30/20 04:46: White Blood Count 22.3*H, Red Blood Count 2.76L, Hemoglobin 8.4L, Hematocrit 25.6L, Mean Corpuscular Volume 93, Mean Corpuscular Hemoglobin 30.5, Mean Corpuscular Hemoglobin Concent 32.9, Red Cell Distribution Width 15.2H, Platelet Count 235, Mean Platelet Volume 7.3, Neutrophils (%) (Auto) , Lymphocytes (%) (Auto) , Monocytes (%) (Auto) , Eosinophils (%) (Auto) , Basophils (%) (Auto) , Neutrophils % (Manual) [Pending], Lymphocytes % (Manual) [Pending], Platelet Estimate [Pending], Platelet Morphology [Pending], Sodium Level 144, Potassium Level 2.6*L, Chloride Level 112H, Carbon Dioxide Level 24, Anion Gap 8, Blood Urea Nitrogen 15, Creatinine 0.4L, Estimat Glomerular Filtration Rate > 60, Glucose Level 100, Calcium Level 8.5, Phosphorus Level 1.2L, Magnesium Level 1.6L, Total Bilirubin 0.4, Aspartate Amino Transf (AST/ SGOT) 14L, Alanine Aminotransferase (ALT/SGPT) 18, Alkaline Phosphatase 52, C- Reactive Protein, Quantitative 15.5H, Pro-B-Type Natriuretic Peptide 366H, Total Protein 5.5L, Albumin 2.1L, Globulin 3.4, Albumin/Globulin Ratio 0.6L Height (Feet): 5 Height (Inches): 1.00 Weight (Pounds): 71 General Appearance: no apparent distress EENT: normal ENT inspection Neck: supple Cardiovascular: normal rate Respiratory/Chest: decreased breath sounds Abdomen: hypoactive bowel sounds Extremities: non-tender Satish Carrillo MD Jan 30, 2020 07:37
--- NOTE | 2020-01-30 08:50 | Hematology/Onc Progress Note ---
Assessment/Plan Assessment/Plan # Anemia rule out underlying gi bleed --> Dr. Carrillo has been consulted-->endosco gastric ulceration --> trend hgb 7-->7.4-->7.9-->8.1->9.6-->8.5->9.1-->10-->11-->10.3-->10.4-->11-> 9.8 --> anemia panel ordered-->reviewed --> prn transfusion --> protonix started # Leukocytosis is likely related to pna on imaging --> abx has been started --> if wbc worsens, consider abx vanc/zosyn--> ceftriaxone-->vanc->fluc/flagyl/ vanc-->flagyl/fidoxomicin->vanc/cefepime/flagyl --> smear is noted --> wbc 25-->15-->14-->16->7.6-->12-->20->13->11->14-->33 --> pressors prn # Thrombocytopenia med related v labs error --> plt trend 167-->61-->227->373 --> meds have been reviewed --> no hep or lovenox # Sepsis --> on abx for pna --> pressors as needed # Pneumonia --> pulm, Dr. 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 business consultant care, will follow Subjective HEENT: Denies: no symptoms, eye pain, blurred vision, tearing, double vision, ear pain, ear discharge, nose pain, nose congestion, throat pain, throat swelling, mouth pain, mouth swelling, other Allergies: Coded Allergies: CARBAMAZEPINE (Verified Allergy, Unknown, 12/31/19) LORAZEPAM (Verified Allergy, Unknown, 12/31/19) All Systems: reviewed and negative except above Subjective 01/01 altered, trach, no bleedin wbc improved on abx, seen by gi 01/02 egd study noted, also with plts 61k, have vitaly Armendariz Rn, will recheck cbc 01/03 remains agitated, vitaly rn, no bleeding, cbc noted as well as id recs 01/04 on vent, with melena overnight, no bleeding, vitaly rn, labs reviewed 01/06 on vent, remains agitated, no bleeding, vitaly rn, smear is noted 01/07 on vent, restless, asymptomatic, noncooperative 01/[address] John obtained, reviewed, meds adjusted, eeg pending 01/09 labs noted, no bleeding, ativan has been discontinued, meds reviewed 01/10 trach to vent, agitated, with wrist restraints, no major changes, no bleeding 01/11 labs are reviewed, on trach to vent, no bleeding, agitated overnight, no complaints 01/13 labs noted, no bleeding, is on vent/trach, no bleeding, vitaly rn, labs are noted 01/14 labs are noted, no bleeding, remains on v/t, remains agitated, no bleeding 01/15 is c.diff positive, wbc higher at 21k, labs noted, on abx, reviewed gi, id recs 01/16 remains on vent, wbc is improved, in sr, as abx per id 01/17 recieved dopamine, tube feeds, on soft restraints, no bleeding, vitaly rn 01/18 labs are noted, no bleeding, vitaly rn, no major changes 01/20 on dopamine gtt, with restraints, no major changes, labs noted 01/21 labs reviewed, no bleeding, vitaly rn, no major changes 01/22 transferred to icu for higher loc, dopamine on hold as bp is good, have increased Synthroid 01/23 labs are pending, meds noted, no bleeding, dopamine gtt ongoing, cbc noted 01/24 still nv, no bleeding, labs reviewed, vitaly rn, with rectal tube in place, on dopamine gtt 01/25 is on bipap, nv, no bleeding, remains on low dose pressorm hgb 11 01/27 on dopamine, hr was elevated overnight, cards aware 01/28 on vent, with ivfs running, rectal tube with red blood noted, consider gi eval 01/29 on vent, labs reviewed, wbc 22, hgb 8.4, on abx currently, vanc/flagyl/ cefepime Objective Objective Current Medications Medications (Trade) Dose Ordered Sig/Villa Route PRN Reason Start Time Stop Time Status Last Admin Dose Admin Acetaminophen (Tylenol) 650 mg Q6H PRN GT Temp >100.5 01/28/20 09:30 01/31/20 09:29 01/28/20 11:42 Ascorbic Acid (Vitamin C) 500 mg DAILY GT 01/28/20 09:30 02/27/20 09:29 01/29/20 09:27 Barium Sulfate (Readi-Cat 2) 450 ml NOW PRN ORAL Radiology Procedure 01/28/20 10:15 01/30/20 10:06 Barium Sulfate (Readi-Cat 2) 450 ml NOW PRN ORAL Radiology Procedure 01/28/20 15:00 01/30/20 14:51 Cefepime HCl 1 gm/ Dextrose 55 ml @ 110 mls/hr EVERY 12 HOURS IVPB 01/28/20 10:15 02/04/20 10:14 01/29/20 21:41 Dextrose/Sodium Chloride 1,000 ml @ 100 mls/hr Q10H IV 01/29/20 13:00 02/27/20 12:59 01/29/20 23:07 Famotidine (Pepcid I.v.) 20 mg Q12HR IVP 01/29/20 21:00 02/28/20 20:59 01/29/20 21:41 Fidaxomicin (Dificid) 200 mg EVERY 12 HOURS ORAL 01/28/20 21:00 02/04/20 20:59 01/29/20 21:44 Gabapentin (Neurontin) 900 mg TID GT 01/28/20 09:30 02/19/20 09:29 01/29/20 17:35 Haloperidol Lactate (Haldol) 5 mg Q6H PRN IM Agitation 01/28/20 09:30 02/15/20 09:29 Iohexol (OMNIPAQUE-300 100ml) 100 ml NOW PRN INJ Radiology Procedure 01/28/20 10:15 01/30/20 10:06 Levetiracetam (Keppra) 1,500 mg Q12HR GT 01/28/20 09:30 02/07/20 09:29 01/29/20 21:41 Levothyroxine Sodium (Synthroid) 50 mcg ACBREAKFAST GT 01/29/20 06:30 02/10/20 06:29 01/30/20 06:03 Magnesium Sulfate 100 ml @ 100 mls/hr Q1H IVPB 01/30/20 08:00 01/30/20 11:59 Metronidazole 100 ml @ 100 mls/hr Q8HR IVPB 01/28/20 22:00 02/04/20 21:59 01/30/20 06:04 Midodrine (Pro-Amatine) 10 mg TID GT 01/28/20 18:00 04/21/20 09:29 01/29/20 17:36 Multivitamins (Multivitamins W/ Minerals 15ml Liquid) 15 ml DAILY GT 01/28/20 09:30 02/27/20 09:29 01/29/20 09:54 Norepinephrine Bitartrate 250 ml @ 0 mls/hr Q24H IV 01/28/20 09:30 04/27/20 09:29 Ondansetron HCl (Zofran) 4 mg Q6H PRN GT Nausea & Vomiting 01/28/20 09:30 01/30/20 09:29 Oxcarbazepine (TrileptaL) 300 mg BEDTIME GT 01/28/20 21:00 02/07/20 20:59 01/29/20 21:42 Pantoprazole 80 mg/Sodium Chloride 250 ml @ 25 mls/hr Q10H IV 01/28/20 18:30 02/27/20 18:29 01/29/20 23:34 Potassium Phosphate 250 ml @ 62.5 mls/hr Q4H IVPB 01/30/20 08:00 01/30/20 15:59 Potassium Chloride 100 ml @ 100 mls/hr Q1HR IVPB 01/30/20 08:00 01/30/20 11:59 Sucralfate (Carafate) 1 gm FOUR TIMES A DAY ORAL 01/30/20 09:00 04/29/20 08:59 Thiamine HCl (Vitamin B1) 100 mg DAILY GT 01/28/20 09:30 02/27/20 09:29 01/29/20 09:28 Vancomycin HCl (Vanco pharmacy to dose) 1 ea DAILY PRN MISC Per rx protocol 01/28/20 10:45 02/27/20 10:44 Vancomycin HCl 500 mg/Dextrose 110 ml @ 110 mls/hr Q24H IVPB 01/29/20 12:00 02/03/20 11:59 01/29/20 11:17 Last 24 Hour Vital Signs Date Time Temp Pulse Resp B/P (MAP) Pulse Ox O2 Delivery O2 Flow Rate FiO2 01/30/20 07:10 76 20 30 01/30/20 04:00 98.5 90 23 93/61 (72) 96 01/30/20 04:00 Mechanical Ventilator 01/30/20 04:00 30 01/30/20 03:18 80 01/30/20 03:00 94 17 103/66 (78) 100 01/30/20 02:58 82 27 30 01/30/20 02:00 90 20 95/55 (68) 100 01/30/20 01:00 91 20 98/60 (73) 100 01/30/20 00:00 99.6 92 19 101/60 (74) 97 01/30/20 00:00 Mechanical Ventilator 01/29/20 23:20 93 01/29/20 23:00 92 20 98/60 (73) 100 01/29/20 23:00 80 31 30 01/29/20 22:00 94 18 103/77 (86) 100 01/29/20 21:00 94 18 101/73 (82) 100 01/29/20 20:21 85 29 30 01/29/20 20:00 Mechanical Ventilator 01/29/20 20:00 30 01/29/20 20:00 94 18 95/60 (72) 100 01/29/20 19:44 88 01/29/20 19:00 99.8 92 20 87/51 (63) 100 01/29/20 18:00 94 18 92/73 (79) 100 01/29/20 17:00 91 18 95/65 (75) 100 01/29/20 16:00 99.8 92 20 102/72 (82) 100 01/29/20 16:00 30 01/29/20 16:00 95 01/29/20 15:15 93 29 30 01/29/20 15:00 90 18 108/82 (91) 100 01/29/20 14:00 90 18 108/82 (91) 100 01/29/20 13:00 90 18 108/82 (91) 100 01/29/20 12:00 95 01/29/20 12:00 100.1 95 19 96/78 (84) 100 01/29/20 12:00 30 01/29/20 11:15 90 20 30 01/29/20 11:00 90 18 108/82 (91) 100 01/29/20 10:00 94 18 103/69 (80) 100 01/29/20 09:30 105/69 01/29/20 09:00 94 19 100/69 (79) 100 01/29/20 08:50 99 01/29/20 08:00 99.6 92 20 102/72 (82) 100 01/29/20 08:00 30 01/29/20 08:00 98 01/29/20 07:00 92 22 102/72 (82) 100 01/29/20 06:48 92 20 30 01/29/20 06:00 93 23 101/70 (80) 100 01/29/20 05:00 98 22 99/66 (77) 100 01/29/20 04:00 30 01/29/20 04:00 Mechanical Ventilator 01/29/20 04:00 94 01/29/20 04:00 99.4 101 24 100/63 (75) 100 01/29/20 03:00 98 25 101/76 (84) 100 01/29/20 02:44 96 25 30 01/29/20 02:00 99 26 101/65 (77) 100 01/29/20 01:00 97 26 101/66 (78) 100 01/29/20 00:00 30 01/29/20 00:00 97 01/29/20 00:00 Mechanical Ventilator 01/29/20 00:00 98.6 97 25 95/63 (74) 100 01/28/20 23:06 98 23 30 01/28/20 23:00 99 27 96/64 (75) 100 01/28/20 22:00 99 25 94/70 (78) 100 01/28/20 21:00 97 25 99/65 (76) 100 01/28/20 20:00 93 01/28/20 20:00 Mechanical Ventilator 01/28/20 20:00 98.8 99 26 94/70 (78) 100 01/28/20 20:00 30 01/28/20 19:20 91 22 30 01/28/20 19:00 91 20 100/64 (76) 100 01/28/20 18:00 90 20 95/60 (72) 100 01/28/20 17:00 84 20 97/65 (76) 100 01/28/20 16:00 86 01/28/20 16:00 30 01/28/20 16:00 Mechanical Ventilator 01/28/20 16:00 98.9 87 20 94/72 (79) 100 01/28/20 15:20 93 19 30 01/28/20 15:00 97 20 99/75 (83) 100 01/28/20 14:00 100 20 96/61 (73) 100 01/28/20 13:00 114 20 96/79 (85) 100 01/28/20 12:12 99.5 01/28/20 12:00 Mechanical Ventilator 01/28/20 12:00 114 01/28/20 12:00 99.6 109 20 103/78 (86) 100 01/28/20 12:00 30 01/28/20 11:00 124 20 89/56 (67) 100 01/28/20 10:50 118 28 30 01/28/20 10:17 74/51 (59) 98 01/28/20 10:00 99.3 120 20 88/56 (67) 100 01/28/20 10:00 Mechanical Ventilator 01/28/20 09:30 102/72 01/28/20 09:00 30 01/28/20 09:00 97 Intake and Output 01/29/20 01/30/20 19:00 07:00 Intake Total 2175.0 ml 1229.163 ml Output Total 800 ml 750 ml Balance 1375.0 ml 479.163 ml IV Total 2175.0 ml 1229.163 ml Stool Total 800 ml 550 ml Gastric Drainage Total 200 ml # Voids 4 4 Labs Test 01/27/20 17:01 01/27/20 20:55 01/28/20 00:00 01/28/20 00:45 POC Whole Blood Glucose 114 MG/DL (74-106) Urine Color Yellow Urine Appearance Cloudy Urine pH 6.5 (4.5-8.0) Urine Specific [place] 1.020 (1.005-1.035) Urine Protein 2+ (NEGATIVE) Urine Glucose (UA) Negative (NEGATIVE) Urine Ketones 1+ (NEGATIVE) Urine Blood 2+ (NEGATIVE) Urine Nitrite Positive (NEGATIVE) Urine Bilirubin Negative (NEGATIVE) Urine Urobilinogen 1 MG/DL (0.0-1.0) Urine Leukocyte Esterase 3+ (NEGATIVE) Urine RBC 5-10 /HPF (0 - 2) Urine WBC 2-4 /HPF (0 - 2) Urine Squamous Epithelial Cells Few /LPF (NONE/OCC) Urine Calcium Oxalate Crystals Moderate /LPF (NONE) Urine Amorphous Sediment Moderate /LPF (NONE) Urine Bacteria Many /HPF (NONE) Urine Yeast Occasional /HPF (NONE) Test 01/28/20 05:05 01/28/20 06:11 01/28/20 09:48 01/28/20 11:10 White Blood Count 38.0 K/UL (4.8-10.8) 43.3 K/UL (4.8-10.8) Red Blood Count 5.31 M/UL (4.20-5.40) 4.70 M/UL (4.20-5.40) Hemoglobin 15.7 G/DL (12.0-16.0) 13.8 G/DL (12.0-16.0) Hematocrit 49.5 % (37.0-47.0) 43.9 % (37.0-47.0) Mean Corpuscular Volume 93 FL (80-99) 93 FL (80-99) Mean Corpuscular Hemoglobin 29.5 PG (27.0-31.0) 29.3 PG (27.0-31.0) Mean Corpuscular Hemoglobin Concent 31.7 G/DL (32.0-36.0) 31.4 G/DL (32.0-36.0) Red Cell Distribution Width 16.1 % (11.6-14.8) 15.6 % (11.6-14.8) Platelet Count 438 K/UL (150-450) 393 K/UL (150-450) Mean Platelet Volume 6.6 FL (6.5-10.1) 6.6 FL (6.5-10.1) Neutrophils (%) (Auto) % (45.0-75.0) % (45.0-75.0) Lymphocytes (%) (Auto) % (20.0-45.0) % (20.0-45.0) Monocytes (%) (Auto) % (1.0-10.0) % (1.0-10.0) Eosinophils (%) (Auto) % (0.0-3.0) % (0.0-3.0) Basophils (%) (Auto) % (0.0-2.0) % (0.0-2.0) Differential Total Cells Counted 100 100 Neutrophils % (Manual) 95 % (45-75) 82 % (45-75) Lymphocytes % (Manual) 2 % (20-45) 6 % (20-45) Monocytes % (Manual) 3 % (1-10) 12 % (1-10) Eosinophils % (Manual) 0 % (0-3) 0 % (0-3) Basophils % (Manual) 0 % (0-2) 0 % (0-2) Band Neutrophils 0 % (0-8) 0 % (0-8) Platelet Estimate Adequate Adequate Platelet Morphology Normal Normal Red Blood Cell Morphology Normal Normal Sodium Level 147 MMOL/L (136-145) Potassium Level 4.7 MMOL/L (3.5-5.1) Chloride Level 108 MMOL/L (98-107) Carbon Dioxide Level 26 MMOL/L (21-32) Anion Gap 13 mmol/L (5-15) Blood Urea Nitrogen 53 mg/dL (7-18) Creatinine 1.2 MG/DL (0.55-1.30) Estimat Glomerular Filtration Rate 49.5 mL/min (>60) Glucose Level 193 MG/DL (74-106) Calcium Level 10.3 MG/DL (8.5-10.1) Phosphorus Level 4.3 MG/DL (2.5-4.9) Magnesium Level 2.1 MG/DL (1.8-2.4) Total Bilirubin 0.5 MG/DL (0.2-1.0) Aspartate Amino Transf (AST/SGOT) 26 U/L (15-37) Alanine Aminotransferase (ALT/SGPT) 37 U/L (12-78) Alkaline Phosphatase 90 U/L (46-116) C-Reactive Protein, Quantitative 11.3 mg/dL (0.00-0.90) Pro-B-Type Natriuretic Peptide 1470 pg/mL (0-125) Total Protein 8.4 G/DL (6.4-8.2) Albumin 3.2 G/DL (3.4-5.0) Globulin 5.2 g/dL Albumin/Globulin Ratio 0.6 (1.0-2.7) POC Whole Blood Glucose 185 MG/DL (74-106) Arterial Blood pH 7.485 (7.350-7.450) Arterial Blood Partial Pressure CO2 32.9 mmHg (35.0-45.0) Arterial Blood Partial Pressure O2 87.1 mmHg (75.0-100.0) Arterial Blood HCO3 24.2 mmol/L (22.0-26.0) Arterial Blood Oxygen Saturation 96.3 % (95-100) Arterial Blood Base Excess 1.4 (-2-2) [place] Test Positive Lactic Acid Level 2.30 mmol/L (0.4-2.0) Test 01/28/20 12:24 01/28/20 17:24 01/28/20 18:15 01/29/20 06:32 Lactic Acid Level 3.00 mmol/L (0.66-2.22) White Blood Count 39.4 K/UL (4.8-10.8) Red Blood Count 3.65 M/UL (4.20-5.40) Hemoglobin 11.1 G/DL (12.0-16.0) Hematocrit 35.5 % (37.0-47.0) Mean Corpuscular Volume 97 FL (80-99) Mean Corpuscular Hemoglobin 30.4 PG (27.0-31.0) Mean Corpuscular Hemoglobin Concent 31.2 G/DL (32.0-36.0) Red Cell Distribution Width 16.7 % (11.6-14.8) Platelet Count 287 K/UL (150-450) Mean Platelet Volume 7.3 FL (6.5-10.1) Neutrophils (%) (Auto) % (45.0-75.0) Lymphocytes (%) (Auto) % (20.0-45.0) Monocytes (%) (Auto) % (1.0-10.0) Eosinophils (%) (Auto) % (0.0-3.0) Basophils (%) (Auto) % (0.0-2.0) Differential Total Cells Counted 100 Neutrophils % (Manual) 88 % (45-75) Lymphocytes % (Manual) 7 % (20-45) Monocytes % (Manual) 4 % (1-10) Eosinophils % (Manual) 0 % (0-3) Basophils % (Manual) 1 % (0-2) Band Neutrophils 0 % (0-8) Platelet Estimate Adequate Platelet Morphology Normal Hypochromasia 1+ Anisocytosis 1+ Ferritin 354 NG/ML (8-388) Test 01/29/20 06:37 01/30/20 04:46 White Blood Count 33.3 K/UL (4.8-10.8) 22.3 K/UL (4.8-10.8) Red Blood Count 3.37 M/UL (4.20-5.40) 2.76 M/UL (4.20-5.40) Hemoglobin 9.8 G/DL (12.0-16.0) 8.4 G/DL (12.0-16.0) Hematocrit 31.8 % (37.0-47.0) 25.6 % (37.0-47.0) Mean Corpuscular Volume 95 FL (80-99) 93 FL (80-99) Mean Corpuscular Hemoglobin 29.2 PG (27.0-31.0) 30.5 PG (27.0-31.0) Mean Corpuscular Hemoglobin Concent 30.8 G/DL (32.0-36.0) 32.9 G/DL (32.0-36.0) Red Cell Distribution Width 15.2 % (11.6-14.8) 15.2 % (11.6-14.8) Platelet Count 242 K/UL (150-450) 235 K/UL (150-450) Mean Platelet Volume 7.1 FL (6.5-10.1) 7.3 FL (6.5-10.1) Neutrophils (%) (Auto) % (45.0-75.0) % (45.0-75.0) Lymphocytes (%) (Auto) % (20.0-45.0) % (20.0-45.0) Monocytes (%) (Auto) % (1.0-10.0) % (1.0-10.0) Eosinophils (%) (Auto) % (0.0-3.0) % (0.0-3.0) Basophils (%) (Auto) % (0.0-2.0) % (0.0-2.0) Differential Total Cells Counted 100 Neutrophils % (Manual) 87 % (45-75) Lymphocytes % (Manual) 9 % (20-45) Monocytes % (Manual) 4 % (1-10) Eosinophils % (Manual) 0 % (0-3) Basophils % (Manual) 0 % (0-2) Band Neutrophils 0 % (0-8) Platelet Estimate Adequate Platelet Morphology Normal Hypochromasia 2+ Anisocytosis 1+ Sodium Level 149 MMOL/L (136-145) 144 MMOL/L (136-145) Potassium Level 2.9 MMOL/L (3.5-5.1) 2.6 MMOL/L (3.5-5.1) Chloride Level 115 MMOL/L (98-107) 112 MMOL/L (98-107) Carbon Dioxide Level 25 MMOL/L (21-32) 24 MMOL/L (21-32) Anion Gap 9 mmol/L (5-15) 8 mmol/L (5-15) Blood Urea Nitrogen 32 mg/dL (7-18) 15 mg/dL (7-18) Creatinine 0.6 MG/DL (0.55-1.30) 0.4 MG/DL (0.55-1.30) Estimat Glomerular Filtration Rate > 60 mL/min (>60) > 60 mL/min (>60) Glucose Level 122 MG/DL (74-106) 100 MG/DL (74-106) Lactic Acid Level 1.60 mmol/L (0.4-2.0) Uric Acid 4.5 MG/DL (2.6-7.2) Calcium Level 8.1 MG/DL (8.5-10.1) 8.5 MG/DL (8.5-10.1) Phosphorus Level 2.0 MG/DL (2.5-4.9) 1.2 MG/DL (2.5-4.9) Magnesium Level 1.7 MG/DL (1.8-2.4) 1.6 MG/DL (1.8-2.4) Total Bilirubin 0.4 MG/DL (0.2-1.0) 0.4 MG/DL (0.2-1.0) Gamma Glutamyl Transpeptidase 62 U/L (5-85) Aspartate Amino Transf (AST/SGOT) 18 U/L (15-37) 14 U/L (15-37) Alanine Aminotransferase (ALT/SGPT) 24 U/L (12-78) 18 U/L (12-78) Alkaline Phosphatase 54 U/L (46-116) 52 U/L (46-116) C-Reactive Protein, Quantitative 11.9 mg/dL (0.00-0.90) 15.5 mg/dL (0.00-0.90) Pro-B-Type Natriuretic Peptide 306 pg/mL (0-125) 366 pg/mL (0-125) Total Protein 6.0 G/DL (6.4-8.2) 5.5 G/DL (6.4-8.2) Albumin 2.4 G/DL (3.4-5.0) 2.1 G/DL (3.4-5.0) Globulin 3.6 g/dL 3.4 g/dL Albumin/Globulin Ratio 0.7 (1.0-2.7) 0.6 (1.0-2.7) Height (Feet): 5 Height (Inches): 1.00 Weight (Pounds): 71 Objective Vital Signs General Appearance: ++ cachectic, chronically ill HEENT: normocephalic, atraumatic ++ trach Resp: other -. vent ++ Cardiovascular: regular rate, rhythm, no edema Gastrointestinal: gtube in place, without erythema Rectal: other - Hemoccult positive [place]: back normal, gait/station normal, non-tender Lymphatic: no adenopathy Baltazar Cortes MD Jan 30, 2020 08:50
[2020-01-30] MEDS ORDERED: Pantoprazole Inj IVP SCH (09:00)
[2020-01-30] MEDS: levETIRAcetam 500mg/5ml Liquid GT SCH ×2 (09:00→20:35)
[2020-01-30] MEDS: Potassium Phosphate 15mm/250ml 250 ML IVPB SCH ×2 (09:00→12:17)
[2020-01-30] MEDS: Multivitamins W/Minerals 15 ML UDC GT SCH (09:01)
[2020-01-30] MEDS: Gabapentin 300 MG/6 ML Soln GT SCH ×3 (09:01→17:55)
[2020-01-30] MEDS: Ascorbic Acid 500mg tab GT SCH (09:02)
[2020-01-30] MEDS: Thiamine 100mg tab GT SCH (09:02)
[2020-01-30] MEDS: D5 1/2NS 1,000 ML IV SCH ×2 (09:02→17:56)
[2020-01-30] MEDS: Cefepime HCl 1 GM in D5W 55 ML IVPB SCH ×2 (09:03→20:37)
[2020-01-30] MEDS: Sucralfate 1gm tab ORAL SCH ×4 (09:03→20:35)
[2020-01-30] MEDS: Acetaminophen 650mg/20.3ml GT PRN (09:04)
[2020-01-30] MEDS: Norepinephrine 4mg/NS Premix 250 ML IV SCH (09:04)
[2020-01-30] MEDS: Pantoprazole 80 MG in NS 250 ML IV SCH ×2 (09:55→20:20)
--- NOTE | 2020-01-30 10:13 | Pulmonolgy Critical Care Note ---
Critical Care - Asmt/Plan Assessment/Plan: ASSESSMENT VDRF/trach status Sepsis with shock Possible pneumonia UTI recurrent GI bleeding C dif colitis, persistent Bronchiolitis, posibly due to aspiration Mild bronchiectasis Anemia secondary to GI bleeding Aspiration risk Dysphagia, feeding by G-tube Encephalopathy Acute kidney injury likely secondary to dehydration Recurrent bradycardia Persistent Hypotension Electrolyte imbalance Severe protein calorie malnutrition Hx of hypertension History of CVA Seizure disorder with witnessed seizure episode 01/07 Psychiatric disorder Presumed scabies, s/p Rx Thrombocytopenia-transient- resolved PLAN OF CARE in ICU on IVF, BP on the low side but stable, no need for pressors at thsi time vent support, pulm toilet ABG stable on current settings on SIMV mode 450-30-12 PEEP5 , no signs of resp distress on these settings keep settings as is and titrate as needed now tachypneic intermittently CXR 01/27 no acute disease pulm toilet via N Ct chest 01/28 - with tree-in-bud nodular opacities in the medial left base and lingula with left bronchial bubbly material suggesting infectious or inflammatory bronchiolitis, likely due to aspiration. Small amount of similar foci seen in the right posterior lower lobe. Mild bronchiectasis and reticulation in the lingula, medial left base, and superior left upper lobe could also be due to chronic infection. leuk trending down, still significant , no fevers pancx-per ID CXR 01/13- no acute findings KUB 01/13- no acute findings UA + yeast , 01/12 UCX +yeast, started on Fluconazole 01/14 as per ID - completed BCX 01/12 NGTD abx as per ID recs Vanco po was prior dc and switched to Dificid , also on Flagyl per GI -till 01/28 , extended till 02/03 inflammatory markers : ESR-42, CRP- wnl WBC smear NGT UA + bacteria, no pyuria, UCX 01/27 + GNR BCX 01/26 and 01/[address] C/ A/P noted ( see results of CT chest above), CT A/P with findings most compatible with ileus and probable infectious or inflammatory enteritis or enterocolitis. now on empiric cefepime and Vanco ( in addition to Flagyl and Dificid) rapid COVID 19 NGT in ED aspiration precautions Venous Duplex BLE -negative, get SCD ( unable to give a/c given anemia) closely monitor hemodynamic status Protonix IV , Carafate GT feeding stool OB positive , another pending transfuse to keep Hgb > 7. Hg btrendgin down EGD planned as per GI heme and GI follows s/p prior EGD 01/01 -> gastric ulcer across G tube site , no active bleeding HH at baseline trend LFT-> trended down, hep panel NGT hx of cirrhosis- per GI management monitor renal parameters, lytes, avoid nephrotoxic IVF BUN trending down, creat stable, likely prerenal due to dehydration replace e/lytes as per nephro recs , K and Mg replaced this am as per nephro monitor volumes seizure precautions, antiepileptic optimized as per neuro recs ammonia 49, fup with further neuro recs EEG - grossly abnormal; mild to mod encephalopathy, single ictal episode CT head no acute IC pathology BP management with current regimen SNF meds supportive care dietary recs s/p 12/31 Rx for presumed scabies with permethrin and Ivermectin, repeated Ivermectin 01/08 case discussed and evaluated by supervising physician Critical Care - Objective Last 24 Hour Vital Signs Date Time Temp Pulse Resp B/P (MAP) Pulse Ox O2 Delivery O2 Flow Rate FiO2 01/30/20 09:34 99.3 01/30/20 09:04 100/45 01/30/20 07:10 76 20 30 01/30/20 04:00 98.5 90 23 93/61 (72) 96 01/30/20 04:00 Mechanical Ventilator 01/30/20 04:00 30 01/30/20 03:18 80 01/30/20 03:00 94 17 103/66 (78) 100 01/30/20 02:58 82 27 30 01/30/20 02:00 90 20 95/55 (68) 100 01/30/20 01:00 91 20 98/60 (73) 100 01/30/20 00:00 99.6 92 19 101/60 (74) 97 01/30/20 00:00 Mechanical Ventilator 01/29/20 23:20 93 01/29/20 23:00 92 20 98/60 (73) 100 01/29/20 23:00 80 31 30 01/29/20 22:00 94 18 103/77 (86) 100 01/29/20 21:00 94 18 101/73 (82) 100 01/29/20 20:21 85 29 30 01/29/20 20:00 Mechanical Ventilator 01/29/20 20:00 30 01/29/20 20:00 94 18 95/60 (72) 100 01/29/20 19:44 88 01/29/20 19:00 99.8 92 20 87/51 (63) 100 01/29/20 18:00 94 18 92/73 (79) 100 01/29/20 17:00 91 18 95/65 (75) 100 01/29/20 16:00 99.8 92 20 102/72 (82) 100 01/29/20 16:00 30 01/29/20 16:00 95 01/29/20 15:15 93 29 30 01/29/20 15:00 90 18 108/82 (91) 100 01/29/20 14:00 90 18 108/82 (91) 100 01/29/20 13:00 90 18 108/82 (91) 100 01/29/20 12:00 95 01/29/20 12:00 100.1 95 19 96/78 (84) 100 01/29/20 12:00 30 01/29/20 11:15 90 20 30 01/29/20 11:00 90 18 108/82 (91) 100 Objective: General Appearance: bedridden, pale, chronically ill looking, older than her biological age ; vent dependent female ; on vent SIMV 450-30%-12, PEEP 5 Lines, tubes and drains: peripheral, trach HEENT: normocephalic, atraumatic Neck: trach - Portex #7, secretions small amount, yellow color, thin consistency Respiratory/Chest: CTAB, tachypneic in low 20th Cardiovascular/Chest: regular rate, regular rhythm Abdomen: non tender, soft, G tube to suction with dark brown drainage , rectal tube with brownish output Genitourinary/Rectal: [place] Extremities: no edema, muscle atrophy Neurologic: abnormal gait, poorly responsive, awake , eyes open Musculoskeletal: atrophy BLE Skin: multiple tattoos Micro: Microbiology Date/Time Source Procedure Growth Status 01/28/20 11:25 Blood Blood Culture - Preliminary NO GROWTH AFTER 24 HOURS Resulted 01/28/20 11:10 Blood Blood Culture - Preliminary NO GROWTH AFTER 24 HOURS Resulted 01/27/20 19:24 Blood Blood Culture - Preliminary NO GROWTH AFTER 48 HOURS Resulted 01/27/20 19:14 Blood Blood Culture - Preliminary NO GROWTH AFTER 48 HOURS Resulted 01/28/20 00:00 Urine,Clean Catch Urine Culture - Preliminary Gram Negative Bacillus 1 Resulted Accucheck: 88 Critical Care - Subjective ROS Limited/Unobtainable: Yes Interval Events: remains in ICU, no signs of resp distress on current settings off Dopamine, no pressors, BP on the low side , but stable IVF WBC trending down, no fevers low K and Mg on IV Protonix, rectal tube with brownish output ( no further bleeding), G tube drainage with dark brown output \ Hgb down to 8.4 Condition: critical IV Access: peripheral EKG Rhythm: Sinus Rhythm FI02: 30 Vent Support Breath Rate: 12 Vent Support Mode: IMV/SIMV Vent Tidal Volume: 450 Sputum Amount: Small - small amount, yellow color, thin consistency PEEP: 5.0 PIP: 23 Fluids: D51/2 NS at 100 Tube Feeding Amount: 55 I&O: Intake and Output 01/29/20 01/30/20 19:00 07:00 Intake Total 2175.0 ml 1229.163 ml Output Total 800 ml 750 ml Balance 1375.0 ml 479.163 ml IV Total 2175.0 ml 1229.163 ml Stool Total 800 ml 550 ml Gastric Drainage Total 200 ml # Voids 4 4 CXR: CT chest 01/28 - 1. Tracheostomy. 2. Tree-in-bud nodular opacities in the medial left base and lingula with left bronchial bubbly material suggest infectious or inflammatory bronchiolitis, likely due to aspiration. Small amount of similar foci seen in the right posterior lower lobe. 3. Mild bronchiectasis and reticulation in the lingula, medial left base, and superior left upper lobe could also be due to chronic infection. 4. Small hiatal hernia with ingested distal esophageal contents could be seen with reflux or dysmotility. Ivanna Mora NP Jan 30, 2020 10:13
[2020-01-30] MEDS: Vancomycin 500mg/D5W 110ml IVPB SCH ×2 (12:17)
--- NOTE | 2020-01-30 13:31 | Nephrology Progress Note ---
Assessment/Plan Problem List: (1) RICHARD (acute kidney injury) (2) Dehydration (3) Anemia (4) GI bleed (5) Malnutrition (6) Seizure disorder (7) Electrolyte imbalance Assessment Renal failure, in the form of prerenal azotemia, most likely secondary to GI bleed GI bleed, leading to severe anemia Sepsis, pneumonia Chronic tracheostomy, ventilator dependent History of CVA History of seizure disorder History of psychiatric disorder Severe malnutrition Electrolyte abnormalities Plan January 29: Labs reviewed. Magnesium, potassium, phosphorus supplement given. White blood cells down to 22,000. Remains full code. Continue per consultants. RN reports rectal bleed. Hemoglobin drifting down. Defer management to marine pilot who is already on the case. January 28: Status quo. Electrolyte abnormalities noted. Mag Phos and potassium supplement IV given. Renal parameters stable. Continue per consultants. Leukocytosis persists. January 27: Significant rise in white blood cell counts. Hypotensive. Now in ICU. Will give albumin bolus. Continue to monitor renal parameters. Continue per ID advice. January 26: Continue to monitor renal parameters. Patient remains on ventilator. Patient is full code. Continue per consultants. January 25: Status quo. Labs reviewed. Continue per consultants. January 24: Status unchanged. Labs reviewed. Remains stable from renal standpoint of view. January 23: Back in [place]. Stable from renal standpoint of view. Continue per consultants. January 22: Patient in ICU now. Vital signs and heart rate and blood pressure appears to be stable. Patient had an episode of bradycardia but it was resolved. TSH level today is very low will cut down on Synthroid dose. January 21: Today's labs are reviewed. Stable renal parameters. Continue per consultants. January 20: Labs reviewed. Renal parameters stable. January 19: Labs reviewed. Stable from renal standpoint. January 18: No labs done today. Continue per consultants. Medications reviewed. January 17: Late note entry due to system problem at the [facility] today.Chemistry panel reviewed. Stable from renal standpoint of view. Continue per current management. January 16: No can panel today. Check lab tomorrow. Remains stable from renal standpoint of view. January 15: Lab reviewed. Renal parameters stable. January 14: Lab reviewed. Renal parameters stable. January 13: Labs reviewed. Stable from renal standpoint of view. January 12: Labs reviewed. Stable from renal standpoint of view January 11: No labs drawn today stable from renal standpoint of view January 10: Labs reviewed. Potassium supplement given. Continue per consultants. January 09: Lab reviewed. Potassium supplement given. IV fluid discontinued. January 08: Lab reviewed. Renal parameters stable. Continue per consultants. January 07: Lab reviewed. Renal parameters stable. Continue per consultants. January 06: Lab reviewed. Stable from renal standpoint of view. January 05: Labs reviewed. Stable from renal standpoint of view. Continue per consultants. January 04: No labs drawn today. Will check labs tomorrow. Continue per consultants. January 03: Lab reviewed. Renal parameters stable. IV fluid discontinued. High LFTs declining. Continue same. January 02: Lab reviewed. Renal parameters stable. Continue per PMD and consultants. LFTs remain elevated. Continue to monitor. Continue slow hydration Discontinue blood pressure medications as her blood pressure is low Discontinue diuretics Monitor renal parameters Transfusion as needed GI evaluation Correct electrolyte abnormalities Check B12 level, folate, and thyroid function tests: Results noted Subjective ROS Limited/Unobtainable: Yes Objective Objective Last 24 Hour Vital Signs Date Time Temp Pulse Resp B/P (MAP) Pulse Ox O2 Delivery O2 Flow Rate FiO2 01/30/20 12:33 74 24 30 01/30/20 12:33 100 01/30/20 12:00 67 01/30/20 12:00 98.9 70 20 103/48 (66) 100 01/30/20 12:00 30 01/30/20 11:00 76 20 96/46 (63) 100 01/30/20 10:00 89 20 101/49 (66) 99 01/30/20 09:34 99.3 01/30/20 09:04 100/45 01/30/20 09:00 87 20 100/48 (65) 98 01/30/20 08:00 68 01/30/20 08:00 89 20 91/45 (60) 97 01/30/20 08:00 30 01/30/20 07:10 76 20 30 01/30/20 07:00 101.7 86 20 92/49 (63) 97 01/30/20 04:00 98.5 90 23 93/61 (72) 96 01/30/20 04:00 Mechanical Ventilator 01/30/20 04:00 30 01/30/20 03:18 80 01/30/20 03:00 94 17 103/66 (78) 100 01/30/20 02:58 82 27 30 01/30/20 02:00 90 20 95/55 (68) 100 01/30/20 01:00 91 20 98/60 (73) 100 01/30/20 00:00 99.6 92 19 101/60 (74) 97 01/30/20 00:00 Mechanical Ventilator 01/29/20 23:20 93 01/29/20 23:00 92 20 98/60 (73) 100 01/29/20 23:00 80 31 30 01/29/20 22:00 94 18 103/77 (86) 100 01/29/20 21:00 94 18 101/73 (82) 100 01/29/20 20:21 85 29 30 01/29/20 20:00 Mechanical Ventilator 01/29/20 20:00 30 01/29/20 20:00 94 18 95/60 (72) 100 01/29/20 19:44 88 01/29/20 19:00 99.8 92 20 87/51 (63) 100 01/29/20 18:00 94 18 92/73 (79) 100 01/29/20 17:00 91 18 95/65 (75) 100 01/29/20 16:00 99.8 92 20 102/72 (82) 100 01/29/20 16:00 30 01/29/20 16:00 95 01/29/20 15:15 93 29 30 01/29/20 15:00 90 18 108/82 (91) 100 01/29/20 14:00 90 18 108/82 (91) 100 Intake and Output 01/29/20 01/30/20 19:00 07:00 Intake Total 2175.0 ml 1229.163 ml Output Total 800 ml 750 ml Balance 1375.0 ml 479.163 ml IV Total 2175.0 ml 1229.163 ml Stool Total 800 ml 550 ml Gastric Drainage Total 200 ml # Voids 4 4 Laboratory Tests 01/30/20 04:46: White Blood Count 22.3*H, Red Blood Count 2.76L, Hemoglobin 8.4L, Hematocrit 25.6L, Mean Corpuscular Volume 93, Mean Corpuscular Hemoglobin 30.5, Mean Corpuscular Hemoglobin Concent 32.9, Red Cell Distribution Width 15.2H, Platelet Count 235, Mean Platelet Volume 7.3, Neutrophils (%) (Auto) , Lymphocytes (%) (Auto) , Monocytes (%) (Auto) , Eosinophils (%) (Auto) , Basophils (%) (Auto) , Differential Total Cells Counted 100, Neutrophils % ( Manual) 86H, Lymphocytes % (Manual) 7L, Monocytes % (Manual) 7, Eosinophils % ( Manual) 0, Basophils % (Manual) 0, Band Neutrophils 0, Platelet Estimate Adequate, Platelet Morphology Normal, Hypochromasia 1+, Anisocytosis 1+, Sodium Level 144, Potassium Level 2.6*L, Chloride Level 112H, Carbon Dioxide Level 24, Anion Gap 8, Blood Urea Nitrogen 15, Creatinine 0.4L, Estimat Glomerular Filtration Rate > 60, Glucose Level 100, Calcium Level 8.5, Phosphorus Level 1.2L, Magnesium Level 1.6L, Total Bilirubin 0.4, Aspartate Amino Transf (AST/ SGOT) 14L, Alanine Aminotransferase (ALT/SGPT) 18, Alkaline Phosphatase 52, C- Reactive Protein, Quantitative 15.5H, Pro-B-Type Natriuretic Peptide 366H, Total Protein 5.5L, Albumin 2.1L, Globulin 3.4, Albumin/Globulin Ratio 0.6L Height (Feet): 5 Height (Inches): 1.00 Weight (Pounds): 71 General Appearance: no apparent distress, lethargic EENT: other - Trach to vent Cardiovascular: normal rate Respiratory/Chest: decreased breath sounds Abdomen: distended Objective No change Chivo Holloway MD Jan 30, 2020 13:31
[2020-01-30 14:42] LABS: HEMATOCRIT 24.3 % (37.0-47.0); HEMOGLOBIN 7.7 G/DL (12.0-16.0); MEAN CORPUSCULAR VOLUME 94 FL (80-99); PLATELET COUNT 213 K/UL (150-450); RED BLOOD COUNT 2.58 M/UL (4.20-5.40); RED CELL DISTRIBUTION WIDTH 15.1 % (11.6-14.8); WHITE BLOOD COUNT 21.5 K/UL (4.8-10.8)
--- NOTE | 2020-01-30 14:53 | Infectious Diseases Prog Note ---
Assessment/Plan 39yo F with: Severe Sepsis Fever, recurrent Leukocytosis; recurrent; increased- now improving UTI -01/28 CXR: Subtle reticular nodular opacities in the left apex which may be related to scarring versus acute small airway disease/bronchitis CT c/abd/p wo: Study substantially limited due to lack of IV contrast. Findings most compatible with ileus and probable infectious or inflammatory enteritis or enterocolitis. Large low-attenuation pelvic fluid of uncertain significance, potentially reactive.Appendix not identified. Percutaneous gastrostomy tube adequately positioned in the stomach. Rectal tube. Urinary bladder wall thickening could be incidental, due to high outlet pressures, or could represent cystitis.Cholecystectomy. -01/27 u/a no pyuria, nit +, leuk +3; ucx >100k GNR CXR: no acute disease Bc xNTD -01/26 Bcx NTD -01/13 CXR: no acute disease -01/12 u/a wbc tnct, nit neg, latrell +3; ucx >100k C. tropicalis Bcx NTD Severe Cdiff colitis -Cdif toxin + 01/27 KUB:Severely dilated small bowel loop in the central abdomen could reflect obstruction. Diffusely fluid distended colon. -01/13 KUB: no acute findings Recurrent GIB 01/06 u/aneg 12/30 BCx 1/2 +CONS, likely contaminant 12/30 UA neg, COVID rapid Ag neg 12/30 CXR 1. Density overlying the bilateral lung apices. May represent pleural thickening, multifocal airspace opacities, versus summation artifact. 01/01 BCx Neg 01/02 BCx Neg Acute blood loss anemia Possible pna on CXR, sp rx Seizure episode -01/10 CT head: Third and lateral ventriculomegaly. Associated enlargement of the extra axial CSF spaces indicates that this is probably due to central volume loss, but the possibility of hydrocephalus should also be considered. At the degree of volume loss is considerably out of proportion to patient's age. Periventricular deep white matter low-attenuation. Probably on the basis of microvascular ischemic change but given patient's age the possibility of demyelinating disease should be considered as well. 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 [facility] will continue to follow. Subjective Allergies: Coded Allergies: CARBAMAZEPINE (Verified Allergy, Unknown, 12/31/19) LORAZEPAM (Verified Allergy, Unknown, 12/31/19) Tm 101.7 wbc improving bcx nTD Objective Last 24 Hour Vital Signs Date Time Temp Pulse Resp B/P (MAP) Pulse Ox O2 Delivery O2 Flow Rate FiO2 01/30/20 13:00 63 20 104/49 (67) 100 01/30/20 12:33 74 24 30 01/30/20 12:33 100 01/30/20 12:00 67 01/30/20 12:00 Mechanical Ventilator 01/30/20 12:00 98.9 70 20 103/48 (66) 100 01/30/20 12:00 30 01/30/20 11:00 76 20 96/46 (63) 100 01/30/20 10:00 89 20 101/49 (66) 99 01/30/20 09:34 99.3 01/30/20 09:04 100/45 01/30/20 09:00 87 20 100/48 (65) 98 01/30/20 08:00 Mechanical Ventilator 01/30/20 08:00 68 01/30/20 08:00 89 20 91/45 (60) 97 01/30/20 08:00 30 01/30/20 07:10 76 20 30 01/30/20 07:00 101.7 86 20 92/49 (63) 97 01/30/20 04:00 98.5 90 23 93/61 (72) 96 01/30/20 04:00 Mechanical Ventilator 01/30/20 04:00 30 01/30/20 03:18 80 01/30/20 03:00 94 17 103/66 (78) 100 01/30/20 02:58 82 27 30 01/30/20 02:00 90 20 95/55 (68) 100 01/30/20 01:00 91 20 98/60 (73) 100 01/30/20 00:00 99.6 92 19 101/60 (74) 97 01/30/20 00:00 Mechanical Ventilator 01/29/20 23:20 93 01/29/20 23:00 92 20 98/60 (73) 100 01/29/20 23:00 80 31 30 01/29/20 22:00 94 18 103/77 (86) 100 01/29/20 21:00 94 18 101/73 (82) 100 01/29/20 20:21 85 29 30 01/29/20 20:00 Mechanical Ventilator 01/29/20 20:00 30 01/29/20 20:00 94 18 95/60 (72) 100 01/29/20 19:44 88 01/29/20 19:00 99.8 92 20 87/51 (63) 100 01/29/20 18:00 94 18 92/73 (79) 100 01/29/20 17:00 91 18 95/65 (75) 100 01/29/20 16:00 99.8 92 20 102/72 (82) 100 01/29/20 16:00 30 01/29/20 16:00 95 01/29/20 15:15 93 29 30 01/29/20 15:00 90 18 108/82 (91) 100 Height (Feet): 5 Height (Inches): 1.00 Weight (Pounds): 71 General Appearance: no apparent distress Neck: supple Cardiovascular: normal rate Respiratory/Chest: decreased breath sounds Abdomen: hypoactive bowel sounds Extremities: non-tender Microbiology Date/Time Source Procedure Growth Status 01/28/20 11:25 Blood Blood Culture - Preliminary NO GROWTH AFTER 24 HOURS Resulted 01/28/20 11:10 Blood Blood Culture - Preliminary NO GROWTH AFTER 24 HOURS Resulted 01/28/20 00:00 Urine,Clean Catch Urine Culture - Preliminary Gram Negative Bacillus 1 Resulted 01/27/20 19:24 Blood Blood Culture - Preliminary NO GROWTH AFTER 48 HOURS Resulted 01/27/20 19:14 Blood Blood Culture - Preliminary NO GROWTH AFTER 48 HOURS Resulted Laboratory Tests Test 01/30/20 04:46 01/30/20 14:00 White Blood Count 22.3 K/UL (4.8-10.8) *H 21.5 K/UL (4.8-10.8) H Red Blood Count 2.76 M/UL (4.20-5.40) L 2.58 M/UL (4.20-5.40) L Hemoglobin 8.4 G/DL (12.0-16.0) L 7.7 G/DL (12.0-16.0) L Hematocrit 25.6 % (37.0-47.0) L 24.3 % (37.0-47.0) L Mean Corpuscular Volume 93 FL (80-99) 94 FL (80-99) Mean Corpuscular Hemoglobin 30.5 PG (27.0-31.0) 30.0 PG (27.0-31.0) Mean Corpuscular Hemoglobin Concent 32.9 G/DL (32.0-36.0) 31.9 G/DL (32.0-36.0) L Red Cell Distribution Width 15.2 % (11.6-14.8) H 15.1 % (11.6-14.8) H Platelet Count 235 K/UL (150-450) 213 K/UL (150-450) Mean Platelet Volume 7.3 FL (6.5-10.1) 7.4 FL (6.5-10.1) Neutrophils (%) (Auto) % (45.0-75.0) % (45.0-75.0) Lymphocytes (%) (Auto) % (20.0-45.0) % (20.0-45.0) Monocytes (%) (Auto) % (1.0-10.0) % (1.0-10.0) Eosinophils (%) (Auto) % (0.0-3.0) % (0.0-3.0) Basophils (%) (Auto) % (0.0-2.0) % (0.0-2.0) Differential Total Cells Counted 100 Neutrophils % (Manual) 86 % (45-75) H Pending Lymphocytes % (Manual) 7 % (20-45) L Pending Monocytes % (Manual) 7 % (1-10) Eosinophils % (Manual) 0 % (0-3) Basophils % (Manual) 0 % (0-2) Band Neutrophils 0 % (0-8) Platelet Estimate Adequate Pending Platelet Morphology Normal Pending Hypochromasia 1+ Anisocytosis 1+ Sodium Level 144 MMOL/L (136-145) Potassium Level 2.6 MMOL/L (3.5-5.1) *L Chloride Level 112 MMOL/L (98-107) H Carbon Dioxide Level 24 MMOL/L (21-32) Anion Gap 8 mmol/L (5-15) Blood Urea Nitrogen 15 mg/dL (7-18) Creatinine 0.4 MG/DL (0.55-1.30) L Estimat Glomerular Filtration Rate > 60 mL/min (>60) Glucose Level 100 MG/DL (74-106) Calcium Level 8.5 MG/DL (8.5-10.1) Phosphorus Level 1.2 MG/DL (2.5-4.9) L Magnesium Level 1.6 MG/DL (1.8-2.4) L Total Bilirubin 0.4 MG/DL (0.2-1.0) Aspartate Amino Transf (AST/SGOT) 14 U/L (15-37) L Alanine Aminotransferase (ALT/SGPT) 18 U/L (12-78) Alkaline Phosphatase 52 U/L (46-116) C-Reactive Protein, Quantitative 15.5 mg/dL (0.00-0.90) H Pro-B-Type Natriuretic Peptide 366 pg/mL (0-125) H Total Protein 5.5 G/DL (6.4-8.2) L Albumin 2.1 G/DL (3.4-5.0) L Globulin 3.4 g/dL Albumin/Globulin Ratio 0.6 (1.0-2.7) L Current Medications Medications (Trade) Dose Ordered Sig/Villa Route PRN Reason Start Time Stop Time Status Last Admin Dose Admin Acetaminophen (Tylenol) 650 mg Q6H PRN GT Temp >100.5 01/28/20 09:30 01/31/20 09:29 01/30/20 09:04 Ascorbic Acid (Vitamin C) 500 mg DAILY GT 01/28/20 09:30 02/27/20 09:29 01/30/20 09:02 Barium Sulfate (Readi-Cat 2) 450 ml NOW PRN ORAL Radiology Procedure 01/28/20 15:00 01/30/20 14:51 Cefepime HCl 1 gm/ Dextrose 55 ml @ 110 mls/hr EVERY 12 HOURS IVPB 01/28/20 10:15 02/04/20 10:14 01/30/20 09:03 Dextrose/Sodium Chloride 1,000 ml @ 100 mls/hr Q10H IV 01/29/20 13:00 02/27/20 12:59 01/30/20 09:02 Famotidine (Pepcid I.v.) 20 mg Q12HR IVP 01/29/20 21:00 02/28/20 20:59 01/30/20 09:02 Fidaxomicin (Dificid) 200 mg EVERY 12 HOURS ORAL 01/28/20 21:00 02/04/20 20:59 01/30/20 09:03 Gabapentin (Neurontin) 900 mg TID GT 01/28/20 09:30 02/19/20 09:29 01/30/20 12:17 Haloperidol Lactate (Haldol) 5 mg Q6H PRN IM Agitation 01/28/20 09:30 02/15/20 09:29 Levetiracetam (Keppra) 1,500 mg Q12HR GT 01/28/20 09:30 02/07/20 09:29 01/30/20 09:00 Levothyroxine Sodium (Synthroid) 50 mcg ACBREAKFAST GT 01/29/20 06:30 02/10/20 06:29 01/30/20 06:03 Metronidazole 100 ml @ 100 mls/hr Q8HR IVPB 01/28/20 22:00 02/04/20 21:59 01/30/20 13:05 Midodrine (Pro-Amatine) 10 mg TID GT 01/28/20 18:00 04/21/20 09:29 01/30/20 12:18 Multivitamins (Multivitamins W/ Minerals 15ml Liquid) 15 ml DAILY GT 01/28/20 09:30 02/27/20 09:29 01/30/20 09:01 Norepinephrine Bitartrate 250 ml @ 0 mls/hr Q24H IV 01/28/20 09:30 04/27/20 09:29 Oxcarbazepine (TrileptaL) 300 mg BEDTIME GT 01/28/20 21:00 02/07/20 20:59 01/29/20 21:42 Pantoprazole 80 mg/Sodium Chloride 250 ml @ 25 mls/hr Q10H IV 01/30/20 10:00 02/29/20 09:59 01/30/20 09:55 Potassium Phosphate 250 ml @ 62.5 mls/hr Q4H IVPB 01/30/20 08:00 01/30/20 15:59 01/30/20 12:17 Sucralfate (Carafate) 1 gm FOUR TIMES A DAY ORAL 01/30/20 09:00 04/29/20 08:59 01/30/20 12:18 Thiamine HCl (Vitamin B1) 100 mg DAILY GT 01/28/20 09:30 02/27/20 09:29 01/30/20 09:02 Vancomycin HCl (Vanco pharmacy to dose) 1 ea DAILY PRN MISC Per rx protocol 01/28/20 10:45 02/27/20 10:44 Vancomycin HCl 500 mg/Dextrose 110 ml @ 110 mls/hr Q24H IVPB 01/29/20 12:00 02/03/20 11:59 01/30/20 12:17 Char Morel M.D. Jan 30, 2020 14:53
[2020-01-30] MEDS ORDERED: NS 275ml ONE ×3 (15:19→15:34)
[2020-01-30] MEDS ORDERED: Tubing IV Secondary IV ONE ×3 (15:19→15:34)
--- NOTE | 2020-01-30 18:15 | Surgery Progress Note ---
Surgery Progress Note Subjective Additional Comments no blood in rectal tube now CT reviewed abd still distended Objective Last 24 Hour Vital Signs Date Time Temp Pulse Resp B/P (MAP) Pulse Ox O2 Delivery O2 Flow Rate FiO2 01/30/20 16:07 66 01/30/20 16:00 30 01/30/20 16:00 97.9 64 20 103/50 (67) 100 01/30/20 15:26 64 22 30 01/30/20 13:00 63 20 104/49 (67) 100 01/30/20 12:33 74 24 30 01/30/20 12:33 100 01/30/20 12:00 67 01/30/20 12:00 Mechanical Ventilator 01/30/20 12:00 98.9 70 20 103/48 (66) 100 01/30/20 12:00 30 01/30/20 11:00 76 20 96/46 (63) 100 01/30/20 10:00 89 20 101/49 (66) 99 01/30/20 09:34 99.3 01/30/20 09:04 100/45 01/30/20 09:00 87 20 100/48 (65) 98 01/30/20 08:00 Mechanical Ventilator 01/30/20 08:00 68 01/30/20 08:00 89 20 91/45 (60) 97 01/30/20 08:00 30 01/30/20 07:10 76 20 30 01/30/20 07:00 101.7 86 20 92/49 (63) 97 01/30/20 04:00 98.5 90 23 93/61 (72) 96 01/30/20 04:00 Mechanical Ventilator 01/30/20 04:00 30 01/30/20 03:18 80 01/30/20 03:00 94 17 103/66 (78) 100 01/30/20 02:58 82 27 30 01/30/20 02:00 90 20 95/55 (68) 100 01/30/20 01:00 91 20 98/60 (73) 100 01/30/20 00:00 99.6 92 19 101/60 (74) 97 01/30/20 00:00 Mechanical Ventilator 01/29/20 23:20 93 01/29/20 23:00 92 20 98/60 (73) 100 01/29/20 23:00 80 31 30 01/29/20 22:00 94 18 103/77 (86) 100 01/29/20 21:00 94 18 101/73 (82) 100 01/29/20 20:21 85 29 30 01/29/20 20:00 Mechanical Ventilator 01/29/20 20:00 30 01/29/20 20:00 94 18 95/60 (72) 100 01/29/20 19:44 88 01/29/20 19:00 99.8 92 20 87/51 (63) 100 I&O Intake and Output 01/29/20 01/30/20 19:00 07:00 Intake Total 2175.0 ml 1229.163 ml Output Total 800 ml 750 ml Balance 1375.0 ml 479.163 ml IV Total 2175.0 ml 1229.163 ml Stool Total 800 ml 550 ml Gastric Drainage Total 200 ml # Voids 4 4 Cardiovascular: RSR Respiratory: decreased breath sounds Abdomen: soft, distended, tenderness, decreased bowel sounds Extremities: no tenderness, no cyanosis Laboratory Tests Test 01/30/20 04:46 01/30/20 14:00 White Blood Count 22.3 K/UL (4.8-10.8) *H 21.5 K/UL (4.8-10.8) H Red Blood Count 2.76 M/UL (4.20-5.40) L 2.58 M/UL (4.20-5.40) L Hemoglobin 8.4 G/DL (12.0-16.0) L 7.7 G/DL (12.0-16.0) L Hematocrit 25.6 % (37.0-47.0) L 24.3 % (37.0-47.0) L Mean Corpuscular Volume 93 FL (80-99) 94 FL (80-99) Mean Corpuscular Hemoglobin 30.5 PG (27.0-31.0) 30.0 PG (27.0-31.0) Mean Corpuscular Hemoglobin Concent 32.9 G/DL (32.0-36.0) 31.9 G/DL (32.0-36.0) L Red Cell Distribution Width 15.2 % (11.6-14.8) H 15.1 % (11.6-14.8) H Platelet Count 235 K/UL (150-450) 213 K/UL (150-450) Mean Platelet Volume 7.3 FL (6.5-10.1) 7.4 FL (6.5-10.1) Neutrophils (%) (Auto) % (45.0-75.0) % (45.0-75.0) Lymphocytes (%) (Auto) % (20.0-45.0) % (20.0-45.0) Monocytes (%) (Auto) % (1.0-10.0) % (1.0-10.0) Eosinophils (%) (Auto) % (0.0-3.0) % (0.0-3.0) Basophils (%) (Auto) % (0.0-2.0) % (0.0-2.0) Differential Total Cells Counted 100 100 Neutrophils % (Manual) 86 % (45-75) H 84 % (45-75) H Lymphocytes % (Manual) 7 % (20-45) L 10 % (20-45) L Monocytes % (Manual) 7 % (1-10) 5 % (1-10) Eosinophils % (Manual) 0 % (0-3) 0 % (0-3) Basophils % (Manual) 0 % (0-2) 0 % (0-2) Band Neutrophils 0 % (0-8) 1 % (0-8) Platelet Estimate Adequate Adequate Platelet Morphology Normal Normal Hypochromasia 1+ Anisocytosis 1+ 1+ Sodium Level 144 MMOL/L (136-145) Potassium Level 2.6 MMOL/L (3.5-5.1) *L Chloride Level 112 MMOL/L (98-107) H Carbon Dioxide Level 24 MMOL/L (21-32) Anion Gap 8 mmol/L (5-15) Blood Urea Nitrogen 15 mg/dL (7-18) Creatinine 0.4 MG/DL (0.55-1.30) L Estimat Glomerular Filtration Rate > 60 mL/min (>60) Glucose Level 100 MG/DL (74-106) Calcium Level 8.5 MG/DL (8.5-10.1) Phosphorus Level 1.2 MG/DL (2.5-4.9) L Magnesium Level 1.6 MG/DL (1.8-2.4) L Total Bilirubin 0.4 MG/DL (0.2-1.0) Aspartate Amino Transf (AST/SGOT) 14 U/L (15-37) L Alanine Aminotransferase (ALT/SGPT) 18 U/L (12-78) Alkaline Phosphatase 52 U/L (46-116) C-Reactive Protein, Quantitative 15.5 mg/dL (0.00-0.90) H Pro-B-Type Natriuretic Peptide 366 pg/mL (0-125) H Total Protein 5.5 G/DL (6.4-8.2) L Albumin 2.1 G/DL (3.4-5.0) L Globulin 3.4 g/dL Albumin/Globulin Ratio 0.6 (1.0-2.7) L Polychromasia 1+ Plan Problems: (1) Pneumonia (2) Sepsis Assessment & Plan: leukocytosis anemia lactic acidosis agree with GI recommend EGD planned for 12/31 hold feeding for now trend h/h monitor for bleeding no acute hemorrhage will be available in event needs exploration for hemostasis prbc as per heme thank you will follow with recs cont abx worsening wbc wbc trending down comfortable appearing no n/v hypotensive in ICU again worse pending CT results PICC ordered Pt presented on admission in emaciated state. Pt has tracheostomy and GT. NO skin concerns noted to skin under collar of trach. NO erythema or evidence of skin erosion at GT site. Pt noted to have scaly pimple-like rash with webbing noted to R and L axillae, undersides of both breasts, Bilat groin and lower back. Tracking and webbing noted to hands and feet. Pt restless and scratching at skin. Non-Blanching erythema without induration or fluctuance noted to R and L hips and trochanteric areas.Non-blanching erythema noted along spine. Non-Blanching erythema without induration noted to Sacrum. Non-Blanching erythema noted to R and L Malleoli and both heels. Tx.Plan: Please apply Cavilon Skin Barrier to each bony Prominences at risks for Skin Breakdown. Cover each area with Optifoam drsgs. Change every 7 days and prn. Apply Moisture Barrier Paste to Sacrum. Cover with Optifoam drsg. Change every 3 days and prn. Reposition at least every 2hours or as tolerated. Off-load heels with pillow. APM/EMELI Mattress overlay. improving cont current care plan There is marked enlargement of the third and lateral ventricles and extra axial CSF spaces, in particular the former. There is considerable periventricular deep white matter low-attenuation. Otherwise normal mobley-white differentiation. No acute hemorrhage or edema. No mass effect nor midline shift. Visualized orbits and sinuses are unremarkable. The calvarium is intact Impression: Third and lateral ventriculomegaly. Associated enlargement of the extra axial CSF spaces indicates that this is probably due to central volume loss, but the possibility of hydrocephalus should also be considered. At the degree of volume loss is considerably out of proportion to patient's age. Correlate with clinical history Periventricular deep white matter low-attenuation. Probably on the basis of microvascular ischemic change but given patient's age the possibility of demyelinating disease should be considered as well. Negative for acute intracranial bleed or mass effect ABDOMEN: Liver: Unremarkable. Gallbladder and bile ducts: Cholecystectomy. No ductal dilation. Pancreas: Unremarkable. No ductal dilation. Spleen: Unremarkable. No splenomegaly. Adrenals: Unremarkable. No mass. Kidneys and ureters: Unremarkable. No obstructing stones. No hydronephrosis. Stomach and bowel: Operative bowel findings. Diffuse small bowel wall thickening with areas of distention and fluid-filled colonic loops. No clear focal transition point to suggest small bowel obstruction. PELVIS: Appendix: Appendix not identified. Bladder: Urinary bladder wall thickening could be incidental, due to high outlet pressures, or could represent cystitis. No stones. Reproductive: Unremarkable as visualized. ABDOMEN and PELVIS: Intraperitoneal space: Large low-attenuation pelvic fluid of uncertain significance, potentially reactive. No free air. Bones/joints: No acute fracture. No dislocation. Soft tissues: Bilateral buttock injection granulomas. Vasculature: Unremarkable. No abdominal aortic aneurysm. Lymph nodes: Unremarkable. No enlarged lymph nodes. Tubes, lines and devices: Percutaneous gastrostomy tube adequately positioned in the stomach. Rectal tube. Other findings: No perforation seen. IMPRESSION: 1. Study substantially limited due to lack of IV contrast. 2. Findings most compatible with ileus and probable infectious or inflammatory enteritis or enterocolitis. 3. Large low-attenuation pelvic fluid of uncertain significance, potentially reactive. 4. Appendix not identified. 5. Percutaneous gastrostomy tube adequately positioned in the stomach. Rectal tube. 6. Urinary bladder wall thickening could be incidental, due to high outlet pressures, or could represent cystitis. 7. Cholecystectomy. (3) GI bleed (4) G tube feedings Assessment & Plan: DAILY ESTIMATED NEEDS: Needs based on Underweight, critical care 37.3kg 30-40 kcals/kg 6802-7274 total kcals 1.25-2 g protein/kg 47-75 g total protein 25-35 mL/kg 933-1306 total fluid mLs NUTRITION DIAGNOSIS: Increased kcal and pro needs r/t underweight status as evidenced by BMI 14.1, pt is 68% of ideal body weight w/ generalized severe wasting, trach and peg dep. CURRENT TF:Vital AF 1.2 @55 x20 hrs ENTERAL NUTRITION RECOMMENDATIONS: Vital AF 1.2 @ 55ml/hr x20 hrs to provide 1100ml 1320kcal 83g prot, 892ml free water - Rec to continue elemental TF formula while stool C-diff positive, +LBM - HOLD 1HR BEFORE AND AFTER SYNTHROID MEDS - Flush per MD. HOB over 30 degrees ADDITIONAL RECOMMENDATIONS: 1) Per SNF: 5'4" and 81# Maintain calibrated bed scale wts w/ added P200 mattress 2) Lytes daily madhav w/ loose stools, replete as needed 3) Skin integrity: Continue BRIAN VIA GT BID + Vit C 4) Accuchecks for Hypoglycemia 5) Add probiotics for stool C-diff+ . George Woods Jan 30, 2020 18:15
[2020-01-30] MEDS: OXcarbazepine 150mg tab GT SCH (20:35)
--- NOTE | 2020-01-30 21:37 | General Progress Note ---
Assessment/Plan Status: stable, other - Patient is now hypotensive before over 46 she will receive 500 cc of normal saline bolus to be repeated blood pressure remained below 90 further management will be decided following the boluses treatment repeat laboratory tests will be done in kori BISHOP MD Status Narrative Patient is now out of the ICU her blood pressure is maintained without the problem She really responded well to volume replacement and able to maintain now blood pressure 117/63 Heart rate pulse rate between 55-9 during the time of the visit Repeat laboratory tests will be done in kori BISHOP MD Assessment/Plan: Glenny Harrison Subjective Constitutional: Reports: no symptoms HEENT: Reports: no symptoms Cardiovascular: Reports: no symptoms, other - Borderline bradycardia Respiratory: Reports: no symptoms Gastrointestinal/Abdominal: Reports: no symptoms Genitourinary: Reports: no symptoms Neurologic/Psychiatric: Reports: no symptoms Hematologic/Lymphatic: Reports: no symptoms Allergies: Coded Allergies: CARBAMAZEPINE (Verified Allergy, Unknown, 12/31/19) LORAZEPAM (Verified Allergy, Unknown, 12/31/19) Objective Last 24 Hour Vital Signs Date Time Temp Pulse Resp B/P (MAP) Pulse Ox O2 Delivery O2 Flow Rate FiO2 01/30/20 19:06 62 23 30 01/30/20 16:07 66 01/30/20 16:00 30 01/30/20 16:00 97.9 64 20 103/50 (67) 100 01/30/20 15:26 64 22 30 01/30/20 13:00 63 20 104/49 (67) 100 01/30/20 12:33 74 24 30 01/30/20 12:33 100 01/30/20 12:00 67 01/30/20 12:00 Mechanical Ventilator 01/30/20 12:00 98.9 70 20 103/48 (66) 100 01/30/20 12:00 30 01/30/20 11:00 76 20 96/46 (63) 100 01/30/20 10:00 89 20 101/49 (66) 99 01/30/20 09:34 99.3 01/30/20 09:04 100/45 01/30/20 09:00 87 20 100/48 (65) 98 01/30/20 08:00 Mechanical Ventilator 01/30/20 08:00 68 01/30/20 08:00 89 20 91/45 (60) 97 01/30/20 08:00 30 01/30/20 07:10 76 20 30 01/30/20 07:00 101.7 86 20 92/49 (63) 97 01/30/20 04:00 98.5 90 23 93/61 (72) 96 01/30/20 04:00 Mechanical Ventilator 01/30/20 04:00 30 01/30/20 03:18 80 01/30/20 03:00 94 17 103/66 (78) 100 01/30/20 02:58 82 27 30 01/30/20 02:00 90 20 95/55 (68) 100 01/30/20 01:00 91 20 98/60 (73) 100 01/30/20 00:00 99.6 92 19 101/60 (74) 97 01/30/20 00:00 Mechanical Ventilator 01/29/20 23:20 93 01/29/20 23:00 92 20 98/60 (73) 100 01/29/20 23:00 80 31 30 01/29/20 22:00 94 18 103/77 (86) 100 Intake and Output 01/29/20 01/30/20 19:00 07:00 Intake Total 2175.0 ml 1229.163 ml Output Total 800 ml 750 ml Balance 1375.0 ml 479.163 ml IV Total 2175.0 ml 1229.163 ml Stool Total 800 ml 550 ml Gastric Drainage Total 200 ml # Voids 4 4 Laboratory Tests 01/30/20 04:46: White Blood Count 22.3*H, Red Blood Count 2.76L, Hemoglobin 8.4L, Hematocrit 25.6L, Mean Corpuscular Volume 93, Mean Corpuscular Hemoglobin 30.5, Mean Corpuscular Hemoglobin Concent 32.9, Red Cell Distribution Width 15.2H, Platelet Count 235, Mean Platelet Volume 7.3, Neutrophils (%) (Auto) , Lymphocytes (%) (Auto) , Monocytes (%) (Auto) , Eosinophils (%) (Auto) , Basophils (%) (Auto) , Differential Total Cells Counted 100, Neutrophils % ( Manual) 86H, Lymphocytes % (Manual) 7L, Monocytes % (Manual) 7, Eosinophils % ( Manual) 0, Basophils % (Manual) 0, Band Neutrophils 0, Platelet Estimate Adequate, Platelet Morphology Normal, Hypochromasia 1+, Anisocytosis 1+, Sodium Level 144, Potassium Level 2.6*L, Chloride Level 112H, Carbon Dioxide Level 24, Anion Gap 8, Blood Urea Nitrogen 15, Creatinine 0.4L, Estimat Glomerular Filtration Rate > 60, Glucose Level 100, Calcium Level 8.5, Phosphorus Level 1.2L, Magnesium Level 1.6L, Total Bilirubin 0.4, Aspartate Amino Transf (AST/ SGOT) 14L, Alanine Aminotransferase (ALT/SGPT) 18, Alkaline Phosphatase 52, C- Reactive Protein, Quantitative 15.5H, Pro-B-Type Natriuretic Peptide 366H, Total Protein 5.5L, Albumin 2.1L, Globulin 3.4, Albumin/Globulin Ratio 0.6L 01/30/20 14:00: White Blood Count 21.5H, Red Blood Count 2.58L, Hemoglobin 7.7L, Hematocrit 24.3L, Mean Corpuscular Volume 94, Mean Corpuscular Hemoglobin 30.0, Mean Corpuscular Hemoglobin Concent 31.9L, Red Cell Distribution Width 15.1H, Platelet Count 213, Mean Platelet Volume 7.4, Neutrophils (%) (Auto) , Lymphocytes (%) (Auto) , Monocytes (%) (Auto) , Eosinophils (%) (Auto) , Basophils (%) (Auto) , Differential Total Cells Counted 100, Neutrophils % ( Manual) 84H, Lymphocytes % (Manual) 10L, Monocytes % (Manual) 5, Eosinophils % ( Manual) 0, Basophils % (Manual) 0, Band Neutrophils 1, Platelet Estimate Adequate, Platelet Morphology Normal, Anisocytosis 1+, Polychromasia 1+ 01/30/20 18:17: POC Whole Blood Glucose [Pending] Height (Feet): 5 Height (Inches): 1.00 Weight (Pounds): 71 General Appearance: no apparent distress, alert, lethargic, cachetic EENT: normal ENT inspection Neck: supple Cardiovascular: normal rate, regular rhythm, no gallop/murmur, no JVD Respiratory/Chest: lungs clear, normal breath sounds, no respiratory distress Abdomen: normal bowel sounds, non tender, soft, no organomegaly, no mass Extremities: non-tender Neurologic: alert, aphasia Skin: warm/dry Glenny Bishop MD Jan 30, 2020 21:37
[2020-01-31] VITALS: BP 102/54
[2020-01-31 04:00] VITALS: BP 116/57
[2020-01-31] MEDS: D5 1/2NS 1,000 ML IV SCH ×2 (04:55→14:51)
[2020-01-31] MEDS: Pantoprazole 80 MG in NS 250 ML IV SCH (05:20)
[2020-01-31 05:41] LABS: HEMATOCRIT 22.7 % (37.0-47.0); HEMOGLOBIN 7.4 G/DL (12.0-16.0); MEAN CORPUSCULAR VOLUME 93 FL (80-99); PLATELET COUNT 238 K/UL (150-450); RED BLOOD COUNT 2.45 M/UL (4.20-5.40); RED CELL DISTRIBUTION WIDTH 15.2 % (11.6-14.8); WHITE BLOOD COUNT 16.3 K/UL (4.8-10.8)
[2020-01-31 05:59] LABS: ANION GAP 8 mmol/L (5-15); BLOOD UREA NITROGEN 9 mg/dL (7-18); CALCIUM 7.4 MG/DL (8.5-10.1); CARBON DIOXIDE 23 MMOL/L (21-32); CHLORIDE 112 MMOL/L (98-107); CREATININE 0.3 MG/DL (0.55-1.30); POTASSIUM 3.2 MMOL/L (3.5-5.1); SODIUM 143 MMOL/L (136-145)
--- NOTE | 2020-01-31 07:12 | Hematology/Onc Progress Note ---
Assessment/Plan Assessment/Plan # Anemia rule out underlying gi bleed --> Dr. Carrillo has been consulted-->endosco gastric ulceration --> trend hgb 7-->7.4-->7.9-->8.1->9.6-->8.5->9.1-->10-->11-->10.3-->10.4-->11->9.8-->7.4 --> anemia panel ordered-->reviewed --> prn transfusion --> protonix started # Leukocytosis is likely related to pna on imaging --> abx has been started --> if wbc worsens, consider abx vanc/zosyn--> ceftriaxone-->vanc->fluc/flagyl/vanc-->flagyl/fidoxomicin->vanc/cefepime/flagyl --> smear is noted --> wbc 25-->15-->14-->16->7.6-->12-->20->13->11->14-->33-->16 --> pressors prn # Thrombocytopenia med related v labs error --> plt trend 167-->61-->227->373 --> meds have been reviewed --> no hep or lovenox # Sepsis --> on abx for pna --> pressors as needed --> fluids as per pcp for hypotension # Pneumonia --> pulm, Dr. 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 urban design consultant care, will follow Subjective Allergies: Coded Allergies: CARBAMAZEPINE (Verified Allergy, Unknown, 12/31/19) LORAZEPAM (Verified Allergy, Unknown, 12/31/19) Subjective 01/01 altered, trach, no bleedin wbc improved on abx, seen by gi 01/02 egd study noted, also with plts 61k, have vitaly Armendariz Rn, will recheck cbc 01/03 remains agitated, vitaly rn, no bleeding, cbc noted as well as id recs 01/04 on vent, with melena overnight, no bleeding, dw rn, labs reviewed 01/06 on vent, remains agitated, no bleeding, vitaly rn, smear is noted 01/07 on vent, restless, asymptomatic, noncooperative 01/[address] John obtained, reviewed, meds adjusted, eeg pending 01/09 labs noted, no bleeding, ativan has been discontinued, meds reviewed 01/10 trach to vent, agitated, with wrist restraints, no major changes, no blee ding 01/11 labs are reviewed, on trach to vent, no bleeding, agitated overnight, no complaints 01/13 labs noted, no bleeding, is on vent/trach, no bleeding, vitaly rn, labs are noted 01/14 labs are noted, no bleeding, remains on v/t, remains agitated, no bleeding 01/15 is c.diff positive, wbc higher at 21k, labs noted, on abx, reviewed gi, id recs 01/16 remains on vent, wbc is improved, in sr, as abx per id 01/17 recieved dopamine, tube feeds, on soft restraints, no bleeding, vitaly rn 01/18 labs are noted, no bleeding, vitaly rn, no major changes 01/20 on dopamine gtt, with restraints, no major changes, labs noted 01/21 labs reviewed, no bleeding, vitaly rn, no major changes 01/22 transferred to icu for higher loc, dopamine on hold as bp is good, have increased Synthroid 01/23 labs are pending, meds noted, no bleeding, dopamine gtt ongoing, cbc noted 01/24 still nv, no bleeding, labs reviewed, vitaly rn, with rectal tube in place, on dopamine gtt 01/25 is on bipap, nv, no bleeding, remains on low dose pressorm hgb 11 01/27 on dopamine, hr was elevated overnight, cards aware 01/28 on vent, with ivfs running, rectal tube with red blood noted, consider gi eval 01/29 on vent, labs reviewed, wbc 22, hgb 8.4, on abx currently, vanc/flagyl/cefepime Objective Objective Current Medications Medications (Trade) Dose Ordered Sig/Villa Route PRN Reason Start Time Stop Time Status Last Admin Dose Admin Acetaminophen (Tylenol) 650 mg Q6H PRN GT Temp >100.5 01/28/20 09:30 01/31/20 09:29 01/30/20 09:04 Ascorbic Acid (Vitamin C) 500 mg DAILY GT 01/28/20 09:30 02/27/20 09:29 01/30/20 09:02 Cefepime HCl 1 gm/ Dextrose 55 ml @ 110 mls/hr EVERY 12 HOURS IVPB 01/28/20 10:15 02/04/20 10:14 01/30/20 20:37 Dextrose/Sodium Chloride 1,000 ml @ 100 mls/hr Q10H IV 01/29/20 13:00 02/27/20 12:59 01/31/20 04:55 Famotidine (Pepcid I.v.) 20 mg Q12HR IVP 01/29/20 21:00 02/28/20 20:59 01/30/20 20:36 Fidaxomicin (Dificid) 200 mg EVERY 12 HOURS ORAL 01/28/20 21:00 02/04/20 20:59 01/30/20 20:48 Gabapentin (Neurontin) 900 mg TID GT 01/28/20 09:30 02/19/20 09:29 01/30/20 17:55 Haloperidol Lactate (Haldol) 5 mg Q6H PRN IM Agitation 01/28/20 09:30 02/15/20 09:29 Levetiracetam (Keppra) 1,500 mg Q12HR GT 01/28/20 09:30 02/07/20 09:29 01/30/20 20:35 Levothyroxine Sodium (Synthroid) 50 mcg ACBREAKFAST GT 01/29/20 06:30 02/10/20 06:29 01/31/20 06:01 Metronidazole 100 ml @ 100 mls/hr Q8HR IVPB 01/28/20 22:00 02/04/20 21:59 01/31/20 05:19 Midodrine (Pro-Amatine) 10 mg TID GT 01/28/20 18:00 04/21/20 09:29 01/30/20 17:56 Multivitamins (Multivitamins W/ Minerals 15ml Liquid) 15 ml DAILY GT 01/28/20 09:30 02/27/20 09:29 01/30/20 09:01 Oxcarbazepine (TrileptaL) 300 mg BEDTIME GT 01/28/20 21:00 02/07/20 20:59 01/30/20 20:35 Pantoprazole 80 mg/Sodium Chloride 250 ml @ 25 mls/hr Q10H IV 01/30/20 10:00 02/29/20 09:59 01/31/20 05:20 Sucralfate (Carafate) 1 gm FOUR TIMES A DAY ORAL 01/30/20 09:00 04/29/20 08:59 01/30/20 20:35 Thiamine HCl (Vitamin B1) 100 mg DAILY GT 01/28/20 09:30 02/27/20 09:29 01/30/20 09:02 Last 24 Hour Vital Signs Date Time Temp Pulse Resp B/P (MAP) Pulse Ox O2 Delivery O2 Flow Rate FiO2 01/31/20 04:00 30 01/31/20 04:00 97.7 77 25 116/57 (76) 100 01/31/20 03:38 81 01/31/20 02:35 77 25 30 01/31/20 00:00 Mechanical Ventilator 01/31/20 00:00 97.9 64 24 102/54 (70) 100 01/31/20 00:00 30 01/30/20 23:35 68 01/30/20 22:49 66 21 30 01/30/20 20:00 97.5 74 26 107/55 (72) 100 01/30/20 20:00 30 01/30/20 20:00 Mechanical Ventilator 01/30/20 19:31 70 01/30/20 19:06 62 23 30 01/30/20 16:07 66 01/30/20 16:00 30 01/30/20 16:00 97.9 64 20 103/50 (67) 100 01/30/20 16:00 Mechanical Ventilator 01/30/20 15:26 64 22 30 01/30/20 13:00 63 20 104/49 (67) 100 01/30/20 12:33 74 24 30 01/30/20 12:33 100 01/30/20 12:00 67 01/30/20 12:00 Mechanical Ventilator 01/30/20 12:00 98.9 70 20 103/48 (66) 100 01/30/20 12:00 30 01/30/20 11:00 76 20 96/46 (63) 100 01/30/20 10:00 89 20 101/49 (66) 99 9/15/20 09:34 99.3 01/30/20 09:04 100/45 01/30/20 09:00 87 20 100/48 (65) 98 01/30/20 08:00 Mechanical Ventilator 01/30/20 08:00 68 01/30/20 08:00 89 20 91/45 (60) 97 01/30/20 08:00 30 01/30/20 07:10 76 20 30 01/30/20 07:00 101.7 86 20 92/49 (63) 97 01/30/20 04:00 98.5 90 23 93/61 (72) 96 01/30/20 04:00 Mechanical Ventilator 01/30/20 04:00 30 01/30/20 03:18 80 01/30/20 03:00 94 17 103/66 (78) 100 01/30/20 02:58 82 27 30 01/30/20 02:00 90 20 95/55 (68) 100 01/30/20 01:00 91 20 98/60 (73) 100 01/30/20 00:00 99.6 92 19 101/60 (74) 97 01/30/20 00:00 Mechanical Ventilator 01/29/20 23:20 93 01/29/20 23:00 92 20 98/60 (73) 100 01/29/20 23:00 80 31 30 01/29/20 22:00 94 18 103/77 (86) 100 01/29/20 21:00 94 18 101/73 (82) 100 01/29/20 20:21 85 29 30 01/29/20 20:00 Mechanical Ventilator 01/29/20 20:00 30 01/29/20 20:00 94 18 95/60 (72) 100 01/29/20 19:44 88 01/29/20 19:00 99.8 92 20 87/51 (63) 100 01/29/20 18:00 94 18 92/73 (79) 100 01/29/20 17:00 91 18 95/65 (75) 100 01/29/20 16:00 99.8 92 20 102/72 (82) 100 01/29/20 16:00 30 01/29/20 16:00 95 01/29/20 15:15 93 29 30 01/29/20 15:00 90 18 108/82 (91) 100 01/29/20 14:00 90 18 108/82 (91) 100 01/29/20 13:00 90 18 108/82 (91) 100 01/29/20 12:00 95 01/29/20 12:00 100.1 95 19 96/78 (84) 100 01/29/20 12:00 30 01/29/20 11:15 90 20 30 01/29/20 11:00 90 18 108/82 (91) 100 01/29/20 10:00 94 18 103/69 (80) 100 01/29/20 09:30 105/69 01/29/20 09:00 94 19 100/69 (79) 100 01/29/20 08:50 99 01/29/20 08:00 99.6 92 20 102/72 (82) 100 01/29/20 08:00 30 01/29/20 08:00 98 Intake and Output 01/30/20 01/31/20 19:00 07:00 Intake Total 1485 ml Output Total 150 ml 760 ml Balance -150 ml 725 ml IV Total 1385 ml Other 100 ml Stool Total 150 ml 450 ml Other 310 ml # Voids 2 Labs Test 01/28/20 09:48 01/28/20 11:10 01/28/20 12:24 01/28/20 17:24 Arterial Blood pH 7.485 (7.350-7.450) Arterial Blood Partial Pressure CO2 32.9 mmHg (35.0-45.0) Arterial Blood Partial Pressure O2 87.1 mmHg (75.0-100.0) Arterial Blood HCO3 24.2 mmol/L (22.0-26.0) Arterial Blood Oxygen Saturation 96.3 % (95-100) Arterial Blood Base Excess 1.4 (-2-2) Tacos Test Positive White Blood Count 43.3 K/UL (4.8-10.8) Red Blood Count 4.70 M/UL (4.20-5.40) Hemoglobin 13.8 G/DL (12.0-16.0) Hematocrit 43.9 % (37.0-47.0) Mean Corpuscular Volume 93 FL (80-99) Mean Corpuscular Hemoglobin 29.3 PG (27.0-31.0) Mean Corpuscular Hemoglobin Concent 31.4 G/DL (32.0-36.0) Red Cell Distribution Width 15.6 % (11.6-14.8) Platelet Count 393 K/UL (150-450) Mean Platelet Volume 6.6 FL (6.5-10.1) Neutrophils (%) (Auto) % (45.0-75.0) Lymphocytes (%) (Auto) % (20.0-45.0) Monocytes (%) (Auto) % (1.0-10.0) Eosinophils (%) (Auto) % (0.0-3.0) Basophils (%) (Auto) % (0.0-2.0) Differential Total Cells Counted 100 Neutrophils % (Manual) 82 % (45-75) Lymphocytes % (Manual) 6 % (20-45) Monocytes % (Manual) 12 % (1-10) Eosinophils % (Manual) 0 % (0-3) Basophils % (Manual) 0 % (0-2) Band Neutrophils 0 % (0-8) Platelet Estimate Adequate Platelet Morphology Normal Red Blood Cell Morphology Normal Lactic Acid Level 2.30 mmol/L (0.4-2.0) 3.00 mmol/L (0.66-2.22) Test 01/28/20 18:15 01/29/20 06:32 01/29/20 06:37 01/30/20 04:46 White Blood Count 39.4 K/UL (4.8-10.8) 33.3 K/UL (4.8-10.8) 22.3 K/UL (4.8-10.8) Red Blood Count 3.65 M/UL (4.20-5.40) 3.37 M/UL (4.20-5.40) 2.76 M/UL (4.20-5.40) Hemoglobin 11.1 G/DL (12.0-16.0) 9.8 G/DL (12.0-16.0) 8.4 G/DL (12.0-16.0) Hematocrit 35.5 % (37.0-47.0) 31.8 % (37.0-47.0) 25.6 % (37.0-47.0) Mean Corpuscular Volume 97 FL (80-99) 95 FL (80-99) 93 FL (80-99) Mean Corpuscular Hemoglobin 30.4 PG (27.0-31.0) 29.2 PG (27.0-31.0) 30.5 PG (27.0-31.0) Mean Corpuscular Hemoglobin Concent 31.2 G/DL (32.0-36.0) 30.8 G/DL (32.0-36.0) 32.9 G/DL (32.0-36.0) Red Cell Distribution Width 16.7 % (11.6-14.8) 15.2 % (11.6-14.8) 15.2 % (11.6-14.8) Platelet Count 287 K/UL (150-450) 242 K/UL (150-450) 235 K/UL (150-450) Mean Platelet Volume 7.3 FL (6.5-10.1) 7.1 FL (6.5-10.1) 7.3 FL (6.5-10.1) Neutrophils (%) (Auto) % (45.0-75.0) % (45.0-75.0) % (45.0-75.0) Lymphocytes (%) (Auto) % (20.0-45.0) % (20.0-45.0) % (20.0-45.0) Monocytes (%) (Auto) % (1.0-10.0) % (1.0-10.0) % (1.0-10.0) Eosinophils (%) (Auto) % (0.0-3.0) % (0.0-3.0) % (0.0-3.0) Basophils (%) (Auto) % (0.0-2.0) % (0.0-2.0) % (0.0-2.0) Differential Total Cells Counted 100 100 100 Neutrophils % (Manual) 88 % (45-75) 87 % (45-75) 86 % (45-75) Lymphocytes % (Manual) 7 % (20-45) 9 % (20-45) 7 % (20-45) Monocytes % (Manual) 4 % (1-10) 4 % (1-10) 7 % (1-10) Eosinophils % (Manual) 0 % (0-3) 0 % (0-3) 0 % (0-3) Basophils % (Manual) 1 % (0-2) 0 % (0-2) 0 % (0-2) Band Neutrophils 0 % (0-8) 0 % (0-8) 0 % (0-8) Platelet Estimate Adequate Adequate Adequate Platelet Morphology Normal Normal Normal Hypochromasia 1+ 2+ 1+ Anisocytosis 1+ 1+ 1+ Ferritin 354 NG/ML (8-388) Sodium Level 149 MMOL/L (136-145) 144 MMOL/L (136-145) Potassium Level 2.9 MMOL/L (3.5-5.1) 2.6 MMOL/L (3.5-5.1) Chloride Level 115 MMOL/L (98-107) 112 MMOL/L (98-107) Carbon Dioxide Level 25 MMOL/L (21-32) 24 MMOL/L (21-32) Anion Gap 9 mmol/L (5-15) 8 mmol/L (5-15) Blood Urea Nitrogen 32 mg/dL (7-18) 15 mg/dL (7-18) Creatinine 0.6 MG/DL (0.55-1.30) 0.4 MG/DL (0.55-1.30) Estimat Glomerular Filtration Rate > 60 mL/min (>60) > 60 mL/min (>60) Glucose Level 122 MG/DL (74-106) 100 MG/DL (74-106) Lactic Acid Level 1.60 mmol/L (0.4-2.0) Uric Acid 4.5 MG/DL (2.6-7.2) Calcium Level 8.1 MG/DL (8.5-10.1) 8.5 MG/DL (8.5-10.1) Phosphorus Level 2.0 MG/DL (2.5-4.9) 1.2 MG/DL (2.5-4.9) Magnesium Level 1.7 MG/DL (1.8-2.4) 1.6 MG/DL (1.8-2.4) Total Bilirubin 0.4 MG/DL (0.2-1.0) 0.4 MG/DL (0.2-1.0) Gamma Glutamyl Transpeptidase 62 U/L (5-85) Aspartate Amino Transf (AST/SGOT) 18 U/L (15-37) 14 U/L (15-37) Alanine Aminotransferase (ALT/SGPT) 24 U/L (12-78) 18 U/L (12-78) Alkaline Phosphatase 54 U/L (46-116) 52 U/L (46-116) C-Reactive Protein, Quantitative 11.9 mg/dL (0.00-0.90) 15.5 mg/dL (0.00-0.90) Pro-B-Type Natriuretic Peptide 306 pg/mL (0-125) 366 pg/mL (0-125) Total Protein 6.0 G/DL (6.4-8.2) 5.5 G/DL (6.4-8.2) Albumin 2.4 G/DL (3.4-5.0) 2.1 G/DL (3.4-5.0) Globulin 3.6 g/dL 3.4 g/dL Albumin/Globulin Ratio 0.7 (1.0-2.7) 0.6 (1.0-2.7) Test 01/30/20 12:29 01/30/20 14:00 01/30/20 18:17 01/31/20 04:15 White Blood Count 21.5 K/UL (4.8-10.8) 16.3 K/UL (4.8-10.8) Red Blood Count 2.58 M/UL (4.20-5.40) 2.45 M/UL (4.20-5.40) Hemoglobin 7.7 G/DL (12.0-16.0) 7.4 G/DL (12.0-16.0) Hematocrit 24.3 % (37.0-47.0) 22.7 % (37.0-47.0) Mean Corpuscular Volume 94 FL (80-99) 93 FL (80-99) Mean Corpuscular Hemoglobin 30.0 PG (27.0-31.0) 30.2 PG (27.0-31.0) Mean Corpuscular Hemoglobin Concent 31.9 G/DL (32.0-36.0) 32.5 G/DL (32.0-36.0) Red Cell Distribution Width 15.1 % (11.6-14.8) 15.2 % (11.6-14.8) Platelet Count 213 K/UL (150-450) 238 K/UL (150-450) Mean Platelet Volume 7.4 FL (6.5-10.1) 7.6 FL (6.5-10.1) Neutrophils (%) (Auto) % (45.0-75.0) % (45.0-75.0) Lymphocytes (%) (Auto) % (20.0-45.0) % (20.0-45.0) Monocytes (%) (Auto) % (1.0-10.0) % (1.0-10.0) Eosinophils (%) (Auto) % (0.0-3.0) % (0.0-3.0) Basophils (%) (Auto) % (0.0-2.0) % (0.0-2.0) Differential Total Cells Counted 100 Neutrophils % (Manual) 84 % (45-75) Lymphocytes % (Manual) 10 % (20-45) Monocytes % (Manual) 5 % (1-10) Eosinophils % (Manual) 0 % (0-3) Basophils % (Manual) 0 % (0-2) Band Neutrophils 1 % (0-8) Platelet Estimate Adequate Platelet Morphology Normal Polychromasia 1+ Anisocytosis 1+ Sodium Level 143 MMOL/L (136-145) Potassium Level 3.2 MMOL/L (3.5-5.1) Chloride Level 112 MMOL/L (98-107) Carbon Dioxide Level 23 MMOL/L (21-32) Anion Gap 8 mmol/L (5-15) Blood Urea Nitrogen 9 mg/dL (7-18) Creatinine 0.3 MG/DL (0.55-1.30) Estimat Glomerular Filtration Rate > 60 mL/min (>60) Glucose Level 97 MG/DL (74-106) Calcium Level 7.4 MG/DL (8.5-10.1) Height (Feet): 5 Height (Inches): 1.00 Weight (Pounds): 81 Objective Vital Signs General Appearance: ++ cachectic, chronically ill HEENT: normocephalic, atraumatic ++ trach Resp: other -. vent ++ Cardiovascular: regular rate, rhythm, no edema Gastrointestinal: gtube in place, without erythema Rectal: other - Hemoccult positive [place]: back normal, gait/station normal, non-tender Lymphatic: no adenopathy Kleynberg,Baltazar L. MD Jan 31, 2020 07:12
[2020-01-31 08:00] VITALS: BP 99/49
[2020-01-31 08:00] LABS: PHOSPHORUS 1.3 MG/DL (2.5-4.9)
--- NOTE | 2020-01-31 08:06 | Pre-Procedure Note/Attestation ---
Pre-Procedure Note/Attestation Complete Prior to Procedure Planned Procedure: not applicable Procedure Narrative: egd Indications for Procedure Pre-Operative Diagnosis: GIB Attestation I attest that I discussed the nature of the procedure; its benefits; risks and complications; and alternatives (and the risks and benefits of such alternatives), prior to the procedure, with the patient (or the patient's legal patient access representative). I attest that, if there was a reasonable possibility of needing a blood transfusion, the patient (or the patient's legal patient access representative) was given the [facility] standardized written summary, pursuant to the [place] G[place] Blood Safety Act ([place] Health and Safety Code # 1645, as amended). I attest that I re-evaluated the patient just prior to the surgery and that there has been no change in the patient's H&P, except as documented below: Satish Carrillo MD Jan 31, 2020 08:06
--- NOTE | 2020-01-31 08:19 | Anethesia Preoperative Eval ---
Anesthesia Pre-op PMH/ROS General Date of Evaluation: Jan 31, 2020 Time of Evaluation: 08:25 Anesthesiologist: ashu ASA Score: ASA 4 Mallampati Score Class I : Soft palate, uvula, fauces, pillars visible Class II: Soft palate, uvula, fauces visible Class III: Soft palate, base of uvula visible Class IV: Only hard plate visible Mallampati Classification: Class III Surgeon: silver Diagnosis: Anemia Surgical Procedure: EGD/Colonoscopy Anesthesia History: none Family History: no anesthesia problems Allergies: Coded Allergies: CARBAMAZEPINE (Verified Allergy, Unknown, 12/31/19) LORAZEPAM (Verified Allergy, Unknown, 12/31/19) Patient NPO?: Yes NPO Date: Jan 31, 2020 NPO Time: 00:01 Past Medical History Cardiovascular: Reports: [place]; Denies: HTN, CAD, valve dz, arrhythmia, other Pulmonary: Reports: other - Resp failure; trach; Pneumonia; Denies: asthma, COPD, ROSIO Gastrointestinal/Genitourinary: Reports: GERD, CRI, other - Dysphagia; GTube feeding Neurologic/Psychiatric: Reports: dementia, depression/anxiety, other - vegetative state; seizure dz; ; Denies: CVA, TIA Endocrine: Denies: DM, hypothyroidism, steroids, other HEENT: Denies: cataract (L), cataract (R), glaucoma, FLANDREAU (L), FLANDREAU (R), other Hematology/Immune: Reports: anemia Musculoskeletal/Integumentary: Denies: OA, RA, DJD, DDD, edema, other Other: other - GI Bleed PSxH Narrative: EGD Anesthesia Pre-op Phys. Exam Physician Exam Last Vital Signs Date Time Temp Pulse Resp B/P (MAP) Pulse Ox O2 Delivery O2 Flow Rate FiO2 01/31/20 04:00 30 01/31/20 04:00 97.7 77 25 116/57 (76) 100 01/31/20 00:00 Mechanical Ventilator Constitutional: other - anemia; gi bleed; malnutrition Neurologic: other - vegetative state Cardiovascular: RRR Respiratory: CTA Gastrointestinal: S/NT/ND Airway Exam Mallampati Classification 3 Mallampati Score: Class II MO: limited ROM: limited Dentures: no upper, no lower Anesthesia Pre-op A/P Labs Hematology Test 01/30/20 14:00 01/31/20 04:15 White Blood Count 21.5 K/UL (4.8-10.8) H 16.3 K/UL (4.8-10.8) H Red Blood Count 2.58 M/UL (4.20-5.40) L 2.45 M/UL (4.20-5.40) L Hemoglobin 7.7 G/DL (12.0-16.0) L 7.4 G/DL (12.0-16.0) L Hematocrit 24.3 % (37.0-47.0) L 22.7 % (37.0-47.0) L Mean Corpuscular Volume 94 FL (80-99) 93 FL (80-99) Mean Corpuscular Hemoglobin 30.0 PG (27.0-31.0) 30.2 PG (27.0-31.0) Mean Corpuscular Hemoglobin Concent 31.9 G/DL (32.0-36.0) L 32.5 G/DL (32.0-36.0) Red Cell Distribution Width 15.1 % (11.6-14.8) H 15.2 % (11.6-14.8) H Platelet Count 213 K/UL (150-450) 238 K/UL (150-450) Mean Platelet Volume 7.4 FL (6.5-10.1) 7.6 FL (6.5-10.1) Neutrophils (%) (Auto) % (45.0-75.0) % (45.0-75.0) Lymphocytes (%) (Auto) % (20.0-45.0) % (20.0-45.0) Monocytes (%) (Auto) % (1.0-10.0) % (1.0-10.0) Eosinophils (%) (Auto) % (0.0-3.0) % (0.0-3.0) Basophils (%) (Auto) % (0.0-2.0) % (0.0-2.0) Differential Total Cells Counted 100 Neutrophils % (Manual) 84 % (45-75) H Pending Lymphocytes % (Manual) 10 % (20-45) L Pending Monocytes % (Manual) 5 % (1-10) Eosinophils % (Manual) 0 % (0-3) Basophils % (Manual) 0 % (0-2) Band Neutrophils 1 % (0-8) Platelet Estimate Adequate Pending Platelet Morphology Normal Pending Polychromasia 1+ Anisocytosis 1+ Chemistry Test 01/30/20 12:29 01/30/20 18:17 01/31/20 04:15 POC Whole Blood Glucose Pending Pending Sodium Level 143 MMOL/L (136-145) Potassium Level 3.2 MMOL/L (3.5-5.1) L Chloride Level 112 MMOL/L (98-107) H Carbon Dioxide Level 23 MMOL/L (21-32) Anion Gap 8 mmol/L (5-15) Blood Urea Nitrogen 9 mg/dL (7-18) Creatinine 0.3 MG/DL (0.55-1.30) L Estimat Glomerular Filtration Rate > 60 mL/min (>60) Glucose Level 97 MG/DL (74-106) Calcium Level 7.4 MG/DL (8.5-10.1) L Phosphorus Level Pending Magnesium Level Pending Studies Pre-op Studies: EKG - SR Risk Assessment & Plan Plan: mac Status Change Before Surgery: No Pre-Antibiotics Drug: none Sandra Johnson INDUCTION MACHINE OPERATOR Jan 31, 2020 08:18
[2020-01-31] MEDS ORDERED: NS 500ML IVPB ONE (08:20)
--- NOTE | 2020-01-31 08:36 | Endoscopy Procedure Note ---
Endoscopy Procedure Note General Indication for Procedure: gib Procedures Performed: EGD Operative Findings/Diagnosis: gu Specimen: none Pt Tolerated Procedure Well: Yes Estimated Blood Loss: none Anesthesia Anesthesiologist: dinesh Anesthesia: MAC Inserted Devices Implant(s) used?: No GI Core Measures 50 yrs or older w/o bx or poly: Not Applicable 10yrs. F/U recommended: Not Applicable Satish Carrillo MD Jan 31, 2020 08:36
--- NOTE | 2020-01-31 08:43 | Immediate Post-Op Evaluation ---
Immediate Post-Op Evalulation Immediate Post-Op Evalulation Procedure: egd Date of Evaluation: Jan 31, 2020 Time of Evaluation: 08:42 IV Fluids: 100 Blood Pressure Systolic: 89 Blood Pressure Diastolic: 60 Pulse Rate: 70 Respiratory Rate: 12 O2 Sat by Pulse Oximetry: 100 Temperature (Fahrenheit): 99.0 Nausea: No Vomiting: No Patient Status: ventilated - Mech ventilated with 7.0 Shiley; 100%l AC 30% Rate 12 450 5 Hydration Status: adequate Drug: none Sandra Johnson CRNA Jan 31, 2020 08:43
--- NOTE | 2020-01-31 08:48 | 48 Hour Post Anesthesia Eval ---
Post Anesthesia Evaluation Procedure: egd Date of Evaluation: Jan 31, 2020 Time of Evaluation: 08:48 Blood Pressure Systolic: 100 0: 60 Pulse Rate: 64 Respiratory Rate: 12 O2 Sat by Pulse Oximetry: 98 Airway: other - mech ventilated Nausea: No Vomiting: No Hydration Status: adequate Cardiopulmonary Status: stable at this time Mental Status/LOC: patient returned to baseline Post-Anesthesia Complications: none Follow-up care needed: N/A Sandra Johnson CRNA Jan 31, 2020 08:48
[2020-01-31] MEDS: Thiamine 100mg tab GT SCH (09:00)
[2020-01-31] MEDS: Gabapentin 300 MG/6 ML Soln GT SCH ×3 (09:00→17:26)
[2020-01-31] MEDS: Multivitamins W/Minerals 15 ML UDC GT SCH (09:00)
[2020-01-31] MEDS ORDERED: Sucralfate 1gm tab ORAL SCH (09:00)
[2020-01-31] MEDS: Cefepime HCl 1 GM in D5W 55 ML IVPB SCH (09:01)
[2020-01-31] MEDS: levETIRAcetam 500mg/5ml Liquid GT SCH ×2 (09:01→21:08)
[2020-01-31] MEDS: Sucralfate 1gm tab ORAL SCH ×4 (09:02→21:08)
[2020-01-31] MEDS: Ascorbic Acid 500mg tab GT SCH (09:02)
--- NOTE | 2020-01-31 09:14 | Procedure Note ---
DATE OF PROCEDURE: 01/31/2020 SURGEON: Satish Carrillo MD. PROCEDURE: Upper endoscopy. ANESTHESIA: Per INSTRUCTIONAL PARAPROFESSIONAL, Sandra Tarrillion. INSTRUMENT: Olympus adult flexible upper endoscope. INDICATION: GI bleeding. REASON FOR PROCEDURE: The procedure, risks, benefits, and possible consequences, including hemorrhage, aspiration, perforation and infection, and alternative treatments, were explained to the patient/legal guardian by Dr. Satish Carrillo and the patient/legal guardian understood and accepted these risks. DESCRIPTION OF PROCEDURE: After informed consent was obtained and the patient was adequately sedated, Olympus upper endoscope was advanced from mouth into the second portion of the duodenum and retroflexion was performed in the stomach. The patient had evidence of gastric ulcer the G-tube site. No evidence of any visible vessel. No adherent clot. No active bleed upper GI bleeding at this time. At this time, the upper endoscope was retrieved and the procedure was terminated. SUMMARY OF FINDINGS: Gastric ulceration without any visible vessel or adherent clot. RECOMMENDATIONS: 1. Change Protonix drip to q.12. 2. Add Carafate. 3. Resume tube feeding. 4. Monitor hemoglobin and hematocrit. 5. Transfuse one unit of blood today. Satish Carrillo M.D. DR: Jeanna JOB#: [id number] CC:
[2020-01-31] MEDS: Acetaminophen 650mg/20.3ml GT PRN (09:26)
[2020-01-31] MEDS: Pantoprazole Inj IVP SCH ×2 (09:27→21:08)
--- NOTE | 2020-01-31 11:32 | Pulmonology Progress Note ---
Ivanna Mora MAP COMPILER 01/31/20 1132: Subjective ROS Limited/Unobtainable: Yes Allergies: Coded Allergies: CARBAMAZEPINE (Verified Allergy, Unknown, 12/31/19) LORAZEPAM (Verified Allergy, Unknown, 12/31/19) All Systems: reviewed and negative except above Subjective transferred back to [facility] no signs of resp distress on current settings BP better 'no fevers since 01/29 leuk trending down s/p EGD earlier this am 01/30- gastric ulceration without signs of visible bleeding Hgb down to 7.4, Objective Last 24 Hour Vital Signs Date Time Temp Pulse Resp B/P (MAP) Pulse Ox O2 Delivery O2 Flow Rate FiO2 01/31/20 08:48 64 12 98 01/31/20 08:43 70 12 100 01/31/20 08:00 99.0 65 18 99/49 (66) 100 01/31/20 08:00 64 01/31/20 08:00 30 01/31/20 04:00 30 01/31/20 04:00 97.7 77 25 116/57 (76) 100 01/31/20 03:38 81 01/31/20 02:35 77 25 30 01/31/20 00:00 Mechanical Ventilator 01/31/20 00:00 97.9 64 24 102/54 (70) 100 01/31/20 00:00 30 01/30/20 23:35 68 01/30/20 22:49 66 21 30 01/30/20 20:00 97.5 74 26 107/55 (72) 100 01/30/20 20:00 30 01/30/20 20:00 Mechanical Ventilator 01/30/20 19:31 70 01/30/20 19:06 62 23 30 01/30/20 16:07 66 01/30/20 16:00 30 01/30/20 16:00 97.9 64 20 103/50 (67) 100 01/30/20 16:00 Mechanical Ventilator 01/30/20 15:26 64 22 30 01/30/20 13:00 63 20 104/49 (67) 100 01/30/20 12:33 74 24 30 01/30/20 12:33 100 01/30/20 12:00 67 01/30/20 12:00 Mechanical Ventilator 01/30/20 12:00 98.9 70 20 103/48 (66) 100 01/30/20 12:00 30 Intake and Output 01/30/20 01/31/20 19:00 07:00 Intake Total 1485 ml Output Total 150 ml 760 ml Balance -150 ml 725 ml IV Total 1385 ml Other 100 ml Stool Total 150 ml 450 ml Other 310 ml # Voids 2 Objective General Appearance: bedridden, pale, chronically ill looking, older than her biological age ; vent dependent female ; on vent SIMV 450-30%-12, PEEP 5 Lines, tubes and drains: trach HEENT: normocephalic, atraumatic Neck: trach - Portex #7, secretions small amount, yellow color, thin consistency Respiratory/Chest: CTAB Cardiovascular/Chest: regular rate, regular rhythm Abdomen: non tender, soft, G tube , rectal tube Genitourinary/Rectal: [place] Extremities: no edema, muscle atrophy Neurologic: abnormal gait, poorly responsive, more awake , eyes open Musculoskeletal: atrophy BLE Skin: multiple tattoos Microbiology Date/Time Source Procedure Growth Status 01/28/20 11:25 Blood Blood Culture - Preliminary NO GROWTH AFTER 48 HOURS Resulted Laboratory Tests 01/30/20 12:29: POC Whole Blood Glucose [Pending] 01/30/20 14:00: White Blood Count 21.5H, Red Blood Count 2.58L, Hemoglobin 7.7L, Hematocrit 24.3L, Mean Corpuscular Volume 94, Mean Corpuscular Hemoglobin 30.0, Mean Corpu scular Hemoglobin Concent 31.9L, Red Cell Distribution Width 15.1H, Platelet Count 213, Mean Platelet Volume 7.4, Neutrophils (%) (Auto) , Lymphocytes (%) (Auto) , Monocytes (%) (Auto) , Eosinophils (%) (Auto) , Basophils (%) (Auto) , Differential Total Cells Counted 100, Neutrophils % (Manual) 84H, Lymphocytes % (Manual) 10L, Monocytes % (Manual) 5, Eosinophils % (Manual) 0, Basophils % (Manual) 0, Band Neutrophils 1, Platelet Estimate Adequate, Platelet Morphology Normal, Polychromasia 1+, Anisocytosis 1+ 01/30/20 18:17: POC Whole Blood Glucose [Pending] 01/31/20 04:15: White Blood Count 16.3H, Red Blood Count 2.45L, Hemoglobin 7.4L, Hematocrit 22.7L, Mean Corpuscular Volume 93, Mean Corpuscular Hemoglobin 30.2, Mean Corpuscular Hemoglobin Concent 32.5, Red Cell Distribution Width 15.2H, Platelet Count 238, Mean Platelet Volume 7.6, Neutrophils (%) (Auto) , Lymphocytes (%) (Auto) , Monocytes (%) (Auto) , Eosinophils (%) (Auto) , Basophils (%) (Auto) , Differential Total Cells Counted 100, Neutrophils % (Manual) 85H, Lymphocytes % (Manual) 11L, Monocytes % (Manual) 4, Eosinophils % (Manual) 0, Basophils % (Manual) 0, Band Neutrophils 0, Platelet Estimate Adequate, Platelet Morphology Normal, Anisocytosis 1+, Hypochromasia 3+, Spherocytes 1+, Sodium Level 143, Potassium Level 3.2L, Chloride Level 112H, Carbon Dioxide Level 23, Anion Gap 8, Blood Urea Nitrogen 9, Creatinine 0.3L, Estimat Glomerular Filtration Rate > 60, Glucose Level 97, Calcium Level 7.4L, Phosphorus Level 1.3L, Magnesium Level 1.7L Current Medications Medications (Trade) Dose Ordered Sig/Villa Route PRN Reason Start Time Stop Time Status Last Admin Dose Admin Ascorbic Acid (Vitamin C) 500 mg DAILY GT 01/28/20 09:30 02/27/20 09:29 01/31/20 09:02 Cefepime HCl 1 gm/ Dextrose 55 ml @ 110 mls/hr EVERY 12 HOURS IVPB 01/28/20 10:15 02/04/20 10:14 01/31/20 09:01 Dextrose/Sodium Chloride 1,000 ml @ 100 mls/hr Q10H IV 01/29/20 13:00 02/27/20 12:59 01/31/20 04:55 Famotidine (Pepcid I.v.) 20 mg Q12HR IVP 01/29/20 21:00 02/28/20 20:59 01/31/20 09:01 Fidaxomicin (Dificid) 200 mg EVERY 12 HOURS ORAL 01/28/20 21:00 02/04/20 20:59 01/31/20 09:26 Gabapentin (Neurontin) 900 mg TID GT 01/28/20 09:30 02/19/20 09:29 01/31/20 09:00 Haloperidol Lactate (Haldol) 5 mg Q6H PRN IM Agitation 01/28/20 09:30 02/15/20 09:29 Levetiracetam (Keppra) 1,500 mg Q12HR GT 01/28/20 09:30 02/07/20 09:29 01/31/20 09:01 Levothyroxine Sodium (Synthroid) 50 mcg ACBREAKFAST GT 01/29/20 06:30 02/10/20 06:29 01/31/20 06:01 Metronidazole 100 ml @ 100 mls/hr Q8HR IVPB 01/28/20 22:00 02/04/20 21:59 01/31/20 05:19 Midodrine (Pro-Amatine) 10 mg TID GT 01/28/20 18:00 04/21/20 09:29 01/31/20 09:00 Multivitamins (Multivitamins W/ Minerals 15ml Liquid) 15 ml DAILY GT 01/28/20 09:30 02/27/20 09:29 01/31/20 09:00 Oxcarbazepine (TrileptaL) 300 mg BEDTIME GT 01/28/20 21:00 02/07/20 20:59 01/30/20 20:35 Pantoprazole (Protonix) 40 mg EVERY 12 HOURS IVP 01/31/20 09:30 03/01/20 09:29 01/31/20 09:27 Sucralfate (Carafate) 1 gm FOUR TIMES A DAY ORAL 01/30/20 09:00 04/29/20 08:59 01/31/20 09:02 Sucralfate (Carafate) 1 gm FOUR TIMES A DAY ORAL 01/31/20 09:00 04/30/20 08:59 01/31/20 09:02 Thiamine HCl (Vitamin B1) 100 mg DAILY GT 01/28/20 09:30 02/27/20 09:29 01/31/20 09:00 Assessment/Plan Assessment/Plan ASSESSMENT VDRF/trach status Sepsis Possible pneumonia UTI recurrent GI bleeding C dif colitis Anemia secondary to GI bleeding Aspiration risk Dysphagia, feeding by G-tube Encephalopathy Acute kidney injury likely secondary to dehydration Recurrent bradycardia persistent Hypotension Electrolyte imbalance Severe protein calorie malnutrition Hx of hypertension History of CVA Seizure disorder with witnessed seizure episode 01/07 Psychiatric disorder Presumed scabies, s/p Rx Thrombocytopenia-transient- resolved PLAN OF CARE [facility] off Dopamine gtt, BP better on IVF, vent support, pulm toilet ABG stable on current settings on SIMV mode 450-30-12 PEEP5 , no signs of resp distress on these settings keep settings as is and titrate as needed now tachypneic intermittently CXR 01/27 no acute disease pulm toilet via N CT chest 01/28 - with tree-in-bud nodular opacities in the medial left base and lingula with left bronchial bubbly material suggesting infectious or inflammatory bronchiolitis, likely due to aspiration. Small amount of similar foci seen in the right posterior lower lobe. Mild bronchiectasis and reticulation in the lingula, medial left base, and superior left upper lobe could also be due to chronic infection. leuk trending down, still significant , no fevers pancx-per ID CXR 01/13- no acute findings KUB 01/13- no acute findings UA + yeast , 01/12 UCX +yeast, started on Fluconazole 01/14 as per ID -completed BCX 01/12 NGTD BCX 01/26 and 01/27 NGTD SCX 01/27 + KPCR abx as per ID recs Vanco po was prior dc and switched to Dificid , also on Flagyl per GI -till 01/28 , both extended till 02/03 inflammatory markers : ESR-42, CRP- wnl WBC smear NGT CT C/ A/P noted ( see results of CT chest above), CT A/P with findings most compatible with ileus and probable infectious or inflammatory enteritis or enterocolitis. now on empiric cefepime and Vanco ( in addition to Flagyl and Dificid) rapid COVID 19 NGT in ED aspiration precautions Venous Duplex BLE -negative, get SCD ( unable to give a/c given anemia) closely monitor hemodynamic status s/p EGD 01/30 -> gastric ulceration without visible bleeding Protonix IV bid , Carafate GT feeding resumed as per GI transfuse 1 u PRBC 01/30 stool OB positive , another pending transfuse to keep Hgb > 7. Hg trendgin down EGD planned as per GI heme and GI follows s/p prior EGD 01/01 -> gastric ulcer across G tube site , no active bleeding HH at baseline trend LFT-> trended down, hep panel NGT hx of cirrhosis- per GI management monitor renal parameters, lytes, avoid nephrotoxic IVF BUN trending down, creat stable, likely prerenal due to dehydration replace e/lytes as per nephro recs , K and Mg replaced this am as per nephro monitor volumes seizure precautions, antiepileptic optimized as per neuro recs ammonia 49, fup with further neuro recs EEG - grossly abnormal; mild to mod encephalopathy, single ictal episode CT head no acute IC pathology BP management with current regimen SNF meds supportive care dietary recs s/p 12/31 Rx for presumed scabies with permethrin and Ivermectin, repeated Ivermectin 01/08 case discussed and evaluated by supervising physician Jeyson Anderson MD 01/31/20 2126: Subjective Allergies: Coded Allergies: CARBAMAZEPINE (Verified Allergy, Unknown, 12/31/19) LORAZEPAM (Verified Allergy, Unknown, 12/31/19) Assessment/Plan Assessment/Plan Patient seen and examined with MAP COMPILER and I agree with the above formulated assessment and plan. Ivanna Mora NP Jan 31, 2020 11:32 Jeyson Anderson MD Jan 31, 2020 21:26
[2020-01-31 12:00] VITALS: BP 106/52
--- NOTE | 2020-01-31 13:00 | Infectious Diseases Prog Note ---
Assessment/Plan 39yo F with: Severe Sepsis Fever, recurrent; improving Leukocytosis; recurrent; increased- now improving UTI -01/28 CXR: Subtle reticular nodular opacities in the left apex which may be related to scarring versus acute small airway disease/bronchitis CT c/abd/p wo: Study substantially limited due to lack of IV contrast. Findings most compatible with ileus and probable infectious or inflammatory enteritis or enterocolitis. Large low-attenuation pelvic fluid of uncertain significance, potentially reactive.Appendix not identified. Percutaneous gastrostomy tube adequately positioned in the stomach. Rectal tube. Urinary bladder wall thickening could be incidental, due to high outlet pressures, or could represent cystitis.Cholecystectomy. -01/27 u/a no pyuria, nit +, leuk +3; ucx >100k CRE (S Gentamycin) CXR: no acute disease Bc xNTD -01/26 Bcx NTD -01/13 CXR: no acute disease -01/12 u/a wbc tnct, nit neg, latrell +3; ucx >100k C. tropicalis Bcx NTD Severe Cdiff colitis -Cdif toxin + 01/27 KUB:Severely dilated small bowel loop in the central abdomen could reflect obstruction. Diffusely fluid distended colon. -01/13 KUB: no acute findings Recurrent GIB 01/06 u/aneg 12/30 BCx 1/2 +CONS, likely contaminant 12/30 UA neg, COVID rapid Ag neg 12/30 CXR 1. Density overlying the bilateral lung apices. May represent pleural thickening, multifocal airspace opacities, versus summation artifact. 01/01 BCx Neg 01/02 BCx Neg Acute blood loss anemia Possible pna on CXR, sp rx Seizure episode -01/10 CT head: Third and lateral ventriculomegaly. Associated enlargement of the extra axial CSF spaces indicates that this is probably due to central volume loss, but the possibility of hydrocephalus should also be considered. At the degree of volume loss is considerably out of proportion to patient's age. Periventricular deep white matter low-attenuation. Probably on the basis of microvascular ischemic change but given patient's age the possibility of demyelinating disease should be considered as well. 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 [facility] will continue to follow. Subjective Allergies: Coded Allergies: CARBAMAZEPINE (Verified Allergy, Unknown, 12/31/19) LORAZEPAM (Verified Allergy, Unknown, 12/31/19) afebrile >24hrs wbc improving Bcx NTD ucx grew CRE stool output increased Objective Last 24 Hour Vital Signs Date Time Temp Pulse Resp B/P (MAP) Pulse Ox O2 Delivery O2 Flow Rate FiO2 01/31/20 12:00 97.7 70 25 106/52 (70) 100 01/31/20 11:05 75 24 30 01/31/20 09:00 100 01/31/20 08:48 64 12 98 01/31/20 08:43 70 12 100 01/31/20 08:00 99.0 65 18 99/49 (66) 100 01/31/20 08:00 64 01/31/20 08:00 30 01/31/20 07:10 73 19 30 01/31/20 04:00 30 01/31/20 04:00 97.7 77 25 116/57 (76) 100 01/31/20 03:38 81 01/31/20 02:35 77 25 30 01/31/20 00:00 Mechanical Ventilator 01/31/20 00:00 97.9 64 24 102/54 (70) 100 01/31/20 00:00 30 01/30/20 23:35 68 01/30/20 22:49 66 21 30 01/30/20 20:00 97.5 74 26 107/55 (72) 100 01/30/20 20:00 30 01/30/20 20:00 Mechanical Ventilator 01/30/20 19:31 70 01/30/20 19:06 62 23 30 01/30/20 16:07 66 01/30/20 16:00 30 01/30/20 16:00 97.9 64 20 103/50 (67) 100 01/30/20 16:00 Mechanical Ventilator 01/30/20 15:26 64 22 30 01/30/20 13:00 63 20 104/49 (67) 100 Height (Feet): 5 Height (Inches): 1.00 Weight (Pounds): 81 General Appearance: no apparent distress Neck: supple Cardiovascular: normal rate Respiratory/Chest: decreased breath sounds Abdomen: hypoactive bowel sounds Extremities: non-tender Laboratory Tests Test 01/30/20 14:00 01/30/20 18:17 01/31/20 04:15 01/31/20 11:39 White Blood Count 21.5 K/UL (4.8-10.8) H 16.3 K/UL (4.8-10.8) H Red Blood Count 2.58 M/UL (4.20-5.40) L 2.45 M/UL (4.20-5.40) L Hemoglobin 7.7 G/DL (12.0-16.0) L 7.4 G/DL (12.0-16.0) L Hematocrit 24.3 % (37.0-47.0) L 22.7 % (37.0-47.0) L Mean Corpuscular Volume 94 FL (80-99) 93 FL (80-99) Mean Corpuscular Hemoglobin 30.0 PG (27.0-31.0) 30.2 PG (27.0-31.0) Mean Corpuscular Hemoglobin Concent 31.9 G/DL (32.0-36.0) L 32.5 G/DL (32.0-36.0) Red Cell Distribution Width 15.1 % (11.6-14.8) H 15.2 % (11.6-14.8) H Platelet Count 213 K/UL (150-450) 238 K/UL (150-450) Mean Platelet Volume 7.4 FL (6.5-10.1) 7.6 FL (6.5-10.1) Neutrophils (%) (Auto) % (45.0-75.0) % (45.0-75.0) Lymphocytes (%) (Auto) % (20.0-45.0) % (20.0-45.0) Monocytes (%) (Auto) % (1.0-10.0) % (1.0-10.0) Eosinophils (%) (Auto) % (0.0-3.0) % (0.0-3.0) Basophils (%) (Auto) % (0.0-2.0) % (0.0-2.0) Differential Total Cells Counted 100 100 Neutrophils % (Manual) 84 % (45-75) H 85 % (45-75) H Lymphocytes % (Manual) 10 % (20-45) L 11 % (20-45) L Monocytes % (Manual) 5 % (1-10) 4 % (1-10) Eosinophils % (Manual) 0 % (0-3) 0 % (0-3) Basophils % (Manual) 0 % (0-2) 0 % (0-2) Band Neutrophils 1 % (0-8) 0 % (0-8) Platelet Estimate Adequate Adequate Platelet Morphology Normal Normal Polychromasia 1+ Anisocytosis 1+ 1+ POC Whole Blood Glucose Pending 92 MG/DL (74-106) Hypochromasia 3+ Spherocytes 1+ Sodium Level 143 MMOL/L (136-145) Potassium Level 3.2 MMOL/L (3.5-5.1) L Chloride Level 112 MMOL/L (98-107) H Carbon Dioxide Level 23 MMOL/L (21-32) Anion Gap 8 mmol/L (5-15) Blood Urea Nitrogen 9 mg/dL (7-18) Creatinine 0.3 MG/DL (0.55-1.30) L Estimat Glomerular Filtration Rate > 60 mL/min (>60) Glucose Level 97 MG/DL (74-106) Calcium Level 7.4 MG/DL (8.5-10.1) L Phosphorus Level 1.3 MG/DL (2.5-4.9) L Magnesium Level 1.7 MG/DL (1.8-2.4) L Current Medications Medications (Trade) Dose Ordered Sig/Villa Route PRN Reason Start Time Stop Time Status Last Admin Dose Admin Ascorbic Acid (Vitamin C) 500 mg DAILY GT 01/28/20 09:30 02/27/20 09:29 01/31/20 09:02 Cefepime HCl 1 gm/ Dextrose 55 ml @ 110 mls/hr EVERY 12 HOURS IVPB 01/28/20 10:15 02/04/20 10:14 01/31/20 09:01 Dextrose/Sodium Chloride 1,000 ml @ 100 mls/hr Q10H IV 01/29/20 13:00 02/27/20 12:59 01/31/20 04:55 Famotidine (Pepcid I.v.) 20 mg Q12HR IVP 01/29/20 21:00 02/28/20 20:59 01/31/20 09:01 Fidaxomicin (Dificid) 200 mg EVERY 12 HOURS ORAL 01/28/20 21:00 02/04/20 20:59 01/31/20 09:26 Gabapentin (Neurontin) 900 mg TID GT 01/28/20 09:30 02/19/20 09:29 01/31/20 09:00 Haloperidol Lactate (Haldol) 5 mg Q6H PRN IM Agitation 01/28/20 09:30 02/15/20 09:29 Levetiracetam (Keppra) 1,500 mg Q12HR GT 01/28/20 09:30 02/07/20 09:29 01/31/20 09:01 Levothyroxine Sodium (Synthroid) 50 mcg ACBREAKFAST GT 01/29/20 06:30 02/10/20 06:29 01/31/20 06:01 Metronidazole 100 ml @ 100 mls/hr Q8HR IVPB 01/28/20 22:00 02/04/20 21:59 01/31/20 05:19 Midodrine (Pro-Amatine) 10 mg TID GT 01/28/20 18:00 04/21/20 09:29 01/31/20 09:00 Multivitamins (Multivitamins W/ Minerals 15ml Liquid) 15 ml DAILY GT 01/28/20 09:30 02/27/20 09:29 01/31/20 09:00 Oxcarbazepine (TrileptaL) 300 mg BEDTIME GT 01/28/20 21:00 02/07/20 20:59 01/30/20 20:35 Pantoprazole (Protonix) 40 mg EVERY 12 HOURS IVP 01/31/20 09:30 03/01/20 09:29 01/31/20 09:27 Sucralfate (Carafate) 1 gm FOUR TIMES A DAY ORAL 01/30/20 09:00 04/29/20 08:59 01/31/20 09:02 Sucralfate (Carafate) 1 gm FOUR TIMES A DAY ORAL 01/31/20 09:00 04/30/20 08:59 01/31/20 09:02 Thiamine HCl (Vitamin B1) 100 mg DAILY GT 01/28/20 09:30 02/27/20 09:29 01/31/20 09:00 Char Morel M.D. Jan 31, 2020 13:00
--- NOTE | 2020-01-31 14:13 | Nephrology Progress Note ---
Assessment/Plan Problem List: (1) RICHARD (acute kidney injury) (2) Dehydration (3) Anemia (4) GI bleed (5) Malnutrition (6) Seizure disorder (7) Electrolyte imbalance Assessment Renal failure, in the form of prerenal azotemia, most likely secondary to GI bleed GI bleed, leading to severe anemia Sepsis, pneumonia Chronic tracheostomy, ventilator dependent History of CVA History of seizure disorder History of psychiatric disorder Severe malnutrition Electrolyte abnormalities Plan January 30: Labs reviewed. Low mag low phosphorus and low potassium replaced. White blood cells 16,000 today. Remains full code. Continue to monitor hemoglobin and hematocrit and electrolytes. January 29: Labs reviewed. Magnesium, potassium, phosphorus supplement given. White blood cells down to 22,000. Remains full code. Continue per consultants. RN reports rectal bleed. Hemoglobin drifting down. Defer management to block breaker operator who is already on the case. January 28: Status quo. Electrolyte abnormalities noted. Mag Phos and potassium supplement IV given. Renal parameters stable. Continue per consultants. Leukocytosis persists. January 27: Significant rise in white blood cell counts. Hypotensive. Now in ICU. Will give albumin bolus. Continue to monitor renal parameters. Continue per ID advice. January 26: Continue to monitor renal parameters. Patient remains on ventilator. Patient is full code. Continue per consultants. January 25: Status quo. Labs reviewed. Continue per consultants. January 24: Status unchanged. Labs reviewed. Remains stable from renal standpoint of view. January 23: Back in [facility]. Stable from renal standpoint of view. Continue per consultants. January 22: Patient in ICU now. Vital signs and heart rate and blood pressure appears to be stable. Patient had an episode of bradycardia but it was resolved. TSH level today is very low will cut down on Synthroid dose. January 21: Today's labs are reviewed. Stable renal parameters. Continue per consultants. January 20: Labs reviewed. Renal parameters stable. January 19: Labs reviewed. Stable from renal standpoint. January 18: No labs done today. Continue per consultants. Medications reviewed. January 17: Late note entry due to system problem at the [facility] [place] today.Chemistry panel reviewed. Stable from renal standpoint of view. Continue per current management. January 16: No can panel today. Check lab tomorrow. Remains stable from renal standpoint of view. January 15: Lab reviewed. Renal parameters stable. January 14: Lab reviewed. Renal parameters stable. January 13: Labs reviewed. Stable from renal standpoint of view. January 12: Labs reviewed. Stable from renal standpoint of view January 11: No labs drawn today stable from renal standpoint of view January 10: Labs reviewed. Potassium supplement given. Continue per consultants. January 09: Lab reviewed. Potassium supplement given. IV fluid discontinued. January 08: Lab reviewed. Renal parameters stable. Continue per consultants. January 07: Lab reviewed. Renal parameters stable. Continue per consultants. January 06: Lab reviewed. Stable from renal standpoint of view. January 05: Labs reviewed. Stable from renal standpoint of view. Continue per consultants. January 04: No labs drawn today. Will check labs tomorrow. Continue per consultants. January 03: Lab reviewed. Renal parameters stable. IV fluid discontinued. High LFTs declining. Continue same. January 02: Lab reviewed. Renal parameters stable. Continue per PMD and consultants. LFTs remain elevated. Continue to monitor. Continue slow hydration Discontinue blood pressure medications as her blood pressure is low Discontinue diuretics Monitor renal parameters Transfusion as needed GI evaluation Correct electrolyte abnormalities Check B12 level, folate, and thyroid function tests: Results noted Subjective ROS Limited/Unobtainable: Yes Objective Objective Last 24 Hour Vital Signs Date Time Temp Pulse Resp B/P (MAP) Pulse Ox O2 Delivery O2 Flow Rate FiO2 01/31/20 12:00 70 01/31/20 12:00 30 01/31/20 12:00 97.7 70 25 106/52 (70) 100 01/31/20 11:05 75 24 30 01/31/20 09:56 98.6 01/31/20 09:00 100 01/31/20 08:48 64 12 98 01/31/20 08:43 70 12 100 01/31/20 08:00 99.0 65 18 99/49 (66) 100 01/31/20 08:00 64 01/31/20 08:00 30 01/31/20 07:10 73 19 30 01/31/20 04:00 30 01/31/20 04:00 97.7 77 25 116/57 (76) 100 01/31/20 03:38 81 01/31/20 02:35 77 25 30 01/31/20 00:00 Mechanical Ventilator 01/31/20 00:00 97.9 64 24 102/54 (70) 100 01/31/20 00:00 30 01/30/20 23:35 68 01/30/20 22:49 66 21 30 01/30/20 20:00 97.5 74 26 107/55 (72) 100 01/30/20 20:00 30 01/30/20 20:00 Mechanical Ventilator 01/30/20 19:31 70 01/30/20 19:06 62 23 30 01/30/20 16:07 66 01/30/20 16:00 30 01/30/20 16:00 97.9 64 20 103/50 (67) 100 01/30/20 16:00 Mechanical Ventilator 01/30/20 15:26 64 22 30 Intake and Output 01/30/20 01/31/20 19:00 07:00 Intake Total 1485 ml Output Total 150 ml 760 ml Balance -150 ml 725 ml IV Total 1385 ml Other 100 ml Stool Total 150 ml 450 ml Other 310 ml # Voids 2 Laboratory Tests 01/30/20 18:17: POC Whole Blood Glucose [Pending] 01/31/20 04:15: White Blood Count 16.3H, Red Blood Count 2.45L, Hemoglobin 7.4L, Hematocrit 22.7L, Mean Corpuscular Volume 93, Mean Corpuscular Hemoglobin 30.2, Mean Corpuscular Hemoglobin Concent 32.5, Red Cell Distribution Width 15.2H, Platelet Count 238, Mean Platelet Volume 7.6, Neutrophils (%) (Auto) , Lymphocytes (%) (Auto) , Monocytes (%) (Auto) , Eosinophils (%) (Auto) , Basophils (%) (Auto) , Differential Total Cells Counted 100, Neutrophils % (Manual) 85H, Lymphocytes % (Manual) 11L, Monocytes % (Manual) 4, Eosinophils % (Manual) 0, Basophils % (Manual) 0, Band Neutrophils 0, Platelet Estimate Adequate, Platelet Morphology Normal, Hypochromasia 3+, Anisocytosis 1+, Spherocytes 1+, Sodium Level 143, Potassium Level 3.2L, Chloride Level 112H, Carbon Dioxide Level 23, Anion Gap 8, Blood Urea Nitrogen 9, Creatinine 0.3L, Estimat Glomerular Filtration Rate > 60, Glucose Level 97, Calcium Level 7.4L, Phosphorus Level 1.3L, Magnesium Level 1.7L 01/31/20 11:39: POC Whole Blood Glucose 92 Height (Feet): 5 Height (Inches): 1.00 Weight (Pounds): 81 General Appearance: no apparent distress EENT: other - On mechanical ventilator Cardiovascular: normal rate Respiratory/Chest: decreased breath sounds Abdomen: soft Objective No change Chivo Holloway MD Jan 31, 2020 14:13
--- NOTE | 2020-01-31 14:17 | Surgery Progress Note ---
Surgery Progress Note Subjective Additional Comments labs improving comfortable no acute events micro noted on yousuf bx Objective Last 24 Hour Vital Signs Date Time Temp Pulse Resp B/P (MAP) Pulse Ox O2 Delivery O2 Flow Rate FiO2 01/31/20 12:00 70 01/31/20 12:00 30 01/31/20 12:00 97.7 70 25 106/52 (70) 100 01/31/20 11:05 75 24 30 01/31/20 09:56 98.6 01/31/20 09:00 100 01/31/20 08:48 64 12 98 01/31/20 08:43 70 12 100 01/31/20 08:00 99.0 65 18 99/49 (66) 100 01/31/20 08:00 64 01/31/20 08:00 30 01/31/20 07:10 73 19 30 01/31/20 04:00 30 01/31/20 04:00 97.7 77 25 116/57 (76) 100 01/31/20 03:38 81 01/31/20 02:35 77 25 30 01/31/20 00:00 Mechanical Ventilator 01/31/20 00:00 97.9 64 24 102/54 (70) 100 01/31/20 00:00 30 01/30/20 23:35 68 01/30/20 22:49 66 21 30 01/30/20 20:00 97.5 74 26 107/55 (72) 100 01/30/20 20:00 30 01/30/20 20:00 Mechanical Ventilator 01/30/20 19:31 70 01/30/20 19:06 62 23 30 01/30/20 16:07 66 01/30/20 16:00 30 01/30/20 16:00 97.9 64 20 103/50 (67) 100 01/30/20 16:00 Mechanical Ventilator 01/30/20 15:26 64 22 30 I&O Intake and Output 01/30/20 01/31/20 19:00 07:00 Intake Total 1485 ml Output Total 150 ml 760 ml Balance -150 ml 725 ml IV Total 1385 ml Other 100 ml Stool Total 150 ml 450 ml Other 310 ml # Voids 2 Dressing: other Wound: other Cardiovascular: RSR Respiratory: decreased breath sounds Abdomen: soft, non-tender, present bowel sounds Extremities: no edema, no tenderness, no cyanosis Laboratory Tests Test 01/30/20 18:17 01/31/20 04:15 01/31/20 11:39 POC Whole Blood Glucose Pending 92 MG/DL (74-106) White Blood Count 16.3 K/UL (4.8-10.8) H Red Blood Count 2.45 M/UL (4.20-5.40) L Hemoglobin 7.4 G/DL (12.0-16.0) L Hematocrit 22.7 % (37.0-47.0) L Mean Corpuscular Volume 93 FL (80-99) Mean Corpuscular Hemoglobin 30.2 PG (27.0-31.0) Mean Corpuscular Hemoglobin Concent 32.5 G/DL (32.0-36.0) Red Cell Distribution Width 15.2 % (11.6-14.8) H Platelet Count 238 K/UL (150-450) Mean Platelet Volume 7.6 FL (6.5-10.1) Neutrophils (%) (Auto) % (45.0-75.0) Lymphocytes (%) (Auto) % (20.0-45.0) Monocytes (%) (Auto) % (1.0-10.0) Eosinophils (%) (Auto) % (0.0-3.0) Basophils (%) (Auto) % (0.0-2.0) Differential Total Cells Counted 100 Neutrophils % (Manual) 85 % (45-75) H Lymphocytes % (Manual) 11 % (20-45) L Monocytes % (Manual) 4 % (1-10) Eosinophils % (Manual) 0 % (0-3) Basophils % (Manual) 0 % (0-2) Band Neutrophils 0 % (0-8) Platelet Estimate Adequate Platelet Morphology Normal Hypochromasia 3+ Anisocytosis 1+ Spherocytes 1+ Sodium Level 143 MMOL/L (136-145) Potassium Level 3.2 MMOL/L (3.5-5.1) L Chloride Level 112 MMOL/L (98-107) H Carbon Dioxide Level 23 MMOL/L (21-32) Anion Gap 8 mmol/L (5-15) Blood Urea Nitrogen 9 mg/dL (7-18) Creatinine 0.3 MG/DL (0.55-1.30) L Estimat Glomerular Filtration Rate > 60 mL/min (>60) Glucose Level 97 MG/DL (74-106) Calcium Level 7.4 MG/DL (8.5-10.1) L Phosphorus Level 1.3 MG/DL (2.5-4.9) L Magnesium Level 1.7 MG/DL (1.8-2.4) L Plan Problems: (1) Pneumonia (2) Sepsis Assessment & Plan: leukocytosis anemia lactic acidosis agree with GI recommend EGD planned for 12/31 hold feeding for now trend h/h monitor for bleeding no acute hemorrhage will be available in event needs exploration for hemostasis prbc as per heme thank you will follow with recs cont abx worsening wbc wbc trending down comfortable appearing no n/v hypotensive in ICU again worse pending CT results PICC ordered Pt presented on admission in emaciated state. Pt has tracheostomy and GT. NO skin concerns noted to skin under collar of trach. NO erythema or evidence of skin erosion at GT site. Pt noted to have scaly pimple-like rash with webbing noted to R and L axillae, undersides of both breasts, Bilat groin and lower back. Tracking and webbing noted to hands and feet. Pt restless and scratching at skin. Non-Blanching erythema without induration or fluctuance noted to R and L hips and trochanteric areas.Non-blanching erythema noted along spine. Non-Blanching erythema without induration noted to Sacrum. Non-Blanching erythema noted to R and L Malleoli and both heels. Tx.Plan: Please apply Cavilon Skin Barrier to each bony Prominences at risks for Skin Breakdown. Cover each area with Optifoam drsgs. Change every 7 days and prn. Apply Moisture Barrier Paste to Sacrum. Cover with Optifoam drsg. Change every 3 days and prn. Reposition at least every 2hours or as tolerated. Off-load heels with pillow. APM/EMELI Mattress overlay. improving cont current care plan There is marked enlargement of the third and lateral ventricles and extra axial CSF spaces, in particular the former. There is considerable periventricular deep white matter low-attenuation. Otherwise normal mobley-white differentiation. No acute hemorrhage or edema. No mass effect nor midline shift. Visualized orbits and sinuses are unremarkable. The calvarium is intact Impression: Third and lateral ventriculomegaly. Associated enlargement of the extra axial CSF spaces indicates that this is probably due to central volume loss, but the possibility of hydrocephalus should also be considered. At the degree of volume loss is considerably out of proportion to patient's age. Correlate with clinical history Periventricular deep white matter low-attenuation. Probably on the basis of microvascular ischemic change but given patient's age the possibility of demyelinating disease should be considered as well. Negative for acute intracranial bleed or mass effect ABDOMEN: Liver: Unremarkable. Gallbladder and bile ducts: Cholecystectomy. No ductal dilation. Pancreas: Unremarkable. No ductal dilation. Spleen: Unremarkable. No splenomegaly. Adrenals: Unremarkable. No mass. Kidneys and ureters: Unremarkable. No obstructing stones. No hydronephrosis. Stomach and bowel: Operative bowel findings. Diffuse small bowel wall thickening with areas of distention and fluid-filled colonic loops. No clear focal transition point to suggest small bowel obstruction. PELVIS: Appendix: Appendix not identified. Bladder: Urinary bladder wall thickening could be incidental, due to high outlet pressures, or could represent cystitis. No stones. Reproductive: Unremarkable as visualized. ABDOMEN and PELVIS: Intraperitoneal space: Large low-attenuation pelvic fluid of uncertain significance, potentially reactive. No free air. Bones/joints: No acute fracture. No dislocation. Soft tissues: Bilateral buttock injection granulomas. Vasculature: Unremarkable. No abdominal aortic aneurysm. Lymph nodes: Unremarkable. No enlarged lymph nodes. Tubes, lines and devices: Percutaneous gastrostomy tube adequately positioned in the stomach. Rectal tube. Other findings: No perforation seen. IMPRESSION: 1. Study substantially limited due to lack of IV contrast. 2. Findings most compatible with ileus and probable infectious or inflammatory enteritis or enterocolitis. 3. Large low-attenuation pelvic fluid of uncertain significance, potentially reactive. 4. Appendix not identified. 5. Percutaneous gastrostomy tube adequately positioned in the stomach. Rectal tube. 6. Urinary bladder wall thickening could be incidental, due to high outlet pressures, or could represent cystitis. 7. Cholecystectomy. (3) GI bleed (4) G tube feedings Assessment & Plan: DAILY ESTIMATED NEEDS: Needs based on Underweight, critical care 37.3kg 30-40 kcals/kg 8998-6916 total kcals 1.25-2 g protein/kg 47-75 g total protein 25-35 mL/kg 933-1306 total fluid mLs NUTRITION DIAGNOSIS: Increased kcal and pro needs r/t underweight status as evidenced by BMI 14.1, pt is 68% of ideal body weight w/ generalized severe wasting, trach and peg dep. CURRENT TF:Vital AF 1.2 @55 x20 hrs ENTERAL NUTRITION RECOMMENDATIONS: Vital AF 1.2 @ 55ml/hr x20 hrs to provide 1100ml 1320kcal 83g prot, 892ml free water - Rec to continue elemental TF formula while stool C-diff positive, +LBM - HOLD 1HR BEFORE AND AFTER SYNTHROID MEDS - Flush per MD. HOB over 30 degrees ADDITIONAL RECOMMENDATIONS: 1) Per SNF: 5'4" and 81# Maintain calibrated bed scale wts w/ added P200 mattress 2) Lytes daily madhav w/ loose stools, replete as needed 3) Skin integrity: Continue BRIAN VIA GT BID + Vit C 4) Accuchecks for Hypoglycemia 5) Add probiotics for stool C-diff+ . George Woods Jan 31, 2020 14:17
[2020-01-31 16:00] VITALS: BP 108/55
[2020-01-31] MEDS: Potassium Phosphate 15mm/250ml 250 ML IVPB SCH ×2 (16:24→21:07)
[2020-01-31] MEDS ORDERED: Tubing IV Secondary IV ONE (18:29)
[2020-01-31 20:00] VITALS: BP 107/59
--- NOTE | 2020-01-31 20:35 | General Progress Note ---
Subjective Constitutional: Reports: no symptoms HEENT: Reports: no symptoms Cardiovascular: Reports: no symptoms Respiratory: Reports: no symptoms Gastrointestinal/Abdominal: Reports: no symptoms Genitourinary: Reports: no symptoms Neurologic/Psychiatric: Reports: no symptoms Hematologic/Lymphatic: Reports: no symptoms Allergies: Coded Allergies: CARBAMAZEPINE (Verified Allergy, Unknown, 12/31/19) LORAZEPAM (Verified Allergy, Unknown, 12/31/19) Objective Last 24 Hour Vital Signs Date Time Temp Pulse Resp B/P (MAP) Pulse Ox O2 Delivery O2 Flow Rate FiO2 01/31/20 18:45 113 24 30 01/31/20 16:00 30 01/31/20 16:00 65 01/31/20 16:00 97.9 64 26 108/55 (72) 100 01/31/20 15:00 70 23 30 01/31/20 12:00 70 01/31/20 12:00 30 01/31/20 12:00 97.7 70 25 106/52 (70) 100 01/31/20 11:05 75 24 30 01/31/20 09:56 98.6 01/31/20 09:00 100 01/31/20 08:48 64 12 98 01/31/20 08:43 70 12 100 01/31/20 08:00 99.0 65 18 99/49 (66) 100 01/31/20 08:00 64 01/31/20 08:00 30 01/31/20 07:10 73 19 30 01/31/20 04:00 30 01/31/20 04:00 97.7 77 25 116/57 (76) 100 01/31/20 03:38 81 01/31/20 02:35 77 25 30 01/31/20 00:00 Mechanical Ventilator 01/31/20 00:00 97.9 64 24 102/54 (70) 100 01/31/20 00:00 30 01/30/20 23:35 68 01/30/20 22:49 66 21 30 Intake and Output 01/30/20 01/31/20 19:00 07:00 Intake Total 1485 ml Output Total 150 ml 760 ml Balance -150 ml 725 ml IV Total 1385 ml Other 100 ml Stool Total 150 ml 450 ml Other 310 ml # Voids 2 Laboratory Tests 01/31/20 04:15: White Blood Count 16.3H, Red Blood Count 2.45L, Hemoglobin 7.4L, Hematocrit 22.7L, Mean Corpuscular Volume 93, Mean Corpuscular Hemoglobin 30.2, Mean Corpuscular Hemoglobin Concent 32.5, Red Cell Distribution Width 15.2H, Platelet Count 238, Mean Platelet Volume 7.6, Neutrophils (%) (Auto) , Lymphocytes (%) (Auto) , Monocytes (%) (Auto) , Eosinophils (%) (Auto) , Basophils (%) (Auto) , Differential Total Cells Counted 100, Neutrophils % (Manual) 85H, Lymphocytes % (Manual) 11L, Monocytes % (Manual) 4, Eosinophils % (Manual) 0, Basophils % (Manual) 0, Band Neutrophils 0, Platelet Estimate Adequate, Platelet Morphology Normal, Hypochromasia 3+, Anisocytosis 1+, Spherocytes 1+, Sodium Level 143, Potassium Level 3.2L, Chloride Level 112H, Carbon Dioxide Level 23, Anion Gap 8, Blood Urea Nitrogen 9, Creatinine 0.3L, Estimat Glomerular Filtration Rate > 60, Glucose Level 97, Calcium Level 7.4L, Phosphorus Level 1.3L, Magnesium Level 1.7L 01/31/20 11:39: POC Whole Blood Glucose 92 01/31/20 17:28: POC Whole Blood Glucose [Pending] Height (Feet): 5 Height (Inches): 1.00 Weight (Pounds): 81 General Appearance: no apparent distress EENT: PERRL/EOMI Neck: supple Cardiovascular: normal rate, regular rhythm, no gallop/murmur, no JVD Respiratory/Chest: lungs clear, normal breath sounds, no respiratory distress Abdomen: normal bowel sounds, non tender, soft, no organomegaly, no mass Extremities: non-tender Neurologic: alert, aphasia Assessment/Plan Problem List: (1) Pneumonia ICD Codes: J18.9 - Pneumonia, unspecified organism SNOMED: 019536516 (2) Sepsis ICD Codes: A41.9 - Sepsis, unspecified organism SNOMED: 18265061 (3) GI bleed ICD Codes: K92.2 - Gastrointestinal hemorrhage, unspecified SNOMED: 46373265 (4) Anemia ICD Codes: D64.9 - Anemia, unspecified SNOMED: 404957770 (5) Seizure disorder ICD Codes: G40.909 - Epilepsy, unspecified, not intractable, without status epilepticus SNOMED: 084203633 (6) Malnutrition ICD Codes: E46 - Unspecified protein-calorie malnutrition SNOMED: 78756380 (7) Thrombocytopenia ICD Codes: D69.6 - Thrombocytopenia, unspecified SNOMED: 052902634 Status: stable, other - Patient is now hypotensive before over 46 she will receive 500 cc of normal saline bolus to be repeated blood pressure remained below 90 further management will be decided following the boluses treatment repeat laboratory tests will be done in a.m. GLENNY MCKAY MD Assessment/Plan: Glenny Guadarrama MD Jan 31, 2020 20:35
[2020-01-31] MEDS: OXcarbazepine 150mg tab GT SCH (21:08)
--- NOTE | 2020-01-31 22:14 | Cardiology Progress Note ---
Assessment/Plan Assessment/Plan 1. Septic shock, continue midodrine. 2. Sinus tachycardia, resolved. 3. Anemia of chronic disease 4. Acute renal failure, resolved. 5. GI bleeding due to gastric ulceration. 6. Dysphagia, s/p PEG placement, s/p EGD. 7. VDRF, s/p tracheostomy tube placement. Subjective Subjective Transferred back to [facility]. Sinus rhythm at rate of 65. On the vent with FiO2 of 30%. Objective Last 24 Hour Vital Signs Date Time Temp Pulse Resp B/P (MAP) Pulse Ox O2 Delivery O2 Flow Rate FiO2 01/31/20 18:45 113 24 30 01/31/20 16:00 30 01/31/20 16:00 65 01/31/20 16:00 97.9 64 26 108/55 (72) 100 01/31/20 15:00 70 23 30 01/31/20 12:00 70 01/31/20 12:00 30 01/31/20 12:00 97.7 70 25 106/52 (70) 100 01/31/20 11:05 75 24 30 01/31/20 09:56 98.6 01/31/20 09:00 100 01/31/20 08:48 64 12 98 01/31/20 08:43 70 12 100 01/31/20 08:00 99.0 65 18 99/49 (66) 100 01/31/20 08:00 64 01/31/20 08:00 30 01/31/20 07:10 73 19 30 01/31/20 04:00 30 01/31/20 04:00 97.7 77 25 116/57 (76) 100 01/31/20 03:38 81 01/31/20 02:35 77 25 30 01/31/20 00:00 Mechanical Ventilator 01/31/20 00:00 97.9 64 24 102/54 (70) 100 01/31/20 00:00 30 01/30/20 23:35 68 01/30/20 22:49 66 21 30 Intake and Output 01/30/20 01/31/20 19:00 07:00 Intake Total 1485 ml Output Total 150 ml 760 ml Balance -150 ml 725 ml IV Total 1385 ml Other 100 ml Stool Total 150 ml 450 ml Other 310 ml # Voids 2 2D Echo: LVEF 65%, RVSP 23 mmHg, Grade I LVDD Laboratory Tests Test 01/31/20 04:15 01/31/20 11:39 01/31/20 17:28 White Blood Count 16.3 K/UL (4.8-10.8) H Red Blood Count 2.45 M/UL (4.20-5.40) L Hemoglobin 7.4 G/DL (12.0-16.0) L Hematocrit 22.7 % (37.0-47.0) L Mean Corpuscular Volume 93 FL (80-99) Mean Corpuscular Hemoglobin 30.2 PG (27.0-31.0) Mean Corpuscular Hemoglobin Concent 32.5 G/DL (32.0-36.0) Red Cell Distribution Width 15.2 % (11.6-14.8) H Platelet Count 238 K/UL (150-450) Mean Platelet Volume 7.6 FL (6.5-10.1) Neutrophils (%) (Auto) % (45.0-75.0) Lymphocytes (%) (Auto) % (20.0-45.0) Monocytes (%) (Auto) % (1.0-10.0) Eosinophils (%) (Auto) % (0.0-3.0) Basophils (%) (Auto) % (0.0-2.0) Differential Total Cells Counted 100 Neutrophils % (Manual) 85 % (45-75) H Lymphocytes % (Manual) 11 % (20-45) L Monocytes % (Manual) 4 % (1-10) Eosinophils % (Manual) 0 % (0-3) Basophils % (Manual) 0 % (0-2) Band Neutrophils 0 % (0-8) Platelet Estimate Adequate Platelet Morphology Normal Hypochromasia 3+ Anisocytosis 1+ Spherocytes 1+ Sodium Level 143 MMOL/L (136-145) Potassium Level 3.2 MMOL/L (3.5-5.1) L Chloride Level 112 MMOL/L (98-107) H Carbon Dioxide Level 23 MMOL/L (21-32) Anion Gap 8 mmol/L (5-15) Blood Urea Nitrogen 9 mg/dL (7-18) Creatinine 0.3 MG/DL (0.55-1.30) L Estimat Glomerular Filtration Rate > 60 mL/min (>60) Glucose Level 97 MG/DL (74-106) Calcium Level 7.4 MG/DL (8.5-10.1) L Phosphorus Level 1.3 MG/DL (2.5-4.9) L Magnesium Level 1.7 MG/DL (1.8-2.4) L POC Whole Blood Glucose 92 MG/DL (74-106) Pending Objective HEENT: PERRLA, EOMI, +Trach tube. NECK: Cannot assess JVP, no carotid bruit with normal upstroke. LUNGS: Bilateral rhonchi. CARDIAC: Regular rhythm and rate. Normal S1, S2, no murmurs, gallops or rubs. ABDOMEN: Soft with G-tube. No hepatomegaly. EXTREMITIES: No edema, clubbing or cyanosis. Desmond Gleason MD Jan 31, 2020 22:14
[2020-02-01] VITALS (7 sets, daily range): BP systolic 87–111; BP diastolic 46–60
[2020-02-01] MEDS: D5 1/2NS 1,000 ML IV SCH ×3 (00:14→21:11)
[2020-02-01 04:35] LABS: BASOPHILS % (AUTO) 0.7 % (0.0-2.0); EOSINOPHILS % (AUTO) 0.3 % (0.0-3.0); HEMOGLOBIN 9.3 G/DL (12.0-16.0); LYMPHOCYTES % (AUTO) 12.9 % (20.0-45.0); MEAN CORPUSCULAR VOLUME 90 FL (80-99); NEUTROPHILS % (AUTO) 75.1 % (45.0-75.0); PLATELET COUNT 284 K/UL (150-450); RED BLOOD COUNT 3.09 M/UL (4.20-5.40); RED CELL DISTRIBUTION WIDTH 14.7 % (11.6-14.8); WHITE BLOOD COUNT 13.2 K/UL (4.8-10.8)
[2020-02-01 05:06] LABS: ALANINE AMINOTRANSFERASE 13 U/L (12-78); ALBUMIN 1.6 G/DL (3.4-5.0); ALBUMIN/GLOBULIN RATIO 0.5 (1.0-2.7); ALKALINE PHOSPHATASE 58 U/L (46-116); ANION GAP 10 mmol/L (5-15); ASPARTATE AMINO TRANSFERASE 15 U/L (15-37); BILIRUBIN,TOTAL 0.3 MG/DL (0.2-1.0); BLOOD UREA NITROGEN 4 mg/dL (7-18); CALCIUM 7.2 MG/DL (8.5-10.1); CARBON DIOXIDE 20 MMOL/L (21-32); CHLORIDE 110 MMOL/L (98-107); CREATININE 0.3 MG/DL (0.55-1.30); PHOSPHORUS 2.2 MG/DL (2.5-4.9); POTASSIUM 3.5 MMOL/L (3.5-5.1); SODIUM 140 MMOL/L (136-145)
[2020-02-01] MEDS: Pantoprazole Inj IVP SCH ×2 (08:28→21:09)
[2020-02-01] MEDS: Thiamine 100mg tab GT SCH (08:28)
[2020-02-01] MEDS: Multivitamins W/Minerals 15 ML UDC GT SCH (08:28)
[2020-02-01] MEDS: Ascorbic Acid 500mg tab GT SCH (08:28)
[2020-02-01] MEDS: Gabapentin 300 MG/6 ML Soln GT SCH ×3 (08:29→17:53)
[2020-02-01] MEDS: Sucralfate 1gm tab ORAL SCH ×4 (08:29→21:08)
[2020-02-01] MEDS: levETIRAcetam 500mg/5ml Liquid GT SCH ×2 (08:29→21:08)
--- NOTE | 2020-02-01 08:57 | Pulmonology Progress Note ---
Ivanna Mora [employer] 02/01/20 0857: Subjective ROS Limited/Unobtainable: Yes Allergies: Coded Allergies: CARBAMAZEPINE (Verified Allergy, Unknown, 12/31/19) LORAZEPAM (Verified Allergy, Unknown, 12/31/19) All Systems: reviewed and negative except above Subjective in [facility] no signs of resp distress on current vent settings BP better , on Midodrine, off Dopamine gtt no fevers since 01/29 leuk trending down s/p EGD 01/30- gastric ulceration without signs of visible bleeding Hgb 9.3 this am Objective Last 24 Hour Vital Signs Date Time Temp Pulse Resp B/P (MAP) Pulse Ox O2 Delivery O2 Flow Rate FiO2 02/01/20 07:27 80 25 30 02/01/20 04:00 65 02/01/20 04:00 98.2 64 19 109/54 (72) 100 02/01/20 04:00 30 02/01/20 04:00 30 02/01/20 02:30 77 27 30 02/01/20 00:00 98.1 62 23 109/60 (76) 100 02/01/20 00:00 30 01/31/20 23:31 64 01/31/20 22:30 60 22 30 01/31/20 20:00 97.9 61 28 107/59 (75) 100 01/31/20 20:00 30 01/31/20 19:04 47 01/31/20 18:45 113 24 30 01/31/20 16:00 30 01/31/20 16:00 65 01/31/20 16:00 97.9 64 26 108/55 (72) 100 01/31/20 15:00 70 23 30 01/31/20 12:00 70 01/31/20 12:00 30 01/31/20 12:00 97.7 70 25 106/52 (70) 100 01/31/20 11:05 75 24 30 01/31/20 09:56 98.6 01/31/20 09:00 100 Intake and Output 01/31/20 02/01/20 19:00 07:00 Intake Total 1650 ml 1460.0 ml Output Total 700 ml 800 ml Balance 950 ml 660.0 ml Intake Free Water 60 ml 110 ml IV Total 1200 ml 1100.0 ml Tube Feeding 140 ml 250 ml Other 250 ml Stool Total 700 ml 800 ml # Voids 1 2 Objective General Appearance: bedridden, pale, chronically ill looking, older than her biological age ; vent dependent female ; on vent SIMV 450-30%-12, PEEP 5 Lines, tubes and drains: trach HEENT: normocephalic, atraumatic Neck: trach - Portex #7, secretions small amount, yellow color, thin consistency Respiratory/Chest: CTAB Cardiovascular/Chest: regular rate, regular rhythm Abdomen: non tender, soft, G tube , rectal tube Genitourinary/Rectal: [place] Extremities: no edema, muscle atrophy Neurologic: abnormal gait, poorly responsive, eyes open spontaneously Musculoskeletal: atrophy BLE Skin: multiple tattoos Laboratory Tests 01/31/20 11:39: POC Whole Blood Glucose 92 01/31/20 17:28: POC Whole Blood Glucose [Pending] 02/01/20 02:40: White Blood Count 13.2H, Red Blood Count 3.09L, Hemoglobin 9.3L, Hematocrit 28.0L, Mean Corpuscular Volume 90, Mean Corpuscular Hemoglobin 30.1, Mean Corpuscular Hemoglobin Concent 33.3, Red Cell Distribution Width 14.7, Platelet Count 284, Mean Platelet Volume 7.4, Neutrophils (%) (Auto) 75.1H, Lymphocytes (%) (Auto) 12.9L, Monocytes (%) (Auto) 11.0H, Eosinophils (%) (Auto) 0.3, Basophils (%) (Auto) 0.7, Sodium Level 140, Potassium Level 3.5, Chloride Level 110H, Carbon Dioxide Level 20L, Anion Gap 10, Blood Urea Nitrogen 4L, Creatinine 0.3L, Estimat Glomerular Filtration Rate > 60, Glucose Level 94, Calcium Level 7.2L, Phosphorus Level 2.2L, Magnesium Level 1.9, Total Bilirubin 0.3, Aspartate Amino Transf (AST/SGOT) 15, Alanine Aminotransferase (ALT/SGPT) 13, Alkaline Phosphatase 58, Total Protein 4.8L, Albumin 1.6L, Globulin 3.2, Albumin/Globulin Ratio 0.5L Current Medications Medications (Trade) Dose Ordered Sig/Villa Route PRN Reason Start Time Stop Time Status Last Admin Dose Admin Ascorbic Acid (Vitamin C) 500 mg DAILY GT 01/28/20 09:30 02/27/20 09:29 02/01/20 08:28 Dextrose/Sodium Chloride 1,000 ml @ 100 mls/hr Q10H IV 01/29/20 13:00 02/27/20 12:59 02/01/20 00:14 Famotidine (Pepcid I.v.) 20 mg Q12HR IVP 01/29/20 21:00 02/28/20 20:59 02/01/20 08:28 Fidaxomicin (Dificid) 200 mg EVERY 12 HOURS ORAL 01/28/20 21:00 02/04/20 20:59 02/01/20 08:30 Gabapentin (Neurontin) 900 mg TID GT 01/28/20 09:30 02/19/20 09:29 02/01/20 08:29 Haloperidol Lactate (Haldol) 5 mg Q6H PRN IM Agitation 01/28/20 09:30 02/15/20 09:29 Levetiracetam (Keppra) 1,500 mg Q12HR GT 01/28/20 09:30 02/07/20 09:29 02/01/20 08:29 Levothyroxine Sodium (Synthroid) 50 mcg ACBREAKFAST GT 01/29/20 06:30 02/10/20 06:29 02/01/20 05:39 Metronidazole 100 ml @ 100 mls/hr Q8HR IVPB 01/28/20 22:00 02/04/20 21:59 02/01/20 05:12 Midodrine (Pro-Amatine) 10 mg TID GT 01/28/20 18:00 04/21/20 09:29 02/01/20 08:29 Multivitamins (Multivitamins W/ Minerals 15ml Liquid) 15 ml DAILY GT 01/28/20 09:30 02/27/20 09:29 02/01/20 08:28 Oxcarbazepine (TrileptaL) 300 mg BEDTIME GT 01/28/20 21:00 02/07/20 20:59 01/31/20 21:08 Pantoprazole (Protonix) 40 mg EVERY 12 HOURS IVP 01/31/20 09:30 03/01/20 09:29 02/01/20 08:28 Sucralfate (Carafate) 1 gm FOUR TIMES A DAY ORAL 01/30/20 09:00 04/29/20 08:59 02/01/20 08:29 Thiamine HCl (Vitamin B1) 100 mg DAILY GT 01/28/20 09:30 02/27/20 09:29 02/01/20 08:28 Assessment/Plan Assessment/Plan ASSESSMENT VDRF/trach status Sepsis Possible pneumonia UTI recurrent GI bleeding severe C dif colitis Anemia secondary to GI bleeding Aspiration risk Dysphagia, feeding by G-tube Encephalopathy Acute kidney injury likely secondary to dehydration Recurrent bradycardia persistent Hypotension Electrolyte imbalance Severe protein calorie malnutrition Hx of hypertension History of CVA Seizure disorder with witnessed seizure episode 01/07 Psychiatric disorder Presumed scabies, s/p Rx Thrombocytopenia-transient- resolved PLAN OF CARE JUL[facility]NA off Dopamine gtt, BP better on IVF, vent support, pulm toilet ABG stable on current settings on SIMV mode 450-30-12 PEEP5 , no signs of resp distress on these settings keep settings as is and titrate as needed now tachypneic intermittently CXR 01/27 no acute disease pulm toilet via N CT chest 01/28 - with tree-in-bud nodular opacities in the medial left base and lingula with left bronchial bubbly material suggesting infectious or inflammatory bronchiolitis, likely due to aspiration. Small amount of similar foci seen in the right posterior lower lobe. Mild bronchiectasis and reticulation in the lingula, medial left base, and superior left upper lobe could also be due to chronic infection. leuk trending down, , no fevers pancx-per ID CXR 01/13- no acute findings KUB 01/13- no acute findings UA + yeast , 01/12 UCX +yeast, started on Fluconazole 01/14 as per ID -completed BCX 01/12 NGTD BCX 01/26 and 01/27 NGTD UCX 01/27 + Klebs CR- no need for Rx as per ID ( as UA w/out pyuria) abx as per ID recs Vanco po was prior dc and switched to Dificid , also on Flagyl per GI -till 01/28 , both extended till 02/03 inflammatory markers : ESR-42, CRP- wnl WBC smear NGT CT C/ A/P noted ( see results of CT chest above), CT A/P with findings most compatible with ileus and probable infectious or inflammatory enteritis or enterocolitis. off cefepime rapid COVID 19 NGT in ED aspiration precautions Venous Duplex BLE -negative, get SCD ( unable to give a/c given anemia) closely monitor hemodynamic status heme and GI follows s/p prior EGD 01/01 -> gastric ulcer across G tube site , no active bleeding s/p EGD 01/30 -> gastric ulceration without visible bleeding Protonix IV bid ( changed from Protonix gtt), Carafate GT feeding resumed as per GI , s/p blood tx 01/30 stool OB positive , another pending transfuse to keep Hgb > 7. HH at baseline trend LFT-> trended down, hep panel NGT hx of cirrhosis- per GI management monitor renal parameters, lytes, avoid nephrotoxic IVF BUN trending down, creat stable, likely prerenal due to dehydration replace e/lytes as per nephro recs , K and Mg replaced this am as per nephro monitor volumes seizure precautions, antiepileptic optimized as per neuro recs ammonia 49, fup with further neuro recs EEG - grossly abnormal; mild to mod encephalopathy, single ictal episode CT head no acute IC pathology BP management with current regimen SNF meds supportive care dietary recs s/p 12/31 Rx for presumed scabies with permethrin and Ivermectin, repeated Ivermectin 01/08 case discussed and evaluated by supervising physician Jeyson Anderson MD 02/01/20 2113: Subjective Allergies: Coded Allergies: CARBAMAZEPINE (Verified Allergy, Unknown, 12/31/19) LORAZEPAM (Verified Allergy, Unknown, 12/31/19) Assessment/Plan Assessment/Plan Patient seen and examined with [employer] and I agree with the above formulated assessment and plan. Ivanna Mora NP Feb 01, 2020 08:57 Jeyson Anderson MD Feb 01, 2020 21:13
--- NOTE | 2020-02-01 10:24 | Surgery Progress Note ---
Surgery Progress Note Subjective Additional Comments wbc continues to improve no n/v lots of diarrhea into rectal tube but no bleeding Objective Last 24 Hour Vital Signs Date Time Temp Pulse Resp B/P (MAP) Pulse Ox O2 Delivery O2 Flow Rate FiO2 02/01/20 09:56 100 02/01/20 08:00 77 02/01/20 08:00 30 02/01/20 08:00 98.1 69 22 104/53 (70) 100 02/01/20 07:27 80 25 30 02/01/20 04:00 65 02/01/20 04:00 98.2 64 19 109/54 (72) 100 02/01/20 04:00 30 02/01/20 04:00 30 02/01/20 02:30 77 27 30 02/01/20 00:00 98.1 62 23 109/60 (76) 100 02/01/20 00:00 30 01/31/20 23:31 64 01/31/20 22:30 60 22 30 01/31/20 20:00 97.9 61 28 107/59 (75) 100 01/31/20 20:00 30 01/31/20 19:04 47 01/31/20 18:45 113 24 30 01/31/20 16:00 30 01/31/20 16:00 65 01/31/20 16:00 97.9 64 26 108/55 (72) 100 01/31/20 15:00 70 23 30 01/31/20 12:00 70 01/31/20 12:00 30 01/31/20 12:00 97.7 70 25 106/52 (70) 100 01/31/20 11:05 75 24 30 I&O Intake and Output 01/31/20 02/01/20 19:00 07:00 Intake Total 1650 ml 1460.0 ml Output Total 700 ml 800 ml Balance 950 ml 660.0 ml Intake Free Water 60 ml 110 ml IV Total 1200 ml 1100.0 ml Tube Feeding 140 ml 250 ml Other 250 ml Stool Total 700 ml 800 ml # Voids 1 2 Dressing: other Wound: other Cardiovascular: RSR Respiratory: decreased breath sounds Abdomen: soft, non-tender, present bowel sounds, non-distended Extremities: no tenderness, no cyanosis, other Laboratory Tests Test 01/31/20 11:39 01/31/20 17:02/01/20 02:40 POC Whole Blood Glucose 92 MG/DL (74-106) Pending White Blood Count 13.2 K/UL (4.8-10.8) H Red Blood Count 3.09 M/UL (4.20-5.40) L Hemoglobin 9.3 G/DL (12.0-16.0) L Hematocrit 28.0 % (37.0-47.0) L Mean Corpuscular Volume 90 FL (80-99) Mean Corpuscular Hemoglobin 30.1 PG (27.0-31.0) Mean Corpuscular Hemoglobin Concent 33.3 G/DL (32.0-36.0) Red Cell Distribution Width 14.7 % (11.6-14.8) Platelet Count 284 K/UL (150-450) Mean Platelet Volume 7.4 FL (6.5-10.1) Neutrophils (%) (Auto) 75.1 % (45.0-75.0) H Lymphocytes (%) (Auto) 12.9 % (20.0-45.0) L Monocytes (%) (Auto) 11.0 % (1.0-10.0) H Eosinophils (%) (Auto) 0.3 % (0.0-3.0) Basophils (%) (Auto) 0.7 % (0.0-2.0) Sodium Level 140 MMOL/L (136-145) Potassium Level 3.5 MMOL/L (3.5-5.1) Chloride Level 110 MMOL/L (98-107) H Carbon Dioxide Level 20 MMOL/L (21-32) L Anion Gap 10 mmol/L (5-15) Blood Urea Nitrogen 4 mg/dL (7-18) L Creatinine 0.3 MG/DL (0.55-1.30) L Estimat Glomerular Filtration Rate > 60 mL/min (>60) Glucose Level 94 MG/DL (74-106) Calcium Level 7.2 MG/DL (8.5-10.1) L Phosphorus Level 2.2 MG/DL (2.5-4.9) L Magnesium Level 1.9 MG/DL (1.8-2.4) Total Bilirubin 0.3 MG/DL (0.2-1.0) Aspartate Amino Transf (AST/SGOT) 15 U/L (15-37) Alanine Aminotransferase (ALT/SGPT) 13 U/L (12-78) Alkaline Phosphatase 58 U/L (46-116) Total Protein 4.8 G/DL (6.4-8.2) L Albumin 1.6 G/DL (3.4-5.0) L Globulin 3.2 g/dL Albumin/Globulin Ratio 0.5 (1.0-2.7) L Plan Problems: (1) Pneumonia (2) Sepsis Assessment & Plan: leukocytosis anemia lactic acidosis agree with GI recommend EGD planned for 12/31 hold feeding for now trend h/h monitor for bleeding no acute hemorrhage will be available in event needs exploration for hemostasis prbc as per heme thank you will follow with recs cont abx worsening wbc wbc trending down comfortable appearing no n/v hypotensive in ICU again worse pending CT results - noted PICC ordered improving wbc improved labs and micro trending Pt presented on admission in emaciated state. Pt has tracheostomy and GT. NO skin concerns noted to skin under collar of trach. NO erythema or evidence of skin erosion at GT site. Pt noted to have scaly pimple-like rash with webbing noted to R and L axillae, undersides of both breasts, Bilat groin and lower back. Tracking and webbing noted to hands and feet. Pt restless and scratching at skin. Non-Blanching erythema without induration or fluctuance noted to R and L hips and trochanteric areas.Non-blanching erythema noted along spine. Non-Blanching erythema without induration noted to Sacrum. Non-Blanching erythema noted to R and L Malleoli and both heels. Tx.Plan: Please apply Cavilon Skin Barrier to each bony Prominences at risks for Skin Breakdown. Cover each area with Optifoam drsgs. Change every 7 days and prn. Apply Moisture Barrier Paste to Sacrum. Cover with Optifoam drsg. Change every 3 days and prn. Reposition at least every 2hours or as tolerated. Off-load heels with pillow. APM/EMELI Mattress overlay. improving cont current care plan There is marked enlargement of the third and lateral ventricles and extra axial CSF spaces, in particular the former. There is considerable periventricular deep white matter low-attenuation. Otherwise normal mobley-white differentiation. No acute hemorrhage or edema. No mass effect nor midline shift. Visualized orbits and sinuses are unremarkable. The calvarium is intact Impression: Third and lateral ventriculomegaly. Associated enlargement of the extra axial CSF spaces indicates that this is probably due to central volume loss, but the possibility of hydrocephalus should also be considered. At the degree of volume loss is considerably out of proportion to patient's age. Correlate with clinical history Periventricular deep white matter low-attenuation. Probably on the basis of microvascular ischemic change but given patient's age the possibility of demyelinating disease should be considered as well. Negative for acute intracranial bleed or mass effect ABDOMEN: Liver: Unremarkable. Gallbladder and bile ducts: Cholecystectomy. No ductal dilation. Pancreas: Unremarkable. No ductal dilation. Spleen: Unremarkable. No splenomegaly. Adrenals: Unremarkable. No mass. Kidneys and ureters: Unremarkable. No obstructing stones. No hydronephrosis. Stomach and bowel: Operative bowel findings. Diffuse small bowel wall thickening with areas of distention and fluid-filled colonic loops. No clear focal transition point to suggest small bowel obstruction. PELVIS: Appendix: Appendix not identified. Bladder: Urinary bladder wall thickening could be incidental, due to high outlet pressures, or could represent cystitis. No stones. Reproductive: Unremarkable as visualized. ABDOMEN and PELVIS: Intraperitoneal space: Large low-attenuation pelvic fluid of uncertain significance, potentially reactive. No free air. Bones/joints: No acute fracture. No dislocation. Soft tissues: Bilateral buttock injection granulomas. Vasculature: Unremarkable. No abdominal aortic aneurysm. Lymph nodes: Unremarkable. No enlarged lymph nodes. Tubes, lines and devices: Percutaneous gastrostomy tube adequately positioned in the stomach. Rectal tube. Other findings: No perforation seen. IMPRESSION: 1. Study substantially limited due to lack of IV contrast. 2. Findings most compatible with ileus and probable infectious or inflammatory enteritis or enterocolitis. 3. Large low-attenuation pelvic fluid of uncertain significance, potentially reactive. 4. Appendix not identified. 5. Percutaneous gastrostomy tube adequately positioned in the stomach. Rectal tube. 6. Urinary bladder wall thickening could be incidental, due to high outlet pressures, or could represent cystitis. 7. Cholecystectomy. (3) GI bleed (4) G tube feedings Assessment & Plan: DAILY ESTIMATED NEEDS: Needs based on Underweight, critical care 37.3kg 30-40 kcals/kg 8034-3639 total kcals 1.25-2 g protein/kg 47-75 g total protein 25-35 mL/kg 933-1306 total fluid mLs NUTRITION DIAGNOSIS: Increased kcal and pro needs r/t underweight status as evidenced by BMI 14.1, pt is 68% of ideal body weight w/ generalized severe wasting, trach and peg dep. CURRENT TF:Vital AF 1.2 @55 x20 hrs ENTERAL NUTRITION RECOMMENDATIONS: Vital AF 1.2 @ 55ml/hr x20 hrs to provide 1100ml 1320kcal 83g prot, 892ml free water - Rec to continue elemental TF formula while stool C-diff positive, +LBM - HOLD 1HR BEFORE AND AFTER SYNTHROID MEDS - Flush per MD. HOB over 30 degrees ADDITIONAL RECOMMENDATIONS: 1) Per SNF: 5'4" and 81# Maintain calibrated bed scale wts w/ added P200 mattress 2) Lytes daily madhav w/ loose stools, replete as needed 3) Skin integrity: Continue BRIAN VIA GT BID + Vit C 4) Accuchecks for Hypoglycemia 5) Add probiotics for stool C-diff+ . George Woods Feb 01, 2020 10:24
[2020-02-01] MEDS ORDERED: Potassium Phosphate 20 MM in NS 275 ML IV ONE (11:00)
--- NOTE | 2020-02-01 11:41 | Infectious Diseases Prog Note ---
Assessment/Plan 39yo F with: Severe Sepsis Fever, recurrent; improving Leukocytosis; recurrent; increased- now improving UTI -01/28 CXR: Subtle reticular nodular opacities in the left apex which may be related to scarring versus acute small airway disease/bronchitis CT c/abd/p wo: Study substantially limited due to lack of IV contrast. Findings most compatible with ileus and probable infectious or inflammatory enteritis or enterocolitis. Large low-attenuation pelvic fluid of uncertain significance, potentially reactive.Appendix not identified. Percutaneous gastrostomy tube adequately positioned in the stomach. Rectal tube. Urinary bladder wall thickening could be incidental, due to high outlet pressures, or could represent cystitis.Cholecystectomy. -01/27 u/a no pyuria, nit +, leuk +3; ucx >100k CRE (S Gentamycin) CXR: no acute disease Bc xNTD -01/26 Bcx NTD -01/13 CXR: no acute disease -01/12 u/a wbc tnct, nit neg, latrell +3; ucx >100k C. tropicalis Bcx NTD Severe Cdiff colitis -01/30 Cdif toxin a/b neg -01/06 Cdif toxin + 01/27 KUB:Severely dilated small bowel loop in the central abdomen could reflect obstruction. Diffusely fluid distended colon. -01/13 KUB: no acute findings Recurrent GIB 01/06 u/aneg 12/30 BCx 1/2 +CONS, likely contaminant 12/30 UA neg, COVID rapid Ag neg 12/30 CXR 1. Density overlying the bilateral lung apices. May represent pleural thickening, multifocal airspace opacities, versus summation artifact. 01/01 BCx Neg 01/02 BCx Neg Acute blood loss anemia Possible pna on CXR, sp rx Seizure episode -01/10 CT head: Third and lateral ventriculomegaly. Associated enlargement of the extra axial CSF spaces indicates that this is probably due to central volume loss, but the possibility of hydrocephalus should also be considered. At the degree of volume loss is considerably out of proportion to patient's age. Periventricular deep white matter low-attenuation. Probably on the basis of microvascular ischemic change but given patient's age the possibility of demyelinating disease should be considered as well. 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 [facility] will continue to follow. Subjective Allergies: Coded Allergies: CARBAMAZEPINE (Verified Allergy, Unknown, 12/31/19) LORAZEPAM (Verified Allergy, Unknown, 12/31/19) afebrile >24hrs wbc improving Bcx NTD ucx grew CRE stool output increased Objective Last 24 Hour Vital Signs Date Time Temp Pulse Resp B/P (MAP) Pulse Ox O2 Delivery O2 Flow Rate FiO2 02/01/20 10:36 69 27 30 02/01/20 09:56 100 02/01/20 08:00 77 02/01/20 08:00 30 02/01/20 08:00 98.1 69 22 104/53 (70) 100 02/01/20 07:27 80 25 30 02/01/20 04:00 65 02/01/20 04:00 98.2 64 19 109/54 (72) 100 02/01/20 04:00 30 02/01/20 04:00 30 02/01/20 02:30 77 27 30 02/01/20 00:00 98.1 62 23 109/60 (76) 100 02/01/20 00:00 30 01/31/20 23:31 64 01/31/20 22:30 60 22 30 01/31/20 20:00 97.9 61 28 107/59 (75) 100 01/31/20 20:00 30 01/31/20 19:04 47 01/31/20 18:45 113 24 30 01/31/20 16:00 30 01/31/20 16:00 65 01/31/20 16:00 97.9 64 26 108/55 (72) 100 01/31/20 15:00 70 23 30 01/31/20 12:00 70 01/31/20 12:00 30 01/31/20 12:00 97.7 70 25 106/52 (70) 100 Height (Feet): 5 Height (Inches): 1.00 Weight (Pounds): 81 General Appearance: no apparent distress Neck: supple Cardiovascular: normal rate Respiratory/Chest: decreased breath sounds Abdomen: hypoactive bowel sounds Extremities: non-tender Microbiology Date/Time Source Procedure Growth Status 01/31/20 16:40 Stool Clostridium difficile Toxin Assay - Final Complete Laboratory Tests Test 01/31/20 11:39 01/31/20 17:28 02/01/20 02:40 POC Whole Blood Glucose 92 MG/DL (74-106) Pending White Blood Count 13.2 K/UL (4.8-10.8) H Red Blood Count 3.09 M/UL (4.20-5.40) L Hemoglobin 9.3 G/DL (12.0-16.0) L Hematocrit 28.0 % (37.0-47.0) L Mean Corpuscular Volume 90 FL (80-99) Mean Corpuscular Hemoglobin 30.1 PG (27.0-31.0) Mean Corpuscular Hemoglobin Concent 33.3 G/DL (32.0-36.0) Red Cell Distribution Width 14.7 % (11.6-14.8) Platelet Count 284 K/UL (150-450) Mean Platelet Volume 7.4 FL (6.5-10.1) Neutrophils (%) (Auto) 75.1 % (45.0-75.0) H Lymphocytes (%) (Auto) 12.9 % (20.0-45.0) L Monocytes (%) (Auto) 11.0 % (1.0-10.0) H Eosinophils (%) (Auto) 0.3 % (0.0-3.0) Basophils (%) (Auto) 0.7 % (0.0-2.0) Sodium Level 140 MMOL/L (136-145) Potassium Level 3.5 MMOL/L (3.5-5.1) Chloride Level 110 MMOL/L (98-107) H Carbon Dioxide Level 20 MMOL/L (21-32) L Anion Gap 10 mmol/L (5-15) Blood Urea Nitrogen 4 mg/dL (7-18) L Creatinine 0.3 MG/DL (0.55-1.30) L Estimat Glomerular Filtration Rate > 60 mL/min (>60) Glucose Level 94 MG/DL (74-106) Calcium Level 7.2 MG/DL (8.5-10.1) L Phosphorus Level 2.2 MG/DL (2.5-4.9) L Magnesium Level 1.9 MG/DL (1.8-2.4) Total Bilirubin 0.3 MG/DL (0.2-1.0) Aspartate Amino Transf (AST/SGOT) 15 U/L (15-37) Alanine Aminotransferase (ALT/SGPT) 13 U/L (12-78) Alkaline Phosphatase 58 U/L (46-116) Total Protein 4.8 G/DL (6.4-8.2) L Albumin 1.6 G/DL (3.4-5.0) L Globulin 3.2 g/dL Albumin/Globulin Ratio 0.5 (1.0-2.7) L Current Medications Medications (Trade) Dose Ordered Sig/Villa Route PRN Reason Start Time Stop Time Status Last Admin Dose Admin Ascorbic Acid (Vitamin C) 500 mg DAILY GT 01/28/20 09:30 02/27/20 09:29 02/01/20 08:28 Dextrose/Sodium Chloride 1,000 ml @ 100 mls/hr Q10H IV 01/29/20 13:00 02/27/20 12:59 02/01/20 10:47 Famotidine (Pepcid I.v.) 20 mg Q12HR IVP 01/29/20 21:00 02/28/20 20:59 02/01/20 08:28 Fidaxomicin (Dificid) 200 mg EVERY 12 HOURS ORAL 01/28/20 21:00 02/04/20 20:59 02/01/20 08:30 Gabapentin (Neurontin) 900 mg TID GT 01/28/20 09:30 02/19/20 09:29 02/01/20 08:29 Haloperidol Lactate (Haldol) 5 mg Q6H PRN IM Agitation 01/28/20 09:30 02/15/20 09:29 Levetiracetam (Keppra) 1,500 mg Q12HR GT 01/28/20 09:30 02/07/20 09:29 02/01/20 08:29 Levothyroxine Sodium (Synthroid) 50 mcg ACBREAKFAST GT 01/29/20 06:30 02/10/20 06:29 02/01/20 05:39 Metronidazole 100 ml @ 100 mls/hr Q8HR IVPB 01/28/20 22:00 02/04/20 21:59 02/01/20 05:12 Midodrine (Pro-Amatine) 10 mg TID GT 01/28/20 18:00 04/21/20 09:29 02/01/20 08:29 Multivitamins (Multivitamins W/ Minerals 15ml Liquid) 15 ml DAILY GT 01/28/20 09:30 02/27/20 09:29 02/01/20 08:28 Oxcarbazepine (TrileptaL) 300 mg BEDTIME GT 01/28/20 21:00 02/07/20 20:59 01/31/20 21:08 Pantoprazole (Protonix) 40 mg EVERY 12 HOURS IVP 01/31/20 09:30 03/01/20 09:29 02/01/20 08:28 Potassium Phosphate 20 mm/ Sodium Chloride 281.6667 ml @ 46.944 m... ONCE ONCE IV 02/01/20 11:00 02/01/20 16:59 02/01/20 10:46 Sucralfate (Carafate) 1 gm FOUR TIMES A DAY ORAL 01/30/20 09:00 04/29/20 08:59 02/01/20 08:29 Thiamine HCl (Vitamin B1) 100 mg DAILY GT 01/28/20 09:30 02/27/20 09:29 02/01/20 08:28 Char Morel M.D. Feb 01, 2020 11:41
--- NOTE | 2020-02-01 13:47 | General Progress Note ---
Subjective ROS Limited/Unobtainable: No Allergies: Coded Allergies: CARBAMAZEPINE (Verified Allergy, Unknown, 12/31/19) LORAZEPAM (Verified Allergy, Unknown, 12/31/19) Objective Last 24 Hour Vital Signs Date Time Temp Pulse Resp B/P (MAP) Pulse Ox O2 Delivery O2 Flow Rate FiO2 02/01/20 12:00 30 02/01/20 10:36 69 27 30 02/01/20 09:56 100 02/01/20 08:00 77 02/01/20 08:00 30 02/01/20 08:00 98.1 69 22 104/53 (70) 100 02/01/20 07:27 80 25 30 02/01/20 04:00 65 02/01/20 04:00 98.2 64 19 109/54 (72) 100 02/01/20 04:00 30 02/01/20 04:00 30 02/01/20 02:30 77 27 30 02/01/20 00:00 98.1 62 23 109/60 (76) 100 02/01/20 00:00 30 01/31/20 23:31 64 01/31/20 22:30 60 22 30 01/31/20 20:00 97.9 61 28 107/59 (75) 100 01/31/20 20:00 30 01/31/20 19:04 47 01/31/20 18:45 113 24 30 01/31/20 16:00 30 01/31/20 16:00 65 01/31/20 16:00 97.9 64 26 108/55 (72) 100 01/31/20 15:00 70 23 30 l Intake and Output 01/31/20 02/01/20 19:00 07:00 Intake Total 1650 ml 1460.0 ml Output Total 700 ml 800 ml Balance 950 ml 660.0 ml Intake Free Water 60 ml 110 ml IV Total 1200 ml 1100.0 ml Tube Feeding 140 ml 250 ml Other 250 ml Stool Total 700 ml 800 ml # Voids 1 2 Laboratory Tests 01/31/20 17:28: POC Whole Blood Glucose [Pending] 02/01/20 02:40: White Blood Count 13.2H, Red Blood Count 3.09L, Hemoglobin 9.3L, Hematocrit 28.0L, Mean Corpuscular Volume 90, Mean Corpuscular Hemoglobin 30.1, Mean Corpuscular Hemoglobin Concent 33.3, Red Cell Distribution Width 14.7, Platelet Count 284, Mean Platelet Volume 7.4, Neutrophils (%) (Auto) 75.1H, Lymphocytes (%) (Auto) 12.9L, Monocytes (%) (Auto) 11.0H, Eosinophils (%) (Auto) 0.3, Basophils (%) (Auto) 0.7, Sodium Level 140, Potassium Level 3.5, Chloride Level 110H, Carbon Dioxide Level 20L, Anion Gap 10, Blood Urea Nitrogen 4L, Creatinine 0.3L, Estimat Glomerular Filtration Rate > 60, Glucose Level 94, Calcium Level 7.2L, Phosphorus Level 2.2L, Magnesium Level 1.9, Total Bilirubin 0.3, Aspartate Amino Transf (AST/SGOT) 15, Alanine Aminotransferase (ALT/SGPT) 13, Alkaline Phosphatase 58, Total Protein 4.8L, Albumin 1.6L, Globulin 3.2, Albumin/Globulin Ratio 0.5L 02/01/20 12:15: POC Whole Blood Glucose 84 Height (Feet): 5 Height (Inches): 1.00 Weight (Pounds): 81 General Appearance: no apparent distress EENT: PERRL/EOMI Neck: supple Cardiovascular: normal rate Respiratory/Chest: decreased breath sounds Abdomen: normal bowel sounds, non tender, soft Extremities: non-tender Assessment/Plan Problem List: (1) G tube feedings ICD Codes: Z93.1 - Gastrostomy status SNOMED: 296584366, 534535668, 074650562 (2) GI bleed ICD Codes: K92.2 - Gastrointestinal hemorrhage, unspecified SNOMED: 08435056 (3) Sepsis ICD Codes: A41.9 - Sepsis, unspecified organism SNOMED: 53281936 (4) Pneumonia ICD Codes: J18.9 - Pneumonia, unspecified organism SNOMED: 484095218 Status: stable, other - Patient is now hypotensive before over 46 she will receive 500 cc of normal saline bolus to be repeated blood pressure remained below 90 further management will be decided following the boluses treatment repeat laboratory tests will be done in a.m. GEM MCKAY MD Assessment/Plan: s/p EGD f gastric ulcer monitor H&H C. Diff positive po dificid still has diarrhea GIB famotidine IV add carafate and ppi plan EGD when WBC is better fu CT will fu Satish Carrillo MD Feb 01, 2020 13:47
[2020-02-01] MEDS ORDERED: Tubing IV Blood Pump IV ONE (13:56)
[2020-02-01] MEDS ORDERED: Tubing IV Secondary IV ONE (13:56)
[2020-02-01] MEDS ORDERED: D5 1/2NS 1000ml IV ONE (13:56)
[2020-02-01] MEDS ORDERED: D5W 275ml ONE (13:56)
--- NOTE | 2020-02-01 15:03 | Nephrology Progress Note ---
Assessment/Plan Problem List: (1) RICHARD (acute kidney injury) (2) Dehydration (3) Anemia (4) GI bleed (5) Malnutrition (6) Seizure disorder (7) Electrolyte imbalance Assessment Renal failure, in the form of prerenal azotemia, most likely secondary to GI bleed GI bleed, leading to severe anemia Sepsis, pneumonia Chronic tracheostomy, ventilator dependent History of CVA History of seizure disorder History of psychiatric disorder Severe malnutrition Electrolyte abnormalities Plan January 31: Lab reviewed. Hemoglobin higher. Renal parameters stable. Potassium and phosphorus supplement given. January 30: Labs reviewed. Low mag low phosphorus and low potassium replaced. White blood cells 16,000 today. Remains full code. Continue to monitor hemoglobin and hematocrit and electrolytes. January 29: Labs reviewed. Magnesium, potassium, phosphorus supplement given. White blood cells down to 22,000. Remains full code. Continue per consultants. RN reports rectal bleed. Hemoglobin drifting down. Defer management to welfare eligibility interviewer who is already on the case. January 28: Status quo. Electrolyte abnormalities noted. Mag Phos and potassium supplement IV given. Renal parameters stable. Continue per consultants. Leukocytosis persists. January 27: Significant rise in white blood cell counts. Hypotensive. Now in ICU. Will give albumin bolus. Continue to monitor renal parameters. Continue per ID advice. January 26: Continue to monitor renal parameters. Patient remains on ventilator. Patient is full code. Continue per consultants. January 25: Status quo. Labs reviewed. Continue per consultants. January 24: Status unchanged. Labs reviewed. Remains stable from renal standpoint of view. January 23: Back in [place]. Stable from renal standpoint of view. Continue per consultants. January 22: Patient in ICU now. Vital signs and heart rate and blood pressure appears to be stable. Patient had an episode of bradycardia but it was resolved. TSH level today is very low will cut down on Synthroid dose. January 21: Today's labs are reviewed. Stable renal parameters. Continue per consultants. January 20: Labs reviewed. Renal parameters stable. January 19: Labs reviewed. Stable from renal standpoint. January 18: No labs done today. Continue per consultants. Medications reviewed. January 17: Late [place] entry [place] [facility] [place]istry [place] reviewed. Stable from renal standpoint of view. Continue per current management. January 2: No can panel today. Check lab tomorrow. Remains stable from renal standpoint of view. January 15: Lab reviewed. Renal parameters stable. January 14: Lab reviewed. Renal parameters stable. January 13: Labs reviewed. Stable from renal standpoint of view. January 12: Labs reviewed. Stable from renal standpoint of view January 11: No labs drawn today stable from renal standpoint of view January 10: Labs reviewed. Potassium supplement given. Continue per consultants. January 09: Lab reviewed. Potassium supplement given. IV fluid discontinued. January 08: Lab reviewed. Renal parameters stable. Continue per consultants. January 07: Lab reviewed. Renal parameters stable. Continue per consultants. January 06: Lab reviewed. Stable from renal standpoint of view. January 05: Labs reviewed. Stable from renal standpoint of view. Continue per consultants. January 04: No labs drawn today. Will check labs tomorrow. Continue per consultants. January 03: Lab reviewed. Renal parameters stable. IV fluid discontinued. High LFTs declining. Continue same. January 02: Lab reviewed. Renal parameters stable. Continue per PMD and consultants. LFTs remain elevated. Continue to monitor. Continue slow hydration Discontinue blood pressure medications as her blood pressure is low Discontinue diuretics Monitor renal parameters Transfusion as needed GI evaluation Correct electrolyte abnormalities Check B12 level, folate, and thyroid function tests: Results noted Subjective ROS Limited/Unobtainable: Yes Objective Objective Last 24 Hour Vital Signs Date Time Temp Pulse Resp B/P (MAP) Pulse Ox O2 Delivery O2 Flow Rate FiO2 02/01/20 14:45 98 27 30 02/01/20 12:00 30 02/01/20 10:36 69 27 30 02/01/20 09:56 100 02/01/20 08:00 77 02/01/20 08:00 30 02/01/20 08:00 98.1 69 22 104/53 (70) 100 02/01/20 07:27 80 25 30 02/01/20 04:00 65 02/01/20 04:00 98.2 64 19 109/54 (72) 100 02/01/20 04:00 30 02/01/20 04:00 30 02/01/20 02:30 77 27 30 02/01/20 00:00 98.1 62 23 109/60 (76) 100 02/01/20 00:00 30 01/31/20 23:31 64 01/31/20 22:30 60 22 30 01/31/20 20:00 97.9 61 28 107/59 (75) 100 01/31/20 20:00 30 01/31/20 19:04 47 01/31/20 18:45 113 24 30 01/31/20 16:00 30 01/31/20 16:00 65 01/31/20 16:00 97.9 64 26 108/55 (72) 100 Intake and Output 01/31/20 02/01/20 19:00 07:00 Intake Total 1650 ml 1460.0 ml Output Total 700 ml 800 ml Balance 950 ml 660.0 ml Intake Free Water 60 ml 110 ml IV Total 1200 ml 1100.0 ml Tube Feeding 140 ml 250 ml Other 250 ml Stool Total 700 ml 800 ml # Voids 1 2 Laboratory Tests 01/31/20 17:28: POC Whole Blood Glucose [Pending] 02/01/20 02:40: White Blood Count 13.2H, Red Blood Count 3.09L, Hemoglobin 9.3L, Hematocrit 28.0L, Mean Corpuscular Volume 90, Mean Corpuscular Hemoglobin 30.1, Mean Corpuscular Hemoglobin Concent 33.3, Red Cell Distribution Width 14.7, Platelet Count 284, Mean Platelet Volume 7.4, Neutrophils (%) (Auto) 75.1H, Lymphocytes (%) (Auto) 12.9L, Monocytes (%) (Auto) 11.0H, Eosinophils (%) (Auto) 0.3, Basophils (%) (Auto) 0.7, Sodium Level 140, Potassium Level 3.5, Chloride Level 110H, Carbon Dioxide Level 20L, Anion Gap 10, Blood Urea Nitrogen 4L, Creatinine 0.3L, Estimat Glomerular Filtration Rate > 60, Glucose Level 94, Calcium Level 7.2L, Phosphorus Level 2.2L, Magnesium Level 1.9, Total Bilirubin 0.3, Aspartate Amino Transf (AST/SGOT) 15, Alanine Aminotransferase (ALT/SGPT) 13, Alkaline Phosphatase 58, Total Protein 4.8L, Albumin 1.6L, Globulin 3.2, Albumin/Globulin Ratio 0.5L 02/01/20 12:15: POC Whole Blood Glucose 84 Height (Feet): 5 Height (Inches): 1.00 Weight (Pounds): 81 General Appearance: no apparent distress EENT: other - Trach to vent Cardiovascular: normal rate Respiratory/Chest: decreased breath sounds Abdomen: distended Objective No change Chivo Holloway MD Feb 01, 2020 15:03
--- NOTE | 2020-02-01 20:27 | General Progress Note ---
Subjective Constitutional: Reports: no symptoms HEENT: Reports: no symptoms Cardiovascular: Reports: no symptoms Respiratory: Reports: no symptoms Gastrointestinal/Abdominal: Reports: no symptoms Allergies: Coded Allergies: CARBAMAZEPINE (Verified Allergy, Unknown, 12/31/19) LORAZEPAM (Verified Allergy, Unknown, 12/31/19) Objective Last 24 Hour Vital Signs Date Time Temp Pulse Resp B/P (MAP) Pulse Ox O2 Delivery O2 Flow Rate FiO2 02/01/20 20:00 82 02/01/20 20:00 30 02/01/20 18:53 82 27 30 02/01/20 16:00 30 02/01/20 16:00 99.9 99 35 92/46 (61) 100 02/01/20 16:00 105 02/01/20 14:45 98 27 30 02/01/20 12:00 82 02/01/20 12:00 99.5 81 25 111/56 (74) 100 02/01/20 12:00 30 02/01/20 10:36 69 27 30 02/01/20 09:56 100 02/01/20 08:00 77 02/01/20 08:00 30 02/01/20 08:00 98.1 69 22 104/53 (70) 100 02/01/20 07:27 80 25 30 02/01/20 04:00 65 02/01/20 04:00 98.2 64 19 109/54 (72) 100 02/01/20 04:00 30 02/01/20 04:00 30 02/01/20 02:30 77 27 30 02/01/20 00:00 98.1 62 23 109/60 (76) 100 02/01/20 00:00 30 01/31/20 23:31 64 01/31/20 22:30 60 22 30 Intake and Output 01/31/20 02/01/20 19:00 07:00 Intake Total 1650 ml 1560.0 ml Output Total 700 ml 800 ml Balance 950 ml 760.0 ml Intake Free Water 60 ml 110 ml IV Total 1200 ml 1200.0 ml Tube Feeding 140 ml 250 ml Other 250 ml Stool Total 700 ml 800 ml # Voids 1 2 Laboratory Tests 02/01/20 02:40: White Blood Count 13.2H, Red Blood Count 3.09L, Hemoglobin 9.3L, Hematocrit 28.0L, Mean Corpuscular Volume 90, Mean Corpuscular Hemoglobin 30.1, Mean Corpuscular Hemoglobin Concent 33.3, Red Cell Distribution Width 14.7, Platelet Count 284, Mean Platelet Volume 7.4, Neutrophils (%) (Auto) 75.1H, Lymphocytes (%) (Auto) 12.9L, Monocytes (%) (Auto) 11.0H, Eosinophils (%) (Auto) 0.3, Basophils (%) (Auto) 0.7, Sodium Level 140, Potassium Level 3.5, Chloride Level 110H, Carbon Dioxide Level 20L, Anion Gap 10, Blood Urea Nitrogen 4L, Creatinine 0.3L, Estimat Glomerular Filtration Rate > 60, Glucose Level 94, Calcium Level 7.2L, Phosphorus Level 2.2L, Magnesium Level 1.9, Total Bilirubin 0.3, Aspartate Amino Transf (AST/SGOT) 15, Alanine Aminotransferase (ALT/SGPT) 13, Alkaline Phosphatase 58, Total Protein 4.8L, Albumin 1.6L, Globulin 3.2, Albumin/Globulin Ratio 0.5L 02/01/20 12:15: POC Whole Blood Glucose 84 02/01/20 17:25: POC Whole Blood Glucose 105 Height (Feet): 5 Height (Inches): 1.00 Weight (Pounds): 81 General Appearance: WD/WN, no apparent distress, alert EENT: normal ENT inspection Neck: supple Cardiovascular: normal rate, regular rhythm, no gallop/murmur, no JVD, bradycardia Respiratory/Chest: lungs clear, normal breath sounds, no respiratory distress, no accessory muscle use Abdomen: normal bowel sounds, non tender, soft, no organomegaly, no mass Extremities: non-tender Skin: warm/dry Assessment/Plan Problem List: (1) Pneumonia ICD Codes: J18.9 - Pneumonia, unspecified organism SNOMED: 059997320 (2) Sepsis ICD Codes: A41.9 - Sepsis, unspecified organism SNOMED: 39375209 (3) GI bleed ICD Codes: K92.2 - Gastrointestinal hemorrhage, unspecified SNOMED: 10535080 (4) Anemia ICD Codes: D64.9 - Anemia, unspecified SNOMED: 370465217 (5) Seizure disorder ICD Codes: G40.909 - Epilepsy, unspecified, not intractable, without status epilepticus SNOMED: 573265158 (6) Malnutrition ICD Codes: E46 - Unspecified protein-calorie malnutrition SNOMED: 85346554 (7) Thrombocytopenia ICD Codes: D69.6 - Thrombocytopenia, unspecified SNOMED: 481908030 Status: stable, other - Patient is now hypotensive before over 46 she will receive 500 cc of normal saline bolus to be repeated blood pressure remained below 90 further management will be decided following the boluses treatment repeat laboratory tests will be done in a.m. GLENNY MCKAY MD Assessment/Plan: Glenny Guadarrama MD Feb 01, 2020 20:27
[2020-02-01] MEDS: OXcarbazepine 150mg tab GT SCH (21:07)
[2020-02-01] MEDS: Acetaminophen 650mg/20.3ml GT PRN (21:07)
[2020-02-02 02:44] LABS: APPEARANCE,URINE CLEAR; BILIRUBIN, URINE NEGATIVE (NEGATIVE); GLUCOSE, URINE (UA) NEGATIVE (NEGATIVE); KETONES,URINE NEGATIVE (NEGATIVE); LEUKOCYTE ESTERASE ,URINE 2+ (NEGATIVE); NITRITE,URINE NEGATIVE (NEGATIVE); PH,URINE 6 (4.5-8.0); PROTEIN,URINE 1+ (NEGATIVE); UROBILINOGEN,URINE NORMAL MG/DL (0.0-1.0)
[2020-02-02 03:55] LABS: HEMATOCRIT 28.3 % (37.0-47.0); HEMOGLOBIN 9.7 G/DL (12.0-16.0); MEAN CORPUSCULAR VOLUME 89 FL (80-99); PLATELET COUNT 264 K/UL (150-450); RED BLOOD COUNT 3.18 M/UL (4.20-5.40)
[2020-02-02 04:00] VITALS: BP 97/52
[2020-02-02 04:11] LABS: ANION GAP 12 mmol/L (5-15); BLOOD UREA NITROGEN 2 mg/dL (7-18); CALCIUM 7.1 MG/DL (8.5-10.1); CARBON DIOXIDE 22 MMOL/L (21-32); CHLORIDE 108 MMOL/L (98-107); CREATININE 0.4 MG/DL (0.55-1.30); SODIUM 141 MMOL/L (136-145)
[2020-02-02 05:02] LABS: POTASSIUM 2.7 MMOL/L (3.5-5.1)
[2020-02-02 05:17] LABS: WHITE BLOOD COUNT 23.3 K/UL (4.8-10.8)
[2020-02-02 05:42] LABS: COLOR,URINE YELLOW
[2020-02-02] MEDS: D5 1/2NS 1,000 ML IV SCH ×2 (06:06→18:05)
[2020-02-02 08:13] VITALS: BP 94/44
[2020-02-02 08:54] LABS: ALANINE AMINOTRANSFERASE 17 U/L (12-78); ALBUMIN 1.6 G/DL (3.4-5.0); ALKALINE PHOSPHATASE 53 U/L (46-116); ASPARTATE AMINO TRANSFERASE 33 U/L (15-37); BILIRUBIN,DIRECT 0.1 MG/DL (0.0-0.3); BILIRUBIN,TOTAL 0.2 MG/DL (0.2-1.0); PHOSPHORUS 1.6 MG/DL (2.5-4.9)
[2020-02-02] MEDS: levETIRAcetam 500mg/5ml Liquid GT SCH ×2 (09:23→20:01)
[2020-02-02] MEDS: Sucralfate 1gm tab ORAL SCH ×4 (09:23→20:00)
[2020-02-02] MEDS: Ascorbic Acid 500mg tab GT SCH (09:24)
[2020-02-02] MEDS: Thiamine 100mg tab GT SCH (09:24)
[2020-02-02] MEDS: Gabapentin 300 MG/6 ML Soln GT SCH ×3 (09:24→18:03)
[2020-02-02] MEDS: Multivitamins W/Minerals 15 ML UDC GT SCH (09:24)
[2020-02-02] MEDS: Pantoprazole Inj IVP SCH ×2 (09:25→20:01)
--- NOTE | 2020-02-02 10:14 | Pulmonology Progress Note ---
Ivanna Mora SUPPLEMENTAL MANAGER 02/02/20 1014: Subjective ROS Limited/Unobtainable: Yes Allergies: Coded Allergies: CARBAMAZEPINE (Verified Allergy, Unknown, 12/31/19) LORAZEPAM (Verified Allergy, Unknown, 12/31/19) All Systems: reviewed and negative except above Subjective in [place] no signs of resp distress on current vent settings BP better , on Midodrine, off Dopamine gtt low grade fevers last night WBC up to 23.3 this am e/lyte abnormalities noted: low K. Mg. and P- already being replaced l s/p EGD 01/30- gastric ulceration without signs of visible bleeding Hgb 9.7 this am stool C dif a/b 01/30 NGT huge output from rectal tube 2400 ml from yesterday Objective Last 24 Hour Vital Signs Date Time Temp Pulse Resp B/P (MAP) Pulse Ox O2 Delivery O2 Flow Rate FiO2 02/02/20 08:13 97.9 80 20 94/44 (61) 100 80 02/02/20 08:00 30 02/02/20 07:10 70 21 30 02/02/20 04:39 81 02/02/20 04:00 30 02/02/20 04:00 97.9 80 24 97/52 (67) 100 02/02/20 02:34 79 22 30 02/01/20 23:53 99.3 84 27 87/49 (62) 100 02/01/20 23:42 80 02/01/20 22:58 100 28 30 02/01/20 21:37 98.1 02/01/20 20:00 82 02/01/20 20:00 30 02/01/20 20:00 100.9 80 26 95/52 (66) 97 02/01/20 18:53 82 27 30 02/01/20 16:00 30 02/01/20 16:00 99.9 99 35 92/46 (61) 100 02/01/20 16:00 105 02/01/20 14:45 98 27 30 02/01/20 12:00 82 02/01/20 12:00 99.5 81 25 111/56 (74) 100 02/01/20 12:00 30 02/01/20 10:36 69 27 30 Intake and Output 02/01/20 02/02/20 19:00 07:00 Intake Total 1610 ml 1530 ml Output Total 900 ml 1700 ml Balance 710 ml -170 ml Intake Free Water 50 ml IV Total 1300 ml 1000 ml Tube Feeding 310 ml 480 ml Output Urine Total 200 ml Stool Total 900 ml 1500 ml # Voids 1 1 Objective General Appearance: bedridden, pale, chronically ill looking, older than her biological age ; vent dependent female ; on vent SIMV 450-30%-12, PEEP 5 Lines, tubes and drains: trach HEENT: normocephalic, atraumatic Neck: trach - Portex #7, secretions small amount, yellow color, thin consistency Respiratory/Chest: CTAB Cardiovascular/Chest: regular rate, regular rhythm Abdomen: non tender, soft, G tube , rectal tube Genitourinary/Rectal: [place] Extremities: no edema, muscle atrophy Neurologic: abnormal gait, poorly responsive, eyes open spontaneously Musculoskeletal: atrophy BLE Skin: multiple tattoos Microbiology Date/Time Source Procedure Growth Status 01/31/20 16:40 Stool Clostridium difficile Toxin Assay - Final Complete Laboratory Tests 02/01/20 12:15: POC Whole Blood Glucose 84 02/01/20 17:25: POC Whole Blood Glucose 105 02/02/20 02:00: Urine Color Yellow, Urine Appearance Clear, Urine pH 6, Urine Specific [place] 1.015, Urine Protein 1+H, Urine Glucose (UA) Negative, Urine Ketones Negative, Urine Blood 1+H, Urine Nitrite Negative, Urine Bilirubin Negative, Urine Urobilinogen Normal, Urine Leukocyte Esterase 2+H, Urine RBC 0-2, Urine WBC 5- 10H, Urine Squamous Epithelial Cells Few, Urine Bacteria Few 02/02/20 03:10: White Blood Count 23.3#*H, Red Blood Count 3.18L, Hemoglobin 9.7L, Hematocrit 28.3L, Mean Corpuscular Volume 89, Mean Corpuscular Hemoglobin 30.7, Mean Corpuscular Hemoglobin Concent 34.4, Red Cell Distribution Width 15.0H, Platelet Count 264, Mean Platelet Volume 6.3L, Neutrophils (%) (Auto) , Lymphocytes (%) (Auto) , Monocytes (%) (Auto) , Eosinophils (%) (Auto) , Basophils (%) (Auto) , Differential Total Cells Counted 100, Neutrophils % (Manual) 73, Lymphocytes % (Manual) 6L, Monocytes % (Manual) 8, Eosinophils % (Manual) 1, Basophils % (Manual) 0, Band Neutrophils 12H, Platelet Estimate Adequate, Platelet Morphology Normal, Anisocytosis 1+, Sodium Level 141, Potassium Level 2.7*L, Chloride Level 108H, Carbon Dioxide Level 22, Anion Gap 12, Blood Urea Nitrogen 2L, Creatinine 0.4L, Estimat Glomerular Filtration Rate > 60, Glucose Level 119H , Calcium Level 7.1L, Phosphorus Level 1.6L, Magnesium Level 1.5L, Total Bilirubin 0.2, Direct Bilirubin 0.1, Aspartate Amino Transf (AST/SGOT) 33, Alanine Aminotransferase (ALT/SGPT) 17, Alkaline Phosphatase 53, Total Protein 4.2L, Albumin 1.6L Current Medications Medications (Trade) Dose Ordered Sig/Villa Route PRN Reason Start Time Stop Time Status Last Admin Dose Admin Acetaminophen (Tylenol) 650 mg Q4H PRN GT Temp >100.5 02/01/20 20:30 03/02/20 20:29 02/01/20 21:07 Ascorbic Acid (Vitamin C) 500 mg DAILY GT 01/28/20 09:30 02/27/20 09:29 02/02/20 09:24 Dextrose/Sodium Chloride 1,000 ml @ 100 mls/hr Q10H IV 01/29/20 13:00 02/27/20 12:59 02/02/20 06:06 Famotidine (Pepcid I.v.) 20 mg Q12HR IVP 01/29/20 21:00 02/28/20 20:59 02/02/20 09:25 Fidaxomicin (Dificid) 200 mg EVERY 12 HOURS ORAL 01/28/20 21:00 02/04/20 20:59 02/02/20 09:27 Gabapentin (Neurontin) 900 mg TID GT 01/28/20 09:30 02/19/20 09:29 02/02/20 09:24 Haloperidol Lactate (Haldol) 5 mg Q6H PRN IM Agitation 01/28/20 09:30 02/15/20 09:29 Levetiracetam (Keppra) 1,500 mg Q12HR GT 01/28/20 09:30 02/07/20 09:29 02/02/20 09:23 Levothyroxine Sodium (Synthroid) 50 mcg ACBREAKFAST GT 01/29/20 06:30 02/10/20 06:29 02/02/20 05:52 Metronidazole 100 ml @ 100 mls/hr Q8HR IVPB 01/28/20 22:00 02/04/20 21:59 02/02/20 05:24 Midodrine (Pro-Amatine) 10 mg TID GT 01/28/20 18:00 04/21/20 09:29 02/02/20 09:23 Multivitamins (Multivitamins W/ Minerals 15ml Liquid) 15 ml DAILY GT 01/28/20 09:30 02/27/20 09:29 02/02/20 09:24 Oxcarbazepine (TrileptaL) 300 mg BEDTIME GT 01/28/20 21:00 02/07/20 20:59 02/01/20 21:07 Pantoprazole (Protonix) 40 mg EVERY 12 HOURS IVP 01/31/20 09:30 03/01/20 09:29 02/02/20 09:25 Potassium Chloride 100 ml @ 100 mls/hr Q1HR IVPB 02/02/20 09:00 02/02/20 12:59 02/02/20 09:22 Potassium Chloride (K-Dur) 40 meq TWICE A DAY ORAL 02/02/20 18:00 05/02/20 17:59 Sucralfate (Carafate) 1 gm FOUR TIMES A DAY ORAL 01/30/20 09:00 04/29/20 08:59 02/02/20 09:23 Thiamine HCl (Vitamin B1) 100 mg DAILY GT 01/28/20 09:30 02/27/20 09:29 02/02/20 09:24 Assessment/Plan Assessment/Plan ASSESSMENT VDRF/trach status Sepsis Possible pneumonia UTI recurrent GI bleeding severe C dif colitis Anemia secondary to GI bleeding Aspiration risk Dysphagia, feeding by G-tube Encephalopathy Acute kidney injury likely secondary to dehydration Recurrent bradycardia persistent Hypotension Electrolyte imbalance Severe protein calorie malnutrition Hx of hypertension History of CVA Seizure disorder with witnessed seizure episode 01/07 Psychiatric disorder Presumed scabies, s/p Rx Thrombocytopenia-transient- resolved PLAN OF CARE J[place]NA off Dopamine gtt, BP better on IVF, vent support, pulm toilet ABG stable on current settings on SIMV mode 450-30-12 PEEP5 , no signs of resp distress on these settings keep settings as is and titrate as needed now tachypneic intermittently CXR 01/27 no acute disease pulm toilet via HHN CT chest 01/28 - with tree-in-bud nodular opacities in the medial left base and lingula with left bronchial bubbly material suggesting infectious or inflammatory bronchiolitis, likely due to aspiration. Small amount of similar foci seen in the right posterior lower lobe. Mild bronchiectasis and reticulation in the lingula, medial left base, and superior left upper lobe could also be due to chronic infection. leuk now up again, low grade fevers last night pancx-per ID CXR 01/13- no acute findings KUB 01/13- no acute findings UA + yeast , 01/12 UCX +yeast, started on Fluconazole 01/14 as per ID -completed BCX 01/12 NGTD BCX 01/26 and 01/27 NGTD UCX 01/27 + Klebs CR- no need for Rx as per ID ( as UA w/out pyuria) abx as per ID recs Vanco po was prior dc and switched to Dificid , also on Flagyl per GI -till 01/28 , both extended till 02/03 inflammatory markers : ESR-42, CRP- wnl WBC smear NGT C dif a/b 01/30 NGT huge output from rectal tube from yesterday - 2400 ml recorded this am 02/01 CT C/ A/P noted ( see results of CT chest above), CT A/P with findings most compatible with ileus and probable infectious or inflammatory enteritis or enterocolitis. off cefepime rapid COVID 19 NGT in ED aspiration precautions Venous Duplex BLE -negative, get SCD ( unable to give a/c given anemia) closely monitor hemodynamic status heme and GI follows s/p prior EGD 01/01 -> gastric ulcer across G tube site , no active bleeding s/p EGD 01/30 -> gastric ulceration without visible bleeding Protonix IV bid ( changed from Protonix gtt), Carafate GT feeding resumed as per GI , s/p blood tx 01/30 stool OB positive , another pending transfuse to keep Hgb > 7. HH at baseline trend LFT-> trended down, hep panel NGT hx of cirrhosis- per GI management monitor renal parameters, lytes, avoid nephrotoxic IVF BUN trending down, creat stable, likely prerenal due to dehydration replace e/lytes as per nephro recs , K , P and Mg replaced this am as per nephro monitor volumes seizure precautions, antiepileptic optimized as per neuro recs ammonia 49, fup with further neuro recs EEG - grossly abnormal; mild to mod encephalopathy, single ictal episode CT head no acute IC pathology BP management with current regimen SNF meds supportive care dietary recs s/p 12/31 Rx for presumed scabies with permethrin and Ivermectin, repeated Ivermectin 01/08 case discussed and evaluated by supervising physician Jeyson Anderson MD 02/02/20 1511: Subjective Allergies: Coded Allergies: CARBAMAZEPINE (Verified Allergy, Unknown, 12/31/19) LORAZEPAM (Verified Allergy, Unknown, 12/31/19) Assessment/Plan Assessment/Plan Patient seen and examined with SUPPLEMENTAL MANAGER and I agree with the above formulated assessment and plan. Ivanna Mora NP Feb 02, 2020 10:14 Jeyson Anderson MD Feb 02, 2020 15:11
--- NOTE | 2020-02-02 11:12 | General Progress Note ---
Subjective ROS Limited/Unobtainable: No Allergies: Coded Allergies: CARBAMAZEPINE (Verified Allergy, Unknown, 12/31/19) LORAZEPAM (Verified Allergy, Unknown, 12/31/19) Objective Last 24 Hour Vital Signs Date Time Temp Pulse Resp B/P (MAP) Pulse Ox O2 Delivery O2 Flow Rate FiO2 02/02/20 08:13 97.9 80 20 94/44 (61) 100 80 02/02/20 08:00 30 02/02/20 07:56 71 02/02/20 07:10 70 21 30 02/02/20 04:39 81 02/02/20 04:00 30 02/02/20 04:00 97.9 80 24 97/52 (67) 100 02/02/20 02:34 79 22 30 02/01/20 23:53 99.3 84 27 87/49 (62) 100 02/01/20 23:42 80 02/01/20 22:58 100 28 30 02/01/20 21:37 98.1 02/01/20 20:00 82 02/01/20 20:00 30 02/01/20 20:00 100.9 80 26 95/52 (66) 97 02/01/20 18:53 82 27 30 02/01/20 16:00 30 02/01/20 16:00 99.9 99 35 92/46 (61) 100 02/01/20 16:00 105 02/01/20 14:45 98 27 30 02/01/20 12:00 82 02/01/20 12:00 99.5 81 25 111/56 (74) 100 02/01/20 12:00 30 Intake and Output 02/01/20 02/02/20 19:00 07:00 Intake Total 1610 ml 1530 ml Output Total 900 ml 1700 ml Balance 710 ml -170 ml Intake Free Water 50 ml IV Total 1300 ml 1000 ml Tube Feeding 310 ml 480 ml Output Urine Total 200 ml Stool Total 900 ml 1500 ml # Voids 1 1 Laboratory Tests 02/01/20 12:15: POC Whole Blood Glucose 84 02/01/20 17:25: POC Whole Blood Glucose 105 02/02/20 02:00: Urine Color Yellow, Urine Appearance Clear, Urine pH 6, Urine Specific [place] 1.015, Urine Protein 1+H, Urine Glucose (UA) Negative, Urine Ketones Negative, Urine Blood 1+H, Urine Nitrite Negative, Urine Bilirubin Negative, Urine Urobilinogen Normal, Urine Leukocyte Esterase 2+H, Urine RBC 0-2, Urine WBC 5- 10H, Urine Squamous Epithelial Cells Few, Urine Bacteria Few 02/02/20 03:10: White Blood Count 23.3#*H, Red Blood Count 3.18L, Hemoglobin 9.7L, Hematocrit 28.3L, Mean Corpuscular Volume 89, Mean Corpuscular Hemoglobin 30.7, Mean Corpuscular Hemoglobin Concent 34.4, Red Cell Distribution Width 15.0H, Platelet Count 264, Mean Platelet Volume 6.3L, Neutrophils (%) (Auto) , Lymphocytes (%) (Auto) , Monocytes (%) (Auto) , Eosinophils (%) (Auto) , Basophils (%) (Auto) , Differential Total Cells Counted 100, Neutrophils % (Manual) 73, Lymphocytes % (Manual) 6L, Monocytes % (Manual) 8, Eosinophils % (Manual) 1, Basophils % (Manual) 0, Band Neutrophils 12H, Platelet Estimate Adequate, Platelet Morphology Normal, Anisocytosis 1+, Sodium Level 141, Potassium Level 2.7*L, Chloride Level 108H, Carbon Dioxide Level 22, Anion Gap 12, Blood Urea Nitrogen 2L, Creatinine 0.4L, Estimat Glomerular Filtration Rate > 60, Glucose Level 119H , Calcium Level 7.1L, Phosphorus Level 1.6L, Magnesium Level 1.5L, Total Bilirubin 0.2, Direct Bilirubin 0.1, Aspartate Amino Transf (AST/SGOT) 33, Alanine Aminotransferase (ALT/SGPT) 17, Alkaline Phosphatase 53, Total Protein 4.2L, Albumin 1.6L Height (Feet): 5 Height (Inches): 1.00 Weight (Pounds): 81 General Appearance: lethargic EENT: normal ENT inspection Neck: supple Cardiovascular: normal rate, gallop/S3 Abdomen: hypoactive bowel sounds Extremities: non-tender Assessment/Plan Problem List: (1) G tube feedings ICD Codes: Z93.1 - Gastrostomy status SNOMED: 948258897, 972040577, 641271383 (2) GI bleed ICD Codes: K92.2 - Gastrointestinal hemorrhage, unspecified SNOMED: 55260692 (3) Sepsis ICD Codes: A41.9 - Sepsis, unspecified organism SNOMED: 44523851 (4) Pneumonia ICD Codes: J18.9 - Pneumonia, unspecified organism SNOMED: 192605655 Status: stable, other - Patient is now hypotensive before over 46 she will receive 500 cc of normal saline bolus to be repeated blood pressure remained below 90 further management will be decided following the boluses treatment repeat laboratory tests will be done in a.m. GEM MCKAY MD Assessment/Plan: s/p EGD gastric ulcer monitor H&H C. Diff positive po dificid famotidine IV carafate and ppi will fu Satish Carrillo MD Feb 02, 2020 11:12
--- NOTE | 2020-02-02 11:43 | Surgery Progress Note ---
Surgery Progress Note Subjective Additional Comments repeat c diff negative acute leukocytosis micro reviewed exam unchanged Objective Last 24 Hour Vital Signs Date Time Temp Pulse Resp B/P (MAP) Pulse Ox O2 Delivery O2 Flow Rate FiO2 02/02/20 09:00 100 02/02/20 08:13 97.9 80 20 94/44 (61) 100 80 02/02/20 08:00 30 02/02/20 07:56 71 02/02/20 07:10 70 21 30 02/02/20 04:39 81 02/02/20 04:00 30 02/02/20 04:00 97.9 80 24 97/52 (67) 100 02/02/20 02:34 79 22 30 02/01/20 23:53 99.3 84 27 87/49 (62) 100 02/01/20 23:42 80 02/01/20 22:58 100 28 30 02/01/20 21:37 98.1 02/01/20 20:00 82 02/01/20 20:00 30 02/01/20 20:00 100.9 80 26 95/52 (66) 97 02/01/20 18:53 82 27 30 02/01/20 16:00 30 02/01/20 16:00 99.9 99 35 92/46 (61) 100 02/01/20 16:00 105 02/01/20 14:45 98 27 30 02/01/20 12:00 82 02/01/20 12:00 99.5 81 25 111/56 (74) 100 02/01/20 12:00 30 I&O Intake and Output 02/01/20 02/02/20 19:00 07:00 Intake Total 1610 ml 1530 ml Output Total 900 ml 1700 ml Balance 710 ml -170 ml Intake Free Water 50 ml IV Total 1300 ml 1000 ml Tube Feeding 310 ml 480 ml Output Urine Total 200 ml Stool Total 900 ml 1500 ml # Voids 1 1 Dressing: other Wound: other Cardiovascular: RSR Respiratory: decreased breath sounds Abdomen: soft, non-tender, present bowel sounds Extremities: no tenderness, no cyanosis Laboratory Tests Test 02/01/20 12:15 02/01/20 17:25 02/02/20 02:00 02/02/20 03:10 POC Whole Blood Glucose 84 MG/DL (74-106) 105 MG/DL (74-106) Urine Color Yellow Urine Appearance Clear Urine pH 6 (4.5-8.0) Urine Specific [place] 1.015 (1.005-1.035) Urine Protein 1+ (NEGATIVE) H Urine Glucose (UA) Negative (NEGATIVE) Urine Ketones Negative (NEGATIVE) Urine Blood 1+ (NEGATIVE) H Urine Nitrite Negative (NEGATIVE) Urine Bilirubin Negative (NEGATIVE) Urine Urobilinogen Normal MG/DL (0.0-1.0) Urine Leukocyte Esterase 2+ (NEGATIVE) H Urine RBC 0-2 /HPF (0 - 2) Urine WBC 5-10 /HPF (0 - 2) H Urine Squamous Epithelial Cells Few /LPF (NONE/OCC) Urine Bacteria Few /HPF (NONE) White Blood Count 23.3 K/UL (4.8-10.8) #*H Red Blood Count 3.18 M/UL (4.20-5.40) L Hemoglobin 9.7 G/DL (12.0-16.0) L Hematocrit 28.3 % (37.0-47.0) L Mean Corpuscular Volume 89 FL (80-99) Mean Corpuscular Hemoglobin 30.7 PG (27.0-31.0) Mean Corpuscular Hemoglobin Concent 34.4 G/DL (32.0-36.0) Red Cell Distribution Width 15.0 % (11.6-14.8) H Platelet Count 264 K/UL (150-450) Mean Platelet Volume 6.3 FL (6.5-10.1) L Neutrophils (%) (Auto) % (45.0-75.0) Lymphocytes (%) (Auto) % (20.0-45.0) Monocytes (%) (Auto) % (1.0-10.0) Eosinophils (%) (Auto) % (0.0-3.0) Basophils (%) (Auto) % (0.0-2.0) Differential Total Cells Counted 100 Neutrophils % (Manual) 73 % (45-75) Lymphocytes % (Manual) 6 % (20-45) L Monocytes % (Manual) 8 % (1-10) Eosinophils % (Manual) 1 % (0-3) Basophils % (Manual) 0 % (0-2) Band Neutrophils 12 % (0-8) H Platelet Estimate Adequate Platelet Morphology Normal Anisocytosis 1+ Sodium Level 141 MMOL/L (136-145) Potassium Level 2.7 MMOL/L (3.5-5.1) *L Chloride Level 108 MMOL/L (98-107) H Carbon Dioxide Level 22 MMOL/L (21-32) Anion Gap 12 mmol/L (5-15) Blood Urea Nitrogen 2 mg/dL (7-18) L Creatinine 0.4 MG/DL (0.55-1.30) L Estimat Glomerular Filtration Rate > 60 mL/min (>60) Glucose Level 119 MG/DL (74-106) H Calcium Level 7.1 MG/DL (8.5-10.1) L Phosphorus Level 1.6 MG/DL (2.5-4.9) L Magnesium Level 1.5 MG/DL (1.8-2.4) L Total Bilirubin 0.2 MG/DL (0.2-1.0) Direct Bilirubin 0.1 MG/DL (0.0-0.3) Aspartate Amino Transf (AST/SGOT) 33 U/L (15-37) Alanine Aminotransferase (ALT/SGPT) 17 U/L (12-78) Alkaline Phosphatase 53 U/L (46-116) Total Protein 4.2 G/DL (6.4-8.2) L Albumin 1.6 G/DL (3.4-5.0) L Plan Problems: (1) Pneumonia (2) Sepsis Assessment & Plan: leukocytosis anemia lactic acidosis agree with GI recommend EGD planned for 12/31 hold feeding for now trend h/h monitor for bleeding no acute hemorrhage will be available in event needs exploration for hemostasis prbc as per heme thank you will follow with recs cont abx worsening wbc wbc trending down comfortable appearing no n/v hypotensive in ICU again worse pending CT results - noted PICC ordered improving wbc improved labs and micro trending Pt presented on admission in emaciated state. Pt has tracheostomy and GT. NO skin concerns noted to skin under collar of trach. NO erythema or evidence of skin erosion at GT site. Pt noted to have scaly pimple-like rash with webbing noted to R and L axillae, undersides of both breasts, Bilat groin and lower back. Tracking and webbing noted to hands and feet. Pt restless and scratching at skin. Non-Blanching erythema without induration or fluctuance noted to R and L hips and trochanteric areas.Non-blanching erythema noted along spine. Non-Blanching erythema without induration noted to Sacrum. Non-Blanching erythema noted to R and L Malleoli and both heels. Tx.Plan: Please apply Cavilon Skin Barrier to each bony Prominences at risks for Skin Breakdown. Cover each area with Optifoam drsgs. Change every 7 days and prn. Apply Moisture Barrier Paste to Sacrum. Cover with Optifoam drsg. Change every 3 days and prn. Reposition at least every 2hours or as tolerated. Off-load heels with pillow. APM/EMELI Mattress overlay. improving cont current care plan There is marked enlargement of the third and lateral ventricles and extra axial CSF spaces, in particular the former. There is considerable periventricular deep white matter low-attenuation. Otherwise normal mobley-white differentiation. No acute hemorrhage or edema. No mass effect nor midline shift. Visualized orbits and sinuses are unremarkable. The calvarium is intact Impression: Third and lateral ventriculomegaly. Associated enlargement of the extra axial CSF spaces indicates that this is probably due to central volume loss, but the possibility of hydrocephalus should also be considered. At the degree of volume loss is considerably out of proportion to patient's age. Correlate with clinical history Periventricular deep white matter low-attenuation. Probably on the basis of microvascular ischemic change but given patient's age the possibility of demyelinating disease should be considered as well. Negative for acute intracranial bleed or mass effect ABDOMEN: Liver: Unremarkable. Gallbladder and bile ducts: Cholecystectomy. No ductal dilation. Pancreas: Unremarkable. No ductal dilation. Spleen: Unremarkable. No splenomegaly. Adrenals: Unremarkable. No mass. Kidneys and ureters: Unremarkable. No obstructing stones. No hydronephrosis. Stomach and bowel: Operative bowel findings. Diffuse small bowel wall thickening with areas of distention and fluid-filled colonic loops. No clear focal transition point to suggest small bowel obstruction. PELVIS: Appendix: Appendix not identified. Bladder: Urinary bladder wall thickening could be incidental, due to high outlet pressures, or could represent cystitis. No stones. Reproductive: Unremarkable as visualized. ABDOMEN and PELVIS: Intraperitoneal space: Large low-attenuation pelvic fluid of uncertain significance, potentially reactive. No free air. Bones/joints: No acute fracture. No dislocation. Soft tissues: Bilateral buttock injection granulomas. Vasculature: Unremarkable. No abdominal aortic aneurysm. Lymph nodes: Unremarkable. No enlarged lymph nodes. Tubes, lines and devices: Percutaneous gastrostomy tube adequately positioned in the stomach. Rectal tube. Other findings: No perforation seen. IMPRESSION: 1. Study substantially limited due to lack of IV contrast. 2. Findings most compatible with ileus and probable infectious or inflammatory enteritis or enterocolitis. 3. Large low-attenuation pelvic fluid of uncertain significance, potentially reactive. 4. Appendix not identified. 5. Percutaneous gastrostomy tube adequately positioned in the stomach. Rectal tube. 6. Urinary bladder wall thickening could be incidental, due to high outlet pressures, or could represent cystitis. 7. Cholecystectomy. (3) GI bleed (4) G tube feedings Assessment & Plan: DAILY ESTIMATED NEEDS: Needs based on Underweight, critical care 37.3kg 30-40 kcals/kg 5160-8237 total kcals 1.25-2 g protein/kg 47-75 g total protein 25-35 mL/kg 933-1306 total fluid mLs NUTRITION DIAGNOSIS: Increased kcal and pro needs r/t underweight status as evidenced by BMI 14.1, pt is 68% of ideal body weight w/ generalized severe wasting, trach and peg dep. CURRENT TF:Vital AF 1.2 @55 x20 hrs ENTERAL NUTRITION RECOMMENDATIONS: Vital AF 1.2 @ 55ml/hr x20 hrs to provide 1100ml 1320kcal 83g prot, 892ml free water - Rec to continue elemental TF formula while stool C-diff positive, +LBM - HOLD 1HR BEFORE AND AFTER SYNTHROID MEDS - Flush per MD. HOB over 30 degrees ADDITIONAL RECOMMENDATIONS: 1) Per SNF: 5'4" and 81# Maintain calibrated bed scale wts w/ added P200 mattress 2) Lytes daily madhav w/ loose stools, replete as needed 3) Skin integrity: Continue BRIAN VIA GT BID + Vit C 4) Accuchecks for Hypoglycemia 5) Add probiotics for stool C-diff+ . George Woods Feb 02, 2020 11:43
[2020-02-02 11:44] VITALS: BP 92/50
--- NOTE | 2020-02-02 13:55 | Nephrology Progress Note ---
Assessment/Plan Problem List: (1) RICHARD (acute kidney injury) (2) Dehydration (3) Anemia (4) GI bleed (5) Malnutrition (6) Seizure disorder (7) Electrolyte imbalance Assessment Renal failure, in the form of prerenal azotemia, most likely secondary to GI bleed GI bleed, leading to severe anemia Sepsis, pneumonia Chronic tracheostomy, ventilator dependent History of CVA History of seizure disorder History of psychiatric disorder Severe malnutrition Electrolyte abnormalities Plan February 01: Lab reviewed. Low phosphorus and low magnesium replaced. Low potassium replaced. Continue to monitor electrolytes. Continue per consultants. January 31: Lab reviewed. Hemoglobin higher. Renal parameters stable. Potassium and phosphorus supplement given. January 30: Labs reviewed. Low mag low phosphorus and low potassium replaced. White blood cells 16,000 today. Remains full code. Continue to monitor hemoglobin and hematocrit and electrolytes. January 29: Labs reviewed. Magnesium, potassium, phosphorus supplement given. White blood cells down to 22,000. Remains full code. Continue per consultants. RN reports rectal bleed. Hemoglobin drifting down. Defer management to filter cloth maker who is already on the case. January 28: Status quo. Electrolyte abnormalities noted. Mag Phos and potassium supplement IV given. Renal parameters stable. Continue per consultants. Leukocytosis persists. January 27: Significant rise in white blood cell counts. Hypotensive. Now in ICU. Will give albumin bolus. Continue to monitor renal parameters. Continue per ID advice. January 26: Continue to monitor renal parameters. Patient remains on ventilator. Patient is full code. Continue per consultants. January 25: Status quo. Labs reviewed. Continue per consultants. January 24: Status unchanged. Labs reviewed. Remains stable from renal standpoint of view. January 23: Back in [facility]. Stable from renal standpoint of view. Continue per consultants. January 22: Patient in ICU now. Vital signs and heart rate and blood pressure appears to be stable. Patient had an episode of bradycardia but it was resolved. TSH level today is very low will cut down on Synthroid dose. January 21: Today's labs are reviewed. Stable renal parameters. Continue per consultants. January 20: Labs reviewed. Renal parameters stable. January 19: Labs reviewed. Stable from renal standpoint. January 18: No labs done today. Continue per consultants. Medications reviewed. January 17: Late note entry [place] [facility] [place]Chemistry panel reviewed. Stable from renal standpoint of view. Continue per current management. January 16: No can panel today. Check lab tomorrow. Remains stable from renal standpoint of view. January 15: Lab reviewed. Renal parameters stable. January 14: Lab reviewed. Renal parameters stable. January 13: Labs reviewed. Stable from renal standpoint of view. January 12: Labs reviewed. Stable from renal standpoint of view January 11: No labs drawn today stable from renal standpoint of view January 10: Labs reviewed. Potassium supplement given. Continue per consultants. January 09: Lab reviewed. Potassium supplement given. IV fluid discontinued. January 08: Lab reviewed. Renal parameters stable. Continue per consultants. January 07: Lab reviewed. Renal parameters stable. Continue per consultants. January 06: Lab reviewed. Stable from renal standpoint of view. January 05: Labs reviewed. Stable from renal standpoint of view. Continue per consultants. January 04: No labs drawn today. Will check labs tomorrow. Continue per consultants. January 03: Lab reviewed. Renal parameters stable. IV fluid discontinued. High LFTs declining. Continue same. January 02: Lab reviewed. Renal parameters stable. Continue per PMD and consultants. LFTs remain elevated. Continue to monitor. Continue slow hydration Discontinue blood pressure medications as her blood pressure is low Discontinue diuretics Monitor renal parameters Transfusion as needed GI evaluation Correct electrolyte abnormalities Check B12 level, folate, and thyroid function tests: Results noted Subjective ROS Limited/Unobtainable: Yes Objective Objective Last 24 Hour Vital Signs Date Time Temp Pulse Resp B/P (MAP) Pulse Ox O2 Delivery O2 Flow Rate FiO2 02/02/20 12:00 66 02/02/20 12:00 30 02/02/20 11:44 97.5 67 19 92/50 (64) 100 67 02/02/20 11:00 63 21 30 02/02/20 09:00 100 02/02/20 08:13 97.9 80 20 94/44 (61) 100 80 02/02/20 08:00 30 02/02/20 07:56 71 02/02/20 07:10 70 21 30 02/02/20 04:39 81 02/02/20 04:00 30 02/02/20 04:00 97.9 80 24 97/52 (67) 100 02/02/20 02:34 79 22 30 02/01/20 23:53 99.3 84 27 87/49 (62) 100 02/01/20 23:42 80 02/01/20 22:58 100 28 30 02/01/20 21:37 98.1 02/01/20 20:00 82 02/01/20 20:00 30 02/01/20 20:00 100.9 80 26 95/52 (66) 97 02/01/20 18:53 82 27 30 02/01/20 16:00 30 02/01/20 16:00 99.9 99 35 92/46 (61) 100 02/01/20 16:00 105 02/01/20 14:45 98 27 30 Intake and Output 02/01/20 02/02/20 19:00 07:00 Intake Total 1610 ml 1530 ml Output Total 900 ml 1700 ml Balance 710 ml -170 ml Intake Free Water 50 ml IV Total 1300 ml 1000 ml Tube Feeding 310 ml 480 ml Output Urine Total 200 ml Stool Total 900 ml 1500 ml # Voids 1 1 Laboratory Tests 02/01/20 17:25: POC Whole Blood Glucose 105 02/02/20 02:00: Urine Color Yellow, Urine Appearance Clear, Urine pH 6, Urine Specific [place] 1.015, Urine Protein 1+H, Urine Glucose (UA) Negative, Urine Ketones Negative, Urine Blood 1+H, Urine Nitrite Negative, Urine Bilirubin Negative, Urine Urobilinogen Normal, Urine Leukocyte Esterase 2+H, Urine RBC 0-2, Urine WBC 5- 10H, Urine Squamous Epithelial Cells Few, Urine Bacteria Few 02/02/20 03:10: White Blood Count 23.3#*H, Red Blood Count 3.18L, Hemoglobin 9.7L, Hematocrit 28.3L, Mean Corpuscular Volume 89, Mean Corpuscular Hemoglobin 30.7, Mean Corpuscular Hemoglobin Concent 34.4, Red Cell Distribution Width 15.0H, Platelet Count 264, Mean Platelet Volume 6.3L, Neutrophils (%) (Auto) , Lymphocytes (%) (Auto) , Monocytes (%) (Auto) , Eosinophils (%) (Auto) , Basophils (%) (Auto) , Differential Total Cells Counted 100, Neutrophils % (Manual) 73, Lymphocytes % (Manual) 6L, Monocytes % (Manual) 8, Eosinophils % (Manual) 1, Basophils % (Manual) 0, Band Neutrophils 12H, Platelet Estimate Adequate, Platelet Morphology Normal, Anisocytosis 1+, Sodium Level 141, Potassium Level 2.7*L, Chloride Level 108H, Carbon Dioxide Level 22, Anion Gap 12, Blood Urea Nitrogen 2L, Creatinine 0.4L, Estimat Glomerular Filtration Rate > 60, Glucose Level 119H , Calcium Level 7.1L, Phosphorus Level 1.6L, Magnesium Level 1.5L, Total Bilirubin 0.2, Direct Bilirubin 0.1, Aspartate Amino Transf (AST/SGOT) 33, Alanine Aminotransferase (ALT/SGPT) 17, Alkaline Phosphatase 53, Total Protein 4.2L, Albumin 1.6L 02/02/20 12:12: POC Whole Blood Glucose 91 Height (Feet): 5 Height (Inches): 1.00 Weight (Pounds): 81 General Appearance: no apparent distress, lethargic EENT: other - Trach to vent Cardiovascular: normal rate Respiratory/Chest: decreased breath sounds Abdomen: soft, distended Objective No change Chivo Holloway MD Feb 02, 2020 13:55
[2020-02-02 16:00] VITALS: BP 123/64
--- NOTE | 2020-02-02 16:22 | Diagnostic Imaging Report ---
Indication: Reason For Exam: F/U Technique: Single AP view of the chest. Comparison: Chest radiograph dated 01/29/2020 Findings: The cardiomediastinal silhouette is unchanged in appearance. Demonstration of interstitial reticulation in the left midlung and apex with associated midlung bronchiectasis, corresponding to findings on comparison CT. Interval development of patchy retrocardiac opacities. No pneumothorax. No increasing pleural effusion. No acute osseous abnormality. Unchanged cannulated tracheostomy. IMPRESSION: Interval development of retrocardiac airspace opacities which could represent atelectasis versus developing consolidation.
--- NOTE | 2020-02-02 16:56 | Infectious Diseases Prog Note ---
Assessment/Plan 39yo F with: Severe Sepsis Fever, recurrent; improving Leukocytosis; recurrent; increased again UTI -02/01 CXR: Interval development of retrocardiac airspace opacities which could represent atelectasis versus developing consolidation. u/a wbc 5-10, nit neg, leuk +2; ucx -01/28 CXR: Subtle reticular nodular opacities in the left apex which may be related to scarring versus acute small airway disease/bronchitis CT c/abd/p wo: Study substantially limited due to lack of IV contrast. Findings most compatible with ileus and probable infectious or inflammatory enteritis or enterocolitis. Large low-attenuation pelvic fluid of uncertain significance, potentially reactive.Appendix not identified. Percutaneous gastrostomy tube adequately positioned in the stomach. Rectal tube. Urinary bladder wall thickening could be incidental, due to high outlet pressures, or could represent cystitis.Cholecystectomy. -01/27 u/a no pyuria, nit +, leuk +3; ucx >100k CRE K, pna (S Gentamycin) CXR: no acute disease Bc xNTD -01/26 Bcx NTD -01/13 CXR: no acute disease -01/12 u/a wbc tnct, nit neg, latrell +3; ucx >100k C. tropicalis Bcx NTD Severe Cdiff colitis -01/30 Cdif toxin a/b neg -01/06 Cdif toxin + 01/27 KUB:Severely dilated small bowel loop in the central abdomen could reflect obstruction. Diffusely fluid distended colon. -01/13 KUB: no acute findings Recurrent GIB 01/06 u/aneg 12/30 BCx 1/2 +CONS, likely contaminant 12/30 UA neg, COVID rapid Ag neg 12/30 CXR 1. Density overlying the bilateral lung apices. May represent pleural thickening, multifocal airspace opacities, versus summation artifact. 01/01 BCx Neg 01/02 BCx Neg Acute blood loss anemia Possible pna on CXR, sp rx Seizure episode -01/10 CT head: Third and lateral ventriculomegaly. Associated enlargement of the extra axial CSF spaces indicates that this is probably due to central volume loss, but the possibility of hydrocephalus should also be considered. At the degree of volume loss is considerably out of proportion to patient's age. Periventricular deep white matter low-attenuation. Probably on the basis of microvascular ischemic change but given patient's age the possibility of demyelinating disease should be considered as well. Negative for acute intracranial bleed or mass effect Possible Scabies SP tx w/ Permethrin and Ivermectin 12/31 R/o DVT: None on US 12/30 MRSA nares neg Recurrent GIBs, FOBT+ Hepatic encephalopathy, chronic S/p Trach/PEG Resides at SNF VRE and CRE colonized Plan: PO Dificid # as failing PO Vancomycin Flagyl Start IV Gentamicin for UTI given recurrent fever and leukocytosis 01/30 SP Cefepime #4 01/29 SP IV Vancomycin #3 01/19/20 SP fluconazole #5 01/15 SP PO Vancomycin #8 01/08 SP Ceftriaxone #7 01/02 SP vanco #2, Zosyn #2 SP 2nd dose of ivermectin (01/08) Monitor CBC/CMP Monitor resp status Monitor temp and hemodynamics Cdiff contact isolation until diarrhea free for 48hrs f/u repaet cultures GI, GEn sx, pulm f/u D/w RN Thank you for this consult. [facility] will continue to follow. Subjective Allergies: Coded Allergies: CARBAMAZEPINE (Verified Allergy, Unknown, 12/31/19) LORAZEPAM (Verified Allergy, Unknown, 12/31/19) afebrile >24hrs wbc improving Bcx NTD ucx grew CRE stool output increased Objective Last 24 Hour Vital Signs Date Time Temp Pulse Resp B/P (MAP) Pulse Ox O2 Delivery O2 Flow Rate FiO2 02/02/20 16:00 30 02/02/20 16:00 98.2 71 18 123/64 (83) 99 71 02/02/20 15:10 67 19 30 02/02/20 12:00 66 02/02/20 12:00 30 02/02/20 11:44 97.5 67 19 92/50 (64) 100 67 02/02/20 11:00 63 21 30 02/02/20 09:00 100 02/02/20 08:13 97.9 80 20 94/44 (61) 100 80 02/02/20 08:00 30 02/02/20 07:56 71 02/02/20 07:10 70 21 30 02/02/20 04:39 81 02/02/20 04:00 30 02/02/20 04:00 97.9 80 24 97/52 (67) 100 02/02/20 02:34 79 22 30 02/01/20 23:53 99.3 84 27 87/49 (62) 100 02/01/20 23:42 80 02/01/20 22:58 100 28 30 02/01/20 21:37 98.1 02/01/20 20:00 82 02/01/20 20:00 30 02/01/20 20:00 100.9 80 26 95/52 (66) 97 02/01/20 18:53 82 27 30 Height (Feet): 5 Height (Inches): 1.00 Weight (Pounds): 81 General Appearance: no apparent distress Neck: supple Cardiovascular: normal rate Respiratory/Chest: decreased breath sounds Abdomen: hypoactive bowel sounds Extremities: non-tender Microbiology Date/Time Source Procedure Growth Status 01/31/20 16:40 Stool Clostridium difficile Toxin Assay - Final Complete Laboratory Tests Test 02/01/20 17:25 02/02/20 02:00 02/02/20 03:10 02/02/20 12:12 POC Whole Blood Glucose 105 MG/DL (74-106) 91 MG/DL (74-106) Urine Color Yellow Urine Appearance Clear Urine pH 6 (4.5-8.0) Urine Specific [place] 1.015 (1.005-1.035) Urine Protein 1+ (NEGATIVE) H Urine Glucose (UA) Negative (NEGATIVE) Urine Ketones Negative (NEGATIVE) Urine Blood 1+ (NEGATIVE) H Urine Nitrite Negative (NEGATIVE) Urine Bilirubin Negative (NEGATIVE) Urine Urobilinogen Normal MG/DL (0.0-1.0) Urine Leukocyte Esterase 2+ (NEGATIVE) H Urine RBC 0-2 /HPF (0 - 2) Urine WBC 5-10 /HPF (0 - 2) H Urine Squamous Epithelial Cells Few /LPF (NONE/OCC) Urine Bacteria Few /HPF (NONE) White Blood Count 23.3 K/UL (4.8-10.8) #*H Red Blood Count 3.18 M/UL (4.20-5.40) L Hemoglobin 9.7 G/DL (12.0-16.0) L Hematocrit 28.3 % (37.0-47.0) L Mean Corpuscular Volume 89 FL (80-99) Mean Corpuscular Hemoglobin 30.7 PG (27.0-31.0) Mean Corpuscular Hemoglobin Concent 34.4 G/DL (32.0-36.0) Red Cell Distribution Width 15.0 % (11.6-14.8) H Platelet Count 264 K/UL (150-450) Mean Platelet Volume 6.3 FL (6.5-10.1) L Neutrophils (%) (Auto) % (45.0-75.0) Lymphocytes (%) (Auto) % (20.0-45.0) Monocytes (%) (Auto) % (1.0-10.0) Eosinophils (%) (Auto) % (0.0-3.0) Basophils (%) (Auto) % (0.0-2.0) Differential Total Cells Counted 100 Neutrophils % (Manual) 73 % (45-75) Lymphocytes % (Manual) 6 % (20-45) L Monocytes % (Manual) 8 % (1-10) Eosinophils % (Manual) 1 % (0-3) Basophils % (Manual) 0 % (0-2) Band Neutrophils 12 % (0-8) H Platelet Estimate Adequate Platelet Morphology Normal Anisocytosis 1+ Sodium Level 141 MMOL/L (136-145) Potassium Level 2.7 MMOL/L (3.5-5.1) *L Chloride Level 108 MMOL/L (98-107) H Carbon Dioxide Level 22 MMOL/L (21-32) Anion Gap 12 mmol/L (5-15) Blood Urea Nitrogen 2 mg/dL (7-18) L Creatinine 0.4 MG/DL (0.55-1.30) L Estimat Glomerular Filtration Rate > 60 mL/min (>60) Glucose Level 119 MG/DL (74-106) H Calcium Level 7.1 MG/DL (8.5-10.1) L Phosphorus Level 1.6 MG/DL (2.5-4.9) L Magnesium Level 1.5 MG/DL (1.8-2.4) L Total Bilirubin 0.2 MG/DL (0.2-1.0) Direct Bilirubin 0.1 MG/DL (0.0-0.3) Aspartate Amino Transf (AST/SGOT) 33 U/L (15-37) Alanine Aminotransferase (ALT/SGPT) 17 U/L (12-78) Alkaline Phosphatase 53 U/L (46-116) Total Protein 4.2 G/DL (6.4-8.2) L Albumin 1.6 G/DL (3.4-5.0) L Current Medications Medications (Trade) Dose Ordered Sig/Villa Route PRN Reason Start Time Stop Time Status Last Admin Dose Admin Acetaminophen (Tylenol) 650 mg Q4H PRN GT Temp >100.5 02/01/20 20:30 03/02/20 20:29 02/01/20 21:07 Ascorbic Acid (Vitamin C) 500 mg DAILY GT 01/28/20 09:30 02/27/20 09:29 02/02/20 09:24 Dextrose/Sodium Chloride 1,000 ml @ 75 mls/hr [id number] IV 01/29/20 13:00 02/27/20 12:59 02/02/20 06:06 Famotidine (Pepcid I.v.) 20 mg Q12HR IVP 01/29/20 21:00 02/28/20 20:59 02/02/20 09:25 Fidaxomicin (Dificid) 200 mg EVERY 12 HOURS ORAL 01/28/20 21:00 02/04/20 20:59 02/02/20 09:27 Gabapentin (Neurontin) 900 mg TID GT 01/28/20 09:30 02/19/20 09:29 02/02/20 12:46 Haloperidol Lactate (Haldol) 5 mg Q6H PRN IM Agitation 01/28/20 09:30 02/15/20 09:29 Levetiracetam (Keppra) 1,500 mg Q12HR GT 01/28/20 09:30 02/07/20 09:29 02/02/20 09:23 Levothyroxine Sodium (Synthroid) 50 mcg ACBREAKFAST GT 01/29/20 06:30 02/10/20 06:29 02/02/20 05:52 Metronidazole 100 ml @ 100 mls/hr Q8HR IVPB 01/28/20 22:00 02/04/20 21:59 02/02/20 13:50 Midodrine (Pro-Amatine) 10 mg TID GT 01/28/20 18:00 04/21/20 09:29 02/02/20 12:46 Multivitamins (Multivitamins W/ Minerals 15ml Liquid) 15 ml DAILY GT 01/28/20 09:30 02/27/20 09:29 02/02/20 09:24 Oxcarbazepine (TrileptaL) 300 mg BEDTIME GT 01/28/20 21:00 02/07/20 20:59 02/01/20 21:07 Pantoprazole (Protonix) 40 mg EVERY 12 HOURS IVP 01/31/20 09:30 03/01/20 09:29 02/02/20 09:25 Potassium Chloride (K-Dur) 40 meq TWICE A DAY ORAL 02/02/20 18:00 05/02/20 17:59 Sucralfate (Carafate) 1 gm FOUR TIMES A DAY ORAL 01/30/20 09:00 04/29/20 08:59 02/02/20 12:46 Thiamine HCl (Vitamin B1) 100 mg DAILY GT 01/28/20 09:30 02/27/20 09:29 02/02/20 09:24 Char Morel M.D. Feb 02, 2020 16:56
[2020-02-02] MEDS ORDERED: Gentamicin Rx monitoring MISC PRN (17:00)
[2020-02-02] MEDS: GENTAMICIN IVPB SCH (18:16)
[2020-02-02] MEDS: NS IVPB SCH (18:16)
[2020-02-02] MEDS ORDERED: D5 1/2NS 1000ml IV ONE (19:31)
[2020-02-02 20:00] VITALS: BP 100/69
[2020-02-02] MEDS: OXcarbazepine 150mg tab GT SCH (20:01)
[2020-02-03] VITALS: BP 100/72
[2020-02-03] MEDS: D5 1/2NS 1,000 ML IV SCH ×2 (02:22→17:31)
[2020-02-03 04:00] VITALS: BP 100/51
[2020-02-03 07:29] LABS: BASOPHILS % (AUTO) 1.2 % (0.0-2.0); EOSINOPHILS % (AUTO) 1.4 % (0.0-3.0); HEMATOCRIT 31.9 % (37.0-47.0); HEMOGLOBIN 10.5 G/DL (12.0-16.0); MEAN CORPUSCULAR VOLUME 90 FL (80-99); MONOCYTES % (AUTO) 16.6 % (1.0-10.0); NEUTROPHILS % (AUTO) 69.8 % (45.0-75.0); PLATELET COUNT 308 K/UL (150-450); RED BLOOD COUNT 3.53 M/UL (4.20-5.40); WHITE BLOOD COUNT 8.3 K/UL (4.8-10.8)
[2020-02-03 07:57] LABS: ALANINE AMINOTRANSFERASE 14 U/L (12-78); ALBUMIN 1.6 G/DL (3.4-5.0); ALBUMIN/GLOBULIN RATIO 0.5 (1.0-2.7); ALKALINE PHOSPHATASE 59 U/L (46-116); ANION GAP 9 mmol/L (5-15); ASPARTATE AMINO TRANSFERASE 16 U/L (15-37); BILIRUBIN,TOTAL 0.2 MG/DL (0.2-1.0); BLOOD UREA NITROGEN 4 mg/dL (7-18); CALCIUM 7.6 MG/DL (8.5-10.1); CARBON DIOXIDE 23 MMOL/L (21-32); CHLORIDE 112 MMOL/L (98-107); CREATININE 0.5 MG/DL (0.55-1.30); PHOSPHORUS 1.5 MG/DL (2.5-4.9); POTASSIUM 3.6 MMOL/L (3.5-5.1); SODIUM 144 MMOL/L (136-145)
[2020-02-03 08:00] VITALS: BP 101/55
[2020-02-03] MEDS: levETIRAcetam 500mg/5ml Liquid GT SCH ×2 (08:12→20:44)
[2020-02-03] MEDS: Gabapentin 300 MG/6 ML Soln GT SCH ×3 (08:12→17:29)
[2020-02-03] MEDS: Ascorbic Acid 500mg tab GT SCH (08:13)
[2020-02-03] MEDS: Multivitamins W/Minerals 15 ML UDC GT SCH (08:13)
[2020-02-03] MEDS: Sucralfate 1gm tab ORAL SCH ×4 (08:13→20:43)
[2020-02-03] MEDS: Thiamine 100mg tab GT SCH (08:14)
[2020-02-03] MEDS: Pantoprazole Inj IVP SCH ×2 (08:14→20:43)
--- NOTE | 2020-02-03 08:38 | Pulmonology Progress Note ---
Ivanna Mora [employer] 02/03/20 0838: Subjective ROS Limited/Unobtainable: Yes Allergies: Coded Allergies: CARBAMAZEPINE (Verified Allergy, Unknown, 12/31/19) LORAZEPAM (Verified Allergy, Unknown, 12/31/19) All Systems: reviewed and negative except above Subjective in JULIANA no signs of resp distress on current vent settings BP better , on Midodrine, off Dopamine gtt no fevers since 01/31 leuk resolved CXR 02/01- Interval development of retrocardiac airspace opacities which could represent atelectasis versus developing consolidation. less output from rectal tube Objective Last 24 Hour Vital Signs Date Time Temp Pulse Resp B/P (MAP) Pulse Ox O2 Delivery O2 Flow Rate FiO2 02/03/20 07:20 78 18 30 02/03/20 04:00 30 02/03/20 04:00 96.6 65 20 100/51 (67) 100 02/03/20 03:58 74 02/03/20 03:30 79 21 30 02/03/20 00:00 30 02/03/20 00:00 97.7 62 18 100/72 (81) 100 02/02/20 23:32 44 02/02/20 22:53 57 22 30 02/02/20 20:00 97.7 66 18 100/69 (79) 100 02/02/20 20:00 30 02/02/20 19:25 62 02/02/20 19:04 61 22 30 02/02/20 16:00 30 02/02/20 16:00 98.2 71 18 123/64 (83) 99 71 02/02/20 16:00 65 02/02/20 15:10 67 19 30 02/02/20 12:00 66 02/02/20 12:00 30 02/02/20 11:44 97.5 67 19 92/50 (64) 100 67 02/02/20 11:00 63 21 30 02/02/20 09:00 100 Intake and Output 02/02/20 02/03/20 19:00 07:00 Intake Total 1840 ml 1553 ml Output Total 1300 ml 1700 ml Balance 540 ml -147 ml Intake Free Water 150 ml 150 ml IV Total 1000 ml 903 ml Tube Feeding 450 ml 500 ml Other 240 ml Output Urine Total 300 ml 1100 ml Stool Total 1000 ml 600 ml # Voids 1 Objective General Appearance: bedridden, pale, chronically ill looking, older than her biological age ; vent dependent female ; on vent SIMV 450-30%-12, PEEP 5 Lines, tubes and drains: trach HEENT: normocephalic, atraumatic Neck: trach - Portex #7, secretions small amount, yellow color, thin consistency Respiratory/Chest: CTAB Cardiovascular/Chest: regular rate, regular rhythm Abdomen: non tender, soft, G tube , rectal tube Genitourinary/Rectal: [place] Extremities: no edema, muscle atrophy Neurologic: abnormal gait, poorly responsive, eyes open spontaneously Musculoskeletal: atrophy BLE Skin: multiple tattoos Microbiology Date/Time Source Procedure Growth Status 01/31/20 16:40 Stool Clostridium difficile Toxin Assay - Final Complete Laboratory Tests 02/02/20 12:12: POC Whole Blood Glucose 91 02/02/20 18:12: POC Whole Blood Glucose 99 02/03/20 00:11: POC Whole Blood Glucose [Pending] 02/03/20 05:38: POC Whole Blood Glucose 113H 02/03/20 06:20: White Blood Count 8.3#, Red Blood Count 3.53L, Hemoglobin 10.5L, Hematocrit 31.9L, Mean Corpuscular Volume 90, Mean Corpuscular Hemoglobin 29.8, Mean Corpu scular Hemoglobin Concent 33.0, Red Cell Distribution Width 15.0H, Platelet Count 308, Mean Platelet Volume 7.3, Neutrophils (%) (Auto) 69.8, Lymphocytes (%) (Auto) 11.0L, Monocytes (%) (Auto) 16.6H, Eosinophils (%) (Auto) 1.4, Basophils (%) (Auto) 1.2, Sodium Level 144, Potassium Level 3.6, Chloride Level 112H, Carbon Dioxide Level 23, Anion Gap 9, Blood Urea Nitrogen 4L, Creatinine 0.5L, Estimat Glomerular Filtration Rate > 60, Glucose Level 121H, Calcium Level 7.6L, Phosphorus Level 1.5L, Magnesium Level 1.5L, Total Bilirubin 0.2, Aspartate Amino Transf (AST/SGOT) 16, Alanine Aminotransferase (ALT/SGPT) 14, Alkaline Phosphatase 59, Total Protein 4.9L, Albumin 1.6L, Globulin 3.3, Albumin/Globulin Ratio 0.5L, Random Gentamicin Level 1.0 Current Medications Medications (Trade) Dose Ordered Sig/Villa Route PRN Reason Start Time Stop Time Status Last Admin Dose Admin Acetaminophen (Tylenol) 650 mg Q4H PRN GT Temp >100.5 02/01/20 20:30 03/02/20 20:29 02/01/20 21:07 Ascorbic Acid (Vitamin C) 500 mg DAILY GT 01/28/20 09:30 02/27/20 09:29 02/03/20 08:13 Dextrose/Sodium Chloride 1,000 ml @ 75 mls/hr [id number] IV 01/29/20 13:00 02/27/20 12:59 02/03/20 02:22 Famotidine (Pepcid I.v.) 20 mg Q12HR IVP 01/29/20 21:00 02/28/20 20:59 02/03/20 08:14 Fidaxomicin (Dificid) 200 mg EVERY 12 HOURS ORAL 01/28/20 21:00 02/04/20 20:59 02/03/20 08:15 Gabapentin (Neurontin) 900 mg TID GT 01/28/20 09:30 02/19/20 09:29 02/03/20 08:12 Gentamicin Protocol (Gentamicin pharmacy to dose) 1 ea DAILY PRN MISC Per rx protocol 02/02/20 17:00 03/03/20 16:59 Gentamicin Sulfate 200 mg/ Sodium Chloride 115 ml @ 115 mls/hr Q24H IVPB 02/02/20 18:00 02/09/20 17:59 02/02/20 18:16 Haloperidol Lactate (Haldol) 5 mg Q6H PRN IM Agitation 01/28/20 09:30 02/15/20 09:29 Levetiracetam (Keppra) 1,500 mg Q12HR GT 01/28/20 09:30 02/07/20 09:29 02/03/20 08:12 Levothyroxine Sodium (Synthroid) 50 mcg ACBREAKFAST GT 01/29/20 06:30 02/10/20 06:29 02/03/20 05:59 Metronidazole 100 ml @ 100 mls/hr Q8HR IVPB 01/28/20 22:00 02/04/20 21:59 02/03/20 05:34 Midodrine (Pro-Amatine) 10 mg TID GT 01/28/20 18:00 04/21/20 09:29 02/03/20 08:13 Multivitamins (Multivitamins W/ Minerals 15ml Liquid) 15 ml DAILY GT 01/28/20 09:30 02/27/20 09:29 02/03/20 08:13 Oxcarbazepine (TrileptaL) 300 mg BEDTIME GT 01/28/20 21:00 02/07/20 20:59 02/02/20 20:01 Pantoprazole (Protonix) 40 mg EVERY 12 HOURS IVP 01/31/20 09:30 03/01/20 09:29 02/03/20 08:14 Potassium Chloride (K-Dur) 40 meq TWICE A DAY ORAL 02/02/20 18:00 05/02/20 17:59 02/03/20 08:13 Sucralfate (Carafate) 1 gm FOUR TIMES A DAY ORAL 01/30/20 09:00 04/29/20 08:59 02/03/20 08:13 Thiamine HCl (Vitamin B1) 100 mg DAILY GT 01/28/20 09:30 02/27/20 09:29 02/03/20 08:14 Assessment/Plan Assessment/Plan ASSESSMENT VDRF/trach status Sepsis Possible pneumonia UTI recurrent GI bleeding severe C dif colitis Anemia secondary to GI bleeding Aspiration risk Dysphagia, feeding by G-tube Encephalopathy Acute kidney injury likely secondary to dehydration Recurrent bradycardia persistent Hypotension Electrolyte imbalance Severe protein calorie malnutrition Hx of hypertension History of CVA Seizure disorder with witnessed seizure episode 01/07 Psychiatric disorder Presumed scabies, s/p Rx Thrombocytopenia-transient- resolved PLAN OF CARE JULIANA off Dopamine gtt, BP better on IVF, vent support, pulm toilet ABG stable on current settings on SIMV mode 450-30-12 PEEP5 , no signs of resp distress on these settings keep settings as is and titrate as needed now tachypneic intermittently CXR 01/27 no acute disease pulm toilet via [facility] CT chest 01/28 - with tree-in-bud nodular opacities in the medial left base and lingula with left bronchial bubbly material suggesting infectious or inflammatory bronchiolitis, likely due to aspiration. Small amount of similar foci seen in the right posterior lower lobe. Mild bronchiectasis and reticulation in the lingula, medial left base, and superior left upper lobe could also be due to chronic infection. CXR 02/11 -Interval development of retrocardiac airspace opacities which could represent atelectasis versus developing consolidation. probably ATX , given no fevers, resolved leukcoytosis, no resp distress on current settings will fup with CXR, leuk resolved , no fevers since 01/31 pancx-per ID CXR 01/13- no acute findings KUB 01/13- no acute findings UA + yeast , 01/12 UCX +yeast, started on Fluconazole 01/14 as per ID -completed BCX 01/12 NGTD BCX 01/26 and 01/27 NGTD UCX 01/27 + Klebs CR- started on Gent per ID recs given prior leukocytosis and fevers - abx as per ID recs Vanco po was prior dc and switched to Dificid , also on Flagyl per GI -till 01/28 , both extended till 02/03 inflammatory markers : ESR-42, CRP- wnl WBC smear NGT C dif a/b 01/30 NGT less output from rectal tube CT C/ A/P noted ( see results of CT chest above), CT A/P with findings most compatible with ileus and probable infectious or inflammatory enteritis or enterocolitis. off cefepime rapid COVID 19 NGT in ED aspiration precautions Venous Duplex BLE -negative, get SCD ( unable to give a/c given anemia) closely monitor hemodynamic status heme and GI follows s/p prior EGD 01/01 -> gastric ulcer across G tube site , no active bleeding s/p EGD 01/30 -> gastric ulceration without visible bleeding Protonix IV bid ( changed from Protonix gtt), Carafate GT feeding resumed as per GI , s/p blood tx 01/30 stool OB positive , another pending transfuse to keep Hgb > 7. HH at baseline trend LFT-> trended down, hep panel NGT hx of cirrhosis- per GI management monitor renal parameters, lytes, avoid nephrotoxic IVF BUN trending down, creat stable, likely prerenal due to dehydration replace e/lytes as per nephro recs , K , P and Mg replaced this am as per nephro monitor volumes seizure precautions, antiepileptic optimized as per neuro recs ammonia 49, fup with further neuro recs EEG - grossly abnormal; mild to mod encephalopathy, single ictal episode CT head no acute IC pathology BP management with current regimen SNF meds supportive care dietary recs s/p 12/31 Rx for presumed scabies with permethrin and Ivermectin, repeated Ivermectin 01/08 case discussed and evaluated by supervising physician Jeyson Anderson MD 02/03/20 2155: Subjective Allergies: Coded Allergies: CARBAMAZEPINE (Verified Allergy, Unknown, 12/31/19) LORAZEPAM (Verified Allergy, Unknown, 12/31/19) Assessment/Plan Assessment/Plan Patient seen and examined with [employer] and I agree with the above formulated assessment and plan. Ivanna Mora NP Feb 03, 2020 08:38 Jeyson Anderson MD Feb 03, 2020 21:55
--- NOTE | 2020-02-03 09:51 | General Progress Note ---
Subjective ROS Limited/Unobtainable: No Allergies: Coded Allergies: CARBAMAZEPINE (Verified Allergy, Unknown, 12/31/19) LORAZEPAM (Verified Allergy, Unknown, 12/31/19) Objective Last 24 Hour Vital Signs Date Time Temp Pulse Resp B/P (MAP) Pulse Ox O2 Delivery O2 Flow Rate FiO2 02/03/20 08:00 30 02/03/20 08:00 78 02/03/20 08:00 96.8 77 20 101/55 (70) 100 02/03/20 07:20 78 18 30 02/03/20 04:00 30 02/03/20 04:00 96.6 65 20 100/51 (67) 100 02/03/20 03:58 74 02/03/20 03:30 79 21 30 02/03/20 00:00 30 02/03/20 00:00 97.7 62 18 100/72 (81) 100 02/02/20 23:32 44 02/02/20 22:53 57 22 30 02/02/20 20:00 97.7 66 18 100/69 (79) 100 02/02/20 20:00 30 02/02/20 19:25 62 02/02/20 19:04 61 22 30 02/02/20 16:00 30 02/02/20 16:00 98.2 71 18 123/64 (83) 99 71 02/02/20 16:00 65 02/02/20 15:10 67 19 30 02/02/20 12:00 66 02/02/20 12:00 30 02/02/20 11:44 97.5 67 19 92/50 (64) 100 67 02/02/20 11:00 63 21 30 Intake and Output 02/02/20 02/03/20 19:00 07:00 Intake Total 1840 ml 1553 ml Output Total 1300 ml 1700 ml Balance 540 ml -147 ml Intake Free Water 150 ml 150 ml IV Total 1000 ml 903 ml Tube Feeding 450 ml 500 ml Other 240 ml Output Urine Total 300 ml 1100 ml Stool Total 1000 ml 600 ml # Voids 1 Laboratory Tests 02/02/20 12:12: POC Whole Blood Glucose 91 02/02/20 18:12: POC Whole Blood Glucose 99 02/03/20 00:11: POC Whole Blood Glucose [Pending] 02/03/20 05:38: POC Whole Blood Glucose 113H 02/03/20 06:20: White Blood Count 8.3#, Red Blood Count 3.53L, Hemoglobin 10.5L, Hematocrit 31.9L, Mean Corpuscular Volume 90, Mean Corpuscular Hemoglobin 29.8, Mean Corpuscular Hemoglobin Concent 33.0, Red Cell Distribution Width 15.0H, Platelet Count 308, Mean Platelet Volume 7.3, Neutrophils (%) (Auto) 69.8, Lymphocytes (%) (Auto) 11.0L, Monocytes (%) (Auto) 16.6H, Eosinophils (%) (Auto) 1.4, Basophils (%) (Auto) 1.2, Sodium Level 144, Potassium Level 3.6, Chloride Level 112H, Carbon Dioxide Level 23, Anion Gap 9, Blood Urea Nitrogen 4L, Creatinine 0.5L, Estimat Glomerular Filtration Rate > 60, Glucose Level 121H, Calcium Level 7.6L, Phosphorus Level 1.5L, Magnesium Level 1.5L, Total Bilirubin 0.2, Aspar [place] Amino Transf (AST/SGOT) 16, Alanine Aminotransferase (ALT/SGPT) 14, Alkaline Phosphatase 59, Total Protein 4.9L, Albumin 1.6L, Globulin 3.3, Albumin/Globulin Ratio 0.5L, Random Gentamicin Level 1.0 Height (Feet): 5 Height (Inches): 1.00 Weight (Pounds): 81 General Appearance: no apparent distress EENT: normal ENT inspection Neck: supple Cardiovascular: normal rate Respiratory/Chest: decreased breath sounds Abdomen: normal bowel sounds, non tender, soft Extremities: non-tender Assessment/Plan Problem List: (1) G tube feedings ICD Codes: Z93.1 - Gastrostomy status SNOMED: 761123838, 846699415, [id number] (2) GI bleed ICD Codes: K92.2 - Gastrointestinal hemorrhage, unspecified SNOMED: 45859910 (3) Sepsis ICD Codes: A41.9 - Sepsis, unspecified organism SNOMED: 16170037 (4) Pneumonia ICD Codes: J18.9 - Pneumonia, unspecified organism SNOMED: 665799415 Status: stable, other - Patient is now hypotensive before over 46 she will receive 500 cc of normal saline bolus to be repeated blood pressure remained below 90 further management will be decided following the boluses treatment repeat laboratory tests will be done in a.m. GEM MCKAY MD Assessment/Plan: s/p EGD gastric ulcer monitor H&H C. Diff positive po dificid famotidine IV carafate and ppi will fu Satish Carrillo MD Feb 03, 2020 09:51
[2020-02-03 12:00] VITALS: BP 102/57
[2020-02-03] MEDS: Acetaminophen 650mg/20.3ml GT PRN (12:23)
--- NOTE | 2020-02-03 13:35 | Infectious Diseases Prog Note ---
Assessment/Plan 39yo F with: Severe Sepsis Fever, recurrent; improving Leukocytosis; recurrent; Sp UTI -02/01 CXR: Interval development of retrocardiac airspace opacities which could represent atelectasis versus developing consolidation. u/a wbc 5-10, nit neg, leuk +2; ucx -01/28 CXR: Subtle reticular nodular opacities in the left apex which may be related to scarring versus acute small airway disease/bronchitis CT c/abd/p wo: Study substantially limited due to lack of IV contrast. Findings most compatible with ileus and probable infectious or inflammatory enteritis or enterocolitis. Large low-attenuation pelvic fluid of uncertain significance, potentially reactive.Appendix not identified. Percutaneous gastrostomy tube adequately positioned in the stomach. Rectal tube. Urinary bladder wall thickening could be incidental, due to high outlet pressures, or could represent cystitis.Cholecystectomy. -01/27 u/a no pyuria, nit +, leuk +3; ucx >100k CRE K, pna (S Gentamycin) CXR: no acute disease Bc xNTD -01/26 Bcx NTD -01/13 CXR: no acute disease -01/12 u/a wbc tnct, nit neg, latrell +3; ucx >100k C. tropicalis Bcx NTD Severe Cdiff colitis -01/30 Cdif toxin a/b neg -01/06 Cdif toxin + 01/27 KUB:Severely dilated small bowel loop in the central abdomen could reflect obstruction. Diffusely fluid distended colon. -01/13 KUB: no acute findings Recurrent GIB 01/06 u/aneg 12/30 BCx 1/2 +CONS, likely contaminant 12/30 UA neg, COVID rapid Ag neg 12/30 CXR 1. Density overlying the bilateral lung apices. May represent pleural thickening, multifocal airspace opacities, versus summation artifact. 01/01 BCx Neg 01/02 BCx Neg Acute blood loss anemia Possible pna on CXR, sp rx Seizure episode -01/10 CT head: Third and lateral ventriculomegaly. Associated enlargement of the extra axial CSF spaces indicates that this is probably due to central volume loss, but the possibility of hydrocephalus should also be considered. At the degree of volume loss is considerably out of proportion to patient's age. Periventricular deep white matter low-attenuation. Probably on the basis of microvascular ischemic change but given patient's age the possibility of demyelinating disease should be considered as well. 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 [facility] will continue to follow. Subjective Allergies: Coded Allergies: CARBAMAZEPINE (Verified Allergy, Unknown, 12/31/19) LORAZEPAM (Verified Allergy, Unknown, 12/31/19) comfortable Objective Last 24 Hour Vital Signs Date Time Temp Pulse Resp B/P (MAP) Pulse Ox O2 Delivery O2 Flow Rate FiO2 02/03/20 12:53 98.4 02/03/20 12:00 94 02/03/20 12:00 100.8 85 15 102/57 (72) 100 02/03/20 12:00 30 02/03/20 11:00 91 24 30 02/03/20 08:00 30 02/03/20 08:00 78 02/03/20 08:00 96.8 77 20 101/55 (70) 100 02/03/20 07:20 78 18 30 02/03/20 04:00 30 02/03/20 04:00 96.6 65 20 100/51 (67) 100 02/03/20 03:58 74 02/03/20 03:30 79 21 30 02/03/20 00:00 30 02/03/20 00:00 97.7 62 18 100/72 (81) 100 02/02/20 23:32 44 02/02/20 22:53 57 22 30 02/02/20 20:00 97.7 66 18 100/69 (79) 100 02/02/20 20:00 30 02/02/20 19:25 62 02/02/20 19:04 61 22 30 02/02/20 16:00 30 02/02/20 16:00 98.2 71 18 123/64 (83) 99 71 02/02/20 16:00 65 02/02/20 15:10 67 19 30 Height (Feet): 5 Height (Inches): 1.00 Weight (Pounds): 81 HEENT: anicteric Respiratory/Chest: lungs clear Cardiovascular: normal rate Microbiology Date/Time Source Procedure Growth Status 01/31/20 16:40 Stool Clostridium difficile Toxin Assay - Final Complete Laboratory Tests Test 02/02/20 18:12 02/03/20 00:11 02/03/20 05:38 02/03/20 06:20 POC Whole Blood Glucose 99 MG/DL (74-106) Pending 113 MG/DL (74-106) H White Blood Count 8.3 K/UL (4.8-10.8) # Red Blood Count 3.53 M/UL (4.20-5.40) L Hemoglobin 10.5 G/DL (12.0-16.0) L Hematocrit 31.9 % (37.0-47.0) L Mean Corpuscular Volume 90 FL (80-99) Mean Corpuscular Hemoglobin 29.8 PG (27.0-31.0) Mean Corpuscular Hemoglobin Concent 33.0 G/DL (32.0-36.0) Red Cell Distribution Width 15.0 % (11.6-14.8) H Platelet Count 308 K/UL (150-450) Mean Platelet Volume 7.3 FL (6.5-10.1) Neutrophils (%) (Auto) 69.8 % (45.0-75.0) Lymphocytes (%) (Auto) 11.0 % (20.0-45.0) L Monocytes (%) (Auto) 16.6 % (1.0-10.0) H Eosinophils (%) (Auto) 1.4 % (0.0-3.0) Basophils (%) (Auto) 1.2 % (0.0-2.0) Sodium Level 144 MMOL/L (136-145) Potassium Level 3.6 MMOL/L (3.5-5.1) Chloride Level 112 MMOL/L (98-107) H Carbon Dioxide Level 23 MMOL/L (21-32) Anion Gap 9 mmol/L (5-15) Blood Urea Nitrogen 4 mg/dL (7-18) L Creatinine 0.5 MG/DL (0.55-1.30) L Estimat Glomerular Filtration Rate > 60 mL/min (>60) Glucose Level 121 MG/DL (74-106) H Calcium Level 7.6 MG/DL (8.5-10.1) L Phosphorus Level 1.5 MG/DL (2.5-4.9) L Magnesium Level 1.5 MG/DL (1.8-2.4) L Total Bilirubin 0.2 MG/DL (0.2-1.0) Aspartate Amino Transf (AST/SGOT) 16 U/L (15-37) Alanine Aminotransferase (ALT/SGPT) 14 U/L (12-78) Alkaline Phosphatase 59 U/L (46-116) Total Protein 4.9 G/DL (6.4-8.2) L Albumin 1.6 G/DL (3.4-5.0) L Globulin 3.3 g/dL Albumin/Globulin Ratio 0.5 (1.0-2.7) L Random Gentamicin Level 1.0 ug/mL Test 02/03/20 11:23 POC Whole Blood Glucose 100 MG/DL (74-106) Current Medications Medications (Trade) Dose Ordered Sig/Villa Route PRN Reason Start Time Stop Time Status Last Admin Dose Admin Acetaminophen (Tylenol) 650 mg Q4H PRN GT Temp >100.5 02/01/20 20:30 03/02/20 20:29 02/03/20 12:23 Ascorbic Acid (Vitamin C) 500 mg DAILY GT 01/28/20 09:30 02/27/20 09:29 02/03/20 08:13 Dextrose/Sodium Chloride 1,000 ml @ 75 mls/hr [id number] IV 01/29/20 13:00 02/27/20 12:59 02/03/20 02:22 Famotidine (Pepcid I.v.) 20 mg Q12HR IVP 01/29/20 21:00 02/28/20 20:59 02/03/20 08:14 Fidaxomicin (Dificid) 200 mg EVERY 12 HOURS ORAL 01/28/20 21:00 02/04/20 20:59 02/03/20 08:15 Gabapentin (Neurontin) 900 mg TID GT 01/28/20 09:30 02/19/20 09:29 02/03/20 12:22 Gentamicin Protocol (Gentamicin pharmacy to dose) 1 ea DAILY PRN MISC Per rx protocol 02/02/20 17:00 03/03/20 16:59 Gentamicin Sulfate 200 mg/ Sodium Chloride 115 ml @ 115 mls/hr Q24H IVPB 02/02/20 18:00 02/09/20 17:59 02/02/20 18:16 Haloperidol Lactate (Haldol) 5 mg Q6H PRN IM Agitation 01/28/20 09:30 02/15/20 09:29 Levetiracetam (Keppra) 1,500 mg Q12HR GT 01/28/20 09:30 02/07/20 09:29 02/03/20 08:12 Levothyroxine Sodium (Synthroid) 50 mcg ACBREAKFAST GT 01/29/20 06:30 02/10/20 06:29 02/03/20 05:59 Metronidazole 100 ml @ 100 mls/hr Q8HR IVPB 01/28/20 22:00 02/04/20 21:59 02/03/20 05:34 Midodrine (Pro-Amatine) 10 mg TID GT 01/28/20 18:00 04/21/20 09:29 02/03/20 12:22 Multivitamins (Multivitamins W/ Minerals 15ml Liquid) 15 ml DAILY GT 01/28/20 09:30 02/27/20 09:29 02/03/20 08:13 Oxcarbazepine (TrileptaL) 300 mg BEDTIME GT 01/28/20 21:00 02/07/20 20:59 02/02/20 20:01 Pantoprazole (Protonix) 40 mg EVERY 12 HOURS IVP 01/31/20 09:30 03/01/20 09:29 02/03/20 08:14 Potassium Chloride (K-Dur) 40 meq TWICE A DAY ORAL 02/02/20 18:00 05/02/20 17:59 02/03/20 08:13 Sucralfate (Carafate) 1 gm FOUR TIMES A DAY ORAL 01/30/20 09:00 04/29/20 08:59 02/03/20 12:22 Thiamine HCl (Vitamin B1) 100 mg DAILY GT 01/28/20 09:30 02/27/20 09:29 02/03/20 08:14 Tony Camacho MD Feb 03, 2020 13:35
--- NOTE | 2020-02-03 14:37 | Nephrology Progress Note ---
Assessment/Plan Problem List: (1) RICHARD (acute kidney injury) (2) Dehydration (3) Anemia (4) GI bleed (5) Malnutrition (6) Seizure disorder (7) Electrolyte imbalance Assessment Renal failure, in the form of prerenal azotemia, most likely secondary to GI bleed GI bleed, leading to severe anemia Sepsis, pneumonia Chronic tracheostomy, ventilator dependent History of CVA History of seizure disorder History of psychiatric disorder Severe malnutrition Electrolyte abnormalities Plan February 02: Lab reviewed. Low phosphorus low magnesium corrections ordered. Continue to monitor electrolytes and renal parameters. February 01: Lab reviewed. Low phosphorus and low magnesium replaced. Low potassium replaced. Continue to monitor electrolytes. Continue per consultants. January 31: Lab reviewed. Hemoglobin higher. Renal parameters stable. Potassium and phosphorus supplement given. January 30: Labs reviewed. Low mag low phosphorus and low potassium replaced. White blood cells 16,000 today. Remains full code. Continue to monitor hemoglobin and hematocrit and electrolytes. January 29: Labs reviewed. Magnesium, potassium, phosphorus supplement given. White blood cells down to 22,000. Remains full code. Continue per consultants. RN reports rectal bleed. Hemoglobin drifting down. Defer management to brick paver who is already on the case. January 28: Status quo. Electrolyte abnormalities noted. Mag Phos and potassium supplement IV given. Renal parameters stable. Continue per consultants. Leukocytosis persists. January 27: Significant rise in white blood cell counts. Hypotensive. Now in ICU. Will give albumin bolus. Continue to monitor renal parameters. Continue per ID advice. January 26: Continue to monitor renal parameters. Patient remains on ventilator. Patient is full code. Continue per consultants. January 25: Status quo. Labs reviewed. Continue per consultants. January 24: Status unchanged. Labs reviewed. Remains stable from renal standpoint of view. January 23: Back in [facility]. Stable from renal standpoint of view. Continue per consultants. January 22: Patient in ICU now. Vital signs and heart rate and blood pressure appears to be stable. Patient had an episode of bradycardia but it was resolved. TSH level today is very low will cut down on Synthroid dose. January 21: Today's labs are reviewed. Stable renal parameters. Continue per consultants. January 20: Labs reviewed. Renal parameters stable. January 19: Labs reviewed. Stable from renal standpoint. January 18: No labs done today. Continue per consultants. Medications reviewed. January 17: Late [place] entry due [place] [facility] [place]Chemistry [place] giovanny reviewed. Stable from renal standpoint of view. Continue per current management. January 16: No can panel today. Check lab tomorrow. Remains stable from renal standpoint of view. January 15: Lab reviewed. Renal parameters stable. January 14: Lab reviewed. Renal parameters stable. January 13: Labs reviewed. Stable from renal standpoint of view. January 12: Labs reviewed. Stable from renal standpoint of view January 11: No labs drawn today stable from renal standpoint of view January 10: Labs reviewed. Potassium supplement given. Continue per consultants. January 09: Lab reviewed. Potassium supplement given. IV fluid discontinued. January 08: Lab reviewed. Renal parameters stable. Continue per consultants. January 07: Lab reviewed. Renal parameters stable. Continue per consultants. January 06: Lab reviewed. Stable from renal standpoint of view. January 05: Labs reviewed. Stable from renal standpoint of view. Continue per consultants. January 04: No labs drawn today. Will check labs tomorrow. Continue per consultants. January 03: Lab reviewed. Renal parameters stable. IV fluid discontinued. High LFTs declining. Continue same. January 02: Lab reviewed. Renal parameters stable. Continue per PMD and consultants. LFTs remain elevated. Continue to monitor. Continue slow hydration Discontinue blood pressure medications as her blood pressure is low Discontinue diuretics Monitor renal parameters Transfusion as needed GI evaluation Correct electrolyte abnormalities Check B12 level, folate, and thyroid function tests: Results noted Subjective ROS Limited/Unobtainable: Yes Objective Objective Last 24 Hour Vital Signs Date Time Temp Pulse Resp B/P (MAP) Pulse Ox O2 Delivery O2 Flow Rate FiO2 02/03/20 12:53 98.4 02/03/20 12:00 94 02/03/20 12:00 100.8 85 15 102/57 (72) 100 02/03/20 12:00 30 02/03/20 11:00 91 24 30 02/03/20 08:00 30 02/03/20 08:00 78 02/03/20 08:00 96.8 77 20 101/55 (70) 100 02/03/20 07:20 78 18 30 02/03/20 04:00 30 02/03/20 04:00 96.6 65 20 100/51 (67) 100 02/03/20 03:58 74 9/19/20 03:30 79 21 30 02/03/20 00:00 30 02/03/20 00:00 97.7 62 18 100/72 (81) 100 02/02/20 23:32 44 02/02/20 22:53 57 22 30 02/02/20 20:00 97.7 66 18 100/69 (79) 100 02/02/20 20:00 30 02/02/20 19:25 62 02/02/20 19:04 61 22 30 02/02/20 16:00 30 02/02/20 16:00 98.2 71 18 123/64 (83) 99 71 02/02/20 16:00 65 02/02/20 15:10 67 19 30 Intake and Output 02/02/20 02/03/20 19:00 07:00 Intake Total 1840 ml 1783 ml Output Total 1300 ml 1700 ml Balance 540 ml 83 ml Intake Free Water 150 ml 250 ml IV Total 1000 ml 978 ml Tube Feeding 450 ml 555 ml Other 240 ml Output Urine Total 300 ml 1100 ml Stool Total 1000 ml 600 ml # Voids 1 Laboratory Tests 02/02/20 18:12: POC Whole Blood Glucose 99 02/03/20 00:11: POC Whole Blood Glucose [Pending] 02/03/20 05:38: POC Whole Blood Glucose 113H 02/03/20 06:20: White Blood Count 8.3#, Red Blood Count 3.53L, Hemoglobin 10.5L, Hematocrit 31.9L, Mean Corpuscular Volume 90, Mean Corpuscular Hemoglobin 29.8, Mean Corpuscular Hemoglobin Concent 33.0, Red Cell Distribution Width 15.0H, Platelet Count 308, Mean Platelet Volume 7.3, Neutrophils (%) (Auto) 69.8, Lymphocytes (%) (Auto) 11.0L, Monocytes (%) (Auto) 16.6H, Eosinophils (%) (Auto) 1.4, Basophils (%) (Auto) 1.2, Sodium Level 144, Potassium Level 3.6, Chloride Level 112H, Carbon Dioxide Level 23, Anion Gap 9, Blood Urea Nitrogen 4L, Creatinine 0.5L, Estimat Glomerular Filtration Rate > 60, Glucose Level 121H, Calcium Level 7.6L, Phosphorus Level 1.5L, Magnesium Level 1.5L, Total Bilirubin 0.2, Aspartate Amino Transf (AST/SGOT) 16, Alanine Aminotransferase (ALT/SGPT) 14, Alkaline Phosphatase 59, Total Protein 4.9L, Albumin 1.6L, Globulin 3.3, Albumin/Globulin Ratio 0.5L, Random Gentamicin Level 1.0 02/03/20 11:23: POC Whole Blood Glucose 100 Height (Feet): 5 Height (Inches): 1.00 Weight (Pounds): 81 General Appearance: no apparent distress Cardiovascular: tachycardia Respiratory/Chest: decreased breath sounds Abdomen: distended Objective No change Chivo Holloway MD Feb 03, 2020 14:37
--- NOTE | 2020-02-03 15:04 | Surgery Progress Note ---
Surgery Progress Note Subjective Additional Comments afebrile HD stable labs okay no n/v Objective Last 24 Hour Vital Signs Date Time Temp Pulse Resp B/P (MAP) Pulse Ox O2 Delivery O2 Flow Rate FiO2 02/03/20 12:53 98.4 02/03/20 12:00 94 02/03/20 12:00 100.8 85 15 102/57 (72) 100 02/03/20 12:00 30 02/03/20 11:00 91 24 30 02/03/20 08:00 30 02/03/20 08:00 78 02/03/20 08:00 96.8 77 20 101/55 (70) 100 02/03/20 07:20 78 18 30 02/03/20 04:00 30 02/03/20 04:00 96.6 65 20 100/51 (67) 100 02/03/20 03:58 74 02/03/20 03:30 79 21 30 02/03/20 00:00 30 02/03/20 00:00 97.7 62 18 100/72 (81) 100 02/02/20 23:32 44 02/02/20 22:53 57 22 30 02/02/20 20:00 97.7 66 18 100/69 (79) 100 02/02/20 20:00 30 02/02/20 19:25 62 02/02/20 19:04 61 22 30 02/02/20 16:00 30 02/02/20 16:00 98.2 71 18 123/64 (83) 99 71 02/02/20 16:00 65 02/02/20 15:10 67 19 30 I&O Intake and Output 02/02/20 02/03/20 19:00 07:00 Intake Total 1840 ml 1783 ml Output Total 1300 ml 1700 ml Balance 540 ml 83 ml Intake Free Water 150 ml 250 ml IV Total 1000 ml 978 ml Tube Feeding 450 ml 555 ml Other 240 ml Output Urine Total 300 ml 1100 ml Stool Total 1000 ml 600 ml # Voids 1 Dressing: other Wound: other Cardiovascular: RSR Respiratory: decreased breath sounds Abdomen: soft, non-tender, present bowel sounds Extremities: no cyanosis Laboratory Tests Test 02/02/20 18:12 02/03/20 00:11 02/03/20 05:38 02/03/20 06:20 POC Whole Blood Glucose 99 MG/DL (74-106) Pending 113 MG/DL (74-106) H White Blood Count 8.3 K/UL (4.8-10.8) # Red Blood Count 3.53 M/UL (4.20-5.40) L Hemoglobin 10.5 G/DL (12.0-16.0) L Hematocrit 31.9 % (37.0-47.0) L Mean Corpuscular Volume 90 FL (80-99) Mean Corpuscular Hemoglobin 29.8 PG (27.0-31.0) Mean Corpuscular Hemoglobin Concent 33.0 G/DL (32.0-36.0) Red Cell Distribution Width 15.0 % (11.6-14.8) H Platelet Count 308 K/UL (150-450) Mean Platelet Volume 7.3 FL (6.5-10.1) Neutrophils (%) (Auto) 69.8 % (45.0-75.0) Lymphocytes (%) (Auto) 11.0 % (20.0-45.0) L Monocytes (%) (Auto) 16.6 % (1.0-10.0) H Eosinophils (%) (Auto) 1.4 % (0.0-3.0) Basophils (%) (Auto) 1.2 % (0.0-2.0) Sodium Level 144 MMOL/L (136-145) Potassium Level 3.6 MMOL/L (3.5-5.1) Chloride Level 112 MMOL/L (98-107) H Carbon Dioxide Level 23 MMOL/L (21-32) Anion Gap 9 mmol/L (5-15) Blood Urea Nitrogen 4 mg/dL (7-18) L Creatinine 0.5 MG/DL (0.55-1.30) L Estimat Glomerular Filtration Rate > 60 mL/min (>60) Glucose Level 121 MG/DL (74-106) H Calcium Level 7.6 MG/DL (8.5-10.1) L Phosphorus Level 1.5 MG/DL (2.5-4.9) L Magnesium Level 1.5 MG/DL (1.8-2.4) L Total Bilirubin 0.2 MG/DL (0.2-1.0) Aspartate Amino Transf (AST/SGOT) 16 U/L (15-37) Alanine Aminotransferase (ALT/SGPT) 14 U/L (12-78) Alkaline Phosphatase 59 U/L (46-116) Total Protein 4.9 G/DL (6.4-8.2) L Albumin 1.6 G/DL (3.4-5.0) L Globulin 3.3 g/dL Albumin/Globulin Ratio 0.5 (1.0-2.7) L Random Gentamicin Level 1.0 ug/mL Test 02/03/20 11:23 POC Whole Blood Glucose 100 MG/DL (74-106) Plan Problems: (1) Pneumonia (2) Sepsis Assessment & Plan: leukocytosis anemia lactic acidosis agree with GI recommend EGD planned for 12/31 hold feeding for now trend h/h monitor for bleeding no acute hemorrhage will be available in event needs exploration for hemostasis prbc as per heme thank you will follow with recs cont abx worsening wbc wbc trending down comfortable appearing no n/v hypotensive in ICU again worse pending CT results - noted PICC ordered improving wbc improved labs and micro trending Pt presented on admission in emaciated state. Pt has tracheostomy and GT. NO skin concerns noted to skin under collar of trach. NO erythema or evidence of skin erosion at GT site. Pt noted to have scaly pimple-like rash with webbing noted to R and L axillae, undersides of both breasts, Bilat groin and lower back. Tracking and webbing noted to hands and feet. Pt restless and scratching at skin. Non-Blanching erythema without induration or fluctuance noted to R and L hips and trochanteric areas.Non-blanching erythema noted along spine. Non-Blanching erythema without induration noted to Sacrum. Non-Blanching erythema noted to R and L Malleoli and both heels. Tx.Plan: Please apply Cavilon Skin Barrier to each bony Prominences at risks for Skin Breakdown. Cover each area with Optifoam drsgs. Change every 7 days and prn. Apply Moisture Barrier Paste to Sacrum. Cover with Optifoam drsg. Change every 3 days and prn. Reposition at least every 2hours or as tolerated. Off-load heels with pillow. APM/EMELI Mattress overlay. improving cont current care plan There is marked enlargement of the third and lateral ventricles and extra axial CSF spaces, in particular the former. There is considerable periventricular deep white matter low-attenuation. Otherwise normal mobley-white differentiation. No acute hemorrhage or edema. No mass effect nor midline shift. Visualized orbits and sinuses are unremarkable. The calvarium is intact Impression: Third and lateral ventriculomegaly. Associated enlargement of the extra axial CSF spaces indicates that this is probably due to central volume loss, but the possibility of hydrocephalus should also be considered. At the degree of volume loss is considerably out of proportion to patient's age. Correlate with clinical history Periventricular deep white matter low-attenuation. Probably on the basis of microvascular ischemic change but given patient's age the possibility of demyelinating disease should be considered as well. Negative for acute intracranial bleed or mass effect ABDOMEN: Liver: Unremarkable. Gallbladder and bile ducts: Cholecystectomy. No ductal dilation. Pancreas: Unremarkable. No ductal dilation. Spleen: Unremarkable. No splenomegaly. Adrenals: Unremarkable. No mass. Kidneys and ureters: Unremarkable. No obstructing stones. No hydronephrosis. Stomach and bowel: Operative bowel findings. Diffuse small bowel wall thickening with areas of distention and fluid-filled colonic loops. No clear focal transition point to suggest small bowel obstruction. PELVIS: Appendix: Appendix not identified. Bladder: Urinary bladder wall thickening could be incidental, due to high outlet pressures, or could represent cystitis. No stones. Reproductive: Unremarkable as visualized. ABDOMEN and PELVIS: Intraperitoneal space: Large low-attenuation pelvic fluid of uncertain significance, potentially reactive. No free air. Bones/joints: No acute fracture. No dislocation. Soft tissues: Bilateral buttock injection granulomas. Vasculature: Unremarkable. No abdominal aortic aneurysm. Lymph nodes: Unremarkable. No enlarged lymph nodes. Tubes, lines and devices: Percutaneous gastrostomy tube adequately positioned in the stomach. Rectal tube. Other findings: No perforation seen. IMPRESSION: 1. Study substantially limited due to lack of IV contrast. 2. Findings most compatible with ileus and probable infectious or inflammatory enteritis or enterocolitis. 3. Large low-attenuation pelvic fluid of uncertain significance, potentially reactive. 4. Appendix not identified. 5. Percutaneous gastrostomy tube adequately positioned in the stomach. Rectal tube. 6. Urinary bladder wall thickening could be incidental, due to high outlet pressures, or could represent cystitis. 7. Cholecystectomy. (3) GI bleed (4) G tube feedings Assessment & Plan: DAILY ESTIMATED NEEDS: Needs based on Underweight, critical care 37.3kg 30-40 kcals/kg 5523-9489 total kcals 1.25-2 g protein/kg 47-75 g total protein 25-35 mL/kg [id number] total fluid mLs NUTRITION DIAGNOSIS: Increased kcal and pro needs r/t underweight status as evidenced by BMI 14.1, pt is 68% of ideal body weight w/ generalized severe wasting, trach and peg dep. CURRENT TF:Vital AF 1.2 @55 x20 hrs ENTERAL NUTRITION RECOMMENDATIONS: Vital AF 1.2 @ 55ml/hr x20 hrs to provide 1100ml 1320kcal 83g prot, 892ml free water - Rec to continue elemental TF formula while stool C-diff positive, +LBM - HOLD 1HR BEFORE AND AFTER SYNTHROID MEDS - Flush per MD. HOB over 30 degrees ADDITIONAL RECOMMENDATIONS: 1) Per SNF: 5'4" and 81# Maintain calibrated bed scale wts w/ added P200 mattress 2) Lytes daily madhav w/ loose stools, replete as needed 3) Skin integrity: Continue BRIAN VIA GT BID + Vit C 4) Accuchecks for Hypoglycemia 5) Add probiotics for stool C-diff+ . George Woods Feb 03, 2020 15:04
[2020-02-03 16:00] VITALS: BP 98/56
[2020-02-03] MEDS: Potassium Phosphate 15mm/250ml 250 ML IVPB SCH ×2 (16:16→21:57)
[2020-02-03] MEDS: GENTAMICIN IVPB SCH (18:48)
[2020-02-03] MEDS: NS IVPB SCH (18:48)
--- NOTE | 2020-02-03 19:49 | Cardiology Progress Note ---
Assessment/Plan Assessment/Plan 1. Septic shock, continue midodrine. 2. Sinus bradycardia, asymptomatic, related to midodrine, currently in sinus rhythm, no intervention is required, would continue midodrine to keep MAP >65 mmHg, will try to avoid pressors. 3. Anemia of chronic disease 4. Acute renal failure, resolved. 5. GI bleeding due to gastric ulceration. 6. Dysphagia, s/p PEG placement, s/p EGD. 7. VDRF, s/p tracheostomy tube placement. Subjective Subjective Sinus rhythm at rate of 83. On the vent with FiO2 of 30%. Objective Last 24 Hour Vital Signs Date Time Temp Pulse Resp B/P (MAP) Pulse Ox O2 Delivery O2 Flow Rate FiO2 02/03/20 19:05 83 26 30 02/03/20 16:00 81 02/03/20 16:00 30 02/03/20 16:00 98.6 85 16 98/56 (70) 100 02/03/20 15:20 88 22 30 02/03/20 12:53 98.4 02/03/20 12:00 94 02/03/20 12:00 100.8 85 15 102/57 (72) 100 02/03/20 12:00 30 02/03/20 11:00 91 24 30 02/03/20 09:42 100 02/03/20 08:00 30 02/03/20 08:00 78 02/03/20 08:00 96.8 77 20 101/55 (70) 100 02/03/20 07:20 78 18 30 02/03/20 04:00 30 02/03/20 04:00 96.6 65 20 100/51 (67) 100 02/03/20 03:58 74 02/03/20 03:30 79 21 30 02/03/20 00:00 30 02/03/20 00:00 97.7 62 18 100/72 (81) 100 02/02/20 23:32 44 02/02/20 22:53 57 22 30 02/02/20 20:00 97.7 66 18 100/69 (79) 100 02/02/20 20:00 30 Intake and Output 02/02/20 02/03/20 19:00 07:00 Intake Total 1840 ml 1783 ml Output Total 1300 ml 1700 ml Balance 540 ml 83 ml Intake Free Water 150 ml 250 ml IV Total 1000 ml 978 ml Tube Feeding 450 ml 555 ml Other 240 ml Output Urine Total 300 ml 1100 ml Stool Total 1000 ml 600 ml # Voids 1 2D Echo: LVEF 65%, RVSP 23 mmHg, Grade I LVDD Laboratory Tests Test 02/03/20 00:11 02/03/20 05:38 02/03/20 06:20 02/03/20 11:23 POC Whole Blood Glucose Pending 113 MG/DL (74-106) H 100 MG/DL (74-106) White Blood Count 8.3 K/UL (4.8-10.8) # Red Blood Count 3.53 M/UL (4.20-5.40) L Hemoglobin 10.5 G/DL (12.0-16.0) L Hematocrit 31.9 % (37.0-47.0) L Mean Corpuscular Volume 90 FL (80-99) Mean Corpuscular Hemoglobin 29.8 PG (27.0-31.0) Mean Corpuscular Hemoglobin Concent 33.0 G/DL (32.0-36.0) Red Cell Distribution Width 15.0 % (11.6-14.8) H Platelet Count 308 K/UL (150-450) Mean Platelet Volume 7.3 FL (6.5-10.1) Neutrophils (%) (Auto) 69.8 % (45.0-75.0) Lymphocytes (%) (Auto) 11.0 % (20.0-45.0) L Monocytes (%) (Auto) 16.6 % (1.0-10.0) H Eosinophils (%) (Auto) 1.4 % (0.0-3.0) Basophils (%) (Auto) 1.2 % (0.0-2.0) Sodium Level 144 MMOL/L (136-145) Potassium Level 3.6 MMOL/L (3.5-5.1) Chloride Level 112 MMOL/L (98-107) H Carbon Dioxide Level 23 MMOL/L (21-32) Anion Gap 9 mmol/L (5-15) Blood Urea Nitrogen 4 mg/dL (7-18) L Creatinine 0.5 MG/DL (0.55-1.30) L Estimat Glomerular Filtration Rate > 60 mL/min (>60) Glucose Level 121 MG/DL (74-106) H Calcium Level 7.6 MG/DL (8.5-10.1) L Phosphorus Level 1.5 MG/DL (2.5-4.9) L Magnesium Level 1.5 MG/DL (1.8-2.4) L Total Bilirubin 0.2 MG/DL (0.2-1.0) Aspartate Amino Transf (AST/SGOT) 16 U/L (15-37) Alanine Aminotransferase (ALT/SGPT) 14 U/L (12-78) Alkaline Phosphatase 59 U/L (46-116) Total Protein 4.9 G/DL (6.4-8.2) L Albumin 1.6 G/DL (3.4-5.0) L Globulin 3.3 g/dL Albumin/Globulin Ratio 0.5 (1.0-2.7) L Random Gentamicin Level 1.0 ug/mL Test 02/03/20 17:46 POC Whole Blood Glucose 91 MG/DL (74-106) Objective HEENT: PERRLA, EOMI, +Trach tube. NECK: Cannot assess JVP, no carotid bruit with normal upstroke. LUNGS: Bilateral rhonchi. CARDIAC: Regular rhythm and rate. Normal S1, S2, no murmurs, gallops or rubs. ABDOMEN: Soft with G-tube. No hepatomegaly. EXTREMITIES: No edema, clubbing or cyanosis. Desmond Gleason MD Feb 03, 2020 19:49
[2020-02-03 20:00] VITALS: BP 125/54
[2020-02-03] MEDS: OXcarbazepine 150mg tab GT SCH (20:43)
--- NOTE | 2020-02-03 21:32 | Hematology/Onc Progress Note ---
Assessment/Plan Assessment/Plan # Anemia rule out underlying gi bleed --> Dr. Carrillo has been consulted-->endosco gastric ulceration --> trend hgb 7-->7.4-->7.9-->8.1->9.6-->8.5->9.1-->10-->11-->10.3-->10.4-->11->9.8-->7.4 ->9-->10.5 --> anemia panel ordered-->reviewed --> prn transfusion --> protonix started # Leukocytosis is likely related to pna on imaging --> abx has been started --> if wbc worsens, consider abx vanc/zosyn--> ceftriaxone-->vanc->fluc/flagyl/vanc-->flagyl /fidoxomicin->vanc/cefepime/flagyl-->gentamcin --> smear is noted --> wbc 25-->15-->14-->16->7.6-->12-->20->13->11->14-->33-->16->8 --> pressors prn # Thrombocytopenia med related v labs error --> plt trend 167-->61-->227->373 --> meds have been reviewed --> no hep or lovenox # Sepsis --> on abx for pna --> pressors as needed --> fluids as per pcp for hypotension # Pneumonia --> pulm, Dr. 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 actuarial consultant care, will follow Subjective Allergies: Coded Allergies: CARBAMAZEPINE (Verified Allergy, Unknown, 12/31/19) LORAZEPAM (Verified Allergy, Unknown, 12/31/19) All Systems: reviewed and negative except above Subjective 01/01 altered, trach, no bleedin wbc improved on abx, seen by gi 01/02 egd study noted, also with plts 61k, have vitaly Armendariz Rn, will recheck cbc 01/03 remains agitated, vitaly rn, no bleeding, cbc noted as well as id recs 01/04 on vent, with melena overnight, no bleeding, vitaly rn, labs reviewed 01/06 on vent, remains agitated, no bleeding, vitaly rn, smear is noted 01/07 on vent, restless, asymptomatic, noncooperative 01/[address] John obtained, reviewed, meds adjusted, eeg pending 01/09 labs noted, no bleeding, ativan has been discontinued, meds reviewed 01/10 trach to vent, agitated, with wrist restraints, no major changes, no bleeding 01/11 labs are reviewed, on trach to vent, no bleeding, agitated overnight, no complaints 01/13 labs noted, no bleeding, is on vent/trach, no bleeding, vitaly rn, labs are noted 01/14 labs are noted, no bleeding, remains on v/t, remains agitated, no bleeding 01/15 is c.diff positive, wbc higher at 21k, labs noted, on abx, reviewed gi, id recs 01/16 remains on vent, wbc is improved, in sr, as abx per id 01/17 recieved dopamine, tube feeds, on soft restraints, no bleeding, vitaly rn 01/18 labs are noted, no bleeding, vitaly rn, no major changes 01/20 on dopamine gtt, with restraints, no major changes, labs noted 01/21 labs reviewed, no bleeding, vitaly rn, no major changes 01/22 transferred to icu for higher loc, dopamine on hold as bp is good, have increased Synthroid 01/23 labs are pending, meds noted, no bleeding, dopamine gtt ongoing, cbc noted 01/24 still nv, no bleeding, labs reviewed, vitaly rn, with rectal tube in place, on dopamine gtt 01/25 is on bipap, nv, no bleeding, remains on low dose pressorm hgb 11 01/27 on dopamine, hr was elevated overnight, cards aware 01/28 on vent, with ivfs running, rectal tube with red blood noted, consider gi eval 01/29 on vent, labs reviewed, wbc 22, hgb 8.4, on abx currently, vanc/flagyl/cefepime 02/02 labs reviewed, no bleeding, on vent, no night sweats, wbc improved Objective Objective Current Medications Medications (Trade) Dose Ordered Sig/Villa Route PRN Reason Start Time Stop Time Status Last Admin Dose Admin Acetaminophen (Tylenol) 650 mg Q4H PRN GT Temp >100.5 02/01/20 20:30 03/02/20 20:29 02/03/20 12:23 Ascorbic Acid (Vitamin C) 500 mg DAILY GT 01/28/20 09:30 02/27/20 09:29 02/03/20 08:13 Dextrose/Sodium Chloride 1,000 ml @ 75 mls/hr [id number] IV 01/29/20 13:00 02/27/20 12:59 02/03/20 17:31 Famotidine (Pepcid I.v.) 20 mg Q12HR IVP 01/29/20 21:00 02/28/20 20:59 02/03/20 20:43 Fidaxomicin (Dificid) 200 mg EVERY 12 HOURS ORAL 01/28/20 21:00 02/04/20 20:59 02/03/20 20:43 Gabapentin (Neurontin) 900 mg TID GT 01/28/20 09:30 02/19/20 09:29 02/03/20 17:29 Gentamicin Protocol (Gentamicin pharmacy to dose) 1 ea DAILY PRN MISC Per rx protocol 02/02/20 17:00 03/03/20 16:59 Gentamicin Sulfate 200 mg/ Sodium Chloride 115 ml @ 115 mls/hr Q24H IVPB 02/02/20 18:00 02/09/20 17:59 02/03/20 18:48 Haloperidol Lactate (Haldol) 5 mg Q6H PRN IM Agitation 01/28/20 09:30 02/15/20 09:29 Levetiracetam (Keppra) 1,500 mg Q12HR GT 01/28/20 09:30 02/07/20 09:29 02/03/20 20:44 Levothyroxine Sodium (Synthroid) 50 mcg ACBREAKFAST GT 01/29/20 06:30 02/10/20 06:29 02/03/20 05:59 Metronidazole 100 ml @ 100 mls/hr Q8HR IVPB 01/28/20 22:00 02/04/20 21:59 02/03/20 13:40 Midodrine (Pro-Amatine) 10 mg TID GT 01/28/20 18:00 04/21/20 09:29 02/03/20 17:30 Multivitamins (Multivitamins W/ Minerals 15ml Liquid) 15 ml DAILY GT 01/28/20 09:30 02/27/20 09:29 02/03/20 08:13 Oxcarbazepine (TrileptaL) 300 mg BEDTIME GT 01/28/20 21:00 02/07/20 20:59 02/03/20 20:43 Pantoprazole (Protonix) 40 mg EVERY 12 HOURS IVP 01/31/20 09:30 03/01/20 09:29 02/03/20 20:43 Potassium Phosphate 250 ml @ 62.5 mls/hr Q4H IVPB 02/03/20 15:30 02/03/20 23:29 02/03/20 16:16 Potassium Chloride (K-Dur) 40 meq TWICE A DAY ORAL 02/02/20 18:00 05/02/20 17:59 02/03/20 17:30 Sucralfate (Carafate) 1 gm FOUR TIMES A DAY ORAL 01/30/20 09:00 04/29/20 08:59 02/03/20 20:43 Thiamine HCl (Vitamin B1) 100 mg DAILY GT 01/28/20 09:30 02/27/20 09:29 02/03/20 08:14 Last 24 Hour Vital Signs Date Time Temp Pulse Resp B/P (MAP) Pulse Ox O2 Delivery O2 Flow Rate FiO2 02/03/20 19:05 83 26 30 02/03/20 16:00 81 02/03/20 16:00 30 02/03/20 16:00 98.6 85 16 98/56 (70) 100 02/03/20 15:20 88 22 30 02/03/20 12:53 98.4 02/03/20 12:00 94 02/03/20 12:00 100.8 85 15 102/57 (72) 100 02/03/20 12:00 30 02/03/20 11:00 91 24 30 02/03/20 09:42 100 02/03/20 08:00 30 02/03/20 08:00 78 02/03/20 08:00 96.8 77 20 101/55 (70) 100 02/03/20 07:20 78 18 30 02/03/20 04:00 30 02/03/20 04:00 96.6 65 20 100/51 (67) 100 02/03/20 03:58 74 02/03/20 03:30 79 21 30 02/03/20 00:00 30 02/03/20 00:00 97.7 62 18 100/72 (81) 100 02/02/20 23:32 44 02/02/20 22:53 57 22 30 02/02/20 20:00 97.7 66 18 100/69 (79) 100 02/02/20 20:00 30 02/02/20 19:25 62 02/02/20 19:04 61 22 30 02/02/20 16:00 30 02/02/20 16:00 98.2 71 18 123/64 (83) 99 71 02/02/20 16:00 65 02/02/20 15:10 67 19 30 02/02/20 12:00 66 02/02/20 12:00 30 02/02/20 11:44 97.5 67 19 92/50 (64) 100 67 02/02/20 11:00 63 21 30 02/02/20 09:00 100 02/02/20 08:13 97.9 80 20 94/44 (61) 100 80 02/02/20 08:00 30 02/02/20 07:56 71 02/02/20 07:10 70 21 30 02/02/20 04:39 81 02/02/20 04:00 30 02/02/20 04:00 97.9 80 24 97/52 (67) 100 02/02/20 02:34 79 22 30 02/01/20 23:53 99.3 84 27 87/49 (62) 100 02/01/20 23:42 80 02/01/20 22:58 100 28 30 02/01/20 21:37 98.1 Intake and Output 02/02/20 02/03/20 19:00 07:00 Intake Total 1840 ml 1783 ml Output Total 1300 ml 1700 ml Balance 540 ml 83 ml Intake Free Water 150 ml 250 ml IV Total 1000 ml 978 ml Tube Feeding 450 ml 555 ml Other 240 ml Output Urine Total 300 ml 1100 ml Stool Total 1000 ml 600 ml # Voids 1 Labs Test 02/01/20 02:40 02/01/20 12:15 02/01/20 17:25 02/02/20 02:00 White Blood Count 13.2 K/UL (4.8-10.8) Red Blood Count 3.09 M/UL (4.20-5.40) Hemoglobin 9.3 G/DL (12.0-16.0) Hematocrit 28.0 % (37.0-47.0) Mean Corpuscular Volume 90 FL (80-99) Mean Corpuscular Hemoglobin 30.1 PG (27.0-31.0) Mean Corpuscular Hemoglobin Concent 33.3 G/DL (32.0-36.0) Red Cell Distribution Width 14.7 % (11.6-14.8) Platelet Count 284 K/UL (150-450) Mean Platelet Volume 7.4 FL (6.5-10.1) Neutrophils (%) (Auto) 75.1 % (45.0-75.0) Lymphocytes (%) (Auto) 12.9 % (20.0-45.0) Monocytes (%) (Auto) 11.0 % (1.0-10.0) Eosinophils (%) (Auto) 0.3 % (0.0-3.0) Basophils (%) (Auto) 0.7 % (0.0-2.0) Sodium Level 140 MMOL/L (136-145) Potassium Level 3.5 MMOL/L (3.5-5.1) Chloride Level 110 MMOL/L (98-107) Carbon Dioxide Level 20 MMOL/L (21-32) Anion Gap 10 mmol/L (5-15) Blood Urea Nitrogen 4 mg/dL (7-18) Creatinine 0.3 MG/DL (0.55-1.30) Estimat Glomerular Filtration Rate > 60 mL/min (>60) Glucose Level 94 MG/DL (74-106) Calcium Level 7.2 MG/DL (8.5-10.1) Phosphorus Level 2.2 MG/DL (2.5-4.9) Magnesium Level 1.9 MG/DL (1.8-2.4) Total Bilirubin 0.3 MG/DL (0.2-1.0) Aspartate Amino Transf (AST/SGOT) 15 U/L (15-37) Alanine Aminotransferase (ALT/SGPT) 13 U/L (12-78) Alkaline Phosphatase 58 U/L (46-116) Total Protein 4.8 G/DL (6.4-8.2) Albumin 1.6 G/DL (3.4-5.0) Globulin 3.2 g/dL Albumin/Globulin Ratio 0.5 (1.0-2.7) POC Whole Blood Glucose 84 MG/DL (74-106) 105 MG/DL (74-106) Urine Color Yellow Urine Appearance Clear Urine pH 6 (4.5-8.0) Urine Specific [place] 1.015 (1.005-1.035) Urine Protein 1+ (NEGATIVE) Urine Glucose (UA) Negative (NEGATIVE) Urine Ketones Negative (NEGATIVE) Urine Blood 1+ (NEGATIVE) Urine Nitrite Negative (NEGATIVE) Urine Bilirubin Negative (NEGATIVE) Urine Urobilinogen Normal MG/DL (0.0-1.0) Urine Leukocyte Esterase 2+ (NEGATIVE) Urine RBC 0-2 /HPF (0 - 2) Urine WBC 5-10 /HPF (0 - 2) Urine Squamous Epithelial Cells Few /LPF (NONE/OCC) Urine Bacteria Few /HPF (NONE) Test 02/02/20 03:10 02/02/20 12:12 02/02/20 18:12 02/03/20 00:11 White Blood Count 23.3 K/UL (4.8-10.8) Red Blood Count 3.18 M/UL (4.20-5.40) Hemoglobin 9.7 G/DL (12.0-16.0) Hematocrit 28.3 % (37.0-47.0) Mean Corpuscular Volume 89 FL (80-99) Mean Corpuscular Hemoglobin 30.7 PG (27.0-31.0) Mean Corpuscular Hemoglobin Concent 34.4 G/DL (32.0-36.0) Red Cell Distribution Width 15.0 % (11.6-14.8) Platelet Count 264 K/UL (150-450) Mean Platelet Volume 6.3 FL (6.5-10.1) Neutrophils (%) (Auto) % (45.0-75.0) Lymphocytes (%) (Auto) % (20.0-45.0) Monocytes (%) (Auto) % (1.0-10.0) Eosinophils (%) (Auto) % (0.0-3.0) Basophils (%) (Auto) % (0.0-2.0) Differential Total Cells Counted 100 Neutrophils % (Manual) 73 % (45-75) Lymphocytes % (Manual) 6 % (20-45) Monocytes % (Manual) 8 % (1-10) Eosinophils % (Manual) 1 % (0-3) Basophils % (Manual) 0 % (0-2) Band Neutrophils 12 % (0-8) Platelet Estimate Adequate Platelet Morphology Normal Anisocytosis 1+ Sodium Level 141 MMOL/L (136-145) Potassium Level 2.7 MMOL/L (3.5-5.1) Chloride Level 108 MMOL/L (98-107) Carbon Dioxide Level 22 MMOL/L (21-32) Anion Gap 12 mmol/L (5-15) Blood Urea Nitrogen 2 mg/dL (7-18) Creatinine 0.4 MG/DL (0.55-1.30) Estimat Glomerular Filtration Rate > 60 mL/min (>60) Glucose Level 119 MG/DL (74-106) Calcium Level 7.1 MG/DL (8.5-10.1) Phosphorus Level 1.6 MG/DL (2.5-4.9) Magnesium Level 1.5 MG/DL (1.8-2.4) Total Bilirubin 0.2 MG/DL (0.2-1.0) Direct Bilirubin 0.1 MG/DL (0.0-0.3) Aspartate Amino Transf (AST/SGOT) 33 U/L (15-37) Alanine Aminotransferase (ALT/SGPT) 17 U/L (12-78) Alkaline Phosphatase 53 U/L (46-116) Total Protein 4.2 G/DL (6.4-8.2) Albumin 1.6 G/DL (3.4-5.0) POC Whole Blood Glucose 91 MG/DL (74-106) 99 MG/DL (74-106) Test 02/03/20 05:38 02/03/20 06:20 02/03/20 11:23 02/03/20 17:46 POC Whole Blood Glucose 113 MG/DL (74-106) 100 MG/DL (74-106) 91 MG/DL (74-106) White Blood Count 8.3 K/UL (4.8-10.8) Red Blood Count 3.53 M/UL (4.20-5.40) Hemoglobin 10.5 G/DL (12.0-16.0) Hematocrit 31.9 % (37.0-47.0) Mean Corpuscular Volume 90 FL (80-99) Mean Corpuscular Hemoglobin 29.8 PG (27.0-31.0) Mean Corpuscular Hemoglobin Concent 33.0 G/DL (32.0-36.0) Red Cell Distribution Width 15.0 % (11.6-14.8) Platelet Count 308 K/UL (150-450) Mean Platelet Volume 7.3 FL (6.5-10.1) Neutrophils (%) (Auto) 69.8 % (45.0-75.0) Lymphocytes (%) (Auto) 11.0 % (20.0-45.0) Monocytes (%) (Auto) 16.6 % (1.0-10.0) Eosinophils (%) (Auto) 1.4 % (0.0-3.0) Basophils (%) (Auto) 1.2 % (0.0-2.0) Sodium Level 144 MMOL/L (136-145) Potassium Level 3.6 MMOL/L (3.5-5.1) Chloride Level 112 MMOL/L (98-107) Carbon Dioxide Level 23 MMOL/L (21-32) Anion Gap 9 mmol/L (5-15) Blood Urea Nitrogen 4 mg/dL (7-18) Creatinine 0.5 MG/DL (0.55-1.30) Estimat Glomerular Filtration Rate > 60 mL/min (>60) Glucose Level 121 MG/DL (74-106) Calcium Level 7.6 MG/DL (8.5-10.1) Phosphorus Level 1.5 MG/DL (2.5-4.9) Magnesium Level 1.5 MG/DL (1.8-2.4) Total Bilirubin 0.2 MG/DL (0.2-1.0) Aspartate Amino Transf (AST/SGOT) 16 U/L (15-37) Alanine Aminotransferase (ALT/SGPT) 14 U/L (12-78) Alkaline Phosphatase 59 U/L (46-116) Total Protein 4.9 G/DL (6.4-8.2) Albumin 1.6 G/DL (3.4-5.0) Globulin 3.3 g/dL Albumin/Globulin Ratio 0.5 (1.0-2.7) Random Gentamicin Level 1.0 ug/mL Height (Feet): 5 Height (Inches): 1.00 Weight (Pounds): 81 Objective Vital Signs General Appearance: ++ cachectic, chronically ill HEENT: normocephalic, atraumatic ++ trach Resp: other -. vent ++ Cardiovascular: regular rate, rhythm, no edema Gastrointestinal: gtube in place, without erythema Rectal: other - Hemoccult positive [place]: back normal, gait/station normal, non-tender Lymphatic: no adenopathy Baltazar Cortes MD Feb 03, 2020 21:32
[2020-02-04] VITALS: BP 126/64
[2020-02-04 04:00] VITALS: BP 96/56
--- NOTE | 2020-02-04 07:28 | Pulmonology Progress Note ---
Ivanna Mora [employer] 02/04/20 0728: Subjective ROS Limited/Unobtainable: Yes Allergies: Coded Allergies: CARBAMAZEPINE (Verified Allergy, Unknown, 12/31/19) LORAZEPAM (Verified Allergy, Unknown, 12/31/19) All Systems: reviewed and negative except above Subjective in JULIANA no signs of resp distress on current vent settings BP better , on Midodrine, off Dopamine gtt no fevers since 01/31 leuk resolved CXR 02/01- Interval development of retrocardiac airspace opacities which could represent atelectasis versus developing consolidation. less output from rectal tube labs pending for this am Objective Last 24 Hour Vital Signs Date Time Temp Pulse Resp B/P (MAP) Pulse Ox O2 Delivery O2 Flow Rate FiO2 02/04/20 04:00 30 02/04/20 04:00 80 02/04/20 04:00 98.1 84 22 96/56 (69) 100 02/04/20 03:07 70 24 30 02/04/20 00:00 97.9 77 20 126/64 (84) 100 02/04/20 00:00 30 02/03/20 23:33 63 02/03/20 22:45 74 22 30 02/03/20 20:00 98.3 82 20 125/54 (77) 100 02/03/20 20:00 Mechanical Ventilator 02/03/20 20:00 30 02/03/20 19:31 82 02/03/20 19:05 83 26 30 02/03/20 16:00 81 02/03/20 16:00 30 02/03/20 16:00 98.6 85 16 98/56 (70) 100 02/03/20 15:20 88 22 30 02/03/20 12:53 98.4 02/03/20 12:00 94 02/03/20 12:00 100.8 85 15 102/57 (72) 100 02/03/20 12:00 30 02/03/20 11:00 91 24 30 02/03/20 09:42 100 02/03/20 08:00 30 02/03/20 08:00 78 02/03/20 08:00 96.8 77 20 101/55 (70) 100 Intake and Output 02/03/20 02/04/20 19:00 07:00 Intake Total 1910.0 ml 2140.0 ml Output Total 520 ml 1250 ml Balance 1390.0 ml 890.0 ml Intake Free Water 150 ml IV Total 1250.0 ml 1440.0 ml Tube Feeding 660 ml 550 ml Output Urine Total 120 ml 250 ml Stool Total 400 ml 1000 ml # Voids 2 1 Objective General Appearance: bedridden, pale, chronically ill looking, older than her biological age ; vent dependent female ; on vent SIMV 450-30%-12, PEEP 5 Lines, tubes and drains: trach HEENT: normocephalic, atraumatic Neck: trach - Portex #7, secretions small amount, yellow color, thin consistency Respiratory/Chest: CTAB Cardiovascular/Chest: regular rate, regular rhythm Abdomen: non tender, soft, G tube , rectal tube Genitourinary/Rectal: [place] Extremities: no edema, muscle atrophy Neurologic: abnormal gait, poorly responsive, eyes open spontaneously Musculoskeletal: atrophy BLE Skin: multiple tattoos Laboratory Tests 02/03/20 11:23: POC Whole Blood Glucose 100 02/03/20 17:46: POC Whole Blood Glucose 91 02/04/20 00:44: POC Whole Blood Glucose 101 02/04/20 06:15: POC Whole Blood Glucose 97 02/04/20 07:00: Sodium Level [Pending], Potassium Level [Pending], Chloride Level [Pending], Carbon Dioxide Level [Pending], Blood Urea Nitrogen [Pending], Creatinine [Pending], Estimat Glomerular Filtration Rate [Pending], Glucose Level [Pending], Calcium Level [Pending], Phosphorus Level [Pending], Magnesium Level [Pending], Total Bilirubin [Pending], Aspartate Amino Transf (AST/SGOT) [Pending], Alanine Aminotransferase (ALT/SGPT) [Pending], Alkaline Phosphatase [Pending], Total Protein [Pending], Albumin [Pending], Globulin [Pending] Current Medications Medications (Trade) Dose Ordered Sig/Villa Route PRN Reason Start Time Stop Time Status Last Admin Dose Admin Acetaminophen (Tylenol) 650 mg Q4H PRN GT Temp >100.5 02/01/20 20:30 03/02/20 20:29 02/03/20 12:23 Ascorbic Acid (Vitamin C) 500 mg DAILY GT 01/28/20 09:30 02/27/20 09:29 02/03/20 08:13 Dextrose/Sodium Chloride 1,000 ml @ 75 mls/hr [id number] IV 01/29/20 13:00 02/27/20 12:59 02/03/20 17:31 Famotidine (Pepcid I.v.) 20 mg Q12HR IVP 01/29/20 21:00 02/28/20 20:59 02/03/20 20:43 Fidaxomicin (Dificid) 200 mg EVERY 12 HOURS ORAL 01/28/20 21:00 02/04/20 20:59 02/03/20 20:43 Gabapentin (Neurontin) 900 mg TID GT 01/28/20 09:30 02/19/20 09:29 02/03/20 17:29 Gentamicin Protocol (Gentamicin pharmacy to dose) 1 ea DAILY PRN MISC Per rx protocol 02/02/20 17:00 03/03/20 16:59 Gentamicin Sulfate 200 mg/ Sodium Chloride 115 ml @ 115 mls/hr Q24H IVPB 02/02/20 18:00 02/09/20 17:59 02/03/20 18:48 Haloperidol Lactate (Haldol) 5 mg Q6H PRN IM Agitation 01/28/20 09:30 02/15/20 09:29 Levetiracetam (Keppra) 1,500 mg Q12HR GT 01/28/20 09:30 02/07/20 09:29 02/03/20 20:44 Levothyroxine Sodium (Synthroid) 50 mcg ACBREAKFAST GT 01/29/20 06:30 02/10/20 06:29 02/04/20 06:06 Metronidazole 100 ml @ 100 mls/hr Q8HR IVPB 01/28/20 22:00 02/04/20 21:59 02/04/20 06:07 Midodrine (Pro-Amatine) 10 mg TID GT 01/28/20 18:00 04/21/20 09:29 02/03/20 17:30 Multivitamins (Multivitamins W/ Minerals 15ml Liquid) 15 ml DAILY GT 01/28/20 09:30 02/27/20 09:29 02/03/20 08:13 Oxcarbazepine (TrileptaL) 300 mg BEDTIME GT 01/28/20 21:00 02/07/20 20:59 02/03/20 20:43 Pantoprazole (Protonix) 40 mg EVERY 12 HOURS IVP 01/31/20 09:30 03/01/20 09:29 02/03/20 20:43 Potassium Chloride (K-Dur) 40 meq TWICE A DAY ORAL 02/02/20 18:00 05/02/20 17:59 02/03/20 17:30 Sucralfate (Carafate) 1 gm FOUR TIMES A DAY ORAL 01/30/20 09:00 04/29/20 08:59 02/03/20 20:43 Thiamine HCl (Vitamin B1) 100 mg DAILY GT 01/28/20 09:30 02/27/20 09:29 02/03/20 08:14 Assessment/Plan Assessment/Plan ASSESSMENT VDRF/trach status Sepsis Possible pneumonia UTI recurrent GI bleeding severe C dif colitis Anemia secondary to GI bleeding Aspiration risk Dysphagia, feeding by G-tube Encephalopathy Acute kidney injury likely secondary to dehydration Recurrent bradycardia persistent Hypotension Electrolyte imbalance Severe protein calorie malnutrition Hx of hypertension History of CVA Seizure disorder with witnessed seizure episode 01/07 Psychiatric disorder Presumed scabies, s/p Rx Thrombocytopenia-transient- resolved PLAN OF CARE JULIANA off Dopamine gtt, BP better with Midodrine only on IVF, vent support, pulm toilet ABG stable on current settings on SIMV mode 450-30-12 PEEP5 , no signs of resp distress on these settings keep settings as is and titrate as needed now tachypneic intermittently CXR 01/27 no acute disease pulm toilet via N CT chest 01/28 - with tree-in-bud nodular opacities in the medial left base and lingula with left bronchial bubbly material suggesting infectious or inflammatory bronchiolitis, likely due to aspiration. Small amount of similar foci seen in the right posterior lower lobe. Mild bronchiectasis and reticulation in the lingula, medial left base, and superior left upper lobe could also be due to chronic infection. CXR 02/11 -Interval development of retrocardiac airspace opacities which could represent atelectasis versus developing consolidation. probably ATX , given no fevers, resolved leukocytosis, no resp distress on current settings will fup with CXR in am leuk resolved , no fevers since 01/31 pancx-per ID CXR 01/13- no acute findings KUB 01/13- no acute findings UA + yeast , 01/12 UCX +yeast, started on Fluconazole 01/14 as per ID -completed BCX 01/12 NGTD BCX 01/26 and 01/27 NGTD UCX 01/27 + Klebs CR- started on Gent per ID recs given prior leukocytosis and fevers - abx as per ID recs Vanco po was prior dc and switched to Dificid , also on Flagyl per GI -till 01/28 , both extended till 02/03 inflammatory markers : ESR-42, CRP- wnl WBC smear NGT C dif a/b 01/30 NGT less output from rectal tube CT C/ A/P noted ( see results of CT chest above), CT A/P with findings most compatible with ileus and probable infectious or inflammatory enteritis or enterocolitis. off cefepime rapid COVID 19 NGT in ED aspiration precautions Venous Duplex BLE -negative, get SCD ( unable to give a/c given anemia) closely monitor hemodynamic status heme and GI follows s/p prior EGD 01/01 -> gastric ulcer across G tube site , no active bleeding s/p EGD 01/30 -> gastric ulceration without visible bleeding Protonix IV bid ( changed from Protonix gtt), Carafate GT feeding resumed as per GI , s/p blood tx 01/30 stool OB positive , another pending transfuse to keep Hgb > 7. HH at baseline trend LFT-> trended down, hep panel NGT hx of cirrhosis- per GI management monitor renal parameters, lytes, avoid nephrotoxic IVF BUN trending down, creat stable, likely prerenal due to dehydration replace e/lytes as per nephro recs , K , P and Mg replaced this am as per nephro monitor volumes seizure precautions, antiepileptic optimized as per neuro recs ammonia 49, fup with further neuro recs EEG - grossly abnormal; mild to mod encephalopathy, single ictal episode CT head no acute IC pathology BP management with current regimen SNF meds supportive care dietary recs s/p 12/31 Rx for presumed scabies with permethrin and Ivermectin, repeated Ivermectin 01/08 case discussed and evaluated by supervising physician Jeyson Anderson MD 02/04/20 1349: Subjective Allergies: Coded Allergies: CARBAMAZEPINE (Verified Allergy, Unknown, 12/31/19) LORAZEPAM (Verified Allergy, Unknown, 12/31/19) Assessment/Plan Assessment/Plan Patient seen and examined with [employer] and I agree with the above formulated assessment and plan. Ivanna Mora NP Feb 04, 2020 07:28 Jeyson Anderson MD Feb 04, 2020 13:49
[2020-02-04 08:00] VITALS: BP 97/62
[2020-02-04 08:13] LABS: ALANINE AMINOTRANSFERASE 13 U/L (12-78); ALBUMIN 1.6 G/DL (3.4-5.0); ALBUMIN/GLOBULIN RATIO 0.4 (1.0-2.7); ALKALINE PHOSPHATASE 72 U/L (46-116); ANION GAP 10 mmol/L (5-15); ASPARTATE AMINO TRANSFERASE 12 U/L (15-37); BILIRUBIN,TOTAL 0.2 MG/DL (0.2-1.0); BLOOD UREA NITROGEN 3 mg/dL (7-18); CALCIUM 7.7 MG/DL (8.5-10.1); CARBON DIOXIDE 22 MMOL/L (21-32); CHLORIDE 112 MMOL/L (98-107); CREATININE 0.3 MG/DL (0.55-1.30); PHOSPHORUS 2.7 MG/DL (2.5-4.9); POTASSIUM 4.1 MMOL/L (3.5-5.1); SODIUM 144 MMOL/L (136-145)
[2020-02-04] MEDS: Ascorbic Acid 500mg tab GT SCH (08:30)
[2020-02-04] MEDS: Gabapentin 300 MG/6 ML Soln GT SCH ×3 (08:30→17:40)
[2020-02-04] MEDS: Sucralfate 1gm tab ORAL SCH ×4 (08:30→21:07)
[2020-02-04] MEDS: Thiamine 100mg tab GT SCH (08:31)
[2020-02-04] MEDS: Multivitamins W/Minerals 15 ML UDC GT SCH (08:31)
[2020-02-04] MEDS: Pantoprazole Inj IVP SCH ×2 (08:31→21:08)
[2020-02-04] MEDS: levETIRAcetam 500mg/5ml Liquid GT SCH ×2 (08:32→21:09)
--- NOTE | 2020-02-04 09:02 | General Progress Note ---
Subjective ROS Limited/Unobtainable: No Allergies: Coded Allergies: CARBAMAZEPINE (Verified Allergy, Unknown, 12/31/19) LORAZEPAM (Verified Allergy, Unknown, 12/31/19) Objective Last 24 Hour Vital Signs Date Time Temp Pulse Resp B/P (MAP) Pulse Ox O2 Delivery O2 Flow Rate FiO2 02/04/20 08:00 83 02/04/20 08:00 30 02/04/20 08:00 98.1 92 28 97/62 (74) 99 02/04/20 07:16 87 23 30 02/04/20 04:00 30 02/04/20 04:00 80 02/04/20 04:00 98.1 84 22 96/56 (69) 100 02/04/20 03:07 70 24 30 02/04/20 00:00 97.9 77 20 126/64 (84) 100 02/04/20 00:00 30 02/03/20 23:33 63 02/03/20 22:45 74 22 30 02/03/20 20:00 98.3 82 20 125/54 (77) 100 02/03/20 20:00 Mechanical Ventilator 02/03/20 20:00 30 02/03/20 19:31 82 02/03/20 19:05 83 26 30 02/03/20 16:00 81 02/03/20 16:00 30 02/03/20 16:00 98.6 85 16 98/56 (70) 100 02/03/20 15:20 88 22 30 02/03/20 12:53 98.4 02/03/20 12:00 94 02/03/20 12:00 100.8 85 15 102/57 (72) 100 02/03/20 12:00 30 02/03/20 11:00 91 24 30 02/03/20 09:42 100 Intake and Output 02/03/20 02/04/20 19:00 07:00 Intake Total 1910.0 ml 2140.0 ml Output Total 520 ml 1250 ml Balance 1390.0 ml 890.0 ml Intake Free Water 150 ml IV Total 1250.0 ml 1440.0 ml Tube Feeding 660 ml 550 ml Output Urine Total 120 ml 250 ml Stool Total 400 ml 1000 ml # Voids 2 1 Laboratory Tests 02/03/20 11:23: POC Whole Blood Glucose 100 02/03/20 17:46: POC Whole Blood Glucose 91 02/04/20 00:44: POC Whole Blood Glucose 101 02/04/20 06:15: POC Whole Blood Glucose 97 02/04/20 07:00: Sodium Level 144, Potassium Level 4.1, Chloride Level 112H, Carbon Dioxide Level 22, Anion Gap 10, Blood Urea Nitrogen 3L, Creatinine 0.3L, Estimat Glomerular Filtration Rate > 60, Glucose Level 94, Calcium Level 7.7L, Phosphorus Level 2.7, Magnesium Level 2.0, Total Bilirubin 0.2, Aspartate Amino Transf (AST/SGOT) 12L, Alanine Aminotransferase (ALT/SGPT) 13, Alkaline Phosphatase 72, Total P rotein 5.2L, Albumin 1.6L, Globulin 3.6, Albumin/Globulin Ratio 0.4L Height (Feet): 5 Height (Inches): 1.00 Weight (Pounds): 81 General Appearance: no apparent distress EENT: normal ENT inspection Neck: supple Cardiovascular: normal rate Respiratory/Chest: decreased breath sounds Abdomen: normal bowel sounds, non tender, soft Extremities: non-tender Assessment/Plan Problem List: (1) G tube feedings ICD Codes: Z93.1 - Gastrostomy status SNOMED: 063045767, 811638144, [id number] (2) GI bleed ICD Codes: K92.2 - Gastrointestinal hemorrhage, unspecified SNOMED: 41761368 (3) Sepsis ICD Codes: A41.9 - Sepsis, unspecified organism SNOMED: 68661576 (4) Pneumonia ICD Codes: J18.9 - Pneumonia, unspecified organism SNOMED: 006990240 Status: stable, other - Patient is now hypotensive before over 46 she will receive 500 cc of normal saline bolus to be repeated blood pressure remained below 90 further management will be decided following the boluses treatment repeat laboratory tests will be done in a.m. GEM MCKAY MD Assessment/Plan: s/p EGD gastric ulcer monitor H&H C. Diff positive po dificid famotidine IV carafate and ppi will Satish Junior MD Feb 04, 2020 09:02
[2020-02-04] MEDS: D5 1/2NS 1,000 ML IV SCH ×2 (09:22→23:09)
--- NOTE | 2020-02-04 11:26 | Hematology/Onc Progress Note ---
Assessment/Plan Assessment/Plan # Anemia rule out underlying gi bleed --> Dr. Carrillo has been consulted-->endosco gastric ulceration --> trend hgb 7-->7.4-->7.9-->8.1->9.6-->8.5->9.1-->10-->11-->10.3-->10.4-->11->9.8-->7.4 ->9-->10.5 --> anemia panel ordered-->reviewed --> prn transfusion --> protonix started # Leukocytosis is likely related to pna on imaging --> abx has been started --> if wbc worsens, consider abx vanc/zosyn--> ceftriaxone-->vanc->fluc/flagyl/vanc-->flagyl /fidoxomicin->vanc/cefepime/flagyl-->gentamcinflagyl --> smear is noted --> wbc 25-->15-->14-->16->7.6-->12-->20->13->11->14-->33-->16->8 --> pressors prn # Thrombocytopenia med related v labs error --> plt trend 167-->61-->227->373 --> meds have been reviewed --> no hep or lovenox # Sepsis --> on abx for pna --> pressors as needed --> fluids as per pcp for hypotension # Pneumonia --> pulm, Dr. 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 data power consultant care, will follow Subjective Gastrointestinal/Abdominal: Denies: no symptoms, abdomen distended, abdominal pain, black stools, tarry stools, blood in stool, constipated, diarrhea, difficulty swallowing, nausea, poor appetite, poor fluid intake, rectal bleeding, vomiting, other Allergies: Coded Allergies: CARBAMAZEPINE (Verified Allergy, Unknown, 12/31/19) LORAZEPAM (Verified Allergy, Unknown, 12/31/19) All Systems: reviewed and negative except above Subjective 01/01 altered, trach, no bleedin wbc improved on abx, seen by gi 01/02 egd study noted, also with plts 61k, have vitaly Armendariz Rn, will recheck cbc 01/03 remains agitated, vitaly rn, no bleeding, cbc noted as well as id recs 01/04 on vent, with melena overnight, no bleeding, vitaly rn, labs reviewed 01/06 on vent, remains agitated, no bleeding, vitaly rn, smear is noted 01/07 on vent, restless, asymptomatic, noncooperative 01/[address] John obtained, reviewed, meds adjusted, eeg pending 01/09 labs noted, no bleeding, ativan has been discontinued, meds reviewed 01/10 trach to vent, agitated, with wrist restraints, no major changes, no bleeding 01/11 labs are reviewed, on trach to vent, no bleeding, agitated overnight, no complaints 01/13 labs noted, no bleeding, is on vent/trach, no bleeding, vitaly rn, labs are noted 01/14 labs are noted, no bleeding, remains on v/t, remains agitated, no bleeding 01/15 is c.diff positive, wbc higher at 21k, labs noted, on abx, reviewed gi, id recs 01/16 remains on vent, wbc is improved, in sr, as abx per id 01/17 recieved dopamine, tube feeds, on soft restraints, no bleeding, vitaly longoria 01/18 labs are noted, no bleeding, vitaly rn, no major changes 01/20 on dopamine gtt, with restraints, no major changes, labs noted 01/21 labs reviewed, no bleeding, vitaly rn, no major changes 01/22 transferred to icu for higher loc, dopamine on hold as bp is good, have increased Synthroid 01/23 labs are pending, meds noted, no bleeding, dopamine gtt ongoing, cbc noted 01/24 still nv, no bleeding, labs reviewed, vitaly longoria, with rectal tube in place, on dopamine gtt 01/25 is on bipap, nv, no bleeding, remains on low dose pressorm hgb 11 01/27 on dopamine, hr was elevated overnight, cards aware 01/28 on vent, with ivfs running, rectal tube with red blood noted, consider gi eval 01/29 on vent, labs reviewed, wbc 22, hgb 8.4, on abx currently, vanc/flagyl/cefepime 02/02 labs reviewed, no bleeding, on vent, no night sweats, wbc improved 02/03 is on gtube feeds, with trach to vent, oxygen as needed, labs wbc better Objective Objective Current Medications Medications (Trade) Dose Ordered Sig/Villa Route PRN Reason Start Time Stop Time Status Last Admin Dose Admin Acetaminophen (Tylenol) 650 mg Q4H PRN GT Temp >100.5 02/01/20 20:30 03/02/20 20:29 02/03/20 12:23 Ascorbic Acid (Vitamin C) 500 mg DAILY GT 01/28/20 09:30 02/27/20 09:29 02/04/20 08:30 Dextrose/Sodium Chloride 1,000 ml @ 75 mls/hr [id number] IV 01/29/20 13:00 02/27/20 12:59 02/04/20 09:22 Famotidine (Pepcid I.v.) 20 mg Q12HR IVP 01/29/20 21:00 02/28/20 20:59 02/04/20 08:31 Fidaxomicin (Dificid) 200 mg EVERY 12 HOURS ORAL 01/28/20 21:00 02/04/20 20:59 02/04/20 09:21 Gabapentin (Neurontin) 900 mg TID GT 01/28/20 09:30 02/19/20 09:29 02/04/20 08:30 Gentamicin Protocol (Gentamicin pharmacy to dose) 1 ea DAILY PRN MISC Per rx protocol 02/02/20 17:00 03/03/20 16:59 Gentamicin Sulfate 200 mg/ Sodium Chloride 115 ml @ 115 mls/hr Q24H IVPB 02/02/20 18:00 02/09/20 17:59 02/03/20 18:48 Haloperidol Lactate (Haldol) 5 mg Q6H PRN IM Agitation 01/28/20 09:30 02/15/20 09:29 Levetiracetam (Keppra) 1,500 mg Q12HR GT 01/28/20 09:30 02/07/20 09:29 02/04/20 08:32 Levothyroxine Sodium (Synthroid) 50 mcg ACBREAKFAST GT 01/29/20 06:30 02/10/20 06:29 02/04/20 06:06 Metronidazole 100 ml @ 100 mls/hr Q8HR IVPB 01/28/20 22:00 02/04/20 21:59 02/04/20 06:07 Midodrine (Pro-Amatine) 10 mg TID GT 01/28/20 18:00 04/21/20 09:29 02/04/20 08:30 Multivitamins (Multivitamins W/ Minerals 15ml Liquid) 15 ml DAILY GT 01/28/20 09:30 02/27/20 09:29 02/04/20 08:31 Oxcarbazepine (TrileptaL) 300 mg BEDTIME GT 01/28/20 21:00 02/07/20 20:59 02/03/20 20:43 Pantoprazole (Protonix) 40 mg EVERY 12 HOURS IVP 01/31/20 09:30 03/01/20 09:29 02/04/20 08:31 Potassium Chloride (K-Dur) 40 meq TWICE A DAY ORAL 02/02/20 18:00 05/02/20 17:59 02/04/20 08:31 Sucralfate (Carafate) 1 gm FOUR TIMES A DAY ORAL 01/30/20 09:00 04/29/20 08:59 02/04/20 08:30 Thiamine HCl (Vitamin B1) 100 mg DAILY GT 01/28/20 09:30 02/27/20 09:29 02/04/20 08:31 Last 24 Hour Vital Signs Date Time Temp Pulse Resp B/P (MAP) Pulse Ox O2 Delivery O2 Flow Rate FiO2 02/04/20 10:40 90 26 30 02/04/20 09:00 100 02/04/20 08:00 83 02/04/20 08:00 30 02/04/20 08:00 98.1 92 28 97/62 (74) 99 02/04/20 08:00 Mechanical Ventilator 02/04/20 07:16 87 23 30 02/04/20 04:00 30 02/04/20 04:00 80 02/04/20 04:00 98.1 84 22 96/56 (69) 100 02/04/20 03:07 70 24 30 02/04/20 00:00 97.9 77 20 126/64 (84) 100 02/04/20 00:00 30 02/03/20 23:33 63 02/03/20 22:45 74 22 30 02/03/20 20:00 98.3 82 20 125/54 (77) 100 02/03/20 20:00 Mechanical Ventilator 02/03/20 20:00 30 02/03/20 19:31 82 02/03/20 19:05 83 26 30 02/03/20 16:00 81 02/03/20 16:00 30 02/03/20 16:00 98.6 85 16 98/56 (70) 100 02/03/20 15:20 88 22 30 02/03/20 12:53 98.4 02/03/20 12:00 94 02/03/20 12:00 100.8 85 15 102/57 (72) 100 02/03/20 12:00 30 02/03/20 11:00 91 24 30 02/03/20 09:42 100 02/03/20 08:00 30 02/03/20 08:00 78 02/03/20 08:00 96.8 77 20 101/55 (70) 100 02/03/20 07:20 78 18 30 02/03/20 04:00 30 02/03/20 04:00 96.6 65 20 100/51 (67) 100 02/03/20 03:58 74 02/03/20 03:30 79 21 30 02/03/20 00:00 Mechanical Ventilator 02/03/20 00:00 30 02/03/20 00:00 97.7 62 18 100/72 (81) 100 02/02/20 23:32 44 02/02/20 22:53 57 22 30 02/02/20 20:00 97.7 66 18 100/69 (79) 100 02/02/20 20:00 30 02/02/20 20:00 Mechanical Ventilator 02/02/20 19:25 62 02/02/20 19:04 61 22 30 02/02/20 16:00 30 02/02/20 16:00 98.2 71 18 123/64 (83) 99 71 20 16:00 65 20 15:10 67 19 30 02/02/20 12:00 66 02/02/20 12:00 30 02/02/20 11:44 97.5 67 19 92/50 (64) 100 67 Intake and Output 02/03/20 02/04/20 19:00 07:00 Intake Total 1910.0 ml 2140.0 ml Output Total 520 ml 1250 ml Balance 1390.0 ml 890.0 ml Intake Free Water 150 ml IV Total 1250.0 ml 1440.0 ml Tube Feeding 660 ml 550 ml Output Urine Total 120 ml 250 ml Stool Total 400 ml 1000 ml # Voids 2 1 Labs Test 02/01/20 12:15 02/01/20 17:25 02/02/20 02:00 02/02/20 03:10 POC Whole Blood Glucose 84 MG/DL (74-106) 105 MG/DL (74-106) Urine Color Yellow Urine Appearance Clear Urine pH 6 (4.5-8.0) Urine Specific [place] 1.015 (1.005-1.035) Urine Protein 1+ (NEGATIVE) Urine Glucose (UA) Negative (NEGATIVE) Urine Ketones Negative (NEGATIVE) Urine Blood 1+ (NEGATIVE) Urine Nitrite Negative (NEGATIVE) Urine Bilirubin Negative (NEGATIVE) Urine Urobilinogen Normal MG/DL (0.0-1.0) Urine Leukocyte Esterase 2+ (NEGATIVE) Urine RBC 0-2 /HPF (0 - 2) Urine WBC 5-10 /HPF (0 - 2) Urine Squamous Epithelial Cells Few /LPF (NONE/OCC) Urine Bacteria Few /HPF (NONE) White Blood Count 23.3 K/UL (4.8-10.8) Red Blood Count 3.18 M/UL (4.20-5.40) Hemoglobin 9.7 G/DL (12.0-16.0) Hematocrit 28.3 % (37.0-47.0) Mean Corpuscular Volume 89 FL (80-99) Mean Corpuscular Hemoglobin 30.7 PG (27.0-31.0) Mean Corpuscular Hemoglobin Concent 34.4 G/DL (32.0-36.0) Red Cell Distribution Width 15.0 % (11.6-14.8) Platelet Count 264 K/UL (150-450) Mean Platelet Volume 6.3 FL (6.5-10.1) Neutrophils (%) (Auto) % (45.0-75.0) Lymphocytes (%) (Auto) % (20.0-45.0) Monocytes (%) (Auto) % (1.0-10.0) Eosinophils (%) (Auto) % (0.0-3.0) Basophils (%) (Auto) % (0.0-2.0) Differential Total Cells Counted 100 Neutrophils % (Manual) 73 % (45-75) Lymphocytes % (Manual) 6 % (20-45) Monocytes % (Manual) 8 % (1-10) Eosinophils % (Manual) 1 % (0-3) Basophils % (Manual) 0 % (0-2) Band Neutrophils 12 % (0-8) Platelet Estimate Adequate Platelet Morphology Normal Anisocytosis 1+ Sodium Level 141 MMOL/L (136-145) Potassium Level 2.7 MMOL/L (3.5-5.1) Chloride Level 108 MMOL/L (98-107) Carbon Dioxide Level 22 MMOL/L (21-32) Anion Gap 12 mmol/L (5-15) Blood Urea Nitrogen 2 mg/dL (7-18) Creatinine 0.4 MG/DL (0.55-1.30) Estimat Glomerular Filtration Rate > 60 mL/min (>60) Glucose Level 119 MG/DL (74-106) Calcium Level 7.1 MG/DL (8.5-10.1) Phosphorus Level 1.6 MG/DL (2.5-4.9) Magnesium Level 1.5 MG/DL (1.8-2.4) Total Bilirubin 0.2 MG/DL (0.2-1.0) Direct Bilirubin 0.1 MG/DL (0.0-0.3) Aspartate Amino Transf (AST/SGOT) 33 U/L (15-37) Alanine Aminotransferase (ALT/SGPT) 17 U/L (12-78) Alkaline Phosphatase 53 U/L (46-116) Total Protein 4.2 G/DL (6.4-8.2) Albumin 1.6 G/DL (3.4-5.0) Test 02/02/20 12:12 02/02/20 18:12 02/03/20 00:11 02/03/20 05:38 POC Whole Blood Glucose 91 MG/DL (74-106) 99 MG/DL (74-106) 113 MG/DL (74-106) Test 02/03/20 06:20 02/03/20 11:23 02/03/20 17:46 02/04/20 00:44 White Blood Count 8.3 K/UL (4.8-10.8) Red Blood Count 3.53 M/UL (4.20-5.40) Hemoglobin 10.5 G/DL (12.0-16.0) Hematocrit 31.9 % (37.0-47.0) Mean Corpuscular Volume 90 FL (80-99) Mean Corpuscular Hemoglobin 29.8 PG (27.0-31.0) Mean Corpuscular Hemoglobin Concent 33.0 G/DL (32.0-36.0) Red Cell Distribution Width 15.0 % (11.6-14.8) Platelet Count 308 K/UL (150-450) Mean Platelet Volume 7.3 FL (6.5-10.1) Neutrophils (%) (Auto) 69.8 % (45.0-75.0) Lymphocytes (%) (Auto) 11.0 % (20.0-45.0) Monocytes (%) (Auto) 16.6 % (1.0-10.0) Eosinophils (%) (Auto) 1.4 % (0.0-3.0) Basophils (%) (Auto) 1.2 % (0.0-2.0) Sodium Level 144 MMOL/L (136-145) Potassium Level 3.6 MMOL/L (3.5-5.1) Chloride Level 112 MMOL/L (98-107) Carbon Dioxide Level 23 MMOL/L (21-32) Anion Gap 9 mmol/L (5-15) Blood Urea Nitrogen 4 mg/dL (7-18) Creatinine 0.5 MG/DL (0.55-1.30) Estimat Glomerular Filtration Rate > 60 mL/min (>60) Glucose Level 121 MG/DL (74-106) Calcium Level 7.6 MG/DL (8.5-10.1) Phosphorus Level 1.5 MG/DL (2.5-4.9) Magnesium Level 1.5 MG/DL (1.8-2.4) Total Bilirubin 0.2 MG/DL (0.2-1.0) Aspartate Amino Transf (AST/SGOT) 16 U/L (15-37) Alanine Aminotransferase (ALT/SGPT) 14 U/L (12-78) Alkaline Phosphatase 59 U/L (46-116) Total Protein 4.9 G/DL (6.4-8.2) Albumin 1.6 G/DL (3.4-5.0) Globulin 3.3 g/dL Albumin/Globulin Ratio 0.5 (1.0-2.7) Random Gentamicin Level 1.0 ug/mL POC Whole Blood Glucose 100 MG/DL (74-106) 91 MG/DL (74-106) 101 MG/DL (74-106) Test 02/04/20 06:15 02/04/20 07:00 POC Whole Blood Glucose 97 MG/DL (74-106) Sodium Level 144 MMOL/L (136-145) Potassium Level 4.1 MMOL/L (3.5-5.1) Chloride Level 112 MMOL/L (98-107) Carbon Dioxide Level 22 MMOL/L (21-32) Anion Gap 10 mmol/L (5-15) Blood Urea Nitrogen 3 mg/dL (7-18) Creatinine 0.3 MG/DL (0.55-1.30) Estimat Glomerular Filtration Rate > 60 mL/min (>60) Glucose Level 94 MG/DL (74-106) Calcium Level 7.7 MG/DL (8.5-10.1) Phosphorus Level 2.7 MG/DL (2.5-4.9) Magnesium Level 2.0 MG/DL (1.8-2.4) Total Bilirubin 0.2 MG/DL (0.2-1.0) Aspartate Amino Transf (AST/SGOT) 12 U/L (15-37) Alanine Aminotransferase (ALT/SGPT) 13 U/L (12-78) Alkaline Phosphatase 72 U/L (46-116) Total Protein 5.2 G/DL (6.4-8.2) Albumin 1.6 G/DL (3.4-5.0) Globulin 3.6 g/dL Albumin/Globulin Ratio 0.4 (1.0-2.7) Height (Feet): 5 Height (Inches): 1.00 Weight (Pounds): 81 Objective Vital Signs General Appearance: ++ cachectic, chronically ill HEENT: normocephalic, atraumatic ++ trach Resp: other -. vent ++ Cardiovascular: regular rate, rhythm, no edema Gastrointestinal: gtube in place, without erythema Rectal: other - Hemoccult positive [place]: back normal, gait/station normal, non-tender Lymphatic: no adenopathy Baltazar Cortes MD Feb 04, 2020 11:26
[2020-02-04 12:00] VITALS: BP 114/71
--- NOTE | 2020-02-04 13:11 | Nephrology Progress Note ---
Assessment/Plan Problem List: (1) RICHARD (acute kidney injury) (2) Dehydration (3) Anemia (4) GI bleed (5) Malnutrition (6) Seizure disorder (7) Electrolyte imbalance Assessment Renal failure, in the form of prerenal azotemia, most likely secondary to GI bleed GI bleed, leading to severe anemia Sepsis, pneumonia Chronic tracheostomy, ventilator dependent History of CVA History of seizure disorder History of psychiatric disorder Severe malnutrition Electrolyte abnormalities Plan February 03: Labs reviewed. Renal parameters stable. Continue her consultants. February 02: Lab reviewed. Low phosphorus low magnesium corrections ordered. Continue to monitor electrolytes and renal parameters. February 01: Lab reviewed. Low phosphorus and low magnesium replaced. Low potassium replaced. Continue to monitor electrolytes. Continue per consultants. January 31: Lab reviewed. Hemoglobin higher. Renal parameters stable. Potassium and phosphorus supplement given. January 30: Labs reviewed. Low mag low phosphorus and low potassium replaced. White blood cells 16,000 today. Remains full code. Continue to monitor hemoglobin and hematocrit and electrolytes. January 29: Labs reviewed. Magnesium, potassium, phosphorus supplement given. White blood cells down to 22,000. Remains full code. Continue per [place]. RN reports rectal bleed. Hemoglobin drifting down. Defer management to ict developer who is already on the case. January 28: Status quo. Electrolyte abnormalities noted. Mag Phos and potassium supplement IV given. Renal parameters stable. Continue per consultants. Leukocytosis persists. January 27: Significant rise in white blood cell counts. Hypotensive. Now in ICU. Will give albumin bolus. Continue to monitor renal parameters. Continue per ID advice. January 26: Continue to monitor renal parameters. Patient remains on ventilator. Patient is full code. Continue per consultants. January 25: Status quo. Labs reviewed. Continue per consultants. January 24: Status unchanged. Labs reviewed. Remains stable from renal mary ellen dpoint of view. January 23: Back in [facility]. Stable from renal standpoint of view. Continue per consultants. January 22: Patient in ICU now. Vital signs and heart rate and blood pressure appears to be stable. Patient had an episode of bradycardia but it was resolved. TSH level today is very low will cut down on Synthroid dose. January 21: Today's labs are reviewed. Stable renal parameters. Continue per consultants. January 20: Labs reviewed. Renal parameters stable. January 19: Labs reviewed. Stable from renal standpoint. January 18: No labs done today. Continue per consultants. Medications reviewed. January 17: Late note entry due to system problem at the [facility] [place].Chemistry panel reviewed. Stable from renal standpoint of view. Continue per current management. January 16: No can panel today. Check lab tomorrow. Remains stable from renal standpoint of view. January 15: Lab reviewed. Renal parameters stable. January 14: Lab reviewed. Renal parameters stable. January 13: Labs reviewed. Stable from renal standpoint of view. January 12: Labs reviewed. Stable from renal standpoint of view January 11: No labs drawn today stable from renal standpoint of view January 10: Labs reviewed. Potassium supplement given. Continue per consultants. January 09: Lab reviewed. Potassium supplement given. IV fluid discontinued. January 08: Lab reviewed. Renal parameters stable. Continue per consultants. January 07: Lab reviewed. Renal parameters stable. Continue per consultants. January 06: Lab reviewed. Stable from renal standpoint of view. January 05: Labs reviewed. Stable from renal standpoint of view. Continue per consultants. January 04: No labs drawn today. Will check labs tomorrow. Continue per consultants. January 03: Lab reviewed. Renal parameters stable. IV fluid discontinued. High LFTs declining. Continue same. January 02: Lab reviewed. Renal parameters stable. Continue per PMD and consultants. LFTs remain elevated. Continue to monitor. Continue slow hydration Discontinue blood pressure medications as her blood pressure is low Discontinue diuretics Monitor renal parameters Transfusion as needed GI evaluation Correct electrolyte abnormalities Check B12 level, folate, and thyroid function tests: Results noted Subjective ROS Limited/Unobtainable: Yes Objective Objective Last 24 Hour Vital Signs Date Time Temp Pulse Resp B/P (MAP) Pulse Ox O2 Delivery O2 Flow Rate FiO2 02/04/20 12:00 30 02/04/20 12:00 Mechanical Ventilator 02/04/20 12:00 99.0 77 18 114/71 (85) 100 02/04/20 12:00 102 02/04/20 10:40 90 26 30 02/04/20 09:00 100 02/04/20 08:00 83 02/04/20 08:00 30 02/04/20 08:00 98.1 92 28 97/62 (74) 99 02/04/20 08:00 Mechanical Ventilator 02/04/20 07:16 87 23 30 02/04/20 04:00 30 02/04/20 04:00 80 02/04/20 04:00 98.1 84 22 96/56 (69) 100 02/04/20 03:07 70 24 30 02/04/20 00:00 97.9 77 20 126/64 (84) 100 02/04/20 00:00 30 02/03/20 23:33 63 02/03/20 22:45 74 22 30 02/03/20 20:00 98.3 82 20 125/54 (77) 100 02/03/20 20:00 Mechanical Ventilator 02/03/20 20:00 30 02/03/20 19:31 82 02/03/20 19:05 83 26 30 02/03/20 16:00 81 02/03/20 16:00 30 02/03/20 16:00 98.6 85 16 98/56 (70) 100 02/03/20 15:20 88 22 30 Intake and Output 02/03/20 02/04/20 19:00 07:00 Intake Total 1910.0 ml 2140.0 ml Output Total 520 ml 1250 ml Balance 1390.0 ml 890.0 ml Intake Free Water 150 ml IV Total 1250.0 ml 1440.0 ml Tube Feeding 660 ml 550 ml Output Urine Total 120 ml 250 ml Stool Total 400 ml 1000 ml # Voids 2 1 Laboratory Tests 02/03/20 17:46: POC Whole Blood Glucose 91 02/04/20 00:44: POC Whole Blood Glucose 101 02/04/20 06:15: POC Whole Blood Glucose 97 02/04/20 07:00: Sodium Level 144, Potassium Level 4.1, Chloride Level 112H, Carbon Dioxide Level 22, Anion Gap 10, Blood Urea Nitrogen 3L, Creatinine 0.3L, Estimat Glomerular Filtration Rate > 60, Glucose Level 94, Calcium Level 7.7L, Phosphorus Level 2.7, Magnesium Level 2.0, Total Bilirubin 0.2, Aspartate Amino Transf (AST/SGOT) 12L, Alanine Aminotransferase (ALT/SGPT) 13, Alkaline Phosphatase 72, Total Protein 5.2L, Albumin 1.6L, Globulin 3.6, Albumin/Globulin Ratio 0.4L 02/04/20 11:23: POC Whole Blood Glucose 103 Height (Feet): 5 Height (Inches): 1.00 Weight (Pounds): 81 General Appearance: no apparent distress EENT: other - Connected to vent Cardiovascular: normal rate Respiratory/Chest: decreased breath sounds Abdomen: soft Objective No change Chivo Holloway MD Feb 04, 2020 13:11
--- NOTE | 2020-02-04 13:21 | Surgery Progress Note ---
Surgery Progress Note Subjective Symptoms: improved Objective Last 24 Hour Vital Signs Date Time Temp Pulse Resp B/P (MAP) Pulse Ox O2 Delivery O2 Flow Rate FiO2 02/04/20 12:00 30 02/04/20 12:00 Mechanical Ventilator 02/04/20 12:00 99.0 77 18 114/71 (85) 100 02/04/20 12:00 102 02/04/20 10:40 90 26 30 02/04/20 09:00 100 02/04/20 08:00 83 02/04/20 08:00 30 02/04/20 08:00 98.1 92 28 97/62 (74) 99 02/04/20 08:00 Mechanical Ventilator 02/04/20 07:16 87 23 30 02/04/20 04:00 30 02/04/20 04:00 80 02/04/20 04:00 98.1 84 22 96/56 (69) 100 02/04/20 03:07 70 24 30 02/04/20 00:00 97.9 77 20 126/64 (84) 100 02/04/20 00:00 30 02/03/20 23:33 63 02/03/20 22:45 74 22 30 02/03/20 20:00 98.3 82 20 125/54 (77) 100 02/03/20 20:00 Mechanical Ventilator 02/03/20 20:00 30 02/03/20 19:31 82 02/03/20 19:05 83 26 30 02/03/20 16:00 81 02/03/20 16:00 30 02/03/20 16:00 98.6 85 16 98/56 (70) 100 02/03/20 15:20 88 22 30 I&O Intake and Output 02/03/20 02/04/20 19:00 07:00 Intake Total 1910.0 ml 2140.0 ml Output Total 520 ml 1250 ml Balance 1390.0 ml 890.0 ml Intake Free Water 150 ml IV Total 1250.0 ml 1440.0 ml Tube Feeding 660 ml 550 ml Output Urine Total 120 ml 250 ml Stool Total 400 ml 1000 ml # Voids 2 1 Dressing: other Wound: other Cardiovascular: RSR Respiratory: decreased breath sounds Abdomen: soft, non-tender, present bowel sounds Extremities: no cyanosis Laboratory Tests Test 02/03/20 17:46 02/04/20 00:44 9/20/20 06:15 02/04/20 07:00 POC Whole Blood Glucose 91 MG/DL (74-106) 101 MG/DL (74-106) 97 MG/DL (74-106) Sodium Level 144 MMOL/L (136-145) Potassium Level 4.1 MMOL/L (3.5-5.1) Chloride Level 112 MMOL/L (98-107) H Carbon Dioxide Level 22 MMOL/L (21-32) Anion Gap 10 mmol/L (5-15) Blood Urea Nitrogen 3 mg/dL (7-18) L Creatinine 0.3 MG/DL (0.55-1.30) L Estimat Glomerular Filtration Rate > 60 mL/min (>60) Glucose Level 94 MG/DL (74-106) Calcium Level 7.7 MG/DL (8.5-10.1) L Phosphorus Level 2.7 MG/DL (2.5-4.9) Magnesium Level 2.0 MG/DL (1.8-2.4) Total Bilirubin 0.2 MG/DL (0.2-1.0) Aspartate Amino Transf (AST/SGOT) 12 U/L (15-37) L Alanine Aminotransferase (ALT/SGPT) 13 U/L (12-78) Alkaline Phosphatase 72 U/L (46-116) Total Protein 5.2 G/DL (6.4-8.2) L Albumin 1.6 G/DL (3.4-5.0) L Globulin 3.6 g/dL Albumin/Globulin Ratio 0.4 (1.0-2.7) L Test 02/04/20 11:23 POC Whole Blood Glucose 103 MG/DL (74-106) Plan Problems: (1) Pneumonia (2) Sepsis Assessment & Plan: leukocytosis anemia lactic acidosis agree with GI recommend EGD planned for 12/31 hold feeding for now trend h/h monitor for bleeding no acute hemorrhage will be available in event needs exploration for hemostasis prbc as per heme thank you will follow with recs cont abx worsening wbc wbc trending down comfortable appearing no n/v hypotensive in ICU again worse pending CT results - noted PICC ordered improving wbc improved labs and micro trending Pt presented on admission in emaciated state. Pt has tracheostomy and GT. NO skin concerns noted to skin under collar of trach. NO erythema or evidence of skin erosion at GT site. Pt noted to have scaly pimple-like rash with webbing noted to R and L axillae, undersides of both breasts, Bilat groin and lower back. Tracking and webbing noted to hands and feet. Pt restless and scratching at skin. Non-Blanching erythema without induration or fluctuance noted to R and L hips and trochanteric areas.Non-blanching erythema noted along spine. Non-Blanching erythema without induration noted to Sacrum. Non-Blanching erythema noted to R and L Malleoli and both heels. Tx.Plan: Please apply Cavilon Skin Barrier to each bony Prominences at risks for Skin Breakdown. Cover each area with Optifoam drsgs. Change every 7 days and prn. Apply Moisture Barrier Paste to Sacrum. Cover with Optifoam drsg. Change every 3 days and prn. Reposition at least every 2hours or as tolerated. Off-load heels with pillow. APM/EMELI Mattress overlay. improving cont current care plan There is marked enlargement of the third and lateral ventricles and extra axial CSF spaces, in particular the former. There is considerable periventricular deep white matter low-attenuation. Otherwise normal mobley-white differentiation. No acute hemorrhage or edema. No mass effect nor midline shift. Visualized orbits and sinuses are unremarkable. The calvarium is intact Impression: Third and lateral ventriculomegaly. Associated enlargement of the extra axial CSF spaces indicates that this is probably due to central volume loss, but the possibility of hydrocephalus should also be considered. At the degree of volume loss is considerably out of proportion to patient's age. Correlate with clinical history Periventricular deep white matter low-attenuation. Probably on the basis of microvascular ischemic change but given patient's age the possibility of demyelinating disease should be considered as well. Negative for acute intracranial bleed or mass effect ABDOMEN: Liver: Unremarkable. Gallbladder and bile ducts: Cholecystectomy. No ductal dilation. Pancreas: Unremarkable. No ductal dilation. Spleen: Unremarkable. No splenomegaly. Adrenals: Unremarkable. No mass. Kidneys and ureters: Unremarkable. No obstructing stones. No hydronephrosis. Stomach and bowel: Operative bowel findings. Diffuse small bowel wall thickening with areas of distention and fluid-filled colonic loops. No clear focal transition point to suggest small bowel obstruction. PELVIS: Appendix: Appendix not identified. Bladder: Urinary bladder wall thickening could be incidental, due to high outlet pressures, or could represent cystitis. No stones. Reproductive: Unremarkable as visualized. ABDOMEN and PELVIS: Intraperitoneal space: Large low-attenuation pelvic fluid of uncertain significance, potentially reactive. No free air. Bones/joints: No acute fracture. No dislocation. Soft tissues: Bilateral buttock injection granulomas. Vasculature: Unremarkable. No abdominal aortic aneurysm. Lymph nodes: Unremarkable. No enlarged lymph nodes. Tubes, lines and devices: Percutaneous gastrostomy tube adequately positioned in the stomach. Rectal tube. Other findings: No perforation seen. IMPRESSION: 1. Study substantially limited due to lack of IV contrast. 2. Findings most compatible with ileus and probable infectious or inflammatory enteritis or enterocolitis. 3. Large low-attenuation pelvic fluid of uncertain significance, potentially reactive. 4. Appendix not identified. 5. Percutaneous gastrostomy tube adequately positioned in the stomach. Rectal tube. 6. Urinary bladder wall thickening could be incidental, due to high outlet pressures, or could represent cystitis. 7. Cholecystectomy. (3) GI bleed (4) G tube feedings Assessment & Plan: DAILY ESTIMATED NEEDS: Needs based on Underweight, critical care 37.3kg 30-40 kcals/kg 4172-9996 total kcals 1.25-2 g protein/kg 47-75 g total protein 25-35 mL/kg 933-1306 total fluid mLs NUTRITION DIAGNOSIS: Increased kcal and pro needs r/t underweight status as evidenced by BMI 14.1, pt is 68% of ideal body weight w/ generalized severe wasting, trach and peg dep. CURRENT TF:Vital AF 1.2 @55 x20 hrs ENTERAL NUTRITION RECOMMENDATIONS: Vital AF 1.2 @ 55ml/hr x20 hrs to provide 1100ml 1320kcal 83g prot, 892ml free water - Rec to continue elemental TF formula while stool C-diff positive, +LBM - HOLD 1HR BEFORE AND AFTER SYNTHROID MEDS - Flush per . HOB over 30 degrees ADDITIONAL RECOMMENDATIONS: 1) Per SNF: 5'4" and 81# Maintain calibrated bed scale wts w/ added P200 mattress 2) Lytes daily madhav w/ loose stools, replete as needed 3) Skin integrity: Continue BRIAN VIA GT BID + Vit C 4) Accuchecks for Hypoglycemia 5) Add probiotics for stool C-diff+ . Benyamini,George Feb 04, 2020 13:21
[2020-02-04 16:00] VITALS: BP 94/54
[2020-02-04] MEDS: GENTAMICIN IVPB SCH (17:12)
[2020-02-04] MEDS: NS IVPB SCH (17:12)
[2020-02-04] MEDS: Acetaminophen 650mg/20.3ml GT PRN ×2 (17:12→21:12)
--- NOTE | 2020-02-04 19:58 | Cardiology Progress Note ---
Assessment/Plan Assessment/Plan 1. Septic shock, continue midodrine. 2. Sinus bradycardia, resolved, in fact tachycardia episode noted, likely due to fever/leukocytosis. 3. Anemia of chronic disease 4. Acute renal failure, resolved. 5. GI bleeding due to gastric ulceration. 6. Dysphagia, s/p PEG placement, s/p EGD. 7. VDRF, s/p tracheostomy tube placement. Subjective Subjective Sinus rhythm at rate of 98. On the vent with FiO2 of 30%. Objective Last 24 Hour Vital Signs Date Time Temp Pulse Resp B/P (MAP) Pulse Ox O2 Delivery O2 Flow Rate FiO2 02/04/20 19:38 98 24 30 02/04/20 17:42 100.8 02/04/20 17:00 100.8 02/04/20 16:00 85 02/04/20 16:00 101.8 81 18 94/54 (67) 100 02/04/20 16:00 30 02/04/20 16:00 Mechanical Ventilator 02/04/20 15:10 90 21 30 02/04/20 12:00 30 02/04/20 12:00 Mechanical Ventilator 02/04/20 12:00 99.0 77 18 114/71 (85) 100 02/04/20 12:00 102 02/04/20 10:40 90 26 30 02/04/20 09:00 100 02/04/20 08:00 83 02/04/20 08:00 30 02/04/20 08:00 98.1 92 28 97/62 (74) 99 02/04/20 08:00 Mechanical Ventilator 02/04/20 07:16 87 23 30 02/04/20 04:00 30 02/04/20 04:00 80 02/04/20 04:00 98.1 84 22 96/56 (69) 100 02/04/20 03:07 70 24 30 02/04/20 00:00 97.9 77 20 126/64 (84) 100 02/04/20 00:00 30 02/03/20 23:33 63 02/03/20 22:45 74 22 30 02/03/20 20:00 98.3 82 20 125/54 (77) 100 02/03/20 20:00 Mechanical Ventilator 02/03/20 20:00 30 Intake and Output 02/03/20 02/04/20 19:00 07:00 Intake Total 1910.0 ml 2140.0 ml Output Total 520 ml 1250 ml Balance 1390.0 ml 890.0 ml Intake Free Water 150 ml IV Total 1250.0 ml 1440.0 ml Tube Feeding 660 ml 550 ml Output Urine Total 120 ml 250 ml Stool Total 400 ml 1000 ml # Voids 2 1 2D Echo: LVEF 65%, RVSP 23 mmHg, Grade I LVDD Laboratory Tests Test 02/04/20 00:44 02/04/20 06:15 02/04/20 07:00 02/04/20 11:23 POC Whole Blood Glucose 101 MG/DL (74-106) 97 MG/DL (74-106) 103 MG/DL (74-106) Sodium Level 144 MMOL/L (136-145) Potassium Level 4.1 MMOL/L (3.5-5.1) Chloride Level 112 MMOL/L (98-107) H Carbon Dioxide Level 22 MMOL/L (21-32) Anion Gap 10 mmol/L (5-15) Blood Urea Nitrogen 3 mg/dL (7-18) L Creatinine 0.3 MG/DL (0.55-1.30) L Estimat Glomerular Filtration Rate > 60 mL/min (>60) Glucose Level 94 MG/DL (74-106) Calcium Level 7.7 MG/DL (8.5-10.1) L Phosphorus Level 2.7 MG/DL (2.5-4.9) Magnesium Level 2.0 MG/DL (1.8-2.4) Total Bilirubin 0.2 MG/DL (0.2-1.0) Aspartate Amino Transf (AST/SGOT) 12 U/L (15-37) L Alanine Aminotransferase (ALT/SGPT) 13 U/L (12-78) Alkaline Phosphatase 72 U/L (46-116) Total Protein 5.2 G/DL (6.4-8.2) L Albumin 1.6 G/DL (3.4-5.0) L Globulin 3.6 g/dL Albumin/Globulin Ratio 0.4 (1.0-2.7) L Test 02/04/20 17:47 POC Whole Blood Glucose Pending Objective HEENT: PERRLA, EOMI, +Trach tube. NECK: Cannot assess JVP, no carotid bruit with normal upstroke. LUNGS: Bilateral rhonchi. CARDIAC: Regular rhythm and rate. Normal S1, S2, no murmurs, gallops or rubs. ABDOMEN: Soft with G-tube. No hepatomegaly. EXTREMITIES: No edema, clubbing or cyanosis. Desmond Gleason MD Feb 04, 2020 19:58
[2020-02-04 20:00] VITALS: BP 100/67
[2020-02-04] MEDS: OXcarbazepine 150mg tab GT SCH (21:08)
[2020-02-05] VITALS: BP 107/52
[2020-02-05 04:00] VITALS: BP 97/52
[2020-02-05 05:13] LABS: BASOPHILS % (AUTO) 1.3 % (0.0-2.0); EOSINOPHILS % (AUTO) 2.8 % (0.0-3.0); HEMATOCRIT 27.7 % (37.0-47.0); HEMOGLOBIN 9.1 G/DL (12.0-16.0); LYMPHOCYTES % (AUTO) 20.5 % (20.0-45.0); MEAN CORPUSCULAR VOLUME 91 FL (80-99); MONOCYTES % (AUTO) 11.1 % (1.0-10.0); NEUTROPHILS % (AUTO) 64.4 % (45.0-75.0); PLATELET COUNT 331 K/UL (150-450); RED BLOOD COUNT 3.04 M/UL (4.20-5.40); RED CELL DISTRIBUTION WIDTH 15.1 % (11.6-14.8); WHITE BLOOD COUNT 9.2 K/UL (4.8-10.8)
[2020-02-05 08:00] VITALS: BP 93/57
--- NOTE | 2020-02-05 09:05 | Surgery Progress Note ---
Surgery Progress Note Subjective Additional Comments no acute events labs improved h/h noted micro reviewed ill appearing overall prognosis guarded Objective Last 24 Hour Vital Signs Date Time Temp Pulse Resp B/P (MAP) Pulse Ox O2 Delivery O2 Flow Rate FiO2 02/05/20 08:00 96.8 81 20 93/57 (69) 100 02/05/20 04:00 98.4 62 18 97/52 (67) 100 02/05/20 04:00 Mechanical Ventilator 02/05/20 04:00 30 02/05/20 03:36 65 02/05/20 03:16 91 22 30 02/05/20 00:00 Mechanical Ventilator 02/05/20 00:00 98.1 80 16 107/52 (70) 100 02/04/20 23:48 82 02/04/20 23:06 84 24 30 02/04/20 21:42 99.5 02/04/20 20:00 100.9 78 18 100/67 (78) 98 02/04/20 20:00 30 02/04/20 20:00 Mechanical Ventilator 02/04/20 19:38 79 02/04/20 19:38 98 24 30 02/04/20 17:42 100.8 02/04/20 17:00 100.8 02/04/20 16:00 85 02/04/20 16:00 101.8 81 18 94/54 (67) 100 02/04/20 16:00 30 02/04/20 16:00 Mechanical Ventilator 02/04/20 15:10 90 21 30 02/04/20 12:00 30 02/04/20 12:00 Mechanical Ventilator 02/04/20 12:00 99.0 77 18 114/71 (85) 100 02/04/20 12:00 102 02/04/20 10:40 90 26 30 I&O Intake and Output 02/04/20 02/05/20 19:00 07:00 Intake Total 1635 ml 1433.75 ml Output Total 1000 ml 1000 ml Balance 635 ml 433.75 ml Intake Free Water 120 ml 70 ml IV Total 965 ml 813.75 ml Tube Feeding 550 ml 550 ml Stool Total 1000 ml 1000 ml # Voids 2 Dressing: saturated Wound: other Cardiovascular: RSR Respiratory: decreased breath sounds Abdomen: soft, non-tender, present bowel sounds Extremities: no tenderness, no cyanosis Laboratory Tests Test 02/04/20 11:23 02/04/20 17:47 02/04/20 23:07 02/05/20 04:02 POC Whole Blood Glucose 103 MG/DL (74-106) Pending Pending White Blood Count 9.2 K/UL (4.8-10.8) Red Blood Count 3.04 M/UL (4.20-5.40) L Hemoglobin 9.1 G/DL (12.0-16.0) L Hematocrit 27.7 % (37.0-47.0) L Mean Corpuscular Volume 91 FL (80-99) Mean Corpuscular Hemoglobin 29.8 PG (27.0-31.0) Mean Corpuscular Hemoglobin Concent 32.7 G/DL (32.0-36.0) Red Cell Distribution Width 15.1 % (11.6-14.8) H Platelet Count 331 K/UL (150-450) Mean Platelet Volume 6.3 FL (6.5-10.1) L Neutrophils (%) (Auto) 64.4 % (45.0-75.0) Lymphocytes (%) (Auto) 20.5 % (20.0-45.0) Monocytes (%) (Auto) 11.1 % (1.0-10.0) H Eosinophils (%) (Auto) 2.8 % (0.0-3.0) Basophils (%) (Auto) 1.3 % (0.0-2.0) Test 02/05/20 04:58 POC Whole Blood Glucose Pending Plan Problems: (1) Pneumonia (2) Sepsis Assessment & Plan: leukocytosis anemia lactic acidosis agree with GI recommend EGD planned for 12/31 hold feeding for now trend h/h monitor for bleeding no acute hemorrhage will be available in event needs exploration for hemostasis prbc as per heme thank you will follow with recs cont abx worsening wbc wbc trending down comfortable appearing no n/v hypotensive in ICU again worse pending CT results - noted PICC ordered improving wbc improved labs and micro trending labs improved wbc resolved prognosis guarded Pt presented on admission in emaciated state. Pt has tracheostomy and GT. NO skin concerns noted to skin under collar of trach. NO erythema or evidence of skin erosion at GT site. Pt noted to have scaly pimple-like rash with webbing noted to R and L axillae, undersides of both breasts, Bilat groin and lower back. Tracking and webbing noted to hands and feet. Pt restless and scratching at skin. Non-Blanching erythema without induration or fluctuance noted to R and L hips and trochanteric areas.Non-blanching erythema noted along spine. Non-Blanching erythema without induration noted to Sacrum. Non-Blanching erythema noted to R and L Malleoli and both heels. Tx.Plan: Please apply Cavilon Skin Barrier to each bony Prominences at risks for Skin Breakdown. Cover each area with Optifoam drsgs. Change every 7 days and prn. Apply Moisture Barrier Paste to Sacrum. Cover with Optifoam drsg. Change every 3 days and prn. Reposition at least every 2hours or as tolerated. Off-load heels with pillow. APM/EMELI Mattress overlay. improving cont current care plan There is marked enlargement of the third and lateral ventricles and extra axial CSF spaces, in particular the former. There is considerable periventr icular deep white matter low-attenuation. Otherwise normal mobley-white differentiation. No acute hemorrhage or edema. No mass effect nor midline shift. Visualized orbits and sinuses are unremarkable. The calvarium is intact Impression: Third and lateral ventriculomegaly. Associated enlargement of the extra axial CSF spaces indicates that this is probably due to central volume loss, but the possibility of hydrocephalus should also be considered. At the degree of volume loss is considerably out of proportion to patient's age. Correlate with clinical history Periventricular deep white matter low-attenuation. Probably on the basis of microvascular ischemic change but given patient's age the possibility of demyelinating disease should be considered as well. Negative for acute intracranial bleed or mass effect ABDOMEN: Liver: Unremarkable. Gallbladder and bile ducts: Cholecystectomy. No ductal dilation. Pancreas: Unremarkable. No ductal dilation. Spleen: Unremarkable. No splenomegaly. Adrenals: Unremarkable. No mass. Kidneys and ureters: Unremarkable. No obstructing stones. No hydronephrosis. Stomach and bowel: Operative bowel findings. Diffuse small bowel wall thickening with areas of distention and fluid-filled colonic loops. No clear focal transition point to suggest small bowel obstruction. PELVIS: Appendix: Appendix not identified. Bladder: Urinary bladder wall thickening could be incidental, due to high outlet pressures, or could represent cystitis. No stones. Reproductive: Unremarkable as visualized. ABDOMEN and PELVIS: Intraperitoneal space: Large low-attenuation pelvic fluid of uncertain significance, potentially reactive. No free air. Bones/joints: No acute fracture. No dislocation. Soft tissues: Bilateral buttock injection granulomas. Vasculature: Unremarkable. No abdominal aortic aneurysm. Lymph nodes: Unremarkable. No enlarged lymph nodes. Tubes, lines and devices: Percutaneous gastrostomy tube adequately positioned in the stomach. Rectal tube. Other findings: No perforation seen. IMPRESSION: 1. Study substantially limited due to lack of IV contrast. 2. Findings most compatible with ileus and probable infectious or inflammatory enteritis or enterocolitis. 3. Large low-attenuation pelvic fluid of uncertain significance, potentially reactive. 4. Appendix not identified. 5. Percutaneous gastrostomy tube adequately positioned in the stomach. Rectal tube. 6. Urinary bladder wall thickening could be incidental, due to high outlet pressures, or could represent cystitis. 7. Cholecystectomy. (3) GI bleed (4) G tube feedings Assessment & Plan: DAILY ESTIMATED NEEDS: Needs based on Underweight, critical care 37.3kg 30-40 kcals/kg 1301-6572 total kcals 1.25-2 g protein/kg 47-75 g total protein 25-35 mL/kg 933-1306 total fluid mLs NUTRITION DIAGNOSIS: Increased kcal and pro needs r/t underweight status as evidenced by BMI 14.1, pt is 68% of ideal body weight w/ generalized severe wasting, trach and peg dep. CURRENT TF:Vital AF 1.2 @55 x20 hrs ENTERAL NUTRITION RECOMMENDATIONS: Vital AF 1.2 @ 55ml/hr x20 hrs to provide 1100ml 1320kcal 83g prot, 892ml free water - Rec to continue elemental TF formula while stool C-diff positive, +LBM - HOLD 1HR BEFORE AND AFTER SYNTHROID MEDS - Flush per MD. HOB over 30 degrees ADDITIONAL RECOMMENDATIONS: 1) Per SNF: 5'4" and 81# Maintain calibrated bed scale wts w/ added P200 mattress 2) Lytes daily madhav w/ loose stools, replete as needed 3) Skin integrity: Continue BRIAN VIA GT BID + Vit C 4) Accuchecks for Hypoglycemia 5) Add probiotics for stool C-diff+ . George Woods Feb 05, 2020 09:05
[2020-02-05] MEDS: Multivitamins W/Minerals 15 ML UDC GT SCH (09:12)
[2020-02-05] MEDS: Gabapentin 300 MG/6 ML Soln GT SCH ×3 (09:12→17:33)
[2020-02-05] MEDS: levETIRAcetam 500mg/5ml Liquid GT SCH ×2 (09:12→20:41)
[2020-02-05] MEDS: Ascorbic Acid 500mg tab GT SCH (09:13)
[2020-02-05] MEDS: Thiamine 100mg tab GT SCH (09:13)
[2020-02-05] MEDS: Pantoprazole Inj IVP SCH ×2 (09:13→20:41)
[2020-02-05] MEDS: Sucralfate 1gm tab ORAL SCH ×4 (09:13→20:40)
--- NOTE | 2020-02-05 09:35 | Hematology/Onc Progress Note ---
Assessment/Plan Assessment/Plan # Anemia rule out underlying gi bleed --> Dr. Carrillo has been consulted-->endosco gastric ulceration --> trend hgb 7-->7.4-->7.9-->8.1->9.6-->8.5->9.1-->10-->11-->10.3-->10.4-->11->9.8-->7.4 ->9-->10.5-->9.1 --> anemia panel ordered-->reviewed --> prn transfusion --> protonix started # Leukocytosis is likely related to pna on imaging --> abx has been started --> if wbc worsens, consider abx vanc/zosyn--> ceftriaxone-->vanc->fluc/flagyl/vanc--> flagyl/fidoxomicin->vanc/cefepime/flagyl-->gentamcinflagyl --> smear is noted --> wbc 25-->15-->14-->16->7.6-->12-->20->13->11->14-->33-->16->8 --> pressors prn # Thrombocytopenia med related v labs error --> plt trend 167-->61-->227->373 --> meds have been reviewed --> no hep or lovenox # Sepsis --> on abx for pna --> pressors as needed --> fluids as per pcp for hypotension # Pneumonia --> pulm, Dr. 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 linux consultant care, will follow Subjective Allergies: Coded Allergies: CARBAMAZEPINE (Verified Allergy, Unknown, 12/31/19) LORAZEPAM (Verified Allergy, Unknown, 12/31/19) All Systems: reviewed and negative except above Subjective 01/01 altered, trach, no bleedin wbc improved on abx, seen by gi 01/02 egd study noted, also with plts 61k, have dw Dharmita Rn, will recheck cbc 01/03 remains agitated, vitaly rn, no bleeding, cbc noted as well as id recs 01/04 on vent, with melena overnight, no bleeding, vitaly rn, labs reviewed 01/06 on vent, remains agitated, no bleeding, vitaly rn, smear is noted 01/07 on vent, restless, asymptomatic, noncooperative 01/[address] John obtained, reviewed, meds adjusted, eeg pending 01/09 labs noted, no bleeding, ativan has been discontinued, meds reviewed 01/10 trach to vent, agitated, with wrist restraints, no major changes, no bleeding 01/11 labs are reviewed, on trach to vent, no bleeding, agitated overnight, no complaints 01/13 labs noted, no bleeding, is on vent/trach, no bleeding, vitaly rn, labs are noted 01/14 labs are noted, no bleeding, remains on v/t, remains agitated, no bleeding 01/15 is c.diff positive, wbc higher at 21k, labs noted, on abx, reviewed gi, id recs 01/16 remains on vent, wbc is improved, in sr, as abx per id 01/17 recieved dopamine, tube feeds, on soft restraints, no bleeding, vitaly rn 01/18 labs are noted, no bleeding, vitaly rn, no major changes 01/20 on dopamine gtt, with restraints, no major changes, labs noted 01/21 labs reviewed, no bleeding, vitaly rn, no major changes 01/22 transferred to icu for higher loc, dopamine on hold as bp is good, have increased Synthroid 01/23 labs are pending, meds noted, no bleeding, dopamine gtt ongoing, cbc noted 01/24 still nv, no bleeding, labs reviewed, vitaly rn, with rectal tube in place, on dopamine gtt 01/25 is on bipap, nv, no bleeding, remains on low dose pressorm hgb 11 01/27 on dopamine, hr was elevated overnight, cards aware 01/28 on vent, with ivfs running, rectal tube with red blood noted, consider gi eval 01/29 on vent, labs reviewed, wbc 22, hgb 8.4, on abx currently, vanc/flagyl/cefepime 02/02 labs reviewed, no bleeding, on vent, no night sweats, wbc improved 02/03 is on gtube feeds, with trach to vent, oxygen as needed, labs wbc better 02/04 nv, is on gt, on vent, no bleeding, labs are noted, guarded prognosis Objective Objective Current Medications Medications (Trade) Dose Ordered Sig/Villa Route PRN Reason Start Time Stop Time Status Last Admin Dose Admin Acetaminophen (Tylenol) 650 mg Q4H PRN GT Temp >100.5 02/01/20 20:30 03/02/20 20:29 02/04/20 21:12 Ascorbic Acid (Vitamin C) 500 mg DAILY GT 01/28/20 09:30 02/27/20 09:29 02/05/20 09:13 Dextrose/Sodium Chloride 1,000 ml @ 75 mls/hr [id number] IV 01/29/20 13:00 02/27/20 12:59 02/04/20 23:09 Famotidine (Pepcid I.v.) 20 mg Q12HR IVP 01/29/20 21:00 02/28/20 20:59 02/05/20 09:13 Gabapentin (Neurontin) 900 mg TID GT 01/28/20 09:30 02/19/20 09:29 02/05/20 09:12 Gentamicin Protocol (Gentamicin pharmacy to dose) 1 ea DAILY PRN MISC Per rx protocol 02/02/20 17:00 03/03/20 16:59 Gentamicin Sulfate 200 mg/ Sodium Chloride 115 ml @ 115 mls/hr Q24H IVPB 02/02/20 18:00 02/09/20 17:59 02/04/20 17:12 Haloperidol Lactate (Haldol) 5 mg Q6H PRN IM Agitation 01/28/20 09:30 02/15/20 09:29 Levetiracetam (Keppra) 1,500 mg Q12HR GT 01/28/20 09:30 02/07/20 09:29 02/05/20 09:12 Levothyroxine Sodium (Synthroid) 50 mcg ACBREAKFAST GT 01/29/20 06:30 02/10/20 06:29 02/05/20 05:44 Midodrine (Pro-Amatine) 10 mg TID GT 01/28/20 18:00 04/21/20 09:29 02/05/20 09:13 Multivitamins (Multivitamins W/ Minerals 15ml Liquid) 15 ml DAILY GT 01/28/20 09:30 02/27/20 09:29 02/05/20 09:12 Oxcarbazepine (TrileptaL) 300 mg BEDTIME GT 01/28/20 21:00 02/07/20 20:59 02/04/20 21:08 Pantoprazole (Protonix) 40 mg EVERY 12 HOURS IVP 01/31/20 09:30 03/01/20 09:29 02/05/20 09:13 Potassium Chloride (K-Dur) 40 meq TWICE A DAY ORAL 02/02/20 18:00 05/02/20 17:59 02/05/20 09:13 Sucralfate (Carafate) 1 gm FOUR TIMES A DAY ORAL 01/30/20 09:00 04/29/20 08:59 02/05/20 09:13 Thiamine HCl (Vitamin B1) 100 mg DAILY GT 01/28/20 09:30 02/27/20 09:29 02/05/20 09:13 Last 24 Hour Vital Signs Date Time Temp Pulse Resp B/P (MAP) Pulse Ox O2 Delivery O2 Flow Rate FiO2 02/05/20 09:00 97 02/05/20 08:00 96.8 81 20 93/57 (69) 100 02/05/20 07:20 71 21 30 02/05/20 04:00 98.4 62 18 97/52 (67) 100 02/05/20 04:00 Mechanical Ventilator 02/05/20 04:00 30 02/05/20 03:36 65 02/05/20 03:16 91 22 30 02/05/20 00:00 Mechanical Ventilator 02/05/20 00:00 98.1 80 16 107/52 (70) 100 02/04/20 23:48 82 02/04/20 23:06 84 24 30 02/04/20 21:42 99.5 02/04/20 20:00 100.9 78 18 100/67 (78) 98 02/04/20 20:00 30 02/04/20 20:00 Mechanical Ventilator 02/04/20 19:38 79 02/04/20 19:38 98 24 30 02/04/20 17:42 100.8 02/04/20 17:00 100.8 02/04/20 16:00 85 02/04/20 16:00 101.8 81 18 94/54 (67) 100 02/04/20 16:00 30 02/04/20 16:00 Mechanical Ventilator 02/04/20 15:10 90 21 30 02/04/20 12:00 30 02/04/20 12:00 Mechanical Ventilator 02/04/20 12:00 99.0 77 18 114/71 (85) 100 02/04/20 12:00 102 02/04/20 10:40 90 26 30 02/04/20 09:00 100 02/04/20 08:00 83 02/04/20 08:00 30 02/04/20 08:00 98.1 92 28 97/62 (74) 99 02/04/20 08:00 Mechanical Ventilator 02/04/20 07:16 87 23 30 02/04/20 04:00 30 02/04/20 04:00 80 02/04/20 04:00 98.1 84 22 96/56 (69) 100 02/04/20 03:07 70 24 30 02/04/20 00:00 97.9 77 20 126/64 (84) 100 02/04/20 00:00 30 02/03/20 23:33 63 02/03/20 22:45 74 22 30 02/03/20 20:00 98.3 82 20 125/54 (77) 100 02/03/20 20:00 Mechanical Ventilator 02/03/20 20:00 30 02/03/20 19:31 82 02/03/20 19:05 83 26 30 02/03/20 16:00 81 02/03/20 16:00 30 02/03/20 16:00 98.6 85 16 98/56 (70) 100 02/03/20 15:20 88 22 30 02/03/20 12:53 98.4 02/03/20 12:00 94 02/03/20 12:00 100.8 85 15 102/57 (72) 100 02/03/20 12:00 30 02/03/20 11:00 91 24 30 02/03/20 09:42 100 Intake and Output 02/04/20 02/05/20 19:00 07:00 Intake Total 1635 ml 1433.75 ml Output Total 1000 ml 1000 ml Balance 635 ml 433.75 ml Intake Free Water 120 ml 70 ml IV Total 965 ml 813.75 ml Tube Feeding 550 ml 550 ml Stool Total 1000 ml 1000 ml # Voids 2 Labs Test 02/02/20 12:12 02/02/20 18:12 02/03/20 00:11 02/03/20 05:38 POC Whole Blood Glucose 91 MG/DL (74-106) 99 MG/DL (74-106) 113 MG/DL (74-106) Test 02/03/20 06:20 02/03/20 11:23 02/03/20 17:46 02/04/20 00:44 White Blood Count 8.3 K/UL (4.8-10.8) Red Blood Count 3.53 M/UL (4.20-5.40) Hemoglobin 10.5 G/DL (12.0-16.0) Hematocrit 31.9 % (37.0-47.0) Mean Corpuscular Volume 90 FL (80-99) Mean Corpuscular Hemoglobin 29.8 PG (27.0-31.0) Mean Corpuscular Hemoglobin Concent 33.0 G/DL (32.0-36.0) Red Cell Distribution Width 15.0 % (11.6-14.8) Platelet Count 308 K/UL (150-450) Mean Platelet Volume 7.3 FL (6.5-10.1) Neutrophils (%) (Auto) 69.8 % (45.0-75.0) Lymphocytes (%) (Auto) 11.0 % (20.0-45.0) Monocytes (%) (Auto) 16.6 % (1.0-10.0) Eosinophils (%) (Auto) 1.4 % (0.0-3.0) Basophils (%) (Auto) 1.2 % (0.0-2.0) Sodium Level 144 MMOL/L (136-145) Potassium Level 3.6 MMOL/L (3.5-5.1) Chloride Level 112 MMOL/L (98-107) Carbon Dioxide Level 23 MMOL/L (21-32) Anion Gap 9 mmol/L (5-15) Blood Urea Nitrogen 4 mg/dL (7-18) Creatinine 0.5 MG/DL (0.55-1.30) Estimat Glomerular Filtration Rate > 60 mL/min (>60) Glucose Level 121 MG/DL (74-106) Calcium Level 7.6 MG/DL (8.5-10.1) Phosphorus Level 1.5 MG/DL (2.5-4.9) Magnesium Level 1.5 MG/DL (1.8-2.4) Total Bilirubin 0.2 MG/DL (0.2-1.0) Aspartate Amino Transf (AST/SGOT) 16 U/L (15-37) Alanine Aminotransferase (ALT/SGPT) 14 U/L (12-78) Alkaline Phosphatase 59 U/L (46-116) Total Protein 4.9 G/DL (6.4-8.2) Albumin 1.6 G/DL (3.4-5.0) Globulin 3.3 g/dL Albumin/Globulin Ratio 0.5 (1.0-2.7) Random Gentamicin Level 1.0 ug/mL POC Whole Blood Glucose 100 MG/DL (74-106) 91 MG/DL (74-106) 101 MG/DL (74-106) Test 02/04/20 06:15 02/04/20 07:00 02/04/20 11:23 02/04/20 17:47 POC Whole Blood Glucose 97 MG/DL (74-106) 103 MG/DL (74-106) Sodium Level 144 MMOL/L (136-145) Potassium Level 4.1 MMOL/L (3.5-5.1) Chloride Level 112 MMOL/L (98-107) Carbon Dioxide Level 22 MMOL/L (21-32) Anion Gap 10 mmol/L (5-15) Blood Urea Nitrogen 3 mg/dL (7-18) Creatinine 0.3 MG/DL (0.55-1.30) Estimat Glomerular Filtration Rate > 60 mL/min (>60) Glucose Level 94 MG/DL (74-106) Calcium Level 7.7 MG/DL (8.5-10.1) Phosphorus Level 2.7 MG/DL (2.5-4.9) Magnesium Level 2.0 MG/DL (1.8-2.4) Total Bilirubin 0.2 MG/DL (0.2-1.0) Aspartate Amino Transf (AST/SGOT) 12 U/L (15-37) Alanine Aminotransferase (ALT/SGPT) 13 U/L (12-78) Alkaline Phosphatase 72 U/L (46-116) Total Protein 5.2 G/DL (6.4-8.2) Albumin 1.6 G/DL (3.4-5.0) Globulin 3.6 g/dL Albumin/Globulin Ratio 0.4 (1.0-2.7) Test 02/04/20 23:07 02/05/20 04:02 02/05/20 04:58 White Blood Count 9.2 K/UL (4.8-10.8) Red Blood Count 3.04 M/UL (4.20-5.40) Hemoglobin 9.1 G/DL (12.0-16.0) Hematocrit 27.7 % (37.0-47.0) Mean Corpuscular Volume 91 FL (80-99) Mean Corpuscular Hemoglobin 29.8 PG (27.0-31.0) Mean Corpuscular Hemoglobin Concent 32.7 G/DL (32.0-36.0) Red Cell Distribution Width 15.1 % (11.6-14.8) Platelet Count 331 K/UL (150-450) Mean Platelet Volume 6.3 FL (6.5-10.1) Neutrophils (%) (Auto) 64.4 % (45.0-75.0) Lymphocytes (%) (Auto) 20.5 % (20.0-45.0) Monocytes (%) (Auto) 11.1 % (1.0-10.0) Eosinophils (%) (Auto) 2.8 % (0.0-3.0) Basophils (%) (Auto) 1.3 % (0.0-2.0) Height (Feet): 5 Height (Inches): 1.00 Weight (Pounds): 81 Objective Vital Signs General Appearance: ++ cachectic, chronically ill HEENT: normocephalic, atraumatic ++ trach Resp: other -. vent ++ Cardiovascular: regular rate, rhythm, no edema Gastrointestinal: gtube in place, without erythema Rectal: other - Hemoccult positive [place]: back normal, gait/station normal, non-tender Lymphatic: no adenopathy Baltazar Cortes MD Feb 05, 2020 09:35
--- NOTE | 2020-02-05 09:59 | General Progress Note ---
Subjective ROS Limited/Unobtainable: No Allergies: Coded Allergies: CARBAMAZEPINE (Verified Allergy, Unknown, 12/31/19) LORAZEPAM (Verified Allergy, Unknown, 12/31/19) Objective Last 24 Hour Vital Signs Date Time Temp Pulse Resp B/P (MAP) Pulse Ox O2 Delivery O2 Flow Rate FiO2 02/05/20 09:00 97 02/05/20 08:00 96.8 81 20 93/57 (69) 100 02/05/20 07:20 71 21 30 02/05/20 04:00 98.4 62 18 97/52 (67) 100 02/05/20 04:00 Mechanical Ventilator 02/05/20 04:00 30 02/05/20 03:36 65 02/05/20 03:16 91 22 30 02/05/20 00:00 Mechanical Ventilator 02/05/20 00:00 98.1 80 16 107/52 (70) 100 02/04/20 23:48 82 02/04/20 23:06 84 24 30 02/04/20 21:42 99.5 02/04/20 20:00 100.9 78 18 100/67 (78) 98 02/04/20 20:00 30 02/04/20 20:00 Mechanical Ventilator 02/04/20 19:38 79 02/04/20 19:38 98 24 30 02/04/20 17:42 100.8 02/04/20 17:00 100.8 02/04/20 16:00 85 02/04/20 16:00 101.8 81 18 94/54 (67) 100 02/04/20 16:00 30 02/04/20 16:00 Mechanical Ventilator 02/04/20 15:10 90 21 30 02/04/20 12:00 30 02/04/20 12:00 Mechanical Ventilator 02/04/20 12:00 99.0 77 18 114/71 (85) 100 02/04/20 12:00 102 02/04/20 10:40 90 26 30 Intake and Output 02/04/20 02/05/20 19:00 07:00 Intake Total 1635 ml 1433.75 ml Output Total 1000 ml 1000 ml Balance 635 ml 433.75 ml Intake Free Water 120 ml 70 ml IV Total 965 ml 813.75 ml Tube Feeding 550 ml 550 ml Stool Total 1000 ml 1000 ml # Voids 2 Laboratory Tests 02/04/20 11:23: POC Whole Blood Glucose 103 02/04/20 17:47: POC Whole Blood Glucose [Pending] 02/04/20 23:07: POC Whole Blood Glucose [Pending] 02/05/20 04:02: White Blood Count 9.2, Red Blood Count 3.04L, Hemoglobin 9.1L, Hematocrit 27.7L, Mean Corpuscular Volume 91, Mean Corpuscular Hemoglobin 29.8, Mean Corpuscular Hemoglobin Concent 32.7, Red Cell Distribution Width 15.1H, Platelet Count 331, Mean Platelet Volume 6.3L, Neutrophils (%) (Auto) 64.4, Lymphocytes (%) (Auto) 20.5, Monocytes (%) (Auto) 11.1H, Eosinophils (%) (Auto) 2.8, Basophils (%) (Auto) 1.3 02/05/20 04:58: POC Whole Blood Glucose [Pending] Height (Feet): 5 Height (Inches): 1.00 Weight (Pounds): 81 General Appearance: no apparent distress EENT: normal ENT inspection Neck: supple Cardiovascular: normal rate Respiratory/Chest: decreased breath sounds Abdomen: hypoactive bowel sounds Extremities: non-tender Assessment/Plan Problem List: (1) G tube feedings ICD Codes: Z93.1 - Gastrostomy status SNOMED: 880880164, 195305691, 340839828 (2) GI bleed ICD Codes: K92.2 - Gastrointestinal hemorrhage, unspecified SNOMED: 52606864 (3) Sepsis ICD Codes: A41.9 - Sepsis, unspecified organism SNOMED: 57495493 (4) Pneumonia ICD Codes: J18.9 - Pneumonia, unspecified organism SNOMED: 898919970 Status: stable, other - Patient is now hypotensive before over 46 she will receive 500 cc of normal saline bolus to be repeated blood pressure remained below 90 further management will be decided following the boluses treatment repeat laboratory tests will be done in a.m. GEM MCKAY MD Assessment/Plan: s/p EGD gastric ulcer monitor H&H C. Diff positive>> now neg rectal bleed last night and now it has resolved resume GTF add prn imodium carafate and ppi will fu Satish Carrillo MD Feb 05, 2020 09:59
--- NOTE | 2020-02-05 10:37 | Pulmonology Progress Note ---
Ivanna Mora ENTERTAINMENT & [employer]IA CORRESPONDENT 02/05/20 1038: Subjective ROS Limited/Unobtainable: No Allergies: Coded Allergies: CARBAMAZEPINE (Verified Allergy, Unknown, 12/31/19) LORAZEPAM (Verified Allergy, Unknown, 12/31/19) All Systems: reviewed and negative except above Subjective in JULIANA no signs of resp distress on current vent settings BP better , on Midodrine, off Dopamine gtt low grade fevers last night 02/03 leuk resolved CXR 02/01- Interval development of retrocardiac airspace opacities which could represent atelectasis versus developing consolidation. CXR for this am pending SCX + GNR less output from rectal tube Objective Last 24 Hour Vital Signs Date Time Temp Pulse Resp B/P (MAP) Pulse Ox O2 Delivery O2 Flow Rate FiO2 02/05/20 09:00 97 02/05/20 08:00 96.8 81 20 93/57 (69) 100 02/05/20 08:00 Mechanical Ventilator 02/05/20 08:00 30 02/05/20 07:20 71 21 30 02/05/20 04:00 98.4 62 18 97/52 (67) 100 02/05/20 04:00 Mechanical Ventilator 02/05/20 04:00 30 02/05/20 03:36 65 02/05/20 03:16 91 22 30 02/05/20 00:00 Mechanical Ventilator 02/05/20 00:00 98.1 80 16 107/52 (70) 100 02/04/20 23:48 82 02/04/20 23:06 84 24 30 02/04/20 21:42 99.5 02/04/20 20:00 100.9 78 18 100/67 (78) 98 02/04/20 20:00 30 02/04/20 20:00 Mechanical Ventilator 02/04/20 19:38 79 02/04/20 19:38 98 24 30 02/04/20 17:42 100.8 02/04/20 17:00 100.8 02/04/20 16:00 85 02/04/20 16:00 101.8 81 18 94/54 (67) 100 02/04/20 16:00 30 02/04/20 16:00 Mechanical Ventilator 02/04/20 15:10 90 21 30 02/04/20 12:00 30 02/04/20 12:00 Mechanical Ventilator 02/04/20 12:00 99.0 77 18 114/71 (85) 100 02/04/20 12:00 102 02/04/20 10:40 90 26 30 Intake and Output 02/04/20 02/05/20 19:00 07:00 Intake Total 1635 ml 1433.75 ml Output Total 1000 ml 1000 ml Balance 635 ml 433.75 ml Intake Free Water 120 ml 70 ml IV Total 965 ml 813.75 ml Tube Feeding 550 ml 550 ml Stool Total 1000 ml 1000 ml # Voids 2 Objective General Appearance: bedridden, pale, chronically ill looking, older than her biological age ; vent dependent female ; on vent SIMV 450-30%-12, PEEP 5 Lines, tubes and drains: trach HEENT: normocephalic, atraumatic Neck: trach - Portex #7, secretions small amount, yellow color, thin consistency Respiratory/Chest: CTAB Cardiovascular/Chest: regular rate, regular rhythm Abdomen: non tender, soft, G tube , rectal tube Genitourinary/Rectal: [place] Extremities: no edema, muscle atrophy Neurologic: abnormal gait, awake, poorly responsive Musculoskeletal: atrophy BLE Skin: multiple tattoos Microbiology Date/Time Source Procedure Growth Status 02/03/20 14:00 Sputum Gram Stain - Final Resulted 02/03/20 14:00 Sputum Culture - Preliminary Gram Negative Bacillus 1 Resulted Laboratory Tests 02/04/20 11:23: POC Whole Blood Glucose 103 02/04/20 17:47: POC Whole Blood Glucose [Pending] 02/04/20 23:07: POC Whole Blood Glucose [Pending] 02/05/20 04:02: White Blood Count 9.2, Red Blood Count 3.04L, Hemoglobin 9.1L, Hematocrit 27.7L, Mean Corpuscular Volume 91, Mean Corpuscular Hemoglobin 29.8, Mean Corpuscular Hemoglobin Concent 32.7, Red Cell Distribution Width 15.1H, Platelet Count 331, Mean Platelet Volume 6.3L, Neutrophils (%) (Auto) 64.4, Lymphocytes (%) (Auto) 20.5, Monocytes (%) (Auto) 11.1H, Eosinophils (%) (Auto) 2.8, Basophils (%) (Auto) 1.3 02/05/20 04:58: POC Whole Blood Glucose [Pending] Current Medications Medications (Trade) Dose Ordered Sig/Villa Route PRN Reason Start Time Stop Time Status Last Admin Dose Admin Acetaminophen (Tylenol) 650 mg Q4H PRN GT Temp >100.5 02/01/20 20:30 03/02/20 20:29 02/04/20 21:12 Ascorbic Acid (Vitamin C) 500 mg DAILY GT 01/28/20 09:30 02/27/20 09:29 02/05/20 09:13 Dextrose/Sodium Chloride 1,000 ml @ 75 mls/hr [id number] IV 01/29/20 13:00 02/27/20 12:59 02/04/20 23:09 Famotidine (Pepcid I.v.) 20 mg Q12HR IVP 01/29/20 21:00 02/28/20 20:59 02/05/20 09:13 Fidaxomicin (Dificid) 200 mg EVERY 12 HOURS ORAL 02/05/20 11:00 02/06/20 09:01 Gabapentin (Neurontin) 900 mg TID GT 01/28/20 09:30 02/19/20 09:29 02/05/20 09:12 Gentamicin Protocol (Gentamicin pharmacy to dose) 1 ea DAILY PRN MISC Per rx protocol 02/02/20 17:00 03/03/20 16:59 Gentamicin Sulfate 200 mg/ Sodium Chloride 115 ml @ 115 mls/hr Q24H IVPB 02/02/20 18:00 02/09/20 17:59 02/04/20 17:12 Haloperidol Lactate (Haldol) 5 mg Q6H PRN IM Agitation 01/28/20 09:30 02/15/20 09:29 Levetiracetam (Keppra) 1,500 mg Q12HR GT 01/28/20 09:30 02/07/20 09:29 02/05/20 09:12 Levothyroxine Sodium (Synthroid) 50 mcg ACBREAKFAST GT 01/29/20 06:30 02/10/20 06:29 02/05/20 05:44 Loperamide HCl (Imodium) 2 mg Q4H PRN ORAL Diarrhea 02/05/20 10:00 03/06/20 09:59 Metronidazole 100 ml @ 100 mls/hr Q8H IVPB 02/05/20 12:00 02/06/20 04:59 Midodrine (Pro-Amatine) 10 mg TID GT 01/28/20 18:00 04/21/20 09:29 02/05/20 09:13 Multivitamins (Multivitamins W/ Minerals 15ml Liquid) 15 ml DAILY GT 01/28/20 09:30 02/27/20 09:29 02/05/20 09:12 Oxcarbazepine (TrileptaL) 300 mg BEDTIME GT 01/28/20 21:00 02/07/20 20:59 02/04/20 21:08 Pantoprazole (Protonix) 40 mg EVERY 12 HOURS IVP 01/31/20 09:30 03/01/20 09:29 02/05/20 09:13 Potassium Chloride (K-Dur) 40 meq TWICE A DAY ORAL 02/02/20 18:00 05/02/20 17:59 02/05/20 09:13 Sucralfate (Carafate) 1 gm FOUR TIMES A DAY ORAL 01/30/20 09:00 04/29/20 08:59 02/05/20 09:13 Thiamine HCl (Vitamin B1) 100 mg DAILY GT 01/28/20 09:30 02/27/20 09:29 02/05/20 09:13 Assessment/Plan Assessment/Plan ASSESSMENT VDRF/trach status Sepsis Possible pneumonia UTI recurrent GI bleeding severe C dif colitis Anemia secondary to GI bleeding Aspiration risk Dysphagia, feeding by G-tube Encephalopathy Acute kidney injury likely secondary to dehydration Recurrent bradycardia persistent Hypotension Electrolyte imbalance Severe protein calorie malnutrition Hx of hypertension History of CVA Seizure disorder with witnessed seizure episode 01/07 Psychiatric disorder Presumed scabies, s/p Rx Thrombocytopenia-transient- resolved PLAN OF CARE JULIANA off Dopamine gtt, BP better with Midodrine only on IVF, vent support, pulm toilet ABG stable on current settings on SIMV mode 450-30-12 PEEP5 , no signs of resp distress on these settings keep settings as is and titrate as needed now tachypneic intermittently CXR 01/27 no acute disease pulm toilet via [facility] CT chest 01/28 - with tree-in-bud nodular opacities in the medial left base and lingula with left bronchial bubbly material suggesting infectious or inflammatory bronchiolitis, likely due to aspiration. Small amount of similar foci seen in the right posterior lower lobe. Mild bronchiectasis and reticulation in the lingula, medial left base, and superior left upper lobe could also be due to chronic infection. CXR 02/01 -Interval development of retrocardiac airspace opacities which could represent atelectasis versus developing consolidation. probably ATX , given no fevers, resolved leukocytosis, no resp distress on current settings CXR 02/04 pending leuk resolved , + fevers 02/03 evening pancx-per ID CXR 01/13- no acute findings KUB 01/13- no acute findings UA + yeast , 01/12 UCX +yeast, started on Fluconazole 01/14 as per ID -completed BCX 01/12 NGTD BCX 01/26 and 01/27 NGTD UCX 01/27 + Klebs CR- started on Gent per ID recs given prior leukocytosis and f jovita SCX 02/02 + GNR, fup with final ID abx as per ID recs Vanco po was prior dc and switched to Dificid , also on Flagyl per GI -till 01/28 , both extended till 02/03 inflammatory markers : ESR-42, CRP- wnl WBC smear NGT C dif a/b 01/30 NGT less output from rectal tube CT C/ A/P noted ( see results of CT chest above), CT A/P with findings most compatible with ileus and probable infectious or inflammatory enteritis or enterocolitis. off cefepime rapid COVID 19 NGT in ED aspiration precautions Venous Duplex BLE -negative, get SCD ( unable to give a/c given anemia) closely monitor hemodynamic status heme and GI follows s/p prior EGD 01/01 -> gastric ulcer across G tube site , no active bleeding s/p EGD 01/30 -> gastric ulceration without visible bleeding Protonix IV bid ( changed from Protonix gtt), Carafate GT feeding resumed as per GI , s/p blood tx 01/30 stool OB positive , another pending transfuse to keep Hgb > 7. HH at baseline trend LFT-> trended down, hep panel NGT hx of cirrhosis- per GI management monitor renal parameters, lytes, avoid nephrotoxic IVF BUN trending down, creat stable, likely prerenal due to dehydration replace e/lytes as per nephro recs , K , P and Mg replaced this am as per nephro monitor volumes seizure precautions, antiepileptic optimized as per neuro recs ammonia 49, fup with further neuro recs EEG - grossly abnormal; mild to mod encephalopathy, single ictal episode CT head no acute IC pathology BP management with current regimen [facility] meds supportive care dietary recs s/p 12/31 Rx for presumed scabies with permethrin and Ivermectin, repeated Ivermectin 01/08 case discussed and evaluated by supervising physician Raul Esparza MD 02/05/20 1358: Subjective Allergies: Coded Allergies: CARBAMAZEPINE (Verified Allergy, Unknown, 12/31/19) LORAZEPAM (Verified Allergy, Unknown, 12/31/19) Assessment/Plan Assessment/Plan Patient seen and examined with ENTERTAINMENT & MEDIA CORRESPONDENT. Agree with above A&P as it reflects our joint deliberations. Ivanna Mora ENTERTAINMENT & MEDIA CORRESPONDENT Feb 05, 2020 10:38 Raul Esparza MD Feb 05, 2020 13:58
--- NOTE | 2020-02-05 11:06 | Infectious Diseases Prog Note ---
Assessment/Plan 39yo F with: Severe Sepsis Fever, recurrent; improving Leukocytosis; recurrent; Sp UTI -02/02 sp cx GNR -02/01 CXR: Interval development of retrocardiac airspace opacities which could represent atelectasis versus developing consolidation. u/a wbc 5-10, nit neg, leuk +2; -01/28 CXR: Subtle reticular nodular opacities in the left apex which may be related to scarring versus acute small airway disease/bronchitis CT c/abd/p wo: Study substantially limited due to lack of IV contrast. Findings most compatible with ileus and probable infectious or inflammatory enteritis or enterocolitis. Large low-attenuation pelvic fluid of uncertain significance, potentially reactive.Appendix not identified. Percutaneous gastrostomy tube adequately positioned in the stomach. Rectal tube. Urinary bladder wall thickening could be incidental, due to high outlet pressures, or could represent cystitis.Cholecystectomy. -01/27 u/a no pyuria, nit +, leuk +3; ucx >100k CRE K, pna (S Gentamycin), P . miriabilis, MDR P, fluorensces (I Gentamycin) CXR: no acute disease Bc xNTD -01/26 Bcx Neg -01/13 CXR: no acute disease -01/12 u/a wbc tnct, nit neg, latrell +3; ucx >100k C. tropicalis Bcx NTD Severe Cdiff colitis -01/30 Cdif toxin a/b neg -01/06 Cdif toxin + 01/27 KUB:Severely dilated small bowel loop in the central abdomen could reflect obstruction. Diffusely fluid distended colon. -01/13 KUB: no acute findings Recurrent GIB 01/06 u/aneg 12/30 BCx 1/2 +CONS, likely contaminant 12/30 UA neg, COVID rapid Ag neg 12/30 CXR 1. Density overlying the bilateral lung apices. May represent pleural thickening, multifocal airspace opacities, versus summation artifact. 01/01 BCx Neg 01/02 BCx Neg Acute blood loss anemia Possible pna on CXR, sp rx Seizure episode -01/10 CT head: Third and lateral ventriculomegaly. Associated enlargement of the extra axial CSF spaces indicates that this is probably due to central volume loss, but the possibility of hydrocephalus should also be considered. At the degree of volume loss is considerably out of proportion to patient's age. Periventricular deep white matter low-attenuation. Probably on the basis of microvascular ischemic change but given patient's age the possibility of demyelinating disease should be considered as well. Negative for acute intracranial bleed or mass effect Possible Scabies SP tx w/ Permethrin and Ivermectin 12/31 R/o DVT: None on US 12/30 MRSA nares neg Recurrent GIBs, FOBT+ Hepatic encephalopathy, chronic S/p Trach/PEG Resides at [facility] and CRE colonized Plan: PO Dificid # as failing PO Vancomycin Flagyl on IV Gentamicin # 4/5-7 for UTI given recurrent fever and leukocytosis ' 01/30 SP Cefepime #4 01/29 SP IV Vancomycin #3 01/19/20 SP fluconazole #5 01/15 SP PO Vancomycin #8 01/08 SP Ceftriaxone #7 01/02 SP vanco #2, Zosyn #2 SP 2nd dose of ivermectin (01/08) Monitor CBC/CMP Monitor resp status Monitor temp and hemodynamics Cdiff contact isolation until diarrhea free for 48hrs f/u repaet cultures GI, GEn sx, pulm f/u D/w RN Thank you for this consult. [facility] will continue to follow. Subjective Allergies: Coded Allergies: CARBAMAZEPINE (Verified Allergy, Unknown, 12/31/19) LORAZEPAM (Verified Allergy, Unknown, 12/31/19) TM 101.8; now afebrile in >12hrs leukocytosis resolved Bcx NTD Objective Last 24 Hour Vital Signs Date Time Temp Pulse Resp B/P (MAP) Pulse Ox O2 Delivery O2 Flow Rate FiO2 02/05/20 09:00 97 02/05/20 08:00 96.8 81 20 93/57 (69) 100 02/05/20 08:00 Mechanical Ventilator 02/05/20 08:00 30 02/05/20 07:20 71 21 30 02/05/20 04:00 98.4 62 18 97/52 (67) 100 02/05/20 04:00 Mechanical Ventilator 02/05/20 04:00 30 02/05/20 03:36 65 02/05/20 03:16 91 22 30 02/05/20 00:00 Mechanical Ventilator 02/05/20 00:00 98.1 80 16 107/52 (70) 100 02/04/20 23:48 82 02/04/20 23:06 84 24 30 02/04/20 21:42 99.5 02/04/20 20:00 100.9 78 18 100/67 (78) 98 02/04/20 20:00 30 02/04/20 20:00 Mechanical Ventilator 02/04/20 19:38 79 02/04/20 19:38 98 24 30 02/04/20 17:42 100.8 02/04/20 17:00 100.8 02/04/20 16:00 85 02/04/20 16:00 101.8 81 18 94/54 (67) 100 02/04/20 16:00 30 02/04/20 16:00 Mechanical Ventilator 02/04/20 15:10 90 21 30 02/04/20 12:00 30 02/04/20 12:00 Mechanical Ventilator 02/04/20 12:00 99.0 77 18 114/71 (85) 100 02/04/20 12:00 102 Height (Feet): 5 Height (Inches): 1.00 Weight (Pounds): 81 General Appearance: no apparent distress Neck: supple Cardiovascular: normal rate Respiratory/Chest: decreased breath sounds Abdomen: hypoactive bowel sounds Extremities: non-tender Microbiology Date/Time Source Procedure Growth Status 02/03/20 14:00 Sputum Gram Stain - Final Resulted 02/03/20 14:00 Sputum Culture - Preliminary Gram Negative Bacillus 1 Resulted Laboratory Tests Test 02/04/20 11:23 02/04/20 17:47 02/04/20 23:07 02/05/20 04:02 POC Whole Blood Glucose 103 MG/DL (74-106) Pending Pending White Blood Count 9.2 K/UL (4.8-10.8) Red Blood Count 3.04 M/UL (4.20-5.40) L Hemoglobin 9.1 G/DL (12.0-16.0) L Hematocrit 27.7 % (37.0-47.0) L Mean Corpuscular Volume 91 FL (80-99) Mean Corpuscular Hemoglobin 29.8 PG (27.0-31.0) Mean Corpuscular Hemoglobin Concent 32.7 G/DL (32.0-36.0) Red Cell Distribution Width 15.1 % (11.6-14.8) H Platelet Count 331 K/UL (150-450) Mean Platelet Volume 6.3 FL (6.5-10.1) L Neutrophils (%) (Auto) 64.4 % (45.0-75.0) Lymphocytes (%) (Auto) 20.5 % (20.0-45.0) Monocytes (%) (Auto) 11.1 % (1.0-10.0) H Eosinophils (%) (Auto) 2.8 % (0.0-3.0) Basophils (%) (Auto) 1.3 % (0.0-2.0) Test 02/05/20 04:58 POC Whole Blood Glucose Pending Current Medications Medications (Trade) Dose Ordered Sig/Villa Route PRN Reason Start Time Stop Time Status Last Admin Dose Admin Acetaminophen (Tylenol) 650 mg Q4H PRN GT Temp >100.5 02/01/20 20:30 03/02/20 20:29 02/04/20 21:12 Ascorbic Acid (Vitamin C) 500 mg DAILY GT 01/28/20 09:30 02/27/20 09:29 02/05/20 09:13 Dextrose/Sodium Chloride 1,000 ml @ 75 mls/hr [id number] IV 01/29/20 13:00 02/27/20 12:59 02/04/20 23:09 Famotidine (Pepcid I.v.) 20 mg Q12HR IVP 01/29/20 21:00 02/28/20 20:59 02/05/20 09:13 Fidaxomicin (Dificid) 200 mg EVERY 12 HOURS ORAL 02/05/20 11:00 02/06/20 09:01 Gabapentin (Neurontin) 900 mg TID GT 01/28/20 09:30 02/19/20 09:29 02/05/20 09:12 Gentamicin Protocol (Gentamicin pharmacy to dose) 1 ea DAILY PRN MISC Per rx protocol 02/02/20 17:00 03/03/20 16:59 Gentamicin Sulfate 200 mg/ Sodium Chloride 115 ml @ 115 mls/hr Q24H IVPB 02/02/20 18:00 02/09/20 17:59 02/04/20 17:12 Haloperidol Lactate (Haldol) 5 mg Q6H PRN IM Agitation 01/28/20 09:30 02/15/20 09:29 Levetiracetam (Keppra) 1,500 mg Q12HR GT 01/28/20 09:30 02/07/20 09:29 02/05/20 09:12 Levothyroxine Sodium (Synthroid) 50 mcg ACBREAKFAST GT 01/29/20 06:30 02/10/20 06:29 02/05/20 05:44 Loperamide HCl (Imodium) 2 mg Q4H PRN ORAL Diarrhea 02/05/20 10:00 03/06/20 09:59 Metronidazole 100 ml @ 100 mls/hr Q8H IVPB 02/05/20 12:00 02/06/20 04:59 Midodrine (Pro-Amatine) 10 mg TID GT 01/28/20 18:00 04/21/20 09:29 02/05/20 09:13 Multivitamins (Multivitamins W/ Minerals 15ml Liquid) 15 ml DAILY GT 01/28/20 09:30 02/27/20 09:29 02/05/20 09:12 Oxcarbazepine (TrileptaL) 300 mg BEDTIME GT 01/28/20 21:00 02/07/20 20:59 02/04/20 21:08 Pantoprazole (Protonix) 40 mg EVERY 12 HOURS IVP 01/31/20 09:30 03/01/20 09:29 02/05/20 09:13 Potassium Chloride (K-Dur) 40 meq TWICE A DAY ORAL 02/02/20 18:00 05/02/20 17:59 02/05/20 09:13 Sucralfate (Carafate) 1 gm FOUR TIMES A DAY ORAL 01/30/20 09:00 04/29/20 08:59 02/05/20 09:13 Thiamine HCl (Vitamin B1) 100 mg DAILY GT 01/28/20 09:30 02/27/20 09:29 02/05/20 09:13 Char Morel M.D. Feb 05, 2020 11:06
[2020-02-05] MEDS: Acetaminophen 650mg/20.3ml GT PRN (11:43)
[2020-02-05 12:00] VITALS: BP 95/48
[2020-02-05] MEDS: D5 1/2NS 1,000 ML IV SCH (13:31)
--- NOTE | 2020-02-05 13:38 | Nephrology Progress Note ---
Assessment/Plan Problem List: (1) RICHARD (acute kidney injury) (2) Dehydration (3) Anemia (4) GI bleed (5) Malnutrition (6) Seizure disorder (7) Electrolyte imbalance Assessment Renal failure, in the form of prerenal azotemia, most likely secondary to GI bleed GI bleed, leading to severe anemia Sepsis, pneumonia Chronic tracheostomy, ventilator dependent History of CVA History of seizure disorder History of psychiatric disorder Severe malnutrition Electrolyte abnormalities Plan February 04: No chemistry panel done today. Remains stable from renal standpoint of view. Continue to monitor renal parameters. February 03: Labs reviewed. Renal parameters stable. Continue her consultan ts. February 02: Lab reviewed. Low phosphorus low magnesium corrections ordered. Continue to monitor electrolytes and renal parameters. February 01: Lab reviewed. Low phosphorus and low magnesium replaced. Low potassium replaced. Continue to monitor electrolytes. Continue per consultants. January 31: Lab reviewed. Hemoglobin higher. Renal parameters stable. Potassium and phosphorus supplement given. January 30: Labs reviewed. Low mag low phosphorus and low potassium replaced. White blood cells 16,000 today. Remains full code. Continue to monitor hemoglobin and hematocrit and electrolytes. January 29: Labs reviewed. Magnesium, potassium, phosphorus supplement given. White blood cells down to 22,000. Remains full code. Continue per shahida harmon. RN reports rectal bleed. Hemoglobin drifting down. Defer management to reinforced concrete inspector who is already on the case. January 28: Status quo. Electrolyte abnormalities noted. Mag Phos and potassium supplement IV given. Renal parameters stable. Continue per consultants. Leukocytosis persists. January 27: Significant rise in white blood cell counts. Hypotensive. Now in ICU. Will give albumin bolus. Continue to monitor renal parameters. Continue per ID advice. January 26: Continue to monitor renal parameters. Patient remains on ventilator. Patient is full code. Continue per consultants. January 25: Status quo. Labs reviewed. Continue per consultants. January 24: Status unchanged. Labs reviewed. Remains stable from renal s tandpoint of view. January 23: Back in [place]. Stable from renal standpoint of view. Continue per consultants. January 22: Patient in ICU now. Vital signs and heart rate and blood pressure appears to be stable. Patient had an episode of bradycardia but it was resolved. TSH level today is very low will cut down on Synthroid dose. January 21: Today's labs are reviewed. Stable renal parameters. Continue per consultants. January 20: Labs reviewed. Renal parameters stable. January 19: Labs reviewed. Stable from renal standpoint. January 18: No labs done today. Continue per consultants. Medications reviewed. January 17: Late note entry due to system problem at the [facility] today.Chemistry panel reviewed. Stable from renal standpoint of view. Continue per current management. January 16: No can panel today. Check lab tomorrow. Remains stable from renal standpoint of view. January 15: Lab reviewed. Renal parameters stable. January 14: Lab reviewed. Renal parameters stable. January 13: Labs reviewed. Stable from renal standpoint of view. January 12: Labs reviewed. Stable from renal standpoint of view January 11: No labs drawn today stable from renal standpoint of view January 10: Labs reviewed. Potassium supplement given. Continue per consultants. January 09: Lab reviewed. Potassium supplement given. IV fluid discontinued. January 08: Lab reviewed. Renal parameters stable. Continue per consultants. January 07: Lab reviewed. Renal parameters stable. Continue per consultants. January 06: Lab reviewed. Stable from renal standpoint of view. January 05: Labs reviewed. Stable from renal standpoint of view. Continue per consultants. January 04: No labs drawn today. Will check labs tomorrow. Continue per consultants. January 03: Lab reviewed. Renal parameters stable. IV fluid discontinued. High LFTs declining. Continue same. January 02: Lab reviewed. Renal parameters stable. Continue per PMD and consultants. LFTs remain elevated. Continue to monitor. Continue slow hydration Discontinue blood pressure medications as her blood pressure is low Discontinue diuretics Monitor renal parameters Transfusion as needed GI evaluation Correct electrolyte abnormalities Check B12 level, folate, and thyroid function tests: Results noted Subjective ROS Limited/Unobtainable: Yes Objective Objective Last 24 Hour Vital Signs Date Time Temp Pulse Resp B/P (MAP) Pulse Ox O2 Delivery O2 Flow Rate FiO2 02/05/20 12:13 99.3 02/05/20 11:05 66 22 30 02/05/20 09:00 97 02/05/20 08:00 96.8 81 20 93/57 (69) 100 02/05/20 08:00 Mechanical Ventilator 02/05/20 08:00 30 02/05/20 07:42 70 02/05/20 07:41 74 02/05/20 07:20 71 21 30 02/05/20 04:00 98.4 62 18 97/52 (67) 100 02/05/20 04:00 Mechanical Ventilator 02/05/20 04:00 30 02/05/20 03:36 65 02/05/20 03:16 91 22 30 02/05/20 00:00 Mechanical Ventilator 02/05/20 00:00 98.1 80 16 107/52 (70) 100 02/04/20 23:48 82 02/04/20 23:06 84 24 30 02/04/20 21:42 99.5 02/04/20 20:00 100.9 78 18 100/67 (78) 98 02/04/20 20:00 30 02/04/20 20:00 Mechanical Ventilator 02/04/20 19:38 79 02/04/20 19:38 98 24 30 02/04/20 17:42 100.8 02/04/20 17:00 100.8 02/04/20 16:00 85 02/04/20 16:00 101.8 81 18 94/54 (67) 100 02/04/20 16:00 30 02/04/20 16:00 Mechanical Ventilator 02/04/20 15:10 90 21 30 Intake and Output 02/04/20 02/05/20 19:00 07:00 Intake Total 1635 ml 1433.75 ml Output Total 1000 ml 1000 ml Balance 635 ml 433.75 ml Intake Free Water 120 ml 70 ml IV Total 965 ml 813.75 ml Tube Feeding 550 ml 550 ml Stool Total 1000 ml 1000 ml # Voids 2 No chemistry panel done today Laboratory Tests 02/04/20 17:47: POC Whole Blood Glucose [Pending] 02/04/20 23:07: POC Whole Blood Glucose [Pending] 02/05/20 04:02: White Blood Count 9.2, Red Blood Count 3.04L, Hemoglobin 9.1L, Hematocrit 27.7L, Mean Corpuscular Volume 91, Mean Corpuscular Hemoglobin 29.8, Mean Corpuscular Hemoglobin Concent 32.7, Red Cell Distribution Width 15.1H, Platelet Count 331, Mean Platelet Volume 6.3L, Neutrophils (%) (Auto) 64.4, Lymphocytes (%) (Auto) 20.5, Monocytes (%) (Auto) 11.1H, Eosinophils (%) (Auto) 2.8, Basophils (%) (Auto) 1.3 02/05/20 04:58: POC Whole Blood Glucose [Pending] 02/05/20 11:41: POC Whole Blood Glucose 100 Height (Feet): 5 Height (Inches): 1.00 Weight (Pounds): 81 General Appearance: no apparent distress EENT: other - Trach to vent Cardiovascular: normal rate Respiratory/Chest: decreased breath sounds Abdomen: distended Objective No change Chivo Holloway MD Feb 05, 2020 13:38
[2020-02-05 16:00] VITALS: BP 117/58
--- NOTE | 2020-02-05 16:38 | Diagnostic Imaging Report ---
Indication: Shortness of breath Technique: One view of the chest Comparison: 02/02/2020 Findings: Chronic appearing perihilar interstitial prominence and bronchial wall thickening are again noted. There is a possible infiltrates at the left lung base which appears slightly improved.. There appears to be decreased peripheral hazy opacity in the left lung. Impression: Bilateral mostly interstitial opacities; suspect largely chronic although there may be an acute component at the left lung base. The latter does appear somewhat improved since the previous exam.
[2020-02-05] MEDS: GENTAMICIN IVPB SCH (17:33)
[2020-02-05] MEDS: NS IVPB SCH (17:33)
--- NOTE | 2020-02-05 19:47 | Cardiology Progress Note ---
Assessment/Plan Assessment/Plan 1. Septic shock, continue midodrine. 2. Sinus bradycardia, resolved. 3. Anemia of chronic disease 4. Acute renal failure, resolved. 5. GI bleeding due to gastric ulceration. 6. Dysphagia, s/p PEG placement, s/p EGD. 7. VDRF, s/p tracheostomy tube placement. Subjective Subjective Sinus rhythm at rate of 83. On the vent with FiO2 of 30%. Objective Last 24 Hour Vital Signs Date Time Temp Pulse Resp B/P (MAP) Pulse Ox O2 Delivery O2 Flow Rate FiO2 02/05/20 16:00 99.1 83 22 117/58 (77) 100 02/05/20 16:00 Mechanical Ventilator 02/05/20 16:00 70 02/05/20 16:00 30 02/05/20 15:29 69 20 30 02/05/20 12:13 99.3 02/05/20 12:00 Mechanical Ventilator 02/05/20 12:00 75 02/05/20 12:00 99.5 74 22 95/48 (64) 100 02/05/20 12:00 30 02/05/20 11:05 66 22 30 02/05/20 09:00 97 02/05/20 08:00 96.8 81 20 93/57 (69) 100 02/05/20 08:00 Mechanical Ventilator 02/05/20 08:00 30 02/05/20 07:42 70 02/05/20 07:41 74 02/05/20 07:20 71 21 30 02/05/20 04:00 98.4 62 18 97/52 (67) 100 02/05/20 04:00 Mechanical Ventilator 02/05/20 04:00 30 02/05/20 03:36 65 02/05/20 03:16 91 22 30 02/05/20 00:00 Mechanical Ventilator 02/05/20 00:00 98.1 80 16 107/52 (70) 100 02/04/20 23:48 82 02/04/20 23:06 84 24 30 02/04/20 21:42 99.5 02/04/20 20:00 100.9 78 18 100/67 (78) 98 02/04/20 20:00 30 02/04/20 20:00 Mechanical Ventilator Intake and Output 02/04/20 02/05/20 19:00 07:00 Intake Total 1635 ml 1433.75 ml Output Total 1000 ml 1000 ml Balance 635 ml 433.75 ml Intake Free Water 120 ml 70 ml IV Total 965 ml 813.75 ml Tube Feeding 550 ml 550 ml Stool Total 1000 ml 1000 ml # Voids 2 2D Echo: LVEF 65%, RVSP 23 mmHg, Grade I LVDD Laboratory Tests Test 02/04/20 23:07 02/05/20 04:02 02/05/20 04:58 02/05/20 11:41 POC Whole Blood Glucose Pending Pending 100 MG/DL (74-106) White Blood Count 9.2 K/UL (4.8-10.8) Red Blood Count 3.04 M/UL (4.20-5.40) L Hemoglobin 9.1 G/DL (12.0-16.0) L Hematocrit 27.7 % (37.0-47.0) L Mean Corpuscular Volume 91 FL (80-99) Mean Corpuscular Hemoglobin 29.8 PG (27.0-31.0) Mean Corpuscular Hemoglobin Concent 32.7 G/DL (32.0-36.0) Red Cell Distribution Width 15.1 % (11.6-14.8) H Platelet Count 331 K/UL (150-450) Mean Platelet Volume 6.3 FL (6.5-10.1) L Neutrophils (%) (Auto) 64.4 % (45.0-75.0) Lymphocytes (%) (Auto) 20.5 % (20.0-45.0) Monocytes (%) (Auto) 11.1 % (1.0-10.0) H Eosinophils (%) (Auto) 2.8 % (0.0-3.0) Basophils (%) (Auto) 1.3 % (0.0-2.0) Test 02/05/20 16:14 POC Whole Blood Glucose Pending Microbiology Date/Time Source Procedure Growth Status 02/03/20 14:00 Sputum Gram Stain - Final Resulted 02/03/20 14:00 Sputum Culture - Preliminary Gram Negative Bacillus 1 Resulted Objective HEENT: PERRLA, EOMI, +Trach tube. NECK: Cannot assess JVP, no carotid bruit with normal upstroke. LUNGS: Bilateral rhonchi. CARDIAC: Regular rhythm and rate. Normal S1, S2, no murmurs, gallops or rubs. ABDOMEN: Soft with G-tube. No hepatomegaly. EXTREMITIES: No edema, clubbing or cyanosis. Desmond Gleason MD Feb 05, 2020 19:47
[2020-02-05 20:00] VITALS: BP 101/59
[2020-02-05] MEDS: OXcarbazepine 150mg tab GT SCH (20:40)
[2020-02-06] VITALS: BP 98/61
[2020-02-06] MEDS: D5 1/2NS 1,000 ML IV SCH ×2 (03:30→15:36)
[2020-02-06 03:54] LABS: BASOPHILS % (AUTO) 0.9 % (0.0-2.0); EOSINOPHILS % (AUTO) 2.3 % (0.0-3.0); HEMATOCRIT 27.6 % (37.0-47.0); LYMPHOCYTES % (AUTO) 18.7 % (20.0-45.0); MEAN CORPUSCULAR VOLUME 91 FL (80-99); MONOCYTES % (AUTO) 9.5 % (1.0-10.0); NEUTROPHILS % (AUTO) 68.6 % (45.0-75.0); PLATELET COUNT 335 K/UL (150-450); RED BLOOD COUNT 3.03 M/UL (4.20-5.40); RED CELL DISTRIBUTION WIDTH 14.8 % (11.6-14.8); WHITE BLOOD COUNT 11.4 K/UL (4.8-10.8)
[2020-02-06 04:00] VITALS: BP 101/59
[2020-02-06 04:46] LABS: ALANINE AMINOTRANSFERASE 9 U/L (12-78); ALBUMIN 1.6 G/DL (3.4-5.0); ALBUMIN/GLOBULIN RATIO 0.4 (1.0-2.7); ALKALINE PHOSPHATASE 58 U/L (46-116); ANION GAP 6 mmol/L (5-15); ASPARTATE AMINO TRANSFERASE 15 U/L (15-37); BILIRUBIN,TOTAL 0.2 MG/DL (0.2-1.0); BLOOD UREA NITROGEN 2 mg/dL (7-18); CARBON DIOXIDE 25 MMOL/L (21-32); CHLORIDE 108 MMOL/L (98-107); CREATININE 0.3 MG/DL (0.55-1.30); PHOSPHORUS 1.6 MG/DL (2.5-4.9); POTASSIUM 4.2 MMOL/L (3.5-5.1); SODIUM 139 MMOL/L (136-145)
[2020-02-06 08:00] VITALS: BP 106/65
--- NOTE | 2020-02-06 08:53 | Hematology/Onc Progress Note ---
Assessment/Plan Assessment/Plan # Anemia rule out underlying gi bleed --> Dr. Carrillo has been consulted-->endosco gastric ulceration --> trend hgb 7-->7.4-->7.9-->8.1->9.6-->8.5->9.1-->10-->11-->10.3-->10.4-->11->9.8-->7.4 ->9-->10.5-->9.1 --> anemia panel ordered-->reviewed --> prn transfusion --> protonix started # Leukocytosis is likely related to pna on imaging --> abx has been started --> if wbc worsens, consider abx vanc/zosyn--> ceftriaxone-->vanc->fluc/flagyl/vanc--> flagyl/fidoxomicin->vanc/cefepime/flagyl-->gentamcinflagyl --> smear is noted --> wbc 25-->15-->14-->16->7.6-->12-->20->13->11->14-->33-->16->8->11 --> pressors prn # Thrombocytopenia med related v labs error --> plt trend 167-->61-->227->373 --> meds have been reviewed --> no hep or lovenox # Sepsis --> on abx for pna --> pressors as needed --> fluids as per pcp for hypotension # Pneumonia --> pulm, Dr. 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 weight loss consultant care, will follow Subjective Constitutional: Denies: no symptoms, chills, fever, malaise, weakness, other HEENT: Denies: no symptoms, eye pain, blurred vision, tearing, double vision, ear pain, ear discharge, nose pain, nose congestion, throat pain, throat swellin g, mouth pain, mouth swelling, other Cardiovascular: Denies: no symptoms, chest pain, edema, irregular heart rate, lightheadedness, palpitations, syncope, other Respiratory: Denies: no symptoms, cough, shortness of breath, SOB with excertion, SOB at rest, sputum, wheezing, other Gastrointestinal/Abdominal: Denies: no symptoms, abdomen distended, abdominal pain, black stools, tarry stools, blood in stool, constipated, diarrhea, difficulty swallowing, nausea, poor appetite, poor fluid intake, rectal bleeding, vomiting, other Genitourinary: Denies: no symptoms, burning, discharge, frequency, flank pain, hematuria, incontinence, pain, urgency, other Neurologic/Psychiatric: Denies: no symptoms, anxiety, depressed, emotional problems, headache, numbness, paresthesia, pre-existing deficit, seizure, tingling, tremors, weakness, other Endocrine: Denies: no symptoms, excessive sweating, flushing, intolerance to cold, intolerance to heat, increased hunger, increased thirst, increased urine, unexplained weight gain, unexplained weight loss, other Allergies: Coded Allergies: CARBAMAZEPINE (Verified Allergy, Unknown, 12/31/19) LORAZEPAM (Verified Allergy, Unknown, 12/31/19) Subjective 01/01 altered, trach, no bleedin wbc improved on abx, seen by gi 01/02 egd study noted, also with plts 61k, have vitaly Armendariz Rn, will recheck cbc 01/03 remains agitated, vitaly rn, no bleeding, cbc noted as well as id recs 01/04 on vent, with melena overnight, no bleeding, vitaly rn, labs reviewed 01/06 on vent, remains agitated, no bleeding, vitaly longoria, smear is noted 01/07 on vent, restless, asymptomatic, noncooperative 01/[address] John obtained, reviewed, meds adjusted, eeg pending 01/09 labs noted, no bleeding, ativan has been discontinued, meds reviewed 01/10 trach to vent, agitated, with wrist restraints, no major changes, no bleeding 01/11 labs are reviewed, on trach to vent, no bleeding, agitated overnight, no complaints 01/13 labs noted, no bleeding, is on vent/trach, no bleeding, vitaly longoria, labs are noted 01/14 labs are noted, no bleeding, remains on v/t, remains agitated, no bleeding 9/1 is c.diff positive, wbc higher at 21k, labs noted, on abx, reviewed gi, id recs 01/16 remains on vent, wbc is improved, in sr, as abx per id 01/17 recieved dopamine, tube feeds, on soft restraints, no bleeding, vitaly rn 01/18 labs are noted, no bleeding, vitaly rn, no major changes 01/20 on dopamine gtt, with restraints, no major changes, labs noted 01/21 labs reviewed, no bleeding, vitaly rn, no major changes 01/22 transferred to icu for higher loc, dopamine on hold as bp is good, have increased Synthroid 01/23 labs are pending, meds noted, no bleeding, dopamine gtt ongoing, cbc noted 01/24 still nv, no bleeding, labs reviewed, vitaly rn, with rectal tube in place, on dopamine gtt 01/25 is on bipap, nv, no bleeding, remains on low dose pressorm hgb 11 01/27 on dopamine, hr was elevated overnight, cards aware 01/28 on vent, with ivfs running, rectal tube with red blood noted, consider gi eval 01/29 on vent, labs reviewed, wbc 22, hgb 8.4, on abx currently, vanc/flagyl/cefepime 02/02 labs reviewed, no bleeding, on vent, no night sweats, wbc improved 02/03 is on gtube feeds, with trach to vent, oxygen as needed, labs wbc better 02/04 nv, is on gt, on vent, no bleeding, labs are noted, guarded prognosis 02/05 labs are noted, nv, is on gt feeds, no bleeding, abx as needed Objective Objective Current Medications Medications (Trade) Dose Ordered Sig/Villa Route PRN Reason Start Time Stop Time Status Last Admin Dose Admin Acetaminophen (Tylenol) 650 mg Q4H PRN GT Temp >100.5 02/01/20 20:30 03/02/20 20:29 02/05/20 11:43 Ascorbic Acid (Vitamin C) 500 mg DAILY GT 01/28/20 09:30 02/27/20 09:29 02/05/20 09:13 Dextrose/Sodium Chloride 1,000 ml @ 75 mls/hr [id number] IV 01/29/20 13:00 02/27/20 12:59 02/06/20 03:30 Famotidine (Pepcid I.v.) 20 mg Q12HR IVP 01/29/20 21:00 02/28/20 20:59 02/05/20 20:40 Fidaxomicin (Dificid) 200 mg EVERY 12 HOURS ORAL 02/05/20 11:00 02/06/20 09:01 02/05/20 20:43 Gabapentin (Neurontin) 900 mg TID GT 01/28/20 09:30 02/19/20 09:29 02/05/20 17:33 Gentamicin Protocol (Gentamicin pharmacy to dose) 1 ea DAILY PRN MISC Per rx protocol 02/02/20 17:00 03/03/20 16:59 Gentamicin Sulfate 200 mg/ Sodium Chloride 115 ml @ 115 mls/hr Q24H IVPB 02/02/20 18:00 02/09/20 17:59 02/05/20 17:33 Haloperidol Lactate (Haldol) 5 mg Q6H PRN IM Agitation 01/28/20 09:30 02/15/20 09:29 Levetiracetam (Keppra) 1,500 mg Q12HR GT 01/28/20 09:30 02/07/20 09:29 02/05/20 20:41 Levothyroxine Sodium (Synthroid) 50 mcg ACBREAKFAST GT 01/29/20 06:30 02/10/20 06:29 02/06/20 05:50 Loperamide HCl (Imodium) 2 mg Q4H PRN ORAL Diarrhea 02/05/20 10:00 03/06/20 09:59 02/06/20 05:50 Midodrine (Pro-Amatine) 10 mg TID GT 01/28/20 18:00 04/21/20 09:29 02/05/20 17:33 Multivitamins (Multivitamins W/ Minerals 15ml Liquid) 15 ml DAILY GT 01/28/20 09:30 02/27/20 09:29 02/05/20 09:12 Oxcarbazepine (TrileptaL) 300 mg BEDTIME GT 01/28/20 21:00 02/07/20 20:59 02/05/20 20:40 Pantoprazole (Protonix) 40 mg EVERY 12 HOURS IVP 01/31/20 09:30 03/01/20 09:29 9/21/20 20:41 Potassium Chloride (K-Dur) 40 meq TWICE A DAY ORAL 02/02/20 18:00 05/02/20 17:59 02/05/20 17:34 Sucralfate (Carafate) 1 gm FOUR TIMES A DAY ORAL 01/30/20 09:00 04/29/20 08:59 02/05/20 20:40 Thiamine HCl (Vitamin B1) 100 mg DAILY GT 01/28/20 09:30 02/27/20 09:29 02/05/20 09:13 Last 24 Hour Vital Signs Date Time Temp Pulse Resp B/P (MAP) Pulse Ox O2 Delivery O2 Flow Rate FiO2 02/06/20 08:00 Mechanical Ventilator 02/06/20 08:00 97.9 67 20 106/65 (79) 95 02/06/20 08:00 30 02/06/20 04:00 97.7 75 21 101/59 (73) 94 02/06/20 04:00 Mechanical Ventilator 02/06/20 04:00 30 02/06/20 03:26 55 02/06/20 03:02 81 18 30 02/06/20 00:00 Mechanical Ventilator 02/06/20 00:00 97.5 74 32 98/61 (73) 99 02/06/20 00:00 30 02/05/20 23:30 98 02/05/20 23:05 87 16 30 02/05/20 20:00 Mechanical Ventilator 02/05/20 20:00 98.1 76 18 101/59 (73) 100 02/05/20 20:00 72 02/05/20 20:00 30 02/05/20 19:05 78 20 30 02/05/20 16:00 99.1 83 22 117/58 (77) 100 02/05/20 16:00 Mechanical Ventilator 02/05/20 16:00 70 02/05/20 16:00 30 02/05/20 15:29 69 20 30 02/05/20 12:13 99.3 02/05/20 12:00 Mechanical Ventilator 02/05/20 12:00 75 02/05/20 12:00 99.5 74 22 95/48 (64) 100 02/05/20 12:00 30 02/05/20 11:05 66 22 30 02/05/20 09:00 97 02/05/20 08:00 96.8 81 20 93/57 (69) 100 02/05/20 08:00 Mechanical Ventilator 02/05/20 08:00 30 02/05/20 07:42 70 02/05/20 07:41 74 02/05/20 07:20 71 21 30 02/05/20 04:00 98.4 62 18 97/52 (67) 100 02/05/20 04:00 Mechanical Ventilator 02/05/20 04:00 30 02/05/20 03:36 65 02/05/20 03:16 91 22 30 02/05/20 00:00 Mechanical Ventilator 02/05/20 00:00 98.1 80 16 107/52 (70) 100 02/04/20 23:48 82 02/04/20 23:06 84 24 30 02/04/20 21:42 99.5 02/04/20 20:00 100.9 78 18 100/67 (78) 98 02/04/20 20:00 30 02/04/20 20:00 Mechanical Ventilator 02/04/20 19:38 79 02/04/20 19:38 98 24 30 02/04/20 17:42 100.8 02/04/20 17:00 100.8 02/04/20 16:00 85 02/04/20 16:00 101.8 81 18 94/54 (67) 100 02/04/20 16:00 30 02/04/20 16:00 Mechanical Ventilator 02/04/20 15:10 90 21 30 02/04/20 12:00 30 02/04/20 12:00 Mechanical Ventilator 02/04/20 12:00 99.0 77 18 114/71 (85) 100 02/04/20 12:00 102 02/04/20 10:40 90 26 30 02/04/20 09:00 100 Intake and Output 02/05/20 02/06/20 19:00 07:00 Intake Total 1565 ml 1875 ml Output Total 700 ml 800 ml Balance 865 ml 1075 ml Intake Free Water 90 ml 100 ml IV Total 925 ml 1025 ml Tube Feeding 550 ml 550 ml Other 200 ml Stool Total 700 ml 800 ml # Voids 2 3 Labs Test 02/03/20 11:23 02/03/20 17:46 02/04/20 00:44 02/04/20 06:15 POC Whole Blood Glucose 100 MG/DL (74-106) 91 MG/DL (74-106) 101 MG/DL (74-106) 97 MG/DL (74-106) Test 02/04/20 07:00 02/04/20 11:23 02/04/20 17:47 02/04/20 23:07 Sodium Level 144 MMOL/L (136-145) Potassium Level 4.1 MMOL/L (3.5-5.1) Chloride Level 112 MMOL/L (98-107) Carbon Dioxide Level 22 MMOL/L (21-32) Anion Gap 10 mmol/L (5-15) Blood Urea Nitrogen 3 mg/dL (7-18) Creatinine 0.3 MG/DL (0.55-1.30) Estimat Glomerular Filtration Rate > 60 mL/min (>60) Glucose Level 94 MG/DL (74-106) Calcium Level 7.7 MG/DL (8.5-10.1) Phosphorus Level 2.7 MG/DL (2.5-4.9) Magnesium Level 2.0 MG/DL (1.8-2.4) Total Bilirubin 0.2 MG/DL (0.2-1.0) Aspartate Amino Transf (AST/SGOT) 12 U/L (15-37) Alanine Aminotransferase (ALT/SGPT) 13 U/L (12-78) Alkaline Phosphatase 72 U/L (46-116) Total Protein 5.2 G/DL (6.4-8.2) Albumin 1.6 G/DL (3.4-5.0) Globulin 3.6 g/dL Albumin/Globulin Ratio 0.4 (1.0-2.7) POC Whole Blood Glucose 103 MG/DL (74-106) Test 02/05/20 04:02 02/05/20 04:58 02/05/20 11:41 02/05/20 16:14 White Blood Count 9.2 K/UL (4.8-10.8) Red Blood Count 3.04 M/UL (4.20-5.40) Hemoglobin 9.1 G/DL (12.0-16.0) Hematocrit 27.7 % (37.0-47.0) Mean Corpuscular Volume 91 FL (80-99) Mean Corpuscular Hemoglobin 29.8 PG (27.0-31.0) Mean Corpuscular Hemoglobin Concent 32.7 G/DL (32.0-36.0) Red Cell Distribution Width 15.1 % (11.6-14.8) Platelet Count 331 K/UL (150-450) Mean Platelet Volume 6.3 FL (6.5-10.1) Neutrophils (%) (Auto) 64.4 % (45.0-75.0) Lymphocytes (%) (Auto) 20.5 % (20.0-45.0) Monocytes (%) (Auto) 11.1 % (1.0-10.0) Eosinophils (%) (Auto) 2.8 % (0.0-3.0) Basophils (%) (Auto) 1.3 % (0.0-2.0) POC Whole Blood Glucose 100 MG/DL (74-106) Test 02/05/20 23:04 02/06/20 02:35 02/06/20 05:18 POC Whole Blood Glucose 106 MG/DL (74-106) 122 MG/DL (74-106) White Blood Count 11.4 K/UL (4.8-10.8) Red Blood Count 3.03 M/UL (4.20-5.40) Hemoglobin 9.0 G/DL (12.0-16.0) Hematocrit 27.6 % (37.0-47.0) Mean Corpuscular Volume 91 FL (80-99) Mean Corpuscular Hemoglobin 29.7 PG (27.0-31.0) Mean Corpuscular Hemoglobin Concent 32.6 G/DL (32.0-36.0) Red Cell Distribution Width 14.8 % (11.6-14.8) Platelet Count 335 K/UL (150-450) Mean Platelet Volume 5.9 FL (6.5-10.1) Neutrophils (%) (Auto) 68.6 % (45.0-75.0) Lymphocytes (%) (Auto) 18.7 % (20.0-45.0) Monocytes (%) (Auto) 9.5 % (1.0-10.0) Eosinophils (%) (Auto) 2.3 % (0.0-3.0) Basophils (%) (Auto) 0.9 % (0.0-2.0) Sodium Level 139 MMOL/L (136-145) Potassium Level 4.2 MMOL/L (3.5-5.1) Chloride Level 108 MMOL/L (98-107) Carbon Dioxide Level 25 MMOL/L (21-32) Anion Gap 6 mmol/L (5-15) Blood Urea Nitrogen 2 mg/dL (7-18) Creatinine 0.3 MG/DL (0.55-1.30) Estimat Glomerular Filtration Rate > 60 mL/min (>60) Glucose Level 94 MG/DL (74-106) Calcium Level 8.0 MG/DL (8.5-10.1) Phosphorus Level 1.6 MG/DL (2.5-4.9) Magnesium Level 1.6 MG/DL (1.8-2.4) Total Bilirubin 0.2 MG/DL (0.2-1.0) Aspartate Amino Transf (AST/SGOT) 15 U/L (15-37) Alanine Aminotransferase (ALT/SGPT) 9 U/L (12-78) Alkaline Phosphatase 58 U/L (46-116) C-Reactive Protein, Quantitative 2.4 mg/dL (0.00-0.90) Pro-B-Type Natriuretic Peptide 183 pg/mL (0-125) Total Protein 5.2 G/DL (6.4-8.2) Albumin 1.6 G/DL (3.4-5.0) Globulin 3.6 g/dL Albumin/Globulin Ratio 0.4 (1.0-2.7) Height (Feet): 5 Height (Inches): 1.00 Weight (Pounds): 81 Objective Vital Signs General Appearance: ++ cachectic, chronically ill HEENT: normocephalic, atraumatic ++ trach Resp: other -. vent ++ Cardiovascular: regular rate, rhythm, no edema Gastrointestinal: gtube in place, without erythema Rectal: other - Hemoccult positive [place]: back normal, gait/station normal, non-tender Lymphatic: no adenopathy Baltazar Cortes MD Feb 06, 2020 08:53
[2020-02-06] MEDS: Gabapentin 300 MG/6 ML Soln GT SCH ×3 (08:55→18:14)
[2020-02-06] MEDS: levETIRAcetam 500mg/5ml Liquid GT SCH ×2 (08:56→22:24)
[2020-02-06] MEDS: Ascorbic Acid 500mg tab GT SCH (08:56)
[2020-02-06] MEDS: Multivitamins W/Minerals 15 ML UDC GT SCH (08:56)
[2020-02-06] MEDS: Sucralfate 1gm tab ORAL SCH ×4 (08:57→22:22)
[2020-02-06] MEDS: Thiamine 100mg tab GT SCH (08:57)
[2020-02-06] MEDS: Pantoprazole Inj IVP SCH ×2 (08:58→22:22)
--- NOTE | 2020-02-06 09:19 | General Progress Note ---
Subjective ROS Limited/Unobtainable: No Allergies: Coded Allergies: CARBAMAZEPINE (Verified Allergy, Unknown, 12/31/19) LORAZEPAM (Verified Allergy, Unknown, 12/31/19) Objective Last 24 Hour Vital Signs Date Time Temp Pulse Resp B/P (MAP) Pulse Ox O2 Delivery O2 Flow Rate FiO2 02/06/20 08:00 Mechanical Ventilator 02/06/20 08:00 97.9 67 20 106/65 (79) 95 02/06/20 08:00 30 02/06/20 04:00 97.7 75 21 101/59 (73) 94 02/06/20 04:00 Mechanical Ventilator 02/06/20 04:00 30 02/06/20 03:26 55 02/06/20 03:02 81 18 30 02/06/20 00:00 Mechanical Ventilator 02/06/20 00:00 97.5 74 32 98/61 (73) 99 02/06/20 00:00 30 02/05/20 23:30 98 02/05/20 23:05 87 16 30 02/05/20 20:00 Mechanical Ventilator 02/05/20 20:00 98.1 76 18 101/59 (73) 100 02/05/20 20:00 72 02/05/20 20:00 30 02/05/20 19:05 78 20 30 02/05/20 16:00 99.1 83 22 117/58 (77) 100 02/05/20 16:00 Mechanical Ventilator 02/05/20 16:00 70 02/05/20 16:00 30 02/05/20 15:29 69 20 30 02/05/20 12:13 99.3 02/05/20 12:00 Mechanical Ventilator 02/05/20 12:00 75 02/05/20 12:00 99.5 74 22 95/48 (64) 100 02/05/20 12:00 30 02/05/20 11:05 66 22 30 Intake and Output 02/05/20 02/06/20 19:00 07:00 Intake Total 1565 ml 1875 ml Output Total 700 ml 800 ml Balance 865 ml 1075 ml Intake Free Water 90 ml 100 ml IV Total 925 ml 1025 ml Tube Feeding 550 ml 550 ml Other 200 ml Stool Total 700 ml 800 ml # Voids 2 3 Laboratory Tests 02/05/20 11:41: POC Whole Blood Glucose 100 02/05/20 16:14: POC Whole Blood Glucose [Pending] 02/05/20 23:04: POC Whole Blood Glucose 106 02/06/20 02:35: White Blood Count 11.4H, Red Blood Count 3.03L, Hemoglobin 9.0L, Hematocrit 27.6L, Mean Corpuscular Volume 91, Mean Corpuscular Hemoglobin 29.7, Mean Corpuscular Hemoglobin Concent 32.6, Red Cell Distribution Width 14.8, Platelet Count 335, Mean Platelet Volume 5.9L, Neutrophils (%) (Auto) 68.6, Lymphocytes (%) (Auto) 18.7L, Monocytes (%) (Auto) 9.5, Eosinophils (%) (Auto) 2.3, Basophils (%) (Auto) 0.9, Sodium Level 139, Potassium Level 4.2, Chloride Level 108H, Carbon Dioxide Level 25, Anion Gap 6, Blood Urea Nitrogen 2L, Creatinine 0.3L, Estimat Glomerular Filtration Rate > 60, Glucose Level 94, Calcium Level 8.0L, Phosphorus Level 1.6L, Magnesium Level 1.6L, Total Bilirubin 0.2, Aspartate Amino Transf (AST/SGOT) 15, Alanine Aminotransferase (ALT/SGPT) 9L, Alkaline Phosphatase 58, C-Reactive Protein, Quantitative 2.4H, Pro-B-Type Natriuretic Peptide 183H, Total Protein 5.2L, Albumin 1.6L, Globulin 3.6, Albumin/Globulin Ratio 0.4L 02/06/20 05:18: POC Whole Blood Glucose 122H Height (Feet): 5 Height (Inches): 1.00 Weight (Pounds): 81 General Appearance: no apparent distress EENT: normal ENT inspection Neck: supple Cardiovascular: normal rate Respiratory/Chest: decreased breath sounds Abdomen: normal bowel sounds, non tender, soft Extremities: non-tender Assessment/Plan Problem List: (1) G tube feedings ICD Codes: Z93.1 - Gastrostomy status SNOMED: 897352275, 949754360, [id number] (2) GI bleed ICD Codes: K92.2 - Gastrointestinal hemorrhage, unspecified SNOMED: 34127887 (3) Sepsis ICD Codes: A41.9 - Sepsis, unspecified organism SNOMED: 24501055 (4) Pneumonia ICD Codes: J18.9 - Pneumonia, unspecified organism SNOMED: 348423320 Status: stable, other - Patient is now hypotensive before over 46 she will receive 500 cc of normal saline bolus to be repeated blood pressure remained below 90 further management will be decided following the boluses treatment repeat laboratory tests will be done in a.mDominik MCKAY MD Assessment/Plan: s/p EGD gastric ulcer monitor H&H C. Diff positive>> now neg rectal bleed last night and now it has resolved resume GTF prn imodium carafate and ppi will fu Satish Carrillo MD Feb 06, 2020 09:19
--- NOTE | 2020-02-06 09:49 | Pulmonology Progress Note ---
Subjective ROS Limited/Unobtainable: No Allergies: Coded Allergies: CARBAMAZEPINE (Verified Allergy, Unknown, 12/31/19) LORAZEPAM (Verified Allergy, Unknown, 12/31/19) All Systems: reviewed and negative except above Subjective in JULIANA no signs of resp distress on current vent settings BP better , on Midodrine, off Dopamine gtt no fevers l since 02/03 mild leuk this am CXR 02/01- Interval development of retrocardiac airspace opacities which could represent atelectasis versus developing consolidation. CXR 02/04 Bilateral mostly interstitial opacities; suspect largely chronic although there may be an acute component at the left lung base. The latter does appear somewhat improved since the previous exam. SCX + GNR 2 dif species Mg and P low this am Objective Last 24 Hour Vital Signs Date Time Temp Pulse Resp B/P (MAP) Pulse Ox O2 Delivery O2 Flow Rate FiO2 02/06/20 08:00 Mechanical Ventilator 02/06/20 08:00 97.9 67 20 106/65 (79) 95 02/06/20 08:00 30 02/06/20 04:00 97.7 75 21 101/59 (73) 94 02/06/20 04:00 Mechanical Ventilator 02/06/20 04:00 30 02/06/20 03:26 55 02/06/20 03:02 81 18 30 02/06/20 00:00 Mechanical Ventilator 02/06/20 00:00 97.5 74 32 98/61 (73) 99 02/06/20 00:00 30 02/05/20 23:30 98 02/05/20 23:05 87 16 30 02/05/20 20:00 Mechanical Ventilator 02/05/20 20:00 98.1 76 18 101/59 (73) 100 02/05/20 20:00 72 02/05/20 20:00 30 02/05/20 19:05 78 20 30 02/05/20 16:00 99.1 83 22 117/58 (77) 100 02/05/20 16:00 Mechanical Ventilator 02/05/20 16:00 70 02/05/20 16:00 30 02/05/20 15:29 69 20 30 02/05/20 12:13 99.3 02/05/20 12:00 Mechanical Ventilator 02/05/20 12:00 75 02/05/20 12:00 99.5 74 22 95/48 (64) 100 02/05/20 12:00 30 02/05/20 11:05 66 22 30 Intake and Output 02/05/20 02/06/20 19:00 07:00 Intake Total 1565 ml 1875 ml Output Total 700 ml 800 ml Balance 865 ml 1075 ml Intake Free Water 90 ml 100 ml IV Total 925 ml 1025 ml Tube Feeding 550 ml 550 ml Other 200 ml Stool Total 700 ml 800 ml # Voids 2 3 Objective General Appearance: bedridden, pale, chronically ill looking, older than her biological age ; vent dependent female ; on vent SIMV 450-30%-12, PEEP 5 Lines, tubes and drains: trach HEENT: normocephalic, atraumatic Neck: trach - Portex #7, secretions small amount, yellow color, thin consistency Respiratory/Chest: CTAB Cardiovascular/Chest: regular rate, regular rhythm Abdomen: non tender, soft, G tube , rectal tube Genitourinary/Rectal: [place] Extremities: no edema, muscle atrophy Neurologic: abnormal gait, awake, poorly responsive Musculoskeletal: atrophy BLE Skin: multiple tattoos Microbiology Date/Time Source Procedure Growth Status 02/03/20 14:00 Sputum Gram Stain - Final Resulted 02/03/20 14:00 Sputum Culture - Preliminary Gram Negative Bacillus 1 Gram Negative Bacillus 2 Resulted Laboratory Tests 02/05/20 11:41: POC Whole Blood Glucose 100 02/05/20 16:14: POC Whole Blood Glucose [Pending] 02/05/20 23:04: POC Whole Blood Glucose 106 02/06/20 02:35: White Blood Count 11.4H, Red Blood Count 3.03L, Hemoglobin 9.0L, Hematocrit 27.6L, Mean Corpuscular Volume 91, Mean Corpuscular Hemoglobin 29.7, Mean Corpuscular Hemoglobin Concent 32.6, Red Cell Distribution Width 14.8, Platelet Count 335, Mean Platelet Volume 5.9L, Neutrophils (%) (Auto) 68.6, Lymphocytes (%) (Auto) 18.7L, Monocytes (%) (Auto) 9.5, Eosinophils (%) (Auto) 2.3, Basophils (%) (Auto) 0.9, Sodium Level 139, Potassium Level 4.2, Chloride Level 108H, Carbon Dioxide Level 25, Anion Gap 6, Blood Urea Nitrogen 2L, Creatinine 0.3L, Estimat Glomerular Filtration Rate > 60, Glucose Level 94, Calcium Level 8.0L, Phosphorus Level 1.6L, Magnesium Level 1.6L, Total Bilirubin 0.2, Aspartate Amino Transf (AST/SGOT) 15, Alanine Aminotransferase (ALT/SGPT) 9L, Alkaline Phosphatase 58, C-Reactive Protein, Quantitative 2.4H, Pro-B-Type Natriuretic Peptide 183H, Total Protein 5.2L, Albumin 1.6L, Globulin 3.6, Albumin/Globulin Ratio 0.4L 02/06/20 05:18: POC Whole Blood Glucose 122H Current Medications Medications (Trade) Dose Ordered Sig/Villa Route PRN Reason Start Time Stop Time Status Last Admin Dose Admin Acetaminophen (Tylenol) 650 mg Q4H PRN GT Temp >100.5 02/01/20 20:30 03/02/20 20:29 02/05/20 11:43 Ascorbic Acid (Vitamin C) 500 mg DAILY GT 01/28/20 09:30 02/27/20 09:29 02/06/20 08:56 Dextrose/Sodium Chloride 1,000 ml @ 75 mls/hr [id number] IV 01/29/20 13:00 02/27/20 12:59 02/06/20 03:30 Famotidine (Pepcid I.v.) 20 mg Q12HR IVP 01/29/20 21:00 02/28/20 20:59 02/06/20 08:56 Gabapentin (Neurontin) 900 mg TID GT 01/28/20 09:30 02/19/20 09:29 02/06/20 08:55 Gentamicin Protocol (Gentamicin pharmacy to dose) 1 ea DAILY PRN MISC Per rx protocol 02/02/20 17:00 03/03/20 16:59 Gentamicin Sulfate 200 mg/ Sodium Chloride 115 ml @ 115 mls/hr Q24H IVPB 02/02/20 18:00 02/09/20 17:59 02/05/20 17:33 Haloperidol Lactate (Haldol) 5 mg Q6H PRN IM Agitation 01/28/20 09:30 02/15/20 09:29 Levetiracetam (Keppra) 1,500 mg Q12HR GT 01/28/20 09:30 02/07/20 09:29 02/06/20 08:56 Levothyroxine Sodium (Synthroid) 50 mcg ACBREAKFAST GT 01/29/20 06:30 02/10/20 06:29 02/06/20 05:50 Loperamide HCl (Imodium) 2 mg Q4H PRN ORAL Diarrhea 02/05/20 10:00 03/06/20 09:59 02/06/20 05:50 Magnesium Sulfate 100 ml @ 100 mls/hr Q1H IVPB 02/06/20 10:30 02/06/20 14:29 Midodrine (Pro-Amatine) 10 mg TID GT 01/28/20 18:00 04/21/20 09:29 02/06/20 08:57 Multivitamins (Multivitamins W/ Minerals 15ml Liquid) 15 ml DAILY GT 01/28/20 09:30 02/27/20 09:29 02/06/20 08:56 Oxcarbazepine (TrileptaL) 300 mg BEDTIME GT 01/28/20 21:00 02/07/20 20:59 02/05/20 20:40 Pantoprazole (Protonix) 40 mg EVERY 12 HOURS IVP 01/31/20 09:30 03/01/20 09:29 02/06/20 08:58 Potassium Phosphate 250 ml @ 62.5 mls/hr Q4H IVPB 02/06/20 10:30 02/06/20 18:29 Potassium Chloride (K-Dur) 40 meq TWICE A DAY ORAL 02/02/20 18:00 05/02/20 17:59 02/05/20 17:34 Sucralfate (Carafate) 1 gm FOUR TIMES A DAY ORAL 01/30/20 09:00 04/29/20 08:59 02/06/20 08:57 Thiamine HCl (Vitamin B1) 100 mg DAILY GT 01/28/20 09:30 02/27/20 09:29 02/06/20 08:57 Assessment/Plan Assessment/Plan ASSESSMENT VDRF/trach status Sepsis Possible pneumonia UTI recurrent GI bleeding severe C dif colitis Anemia secondary to GI bleeding Aspiration risk Dysphagia, feeding by G-tube Encephalopathy Acute kidney injury likely secondary to dehydration Recurrent bradycardia persistent Hypotension Electrolyte imbalance Severe protein calorie malnutrition Hx of hypertension History of CVA Seizure disorder with witnessed seizure episode 01/07 Psychiatric disorder Presumed scabies, s/p Rx Thrombocytopenia-transient- resolved PLAN OF CARE JULIANA off Dopamine gtt, BP better with Midodrine only on IVF, vent support, pulm toilet ABG stable on current settings on SIMV mode 450-30-12 PEEP5 , no signs of resp distress on these settings keep settings as is and titrate as needed now tachypneic intermittently CXR 01/27 no acute disease pulm toilet via HHN CT chest 01/28 - with tree-in-bud nodular opacities in the medial left base and lingula with left bronchial bubbly material suggesting infectious or inflammatory bronchiolitis, likely due to aspiration. Small amount of similar foci seen in the right posterior lower lobe. Mild bronchiectasis and reticulation in the lingula, medial left base, and superior left upper lobe could also be due to chronic infection. CXR 02/01 -Interval development of retrocardiac airspace opacities which could represent atelectasis versus developing consolidation. probably ATX , given no fevers, resolved leukocytosis, no resp distress on current settings CXR 02/04 Bilateral mostly interstitial opacities; suspect largely chronic although there may be an acute component at the left lung base. The latter does appear somewhat improved since the previous exam. mild leuk this am, no fevers since 02/03 , pancx-per ID CXR 01/13- no acute findings KUB 01/13- no acute findings UA + yeast , 01/12 UCX +yeast, started on Fluconazole 01/14 as per ID -completed BCX 01/12 NGTD BCX 01/26 and 01/27 NGTD Vanco po was prior dc and switched to Dificid , also on Flagyl per GI -till 01/28 , both extended till , completed inflammatory markers : ESR-42, CRP- wnl WBC smear NGT C dif a/b 01/30 NGT less output from rectal tube UCX 01/27 + Klebs CR- started on Gent per ID recs given prior leukocytosis and fevers SCX 02/02 + GNR, fup with final ID abx as per ID recs CT C/ A/P noted ( see results of CT chest above), CT A/P with findings most compatible with ileus and probable infectious or inflammatory enteritis or enterocolitis. off cefepime rapid COVID 19 NGT in ED aspiration precautions Venous Duplex BLE -negative, get SCD ( unable to give a/c given anemia) closely monitor hemodynamic status heme and GI follows s/p prior EGD 01/01 -> gastric ulcer across G tube site , no active bleeding s/p EGD 01/30 -> gastric ulceration without visible bleeding Protonix IV bid ( changed from Protonix gtt), Carafate GT feeding resumed as per GI , s/p blood tx 01/30 stool OB positive , another pending transfuse to keep Hgb > 7. HH at baseline trend LFT-> trended down, hep panel NGT hx of cirrhosis- per GI management monitor renal parameters, lytes, avoid nephrotoxic IVF BUN trending down, creat stable, likely prerenal due to dehydration replace e/lytes as per nephro recs , P and Mg replaced this am as per nephro monitor volumes seizure precautions, antiepileptic optimized as per neuro recs ammonia 49, fup with further neuro recs EEG - grossly abnormal; mild to mod encephalopathy, single ictal episode CT head no acute IC pathology BP management with current regimen [facility] meds supportive care dietary recs s/p 12/31 Rx for presumed scabies with permethrin and Ivermectin, repeated Ivermectin 01/08 case discussed and evaluated by supervising physician Ivanna Mora NP Feb 06, 2020 09:48
[2020-02-06] MEDS: Potassium Phosphate 15mm/250ml 250 ML IVPB SCH ×2 (10:30→14:34)
[2020-02-06 12:00] VITALS: BP 99/49
--- NOTE | 2020-02-06 13:47 | Infectious Diseases Prog Note ---
Assessment/Plan 39yo F with: Severe Sepsis Fever, recurrent; improving Leukocytosis; recurrent; mild UTI -02/04 CXR: Bilateral mostly interstitial opacities; suspect largely chronic althoughthere may be an acute component at the left lung base. The latter does appear somewhat improved since the previous exam. -02/02 sp cx GNRn #1, #2 -02/01 CXR: Interval development of retrocardiac airspace opacities which could represent atelectasis versus developing consolidation. u/a wbc 5-10, nit neg, leuk +2; -01/28 CXR: Subtle reticular nodular opacities in the left apex which may be related to scarring versus acute small airway disease/bronchitis CT c/abd/p wo: Study substantially limited due to lack of IV contrast. Findings most compatible with ileus and probable infectious or inflammatory enteritis or enterocolitis. Large low-attenuation pelvic fluid of uncertain sig nificance, potentially reactive.Appendix not identified. Percutaneous gastrostomy tube adequately positioned in the stomach. Rectal tube. Urinary bladder wall thickening could be incidental, due to high outlet pressures, or could represent cystitis.Cholecystectomy. -01/27 u/a no pyuria, nit +, leuk +3; ucx >100k CRE K, pna (S Gentamycin), P . miriabilis, MDR P, fluorensces (I Gentamycin) CXR: no acute disease Bc xNTD -01/26 Bcx Neg -01/13 CXR: no acute disease -01/12 u/a wbc tnct, nit neg, latrell +3; ucx >100k C. tropicalis Bcx NTD Severe Cdiff colitis -01/30 Cdif toxin a/b neg -01/06 Cdif toxin + 01/27 KUB:Severely dilated small bowel loop in the central abdomen could reflect obstruction. Diffusely fluid distended colon. -01/13 KUB: no acute findings Recurrent GIB 01/06 u/aneg 12/30 BCx 1/2 +CONS, likely contaminant 12/30 UA neg, COVID rapid Ag neg 12/30 CXR 1. Density overlying the bilateral lung apices. May represent pleural thickening, multifocal airspace opacities, versus summation artifact. 01/01 BCx Neg 01/02 BCx Neg Acute blood loss anemia Possible pna on CXR, sp rx Seizure episode -8/27 CT head: Third and lateral ventriculomegaly. Associated enlargement of the extra axial CSF spaces indicates that this is probably due to central volume loss, but the possibility of hydrocephalus should also be considered. At the degree of volume loss is considerably out of proportion to patient's age. Periventricular deep white matter low-attenuation. Probably on the basis of microvascular ischemic change but given patient's age the possibility of demyeli nating disease should be considered as well. 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 [facility] will continue to follow. Subjective Allergies: Coded Allergies: CARBAMAZEPINE (Verified Allergy, Unknown, 12/31/19) LORAZEPAM (Verified Allergy, Unknown, 12/31/19) afebrile >36hrs Fio2 30% mild leukocytosis Objective Last 24 Hour Vital Signs Date Time Temp Pulse Resp B/P (MAP) Pulse Ox O2 Delivery O2 Flow Rate FiO2 02/06/20 12:00 54 02/06/20 11:19 84 21 30 02/06/20 08:00 Mechanical Ventilator 02/06/20 08:00 64 02/06/20 08:00 97.9 67 20 106/65 (79) 95 02/06/20 08:00 30 02/06/20 07:36 87 18 30 02/06/20 04:00 97.7 75 21 101/59 (73) 94 02/06/20 04:00 Mechanical Ventilator 02/06/20 04:00 30 02/06/20 03:26 55 02/06/20 03:02 81 18 30 02/06/20 00:00 Mechanical Ventilator 02/06/20 00:00 97.5 74 32 98/61 (73) 99 02/06/20 00:00 30 02/05/20 23:30 98 02/05/20 23:05 87 16 30 02/05/20 20:00 Mechanical Ventilator 02/05/20 20:00 98.1 76 18 101/59 (73) 100 02/05/20 20:00 72 02/05/20 20:00 30 02/05/20 19:05 78 20 30 02/05/20 16:00 99.1 83 22 117/58 (77) 100 02/05/20 16:00 Mechanical Ventilator 02/05/20 16:00 70 02/05/20 16:00 30 02/05/20 15:29 69 20 30 Height (Feet): 5 Height (Inches): 1.00 Weight (Pounds): 81 General Appearance: no apparent distress Neck: supple Cardiovascular: normal rate Respiratory/Chest: decreased breath sounds Abdomen: hypoactive bowel sounds Extremities: non-tender Microbiology Date/Time Source Procedure Growth Status 02/03/20 14:00 Sputum Gram Stain - Final Resulted 02/03/20 14:00 Sputum Culture - Preliminary Gram Negative Bacillus 1 Gram Negative Bacillus 2 Resulted Laboratory Tests Test 02/05/20 16:14 02/05/20 23:04 02/06/20 02:35 02/06/20 05:18 POC Whole Blood Glucose Pending 106 MG/DL (74-106) 122 MG/DL (74-106) H White Blood Count 11.4 K/UL (4.8-10.8) H Red Blood Count 3.03 M/UL (4.20-5.40) L Hemoglobin 9.0 G/DL (12.0-16.0) L Hematocrit 27.6 % (37.0-47.0) L Mean Corpuscular Volume 91 FL (80-99) Mean Corpuscular Hemoglobin 29.7 PG (27.0-31.0) Mean Corpuscular Hemoglobin Concent 32.6 G/DL (32.0-36.0) Red Cell Distribution Width 14.8 % (11.6-14.8) Platelet Count 335 K/UL (150-450) Mean Platelet Volume 5.9 FL (6.5-10.1) L Neutrophils (%) (Auto) 68.6 % (45.0-75.0) Lymphocytes (%) (Auto) 18.7 % (20.0-45.0) L Monocytes (%) (Auto) 9.5 % (1.0-10.0) Eosinophils (%) (Auto) 2.3 % (0.0-3.0) Basophils (%) (Auto) 0.9 % (0.0-2.0) Sodium Level 139 MMOL/L (136-145) Potassium Level 4.2 MMOL/L (3.5-5.1) Chloride Level 108 MMOL/L (98-107) H Carbon Dioxide Level 25 MMOL/L (21-32) Anion Gap 6 mmol/L (5-15) Blood Urea Nitrogen 2 mg/dL (7-18) L Creatinine 0.3 MG/DL (0.55-1.30) L Estimat Glomerular Filtration Rate > 60 mL/min (>60) Glucose Level 94 MG/DL (74-106) Calcium Level 8.0 MG/DL (8.5-10.1) L Phosphorus Level 1.6 MG/DL (2.5-4.9) L Magnesium Level 1.6 MG/DL (1.8-2.4) L Total Bilirubin 0.2 MG/DL (0.2-1.0) Aspartate Amino Transf (AST/SGOT) 15 U/L (15-37) Alanine Aminotransferase (ALT/SGPT) 9 U/L (12-78) L Alkaline Phosphatase 58 U/L (46-116) C-Reactive Protein, Quantitative 2.4 mg/dL (0.00-0.90) H Pro-B-Type Natriuretic Peptide 183 pg/mL (0-125) H Total Protein 5.2 G/DL (6.4-8.2) L Albumin 1.6 G/DL (3.4-5.0) L Globulin 3.6 g/dL Albumin/Globulin Ratio 0.4 (1.0-2.7) L Current Medications Medications (Trade) Dose Ordered Sig/Villa Route PRN Reason Start Time Stop Time Status Last Admin Dose Admin Acetaminophen (Tylenol) 650 mg Q4H PRN GT Temp >100.5 02/01/20 20:30 10/17/20 20:29 02/05/20 11:43 Ascorbic Acid (Vitamin C) 500 mg DAILY GT 01/28/20 09:30 02/27/20 09:29 02/06/20 08:56 Dextrose/Sodium Chloride 1,000 ml @ 75 mls/hr [id number] IV 01/29/20 13:00 02/27/20 12:59 02/06/20 03:30 Famotidine (Pepcid I.v.) 20 mg Q12HR IVP 01/29/20 21:00 02/28/20 20:59 02/06/20 08:56 Gabapentin (Neurontin) 900 mg TID GT 01/28/20 09:30 02/19/20 09:29 02/06/20 08:55 Gentamicin Protocol (Gentamicin pharmacy to dose) 1 ea DAILY PRN MISC Per rx protocol 02/02/20 17:00 03/03/20 16:59 Gentamicin Sulfate 200 mg/ Sodium Chloride 115 ml @ 115 mls/hr Q24H IVPB 02/02/20 18:00 02/09/20 17:59 02/05/20 17:33 Haloperidol Lactate (Haldol) 5 mg Q6H PRN IM Agitation 01/28/20 09:30 02/15/20 09:29 Levetiracetam (Keppra) 1,500 mg Q12HR GT 01/28/20 09:30 02/07/20 09:29 02/06/20 08:56 Levothyroxine Sodium (Synthroid) 50 mcg ACBREAKFAST GT 01/29/20 06:30 02/10/20 06:29 02/06/20 05:50 Loperamide HCl (Imodium) 2 mg Q4H PRN ORAL Diarrhea 02/05/20 10:00 03/06/20 09:59 02/06/20 05:50 Magnesium Sulfate 100 ml @ 100 mls/hr Q1H IVPB 02/06/20 10:30 02/06/20 14:29 02/06/20 12:30 Midodrine (Pro-Amatine) 10 mg TID GT 01/28/20 18:00 04/21/20 09:29 02/06/20 08:57 Multivitamins (Multivitamins W/ Minerals 15ml Liquid) 15 ml DAILY GT 01/28/20 09:30 02/27/20 09:29 02/06/20 08:56 Oxcarbazepine (TrileptaL) 300 mg BEDTIME GT 01/28/20 21:00 02/07/20 20:59 02/05/20 20:40 Pantoprazole (Protonix) 40 mg EVERY 12 HOURS IVP 01/31/20 09:30 03/01/20 09:29 02/06/20 08:58 Potassium Phosphate 250 ml @ 62.5 mls/hr Q4H IVPB 02/06/20 10:30 02/06/20 18:29 02/06/20 10:30 Potassium Chloride (K-Dur) 40 meq TWICE A DAY ORAL 02/02/20 18:00 05/02/20 17:59 02/05/20 17:34 Sucralfate (Carafate) 1 gm FOUR TIMES A DAY ORAL 01/30/20 09:00 04/29/20 08:59 02/06/20 08:57 Thiamine HCl (Vitamin B1) 100 mg DAILY GT 01/28/20 09:30 02/27/20 09:29 02/06/20 08:57 Char Morel M.D. Feb 06, 2020 13:47
--- NOTE | 2020-02-06 13:56 | Surgery Progress Note ---
Surgery Progress Note Subjective Additional Comments no acute events labs noted exam stable comfortable Objective Last 24 Hour Vital Signs Date Time Temp Pulse Resp B/P (MAP) Pulse Ox O2 Delivery O2 Flow Rate FiO2 02/06/20 12:00 54 02/06/20 11:19 84 21 30 02/06/20 08:00 Mechanical Ventilator 02/06/20 08:00 64 02/06/20 08:00 97.9 67 20 106/65 (79) 95 02/06/20 08:00 30 02/06/20 07:36 87 18 30 02/06/20 04:00 97.7 75 21 101/59 (73) 94 02/06/20 04:00 Mechanical Ventilator 02/06/20 04:00 30 02/06/20 03:26 55 02/06/20 03:02 81 18 30 02/06/20 00:00 Mechanical Ventilator 02/06/20 00:00 97.5 74 32 98/61 (73) 99 02/06/20 00:00 30 02/05/20 23:30 98 02/05/20 23:05 87 16 30 02/05/20 20:00 Mechanical Ventilator 02/05/20 20:00 98.1 76 18 101/59 (73) 100 02/05/20 20:00 72 02/05/20 20:00 30 02/05/20 19:05 78 20 30 02/05/20 16:00 99.1 83 22 117/58 (77) 100 02/05/20 16:00 Mechanical Ventilator 02/05/20 16:00 70 02/05/20 16:00 30 02/05/20 15:29 69 20 30 I&O Intake and Output 02/05/20 02/06/20 19:00 07:00 Intake Total 1565 ml 1875 ml Output Total 700 ml 800 ml Balance 865 ml 1075 ml Intake Free Water 90 ml 100 ml IV Total 925 ml 1025 ml Tube Feeding 550 ml 550 ml Other 200 ml Stool Total 700 ml 800 ml # Voids 2 3 Dressing: saturated Cardiovascular: RSR Respiratory: decreased breath sounds Abdomen: soft, non-tender, present bowel sounds Extremities: no cyanosis Laboratory Tests Test 02/05/20 16:14 02/05/20 23:04 02/06/20 02:35 02/06/20 05:18 POC Whole Blood Glucose Pending 106 MG/DL (74-106) 122 MG/DL (74-106) H White Blood Count 11.4 K/UL (4.8-10.8) H Red Blood Count 3.03 M/UL (4.20-5.40) L Hemoglobin 9.0 G/DL (12.0-16.0) L Hematocrit 27.6 % (37.0-47.0) L Mean Corpuscular Volume 91 FL (80-99) Mean Corpuscular Hemoglobin 29.7 PG (27.0-31.0) Mean Corpuscular Hemoglobin Concent 32.6 G/DL (32.0-36.0) Red Cell Distribution Width 14.8 % (11.6-14.8) Platelet Count 335 K/UL (150-450) Mean Platelet Volume 5.9 FL (6.5-10.1) L Neutrophils (%) (Auto) 68.6 % (45.0-75.0) Lymphocytes (%) (Auto) 18.7 % (20.0-45.0) L Monocytes (%) (Auto) 9.5 % (1.0-10.0) Eosinophils (%) (Auto) 2.3 % (0.0-3.0) Basophils (%) (Auto) 0.9 % (0.0-2.0) Sodium Level 139 MMOL/L (136-145) Potassium Level 4.2 MMOL/L (3.5-5.1) Chloride Level 108 MMOL/L (98-107) H Carbon Dioxide Level 25 MMOL/L (21-32) Anion Gap 6 mmol/L (5-15) Blood Urea Nitrogen 2 mg/dL (7-18) L Creatinine 0.3 MG/DL (0.55-1.30) L Estimat Glomerular Filtration Rate > 60 mL/min (>60) Glucose Level 94 MG/DL (74-106) Calcium Level 8.0 MG/DL (8.5-10.1) L Phosphorus Level 1.6 MG/DL (2.5-4.9) L Magnesium Level 1.6 MG/DL (1.8-2.4) L Total Bilirubin 0.2 MG/DL (0.2-1.0) Aspartate Amino Transf (AST/SGOT) 15 U/L (15-37) Alanine Aminotransferase (ALT/SGPT) 9 U/L (12-78) L Alkaline Phosphatase 58 U/L (46-116) C-Reactive Protein, Quantitative 2.4 mg/dL (0.00-0.90) H Pro-B-Type Natriuretic Peptide 183 pg/mL (0-125) H Total Protein 5.2 G/DL (6.4-8.2) L Albumin 1.6 G/DL (3.4-5.0) L Globulin 3.6 g/dL Albumin/Globulin Ratio 0.4 (1.0-2.7) L Plan Problems: (1) Pneumonia (2) Sepsis Assessment & Plan: leukocytosis anemia lactic acidosis agree with GI recommend EGD planned for 12/31 hold feeding for now trend h/h monitor for bleeding no acute hemorrhage will be available in event needs exploration for hemostasis prbc as per heme thank you will follow with recs cont abx worsening wbc wbc trending down comfortable appearing no n/v hypotensive in ICU again worse pending CT results - noted PICC ordered improving wbc improved labs and micro trending labs improved wbc resolved prognosis guarded Pt presented on admission in emaciated state. Pt has tracheostomy and GT. NO skin concerns noted to skin under collar of trach. NO erythema or evidence of skin erosion at GT site. Pt noted to have scaly pimple-like rash with webbing noted to R and L axillae, undersides of both breasts, Bilat groin and lower back. Tracking and webbing noted to hands and feet. Pt restless and scratching at skin. Non-Blanching erythema without induration or fluctuance noted to R and L hips and trochanteric areas.Non-blanching erythema noted along spine. Non-Blanching erythema without induration noted to Sacrum. Non-Blanching erythema noted to R and L Malleoli and both heels. Tx.Plan: Please apply Cavilon Skin Barrier to each bony Prominences at risks for Skin Breakdown. Cover each area with Optifoam drsgs. Change every 7 days and prn. Apply Moisture Barrier Paste to Sacrum. Cover with Optifoam drsg. Change every 3 days and prn. Reposition at least every 2hours or as tolerated. Off-load heels with pillow. APM/EMELI Mattress overlay. improving cont current care plan There is marked enlargement of the third and lateral ventricles and extra axial CSF spaces, in particular the former. There is considerable periventricular deep white matter low-attenuation. Otherwise normal mobley-white differentiation. No acute hemorrhage or edema. No mass effect nor midline shift. Visualized orbits and sinuses are unremarkable. The calvarium is intact Impression: Third and lateral ventriculomegaly. Associated enlargement of the extra axial CSF spaces indicates that this is probably due to central volume loss, but the possibility of hydrocephalus should also be considered. At the degree of volume loss is considerably out of proportion to patient's age. Correlate with clinical h istory Periventricular deep white matter low-attenuation. Probably on the basis of microvascular ischemic change but given patient's age the possibility of demyelinating disease should be considered as well. Negative for acute intracranial bleed or mass effect ABDOMEN: Liver: Unremarkable. Gallbladder and bile ducts: Cholecystectomy. No ductal dilation. Pancreas: Unremarkable. No ductal dilation. Spleen: Unremarkable. No splenomegaly. Adrenals: Unremarkable. No mass. Kidneys and ureters: Unremarkable. No obstructing stones. No hydronephrosis. Stomach and bowel: Operative bowel findings. Diffuse small bowel wall thickening with areas of distention and fluid-filled colonic loops. No clear focal transition point to suggest small bowel obstruction. PELVIS: Appendix: Appendix not identified. Bladder: Urinary bladder wall thickening could be incidental, due to high outlet pressures, or could represent cystitis. No stones. Reproductive: Unremarkable as visualized. ABDOMEN and PELVIS: Intraperitoneal space: Large low-attenuation pelvic fluid of uncertain significance, potentially reactive. No free air. Bones/joints: No acute fracture. No dislocation. Soft tissues: Bilateral buttock injection granulomas. Vasculature: Unremarkable. No abdominal aortic aneurysm. Lymph nodes: Unremarkable. No enlarged lymph nodes. Tubes, lines and devices: Percutaneous gastrostomy tube adequately positioned in the stomach. Rectal tube. Other findings: No perforation seen. IMPRESSION: 1. Study substantially limited due to lack of IV contrast. 2. Findings most compatible with ileus and probable infectious or inflammatory enteritis or enterocolitis. 3. Large low-attenuation pelvic fluid of uncertain significance, potentially reactive. 4. Appendix not identified. 5. Percutaneous gastrostomy tube adequately positioned in the stomach. Rectal tube. 6. Urinary bladder wall thickening could be incidental, due to high outlet pressures, or could represent cystitis. 7. Cholecystectomy. (3) GI bleed (4) G tube feedings Assessment & Plan: DAILY ESTIMATED NEEDS: Needs based on Underweight, critical care 37.3kg 30-40 kcals/kg 5965-2925 total kcals 1.25-2 g protein/kg 47-75 g total protein 25-35 mL/kg 933-1306 total fluid mLs NUTRITION DIAGNOSIS: Increased kcal and pro needs r/t underweight status as evidenced by BMI 14.1, pt is 68% of ideal body weight w/ generalized severe wasting, trach and peg dep. CURRENT TF:Vital AF 1.2 @55 x20 hrs ENTERAL NUTRITION RECOMMENDATIONS: Vital AF 1.2 @ 55ml/hr x20 hrs to provide 1100ml 1320kcal 83g prot, 892ml free water - Rec to continue elemental TF formula while stool C-diff positive, +LBM - HOLD 1HR BEFORE AND AFTER SYNTHROID MEDS - Flush per MD. HOB over 30 degrees ADDITIONAL RECOMMENDATIONS: 1) Per SNF: 5'4" and 81# Maintain calibrated bed scale wts w/ added P200 mattress 2) Lytes daily madhav w/ loose stools, replete as needed 3) Skin integrity: Continue BRIAN VIA GT BID + Vit C 4) Accuchecks for Hypoglycemia 5) Add probiotics for stool C-diff+ . George [place] Feb 06, 2020 13:56
[2020-02-06 16:00] VITALS: BP 122/72
--- NOTE | 2020-02-06 16:46 | Nephrology Progress Note ---
Assessment/Plan Problem List: (1) RICHARD (acute kidney injury) (2) Dehydration (3) Anemia (4) GI bleed (5) Malnutrition (6) Seizure disorder (7) Electrolyte imbalance Assessment Renal failure, in the form of prerenal azotemia, most likely secondary to GI bleed GI bleed, leading to severe anemia Sepsis, pneumonia Chronic tracheostomy, ventilator dependent History of CVA History of seizure disorder History of psychiatric disorder Severe malnutrition Electrolyte abnormalities Plan February 05: Phosphorus and magnesium supplement given. Stable from renal standpoint of view. Remains full code February 04: No chemistry panel done today. Remains stable from renal standpoint of view. Continue to monitor renal parameters. February 03: Labs reviewed. Renal parameters stable. Continue her consultants. February 02: Lab reviewed. Low phosphorus low magnesium corrections ordered. Continue to monitor electrolytes and renal parameters. February 01: Lab reviewed. Low phosphorus and low magnesium replaced. Low potassium replaced. Continue to monitor electrolytes. Continue per consultants. January 31: Lab reviewed. Hemoglobin higher. Renal parameters stable. Potassium and phosphorus supplement given. January 30: Labs reviewed. Low mag low phosphorus and low potassium replaced. White blood cells 16,000 today. Remains full code. Continue to monitor hemoglobin and hematocrit and electrolytes. January 29: Labs reviewed. Magnesium, potassium, phosphorus supplement given. White blood cells down to 22,000. Remains full code. Continue per consultants. RN reports rectal bleed. Hemoglobin drifting down. Defer management to data operations manager who is already on the case. January 28: Status quo. Electrolyte abnormalities noted. Mag Phos and potassium supplement IV given. Renal parameters stable. Continue per consultants. Leukocytosis persists. January 27: Significant rise in white blood cell counts. Hypotensive. Now in ICU. Will give albumin bolus. Continue to monitor renal parameters. Continue per ID advice. January 26: Continue to monitor renal parameters. Patient remains on ventilator. Patient is full code. Continue per consultants. January 25: Status quo. Labs reviewed. Continue per consultants. January 24: Status unchanged. Labs reviewed. Remains stable from renal standpoint of view. January 23: Back in [place]. Stable from renal standpoint of view. Continue per consultants. January 22: Patient in ICU now. Vital signs and heart rate and blood pressure appears to be stable. Patient had an episode of bradycardia but it was resolv ed. TSH level today is very low will cut down on Synthroid dose. January 21: Today's labs are reviewed. Stable renal parameters. Continue per consultants. January 20: Labs reviewed. Renal parameters stable. January 19: Labs reviewed. Stable from renal standpoint. January 18: No labs done today. Continue per consultants. Medications reviewed. January 17: Late note entry due to system problem at the [facility] [place] today.Chemistry panel reviewed. Stable from renal standpoint of view. Continue per current management. January 16: No can panel today. Check lab tomorrow. Remains stable from renal standpoint of view. January 15: Lab reviewed. Renal parameters stable. January 14: Lab reviewed. Renal parameters stable. January 13: Labs reviewed. Stable from renal standpoint of view. January 12: Labs reviewed. Stable from renal standpoint of view January 11: No labs drawn today stable from renal standpoint of view January 10: Labs reviewed. Potassium supplement given. Continue per erp consultant s. January 09: Lab reviewed. Potassium supplement given. IV fluid discontinued. January 08: Lab reviewed. Renal parameters stable. Continue per consultants. January 07: Lab reviewed. Renal parameters stable. Continue per consultants. January 06: Lab reviewed. Stable from renal standpoint of view. January 05: Labs reviewed. Stable from renal standpoint of view. Continue per consultants. January 04: No labs drawn today. Will check labs tomorrow. Continue per consultants. January 03: Lab reviewed. Renal parameters stable. IV fluid discontinued. High LFTs declining. Continue same. January 02: Lab reviewed. Renal parameters stable. Continue per PMD and consultants. LFTs remain elevated. Continue to monitor. Continue slow hydration Discontinue blood pressure medications as her blood pressure is low Discontinue diuretics Monitor renal parameters Transfusion as needed GI evaluation Correct electrolyte abnormalities Check B12 level, folate, and thyroid function tests: Results noted Subjective ROS Limited/Unobtainable: No Constitutional: Reports: malaise Objective Objective Last 24 Hour Vital Signs Date Time Temp Pulse Resp B/P (MAP) Pulse Ox O2 Delivery O2 Flow Rate FiO2 02/06/20 15:26 30 02/06/20 15:25 Mechanical Ventilator 02/06/20 14:56 59 21 30 02/06/20 12:00 30 02/06/20 12:00 54 02/06/20 12:00 97.9 55 16 99/49 (66) 96 02/06/20 12:00 Mechanical Ventilator 02/06/20 11:19 84 21 30 02/06/20 08:00 Mechanical Ventilator 02/06/20 08:00 64 02/06/20 08:00 97.9 67 20 106/65 (79) 95 02/06/20 08:00 30 02/06/20 07:36 87 18 30 02/06/20 04:00 97.7 75 21 101/59 (73) 94 02/06/20 04:00 Mechanical Ventilator 02/06/20 04:00 30 02/06/20 03:26 55 02/06/20 03:02 81 18 30 02/06/20 00:00 Mechanical Ventilator 02/06/20 00:00 97.5 74 32 98/61 (73) 99 02/06/20 00:00 30 02/05/20 23:30 98 02/05/20 23:05 87 16 30 02/05/20 20:00 Mechanical Ventilator 02/05/20 20:00 98.1 76 18 101/59 (73) 100 02/05/20 20:00 72 02/05/20 20:00 30 02/05/20 19:05 78 20 30 Intake and Output 02/05/20 02/06/20 19:00 07:00 Intake Total 1565 ml 1875 ml Output Total 700 ml 800 ml Balance 865 ml 1075 ml Intake Free Water 90 ml 100 ml IV Total 925 ml 1025 ml Tube Feeding 550 ml 550 ml Other 200 ml Stool Total 700 ml 800 ml # Voids 2 3 Laboratory Tests 02/05/20 23:04: POC Whole Blood Glucose 106 02/06/20 02:35: White Blood Count 11.4H, Red Blood Count 3.03L, Hemoglobin 9.0L, Hematocrit 27.6L, Mean Corpuscular Volume 91, Mean Corpuscular Hemoglobin 29.7, Mean Corpuscular Hemoglobin Concent 32.6, Red Cell Distribution Width 14.8, Platelet Count 335, Mean Platelet Volume 5.9L, Neutrophils (%) (Auto) 68.6, Lymphocytes (%) (Auto) 18.7L, Monocytes (%) (Auto) 9.5, Eosinophils (%) (Auto) 2.3, Basophils (%) (Auto) 0.9, Sodium Level 139, Potassium Level 4.2, Chloride Level 108H, Carbon Dioxide Level 25, Anion Gap 6, Blood Urea Nitrogen 2L, Creatinine 0.3L, Estimat Glomerular Filtration Rate > 60, Glucose Level 94, Calcium Level 8.0L, Phosphorus Level 1.6L, Magnesium Level 1.6L, Total Bilirubin 0.2, Aspartate Amino Transf (AST/SGOT) 15, Alanine Aminotransferase (ALT/SGPT) 9L, Alkaline Phosphatase 58, C-Reactive Protein, Quantitative 2.4H, Pro-B-Type Natriuretic Peptide 183H, Total Protein 5.2L, Albumin 1.6L, Globulin 3.6, Albumin/Globulin Ratio 0.4L 02/06/20 05:18: POC Whole Blood Glucose 122H Height (Feet): 5 Height (Inches): 1.00 Weight (Pounds): 81 General Appearance: no apparent distress EENT: other - On ventilator Cardiovascular: normal rate Respiratory/Chest: decreased breath sounds Abdomen: soft Objective No change Chivo Holloway MD Feb 06, 2020 16:46
[2020-02-06] MEDS: NS IVPB SCH (18:14)
[2020-02-06] MEDS: GENTAMICIN IVPB SCH (18:14)
[2020-02-06 20:00] VITALS: BP 120/63
[2020-02-06] MEDS: OXcarbazepine 150mg tab GT SCH (22:24)
[2020-02-07] VITALS: BP 111/60
[2020-02-07] MEDS: D5 1/2NS 1,000 ML IV SCH ×2 (03:13→18:30)
[2020-02-07 04:00] VITALS: BP 119/66
[2020-02-07 08:00] VITALS: BP 109/59
--- NOTE | 2020-02-07 09:13 | Nephrology Progress Note ---
Assessment/Plan Problem List: (1) RICHARD (acute kidney injury) (2) Dehydration (3) Anemia (4) GI bleed (5) Malnutrition (6) Seizure disorder (7) Electrolyte imbalance Assessment Renal failure, in the form of prerenal azotemia, most likely secondary to GI bleed GI bleed, leading to severe anemia Sepsis, pneumonia Chronic tracheostomy, ventilator dependent History of CVA History of seizure disorder History of psychiatric disorder Severe malnutrition Electrolyte abnormalities Plan February 06: No chemistry panel drawn today. Clinically remains stable from renal standpoint of view. Patient is full code. February 05: Phosphorus and magnesium supplement given. Stable from renal standpoint of view. Remains full code February 04: No chemistry panel done today. Remains stable from renal standpoint of view. Continue to monitor renal parameters. February 03: Labs reviewed. Renal parameters stable. Continue her consultants. February 02: Lab reviewed. Low phosphorus low magnesium corrections ordered. Continue to monitor electrolytes and renal parameters. February 01: Lab reviewed. Low phosphorus and low magnesium replaced. Low potassium replaced. Continue to monitor electrolytes. Continue per consultants. January 31: Lab reviewed. Hemoglobin higher. Renal parameters stable. Potassium and phosphorus supplement given. January 30: Labs reviewed. Low mag low phosphorus and low potassium replaced. White blood cells 16,000 today. Remains full code. Continue to monitor hemoglobin and hematocrit and electrolytes. January 29: Labs reviewed. Magnesium, potassium, phosphorus supplement given. White blood cells down to 22,000. Remains full code. Continue per consultants. RN reports rectal bleed. Hemoglobin drifting down. Defer management to interventional physician who is already on the case. January 28: Status quo. Electrolyte abnormalities noted. Mag Phos and potassium supplement IV given. Renal parameters stable. Continue per consultants. Leukocytosis persists. January 27: Significant rise in white blood cell counts. Hypotensive. Now in ICU. Will give albumin bolus. Continue to monitor renal parameters. Continue per ID advice. January 26: Continue to monitor renal parameters. Patient remains on ventilator. Patient is full code. Continue per consultants. January 25: Status quo. Labs reviewed. Continue per consultants. January 24: Status unchanged. Labs reviewed. Remains stable from renal standpoint of view. January 23: Back in [place]. Stable from renal standpoint of view. Continue per consultants. January 22: Patient in ICU now. Vital signs and heart rate and blood pressure appears to be stable. Patient had an episode of bradycardia but it was resolve d. TSH level today is very low will cut down on Synthroid dose. January 21: Today's labs are reviewed. Stable renal parameters. Continue per consultants. January 20: Labs reviewed. Renal parameters stable. January 19: Labs reviewed. Stable from renal standpoint. January 18: No labs done today. Continue per consultants. Medications reviewed. January 17: Late note entry due to system problem at the [facility] [place] today.Chemistry panel reviewed. Stable from renal standpoint of view. Continue per current management. January 16: No can panel today. Check lab tomorrow. Remains stable from renal standpoint of view. January 15: Lab reviewed. Renal parameters stable. January 14: Lab reviewed. Renal parameters stable. January 13: Labs reviewed. Stable from renal standpoint of view. January 12: Labs reviewed. Stable from renal standpoint of view January 11: No labs drawn today stable from renal standpoint of view January 10: Labs reviewed. Potassium supplement given. Continue per consultants . January 09: Lab reviewed. Potassium supplement given. IV fluid discontinued. January 08: Lab reviewed. Renal parameters stable. Continue per consultants. January 07: Lab reviewed. Renal parameters stable. Continue per consultants. January 06: Lab reviewed. Stable from renal standpoint of view. January 05: Labs reviewed. Stable from renal standpoint of view. Continue per consultants. January 04: No labs drawn today. Will check labs tomorrow. Continue per consultants. January 03: Lab reviewed. Renal parameters stable. IV fluid discontinued. High LFTs declining. Continue same. January 02: Lab reviewed. Renal parameters stable. Continue per PMD and consultants. LFTs remain elevated. Continue to monitor. Continue slow hydration Discontinue blood pressure medications as her blood pressure is low Discontinue diuretics Monitor renal parameters Transfusion as needed GI evaluation Correct electrolyte abnormalities Check B12 level, folate, and thyroid function tests: Results noted Subjective ROS Limited/Unobtainable: Yes Objective Objective Last 24 Hour Vital Signs Date Time Temp Pulse Resp B/P (MAP) Pulse Ox O2 Delivery O2 Flow Rate FiO2 02/07/20 08:50 73 14 35 02/07/20 08:00 97.7 79 20 109/59 (76) 100 02/07/20 07:18 76 20 35 02/07/20 04:00 98.3 88 17 119/66 (83) 100 02/07/20 04:00 30 02/07/20 04:00 Mechanical Ventilator 02/07/20 03:28 89 02/07/20 03:22 71 25 35 02/07/20 00:00 98.2 76 20 111/60 (77) 100 02/07/20 00:00 Mechanical Ventilator 02/07/20 00:00 30 02/06/20 23:31 73 02/06/20 23:15 73 21 35 02/06/20 20:00 30 02/06/20 20:00 Mechanical Ventilator 02/06/20 20:00 98.2 82 19 120/63 (82) 100 02/06/20 20:00 82 02/06/20 18:30 64 19 35 02/06/20 16:00 81 02/06/20 16:00 97.9 98 20 122/72 (89) 100 02/06/20 15:26 30 02/06/20 15:25 Mechanical Ventilator 02/06/20 14:56 59 21 30 02/06/20 12:00 30 02/06/20 12:00 54 02/06/20 12:00 97.9 55 16 99/49 (66) 96 02/06/20 12:00 Mechanical Ventilator 02/06/20 11:19 84 21 30 Intake and Output 02/06/20 02/07/20 19:00 07:00 Intake Total 650 ml 1187 ml Output Total 300 ml 400 ml Balance 350 ml 787 ml Intake Free Water 150 ml IV Total 652 ml Tube Feeding 550 ml 385 ml Other 100 ml Stool Total 300 ml 400 ml # Voids 3 2 Laboratory Tests 02/06/20 18:23: POC Whole Blood Glucose 100 02/07/20 00:39: POC Whole Blood Glucose [Pending] 02/07/20 05:18: POC Whole Blood Glucose [Pending] Height (Feet): 5 Height (Inches): 1.00 Weight (Pounds): 82 General Appearance: no apparent distress EENT: other - Trach and vent Cardiovascular: normal rate Respiratory/Chest: decreased breath sounds Abdomen: soft Objective No change Chivo Holloway MD Feb 07, 2020 09:13
--- NOTE | 2020-02-07 09:14 | Hematology/Onc Progress Note ---
Assessment/Plan Assessment/Plan # Anemia rule out underlying gi bleed --> Dr. Carrillo has been consulted-->endosco gastric ulceration --> trend hgb 7-->7.4-->7.9-->8.1->9.6-->8.5->9.1-->10-->11-->10.3-->10.4-->11->9.8-->7.4 ->9-->10.5-->9.1 --> anemia panel ordered-->reviewed --> prn transfusion --> protonix started # Leukocytosis is likely related to pna on imaging --> abx has been started --> if wbc worsens, consider abx vanc/zosyn--> ceftriaxone-->vanc->fluc/flagyl/vanc--> flagyl/fidoxomicin->vanc/cefepime/flagyl-->gentamcinflagyl --> smear is noted --> wbc 25-->15-->14-->16->7.6-->12-->20->13->11->14-->33-->16->8->11 --> pressors prn # Thrombocytopenia med related v labs error --> plt trend 167-->61-->227->373 --> meds have been reviewed --> no hep or lovenox # Sepsis --> on abx for pna --> pressors as needed --> fluids as per pcp for hypotension # Pneumonia --> pulm, Dr. 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 wireless sales consultant care, will follow Subjective Allergies: Coded Allergies: CARBAMAZEPINE (Verified Allergy, Unknown, 12/31/19) LORAZEPAM (Verified Allergy, Unknown, 12/31/19) All Systems: reviewed and negative except above Subjective 01/01 altered, trach, no bleedin wbc improved on abx, seen by gi 01/02 egd study noted, also with plts 61k, have dw Dharmita Rn, will recheck cbc 01/03 remains agitated, vitaly rn, no bleeding, cbc noted as well as id recs 01/04 on vent, with melena overnight, no bleeding, vitaly rn, labs reviewed 01/06 on vent, remains agitated, no bleeding, vitaly rn, smear is noted 01/07 on vent, restless, asymptomatic, noncooperative 01/[address] John obtained, reviewed, meds adjusted, eeg pending 01/09 labs noted, no bleeding, ativan has been discontinued, meds reviewed 01/10 trach to vent, agitated, with wrist restraints, no major changes, no bleeding 01/11 labs are reviewed, on trach to vent, no bleeding, agitated overnight, no complaints 01/13 labs noted, no bleeding, is on vent/trach, no bleeding, vitaly rn, labs are noted 01/14 labs are noted, no bleeding, remains on v/t, remains agitated, no bleeding 01/15 is c.diff positive, wbc higher at 21k, labs noted, on abx, reviewed gi, id recs 01/16 remains on vent, wbc is improved, in sr, as abx per id 01/17 recieved dopamine, tube feeds, on soft restraints, no bleeding, vitaly rn 01/18 labs are noted, no bleeding, vitaly rn, no major changes 01/20 on dopamine gtt, with restraints, no major changes, labs noted 01/21 labs reviewed, no bleeding, vitaly rn, no major changes 01/22 transferred to icu for higher loc, dopamine on hold as bp is good, have increased Synthroid 01/23 labs are pending, meds noted, no bleeding, dopamine gtt ongoing, cbc noted 01/24 still nv, no bleeding, labs reviewed, vitaly rn, with rectal tube in place, on dopamine gtt 01/25 is on bipap, nv, no bleeding, remains on low dose pressorm hgb 11 01/27 on dopamine, hr was elevated overnight, cards aware 01/28 on vent, with ivfs running, rectal tube with red blood noted, consider gi eval 01/29 on vent, labs reviewed, wbc 22, hgb 8.4, on abx currently, vanc/flagyl/cefepime 02/02 labs reviewed, no bleeding, on vent, no night sweats, wbc improved 02/03 is on gtube feeds, with trach to vent, oxygen as needed, labs wbc better 02/04 nv, is on gt, on vent, no bleeding, labs are noted, guarded prognosis 02/05 labs are noted, nv, is on gt feeds, no bleeding, abx as needed 02/06 labs reviewed, is on tube feeds, on vent, nv, no bleeding Objective Objective Current Medications Medications (Trade) Dose Ordered Sig/Villa Route PRN Reason Start Time Stop Time Status Last Admin Dose Admin Acetaminophen (Tylenol) 650 mg Q4H PRN GT Temp >100.5 02/01/20 20:30 03/02/20 20:29 02/05/20 11:43 Ascorbic Acid (Vitamin C) 500 mg DAILY GT 01/28/20 09:30 02/27/20 09:29 02/06/20 08:56 Dextrose/Sodium Chloride 1,000 ml @ 75 mls/hr [id number] IV 01/29/20 13:00 02/27/20 12:59 02/07/20 03:13 Famotidine (Pepcid I.v.) 20 mg Q12HR IVP 01/29/20 21:00 02/28/20 20:59 02/06/20 22:22 Gabapentin (Neurontin) 900 mg TID GT 01/28/20 09:30 02/19/20 09:29 02/06/20 18:14 Gentamicin Protocol (Gentamicin pharmacy to dose) 1 ea DAILY PRN MISC Per rx protocol 02/02/20 17:00 03/03/20 16:59 Gentamicin Sulfate 200 mg/ Sodium Chloride 115 ml @ 115 mls/hr Q24H IVPB 02/02/20 18:00 02/09/20 17:59 02/06/20 18:14 Haloperidol Lactate (Haldol) 5 mg Q6H PRN IM Agitation 01/28/20 09:30 02/15/20 09:29 Levetiracetam (Keppra) 1,500 mg Q12HR GT 01/28/20 09:30 02/07/20 09:29 02/06/20 22:24 Levothyroxine Sodium (Synthroid) 50 mcg ACBREAKFAST GT 01/29/20 06:30 02/10/20 06:29 02/07/20 05:59 Loperamide HCl (Imodium) 2 mg Q4H PRN ORAL Diarrhea 02/05/20 10:00 03/06/20 09:59 02/06/20 05:50 Midodrine (Pro-Amatine) 10 mg TID GT 01/28/20 18:00 04/21/20 09:29 02/06/20 18:14 Multivitamins (Multivitamins W/ Minerals 15ml Liquid) 15 ml DAILY GT 01/28/20 09:30 02/27/20 09:29 02/06/20 08:56 Oxcarbazepine (TrileptaL) 300 mg BEDTIME GT 01/28/20 21:00 02/07/20 20:59 02/06/20 22:24 Pantoprazole (Protonix) 40 mg EVERY 12 HOURS IVP 01/31/20 09:30 03/01/20 09:29 02/06/20 22:22 Potassium Chloride (K-Dur) 40 meq TWICE A DAY ORAL 02/02/20 18:00 05/02/20 17:59 02/05/20 17:34 Sucralfate (Carafate) 1 gm FOUR TIMES A DAY ORAL 01/30/20 09:00 04/29/20 08:59 02/06/20 22:22 Thiamine HCl (Vitamin B1) 100 mg DAILY GT 01/28/20 09:30 02/27/20 09:29 02/06/20 08:57 Last 24 Hour Vital Signs Date Time Temp Pulse Resp B/P (MAP) Pulse Ox O2 Delivery O2 Flow Rate FiO2 02/07/20 08:50 73 14 35 02/07/20 08:00 97.7 79 20 109/59 (76) 100 02/07/20 07:18 76 20 35 02/07/20 04:00 98.3 88 17 119/66 (83) 100 02/07/20 04:00 30 02/07/20 04:00 Mechanical Ventilator 02/07/20 03:28 89 02/07/20 03:22 71 25 35 02/07/20 00:00 98.2 76 20 111/60 (77) 100 02/07/20 00:00 Mechanical Ventilator 02/07/20 00:00 30 02/06/20 23:31 73 02/06/20 23:15 73 21 35 02/06/20 20:00 30 02/06/20 20:00 Mechanical Ventilator 02/06/20 20:00 98.2 82 19 120/63 (82) 100 02/06/20 20:00 82 02/06/20 18:30 64 19 35 02/06/20 16:00 81 02/06/20 16:00 97.9 98 20 122/72 (89) 100 02/06/20 15:26 30 02/06/20 15:25 Mechanical Ventilator 02/06/20 14:56 59 21 30 02/06/20 12:00 30 02/06/20 12:00 54 02/06/20 12:00 97.9 55 16 99/49 (66) 96 02/06/20 12:00 Mechanical Ventilator 02/06/20 11:19 84 21 30 02/06/20 08:00 Mechanical Ventilator 02/06/20 08:00 64 02/06/20 08:00 97.9 67 20 106/65 (79) 95 02/06/20 08:00 30 02/06/20 07:36 87 18 30 02/06/20 04:00 97.7 75 21 101/59 (73) 94 02/06/20 04:00 Mechanical Ventilator 02/06/20 04:00 30 02/06/20 03:26 55 02/06/20 03:02 81 18 30 02/06/20 00:00 Mechanical Ventilator 02/06/20 00:00 97.5 74 32 98/61 (73) 99 02/06/20 00:00 30 02/05/20 23:30 98 02/05/20 23:05 87 16 30 02/05/20 20:00 Mechanical Ventilator 02/05/20 20:00 98.1 76 18 101/59 (73) 100 02/05/20 20:00 72 02/05/20 20:00 30 02/05/20 19:05 78 20 30 02/05/20 16:00 99.1 83 22 117/58 (77) 100 02/05/20 16:00 Mechanical Ventilator 02/05/20 16:00 70 02/05/20 16:00 30 02/05/20 15:29 69 20 30 02/05/20 12:13 99.3 02/05/20 12:00 Mechanical Ventilator 02/05/20 12:00 75 02/05/20 12:00 99.5 74 22 95/48 (64) 100 02/05/20 12:00 30 02/05/20 11:05 66 22 30 Intake and Output 02/06/20 02/07/20 19:00 07:00 Intake Total 650 ml 1187 ml Output Total 300 ml 400 ml Balance 350 ml 787 ml Intake Free Water 150 ml IV Total 652 ml Tube Feeding 550 ml 385 ml Other 100 ml Stool Total 300 ml 400 ml # Voids 3 2 Labs Test 02/04/20 11:23 02/04/20 17:47 02/04/20 23:07 02/05/20 04:02 POC Whole Blood Glucose 103 MG/DL (74-106) White Blood Count 9.2 K/UL (4.8-10.8) Red Blood Count 3.04 M/UL (4.20-5.40) Hemoglobin 9.1 G/DL (12.0-16.0) Hematocrit 27.7 % (37.0-47.0) Mean Corpuscular Volume 91 FL (80-99) Mean Corpuscular Hemoglobin 29.8 PG (27.0-31.0) Mean Corpuscular Hemoglobin Concent 32.7 G/DL (32.0-36.0) Red Cell Distribution Width 15.1 % (11.6-14.8) Platelet Count 331 K/UL (150-450) Mean Platelet Volume 6.3 FL (6.5-10.1) Neutrophils (%) (Auto) 64.4 % (45.0-75.0) Lymphocytes (%) (Auto) 20.5 % (20.0-45.0) Monocytes (%) (Auto) 11.1 % (1.0-10.0) Eosinophils (%) (Auto) 2.8 % (0.0-3.0) Basophils (%) (Auto) 1.3 % (0.0-2.0) Test 02/05/20 04:58 02/05/20 11:41 02/05/20 16:14 02/05/20 23:04 POC Whole Blood Glucose 100 MG/DL (74-106) 106 MG/DL (74-106) Test 02/06/20 02:35 02/06/20 05:18 02/06/20 18:23 02/07/20 00:39 White Blood Count 11.4 K/UL (4.8-10.8) Red Blood Count 3.03 M/UL (4.20-5.40) Hemoglobin 9.0 G/DL (12.0-16.0) Hematocrit 27.6 % (37.0-47.0) Mean Corpuscular Volume 91 FL (80-99) Mean Corpuscular Hemoglobin 29.7 PG (27.0-31.0) Mean Corpuscular Hemoglobin Concent 32.6 G/DL (32.0-36.0) Red Cell Distribution Width 14.8 % (11.6-14.8) Platelet Count 335 K/UL (150-450) Mean Platelet Volume 5.9 FL (6.5-10.1) Neutrophils (%) (Auto) 68.6 % (45.0-75.0) Lymphocytes (%) (Auto) 18.7 % (20.0-45.0) Monocytes (%) (Auto) 9.5 % (1.0-10.0) Eosinophils (%) (Auto) 2.3 % (0.0-3.0) Basophils (%) (Auto) 0.9 % (0.0-2.0) Sodium Level 139 MMOL/L (136-145) Potassium Level 4.2 MMOL/L (3.5-5.1) Chloride Level 108 MMOL/L (98-107) Carbon Dioxide Level 25 MMOL/L (21-32) Anion Gap 6 mmol/L (5-15) Blood Urea Nitrogen 2 mg/dL (7-18) Creatinine 0.3 MG/DL (0.55-1.30) Estimat Glomerular Filtration Rate > 60 mL/min (>60) Glucose Level 94 MG/DL (74-106) Calcium Level 8.0 MG/DL (8.5-10.1) Phosphorus Level 1.6 MG/DL (2.5-4.9) Magnesium Level 1.6 MG/DL (1.8-2.4) Total Bilirubin 0.2 MG/DL (0.2-1.0) Aspartate Amino Transf (AST/SGOT) 15 U/L (15-37) Alanine Aminotransferase (ALT/SGPT) 9 U/L (12-78) Alkaline Phosphatase 58 U/L (46-116) C-Reactive Protein, Quantitative 2.4 mg/dL (0.00-0.90) Pro-B-Type Natriuretic Peptide 183 pg/mL (0-125) Total Protein 5.2 G/DL (6.4-8.2) Albumin 1.6 G/DL (3.4-5.0) Globulin 3.6 g/dL Albumin/Globulin Ratio 0.4 (1.0-2.7) POC Whole Blood Glucose 122 MG/DL (74-106) 100 MG/DL (74-106) Test 02/07/20 05:18 Height (Feet): 5 Height (Inches): 1.00 Weight (Pounds): 82 Objective Vital Signs General Appearance: ++ cachectic, chronically ill HEENT: normocephalic, atraumatic ++ trach Resp: other -. vent ++ Cardiovascular: regular rate, rhythm, no edema Gastrointestinal: gtube in place, without erythema Rectal: other - Hemoccult positive [place]: back normal, gait/station normal, non-tender Lymphatic: no adenopathy Baltazar Cortes MD Feb 07, 2020 09:14
[2020-02-07] MEDS: levETIRAcetam 500mg/5ml Liquid GT SCH (09:31)
[2020-02-07] MEDS: Multivitamins W/Minerals 15 ML UDC GT SCH (09:31)
--- NOTE | 2020-02-07 09:31 | Pulmonology Progress Note ---
Ivanna Mora ATTRACTION ATTENDANT 02/07/20 0931: Subjective ROS Limited/Unobtainable: Yes Allergies: Coded Allergies: CARBAMAZEPINE (Verified Allergy, Unknown, 12/31/19) LORAZEPAM (Verified Allergy, Unknown, 12/31/19) All Systems: reviewed and negative except above Subjective in JULIANA no signs of resp distress on current vent settings BP better , on Midodrine, off Dopamine gtt no fevers l since 02/03 mild leuk 02/05 , no labs today CXR 02/01- Interval development of retrocardiac airspace opacities which could represent atelectasis versus developing consolidation. CXR 02/04 Bilateral mostly interstitial opacities; suspect largely chronic although there may be an acute component at the left lung base. The latter does appear somewhat improved since the previous exam. SCX + Serratia and another GNR Objective Last 24 Hour Vital Signs Date Time Temp Pulse Resp B/P (MAP) Pulse Ox O2 Delivery O2 Flow Rate FiO2 02/07/20 08:50 73 14 35 02/07/20 08:00 97.7 79 20 109/59 (76) 100 02/07/20 07:18 76 20 35 02/07/20 04:00 98.3 88 17 119/66 (83) 100 02/07/20 04:00 30 02/07/20 04:00 Mechanical Ventilator 02/07/20 03:28 89 02/07/20 03:22 71 25 35 02/07/20 00:00 98.2 76 20 111/60 (77) 100 02/07/20 00:00 Mechanical Ventilator 02/07/20 00:00 30 02/06/20 23:31 73 02/06/20 23:15 73 21 35 02/06/20 20:00 30 02/06/20 20:00 Mechanical Ventilator 02/06/20 20:00 98.2 82 19 120/63 (82) 100 02/06/20 20:00 82 02/06/20 18:30 64 19 35 02/06/20 16:00 81 02/06/20 16:00 97.9 98 20 122/72 (89) 100 02/06/20 15:26 30 02/06/20 15:25 Mechanical Ventilator 02/06/20 14:56 59 21 30 02/06/20 12:00 30 02/06/20 12:00 54 02/06/20 12:00 97.9 55 16 99/49 (66) 96 02/06/20 12:00 Mechanical Ventilator 02/06/20 11:19 84 21 30 Intake and Output 02/06/20 02/07/20 19:00 07:00 Intake Total 650 ml 1187 ml Output Total 300 ml 400 ml Balance 350 ml 787 ml Intake Free Water 150 ml IV Total 652 ml Tube Feeding 550 ml 385 ml Other 100 ml Stool Total 300 ml 400 ml # Voids 3 2 Objective General Appearance: bedridden, pale, chronically ill looking, older than her biological age ; vent dependent female ; on vent SIMV 450-30%-12, PEEP 5 Lines, tubes and drains: trach HEENT: normocephalic, atraumatic Neck: trach - Portex #7, secretions small amount, yellow color, thin consistency Respiratory/Chest: CTAB Cardiovascular/Chest: regular rate, regular rhythm Abdomen: non tender, soft, G tube , rectal tube Genitourinary/Rectal: [place] Extremities: no edema, muscle atrophy Neurologic: abnormal gait, awake, poorly responsive Musculoskeletal: atrophy BLE Skin: multiple tattoos Laboratory Tests 02/06/20 18:23: POC Whole Blood Glucose 100 02/07/20 00:39: POC Whole Blood Glucose [Pending] 02/07/20 05:18: POC Whole Blood Glucose [Pending] Current Medications Medications (Trade) Dose Ordered Sig/Villa Route PRN Reason Start Time Stop Time Status Last Admin Dose Admin Acetaminophen (Tylenol) 650 mg Q4H PRN GT Temp >100.5 02/01/20 20:30 03/02/20 20:29 02/05/20 11:43 Ascorbic Acid (Vitamin C) 500 mg DAILY GT 01/28/20 09:30 02/27/20 09:29 02/06/20 08:56 Dextrose/Sodium Chloride 1,000 ml @ 75 mls/hr [id number] IV 01/29/20 13:00 02/27/20 12:59 02/07/20 03:13 Famotidine (Pepcid I.v.) 20 mg Q12HR IVP 01/29/20 21:00 02/28/20 20:59 02/06/20 22:22 Gabapentin (Neurontin) 900 mg TID GT 01/28/20 09:30 02/19/20 09:29 02/06/20 18:14 Gentamicin Protocol (Gentamicin pharmacy to dose) 1 ea DAILY PRN MISC Per rx protocol 02/02/20 17:00 03/03/20 16:59 Gentamicin Sulfate 200 mg/ Sodium Chloride 115 ml @ 115 mls/hr Q24H IVPB 02/02/20 18:00 02/09/20 17:59 02/06/20 18:14 Haloperidol Lactate (Haldol) 5 mg Q6H PRN IM Agitation 01/28/20 09:30 02/15/20 09:29 Levetiracetam (Keppra) 1,500 mg Q12HR GT 01/28/20 09:30 02/07/20 09:29 02/06/20 22:24 Levothyroxine Sodium (Synthroid) 50 mcg ACBREAKFAST GT 01/29/20 06:30 02/10/20 06:29 02/07/20 05:59 Loperamide HCl (Imodium) 2 mg Q4H PRN ORAL Diarrhea 02/05/20 10:00 03/06/20 09:59 02/06/20 05:50 Midodrine (Pro-Amatine) 10 mg TID GT 01/28/20 18:00 04/21/20 09:29 02/06/20 18:14 Multivitamins (Multivitamins W/ Minerals 15ml Liquid) 15 ml DAILY GT 01/28/20 09:30 02/27/20 09:29 02/06/20 08:56 Oxcarbazepine (TrileptaL) 300 mg BEDTIME GT 01/28/20 21:00 02/07/20 20:59 02/06/20 22:24 Pantoprazole (Protonix) 40 mg EVERY 12 HOURS IVP 01/31/20 09:30 03/01/20 09:29 02/06/20 22:22 Potassium Chloride (K-Dur) 40 meq TWICE A DAY ORAL 02/02/20 18:00 05/02/20 17:59 02/05/20 17:34 Sucralfate (Carafate) 1 gm FOUR TIMES A DAY ORAL 01/30/20 09:00 04/29/20 08:59 02/06/20 22:22 Thiamine HCl (Vitamin B1) 100 mg DAILY GT 01/28/20 09:30 02/27/20 09:29 02/06/20 08:57 Assessment/Plan Assessment/Plan ASSESSMENT VDRF/trach status Sepsis Possible pneumonia UTI recurrent GI bleeding severe C dif colitis Anemia secondary to GI bleeding Aspiration risk Dysphagia, feeding by G-tube Encephalopathy Acute kidney injury likely secondary to dehydration Recurrent bradycardia persistent Hypotension Electrolyte imbalance Severe protein calorie malnutrition Hx of hypertension History of CVA Seizure disorder with witnessed seizure episode 01/07 Psychiatric disorder Presumed scabies, s/p Rx Thrombocytopenia-transient- resolved PLAN OF CARE JULIANA off Dopamine gtt, BP better with Midodrine only on IVF, vent support, pulm toilet ABG stable on current settings on SIMV mode 450-30-12 PEEP5 , no signs of resp distress on these settings keep settings as is and titrate as needed now tachypneic intermittently CXR 01/27 no acute disease pulm toilet via N CT chest 01/28 - with tree-in-bud nodular opacities in the medial left base and lingula with left bronchial bubbly material suggesting infectious or inflammatory bronchiolitis, likely due to aspiration. Small amount of similar foci seen in the right posterior lower lobe. Mild bronchiectasis and reticulation in the lingula, medial left base, and superior left upper lobe could also be due to chronic infection. CXR 02/01 -Interval development of retrocardiac airspace opacities which could represent atelectasis versus developing consolidation. probably ATX , given no fevers, resolved leukocytosis, no resp distress on current settings CXR 02/04 Bilateral mostly interstitial opacities; suspect largely chronic although there may be an acute component at the left lung base. The latter does appear somewhat improved since the previous exam. mild leuk t02/05, no fevers since 02/03 , no labs today yet pancx-per ID CXR 01/13- no acute findings KUB 01/13- no acute findings UA + yeast , 01/12 UCX +yeast, started on Fluconazole 01/14 as per ID -completed BCX 01/12 NGTD BCX 01/26 and 01/27 NGTD Vanco po was prior dc and switched to Dificid , also on Flagyl per GI -till 01/28 , both extended till , completed inflammatory markers : ESR-42, CRP- wnl WBC smear NGT C dif a/b 01/30 NGT less output from rectal tube UCX 01/27 + Klebs CR- started on Gent per ID recs given prior leukocytosis and fevers SCX 02/02 + Serratia, another GNR abx as per ID recs CT C/ A/P noted ( see results of CT chest above), CT A/P with findings most compatible with ileus and probable infectious or inflammatory enteritis or enterocolitis. off cefepime rapid COVID 19 NGT in ED aspiration precautions Venous Duplex BLE -negative, get SCD ( unable to give a/c given anemia) closely monitor hemodynamic status heme and GI follows s/p prior EGD 01/01 -> gastric ulcer across G tube site , no active bleeding s/p EGD 01/30 -> gastric ulceration without visible bleeding Protonix IV bid ( changed from Protonix gtt), Carafate GT feeding resumed as per GI , s/p blood tx 01/30 stool OB positive , another pending transfuse to keep Hgb > 7. HH at baseline trend LFT-> trended down, hep panel NGT hx of cirrhosis- per GI management monitor renal parameters, lytes, avoid nephrotoxic IVF BUN trending down, creat stable, likely prerenal due to dehydration replace e/lytes as per nephro recs , P and Mg replaced this am as per nephro monitor volumes seizure precautions, antiepileptic optimized as per neuro recs ammonia 49, fup with further neuro recs EEG - grossly abnormal; mild to mod encephalopathy, single ictal episode CT head no acute IC pathology BP management with current regimen SNF meds supportive care dietary recs s/p 12/31 Rx for presumed scabies with permethrin and Ivermectin, repeated Ivermectin 01/08 case discussed and evaluated by supervising physician Raul Esparza MD 02/07/20 1101: Subjective Allergies: Coded Allergies: CARBAMAZEPINE (Verified Allergy, Unknown, 12/31/19) LORAZEPAM (Verified Allergy, Unknown, 12/31/19) Assessment/Plan Assessment/Plan Patient seen and examined with ATTRACTION ATTENDANT. Agree with above A&P as it reflects our joint deliberations. Ivanna Mora NP Feb 07, 2020 09:31 Raul Esparza MD Feb 07, 2020 11:01
[2020-02-07] MEDS: Sucralfate 1gm tab ORAL SCH ×4 (09:32→20:10)
[2020-02-07] MEDS: Thiamine 100mg tab GT SCH (09:32)
[2020-02-07] MEDS: Pantoprazole Inj IVP SCH ×2 (09:33→20:10)
[2020-02-07] MEDS: Gabapentin 300 MG/6 ML Soln GT SCH ×3 (09:38→18:06)
--- NOTE | 2020-02-07 09:51 | General Progress Note ---
Subjective ROS Limited/Unobtainable: No Allergies: Coded Allergies: CARBAMAZEPINE (Verified Allergy, Unknown, 12/31/19) LORAZEPAM (Verified Allergy, Unknown, 12/31/19) Objective Last 24 Hour Vital Signs Date Time Temp Pulse Resp B/P (MAP) Pulse Ox O2 Delivery O2 Flow Rate FiO2 02/07/20 08:50 73 14 35 02/07/20 08:00 97.7 79 20 109/59 (76) 100 02/07/20 07:18 76 20 35 02/07/20 04:00 98.3 88 17 119/66 (83) 100 02/07/20 04:00 30 02/07/20 04:00 Mechanical Ventilator 02/07/20 03:28 89 02/07/20 03:22 71 25 35 02/07/20 00:00 98.2 76 20 111/60 (77) 100 02/07/20 00:00 Mechanical Ventilator 02/07/20 00:00 30 02/06/20 23:31 73 02/06/20 23:15 73 21 35 02/06/20 20:00 30 02/06/20 20:00 Mechanical Ventilator 02/06/20 20:00 98.2 82 19 120/63 (82) 100 02/06/20 20:00 82 02/06/20 18:30 64 19 35 02/06/20 16:00 81 02/06/20 16:00 97.9 98 20 122/72 (89) 100 02/06/20 15:26 30 02/06/20 15:25 Mechanical Ventilator 02/06/20 14:56 59 21 30 02/06/20 12:00 30 02/06/20 12:00 54 02/06/20 12:00 97.9 55 16 99/49 (66) 96 02/06/20 12:00 Mechanical Ventilator 02/06/20 11:19 84 21 30 Intake and Output 02/06/20 02/07/20 19:00 07:00 Intake Total 650 ml 1187 ml Output Total 300 ml 400 ml Balance 350 ml 787 ml Intake Free Water 150 ml IV Total 652 ml Tube Feeding 550 ml 385 ml Other 100 ml Stool Total 300 ml 400 ml # Voids 3 2 Laboratory Tests 02/06/20 18:23: POC Whole Blood Glucose 100 02/07/20 00:39: POC Whole Blood Glucose [Pending] 02/07/20 05:18: POC Whole Blood Glucose [Pending] Height (Feet): 5 Height (Inches): 1.00 Weight (Pounds): 82 General Appearance: no apparent distress EENT: normal ENT inspection Neck: supple Cardiovascular: normal rate Respiratory/Chest: decreased breath sounds Abdomen: normal bowel sounds, non tender, soft Extremities: non-tender Assessment/Plan Problem List: (1) G tube feedings ICD Codes: Z93.1 - Gastrostomy status SNOMED: 707801128, 392956639, 463416931 (2) GI bleed ICD Codes: K92.2 - Gastrointestinal hemorrhage, unspecified SNOMED: 48758438 (3) Sepsis ICD Codes: A41.9 - Sepsis, unspecified organism SNOMED: 67839062 (4) Pneumonia ICD Codes: J18.9 - Pneumonia, unspecified organism SNOMED: 472192133 Status: stable, other - Patient is now hypotensive before over 46 she will receive 500 cc of normal saline bolus to be repeated blood pressure remained below 90 further management will be decided following the boluses treatment repeat laboratory tests will be done in a.m. GEM MCKAY MD Assessment/Plan: s/p EGD gastric ulcer monitor H&H C. Diff positive>> now neg rectal bleed last night and now it has resolved resume GTF prn imodium carafate and ppi will fu Satish Carrillo MD Feb 07, 2020 09:51
[2020-02-07] MEDS: Ascorbic Acid 500mg tab GT SCH (11:28)
[2020-02-07 12:00] VITALS: BP 110/59
[2020-02-07] MEDS ORDERED: D5 1/2NS 1000ml IV ONE ×3 (12:52→13:16)
[2020-02-07] MEDS ORDERED: NS 275ml ONE ×3 (12:58→13:16)
[2020-02-07] MEDS ORDERED: Tubing IV Secondary IV ONE ×2 (13:05→13:16)
[2020-02-07] MEDS ORDERED: D5W 275ml ONE (13:05)
--- NOTE | 2020-02-07 15:58 | Surgery Progress Note ---
Surgery Progress Note Subjective Symptoms: improved, tolerating diet, voiding well, passing flatus, BM Objective Last 24 Hour Vital Signs Date Time Temp Pulse Resp B/P (MAP) Pulse Ox O2 Delivery O2 Flow Rate FiO2 02/07/20 12:36 76 19 35 02/07/20 12:00 73 02/07/20 12:00 98.6 75 18 110/59 (76) 100 02/07/20 12:00 Mechanical Ventilator 02/07/20 12:00 30 02/07/20 10:50 79 22 35 02/07/20 08:50 73 14 35 02/07/20 08:00 70 02/07/20 08:00 97.7 79 20 109/59 (76) 100 02/07/20 08:00 30 02/07/20 08:00 Mechanical Ventilator 02/07/20 07:18 76 20 35 02/07/20 04:00 98.3 88 17 119/66 (83) 100 02/07/20 04:00 30 02/07/20 04:00 Mechanical Ventilator 02/07/20 03:28 89 02/07/20 03:22 71 25 35 02/07/20 00:00 98.2 76 20 111/60 (77) 100 02/07/20 00:00 Mechanical Ventilator 02/07/20 00:00 30 02/06/20 23:31 73 02/06/20 23:15 73 21 35 02/06/20 20:00 30 02/06/20 20:00 Mechanical Ventilator 02/06/20 20:00 98.2 82 19 120/63 (82) 100 02/06/20 20:00 82 02/06/20 18:30 64 19 35 02/06/20 16:00 81 02/06/20 16:00 97.9 98 20 122/72 (89) 100 I&O Intake and Output 02/06/20 02/07/20 19:00 07:00 Intake Total 650 ml 1187 ml Output Total 300 ml 400 ml Balance 350 ml 787 ml Intake Free Water 150 ml IV Total 652 ml Tube Feeding 550 ml 385 ml Other 100 ml Stool Total 300 ml 400 ml # Voids 3 2 Dressing: saturated Cardiovascular: RSR Respiratory: clear, decreased breath sounds Abdomen: soft, present bowel sounds Extremities: no edema, no tenderness, no cyanosis Laboratory Tests Test 02/06/20 18:23 02/07/20 00:39 02/07/20 05:18 02/07/20 13:17 POC Whole Blood Glucose 100 MG/DL (74-106) Pending Pending Pending Plan Problems: (1) Pneumonia (2) Sepsis Assessment & Plan: leukocytosis anemia lactic acidosis agree with GI recommend EGD planned for 12/31 hold feeding for now trend h/h monitor for bleeding no acute hemorrhage will be available in event needs exploration for hemostasis prbc as per heme thank you will follow with recs cont abx worsening wbc wbc trending down comfortable appearing no n/v hypotensive in ICU again worse pending CT results - noted PICC ordered improving wbc improved labs and micro trending labs improved wbc resolved prognosis guarded Pt presented on admission in emaciated state. Pt has tracheostomy and GT. NO skin concerns noted to skin under collar of trach. NO erythema or evidence of skin erosion at GT site. Pt noted to have scaly pimple-like rash with webbing noted to R and L axillae, undersides of both breasts, Bilat groin and lower back. Tracking and webbing noted to hands and feet. Pt restless and scratching at skin. Non-Blanching erythema without induration or fluctuance noted to R and L hips and trochanteric areas.Non-blanching erythema noted along spine. Non-Blanching erythema without induration noted to Sacrum. Non-Blanching erythema noted to R and L Malleoli and both heels. Tx.Plan: Please apply Cavilon Skin Barrier to each bony Prominences at risks for Skin Breakdown. Cover each area with Optifoam drsgs. Change every 7 days and prn. Apply Moisture Barrier Paste to Sacrum. Cover with Optifoam drsg. Change every 3 days and prn. Reposition at least every 2hours or as tolerated. Off-load heels with pillow. APM/EMELI Mattress overlay. improving cont current care plan There is marked enlargement of the third and lateral ventricles and extra axial CSF spaces, in particular the former. There is considerable periventricular deep white matter low-attenuation. Otherwise normal mobley-white differentiation. No acute hemorrhage or edema. No mass effect nor midline shift. Visualized orbits and sinuses are unremarkable. The calvarium is intact Impression: Third and lateral ventriculomegaly. Associated enlargement of the extra axial CSF spaces indicates that this is probably due to central volume loss, but the possibility of hydrocephalus should also be considered. At the degree of volume loss is considerably out of proportion to patient's age. Correlate with clinical history Periventricular deep white matter low-attenuation. Probably on the basis of microvascular ischemic change but given patient's age the possibility of demyelinating disease should be considered as well. Negative for acute intracranial bleed or mass effect ABDOMEN: Liver: Unremarkable. Gallbladder and bile ducts: Cholecystectomy. No ductal dilation. Pancreas: Unremarkable. No ductal dilation. Spleen: Unremarkable. No splenomegaly. Adrenals: Unremarkable. No mass. Kidneys and ureters: Unremarkable. No obstructing stones. No hydronephrosis. Stomach and bowel: Operative bowel findings. Diffuse small bowel wall thickening with areas of distention and fluid-filled colonic loops. No clear focal transition point to suggest small bowel obstruction. PELVIS: Appendix: Appendix not identified. Bladder: Urinary bladder wall thickening could be incidental, due to high outlet pressures, or could represent cystitis. No stones. Reproductive: Unremarkable as visualized. ABDOMEN and PELVIS: Intraperitoneal space: Large low-attenuation pelvic fluid of uncertain significance, potentially reactive. No free air. Bones/joints: No acute fracture. No dislocation. Soft tissues: Bilateral buttock injection granulomas. Vasculature: Unremarkable. No abdominal aortic aneurysm. Lymph nodes: Unremarkable. No enlarged lymph nodes. Tubes, lines and devices: Percutaneous gastrostomy tube adequately positioned in the stomach. Rectal tube. Other findings: No perforation seen. IMPRESSION: 1. Study substantially limited due to lack of IV contrast. 2. Findings most compatible with ileus and probable infectious or inflammatory enteritis or enterocolitis. 3. Large low-attenuation pelvic fluid of uncertain significance, potentially reactive. 4. Appendix not identified. 5. Percutaneous gastrostomy tube adequately positioned in the stomach. Rectal tube. 6. Urinary bladder wall thickening could be incidental, due to high outlet pressures, or could represent cystitis. 7. Cholecystectomy. (3) GI bleed (4) G tube feedings Assessment & Plan: DAILY ESTIMATED NEEDS: Needs based on Underweight, critical care 37.3kg 30-40 kcals/kg 3923-1143 total kcals 1.25-2 g protein/kg 47-75 g total protein 25-35 mL/kg 933-1306 total fluid mLs NUTRITION DIAGNOSIS: Increased kcal and pro needs r/t underweight status as evidenced by BMI 14.1, pt is 68% of ideal body weight w/ generalized severe wasting, trach and peg dep. CURRENT TF:Vital AF 1.2 @55 x20 hrs ENTERAL NUTRITION RECOMMENDATIONS: Vital AF 1.2 @ 55ml/hr x20 hrs to provide 1100ml 1320kcal 83g prot, 892ml free water - Rec to continue elemental TF formula while stool C-diff positive, +LBM - HOLD 1HR BEFORE AND AFTER SYNTHROID MEDS - Flush per . HOB over 30 degrees ADDITIONAL RECOMMENDATIONS: 1) Per SNF: 5'4" and 81# Maintain calibrated bed scale wts w/ added P200 mattress 2) Lytes daily madhav w/ loose stools, replete as needed 3) Skin integrity: Continue BRIAN VIA GT BID + Vit C 4) Accuchecks for Hypoglycemia 5) Add probiotics for stool C-diff+ . George Woods Feb 07, 2020 15:58
[2020-02-07 16:00] VITALS: BP 101/54
[2020-02-07] MEDS: Midodrine 10mg tab GT SCH (18:06)
[2020-02-07] MEDS: GENTAMICIN IVPB SCH (18:31)
[2020-02-07] MEDS: NS IVPB SCH (18:31)
--- NOTE | 2020-02-07 19:01 | Infectious Diseases Prog Note ---
Assessment/Plan 39yo F with: Severe Sepsis Fever, recurrent; SP Leukocytosis; recurrent; mild UTI -02/04 CXR: Bilateral mostly interstitial opacities; suspect largely chronic althoughthere may be an acute component at the left lung base. The latter does appear somewhat improved since the previous exam. -02/02 sp cx S. marcences (R ancef, CTX, mami; I Levo; S Genta, Ceftazidime, Cefepime, bactrim), GNR #2 -02/01 CXR: Interval development of retrocardiac airspace opacities which could represent atelectasis versus developing consolidation. u/a wbc 5-10, nit neg, leuk +2; -01/28 CXR: Subtle reticular nodular opacities in the left apex which may be related to scarring versus acute small airway disease/bronchitis CT c/abd/p wo: Study substantially limited due to lack of IV contrast. Findings most compatible with ileus and probable infectious or inflammatory enteritis or enterocolitis. Large low-attenuation pelvic fluid of uncertain significance, potentially reactive.Appendix not identified. Percutaneous gastrostomy tube adequately positioned in the stomach. Rectal tube. Urinary bladder wall thickening could be incidental, due to high outlet pressures, or could represent cystitis.Cholecystectomy. -01/27 u/a no pyuria, nit +, leuk +3; ucx >100k CRE K, pna (S Gentamycin), P . miriabilis, MDR P, fluorensces (I Gentamycin) CXR: no acute disease Bc xNTD -01/26 Bcx Neg -01/13 CXR: no acute disease -01/12 u/a wbc tnct, nit neg, latrell +3; ucx >100k C. tropicalis Bcx NTD Severe Cdiff colitis -01/30 Cdif toxin a/b neg -01/06 Cdif toxin + 01/27 KUB:Severely dilated small bowel loop in the central abdomen could reflect obstruction. Diffusely fluid distended colon. -01/13 KUB: no acute findings Recurrent GIB 01/06 u/aneg 12/30 BCx 1/2 +CONS, likely contaminant 12/30 UA neg, COVID rapid Ag neg 12/30 CXR 1. Density overlying the bilateral lung apices. May represent pleural thickening, multifocal airspace opacities, versus summation artifact. 01/01 BCx Neg 01/02 BCx Neg Acute blood loss anemia Possible pna on CXR, sp rx Seizure episode -01/10 CT head: Third and lateral ventriculomegaly. Associated enlargement of the extra axial CSF spaces indicates that this is probably due to central volume loss, but the possibility of hydrocephalus should also be considered. At the degree of volume loss is considerably out of proportion to patient's age. Periventricular deep white matter low-attenuation. Probably on the basis of microvascular ischemic change but given patient's age the possibility of demyelinating disease should be considered as well. 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 [facility] will continue to follow. Subjective Allergies: Coded Allergies: CARBAMAZEPINE (Verified Allergy, Unknown, 12/31/19) LORAZEPAM (Verified Allergy, Unknown, 12/31/19) afebrile >48hrs Fio2 30% mild leukocytosis stool output improving Objective Last 24 Hour Vital Signs Date Time Temp Pulse Resp B/P (MAP) Pulse Ox O2 Delivery O2 Flow Rate FiO2 02/07/20 16:00 99.0 78 19 101/54 (70) 100 02/07/20 16:00 69 02/07/20 16:00 30 02/07/20 16:00 Mechanical Ventilator 02/07/20 15:55 79 15 35 02/07/20 12:36 76 19 35 02/07/20 12:00 73 02/07/20 12:00 98.6 75 18 110/59 (76) 100 02/07/20 12:00 Mechanical Ventilator 02/07/20 12:00 30 02/07/20 10:50 79 22 35 02/07/20 08:50 73 14 35 02/07/20 08:00 70 02/07/20 08:00 97.7 79 20 109/59 (76) 100 02/07/20 08:00 30 02/07/20 08:00 Mechanical Ventilator 02/07/20 07:18 76 20 35 02/07/20 04:00 98.3 88 17 119/66 (83) 100 02/07/20 04:00 30 02/07/20 04:00 Mechanical Ventilator 02/07/20 03:28 89 02/07/20 03:22 71 25 35 02/07/20 00:00 98.2 76 20 111/60 (77) 100 02/07/20 00:00 Mechanical Ventilator 02/07/20 00:00 30 02/06/20 23:31 73 02/06/20 23:15 73 21 35 02/06/20 20:00 30 02/06/20 20:00 Mechanical Ventilator 02/06/20 20:00 98.2 82 19 120/63 (82) 100 02/06/20 20:00 82 Height (Feet): 5 Height (Inches): 1.00 Weight (Pounds): 82 General Appearance: no apparent distress Neck: supple Cardiovascular: normal rate Respiratory/Chest: decreased breath sounds Abdomen: hypoactive bowel sounds Extremities: non-tender Laboratory Tests Test 02/07/20 00:39 02/07/20 05:18 02/07/20 13:17 02/07/20 17:33 POC Whole Blood Glucose Pending Pending Pending Pending Current Medications Medications (Trade) Dose Ordered Sig/Villa Route PRN Reason Start Time Stop Time Status Last Admin Dose Admin Acetaminophen (Tylenol) 650 mg Q4H PRN GT Temp >100.5 02/01/20 20:30 03/02/20 20:29 02/05/20 11:43 Ascorbic Acid (Vitamin C) 500 mg DAILY GT 01/28/20 09:30 02/27/20 09:29 02/07/20 11:28 Dextrose/Sodium Chloride 1,000 ml @ 75 mls/hr [id number] IV 01/29/20 13:00 02/27/20 12:59 02/07/20 18:30 Famotidine (Pepcid I.v.) 20 mg Q12HR IVP 01/29/20 21:00 02/28/20 20:59 02/07/20 09:34 Gabapentin (Neurontin) 900 mg TID GT 01/28/20 09:30 02/19/20 09:29 02/07/20 18:06 Gentamicin Protocol (Gentamicin pharmacy to dose) 1 ea DAILY PRN MISC Per rx protocol 02/02/20 17:00 03/03/20 16:59 Gentamicin Sulfate 200 mg/ Sodium Chloride 115 ml @ 115 mls/hr Q24H IVPB 02/02/20 18:00 02/09/20 17:59 02/07/20 18:31 Haloperidol Lactate (Haldol) 5 mg Q6H PRN IM Agitation 01/28/20 09:30 02/15/20 09:29 Levothyroxine Sodium (Synthroid) 50 mcg ACBREAKFAST GT 01/29/20 06:30 02/10/20 06:29 02/07/20 05:59 Loperamide HCl (Imodium) 2 mg Q4H PRN ORAL Diarrhea 02/05/20 10:00 03/06/20 09:59 02/06/20 05:50 Midodrine (Pro-Amatine) 10 mg TID GT 02/07/20 18:00 04/21/20 17:59 02/07/20 18:06 Multivitamins (Multivitamins W/ Minerals 15ml Liquid) 15 ml DAILY GT 01/28/20 09:30 02/27/20 09:29 02/07/20 09:31 Oxcarbazepine (TrileptaL) 300 mg BEDTIME GT 01/28/20 21:00 02/07/20 20:59 02/06/20 22:24 Pantoprazole (Protonix) 40 mg EVERY 12 HOURS IVP 01/31/20 09:30 03/01/20 09:29 02/07/20 09:33 Potassium Chloride (K-Dur) 40 meq TWICE A DAY ORAL 02/02/20 18:00 05/02/20 17:59 02/07/20 18:05 Sucralfate (Carafate) 1 gm FOUR TIMES A DAY ORAL 01/30/20 09:00 04/29/20 08:59 02/07/20 18:05 Thiamine HCl (Vitamin B1) 100 mg DAILY GT 01/28/20 09:30 02/27/20 09:29 02/07/20 09:32 Char Morel M.D. Feb 07, 2020 19:01
[2020-02-07 20:00] VITALS: BP 109/54
--- NOTE | 2020-02-07 22:50 | General Progress Note ---
Subjective Constitutional: Reports: no symptoms HEENT: Reports: no symptoms Cardiovascular: Reports: no symptoms Respiratory: Reports: no symptoms Gastrointestinal/Abdominal: Reports: no symptoms Genitourinary: Reports: no symptoms, other Neurologic/Psychiatric: Reports: no symptoms Endocrine: Reports: no symptoms Hematologic/Lymphatic: Reports: no symptoms Allergies: Coded Allergies: CARBAMAZEPINE (Verified Allergy, Unknown, 12/31/19) LORAZEPAM (Verified Allergy, Unknown, 12/31/19) Objective Last 24 Hour Vital Signs Date Time Temp Pulse Resp B/P (MAP) Pulse Ox O2 Delivery O2 Flow Rate FiO2 02/07/20 20:00 Mechanical Ventilator 02/07/20 20:00 30 02/07/20 20:00 97.9 65 18 109/54 (72) 99 02/07/20 19:47 75 18 35 02/07/20 19:20 74 02/07/20 16:00 99.0 78 19 101/54 (70) 100 02/07/20 16:00 69 02/07/20 16:00 30 02/07/20 16:00 Mechanical Ventilator 02/07/20 15:55 79 15 35 02/07/20 12:36 76 19 35 02/07/20 12:00 73 02/07/20 12:00 98.6 75 18 110/59 (76) 100 02/07/20 12:00 Mechanical Ventilator 02/07/20 12:00 30 02/07/20 10:50 79 22 35 02/07/20 08:50 73 14 35 02/07/20 08:00 70 02/07/20 08:00 97.7 79 20 109/59 (76) 100 02/07/20 08:00 30 02/07/20 08:00 Mechanical Ventilator 02/07/20 07:18 76 20 35 02/07/20 04:00 98.3 88 17 119/66 (83) 100 02/07/20 04:00 30 02/07/20 04:00 Mechanical Ventilator 02/07/20 03:28 89 02/07/20 03:22 71 25 35 02/07/20 00:00 98.2 76 20 111/60 (77) 100 02/07/20 00:00 Mechanical Ventilator 02/07/20 00:00 30 02/06/20 23:31 73 02/06/20 23:15 73 21 35 Intake and Output 02/06/20 02/07/20 19:00 07:00 Intake Total 650 ml 1187 ml Output Total 300 ml 400 ml Balance 350 ml 787 ml Intake Free Water 150 ml IV Total 652 ml Tube Feeding 550 ml 385 ml Other 100 ml Stool Total 300 ml 400 ml # Voids 3 2 Laboratory Tests 02/07/20 00:39: POC Whole Blood Glucose [Pending] 02/07/20 05:18: POC Whole Blood Glucose [Pending] 02/07/20 13:17: POC Whole Blood Glucose [Pending] 02/07/20 17:33: POC Whole Blood Glucose [Pending] Height (Feet): 5 Height (Inches): 1.00 Weight (Pounds): 82 General Appearance: no apparent distress, alert EENT: normal ENT inspection Neck: supple Cardiovascular: normal rate, regular rhythm, no gallop/murmur, no JVD Respiratory/Chest: lungs clear, normal breath sounds, no respiratory distress, no accessory muscle use Abdomen: normal bowel sounds, non tender, soft, no organomegaly, no mass, abnormal bowel sounds, splenomegaly - Persistent diarrhea, other Extremities: non-tender, other - Diffuse muscle wasting bilaterally Edema: other - No edema Neurologic: alert, aphasia - Brief eye contact with this regard to the examination Skin: warm/dry Assessment/Plan Problem List: (1) Pneumonia ICD Codes: J18.9 - Pneumonia, unspecified organism SNOMED: 374478239 (2) Sepsis ICD Codes: A41.9 - Sepsis, unspecified organism SNOMED: 95433191 (3) GI bleed ICD Codes: K92.2 - Gastrointestinal hemorrhage, unspecified SNOMED: 35076591 (4) Anemia ICD Codes: D64.9 - Anemia, unspecified SNOMED: 563436277 (5) Seizure disorder ICD Codes: G40.909 - Epilepsy, unspecified, not intractable, without status epilepticus SNOMED: 257941276 (6) Malnutrition ICD Codes: E46 - Unspecified protein-calorie malnutrition SNOMED: 21855760 (7) Thrombocytopenia ICD Codes: D69.6 - Thrombocytopenia, unspecified SNOMED: 944702914 Status: stable, other - Patient is now hypotensive before over 46 she will receive 500 cc of normal saline bolus to be repeated blood pressure remained below 90 further management will be decided following the boluses treatment repeat laboratory tests will be done in a.. GLENNY MCKAY MD Assessment/Plan: Glenny Guadarrama MD Feb 07, 2020 22:50
--- NOTE | 2020-02-07 23:06 | Cardiology Progress Note ---
Assessment/Plan Assessment/Plan 1. Septic shock, continue midodrine. 2. Sinus bradycardia, resolved. 3. Anemia of chronic disease 4. Acute renal failure, resolved. 5. GI bleeding due to gastric ulceration. 6. Dysphagia, s/p PEG placement, s/p EGD. 7. VDRF, s/p tracheostomy tube placement. Subjective Subjective Sinus rhythm at rate of 65. On the vent with FiO2 of 30%. Objective Last 24 Hour Vital Signs Date Time Temp Pulse Resp B/P (MAP) Pulse Ox O2 Delivery O2 Flow Rate FiO2 02/07/20 20:00 Mechanical Ventilator 02/07/20 20:00 30 02/07/20 20:00 97.9 65 18 109/54 (72) 99 02/07/20 19:47 75 18 35 02/07/20 19:20 74 02/07/20 16:00 99.0 78 19 101/54 (70) 100 02/07/20 16:00 69 02/07/20 16:00 30 02/07/20 16:00 Mechanical Ventilator 02/07/20 15:55 79 15 35 02/07/20 12:36 76 19 35 02/07/20 12:00 73 02/07/20 12:00 98.6 75 18 110/59 (76) 100 02/07/20 12:00 Mechanical Ventilator 02/07/20 12:00 30 02/07/20 10:50 79 22 35 02/07/20 08:50 73 14 35 02/07/20 08:00 70 02/07/20 08:00 97.7 79 20 109/59 (76) 100 02/07/20 08:00 30 02/07/20 08:00 Mechanical Ventilator 02/07/20 07:18 76 20 35 02/07/20 04:00 98.3 88 17 119/66 (83) 100 02/07/20 04:00 30 02/07/20 04:00 Mechanical Ventilator 02/07/20 03:28 89 02/07/20 03:22 71 25 35 02/07/20 00:00 98.2 76 20 111/60 (77) 100 02/07/20 00:00 Mechanical Ventilator 02/07/20 00:00 30 02/06/20 23:31 73 02/06/20 23:15 73 21 35 Intake and Output 02/06/20 02/07/20 19:00 07:00 Intake Total 650 ml 1187 ml Output Total 300 ml 400 ml Balance 350 ml 787 ml Intake Free Water 150 ml IV Total 652 ml Tube Feeding 550 ml 385 ml Other 100 ml Stool Total 300 ml 400 ml # Voids 3 2 2D Echo: LVEF 65%, RVSP 23 mmHg, Grade I LVDD Laboratory Tests Test 02/07/20 00:39 02/07/20 05:18 02/07/20 13:17 02/07/20 17:33 POC Whole Blood Glucose Pending Pending Pending Pending Objective HEENT: PERRLA, EOMI, +Trach tube. NECK: Cannot assess JVP, no carotid bruit with normal upstroke. LUNGS: Bilateral rhonchi. CARDIAC: Regular rhythm and rate. Normal S1, S2, no murmurs, gallops or rubs. ABDOMEN: Soft with G-tube. No hepatomegaly. EXTREMITIES: No edema, clubbing or cyanosis. Desmond Gleason MD Feb 07, 2020 23:06
[2020-02-08] VITALS: BP 107/61
[2020-02-08 04:00] VITALS: BP 103/50
[2020-02-08 04:29] LABS: BASOPHILS % (AUTO) 1.1 % (0.0-2.0); EOSINOPHILS % (AUTO) 3.4 % (0.0-3.0); HEMOGLOBIN 8.7 G/DL (12.0-16.0); LYMPHOCYTES % (AUTO) 21.1 % (20.0-45.0); MEAN CORPUSCULAR VOLUME 90 FL (80-99); MONOCYTES % (AUTO) 11.5 % (1.0-10.0); NEUTROPHILS % (AUTO) 62.9 % (45.0-75.0); PLATELET COUNT 475 K/UL (150-450); RED BLOOD COUNT 2.89 M/UL (4.20-5.40); RED CELL DISTRIBUTION WIDTH 14.4 % (11.6-14.8); WHITE BLOOD COUNT 9.2 K/UL (4.8-10.8)
[2020-02-08 08:00] VITALS: BP 100/73
--- NOTE | 2020-02-08 08:42 | Hematology/Onc Progress Note ---
Assessment/Plan Assessment/Plan # Anemia rule out underlying gi bleed --> Dr. Carrillo has been consulted-->endosco gastric ulceration --> trend hgb 7-->7.4-->7.9-->8.1->9.6-->8.5->9.1-->10-->11-->10.3-->10.4-->11->9.8-->7.4 ->9-->10.5-->9.1-->8.7 --> anemia panel ordered-->reviewed --> prn transfusion --> protonix started # Leukocytosis is likely related to pna on imaging --> abx has been started --> if wbc worsens, consider abx vanc/zosyn--> ceftriaxone-->vanc->fluc/flagyl/v anc-->flagyl/fidoxomicin->vanc/cefepime/flagyl-->gentamcinflagyl --> smear is noted --> wbc 25-->15-->14-->16->7.6-->12-->20->13->11->14-->33-->16->8->11 --> pressors prn # Thrombocytopenia med related v labs error --> plt trend 167-->61-->227->373->457 --> meds have been reviewed --> no hep or lovenox # Sepsis --> on abx for pna --> pressors as needed --> fluids as per pcp for hypotension # Pneumonia --> pulm, Dr. 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 healthcare market consultant care, will follow Subjective Constitutional: Denies: no symptoms, chills, fever, malaise, weakness, other HEENT: Denies: no symptoms, eye pain, blurred vision, tearing, double vision, ear pain, ear discharge, nose pain, nose congestion, throat pain, throat swelling, mouth pain, mouth swelling, other Cardiovascular: Denies: no symptoms, chest pain, edema, irregular heart rate, lightheadedness, palpitations, syncope, other Respiratory: Denies: no symptoms, cough, shortness of breath, SOB with excertion, SOB at rest, sputum, wheezing, other Genitourinary: Denies: no symptoms, burning, discharge, frequency, flank pain, hematuria, incontinence, pain, urgency, other Neurologic/Psychiatric: Denies: no symptoms, anxiety, depressed, emotional problems, headache, numbness, paresthesia, pre-existing deficit, seizure, tingling, tremors, weakness, other Endocrine: Denies: no symptoms, excessive sweating, flushing, intolerance to cold, intolerance to heat, increased hunger, increased thirst, increased urine, unexplained weight gain, unexplained weight loss, other Allergies: Coded Allergies: CARBAMAZEPINE (Verified Allergy, Unknown, 12/31/19) LORAZEPAM (Verified Allergy, Unknown, 12/31/19) Subjective 01/01 altered, trach, no bleedin wbc improved on abx, seen by gi 01/02 egd study noted, also with plts 61k, have vitaly Armendariz Rn, will recheck cbc 01/03 remains agitated, vitaly rn, no bleeding, cbc noted as well as id recs 01/04 on vent, with melena overnight, no bleeding, vitaly rn, labs reviewed 01/06 on vent, remains agitated, no bleeding, vitaly rn, smear is noted 01/07 on vent, restless, asymptomatic, noncooperative 01/[address] John obtained, reviewed, meds adjusted, eeg pending 01/09 labs noted, no bleeding, ativan has been discontinued, meds reviewed 01/10 trach to vent, agitated, with wrist restraints, no major changes, no bleeding 01/11 labs are reviewed, on trach to vent, no bleeding, agitated overnight, no complaints 01/13 labs noted, no bleeding, is on vent/trach, no bleeding, vitaly rn, labs are noted 01/14 labs are noted, no bleeding, remains on v/t, remains agitated, no bleeding 01/15 is c.diff positive, wbc higher at 21k, labs noted, on abx, reviewed gi, id recs 01/16 remains on vent, wbc is improved, in sr, as abx per id 01/17 recieved dopamine, tube feeds, on soft restraints, no bleeding, vitaly rn 01/18 labs are noted, no bleeding, vitaly rn, no major changes 01/20 on dopamine gtt, with restraints, no major changes, labs noted 01/21 labs reviewed, no bleeding, vitaly rn, no major changes 01/22 transferred to icu for higher loc, dopamine on hold as bp is good, have increased Synthroid 01/23 labs are pending, meds noted, no bleeding, dopamine gtt ongoing, cbc noted 01/24 still nv, no bleeding, labs reviewed, vitaly rn, with rectal tube in place, on dopamine gtt 01/25 is on bipap, nv, no bleeding, remains on low dose pressorm hgb 11 01/27 on dopamine, hr was elevated overnight, cards aware 01/28 on vent, with ivfs running, rectal tube with red blood noted, consider gi eval 01/29 on vent, labs reviewed, wbc 22, hgb 8.4, on abx currently, vanc/flagyl/cefepime 02/02 labs reviewed, no bleeding, on vent, no night sweats, wbc improved 02/03 is on gtube feeds, with trach to vent, oxygen as needed, labs wbc better 02/04 nv, is on gt, on vent, no bleeding, labs are noted, guarded prognosis 02/05 labs are noted, nv, is on gt feeds, no bleeding, abx as needed 02/06 labs reviewed, is on tube feeds, on vent, nv, no bleeding 02/07 labs are noted, no bleeding, trach/to vent, wth gtube, meds reviewed Objective Objective Current Medications Medications (Trade) Dose Ordered Sig/Villa Route PRN Reason Start Time Stop Time Status Last Admin Dose Admin Acetaminophen (Tylenol) 650 mg Q4H PRN GT Temp >100.5 02/01/20 20:30 03/02/20 20:29 02/05/20 11:43 Ascorbic Acid (Vitamin C) 500 mg DAILY GT 01/28/20 09:30 02/27/20 09:29 02/07/20 11:28 Dextrose/Sodium Chloride 1,000 ml @ 75 mls/hr [id number] IV 01/29/20 13:00 02/27/20 12:59 02/07/20 18:30 Famotidine (Pepcid I.v.) 20 mg Q12HR IVP 01/29/20 21:00 02/28/20 20:59 02/07/20 20:10 Gabapentin (Neurontin) 900 mg TID GT 01/28/20 09:30 02/19/20 09:29 02/07/20 18:06 Gentamicin Protocol (Gentamicin pharmacy to dose) 1 ea DAILY PRN MISC Per rx protocol 02/02/20 17:00 03/03/20 16:59 Gentamicin Sulfate 200 mg/ Sodium Chloride 115 ml @ 115 mls/hr Q24H IVPB 02/02/20 18:00 02/09/20 17:59 02/07/20 18:31 Haloperidol Lactate (Haldol) 5 mg Q6H PRN IM Agitation 01/28/20 09:30 02/15/20 09:29 Levothyroxine Sodium (Synthroid) 50 mcg ACBREAKFAST GT 01/29/20 06:30 02/10/20 06:29 02/08/20 05:56 Loperamide HCl (Imodium) 2 mg Q4H PRN ORAL Diarrhea 02/05/20 10:00 03/06/20 09:59 02/06/20 05:50 Midodrine (Pro-Amatine) 10 mg TID GT 02/07/20 18:00 04/21/20 17:59 02/07/20 18:06 Multivitamins (Multivitamins W/ Minerals 15ml Liquid) 15 ml DAILY GT 01/28/20 09:30 02/27/20 09:29 02/07/20 09:31 Pantoprazole (Protonix) 40 mg EVERY 12 HOURS IVP 01/31/20 09:30 03/01/20 09:29 02/07/20 20:10 Potassium Chloride (K-Dur) 40 meq TWICE A DAY ORAL 02/02/20 18:00 05/02/20 17:59 02/07/20 18:05 Sucralfate (Carafate) 1 gm FOUR TIMES A DAY ORAL 01/30/20 09:00 04/29/20 08:59 02/07/20 20:10 Thiamine HCl (Vitamin B1) 100 mg DAILY GT 01/28/20 09:30 02/27/20 09:29 02/07/20 09:32 Last 24 Hour Vital Signs Date Time Temp Pulse Resp B/P (MAP) Pulse Ox O2 Delivery O2 Flow Rate FiO2 02/08/20 06:30 73 16 35 02/08/20 04:00 30 02/08/20 04:00 97.7 77 16 103/50 (67) 100 02/08/20 04:00 Mechanical Ventilator 02/08/20 03:56 72 14 35 02/08/20 03:51 80 02/08/20 00:00 97.9 64 18 107/61 (76) 100 02/08/20 00:00 Mechanical Ventilator 02/08/20 00:00 30 02/07/20 23:30 63 16 35 02/07/20 23:29 60 02/07/20 20:00 Mechanical Ventilator 02/07/20 20:00 30 02/07/20 20:00 97.9 65 18 109/54 (72) 99 02/07/20 19:47 75 18 35 02/07/20 19:20 74 02/07/20 16:00 99.0 78 19 101/54 (70) 100 02/07/20 16:00 69 02/07/20 16:00 30 02/07/20 16:00 Mechanical Ventilator 02/07/20 15:55 79 15 35 02/07/20 12:36 76 19 35 02/07/20 12:00 73 02/07/20 12:00 98.6 75 18 110/59 (76) 100 02/07/20 12:00 Mechanical Ventilator 02/07/20 12:00 30 02/07/20 10:50 79 22 35 02/07/20 08:50 73 14 35 02/07/20 08:00 70 02/07/20 08:00 97.7 79 20 109/59 (76) 100 02/07/20 08:00 30 02/07/20 08:00 Mechanical Ventilator 02/07/20 07:18 76 20 35 02/07/20 04:00 98.3 88 17 119/66 (83) 100 02/07/20 04:00 30 02/07/20 04:00 Mechanical Ventilator 02/07/20 03:28 89 02/07/20 03:22 71 25 35 02/07/20 00:00 98.2 76 20 111/60 (77) 100 02/07/20 00:00 Mechanical Ventilator 02/07/20 00:00 30 02/06/20 23:31 73 02/06/20 23:15 73 21 35 02/06/20 20:00 30 02/06/20 20:00 Mechanical Ventilator 02/06/20 20:00 98.2 82 19 120/63 (82) 100 02/06/20 20:00 82 02/06/20 18:30 64 19 35 02/06/20 16:00 81 02/06/20 16:00 97.9 98 20 122/72 (89) 100 02/06/20 15:26 30 02/06/20 15:25 Mechanical Ventilator 02/06/20 14:56 59 21 30 02/06/20 12:00 30 02/06/20 12:00 54 02/06/20 12:00 97.9 55 16 99/49 (66) 96 02/06/20 12:00 Mechanical Ventilator 02/06/20 11:19 84 21 30 Intake and Output 02/07/20 02/08/20 19:00 07:00 Intake Total 1537.5 ml 1665 ml Output Total 150 ml 400 ml Balance 1387.5 ml 1265 ml Intake Free Water 200 ml 100 ml IV Total 787.5 ml 1015 ml Tube Feeding 550 ml 550 ml Stool Total 150 ml 400 ml # Voids 3 2 Labs Test 02/05/20 11:41 02/05/20 16:14 02/05/20 23:04 02/06/20 02:35 POC Whole Blood Glucose 100 MG/DL (74-106) 106 MG/DL (74-106) White Blood Count 11.4 K/UL (4.8-10.8) Red Blood Count 3.03 M/UL (4.20-5.40) Hemoglobin 9.0 G/DL (12.0-16.0) Hematocrit 27.6 % (37.0-47.0) Mean Corpuscular Volume 91 FL (80-99) Mean Corpuscular Hemoglobin 29.7 PG (27.0-31.0) Mean Corpuscular Hemoglobin Concent 32.6 G/DL (32.0-36.0) Red Cell Distribution Width 14.8 % (11.6-14.8) Platelet Count 335 K/UL (150-450) Mean Platelet Volume 5.9 FL (6.5-10.1) Neutrophils (%) (Auto) 68.6 % (45.0-75.0) Lymphocytes (%) (Auto) 18.7 % (20.0-45.0) Monocytes (%) (Auto) 9.5 % (1.0-10.0) Eosinophils (%) (Auto) 2.3 % (0.0-3.0) Basophils (%) (Auto) 0.9 % (0.0-2.0) Sodium Level 139 MMOL/L (136-145) Potassium Level 4.2 MMOL/L (3.5-5.1) Chloride Level 108 MMOL/L (98-107) Carbon Dioxide Level 25 MMOL/L (21-32) Anion Gap 6 mmol/L (5-15) Blood Urea Nitrogen 2 mg/dL (7-18) Creatinine 0.3 MG/DL (0.55-1.30) Estimat Glomerular Filtration Rate > 60 mL/min (>60) Glucose Level 94 MG/DL (74-106) Calcium Level 8.0 MG/DL (8.5-10.1) Phosphorus Level 1.6 MG/DL (2.5-4.9) Magnesium Level 1.6 MG/DL (1.8-2.4) Total Bilirubin 0.2 MG/DL (0.2-1.0) Aspartate Amino Transf (AST/SGOT) 15 U/L (15-37) Alanine Aminotransferase (ALT/SGPT) 9 U/L (12-78) Alkaline Phosphatase 58 U/L (46-116) C-Reactive Protein, Quantitative 2.4 mg/dL (0.00-0.90) Pro-B-Type Natriuretic Peptide 183 pg/mL (0-125) Total Protein 5.2 G/DL (6.4-8.2) Albumin 1.6 G/DL (3.4-5.0) Globulin 3.6 g/dL Albumin/Globulin Ratio 0.4 (1.0-2.7) Test 02/06/20 05:18 02/06/20 18:23 02/07/20 00:39 02/07/20 05:18 POC Whole Blood Glucose 122 MG/DL (74-106) 100 MG/DL (74-106) Test 02/07/20 13:17 02/07/20 17:33 02/08/20 00:30 02/08/20 03:15 White Blood Count 9.2 K/UL (4.8-10.8) Red Blood Count 2.89 M/UL (4.20-5.40) Hemoglobin 8.7 G/DL (12.0-16.0) Hematocrit 26.0 % (37.0-47.0) Mean Corpuscular Volume 90 FL (80-99) Mean Corpuscular Hemoglobin 30.1 PG (27.0-31.0) Mean Corpuscular Hemoglobin Concent 33.5 G/DL (32.0-36.0) Red Cell Distribution Width 14.4 % (11.6-14.8) Platelet Count 475 K/UL (150-450) Mean Platelet Volume 5.6 FL (6.5-10.1) Neutrophils (%) (Auto) 62.9 % (45.0-75.0) Lymphocytes (%) (Auto) 21.1 % (20.0-45.0) Monocytes (%) (Auto) 11.5 % (1.0-10.0) Eosinophils (%) (Auto) 3.4 % (0.0-3.0) Basophils (%) (Auto) 1.1 % (0.0-2.0) Test 02/08/20 04:54 Height (Feet): 5 Height (Inches): 1.00 Weight (Pounds): 82 Objective Vital Signs General Appearance: ++ cachectic, chronically ill HEENT: normocephalic, atraumatic ++ trach Resp: other -. vent ++ Cardiovascular: regular rate, rhythm, no edema Gastrointestinal: gtube in place, without erythema Rectal: other - Hemoccult positive [place]: back normal, gait/station normal, non-tender Lymphatic: no adenopathy Baltazar Cortes MD Feb 08, 2020 08:42
[2020-02-08] MEDS: Multivitamins W/Minerals 15 ML UDC GT SCH (08:53)
[2020-02-08] MEDS: Sucralfate 1gm tab ORAL SCH ×4 (08:54→20:41)
[2020-02-08] MEDS: Gabapentin 300 MG/6 ML Soln GT SCH ×3 (08:54→17:42)
[2020-02-08] MEDS: Ascorbic Acid 500mg tab GT SCH (08:54)
[2020-02-08] MEDS: Midodrine 10mg tab GT SCH ×3 (08:55→17:42)
[2020-02-08] MEDS: Thiamine 100mg tab GT SCH (08:55)
[2020-02-08] MEDS: Pantoprazole Inj IVP SCH ×2 (08:56→20:41)
[2020-02-08] MEDS: D5 1/2NS 1,000 ML IV SCH ×2 (10:19→20:43)
--- NOTE | 2020-02-08 10:20 | Infectious Diseases Prog Note ---
Assessment/Plan 39yo F with: Severe Sepsis Fever, recurrent; SP Leukocytosis; recurrent; mild UTI -02/04 CXR: Bilateral mostly interstitial opacities; suspect largely chronic althoughthere may be an acute component at the left lung base. The latter does appear somewhat improved since the previous exam. -02/02 sp cx S. marcences (R ancef, CTX, mami; I Levo; S Genta, Ceftazidime, Cefepime, bactrim), GNR #2 -02/01 CXR: Interval development of retrocardiac airspace opacities which could represent atelectasis versus developing consolidation. u/a wbc 5-10, nit neg, leuk +2; -01/28 CXR: Subtle reticular nodular opacities in the left apex which may be related to scarring versus acute small airway disease/bronchitis CT c/abd/p wo: Study substantially limited due to lack of IV contrast. Findings most compatible with ileus and probable infectious or inflammatory enteritis or enterocolitis. Large low-attenuation pelvic fluid of uncertain significance, potentially reactive.Appendix not identified. Percutaneous gastrostomy tube adequately positioned in the stomach. Rectal tube. Urinary bladder wall thickening could be incidental, due to high outlet pressures, or could represent cystitis.Cholecystectomy. -01/27 u/a no pyuria, nit +, leuk +3; ucx >100k CRE K, pna (S Gentamycin), P . miriabilis, MDR P, fluorensces (I Gentamycin) CXR: no acute disease Bc xNTD -01/26 Bcx Neg -01/13 CXR: no acute disease -01/12 u/a wbc tnct, nit neg, latrell +3; ucx >100k C. tropicalis Bcx NTD Severe Cdiff colitis -01/30 Cdif toxin a/b neg -01/06 Cdif toxin + 01/27 KUB:Severely dilated small bowel loop in the central abdomen could reflect obstruction. Diffusely fluid distended colon. -01/13 KUB: no acute findings Recurrent GIB 01/06 u/aneg 12/30 BCx 1/2 +CONS, likely contaminant 12/30 UA neg, COVID rapid Ag neg 12/30 CXR 1. Density overlying the bilateral lung apices. May represent pleural thickening, multifocal airspace opacities, versus summation artifact. 01/01 BCx Neg 01/02 BCx Neg Acute blood loss anemia Possible pna on CXR, sp rx Seizure episode -01/10 CT head: Third and lateral ventriculomegaly. Associated enlargement of the extra axial CSF spaces indicates that this is probably due to central volume loss, but the possibility of hydrocephalus should also be considered. At the degree of volume loss is considerably out of proportion to patient's age. Periventricular deep white matter low-attenuation. Probably on the basis of microvascular ischemic change but given patient's age the possibility of demyelinating disease should be considered as well. 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 [facility] will continue to follow. Subjective Allergies: Coded Allergies: CARBAMAZEPINE (Verified Allergy, Unknown, 12/31/19) LORAZEPAM (Verified Allergy, Unknown, 12/31/19) Afebrile Leukocytosis resolved on Vent 35% Objective Last 24 Hour Vital Signs Date Time Temp Pulse Resp B/P (MAP) Pulse Ox O2 Delivery O2 Flow Rate FiO2 02/08/20 08:00 97.9 90 16 100/73 (82) 100 02/08/20 06:30 73 16 35 02/08/20 04:00 30 02/08/20 04:00 97.7 77 16 103/50 (67) 100 02/08/20 04:00 Mechanical Ventilator 02/08/20 03:56 72 14 35 02/08/20 03:51 80 02/08/20 00:00 97.9 64 18 107/61 (76) 100 02/08/20 00:00 Mechanical Ventilator 02/08/20 00:00 30 02/07/20 23:30 63 16 35 02/07/20 23:29 60 02/07/20 20:00 Mechanical Ventilator 02/07/20 20:00 30 02/07/20 20:00 97.9 65 18 109/54 (72) 99 02/07/20 19:47 75 18 35 02/07/20 19:20 74 02/07/20 16:00 99.0 78 19 101/54 (70) 100 02/07/20 16:00 69 02/07/20 16:00 30 02/07/20 16:00 Mechanical Ventilator 02/07/20 15:55 79 15 35 02/07/20 12:36 76 19 35 02/07/20 12:00 73 02/07/20 12:00 98.6 75 18 110/59 (76) 100 02/07/20 12:00 Mechanical Ventilator 02/07/20 12:00 30 02/07/20 10:50 79 22 35 Height (Feet): 5 Height (Inches): 1.00 Weight (Pounds): 82 GEN: NAD on Vent 35% HEENT: NCAT, MMM, EOMI Pulm: Equal chest rise and fall B/L, NO accessory muscle use ABD: Soft, ND Laboratory Tests Test 02/07/20 13:17 02/07/20 17:33 02/08/20 00:30 02/08/20 03:15 POC Whole Blood Glucose Pending Pending Pending White Blood Count 9.2 K/UL (4.8-10.8) Red Blood Count 2.89 M/UL (4.20-5.40) L Hemoglobin 8.7 G/DL (12.0-16.0) L Hematocrit 26.0 % (37.0-47.0) L Mean Corpuscular Volume 90 FL (80-99) Mean Corpuscular Hemoglobin 30.1 PG (27.0-31.0) Mean Corpuscular Hemoglobin Concent 33.5 G/DL (32.0-36.0) Red Cell Distribution Width 14.4 % (11.6-14.8) Platelet Count 475 K/UL (150-450) H Mean Platelet Volume 5.6 FL (6.5-10.1) L Neutrophils (%) (Auto) 62.9 % (45.0-75.0) Lymphocytes (%) (Auto) 21.1 % (20.0-45.0) Monocytes (%) (Auto) 11.5 % (1.0-10.0) H Eosinophils (%) (Auto) 3.4 % (0.0-3.0) H Basophils (%) (Auto) 1.1 % (0.0-2.0) Test 02/08/20 04:54 POC Whole Blood Glucose Pending Current Medications Medications (Trade) Dose Ordered Sig/Villa Route PRN Reason Start Time Stop Time Status Last Admin Dose Admin Acetaminophen (Tylenol) 650 mg Q4H PRN GT Temp >100.5 02/01/20 20:30 03/02/20 20:29 02/05/20 11:43 Ascorbic Acid (Vitamin C) 500 mg DAILY GT 01/28/20 09:30 02/27/20 09:29 02/08/20 08:54 Dextrose/Sodium Chloride 1,000 ml @ 75 mls/hr [id number] IV 01/29/20 13:00 02/27/20 12:59 02/07/20 18:30 Famotidine (Pepcid I.v.) 20 mg Q12HR IVP 01/29/20 21:00 02/28/20 20:59 02/08/20 08:56 Gabapentin (Neurontin) 900 mg TID GT 01/28/20 09:30 02/19/20 09:29 02/08/20 08:54 Gentamicin Protocol (Gentamicin pharmacy to dose) 1 ea DAILY PRN MISC Per rx protocol 02/02/20 17:00 03/03/20 16:59 Gentamicin Sulfate 200 mg/ Sodium Chloride 115 ml @ 115 mls/hr Q24H IVPB 02/02/20 18:00 02/09/20 17:59 02/07/20 18:31 Haloperidol Lactate (Haldol) 5 mg Q6H PRN IM Agitation 01/28/20 09:30 02/15/20 09:29 Levothyroxine Sodium (Synthroid) 50 mcg ACBREAKFAST GT 01/29/20 06:30 02/10/20 06:29 02/08/20 05:56 Loperamide HCl (Imodium) 2 mg Q4H PRN ORAL Diarrhea 02/05/20 10:00 03/06/20 09:59 02/06/20 05:50 Midodrine (Pro-Amatine) 10 mg TID GT 02/07/20 18:00 04/21/20 17:59 02/08/20 08:55 Multivitamins (Multivitamins W/ Minerals 15ml Liquid) 15 ml DAILY GT 01/28/20 09:30 02/27/20 09:29 02/08/20 08:53 Pantoprazole (Protonix) 40 mg EVERY 12 HOURS IVP 01/31/20 09:30 03/01/20 09:29 02/08/20 08:56 Potassium Chloride (K-Dur) 40 meq TWICE A DAY ORAL 02/02/20 18:00 05/02/20 17:59 02/08/20 08:54 Sucralfate (Carafate) 1 gm FOUR TIMES A DAY ORAL 01/30/20 09:00 04/29/20 08:59 02/08/20 08:54 Thiamine HCl (Vitamin B1) 100 mg DAILY GT 01/28/20 09:30 02/27/20 09:29 02/08/20 08:55 Jesus Hanson MD Feb 08, 2020 10:20
--- NOTE | 2020-02-08 11:06 | Pulmonology Progress Note ---
Ivanna Mora SANDBLAST OR SHOTBLAST EQUIPMENT TENDER 02/08/20 1106: Subjective ROS Limited/Unobtainable: No Allergies: Coded Allergies: CARBAMAZEPINE (Verified Allergy, Unknown, 12/31/19) LORAZEPAM (Verified Allergy, Unknown, 12/31/19) All Systems: reviewed and negative except above Subjective in [place] no signs of resp distress on current vent settings BP better , on Midodrine, off Dopamine gtt mild leuk 02/05 , resolved today, no fevers CXR 02/01- Interval development of retrocardiac airspace opacities which could represent atelectasis versus developing consolidation. CXR 02/04 Bilateral mostly interstitial opacities; suspect largely chronic although there may be an acute component at the left lung base. The latter does appear somewhat improved since the previous exam. SCX + Serratia and Pseudomonas venous Duplex BLE NGT Objective Last 24 Hour Vital Signs Date Time Temp Pulse Resp B/P (MAP) Pulse Ox O2 Delivery O2 Flow Rate FiO2 02/08/20 10:30 95 23 35 02/08/20 08:00 92 02/08/20 08:00 Mechanical Ventilator 02/08/20 08:00 30 02/08/20 08:00 97.9 90 16 100/73 (82) 100 02/08/20 06:30 73 16 35 02/08/20 04:00 30 02/08/20 04:00 97.7 77 16 103/50 (67) 100 02/08/20 04:00 Mechanical Ventilator 02/08/20 03:56 72 14 35 02/08/20 03:51 80 02/08/20 00:00 97.9 64 18 107/61 (76) 100 02/08/20 00:00 Mechanical Ventilator 02/08/20 00:00 30 02/07/20 23:30 63 16 35 02/07/20 23:29 60 02/07/20 20:00 Mechanical Ventilator 02/07/20 20:00 30 02/07/20 20:00 97.9 65 18 109/54 (72) 99 02/07/20 19:47 75 18 35 02/07/20 19:20 74 02/07/20 16:00 99.0 78 19 101/54 (70) 100 02/07/20 16:00 69 02/07/20 16:00 30 02/07/20 16:00 Mechanical Ventilator 02/07/20 15:55 79 15 35 02/07/20 12:36 76 19 35 02/07/20 12:00 73 02/07/20 12:00 98.6 75 18 110/59 (76) 100 02/07/20 12:00 Mechanical Ventilator 02/07/20 12:00 30 Intake and Output 02/07/20 02/08/20 19:00 07:00 Intake Total 1537.5 ml 1665 ml Output Total 150 ml 400 ml Balance 1387.5 ml 1265 ml Intake Free Water 200 ml 100 ml IV Total 787.5 ml 1015 ml Tube Feeding 550 ml 550 ml Stool Total 150 ml 400 ml # Voids 3 2 Objective General Appearance: bedridden, pale, chronically ill looking, older than her biological age ; vent dependent female ; on vent SIMV 450-30%-12, PEEP 5 Lines, tubes and drains: trach HEENT: normocephalic, atraumatic Neck: trach - Portex #7, secretions small amount, yellow color, thin consistency Respiratory/Chest: CTAB Cardiovascular/Chest: regular rate, regular rhythm Abdomen: non tender, soft, G tube , rectal tube Genitourinary/Rectal: [place] Extremities: no edema, muscle atrophy Neurologic: abnormal gait, awake, poorly responsive Musculoskeletal: atrophy BLE Skin: multiple tattoos Laboratory Tests 02/07/20 13:17: POC Whole Blood Glucose [Pending] 02/07/20 17:33: POC Whole Blood Glucose [Pending] 02/08/20 00:30: POC Whole Blood Glucose [Pending] 02/08/20 03:15: White Blood Count 9.2, Red Blood Count 2.89L, Hemoglobin 8.7L, Hematocrit 26.0L, Mean Corpuscular Volume 90, Mean Corpuscular Hemoglobin 30.1, Mean Corpuscular Hemoglobin Concent 33.5, Red Cell Distribution Width 14.4, Platelet Count 475H, Mean Platelet Volume 5.6L, Neutrophils (%) (Auto) 62.9, Lymphocytes (%) (Auto) 21.1, Monocytes (%) (Auto) 11.5H, Eosinophils (%) (Auto) 3.4H, Basophils (%) (Auto) 1.1 02/08/20 04:54: POC Whole Blood Glucose [Pending] Current Medications Medications (Trade) Dose Ordered Sig/Villa Route PRN Reason Start Time Stop Time Status Last Admin Dose Admin Acetaminophen (Tylenol) 650 mg Q4H PRN GT Temp >100.5 02/01/20 20:30 03/02/20 20:29 02/05/20 11:43 Ascorbic Acid (Vitamin C) 500 mg DAILY GT 01/28/20 09:30 02/27/20 09:29 02/08/20 08:54 Dextrose/Sodium Chloride 1,000 ml @ 75 mls/hr [id number] IV 01/29/20 13:00 02/27/20 12:59 02/08/20 10:19 Famotidine (Pepcid I.v.) 20 mg Q12HR IVP 01/29/20 21:00 02/28/20 20:59 02/08/20 08:56 Gabapentin (Neurontin) 900 mg TID GT 01/28/20 09:30 02/19/20 09:29 02/08/20 08:54 Gentamicin Protocol (Gentamicin pharmacy to dose) 1 ea DAILY PRN MISC Per rx protocol 02/02/20 17:00 03/03/20 16:59 Gentamicin Sulfate 200 mg/ Sodium Chloride 115 ml @ 115 mls/hr Q24H IVPB 02/02/20 18:00 02/09/20 17:59 02/07/20 18:31 Haloperidol Lactate (Haldol) 5 mg Q6H PRN IM Agitation 01/28/20 09:30 02/15/20 09:29 Levothyroxine Sodium (Synthroid) 50 mcg ACBREAKFAST GT 01/29/20 06:30 02/10/20 06:29 02/08/20 05:56 Loperamide HCl (Imodium) 2 mg Q4H PRN ORAL Diarrhea 02/05/20 10:00 03/06/20 09:59 02/06/20 05:50 Midodrine (Pro-Amatine) 10 mg TID GT 02/07/20 18:00 04/21/20 17:59 02/08/20 08:55 Multivitamins (Multivitamins W/ Minerals 15ml Liquid) 15 ml DAILY GT 01/28/20 09:30 02/27/20 09:29 02/08/20 08:53 Pantoprazole (Protonix) 40 mg EVERY 12 HOURS IVP 01/31/20 09:30 03/01/20 09:29 02/08/20 08:56 Potassium Chloride (K-Dur) 40 meq TWICE A DAY ORAL 02/02/20 18:00 05/02/20 17:59 02/08/20 08:54 Sucralfate (Carafate) 1 gm FOUR TIMES A DAY ORAL 01/30/20 09:00 04/29/20 08:59 02/08/20 08:54 Thiamine HCl (Vitamin B1) 100 mg DAILY GT 01/28/20 09:30 02/27/20 09:29 02/08/20 08:55 Assessment/Plan Assessment/Plan ASSESSMENT VDRF/trach status Sepsis Possible pneumonia UTI recurrent GI bleeding severe C dif colitis Anemia secondary to GI bleeding Aspiration risk Dysphagia, feeding by G-tube Encephalopathy Acute kidney injury likely secondary to dehydration Recurrent bradycardia persistent Hypotension Electrolyte imbalance Severe protein calorie malnutrition Hx of hypertension History of CVA Seizure disorder with witnessed seizure episode 01/07 Psychiatric disorder Presumed scabies, s/p Rx Thrombocytopenia-transient- resolved PLAN OF CARE [place] off Dopamine gtt, BP better with Midodrine only on IVF, vent support, pulm toilet ABG stable on current settings on SIMV mode 450-30-12 PEEP5 , no signs of resp distress on these settings keep settings as is and titrate as needed now tachypneic intermittently CXR 01/27 no acute disease pulm toilet via [facility] CT chest 01/28 - with tree-in-bud nodular opacities in the medial left base and lingula with left bronchial bubbly material suggesting infectious or inflammatory bronchiolitis, likely due to aspiration. Small amount of similar foci seen in the right posterior lower lobe. Mild bronchiectasis and reticulation in the lingula, medial left base, and superior left upper lobe could also be due to chronic infection. CXR 02/01 -Interval development of retrocardiac airspace opacities which could represent atelectasis versus developing consolidation. probably ATX , given no fevers, resolved leukocytosis, no resp distress on current settings CXR 02/04 Bilateral mostly interstitial opacities; suspect largely chronic although there may be an acute component at the left lung base. The latter does appear somewhat improved since the previous exam. no fevers since 02/03 , o leuk resolved pancx-per ID CXR 01/13- no acute findings KUB 01/13- no acute findings UA + yeast , 01/12 UCX +yeast, started on Fluconazole 01/14 as per ID -completed BCX 01/12 NGTD BCX 01/26 and 01/27 NGTD Vanco po was prior dc and switched to Dificid , also on Flagyl per GI -till 01/28 , both extended till , completed inflammatory markers : ESR-42, CRP- wnl WBC smear NGT C dif a/b 01/30 NGT less output from rectal tube UCX 01/27 + Klebs CR- started on Gent per ID recs given prior leukocytosis and fevers SCX 02/02 + Serratia,Pseudomonas abx as per ID recs CT C/ A/P noted ( see results of CT chest above), CT A/P with findings most compatible with ileus and probable infectious or inflammatory enteritis or enterocolitis. off cefepime rapid COVID 19 NGT in ED aspiration precautions Venous Duplex BLE -negative, get SCD ( unable to give a/c given anemia) closely monitor hemodynamic status repeated Venous Duplex BLE NGT heme and GI follows s/p prior EGD 01/01 -> gastric ulcer across G tube site , no active bleeding s/p EGD 01/30 -> gastric ulceration without visible bleeding Protonix IV bid ( changed from Protonix gtt), Carafate GT feeding resumed as per GI , s/p blood tx 01/30 stool OB positive , another pending transfuse to keep Hgb > 7. HH at baseline trend LFT-> trended down, hep panel NGT hx of cirrhosis- per GI management monitor renal parameters, lytes, avoid nephrotoxic IVF BUN trending down, creat stable, likely prerenal due to dehydration replace e/lytes as per nephro recs , P and Mg replaced this am as per nephro monitor volumes seizure precautions, antiepileptic optimized as per neuro recs ammonia 49, fup with further neuro recs EEG - grossly abnormal; mild to mod encephalopathy, single ictal episode CT head no acute IC pathology BP management with current regimen SNF meds supportive care dietary recs s/p 12/31 Rx for presumed scabies with permethrin and Ivermectin, repeated Ivermectin 01/08 case discussed and evaluated by supervising physician Raul Esparza MD 9/24/20 1129: Subjective Allergies: Coded Allergies: CARBAMAZEPINE (Verified Allergy, Unknown, 12/31/19) LORAZEPAM (Verified Allergy, Unknown, 12/31/19) Assessment/Plan Assessment/Plan Patient seen and examined with SANDBLAST OR SHOTBLAST EQUIPMENT TENDER. Agree with above A&P as it reflects our joint deliberations. Ivanna Mora NP Feb 08, 2020 11:06 Raul Esparza MD Feb 08, 2020 11:29
--- NOTE | 2020-02-08 11:26 | Diagnostic Imaging Report ---
Indication: Reason For Exam: DVT Technique: Grayscale and duplex images of the bilateral lower extremity veins Comparison: Of a 2019 Findings: Bilaterally, grayscale and duplex images demonstrate no evidence of intraluminal thrombus. Normal phasic Doppler waveforms, demonstrating normal augmentation response and no evidence of valvular insufficiency. Greater saphenous vein(s) and tibial veins are patent. Normal compressibility. No significant change Impression: Negative for evidence of lower extremity deep venous thrombosis bilaterally
[2020-02-08 12:00] VITALS: BP 141/106
--- NOTE | 2020-02-08 12:35 | General Progress Note ---
Subjective ROS Limited/Unobtainable: No Allergies: Coded Allergies: CARBAMAZEPINE (Verified Allergy, Unknown, 12/31/19) LORAZEPAM (Verified Allergy, Unknown, 12/31/19) Objective Last 24 Hour Vital Signs Date Time Temp Pulse Resp B/P (MAP) Pulse Ox O2 Delivery O2 Flow Rate FiO2 02/08/20 12:00 Mechanical Ventilator 02/08/20 10:30 95 23 35 02/08/20 08:00 92 02/08/20 08:00 Mechanical Ventilator 02/08/20 08:00 30 02/08/20 08:00 97.9 90 16 100/73 (82) 100 02/08/20 06:30 73 16 35 02/08/20 04:00 30 02/08/20 04:00 97.7 77 16 103/50 (67) 100 02/08/20 04:00 Mechanical Ventilator 02/08/20 03:56 72 14 35 02/08/20 03:51 80 02/08/20 00:00 97.9 64 18 107/61 (76) 100 02/08/20 00:00 Mechanical Ventilator 02/08/20 00:00 30 02/07/20 23:30 63 16 35 02/07/20 23:29 60 02/07/20 20:00 Mechanical Ventilator 02/07/20 20:00 30 02/07/20 20:00 97.9 65 18 109/54 (72) 99 02/07/20 19:47 75 18 35 02/07/20 19:20 74 02/07/20 16:00 99.0 78 19 101/54 (70) 100 02/07/20 16:00 69 02/07/20 16:00 30 02/07/20 16:00 Mechanical Ventilator 02/07/20 15:55 79 15 35 02/07/20 12:36 76 19 35 Intake and Output 02/07/20 02/08/20 19:00 07:00 Intake Total 1537.5 ml 1665 ml Output Total 150 ml 400 ml Balance 1387.5 ml 1265 ml Intake Free Water 200 ml 100 ml IV Total 787.5 ml 1015 ml Tube Feeding 550 ml 550 ml Stool Total 150 ml 400 ml # Voids 3 2 Laboratory Tests 02/07/20 13:17: POC Whole Blood Glucose [Pending] 02/07/20 17:33: POC Whole Blood Glucose [Pending] 02/08/20 00:30: POC Whole Blood Glucose [Pending] 02/08/20 03:15: White Blood Count 9.2, Red Blood Count 2.89L, Hemoglobin 8.7L, Hematocrit 26.0L, Mean Corpuscular Volume 90, Mean Corpuscular Hemoglobin 30.1, Mean Corpuscular Hemoglobin Concent 33.5, Red Cell Distribution Width 14.4, Platelet Count 475H, Mean Platelet Volume 5.6L, Neutrophils (%) (Auto) 62.9, Lymphocytes (%) (Auto) 21.1, Monocytes (%) (Auto) 11.5H, Eosinophils (%) (Auto) 3.4H, Basophils (%) (Auto) 1.1 02/08/20 04:54: POC Whole Blood Glucose [Pending] 02/08/20 11:34: POC Whole Blood Glucose 92 Height (Feet): 5 Height (Inches): 1.00 Weight (Pounds): 82 General Appearance: no apparent distress EENT: normal ENT inspection Neck: supple Cardiovascular: normal rate Respiratory/Chest: decreased breath sounds Abdomen: hypoactive bowel sounds Extremities: non-tender Assessment/Plan Problem List: (1) G tube feedings ICD Codes: Z93.1 - Gastrostomy status SNOMED: 453240329, 726442604, 754055538 (2) GI bleed ICD Codes: K92.2 - Gastrointestinal hemorrhage, unspecified SNOMED: 22533036 (3) Sepsis ICD Codes: A41.9 - Sepsis, unspecified organism SNOMED: 44123739 (4) Pneumonia ICD Codes: J18.9 - Pneumonia, unspecified organism SNOMED: 637974816 Status: stable, other - Patient is now hypotensive before over 46 she will receive 500 cc of normal saline bolus to be repeated blood pressure remained below 90 further management will be decided following the boluses treatment repeat laboratory tests will be done in a.m. GEM MCKAY MD Assessment/Plan: s/p EGD gastric ulcer monitor H&H C. Diff positive>> now neg rectal bleed last night and now it has resolved resume GTF prn imodium carafate and ppi will fu Satish Carrillo MD Feb 08, 2020 12:35
--- NOTE | 2020-02-08 13:02 | Nephrology Progress Note ---
Assessment/Plan Problem List: (1) RICHARD (acute kidney injury) (2) Dehydration (3) Anemia (4) GI bleed (5) Malnutrition (6) Seizure disorder (7) Electrolyte imbalance Assessment Renal failure, in the form of prerenal azotemia, most likely secondary to GI bleed GI bleed, leading to severe anemia Sepsis, pneumonia Chronic tracheostomy, ventilator dependent History of CVA History of seizure disorder History of psychiatric disorder Severe malnutrition Electrolyte abnormalities Plan February 07: No chemistry panel done today. Remains stable from renal standpoint of view. Patient is full code. Order lab tomorrow. February 06: No chemistry panel drawn today. Clinically remains stable from renal standpoint of view. Patient is full code. February 05: Phosphorus and magnesium supplement given. Stable from renal standpoint of view. Remains full code February 04: No chemistry panel done today. Remains stable from renal standpoint of view. Continue to monitor renal parameters. February 03: Labs reviewed. Renal parameters stable. Continue her consultants. February 02: Lab reviewed. Low phosphorus low magnesium corrections ordered. Continue to monitor electrolytes and renal parameters. February 01: Lab reviewed. Low phosphorus and low magnesium replaced. Low potassium replaced. Continue to monitor electrolytes. Continue per consultants. January 31: Lab reviewed. Hemoglobin higher. Renal parameters stable. Potassium and phosphorus supplement given. January 30: Labs reviewed. Low mag low phosphorus and low potassium replaced. White blood cells 16,000 today. Remains full code. Continue to monitor hemoglobin and hematocrit and electrolytes. January 29: Labs reviewed. Magnesium, potassium, phosphorus supplement given. White blood cells down to 22,000. Remains full code. Continue per consultan ts. RN reports rectal bleed. Hemoglobin drifting down. Defer management to director of curriculum who is already on the case. January 28: Status quo. Electrolyte abnormalities noted. Mag Phos and potassium supplement IV given. Renal parameters stable. Continue per consultants. Leukocytosis persists. January 27: Significant rise in white blood cell counts. Hypotensive. Now in ICU. Will give albumin bolus. Continue to monitor renal parameters. Continue per ID advice. January 26: Continue to monitor renal parameters. Patient remains on ventilator. Patient is full code. Continue per consultants. January 25: Status quo. Labs reviewed. Continue per consultants. January 24: Status unchanged. Labs reviewed. Remains stable from renal standpoint of view. January 23: Back in [place]. Stable from renal standpoint of view. Continue per consultants. January 22: Patient in ICU now. Vital signs and heart rate and blood pressure appears to be stable. Patient had an episode of bradycardia but it was resolved. TSH level today is very low will cut down on Synthroid dose. January 21: Today's labs are reviewed. Stable renal parameters. Continue per consultants. January 20: Labs reviewed. Renal parameters stable. January 19: Labs reviewed. Stable from renal standpoint. January 18: No labs done today. Continue per consultants. Medications reviewed. January 17: Late note entry due to system problem [place] the [facility] [place].Chemistry panel reviewed. Stable from renal standpoint of view. Continue per current management. January 16: No can panel today. Check lab tomorrow. Remains stable from renal standpoint of view. January 15: Lab reviewed. Renal parameters stable. January 14: Lab reviewed. Renal parameters stable. January 13: Labs reviewed. Stable from renal standpoint of view. January 12: Labs reviewed. Stable from renal standpoint of view January 11: No labs drawn today stable from renal standpoint of view January 10: Labs reviewed. Potassium supplement given. Continue per shahida harmon. January 09: Lab reviewed. Potassium supplement given. IV fluid discontinued. January 08: Lab reviewed. Renal parameters stable. Continue per consultants. January 07: Lab reviewed. Renal parameters stable. Continue per consultants. January 06: Lab reviewed. Stable from renal standpoint of view. January 05: Labs reviewed. Stable from renal standpoint of view. Continue per consultants. January 04: No labs drawn today. Will check labs tomorrow. Continue per consultants. January 03: Lab reviewed. Renal parameters stable. IV fluid discontinued. High LFTs declining. Continue same. January 02: Lab reviewed. Renal parameters stable. Continue per PMD and consultants. LFTs remain elevated. Continue to monitor. Continue slow hydration Discontinue blood pressure medications as her blood pressure is low Discontinue diuretics Monitor renal parameters Transfusion as needed GI evaluation Correct electrolyte abnormalities Check B12 level, folate, and thyroid function tests: Results noted Subjective ROS Limited/Unobtainable: Yes Objective Objective Last 24 Hour Vital Signs Date Time Temp Pulse Resp B/P (MAP) Pulse Ox O2 Delivery O2 Flow Rate FiO2 02/08/20 12:00 Mechanical Ventilator 02/08/20 10:30 95 23 35 9/24/20 08:00 92 02/08/20 08:00 Mechanical Ventilator 02/08/20 08:00 30 02/08/20 08:00 97.9 90 16 100/73 (82) 100 02/08/20 06:30 73 16 35 02/08/20 04:00 30 02/08/20 04:00 97.7 77 16 103/50 (67) 100 02/08/20 04:00 Mechanical Ventilator 02/08/20 03:56 72 14 35 02/08/20 03:51 80 02/08/20 00:00 97.9 64 18 107/61 (76) 100 02/08/20 00:00 Mechanical Ventilator 02/08/20 00:00 30 02/07/20 23:30 63 16 35 02/07/20 23:29 60 02/07/20 20:00 Mechanical Ventilator 02/07/20 20:00 30 02/07/20 20:00 97.9 65 18 109/54 (72) 99 02/07/20 19:47 75 18 35 02/07/20 19:20 74 02/07/20 16:00 99.0 78 19 101/54 (70) 100 02/07/20 16:00 69 02/07/20 16:00 30 02/07/20 16:00 Mechanical Ventilator 02/07/20 15:55 79 15 35 Intake and Output 02/07/20 02/08/20 19:00 07:00 Intake Total 1537.5 ml 1665 ml Output Total 150 ml 400 ml Balance 1387.5 ml 1265 ml Intake Free Water 200 ml 100 ml IV Total 787.5 ml 1015 ml Tube Feeding 550 ml 550 ml Stool Total 150 ml 400 ml # Voids 3 2 No chemistry panel done today laboratory Tests 02/07/20 13:17: POC Whole Blood Glucose [Pending] 02/07/20 17:33: POC Whole Blood Glucose [Pending] 02/08/20 00:30: POC Whole Blood Glucose [Pending] 02/08/20 03:15: White Blood Count 9.2, Red Blood Count 2.89L, Hemoglobin 8.7L, Hematocrit 26.0L, Mean Corpuscular Volume 90, Mean Corpuscular Hemoglobin 30.1, Mean Corpuscular Hemoglobin Concent 33.5, Red Cell Distribution Width 14.4, Platelet Count 475H, Mean Platelet Volume 5.6L, Neutrophils (%) (Auto) 62.9, Lymphocytes (%) (Auto) 21.1, Monocytes (%) (Auto) 11.5H, Eosinophils (%) (Auto) 3.4H, Basophils (%) (Auto) 1.1 02/08/20 04:54: POC Whole Blood Glucose [Pending] 02/08/20 11:34: POC Whole Blood Glucose 92 Height (Feet): 5 Height (Inches): 1.00 Weight (Pounds): 82 General Appearance: no apparent distress EENT: other - Trach to vent Cardiovascular: tachycardia Respiratory/Chest: decreased breath sounds Abdomen: soft Objective No change Chivo Holloway MD Feb 08, 2020 13:02
--- NOTE | 2020-02-08 13:35 | General Progress Note ---
Subjective Constitutional: Reports: malaise HEENT: Reports: no symptoms Cardiovascular: Reports: no symptoms, other Respiratory: Reports: no symptoms Gastrointestinal/Abdominal: Reports: no symptoms, constipated Genitourinary: Reports: no symptoms Neurologic/Psychiatric: Reports: no symptoms Hematologic/Lymphatic: Reports: no symptoms Allergies: Coded Allergies: CARBAMAZEPINE (Verified Allergy, Unknown, 12/31/19) LORAZEPAM (Verified Allergy, Unknown, 12/31/19) Objective Last 24 Hour Vital Signs Date Time Temp Pulse Resp B/P (MAP) Pulse Ox O2 Delivery O2 Flow Rate FiO2 02/08/20 12:00 30 02/08/20 12:00 Mechanical Ventilator 02/08/20 12:00 98.8 86 16 141/106 (118) 99 02/08/20 12:00 104 02/08/20 10:30 95 23 35 02/08/20 08:00 92 02/08/20 08:00 Mechanical Ventilator 02/08/20 08:00 30 02/08/20 08:00 97.9 90 16 100/73 (82) 100 02/08/20 06:30 73 16 35 02/08/20 04:00 30 02/08/20 04:00 97.7 77 16 103/50 (67) 100 02/08/20 04:00 Mechanical Ventilator 02/08/20 03:56 72 14 35 02/08/20 03:51 80 02/08/20 00:00 97.9 64 18 107/61 (76) 100 02/08/20 00:00 Mechanical Ventilator 02/08/20 00:00 30 02/07/20 23:30 63 16 35 02/07/20 23:29 60 02/07/20 20:00 Mechanical Ventilator 02/07/20 20:00 30 02/07/20 20:00 97.9 65 18 109/54 (72) 99 02/07/20 19:47 75 18 35 02/07/20 19:20 74 02/07/20 16:00 99.0 78 19 101/54 (70) 100 02/07/20 16:00 69 02/07/20 16:00 30 02/07/20 16:00 Mechanical Ventilator 02/07/20 15:55 79 15 35 Intake and Output 02/07/20 02/08/20 19:00 07:00 Intake Total 1537.5 ml 1665 ml Output Total 150 ml 400 ml Balance 1387.5 ml 1265 ml Intake Free Water 200 ml 100 ml IV Total 787.5 ml 1015 ml Tube Feeding 550 ml 550 ml Stool Total 150 ml 400 ml # Voids 3 2 Laboratory Tests 02/07/20 17:33: POC Whole Blood Glucose [Pending] 02/08/20 00:30: POC Whole Blood Glucose [Pending] 02/08/20 03:15: White Blood Count 9.2, Red Blood Count 2.89L, Hemoglobin 8.7L, Hematocrit 26.0L, Mean Corpuscular Volume 90, Mean Corpuscular Hemoglobin 30.1, Mean Corpuscular Hemoglobin Concent 33.5, Red Cell Distribution Width 14.4, Platelet Count 475H, Mean Platelet Volume 5.6L, Neutrophils (%) (Auto) 62.9, Lymphocytes (%) (Auto) 21.1, Monocytes (%) (Auto) 11.5H, Eosinophils (%) (Auto) 3.4H, Basophils (%) (Auto) 1.1 02/08/20 04:54: POC Whole Blood Glucose [Pending] 02/08/20 11:34: POC Whole Blood Glucose 92 Height (Feet): 5 Height (Inches): 1.00 Weight (Pounds): 82 General Appearance: alert, lethargic, confused, cachetic EENT: normal ENT inspection Neck: supple Cardiovascular: normal rate, regular rhythm, no gallop/murmur, no JVD, bradycardia Respiratory/Chest: lungs clear, normal breath sounds, no respiratory distress, no accessory muscle use Abdomen: normal bowel sounds, non tender, soft, no organomegaly, no mass Extremities: other - Patient right thigh was found warm tender swollen. He is wheezing exudate venous duplex scan and x-ray of the fever were ordered results are pending however this event will consider the possibility of discharging the patient today Edema: 3+ Leg (R) Neurologic: abnormal gait, aphasia Assessment/Plan Problem List: (1) Pneumonia ICD Codes: J18.9 - Pneumonia, unspecified organism SNOMED: 738120691 (2) Sepsis ICD Codes: A41.9 - Sepsis, unspecified organism SNOMED: 61606807 (3) GI bleed ICD Codes: K92.2 - Gastrointestinal hemorrhage, unspecified SNOMED: 98644227 (4) Anemia ICD Codes: D64.9 - Anemia, unspecified SNOMED: 260558209 (5) Seizure disorder ICD Codes: G40.909 - Epilepsy, unspecified, not intractable, without status epilepticus SNOMED: 964216798 (6) Malnutrition ICD Codes: E46 - Unspecified protein-calorie malnutrition SNOMED: 18650547 (7) Thrombocytopenia ICD Codes: D69.6 - Thrombocytopenia, unspecified SNOMED: 846704472 Status: stable, other - Patient is now hypotensive before over 47 she will receive 500 cc of normal saline bolus to be repeated blood pressure remained below 90 further management will be decided following the boluses treatment repeat laboratory tests will be done in a.jagdeep MCKAY MD Status Narrative Patient was scheduled to discharge to be discharged today however the swelling on her right thigh with edema and the tenderness and the possibility of DVT or fracture or repeat or as though osteoporotic fracture cannot be excluded at the present time we will wait for the results of the x-ray and the venous duplex scan prior to decide the appropriate measurement repeat laboratory tests will be done in a.mDominik MCKAY MD Assessment/Plan: Glenny Guadarrama MD Feb 08, 2020 13:35
--- NOTE | 2020-02-08 13:42 | Surgery Progress Note ---
Surgery Progress Note Subjective Additional Comments ill appearing no n/v labs reviewed stable Objective Last 24 Hour Vital Signs Date Time Temp Pulse Resp B/P (MAP) Pulse Ox O2 Delivery O2 Flow Rate FiO2 02/08/20 12:00 30 02/08/20 12:00 Mechanical Ventilator 02/08/20 12:00 98.8 86 16 141/106 (118) 99 02/08/20 12:00 104 02/08/20 10:30 95 23 35 02/08/20 08:00 92 02/08/20 08:00 Mechanical Ventilator 02/08/20 08:00 30 02/08/20 08:00 97.9 90 16 100/73 (82) 100 02/08/20 06:30 73 16 35 02/08/20 04:00 30 02/08/20 04:00 97.7 77 16 103/50 (67) 100 02/08/20 04:00 Mechanical Ventilator 02/08/20 03:56 72 14 35 02/08/20 03:51 80 02/08/20 00:00 97.9 64 18 107/61 (76) 100 02/08/20 00:00 Mechanical Ventilator 02/08/20 00:00 30 02/07/20 23:30 63 16 35 02/07/20 23:29 60 02/07/20 20:00 Mechanical Ventilator 02/07/20 20:00 30 02/07/20 20:00 97.9 65 18 109/54 (72) 99 02/07/20 19:47 75 18 35 02/07/20 19:20 74 02/07/20 16:00 99.0 78 19 101/54 (70) 100 02/07/20 16:00 69 02/07/20 16:00 30 02/07/20 16:00 Mechanical Ventilator 02/07/20 15:55 79 15 35 I&O Intake and Output 02/07/20 02/08/20 19:00 07:00 Intake Total 1537.5 ml 1665 ml Output Total 150 ml 400 ml Balance 1387.5 ml 1265 ml Intake Free Water 200 ml 100 ml IV Total 787.5 ml 1015 ml Tube Feeding 550 ml 550 ml Stool Total 150 ml 400 ml # Voids 3 2 Dressing: other Wound: other Cardiovascular: RSR Respiratory: decreased breath sounds Abdomen: soft, non-tender, present bowel sounds Extremities: no tenderness, no cyanosis Laboratory Tests Test 02/07/20 17:33 02/08/20 00:30 02/08/20 03:15 02/08/20 04:54 POC Whole Blood Glucose Pending Pending Pending White Blood Count 9.2 K/UL (4.8-10.8) Red Blood Count 2.89 M/UL (4.20-5.40) L Hemoglobin 8.7 G/DL (12.0-16.0) L Hematocrit 26.0 % (37.0-47.0) L Mean Corpuscular Volume 90 FL (80-99) Mean Corpuscular Hemoglobin 30.1 PG (27.0-31.0) Mean Corpuscular Hemoglobin Concent 33.5 G/DL (32.0-36.0) Red Cell Distribution Width 14.4 % (11.6-14.8) Platelet Count 475 K/UL (150-450) H Mean Platelet Volume 5.6 FL (6.5-10.1) L Neutrophils (%) (Auto) 62.9 % (45.0-75.0) Lymphocytes (%) (Auto) 21.1 % (20.0-45.0) Monocytes (%) (Auto) 11.5 % (1.0-10.0) H Eosinophils (%) (Auto) 3.4 % (0.0-3.0) H Basophils (%) (Auto) 1.1 % (0.0-2.0) Test 02/08/20 11:34 POC Whole Blood Glucose 92 MG/DL (74-106) Plan Problems: (1) Pneumonia (2) Sepsis Assessment & Plan: leukocytosis anemia lactic acidosis agree with GI recommend EGD planned for 12/31 hold feeding for now trend h/h monitor for bleeding no acute hemorrhage will be available in event needs exploration for hemostasis prbc as per heme thank you will follow with recs cont abx worsening wbc wbc trending down comfortable appearing no n/v hypotensive in ICU again worse pending CT results - noted PICC ordered improving wbc improved labs and micro trending labs improved wbc resolved prognosis guarded Pt presented on admission in emaciated state. Pt has tracheostomy and GT. NO skin concerns noted to skin under collar of trach. NO erythema or evidence of skin erosion at GT site. Pt noted to have scaly pimple-like rash with webbing noted to R and L axillae, undersides of both breasts, Bilat groin and lower back. Tracking and webbing noted to hands and feet. Pt restless and scratching at skin. Non-Blanching erythema without induration or fluctuance noted to R and L hips and trochanteric areas.Non-blanching erythema noted along spine. Non-Blanching erythema without induration noted to Sacrum. Non-Blanching erythema noted to R and L Malleoli and both heels. Tx.Plan: Please apply Cavilon Skin Barrier to each bony Prominences at risks f or Skin Breakdown. Cover each area with Optifoam drsgs. Change every 7 days and prn. Apply Moisture Barrier Paste to Sacrum. Cover with Optifoam drsg. Change every 3 days and prn. Reposition at least every 2hours or as tolerated. Off-load heels with pillow. APM/EMELI Mattress overlay. improving cont current care plan There is marked enlargement of the third and lateral ventricles and extra axial CSF spaces, in particular the former. There is considerable periventricular deep white matter low-attenuation. Otherwise normal mobley-white differentiation. No acute hemorrhage or edema. No mass effect nor midline shift. Visualized orbits and sinuses are unremarkable. The calvarium is intact Impression: Third and lateral ventriculomegaly. Associated enlargement of the extra axial CSF spaces indicates that this is probably due to central volume loss, but the possibility of hydrocephalus should also be considered. At the degree of volume loss is considerably out of proportion to patient's age. Correlate with clinical history Periventricular deep white matter low-attenuation. Probably on the basis of microvascular ischemic change but given patient's age the possibility of demyelinating disease should be considered as well. Negative for acute intracranial bleed or mass effect ABDOMEN: Liver: Unremarkable. Gallbladder and bile ducts: Cholecystectomy. No ductal dilation. Pancreas: Unremarkable. No ductal dilation. Spleen: Unremarkable. No splenomegaly. Adrenals: Unremarkable. No mass. Kidneys and ureters: Unremarkable. No obstructing stones. No hydronephrosis. Stomach and bowel: Operative bowel findings. Diffuse small bowel wall thickening with areas of distention and fluid-filled colonic loops. No clear focal transition point to suggest small bowel obstruction. PELVIS: Appendix: Appendix not identified. Bladder: Urinary bladder wall thickening could be incidental, due to high outlet pressures, or could represent cystitis. No stones. Reproductive: Unremarkable as visualized. ABDOMEN and PELVIS: Intraperitoneal space: Large low-attenuation pelvic fluid of uncertain significance, potentially reactive. No free air. Bones/joints: No acute fracture. No dislocation. Soft tissues: Bilateral buttock injection granulomas. Vasculature: Unremarkable. No abdominal aortic aneurysm. Lymph nodes: Unremarkable. No enlarged lymph nodes. Tubes, lines and devices: Percutaneous gastrostomy tube adequately positioned in the stomach. Rectal tube. Other findings: No perforation seen. IMPRESSION: 1. Study substantially limited due to lack of IV contrast. 2. Findings most compatible with ileus and probable infectious or inflammatory enteritis or enterocolitis. 3. Large low-attenuation pelvic fluid of uncertain significance, potentially reactive. 4. Appendix not identified. 5. Percutaneous gastrostomy tube adequately positioned in the stomach. Rectal tube. 6. Urinary bladder wall thickening could be incidental, due to high outlet pressures, or could represent cystitis. 7. Cholecystectomy. (3) GI bleed (4) G tube feedings Assessment & Plan: DAILY ESTIMATED NEEDS: Needs based on Underweight, critical care 37.3kg 30-40 kcals/kg 6920-6768 total kcals 1.25-2 g protein/kg 47-75 g total protein 25-35 mL/kg 933-1306 total fluid mLs NUTRITION DIAGNOSIS: Increased kcal and pro needs r/t underweight status as evidenced by BMI 14.1, pt is 68% of ideal body weight w/ generalized severe wasting, trach and peg dep. CURRENT TF:Vital AF 1.2 @55 x20 hrs ENTERAL NUTRITION RECOMMENDATIONS: Vital AF 1.2 @ 55ml/hr x20 hrs to provide 1100ml 1320kcal 83g prot, 892ml free water - Rec to continue elemental TF formula while stool C-diff positive, +LBM - HOLD 1HR BEFORE AND AFTER SYNTHROID MEDS - Flush per MD. HOB over 30 degrees ADDITIONAL RECOMMENDATIONS: 1) Per SNF: 5'4" and 81# Maintain calibrated bed scale wts w/ added P200 mattress 2) Lytes daily madhav w/ loose stools, replete as needed 3) Skin integrity: Continue BRIAN VIA GT BID + Vit C 4) Accuchecks for Hypoglycemia 5) Add probiotics for stool C-diff+ . George Woods Feb 08, 2020 13:42
[2020-02-08] MEDS ORDERED: NS 275ml ONE (14:14)
[2020-02-08 16:00] VITALS: BP 104/50
[2020-02-08] MEDS: GENTAMICIN IVPB SCH (17:45)
[2020-02-08] MEDS: NS IVPB SCH (17:45)
[2020-02-08 19:00] LABS: ANION GAP 5 mmol/L (5-15); BLOOD UREA NITROGEN 4 mg/dL (7-18); CALCIUM 8.3 MG/DL (8.5-10.1); CARBON DIOXIDE 28 MMOL/L (21-32); CHLORIDE 105 MMOL/L (98-107); CREATININE 0.3 MG/DL (0.55-1.30); POTASSIUM 4.1 MMOL/L (3.5-5.1); SODIUM 138 MMOL/L (136-145)
[2020-02-08 20:00] VITALS: BP 107/45
[2020-02-08] MEDS: Acetaminophen 650mg/20.3ml GT PRN (20:41)
[2020-02-09] VITALS: BP 109/48
[2020-02-09 04:00] VITALS: BP 122/62
[2020-02-09 04:23] LABS: BASOPHILS % (AUTO) 1.7 % (0.0-2.0); EOSINOPHILS % (AUTO) 1.9 % (0.0-3.0); HEMATOCRIT 25.5 % (37.0-47.0); HEMOGLOBIN 8.4 G/DL (12.0-16.0); MEAN CORPUSCULAR VOLUME 90 FL (80-99); NEUTROPHILS % (AUTO) 69.3 % (45.0-75.0); PLATELET COUNT 563 K/UL (150-450); RED BLOOD COUNT 2.83 M/UL (4.20-5.40); RED CELL DISTRIBUTION WIDTH 14.1 % (11.6-14.8); WHITE BLOOD COUNT 12.3 K/UL (4.8-10.8)
[2020-02-09 04:47] LABS: ALANINE AMINOTRANSFERASE 8 U/L (12-78); ALBUMIN 1.6 G/DL (3.4-5.0); ALBUMIN/GLOBULIN RATIO 0.4 (1.0-2.7); ALKALINE PHOSPHATASE 65 U/L (46-116); ANION GAP 5 mmol/L (5-15); ASPARTATE AMINO TRANSFERASE 11 U/L (15-37); BILIRUBIN,TOTAL 0.2 MG/DL (0.2-1.0); BLOOD UREA NITROGEN 6 mg/dL (7-18); CALCIUM 7.8 MG/DL (8.5-10.1); CARBON DIOXIDE 29 MMOL/L (21-32); CHLORIDE 104 MMOL/L (98-107); CREATININE 0.3 MG/DL (0.55-1.30); PHOSPHORUS 2.2 MG/DL (2.5-4.9); POTASSIUM 3.9 MMOL/L (3.5-5.1); SODIUM 138 MMOL/L (136-145)
[2020-02-09 08:00] VITALS: BP 98/55
--- NOTE | 2020-02-09 08:38 | Hematology/Onc Progress Note ---
Assessment/Plan Assessment/Plan # Anemia rule out underlying gi bleed --> Dr. Carrillo has been consulted-->endosco gastric ulceration --> trend hgb 7-->7.4-->7.9-->8.1->9.6-->8.5->9.1-->10-->11-->10.3-->10.4-->11->9.8-->7.4 ->9-->10.5-->9.1-->8.7-->8.4 --> anemia panel ordered-->reviewed --> prn transfusion --> protonix started # Leukocytosis is likely related to pna on imaging --> abx has been started --> if wbc worsens, consider abx vanc/zosyn--> ceftriaxone-->vanc->fluc/fl agyl/vanc-->flagyl/fidoxomicin->vanc/cefepime/flagyl-->gentamcinflagyl --> smear is noted --> wbc 25-->15-->14-->16->7.6-->12-->20->13->11->14-->33-->16->8->11-->12 --> pressors prn # Thrombocytopenia med related v labs error --> plt trend 167-->61-->227->373->457 --> meds have been reviewed --> no hep or lovenox # Sepsis --> on abx for pna --> pressors as needed --> fluids as per pcp for hypotension # Pneumonia --> pulm, Dr. 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 senior billing consultant care, will follow Subjective Respiratory: Denies: no symptoms, cough, shortness of breath, SOB with excertion, SOB at rest, sputum, wheezing, other Gastrointestinal/Abdominal: Denies: no symptoms, abdomen distended, abdominal pain, black stools, tarry stools, blood in stool, constipated, diarrhea, difficulty swallowing, nausea, poor appetite, poor fluid intake, rectal bleeding, vomiting, other Genitourinary: Denies: no symptoms, burning, discharge, frequency, flank pain, hematuria, incontinence, pain, urgency, other Neurologic/Psychiatric: Denies: no symptoms, anxiety, depressed, emotional problems, headache, numbness, paresthesia, pre-existing deficit, seizure, tingling, tremors, weakness, other Endocrine: Denies: no symptoms, excessive sweating, flushing, intolerance to cold, intolerance to heat, increased hunger, increased thirst, increased urine, unexplained weight gain, unexplained weight loss, other Allergies: Coded Allergies: CARBAMAZEPINE (Verified Allergy, Unknown, 12/31/19) LORAZEPAM (Verified Allergy, Unknown, 12/31/19) Subjective 01/01 altered, trach, no bleedin wbc improved on abx, seen by gi 01/02 egd study noted, also with plts 61k, have vitaly Armendariz Rn, will recheck cbc 01/03 remains agitated, vitaly rn, no bleeding, cbc noted as well as id recs 01/04 on vent, with melena overnight, no bleeding, vitaly rn, labs reviewed 01/06 on vent, remains agitated, no bleeding, vitaly rn, smear is noted 01/07 on vent, restless, asymptomatic, noncooperative 01/[address] John obtained, reviewed, meds adjusted, eeg pending 01/09 labs noted, no bleeding, ativan has been discontinued, meds reviewed 01/10 trach to vent, agitated, with wrist restraints, no major changes, no bleeding 01/11 labs are reviewed, on trach to vent, no bleeding, agitated overnight, no complaints 01/13 labs noted, no bleeding, is on vent/trach, no bleeding, vitaly rn, labs are noted 01/14 labs are noted, no bleeding, remains on v/t, remains agitated, no bleeding 01/15 is c.diff positive, wbc higher at 21k, labs noted, on abx, reviewed gi, id recs 01/16 remains on vent, wbc is improved, in sr, as abx per id 01/17 recieved dopamine, tube feeds, on soft restraints, no bleeding, vitaly longoria 01/18 labs are noted, no bleeding, vitaly rn, no major changes 01/20 on dopamine gtt, with restraints, no major changes, labs noted 01/21 labs reviewed, no bleeding, vitaly rn, no major changes 01/22 transferred to icu for higher loc, dopamine on hold as bp is good, have increased Synthroid 01/23 labs are pending, meds noted, no bleeding, dopamine gtt ongoing, cbc noted 01/24 still nv, no bleeding, labs reviewed, vitaly rn, with rectal tube in place, on dopamine gtt 01/25 is on bipap, nv, no bleeding, remains on low dose pressorm hgb 11 01/27 on dopamine, hr was elevated overnight, cards aware 01/28 on vent, with ivfs running, rectal tube with red blood noted, consider gi eval 01/29 on vent, labs reviewed, wbc 22, hgb 8.4, on abx currently, vanc/flagyl/cefepime 02/02 labs reviewed, no bleeding, on vent, no night sweats, wbc improved 02/03 is on gtube feeds, with trach to vent, oxygen as needed, labs wbc better 02/04 nv, is on gt, on vent, no bleeding, labs are noted, guarded prognosis 02/05 labs are noted, nv, is on gt feeds, no bleeding, abx as needed 02/06 labs reviewed, is on tube feeds, on vent, nv, no bleeding 02/07 labs are noted, no bleeding, trach/to vent, wth gtube, meds reviewed 02/08 very agitated, no bleeding, med noted, no night sweats, in restraints Objective Objective Current Medications Medications (Trade) Dose Ordered Sig/Villa Route PRN Reason Start Time Stop Time Status Last Admin Dose Admin Acetaminophen (Tylenol) 650 mg Q4H PRN GT Temp >100.5 02/01/20 20:30 03/02/20 20:29 02/08/20 20:41 Ascorbic Acid (Vitamin C) 500 mg DAILY GT 01/28/20 09:30 02/27/20 09:29 02/08/20 08:54 Clonazepam (KlonoPIN) 1 mg EVERY 8 HOURS ORAL 02/08/20 22:00 02/15/20 21:59 Dextrose/Sodium Chloride 1,000 ml @ 75 mls/hr [id number] IV 01/29/20 13:00 02/27/20 12:59 02/08/20 20:43 Famotidine (Pepcid I.v.) 20 mg Q12HR IVP 01/29/20 21:00 02/28/20 20:59 02/08/20 20:41 Gabapentin (Neurontin) 900 mg TID GT 01/28/20 09:30 02/19/20 09:29 02/08/20 17:42 Gentamicin Protocol (Gentamicin pharmacy to dose) 1 ea DAILY PRN MISC Per rx protocol 02/02/20 17:00 03/03/20 16:59 Gentamicin Sulfate 200 mg/ Sodium Chloride 115 ml @ 115 mls/hr Q24H IVPB 02/02/20 18:00 02/09/20 17:59 02/08/20 17:45 Haloperidol Lactate (Haldol) 5 mg Q6H PRN IM Agitation 01/28/20 09:30 02/15/20 09:29 Levothyroxine Sodium (Synthroid) 50 mcg ACBREAKFAST GT 01/29/20 06:30 02/10/20 06:29 02/09/20 06:03 Loperamide HCl (Imodium) 2 mg Q4H PRN ORAL Diarrhea 02/05/20 10:00 03/06/20 09:59 02/09/20 06:03 Midodrine (Pro-Amatine) 10 mg TID GT 02/07/20 18:00 04/21/20 17:59 02/08/20 17:42 Multivitamins (Multivitamins W/ Minerals 15ml Liquid) 15 ml DAILY GT 01/28/20 09:30 02/27/20 09:29 02/08/20 08:53 Pantoprazole (Protonix) 40 mg EVERY 12 HOURS IVP 01/31/20 09:30 03/01/20 09:29 02/08/20 20:41 Potassium Chloride (K-Dur) 40 meq TWICE A DAY ORAL 02/02/20 18:00 05/02/20 17:59 02/08/20 08:54 Sucralfate (Carafate) 1 gm FOUR TIMES A DAY ORAL 01/30/20 09:00 04/29/20 08:59 02/08/20 20:41 Thiamine HCl (Vitamin B1) 100 mg DAILY GT 01/28/20 09:30 02/27/20 09:29 02/08/20 08:55 Last 24 Hour Vital Signs Date Time Temp Pulse Resp B/P (MAP) Pulse Ox O2 Delivery O2 Flow Rate FiO2 02/09/20 08:00 30 02/09/20 08:00 Mechanical Ventilator 02/09/20 04:00 30 02/09/20 04:00 Mechanical Ventilator 02/09/20 04:00 98.7 73 22 122/62 (82) 100 02/09/20 03:35 72 02/09/20 03:11 84 21 35 02/09/20 00:00 97.8 79 20 109/48 (68) 100 02/09/20 00:00 Mechanical Ventilator 02/09/20 00:00 30 02/08/20 23:30 79 02/08/20 23:15 83 32 35 02/08/20 21:11 98.4 02/08/20 20:00 Mechanical Ventilator 02/08/20 20:00 30 02/08/20 20:00 99.6 72 17 107/45 (65) 100 02/08/20 19:30 82 29 35 02/08/20 19:03 75 02/08/20 16:00 Mechanical Ventilator 02/08/20 16:00 97.9 97 18 104/50 (68) 96 02/08/20 16:00 92 02/08/20 16:00 30 02/08/20 14:31 100 26 35 02/08/20 12:00 30 02/08/20 12:00 Mechanical Ventilator 02/08/20 12:00 98.8 86 16 141/106 (118) 99 02/08/20 12:00 104 02/08/20 10:30 95 23 35 02/08/20 08:00 92 02/08/20 08:00 Mechanical Ventilator 02/08/20 08:00 30 02/08/20 08:00 97.9 90 16 100/73 (82) 100 02/08/20 06:30 73 16 35 02/08/20 04:00 30 02/08/20 04:00 97.7 77 16 103/50 (67) 100 02/08/20 04:00 Mechanical Ventilator 02/08/20 03:56 72 14 35 02/08/20 03:51 80 02/08/20 00:00 97.9 64 18 107/61 (76) 100 02/08/20 00:00 Mechanical Ventilator 02/08/20 00:00 30 02/07/20 23:30 63 16 35 02/07/20 23:29 60 02/07/20 20:00 Mechanical Ventilator 02/07/20 20:00 30 02/07/20 20:00 97.9 65 18 109/54 (72) 99 02/07/20 19:47 75 18 35 02/07/20 19:20 74 02/07/20 16:00 99.0 78 19 101/54 (70) 100 02/07/20 16:00 69 02/07/20 16:00 30 02/07/20 16:00 Mechanical Ventilator 02/07/20 15:55 79 15 35 02/07/20 12:36 76 19 35 02/07/20 12:00 73 02/07/20 12:00 98.6 75 18 110/59 (76) 100 02/07/20 12:00 Mechanical Ventilator 02/07/20 12:00 30 02/07/20 10:50 79 22 35 02/07/20 08:50 73 14 35 Intake and Output 02/08/20 02/09/20 18:59 06:59 Intake Total 1815 ml 1545 ml Output Total 400 ml 375 ml Balance 1415 ml 1170 ml Intake Free Water 250 ml 150 ml IV Total 1015 ml 845 ml Tube Feeding 550 ml 550 ml Stool Total 400 ml 375 ml # Voids 2 Labs Test 02/06/20 18:23 02/07/20 00:39 02/07/20 05:18 02/07/20 13:17 POC Whole Blood Glucose 100 MG/DL (74-106) Test 02/07/20 17:33 02/08/20 00:30 02/08/20 03:15 02/08/20 04:54 White Blood Count 9.2 K/UL (4.8-10.8) Red Blood Count 2.89 M/UL (4.20-5.40) Hemoglobin 8.7 G/DL (12.0-16.0) Hematocrit 26.0 % (37.0-47.0) Mean Corpuscular Volume 90 FL (80-99) Mean Corpuscular Hemoglobin 30.1 PG (27.0-31.0) Mean Corpuscular Hemoglobin Concent 33.5 G/DL (32.0-36.0) Red Cell Distribution Width 14.4 % (11.6-14.8) Platelet Count 475 K/UL (150-450) Mean Platelet Volume 5.6 FL (6.5-10.1) Neutrophils (%) (Auto) 62.9 % (45.0-75.0) Lymphocytes (%) (Auto) 21.1 % (20.0-45.0) Monocytes (%) (Auto) 11.5 % (1.0-10.0) Eosinophils (%) (Auto) 3.4 % (0.0-3.0) Basophils (%) (Auto) 1.1 % (0.0-2.0) Test 02/08/20 11:34 02/08/20 16:57 02/08/20 18:15 02/08/20 22:33 POC Whole Blood Glucose 92 MG/DL (74-106) 122 MG/DL (74-106) Sodium Level 138 MMOL/L (136-145) Potassium Level 4.1 MMOL/L (3.5-5.1) Chloride Level 105 MMOL/L (98-107) Carbon Dioxide Level 28 MMOL/L (21-32) Anion Gap 5 mmol/L (5-15) Blood Urea Nitrogen 4 mg/dL (7-18) Creatinine 0.3 MG/DL (0.55-1.30) Estimat Glomerular Filtration Rate > 60 mL/min (>60) Glucose Level 123 MG/DL (74-106) Calcium Level 8.3 MG/DL (8.5-10.1) Test 02/09/20 03:00 02/09/20 04:45 White Blood Count 12.3 K/UL (4.8-10.8) Red Blood Count 2.83 M/UL (4.20-5.40) Hemoglobin 8.4 G/DL (12.0-16.0) Hematocrit 25.5 % (37.0-47.0) Mean Corpuscular Volume 90 FL (80-99) Mean Corpuscular Hemoglobin 29.6 PG (27.0-31.0) Mean Corpuscular Hemoglobin Concent 32.9 G/DL (32.0-36.0) Red Cell Distribution Width 14.1 % (11.6-14.8) Platelet Count 563 K/UL (150-450) Mean Platelet Volume 5.5 FL (6.5-10.1) Neutrophils (%) (Auto) 69.3 % (45.0-75.0) Lymphocytes (%) (Auto) 15.0 % (20.0-45.0) Monocytes (%) (Auto) 12.0 % (1.0-10.0) Eosinophils (%) (Auto) 1.9 % (0.0-3.0) Basophils (%) (Auto) 1.7 % (0.0-2.0) Sodium Level 138 MMOL/L (136-145) Potassium Level 3.9 MMOL/L (3.5-5.1) Chloride Level 104 MMOL/L (98-107) Carbon Dioxide Level 29 MMOL/L (21-32) Anion Gap 5 mmol/L (5-15) Blood Urea Nitrogen 6 mg/dL (7-18) Creatinine 0.3 MG/DL (0.55-1.30) Estimat Glomerular Filtration Rate > 60 mL/min (>60) Glucose Level 108 MG/DL (74-106) Calcium Level 7.8 MG/DL (8.5-10.1) Phosphorus Level 2.2 MG/DL (2.5-4.9) Magnesium Level 1.6 MG/DL (1.8-2.4) Total Bilirubin 0.2 MG/DL (0.2-1.0) Aspartate Amino Transf (AST/SGOT) 11 U/L (15-37) Alanine Aminotransferase (ALT/SGPT) 8 U/L (12-78) Alkaline Phosphatase 65 U/L (46-116) Total Protein 5.2 G/DL (6.4-8.2) Albumin 1.6 G/DL (3.4-5.0) Globulin 3.6 g/dL Albumin/Globulin Ratio 0.4 (1.0-2.7) Height (Feet): 5 Height (Inches): 1.00 Weight (Pounds): 82 Objective Vital Signs General Appearance: ++ cachectic, chronically ill HEENT: normocephalic, atraumatic ++ trach Resp: other -. vent ++ Cardiovascular: regular rate, rhythm, no edema Gastrointestinal: gtube in place, without erythema Rectal: other - Hemoccult positive [place]: back normal, gait/station normal, non-tender Lymphatic: no adenopathy Kleynberg,Baltazar L. MD Feb 09, 2020 08:38
[2020-02-09] MEDS: Midodrine 10mg tab GT SCH ×3 (09:47→17:13)
[2020-02-09] MEDS: Ascorbic Acid 500mg tab GT SCH (09:47)
[2020-02-09] MEDS: Thiamine 100mg tab GT SCH (09:47)
[2020-02-09] MEDS: Pantoprazole Inj IVP SCH ×2 (09:47→20:03)
[2020-02-09] MEDS: Sucralfate 1gm tab ORAL SCH ×4 (09:47→20:03)
--- NOTE | 2020-02-09 09:48 | Pulmonology Progress Note ---
Ivanna Mora [employer] 02/09/20 0948: Subjective ROS Limited/Unobtainable: Yes Allergies: Coded Allergies: CARBAMAZEPINE (Verified Allergy, Unknown, 12/31/19) LORAZEPAM (Verified Allergy, Unknown, 12/31/19) All Systems: reviewed and negative except above Subjective in JULIANA no signs of resp distress on current vent settings BP better , on Midodrine, off Dopamine gtt mild leuk this am, low garde efver last night CXR 02/04 Bilateral mostly interstitial opacities; suspect largely chronic although there may be an acute component at the left lung base. The latter does appear somewhat improved since the previous exam. SCX + Serratia and Pseudomonas repeated venous Duplex BLE NGT low Mg and P Objective Last 24 Hour Vital Signs Date Time Temp Pulse Resp B/P (MAP) Pulse Ox O2 Delivery O2 Flow Rate FiO2 02/09/20 08:00 30 02/09/20 08:00 96.6 79 19 98/55 (69) 100 02/09/20 08:00 Mechanical Ventilator 02/09/20 07:44 70 19 35 02/09/20 04:00 30 02/09/20 04:00 Mechanical Ventilator 02/09/20 04:00 98.7 73 22 122/62 (82) 100 02/09/20 03:35 72 02/09/20 03:11 84 21 35 02/09/20 00:00 97.8 79 20 109/48 (68) 100 02/09/20 00:00 Mechanical Ventilator 02/09/20 00:00 30 02/08/20 23:30 79 02/08/20 23:15 83 32 35 02/08/20 21:11 98.4 02/08/20 20:00 Mechanical Ventilator 02/08/20 20:00 30 02/08/20 20:00 99.6 72 17 107/45 (65) 100 02/08/20 19:30 82 29 35 02/08/20 19:03 75 02/08/20 16:00 Mechanical Ventilator 02/08/20 16:00 97.9 97 18 104/50 (68) 96 02/08/20 16:00 92 02/08/20 16:00 30 02/08/20 14:31 100 26 35 02/08/20 12:00 30 02/08/20 12:00 Mechanical Ventilator 02/08/20 12:00 98.8 86 16 141/106 (118) 99 02/08/20 12:00 104 02/08/20 10:30 95 23 35 Intake and Output 02/08/20 02/09/20 18:59 06:59 Intake Total 1815 ml 1545 ml Output Total 400 ml 375 ml Balance 1415 ml 1170 ml Intake Free Water 250 ml 150 ml IV Total 1015 ml 845 ml Tube Feeding 550 ml 550 ml Stool Total 400 ml 375 ml # Voids 2 Objective General Appearance: bedridden, pale, chronically ill looking, older than her biological age ; vent dependent female ; on vent SIMV 450-30%-12, PEEP 5 Lines, tubes and drains: trach HEENT: normocephalic, atraumatic Neck: trach - Portex #7, secretions small amount, yellow color, thin consistency Respiratory/Chest: CTAB Cardiovascular/Chest: regular rate, regular rhythm Abdomen: non tender, soft, G tube , rectal tube Genitourinary/Rectal: [place] Extremities: no edema, muscle atrophy Neurologic: abnormal gait, awake, poorly responsive Musculoskeletal: atrophy BLE Skin: multiple tattoos Laboratory Tests 02/08/20 11:34: POC Whole Blood Glucose 92 02/08/20 16:57: POC Whole Blood Glucose [Pending] 02/08/20 18:15: Sodium Level 138, Potassium Level 4.1, Chloride Level 105, Carbon Dioxide Level 28, Anion Gap 5, Blood Urea Nitrogen 4L, Creatinine 0.3L, Estimat Glomerular Filtration Rate > 60, Glucose Level 123H, Calcium Level 8.3L 02/08/20 22:33: POC Whole Blood Glucose 122H 02/09/20 03:00: White Blood Count 12.3H, Red Blood Count 2.83L, Hemoglobin 8.4L, Hematocrit 25.5 L, Mean Corpuscular Volume 90, Mean Corpuscular Hemoglobin 29.6, Mean Corpuscular Hemoglobin Concent 32.9, Red Cell Distribution Width 14.1, Platelet Count 563H, Mean Platelet Volume 5.5L, Neutrophils (%) (Auto) 69.3, Lymphocytes (%) (Auto) 15.0L, Monocytes (%) (Auto) 12.0H, Eosinophils (%) (Auto) 1.9, Basophils (%) (Auto) 1.7, Sodium Level 138, Potassium Level 3.9, Chloride Level 104, Carbon Dioxide Level 29, Anion Gap 5, Blood Urea Nitrogen 6L, Creatinine 0.3L, Estimat Glomerular Filtration Rate > 60, Glucose Level 108H, Calcium Level 7.8L, Phosphorus Level 2.2L, Magnesium Level 1.6L, Total Bilirubin 0.2, Aspartate Amino Transf (AST/SGOT) 11L, Alanine Aminotransferase (ALT/SGPT) 8L, Alkaline Phosphatase 65, Total Protein 5.2L, Albumin 1.6L, Globulin 3.6, Albumin/Globulin Ratio 0.4L 02/09/20 04:45: POC Whole Blood Glucose [Pending] Current Medications Medications (Trade) Dose Ordered Sig/Villa Route PRN Reason Start Time Stop Time Status Last Admin Dose Admin Acetaminophen (Tylenol) 650 mg Q4H PRN GT Temp >100.5 02/01/20 20:30 03/02/20 20:29 02/08/20 20:41 Ascorbic Acid (Vitamin C) 500 mg DAILY GT 01/28/20 09:30 02/27/20 09:29 02/08/20 08:54 Clonazepam (KlonoPIN) 1 mg EVERY 8 HOURS ORAL 02/08/20 22:00 02/15/20 21:59 Dextrose/Sodium Chloride 1,000 ml @ 75 mls/hr [id number] IV 01/29/20 13:00 02/27/20 12:59 02/08/20 20:43 Famotidine (Pepcid I.v.) 20 mg Q12HR IVP 01/29/20 21:00 02/28/20 20:59 02/08/20 20:41 Gabapentin (Neurontin) 900 mg TID GT 01/28/20 09:30 02/19/20 09:29 02/08/20 17:42 Gentamicin Protocol (Gentamicin pharmacy to dose) 1 ea DAILY PRN MISC Per rx protocol 02/02/20 17:00 03/03/20 16:59 Gentamicin Sulfate 200 mg/ Sodium Chloride 115 ml @ 115 mls/hr Q24H IVPB 02/02/20 18:00 02/09/20 17:59 02/08/20 17:45 Haloperidol Lactate (Haldol) 5 mg Q6H PRN IM Agitation 01/28/20 09:30 02/15/20 09:29 Levothyroxine Sodium (Synthroid) 50 mcg ACBREAKFAST GT 01/29/20 06:30 02/10/20 06:29 02/09/20 06:03 Loperamide HCl (Imodium) 2 mg Q4H PRN ORAL Diarrhea 02/05/20 10:00 03/06/20 09:59 02/09/20 06:03 Magnesium Sulfate 100 ml @ 100 mls/hr Q1H IVPB 02/09/20 08:45 02/09/20 12:44 Midodrine (Pro-Amatine) 10 mg TID GT 02/07/20 18:00 04/21/20 17:59 02/08/20 17:42 Multivitamins (Multivitamins W/ Minerals 15ml Liquid) 15 ml DAILY GT 01/28/20 09:30 02/27/20 09:29 02/08/20 08:53 Pantoprazole (Protonix) 40 mg EVERY 12 HOURS IVP 01/31/20 09:30 03/01/20 09:29 02/08/20 20:41 Potassium Phosphate 250 ml @ 62.5 mls/hr Q4H IVPB 02/09/20 10:00 02/09/20 17:59 Potassium Chloride (K-Dur) 40 meq TWICE A DAY ORAL 02/02/20 18:00 05/02/20 17:59 02/08/20 08:54 Sucralfate (Carafate) 1 gm FOUR TIMES A DAY ORAL 01/30/20 09:00 04/29/20 08:59 02/08/20 20:41 Thiamine HCl (Vitamin B1) 100 mg DAILY GT 01/28/20 09:30 02/27/20 09:29 02/08/20 08:55 Assessment/Plan Assessment/Plan ASSESSMENT VDRF/trach status Sepsis Possible pneumonia UTI recurrent GI bleeding severe C dif colitis Anemia secondary to GI bleeding Aspiration risk Dysphagia, feeding by G-tube Encephalopathy Acute kidney injury likely secondary to dehydration Recurrent bradycardia persistent Hypotension Electrolyte imbalance Severe protein calorie malnutrition Hx of hypertension History of CVA Seizure disorder with witnessed seizure episode 01/07 Psychiatric disorder Presumed scabies, s/p Rx Thrombocytopenia-transient- resolved PLAN OF CARE JULIANA off Dopamine gtt, BP better with Midodrine only on IVF, vent support, pulm toilet ABG stable on current settings on SIMV mode 450-30-12 PEEP5 , no signs of resp distress on these settings keep settings as is and titrate as needed now tachypneic intermittently CXR 01/27 no acute disease pulm toilet via N CT chest 01/28 - with tree-in-bud nodular opacities in the medial left base and lingula with left bronchial bubbly material suggesting infectious or inflammatory bronchiolitis, likely due to aspiration. Small amount of similar foci seen in the right posterior lower lobe. Mild bronchiectasis and reticulation in the lingula, medial left base, and superior left upper lobe could also be due to chronic infection. CXR 02/01 -Interval development of retrocardiac airspace opacities which could represent atelectasis versus developing consolidation. probably ATX , given no fevers, resolved leukocytosis, no resp distress on current settings CXR 02/04 Bilateral mostly interstitial opacities; suspect largely chronic although there may be an acute component at the left lung base. The latter does appear somewhat improved since the previous exam. pancx-per ID CXR 01/13- no acute findings KUB 01/13- no acute findings UA + yeast , 01/12 UCX +yeast, started on Fluconazole 01/14 as per ID -completed BCX 01/12 NGTD BCX 01/26 and 01/27 NGTD Vanco po was prior dc and switched to Dificid , also on Flagyl per GI -till 01/28 , both extended till , completed inflammatory markers : ESR-42, CRP- wnl WBC smear NGT C dif a/b 01/30 NGT less output from rectal tube UCX 01/27 + Klebs CR- started on Gent per ID recs given prior leukocytosis and fevers SCX 02/02 + Serratia,Pseudomonas abx as per ID recs , completing Gewnt today 02/08 mild leuk this am, low grade fever last night will f/up with CXR CT C/ A/P noted ( see results of CT chest above), CT A/P with findings most compatible with ileus and probable infectious or inflammatory enteritis or enterocolitis. off cefepime rapid COVID 19 NGT in ED aspiration precautions Venous Duplex BLE -negative, get SCD ( unable to give a/c given anemia) closely monitor hemodynamic status repeated Venous Duplex BLE NGT heme and GI follows s/p prior EGD 01/01 -> gastric ulcer across G tube site , no active bleeding s/p EGD 01/30 -> gastric ulceration without visible bleeding Protonix IV bid ( changed from Protonix gtt), Carafate GT feeding resumed as per GI , s/p blood tx 01/30 stool OB positive , another pending transfuse to keep Hgb > 7. HH at baseline trend LFT-> trended down, hep panel NGT hx of cirrhosis- per GI management monitor renal parameters, lytes, avoid nephrotoxic IVF BUN trending down, creat stable, likely prerenal due to dehydration replace e/lytes as per nephro recs , P and Mg replaced this am as per nephro monitor volumes seizure precautions, antiepileptic optimized as per neuro recs ammonia 49, fup with further neuro recs EEG - grossly abnormal; mild to mod encephalopathy, single ictal episode CT head no acute IC pathology BP management with current regimen SN[facility] meds supportive care dietary recs s/p 12/31 Rx for presumed scabies with permethrin and Ivermectin, repeated Ivermectin 01/08 case discussed and evaluated by supervising physician Raul Esparza MD 02/09/20 1423: Subjective Allergies: Coded Allergies: CARBAMAZEPINE (Verified Allergy, Unknown, 12/31/19) LORAZEPAM (Verified Allergy, Unknown, 12/31/19) Assessment/Plan Assessment/Plan Patient seen and examined with [employer]. Agree with A&P as it reflects our joint deliberations. Ivanna Mora NP Feb 09, 2020 09:48 Raul Esparza MD Feb 09, 2020 14:23
[2020-02-09] MEDS: Multivitamins W/Minerals 15 ML UDC GT SCH (10:03)
[2020-02-09] MEDS: Gabapentin 300 MG/6 ML Soln GT SCH ×3 (10:03→17:13)
[2020-02-09] MEDS: Potassium Phosphate 15mm/250ml 250 ML IVPB SCH ×2 (10:04→13:48)
[2020-02-09] MEDS: D5 1/2NS 1,000 ML IV SCH (10:21)
--- NOTE | 2020-02-09 10:30 | Infectious Diseases Prog Note ---
Assessment/Plan 39yo F with: Severe Sepsis Fever, recurrent; SP Leukocytosis; recurrent; mild UTI -02/04 CXR: Bilateral mostly interstitial opacities; suspect largely chronic althoughthere may be an acute component at the left lung base. The latter does appear somewhat improved since the previous exam. -02/02 sp cx S. marcences (R ancef, CTX, mami; I Levo; S Genta, Ceftazidime, Cefepime, bactrim), GNR #2 -02/01 CXR: Interval development of retrocardiac airspace opacities which could represent atelectasis versus developing consolidation. u/a wbc 5-10, nit neg, leuk +2; -01/28 CXR: Subtle reticular nodular opacities in the left apex which may be related to scarring versus acute small airway disease/bronchitis CT c/abd/p wo: Study substantially limited due to lack of IV contrast. Findings most compatible with ileus and probable infectious or inflammatory enteritis or enterocolitis. Large low-attenuation pelvic fluid of uncertain significance, potentially reactive.Appendix not identified. Percutaneous gastrostomy tube adequately positioned in the stomach. Rectal tube. Urinary bladder wall thickening could be incidental, due to high outlet pressures, or could represent cystitis.Cholecystectomy. -01/27 u/a no pyuria, nit +, leuk +3; ucx >100k CRE K, pna (S Gentamycin), P . miriabilis, MDR P, fluorensces (I Gentamycin) CXR: no acute disease Bc xNTD -01/26 Bcx Neg -01/13 CXR: no acute disease -01/12 u/a wbc tnct, nit neg, latrell +3; ucx >100k C. tropicalis Bcx NTD Severe Cdiff colitis -01/30 Cdif toxin a/b neg -01/06 Cdif toxin + 01/27 KUB:Severely dilated small bowel loop in the central abdomen could reflect obstruction. Diffusely fluid distended colon. -01/13 KUB: no acute findings Recurrent GIB 01/06 u/aneg 12/30 BCx 1/2 +CONS, likely contaminant 12/30 UA neg, COVID rapid Ag neg 12/30 CXR 1. Density overlying the bilateral lung apices. May represent pleural thickening, multifocal airspace opacities, versus summation artifact. 01/01 BCx Neg 01/02 BCx Neg Acute blood loss anemia Possible pna on CXR, sp rx Seizure episode -01/10 CT head: Third and lateral ventriculomegaly. Associated enlargement of the extra axial CSF spaces indicates that this is probably due to central volume loss, but the possibility of hydrocephalus should also be considered. At the degree of volume loss is considerably out of proportion to patient's age. Periventricular deep white matter low-attenuation. Probably on the basis of microvascular ischemic change but given patient's age the possibility of demyelinating disease should be considered as well. 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 [facility] will continue to follow. Subjective Allergies: Coded Allergies: CARBAMAZEPINE (Verified Allergy, Unknown, 12/31/19) LORAZEPAM (Verified Allergy, Unknown, 12/31/19) Afebrile Leukocytosis increased a little BILLIE Objective Last 24 Hour Vital Signs Date Time Temp Pulse Resp B/P (MAP) Pulse Ox O2 Delivery O2 Flow Rate FiO2 02/09/20 08:00 30 02/09/20 08:00 96.6 79 19 98/55 (69) 100 02/09/20 08:00 Mechanical Ventilator 02/09/20 07:44 70 19 35 02/09/20 04:00 30 02/09/20 04:00 Mechanical Ventilator 02/09/20 04:00 98.7 73 22 122/62 (82) 100 02/09/20 03:35 72 02/09/20 03:11 84 21 35 02/09/20 00:00 97.8 79 20 109/48 (68) 100 02/09/20 00:00 Mechanical Ventilator 02/09/20 00:00 30 02/08/20 23:30 79 02/08/20 23:15 83 32 35 02/08/20 21:11 98.4 02/08/20 20:00 Mechanical Ventilator 02/08/20 20:00 30 02/08/20 20:00 99.6 72 17 107/45 (65) 100 02/08/20 19:30 82 29 35 02/08/20 19:03 75 02/08/20 16:00 Mechanical Ventilator 02/08/20 16:00 97.9 97 18 104/50 (68) 96 02/08/20 16:00 92 02/08/20 16:00 30 02/08/20 14:31 100 26 35 02/08/20 12:00 30 02/08/20 12:00 Mechanical Ventilator 02/08/20 12:00 98.8 86 16 141/106 (118) 99 02/08/20 12:00 104 02/08/20 10:30 95 23 35 Height (Feet): 5 Height (Inches): 1.00 Weight (Pounds): 82 GEN: NAD on Vent 30% HEENT: NCAT, MMM, EOMI Pulm: Equal chest rise and fall B/L, NO accessory muscle use ABD: Soft, ND Laboratory Tests Test 02/08/20 11:34 02/08/20 16:57 02/08/20 18:15 02/08/20 22:33 POC Whole Blood Glucose 92 MG/DL (74-106) Pending 122 MG/DL (74-106) H Sodium Level 138 MMOL/L (136-145) Potassium Level 4.1 MMOL/L (3.5-5.1) Chloride Level 105 MMOL/L (98-107) Carbon Dioxide Level 28 MMOL/L (21-32) Anion Gap 5 mmol/L (5-15) Blood Urea Nitrogen 4 mg/dL (7-18) L Creatinine 0.3 MG/DL (0.55-1.30) L Estimat Glomerular Filtration Rate > 60 mL/min (>60) Glucose Level 123 MG/DL (74-106) H Calcium Level 8.3 MG/DL (8.5-10.1) L Test 02/09/20 03:00 02/09/20 04:45 White Blood Count 12.3 K/UL (4.8-10.8) H Red Blood Count 2.83 M/UL (4.20-5.40) L Hemoglobin 8.4 G/DL (12.0-16.0) L Hematocrit 25.5 % (37.0-47.0) L Mean Corpuscular Volume 90 FL (80-99) Mean Corpuscular Hemoglobin 29.6 PG (27.0-31.0) Mean Corpuscular Hemoglobin Concent 32.9 G/DL (32.0-36.0) Red Cell Distribution Width 14.1 % (11.6-14.8) Platelet Count 563 K/UL (150-450) H Mean Platelet Volume 5.5 FL (6.5-10.1) L Neutrophils (%) (Auto) 69.3 % (45.0-75.0) Lymphocytes (%) (Auto) 15.0 % (20.0-45.0) L Monocytes (%) (Auto) 12.0 % (1.0-10.0) H Eosinophils (%) (Auto) 1.9 % (0.0-3.0) Basophils (%) (Auto) 1.7 % (0.0-2.0) Sodium Level 138 MMOL/L (136-145) Potassium Level 3.9 MMOL/L (3.5-5.1) Chloride Level 104 MMOL/L (98-107) Carbon Dioxide Level 29 MMOL/L (21-32) Anion Gap 5 mmol/L (5-15) Blood Urea Nitrogen 6 mg/dL (7-18) L Creatinine 0.3 MG/DL (0.55-1.30) L Estimat Glomerular Filtration Rate > 60 mL/min (>60) Glucose Level 108 MG/DL (74-106) H Calcium Level 7.8 MG/DL (8.5-10.1) L Phosphorus Level 2.2 MG/DL (2.5-4.9) L Magnesium Level 1.6 MG/DL (1.8-2.4) L Total Bilirubin 0.2 MG/DL (0.2-1.0) Aspartate Amino Transf (AST/SGOT) 11 U/L (15-37) L Alanine Aminotransferase (ALT/SGPT) 8 U/L (12-78) L Alkaline Phosphatase 65 U/L (46-116) Total Protein 5.2 G/DL (6.4-8.2) L Albumin 1.6 G/DL (3.4-5.0) L Globulin 3.6 g/dL Albumin/Globulin Ratio 0.4 (1.0-2.7) L POC Whole Blood Glucose Pending Current Medications Medications (Trade) Dose Ordered Sig/Villa Route PRN Reason Start Time Stop Time Status Last Admin Dose Admin Acetaminophen (Tylenol) 650 mg Q4H PRN GT Temp >100.5 02/01/20 20:30 03/02/20 20:29 02/08/20 20:41 Ascorbic Acid (Vitamin C) 500 mg DAILY GT 01/28/20 09:30 02/27/20 09:29 02/09/20 09:47 Clonazepam (KlonoPIN) 1 mg EVERY 8 HOURS ORAL 02/08/20 22:00 02/15/20 21:59 Dextrose/Sodium Chloride 1,000 ml @ 75 mls/hr [id number] IV 01/29/20 13:00 02/27/20 12:59 02/09/20 10:21 Famotidine (Pepcid I.v.) 20 mg Q12HR IVP 01/29/20 21:00 02/28/20 20:59 02/09/20 09:49 Gabapentin (Neurontin) 900 mg TID GT 01/28/20 09:30 02/19/20 09:29 02/09/20 10:03 Gentamicin Protocol (Gentamicin pharmacy to dose) 1 ea DAILY PRN MISC Per rx protocol 02/02/20 17:00 03/03/20 16:59 Gentamicin Sulfate 200 mg/ Sodium Chloride 115 ml @ 115 mls/hr Q24H IVPB 02/02/20 18:00 02/09/20 17:59 02/08/20 17:45 Haloperidol Lactate (Haldol) 5 mg Q6H PRN IM Agitation 01/28/20 09:30 02/15/20 09:29 Levothyroxine Sodium (Synthroid) 50 mcg ACBREAKFAST GT 01/29/20 06:30 02/10/20 06:29 02/09/20 06:03 Loperamide HCl (Imodium) 2 mg Q4H PRN ORAL Diarrhea 02/05/20 10:00 03/06/20 09:59 02/09/20 06:03 Magnesium Sulfate 100 ml @ 100 mls/hr Q1H IVPB 02/09/20 08:45 02/09/20 12:44 02/09/20 09:48 Midodrine (Pro-Amatine) 10 mg TID GT 02/07/20 18:00 04/21/20 17:59 02/09/20 09:47 Multivitamins (Multivitamins W/ Minerals 15ml Liquid) 15 ml DAILY GT 01/28/20 09:30 02/27/20 09:29 02/09/20 10:03 Pantoprazole (Protonix) 40 mg EVERY 12 HOURS IVP 01/31/20 09:30 03/01/20 09:29 02/09/20 09:47 Potassium Phosphate 250 ml @ 62.5 mls/hr Q4H IVPB 02/09/20 10:00 02/09/20 17:59 02/09/20 10:04 Potassium Chloride (K-Dur) 40 meq TWICE A DAY ORAL 02/02/20 18:00 05/02/20 17:59 02/09/20 09:47 Sucralfate (Carafate) 1 gm FOUR TIMES A DAY ORAL 01/30/20 09:00 04/29/20 08:59 02/09/20 09:47 Thiamine HCl (Vitamin B1) 100 mg DAILY GT 01/28/20 09:30 02/27/20 09:29 02/09/20 09:47 Jesus Hanson MD Feb 09, 2020 10:30
[2020-02-09 12:00] VITALS: BP 107/56
--- NOTE | 2020-02-09 12:39 | Nephrology Progress Note ---
Assessment/Plan Problem List: (1) RICHARD (acute kidney injury) (2) Dehydration (3) Anemia (4) GI bleed (5) Malnutrition (6) Seizure disorder (7) Electrolyte imbalance Assessment Renal failure, in the form of prerenal azotemia, most likely secondary to GI bleed GI bleed, leading to severe anemia Sepsis, pneumonia Chronic tracheostomy, ventilator dependent History of CVA History of seizure disorder History of psychiatric disorder Severe malnutrition Electrolyte abnormalities Plan February 08: Labs reviewed. Electrolyte abnormalities addressed. Patient full code. Continue per current management. February 07: No chemistry panel done today. Remains stable from renal standpoint of view. Patient is full code. Order lab tomorrow. February 06: No chemistry panel drawn today. Clinically remains stable from re nal standpoint of view. Patient is full code. February 05: Phosphorus and magnesium supplement given. Stable from renal standpoint of view. Remains full code February 04: No chemistry panel done today. Remains stable from renal standpoint of view. Continue to monitor renal parameters. February 03: Labs reviewed. Renal parameters stable. Continue her consultants. February 02: Lab reviewed. Low phosphorus low magnesium corrections ordered. Continue to monitor electrolytes and renal parameters. February 01: Lab reviewed. Low phosphorus and low magnesium replaced. Low potassium replaced. Continue to monitor electrolytes. Continue per consultants. January 31: Lab reviewed. Hemoglobin higher. Renal parameters stable. Potassium and phosphorus supplement given. January 30: Labs reviewed. Low mag low phosphorus and low potassium replaced. White blood cells 16,000 today. Remains full code. Continue to monitor hemoglobin and hematocrit and electrolytes. January 29: Labs reviewed. Magnesium, potassium, phosphorus supplement given. White blood cells down to 22,000. Remains full code. Continue per consultants. RN reports rectal bleed. Hemoglobin drifting down. Defer management to political advisor who is already on the case. January 28: Status quo. Electrolyte abnormalities noted. Mag Phos and potassium supplement IV given. Renal parameters stable. Continue per consultants. Leukocytosis persists. January 27: Significant rise in white blood cell counts. Hypotensive. Now in ICU. Will give albumin bolus. Continue to monitor renal parameters. Continue per ID advice. January 26: Continue to monitor renal parameters. Patient remains on ventilator. Patient is full code. Continue per consultants. January 25: Status quo. Labs reviewed. Continue per consultants. January 24: Status unchanged. Labs reviewed. Remains stable from renal standpoint of view. January 23: Back in [facility]. Stable from renal standpoint of view. Continue per consultants. January 22: Patient in ICU now. Vital signs and heart rate and blood pressure appears to be stable. Patient had an episode of bradycardia but it was resolv ed. TSH level today is very low will cut down on Synthroid dose. January 21: Today's labs are reviewed. Stable renal parameters. Continue per consultants. January 20: Labs reviewed. Renal parameters stable. January 19: Labs reviewed. Stable from renal standpoint. January 18: No labs done today. Continue per consultants. Medications reviewed. January 17: Late note entry due to system problem at the [facility] today.Chemistry panel reviewed. Stable from renal standpoint of view. Continue per current management. January 16: No can panel today. Check lab tomorrow. Remains stable from renal standpoint of view. January 15: Lab reviewed. Renal parameters stable. January 14: Lab reviewed. Renal parameters stable. January 13: Labs reviewed. Stable from renal standpoint of view. January 12: Labs reviewed. Stable from renal standpoint of view January 11: No labs drawn today stable from renal standpoint of view January 10: Labs reviewed. Potassium supplement given. Continue per oncology consultant s. January 09: Lab reviewed. Potassium supplement given. IV fluid discontinued. January 08: Lab reviewed. Renal parameters stable. Continue per consultants. January 07: Lab reviewed. Renal parameters stable. Continue per consultants. January 06: Lab reviewed. Stable from renal standpoint of view. January 05: Labs reviewed. Stable from renal standpoint of view. Continue per consultants. January 04: No labs drawn today. Will check labs tomorrow. Continue per consultants. January 03: Lab reviewed. Renal parameters stable. IV fluid discontinued. High LFTs declining. Continue same. January 02: Lab reviewed. Renal parameters stable. Continue per PMD and consultants. LFTs remain elevated. Continue to monitor. Continue slow hydration Discontinue blood pressure medications as her blood pressure is low Discontinue diuretics Monitor renal parameters Transfusion as needed GI evaluation Correct electrolyte abnormalities Check B12 level, folate, and thyroid function tests: Results noted Subjective ROS Limited/Unobtainable: Yes Objective Objective Last 24 Hour Vital Signs Date Time Temp Pulse Resp B/P (MAP) Pulse Ox O2 Delivery O2 Flow Rate FiO2 02/09/20 11:20 71 21 35 02/09/20 08:00 75 02/09/20 08:00 30 02/09/20 08:00 96.6 79 19 98/55 (69) 100 02/09/20 08:00 Mechanical Ventilator 02/09/20 07:44 70 19 35 02/09/20 04:00 30 02/09/20 04:00 Mechanical Ventilator 02/09/20 04:00 98.7 73 22 122/62 (82) 100 02/09/20 03:35 72 02/09/20 03:11 84 21 35 02/09/20 00:00 97.8 79 20 109/48 (68) 100 02/09/20 00:00 Mechanical Ventilator 02/09/20 00:00 30 02/08/20 23:30 79 02/08/20 23:15 83 32 35 02/08/20 21:11 98.4 02/08/20 20:00 Mechanical Ventilator 02/08/20 20:00 30 02/08/20 20:00 99.6 72 17 107/45 (65) 100 02/08/20 19:30 82 29 35 02/08/20 19:03 75 02/08/20 16:00 Mechanical Ventilator 02/08/20 16:00 97.9 97 18 104/50 (68) 96 02/08/20 16:00 92 02/08/20 16:00 30 02/08/20 14:31 100 26 35 Intake and Output 02/08/20 02/09/20 18:59 06:59 Intake Total 1815 ml 1545 ml Output Total 400 ml 375 ml Balance 1415 ml 1170 ml Intake Free Water 250 ml 150 ml IV Total 1015 ml 845 ml Tube Feeding 550 ml 550 ml Stool Total 400 ml 375 ml # Voids 2 Laboratory Tests 02/08/20 16:57: POC Whole Blood Glucose [Pending] 02/08/20 18:15: Sodium Level 138, Potassium Level 4.1, Chloride Level 105, Carbon Dioxide Level 28, Anion Gap 5, Blood Urea Nitrogen 4L, Creatinine 0.3L, Estimat Glomerular Filtration Rate > 60, Glucose Level 123H, Calcium Level 8.3L 02/08/20 22:33: POC Whole Blood Glucose 122H 02/09/20 03:00: Sodium Level 138, Potassium Level 3.9, Chloride Level 104, Carbon Dioxide Level 29, Anion Gap 5, Blood Urea Nitrogen 6L, Creatinine 0.3L, Estimat Glomerular Filtration Rate > 60, Glucose Level 108H, Calcium Level 7.8L, White Blood Count 12.3H, Red Blood Count 2.83L, Hemoglobin 8.4L, Hematocrit 25.5L, Mean Corpusc ular Volume 90, Mean Corpuscular Hemoglobin 29.6, Mean Corpuscular Hemoglobin Concent 32.9, Red Cell Distribution Width 14.1, Platelet Count 563H, Mean Platelet Volume 5.5L, Neutrophils (%) (Auto) 69.3, Lymphocytes (%) (Auto) 15.0L, Monocytes (%) (Auto) 12.0H, Eosinophils (%) (Auto) 1.9, Basophils (%) (Auto) 1.7, Phosphorus Level 2.2L, Magnesium Level 1.6L, Total Bilirubin 0.2, Aspartate Amino Transf (AST/SGOT) 11L, Alanine Aminotransferase (ALT/SGPT) 8L, Alkaline Phosphatase 65, Total Protein 5.2L, Albumin 1.6L, Globulin 3.6, Albumin/Globulin Ratio 0.4L 02/09/20 04:45: POC Whole Blood Glucose [Pending] Height (Feet): 5 Height (Inches): 1.00 Weight (Pounds): 82 General Appearance: no apparent distress EENT: other - Trach to vent Cardiovascular: normal rate Respiratory/Chest: decreased breath sounds Abdomen: distended Objective No change Chivo Holloway MD Feb 09, 2020 12:39
--- NOTE | 2020-02-09 13:35 | General Progress Note ---
Subjective ROS Limited/Unobtainable: No Allergies: Coded Allergies: CARBAMAZEPINE (Verified Allergy, Unknown, 12/31/19) LORAZEPAM (Verified Allergy, Unknown, 12/31/19) Objective Last 24 Hour Vital Signs Date Time Temp Pulse Resp B/P (MAP) Pulse Ox O2 Delivery O2 Flow Rate FiO2 02/09/20 12:00 Mechanical Ventilator 02/09/20 12:00 72 02/09/20 12:00 97.9 74 16 107/56 (73) 100 02/09/20 12:00 30 02/09/20 11:20 71 21 35 02/09/20 08:00 75 02/09/20 08:00 30 02/09/20 08:00 96.6 79 19 98/55 (69) 100 02/09/20 08:00 Mechanical Ventilator 02/09/20 07:44 70 19 35 02/09/20 04:00 30 02/09/20 04:00 Mechanical Ventilator 02/09/20 04:00 98.7 73 22 122/62 (82) 100 02/09/20 03:35 72 02/09/20 03:11 84 21 35 02/09/20 00:00 97.8 79 20 109/48 (68) 100 02/09/20 00:00 Mechanical Ventilator 02/09/20 00:00 30 02/08/20 23:30 79 02/08/20 23:15 83 32 35 02/08/20 21:11 98.4 02/08/20 20:00 Mechanical Ventilator 02/08/20 20:00 30 02/08/20 20:00 99.6 72 17 107/45 (65) 100 02/08/20 19:30 82 29 35 02/08/20 19:03 75 02/08/20 16:00 Mechanical Ventilator 02/08/20 16:00 97.9 97 18 104/50 (68) 96 02/08/20 16:00 92 02/08/20 16:00 30 02/08/20 14:31 100 26 35 Intake and Output 02/08/20 02/09/20 19:00 07:00 Intake Total 1870 ml 1490 ml Output Total 400 ml 375 ml Balance 1470 ml 1115 ml Intake Free Water 250 ml 150 ml IV Total 1015 ml 845 ml Tube Feeding 605 ml 495 ml Stool Total 400 ml 375 ml # Voids 2 Laboratory Tests 02/08/20 16:57: POC Whole Blood Glucose [Pending] 02/08/20 18:15: Sodium Level 138, Potassium Level 4.1, Chloride Level 105, Carbon Dioxide Level 28, Anion Gap 5, Blood Urea Nitrogen 4L, Creatinine 0.3L, Estimat Glomerular Filtration Rate > 60, Glucose Level 123H, Calcium Level 8.3L 02/08/20 22:33: POC Whole Blood Glucose 122H 02/09/20 03:00: Sodium Level 138, Potassium Level 3.9, Chloride Level 104, Carbon Dioxide Level 29, Anion Gap 5, Blood Urea Nitrogen 6L, Creatinine 0.3L, Estimat Glomerular Filtration Rate > 60, Glucose Level 108H, Calcium Level 7.8L, White Blood Count 12.3H, Red Blood Count 2.83L, Hemoglobin 8.4L, Hematocrit 25.5L, Mean Corpuscular Volume 90, Mean Corpuscular Hemoglobin 29.6, Mean Corpuscular Hemoglobin Concent 32.9, Red Cell Distribution Width 14.1, Platelet Count 563H, Mean Platelet Volume 5.5L, Neutrophils (%) (Auto) 69.3, Lymphocytes (%) (Auto) 15.0L, Monocytes (%) (Auto) 12.0H, Eosinophils (%) (Auto) 1.9, Basophils (%) (Auto) 1.7, Phosphorus Level 2.2L, Magnesium Level 1.6L, Total Bilirubin 0.2, Aspartate Amino Transf (AST/SGOT) 11L, Alanine Aminotransferase (ALT/SGPT) 8L, Alkaline Phosphatase 65, Total Protein 5.2L, Albumin 1.6L, Globulin 3.6, Albumin/Globulin Ratio 0.4L 02/09/20 04:45: POC Whole Blood Glucose [Pending] 02/09/20 13:29: POC Whole Blood Glucose 96 Height (Feet): 5 Height (Inches): 1.00 Weight (Pounds): 82 General Appearance: alert EENT: normal ENT inspection Neck: supple Cardiovascular: normal rate Respiratory/Chest: decreased breath sounds Abdomen: normal bowel sounds, non tender, soft Extremities: non-tender Assessment/Plan Problem List: (1) G tube feedings ICD Codes: Z93.1 - Gastrostomy status SNOMED: 647065497, 736184217, 382964838 (2) GI bleed ICD Codes: K92.2 - Gastrointestinal hemorrhage, unspecified SNOMED: 28154290 (3) Sepsis ICD Codes: A41.9 - Sepsis, unspecified organism SNOMED: 28980149 (4) Pneumonia ICD Codes: J18.9 - Pneumonia, unspecified organism SNOMED: 026434274 Status: stable, other - Patient is now hypotensive before over 46 she will receive 500 cc of normal saline bolus to be repeated blood pressure remained below 90 further management will be decided following the boluses treatment repeat laboratory tests will be done in a.m. GEM MCKAY MD Assessment/Plan: s/p EGD gastric ulcer monitor H&H C. Diff positive>> now neg rectal bleed last night and now it has resolved resume GTF prn imodium carafate and ppi will Satish Junior MD Feb 09, 2020 13:35
--- NOTE | 2020-02-09 15:28 | Surgery Progress Note ---
Surgery Progress Note Subjective Additional Comments Discharge was held yesterday some redness was noted in the groin region. Was potentially considered to be cellulitis or infectious process. Evaluated by myself and identified as an con associated dermatitis in both right and left groin creases and around the vaginal area. Patient is incontinent and leaks she is also very moving sometimes sheets or pads clump up around her groin area and saturate with the urine. Local care provided. Objective Last 24 Hour Vital Signs Date Time Temp Pulse Resp B/P (MAP) Pulse Ox O2 Delivery O2 Flow Rate FiO2 02/09/20 12:00 Mechanical Ventilator 02/09/20 12:00 72 02/09/20 12:00 97.9 74 16 107/56 (73) 100 02/09/20 12:00 30 02/09/20 11:20 71 21 35 02/09/20 08:00 75 02/09/20 08:00 30 02/09/20 08:00 96.6 79 19 98/55 (69) 100 02/09/20 08:00 Mechanical Ventilator 02/09/20 07:44 70 19 35 02/09/20 04:00 30 02/09/20 04:00 Mechanical Ventilator 02/09/20 04:00 98.7 73 22 122/62 (82) 100 02/09/20 03:35 72 02/09/20 03:11 84 21 35 02/09/20 00:00 97.8 79 20 109/48 (68) 100 02/09/20 00:00 Mechanical Ventilator 02/09/20 00:00 30 02/08/20 23:30 79 02/08/20 23:15 83 32 35 02/08/20 21:11 98.4 02/08/20 20:00 Mechanical Ventilator 02/08/20 20:00 30 02/08/20 20:00 99.6 72 17 107/45 (65) 100 02/08/20 19:30 82 29 35 02/08/20 19:03 75 02/08/20 16:00 Mechanical Ventilator 02/08/20 16:00 97.9 97 18 104/50 (68) 96 02/08/20 16:00 92 02/08/20 16:00 30 I&O Intake and Output 02/08/20 02/09/20 19:00 07:00 Intake Total 1870 ml 1490 ml Output Total 400 ml 375 ml Balance 1470 ml 1115 ml Intake Free Water 250 ml 150 ml IV Total 1015 ml 845 ml Tube Feeding 605 ml 495 ml Stool Total 400 ml 375 ml # Voids 2 Dressing: saturated Cardiovascular: RSR Respiratory: decreased breath sounds Abdomen: soft, non-tender, present bowel sounds Extremities: no edema, no tenderness, no cyanosis, other Laboratory Tests Test 02/08/20 16:57 02/08/20 18:15 02/08/20 22:33 02/09/20 03:00 POC Whole Blood Glucose Pending 122 MG/DL (74-106) H Sodium Level 138 MMOL/L (136-145) 138 MMOL/L (136-145) Potassium Level 4.1 MMOL/L (3.5-5.1) 3.9 MMOL/L (3.5-5.1) Chloride Level 105 MMOL/L (98-107) 104 MMOL/L (98-107) Carbon Dioxide Level 28 MMOL/L (21-32) 29 MMOL/L (21-32) Anion Gap 5 mmol/L (5-15) 5 mmol/L (5-15) Blood Urea Nitrogen 4 mg/dL (7-18) L 6 mg/dL (7-18) L Creatinine 0.3 MG/DL (0.55-1.30) L 0.3 MG/DL (0.55-1.30) L Estimat Glomerular Filtration Rate > 60 mL/min (>60) > 60 mL/min (>60) Glucose Level 123 MG/DL (74-106) H 108 MG/DL (74-106) H Calcium Level 8.3 MG/DL (8.5-10.1) L 7.8 MG/DL (8.5-10.1) L White Blood Count 12.3 K/UL (4.8-10.8) H Red Blood Count 2.83 M/UL (4.20-5.40) L Hemoglobin 8.4 G/DL (12.0-16.0) L Hematocrit 25.5 % (37.0-47.0) L Mean Corpuscular Volume 90 FL (80-99) Mean Corpuscular Hemoglobin 29.6 PG (27.0-31.0) Mean Corpuscular Hemoglobin Concent 32.9 G/DL (32.0-36.0) Red Cell Distribution Width 14.1 % (11.6-14.8) Platelet Count 563 K/UL (150-450) H Mean Platelet Volume 5.5 FL (6.5-10.1) L Neutrophils (%) (Auto) 69.3 % (45.0-75.0) Lymphocytes (%) (Auto) 15.0 % (20.0-45.0) L Monocytes (%) (Auto) 12.0 % (1.0-10.0) H Eosinophils (%) (Auto) 1.9 % (0.0-3.0) Basophils (%) (Auto) 1.7 % (0.0-2.0) Phosphorus Level 2.2 MG/DL (2.5-4.9) L Magnesium Level 1.6 MG/DL (1.8-2.4) L Total Bilirubin 0.2 MG/DL (0.2-1.0) Aspartate Amino Transf (AST/SGOT) 11 U/L (15-37) L Alanine Aminotransferase (ALT/SGPT) 8 U/L (12-78) L Alkaline Phosphatase 65 U/L (46-116) Total Protein 5.2 G/DL (6.4-8.2) L Albumin 1.6 G/DL (3.4-5.0) L Globulin 3.6 g/dL Albumin/Globulin Ratio 0.4 (1.0-2.7) L Test 02/09/20 04:45 02/09/20 13:29 POC Whole Blood Glucose Pending 96 MG/DL (74-106) Plan Problems: (1) Pneumonia (2) Sepsis Assessment & Plan: leukocytosis anemia lactic acidosis agree with GI recommend EGD planned for 12/31 hold feeding for now trend h/h monitor for bleeding no acute hemorrhage will be available in event needs exploration for hemostasis prbc as per heme thank you will follow with recs cont abx worsening wbc wbc trending down comfortable appearing no n/v hypotensive in ICU again worse pending CT results - noted PICC ordered improving wbc improved labs and micro trending labs improved wbc resolved prognosis guarded Pt presented on admission in emaciated state. Pt has tracheostomy and GT. NO skin concerns noted to skin under collar of trach. NO erythema or evidence of skin erosion at GT site. Pt noted to have scaly pimple-like rash with webbing noted to R and L axillae, undersides of both breasts, Bilat groin and lower back. Tracking and webbing noted to hands and feet. Pt restless and scratching at skin. Non-Blanching erythema without induration or fluctuance noted to R and L hips and trochanteric areas.Non-blanching erythema noted along spine. Non-Blanching erythema without induration noted to Sacrum. Non-Blanching erythema noted to R and L Malleoli and both heels. Tx.Plan: Please apply Cavilon Skin Barrier to each bony Prominences at risks for Skin Breakdown. Cover each area with Optifoam drsgs. Change every 7 days and prn. Apply Moisture Barrier Paste to Sacrum. Cover with Optifoam drsg. Change every 3 days and prn. Reposition at least every 2hours or as tolerated. Off-load heels with pillow. APM/EMELI Mattress overlay. improving cont current care plan Incontinent social dermatitis noted around the bilateral groin creases and vaginal area. Site clean. Monitor for incontinence. There is marked enlargement of the third and lateral ventricles and extra axial CSF spaces, in particular the former. There is considerable periventricular deep white matter low-attenuation. Otherwise normal mobley-white differentiation. No acute hemorrhage or edema. No mass effect nor midline shift. Visualized orbits and sinuses are unremarkable. The calvarium is intact Impression: Third and lateral ventriculomegaly. Associated enlargement of the extra axial CSF spaces indicates that this is probably due to central volume loss, but the possibility of hydrocephalus should also be considered. At the degree of volume loss is considerably out of proportion to patient's age. Correlate with clinical history Periventricular deep white matter low-attenuation. Probably on the basis of microvascular ischemic change but given patient's age the possibility of demyelinating disease should be considered as well. Negative for acute intracranial bleed or mass effect ABDOMEN: Liver: Unremarkable. Gallbladder and bile ducts: Cholecystectomy. No ductal dilation. Pancreas: Unremarkable. No ductal dilation. Spleen: Unremarkable. No splenomegaly. Adrenals: Unremarkable. No mass. Kidneys and ureters: Unremarkable. No obstructing stones. No hydronephrosis. Stomach and bowel: Operative bowel findings. Diffuse small bowel wall thickening with areas of distention and fluid-filled colonic loops. No clear focal transition point to suggest small bowel obstruction. PELVIS: Appendix: Appendix not identified. Bladder: Urinary bladder wall thickening could be incidental, due to high outlet pressures, or could represent cystitis. No stones. Reproductive: Unremarkable as visualized. ABDOMEN and PELVIS: Intraperitoneal space: Large low-attenuation pelvic fluid of uncertain significance, potentially reactive. No free air. Bones/joints: No acute fracture. No dislocation. Soft tissues: Bilateral buttock injection granulomas. Vasculature: Unremarkable. No abdominal aortic aneurysm. Lymph nodes: Unremarkable. No enlarged lymph nodes. Tubes, lines and devices: Percutaneous gastrostomy tube adequately positioned in the stomach. Rectal tube. Other findings: No perforation seen. IMPRESSION: 1. Study substantially limited due to lack of IV contrast. 2. Findings most compatible with ileus and probable infectious or inflammatory enteritis or enterocolitis. 3. Large low-attenuation pelvic fluid of uncertain significance, potentially reactive. 4. Appendix not identified. 5. Percutaneous gastrostomy tube adequately positioned in the stomach. Rectal tube. 6. Urinary bladder wall thickening could be incidental, due to high outlet pressures, or could represent cystitis. 7. Cholecystectomy. (3) GI bleed (4) G tube feedings Assessment & Plan: DAILY ESTIMATED NEEDS: Needs based on Underweight, critical care 37.3kg 30-40 kcals/kg 3373-2492 total kcals 1.25-2 g protein/kg 47-75 g total protein 25-35 mL/kg 933-1306 total fluid mLs NUTRITION DIAGNOSIS: Increased kcal and pro needs r/t underweight status as evidenced by BMI 14.1, pt is 68% of ideal body weight w/ generalized severe wasting, trach and peg dep. CURRENT TF:Vital AF 1.2 @55 x20 hrs ENTERAL NUTRITION RECOMMENDATIONS: Vital AF 1.2 @ 55ml/hr x20 hrs to provide 1100ml 1320kcal 83g prot, 892ml free water - Rec to continue elemental TF formula while stool C-diff positive, +LBM - HOLD 1HR BEFORE AND AFTER SYNTHROID MEDS - Flush per . HOB over 30 degrees ADDITIONAL RECOMMENDATIONS: 1) Per SNF: 5'4" and 81# Maintain calibrated bed scale wts w/ added P200 mattress 2) Lytes daily madhav w/ loose stools, replete as needed 3) Skin integrity: Continue BRIAN VIA GT BID + Vit C 4) Accuchecks for Hypoglycemia 5) Add probiotics for stool C-diff+ . George Woods Feb 09, 2020 15:28
[2020-02-09 16:00] VITALS: BP 103/57
[2020-02-09] MEDS: NS IVPB SCH (17:13)
[2020-02-09] MEDS: GENTAMICIN IVPB SCH (17:13)
[2020-02-09 20:00] VITALS: BP 105/49
[2020-02-10] VITALS: BP 102/52
[2020-02-10] MEDS: D5 1/2NS 1,000 ML IV SCH ×3 (00:12→18:07)
[2020-02-10 03:53] VITALS: BP 104/65
[2020-02-10 05:23] LABS: BASOPHILS % (AUTO) 1.3 % (0.0-2.0); EOSINOPHILS % (AUTO) 4.6 % (0.0-3.0); HEMATOCRIT 24.2 % (37.0-47.0); LYMPHOCYTES % (AUTO) 24.4 % (20.0-45.0); MEAN CORPUSCULAR VOLUME 90 FL (80-99); MONOCYTES % (AUTO) 11.4 % (1.0-10.0); NEUTROPHILS % (AUTO) 58.3 % (45.0-75.0); PLATELET COUNT 625 K/UL (150-450); RED CELL DISTRIBUTION WIDTH 14.3 % (11.6-14.8); WHITE BLOOD COUNT 9.9 K/UL (4.8-10.8)
--- NOTE | 2020-02-10 07:35 | Infectious Diseases Prog Note ---
Assessment/Plan 39yo F with: Severe Sepsis Fever, recurrent; SP Leukocytosis; recurrent; mild UTI -02/04 CXR: Bilateral mostly interstitial opacities; suspect largely chronic althoughthere may be an acute component at the left lung base. The latter does appear somewhat improved since the previous exam. -02/02 sp cx S. marcences (R ancef, CTX, mami; I Levo; S Genta, Ceftazidime, Cefepime, bactrim), GNR #2 -02/01 CXR: Interval development of retrocardiac airspace opacities which could represent atelectasis versus developing consolidation. u/a wbc 5-10, nit neg, leuk +2; -01/28 CXR: Subtle reticular nodular opacities in the left apex which may be related to scarring versus acute small airway disease/bronchitis CT c/abd/p wo: Study substantially limited due to lack of IV contrast. Findings most compatible with ileus and probable infectious or inflammatory enteritis or enterocolitis. Large low-attenuation pelvic fluid of uncertain significance, potentially reactive.Appendix not identified. Percutaneous gastrostomy tube adequately positioned in the stomach. Rectal tube. Urinary bladder wall thickening could be incidental, due to high outlet pressures, or could represent cystitis.Cholecystectomy. -01/27 u/a no pyuria, nit +, leuk +3; ucx >100k CRE K, pna (S Gentamycin), P . miriabilis, MDR P, fluorensces (I Gentamycin) CXR: no acute disease Bc xNTD -01/26 Bcx Neg -01/13 CXR: no acute disease -01/12 u/a wbc tnct, nit neg, latrell +3; ucx >100k C. tropicalis Bcx NTD Severe Cdiff colitis -01/30 Cdif toxin a/b neg -01/06 Cdif toxin + 01/27 KUB:Severely dilated small bowel loop in the central abdomen could reflect obstruction. Diffusely fluid distended colon. -01/13 KUB: no acute findings Recurrent GIB 01/06 u/aneg 12/30 BCx 1/2 +CONS, likely contaminant 12/30 UA neg, COVID rapid Ag neg 12/30 CXR 1. Density overlying the bilateral lung apices. May represent pleural thickening, multifocal airspace opacities, versus summation artifact. 01/01 BCx Neg 01/02 BCx Neg Acute blood loss anemia Possible pna on CXR, sp rx Seizure episode -01/10 CT head: Third and lateral ventriculomegaly. Associated enlargement of the extra axial CSF spaces indicates that this is probably due to central volume loss, but the possibility of hydrocephalus should also be considered. At the degree of volume loss is considerably out of proportion to patient's age. Periventricular deep white matter low-attenuation. Probably on the basis of microvascular ischemic change but given patient's age the possibility of demyelinating disease should be considered as well. 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 [facility] will continue to follow. Subjective Allergies: Coded Allergies: CARBAMAZEPINE (Verified Allergy, Unknown, 12/31/19) LORAZEPAM (Verified Allergy, Unknown, 12/31/19) AF NAD on vent WBC down to 9 Objective Last 24 Hour Vital Signs Date Time Temp Pulse Resp B/P (MAP) Pulse Ox O2 Delivery O2 Flow Rate FiO2 02/10/20 04:00 Mechanical Ventilator 02/10/20 04:00 30 02/10/20 03:53 97.9 76 22 104/65 (78) 100 02/10/20 03:39 74 02/10/20 03:20 77 16 35 02/10/20 00:00 98.1 67 20 102/52 (69) 100 02/10/20 00:00 30 02/10/20 00:00 Mechanical Ventilator 02/09/20 23:38 69 02/09/20 23:07 68 21 35 02/09/20 20:00 Mechanical Ventilator 02/09/20 20:00 30 02/09/20 20:00 97.9 73 20 105/49 (67) 100 02/09/20 19:40 69 24 35 02/09/20 19:32 75 02/09/20 16:00 30 02/09/20 16:00 79 02/09/20 16:00 Mechanical Ventilator 02/09/20 16:00 99.0 90 18 103/57 (72) 100 02/09/20 15:00 68 24 35 02/09/20 12:00 Mechanical Ventilator 02/09/20 12:00 72 02/09/20 12:00 97.9 74 16 107/56 (73) 100 02/09/20 12:00 30 02/09/20 11:20 71 21 35 02/09/20 08:00 75 02/09/20 08:00 30 02/09/20 08:00 96.6 79 19 98/55 (69) 100 02/09/20 08:00 Mechanical Ventilator 02/09/20 07:44 70 19 35 Height (Feet): 5 Height (Inches): 1.00 Weight (Pounds): 82 Gen: Young woman, chronically ill appearing HEENT: Trach CV: RRR Pulm: CTAB anteriorly on vent Abd: Thin, soft, NTND +PEG Ext: Thin, no c/c/e Laboratory Tests Test 02/09/20 13:29 02/09/20 22:54 02/10/20 05:00 02/10/20 05:10 POC Whole Blood Glucose 96 MG/DL (74-106) 85 MG/DL (74-106) Pending White Blood Count 9.9 K/UL (4.8-10.8) Red Blood Count 2.70 M/UL (4.20-5.40) L Hemoglobin 8.0 G/DL (12.0-16.0) L Hematocrit 24.2 % (37.0-47.0) L Mean Corpuscular Volume 90 FL (80-99) Mean Corpuscular Hemoglobin 29.8 PG (27.0-31.0) Mean Corpuscular Hemoglobin Concent 33.2 G/DL (32.0-36.0) Red Cell Distribution Width 14.3 % (11.6-14.8) Platelet Count 625 K/UL (150-450) H Mean Platelet Volume 5.5 FL (6.5-10.1) L Neutrophils (%) (Auto) 58.3 % (45.0-75.0) Lymphocytes (%) (Auto) 24.4 % (20.0-45.0) Monocytes (%) (Auto) 11.4 % (1.0-10.0) H Eosinophils (%) (Auto) 4.6 % (0.0-3.0) H Basophils (%) (Auto) 1.3 % (0.0-2.0) Random Gentamicin Level 1.4 ug/mL Current Medications Medications (Trade) Dose Ordered Sig/Villa Route PRN Reason Start Time Stop Time Status Last Admin Dose Admin Acetaminophen (Tylenol) 650 mg Q4H PRN GT Temp >100.5 02/01/20 20:30 03/02/20 20:29 02/08/20 20:41 Ascorbic Acid (Vitamin C) 500 mg DAILY GT 01/28/20 09:30 02/27/20 09:29 02/09/20 09:47 Clonazepam (KlonoPIN) 1 mg EVERY 8 HOURS ORAL 02/08/20 22:00 02/15/20 21:59 Dextrose/Sodium Chloride 1,000 ml @ 75 mls/hr [id number] IV 01/29/20 13:00 02/27/20 12:59 02/10/20 00:12 Famotidine (Pepcid I.v.) 20 mg Q12HR IVP 01/29/20 21:00 02/28/20 20:59 02/09/20 20:03 Gabapentin (Neurontin) 900 mg TID GT 01/28/20 09:30 02/19/20 09:29 02/09/20 17:13 Gentamicin Protocol (Gentamicin pharmacy to dose) 1 ea DAILY PRN MISC Per rx protocol 02/02/20 17:00 03/03/20 16:59 Gentamicin Sulfate 200 mg/ Sodium Chloride 115 ml @ 115 mls/hr Q24H IVPB 02/02/20 18:00 02/11/20 23:59 02/09/20 17:13 Haloperidol Lactate (Haldol) 5 mg Q6H PRN IM Agitation 01/28/20 09:30 02/15/20 09:29 Loperamide HCl (Imodium) 2 mg Q4H PRN ORAL Diarrhea 02/05/20 10:00 03/06/20 09:59 02/10/20 05:51 Midodrine (Pro-Amatine) 10 mg TID GT 02/07/20 18:00 04/21/20 17:59 02/09/20 17:13 Multivitamins (Multivitamins W/ Minerals 15ml Liquid) 15 ml DAILY GT 01/28/20 09:30 02/27/20 09:29 02/09/20 10:03 Pantoprazole (Protonix) 40 mg EVERY 12 HOURS IVP 01/31/20 09:30 03/01/20 09:29 02/09/20 20:03 Potassium Chloride (K-Dur) 40 meq TWICE A DAY ORAL 02/02/20 18:00 05/02/20 17:59 02/09/20 09:47 Sucralfate (Carafate) 1 gm FOUR TIMES A DAY ORAL 01/30/20 09:00 04/29/20 08:59 02/09/20 20:03 Thiamine HCl (Vitamin B1) 100 mg DAILY GT 01/28/20 09:30 02/27/20 09:29 02/09/20 09:47 Missy Rouse M.D. Feb 10, 2020 07:35
[2020-02-10 08:00] VITALS: BP 123/65
--- NOTE | 2020-02-10 08:58 | Diagnostic Imaging Report ---
EXAM: XR Chest, 1 View CLINICAL HISTORY: SOB TECHNIQUE: Frontal view of the chest. COMPARISON: Chest radiograph February 05, 2020 FINDINGS/IMPRESSION: Midline tracheostomy tube, unchanged. No definite infiltrate, pleural effusion, or pneumothorax. Note, the left costophrenic angle is excluded from the field of view. Mild vascular congestion. Overall, no significant interval change. The heart size is not enlarged.
--- NOTE | 2020-02-10 09:42 | Pulmonology Progress Note ---
Ivanna Mora [facility] 02/10/20 0941: Subjective ROS Limited/Unobtainable: No Allergies: Coded Allergies: CARBAMAZEPINE (Verified Allergy, Unknown, 12/31/19) LORAZEPAM (Verified Allergy, Unknown, 12/31/19) All Systems: reviewed and negative except above Subjective in JULIANA no signs of resp distress on current vent settings BP better , on Midodrine, off Dopamine gtt mild leuk resolved, remains afebrile CXR 02/09 - no definite infiltrate SCX + Serratia and Pseudomonas repeated venous Duplex BLE NGT Objective Last 24 Hour Vital Signs Date Time Temp Pulse Resp B/P (MAP) Pulse Ox O2 Delivery O2 Flow Rate FiO2 02/10/20 08:00 Mechanical Ventilator 02/10/20 08:00 96.6 67 21 123/65 (84) 100 02/10/20 08:00 69 02/10/20 08:00 30 02/10/20 04:00 Mechanical Ventilator 02/10/20 04:00 30 02/10/20 03:53 97.9 76 22 104/65 (78) 100 02/10/20 03:39 74 02/10/20 03:20 77 16 35 02/10/20 00:00 98.1 67 20 102/52 (69) 100 02/10/20 00:00 30 02/10/20 00:00 Mechanical Ventilator 02/09/20 23:38 69 02/09/20 23:07 68 21 35 02/09/20 20:00 Mechanical Ventilator 02/09/20 20:00 30 02/09/20 20:00 97.9 73 20 105/49 (67) 100 02/09/20 19:40 69 24 35 02/09/20 19:32 75 02/09/20 16:00 30 02/09/20 16:00 79 02/09/20 16:00 Mechanical Ventilator 02/09/20 16:00 99.0 90 18 103/57 (72) 100 02/09/20 15:00 68 24 35 02/09/20 12:00 Mechanical Ventilator 02/09/20 12:00 72 02/09/20 12:00 97.9 74 16 107/56 (73) 100 02/09/20 12:00 30 02/09/20 11:20 71 21 35 Intake and Output 9/25/20 9/26/20 19:00 07:00 Intake Total 1695.0 ml 1590 ml Output Total 400 ml Balance 1695.0 ml 1190 ml Intake Free Water 150 ml IV Total 1200.0 ml 890 ml Tube Feeding 495 ml 550 ml Stool Total 400 ml # Voids 2 Objective General Appearance: bedridden, pale, chronically ill looking, older than her biological age ; vent dependent female ; on vent SIMV 450-30%-12, PEEP 5 Lines, tubes and drains: trach HEENT: normocephalic, atraumatic Neck: trach - Portex #7, secretions small amount, yellow color, thin consistency Respiratory/Chest: CTAB Cardiovascular/Chest: regular rate, regular rhythm Abdomen: non tender, soft, G tube , Genitourinary/Rectal: [place] Extremities: no edema, muscle atrophy Neurologic: abnormal gait, awake, poorly responsive Musculoskeletal: atrophy BLE Skin: multiple tattoos Laboratory Tests 02/09/20 13:29: POC Whole Blood Glucose 96 02/09/20 22:54: POC Whole Blood Glucose 85 02/10/20 05:00: White Blood Count 9.9, Red Blood Count 2.70L, Hemoglobin 8.0L, Hematocrit 24.2L, Mean Corpuscular Volume 90, Mean Corpuscular Hemoglobin 29.8, Mean Corpuscular Hemoglobin Concent 33.2, Red Cell Distribution Width 14.3, Platelet Count 625H, Mean Platelet Volume 5.5L, Neutrophils (%) (Auto) 58.3, Lymphocytes (%) (Auto) 24.4, Monocytes (%) (Auto) 11.4H, Eosinophils (%) (Auto) 4.6H, Basophils (%) (Auto) 1.3, Random Gentamicin Level 1.4 02/10/20 05:10: POC Whole Blood Glucose [Pending] Current Medications Medications (Trade) Dose Ordered Sig/Villa Route PRN Reason Start Time Stop Time Status Last Admin Dose Admin Acetaminophen (Tylenol) 650 mg Q4H PRN GT Temp >100.5 02/01/20 20:30 03/02/20 20:29 02/08/20 20:41 Ascorbic Acid (Vitamin C) 500 mg DAILY GT 01/28/20 09:30 02/27/20 09:29 02/09/20 09:47 Clonazepam (KlonoPIN) 1 mg EVERY 8 HOURS ORAL 02/08/20 22:00 02/15/20 21:59 Dextrose/Sodium Chloride 1,000 ml @ 75 mls/hr [id number] IV 01/29/20 13:00 02/27/20 12:59 02/10/20 00:12 Famotidine (Pepcid I.v.) 20 mg Q12HR IVP 01/29/20 21:00 02/28/20 20:59 02/09/20 20:03 Gabapentin (Neurontin) 900 mg TID GT 01/28/20 09:30 02/19/20 09:29 02/09/20 17:13 Gentamicin Protocol (Gentamicin pharmacy to dose) 1 ea DAILY PRN MISC Per rx protocol 02/02/20 17:00 03/03/20 16:59 Gentamicin Sulfate 200 mg/ Sodium Chloride 115 ml @ 115 mls/hr Q24H IVPB 02/02/20 18:00 02/11/20 23:59 02/09/20 17:13 Haloperidol Lactate (Haldol) 5 mg Q6H PRN IM Agitation 01/28/20 09:30 02/15/20 09:29 Loperamide HCl (Imodium) 2 mg Q4H PRN ORAL Diarrhea 02/05/20 10:00 03/06/20 09:59 02/10/20 05:51 Midodrine (Pro-Amatine) 10 mg TID GT 02/07/20 18:00 04/21/20 17:59 02/09/20 17:13 Multivitamins (Multivitamins W/ Minerals 15ml Liquid) 15 ml DAILY GT 01/28/20 09:30 02/27/20 09:29 02/09/20 10:03 Pantoprazole (Protonix) 40 mg EVERY 12 HOURS IVP 01/31/20 09:30 03/01/20 09:29 02/09/20 20:03 Potassium Chloride (K-Dur) 40 meq TWICE A DAY ORAL 02/02/20 18:00 05/02/20 17:59 02/09/20 09:47 Sucralfate (Carafate) 1 gm FOUR TIMES A DAY ORAL 01/30/20 09:00 04/29/20 08:59 02/09/20 20:03 Thiamine HCl (Vitamin B1) 100 mg DAILY GT 01/28/20 09:30 02/27/20 09:29 02/09/20 09:47 Assessment/Plan Assessment/Plan ASSESSMENT VDRF/trach status Sepsis Possible pneumonia UTI recurrent GI bleeding severe C dif colitis Anemia secondary to GI bleeding Aspiration risk Dysphagia, feeding by G-tube Encephalopathy Acute kidney injury likely secondary to dehydration Recurrent bradycardia persistent Hypotension Electrolyte imbalance Severe protein calorie malnutrition Hx of hypertension History of CVA Seizure disorder with witnessed seizure episode 01/07 Psychiatric disorder Presumed scabies, s/p Rx Thrombocytopenia-transient- resolved PLAN OF CARE JULIANA off Dopamine gtt, BP better with Midodrine only on IVF, vent support, pulm toilet ABG stable on current settings on SIMV mode 450-30-12 PEEP5 , no signs of resp distress on these settings keep settings as is and titrate as needed now tachypneic intermittently CXR 01/27 no acute disease pulm toilet via HHN CT chest 01/28 - with tree-in-bud nodular opacities in the medial left base and lingula with left bronchial bubbly material suggesting infectious or inflammatory bronchiolitis, likely due to aspiration. Small amount of similar foci seen in the right posterior lower lobe. Mild bronchiectasis and reticulation in the lingula, medial left base, and superior left upper lobe could also be due to chronic infection. CXR 02/01 -Interval development of retrocardiac airspace opacities which could represent atelectasis versus developing consolidation. probably ATX , given no fevers, resolved leukocytosis, no resp distress on current settings CXR 02/04 Bilateral mostly interstitial opacities; suspect largely chronic although there may be an acute component at the left lung base. The latter does appear somewhat improved since the previous exam. CXR 02/09 -> no definite infiltrate pancx-per ID CXR 01/13- no acute findings KUB 01/13- no acute findings UA + yeast , 01/12 UCX +yeast, started on Fluconazole 01/14 as per ID -completed BCX 01/12 NGTD BCX 01/26 and 01/27 NGTD Vanco po was prior dc and switched to Dificid , also on Flagyl per GI -till 01/28 , both extended till , completed inflammatory markers : ESR-42, CRP- wnl WBC smear NGT C dif a/b 01/30 NGT less output from rectal tube UCX 01/27 + Klebs CR- started on Gent per ID recs given prior leukocytosis and fevers SCX 02/02 + Serratia,Pseudomonas abx as per ID recs , Gent 02/10 ( extended for 3 days given mild leuk and fever), leuk resolved this am, no fever CXR 02/09 no significant findings, no definite infiltrate CT C/ A/P noted ( see results of CT chest above), CT A/P with findings most compatible with ileus and probable infectious or inflammatory enteritis or enterocolitis. off cefepime rapid COVID 19 NGT in ED aspiration precautions Venous Duplex BLE -negative, get SCD ( unable to give a/c given anemia) closely monitor hemodynamic status repeated Venous Duplex BLE NGT heme and GI follows s/p prior EGD 01/01 -> gastric ulcer across G tube site , no active bleeding s/p EGD 01/30 -> gastric ulceration without visible bleeding Protonix IV bid ( changed from Protonix gtt), Carafate GT feeding resumed as per GI , s/p blood tx 01/30 stool OB positive , another pending transfuse to keep Hgb > 7. HH at baseline trend LFT-> trended down, hep panel NGT hx of cirrhosis- per GI management monitor renal parameters, lytes, avoid nephrotoxic IVF BUN trending down, creat stable, likely prerenal due to dehydration replace e/lytes as per nephro recs , P and Mg replaced this am as per nephro monitor volumes seizure precautions, antiepileptic optimized as per neuro recs ammonia 49, fup with further neuro recs EEG - grossly abnormal; mild to mod encephalopathy, single ictal episode CT head no acute IC pathology BP management with current regimen SNF meds supportive care dietary recs s/p 12/31 Rx for presumed scabies with permethrin and Ivermectin, repeated Ivermectin 01/08 case discussed and evaluated by supervising physician Raul Esparza MD 02/10/20 1139: Subjective Allergies: Coded Allergies: CARBAMAZEPINE (Verified Allergy, Unknown, 12/31/19) LORAZEPAM (Verified Allergy, Unknown, 12/31/19) Assessment/Plan Assessment/Plan Patient seen and examined with [facility]. Agree with above A&P as it reflects our joint deliberations. Ivanna Mora NP Feb 10, 2020 09:41 Raul Esparza MD Feb 10, 2020 11:39
[2020-02-10] MEDS: Ascorbic Acid 500mg tab GT SCH (09:43)
[2020-02-10] MEDS: Thiamine 100mg tab GT SCH (09:43)
[2020-02-10] MEDS: Sucralfate 1gm tab ORAL SCH ×4 (09:43→20:11)
[2020-02-10] MEDS: Gabapentin 300 MG/6 ML Soln GT SCH ×3 (09:44→18:04)
[2020-02-10] MEDS: Pantoprazole Inj IVP SCH ×2 (09:44→20:11)
[2020-02-10] MEDS: Multivitamins W/Minerals 15 ML UDC GT SCH (09:44)
[2020-02-10] MEDS: Midodrine 10mg tab GT SCH ×3 (09:45→18:04)
--- NOTE | 2020-02-10 11:12 | Cardiology Progress Note ---
Assessment/Plan Assessment/Plan 1. Septic shock, continue midodrine. 2. Sinus bradycardia, resolved. 3. Anemia of chronic disease. 4. Acute renal failure, resolved. 5. GI bleeding due to gastric ulceration. 6. Dysphagia, s/p PEG placement, s/p EGD. 7. VDRF, s/p tracheostomy tube placement. 8. Hypomagnesemia, Mg sulfate to keep Mg level >2.5. Subjective Subjective Sinus rhythm at rate of 67. On the vent with FiO2 of 30%. Objective Last 24 Hour Vital Signs Date Time Temp Pulse Resp B/P (MAP) Pulse Ox O2 Delivery O2 Flow Rate FiO2 02/10/20 08:00 Mechanical Ventilator 02/10/20 08:00 96.6 67 21 123/65 (84) 100 02/10/20 08:00 69 02/10/20 08:00 30 02/10/20 04:00 Mechanical Ventilator 02/10/20 04:00 30 02/10/20 03:53 97.9 76 22 104/65 (78) 100 02/10/20 03:39 74 02/10/20 03:20 77 16 35 02/10/20 00:00 98.1 67 20 102/52 (69) 100 02/10/20 00:00 30 02/10/20 00:00 Mechanical Ventilator 02/09/20 23:38 69 02/09/20 23:07 68 21 35 02/09/20 20:00 Mechanical Ventilator 02/09/20 20:00 30 02/09/20 20:00 97.9 73 20 105/49 (67) 100 02/09/20 19:40 69 24 35 02/09/20 19:32 75 02/09/20 16:00 30 02/09/20 16:00 79 02/09/20 16:00 Mechanical Ventilator 02/09/20 16:00 99.0 90 18 103/57 (72) 100 02/09/20 15:00 68 24 35 02/09/20 12:00 Mechanical Ventilator 02/09/20 12:00 72 02/09/20 12:00 97.9 74 16 107/56 (73) 100 02/09/20 12:00 30 02/09/20 11:20 71 21 35 Intake and Output 02/09/20 02/10/20 19:00 07:00 Intake Total 1695.0 ml 1590 ml Output Total 400 ml Balance 1695.0 ml 1190 ml Intake Free Water 150 ml IV Total 1200.0 ml 890 ml Tube Feeding 495 ml 550 ml Stool Total 400 ml # Voids 2 2D Echo: LVEF 65%, RVSP 23 mmHg, Grade I LVDD Laboratory Tests Test 02/09/20 13:29 02/09/20 22:54 02/10/20 05:00 02/10/20 05:10 POC Whole Blood Glucose 96 MG/DL (74-106) 85 MG/DL (74-106) Pending White Blood Count 9.9 K/UL (4.8-10.8) Red Blood Count 2.70 M/UL (4.20-5.40) L Hemoglobin 8.0 G/DL (12.0-16.0) L Hematocrit 24.2 % (37.0-47.0) L Mean Corpuscular Volume 90 FL (80-99) Mean Corpuscular Hemoglobin 29.8 PG (27.0-31.0) Mean Corpuscular Hemoglobin Concent 33.2 G/DL (32.0-36.0) Red Cell Distribution Width 14.3 % (11.6-14.8) Platelet Count 625 K/UL (150-450) H Mean Platelet Volume 5.5 FL (6.5-10.1) L Neutrophils (%) (Auto) 58.3 % (45.0-75.0) Lymphocytes (%) (Auto) 24.4 % (20.0-45.0) Monocytes (%) (Auto) 11.4 % (1.0-10.0) H Eosinophils (%) (Auto) 4.6 % (0.0-3.0) H Basophils (%) (Auto) 1.3 % (0.0-2.0) Random Gentamicin Level 1.4 ug/mL Objective HEENT: PERRLA, EOMI, +Trach tube. NECK: Cannot assess JVP, no carotid bruit with normal upstroke. LUNGS: Bilateral rhonchi. CARDIAC: Regular rhythm and rate. Normal S1, S2, no murmurs, gallops or rubs. ABDOMEN: Soft with G-tube. No hepatomegaly. EXTREMITIES: No edema, clubbing or cyanosis. Desmond Gleason MD Feb 10, 2020 11:12
--- NOTE | 2020-02-10 11:13 | Nephrology Progress Note ---
Assessment/Plan Problem List: (1) RICHARD (acute kidney injury) (2) Dehydration (3) Anemia (4) GI bleed (5) Malnutrition (6) Seizure disorder (7) Electrolyte imbalance Assessment Renal failure, in the form of prerenal azotemia, most likely secondary to GI bleed GI bleed, leading to severe anemia Sepsis, pneumonia Chronic tracheostomy, ventilator dependent History of CVA History of seizure disorder History of psychiatric disorder Severe malnutrition Electrolyte abnormalities Plan February 09: No chemistry panel done today. Remains full code. Remains on ventilator. Continue per PMD. February 08: Labs reviewed. Electrolyte abnormalities addressed. Patient full code. Continue per current management. February 07: No chemistry panel done today. Remains stable from renal standpoint of view. Patient is full code. Order lab tomorrow. February 06: No chemistry panel drawn today. Clinically remains stable from renal standpoint of view. Patient is full code. February 05: Phosphorus and magnesium supplement given. Stable from renal standpoint of view. Remains full code February 04: No chemistry panel done today. Remains stable from renal standpoint of view. Continue to monitor renal parameters. February 03: Labs reviewed. Renal parameters stable. Continue her consultants. February 02: Lab reviewed. Low phosphorus low magnesium corrections ordered. Continue to monitor electrolytes and renal parameters. February 01: Lab reviewed. Low phosphorus and low magnesium replaced. Low potassium replaced. Continue to monitor electrolytes. Continue per cons ultants. January 31: Lab reviewed. Hemoglobin higher. Renal parameters stable. Potassium and phosphorus supplement given. January 30: Labs reviewed. Low mag low phosphorus and low potassium replaced. White blood cells 16,000 today. Remains full code. Continue to monitor hemoglobin and hematocrit and electrolytes. January 29: Labs reviewed. Magnesium, potassium, phosphorus supplement given. White blood cells down to 22,000. Remains full code. Continue per consultants. RN reports rectal bleed. Hemoglobin drifting down. Defer management to shift boss who is already on the case. January 28: Status quo. Electrolyte abnormalities noted. Mag Phos and potassium supplement IV given. Renal parameters stable. Continue per consultants. Leukocytosis persists. January 27: Significant rise in white blood cell counts. Hypotensive. Now in ICU. Will give albumin bolus. Continue to monitor renal parameters. Continue per ID advice. January 26: Continue to monitor renal parameters. Patient remains on ventilator. Patient is full code. Continue per consultants. January 25: Status quo. Labs reviewed. Continue per consultants. January 24: Status unchanged. Labs reviewed. Remains stable from renal standpoint of view. January 23: Back in [facility]. Stable from renal standpoint of view. Continue per consultants. January 22: Patient in ICU now. Vital signs and heart rate and blood pressure appears to be stable. Patient had an episode of bradycardia but it was resolved. TSH level today is very low will cut down on Synthroid dose. January 21: Today's labs are reviewed. Stable renal parameters. Continue per consultants. January 20: Labs reviewed. Renal parameters stable. January 19: Labs reviewed. Stable from renal standpoint. January 18: No labs done today. Continue per consultants. Medications reviewed. January 17: Late note entry due to system problem at the [facility] today.Chemistry panel reviewed. Stable from renal standpoint of view. Continue per current m anagement. January 16: No can panel today. Check lab tomorrow. Remains stable from renal standpoint of view. January 15: Lab reviewed. Renal parameters stable. January 14: Lab reviewed. Renal parameters stable. January 13: Labs reviewed. Stable from renal standpoint of view. January 12: Labs reviewed. Stable from renal standpoint of view January 11: No labs drawn today stable from renal standpoint of view January 10: Labs reviewed. Potassium supplement given. Continue per consultants. January 09: Lab reviewed. Potassium supplement given. IV fluid discontinued. January 08: Lab reviewed. Renal parameters stable. Continue per consultants. January 07: Lab reviewed. Renal parameters stable. Continue per consultants. January 06: Lab reviewed. Stable from renal standpoint of view. January 05: Labs reviewed. Stable from renal standpoint of view. Continue per consultants. January 04: No labs drawn today. Will check labs tomorrow. Continue per consultants. January 03: Lab reviewed. Renal parameters stable. IV fluid discontinued. High LFTs declining. Continue same. January 02: Lab reviewed. Renal parameters stable. Continue per PMD and consultants. LFTs remain elevated. Continue to monitor. Continue slow hydration Discontinue blood pressure medications as her blood pressure is low Discontinue diuretics Monitor renal parameters Transfusion as needed GI evaluation Correct electrolyte abnormalities Check B12 level, folate, and thyroid function tests: Results noted Subjective ROS Limited/Unobtainable: Yes Objective Objective Last 24 Hour Vital Signs Date Time Temp Pulse Resp B/P (MAP) Pulse Ox O2 Delivery O2 Flow Rate FiO2 02/10/20 08:00 Mechanical Ventilator 02/10/20 08:00 96.6 67 21 123/65 (84) 100 02/10/20 08:00 69 02/10/20 08:00 30 02/10/20 04:00 Mechanical Ventilator 02/10/20 04:00 30 02/10/20 03:53 97.9 76 22 104/65 (78) 100 02/10/20 03:39 74 02/10/20 03:20 77 16 35 02/10/20 00:00 98.1 67 20 102/52 (69) 100 02/10/20 00:00 30 02/10/20 00:00 Mechanical Ventilator 02/09/20 23:38 69 02/09/20 23:07 68 21 35 02/09/20 20:00 Mechanical Ventilator 02/09/20 20:00 30 02/09/20 20:00 97.9 73 20 105/49 (67) 100 02/09/20 19:40 69 24 35 02/09/20 19:32 75 02/09/20 16:00 30 02/09/20 16:00 79 02/09/20 16:00 Mechanical Ventilator 02/09/20 16:00 99.0 90 18 103/57 (72) 100 02/09/20 15:00 68 24 35 02/09/20 12:00 Mechanical Ventilator 02/09/20 12:00 72 02/09/20 12:00 97.9 74 16 107/56 (73) 100 02/09/20 12:00 30 02/09/20 11:20 71 21 35 Intake and Output 02/09/20 02/10/20 19:00 07:00 Intake Total 1695.0 ml 1590 ml Output Total 400 ml Balance 1695.0 ml 1190 ml Intake Free Water 150 ml IV Total 1200.0 ml 890 ml Tube Feeding 495 ml 550 ml Stool Total 400 ml # Voids 2 No chemistry panel done today Laboratory Tests 02/09/20 13:29: POC Whole Blood Glucose 96 02/09/20 22:54: POC Whole Blood Glucose 85 02/10/20 05:00: White Blood Count 9.9, Red Blood Count 2.70L, Hemoglobin 8.0L, Hematocrit 24.2L, Mean Corpuscular Volume 90, Mean Corpuscular Hemoglobin 29.8, Mean Corpuscular Hemoglobin Concent 33.2, Red Cell Distribution Width 14.3, Platelet Count 625H, Mean Platelet Volume 5.5L, Neutrophils (%) (Auto) 58.3, Lymphocytes (%) (Auto) 24.4, Monocytes (%) (Auto) 11.4H, Eosinophils (%) (Auto) 4.6H, Basophils (%) (Auto) 1.3, Random Gentamicin Level 1.4 02/10/20 05:10: POC Whole Blood Glucose [Pending] Height (Feet): 5 Height (Inches): 1.00 Weight (Pounds): 82 General Appearance: no apparent distress EENT: other - Intubated on mechanical ventilation Cardiovascular: normal rate Respiratory/Chest: decreased breath sounds Abdomen: distended Objective No change Chivo Holloway MD Feb 10, 2020 11:13
[2020-02-10 12:00] VITALS: BP 124/83
--- NOTE | 2020-02-10 12:57 | General Progress Note ---
Subjective Constitutional: Reports: no symptoms HEENT: Reports: no symptoms Cardiovascular: Reports: no symptoms Respiratory: Reports: no symptoms Gastrointestinal/Abdominal: Reports: no symptoms Genitourinary: Reports: no symptoms Neurologic/Psychiatric: Reports: no symptoms Hematologic/Lymphatic: Reports: no symptoms Allergies: Coded Allergies: CARBAMAZEPINE (Verified Allergy, Unknown, 12/31/19) LORAZEPAM (Verified Allergy, Unknown, 12/31/19) Objective Last 24 Hour Vital Signs Date Time Temp Pulse Resp B/P (MAP) Pulse Ox O2 Delivery O2 Flow Rate FiO2 02/10/20 12:07 Mechanical Ventilator 02/10/20 12:00 30 02/10/20 08:00 Mechanical Ventilator 02/10/20 08:00 96.6 67 21 123/65 (84) 100 02/10/20 08:00 69 02/10/20 08:00 30 02/10/20 04:00 Mechanical Ventilator 02/10/20 04:00 30 02/10/20 03:53 97.9 76 22 104/65 (78) 100 02/10/20 03:39 74 02/10/20 03:20 77 16 35 02/10/20 00:00 98.1 67 20 102/52 (69) 100 02/10/20 00:00 30 02/10/20 00:00 Mechanical Ventilator 02/09/20 23:38 69 02/09/20 23:07 68 21 35 02/09/20 20:00 Mechanical Ventilator 02/09/20 20:00 30 02/09/20 20:00 97.9 73 20 105/49 (67) 100 02/09/20 19:40 69 24 35 02/09/20 19:32 75 02/09/20 16:00 30 02/09/20 16:00 79 02/09/20 16:00 Mechanical Ventilator 02/09/20 16:00 99.0 90 18 103/57 (72) 100 02/09/20 15:00 68 24 35 Intake and Output 02/09/20 02/10/20 19:00 07:00 Intake Total 1695.0 ml 1590 ml Output Total 400 ml Balance 1695.0 ml 1190 ml Intake Free Water 150 ml IV Total 1200.0 ml 890 ml Tube Feeding 495 ml 550 ml Stool Total 400 ml # Voids 2 Laboratory Tests 02/09/20 13:29: POC Whole Blood Glucose 96 02/09/20 22:54: POC Whole Blood Glucose 85 02/10/20 05:00: White Blood Count 9.9, Red Blood Count 2.70L, Hemoglobin 8.0L, Hematocrit 24.2L, Mean Corpuscular Volume 90, Mean Corpuscular Hemoglobin 29.8, Mean Corpuscular Hemoglobin Concent 33.2, Red Cell Distribution Width 14.3, Platelet Count 625H, Mean Platelet Volume 5.5L, Neutrophils (%) (Auto) 58.3, Lymphocytes (%) (Auto) 24.4, Monocytes (%) (Auto) 11.4H, Eosinophils (%) (Auto) 4.6H, Basophils (%) (Auto) 1.3, Random Gentamicin Level 1.4 02/10/20 05:10: POC Whole Blood Glucose [Pending] 02/10/20 12:31: POC Whole Blood Glucose 90 Height (Feet): 5 Height (Inches): 1.00 Weight (Pounds): 82 General Appearance: no apparent distress, alert EENT: normal ENT inspection Neck: supple Cardiovascular: normal rate, regular rhythm, regularly irregular, no gallop/murmur, no JVD, bradycardia Respiratory/Chest: lungs clear, normal breath sounds, no respiratory distress, no accessory muscle use Abdomen: normal bowel sounds, non tender, soft, no organomegaly, no mass Extremities: non-tender Neurologic: alert, aphasia Assessment/Plan Problem List: (1) Pneumonia ICD Codes: J18.9 - Pneumonia, unspecified organism SNOMED: 065720108 (2) Sepsis ICD Codes: A41.9 - Sepsis, unspecified organism SNOMED: 21752270 (3) GI bleed ICD Codes: K92.2 - Gastrointestinal hemorrhage, unspecified SNOMED: 62938138 (4) Anemia ICD Codes: D64.9 - Anemia, unspecified SNOMED: 820410543 (5) Seizure disorder ICD Codes: G40.909 - Epilepsy, unspecified, not intractable, without status epilepticus SNOMED: 946919300 (6) Malnutrition ICD Codes: E46 - Unspecified protein-calorie malnutrition SNOMED: 61151110 (7) Thrombocytopenia ICD Codes: D69.6 - Thrombocytopenia, unspecified SNOMED: 566580209 Status: stable, other - Patient is now hypotensive before over 46 she will receive 500 cc of normal saline bolus to be repeated blood pressure remained below 90 further management will be decided following the boluses treatment repeat laboratory tests will be done in a.m. GLENNY MCKAY MD Status Narrative Patient is awake alert oriented with eye contact but short attention span she was supposed to be discharged yesterday but discharge was canceled because of hypokalemia to replacement was given patient currently is in stable condition repeat laboratory tests will be done in a.m. GLENNY MCKAY MD Assessment/Plan: Glenny Guadarrama MD Feb 10, 2020 12:57
[2020-02-10 16:00] VITALS: BP 125/63
[2020-02-10] MEDS: NS IVPB SCH (18:05)
[2020-02-10] MEDS: GENTAMICIN IVPB SCH (18:05)
--- NOTE | 2020-02-10 19:54 | Surgery Progress Note ---
Surgery Progress Note Subjective Symptoms: improved, tolerating diet, voiding well, passing flatus, BM Objective Last 24 Hour Vital Signs Date Time Temp Pulse Resp B/P (MAP) Pulse Ox O2 Delivery O2 Flow Rate FiO2 02/10/20 18:33 75 31 45 02/10/20 16:00 87 02/10/20 16:00 30 02/10/20 16:00 Mechanical Ventilator 02/10/20 16:00 30 02/10/20 16:00 97.7 89 24 125/63 (83) 100 02/10/20 15:03 79 28 45 02/10/20 12:07 Mechanical Ventilator 02/10/20 12:00 30 02/10/20 12:00 97.7 71 21 124/83 (97) 99 02/10/20 12:00 69 02/10/20 11:53 69 28 35 02/10/20 08:00 Mechanical Ventilator 02/10/20 08:00 96.6 67 21 123/65 (84) 100 02/10/20 08:00 69 02/10/20 08:00 30 02/10/20 07:56 68 21 35 02/10/20 04:00 Mechanical Ventilator 02/10/20 04:00 30 02/10/20 03:53 97.9 76 22 104/65 (78) 100 02/10/20 03:39 74 02/10/20 03:20 77 16 35 02/10/20 00:00 98.1 67 20 102/52 (69) 100 02/10/20 00:00 30 02/10/20 00:00 Mechanical Ventilator 02/09/20 23:38 69 02/09/20 23:07 68 21 35 02/09/20 20:00 Mechanical Ventilator 02/09/20 20:00 30 02/09/20 20:00 97.9 73 20 105/49 (67) 100 I&O Intake and Output 0 02/09/20 02/10/20 19:00 07:00 Intake Total 1695.0 ml 1590 ml Output Total 400 ml Balance 1695.0 ml 1190 ml Intake Free Water 150 ml IV Total 1200.0 ml 890 ml Tube Feeding 495 ml 550 ml Stool Total 400 ml # Voids 2 Dressing: saturated Cardiovascular: RSR Respiratory: decreased breath sounds Abdomen: soft, non-tender, present bowel sounds Extremities: no cyanosis Laboratory Tests Test 02/09/20 22:54 02/10/20 05:00 02/10/20 05:10 02/10/20 12:31 POC Whole Blood Glucose 85 MG/DL (74-106) Pending 90 MG/DL (74-106) White Blood Count 9.9 K/UL (4.8-10.8) Red Blood Count 2.70 M/UL (4.20-5.40) L Hemoglobin 8.0 G/DL (12.0-16.0) L Hematocrit 24.2 % (37.0-47.0) L Mean Corpuscular Volume 90 FL (80-99) Mean Corpuscular Hemoglobin 29.8 PG (27.0-31.0) Mean Corpuscular Hemoglobin Concent 33.2 G/DL (32.0-36.0) Red Cell Distribution Width 14.3 % (11.6-14.8) Platelet Count 625 K/UL (150-450) H Mean Platelet Volume 5.5 FL (6.5-10.1) L Neutrophils (%) (Auto) 58.3 % (45.0-75.0) Lymphocytes (%) (Auto) 24.4 % (20.0-45.0) Monocytes (%) (Auto) 11.4 % (1.0-10.0) H Eosinophils (%) (Auto) 4.6 % (0.0-3.0) H Basophils (%) (Auto) 1.3 % (0.0-2.0) Random Gentamicin Level 1.4 ug/mL Test 02/10/20 18:37 POC Whole Blood Glucose Pending Plan Problems: (1) Pneumonia (2) Sepsis Assessment & Plan: leukocytosis anemia lactic acidosis agree with GI recommend EGD planned for 12/31 hold feeding for now trend h/h monitor for bleeding no acute hemorrhage will be available in event needs exploration for hemostasis prbc as per heme thank you will follow with recs cont abx worsening wbc wbc trending down comfortable appearing no n/v hypotensive in ICU again worse pending CT results - noted PICC ordered improving wbc improved labs and micro trending labs improved wbc resolved prognosis guarded Pt presented on admission in emaciated state. Pt has tracheostomy and GT. NO skin concerns noted to skin under collar of trach. NO erythema or evidence of skin erosion at GT site. Pt noted to have scaly pimple-like rash with webbing noted to R and L axillae, undersides of both breasts, Bilat groin and lower back. Tracking and webbing noted to hands and feet. Pt restless and scratching at skin. Non-Blanching erythema without induration or fluctuance noted to R and L hips and trochanteric areas.Non-blanching erythema noted along spine. Non-Blanching erythema without induration noted to Sacrum. Non-Blanching erythema noted to R and L Malleoli and both heels. Tx.Plan: Please apply Cavilon Skin Barrier to each bony Prominences at risks for Skin Breakdown. Cover each area with Optifoam drsgs. Change every 7 days and prn. Apply Moisture Barrier Paste to Sacrum. Cover with Optifoam drsg. Change every 3 days and prn. Reposition at least every 2hours or as tolerated. Off-load heels with pillow. APM/EMELI Mattress overlay. improving cont current care plan Incontinent social dermatitis noted around the bilateral groin creases and vaginal area. Site clean. Monitor for incontinence. There is marked enlargement of the third and lateral ventricles and extra axial CSF spaces, in particular the former. There is considerable periven tricular deep white matter low-attenuation. Otherwise normal mobley-white differentiation. No acute hemorrhage or edema. No mass effect nor midline shift. Visualized orbits and sinuses are unremarkable. The calvarium is intact Impression: Third and lateral ventriculomegaly. Associated enlargement of the extra axial CSF spaces indicates that this is probably due to central volume loss, but the possibility of hydrocephalus should also be considered. At the degree of volume loss is considerably out of proportion to patient's age. Correlate with clinical history Periventricular deep white matter low-attenuation. Probably on the basis of microvascular ischemic change but given patient's age the possibility of demyelinating disease should be considered as well. Negative for acute intracranial bleed or mass effect ABDOMEN: Liver: Unremarkable. Gallbladder and bile ducts: Cholecystectomy. No ductal dilation. Pancreas: Unremarkable. No ductal dilation. Spleen: Unremarkable. No splenomegaly. Adrenals: Unremarkable. No mass. Kidneys and ureters: Unremarkable. No obstructing stones. No hydronephrosis. Stomach and bowel: Operative bowel findings. Diffuse small bowel wall thickening with areas of distention and fluid-filled colonic loops. No clear focal transition point to suggest small bowel obstruction. PELVIS: Appendix: Appendix not identified. Bladder: Urinary bladder wall thickening could be incidental, due to high outlet pressures, or could represent cystitis. No stones. Reproductive: Unremarkable as visualized. ABDOMEN and PELVIS: Intraperitoneal space: Large low-attenuation pelvic fluid of uncertain significance, potentially reactive. No free air. Bones/joints: No acute fracture. No dislocation. Soft tissues: Bilateral buttock injection granulomas. Vasculature: Unremarkable. No abdominal aortic aneurysm. Lymph nodes: Unremarkable. No enlarged lymph nodes. Tubes, lines and devices: Percutaneous gastrostomy tube adequately positioned in the stomach. Rectal tube. Other findings: No perforation seen. IMPRESSION: 1. Study substantially limited due to lack of IV contrast. 2. Findings most compatible with ileus and probable infectious or inflammatory enteritis or enterocolitis. 3. Large low-attenuation pelvic fluid of uncertain significance, potentially reactive. 4. Appendix not identified. 5. Percutaneous gastrostomy tube adequately positioned in the stomach. Rectal tube. 6. Urinary bladder wall thickening could be incidental, due to high outlet pressures, or could represent cystitis. 7. Cholecystectomy. (3) GI bleed (4) G tube feedings Assessment & Plan: DAILY ESTIMATED NEEDS: Needs based on Underweight, critical care 37.3kg 30-40 kcals/kg 2328-3590 total kcals 1.25-2 g protein/kg 47-75 g total protein 25-35 mL/kg 933-1306 total fluid mLs NUTRITION DIAGNOSIS: Increased kcal and pro needs r/t underweight status as evidenced by BMI 14.1, pt is 68% of ideal body weight w/ generalized severe wasting, trach and peg dep. CURRENT TF:Vital AF 1.2 @55 x20 hrs ENTERAL NUTRITION RECOMMENDATIONS: Vital AF 1.2 @ 55ml/hr x20 hrs to provide 1100ml 1320kcal 83g prot, 892ml free water - Rec to continue elemental TF formula while stool C-diff positive, +LBM - HOLD 1HR BEFORE AND AFTER SYNTHROID MEDS - Flush per MD. HOB over 30 degrees ADDITIONAL RECOMMENDATIONS: 1) Per SNF: 5'4" and 81# Maintain calibrated bed scale wts w/ added P200 mattress 2) Lytes daily madhav w/ loose stools, replete as needed 3) Skin integrity: Continue BRIAN VIA GT BID + Vit C 4) Accuchecks for Hypoglycemia 5) Add probiotics for stool C-diff+ . George Woods Feb 10, 2020 19:54
[2020-02-10 20:00] VITALS: BP 118/61
[2020-02-11] VITALS: BP 108/56
[2020-02-11 04:00] VITALS: BP 101/56
[2020-02-11 08:00] VITALS: BP 96/46
--- NOTE | 2020-02-11 08:01 | Surgery Progress Note ---
Surgery Progress Note Subjective Additional Comments trying to take restraints off good local care to perineum improved erythema Objective Last 24 Hour Vital Signs Date Time Temp Pulse Resp B/P (MAP) Pulse Ox O2 Delivery O2 Flow Rate FiO2 02/11/20 04:00 Mechanical Ventilator 02/11/20 04:00 30 02/11/20 04:00 97.5 92 24 101/56 (71) 100 02/11/20 04:00 87 02/11/20 02:30 82 29 35 02/11/20 00:00 97.9 89 24 108/56 (73) 100 02/11/20 00:00 Mechanical Ventilator 02/10/20 23:33 86 02/10/20 23:11 79 27 45 02/10/20 20:00 Mechanical Ventilator 02/10/20 20:00 98.1 77 24 118/61 (80) 100 02/10/20 20:00 30 02/10/20 19:45 74 02/10/20 18:33 75 31 45 02/10/20 16:00 87 02/10/20 16:00 30 02/10/20 16:00 Mechanical Ventilator 02/10/20 16:00 30 02/10/20 16:00 97.7 89 24 125/63 (83) 100 02/10/20 15:03 79 28 45 02/10/20 12:07 Mechanical Ventilator 02/10/20 12:00 30 02/10/20 12:00 97.7 71 21 124/83 (97) 99 02/10/20 12:00 69 02/10/20 11:53 69 28 35 I&O Intake and Output 02/10/20 02/11/20 19:00 07:00 Intake Total 1920 ml 1650 ml Output Total 52 ml 500 ml Balance 1868 ml 1150 ml Intake Free Water 200 ml 160 ml IV Total 865 ml 830 ml Tube Feeding 495 ml 660 ml Other 360 ml Output Urine Total 2 ml Stool Total 50 ml 500 ml Dressing: saturated Cardiovascular: RSR Respiratory: clear, decreased breath sounds Abdomen: soft, non-tender, present bowel sounds, non-distended Extremities: no edema, no tenderness, no cyanosis Laboratory Tests Test 02/10/20 12:31 02/10/20 18:37 02/10/20 23:34 02/11/20 05:58 POC Whole Blood Glucose 90 MG/DL (74-106) Pending Pending 106 MG/DL (74-106) Plan Problems: (1) Pneumonia (2) Sepsis Assessment & Plan: leukocytosis anemia lactic acidosis agree with GI recommend EGD planned for 12/31 hold feeding for now trend h/h monitor for bleeding no acute hemorrhage will be available in event needs exploration for hemostasis prbc as per heme thank you will follow with recs cont abx worsening wbc wbc trending down comfortable appearing no n/v hypotensive in ICU again worse pending CT results - noted PICC ordered improving wbc improved labs and micro trending labs improved wbc resolved prognosis guarded Pt presented on admission in emaciated state. Pt has tracheostomy and GT. NO skin concerns noted to skin under collar of trach. NO erythema or evidence of skin erosion at GT site. Pt noted to have scaly pimple-like rash with webbing noted to R and L axillae, undersides of both breasts, Bilat groin and lower back. Tracking and webbing noted to hands and feet. Pt restless and scratching at skin. Non-Blanching erythema without induration or fluctuance noted to R and L hips and trochanteric areas.Non-blanching erythema noted along spine. Non-Blanching erythema without induration noted to Sacrum. Non-Blanching erythema noted to R and L Malleoli and both heels. Tx.Plan: Please apply Cavilon Skin Barrier to each bony Prominences at risks for Skin Breakdown. Cover each area with Optifoam drsgs. Change every 7 days and prn. Apply Moisture Barrier Paste to Sacrum. Cover with Optifoam drsg. Change every 3 days and prn. Reposition at least every 2hours or as tolerated. Off-load heels with pillow. APM/EMELI Mattress overlay. improving cont current care plan Incontinent social dermatitis noted around the bilateral groin creases and vaginal area. Site clean. Monitor for incontinence. There is marked enlargement of the third and lateral ventricles and extra axial CSF spaces, in particular the former. There is considerable periventricular deep white matter low-attenuation. Otherwise normal mobley-white differentiation. No acute hemorrhage or edema. No mass effect nor midline shift. Visualized orbits and sinuses are unremarkable. The calvarium is intact Impression: Third and lateral ventriculomegaly. Associated enlargement of the extra axial CSF spaces indicates that this is probably due to central volume loss, but the possibility of hydrocephalus should also be considered. At the degree of volume loss is considerably out of proportion to patient's age. Correlate with clinical history Periventricular deep white matter low-attenuation. Probably on the basis of microvascular ischemic change but given patient's age the possibility of demyelinating disease should be considered as well. Negative for acute intracranial bleed or mass effect ABDOMEN: Liver: Unremarkable. Gallbladder and bile ducts: Cholecystectomy. No ductal dilation. Pancreas: Unremarkable. No ductal dilation. Spleen: Unremarkable. No splenomegaly. Adrenals: Unremarkable. No mass. Kidneys and ureters: Unremarkable. No obstructing stones. No hydronephrosis. Stomach and bowel: Operative bowel findings. Diffuse small bowel wall thickening with areas of distention and fluid-filled colonic loops. No clear focal transition point to suggest small bowel obstruction. PELVIS: Appendix: Appendix not identified. Bladder: Urinary bladder wall thickening could be incidental, due to high outlet pressures, or could represent cystitis. No stones. Reproductive: Unremarkable as visualized. ABDOMEN and PELVIS: Intraperitoneal space: Large low-attenuation pelvic fluid of uncertain significance, potentially reactive. No free air. Bones/joints: No acute fracture. No dislocation. Soft tissues: Bilateral buttock injection granulomas. Vasculature: Unremarkable. No abdominal aortic aneurysm. Lymph nodes: Unremarkable. No enlarged lymph nodes. Tubes, lines and devices: Percutaneous gastrostomy tube adequately positioned in the stomach. Rectal tube. Other findings: No perforation seen. IMPRESSION: 1. Study substantially limited due to lack of IV contrast. 2. Findings most compatible with ileus and probable infectious or inflammatory enteritis or enterocolitis. 3. Large low-attenuation pelvic fluid of uncertain significance, potentially reactive. 4. Appendix not identified. 5. Percutaneous gastrostomy tube adequately positioned in the stomach. Rectal tube. 6. Urinary bladder wall thickening could be incidental, due to high outlet pressures, or could represent cystitis. 7. Cholecystectomy. (3) GI bleed (4) G tube feedings Assessment & Plan: DAILY ESTIMATED NEEDS: Needs based on Underweight, critical care 37.3kg 30-40 kcals/kg 9161-7132 total kcals 1.25-2 g protein/kg 47-75 g total protein 25-35 mL/kg 933-1306 total fluid mLs NUTRITION DIAGNOSIS: Increased kcal and pro needs r/t underweight status as evidenced by BMI 14.1, pt is 68% of ideal body weight w/ generalized severe wasting, trach and peg dep. CURRENT TF:Vital AF 1.2 @55 x20 hrs ENTERAL NUTRITION RECOMMENDATIONS: Vital AF 1.2 @ 55ml/hr x20 hrs to provide 1100ml 1320kcal 83g prot, 892ml free water - Rec to continue elemental TF formula while stool C-diff positive, +LBM - HOLD 1HR BEFORE AND AFTER SYNTHROID MEDS - Flush per . HOB over 30 degrees ADDITIONAL RECOMMENDATIONS: 1) Per SNF: 5'4" and 81# Maintain calibrated bed scale wts w/ added P200 mattress 2) Lytes daily madhav w/ loose stools, replete as needed 3) Skin integrity: Continue BRIAN VIA GT BID + Vit C 4) Accuchecks for Hypoglycemia 5) Add probiotics for stool C-diff+ . George Woods Feb 11, 2020 08:01
[2020-02-11] MEDS: Multivitamins W/Minerals 15 ML UDC GT SCH (09:00)
[2020-02-11] MEDS: Sucralfate 1gm tab ORAL SCH ×4 (09:00→20:25)
[2020-02-11] MEDS: Midodrine 10mg tab GT SCH ×3 (09:00→18:13)
[2020-02-11] MEDS: Gabapentin 300 MG/6 ML Soln GT SCH ×3 (09:00→18:13)
[2020-02-11] MEDS: Thiamine 100mg tab GT SCH (09:00)
[2020-02-11] MEDS: Ascorbic Acid 500mg tab GT SCH (09:00)
[2020-02-11] MEDS: Pantoprazole Inj IVP SCH ×2 (09:00→20:25)
--- NOTE | 2020-02-11 09:09 | Nephrology Progress Note ---
Assessment/Plan Problem List: (1) RICHARD (acute kidney injury) (2) Dehydration (3) Anemia (4) GI bleed (5) Malnutrition (6) Seizure disorder (7) Electrolyte imbalance Assessment Renal failure, in the form of prerenal azotemia, most likely secondary to GI bleed GI bleed, leading to severe anemia Sepsis, pneumonia Chronic tracheostomy, ventilator dependent History of CVA History of seizure disorder History of psychiatric disorder Severe malnutrition Electrolyte abnormalities Plan February 10: No can panel done today. Full code. On ventilator. Will order lab tomorrow. February 09: No chemistry panel done today. Remains full code. Remains on ventilator. Continue per PMD. February 08: Labs reviewed. Electrolyte abnormalities addressed. Patient full code. Continue per current management. February 07: No chemistry panel done today. Remains stable from renal standpoint of view. Patient is full code. Order lab tomorrow. February 06: No chemistry panel drawn today. Clinically remains stable from renal standpoint of view. Patient is full code. February 05: Phosphorus and magnesium supplement given. Stable from renal standpoint of view. Remains full code February 04: No chemistry panel done today. Remains stable from renal standpoint of view. Continue to monitor renal parameters. February 03: Labs reviewed. Renal parameters stable. Continue her consultants. February 02: Lab reviewed. Low phosphorus low magnesium corrections ordered. Continue to monitor electrolytes and renal parameters. February 01: Lab reviewed. Low phosphorus and low magnesium replaced. Low potassium replaced. Continue to monitor electrolytes. Continue per consultants. January 31: Lab reviewed. Hemoglobin higher. Renal parameters stable. Potassium and phosphorus supplement given. January 30: Labs reviewed. Low mag low phosphorus and low potassium replaced. White blood cells 16,000 today. Remains full code. Continue to monitor hemoglobin and hematocrit and electrolytes. January 29: Labs reviewed. Magnesium, potassium, phosphorus supplement given. White blood cells down to 22,000. Remains full code. Continue per consultants. RN reports rectal bleed. Hemoglobin drifting down. Defer management to diagnostics tech who is already on the case. January 28: Status quo. Electrolyte abnormalities noted. Mag Phos and potassium supplement IV given. Renal parameters stable. Continue per consultants. Leukocytosis persists. January 27: Significant rise in white blood cell counts. Hypotensive. Now in ICU. Will give albumin bolus. Continue to monitor renal parameters. Continue per ID advice. January 26: Continue to monitor renal parameters. Patient remains on ventilator. Patient is full code. Continue per consultants. January 25: Status quo. Labs reviewed. Continue per consultants. January 24: Status unchanged. Labs reviewed. Remains stable from renal standpoint of view. January 23: Back in [place]. Stable from renal standpoint of view. Continue per consultants. January 22: Patient in ICU now. Vital signs and heart rate and blood pressure appears to be stable. Patient had an episode of bradycardia but it was resolved. TSH level today is very low will cut down on Synthroid dose. January 21: Today's labs are reviewed. Stable renal parameters. Continue per consultants. January 20: Labs reviewed. Renal parameters stable. January 19: Labs reviewed. Stable from renal standpoint. January 18: No labs done today. Continue per consultants. Medications reviewed. January 17: Late note entry due to system problem at the [facility] today.Chemistry panel reviewed. Stable from renal standpoint of view. Continue per current management. January 16: No can panel today. Check lab tomorrow. Remains stable from renal standpoint of view. January 15: Lab reviewed. Renal parameters stable. January 14: Lab reviewed. Renal parameters stable. January 13: Labs reviewed. Stable from renal standpoint of view. January 12: Labs reviewed. Stable from renal standpoint of view January 11: No labs drawn today stable from renal standpoint of view January 10: Labs reviewed. Potassium supplement given. Continue per consultants. January 09: Lab reviewed. Potassium supplement given. IV fluid discontinued. January 08: Lab reviewed. Renal parameters stable. Continue per consultants. January 07: Lab reviewed. Renal parameters stable. Continue per consultants. January 06: Lab reviewed. Stable from renal standpoint of view. January 05: Labs reviewed. Stable from renal standpoint of view. Continue per consultants. January 04: No labs drawn today. Will check labs tomorrow. Continue per consultants. January 03: Lab reviewed. Renal parameters stable. IV fluid discontinued. High LFTs declining. Continue same. January 02: Lab reviewed. Renal parameters stable. Continue per PMD and consultants. LFTs remain elevated. Continue to monitor. Continue slow hydration Discontinue blood pressure medications as her blood pressure is low Discontinue diuretics Monitor renal parameters Transfusion as needed GI evaluation Correct electrolyte abnormalities Check B12 level, folate, and thyroid function tests: Results noted Subjective ROS Limited/Unobtainable: Yes Objective Objective Last 24 Hour Vital Signs Date Time Temp Pulse Resp B/P (MAP) Pulse Ox O2 Delivery O2 Flow Rate FiO2 02/11/20 08:00 97.7 86 17 96/46 (63) 100 86 02/11/20 07:55 71 26 35 02/11/20 04:00 Mechanical Ventilator 02/11/20 04:00 30 02/11/20 04:00 97.5 92 24 101/56 (71) 100 02/11/20 04:00 87 02/11/20 02:30 82 29 35 02/11/20 00:00 97.9 89 24 108/56 (73) 100 02/11/20 00:00 Mechanical Ventilator 02/10/20 23:33 86 02/10/20 23:11 79 27 45 02/10/20 20:00 Mechanical Ventilator 02/10/20 20:00 98.1 77 24 118/61 (80) 100 02/10/20 20:00 30 02/10/20 19:45 74 02/10/20 18:33 75 31 45 02/10/20 16:00 87 02/10/20 16:00 30 02/10/20 16:00 Mechanical Ventilator 02/10/20 16:00 30 02/10/20 16:00 97.7 89 24 125/63 (83) 100 02/10/20 15:03 79 28 45 02/10/20 12:07 Mechanical Ventilator 02/10/20 12:00 30 02/10/20 12:00 97.7 71 21 124/83 (97) 99 02/10/20 12:00 69 02/10/20 11:53 69 28 35 Intake and Output 02/10/20 02/11/20 19:00 07:00 Intake Total 1920 ml 1650 ml Output Total 52 ml 500 ml Balance 1868 ml 1150 ml Intake Free Water 200 ml 160 ml IV Total 865 ml 830 ml Tube Feeding 495 ml 660 ml Other 360 ml Output Urine Total 2 ml Stool Total 50 ml 500 ml No chemistry panel done today Laboratory Tests 02/10/20 12:31: POC Whole Blood Glucose 90 02/10/20 18:37: POC Whole Blood Glucose [Pending] 02/10/20 23:34: POC Whole Blood Glucose [Pending] 02/11/20 05:58: POC Whole Blood Glucose 106 Height (Feet): 5 Height (Inches): 1.00 Weight (Pounds): 82 General Appearance: no apparent distress EENT: other - Continue to be intubated on ventilator via tracheostomy Cardiovascular: normal rate Respiratory/Chest: decreased breath sounds Abdomen: distended Objective No change Chivo Holloway MD Feb 11, 2020 09:09
--- NOTE | 2020-02-11 09:32 | Pulmonology Progress Note ---
Ivanna Mora FINGERNAIL TECHNICIAN 02/11/20 0932: Subjective ROS Limited/Unobtainable: Yes Allergies: Coded Allergies: CARBAMAZEPINE (Verified Allergy, Unknown, 12/31/19) LORAZEPAM (Verified Allergy, Unknown, 12/31/19) All Systems: reviewed and negative except above Subjective in JULIANA no signs of resp distress on current vent settings BP better , on Midodrine, off Dopamine gtt mild leuk resolved, remains afebrile CXR 02/09 - no definite infiltrate SCX + Serratia and Pseudomonas repeated venous Duplex BLE NGT ? episode of seizure/ shaking, tremors reported by nursing Objective Last 24 Hour Vital Signs Date Time Temp Pulse Resp B/P (MAP) Pulse Ox O2 Delivery O2 Flow Rate FiO2 02/11/20 08:00 97.7 86 17 96/46 (63) 100 86 02/11/20 07:55 71 26 35 02/11/20 04:00 Mechanical Ventilator 02/11/20 04:00 30 02/11/20 04:00 97.5 92 24 101/56 (71) 100 02/11/20 04:00 87 02/11/20 02:30 82 29 35 02/11/20 00:00 97.9 89 24 108/56 (73) 100 02/11/20 00:00 Mechanical Ventilator 02/10/20 23:33 86 02/10/20 23:11 79 27 45 02/10/20 20:00 Mechanical Ventilator 02/10/20 20:00 98.1 77 24 118/61 (80) 100 02/10/20 20:00 30 02/10/20 19:45 74 02/10/20 18:33 75 31 45 02/10/20 16:00 87 02/10/20 16:00 30 02/10/20 16:00 Mechanical Ventilator 02/10/20 16:00 30 02/10/20 16:00 97.7 89 24 125/63 (83) 100 02/10/20 15:03 79 28 45 02/10/20 12:07 Mechanical Ventilator 02/10/20 12:00 30 02/10/20 12:00 97.7 71 21 124/83 (97) 99 02/10/20 12:00 69 02/10/20 11:53 69 28 35 Intake and Output 02/10/20 02/11/20 19:00 07:00 Intake Total 1920 ml 1650 ml Output Total 52 ml 500 ml Balance 1868 ml 1150 ml Intake Free Water 200 ml 160 ml IV Total 865 ml 830 ml Tube Feeding 495 ml 660 ml Other 360 ml Output Urine Total 2 ml Stool Total 50 ml 500 ml Objective General Appearance: bedridden, pale, chronically ill looking, older than her biological age ; vent dependent female ; on vent SIMV 450-30%-12, PEEP 5 Lines, tubes and drains: trach HEENT: normocephalic, atraumatic Neck: trach - Portex #7, secretions small amount, yellow color, thin consistency Respiratory/Chest: CTAB Cardiovascular/Chest: regular rate, regular rhythm Abdomen: non tender, soft, G tube , Genitourinary/Rectal: [place] Extremities: no edema, muscle atrophy Neurologic: abnormal gait, awake, poorly responsive Musculoskeletal: atrophy BLE Skin: multiple tattoos Laboratory Tests 02/10/20 12:31: POC Whole Blood Glucose 90 02/10/20 18:37: POC Whole Blood Glucose [Pending] 02/10/20 23:34: POC Whole Blood Glucose [Pending] 02/11/20 05:58: POC Whole Blood Glucose 106 Current Medications Medications (Trade) Dose Ordered Sig/Villa Route PRN Reason Start Time Stop Time Status Last Admin Dose Admin Acetaminophen (Tylenol) 650 mg Q4H PRN GT Temp >100.5 02/01/20 20:30 03/02/20 20:29 02/08/20 20:41 Ascorbic Acid (Vitamin C) 500 mg DAILY GT 01/28/20 09:30 02/27/20 09:29 02/10/20 09:43 Clonazepam (KlonoPIN) 1 mg EVERY 8 HOURS ORAL 02/08/20 22:00 02/15/20 21:59 Dextrose/Sodium Chloride 1,000 ml @ 75 mls/hr [id number] IV 01/29/20 13:00 02/27/20 12:59 02/10/20 18:07 Famotidine (Pepcid I.v.) 20 mg Q12HR IVP 01/29/20 21:00 02/28/20 20:59 02/10/20 20:11 Gabapentin (Neurontin) 900 mg TID GT 01/28/20 09:30 02/19/20 09:29 02/10/20 18:04 Gentamicin Protocol (Gentamicin pharmacy to dose) 1 ea DAILY PRN MISC Per rx protocol 02/02/20 17:00 03/03/20 16:59 Gentamicin Sulfate 200 mg/ Sodium Chloride 115 ml @ 115 mls/hr Q24H IVPB 02/02/20 18:00 02/11/20 23:59 02/10/20 18:05 Haloperidol Lactate (Haldol) 5 mg Q6H PRN IM Agitation 01/28/20 09:30 02/15/20 09:29 Loperamide HCl (Imodium) 2 mg Q4H PRN GT Diarrhea 02/10/20 23:45 03/11/20 23:44 02/10/20 23:57 Midodrine (Pro-Amatine) 10 mg TID GT 02/07/20 18:00 04/21/20 17:59 02/10/20 18:04 Multivitamins (Multivitamins W/ Minerals 15ml Liquid) 15 ml DAILY GT 01/28/20 09:30 02/27/20 09:29 02/10/20 09:44 Pantoprazole (Protonix) 40 mg EVERY 12 HOURS IVP 01/31/20 09:30 03/01/20 09:29 02/10/20 20:11 Potassium Chloride (K-Dur) 40 meq TWICE A DAY ORAL 02/02/20 18:00 05/02/20 17:59 02/10/20 18:05 Sucralfate (Carafate) 1 gm FOUR TIMES A DAY ORAL 01/30/20 09:00 04/29/20 08:59 02/10/20 20:11 Thiamine HCl (Vitamin B1) 100 mg DAILY GT 01/28/20 09:30 02/27/20 09:29 02/10/20 09:43 Assessment/Plan Assessment/Plan ASSESSMENT VDRF/trach status Sepsis Possible pneumonia UTI recurrent GI bleeding severe C dif colitis Anemia secondary to GI bleeding Aspiration risk Dysphagia, feeding by G-tube Encephalopathy Acute kidney injury likely secondary to dehydration Recurrent bradycardia persistent Hypotension Electrolyte imbalance Severe protein calorie malnutrition Hx of hypertension History of CVA Seizure disorder with witnessed seizure episode 01/07 Psychiatric disorder Presumed scabies, s/p Rx Thrombocytopenia-transient- resolved PLAN OF CARE JULIANA off Dopamine gtt, BP better with Midodrine only on IVF, vent support, pulm toilet ABG stable on current settings on SIMV mode 450-30-12 PEEP5 , no signs of resp distress on these settings keep settings as is and titrate as needed now tachypneic intermittently CXR 01/27 no acute disease pulm toilet via HHN CT chest 01/28 - with tree-in-bud nodular opacities in the medial left base and lingula with left bronchial bubbly material suggesting infectious or inflammatory bronchiolitis, likely due to aspiration. Small amount of similar foci seen in the right posterior lower lobe. Mild bronchiectasis and reticulation in the lingula, medial left base, and superior left upper lobe could also be due to chronic infection. CXR 02/01 -Interval development of retrocardiac airspace opacities which could represent atelectasis versus developing consolidation. probably ATX , given no fevers, resolved leukocytosis, no resp distress on current settings CXR 02/04 Bilateral mostly interstitial opacities; suspect largely chronic although there may be an acute component at the left lung base. The latter does appear somewhat improved since the previous exam. CXR 02/09 -> no definite infiltrate pancx-per ID CXR 01/13- no acute findings KUB 01/13- no acute findings UA + yeast , 01/12 UCX +yeast, started on Fluconazole 01/14 as per ID -completed BCX 01/12 NGTD BCX 01/26 and 01/27 NGTD Vanco po was prior dc and switched to Dificid , also on Flagyl per GI -till 01/28 , both extended till , completed inflammatory markers : ESR-42, CRP- wnl WBC smear NGT C dif a/b 01/30 NGT less output from rectal tube UCX 01/27 + Klebs CR- started on Gent per ID recs given prior leukocytosis and fevers SCX 02/02 + Serratia,Pseudomonas abx as per ID recs , Gent till 02/10 ( extended for 3 days given mild leuk and fever), leuk resolved no fever CXR 02/09 no significant findings, no definite infiltrate CT C/ A/P noted ( see results of CT chest above), CT A/P with findings most compatible with ileus and probable infectious or inflammatory enteritis or enterocolitis. off cefepime rapid COVID 19 NGT in ED aspiration precautions Venous Duplex BLE -negative, get SCD ( unable to give a/c given anemia) closely monitor hemodynamic status repeated Venous Duplex BLE NGT heme and GI follows s/p prior EGD 01/01 -> gastric ulcer across G tube site , no active bleeding s/p EGD 01/30 -> gastric ulceration without visible bleeding Protonix IV bid ( changed from Protonix gtt), Carafate GT feeding resumed as per GI , s/p blood tx 01/30 stool OB positive , another pending transfuse to keep Hgb > 7. HH at baseline trend LFT-> trended down, hep panel NGT hx of cirrhosis- per GI management monitor renal parameters, lytes, avoid nephrotoxic IVF BUN trending down, creat stable, likely prerenal due to dehydration replace e/lytes as per nephro recs , P and Mg replaced this am as per nephro monitor volumes seizure precautions, antiepileptic optimized as per neuro recs ammonia 49, fup with further neuro recs EEG - grossly abnormal; mild to mod encephalopathy, single ictal episode CT head no acute IC pathology BP management with current regimen SNF meds supportive care dietary recs s/p 12/31 Rx for presumed scabies with permethrin and Ivermectin, repeated Ivermectin 01/08 case discussed and evaluated by supervising physician Raul Esparza MD 02/12/20 1458: Subjective Allergies: Coded Allergies: CARBAMAZEPINE (Verified Allergy, Unknown, 12/31/19) LORAZEPAM (Verified Allergy, Unknown, 12/31/19) Assessment/Plan Assessment/Plan Patient seen and examined with FINGERNAIL TECHNICIAN. Agree with above A&P as it reflects our joint deliberations. Ivanna Mora NP Feb 11, 2020 09:32 Raul Esparza MD Feb 12, 2020 14:58
[2020-02-11 12:00] VITALS: BP 116/53
--- NOTE | 2020-02-11 13:55 | Hematology/Onc Progress Note ---
Assessment/Plan Assessment/Plan # Anemia rule out underlying gi bleed --> Dr. Carrillo has been consulted-->endosco gastric ulceration --> trend hgb 7-->7.4-->7.9-->8.1->9.6-->8.5->9.1-->10-->11-->10.3-->10.4-->11->9.8-->7.4 ->9-->10.5-->9.1-->8.7-->8.4 --> anemia panel ordered-->reviewed --> prn transfusion --> protonix started # Leukocytosis is likely related to pna on imaging --> abx has been started --> if wbc worsens, consider abx vanc/zosyn--> ceftriaxone-->vanc->fluc/fl agyl/vanc-->flagyl/fidoxomicin->vanc/cefepime/flagyl-->gentamcinflagyl --> smear is noted --> wbc 25-->15-->14-->16->7.6-->12-->20->13->11->14-->33-->16->8->11-->12 --> pressors prn # Thrombocytopenia med related v labs error --> plt trend 167-->61-->227->373->457 --> meds have been reviewed --> no hep or lovenox # Sepsis --> on abx for pna --> pressors as needed --> fluids as per pcp for hypotension # Pneumonia --> pulm, Dr. 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, will follow Subjective HEENT: Denies: no symptoms, eye pain, blurred vision, tearing, double vision, ear pain, ear discharge, nose pain, nose congestion, throat pain, throat swelling, mouth pain, mouth swelling, other Cardiovascular: Denies: no symptoms, chest pain, edema, irregular heart rate, lightheadedness, palpitations, syncope, other Respiratory: Denies: no symptoms, cough, shortness of breath, SOB with excertion, SOB at rest, sputum, wheezing, other Gastrointestinal/Abdominal: Denies: no symptoms, abdomen distended, abdominal pain, black stools, tarry stools, blood in stool, constipated, diarrhea, difficulty swallowing, nausea, poor appetite, poor fluid intake, rectal bleeding, vomiting, other Genitourinary: Denies: no symptoms, burning, discharge, frequency, flank pain, hematuria, incontinence, pain, urgency, other Neurologic/Psychiatric: Denies: no symptoms, anxiety, depressed, emotional problems, headache, numbness, paresthesia, pre-existing deficit, seizure, tingling, tremors, weakness, other Endocrine: Denies: no symptoms, excessive sweating, flushing, intolerance to cold, intolerance to heat, increased hunger, increased thirst, increased urine, unexplained weight gain, unexplained weight loss, other Hematologic/Lymphatic: Denies: no symptoms, anemia, easy bleeding, easy bruising, adenopathy, other Allergies: Coded Allergies: CARBAMAZEPINE (Verified Allergy, Unknown, 12/31/19) LORAZEPAM (Verified Allergy, Unknown, 12/31/19) Subjective 01/01 altered, trach, no bleedin wbc improved on abx, seen by gi 01/02 egd study noted, also with plts 61k, have vitaly Armendariz Rn, will recheck cbc 01/03 remains agitated, vitaly rn, no bleeding, cbc noted as well as id recs 01/04 on vent, with melena overnight, no bleeding, vitaly rn, labs reviewed 01/06 on vent, remains agitated, no bleeding, vitaly longoria, smear is noted 01/07 on vent, restless, asymptomatic, noncooperative 01/[address] John obtained, reviewed, meds adjusted, eeg pending 01/09 labs noted, no bleeding, ativan has been discontinued, meds reviewed 01/10 trach to vent, agitated, with wrist restraints, no major changes, no bleeding 01/11 labs are reviewed, on trach to vent, no bleeding, agitated overnight, no complaints 01/13 labs noted, no bleeding, is on vent/trach, no bleeding, vitaly rn, labs are noted 01/14 labs are noted, no bleeding, remains on v/t, remains agitated, no bleeding 01/15 is c.diff positive, wbc higher at 21k, labs noted, on abx, reviewed gi, id recs 01/16 remains on vent, wbc is improved, in sr, as abx per id 01/17 recieved dopamine, tube feeds, on soft restraints, no bleeding, vitaly rn 01/18 labs are noted, no bleeding, vitaly rn, no major changes 01/20 on dopamine gtt, with restraints, no major changes, labs noted 01/21 labs reviewed, no bleeding, vitaly rn, no major changes 01/22 transferred to icu for higher loc, dopamine on hold as bp is good, have increased Synthroid 01/23 labs are pending, meds noted, no bleeding, dopamine gtt ongoing, cbc noted 01/24 still nv, no bleeding, labs reviewed, vitaly rn, with rectal tube in place, on dopamine gtt 01/25 is on bipap, nv, no bleeding, remains on low dose pressorm hgb 11 01/27 on dopamine, hr was elevated overnight, cards aware 01/28 on vent, with ivfs running, rectal tube with red blood noted, consider gi eval 01/29 on vent, labs reviewed, wbc 22, hgb 8.4, on abx currently, vanc/flagyl/cefepime 02/02 labs reviewed, no bleeding, on vent, no night sweats, wbc improved 02/03 is on gtube feeds, with trach to vent, oxygen as needed, labs wbc better 02/04 nv, is on gt, on vent, no bleeding, labs are noted, guarded prognosis 02/05 labs are noted, nv, is on gt feeds, no bleeding, abx as needed 02/06 labs reviewed, is on tube feeds, on vent, nv, no bleeding 02/07 labs are noted, no bleeding, trach/to vent, wth gtube, meds reviewed 02/08 very agitated, no bleeding, med noted, no night sweats, in restraints 02/10 off dopamine currently, labs reviewed, overnight agitated Objective Objective Current Medications Medications (Trade) Dose Ordered Sig/Villa Route PRN Reason Start Time Stop Time Status Last Admin Dose Admin Acetaminophen (Tylenol) 650 mg Q4H PRN GT Temp >100.5 02/01/20 20:30 03/02/20 20:29 02/08/20 20:41 Ascorbic Acid (Vitamin C) 500 mg DAILY GT 01/28/20 09:30 02/27/20 09:29 02/11/20 09:00 Clonazepam (KlonoPIN) 1 mg EVERY 8 HOURS ORAL 02/08/20 22:00 02/15/20 21:59 02/11/20 12:52 Dextrose/Sodium Chloride 1,000 ml @ 75 mls/hr [id number] IV 01/29/20 13:00 02/27/20 12:59 02/10/20 18:07 Famotidine (Pepcid I.v.) 20 mg Q12HR IVP 01/29/20 21:00 02/28/20 20:59 02/11/20 09:00 Gabapentin (Neurontin) 900 mg TID GT 01/28/20 09:30 02/19/20 09:29 02/11/20 13:02 Gentamicin Protocol (Gentamicin pharmacy to dose) 1 ea DAILY PRN MISC Per rx protocol 02/02/20 17:00 03/03/20 16:59 Gentamicin Sulfate 200 mg/ Sodium Chloride 115 ml @ 115 mls/hr Q24H IVPB 02/02/20 18:00 02/11/20 23:59 02/10/20 18:05 Haloperidol Lactate (Haldol) 5 mg Q6H PRN IM Agitation 01/28/20 09:30 02/15/20 09:29 Loperamide HCl (Imodium) 2 mg Q4H PRN GT Diarrhea 02/10/20 23:45 03/11/20 23:44 02/10/20 23:57 Midodrine (Pro-Amatine) 10 mg TID GT 02/07/20 18:00 04/21/20 17:59 02/11/20 12:48 Multivitamins (Multivitamins W/ Minerals 15ml Liquid) 15 ml DAILY GT 01/28/20 09:30 02/27/20 09:29 02/11/20 09:00 Pantoprazole (Protonix) 40 mg EVERY 12 HOURS IVP 01/31/20 09:30 03/01/20 09:29 02/11/20 09:00 Potassium Chloride (K-Dur) 40 meq TWICE A DAY ORAL 02/02/20 18:00 05/02/20 17:59 02/11/20 09:00 Sucralfate (Carafate) 1 gm FOUR TIMES A DAY ORAL 01/30/20 09:00 04/29/20 08:59 02/11/20 12:48 Thiamine HCl (Vitamin B1) 100 mg DAILY GT 01/28/20 09:30 02/27/20 09:29 02/11/20 09:00 Last 24 Hour Vital Signs Date Time Temp Pulse Resp B/P (MAP) Pulse Ox O2 Delivery O2 Flow Rate FiO2 02/11/20 12:00 97.2 80 20 116/53 (74) 96 80 02/11/20 12:00 71 02/11/20 11:20 72 22 35 02/11/20 08:00 83 02/11/20 08:00 97.7 86 17 96/46 (63) 100 86 02/11/20 08:00 Mechanical Ventilator 02/11/20 08:00 30 02/11/20 07:55 71 26 35 02/11/20 04:00 Mechanical Ventilator 02/11/20 04:00 30 02/11/20 04:00 97.5 92 24 101/56 (71) 100 02/11/20 04:00 87 02/11/20 02:30 82 29 35 02/11/20 00:00 97.9 89 24 108/56 (73) 100 02/11/20 00:00 Mechanical Ventilator 02/10/20 23:33 86 02/10/20 23:11 79 27 45 02/10/20 20:00 Mechanical Ventilator 02/10/20 20:00 98.1 77 24 118/61 (80) 100 02/10/20 20:00 30 02/10/20 19:45 74 02/10/20 18:33 75 31 45 02/10/20 16:00 87 02/10/20 16:00 30 02/10/20 16:00 Mechanical Ventilator 02/10/20 16:00 30 02/10/20 16:00 97.7 89 24 125/63 (83) 100 02/10/20 15:03 79 28 45 02/10/20 12:07 Mechanical Ventilator 02/10/20 12:00 30 02/10/20 12:00 97.7 71 21 124/83 (97) 99 02/10/20 12:00 69 02/10/20 11:53 69 28 35 02/10/20 08:00 Mechanical Ventilator 02/10/20 08:00 96.6 67 21 123/65 (84) 100 02/10/20 08:00 69 02/10/20 08:00 30 02/10/20 07:56 68 21 35 02/10/20 04:00 Mechanical Ventilator 02/10/20 04:00 30 02/10/20 03:53 97.9 76 22 104/65 (78) 100 02/10/20 03:39 74 02/10/20 03:20 77 16 35 02/10/20 00:00 98.1 67 20 102/52 (69) 100 02/10/20 00:00 30 02/10/20 00:00 Mechanical Ventilator 02/09/20 23:38 69 02/09/20 23:07 68 21 35 02/09/20 20:00 Mechanical Ventilator 02/09/20 20:00 30 02/09/20 20:00 97.9 73 20 105/49 (67) 100 02/09/20 19:40 69 24 35 02/09/20 19:32 75 02/09/20 16:00 30 02/09/20 16:00 79 02/09/20 16:00 Mechanical Ventilator 02/09/20 16:00 99.0 90 18 103/57 (72) 100 02/09/20 15:00 68 24 35 Intake and Output 02/10/20 02/11/20 19:00 07:00 Intake Total 1920 ml 1650 ml Output Total 52 ml 500 ml Balance 1868 ml 1150 ml Intake Free Water 200 ml 160 ml IV Total 865 ml 830 ml Tube Feeding 495 ml 660 ml Other 360 ml Output Urine Total 2 ml Stool Total 50 ml 500 ml Labs Test 02/08/20 16:57 02/08/20 18:15 02/08/20 22:33 02/09/20 03:00 Sodium Level 138 MMOL/L (136-145) 138 MMOL/L (136-145) Potassium Level 4.1 MMOL/L (3.5-5.1) 3.9 MMOL/L (3.5-5.1) Chloride Level 105 MMOL/L (98-107) 104 MMOL/L (98-107) Carbon Dioxide Level 28 MMOL/L (21-32) 29 MMOL/L (21-32) Anion Gap 5 mmol/L (5-15) 5 mmol/L (5-15) Blood Urea Nitrogen 4 mg/dL (7-18) 6 mg/dL (7-18) Creatinine 0.3 MG/DL (0.55-1.30) 0.3 MG/DL (0.55-1.30) Estimat Glomerular Filtration Rate > 60 mL/min (>60) > 60 mL/min (>60) Glucose Level 123 MG/DL (74-106) 108 MG/DL (74-106) Calcium Level 8.3 MG/DL (8.5-10.1) 7.8 MG/DL (8.5-10.1) POC Whole Blood Glucose 122 MG/DL (74-106) White Blood Count 12.3 K/UL (4.8-10.8) Red Blood Count 2.83 M/UL (4.20-5.40) Hemoglobin 8.4 G/DL (12.0-16.0) Hematocrit 25.5 % (37.0-47.0) Mean Corpuscular Volume 90 FL (80-99) Mean Corpuscular Hemoglobin 29.6 PG (27.0-31.0) Mean Corpuscular Hemoglobin Concent 32.9 G/DL (32.0-36.0) Red Cell Distribution Width 14.1 % (11.6-14.8) Platelet Count 563 K/UL (150-450) Mean Platelet Volume 5.5 FL (6.5-10.1) Neutrophils (%) (Auto) 69.3 % (45.0-75.0) Lymphocytes (%) (Auto) 15.0 % (20.0-45.0) Monocytes (%) (Auto) 12.0 % (1.0-10.0) Eosinophils (%) (Auto) 1.9 % (0.0-3.0) Basophils (%) (Auto) 1.7 % (0.0-2.0) Phosphorus Level 2.2 MG/DL (2.5-4.9) Magnesium Level 1.6 MG/DL (1.8-2.4) Total Bilirubin 0.2 MG/DL (0.2-1.0) Aspartate Amino Transf (AST/SGOT) 11 U/L (15-37) Alanine Aminotransferase (ALT/SGPT) 8 U/L (12-78) Alkaline Phosphatase 65 U/L (46-116) Total Protein 5.2 G/DL (6.4-8.2) Albumin 1.6 G/DL (3.4-5.0) Globulin 3.6 g/dL Albumin/Globulin Ratio 0.4 (1.0-2.7) Test 02/09/20 04:45 02/09/20 13:29 02/09/20 22:54 02/10/20 05:00 POC Whole Blood Glucose 96 MG/DL (74-106) 85 MG/DL (74-106) White Blood Count 9.9 K/UL (4.8-10.8) Red Blood Count 2.70 M/UL (4.20-5.40) Hemoglobin 8.0 G/DL (12.0-16.0) Hematocrit 24.2 % (37.0-47.0) Mean Corpuscular Volume 90 FL (80-99) Mean Corpuscular Hemoglobin 29.8 PG (27.0-31.0) Mean Corpuscular Hemoglobin Concent 33.2 G/DL (32.0-36.0) Red Cell Distribution Width 14.3 % (11.6-14.8) Platelet Count 625 K/UL (150-450) Mean Platelet Volume 5.5 FL (6.5-10.1) Neutrophils (%) (Auto) 58.3 % (45.0-75.0) Lymphocytes (%) (Auto) 24.4 % (20.0-45.0) Monocytes (%) (Auto) 11.4 % (1.0-10.0) Eosinophils (%) (Auto) 4.6 % (0.0-3.0) Basophils (%) (Auto) 1.3 % (0.0-2.0) Random Gentamicin Level 1.4 ug/mL Test 02/10/20 05:10 02/10/20 12:31 02/10/20 18:37 02/10/20 23:34 POC Whole Blood Glucose 90 MG/DL (74-106) Test 02/11/20 05:58 02/11/20 12:41 POC Whole Blood Glucose 106 MG/DL (74-106) Height (Feet): 5 Height (Inches): 1.00 Weight (Pounds): 82 Objective Vital Signs General Appearance: ++ cachectic, chronically ill HEENT: normocephalic, atraumatic ++ trach Resp: other -. vent ++ Cardiovascular: regular rate, rhythm, no edema Gastrointestinal: gtube in place, without erythema Rectal: other - Hemoccult positive [place]: back normal, gait/station normal, non-tender Lymphatic: no adenopathy Baltazar Cortes MD Feb 11, 2020 13:55
[2020-02-11] MEDS: D5 1/2NS 1,000 ML IV SCH (15:20)
[2020-02-11 16:00] VITALS: BP 107/72
[2020-02-11 16:22] LABS: EOSINOPHILS % (AUTO) 3.1 % (0.0-3.0); HEMATOCRIT 25.5 % (37.0-47.0); HEMOGLOBIN 8.3 G/DL (12.0-16.0); LYMPHOCYTES % (AUTO) 24.1 % (20.0-45.0); MEAN CORPUSCULAR VOLUME 91 FL (80-99); MONOCYTES % (AUTO) 14.7 % (1.0-10.0); NEUTROPHILS % (AUTO) 56.1 % (45.0-75.0); PLATELET COUNT 739 K/UL (150-450); RED BLOOD COUNT 2.79 M/UL (4.20-5.40); RED CELL DISTRIBUTION WIDTH 15.2 % (11.6-14.8); WHITE BLOOD COUNT 11.8 K/UL (4.8-10.8)
[2020-02-11] MEDS: NS IVPB SCH (18:13)
[2020-02-11] MEDS: GENTAMICIN IVPB SCH (18:13)
[2020-02-11 20:00] VITALS: BP 112/64
[2020-02-11] MEDS ORDERED: NS 275ml ONE (20:52)
[2020-02-11] MEDS ORDERED: D5 1/2NS 1000ml IV ONE (20:52)
--- NOTE | 2020-02-11 22:26 | Cardiology Progress Note ---
Assessment/Plan Assessment/Plan 1. Septic shock, continue midodrine. 2. Sinus bradycardia, resolved. 3. Anemia of chronic disease. 4. Acute renal failure, resolved. 5. GI bleeding due to gastric ulceration. 6. Dysphagia, s/p PEG placement, s/p EGD. 7. VDRF, s/p tracheostomy tube placement. 8. Hypomagnesemia, Mg level in am. Subjective Subjective Sinus rhythm at rate of 66. On the vent with FiO2 of 35%. Objective Last 24 Hour Vital Signs Date Time Temp Pulse Resp B/P (MAP) Pulse Ox O2 Delivery O2 Flow Rate FiO2 02/11/20 20:00 35 02/11/20 20:00 97.0 66 16 112/64 (80) 100 02/11/20 19:40 65 22 35 02/11/20 19:35 71 02/11/20 16:00 30 02/11/20 16:00 97.1 77 20 107/72 (84) 97 80 02/11/20 16:00 Mechanical Ventilator 02/11/20 16:00 68 02/11/20 15:02 67 20 35 02/11/20 12:00 Mechanical Ventilator 02/11/20 12:00 30 02/11/20 12:00 97.2 80 20 116/53 (74) 96 80 02/11/20 12:00 71 02/11/20 11:20 72 22 35 02/11/20 08:00 83 02/11/20 08:00 97.7 86 17 96/46 (63) 100 86 02/11/20 08:00 Mechanical Ventilator 02/11/20 08:00 30 02/11/20 07:55 71 26 35 02/11/20 04:00 Mechanical Ventilator 02/11/20 04:00 30 02/11/20 04:00 97.5 92 24 101/56 (71) 100 02/11/20 04:00 87 02/11/20 02:30 82 29 35 02/11/20 00:00 97.9 89 24 108/56 (73) 100 02/11/20 00:00 Mechanical Ventilator 02/10/20 23:33 86 02/10/20 23:11 79 27 45 Intake and Output 02/10/20 02/11/20 19:00 07:00 Intake Total 1920 ml 1650 ml Output Total 52 ml 500 ml Balance 1868 ml 1150 ml Intake Free Water 200 ml 160 ml IV Total 865 ml 830 ml Tube Feeding 495 ml 660 ml Other 360 ml Output Urine Total 2 ml Stool Total 50 ml 500 ml 2D Echo: LVEF 65%, RVSP 23 mmHg, Grade I LVDD Laboratory Tests Test 02/10/20 23:34 02/11/20 05:58 02/11/20 12:41 02/11/20 15:33 POC Whole Blood Glucose Pending 106 MG/DL (74-106) Pending White Blood Count 11.8 K/UL (4.8-10.8) H Red Blood Count 2.79 M/UL (4.20-5.40) L Hemoglobin 8.3 G/DL (12.0-16.0) L Hematocrit 25.5 % (37.0-47.0) L Mean Corpuscular Volume 91 FL (80-99) Mean Corpuscular Hemoglobin 29.7 PG (27.0-31.0) Mean Corpuscular Hemoglobin Concent 32.5 G/DL (32.0-36.0) Red Cell Distribution Width 15.2 % (11.6-14.8) H Platelet Count 739 K/UL (150-450) H Mean Platelet Volume 5.8 FL (6.5-10.1) L Neutrophils (%) (Auto) 56.1 % (45.0-75.0) Lymphocytes (%) (Auto) 24.1 % (20.0-45.0) Monocytes (%) (Auto) 14.7 % (1.0-10.0) H Eosinophils (%) (Auto) 3.1 % (0.0-3.0) H Basophils (%) (Auto) 2.0 % (0.0-2.0) Objective HEENT: PERRLA, EOMI, +Trach tube. NECK: Cannot assess JVP, no carotid bruit with normal upstroke. LUNGS: Bilateral rhonchi. CARDIAC: Regular rhythm and rate. Normal S1, S2, no murmurs, gallops or rubs. ABDOMEN: Soft with G-tube. No hepatomegaly. EXTREMITIES: No edema, clubbing or cyanosis. Demsond Gleason MD Feb 11, 2020 22:26
[2020-02-12] VITALS: BP 83/51
[2020-02-12 04:00] VITALS: BP 112/50
[2020-02-12] MEDS: D5 1/2NS 1,000 ML IV SCH ×3 (04:28→21:24)
[2020-02-12 05:26] LABS: BASOPHILS % (AUTO) 1.4 % (0.0-2.0); HEMATOCRIT 26.5 % (37.0-47.0); HEMOGLOBIN 8.6 G/DL (12.0-16.0); LYMPHOCYTES % (AUTO) 25.4 % (20.0-45.0); MEAN CORPUSCULAR VOLUME 89 FL (80-99); MONOCYTES % (AUTO) 13.5 % (1.0-10.0); NEUTROPHILS % (AUTO) 55.7 % (45.0-75.0); PLATELET COUNT 739 K/UL (150-450); RED BLOOD COUNT 2.97 M/UL (4.20-5.40); RED CELL DISTRIBUTION WIDTH 14.5 % (11.6-14.8)
[2020-02-12 05:45] LABS: ALANINE AMINOTRANSFERASE 25 U/L (12-78); ALBUMIN 1.7 G/DL (3.4-5.0); ALBUMIN/GLOBULIN RATIO 0.4 (1.0-2.7); ALKALINE PHOSPHATASE 335 U/L (46-116); ANION GAP 4 mmol/L (5-15); ASPARTATE AMINO TRANSFERASE 26 U/L (15-37); BILIRUBIN,TOTAL 0.2 MG/DL (0.2-1.0); BLOOD UREA NITROGEN 7 mg/dL (7-18); CALCIUM 8.4 MG/DL (8.5-10.1); CARBON DIOXIDE 34 MMOL/L (21-32); CHLORIDE 100 MMOL/L (98-107); CREATININE 0.4 MG/DL (0.55-1.30); PHOSPHORUS 2.7 MG/DL (2.5-4.9); POTASSIUM 4.2 MMOL/L (3.5-5.1); SODIUM 138 MMOL/L (136-145)
[2020-02-12 08:00] VITALS: BP 94/59
[2020-02-12] MEDS: Sucralfate 1gm tab ORAL SCH ×4 (09:00→20:27)
[2020-02-12] MEDS: Multivitamins W/Minerals 15 ML UDC GT SCH (09:00)
[2020-02-12] MEDS: Midodrine 10mg tab GT SCH ×3 (09:58→17:54)
[2020-02-12] MEDS: Ascorbic Acid 500mg tab GT SCH (09:58)
[2020-02-12] MEDS: Thiamine 100mg tab GT SCH (09:58)
[2020-02-12] MEDS: Pantoprazole Inj IVP SCH ×2 (09:59→20:26)
[2020-02-12] MEDS: Gabapentin 300 MG/6 ML Soln GT SCH ×3 (10:08→17:54)
--- NOTE | 2020-02-12 10:11 | Pulmonology Progress Note ---
Ivanna Mora [employer] 02/12/20 1011: Subjective ROS Limited/Unobtainable: Yes Allergies: Coded Allergies: CARBAMAZEPINE (Verified Allergy, Unknown, 12/31/19) LORAZEPAM (Verified Allergy, Unknown, 12/31/19) Subjective in [place] no signs of resp distress on current vent settings BP better , on Midodrine, off Dopamine gtt mild leuk resolved, remains afebrile CXR 02/09 - no definite infiltrate SCX + Serratia and Pseudomonas repeated venous Duplex BLE NGT Objective Last 24 Hour Vital Signs Date Time Temp Pulse Resp B/P (MAP) Pulse Ox O2 Delivery O2 Flow Rate FiO2 02/12/20 08:00 97.9 89 20 94/59 (71) 100 02/12/20 08:00 Mechanical Ventilator 02/12/20 08:00 78 02/12/20 08:00 35 02/12/20 06:30 76 19 35 02/12/20 04:00 35 02/12/20 04:00 99.0 62 20 112/50 (70) 100 02/12/20 04:00 Mechanical Ventilator 02/12/20 03:42 65 02/12/20 03:30 65 21 35 02/12/20 00:00 35 02/12/20 00:00 81 02/12/20 00:00 97.7 72 20 83/51 (62) 100 02/12/20 00:00 Mechanical Ventilator 02/11/20 23:15 68 22 35 02/11/20 20:00 35 02/11/20 20:00 Mechanical Ventilator 02/11/20 20:00 97.0 66 16 112/64 (80) 100 02/11/20 19:40 65 22 35 02/11/20 19:35 71 02/11/20 16:00 30 02/11/20 16:00 97.1 77 20 107/72 (84) 97 80 02/11/20 16:00 Mechanical Ventilator 02/11/20 16:00 68 02/11/20 15:02 67 20 35 02/11/20 12:00 Mechanical Ventilator 02/11/20 12:00 30 02/11/20 12:00 97.2 80 20 116/53 (74) 96 80 02/11/20 12:00 71 02/11/20 11:20 72 22 35 Intake and Output 02/11/20 02/12/20 19:00 07:00 Intake Total 345 ml 1560 ml Output Total 1250 ml 300 ml Balance -905 ml 1260 ml Intake Free Water 180 ml IV Total 825 ml Tube Feeding 165 ml 605 ml Other 130 ml Output Urine Total 750 ml Stool Total 500 ml 300 ml # Voids 3 Objective General Appearance: bedridden, pale, chronically ill looking, older than her biological age ; vent dependent female ; on vent SIMV 450-30%-12, PEEP 5 Lines, tubes and drains: trach HEENT: normocephalic, atraumatic Neck: trach - Portex #7, secretions small amount, yellow color, thin consistency Respiratory/Chest: CTAB Cardiovascular/Chest: regular rate, regular rhythm Abdomen: non tender, soft, G tube , Genitourinary/Rectal: [place] Extremities: no edema, muscle atrophy Neurologic: abnormal gait, awake, poorly responsive Musculoskeletal: atrophy BLE Skin: multiple tattoos Laboratory Tests 02/11/20 12:41: POC Whole Blood Glucose [Pending] 02/11/20 15:33: White Blood Count 11.8H, Red Blood Count 2.79L, Hemoglobin 8.3L, Hematocrit 25.5L, Mean Corpuscular Volume 91, Mean Corpuscular Hemoglobin 29.7, Mean Corpuscular Hemoglobin Concent 32.5, Red Cell Distribution Width 15.2H, Platelet Count 739H, Mean Platelet Volume 5.8L, Neutrophils (%) (Auto) 56.1, Lymphocytes (%) (Auto) 24.1, Monocytes (%) (Auto) 14.7H, Eosinophils (%) (Auto) 3.1H, Basophils (%) (Auto) 2.0 02/11/20 23:16: POC Whole Blood Glucose 98 02/12/20 03:15: White Blood Count 10.0, Red Blood Count 2.97L, Hemoglobin 8.6L, Hematocrit 26.5L , Mean Corpuscular Volume 89, Mean Corpuscular Hemoglobin 28.9, Mean Corpuscular Hemoglobin Concent 32.5, Red Cell Distribution Width 14.5, Platelet Count 739H, Mean Platelet Volume 4.9L, Neutrophils (%) (Auto) 55.7, Lymphocytes (%) (Auto) 25.4, Monocytes (%) (Auto) 13.5H, Eosinophils (%) (Auto) 4.0H, Basophils (%) (Auto) 1.4, Sodium Level 138, Potassium Level 4.2, Chloride Level 100, Carbon Dioxide Level 34H, Anion Gap 4L, Blood Urea Nitrogen 7, Creatinine 0.4L, Estimat Glomerular Filtration Rate > 60, Glucose Level 83, Calcium Level 8.4L, Phosphorus Level 2.7, Magnesium Level 1.7L, Total Bilirubin 0.2, Aspartate Amino Transf (AST/SGOT) 26, Alanine Aminotransferase (ALT/SGPT) 25, Alkaline Phosphatase 335H, Total Protein 6.0L, Albumin 1.7L, Globulin 4.3, Albumin/Globulin Ratio 0.4L 02/12/20 05:22: POC Whole Blood Glucose 114H Current Medications Medications (Trade) Dose Ordered Sig/Villa Route PRN Reason Start Time Stop Time Status Last Admin Dose Admin Acetaminophen (Tylenol) 650 mg Q4H PRN GT Temp >100.5 02/01/20 20:30 03/02/20 20:29 02/08/20 20:41 Ascorbic Acid (Vitamin C) 500 mg DAILY GT 01/28/20 09:30 02/27/20 09:29 02/12/20 09:58 Clonazepam (KlonoPIN) 1 mg EVERY 8 HOURS ORAL 02/08/20 22:00 02/15/20 21:59 02/11/20 22:02 Dextrose/Sodium Chloride 1,000 ml @ 75 mls/hr [id number] IV 01/29/20 13:00 02/27/20 12:59 02/12/20 04:28 Famotidine (Pepcid I.v.) 20 mg Q12HR IVP 01/29/20 21:00 02/28/20 20:59 02/12/20 09:58 Gabapentin (Neurontin) 900 mg TID GT 01/28/20 09:30 02/19/20 09:29 02/12/20 10:08 Gentamicin Protocol (Gentamicin pharmacy to dose) 1 ea DAILY PRN MISC Per rx protocol 02/02/20 17:00 03/03/20 16:59 Haloperidol Lactate (Haldol) 5 mg Q6H PRN IM Agitation 01/28/20 09:30 02/15/20 09:29 Loperamide HCl (Imodium) 2 mg Q4H PRN GT Diarrhea 02/10/20 23:45 03/11/20 23:44 02/12/20 10:00 Magnesium Sulfate 100 ml @ 100 mls/hr Q1H IVPB 02/12/20 10:00 02/12/20 11:59 02/12/20 10:00 Midodrine (Pro-Amatine) 10 mg TID GT 02/07/20 18:00 04/21/20 17:59 02/12/20 09:58 Multivitamins (Multivitamins W/ Minerals 15ml Liquid) 15 ml DAILY GT 01/28/20 09:30 02/27/20 09:29 02/12/20 09:00 Pantoprazole (Protonix) 40 mg EVERY 12 HOURS IVP 01/31/20 09:30 03/01/20 09:29 02/12/20 09:59 Potassium Chloride (K-Dur) 40 meq TWICE A DAY ORAL 02/02/20 18:00 05/02/20 17:59 02/12/20 10:00 Sucralfate (Carafate) 1 gm FOUR TIMES A DAY ORAL 01/30/20 09:00 04/29/20 08:59 02/12/20 09:00 Thiamine HCl (Vitamin B1) 100 mg DAILY GT 01/28/20 09:30 02/27/20 09:29 02/12/20 09:58 Assessment/Plan Assessment/Plan ASSESSMENT VDRF/trach status Sepsis Possible pneumonia UTI recurrent GI bleeding severe C dif colitis Anemia secondary to GI bleeding Aspiration risk Dysphagia, feeding by G-tube Encephalopathy Acute kidney injury likely secondary to dehydration Recurrent bradycardia persistent Hypotension Electrolyte imbalance Severe protein calorie malnutrition Hx of hypertension History of CVA Seizure disorder with witnessed seizure episode 01/07 Psychiatric disorder Presumed scabies, s/p Rx Thrombocytopenia-transient- resolved PLAN OF CARE JULIANA off Dopamine gtt, BP better with Midodrine only on IVF, vent support, pulm toilet ABG stable on current settings on SIMV mode 450-30-12 PEEP5 , no signs of resp distress on these settings keep settings as is and titrate as needed now tachypneic intermittently CXR 01/27 no acute disease pulm toilet via N CT chest 01/28 - with tree-in-bud nodular opacities in the medial left base and lingula with left bronchial bubbly material suggesting infectious or inflammatory bronchiolitis, likely due to aspiration. Small amount of similar foci seen in the right posterior lower lobe. Mild bronchiectasis and reticulation in the lingula, medial left base, and superior left upper lobe could also be due to chronic infection. CXR 02/01 -Interval development of retrocardiac airspace opacities which could represent atelectasis versus developing consolidation. probably ATX , given no fevers, resolved leukocytosis, no resp distress on current settings CXR 02/04 Bilateral mostly interstitial opacities; suspect largely chronic although there may be an acute component at the left lung base. The latter does appear somewhat improved since the previous exam. CXR 02/09 -> no definite infiltrate pancx-per ID CXR 01/13- no acute findings KUB 01/13- no acute findings UA + yeast , 01/12 UCX +yeast, started on Fluconazole 01/14 as per ID -completed BCX 01/12 NGTD BCX 01/26 and 01/27 NGTD Vanco po was prior dc and switched to Dificid , also on Flagyl per GI -till 01/28 , both extended till , completed inflammatory markers : ESR-42, CRP- wnl WBC smear NGT C dif a/b 01/30 NGT less output from rectal tube UCX 01/27 + Klebs CR- started on Gent per ID recs given prior leukocytosis and fevers SCX 02/02 + Serratia,Pseudomonas abx as per ID recs , Gent completed 02/10 ( extended for 3 days given mild leuk and fever), leuk resolved no fever CXR 02/09 no significant findings, no definite infiltrate CT C/ A/P noted ( see results of CT chest above), CT A/P with findings most compatible with ileus and probable infectious or inflammatory enteritis or enterocolitis. off cefepime rapid COVID 19 NGT in ED aspiration precautions Venous Duplex BLE -negative, get SCD ( unable to give a/c given anemia) closely monitor hemodynamic status repeated Venous Duplex BLE NGT heme and GI follows s/p prior EGD 01/01 -> gastric ulcer across G tube site , no active bleeding s/p EGD 01/30 -> gastric ulceration without visible bleeding Protonix IV bid ( changed from Protonix gtt), Carafate GT feeding resumed as per GI , s/p blood tx 01/30 stool OB positive , another pending transfuse to keep Hgb > 7. HH at baseline trend LFT-> trended down, hep panel NGT hx of cirrhosis- per GI management monitor renal parameters, lytes, avoid nephrotoxic IVF BUN trending down, creat stable, likely prerenal due to dehydration replace e/lytes as per nephro recs , P and Mg replaced this am as per nephro monitor volumes seizure precautions, antiepileptic optimized as per neuro recs ammonia 49, fup with further neuro recs EEG - grossly abnormal; mild to mod encephalopathy, single ictal episode CT head no acute IC pathology BP management with current regimen SN[facility] meds supportive care dietary recs s/p 12/31 Rx for presumed scabies with permethrin and Ivermectin, repeated Ivermectin 01/08 case discussed and evaluated by supervising physician Raul Esparza MD 02/12/20 1458: Subjective Allergies: Coded Allergies: CARBAMAZEPINE (Verified Allergy, Unknown, 12/31/19) LORAZEPAM (Verified Allergy, Unknown, 12/31/19) Assessment/Plan Assessment/Plan Patient seen and examined with [employer]. Agree with above A&P as it reflects our joint deliberations. Ivanna Mora NP Feb 12, 2020 10:11 Raul Esparza MD Feb 12, 2020 14:58
--- NOTE | 2020-02-12 11:12 | Infectious Diseases Prog Note ---
Assessment/Plan 39yo F with: Severe Sepsis Fever, recurrent; SP Leukocytosis; recurrent; mild UTI -02/04 CXR: Bilateral mostly interstitial opacities; suspect largely chronic althoughthere may be an acute component at the left lung base. The latter does appear somewhat improved since the previous exam. -02/02 sp cx S. marcences (R ancef, CTX, mami; I Levo; S Genta, Ceftazidime, Cefepime, bactrim), GNR #2 -02/01 CXR: Interval development of retrocardiac airspace opacities which could represent atelectasis versus developing consolidation. u/a wbc 5-10, nit neg, leuk +2; -01/28 CXR: Subtle reticular nodular opacities in the left apex which may be related to scarring versus acute small airway disease/bronchitis CT c/abd/p wo: Study substantially limited due to lack of IV contrast. Findings most compatible with ileus and probable infectious or inflammatory enteritis or enterocolitis. Large low-attenuation pelvic fluid of uncertain significance, potentially reactive.Appendix not identified. Percutaneous gastrostomy tube adequately positioned in the stomach. Rectal tube. Urinary bladder wall thickening could be incidental, due to high outlet pressures, or could represent cystitis.Cholecystectomy. -01/27 u/a no pyuria, nit +, leuk +3; ucx >100k CRE K, pna (S Gentamycin), P . miriabilis, MDR P, fluorensces (I Gentamycin) CXR: no acute disease Bc xNTD -01/26 Bcx Neg -01/13 CXR: no acute disease -01/12 u/a wbc tnct, nit neg, latrell +3; ucx >100k C. tropicalis Bcx NTD Severe Cdiff colitis -01/30 Cdif toxin a/b neg -01/06 Cdif toxin + 01/27 KUB:Severely dilated small bowel loop in the central abdomen could reflect obstruction. Diffusely fluid distended colon. -01/13 KUB: no acute findings Recurrent GIB 01/06 u/aneg 12/30 BCx 1/2 +CONS, likely contaminant 12/30 UA neg, COVID rapid Ag neg 12/30 CXR 1. Density overlying the bilateral lung apices. May represent pleural thickening, multifocal airspace opacities, versus summation artifact. 01/01 BCx Neg 01/02 BCx Neg Acute blood loss anemia Possible pna on CXR, sp rx Seizure episode -01/10 CT head: Third and lateral ventriculomegaly. Associated enlargement of the extra axial CSF spaces indicates that this is probably due to central volume loss, but the possibility of hydrocephalus should also be considered. At the degree of volume loss is considerably out of proportion to patient's age. Periventricular deep white matter low-attenuation. Probably on the basis of microvascular ischemic change but given patient's age the possibility of demyelinating disease should be considered as well. 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 [facility] will continue to follow. Subjective Allergies: Coded Allergies: CARBAMAZEPINE (Verified Allergy, Unknown, 12/31/19) LORAZEPAM (Verified Allergy, Unknown, 12/31/19) Afebrile No Leukocytosis Objective Last 24 Hour Vital Signs Date Time Temp Pulse Resp B/P (MAP) Pulse Ox O2 Delivery O2 Flow Rate FiO2 02/12/20 10:50 67 25 35 02/12/20 08:00 97.9 89 20 94/59 (71) 100 02/12/20 08:00 Mechanical Ventilator 02/12/20 08:00 78 02/12/20 08:00 35 02/12/20 06:30 76 19 35 02/12/20 04:00 35 02/12/20 04:00 99.0 62 20 112/50 (70) 100 02/12/20 04:00 Mechanical Ventilator 02/12/20 03:42 65 02/12/20 03:30 65 21 35 02/12/20 00:00 35 02/12/20 00:00 81 02/12/20 00:00 97.7 72 20 83/51 (62) 100 02/12/20 00:00 Mechanical Ventilator 02/11/20 23:15 68 22 35 02/11/20 20:00 35 02/11/20 20:00 Mechanical Ventilator 02/11/20 20:00 97.0 66 16 112/64 (80) 100 02/11/20 19:40 65 22 35 02/11/20 19:35 71 02/11/20 16:00 30 02/11/20 16:00 97.1 77 20 107/72 (84) 97 80 02/11/20 16:00 Mechanical Ventilator 02/11/20 16:00 68 02/11/20 15:02 67 20 35 02/11/20 12:00 Mechanical Ventilator 02/11/20 12:00 30 02/11/20 12:00 97.2 80 20 116/53 (74) 96 80 02/11/20 12:00 71 02/11/20 11:20 72 22 35 Height (Feet): 5 Height (Inches): 1.00 Weight (Pounds): 82 GEN: NAD on Vent 35% HEENT: NCAT, MMM, EOMI Pulm: Equal chest rise and fall B/L, NO accessory muscle use ABD: Soft, ND Laboratory Tests Test 02/11/20 12:41 02/11/20 15:33 02/11/20 23:16 02/12/20 03:15 POC Whole Blood Glucose Pending 98 MG/DL (74-106) White Blood Count 11.8 K/UL (4.8-10.8) H 10.0 K/UL (4.8-10.8) Red Blood Count 2.79 M/UL (4.20-5.40) L 2.97 M/UL (4.20-5.40) L Hemoglobin 8.3 G/DL (12.0-16.0) L 8.6 G/DL (12.0-16.0) L Hematocrit 25.5 % (37.0-47.0) L 26.5 % (37.0-47.0) L Mean Corpuscular Volume 91 FL (80-99) 89 FL (80-99) Mean Corpuscular Hemoglobin 29.7 PG (27.0-31.0) 28.9 PG (27.0-31.0) Mean Corpuscular Hemoglobin Concent 32.5 G/DL (32.0-36.0) 32.5 G/DL (32.0-36.0) Red Cell Distribution Width 15.2 % (11.6-14.8) H 14.5 % (11.6-14.8) Platelet Count 739 K/UL (150-450) H 739 K/UL (150-450) H Mean Platelet Volume 5.8 FL (6.5-10.1) L 4.9 FL (6.5-10.1) L Neutrophils (%) (Auto) 56.1 % (45.0-75.0) 55.7 % (45.0-75.0) Lymphocytes (%) (Auto) 24.1 % (20.0-45.0) 25.4 % (20.0-45.0) Monocytes (%) (Auto) 14.7 % (1.0-10.0) H 13.5 % (1.0-10.0) H Eosinophils (%) (Auto) 3.1 % (0.0-3.0) H 4.0 % (0.0-3.0) H Basophils (%) (Auto) 2.0 % (0.0-2.0) 1.4 % (0.0-2.0) Sodium Level 138 MMOL/L (136-145) Potassium Level 4.2 MMOL/L (3.5-5.1) Chloride Level 100 MMOL/L (98-107) Carbon Dioxide Level 34 MMOL/L (21-32) H Anion Gap 4 mmol/L (5-15) L Blood Urea Nitrogen 7 mg/dL (7-18) Creatinine 0.4 MG/DL (0.55-1.30) L Estimat Glomerular Filtration Rate > 60 mL/min (>60) Glucose Level 83 MG/DL (74-106) Calcium Level 8.4 MG/DL (8.5-10.1) L Phosphorus Level 2.7 MG/DL (2.5-4.9) Magnesium Level 1.7 MG/DL (1.8-2.4) L Total Bilirubin 0.2 MG/DL (0.2-1.0) Aspartate Amino Transf (AST/SGOT) 26 U/L (15-37) Alanine Aminotransferase (ALT/SGPT) 25 U/L (12-78) Alkaline Phosphatase 335 U/L (46-116) H Total Protein 6.0 G/DL (6.4-8.2) L Albumin 1.7 G/DL (3.4-5.0) L Globulin 4.3 g/dL Albumin/Globulin Ratio 0.4 (1.0-2.7) L Test 02/12/20 05:22 POC Whole Blood Glucose 114 MG/DL (74-106) H Current Medications Medications (Trade) Dose Ordered Sig/Villa Route PRN Reason Start Time Stop Time Status Last Admin Dose Admin Acetaminophen (Tylenol) 650 mg Q4H PRN GT Temp >100.5 02/01/20 20:30 03/02/20 20:29 02/08/20 20:41 Ascorbic Acid (Vitamin C) 500 mg DAILY GT 01/28/20 09:30 02/27/20 09:29 02/12/20 09:58 Clonazepam (KlonoPIN) 1 mg EVERY 8 HOURS ORAL 02/08/20 22:00 02/15/20 21:59 02/11/20 22:02 Dextrose/Sodium Chloride 1,000 ml @ 75 mls/hr [id number] IV 01/29/20 13:00 02/27/20 12:59 02/12/20 04:28 Famotidine (Pepcid I.v.) 20 mg Q12HR IVP 01/29/20 21:00 02/28/20 20:59 02/12/20 09:58 Gabapentin (Neurontin) 900 mg TID GT 01/28/20 09:30 02/19/20 09:29 02/12/20 10:08 Gentamicin Protocol (Gentamicin pharmacy to dose) 1 ea DAILY PRN MISC Per rx protocol 02/02/20 17:00 03/03/20 16:59 Haloperidol Lactate (Haldol) 5 mg Q6H PRN IM Agitation 01/28/20 09:30 02/15/20 09:29 Loperamide HCl (Imodium) 2 mg Q4H PRN GT Diarrhea 02/10/20 23:45 03/11/20 23:44 02/12/20 10:00 Magnesium Sulfate 100 ml @ 100 mls/hr Q1H IVPB 02/12/20 10:00 02/12/20 11:59 02/12/20 10:00 Midodrine (Pro-Amatine) 10 mg TID GT 02/07/20 18:00 04/21/20 17:59 02/12/20 09:58 Multivitamins (Multivitamins W/ Minerals 15ml Liquid) 15 ml DAILY GT 01/28/20 09:30 02/27/20 09:29 02/12/20 09:00 Pantoprazole (Protonix) 40 mg EVERY 12 HOURS IVP 01/31/20 09:30 03/01/20 09:29 02/12/20 09:59 Potassium Chloride (K-Dur) 40 meq TWICE A DAY ORAL 02/02/20 18:00 05/02/20 17:59 02/12/20 10:00 Sucralfate (Carafate) 1 gm FOUR TIMES A DAY ORAL 01/30/20 09:00 04/29/20 08:59 02/12/20 09:00 Thiamine HCl (Vitamin B1) 100 mg DAILY GT 01/28/20 09:30 02/27/20 09:29 02/12/20 09:58 Jesus Hanson MD Feb 12, 2020 11:12
--- NOTE | 2020-02-12 12:08 | Nephrology Progress Note ---
Assessment/Plan Problem List: (1) RICHARD (acute kidney injury) (2) Dehydration (3) Anemia (4) GI bleed (5) Malnutrition (6) Seizure disorder (7) Electrolyte imbalance Assessment Renal failure, in the form of prerenal azotemia, most likely secondary to GI bleed GI bleed, leading to severe anemia Sepsis, pneumonia Chronic tracheostomy, ventilator dependent History of CVA History of seizure disorder History of psychiatric disorder Severe malnutrition Electrolyte abnormalities Plan February 11: Today's labs reviewed. Full code. On ventilator. Abnormal electrolytes addressed. February 10: No can panel done today. Full code. On ventilator. Will order lab tomorrow. February 09: No chemistry panel done today. Remains full code. Remains on ventilator. Continue per PMD. February 08: Labs reviewed. Electrolyte abnormalities addressed. Patient full code. Continue per current management. February 07: No chemistry panel done today. Remains stable from renal standpoint of view. Patient is full code. Order lab tomorrow. February 06: No chemistry panel drawn today. Clinically remains stable from renal standpoint of view. Patient is full code. February 05: Phosphorus and magnesium supplement given. Stable from renal standpoint of view. Remains full code February 04: No chemistry panel done today. Remains stable from renal standpoint of view. Continue to monitor renal parameters. February 03: Labs reviewed. Renal parameters stable. Continue her consultants. February 02: Lab reviewed. Low phosphorus low magnesium corrections ordered. Continue to monitor electrolytes and renal parameters. February 01: Lab reviewed. Low phosphorus and low magnesium replaced. Low potassium replaced. Continue to monitor electrolytes. Continue per consultants. January 31: Lab reviewed. Hemoglobin higher. Renal parameters stable. Potassium and phosphorus supplement given. January 30: Labs reviewed. Low mag low phosphorus and low potassium replaced. White blood cells 16,000 today. Remains full code. Continue to monitor hemoglobin and hematocrit and electrolytes. January 29: Labs reviewed. Magnesium, potassium, phosphorus supplement given. White blood cells down to 22,000. Remains full code. Continue per consultants. RN reports rectal bleed. Hemoglobin drifting down. Defer management to commercial credit analyst who is already on the case. January 28: Status quo. Electrolyte abnormalities noted. Mag Phos and potassium supplement IV given. Renal parameters stable. Continue per consultants. Leukocytosis persists. January 27: Significant rise in white blood cell counts. Hypotensive. Now in ICU. Will give albumin bolus. Continue to monitor renal parameters. Continue per ID advice. January 26: Continue to monitor renal parameters. Patient remains on ventilator. Patient is full code. Continue per consultants. January 25: Status quo. Labs reviewed. Continue per consultants. January 24: Status unchanged. Labs reviewed. Remains stable from renal standpoint of view. January 23: Back in [place]. Stable from renal standpoint of view. Continue per consultants. January 22: Patient in ICU now. Vital signs and heart rate and blood pressure appears to be stable. Patient had an episode of bradycardia but it was resolved. TSH level today is very low will cut down on Synthroid dose. January 21: Today's labs are reviewed. Stable renal parameters. Continue per consultants. January 20: Labs reviewed. Renal parameters stable. January 19: Labs reviewed. Stable from renal standpoint. January 18: No labs done today. Continue per consultants. Medications reviewed. January 17: Late note entry due to system problem at the [facility] [place].Chemistry panel reviewed. Stable from renal standpoint of view. Continue per current management. January 16: No can panel today. Check lab tomorrow. Remains stable from renal standpoint of view. January 15: Lab reviewed. Renal parameters stable. January 14: Lab reviewed. Renal parameters stable. January 13: Labs reviewed. Stable from renal standpoint of view. January 12: Labs reviewed. Stable from renal standpoint of view January 11: No labs drawn today stable from renal standpoint of view January 10: Labs reviewed. Potassium supplement given. Continue per consultants. January 09: Lab reviewed. Potassium supplement given. IV fluid discontinued. January 08: Lab reviewed. Renal parameters stable. Continue per consultants. January 07: Lab reviewed. Renal parameters stable. Continue per consultants. January 06: Lab reviewed. Stable from renal standpoint of view. January 05: Labs reviewed. Stable from renal standpoint of view. Continue per consultants. January 04: No labs drawn today. Will check labs tomorrow. Continue per consultants. January 03: Lab reviewed. Renal parameters stable. IV fluid discontinued. High LFTs declining. Continue same. January 02: Lab reviewed. Renal parameters stable. Continue per PMD and consultants. LFTs remain elevated. Continue to monitor. Continue slow hydration Discontinue blood pressure medications as her blood pressure is low Discontinue diuretics Monitor renal parameters Transfusion as needed GI evaluation Correct electrolyte abnormalities Check B12 level, folate, and thyroid function tests: Results noted Subjective ROS Limited/Unobtainable: Yes Objective Objective Last 24 Hour Vital Signs Date Time Temp Pulse Resp B/P (MAP) Pulse Ox O2 Delivery O2 Flow Rate FiO2 02/12/20 10:50 67 25 35 02/12/20 08:00 97.9 89 20 94/59 (71) 100 02/12/20 08:00 Mechanical Ventilator 02/12/20 08:00 78 02/12/20 08:00 35 02/12/20 06:30 76 19 35 02/12/20 04:00 35 02/12/20 04:00 99.0 62 20 112/50 (70) 100 02/12/20 04:00 Mechanical Ventilator 02/12/20 03:42 65 02/12/20 03:30 65 21 35 02/12/20 00:00 35 02/12/20 00:00 81 02/12/20 00:00 97.7 72 20 83/51 (62) 100 02/12/20 00:00 Mechanical Ventilator 02/11/20 23:15 68 22 35 02/11/20 20:00 35 02/11/20 20:00 Mechanical Ventilator 02/11/20 20:00 97.0 66 16 112/64 (80) 100 02/11/20 19:40 65 22 35 02/11/20 19:35 71 02/11/20 16:00 30 02/11/20 16:00 97.1 77 20 107/72 (84) 97 80 02/11/20 16:00 Mechanical Ventilator 02/11/20 16:00 68 02/11/20 15:02 67 20 35 Intake and Output 02/11/20 02/12/20 18:59 06:59 Intake Total 475 ml 1560 ml Output Total 1550 ml Balance 475 ml 10 ml Intake Free Water 180 ml IV Total 75 ml 825 ml Tube Feeding 220 ml 605 ml Other 130 ml Output Urine Total 750 ml Stool Total 800 ml # Voids 3 Laboratory Tests 02/11/20 12:41: POC Whole Blood Glucose [Pending] 02/11/20 15:33: White Blood Count 11.8H, Red Blood Count 2.79L, Hemoglobin 8.3L, Hematocrit 25.5L, Mean Corpuscular Volume 91, Mean Corpuscular Hemoglobin 29.7, Mean Corpuscular Hemoglobin Concent 32.5, Red Cell Distribution Width 15.2H, Platelet Count 739H, Mean Platelet Volume 5.8L, Neutrophils (%) (Auto) 56.1, Lymphocytes (%) (Auto) 24.1, Monocytes (%) (Auto) 14.7H, Eosinophils (%) (Auto) 3.1H, Basophils (%) (Auto) 2.0 02/11/20 23:16: POC Whole Blood Glucose 98 02/12/20 03:15: White Blood Count 10.0, Red Blood Count 2.97L, Hemoglobin 8.6L, Hematocrit 26.5L , Mean Corpuscular Volume 89, Mean Corpuscular Hemoglobin 28.9, Mean Corpuscular Hemoglobin Concent 32.5, Red Cell Distribution Width 14.5, Platelet Count 739H, Mean Platelet Volume 4.9L, Neutrophils (%) (Auto) 55.7, Lymphocytes (%) (Auto) 25.4, Monocytes (%) (Auto) 13.5H, Eosinophils (%) (Auto) 4.0H, Basophils (%) (Auto) 1.4, Sodium Level 138, Potassium Level 4.2, Chloride Level 100, Carbon Dioxide Level 34H, Anion Gap 4L, Blood Urea Nitrogen 7, Creatinine 0.4L, Estimat Glomerular Filtration Rate > 60, Glucose Level 83, Calcium Level 8.4L, Phosphorus Level 2.7, Magnesium Level 1.7L, Total Bilirubin 0.2, Aspartate Amino Transf (AST/SGOT) 26, Alanine Aminotransferase (ALT/SGPT) 25, Alkaline Phosphatase 335H, Total Protein 6.0L, Albumin 1.7L, Globulin 4.3, Albumin/Globulin Ratio 0.4L 02/12/20 05:22: POC Whole Blood Glucose 114H Height (Feet): 5 Height (Inches): 1.00 Weight (Pounds): 82 General Appearance: no apparent distress EENT: other - Connected to ventilator Cardiovascular: normal rate Respiratory/Chest: decreased breath sounds Abdomen: soft Objective No change Chivo Holloway MD Feb 12, 2020 12:08
[2020-02-12 12:14] VITALS: BP 93/55
[2020-02-12 16:00] VITALS: BP 117/69
[2020-02-12 20:00] VITALS: BP 103/65
--- NOTE | 2020-02-12 21:03 | Surgery Progress Note ---
Surgery Progress Note Subjective Additional Comments no acute events Objective Last 24 Hour Vital Signs Date Time Temp Pulse Resp B/P (MAP) Pulse Ox O2 Delivery O2 Flow Rate FiO2 02/12/20 19:30 80 23 35 02/12/20 16:00 70 02/12/20 16:00 99.1 78 21 117/69 (85) 99 02/12/20 16:00 35 02/12/20 16:00 Mechanical Ventilator 02/12/20 14:45 65 26 35 02/12/20 12:14 97.5 70 19 93/55 (68) 100 02/12/20 12:00 35 02/12/20 12:00 79 02/12/20 12:00 Mechanical Ventilator 02/12/20 10:50 67 25 35 02/12/20 08:00 97.9 89 20 94/59 (71) 100 02/12/20 08:00 Mechanical Ventilator 02/12/20 08:00 78 02/12/20 08:00 35 02/12/20 06:30 76 19 35 02/12/20 04:00 35 02/12/20 04:00 99.0 62 20 112/50 (70) 100 02/12/20 04:00 Mechanical Ventilator 02/12/20 03:42 65 02/12/20 03:30 65 21 35 02/12/20 00:00 35 02/12/20 00:00 81 02/12/20 00:00 97.7 72 20 83/51 (62) 100 02/12/20 00:00 Mechanical Ventilator 02/11/20 23:15 68 22 35 I&O Intake and Output 02/11/20 02/12/20 19:00 07:00 Intake Total 345 ml 1635 ml Output Total 1250 ml 300 ml Balance -905 ml 1335 ml Intake Free Water 180 ml IV Total 900 ml Tube Feeding 165 ml 605 ml Other 130 ml Output Urine Total 750 ml Stool Total 500 ml 300 ml # Voids 3 Cardiovascular: RSR Respiratory: decreased breath sounds Abdomen: non-tender, present bowel sounds Extremities: no edema, no tenderness, no cyanosis Laboratory Tests Test 02/11/20 23:16 02/12/20 03:15 02/12/20 05:22 02/12/20 12:27 POC Whole Blood Glucose 98 MG/DL (74-106) 114 MG/DL (74-106) H Pending White Blood Count 10.0 K/UL (4.8-10.8) Red Blood Count 2.97 M/UL (4.20-5.40) L Hemoglobin 8.6 G/DL (12.0-16.0) L Hematocrit 26.5 % (37.0-47.0) L Mean Corpuscular Volume 89 FL (80-99) Mean Corpuscular Hemoglobin 28.9 PG (27.0-31.0) Mean Corpuscular Hemoglobin Concent 32.5 G/DL (32.0-36.0) Red Cell Distribution Width 14.5 % (11.6-14.8) Platelet Count 739 K/UL (150-450) H Mean Platelet Volume 4.9 FL (6.5-10.1) L Neutrophils (%) (Auto) 55.7 % (45.0-75.0) Lymphocytes (%) (Auto) 25.4 % (20.0-45.0) Monocytes (%) (Auto) 13.5 % (1.0-10.0) H Eosinophils (%) (Auto) 4.0 % (0.0-3.0) H Basophils (%) (Auto) 1.4 % (0.0-2.0) Sodium Level 138 MMOL/L (136-145) Potassium Level 4.2 MMOL/L (3.5-5.1) Chloride Level 100 MMOL/L (98-107) Carbon Dioxide Level 34 MMOL/L (21-32) H Anion Gap 4 mmol/L (5-15) L Blood Urea Nitrogen 7 mg/dL (7-18) Creatinine 0.4 MG/DL (0.55-1.30) L Estimat Glomerular Filtration Rate > 60 mL/min (>60) Glucose Level 83 MG/DL (74-106) Calcium Level 8.4 MG/DL (8.5-10.1) L Phosphorus Level 2.7 MG/DL (2.5-4.9) Magnesium Level 1.7 MG/DL (1.8-2.4) L Total Bilirubin 0.2 MG/DL (0.2-1.0) Aspartate Amino Transf (AST/SGOT) 26 U/L (15-37) Alanine Aminotransferase (ALT/SGPT) 25 U/L (12-78) Alkaline Phosphatase 335 U/L (46-116) H Total Protein 6.0 G/DL (6.4-8.2) L Albumin 1.7 G/DL (3.4-5.0) L Globulin 4.3 g/dL Albumin/Globulin Ratio 0.4 (1.0-2.7) L Test 02/12/20 17:53 POC Whole Blood Glucose Pending Plan Problems: (1) Pneumonia (2) Sepsis Assessment & Plan: leukocytosis anemia lactic acidosis agree with GI recommend EGD planned for 12/31 hold feeding for now trend h/h monitor for bleeding no acute hemorrhage will be available in event needs exploration for hemostasis prbc as per heme thank you will follow with recs cont abx worsening wbc wbc trending down comfortable appearing no n/v hypotensive in ICU again worse pending CT results - noted PICC ordered improving wbc improved labs and micro trending labs improved wbc resolved prognosis guarded Pt presented on admission in emaciated state. Pt has tracheostomy and GT. NO skin concerns noted to skin under collar of trach. NO erythema or evidence of skin erosion at GT site. Pt noted to have scaly pimple-like rash with webbing noted to R and L axillae, undersides of both breasts, Bilat groin and lower back. Tracking and webbing noted to hands and feet. Pt restless and scratching at skin. Non-Blanching erythema without induration or fluctuance noted to R and L hips and trochanteric areas.Non-blanching erythema noted along spine. Non-Blanching erythema without induration noted to Sacrum. Non-Blanching erythema noted to R and L Malleoli and both heels. Tx.Plan: Please apply Cavilon Skin Barrier to each bony Prominences at risks for Skin Breakdown. Cover each area with Optifoam drsgs. Change every 7 days and prn. Apply Moisture Barrier Paste to Sacrum. Cover with Optifoam drsg. Change every 3 days and prn. Reposition at least every 2hours or as tolerated. Off-load heels with pillow. APM/EMELI Mattress overlay. improving cont current care plan Incontinent social dermatitis noted around the bilateral groin creases and vaginal area. Site clean. Monitor for incontinence. There is marked enlargement of the third and lateral ventricles and extra axial CSF spaces, in particular the former. There is considerable periventricular deep white matter low-attenuation. Otherwise normal mobley-white differentiation. No acute hemorrhage or edema. No mass effect nor midline shift. Visualized orbits and sinuses are unremarkable. The calvarium is intact Impression: Third and lateral ventriculomegaly. Associated enlargement of the extra axial CSF spaces indicates that this is probably due to central volume loss, but the possibility of hydrocephalus should also be considered. At the degree of volume loss is considerably out of proportion to patient's age. Correlate with clinical history Periventricular deep white matter low-attenuation. Probably on the basis of microvascular ischemic change but given patient's age the possibility of demyelinating disease should be considered as well. Negative for acute intracranial bleed or mass effect ABDOMEN: Liver: Unremarkable. Gallbladder and bile ducts: Cholecystectomy. No ductal dilation. Pancreas: Unremarkable. No ductal dilation. Spleen: Unremarkable. No splenomegaly. Adrenals: Unremarkable. No mass. Kidneys and ureters: Unremarkable. No obstructing stones. No hydronephrosis. Stomach and bowel: Operative bowel findings. Diffuse small bowel wall thickening with areas of distention and fluid-filled colonic loops. No clear focal transition point to suggest small bowel obstruction. PELVIS: Appendix: Appendix not identified. Bladder: Urinary bladder wall thickening could be incidental, due to high outlet pressures, or could represent cystitis. No stones. Reproductive: Unremarkable as visualized. ABDOMEN and PELVIS: Intraperitoneal space: Large low-attenuation pelvic fluid of uncertain significance, potentially reactive. No free air. Bones/joints: No acute fracture. No dislocation. Soft tissues: Bilateral buttock injection granulomas. Vasculature: Unremarkable. No abdominal aortic aneurysm. Lymph nodes: Unremarkable. No enlarged lymph nodes. Tubes, lines and devices: Percutaneous gastrostomy tube adequately positioned in the stomach. Rectal tube. Other findings: No perforation seen. IMPRESSION: 1. Study substantially limited due to lack of IV contrast. 2. Findings most compatible with ileus and probable infectious or inflammatory enteritis or enterocolitis. 3. Large low-attenuation pelvic fluid of uncertain significance, potentially reactive. 4. Appendix not identified. 5. Percutaneous gastrostomy tube adequately positioned in the stomach. Rectal tube. 6. Urinary bladder wall thickening could be incidental, due to high outlet pressures, or could represent cystitis. 7. Cholecystectomy. (3) GI bleed (4) G tube feedings Assessment & Plan: DAILY ESTIMATED NEEDS: Needs based on Underweight, critical care 37.3kg 30-40 kcals/kg 0270-6511 total kcals 1.25-2 g protein/kg 47-75 g total protein 25-35 mL/kg 933-1306 total fluid mLs NUTRITION DIAGNOSIS: Increased kcal and pro needs r/t underweight status as evidenced by BMI 14.1, pt is 68% of ideal body weight w/ generalized severe wasting, trach and peg dep. CURRENT TF:Vital AF 1.2 @55 x20 hrs ENTERAL NUTRITION RECOMMENDATIONS: Vital AF 1.2 @ 55ml/hr x20 hrs to provide 1100ml 1320kcal 83g prot, 892ml free water - Rec to continue elemental TF formula while stool C-diff positive, +LBM - HOLD 1HR BEFORE AND AFTER SYNTHROID MEDS - Flush per MD. HOB over 30 degrees ADDITIONAL RECOMMENDATIONS: 1) Per SNF: 5'4" and 81# Maintain calibrated bed scale wts w/ added P200 mattress 2) Lytes daily madhav w/ loose stools, replete as needed 3) Skin integrity: Continue BRIAN VIA GT BID + Vit C 4) Accuchecks for Hypoglycemia 5) Add probiotics for stool C-diff+ . George Woods Feb 12, 2020 21:03
--- NOTE | 2020-02-12 23:53 | Cardiology Progress Note ---
Assessment/Plan Assessment/Plan 1. Septic shock, continue midodrine. 2. Sinus bradycardia, resolved. 3. Anemia of chronic disease. 4. Acute renal failure, resolved. 5. GI bleeding due to gastric ulceration. 6. Dysphagia, s/p PEG placement, s/p EGD. 7. VDRF, s/p tracheostomy tube placement. 8. Hypomagnesemia, Mg level at 1.7. Subjective Subjective Sinus rhythm at rate of 69. On the vent with FiO2 of 35%. Objective Last 24 Hour Vital Signs Date Time Temp Pulse Resp B/P (MAP) Pulse Ox O2 Delivery O2 Flow Rate FiO2 02/12/20 22:59 69 27 35 02/12/20 20:00 35 02/12/20 20:00 Mechanical Ventilator 02/12/20 20:00 98.4 76 21 103/65 (78) 100 02/12/20 19:30 80 23 35 02/12/20 19:07 82 02/12/20 16:00 70 02/12/20 16:00 99.1 78 21 117/69 (85) 99 02/12/20 16:00 35 02/12/20 16:00 Mechanical Ventilator 02/12/20 14:45 65 26 35 02/12/20 12:14 97.5 70 19 93/55 (68) 100 02/12/20 12:00 35 02/12/20 12:00 79 02/12/20 12:00 Mechanical Ventilator 02/12/20 10:50 67 25 35 02/12/20 08:00 97.9 89 20 94/59 (71) 100 02/12/20 08:00 Mechanical Ventilator 02/12/20 08:00 78 02/12/20 08:00 35 02/12/20 06:30 76 19 35 02/12/20 04:00 35 02/12/20 04:00 99.0 62 20 112/50 (70) 100 02/12/20 04:00 Mechanical Ventilator 02/12/20 03:42 65 02/12/20 03:30 65 21 35 02/12/20 00:00 35 02/12/20 00:00 81 02/12/20 00:00 97.7 72 20 83/51 (62) 100 02/12/20 00:00 Mechanical Ventilator Intake and Output 02/11/20 02/12/20 19:00 07:00 Intake Total 345 ml 1635 ml Output Total 1250 ml 300 ml Balance -905 ml 1335 ml Intake Free Water 180 ml IV Total 900 ml Tube Feeding 165 ml 605 ml Other 130 ml Output Urine Total 750 ml Stool Total 500 ml 300 ml # Voids 3 CXR: reviewed 2D Echo: LVEF 65%, RVSP 23 mmHg, Grade I LVDD Laboratory Tests Test 02/12/20 03:15 02/12/20 05:22 02/12/20 12:27 02/12/20 17:53 White Blood Count 10.0 K/UL (4.8-10.8) Red Blood Count 2.97 M/UL (4.20-5.40) L Hemoglobin 8.6 G/DL (12.0-16.0) L Hematocrit 26.5 % (37.0-47.0) L Mean Corpuscular Volume 89 FL (80-99) Mean Corpuscular Hemoglobin 28.9 PG (27.0-31.0) Mean Corpuscular Hemoglobin Concent 32.5 G/DL (32.0-36.0) Red Cell Distribution Width 14.5 % (11.6-14.8) Platelet Count 739 K/UL (150-450) H Mean Platelet Volume 4.9 FL (6.5-10.1) L Neutrophils (%) (Auto) 55.7 % (45.0-75.0) Lymphocytes (%) (Auto) 25.4 % (20.0-45.0) Monocytes (%) (Auto) 13.5 % (1.0-10.0) H Eosinophils (%) (Auto) 4.0 % (0.0-3.0) H Basophils (%) (Auto) 1.4 % (0.0-2.0) Sodium Level 138 MMOL/L (136-145) Potassium Level 4.2 MMOL/L (3.5-5.1) Chloride Level 100 MMOL/L (98-107) Carbon Dioxide Level 34 MMOL/L (21-32) H Anion Gap 4 mmol/L (5-15) L Blood Urea Nitrogen 7 mg/dL (7-18) Creatinine 0.4 MG/DL (0.55-1.30) L Estimat Glomerular Filtration Rate > 60 mL/min (>60) Glucose Level 83 MG/DL (74-106) Calcium Level 8.4 MG/DL (8.5-10.1) L Phosphorus Level 2.7 MG/DL (2.5-4.9) Magnesium Level 1.7 MG/DL (1.8-2.4) L Total Bilirubin 0.2 MG/DL (0.2-1.0) Aspartate Amino Transf (AST/SGOT) 26 U/L (15-37) Alanine Aminotransferase (ALT/SGPT) 25 U/L (12-78) Alkaline Phosphatase 335 U/L (46-116) H Total Protein 6.0 G/DL (6.4-8.2) L Albumin 1.7 G/DL (3.4-5.0) L Globulin 4.3 g/dL Albumin/Globulin Ratio 0.4 (1.0-2.7) L POC Whole Blood Glucose 114 MG/DL (74-106) H Pending Pending Objective HEENT: PERRLA, EOMI, +Trach tube. NECK: Cannot assess JVP, no carotid bruit with normal upstroke. LUNGS: Bilateral rhonchi. CARDIAC: Regular rhythm and rate. Normal S1, S2, no murmurs, gallops or rubs. ABDOMEN: Soft with G-tube. No hepatomegaly. EXTREMITIES: No edema, clubbing or cyanosis. Desmond Gleason MD Feb 12, 2020 23:53
[2020-02-13] VITALS: BP 97/58
[2020-02-13 04:00] VITALS: BP 95/56
--- NOTE | 2020-02-13 06:41 | Hematology/Onc Progress Note ---
Assessment/Plan Assessment/Plan # Anemia rule out underlying gi bleed --> Dr. Carrillo has been consulted-->endosco gastric ulceration --> trend hgb 7-->7.4-->7.9-->8.1->9.6-->8.5->9.1-->10-->11-->10.3-->10.4-->11->9.8-->7.4 ->9-->10.5-->9.1-->8.7-->8.4-->8.6 --> anemia panel ordered-->reviewed --> prn transfusion --> protonix started # Leukocytosis is likely related to pna on imaging --> abx has been started --> if wbc worsens, consider abx vanc/zosyn--> ceftriaxone-->vanc->f roni/flagyl/vanc-->flagyl/fidoxomicin->vanc/cefepime/flagyl-->gentamcinflagyl --> smear is noted --> wbc 25-->15-->14-->16->7.6-->12-->20->13->11->14-->33-->16->8->11-->12 --> pressors prn # Thrombocytopenia med related v labs error --> plt trend 167-->61-->227->373->457 --> meds have been reviewed --> no hep or lovenox # Sepsis --> on abx for pna --> pressors as needed --> fluids as per pcp for hypotension # Pneumonia --> pulm, Dr. 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 operational risk consultant care, will follow Subjective HEENT: Denies: no symptoms, eye pain, blurred vision, tearing, double vision, ear pain, ear discharge, nose pain, nose congestion, throat pain, throat swelling, mouth pain, mouth swelling, other Cardiovascular: Denies: no symptoms, chest pain, edema, irregular heart rate, lightheadedness, palpitations, syncope, other Respiratory: Denies: no symptoms, cough, shortness of breath, SOB with excertion, SOB at rest, sputum, wheezing, other Gastrointestinal/Abdominal: Denies: no symptoms, abdomen distended, abdominal pain, black stools, tarry stools, blood in stool, constipated, diarrhea, difficulty swallowing, nausea, poor appetite, poor fluid intake, rectal bleeding, vomiting, other Genitourinary: Denies: no symptoms, burning, discharge, frequency, flank pain, hematuria, incontinence, pain, urgency, other Neurologic/Psychiatric: Denies: no symptoms, anxiety, depressed, emotional problems, headache, numbness, paresthesia, pre-existing deficit, seizure, tingling, tremors, weakness, other Endocrine: Denies: no symptoms, excessive sweating, flushing, intolerance to cold, intolerance to heat, increased hunger, increased thirst, increased urine, unexplained weight gain, unexplained weight loss, other Hematologic/Lymphatic: Denies: no symptoms, anemia, easy bleeding, easy bruising, adenopathy, other Allergies: Coded Allergies: CARBAMAZEPINE (Verified Allergy, Unknown, 12/31/19) LORAZEPAM (Verified Allergy, Unknown, 12/31/19) Subjective 01/01 altered, trach, no bleedin wbc improved on abx, seen by gi 01/02 egd study noted, also with plts 61k, have vitaly Armendariz Rn, will recheck cbc 01/03 remains agitated, vitaly rn, no bleeding, cbc noted as well as id recs 01/04 on vent, with melena overnight, no bleeding, vitaly rn, labs reviewed 01/06 on vent, remains agitated, no bleeding, vitaly rn, smear is noted 01/07 on vent, restless, asymptomatic, noncooperative 01/[address] John obtained, reviewed, meds adjusted, eeg pending 01/09 labs noted, no bleeding, ativan has been discontinued, meds reviewed 01/10 trach to vent, agitated, with wrist restraints, no major changes, no bleeding 01/11 labs are reviewed, on trach to vent, no bleeding, agitated overnight, no complaints 01/13 labs noted, no bleeding, is on vent/trach, no bleeding, vitaly rn, labs are noted 01/14 labs are noted, no bleeding, remains on v/t, remains agitated, no bleeding 01/15 is c.diff positive, wbc higher at 21k, labs noted, on abx, reviewed gi, id recs 01/16 remains on vent, wbc is improved, in sr, as abx per id 01/17 recieved dopamine, tube feeds, on soft restraints, no bleeding, vitaly rn 01/18 labs are noted, no bleeding, vitaly rn, no major changes 01/20 on dopamine gtt, with restraints, no major changes, labs noted 01/21 labs reviewed, no bleeding, vitaly rn, no major changes 01/22 transferred to icu for higher loc, dopamine on hold as bp is good, have increased Synthroid 01/23 labs are pending, meds noted, no bleeding, dopamine gtt ongoing, cbc noted 01/24 still nv, no bleeding, labs reviewed, vitaly rn, with rectal tube in place, on dopamine gtt 01/25 is on bipap, nv, no bleeding, remains on low dose pressorm hgb 11 01/27 on dopamine, hr was elevated overnight, cards aware 01/28 on vent, with ivfs running, rectal tube with red blood noted, consider gi eval 01/29 on vent, labs reviewed, wbc 22, hgb 8.4, on abx currently, vanc/flagyl/cefepime 02/02 labs reviewed, no bleeding, on vent, no night sweats, wbc improved 02/03 is on gtube feeds, with trach to vent, oxygen as needed, labs wbc better 02/04 nv, is on gt, on vent, no bleeding, labs are noted, guarded prognosis 02/05 labs are noted, nv, is on gt feeds, no bleeding, abx as needed 02/06 labs reviewed, is on tube feeds, on vent, nv, no bleeding 02/07 labs are noted, no bleeding, trach/to vent, wth gtube, meds reviewed 02/08 very agitated, no bleeding, med noted, no night sweats, in restraints 02/10 off dopamine currently, labs reviewed, overnight agitated 02/12 still agitated overnight, cbc has been reordered recent hgb reviewed Objective Objective Current Medications Medications (Trade) Dose Ordered Sig/Villa Route PRN Reason Start Time Stop Time Status Last Admin Dose Admin Acetaminophen (Tylenol) 650 mg Q4H PRN GT Temp >100.5 02/01/20 20:30 03/02/20 20:29 02/08/20 20:41 Ascorbic Acid (Vitamin C) 500 mg DAILY GT 01/28/20 09:30 02/27/20 09:29 02/12/20 09:58 Clonazepam (KlonoPIN) 1 mg EVERY 8 HOURS ORAL 02/08/20 22:00 02/15/20 21:59 02/13/20 05:10 Dextrose/Sodium Chloride 1,000 ml @ 75 mls/hr [id number] IV 01/29/20 13:00 02/27/20 12:59 02/12/20 21:24 Famotidine (Pepcid I.v.) 20 mg Q12HR IVP 01/29/20 21:00 02/28/20 20:59 02/12/20 20:27 Gabapentin (Neurontin) 900 mg TID GT 01/28/20 09:30 02/19/20 09:29 02/12/20 17:54 Gentamicin Protocol (Gentamicin pharmacy to dose) 1 ea DAILY PRN MISC Per rx protocol 02/02/20 17:00 03/03/20 16:59 Haloperidol Lactate (Haldol) 5 mg Q6H PRN IM Agitation 01/28/20 09:30 02/15/20 09:29 Loperamide HCl (Imodium) 2 mg Q4H PRN GT Diarrhea 02/10/20 23:45 03/11/20 23:44 02/12/20 21:24 Midodrine (Pro-Amatine) 10 mg TID GT 02/07/20 18:00 04/21/20 17:59 02/12/20 17:54 Multivitamins (Multivitamins W/ Minerals 15ml Liquid) 15 ml DAILY GT 01/28/20 09:30 02/27/20 09:29 02/12/20 09:00 Pantoprazole (Protonix) 40 mg EVERY 12 HOURS IVP 01/31/20 09:30 03/01/20 09:29 02/12/20 20:26 Potassium Chloride (K-Dur) 40 meq TWICE A DAY ORAL 02/02/20 18:00 05/02/20 17:59 02/12/20 17:55 Sucralfate (Carafate) 1 gm FOUR TIMES A DAY ORAL 01/30/20 09:00 04/29/20 08:59 02/12/20 20:27 Thiamine HCl (Vitamin B1) 100 mg DAILY GT 01/28/20 09:30 02/27/20 09:29 02/12/20 09:58 Last 24 Hour Vital Signs Date Time Temp Pulse Resp B/P (MAP) Pulse Ox O2 Delivery O2 Flow Rate FiO2 02/13/20 04:00 Mechanical Ventilator 02/13/20 04:00 35 02/13/20 04:00 98.9 86 18 95/56 (69) 100 02/13/20 03:30 82 26 35 02/13/20 03:26 79 02/13/20 00:00 Mechanical Ventilator 02/13/20 00:00 70 02/13/20 00:00 98.8 94 18 97/58 (71) 100 02/12/20 22:59 69 27 35 02/12/20 20:00 35 02/12/20 20:00 Mechanical Ventilator 02/12/20 20:00 98.4 76 21 103/65 (78) 100 02/12/20 19:30 80 23 35 02/12/20 19:07 82 02/12/20 16:00 70 02/12/20 16:00 99.1 78 21 117/69 (85) 99 02/12/20 16:00 35 02/12/20 16:00 Mechanical Ventilator 02/12/20 14:45 65 26 35 02/12/20 12:14 97.5 70 19 93/55 (68) 100 02/12/20 12:00 35 02/12/20 12:00 79 02/12/20 12:00 Mechanical Ventilator 02/12/20 10:50 67 25 35 02/12/20 08:00 97.9 89 20 94/59 (71) 100 02/12/20 08:00 Mechanical Ventilator 02/12/20 08:00 78 02/12/20 08:00 35 02/12/20 06:30 76 19 35 02/12/20 04:00 35 02/12/20 04:00 99.0 62 20 112/50 (70) 100 02/12/20 04:00 Mechanical Ventilator 02/12/20 03:42 65 02/12/20 03:30 65 21 35 02/12/20 00:00 35 02/12/20 00:00 81 02/12/20 00:00 97.7 72 20 83/51 (62) 100 02/12/20 00:00 Mechanical Ventilator 02/11/20 23:15 68 22 35 02/11/20 20:00 35 02/11/20 20:00 Mechanical Ventilator 02/11/20 20:00 97.0 66 16 112/64 (80) 100 02/11/20 19:40 65 22 35 02/11/20 19:35 71 02/11/20 16:00 30 02/11/20 16:00 97.1 77 20 107/72 (84) 97 80 02/11/20 16:00 Mechanical Ventilator 02/11/20 16:00 68 02/11/20 15:02 67 20 35 02/11/20 12:00 Mechanical Ventilator 02/11/20 12:00 30 02/11/20 12:00 97.2 80 20 116/53 (74) 96 80 02/11/20 12:00 71 02/11/20 11:20 72 22 35 02/11/20 08:00 83 02/11/20 08:00 97.7 86 17 96/46 (63) 100 86 02/11/20 08:00 Mechanical Ventilator 02/11/20 08:00 30 02/11/20 07:55 71 26 35 Intake and Output 02/12/20 02/13/20 18:59 06:59 Intake Total 1550 ml 1600 ml Output Total 205 ml 355 ml Balance 1345 ml 1245 ml Intake Free Water 100 ml 40 ml IV Total 825 ml 900 ml Tube Feeding 385 ml 660 ml Other 240 ml Output Urine Total 5 ml 355 ml Chest Tube Drainage Total 200 ml Labs Test 02/10/20 12:31 02/10/20 18:37 02/10/20 23:34 02/11/20 05:58 POC Whole Blood Glucose 90 MG/DL (74-106) 106 MG/DL (74-106) Test 02/11/20 12:41 02/11/20 15:33 02/11/20 23:16 02/12/20 03:15 White Blood Count 11.8 K/UL (4.8-10.8) 10.0 K/UL (4.8-10.8) Red Blood Count 2.79 M/UL (4.20-5.40) 2.97 M/UL (4.20-5.40) Hemoglobin 8.3 G/DL (12.0-16.0) 8.6 G/DL (12.0-16.0) Hematocrit 25.5 % (37.0-47.0) 26.5 % (37.0-47.0) Mean Corpuscular Volume 91 FL (80-99) 89 FL (80-99) Mean Corpuscular Hemoglobin 29.7 PG (27.0-31.0) 28.9 PG (27.0-31.0) Mean Corpuscular Hemoglobin Concent 32.5 G/DL (32.0-36.0) 32.5 G/DL (32.0-36.0) Red Cell Distribution Width 15.2 % (11.6-14.8) 14.5 % (11.6-14.8) Platelet Count 739 K/UL (150-450) 739 K/UL (150-450) Mean Platelet Volume 5.8 FL (6.5-10.1) 4.9 FL (6.5-10.1) Neutrophils (%) (Auto) 56.1 % (45.0-75.0) 55.7 % (45.0-75.0) Lymphocytes (%) (Auto) 24.1 % (20.0-45.0) 25.4 % (20.0-45.0) Monocytes (%) (Auto) 14.7 % (1.0-10.0) 13.5 % (1.0-10.0) Eosinophils (%) (Auto) 3.1 % (0.0-3.0) 4.0 % (0.0-3.0) Basophils (%) (Auto) 2.0 % (0.0-2.0) 1.4 % (0.0-2.0) POC Whole Blood Glucose 98 MG/DL (74-106) Sodium Level 138 MMOL/L (136-145) Potassium Level 4.2 MMOL/L (3.5-5.1) Chloride Level 100 MMOL/L (98-107) Carbon Dioxide Level 34 MMOL/L (21-32) Anion Gap 4 mmol/L (5-15) Blood Urea Nitrogen 7 mg/dL (7-18) Creatinine 0.4 MG/DL (0.55-1.30) Estimat Glomerular Filtration Rate > 60 mL/min (>60) Glucose Level 83 MG/DL (74-106) Calcium Level 8.4 MG/DL (8.5-10.1) Phosphorus Level 2.7 MG/DL (2.5-4.9) Magnesium Level 1.7 MG/DL (1.8-2.4) Total Bilirubin 0.2 MG/DL (0.2-1.0) Aspartate Amino Transf (AST/SGOT) 26 U/L (15-37) Alanine Aminotransferase (ALT/SGPT) 25 U/L (12-78) Alkaline Phosphatase 335 U/L (46-116) Total Protein 6.0 G/DL (6.4-8.2) Albumin 1.7 G/DL (3.4-5.0) Globulin 4.3 g/dL Albumin/Globulin Ratio 0.4 (1.0-2.7) Test 02/12/20 05:22 02/12/20 12:27 02/12/20 17:53 02/13/20 00:21 POC Whole Blood Glucose 114 MG/DL (74-106) 107 MG/DL (74-106) Height (Feet): 5 Height (Inches): 1.00 Weight (Pounds): 82 Objective Vital Signs General Appearance: ++ cachectic, chronically ill HEENT: normocephalic, atraumatic ++ trach Resp: other -. vent ++ Cardiovascular: regular rate, rhythm, no edema Gastrointestinal: gtube in place, without erythema Rectal: other - Hemoccult positive [place]: back normal, gait/station normal, non-tender Lymphatic: no adenopathy Baltazar Cortes MD Feb 13, 2020 06:41
[2020-02-13 08:00] VITALS: BP 95/51
[2020-02-13] MEDS: Multivitamins W/Minerals 15 ML UDC GT SCH (09:00)
--- NOTE | 2020-02-13 09:49 | Nephrology Progress Note ---
Assessment/Plan Problem List: (1) RICHARD (acute kidney injury) (2) Dehydration (3) Anemia (4) GI bleed (5) Malnutrition (6) Seizure disorder (7) Electrolyte imbalance Assessment Renal failure, in the form of prerenal azotemia, most likely secondary to GI bleed GI bleed, leading to severe anemia Sepsis, pneumonia Chronic tracheostomy, ventilator dependent History of CVA History of seizure disorder History of psychiatric disorder Severe malnutrition Electrolyte abnormalities Plan February 12: Stable from renal standpoint of view. Remains full code on ventilator. Continue per PMD. February 11: Today's labs reviewed. Full code. On ventilator. Abnormal electrolytes addressed. February 10: No can panel done today. Full code. On ventilator. Will order lab tomorrow. February 09: No chemistry panel done today. Remains full code. Remains on ventilator. Continue per PMD. February 08: Labs reviewed. Electrolyte abnormalities addressed. Patient full code. Continue per current management. February 07: No chemistry panel done today. Remains stable from renal standpoint of view. Patient is full code. Order lab tomorrow. February 06: No chemistry panel drawn today. Clinically remains stable from renal standpoint of view. Patient is full code. February 05: Phosphorus and magnesium supplement given. Stable from renal standpoint of view. Remains full code February 04: No chemistry panel done today. Remains stable from renal s tandpoint of view. Continue to monitor renal parameters. February 03: Labs reviewed. Renal parameters stable. Continue her c onsultants. February 02: Lab reviewed. Low phosphorus low magnesium corrections ordered. Continue to monitor electrolytes and renal parameters. February 01: Lab reviewed. Low phosphorus and low magnesium replaced. Low potassium replaced. Continue to monitor electrolytes. Continue per consultants. January 31: Lab reviewed. Hemoglobin higher. Renal parameters stable. Pot assium and phosphorus supplement given. January 30: Labs reviewed. Low mag low phosphorus and low potassium replaced. White blood cells 16,000 today. Remains full code. Continue to monitor hemoglobin and hematocrit and electrolytes. January 29: Labs reviewed. Magnesium, potassium, phosphorus supplement given. White blood cells down to 22,000. Remains full code. Continue per consultants. RN reports rectal bleed. Hemoglobin drifting down. Defer management to optical instrument assembler who is already on the case. January 28: Status quo. Electrolyte abnormalities noted. Mag Phos and potassium supplement IV given. Renal parameters stable. Continue per consultants. Leukocytosis persists. January 27: Significant rise in white blood cell counts. Hypotensive. Now in ICU. Will give albumin bolus. Continue to monitor renal parameters. Continue per ID advice. January 26: Continue to monitor renal parameters. Patient remains on ventilator. Patient is full code. Continue per consultants. January 25: Status quo. Labs reviewed. Continue per consultants. January 24: Status unchanged. Labs reviewed. Remains stable from renal standpoint of view. January 23: Back in [facility]. Stable from renal standpoint of view. Continue per consultants. January 22: Patient in ICU now. Vital signs and heart rate and blood pressure appears to be stable. Patient had an episode of bradycardia but it was resolved. TSH level today is very low will cut down on Synthroid dose. January 21: Today's labs are reviewed. Stable renal parameters. Continue per consultants. January 20: Labs reviewed. Renal parameters stable. January 19: Labs reviewed. Stable from renal standpoint. January 18: No labs done today. Continue per consultants. Medications reviewed. January 17: Late note entry due to system problem at the [facility] [place].Chemistry panel reviewed. Stable from renal standpoint of view. Continue per current management. January 16: No can panel today. Check lab tomorrow. Remains stable from renal standpoint of view. January 15: Lab reviewed. Renal parameters stable. January 14: Lab reviewed. Renal parameters stable. January 13: Labs reviewed. Stable from renal standpoint of view. January 12: Labs reviewed. Stable from renal standpoint of view January 11: No labs drawn today stable from renal standpoint of view January 10: Labs reviewed. Potassium supplement given. Continue per consultants. January 09: Lab reviewed. Potassium supplement given. IV fluid discontinued. January 08: Lab reviewed. Renal parameters stable. Continue per consultants. January 07: Lab reviewed. Renal parameters stable. Continue per consultants. January 06: Lab reviewed. Stable from renal standpoint of view. January 05: Labs reviewed. Stable from renal standpoint of view. Continue per consultants. January 04: No labs drawn today. Will check labs tomorrow. Continue per consultants. January 03: Lab reviewed. Renal parameters stable. IV fluid discontinued. High LFTs declining. Continue same. January 02: Lab reviewed. Renal parameters stable. Continue per PMD and consultants. LFTs remain elevated. Continue to monitor. Continue slow hydration Discontinue blood pressure medications as her blood pressure is low Discontinue diuretics Monitor renal parameters Transfusion as needed GI evaluation Correct electrolyte abnormalities Check B12 level, folate, and thyroid function tests: Results noted Objective Objective Last 24 Hour Vital Signs Date Time Temp Pulse Resp B/P (MAP) Pulse Ox O2 Delivery O2 Flow Rate FiO2 02/13/20 07:10 88 16 35 02/13/20 04:00 Mechanical Ventilator 02/13/20 04:00 35 02/13/20 04:00 98.9 86 18 95/56 (69) 100 02/13/20 03:30 82 26 35 02/13/20 03:26 79 02/13/20 00:00 Mechanical Ventilator 02/13/20 00:00 70 02/13/20 00:00 98.8 94 18 97/58 (71) 100 02/12/20 22:59 69 27 35 02/12/20 20:00 35 02/12/20 20:00 Mechanical Ventilator 02/12/20 20:00 98.4 76 21 103/65 (78) 100 02/12/20 19:30 80 23 35 02/12/20 19:07 82 02/12/20 16:00 70 02/12/20 16:00 99.1 78 21 117/69 (85) 99 02/12/20 16:00 35 02/12/20 16:00 Mechanical Ventilator 02/12/20 14:45 65 26 35 02/12/20 12:14 97.5 70 19 93/55 (68) 100 02/12/20 12:00 35 02/12/20 12:00 79 02/12/20 12:00 Mechanical Ventilator 02/12/20 10:50 67 25 35 Intake and Output 02/12/20 02/13/20 19:00 07:00 Intake Total 1605 ml 1470 ml Output Total 210 ml 350 ml Balance 1395 ml 1120 ml Intake Free Water 100 ml 40 ml IV Total 825 ml 825 ml Tube Feeding 440 ml 605 ml Other 240 ml Output Urine Total 10 ml 350 ml Chest Tube Drainage Total 200 ml Laboratory Tests 02/12/20 12:27: POC Whole Blood Glucose [Pending] 02/12/20 17:53: POC Whole Blood Glucose [Pending] 02/13/20 00:21: POC Whole Blood Glucose 107H Height (Feet): 5 Height (Inches): 1.00 Weight (Pounds): 82 Objective No change Chivo Holloway MD Feb 13, 2020 09:49
[2020-02-13] MEDS: Gabapentin 300 MG/6 ML Soln GT SCH ×3 (10:01→17:42)
[2020-02-13] MEDS: Pantoprazole Inj IVP SCH ×2 (10:02→21:10)
[2020-02-13] MEDS: Thiamine 100mg tab GT SCH (10:02)
[2020-02-13] MEDS: Sucralfate 1gm tab ORAL SCH ×4 (10:03→21:10)
[2020-02-13] MEDS: Ascorbic Acid 500mg tab GT SCH (10:03)
[2020-02-13] MEDS: Midodrine 10mg tab GT SCH ×3 (10:03→17:43)
--- NOTE | 2020-02-13 10:21 | Pulmonology Progress Note ---
Ivanna Mora [employer] 02/13/20 1021: Subjective ROS Limited/Unobtainable: Yes Allergies: Coded Allergies: CARBAMAZEPINE (Verified Allergy, Unknown, 12/31/19) LORAZEPAM (Verified Allergy, Unknown, 12/31/19) Subjective in [place]UL[place] no signs of resp distress on current vent settings on Midodrine, off Dopamine gtt mild leuk resolved, remains afebrile CXR 02/09 - no definite infiltrate SCX + Serratia and Pseudomonas repeated venous Duplex BLE NGT Objective Last 24 Hour Vital Signs Date Time Temp Pulse Resp B/P (MAP) Pulse Ox O2 Delivery O2 Flow Rate FiO2 02/13/20 08:00 93 02/13/20 07:10 88 16 35 02/13/20 04:00 Mechanical Ventilator 02/13/20 04:00 35 02/13/20 04:00 98.9 86 18 95/56 (69) 100 02/13/20 03:30 82 26 35 02/13/20 03:26 79 02/13/20 00:00 Mechanical Ventilator 02/13/20 00:00 70 02/13/20 00:00 98.8 94 18 97/58 (71) 100 02/12/20 22:59 69 27 35 02/12/20 20:00 35 02/12/20 20:00 Mechanical Ventilator 02/12/20 20:00 98.4 76 21 103/65 (78) 100 02/12/20 19:30 80 23 35 02/12/20 19:07 82 02/12/20 16:00 70 02/12/20 16:00 99.1 78 21 117/69 (85) 99 02/12/20 16:00 35 02/12/20 16:00 Mechanical Ventilator 02/12/20 14:45 65 26 35 02/12/20 12:14 97.5 70 19 93/55 (68) 100 02/12/20 12:00 35 02/12/20 12:00 79 02/12/20 12:00 Mechanical Ventilator 02/12/20 10:50 67 25 35 Intake and Output 02/12/20 02/13/20 19:00 07:00 Intake Total 1605 ml 1470 ml Output Total 210 ml 350 ml Balance 1395 ml 1120 ml Intake Free Water 100 ml 40 ml IV Total 825 ml 825 ml Tube Feeding 440 ml 605 ml Other 240 ml Output Urine Total 10 ml 350 ml Chest Tube Drainage Total 200 ml Objective General Appearance: bedridden, pale, chronically ill looking, older than her biological age ; vent dependent female ; on vent SIMV 450-30%-12, PEEP 5 Lines, tubes and drains: trach HEENT: normocephalic, atraumatic Neck: trach - Portex #7, secretions small amount, yellow color, thin consistency Respiratory/Chest: CTAB Cardiovascular/Chest: regular rate, regular rhythm Abdomen: non tender, soft, G tube , Genitourinary/Rectal: [place] Extremities: no edema, muscle atrophy Neurologic: abnormal gait, awake, poorly responsive Musculoskeletal: atrophy BLE Skin: multiple tattoos Laboratory Tests 02/12/20 12:27: POC Whole Blood Glucose [Pending] 02/12/20 17:53: POC Whole Blood Glucose [Pending] 02/13/20 00:21: POC Whole Blood Glucose 107H Current Medications Medications (Trade) Dose Ordered Sig/Villa Route PRN Reason Start Time Stop Time Status Last Admin Dose Admin Acetaminophen (Tylenol) 650 mg Q4H PRN GT Temp >100.5 02/01/20 20:30 03/02/20 20:29 02/08/20 20:41 Ascorbic Acid (Vitamin C) 500 mg DAILY GT 01/28/20 09:30 02/27/20 09:29 02/13/20 10:03 Clonazepam (KlonoPIN) 1 mg EVERY 8 HOURS ORAL 02/08/20 22:00 02/15/20 21:59 02/13/20 05:10 Dextrose/Sodium Chloride 1,000 ml @ 75 mls/hr [id number] IV 01/29/20 13:00 02/27/20 12:59 02/12/20 21:24 Famotidine (Pepcid I.v.) 20 mg Q12HR IVP 01/29/20 21:00 02/28/20 20:59 02/13/20 10:00 Gabapentin (Neurontin) 900 mg TID GT 01/28/20 09:30 02/19/20 09:29 02/13/20 10:01 Gentamicin Protocol (Gentamicin pharmacy to dose) 1 ea DAILY PRN MISC Per rx protocol 02/02/20 17:00 03/03/20 16:59 Haloperidol Lactate (Haldol) 5 mg Q6H PRN IM Agitation 01/28/20 09:30 02/15/20 09:29 Loperamide HCl (Imodium) 2 mg Q4H PRN GT Diarrhea 02/10/20 23:45 03/11/20 23:44 02/13/20 10:01 Midodrine (Pro-Amatine) 10 mg TID GT 02/07/20 18:00 04/21/20 17:59 02/13/20 10:03 Multivitamins (Multivitamins W/ Minerals 15ml Liquid) 15 ml DAILY GT 01/28/20 09:30 02/27/20 09:29 02/13/20 09:00 Pantoprazole (Protonix) 40 mg EVERY 12 HOURS IVP 01/31/20 09:30 03/01/20 09:29 02/13/20 10:02 Potassium Chloride (K-Dur) 40 meq TWICE A DAY ORAL 02/02/20 18:00 05/02/20 17:59 02/13/20 10:02 Sucralfate (Carafate) 1 gm FOUR TIMES A DAY ORAL 01/30/20 09:00 04/29/20 08:59 02/13/20 10:03 Thiamine HCl (Vitamin B1) 100 mg DAILY GT 01/28/20 09:30 02/27/20 09:29 02/13/20 10:02 Assessment/Plan Assessment/Plan ASSESSMENT VDRF/trach status Sepsis Possible pneumonia UTI recurrent GI bleeding severe C dif colitis Anemia secondary to GI bleeding Aspiration risk Dysphagia, feeding by G-tube Encephalopathy Acute kidney injury likely secondary to dehydration Recurrent bradycardia persistent Hypotension Electrolyte imbalance Severe protein calorie malnutrition Hx of hypertension History of CVA Seizure disorder with witnessed seizure episode 01/07 Psychiatric disorder Presumed scabies, s/p Rx Thrombocytopenia-transient- resolved PLAN OF CARE JULIANA off Dopamine gtt, BP better with Midodrine only on IVF, vent support, pulm toilet ABG stable on current settings on SIMV mode 450-30-12 PEEP5 , no signs of resp distress on these settings keep settings as is and titrate as needed now tachypneic intermittently CXR 01/27 no acute disease pulm toilet via [facility] CT chest 01/28 - with tree-in-bud nodular opacities in the medial left base and lingula with left bronchial bubbly material suggesting infectious or inflammatory bronchiolitis, likely due to aspiration. Small amount of similar foci seen in the right posterior lower lobe. Mild bronchiectasis and reticulation in the lingula, medial left base, and superior left upper lobe could also be due to chronic infection. CXR 02/01 -Interval development of retrocardiac airspace opacities which could represent atelectasis versus developing consolidation. probably ATX , given no fevers, resolved leukocytosis, no resp distress on current settings CXR 02/04 Bilateral mostly interstitial opacities; suspect largely chronic although there may be an acute component at the left lung base. The latter does appear somewhat improved since the previous exam. CXR 02/09 -> no definite infiltrate pancx-per ID CXR 01/13- no acute findings KUB 01/13- no acute findings UA + yeast , 01/12 UCX +yeast, started on Fluconazole 01/14 as per ID -completed BCX 01/12 NGTD BCX 01/26 and 01/27 NGTD Vanco po was prior dc and switched to Dificid , also on Flagyl per GI -till 01/28 , both extended till , completed inflammatory markers : ESR-42, CRP- wnl WBC smear NGT C dif a/b 01/30 NGT less output from rectal tube UCX 01/27 + Klebs CR- started on Gent per ID recs given prior leukocytosis and fevers SCX 02/02 + Serratia,Pseudomonas abx as per ID recs , Gent completed 02/10 ( prior extended for 3 days given mild leuk and fever), leuk resolved no fever CXR 02/09 no significant findings, no definite infiltrate CT C/ A/P noted ( see results of CT chest above), CT A/P with findings most compatible with ileus and probable infectious or inflammatory enteritis or enterocolitis. off cefepime rapid COVID 19 NGT in ED aspiration precautions Venous Duplex BLE -negative, get SCD ( unable to give a/c given anemia) closely monitor hemodynamic status repeated Venous Duplex BLE NGT heme and GI follows s/p prior EGD 01/01 -> gastric ulcer across G tube site , no active bleeding s/p EGD 01/30 -> gastric ulceration without visible bleeding Protonix IV bid ( changed from Protonix gtt), Carafate GT feeding resumed as per GI , s/p blood tx 01/30 stool OB positive , another pending transfuse to keep Hgb > 7. HH at baseline trend LFT-> trended down, hep panel NGT hx of cirrhosis- per GI management monitor renal parameters, lytes, avoid nephrotoxic IVF BUN trending down, creat stable, likely prerenal due to dehydration replace e/lytes as per nephro recs , P and Mg replaced this am as per nephro monitor volumes seizure precautions, antiepileptic optimized as per neuro recs ammonia 49, fup with further neuro recs EEG - grossly abnormal; mild to mod encephalopathy, single ictal episode CT head no acute IC pathology BP management with current regimen SNF meds supportive care dietary recs s/p 12/31 Rx for presumed scabies with permethrin and Ivermectin, repeated Ivermectin 01/08 case discussed and evaluated by supervising physician Raul Esparza MD 02/13/20 1206: Subjective Allergies: Coded Allergies: CARBAMAZEPINE (Verified Allergy, Unknown, 12/31/19) LORAZEPAM (Verified Allergy, Unknown, 12/31/19) Assessment/Plan Assessment/Plan Patient seen and examined with [employer]. Agree with above A&P as it reflects our joint deliberations. Ivanna Mora NP Feb 13, 2020 10:21 Raul Esparza MD Feb 13, 2020 12:06
--- NOTE | 2020-02-13 10:57 | General Progress Note ---
Subjective ROS Limited/Unobtainable: No Allergies: Coded Allergies: CARBAMAZEPINE (Verified Allergy, Unknown, 12/31/19) LORAZEPAM (Verified Allergy, Unknown, 12/31/19) Objective Last 24 Hour Vital Signs Date Time Temp Pulse Resp B/P (MAP) Pulse Ox O2 Delivery O2 Flow Rate FiO2 02/13/20 10:40 90 12 35 02/13/20 08:00 93 02/13/20 08:00 Mechanical Ventilator 02/13/20 08:00 98.4 92 18 95/51 (66) 100 02/13/20 08:00 35 02/13/20 07:10 88 16 35 02/13/20 04:00 Mechanical Ventilator 02/13/20 04:00 35 02/13/20 04:00 98.9 86 18 95/56 (69) 100 02/13/20 03:30 82 26 35 02/13/20 03:26 79 02/13/20 00:00 Mechanical Ventilator 02/13/20 00:00 70 02/13/20 00:00 98.8 94 18 97/58 (71) 100 02/12/20 22:59 69 27 35 02/12/20 20:00 35 02/12/20 20:00 Mechanical Ventilator 02/12/20 20:00 98.4 76 21 103/65 (78) 100 02/12/20 19:30 80 23 35 02/12/20 19:07 82 02/12/20 16:00 70 02/12/20 16:00 99.1 78 21 117/69 (85) 99 02/12/20 16:00 35 02/12/20 16:00 Mechanical Ventilator 02/12/20 14:45 65 26 35 02/12/20 12:14 97.5 70 19 93/55 (68) 100 02/12/20 12:00 35 02/12/20 12:00 79 02/12/20 12:00 Mechanical Ventilator Intake and Output 02/12/20 02/13/20 18:59 06:59 Intake Total 1550 ml 1600 ml Output Total 205 ml 355 ml Balance 1345 ml 1245 ml Intake Free Water 100 ml 40 ml IV Total 825 ml 900 ml Tube Feeding 385 ml 660 ml Other 240 ml Output Urine Total 5 ml 355 ml Chest Tube Drainage Total 200 ml Laboratory Tests 02/12/20 12:27: POC Whole Blood Glucose [Pending] 02/12/20 17:53: POC Whole Blood Glucose [Pending] 02/13/20 00:21: POC Whole Blood Glucose 107H Height (Feet): 5 Height (Inches): 1.00 Weight (Pounds): 82 General Appearance: no apparent distress EENT: normal ENT inspection Neck: supple Cardiovascular: normal rate Respiratory/Chest: decreased breath sounds Abdomen: normal bowel sounds, non tender, soft Extremities: non-tender Assessment/Plan Problem List: (1) G tube feedings ICD Codes: Z93.1 - Gastrostomy status SNOMED: 938235136, 981267242, 868175859 (2) GI bleed ICD Codes: K92.2 - Gastrointestinal hemorrhage, unspecified SNOMED: 98866988 (3) Sepsis ICD Codes: A41.9 - Sepsis, unspecified organism SNOMED: 96037135 (4) Pneumonia ICD Codes: J18.9 - Pneumonia, unspecified organism SNOMED: 906763235 Status: stable, other - Patient is now hypotensive before over 46 she will receive 500 cc of normal saline bolus to be repeated blood pressure remained below 90 further management will be decided following the boluses treatment repeat laboratory tests will be done in kori MCKAY MD Assessment/Plan: s/p EGD gastric ulcer monitor H&H C. Diff positive>> now neg GTF prn imodium carafate and ppi will fu Satish Carrillo MD Feb 13, 2020 10:57
--- NOTE | 2020-02-13 11:09 | Infectious Diseases Prog Note ---
Assessment/Plan 39yo F with: Severe Sepsis Fever, recurrent; SP Leukocytosis; recurrent; mild UTI -02/04 CXR: Bilateral mostly interstitial opacities; suspect largely chronic althoughthere may be an acute component at the left lung base. The latter does appear somewhat improved since the previous exam. -02/02 sp cx S. marcences (R ancef, CTX, mami; I Levo; S Genta, Ceftazidime, Cefepime, bactrim), GNR #2 -02/01 CXR: Interval development of retrocardiac airspace opacities which could represent atelectasis versus developing consolidation. u/a wbc 5-10, nit neg, leuk +2; -01/28 CXR: Subtle reticular nodular opacities in the left apex which may be related to scarring versus acute small airway disease/bronchitis CT c/abd/p wo: Study substantially limited due to lack of IV contrast. Findings most compatible with ileus and probable infectious or inflammatory enteritis or enterocolitis. Large low-attenuation pelvic fluid of uncertain significance, potentially reactive.Appendix not identified. Percutaneous gastrostomy tube adequately positioned in the stomach. Rectal tube. Urinary bladder wall thickening could be incidental, due to high outlet pressures, or could represent cystitis.Cholecystectomy. -01/27 u/a no pyuria, nit +, leuk +3; ucx >100k CRE K, pna (S Gentamycin), P . miriabilis, MDR P, fluorensces (I Gentamycin) CXR: no acute disease Bc xNTD -01/26 Bcx Neg -01/13 CXR: no acute disease -01/12 u/a wbc tnct, nit neg, latrell +3; ucx >100k C. tropicalis Bcx NTD Severe Cdiff colitis -01/30 Cdif toxin a/b neg -01/06 Cdif toxin + 01/27 KUB:Severely dilated small bowel loop in the central abdomen could reflect obstruction. Diffusely fluid distended colon. -01/13 KUB: no acute findings Recurrent GIB 01/06 u/aneg 12/30 BCx 1/2 +CONS, likely contaminant 12/30 UA neg, COVID rapid Ag neg 12/30 CXR 1. Density overlying the bilateral lung apices. May represent pleural thickening, multifocal airspace opacities, versus summation artifact. 01/01 BCx Neg 01/02 BCx Neg Acute blood loss anemia Possible pna on CXR, sp rx Seizure episode -01/10 CT head: Third and lateral ventriculomegaly. Associated enlargement of the extra axial CSF spaces indicates that this is probably due to central volume loss, but the possibility of hydrocephalus should also be considered. At the degree of volume loss is considerably out of proportion to patient's age. Periventricular deep white matter low-attenuation. Probably on the basis of microvascular ischemic change but given patient's age the possibility of demyelinating disease should be considered as well. 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 [facility] will continue to follow. Subjective Allergies: Coded Allergies: CARBAMAZEPINE (Verified Allergy, Unknown, 12/31/19) LORAZEPAM (Verified Allergy, Unknown, 12/31/19) Afebrile No Leukocytosis Objective Last 24 Hour Vital Signs Date Time Temp Pulse Resp B/P (MAP) Pulse Ox O2 Delivery O2 Flow Rate FiO2 02/13/20 10:40 90 12 35 02/13/20 08:00 93 02/13/20 08:00 Mechanical Ventilator 02/13/20 08:00 98.4 92 18 95/51 (66) 100 02/13/20 08:00 35 02/13/20 07:10 88 16 35 02/13/20 04:00 Mechanical Ventilator 02/13/20 04:00 35 02/13/20 04:00 98.9 86 18 95/56 (69) 100 02/13/20 03:30 82 26 35 02/13/20 03:26 79 02/13/20 00:00 Mechanical Ventilator 02/13/20 00:00 70 02/13/20 00:00 98.8 94 18 97/58 (71) 100 02/12/20 22:59 69 27 35 02/12/20 20:00 35 02/12/20 20:00 Mechanical Ventilator 02/12/20 20:00 98.4 76 21 103/65 (78) 100 02/12/20 19:30 80 23 35 02/12/20 19:07 82 02/12/20 16:00 70 02/12/20 16:00 99.1 78 21 117/69 (85) 99 02/12/20 16:00 35 02/12/20 16:00 Mechanical Ventilator 02/12/20 14:45 65 26 35 02/12/20 12:14 97.5 70 19 93/55 (68) 100 02/12/20 12:00 35 02/12/20 12:00 79 02/12/20 12:00 Mechanical Ventilator Height (Feet): 5 Height (Inches): 1.00 Weight (Pounds): 82 GEN: On Vent 35% HEENT: NCAT, MMM, EOMI Pulm: Equal chest rise and fall B/L, NO accessory muscle use ABD: Soft, ND Laboratory Tests Test 02/12/20 12:27 02/12/20 17:53 02/13/20 00:21 POC Whole Blood Glucose Pending Pending 107 MG/DL (74-106) H Current Medications Medications (Trade) Dose Ordered Sig/Villa Route PRN Reason Start Time Stop Time Status Last Admin Dose Admin Acetaminophen (Tylenol) 650 mg Q4H PRN GT Temp >100.5 02/01/20 20:30 03/02/20 20:29 02/08/20 20:41 Ascorbic Acid (Vitamin C) 500 mg DAILY GT 01/28/20 09:30 02/27/20 09:29 02/13/20 10:03 Clonazepam (KlonoPIN) 1 mg EVERY 8 HOURS ORAL 02/08/20 22:00 02/15/20 21:59 02/13/20 05:10 Dextrose/Sodium Chloride 1,000 ml @ 75 mls/hr [id number] IV 01/29/20 13:00 02/27/20 12:59 02/12/20 21:24 Famotidine (Pepcid I.v.) 20 mg Q12HR IVP 01/29/20 21:00 02/28/20 20:59 02/13/20 10:00 Gabapentin (Neurontin) 900 mg TID GT 01/28/20 09:30 02/19/20 09:29 02/13/20 10:01 Gentamicin Protocol (Gentamicin pharmacy to dose) 1 ea DAILY PRN MISC Per rx protocol 02/02/20 17:00 03/03/20 16:59 Haloperidol Lactate (Haldol) 5 mg Q6H PRN IM Agitation 01/28/20 09:30 02/15/20 09:29 Loperamide HCl (Imodium) 2 mg Q4H PRN GT Diarrhea 02/10/20 23:45 03/11/20 23:44 02/13/20 10:01 Midodrine (Pro-Amatine) 10 mg TID GT 02/07/20 18:00 04/21/20 17:59 02/13/20 10:03 Multivitamins (Multivitamins W/ Minerals 15ml Liquid) 15 ml DAILY GT 01/28/20 09:30 02/27/20 09:29 02/13/20 09:00 Pantoprazole (Protonix) 40 mg EVERY 12 HOURS IVP 01/31/20 09:30 03/01/20 09:29 02/13/20 10:02 Potassium Chloride (K-Dur) 40 meq TWICE A DAY ORAL 02/02/20 18:00 05/02/20 17:59 02/13/20 10:02 Sucralfate (Carafate) 1 gm FOUR TIMES A DAY ORAL 01/30/20 09:00 04/29/20 08:59 02/13/20 10:03 Thiamine HCl (Vitamin B1) 100 mg DAILY GT 01/28/20 09:30 02/27/20 09:29 02/13/20 10:02 Jesus Hanson MD Feb 13, 2020 11:09
[2020-02-13 12:10] VITALS: BP 111/51
--- NOTE | 2020-02-13 12:44 | Surgery Progress Note ---
Surgery Progress Note Subjective Symptoms: improved, tolerating diet, passing flatus, BM Objective Last 24 Hour Vital Signs Date Time Temp Pulse Resp B/P (MAP) Pulse Ox O2 Delivery O2 Flow Rate FiO2 02/13/20 12:11 35 02/13/20 12:10 97.3 89 18 111/51 (71) 100 02/13/20 12:00 Mechanical Ventilator 02/13/20 10:40 90 12 35 02/13/20 08:00 93 02/13/20 08:00 Mechanical Ventilator 02/13/20 08:00 98.4 92 18 95/51 (66) 100 02/13/20 08:00 35 02/13/20 07:10 88 16 35 02/13/20 04:00 Mechanical Ventilator 02/13/20 04:00 35 02/13/20 04:00 98.9 86 18 95/56 (69) 100 02/13/20 03:30 82 26 35 02/13/20 03:26 79 02/13/20 00:00 Mechanical Ventilator 02/13/20 00:00 70 02/13/20 00:00 98.8 94 18 97/58 (71) 100 02/12/20 22:59 69 27 35 02/12/20 20:00 35 02/12/20 20:00 Mechanical Ventilator 02/12/20 20:00 98.4 76 21 103/65 (78) 100 02/12/20 19:30 80 23 35 02/12/20 19:07 82 02/12/20 16:00 70 02/12/20 16:00 99.1 78 21 117/69 (85) 99 02/12/20 16:00 35 02/12/20 16:00 Mechanical Ventilator 02/12/20 14:45 65 26 35 I&O Intake and Output 02/12/20 02/13/20 18:59 06:59 Intake Total 1550 ml 1600 ml Output Total 205 ml 355 ml Balance 1345 ml 1245 ml Intake Free Water 100 ml 40 ml IV Total 825 ml 900 ml Tube Feeding 385 ml 660 ml Other 240 ml Output Urine Total 5 ml 355 ml Chest Tube Drainage Total 200 ml Dressing: saturated Cardiovascular: RSR Respiratory: decreased breath sounds Abdomen: non-tender, present bowel sounds, non-distended Extremities: no edema, no tenderness, no cyanosis Laboratory Tests Test 02/12/20 17:53 02/13/20 00:21 POC Whole Blood Glucose Pending 107 MG/DL (74-106) H Plan Problems: (1) Pneumonia (2) Sepsis Assessment & Plan: leukocytosis anemia lactic acidosis agree with GI recommend EGD planned for 12/31 hold feeding for now trend h/h monitor for bleeding no acute hemorrhage will be available in event needs exploration for hemostasis prbc as per heme thank you will follow with recs cont abx worsening wbc wbc trending down comfortable appearing no n/v hypotensive in ICU again worse pending CT results - noted PICC ordered improving wbc improved labs and micro trending labs improved wbc resolved prognosis guarded Pt presented on admission in emaciated state. Pt has tracheostomy and GT. NO skin concerns noted to skin under collar of trach. NO erythema or evidence of skin erosion at GT site. Pt noted to have scaly pimple-like rash with webbing noted to R and L axillae, undersides of both breasts, Bilat groin and lower back. Tracking and webbing noted to hands and feet. Pt restless and scratching at skin. Non-Blanching erythema without induration or fluctuance noted to R and L hips and trochanteric areas.Non-blanching erythema noted along spine. Non-Blanching erythema without induration noted to Sacrum. Non-Blanching erythema noted to R and L Malleoli and both heels. Tx.Plan: Please apply Cavilon Skin Barrier to each bony Prominences at risks for Skin Breakdown. Cover each area with Optifoam drsgs. Change every 7 days and prn. Apply Moisture Barrier Paste to Sacrum. Cover with Optifoam drsg. Change every 3 days and prn. Reposition at least every 2hours or as tolerated. Off-load heels with pillow. APM/EMELI Mattress overlay. improving cont current care plan Incontinent social dermatitis noted around the bilateral groin creases and vaginal area. Site clean. Monitor for incontinence. There is marked enlargement of the third and lateral ventricles and extra axial CSF spaces, in particular the former. There is considerable periventricular deep white matter low-attenuation. Otherwise normal mobley-white differentiation. No acute hemorrhage or edema. No mass effect nor midline shift. Visualized orbits and sinuses are unremarkable. The calvarium is intact Impression: Third and lateral ventriculomegaly. Associated enlargement of the extra axial CSF spaces indicates that this is probably due to central volume loss, but the possibility of hydrocephalus should also be considered. At the degree of volume loss is considerably out of proportion to patient's age. Correlate with clinical history Periventricular deep white matter low-attenuation. Probably on the basis of microvascular ischemic change but given patient's age the possibility of demyelinating disease should be considered as well. Negative for acute intracranial bleed or mass effect ABDOMEN: Liver: Unremarkable. Gallbladder and bile ducts: Cholecystectomy. No ductal dilation. Pancreas: Unremarkable. No ductal dilation. Spleen: Unremarkable. No splenomegaly. Adrenals: Unremarkable. No mass. Kidneys and ureters: Unremarkable. No obstructing stones. No hydronephrosis. Stomach and bowel: Operative bowel findings. Diffuse small bowel wall thickening with areas of distention and fluid-filled colonic loops. No clear focal transition point to suggest small bowel obstruction. PELVIS: Appendix: Appendix not identified. Bladder: Urinary bladder wall thickening could be incidental, due to high outlet pressures, or could represent cystitis. No stones. Reproductive: Unremarkable as visualized. ABDOMEN and PELVIS: Intraperitoneal space: Large low-attenuation pelvic fluid of uncertain significance, potentially reactive. No free air. Bones/joints: No acute fracture. No dislocation. Soft tissues: Bilateral buttock injection granulomas. Vasculature: Unremarkable. No abdominal aortic aneurysm. Lymph nodes: Unremarkable. No enlarged lymph nodes. Tubes, lines and devices: Percutaneous gastrostomy tube adequately positioned in the stomach. Rectal tube. Other findings: No perforation seen. IMPRESSION: 1. Study substantially limited due to lack of IV contrast. 2. Findings most compatible with ileus and probable infectious or inflammatory enteritis or enterocolitis. 3. Large low-attenuation pelvic fluid of uncertain significance, potentially reactive. 4. Appendix not identified. 5. Percutaneous gastrostomy tube adequately positioned in the stomach. Rectal tube. 6. Urinary bladder wall thickening could be incidental, due to high outlet pressures, or could represent cystitis. 7. Cholecystectomy. (3) GI bleed (4) G tube feedings Assessment & Plan: DAILY ESTIMATED NEEDS: Needs based on Underweight, critical care 37.3kg 30-40 kcals/kg 6855-2377 total kcals 1.25-2 g protein/kg 47-75 g total protein 25-35 mL/kg 933-1306 total fluid mLs NUTRITION DIAGNOSIS: Increased kcal and pro needs r/t underweight status as evidenced by BMI 14.1, pt is 68% of ideal body weight w/ generalized severe wasting, trach and peg dep. CURRENT TF:Vital AF 1.2 @55 x20 hrs ENTERAL NUTRITION RECOMMENDATIONS: Vital AF 1.2 @ 55ml/hr x20 hrs to provide 1100ml 1320kcal 83g prot, 892ml free water - Rec to continue elemental TF formula while stool C-diff positive, +LBM - HOLD 1HR BEFORE AND AFTER SYNTHROID MEDS - Flush per MD. HOB over 30 degrees ADDITIONAL RECOMMENDATIONS: 1) Per SNF: 5'4" and 81# Maintain calibrated bed scale wts w/ added P200 mattress 2) Lytes daily madhav w/ loose stools, replete as needed 3) Skin integrity: Continue BRIAN VIA GT BID + Vit C 4) Accuchecks for Hypoglycemia 5) Add probiotics for stool C-diff+ . George Woods Feb 13, 2020 12:44
[2020-02-13 15:31] VITALS: BP 99/50
[2020-02-13 20:00] VITALS: BP 105/47
[2020-02-13] MEDS: D5 1/2NS 1,000 ML IV SCH (20:41)
[2020-02-14] VITALS: BP 114/67
[2020-02-14 04:00] VITALS: BP 115/63
[2020-02-14 05:15] LABS: BASOPHILS % (AUTO) 1.4 % (0.0-2.0); HEMATOCRIT 26.9 % (37.0-47.0); HEMOGLOBIN 8.7 G/DL (12.0-16.0); MEAN CORPUSCULAR VOLUME 88 FL (80-99); NEUTROPHILS % (AUTO) 57.7 % (45.0-75.0); PLATELET COUNT 722 K/UL (150-450); RED BLOOD COUNT 3.05 M/UL (4.20-5.40); RED CELL DISTRIBUTION WIDTH 14.7 % (11.6-14.8); WHITE BLOOD COUNT 10.5 K/UL (4.8-10.8)
--- NOTE | 2020-02-14 06:46 | Hematology/Onc Progress Note ---
Assessment/Plan Assessment/Plan # Anemia rule out underlying gi bleed --> Dr. Carrillo has been consulted-->endosco gastric ulceration --> trend hgb 7-->7.4-->7.9-->8.1->9.6-->8.5->9.1-->10-->11-->10.3-->10.4-->11->9.8-->7.4 ->9-->10.5-->9.1-->8.7-->8.4-->8.6-->8.7 --> anemia panel ordered-->reviewed --> prn transfusion --> protonix started # Leukocytosis is likely related to pna on imaging --> abx has been started --> if wbc worsens, consider abx vanc/zosyn--> ceftriaxone-->v anc->fluc/flagyl/vanc-->flagyl/fidoxomicin->vanc/cefepime/flagyl-->gentamcinflag yl --> smear is noted --> wbc 25-->15-->14-->16->7.6-->12-->20->13->11->14-->33-->16->8->11-->12->10.5 --> pressors prn # Thrombocytopenia med related v labs error --> plt trend 167-->61-->227->373->457 --> meds have been reviewed --> no hep or lovenox # Sepsis --> on abx for pna --> pressors as needed --> fluids as per pcp for hypotension # Pneumonia --> pulm, Dr. 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, will follow Subjective Constitutional: Denies: no symptoms, chills, fever, malaise, weakness, other HEENT: Denies: no symptoms, eye pain, blurred vision, tearing, double vision, ear pain, ear discharge, nose pain, nose congestion, throat pain, throat swelling, mouth pain, mouth swelling, other Cardiovascular: Denies: no symptoms, chest pain, edema, irregular heart rate, lightheadedness, palpitations, syncope, other Respiratory: Denies: no symptoms, cough, shortness of breath, SOB with excertion, SOB at rest, sputum, wheezing, other Neurologic/Psychiatric: Denies: no symptoms, anxiety, depressed, emotional problems, headache, numbness, paresthesia, pre-existing deficit, seizure, tingling, tremors, weakness, other Endocrine: Denies: no symptoms, excessive sweating, flushing, intolerance to cold, intolerance to heat, increased hunger, increased thirst, increased urine, unexplained weight gain, unexplained weight loss, other Hematologic/Lymphatic: Denies: no symptoms, anemia, easy bleeding, easy bruising, adenopathy, other Allergies: Coded Allergies: CARBAMAZEPINE (Verified Allergy, Unknown, 12/31/19) LORAZEPAM (Verified Allergy, Unknown, 12/31/19) Subjective 01/01 altered, trach, no bleedin wbc improved on abx, seen by gi 01/02 egd study noted, also with plts 61k, have vitaly Armendariz Rn, will recheck cbc 01/03 remains agitated, vitaly rn, no bleeding, cbc noted as well as id recs 01/04 on vent, with melena overnight, no bleeding, vitaly rn, labs reviewed 01/06 on vent, remains agitated, no bleeding, vitaly rn, smear is noted 01/07 on vent, restless, asymptomatic, noncooperative 01/[address] John obtained, reviewed, meds adjusted, eeg pending 01/09 labs noted, no bleeding, ativan has been discontinued, meds reviewed 01/10 trach to vent, agitated, with wrist restraints, no major changes, no bleeding 01/11 labs are reviewed, on trach to vent, no bleeding, agitated overnight, no complaints 01/13 labs noted, no bleeding, is on vent/trach, no bleeding, vitaly rn, labs are noted 01/14 labs are noted, no bleeding, remains on v/t, remains agitated, no bleeding 01/15 is c.diff positive, wbc higher at 21k, labs noted, on abx, reviewed gi, id recs 01/16 remains on vent, wbc is improved, in sr, as abx per id 01/17 recieved dopamine, tube feeds, on soft restraints, no bleeding, vitaly rn 01/18 labs are noted, no bleeding, vitaly rn, no major changes 01/20 on dopamine gtt, with restraints, no major changes, labs noted 01/21 labs reviewed, no bleeding, vitaly rn, no major changes 01/22 transferred to icu for higher loc, dopamine on hold as bp is good, have increased Synthroid 01/23 labs are pending, meds noted, no bleeding, dopamine gtt ongoing, cbc noted 01/24 still nv, no bleeding, labs reviewed, vitaly rn, with rectal tube in place, on dopamine gtt 01/25 is on bipap, nv, no bleeding, remains on low dose pressorm hgb 11 01/27 on dopamine, hr was elevated overnight, cards aware 01/28 on vent, with ivfs running, rectal tube with red blood noted, consider gi eval 01/29 on vent, labs reviewed, wbc 22, hgb 8.4, on abx currently, vanc/flagyl/cefepime 02/02 labs reviewed, no bleeding, on vent, no night sweats, wbc improved 02/03 is on gtube feeds, with trach to vent, oxygen as needed, labs wbc better 02/04 nv, is on gt, on vent, no bleeding, labs are noted, guarded prognosis 02/05 labs are noted, nv, is on gt feeds, no bleeding, abx as needed 02/06 labs reviewed, is on tube feeds, on vent, nv, no bleeding 02/07 labs are noted, no bleeding, trach/to vent, wth gtube, meds reviewed 02/08 very agitated, no bleeding, med noted, no night sweats, in restraints 02/10 off dopamine currently, labs reviewed, overnight agitated 02/12 still agitated overnight, cbc has been reordered recent hgb reviewed 02/13 labs reviewed, is on ivfs, meds noted, no bleeding, vitaly rn, hgb 8.7 Objective Objective Current Medications Medications (Trade) Dose Ordered Sig/Villa Route PRN Reason Start Time Stop Time Status Last Admin Dose Admin Acetaminophen (Tylenol) 650 mg Q4H PRN GT Temp >100.5 02/01/20 20:30 03/02/20 20:29 02/08/20 20:41 Ascorbic Acid (Vitamin C) 500 mg DAILY GT 01/28/20 09:30 02/27/20 09:29 02/13/20 10:03 Clonazepam (KlonoPIN) 1 mg EVERY 8 HOURS ORAL 02/08/20 22:00 02/15/20 21:59 02/14/20 05:57 Dextrose/Sodium Chloride 1,000 ml @ 75 mls/hr [id number] IV 01/29/20 13:00 02/27/20 12:59 02/13/20 20:41 Famotidine (Pepcid I.v.) 20 mg Q12HR IVP 01/29/20 21:00 02/28/20 20:59 02/13/20 21:10 Gabapentin (Neurontin) 900 mg TID GT 01/28/20 09:30 02/19/20 09:29 02/13/20 17:42 Haloperidol Lactate (Haldol) 5 mg Q6H PRN IM Agitation 01/28/20 09:30 02/15/20 09:29 Loperamide HCl (Imodium) 2 mg Q4H PRN GT Diarrhea 02/10/20 23:45 03/11/20 23:44 02/13/20 10:01 Midodrine (Pro-Amatine) 10 mg TID GT 02/07/20 18:00 04/21/20 17:59 02/13/20 17:43 Multivitamins (Multivitamins W/ Minerals 15ml Liquid) 15 ml DAILY GT 01/28/20 09:30 02/27/20 09:29 02/13/20 09:00 Pantoprazole (Protonix) 40 mg EVERY 12 HOURS IVP 01/31/20 09:30 03/01/20 09:29 02/13/20 21:10 Potassium Chloride (K-Dur) 40 meq TWICE A DAY ORAL 02/02/20 18:00 05/02/20 17:59 02/13/20 17:43 Sucralfate (Carafate) 1 gm FOUR TIMES A DAY ORAL 01/30/20 09:00 04/29/20 08:59 02/13/20 21:10 Thiamine HCl (Vitamin B1) 100 mg DAILY GT 01/28/20 09:30 02/27/20 09:29 02/13/20 10:02 Last 24 Hour Vital Signs Date Time Temp Pulse Resp B/P (MAP) Pulse Ox O2 Delivery O2 Flow Rate FiO2 02/14/20 04:00 94 02/14/20 04:00 98.1 84 23 115/63 (80) 100 02/14/20 04:00 35 02/14/20 04:00 Mechanical Ventilator 02/14/20 03:30 80 22 28 02/14/20 00:00 35 02/14/20 00:00 Mechanical Ventilator 02/14/20 00:00 98.0 77 23 114/67 (83) 100 02/14/20 00:00 89 02/13/20 22:48 89 20 28 02/13/20 20:00 60 02/13/20 20:00 98.1 59 17 105/47 (66) 100 02/13/20 20:00 Mechanical Ventilator 02/13/20 19:28 65 19 28 02/13/20 16:00 35 02/13/20 16:00 Mechanical Ventilator 02/13/20 16:00 Mechanical Ventilator 02/13/20 16:00 57 02/13/20 15:31 98.0 58 17 99/50 (66) 100 02/13/20 15:00 72 19 28 02/13/20 12:11 35 02/13/20 12:10 97.3 89 18 111/51 (71) 100 02/13/20 12:00 Mechanical Ventilator 02/13/20 12:00 79 02/13/20 10:40 90 12 35 02/13/20 08:00 93 02/13/20 08:00 Mechanical Ventilator 02/13/20 08:00 98.4 92 18 95/51 (66) 100 02/13/20 08:00 35 02/13/20 07:10 88 16 35 02/13/20 04:00 Mechanical Ventilator 02/13/20 04:00 35 02/13/20 04:00 98.9 86 18 95/56 (69) 100 02/13/20 03:30 82 26 35 02/13/20 03:26 79 02/13/20 00:00 Mechanical Ventilator 02/13/20 00:00 70 02/13/20 00:00 98.8 94 18 97/58 (71) 100 02/12/20 22:59 69 27 35 9/28/20 20:00 35 02/12/20 20:00 Mechanical Ventilator 02/12/20 20:00 98.4 76 21 103/65 (78) 100 02/12/20 19:30 80 23 35 02/12/20 19:07 82 02/12/20 16:00 70 02/12/20 16:00 99.1 78 21 117/69 (85) 99 02/12/20 16:00 35 02/12/20 16:00 Mechanical Ventilator 02/12/20 14:45 65 26 35 02/12/20 12:14 97.5 70 19 93/55 (68) 100 02/12/20 12:00 35 02/12/20 12:00 79 02/12/20 12:00 Mechanical Ventilator 02/12/20 10:50 67 25 35 02/12/20 08:00 97.9 89 20 94/59 (71) 100 02/12/20 08:00 Mechanical Ventilator 02/12/20 08:00 78 02/12/20 08:00 35 Intake and Output 02/13/20 02/14/20 19:00 07:00 Intake Total 1015 ml 1055 ml Output Total 150 ml 780 ml Balance 865 ml 275 ml Intake Free Water 220 ml 150 ml IV Total 300 ml 300 ml Tube Feeding 495 ml 605 ml Output Urine Total 480 ml Stool Total 150 ml 300 ml # Voids 1 Labs Test 02/11/20 12:41 02/11/20 15:33 02/11/20 23:16 02/12/20 03:15 White Blood Count 11.8 K/UL (4.8-10.8) 10.0 K/UL (4.8-10.8) Red Blood Count 2.79 M/UL (4.20-5.40) 2.97 M/UL (4.20-5.40) Hemoglobin 8.3 G/DL (12.0-16.0) 8.6 G/DL (12.0-16.0) Hematocrit 25.5 % (37.0-47.0) 26.5 % (37.0-47.0) Mean Corpuscular Volume 91 FL (80-99) 89 FL (80-99) Mean Corpuscular Hemoglobin 29.7 PG (27.0-31.0) 28.9 PG (27.0-31.0) Mean Corpuscular Hemoglobin Concent 32.5 G/DL (32.0-36.0) 32.5 G/DL (32.0-36.0) Red Cell Distribution Width 15.2 % (11.6-14.8) 14.5 % (11.6-14.8) Platelet Count 739 K/UL (150-450) 739 K/UL (150-450) Mean Platelet Volume 5.8 FL (6.5-10.1) 4.9 FL (6.5-10.1) Neutrophils (%) (Auto) 56.1 % (45.0-75.0) 55.7 % (45.0-75.0) Lymphocytes (%) (Auto) 24.1 % (20.0-45.0) 25.4 % (20.0-45.0) Monocytes (%) (Auto) 14.7 % (1.0-10.0) 13.5 % (1.0-10.0) Eosinophils (%) (Auto) 3.1 % (0.0-3.0) 4.0 % (0.0-3.0) Basophils (%) (Auto) 2.0 % (0.0-2.0) 1.4 % (0.0-2.0) POC Whole Blood Glucose 98 MG/DL (74-106) Sodium Level 138 MMOL/L (136-145) Potassium Level 4.2 MMOL/L (3.5-5.1) Chloride Level 100 MMOL/L (98-107) Carbon Dioxide Level 34 MMOL/L (21-32) Anion Gap 4 mmol/L (5-15) Blood Urea Nitrogen 7 mg/dL (7-18) Creatinine 0.4 MG/DL (0.55-1.30) Estimat Glomerular Filtration Rate > 60 mL/min (>60) Glucose Level 83 MG/DL (74-106) Calcium Level 8.4 MG/DL (8.5-10.1) Phosphorus Level 2.7 MG/DL (2.5-4.9) Magnesium Level 1.7 MG/DL (1.8-2.4) Total Bilirubin 0.2 MG/DL (0.2-1.0) Aspartate Amino Transf (AST/SGOT) 26 U/L (15-37) Alanine Aminotransferase (ALT/SGPT) 25 U/L (12-78) Alkaline Phosphatase 335 U/L (46-116) Total Protein 6.0 G/DL (6.4-8.2) Albumin 1.7 G/DL (3.4-5.0) Globulin 4.3 g/dL Albumin/Globulin Ratio 0.4 (1.0-2.7) Test 02/12/20 05:22 02/12/20 12:27 02/12/20 17:53 02/13/20 00:21 POC Whole Blood Glucose 114 MG/DL (74-106) 107 MG/DL (74-106) Test 02/13/20 12:56 02/13/20 18:46 02/14/20 02:02 02/14/20 02:55 POC Whole Blood Glucose 86 MG/DL (74-106) 86 MG/DL (74-106) White Blood Count 10.5 K/UL (4.8-10.8) Red Blood Count 3.05 M/UL (4.20-5.40) Hemoglobin 8.7 G/DL (12.0-16.0) Hematocrit 26.9 % (37.0-47.0) Mean Corpuscular Volume 88 FL (80-99) Mean Corpuscular Hemoglobin 28.6 PG (27.0-31.0) Mean Corpuscular Hemoglobin Concent 32.4 G/DL (32.0-36.0) Red Cell Distribution Width 14.7 % (11.6-14.8) Platelet Count 722 K/UL (150-450) Mean Platelet Volume 3.9 FL (6.5-10.1) Neutrophils (%) (Auto) 57.7 % (45.0-75.0) Lymphocytes (%) (Auto) 23.0 % (20.0-45.0) Monocytes (%) (Auto) 15.0 % (1.0-10.0) Eosinophils (%) (Auto) 3.0 % (0.0-3.0) Basophils (%) (Auto) 1.4 % (0.0-2.0) Test 02/14/20 05:55 POC Whole Blood Glucose 113 MG/DL (74-106) Height (Feet): 5 Height (Inches): 1.00 Weight (Pounds): 82 Objective Vital Signs General Appearance: ++ cachectic, chronically ill HEENT: normocephalic, atraumatic ++ trach Resp: other -. vent ++ Cardiovascular: regular rate, rhythm, no edema Gastrointestinal: gtube in place, without erythema Rectal: other - Hemoccult positive [place]: back normal, gait/station normal, non-tender Lymphatic: no adenopathy Baltazar Cortes MD Feb 14, 2020 06:46
--- NOTE | 2020-02-14 07:56 | General Progress Note ---
Subjective ROS Limited/Unobtainable: No Allergies: Coded Allergies: CARBAMAZEPINE (Verified Allergy, Unknown, 12/31/19) LORAZEPAM (Verified Allergy, Unknown, 12/31/19) Objective Last 24 Hour Vital Signs Date Time Temp Pulse Resp B/P (MAP) Pulse Ox O2 Delivery O2 Flow Rate FiO2 02/14/20 04:00 94 02/14/20 04:00 98.1 84 23 115/63 (80) 100 02/14/20 04:00 35 02/14/20 04:00 Mechanical Ventilator 02/14/20 03:30 80 22 28 02/14/20 00:00 35 02/14/20 00:00 Mechanical Ventilator 02/14/20 00:00 98.0 77 23 114/67 (83) 100 02/14/20 00:00 89 02/13/20 22:48 89 20 28 02/13/20 20:00 60 02/13/20 20:00 98.1 59 17 105/47 (66) 100 02/13/20 20:00 Mechanical Ventilator 02/13/20 19:28 65 19 28 02/13/20 16:00 35 02/13/20 16:00 Mechanical Ventilator 02/13/20 16:00 Mechanical Ventilator 02/13/20 16:00 57 02/13/20 15:31 98.0 58 17 99/50 (66) 100 02/13/20 15:00 72 19 28 02/13/20 12:11 35 02/13/20 12:10 97.3 89 18 111/51 (71) 100 02/13/20 12:00 Mechanical Ventilator 02/13/20 12:00 79 02/13/20 10:40 90 12 35 02/13/20 08:00 93 02/13/20 08:00 Mechanical Ventilator 02/13/20 08:00 98.4 92 18 95/51 (66) 100 02/13/20 08:00 35 Intake and Output 02/13/20 02/14/20 18:59 06:59 Intake Total 1090 ml 1430 ml Output Total 150 ml 780 ml Balance 940 ml 650 ml Intake Free Water 220 ml 150 ml IV Total 375 ml 675 ml Tube Feeding 495 ml 605 ml Output Urine Total 480 ml Stool Total 150 ml 300 ml # Voids 1 Laboratory Tests 02/13/20 12:56: POC Whole Blood Glucose [Pending] 02/13/20 18:46: POC Whole Blood Glucose 86 02/14/20 02:02: POC Whole Blood Glucose 86 02/14/20 02:55: White Blood Count 10.5, Red Blood Count 3.05L, Hemoglobin 8.7L, Hematocrit 26.9L , Mean Corpuscular Volume 88, Mean Corpuscular Hemoglobin 28.6, Mean Corpuscular Hemoglobin Concent 32.4, Red Cell Distribution Width 14.7, Platelet Count 722H, Mean Platelet Volume 3.9L, Neutrophils (%) (Auto) 57.7, Lymphocytes (%) (Auto) 23.0, Monocytes (%) (Auto) 15.0H, Eosinophils (%) (Auto) 3.0, Basophils (%) (Auto) 1.4 02/14/20 05:55: POC Whole Blood Glucose 113H Height (Feet): 5 Height (Inches): 1.00 Weight (Pounds): 82 General Appearance: no apparent distress EENT: normal ENT inspection Neck: supple Cardiovascular: normal rate Respiratory/Chest: decreased breath sounds Abdomen: soft, hypoactive bowel sounds, decreased bowel sounds Extremities: non-tender Assessment/Plan Problem List: (1) G tube feedings ICD Codes: Z93.1 - Gastrostomy status SNOMED: 255386581, 095604050, 576281067 (2) GI bleed ICD Codes: K92.2 - Gastrointestinal hemorrhage, unspecified SNOMED: 72978210 (3) Sepsis ICD Codes: A41.9 - Sepsis, unspecified organism SNOMED: 64914795 (4) Pneumonia ICD Codes: J18.9 - Pneumonia, unspecified organism SNOMED: 458619435 Status: stable, other - Patient is now hypotensive before over 46 she will receive 500 cc of normal saline bolus to be repeated blood pressure remained below 90 further management will be decided following the boluses treatment repeat laboratory tests will be done in a.mDominik MCKAY MD Assessment/Plan: s/p EGD gastric ulcer monitor H&H C. Diff positive>> now neg GTF prn imodium ppi will Satish Junior MD Feb 14, 2020 07:56
[2020-02-14 08:00] VITALS: BP 104/58
[2020-02-14] MEDS: Multivitamins W/Minerals 15 ML UDC GT SCH (08:38)
[2020-02-14] MEDS: Thiamine 100mg tab GT SCH (08:38)
[2020-02-14] MEDS: Ascorbic Acid 500mg tab GT SCH (08:38)
[2020-02-14] MEDS: Pantoprazole Inj IVP SCH ×2 (08:38→20:50)
[2020-02-14] MEDS: Midodrine 10mg tab GT SCH ×3 (08:38→17:11)
[2020-02-14] MEDS: Sucralfate 1gm tab ORAL SCH ×4 (08:39→20:50)
[2020-02-14] MEDS: Gabapentin 300 MG/6 ML Soln GT SCH ×3 (08:39→17:11)
[2020-02-14] MEDS: D5 1/2NS 1,000 ML IV SCH ×2 (09:57→23:41)
--- NOTE | 2020-02-14 10:08 | Pulmonology Progress Note ---
Subjective ROS Limited/Unobtainable: No Allergies: Coded Allergies: CARBAMAZEPINE (Verified Allergy, Unknown, 12/31/19) LORAZEPAM (Verified Allergy, Unknown, 12/31/19) Subjective in JULIANA no signs of resp distress on current vent settings on Midodrine, off Dopamine gtt mild leuk resolved, remains afebrile CXR 02/09 - no definite infiltrate repeated venous Duplex BLE NGT Objective Last 24 Hour Vital Signs Date Time Temp Pulse Resp B/P (MAP) Pulse Ox O2 Delivery O2 Flow Rate FiO2 02/14/20 08:00 Mechanical Ventilator 02/14/20 08:00 35 02/14/20 08:00 97.9 72 22 104/58 (73) 100 02/14/20 04:00 94 02/14/20 04:00 98.1 84 23 115/63 (80) 100 02/14/20 04:00 35 02/14/20 04:00 Mechanical Ventilator 02/14/20 03:30 80 22 28 02/14/20 00:00 35 02/14/20 00:00 Mechanical Ventilator 02/14/20 00:00 98.0 77 23 114/67 (83) 100 02/14/20 00:00 89 02/13/20 22:48 89 20 28 02/13/20 20:00 60 02/13/20 20:00 98.1 59 17 105/47 (66) 100 02/13/20 20:00 Mechanical Ventilator 02/13/20 19:28 65 19 28 02/13/20 16:00 35 02/13/20 16:00 Mechanical Ventilator 02/13/20 16:00 Mechanical Ventilator 02/13/20 16:00 57 02/13/20 15:31 98.0 58 17 99/50 (66) 100 02/13/20 15:00 72 19 28 02/13/20 12:11 35 02/13/20 12:10 97.3 89 18 111/51 (71) 100 02/13/20 12:00 Mechanical Ventilator 02/13/20 12:00 79 02/13/20 10:40 90 12 35 Intake and Output 02/13/20 02/14/20 19:00 07:00 Intake Total 1015 ml 1505 ml Output Total 150 ml 780 ml Balance 865 ml 725 ml Intake Free Water 220 ml 150 ml IV Total 300 ml 750 ml Tube Feeding 495 ml 605 ml Output Urine Total 480 ml Stool Total 150 ml 300 ml # Voids 1 Objective General Appearance: bedridden, pale, chronically ill looking, older than her biological age ; vent dependent female ; on vent SIMV 450-30%-12, PE EP 5 Lines, tubes and drains: trach HEENT: normocephalic, atraumatic Neck: trach - Portex #7, secretions small amount, yellow color, thin consistency Respiratory/Chest: CTAB Cardiovascular/Chest: regular rate, regular rhythm Abdomen: non tender, soft, G tube , Genitourinary/Rectal: [place] Extremities: no edema, muscle atrophy Neurologic: abnormal gait, awake, poorly responsive Musculoskeletal: atrophy BLE Skin: multiple tattoos Laboratory Tests 02/13/20 12:56: POC Whole Blood Glucose [Pending] 02/13/20 18:46: POC Whole Blood Glucose 86 02/14/20 02:02: POC Whole Blood Glucose 86 02/14/20 02:55: White Blood Count 10.5, Red Blood Count 3.05L, Hemoglobin 8.7L, Hematocrit 26.9L , Mean Corpuscular Volume 88, Mean Corpuscular Hemoglobin 28.6, Mean Corpuscular Hemoglobin Concent 32.4, Red Cell Distribution Width 14.7, Platelet Count 722H, Mean Platelet Volume 3.9L, Neutrophils (%) (Auto) 57.7, Lymphocytes (%) (Auto) 23.0, Monocytes (%) (Auto) 15.0H, Eosinophils (%) (Auto) 3.0, Basophils (%) (Auto) 1.4 02/14/20 05:55: POC Whole Blood Glucose 113H Current Medications Medications (Trade) Dose Ordered Sig/Villa Route PRN Reason Start Time Stop Time Status Last Admin Dose Admin Acetaminophen (Tylenol) 650 mg Q4H PRN GT Temp >100.5 02/01/20 20:30 03/02/20 20:29 02/08/20 20:41 Ascorbic Acid (Vitamin C) 500 mg DAILY GT 01/28/20 09:30 02/27/20 09:29 02/14/20 08:38 Clonazepam (KlonoPIN) 1 mg EVERY 8 HOURS ORAL 02/08/20 22:00 02/15/20 21:59 02/14/20 05:57 Dextrose/Sodium Chloride 1,000 ml @ 75 mls/hr [id number] IV 01/29/20 13:00 02/27/20 12:59 02/14/20 09:57 Famotidine (Pepcid I.v.) 20 mg Q12HR IVP 01/29/20 21:00 02/28/20 20:59 02/14/20 08:38 Gabapentin (Neurontin) 900 mg TID GT 01/28/20 09:30 02/19/20 09:29 02/14/20 08:39 Haloperidol Lactate (Haldol) 5 mg Q6H PRN IM Agitation 01/28/20 09:30 02/15/20 09:29 Loperamide HCl (Imodium) 2 mg Q4H PRN GT Diarrhea 02/10/20 23:45 03/11/20 23:44 02/14/20 08:38 Midodrine (Pro-Amatine) 10 mg TID GT 02/07/20 18:00 04/21/20 17:59 02/14/20 08:38 Multivitamins (Multivitamins W/ Minerals 15ml Liquid) 15 ml DAILY GT 01/28/20 09:30 02/27/20 09:29 02/14/20 08:38 Pantoprazole (Protonix) 40 mg EVERY 12 HOURS IVP 01/31/20 09:30 03/01/20 09:29 02/14/20 08:38 Potassium Chloride (K-Dur) 40 meq TWICE A DAY ORAL 02/02/20 18:00 05/02/20 17:59 02/13/20 17:43 Sucralfate (Carafate) 1 gm FOUR TIMES A DAY ORAL 01/30/20 09:00 04/29/20 08:59 02/14/20 08:39 Thiamine HCl (Vitamin B1) 100 mg DAILY GT 01/28/20 09:30 02/27/20 09:29 02/14/20 08:38 Assessment/Plan Assessment/Plan ASSESSMENT VDRF/trach status Sepsis Possible pneumonia UTI recurrent GI bleeding severe C dif colitis Anemia secondary to GI bleeding Aspiration risk Dysphagia, feeding by G-tube Encephalopathy Acute kidney injury likely secondary to dehydration Recurrent bradycardia persistent Hypotension Electrolyte imbalance Severe protein calorie malnutrition Hx of hypertension History of CVA Seizure disorder with witnessed seizure episode 01/07 Psychiatric disorder Presumed scabies, s/p Rx Thrombocytopenia-transient- resolved PLAN OF CARE JULIANA off Dopamine gtt, BP better with Midodrine only on IVF, vent support, pulm toilet ABG stable on current settings on SIMV mode 450-30-12 PEEP5 , no signs of resp distress on these settings keep settings as is and titrate as needed CXR 01/27 no acute disease pulm toilet via HHN CT chest 01/28 - with tree-in-bud nodular opacities in the medial left base and lingula with left bronchial bubbly material suggesting infectious or inflammatory bronchiolitis, likely due to aspiration. Small amount of similar foci seen in the right posterior lower lobe. Mild bronchiectasis and reticulation in the lingula, medial left base, and superior left upper lobe could also be due to chronic infection. CXR 02/01 -Interval development of retrocardiac airspace opacities which could represent atelectasis versus developing consolidation. probably ATX , given no fevers, resolved leukocytosis, no resp distress on current settings CXR 02/04 Bilateral mostly interstitial opacities; suspect largely chronic although there may be an acute component at the left lung base. The latter does appear somewhat improved since the previous exam. CXR 02/09 -> no definite infiltrate pancx-per ID CXR 01/13- no acute findings KUB 01/13- no acute findings UA + yeast , 01/12 UCX +yeast, started on Fluconazole 01/14 as per ID -completed BCX 01/12 NGTD BCX 01/26 and 01/27 NGTD Vanco po was prior dc and switched to Dificid , also on Flagyl per GI -till 01/28 , both extended till , completed inflammatory markers : ESR-42, CRP- wnl WBC smear NGT C dif a/b 01/30 NGT less output from rectal tube UCX 01/27 + Klebs CR- started on Gent per ID recs given prior leukocytosis and fevers SCX 02/02 + Serratia,Pseudomonas abx as per ID recs , Gent completed 02/10 ( prior extended for 3 days given mild leuk and fever), leuk resolved no fever CXR 02/09 no significant findings, no definite infiltrate CT C/ A/P noted ( see results of CT chest above), CT A/P with findings most compatible with ileus and probable infectious or inflammatory enteritis or enterocolitis. off cefepime rapid COVID 19 NGT in ED aspiration precautions Venous Duplex BLE -negative, get SCD ( unable to give a/c given anemia) closely monitor hemodynamic status repeated Venous Duplex BLE NGT heme and GI follows s/p prior EGD 01/01 -> gastric ulcer across G tube site , no active bleeding s/p EGD 01/30 -> gastric ulceration without visible bleeding Protonix IV bid ( changed from Protonix gtt), Carafate GT feeding resumed as per GI , s/p blood tx 01/30 stool OB positive , another pending transfuse to keep Hgb > 7. HH at baseline trend LFT-> trended down, hep panel NGT hx of cirrhosis- per GI management monitor renal parameters, lytes, avoid nephrotoxic IVF BUN trending down, creat stable, likely prerenal due to dehydration replace e/lytes as per nephro recs , P and Mg replaced this am as per nephro monitor volumes seizure precautions, antiepileptic optimized as per neuro recs ammonia 49, fup with further neuro recs EEG - grossly abnormal; mild to mod encephalopathy, single ictal episode CT head no acute IC pathology BP management with current regimen SNF meds supportive care dietary recs s/p 12/31 Rx for presumed scabies with permethrin and Ivermectin, repeated Ivermectin 01/08 case discussed and evaluated by supervising physician Ivanna Mora NP Feb 14, 2020 10:08
--- NOTE | 2020-02-14 11:21 | Infectious Diseases Prog Note ---
Assessment/Plan 39yo F with: Severe Sepsis Fever, recurrent; SP Leukocytosis; recurrent; mild UTI -02/04 CXR: Bilateral mostly interstitial opacities; suspect largely chronic althoughthere may be an acute component at the left lung base. The latter does appear somewhat improved since the previous exam. -02/02 sp cx S. marcences (R ancef, CTX, mami; I Levo; S Genta, Ceftazidime, Cefepime, bactrim), GNR #2 -02/01 CXR: Interval development of retrocardiac airspace opacities which could represent atelectasis versus developing consolidation. u/a wbc 5-10, nit neg, leuk +2; -01/28 CXR: Subtle reticular nodular opacities in the left apex which may be related to scarring versus acute small airway disease/bronchitis CT c/abd/p wo: Study substantially limited due to lack of IV contrast. Findings most compatible with ileus and probable infectious or inflammatory enteritis or enterocolitis. Large low-attenuation pelvic fluid of uncertain significance, potentially reactive.Appendix not identified. Percutaneous gastrostomy tube adequately positioned in the stomach. Rectal tube. Urinary bladder wall thickening could be incidental, due to high outlet pressures, or could represent cystitis.Cholecystectomy. -01/27 u/a no pyuria, nit +, leuk +3; ucx >100k CRE K, pna (S Gentamycin), P . miriabilis, MDR P, fluorensces (I Gentamycin) CXR: no acute disease Bc xNTD -01/26 Bcx Neg -01/13 CXR: no acute disease -01/12 u/a wbc tnct, nit neg, latrell +3; ucx >100k C. tropicalis Bcx NTD Severe Cdiff colitis -01/30 Cdif toxin a/b neg -01/06 Cdif toxin + 01/27 KUB:Severely dilated small bowel loop in the central abdomen could reflect obstruction. Diffusely fluid distended colon. -01/13 KUB: no acute findings Recurrent GIB 01/06 u/aneg 12/30 BCx 1/2 +CONS, likely contaminant 12/30 UA neg, COVID rapid Ag neg 12/30 CXR 1. Density overlying the bilateral lung apices. May represent pleural thickening, multifocal airspace opacities, versus summation artifact. 01/01 BCx Neg 01/02 BCx Neg Acute blood loss anemia Possible pna on CXR, sp rx Seizure episode -01/10 CT head: Third and lateral ventriculomegaly. Associated enlargement of the extra axial CSF spaces indicates that this is probably due to central volume loss, but the possibility of hydrocephalus should also be considered. At the degree of volume loss is considerably out of proportion to patient's age. Periventricular deep white matter low-attenuation. Probably on the basis of microvascular ischemic change but given patient's age the possibility of demyelinating disease should be considered as well. 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 [facility] will continue to follow. Subjective Allergies: Coded Allergies: CARBAMAZEPINE (Verified Allergy, Unknown, 12/31/19) LORAZEPAM (Verified Allergy, Unknown, 12/31/19) Afebrile No Leukocytosis Satting well on Vent Objective Last 24 Hour Vital Signs Date Time Temp Pulse Resp B/P (MAP) Pulse Ox O2 Delivery O2 Flow Rate FiO2 02/14/20 08:00 Mechanical Ventilator 02/14/20 08:00 35 02/14/20 08:00 97.9 72 22 104/58 (73) 100 02/14/20 04:00 94 02/14/20 04:00 98.1 84 23 115/63 (80) 100 02/14/20 04:00 35 02/14/20 04:00 Mechanical Ventilator 02/14/20 03:30 80 22 28 02/14/20 00:00 35 02/14/20 00:00 Mechanical Ventilator 02/14/20 00:00 98.0 77 23 114/67 (83) 100 02/14/20 00:00 89 02/13/20 22:48 89 20 28 02/13/20 20:00 60 02/13/20 20:00 98.1 59 17 105/47 (66) 100 02/13/20 20:00 Mechanical Ventilator 02/13/20 19:28 65 19 28 02/13/20 16:00 35 02/13/20 16:00 Mechanical Ventilator 02/13/20 16:00 Mechanical Ventilator 02/13/20 16:00 57 02/13/20 15:31 98.0 58 17 99/50 (66) 100 02/13/20 15:00 72 19 28 02/13/20 12:11 35 02/13/20 12:10 97.3 89 18 111/51 (71) 100 02/13/20 12:00 Mechanical Ventilator 02/13/20 12:00 79 Height (Feet): 5 Height (Inches): 1.00 Weight (Pounds): 82 GEN: NAD, On Vent 35% HEENT: NCAT, MMM, EOMI Pulm: Equal chest rise and fall B/L, NO accessory muscle use ABD: Soft, ND Laboratory Tests Test 02/13/20 12:56 02/13/20 18:46 02/14/20 02:02 02/14/20 02:55 POC Whole Blood Glucose Pending 86 MG/DL (74-106) 86 MG/DL (74-106) White Blood Count 10.5 K/UL (4.8-10.8) Red Blood Count 3.05 M/UL (4.20-5.40) L Hemoglobin 8.7 G/DL (12.0-16.0) L Hematocrit 26.9 % (37.0-47.0) L Mean Corpuscular Volume 88 FL (80-99) Mean Corpuscular Hemoglobin 28.6 PG (27.0-31.0) Mean Corpuscular Hemoglobin Concent 32.4 G/DL (32.0-36.0) Red Cell Distribution Width 14.7 % (11.6-14.8) Platelet Count 722 K/UL (150-450) H Mean Platelet Volume 3.9 FL (6.5-10.1) L Neutrophils (%) (Auto) 57.7 % (45.0-75.0) Lymphocytes (%) (Auto) 23.0 % (20.0-45.0) Monocytes (%) (Auto) 15.0 % (1.0-10.0) H Eosinophils (%) (Auto) 3.0 % (0.0-3.0) Basophils (%) (Auto) 1.4 % (0.0-2.0) Test 02/14/20 05:55 POC Whole Blood Glucose 113 MG/DL (74-106) H Current Medications Medications (Trade) Dose Ordered Sig/Villa Route PRN Reason Start Time Stop Time Status Last Admin Dose Admin Acetaminophen (Tylenol) 650 mg Q4H PRN GT Temp >100.5 02/01/20 20:30 03/02/20 20:29 02/08/20 20:41 Ascorbic Acid (Vitamin C) 500 mg DAILY GT 01/28/20 09:30 02/27/20 09:29 02/14/20 08:38 Clonazepam (KlonoPIN) 1 mg EVERY 8 HOURS ORAL 02/08/20 22:00 02/15/20 21:59 02/14/20 05:57 Dextrose/Sodium Chloride 1,000 ml @ 75 mls/hr [id number] IV 01/29/20 13:00 02/27/20 12:59 02/14/20 09:57 Famotidine (Pepcid I.v.) 20 mg Q12HR IVP 01/29/20 21:00 02/28/20 20:59 02/14/20 08:38 Gabapentin (Neurontin) 900 mg TID GT 01/28/20 09:30 02/19/20 09:29 02/14/20 08:39 Haloperidol Lactate (Haldol) 5 mg Q6H PRN IM Agitation 01/28/20 09:30 02/15/20 09:29 Loperamide HCl (Imodium) 2 mg Q4H PRN GT Diarrhea 02/10/20 23:45 03/11/20 23:44 02/14/20 08:38 Midodrine (Pro-Amatine) 10 mg TID GT 02/07/20 18:00 04/21/20 17:59 02/14/20 08:38 Multivitamins (Multivitamins W/ Minerals 15ml Liquid) 15 ml DAILY GT 01/28/20 09:30 02/27/20 09:29 02/14/20 08:38 Pantoprazole (Protonix) 40 mg EVERY 12 HOURS IVP 01/31/20 09:30 03/01/20 09:29 02/14/20 08:38 Potassium Chloride (K-Dur) 40 meq TWICE A DAY ORAL 02/02/20 18:00 05/02/20 17:59 02/13/20 17:43 Sucralfate (Carafate) 1 gm FOUR TIMES A DAY ORAL 01/30/20 09:00 04/29/20 08:59 02/14/20 08:39 Thiamine HCl (Vitamin B1) 100 mg DAILY GT 01/28/20 09:30 02/27/20 09:29 02/14/20 08:38 Jesus Hanson MD Feb 14, 2020 11:21
[2020-02-14 12:00] VITALS: BP 116/65
--- NOTE | 2020-02-14 12:43 | Surgery Progress Note ---
Surgery Progress Note Subjective Symptoms: improved, tolerating diet, voiding well, passing flatus, BM Objective Last 24 Hour Vital Signs Date Time Temp Pulse Resp B/P (MAP) Pulse Ox O2 Delivery O2 Flow Rate FiO2 02/14/20 12:00 Mechanical Ventilator 02/14/20 12:00 35 02/14/20 08:00 79 02/14/20 08:00 Mechanical Ventilator 02/14/20 08:00 35 02/14/20 08:00 97.9 72 22 104/58 (73) 100 02/14/20 04:00 94 02/14/20 04:00 98.1 84 23 115/63 (80) 100 02/14/20 04:00 35 02/14/20 04:00 Mechanical Ventilator 02/14/20 03:30 80 22 28 02/14/20 00:00 35 02/14/20 00:00 Mechanical Ventilator 02/14/20 00:00 98.0 77 23 114/67 (83) 100 02/14/20 00:00 89 02/13/20 22:48 89 20 28 02/13/20 20:00 60 02/13/20 20:00 98.1 59 17 105/47 (66) 100 02/13/20 20:00 Mechanical Ventilator 02/13/20 19:28 65 19 28 02/13/20 16:00 35 02/13/20 16:00 Mechanical Ventilator 02/13/20 16:00 Mechanical Ventilator 02/13/20 16:00 57 02/13/20 15:31 98.0 58 17 99/50 (66) 100 02/13/20 15:00 72 19 28 I&O Intake and Output 02/13/20 02/14/20 19:00 07:00 Intake Total 1015 ml 1505 ml Output Total 150 ml 780 ml Balance 865 ml 725 ml Intake Free Water 220 ml 150 ml IV Total 300 ml 750 ml Tube Feeding 495 ml 605 ml Output Urine Total 480 ml Stool Total 150 ml 300 ml # Voids 1 Dressing: saturated Cardiovascular: RSR Respiratory: decreased breath sounds Abdomen: soft, non-tender, present bowel sounds Extremities: no tenderness, no cyanosis Laboratory Tests Test 02/13/20 12:56 02/13/20 18:46 02/14/20 02:02 02/14/20 02:55 POC Whole Blood Glucose Pending 86 MG/DL (74-106) 86 MG/DL (74-106) White Blood Count 10.5 K/UL (4.8-10.8) Red Blood Count 3.05 M/UL (4.20-5.40) L Hemoglobin 8.7 G/DL (12.0-16.0) L Hematocrit 26.9 % (37.0-47.0) L Mean Corpuscular Volume 88 FL (80-99) Mean Corpuscular Hemoglobin 28.6 PG (27.0-31.0) Mean Corpuscular Hemoglobin Concent 32.4 G/DL (32.0-36.0) Red Cell Distribution Width 14.7 % (11.6-14.8) Platelet Count 722 K/UL (150-450) H Mean Platelet Volume 3.9 FL (6.5-10.1) L Neutrophils (%) (Auto) 57.7 % (45.0-75.0) Lymphocytes (%) (Auto) 23.0 % (20.0-45.0) Monocytes (%) (Auto) 15.0 % (1.0-10.0) H Eosinophils (%) (Auto) 3.0 % (0.0-3.0) Basophils (%) (Auto) 1.4 % (0.0-2.0) Test 02/14/20 05:55 02/14/20 12:36 POC Whole Blood Glucose 113 MG/DL (74-106) H 85 MG/DL (74-106) Plan Problems: (1) Pneumonia (2) Sepsis Assessment & Plan: leukocytosis anemia lactic acidosis agree with GI recommend EGD planned for 12/31 hold feeding for now trend h/h monitor for bleeding no acute hemorrhage will be available in event needs exploration for hemostasis prbc as per heme thank you will follow with recs cont abx worsening wbc wbc trending down comfortable appearing no n/v hypotensive in ICU again worse pending CT results - noted PICC ordered improving wbc improved labs and micro trending labs improved wbc resolved prognosis guarded Pt presented on admission in emaciated state. Pt has tracheostomy and GT. NO skin concerns noted to skin under collar of trach. NO erythema or evidence of skin erosion at GT site. Pt noted to have scaly pimple-like rash with webbing noted to R and L axillae, undersides of both breasts, Bilat groin and lower back. Tracking and webbing noted to hands and feet. Pt restless and scratching at skin. Non-Blanching erythema without induration or fluctuance noted to R and L hips and trochanteric areas.Non-blanching erythema noted along spine. Non-Blanching erythema without induration noted to Sacrum. Non-Blanching erythema noted to R and L Malleoli and both heels. Tx.Plan: Please apply Cavilon Skin Barrier to each bony Prominences at risks for Skin Breakdown. Cover each area with Optifoam drsgs. Change every 7 days and prn. Apply Moisture Barrier Paste to Sacrum. Cover with Optifoam drsg. Change every 3 days and prn. Reposition at least every 2hours or as tolerated. Off-load heels with pillow. APM/EMELI Mattress overlay. improving cont current care plan Incontinent social dermatitis noted around the bilateral groin creases and vagi nal area. Site clean. Monitor for incontinence. There is marked enlargement of the third and lateral ventricles and extra axial CSF spaces, in particular the former. There is considerable periventricular deep white matter low-attenuation. Otherwise normal mobley-white differentiation. No acute hemorrhage or edema. No mass effect nor midline shift. Visualized orbits and sinuses are unremarkable. The calvarium is intact Impression: Third and lateral ventriculomegaly. Associated enlargement of the extra axial CSF spaces indicates that this is probably due to central volume loss, but the possibility of hydrocephalus should also be considered. At the degree of volume loss is considerably out of proportion to patient's age. Correlate with clinical history Periventricular deep white matter low-attenuation. Probably on the basis of microvascular ischemic change but given patient's age the possibility of demyelinating disease should be considered as well. Negative for acute intracranial bleed or mass effect ABDOMEN: Liver: Unremarkable. Gallbladder and bile ducts: Cholecystectomy. No ductal dilation. Pancreas: Unremarkable. No ductal dilation. Spleen: Unremarkable. No splenomegaly. Adrenals: Unremarkable. No mass. Kidneys and ureters: Unremarkable. No obstructing stones. No hydronephrosis. Stomach and bowel: Operative bowel findings. Diffuse small bowel wall thickening with areas of distention and fluid-filled colonic loops. No clear focal transition point to suggest small bowel obstruction. PELVIS: Appendix: Appendix not identified. Bladder: Urinary bladder wall thickening could be incidental, due to high outlet pressures, or could represent cystitis. No stones. Reproductive: Unremarkable as visualized. ABDOMEN and PELVIS: Intraperitoneal space: Large low-attenuation pelvic fluid of uncertain significance, potentially reactive. No free air. Bones/joints: No acute fracture. No dislocation. Soft tissues: Bilateral buttock injection granulomas. Vasculature: Unremarkable. No abdominal aortic aneurysm. Lymph nodes: Unremarkable. No enlarged lymph nodes. Tubes, lines and devices: Percutaneous gastrostomy tube adequately positioned in the stomach. Rectal tube. Other findings: No perforation seen. IMPRESSION: 1. Study substantially limited due to lack of IV contrast. 2. Findings most compatible with ileus and probable infectious or inflammatory enteritis or enterocolitis. 3. Large low-attenuation pelvic fluid of uncertain significance, potentially reactive. 4. Appendix not identified. 5. Percutaneous gastrostomy tube adequately positioned in the stomach. Rectal tube. 6. Urinary bladder wall thickening could be incidental, due to high outlet pressures, or could represent cystitis. 7. Cholecystectomy. (3) GI bleed (4) G tube feedings Assessment & Plan: DAILY ESTIMATED NEEDS: Needs based on Underweight, critical care 37.3kg 30-40 kcals/kg 7675-9367 total kcals 1.25-2 g protein/kg 47-75 g total protein 25-35 mL/kg 933-1306 total fluid mLs NUTRITION DIAGNOSIS: Increased kcal and pro needs r/t underweight status as evidenced by BMI 14.1, pt is 68% of ideal body weight w/ generalized severe wasting, trach and peg dep. CURRENT TF:Vital AF 1.2 @55 x20 hrs ENTERAL NUTRITION RECOMMENDATIONS: Vital AF 1.2 @ 55ml/hr x20 hrs to provide 1100ml 1320kcal 83g prot, 892ml free water - Rec to continue elemental TF formula while stool C-diff positive, +LBM - HOLD 1HR BEFORE AND AFTER SYNTHROID MEDS - Flush per . HOB over 30 degrees ADDITIONAL RECOMMENDATIONS: 1) Per SNF: 5'4" and 81# Maintain calibrated bed scale wts w/ added P200 mattress 2) Lytes daily madhav w/ loose stools, replete as needed 3) Skin integrity: Continue BRIAN VIA GT BID + Vit C 4) Accuchecks for Hypoglycemia 5) Add probiotics for stool C-diff+ . George Woods Feb 14, 2020 12:43
--- NOTE | 2020-02-14 14:33 | General Progress Note ---
Subjective Constitutional: Reports: no symptoms HEENT: Reports: no symptoms Cardiovascular: Reports: no symptoms Respiratory: Reports: no symptoms Gastrointestinal/Abdominal: Reports: no symptoms Genitourinary: Reports: no symptoms Neurologic/Psychiatric: Reports: no symptoms Hematologic/Lymphatic: Reports: no symptoms Allergies: Coded Allergies: CARBAMAZEPINE (Verified Allergy, Unknown, 12/31/19) LORAZEPAM (Verified Allergy, Unknown, 12/31/19) Objective Last 24 Hour Vital Signs Date Time Temp Pulse Resp B/P (MAP) Pulse Ox O2 Delivery O2 Flow Rate FiO2 02/14/20 12:00 97.9 64 18 116/65 (82) 100 02/14/20 12:00 Mechanical Ventilator 02/14/20 12:00 35 02/14/20 08:00 79 02/14/20 08:00 Mechanical Ventilator 02/14/20 08:00 35 02/14/20 08:00 97.9 72 22 104/58 (73) 100 02/14/20 04:00 94 02/14/20 04:00 98.1 84 23 115/63 (80) 100 02/14/20 04:00 35 02/14/20 04:00 Mechanical Ventilator 02/14/20 03:30 80 22 28 02/14/20 00:00 35 02/14/20 00:00 Mechanical Ventilator 02/14/20 00:00 98.0 77 23 114/67 (83) 100 02/14/20 00:00 89 02/13/20 22:48 89 20 28 02/13/20 20:00 60 02/13/20 20:00 98.1 59 17 105/47 (66) 100 02/13/20 20:00 Mechanical Ventilator 02/13/20 19:28 65 19 28 02/13/20 16:00 35 02/13/20 16:00 Mechanical Ventilator 02/13/20 16:00 Mechanical Ventilator 02/13/20 16:00 57 02/13/20 15:31 98.0 58 17 99/50 (66) 100 02/13/20 15:00 72 19 28 Intake and Output 02/13/20 02/14/20 18:59 06:59 Intake Total 1090 ml 1430 ml Output Total 150 ml 780 ml Balance 940 ml 650 ml Intake Free Water 220 ml 150 ml IV Total 375 ml 675 ml Tube Feeding 495 ml 605 ml Output Urine Total 480 ml Stool Total 150 ml 300 ml # Voids 1 Laboratory Tests 02/13/20 18:46: POC Whole Blood Glucose 86 02/14/20 02:02: POC Whole Blood Glucose 86 02/14/20 02:55: White Blood Count 10.5, Red Blood Count 3.05L, Hemoglobin 8.7L, Hematocrit 26.9L , Mean Corpuscular Volume 88, Mean Corpuscular Hemoglobin 28.6, Mean Corpuscular Hemoglobin Concent 32.4, Red Cell Distribution Width 14.7, Platelet Count 722H, Mean Platelet Volume 3.9L, Neutrophils (%) (Auto) 57.7, Lymphocytes (%) (Auto) 23.0, Monocytes (%) (Auto) 15.0H, Eosinophils (%) (Auto) 3.0, Basophils (%) (Auto) 1.4 02/14/20 05:55: POC Whole Blood Glucose 113H 02/14/20 12:36: POC Whole Blood Glucose 85 Height (Feet): 5 Height (Inches): 1.00 Weight (Pounds): 82 General Appearance: WD/WN, no apparent distress, alert EENT: normal ENT inspection Neck: supple Cardiovascular: regular rhythm, no gallop/murmur, no JVD, bradycardia Respiratory/Chest: lungs clear, normal breath sounds, no accessory muscle use Abdomen: normal bowel sounds, non tender, soft, no organomegaly, no mass Extremities: non-tender Neurologic: alert, aphasia, other - Indifferent to the examination Skin: warm/dry Assessment/Plan Problem List: (1) Pneumonia ICD Codes: J18.9 - Pneumonia, unspecified organism SNOMED: 707987567 (2) Sepsis ICD Codes: A41.9 - Sepsis, unspecified organism SNOMED: 95976240 (3) GI bleed ICD Codes: K92.2 - Gastrointestinal hemorrhage, unspecified SNOMED: 48532823 (4) Anemia ICD Codes: D64.9 - Anemia, unspecified SNOMED: 556916946 (5) Seizure disorder ICD Codes: G40.909 - Epilepsy, unspecified, not intractable, without status epilepticus SNOMED: 989335748 (6) Malnutrition ICD Codes: E46 - Unspecified protein-calorie malnutrition SNOMED: 09192649 (7) Thrombocytopenia ICD Codes: D69.6 - Thrombocytopenia, unspecified SNOMED: 270377301 Status: stable, other - Patient is now hypotensive before over 47 she will receive 500 cc of normal saline bolus to be repeated blood pressure remained below 90 further management will be decided following the boluses treatment repeat laboratory tests will be done in a.m. GLENNY MCKAY MD Status Narrative Patient is awake alert febrile brief eye contact short attention span and indifferent to the examination she does not appear to be in any respiratory distress and she tolerates without side effect the current antibiotic therapy will continue to follow patient condition and wait for clearance of the infectious disease specialist so the patient can be discharged safely Repeat laboratory tests will be done in a.m. as well as urine analysis and chest x-ray GLENNY MCKAY MD Assessment/Plan: Glenny Guadarrama MD Feb 14, 2020 14:32
--- NOTE | 2020-02-14 14:55 | General Progress Note ---
Subjective Allergies: Coded Allergies: CARBAMAZEPINE (Verified Allergy, Unknown, 12/31/19) LORAZEPAM (Verified Allergy, Unknown, 12/31/19) Objective Last 24 Hour Vital Signs Date Time Temp Pulse Resp B/P (MAP) Pulse Ox O2 Delivery O2 Flow Rate FiO2 02/14/20 12:00 97.9 64 18 116/65 (82) 100 02/14/20 12:00 Mechanical Ventilator 02/14/20 12:00 64 02/14/20 12:00 35 02/14/20 08:00 79 02/14/20 08:00 Mechanical Ventilator 02/14/20 08:00 35 02/14/20 08:00 97.9 72 22 104/58 (73) 100 02/14/20 04:00 94 02/14/20 04:00 98.1 84 23 115/63 (80) 100 02/14/20 04:00 35 02/14/20 04:00 Mechanical Ventilator 02/14/20 03:30 80 22 28 02/14/20 00:00 35 02/14/20 00:00 Mechanical Ventilator 02/14/20 00:00 98.0 77 23 114/67 (83) 100 02/14/20 00:00 89 02/13/20 22:48 89 20 28 02/13/20 20:00 60 02/13/20 20:00 98.1 59 17 105/47 (66) 100 02/13/20 20:00 Mechanical Ventilator 02/13/20 19:28 65 19 28 02/13/20 16:00 35 02/13/20 16:00 Mechanical Ventilator 02/13/20 16:00 Mechanical Ventilator 02/13/20 16:00 57 02/13/20 15:31 98.0 58 17 99/50 (66) 100 02/13/20 15:00 72 19 28 Intake and Output 02/13/20 02/14/20 18:59 06:59 Intake Total 1090 ml 1430 ml Output Total 150 ml 780 ml Balance 940 ml 650 ml Intake Free Water 220 ml 150 ml IV Total 375 ml 675 ml Tube Feeding 495 ml 605 ml Output Urine Total 480 ml Stool Total 150 ml 300 ml # Voids 1 Laboratory Tests 02/13/20 18:46: POC Whole Blood Glucose 86 02/14/20 02:02: POC Whole Blood Glucose 86 02/14/20 02:55: White Blood Count 10.5, Red Blood Count 3.05L, Hemoglobin 8.7L, Hematocrit 26.9L , Mean Corpuscular Volume 88, Mean Corpuscular Hemoglobin 28.6, Mean Corpuscular Hemoglobin Concent 32.4, Red Cell Distribution Width 14.7, Platelet Count 722H, Mean Platelet Volume 3.9L, Neutrophils (%) (Auto) 57.7, Lymphocytes (%) (Auto) 23.0, Monocytes (%) (Auto) 15.0H, Eosinophils (%) (Auto) 3.0, Basophils (%) (Auto) 1.4 02/14/20 05:55: POC Whole Blood Glucose 113H 02/14/20 12:36: POC Whole Blood Glucose 85 Height (Feet): 5 Height (Inches): 1.00 Weight (Pounds): 82 Assessment/Plan Problem List: (1) Pneumonia ICD Codes: J18.9 - Pneumonia, unspecified organism SNOMED: 341849269 (2) Sepsis ICD Codes: A41.9 - Sepsis, unspecified organism SNOMED: 71284768 (3) GI bleed ICD Codes: K92.2 - Gastrointestinal hemorrhage, unspecified SNOMED: 67593247 (4) Anemia ICD Codes: D64.9 - Anemia, unspecified SNOMED: 202390473 (5) Seizure disorder ICD Codes: G40.909 - Epilepsy, unspecified, not intractable, without status epilepticus SNOMED: 575582129 (6) Malnutrition ICD Codes: E46 - Unspecified protein-calorie malnutrition SNOMED: 79770071 (7) Thrombocytopenia ICD Codes: D69.6 - Thrombocytopenia, unspecified SNOMED: 186380046 Status: stable, other - Patient is now hypotensive before over 47 she will receive 500 cc of normal saline bolus to be repeated blood pressure remained below 90 further management will be decided following the boluses treatment repeat laboratory tests will be done in a.m. GLENNY MCKAY MD Status Narrative This is an addendum to the progress note just dictated patient was found a place to be transferred to provide into problem will be resolved one half persistent diarrhea to her agitation In regard to the diarrhea patient was C. difficile which is now C. difficile negative which indicates that the patient have a sporadic diarrhea she has been Imodium 2 mg every 6 hours as needed with insufficient results therefore Imodium will be DC'd patient will be placed on long-acting histamine half milligram every 6 hours.prn for the next 2 days In regard to patient agitation patient currently is because of this IV lines. The midline will be removed and a sitter will be accompanied the patient to protect the patient during during the completion of the antibiotic and the resolution of the diarrhea GLENNY MCKAY MD Assessment/Plan: Glenny Guadarrama MD Feb 14, 2020 14:55
[2020-02-14] MEDS: Lomotil 2.5mg tab ORAL SCH ×2 (15:36→23:41)
[2020-02-14 16:00] VITALS: BP 109/52
--- NOTE | 2020-02-14 16:26 | Nephrology Progress Note ---
Assessment/Plan Problem List: (1) RICHARD (acute kidney injury) (2) Dehydration (3) Anemia (4) GI bleed (5) Malnutrition (6) Seizure disorder (7) Electrolyte imbalance Assessment Renal failure, in the form of prerenal azotemia, most likely secondary to GI bleed GI bleed, leading to severe anemia Sepsis, pneumonia Chronic tracheostomy, ventilator dependent History of CVA History of seizure disorder History of psychiatric disorder Severe malnutrition Electrolyte abnormalities Plan February 13: Status quo. Stable from renal standpoint of view. February 12: Stable from renal standpoint of view. Remains full code on ventilator. Continue per PMD. February 11: Today's labs reviewed. Full code. On ventilator. Abnormal electrolytes addressed. February 10: No can panel done today. Full code. On ventilator. Will order lab tomorrow. February 09: No chemistry panel done today. Remains full code. Remains on ventilator. Continue per PMD. February 08: Labs reviewed. Electrolyte abnormalities addressed. Patient full code. Continue per current management. February 07: No chemistry panel done today. Remains stable from renal standpoint of view. Patient is full code. Order lab tomorrow. February 06: No chemistry panel drawn today. Clinically remains stable from renal standpoint of view. Patient is full code. February 05: Phosphorus and magnesium supplement given. Stable from renal standpoint of view. Remains full code February 04: No chemistry panel done today. Remains stable from renal standpoint of view. Continue to monitor renal parameters. February 03: Labs reviewed. Renal parameters stable. Continue her consultants. February 02: Lab reviewed. Low phosphorus low magnesium corrections ordered. Continue to monitor electrolytes and renal parameters. February 01: Lab reviewed. Low phosphorus and low magnesium replaced. Low potassium replaced. Continue to monitor electrolytes. Continue per consultants. January 31: Lab reviewed. Hemoglobin higher. Renal parameters stable. Potassium and phosphorus supplement given. January 30: Labs reviewed. Low mag low phosphorus and low potassium replaced. White blood cells 16,000 today. Remains full code. Continue to monitor hemoglobin and hematocrit and electrolytes. January 29: Labs reviewed. Magnesium, potassium, phosphorus supplement given. White blood cells down to 22,000. Remains full code. Continue per consultants. RN reports rectal bleed. Hemoglobin drifting down. Defer management to chemical instrumentation officer who is already on the case. January 28: Status quo. Electrolyte abnormalities noted. Mag Phos and potassium supplement IV given. Renal parameters stable. Continue per consultants. Leukocytosis persists. January 27: Significant rise in white blood cell counts. Hypotensive. Now in ICU. Will give albumin bolus. Continue to monitor renal parameters. Continue per ID advice. January 26: Continue to monitor renal parameters. Patient remains on ventil ator. Patient is full code. Continue per consultants. January 25: Status quo. Labs reviewed. Continue per consultants. January 24: Status unchanged. Labs reviewed. Remains stable from renal standpoint of view. January 23: Back in [facility]. Stable from renal standpoint of view. Continue per consultants. January 22: Patient in ICU now. Vital signs and heart rate and blood pressure appears to be stable. Patient had an episode of bradycardia but it was resolved. TSH level today is very low will cut down on Synthroid dose. January 21: Today's labs are reviewed. Stable renal parameters. Continue per consultants. January 20: Labs reviewed. Renal parameters stable. January 19: Labs reviewed. Stable from renal standpoint. January 18: No labs done today. Continue per consultants. Medications reviewed. January 17: Late note entry due to system problem at the [facility] today.Chemistry panel reviewed. Stable from renal standpoint of view. Continue per current management. January 16: No can panel today. Check lab tomorrow. Remains stable from renal standpoint of view. January 15: Lab reviewed. Renal parameters stable. January 14: Lab reviewed. Renal parameters stable. January 13: Labs reviewed. Stable from renal standpoint of view. January 12: Labs reviewed. Stable from renal standpoint of view January 11: No labs drawn today stable from renal standpoint of view January 10: Labs reviewed. Potassium supplement given. Continue per consultants. January 09: Lab reviewed. Potassium supplement given. IV fluid discontinued. January 08: Lab reviewed. Renal parameters stable. Continue per consultants. January 07: Lab reviewed. Renal parameters stable. Continue per consultants. January 06: Lab reviewed. Stable from renal standpoint of view. January 05: Labs reviewed. Stable from renal standpoint of view. Continue per consultants. January 04: No labs drawn today. Will check labs tomorrow. Continue per consultants. January 03: Lab reviewed. Renal parameters stable. IV fluid discontinued. High LFTs declining. Continue same. January 02: Lab reviewed. Renal parameters stable. Continue per PMD and consultants. LFTs remain elevated. Continue to monitor. Continue slow hydration Discontinue blood pressure medications as her blood pressure is low Discontinue diuretics Monitor renal parameters Transfusion as needed GI evaluation Correct electrolyte abnormalities Check B12 level, folate, and thyroid function tests: Results noted Subjective ROS Limited/Unobtainable: Yes Objective Objective Last 24 Hour Vital Signs Date Time Temp Pulse Resp B/P (MAP) Pulse Ox O2 Delivery O2 Flow Rate FiO2 02/14/20 16:00 Mechanical Ventilator 02/14/20 16:00 35 02/14/20 12:00 97.9 64 18 116/65 (82) 100 02/14/20 12:00 Mechanical Ventilator 02/14/20 12:00 64 02/14/20 12:00 35 02/14/20 08:00 79 02/14/20 08:00 Mechanical Ventilator 02/14/20 08:00 35 02/14/20 08:00 97.9 72 22 104/58 (73) 100 02/14/20 04:00 94 02/14/20 04:00 98.1 84 23 115/63 (80) 100 02/14/20 04:00 35 02/14/20 04:00 Mechanical Ventilator 02/14/20 03:30 80 22 28 02/14/20 00:00 35 02/14/20 00:00 Mechanical Ventilator 02/14/20 00:00 98.0 77 23 114/67 (83) 100 02/14/20 00:00 89 02/13/20 22:48 89 20 28 02/13/20 20:00 60 02/13/20 20:00 98.1 59 17 105/47 (66) 100 02/13/20 20:00 Mechanical Ventilator 02/13/20 19:28 65 19 28 Intake and Output 02/13/20 02/14/20 18:59 06:59 Intake Total 1090 ml 1430 ml Output Total 150 ml 780 ml Balance 940 ml 650 ml Intake Free Water 220 ml 150 ml IV Total 375 ml 675 ml Tube Feeding 495 ml 605 ml Output Urine Total 480 ml Stool Total 150 ml 300 ml # Voids 1 Laboratory Tests 02/13/20 18:46: POC Whole Blood Glucose 86 02/14/20 02:02: POC Whole Blood Glucose 86 02/14/20 02:55: White Blood Count 10.5, Red Blood Count 3.05L, Hemoglobin 8.7L, Hematocrit 26.9L , Mean Corpuscular Volume 88, Mean Corpuscular Hemoglobin 28.6, Mean Corpuscular Hemoglobin Concent 32.4, Red Cell Distribution Width 14.7, Platelet Count 722H, Mean Platelet Volume 3.9L, Neutrophils (%) (Auto) 57.7, Lymphocytes (%) (Auto) 23.0, Monocytes (%) (Auto) 15.0H, Eosinophils (%) (Auto) 3.0, Basophils (%) (Auto) 1.4 02/14/20 05:55: POC Whole Blood Glucose 113H 02/14/20 12:36: POC Whole Blood Glucose 85 Height (Feet): 5 Height (Inches): 1.00 Weight (Pounds): 82 General Appearance: no apparent distress EENT: other - Trach to vent Cardiovascular: normal rate Respiratory/Chest: decreased breath sounds Abdomen: soft Objective No change Chivo Holloway MD Feb 14, 2020 16:26
[2020-02-14 20:00] VITALS: BP 92/68
[2020-02-14] MEDS: Acetaminophen 650mg/20.3ml GT PRN (20:50)
[2020-02-15] VITALS: BP 120/63
[2020-02-15 04:00] VITALS: BP 93/62
[2020-02-15 04:58] LABS: BASOPHILS % (AUTO) 1.5 % (0.0-2.0); EOSINOPHILS % (AUTO) 2.6 % (0.0-3.0); HEMATOCRIT 26.1 % (37.0-47.0); HEMOGLOBIN 8.6 G/DL (12.0-16.0); LYMPHOCYTES % (AUTO) 21.7 % (20.0-45.0); MEAN CORPUSCULAR VOLUME 88 FL (80-99); MONOCYTES % (AUTO) 15.8 % (1.0-10.0); NEUTROPHILS % (AUTO) 58.4 % (45.0-75.0); PLATELET COUNT 697 K/UL (150-450); RED BLOOD COUNT 2.98 M/UL (4.20-5.40); RED CELL DISTRIBUTION WIDTH 14.6 % (11.6-14.8); WHITE BLOOD COUNT 10.6 K/UL (4.8-10.8)
[2020-02-15] MEDS: Lomotil 2.5mg tab ORAL SCH ×3 (06:04→18:25)
--- NOTE | 2020-02-15 06:44 | Hematology/Onc Progress Note ---
Assessment/Plan Assessment/Plan # Anemia rule out underlying gi bleed --> Dr. Carrillo has been consulted-->endosco gastric ulceration --> trend hgb 7-->7.4-->7.9-->8.1->9.6-->8.5->9.1-->10-->11-->10.3-->10.4-->11->9.8-->7.4 ->9-->10.5-->9.1-->8.7-->8.4-->8.6-->8.7 --> anemia panel ordered-->reviewed --> prn transfusion --> protonix started # Leukocytosis is likely related to pna on imaging --> abx has been started --> if wbc worsens, consider abx vanc/zosyn--> ceftriaxone-->v anc->fluc/flagyl/vanc-->flagyl/fidoxomicin->vanc/cefepime/flagyl-->gentamcinflag yl --> smear is noted --> wbc 25-->15-->14-->16->7.6-->12-->20->13->11->14-->33-->16->8->11-->12->10.5 --> pressors prn # Thrombocytopenia med related v labs error --> plt trend 167-->61-->227->373->457 --> meds have been reviewed --> no hep or lovenox # Sepsis --> on abx for pna --> pressors as needed --> fluids as per pcp for hypotension # Pneumonia --> pulm, Dr. 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 nursing education consultant care, will follow Subjective Constitutional: Denies: no symptoms, chills, fever, malaise, weakness, other Cardiovascular: Denies: no symptoms, chest pain, edema, irregular heart rate, lightheadedness, palpitations, syncope, other Gastrointestinal/Abdominal: Denies: no symptoms, abdomen distended, abdominal pain, black stools, tarry stools, blood in stool, constipated, diarrhea, difficulty swallowing, nausea, poor appetite, poor fluid intake, rectal bleed ing, vomiting, other Genitourinary: Denies: no symptoms, burning, discharge, frequency, flank pain, hematuria, incontinence, pain, urgency, other Neurologic/Psychiatric: Denies: no symptoms, anxiety, depressed, emotional problems, headache, numbness, paresthesia, pre-existing deficit, seizure, tingling, tremors, weakness, other Endocrine: Denies: no symptoms, excessive sweating, flushing, intolerance to cold, intolerance to heat, increased hunger, increased thirst, increased urine, unexplained weight gain, unexplained weight loss, other Hematologic/Lymphatic: Denies: no symptoms, anemia, easy bleeding, easy bruising, adenopathy, other Allergies: Coded Allergies: CARBAMAZEPINE (Verified Allergy, Unknown, 12/31/19) LORAZEPAM (Verified Allergy, Unknown, 12/31/19) Subjective 01/01 altered, trach, no bleedin wbc improved on abx, seen by gi 01/02 egd study noted, also with plts 61k, have vitaly Armendariz Rn, will recheck cbc 01/03 remains agitated, vitaly rn, no bleeding, cbc noted as well as id recs 01/04 on vent, with melena overnight, no bleeding, vitaly longoria, labs reviewed 01/06 on vent, remains agitated, no bleeding, vitaly rn, smear is noted 01/07 on vent, restless, asymptomatic, noncooperative 01/[address] John obtained, reviewed, meds adjusted, eeg pending 01/09 labs noted, no bleeding, ativan has been discontinued, meds reviewed 01/10 trach to vent, agitated, with wrist restraints, no major changes, no bleeding 01/11 labs are reviewed, on trach to vent, no bleeding, agitated overnight, no complaints 01/13 labs noted, no bleeding, is on vent/trach, no bleeding, vitaly longoria, labs are noted 01/14 labs are noted, no bleeding, remains on v/t, remains agitated, no bleeding 01/15 is c.diff positive, wbc higher at 21k, labs noted, on abx, reviewed gi, id recs 01/16 remains on vent, wbc is improved, in sr, as abx per id 01/17 recieved dopamine, tube feeds, on soft restraints, no bleeding, vitaly rn 01/18 labs are noted, no bleeding, vitaly rn, no major changes 01/20 on dopamine gtt, with restraints, no major changes, labs noted 01/21 labs reviewed, no bleeding, vitaly rn, no major changes 01/22 transferred to icu for higher loc, dopamine on hold as bp is good, have increased Synthroid 01/23 labs are pending, meds noted, no bleeding, dopamine gtt ongoing, cbc noted 01/24 still nv, no bleeding, labs reviewed, vitaly rn, with rectal tube in place, on dopamine gtt 01/25 is on bipap, nv, no bleeding, remains on low dose pressorm hgb 11 01/27 on dopamine, hr was elevated overnight, cards aware 01/28 on vent, with ivfs running, rectal tube with red blood noted, consider gi eval 01/29 on vent, labs reviewed, wbc 22, hgb 8.4, on abx currently, vanc/flagyl/cefepime 02/02 labs reviewed, no bleeding, on vent, no night sweats, wbc improved 02/03 is on gtube feeds, with trach to vent, oxygen as needed, labs wbc better 02/04 nv, is on gt, on vent, no bleeding, labs are noted, guarded prognosis 02/05 labs are noted, nv, is on gt feeds, no bleeding, abx as needed 02/06 labs reviewed, is on tube feeds, on vent, nv, no bleeding 02/07 labs are noted, no bleeding, trach/to vent, wth gtube, meds reviewed 02/08 very agitated, no bleeding, med noted, no night sweats, in restraints 02/10 off dopamine currently, labs reviewed, overnight agitated 02/12 still agitated overnight, cbc has been reordered recent hgb reviewed 02/13 labs reviewed, is on ivfs, meds noted, no bleeding, vitaly rn, hgb 8.7 02/14 labs reviewed, on vent, and rectal tube, meds noted Objective Objective Current Medications Medications (Trade) Dose Ordered Sig/Villa Route PRN Reason Start Time Stop Time Status Last Admin Dose Admin Acetaminophen (Tylenol) 650 mg Q4H PRN GT Temp >100.5 02/01/20 20:30 03/02/20 20:29 02/14/20 20:50 Ascorbic Acid (Vitamin C) 500 mg DAILY GT 01/28/20 09:30 02/27/20 09:29 02/14/20 08:38 Clonazepam (KlonoPIN) 1 mg EVERY 8 HOURS GT 02/14/20 14:00 02/21/20 13:59 Dextrose/Sodium Chloride 1,000 ml @ 75 mls/hr [id number] IV 01/29/20 13:00 02/27/20 12:59 02/14/20 23:41 Diphenoxylate HCl/ Atropine (Lomotil) 2.5 mg Q6HR ORAL 02/14/20 15:00 02/16/20 14:59 02/15/20 06:04 Famotidine (Pepcid I.v.) 20 mg Q12HR IVP 01/29/20 21:00 02/28/20 20:59 02/14/20 20:50 Gabapentin (Neurontin) 900 mg TID GT 01/28/20 09:30 02/19/20 09:29 02/14/20 17:11 Haloperidol Lactate (Haldol) 5 mg Q6H PRN IM Agitation 01/28/20 09:30 02/15/20 09:29 Midodrine (Pro-Amatine) 10 mg TID GT 02/07/20 18:00 04/21/20 17:59 02/14/20 17:11 Multivitamins (Multivitamins W/ Minerals 15ml Liquid) 15 ml DAILY GT 01/28/20 09:30 02/27/20 09:29 02/14/20 08:38 Pantoprazole (Protonix) 40 mg EVERY 12 HOURS IVP 01/31/20 09:30 03/01/20 09:29 02/14/20 20:50 Potassium Chloride (K-Dur) 40 meq TWICE A DAY ORAL 02/02/20 18:00 05/02/20 17:59 02/13/20 17:43 Sucralfate (Carafate) 1 gm FOUR TIMES A DAY ORAL 01/30/20 09:00 04/29/20 08:59 02/14/20 20:50 Thiamine HCl (Vitamin B1) 100 mg DAILY GT 01/28/20 09:30 02/27/20 09:29 02/14/20 08:38 Last 24 Hour Vital Signs Date Time Temp Pulse Resp B/P (MAP) Pulse Ox O2 Delivery O2 Flow Rate FiO2 02/15/20 04:00 35 02/15/20 04:00 98.2 81 16 93/62 (72) 100 02/15/20 04:00 Mechanical Ventilator 02/15/20 04:00 98.2 81 16 93/62 (72) 100 02/15/20 03:30 72 15 28 02/15/20 03:30 76 02/15/20 00:00 98.8 72 20 120/63 (82) 100 02/15/20 00:00 Mechanical Ventilator 02/14/20 23:29 60 02/14/20 23:23 65 12 28 02/14/20 21:20 98.7 02/14/20 21:00 35 02/14/20 21:00 35 02/14/20 20:00 99.1 67 19 92/68 (76) 100 02/14/20 20:00 Mechanical Ventilator 02/14/20 19:35 65 15 28 02/14/20 19:02 65 02/14/20 16:00 Mechanical Ventilator 02/14/20 16:00 35 02/14/20 16:00 65 02/14/20 16:00 98.1 76 21 109/52 (71) 99 02/14/20 15:00 66 15 28 02/14/20 12:00 97.9 64 18 116/65 (82) 100 02/14/20 12:00 Mechanical Ventilator 02/14/20 12:00 64 02/14/20 12:00 35 02/14/20 11:10 64 12 28 02/14/20 09:36 63 17 28 02/14/20 08:00 79 02/14/20 08:00 Mechanical Ventilator 02/14/20 08:00 35 02/14/20 08:00 97.9 72 22 104/58 (73) 100 02/14/20 07:00 77 16 28 02/14/20 04:00 94 02/14/20 04:00 98.1 84 23 115/63 (80) 100 02/14/20 04:00 35 02/14/20 04:00 Mechanical Ventilator 02/14/20 03:30 80 22 28 02/14/20 00:00 35 02/14/20 00:00 Mechanical Ventilator 02/14/20 00:00 98.0 77 23 114/67 (83) 100 02/14/20 00:00 89 02/13/20 22:48 89 20 28 02/13/20 20:00 60 02/13/20 20:00 98.1 59 17 105/47 (66) 100 02/13/20 20:00 Mechanical Ventilator 02/13/20 19:28 65 19 28 02/13/20 16:00 35 02/13/20 16:00 Mechanical Ventilator 02/13/20 16:00 Mechanical Ventilator 02/13/20 16:00 57 02/13/20 15:31 98.0 58 17 99/50 (66) 100 02/13/20 15:00 72 19 28 02/13/20 12:11 35 02/13/20 12:10 97.3 89 18 111/51 (71) 100 02/13/20 12:00 Mechanical Ventilator 02/13/20 12:00 79 02/13/20 10:40 90 12 35 02/13/20 08:00 93 02/13/20 08:00 Mechanical Ventilator 02/13/20 08:00 98.4 92 18 95/51 (66) 100 02/13/20 08:00 35 02/13/20 07:10 88 16 35 Intake and Output 02/14/20 02/15/20 19:00 07:00 Intake Total 1480 ml 1558.75 ml Balance 1480 ml 1558.75 ml Intake Free Water 160 ml 180 ml IV Total 825 ml 773.75 ml Tube Feeding 495 ml 605 ml # Voids 2 Labs Test 02/12/20 12:27 02/12/20 17:53 02/13/20 00:21 02/13/20 12:56 POC Whole Blood Glucose 107 MG/DL (74-106) Test 02/13/20 18:46 02/14/20 02:02 02/14/20 02:55 02/14/20 05:55 POC Whole Blood Glucose 86 MG/DL (74-106) 86 MG/DL (74-106) 113 MG/DL (74-106) White Blood Count 10.5 K/UL (4.8-10.8) Red Blood Count 3.05 M/UL (4.20-5.40) Hemoglobin 8.7 G/DL (12.0-16.0) Hematocrit 26.9 % (37.0-47.0) Mean Corpuscular Volume 88 FL (80-99) Mean Corpuscular Hemoglobin 28.6 PG (27.0-31.0) Mean Corpuscular Hemoglobin Concent 32.4 G/DL (32.0-36.0) Red Cell Distribution Width 14.7 % (11.6-14.8) Platelet Count 722 K/UL (150-450) Mean Platelet Volume 3.9 FL (6.5-10.1) Neutrophils (%) (Auto) 57.7 % (45.0-75.0) Lymphocytes (%) (Auto) 23.0 % (20.0-45.0) Monocytes (%) (Auto) 15.0 % (1.0-10.0) Eosinophils (%) (Auto) 3.0 % (0.0-3.0) Basophils (%) (Auto) 1.4 % (0.0-2.0) Test 02/14/20 12:36 02/14/20 17:32 02/14/20 22:21 02/15/20 02:40 POC Whole Blood Glucose 85 MG/DL (74-106) 96 MG/DL (74-106) 85 MG/DL (74-106) White Blood Count 10.6 K/UL (4.8-10.8) Red Blood Count 2.98 M/UL (4.20-5.40) Hemoglobin 8.6 G/DL (12.0-16.0) Hematocrit 26.1 % (37.0-47.0) Mean Corpuscular Volume 88 FL (80-99) Mean Corpuscular Hemoglobin 29.0 PG (27.0-31.0) Mean Corpuscular Hemoglobin Concent 33.0 G/DL (32.0-36.0) Red Cell Distribution Width 14.6 % (11.6-14.8) Platelet Count 697 K/UL (150-450) Mean Platelet Volume 4.4 FL (6.5-10.1) Neutrophils (%) (Auto) 58.4 % (45.0-75.0) Lymphocytes (%) (Auto) 21.7 % (20.0-45.0) Monocytes (%) (Auto) 15.8 % (1.0-10.0) Eosinophils (%) (Auto) 2.6 % (0.0-3.0) Basophils (%) (Auto) 1.5 % (0.0-2.0) Test 02/15/20 05:27 POC Whole Blood Glucose 104 MG/DL (74-106) Height (Feet): 5 Height (Inches): 1.00 Weight (Pounds): 82 Objective Vital Signs General Appearance: ++ cachectic, chronically ill HEENT: normocephalic, atraumatic ++ trach Resp: other -. vent ++ Cardiovascular: regular rate, rhythm, no edema Gastrointestinal: gtube in place, without erythema Rectal: other - Hemoccult positive [place]: back normal, gait/station normal, non-tender Lymphatic: no adenopathy Baltazar Cortes MD Feb 15, 2020 06:44
[2020-02-15 08:00] VITALS: BP 91/50
--- NOTE | 2020-02-15 09:13 | Nephrology Progress Note ---
Assessment/Plan Problem List: (1) RICHARD (acute kidney injury) (2) Dehydration (3) Anemia (4) GI bleed (5) Malnutrition (6) Seizure disorder (7) Electrolyte imbalance Assessment Renal failure, in the form of prerenal azotemia, most likely secondary to GI bleed GI bleed, leading to severe anemia Sepsis, pneumonia Chronic tracheostomy, ventilator dependent History of CVA History of seizure disorder History of psychiatric disorder Severe malnutrition Electrolyte abnormalities Plan February 14: No chemistry panel done today. Clinically remains stable. Continue per PMD. February 13: Status quo. Stable from renal standpoint of view. February 12: Stable from renal standpoint of view. Remains full code on ventilator. Continue per PMD. February 11: Today's labs reviewed. Full code. On ventilator. Abnormal imani ctrolytes addressed. February 10: No can panel done today. Full code. On ventilator. Will order lab tomorrow. February 09: No chemistry panel done today. Remains full code. Remains on ventilator. Continue per PMD. February 08: Labs reviewed. Electrolyte abnormalities addressed. Patient full code. Continue per current management. February 07: No chemistry panel done today. Remains stable from renal standpoint of view. Patient is full code. Order lab tomorrow. February 06: No chemistry panel drawn today. Clinically remains stable from renal standpoint of view. Patient is full code. February 05: Phosphorus and magnesium supplement given. Stable from renal standpoint of view. Remains full code February 04: No chemistry panel done today. Remains stable from renal standpoint of view. Continue to monitor renal parameters. February 03: Labs reviewed. Renal parameters stable. Continue her consultants. February 02: Lab reviewed. Low phosphorus low magnesium corrections ordered. Continue to monitor electrolytes and renal parameters. February 01: Lab reviewed. Low phosphorus and low magnesium replaced. Low potassium replaced. Continue to monitor electrolytes. Continue per consultants. January 31: Lab reviewed. Hemoglobin higher. Renal parameters stable. Potassium and phosphorus supplement given. January 30: Labs reviewed. Low mag low phosphorus and low potassium replaced. White blood cells 16,000 today. Remains full code. Continue to monitor hemoglobin and hematocrit and electrolytes. January 29: Labs reviewed. Magnesium, potassium, phosphorus supplement given. White blood cells down to 22,000. Remains full code. Continue per consultants. RN reports rectal bleed. Hemoglobin drifting down. Defer management to granite sandblaster apprentice who is already on the case. January 28: Status quo. Electrolyte abnormalities noted. Mag Phos and potassium supplement IV given. Renal parameters stable. Continue per consultants. Leukocytosis persists. January 27: Significant rise in white blood cell counts. Hypotensive. Now in ICU. Will give albumin bolus. Continue to monitor renal parameters. Continue per ID advice. January 26: Continue to monitor renal parameters. Patient remains on ventilator. Patient is full code. Continue per consultants. January 25: Status quo. Labs reviewed. Continue per consultants. January 24: Status unchanged. Labs reviewed. Remains stable from renal standpoint of view. January 23: Back in [facility]. Stable from renal standpoint of view. Continue per consultants. January 22: Patient in ICU now. Vital signs and heart rate and blood pressure appears to be stable. Patient had an episode of bradycardia but it was resolved. TSH level today is very low will cut down on Synthroid dose. January 21: Today's labs are reviewed. Stable renal parameters. Continue per consultants. January 20: Labs reviewed. Renal parameters stable. January 19: Labs reviewed. Stable from renal standpoint. January 18: No labs done today. Continue per consultants. Medications reviewed. January 17: Late note entry due to system problem at the [facility] [place] today.Chemistry panel reviewed. Stable from renal standpoint of view. Continue per current management. January 16: No can panel today. Check lab tomorrow. Remains stable from renal standpoint of view. January 15: Lab reviewed. Renal parameters stable. January 14: Lab reviewed. Renal parameters stable. January 13: Labs reviewed. Stable from renal standpoint of view. January 12: Labs reviewed. Stable from renal standpoint of view January 11: No labs drawn today stable from renal standpoint of view January 10: Labs reviewed. Potassium supplement given. Continue per consultants. January 09: Lab reviewed. Potassium supplement given. IV fluid discontinued. January 08: Lab reviewed. Renal parameters stable. Continue per consultants. January 07: Lab reviewed. Renal parameters stable. Continue per consultants. January 06: Lab reviewed. Stable from renal standpoint of view. January 05: Labs reviewed. Stable from renal standpoint of view. Continue per consultants. January 04: No labs drawn today. Will check labs tomorrow. Continue per consultants. January 03: Lab reviewed. Renal parameters stable. IV fluid discontinued. High LFTs declining. Continue same. January 02: Lab reviewed. Renal parameters stable. Continue per PMD and consultants. LFTs remain elevated. Continue to monitor. Continue slow hydration Discontinue blood pressure medications as her blood pressure is low Discontinue diuretics Monitor renal parameters Transfusion as needed GI evaluation Correct electrolyte abnormalities Check B12 level, folate, and thyroid function tests: Results noted Subjective ROS Limited/Unobtainable: Yes Objective Objective Last 24 Hour Vital Signs Date Time Temp Pulse Resp B/P (MAP) Pulse Ox O2 Delivery O2 Flow Rate FiO2 02/15/20 08:00 77 02/15/20 08:00 35 02/15/20 08:00 98.2 75 18 91/50 (64) 100 02/15/20 07:10 70 17 28 02/15/20 04:00 35 02/15/20 04:00 98.2 81 16 93/62 (72) 100 02/15/20 04:00 Mechanical Ventilator 02/15/20 04:00 98.2 81 16 93/62 (72) 100 02/15/20 03:30 72 15 28 02/15/20 03:30 76 02/15/20 00:00 98.8 72 20 120/63 (82) 100 02/15/20 00:00 Mechanical Ventilator 02/14/20 23:29 60 02/14/20 23:23 65 12 28 02/14/20 21:20 98.7 02/14/20 21:00 35 02/14/20 21:00 35 02/14/20 20:00 99.1 67 19 92/68 (76) 100 02/14/20 20:00 Mechanical Ventilator 02/14/20 19:35 65 15 28 02/14/20 19:02 65 02/14/20 16:00 Mechanical Ventilator 02/14/20 16:00 35 02/14/20 16:00 65 02/14/20 16:00 98.1 76 21 109/52 (71) 99 02/14/20 15:00 66 15 28 02/14/20 12:00 97.9 64 18 116/65 (82) 100 02/14/20 12:00 Mechanical Ventilator 02/14/20 12:00 64 02/14/20 12:00 35 02/14/20 11:10 64 12 28 02/14/20 09:36 63 17 28 Intake and Output 02/14/20 02/15/20 19:00 07:00 Intake Total 1480 ml 1558.75 ml Balance 1480 ml 1558.75 ml Intake Free Water 160 ml 180 ml IV Total 825 ml 773.75 ml Tube Feeding 495 ml 605 ml # Voids 2 Laboratory Tests 02/14/20 12:36: POC Whole Blood Glucose 85 02/14/20 17:32: POC Whole Blood Glucose 96 02/14/20 22:21: POC Whole Blood Glucose 85 02/15/20 02:40: White Blood Count 10.6, Red Blood Count 2.98L, Hemoglobin 8.6L, Hematocrit 26.1L , Mean Corpuscular Volume 88, Mean Corpuscular Hemoglobin 29.0, Mean Corpuscular Hemoglobin Concent 33.0, Red Cell Distribution Width 14.6, Platelet Count 697H, Mean Platelet Volume 4.4L, Neutrophils (%) (Auto) 58.4, Lymphocytes (%) (Auto) 21.7, Monocytes (%) (Auto) 15.8H, Eosinophils (%) (Auto) 2.6, Basophils (%) (Auto) 1.5 02/15/20 05:27: POC Whole Blood Glucose 104 Height (Feet): 5 Height (Inches): 1.00 Weight (Pounds): 82 General Appearance: no apparent distress EENT: other - Trach vent Cardiovascular: normal rate Respiratory/Chest: decreased breath sounds Abdomen: distended Objective No change Chivo Holloway MD Feb 15, 2020 09:13
[2020-02-15 09:33] LABS: ALANINE AMINOTRANSFERASE 48 U/L (12-78); ALBUMIN 1.8 G/DL (3.4-5.0); ALBUMIN/GLOBULIN RATIO 0.4 (1.0-2.7); ALKALINE PHOSPHATASE 454 U/L (46-116); ANION GAP 4 mmol/L (5-15); ASPARTATE AMINO TRANSFERASE 68 U/L (15-37); BILIRUBIN,TOTAL 0.3 MG/DL (0.2-1.0); BLOOD UREA NITROGEN 12 mg/dL (7-18); CALCIUM 8.8 MG/DL (8.5-10.1); CARBON DIOXIDE 32 MMOL/L (21-32); CHLORIDE 102 MMOL/L (98-107); CREATININE 0.4 MG/DL (0.55-1.30); PHOSPHORUS 3.8 MG/DL (2.5-4.9); POTASSIUM 4.4 MMOL/L (3.5-5.1); SODIUM 138 MMOL/L (136-145)
[2020-02-15] MEDS: Multivitamins W/Minerals 15 ML UDC GT SCH (09:50)
[2020-02-15] MEDS: Pantoprazole Inj IVP SCH ×2 (09:50→21:14)
[2020-02-15] MEDS: Ascorbic Acid 500mg tab GT SCH (09:51)
[2020-02-15] MEDS: Midodrine 10mg tab GT SCH ×3 (09:51→18:25)
[2020-02-15] MEDS: Thiamine 100mg tab GT SCH (09:51)
[2020-02-15] MEDS: Gabapentin 300 MG/6 ML Soln GT SCH ×3 (09:52→18:25)
[2020-02-15] MEDS: Sucralfate 1gm tab ORAL SCH ×4 (09:52→21:14)
--- NOTE | 2020-02-15 09:59 | Pulmonology Progress Note ---
Ivanna Mora CANCELING AND CUTTING CONTROL CLERK 02/15/20 0959: Subjective ROS Limited/Unobtainable: Yes Allergies: Coded Allergies: CARBAMAZEPINE (Verified Allergy, Unknown, 12/31/19) LORAZEPAM (Verified Allergy, Unknown, 12/31/19) Subjective in JULIANA no diarrhea over night no signs of resp distress on current vent settings on Midodrine, off Dopamine gtt mild leuk resolved, remains afebrile CXR 02/09 - no definite infiltrate repeated venous Duplex BLE NGT Objective Last 24 Hour Vital Signs Date Time Temp Pulse Resp B/P (MAP) Pulse Ox O2 Delivery O2 Flow Rate FiO2 02/15/20 08:00 77 02/15/20 08:00 35 02/15/20 08:00 98.2 75 18 91/50 (64) 100 02/15/20 07:10 70 17 28 02/15/20 04:00 35 02/15/20 04:00 98.2 81 16 93/62 (72) 100 02/15/20 04:00 Mechanical Ventilator 02/15/20 04:00 98.2 81 16 93/62 (72) 100 02/15/20 03:30 72 15 28 02/15/20 03:30 76 02/15/20 00:00 98.8 72 20 120/63 (82) 100 02/15/20 00:00 Mechanical Ventilator 02/14/20 23:29 60 02/14/20 23:23 65 12 28 02/14/20 21:20 98.7 02/14/20 21:00 35 02/14/20 21:00 35 02/14/20 20:00 99.1 67 19 92/68 (76) 100 02/14/20 20:00 Mechanical Ventilator 02/14/20 19:35 65 15 28 02/14/20 19:02 65 02/14/20 16:00 Mechanical Ventilator 02/14/20 16:00 35 02/14/20 16:00 65 02/14/20 16:00 98.1 76 21 109/52 (71) 99 02/14/20 15:00 66 15 28 02/14/20 12:00 97.9 64 18 116/65 (82) 100 02/14/20 12:00 Mechanical Ventilator 02/14/20 12:00 64 02/14/20 12:00 35 02/14/20 11:10 64 12 28 Intake and Output 9/30/20 10/1/20 19:00 07:00 Intake Total 1480 ml 1558.75 ml Balance 1480 ml 1558.75 ml Intake Free Water 160 ml 180 ml IV Total 825 ml 773.75 ml Tube Feeding 495 ml 605 ml # Voids 2 Objective General Appearance: bedridden, pale, chronically ill looking, older than her biological age ; vent dependent female ; on vent SIMV 450-30%-12, PEEP 5 Lines, tubes and drains: trach HEENT: normocephalic, atraumatic Neck: trach - Portex #7, secretions small amount, yellow color, thin consistency Respiratory/Chest: CTAB Cardiovascular/Chest: regular rate, regular rhythm Abdomen: non tender, soft, G tube , Genitourinary/Rectal: [place] Extremities: no edema, muscle atrophy Neurologic: abnormal gait, awake, poorly responsive Musculoskeletal: atrophy BLE Skin: multiple tattoos Laboratory Tests 02/14/20 12:36: POC Whole Blood Glucose 85 02/14/20 17:32: POC Whole Blood Glucose 96 02/14/20 22:21: POC Whole Blood Glucose 85 02/15/20 02:40: White Blood Count 10.6, Red Blood Count 2.98L, Hemoglobin 8.6L, Hematocrit 26.1L , Mean Corpuscular Volume 88, Mean Corpuscular Hemoglobin 29.0, Mean Corpuscular Hemoglobin Concent 33.0, Red Cell Distribution Width 14.6, Platelet Count 697H, Mean Platelet Volume 4.4L, Neutrophils (%) (Auto) 58.4, Lymphocytes (%) (Auto) 21.7, Monocytes (%) (Auto) 15.8H, Eosinophils (%) (Auto) 2.6, Basophils (%) (Auto) 1.5, Sodium Level 138, Potassium Level 4.4, Chloride Level 102, Carbon Dioxide Level 32, Anion Gap 4L, Blood Urea Nitrogen 12, Creatinine 0.4L, Estimat Glomerular Filtration Rate > 60, Glucose Level 81, Calcium Level 8.8, Phosphorus Level 3.8, Magnesium Level 1.9, Total Bilirubin 0.3, Aspartate Amino Transf (AST/SGOT) 68H, Alanine Aminotransferase (ALT/SGPT) 48, Alkaline Phosphatase 454H, Total Protein 6.4, Albumin 1.8L, Globulin 4.6, Albumin/Globulin Ratio 0.4L 02/15/20 05:27: POC Whole Blood Glucose 104 Current Medications Medications (Trade) Dose Ordered Sig/Villa Route PRN Reason Start Time Stop Time Status Last Admin Dose Admin Acetaminophen (Tylenol) 650 mg Q4H PRN GT Temp >100.5 02/01/20 20:30 03/02/20 20:29 02/14/20 20:50 Ascorbic Acid (Vitamin C) 500 mg DAILY GT 01/28/20 09:30 02/27/20 09:29 02/15/20 09:51 Clonazepam (KlonoPIN) 1 mg EVERY 8 HOURS GT 02/14/20 14:00 02/21/20 13:59 02/15/20 09:53 Dextrose/Sodium Chloride 1,000 ml @ 75 mls/hr [id number] IV 01/29/20 13:00 02/27/20 12:59 02/14/20 23:41 Diphenoxylate HCl/ Atropine (Lomotil) 2.5 mg Q6HR ORAL 02/14/20 15:00 02/16/20 14:59 02/15/20 06:04 Famotidine (Pepcid I.v.) 20 mg Q12HR IVP 01/29/20 21:00 02/28/20 20:59 02/15/20 09:52 Gabapentin (Neurontin) 900 mg TID GT 01/28/20 09:30 02/19/20 09:29 02/15/20 09:52 Midodrine (Pro-Amatine) 10 mg TID GT 02/07/20 18:00 04/21/20 17:59 02/15/20 09:51 Multivitamins (Multivitamins W/ Minerals 15ml Liquid) 15 ml DAILY GT 01/28/20 09:30 02/27/20 09:29 02/15/20 09:50 Pantoprazole (Protonix) 40 mg EVERY 12 HOURS IVP 01/31/20 09:30 03/01/20 09:29 02/15/20 09:50 Potassium Chloride (K-Dur) 40 meq TWICE A DAY ORAL 02/02/20 18:00 05/02/20 17:59 02/15/20 09:51 Sucralfate (Carafate) 1 gm FOUR TIMES A DAY ORAL 01/30/20 09:00 04/29/20 08:59 02/15/20 09:52 Thiamine HCl (Vitamin B1) 100 mg DAILY GT 01/28/20 09:30 02/27/20 09:29 02/15/20 09:51 Assessment/Plan Assessment/Plan ASSESSMENT VDRF/trach status Sepsis Possible pneumonia UTI recurrent GI bleeding severe C dif colitis Anemia secondary to GI bleeding Aspiration risk Dysphagia, feeding by G-tube Encephalopathy Acute kidney injury likely secondary to dehydration Recurrent bradycardia persistent Hypotension Electrolyte imbalance Severe protein calorie malnutrition Hx of hypertension History of CVA Seizure disorder with witnessed seizure episode 01/07 Psychiatric disorder Presumed scabies, s/p Rx Thrombocytopenia-transient- resolved PLAN OF CARE JULIANA off Dopamine gtt, BP better with Midodrine only on IVF, vent support, pulm toilet ABG stable on current settings on SIMV mode 450-30-12 PEEP5 , no signs of resp distress on these settings keep settings as is and titrate as needed CXR 01/27 no acute disease pulm toilet via N CT chest 01/28 - with tree-in-bud nodular opacities in the medial left base and lingula with left bronchial bubbly material suggesting infectious or inflammatory bronchiolitis, likely due to aspiration. Small amount of similar foci seen in the right posterior lower lobe. Mild bronchiectasis and reticulation in the lingula, medial left base, and superior left upper lobe could also be due to chronic infection. CXR 02/01 -Interval development of retrocardiac airspace opacities which could represent atelectasis versus developing consolidation. probably ATX , given no fevers, resolved leukocytosis, no resp distress on current settings CXR 02/04 Bilateral mostly interstitial opacities; suspect largely chronic although there may be an acute component at the left lung base. The latter does appear somewhat improved since the previous exam. CXR 02/09 -> no definite infiltrate pancx-per ID CXR 01/13- no acute findings KUB 01/13- no acute findings UA + yeast , 01/12 UCX +yeast, started on Fluconazole 01/14 as per ID -completed BCX 01/12 NGTD BCX 01/26 and 01/27 NGTD Vanco po was prior dc and switched to Dificid , also on Flagyl per GI -till 01/28 , both extended till , completed inflammatory markers : ESR-42, CRP- wnl WBC smear NGT C dif a/b 01/30 NGT less output from rectal tube UCX 01/27 + Klebs CR- started on Gent per ID recs given prior leukocytosis and fevers SCX 02/02 + Serratia,Pseudomonas abx as per ID recs , Gent completed 02/10 ( prior extended for 3 days given mild leuk and fever), leuk resolved no fever CXR 02/09 no significant findings, no definite infiltrate CT C/ A/P noted ( see results of CT chest above), CT A/P with findings most compatible with ileus and probable infectious or inflammatory enteritis or enterocolitis. off cefepime rapid COVID 19 NGT in ED aspiration precautions Venous Duplex BLE -negative, get SCD ( unable to give a/c given anemia) closely monitor hemodynamic status repeated Venous Duplex BLE NGT heme and GI follows s/p prior EGD 01/01 -> gastric ulcer across G tube site , no active bleeding s/p EGD 01/30 -> gastric ulceration without visible bleeding Protonix IV bid ( changed from Protonix gtt), Carafate GT feeding resumed as per GI , s/p blood tx 01/30 stool OB positive , another pending transfuse to keep Hgb > 7. HH at baseline trend LFT-> trended down, hep panel NGT hx of cirrhosis- per GI management monitor renal parameters, lytes, avoid nephrotoxic IVF BUN trending down, creat stable, likely prerenal due to dehydration replace e/lytes as per nephro recs , monitor volumes seizure precautions, antiepileptic optimized as per neuro recs ammonia 49, fup with further neuro recs EEG - grossly abnormal; mild to mod encephalopathy, single ictal episode CT head no acute IC pathology BP management with current regimen SNF meds supportive care dietary recs s/p 12/31 Rx for presumed scabies with permethrin and Ivermectin, repeated Ivermectin 01/08 dc plan for today as per primary case discussed and evaluated by supervising physician Raul Esparza MD 02/15/20 1200: Subjective Allergies: Coded Allergies: CARBAMAZEPINE (Verified Allergy, Unknown, 12/31/19) LORAZEPAM (Verified Allergy, Unknown, 12/31/19) Assessment/Plan Assessment/Plan Patient seen and examined with CANCELING AND CUTTING CONTROL CLERK. Agree with above A&P as it reflects our joint deliberations. Ivanna Mora NP Feb 15, 2020 09:59 Raul Esparza MD Feb 15, 2020 12:00
--- NOTE | 2020-02-15 10:25 | Infectious Diseases Prog Note ---
Assessment/Plan 39yo F with: Severe Sepsis Fever, recurrent; SP Leukocytosis; recurrent; mild UTI -02/04 CXR: Bilateral mostly interstitial opacities; suspect largely chronic althoughthere may be an acute component at the left lung base. The latter does appear somewhat improved since the previous exam. -02/02 sp cx S. marcences (R ancef, CTX, mami; I Levo; S Genta, Ceftazidime, Cefepime, bactrim), GNR #2 -02/01 CXR: Interval development of retrocardiac airspace opacities which could represent atelectasis versus developing consolidation. u/a wbc 5-10, nit neg, leuk +2; -01/28 CXR: Subtle reticular nodular opacities in the left apex which may be related to scarring versus acute small airway disease/bronchitis CT c/abd/p wo: Study substantially limited due to lack of IV contrast. Findings most compatible with ileus and probable infectious or inflammatory enteritis or enterocolitis. Large low-attenuation pelvic fluid of uncertain significance, potentially reactive.Appendix not identified. Percutaneous gastrostomy tube adequately positioned in the stomach. Rectal tube. Urinary bladder wall thickening could be incidental, due to high outlet pressures, or could represent cystitis.Cholecystectomy. -01/27 u/a no pyuria, nit +, leuk +3; ucx >100k CRE K, pna (S Gentamycin), P . miriabilis, MDR P, fluorensces (I Gentamycin) CXR: no acute disease Bc xNTD -01/26 Bcx Neg -01/13 CXR: no acute disease -01/12 u/a wbc tnct, nit neg, latrell +3; ucx >100k C. tropicalis Bcx NTD Severe Cdiff colitis -01/30 Cdif toxin a/b neg -01/06 Cdif toxin + 01/27 KUB:Severely dilated small bowel loop in the central abdomen could reflect obstruction. Diffusely fluid distended colon. -01/13 KUB: no acute findings Recurrent GIB 01/06 u/aneg 12/30 BCx 1/2 +CONS, likely contaminant 12/30 UA neg, COVID rapid Ag neg 12/30 CXR 1. Density overlying the bilateral lung apices. May represent pleural thickening, multifocal airspace opacities, versus summation artifact. 01/01 BCx Neg 01/02 BCx Neg Acute blood loss anemia Possible pna on CXR, sp rx Seizure episode -01/10 CT head: Third and lateral ventriculomegaly. Associated enlargement of the extra axial CSF spaces indicates that this is probably due to central volume loss, but the possibility of hydrocephalus should also be considered. At the degree of volume loss is considerably out of proportion to patient's age. Periventricular deep white matter low-attenuation. Probably on the basis of microvascular ischemic change but given patient's age the possibility of demyelinating disease should be considered as well. 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 [facility] will continue to follow. Subjective Allergies: Coded Allergies: CARBAMAZEPINE (Verified Allergy, Unknown, 12/31/19) LORAZEPAM (Verified Allergy, Unknown, 12/31/19) Afebrile No Leukocytosis Satting well on Vent BILLIE Objective Last 24 Hour Vital Signs Date Time Temp Pulse Resp B/P (MAP) Pulse Ox O2 Delivery O2 Flow Rate FiO2 02/15/20 08:00 77 02/15/20 08:00 35 02/15/20 08:00 98.2 75 18 91/50 (64) 100 02/15/20 07:10 70 17 28 02/15/20 04:00 35 02/15/20 04:00 98.2 81 16 93/62 (72) 100 02/15/20 04:00 Mechanical Ventilator 02/15/20 04:00 98.2 81 16 93/62 (72) 100 02/15/20 03:30 72 15 28 02/15/20 03:30 76 02/15/20 00:00 98.8 72 20 120/63 (82) 100 02/15/20 00:00 Mechanical Ventilator 02/14/20 23:29 60 02/14/20 23:23 65 12 28 02/14/20 21:20 98.7 02/14/20 21:00 35 02/14/20 21:00 35 02/14/20 20:00 99.1 67 19 92/68 (76) 100 02/14/20 20:00 Mechanical Ventilator 02/14/20 19:35 65 15 28 02/14/20 19:02 65 02/14/20 16:00 Mechanical Ventilator 02/14/20 16:00 35 02/14/20 16:00 65 02/14/20 16:00 98.1 76 21 109/52 (71) 99 02/14/20 15:00 66 15 28 02/14/20 12:00 97.9 64 18 116/65 (82) 100 02/14/20 12:00 Mechanical Ventilator 02/14/20 12:00 64 02/14/20 12:00 35 02/14/20 11:10 64 12 28 Height (Feet): 5 Height (Inches): 1.00 Weight (Pounds): 82 GEN: NAD, On Vent HEENT: NCAT, MMM, EOMI Pulm: Equal chest rise and fall B/L, NO accessory muscle use ABD: Soft, ND Laboratory Tests Test 02/14/20 12:36 02/14/20 17:32 02/14/20 22:21 02/15/20 02:40 POC Whole Blood Glucose 85 MG/DL (74-106) 96 MG/DL (74-106) 85 MG/DL (74-106) White Blood Count 10.6 K/UL (4.8-10.8) Red Blood Count 2.98 M/UL (4.20-5.40) L Hemoglobin 8.6 G/DL (12.0-16.0) L Hematocrit 26.1 % (37.0-47.0) L Mean Corpuscular Volume 88 FL (80-99) Mean Corpuscular Hemoglobin 29.0 PG (27.0-31.0) Mean Corpuscular Hemoglobin Concent 33.0 G/DL (32.0-36.0) Red Cell Distribution Width 14.6 % (11.6-14.8) Platelet Count 697 K/UL (150-450) H Mean Platelet Volume 4.4 FL (6.5-10.1) L Neutrophils (%) (Auto) 58.4 % (45.0-75.0) Lymphocytes (%) (Auto) 21.7 % (20.0-45.0) Monocytes (%) (Auto) 15.8 % (1.0-10.0) H Eosinophils (%) (Auto) 2.6 % (0.0-3.0) Basophils (%) (Auto) 1.5 % (0.0-2.0) Sodium Level 138 MMOL/L (136-145) Potassium Level 4.4 MMOL/L (3.5-5.1) Chloride Level 102 MMOL/L (98-107) Carbon Dioxide Level 32 MMOL/L (21-32) Anion Gap 4 mmol/L (5-15) L Blood Urea Nitrogen 12 mg/dL (7-18) Creatinine 0.4 MG/DL (0.55-1.30) L Estimat Glomerular Filtration Rate > 60 mL/min (>60) Glucose Level 81 MG/DL (74-106) Calcium Level 8.8 MG/DL (8.5-10.1) Phosphorus Level 3.8 MG/DL (2.5-4.9) Magnesium Level 1.9 MG/DL (1.8-2.4) Total Bilirubin 0.3 MG/DL (0.2-1.0) Aspartate Amino Transf (AST/SGOT) 68 U/L (15-37) H Alanine Aminotransferase (ALT/SGPT) 48 U/L (12-78) Alkaline Phosphatase 454 U/L (46-116) H Total Protein 6.4 G/DL (6.4-8.2) Albumin 1.8 G/DL (3.4-5.0) L Globulin 4.6 g/dL Albumin/Globulin Ratio 0.4 (1.0-2.7) L Test 02/15/20 05:27 POC Whole Blood Glucose 104 MG/DL (74-106) Current Medications Medications (Trade) Dose Ordered Sig/Villa Route PRN Reason Start Time Stop Time Status Last Admin Dose Admin Acetaminophen (Tylenol) 650 mg Q4H PRN GT Temp >100.5 02/01/20 20:30 03/02/20 20:29 02/14/20 20:50 Ascorbic Acid (Vitamin C) 500 mg DAILY GT 01/28/20 09:30 02/27/20 09:29 02/15/20 09:51 Clonazepam (KlonoPIN) 1 mg EVERY 8 HOURS GT 02/14/20 14:00 02/21/20 13:59 02/15/20 09:53 Dextrose/Sodium Chloride 1,000 ml @ 75 mls/hr [id number] IV 01/29/20 13:00 02/27/20 12:59 02/14/20 23:41 Diphenoxylate HCl/ Atropine (Lomotil) 2.5 mg Q6HR ORAL 02/14/20 15:00 02/16/20 14:59 02/15/20 06:04 Famotidine (Pepcid I.v.) 20 mg Q12HR IVP 01/29/20 21:00 02/28/20 20:59 02/15/20 09:52 Gabapentin (Neurontin) 900 mg TID GT 01/28/20 09:30 02/19/20 09:29 02/15/20 09:52 Midodrine (Pro-Amatine) 10 mg TID GT 02/07/20 18:00 04/21/20 17:59 02/15/20 09:51 Multivitamins (Multivitamins W/ Minerals 15ml Liquid) 15 ml DAILY GT 01/28/20 09:30 02/27/20 09:29 02/15/20 09:50 Pantoprazole (Protonix) 40 mg EVERY 12 HOURS IVP 01/31/20 09:30 03/01/20 09:29 02/15/20 09:50 Potassium Chloride (K-Dur) 40 meq TWICE A DAY ORAL 02/02/20 18:00 05/02/20 17:59 02/15/20 09:51 Sucralfate (Carafate) 1 gm FOUR TIMES A DAY ORAL 01/30/20 09:00 04/29/20 08:59 02/15/20 09:52 Thiamine HCl (Vitamin B1) 100 mg DAILY GT 01/28/20 09:30 02/27/20 09:29 02/15/20 09:51 Jesus Hanson MD Feb 15, 2020 10:25
[2020-02-15] MEDS ORDERED: D5 1/2NS 1000ml IV ONE ×2 (11:42→11:56)
--- NOTE | 2020-02-15 11:44 | General Progress Note ---
Subjective ROS Limited/Unobtainable: No Allergies: Coded Allergies: CARBAMAZEPINE (Verified Allergy, Unknown, 12/31/19) LORAZEPAM (Verified Allergy, Unknown, 12/31/19) Objective Last 24 Hour Vital Signs Date Time Temp Pulse Resp B/P (MAP) Pulse Ox O2 Delivery O2 Flow Rate FiO2 02/15/20 08:00 77 02/15/20 08:00 35 02/15/20 08:00 Mechanical Ventilator 02/15/20 08:00 98.2 75 18 91/50 (64) 100 02/15/20 07:10 70 17 28 02/15/20 04:00 35 02/15/20 04:00 98.2 81 16 93/62 (72) 100 02/15/20 04:00 Mechanical Ventilator 02/15/20 04:00 98.2 81 16 93/62 (72) 100 02/15/20 03:30 72 15 28 02/15/20 03:30 76 02/15/20 00:00 98.8 72 20 120/63 (82) 100 02/15/20 00:00 Mechanical Ventilator 02/14/20 23:29 60 02/14/20 23:23 65 12 28 02/14/20 21:20 98.7 02/14/20 21:00 35 02/14/20 21:00 35 02/14/20 20:00 99.1 67 19 92/68 (76) 100 02/14/20 20:00 Mechanical Ventilator 02/14/20 19:35 65 15 28 02/14/20 19:02 65 02/14/20 16:00 Mechanical Ventilator 02/14/20 16:00 35 02/14/20 16:00 65 02/14/20 16:00 98.1 76 21 109/52 (71) 99 02/14/20 15:00 66 15 28 02/14/20 12:00 97.9 64 18 116/65 (82) 100 02/14/20 12:00 Mechanical Ventilator 02/14/20 12:00 64 02/14/20 12:00 35 Intake and Output 02/14/20 02/15/20 19:00 07:00 Intake Total 1480 ml 1558.75 ml Balance 1480 ml 1558.75 ml Intake Free Water 160 ml 180 ml IV Total 825 ml 773.75 ml Tube Feeding 495 ml 605 ml # Voids 2 Laboratory Tests 02/14/20 12:36: POC Whole Blood Glucose 85 02/14/20 17:32: POC Whole Blood Glucose 96 02/14/20 22:21: POC Whole Blood Glucose 85 02/15/20 02:40: White Blood Count 10.6, Red Blood Count 2.98L, Hemoglobin 8.6L, Hematocrit 26.1L , Mean Corpuscular Volume 88, Mean Corpuscular Hemoglobin 29.0, Mean Corpuscular Hemoglobin Concent 33.0, Red Cell Distribution Width 14.6, Platelet Count 697H, Mean Platelet Volume 4.4L, Neutrophils (%) (Auto) 58.4, Lymphocytes (%) (Auto) 21.7, Monocytes (%) (Auto) 15.8H, Eosinophils (%) (Auto) 2.6, Basophils (%) (Auto) 1.5, Sodium Level 138, Potassium Level 4.4, Chloride Level 102, Carbon Dioxide Level 32, Anion Gap 4L, Blood Urea Nitrogen 12, Creatinine 0.4L, Estimat Glomerular Filtration Rate > 60, Glucose Level 81, Calcium Level 8.8, Phosphorus Level 3.8, Magnesium Level 1.9, Total Bilirubin 0.3, Aspartate Amino Transf (AST/SGOT) 68H, Alanine Aminotransferase (ALT/SGPT) 48, Alkaline Phosphatase 454H, Total Protein 6.4, Albumin 1.8L, Globulin 4.6, Albumin/Globulin Ratio 0.4L 02/15/20 05:27: POC Whole Blood Glucose 104 Height (Feet): 5 Height (Inches): 1.00 Weight (Pounds): 82 General Appearance: no apparent distress EENT: normal ENT inspection Neck: supple Cardiovascular: normal rate Respiratory/Chest: decreased breath sounds Abdomen: normal bowel sounds, non tender, soft Extremities: non-tender Assessment/Plan Problem List: (1) G tube feedings ICD Codes: Z93.1 - Gastrostomy status SNOMED: 870748350, 165303145, [id number] (2) GI bleed ICD Codes: K92.2 - Gastrointestinal hemorrhage, unspecified SNOMED: 61402634 (3) Sepsis ICD Codes: A41.9 - Sepsis, unspecified organism SNOMED: 40620059 (4) Pneumonia ICD Codes: J18.9 - Pneumonia, unspecified organism SNOMED: 566998776 Status: stable, other - Patient is now hypotensive before over 46 she will receive 500 cc of normal saline bolus to be repeated blood pressure remained below 90 further management will be decided following the boluses treatment repeat laboratory tests will be done in a.m. GEM MCKAY MD Assessment/Plan: s/p EGD gastric ulcer monitor H&H C. Diff positive>> now neg GTF prn imodium ppi will fu Satish Carrillo MD Feb 15, 2020 11:44
[2020-02-15] MEDS ORDERED: Tubing IV Secondary IV ONE (11:56)
[2020-02-15] MEDS ORDERED: D5NS 1000ml IV ONE (11:56)
[2020-02-15 12:00] VITALS: BP 95/53
--- NOTE | 2020-02-15 12:15 | Surgery Progress Note ---
Surgery Progress Note Subjective Symptoms: improved, tolerating diet, voiding well, passing flatus Objective Last 24 Hour Vital Signs Date Time Temp Pulse Resp B/P (MAP) Pulse Ox O2 Delivery O2 Flow Rate FiO2 02/15/20 08:00 77 02/15/20 08:00 35 02/15/20 08:00 Mechanical Ventilator 02/15/20 08:00 98.2 75 18 91/50 (64) 100 02/15/20 07:10 70 17 28 02/15/20 04:00 35 02/15/20 04:00 98.2 81 16 93/62 (72) 100 02/15/20 04:00 Mechanical Ventilator 02/15/20 04:00 98.2 81 16 93/62 (72) 100 02/15/20 03:30 72 15 28 02/15/20 03:30 76 02/15/20 00:00 98.8 72 20 120/63 (82) 100 02/15/20 00:00 Mechanical Ventilator 02/14/20 23:29 60 02/14/20 23:23 65 12 28 02/14/20 21:20 98.7 02/14/20 21:00 35 02/14/20 21:00 35 02/14/20 20:00 99.1 67 19 92/68 (76) 100 02/14/20 20:00 Mechanical Ventilator 02/14/20 19:35 65 15 28 02/14/20 19:02 65 02/14/20 16:00 Mechanical Ventilator 02/14/20 16:00 35 02/14/20 16:00 65 02/14/20 16:00 98.1 76 21 109/52 (71) 99 02/14/20 15:00 66 15 28 I&O Intake and Output 02/14/20 02/15/20 19:00 07:00 Intake Total 1480 ml 1558.75 ml Balance 1480 ml 1558.75 ml Intake Free Water 160 ml 180 ml IV Total 825 ml 773.75 ml Tube Feeding 495 ml 605 ml # Voids 2 Dressing: saturated Cardiovascular: RSR Respiratory: decreased breath sounds Abdomen: soft, non-tender, present bowel sounds Extremities: no edema, no tenderness, no cyanosis Laboratory Tests Test 02/14/20 12:36 02/14/20 17:32 02/14/20 22:21 02/15/20 02:40 POC Whole Blood Glucose 85 MG/DL (74-106) 96 MG/DL (74-106) 85 MG/DL (74-106) White Blood Count 10.6 K/UL (4.8-10.8) Red Blood Count 2.98 M/UL (4.20-5.40) L Hemoglobin 8.6 G/DL (12.0-16.0) L Hematocrit 26.1 % (37.0-47.0) L Mean Corpuscular Volume 88 FL (80-99) Mean Corpuscular Hemoglobin 29.0 PG (27.0-31.0) Mean Corpuscular Hemoglobin Concent 33.0 G/DL (32.0-36.0) Red Cell Distribution Width 14.6 % (11.6-14.8) Platelet Count 697 K/UL (150-450) H Mean Platelet Volume 4.4 FL (6.5-10.1) L Neutrophils (%) (Auto) 58.4 % (45.0-75.0) Lymphocytes (%) (Auto) 21.7 % (20.0-45.0) Monocytes (%) (Auto) 15.8 % (1.0-10.0) H Eosinophils (%) (Auto) 2.6 % (0.0-3.0) Basophils (%) (Auto) 1.5 % (0.0-2.0) Sodium Level 138 MMOL/L (136-145) Potassium Level 4.4 MMOL/L (3.5-5.1) Chloride Level 102 MMOL/L (98-107) Carbon Dioxide Level 32 MMOL/L (21-32) Anion Gap 4 mmol/L (5-15) L Blood Urea Nitrogen 12 mg/dL (7-18) Creatinine 0.4 MG/DL (0.55-1.30) L Estimat Glomerular Filtration Rate > 60 mL/min (>60) Glucose Level 81 MG/DL (74-106) Calcium Level 8.8 MG/DL (8.5-10.1) Phosphorus Level 3.8 MG/DL (2.5-4.9) Magnesium Level 1.9 MG/DL (1.8-2.4) Total Bilirubin 0.3 MG/DL (0.2-1.0) Aspartate Amino Transf (AST/SGOT) 68 U/L (15-37) H Alanine Aminotransferase (ALT/SGPT) 48 U/L (12-78) Alkaline Phosphatase 454 U/L (46-116) H Total Protein 6.4 G/DL (6.4-8.2) Albumin 1.8 G/DL (3.4-5.0) L Globulin 4.6 g/dL Albumin/Globulin Ratio 0.4 (1.0-2.7) L Test 02/15/20 05:27 02/15/20 11:47 POC Whole Blood Glucose 104 MG/DL (74-106) 99 MG/DL (74-106) Plan Problems: (1) Pneumonia (2) Sepsis Assessment & Plan: leukocytosis anemia lactic acidosis agree with GI recommend EGD planned for 12/31 hold feeding for now trend h/h monitor for bleeding no acute hemorrhage will be available in event needs exploration for hemostasis prbc as per heme thank you will follow with recs cont abx worsening wbc wbc trending down comfortable appearing no n/v hypotensive in ICU again worse pending CT results - noted PICC ordered improving wbc improved labs and micro trending labs improved wbc resolved prognosis guarded Pt presented on admission in emaciated state. Pt has tracheostomy and GT. NO skin concerns noted to skin under collar of trach. NO erythema or evidence of skin erosion at GT site. Pt noted to have scaly pimple-like rash with webbing noted to R and L axillae, undersides of both breasts, Bilat groin and lower back. Tracking and webbing noted to hands and feet. Pt restless and scratching at skin. Non-Blanching erythema without induration or fluctuance noted to R and L hips and trochanteric areas.Non-blanching erythema noted along spine. Non-Blanching erythema without induration noted to Sacrum. Non-Blanching erythema noted to R and L Malleoli and both heels. Tx.Plan: Please apply Cavilon Skin Barrier to each bony Prominences at risks for Skin Breakdown. Cover each area with Optifoam drsgs. Change every 7 days and prn. Apply Moisture Barrier Paste to Sacrum. Cover with Optifoam drsg. Change every 3 days and prn. Reposition at least every 2hours or as tolerated. Off-load heels with pillow. APM/EMELI Mattress overlay. improving cont current care plan Incontinent social dermatitis noted around the bilateral groin creases and vaginal area. Site clean. Monitor for incontinence. There is marked enlargement of the third and lateral ventricles and extra axial CSF spaces, in particular the former. There is considerable periventricular deep white matter low-attenuation. Otherwise normal mobley-white differentiation. No acute hemorrhage or edema. No mass effect nor midline shift. Visualized orbits and sinuses are unremarkable. The calvarium is intact Impression: Third and lateral ventriculomegaly. Associated enlargement of the extra axial CSF spaces indicates that this is probably due to central volume loss, but the possibility of hydrocephalus should also be considered. At the degree of volume loss is considerably out of proportion to patient's age. Correlate with clinical history Periventricular deep white matter low-attenuation. Probably on the basis of microvascular ischemic change but given patient's age the possibility of demyelinating disease should be considered as well. Negative for acute intracranial bleed or mass effect ABDOMEN: Liver: Unremarkable. Gallbladder and bile ducts: Cholecystectomy. No ductal dilation. Pancreas: Unremarkable. No ductal dilation. Spleen: Unremarkable. No splenomegaly. Adrenals: Unremarkable. No mass. Kidneys and ureters: Unremarkable. No obstructing stones. No hydronephrosis. Stomach and bowel: Operative bowel findings. Diffuse small bowel wall thickening with areas of distention and fluid-filled colonic loops. No clear focal transition point to suggest small bowel obstruction. PELVIS: Appendix: Appendix not identified. Bladder: Urinary bladder wall thickening could be incidental, due to high outlet pressures, or could represent cystitis. No stones. Reproductive: Unremarkable as visualized. ABDOMEN and PELVIS: Intraperitoneal space: Large low-attenuation pelvic fluid of uncertain significance, potentially reactive. No free air. Bones/joints: No acute fracture. No dislocation. Soft tissues: Bilateral buttock injection granulomas. Vasculature: Unremarkable. No abdominal aortic aneurysm. Lymph nodes: Unremarkable. No enlarged lymph nodes. Tubes, lines and devices: Percutaneous gastrostomy tube adequately positioned in the stomach. Rectal tube. Other findings: No perforation seen. IMPRESSION: 1. Study substantially limited due to lack of IV contrast. 2. Findings most compatible with ileus and probable infectious or inflammatory enteritis or enterocolitis. 3. Large low-attenuation pelvic fluid of uncertain significance, potentially reactive. 4. Appendix not identified. 5. Percutaneous gastrostomy tube adequately positioned in the stomach. Rectal tube. 6. Urinary bladder wall thickening could be incidental, due to high outlet pressures, or could represent cystitis. 7. Cholecystectomy. (3) GI bleed (4) G tube feedings Assessment & Plan: DAILY ESTIMATED NEEDS: Needs based on Underweight, critical care 37.3kg 30-40 kcals/kg 2955-7990 total kcals 1.25-2 g protein/kg 47-75 g total protein 25-35 mL/kg 933-1306 total fluid mLs NUTRITION DIAGNOSIS: Increased kcal and pro needs r/t underweight status as evidenced by BMI 14.1, pt is 68% of ideal body weight w/ generalized severe wasting, trach and peg dep. CURRENT TF:Vital AF 1.2 @55 x20 hrs ENTERAL NUTRITION RECOMMENDATIONS: Vital AF 1.2 @ 55ml/hr x20 hrs to provide 1100ml 1320kcal 83g prot, 892ml free water - Rec to continue elemental TF formula while stool C-diff positive, +LBM - HOLD 1HR BEFORE AND AFTER SYNTHROID MEDS - Flush per MD. HOB over 30 degrees ADDITIONAL RECOMMENDATIONS: 1) Per SNF: 5'4" and 81# Maintain calibrated bed scale wts w/ added P200 mattress 2) Lytes daily madhav w/ loose stools, replete as needed 3) Skin integrity: Continue BRIAN VIA GT BID + Vit C 4) Accuchecks for Hypoglycemia 5) Add probiotics for stool C-diff+ . George Woods Feb 15, 2020 12:15
[2020-02-15] MEDS: D5 1/2NS 1,000 ML IV SCH (12:19)
[2020-02-15 16:00] VITALS: BP 97/44
[2020-02-15 20:00] VITALS: BP 105/50
--- NOTE | 2020-02-15 20:32 | General Progress Note ---
Subjective Constitutional: Reports: no symptoms HEENT: Reports: no symptoms Cardiovascular: Reports: no symptoms Respiratory: Reports: no symptoms Gastrointestinal/Abdominal: Reports: no symptoms Genitourinary: Reports: no symptoms Neurologic/Psychiatric: Reports: no symptoms Hematologic/Lymphatic: Reports: no symptoms Allergies: Coded Allergies: CARBAMAZEPINE (Verified Allergy, Unknown, 12/31/19) LORAZEPAM (Verified Allergy, Unknown, 12/31/19) Objective Last 24 Hour Vital Signs Date Time Temp Pulse Resp B/P (MAP) Pulse Ox O2 Delivery O2 Flow Rate FiO2 02/15/20 19:40 74 16 28 02/15/20 16:00 98.2 65 20 97/44 (61) 100 02/15/20 16:00 35 02/15/20 16:00 Mechanical Ventilator 02/15/20 16:00 67 02/15/20 14:45 70 18 28 02/15/20 12:00 98.2 74 19 95/53 (67) 100 02/15/20 12:00 35 02/15/20 12:00 Mechanical Ventilator 02/15/20 11:46 67 02/15/20 10:35 70 18 28 02/15/20 08:00 77 02/15/20 08:00 35 02/15/20 08:00 Mechanical Ventilator 02/15/20 08:00 98.2 75 18 91/50 (64) 100 02/15/20 07:10 70 17 28 02/15/20 04:00 35 02/15/20 04:00 98.2 81 16 93/62 (72) 100 02/15/20 04:00 Mechanical Ventilator 02/15/20 04:00 98.2 81 16 93/62 (72) 100 02/15/20 03:30 72 15 28 02/15/20 03:30 76 02/15/20 00:00 98.8 72 20 120/63 (82) 100 02/15/20 00:00 Mechanical Ventilator 02/14/20 23:29 60 02/14/20 23:23 65 12 28 02/14/20 21:20 98.7 02/14/20 21:00 35 02/14/20 21:00 35 Intake and Output 02/14/20 02/15/20 19:00 07:00 Intake Total 1480 ml 1633.75 ml Balance 1480 ml 1633.75 ml Intake Free Water 160 ml 180 ml IV Total 825 ml 848.75 ml Tube Feeding 495 ml 605 ml # Voids 2 Laboratory Tests 02/14/20 22:21: POC Whole Blood Glucose 85 02/15/20 02:40: White Blood Count 10.6, Red Blood Count 2.98L, Hemoglobin 8.6L, Hematocrit 26.1L , Mean Corpuscular Volume 88, Mean Corpuscular Hemoglobin 29.0, Mean Corpuscular Hemoglobin Concent 33.0, Red Cell Distribution Width 14.6, Platelet Count 697H, Mean Platelet Volume 4.4L, Neutrophils (%) (Auto) 58.4, Lymphocytes (%) (Auto) 21.7, Monocytes (%) (Auto) 15.8H, Eosinophils (%) (Auto) 2.6, Basophils (%) (Auto) 1.5, Sodium Level 138, Potassium Level 4.4, Chloride Level 102, Carbon Dioxide Level 32, Anion Gap 4L, Blood Urea Nitrogen 12, Creatinine 0.4L, Estimat Glomerular Filtration Rate > 60, Glucose Level 81, Calcium Level 8.8, Phosphorus Level 3.8, Magnesium Level 1.9, Total Bilirubin 0.3, Aspartate Amino Transf (AST/SGOT) 68H, Alanine Aminotransferase (ALT/SGPT) 48, Alkaline Phosphatase 454H, Total Protein 6.4, Albumin 1.8L, Globulin 4.6, Albumin/Globulin Ratio 0.4L 02/15/20 05:27: POC Whole Blood Glucose 104 02/15/20 11:47: POC Whole Blood Glucose 99 02/15/20 18:20: POC Whole Blood Glucose [Pending] Height (Feet): 5 Height (Inches): 1.00 Weight (Pounds): 82 General Appearance: WD/WN, no apparent distress, alert EENT: normal ENT inspection Neck: supple Cardiovascular: normal rate, regular rhythm, no gallop/murmur, no JVD Respiratory/Chest: lungs clear, normal breath sounds, no respiratory distress, no accessory muscle use Abdomen: normal bowel sounds, soft, no organomegaly, no mass, other - Diarrhea resolved Extremities: non-tender Neurologic: alert, responsive, aphasia, other - But mostly indifferent Assessment/Plan Problem List: (1) Pneumonia ICD Codes: J18.9 - Pneumonia, unspecified organism SNOMED: 381782920 (2) Sepsis ICD Codes: A41.9 - Sepsis, unspecified organism SNOMED: 39715369 (3) GI bleed ICD Codes: K92.2 - Gastrointestinal hemorrhage, unspecified SNOMED: 96266663 (4) Anemia ICD Codes: D64.9 - Anemia, unspecified SNOMED: 880356678 (5) Seizure disorder ICD Codes: G40.909 - Epilepsy, unspecified, not intractable, without status epilepticus SNOMED: 782232280 (6) Malnutrition ICD Codes: E46 - Unspecified protein-calorie malnutrition SNOMED: 59636284 (7) Thrombocytopenia ICD Codes: D69.6 - Thrombocytopenia, unspecified SNOMED: 345372432 Status: stable, other - Patient is now hypotensive before over 46 she will receive 500 cc of normal saline bolus to be repeated blood pressure remained below 90 further management will be decided following the boluses treatment repeat laboratory tests will be done in a.m. GLENNY MCKAY MD Status Narrative As of today patient is awake alert afebrile hemodynamically stable. Having diarrhea now completely stopped since yesterday which was 1 of the criteria for home discharge and elected to be without She is still in midline but this may need to prevent her from scratching rather than from pulling out the thoracostomy or IV line. Patient is therefore will undergo chest x-ray CBC BMP in a.m. if all those are improved patient can be discharged to the new facility in which a bed was found for her GLENNY MCKAY MD Assessment/Plan: Glenny Guadarrama MD Feb 15, 2020 20:32
--- NOTE | 2020-02-15 22:52 | Cardiology Progress Note ---
Assessment/Plan Assessment/Plan 1. Septic shock, continue midodrine. 2. Sinus bradycardia, resolved. 3. Anemia of chronic disease. 4. Acute renal failure, resolved. 5. GI bleeding due to gastric ulceration. 6. Dysphagia, s/p PEG placement, s/p EGD. 7. VDRF, s/p tracheostomy tube placement. 8. Hypomagnesemia, Mg level at 1.9. Subjective Subjective Sinus rhythm at rate of 70. On the vent with FiO2 of 35%. Objective Last 24 Hour Vital Signs Date Time Temp Pulse Resp B/P (MAP) Pulse Ox O2 Delivery O2 Flow Rate FiO2 02/15/20 21:02 70 02/15/20 20:00 35 02/15/20 20:00 98.9 73 20 105/50 (68) 100 02/15/20 20:00 Mechanical Ventilator 02/15/20 19:40 74 16 28 02/15/20 16:00 98.2 65 20 97/44 (61) 100 02/15/20 16:00 35 02/15/20 16:00 Mechanical Ventilator 02/15/20 16:00 67 02/15/20 14:45 70 18 28 02/15/20 12:00 98.2 74 19 95/53 (67) 100 02/15/20 12:00 35 02/15/20 12:00 Mechanical Ventilator 02/15/20 11:46 67 02/15/20 10:35 70 18 28 02/15/20 08:00 77 02/15/20 08:00 35 02/15/20 08:00 Mechanical Ventilator 02/15/20 08:00 98.2 75 18 91/50 (64) 100 02/15/20 07:10 70 17 28 02/15/20 04:00 35 02/15/20 04:00 98.2 81 16 93/62 (72) 100 02/15/20 04:00 Mechanical Ventilator 02/15/20 04:00 98.2 81 16 93/62 (72) 100 02/15/20 03:30 72 15 28 02/15/20 03:30 76 02/15/20 00:00 98.8 72 20 120/63 (82) 100 02/15/20 00:00 Mechanical Ventilator 02/14/20 23:29 60 02/14/20 23:23 65 12 28 Intake and Output 02/14/20 02/15/20 19:00 07:00 Intake Total 1480 ml 1633.75 ml Balance 1480 ml 1633.75 ml Intake Free Water 160 ml 180 ml IV Total 825 ml 848.75 ml Tube Feeding 495 ml 605 ml # Voids 2 2D Echo: LVEF 65%, RVSP 23 mmHg, Grade I LVDD Laboratory Tests Test 02/15/20 02:40 02/15/20 05:27 02/15/20 11:47 02/15/20 18:20 White Blood Count 10.6 K/UL (4.8-10.8) Red Blood Count 2.98 M/UL (4.20-5.40) L Hemoglobin 8.6 G/DL (12.0-16.0) L Hematocrit 26.1 % (37.0-47.0) L Mean Corpuscular Volume 88 FL (80-99) Mean Corpuscular Hemoglobin 29.0 PG (27.0-31.0) Mean Corpuscular Hemoglobin Concent 33.0 G/DL (32.0-36.0) Red Cell Distribution Width 14.6 % (11.6-14.8) Platelet Count 697 K/UL (150-450) H Mean Platelet Volume 4.4 FL (6.5-10.1) L Neutrophils (%) (Auto) 58.4 % (45.0-75.0) Lymphocytes (%) (Auto) 21.7 % (20.0-45.0) Monocytes (%) (Auto) 15.8 % (1.0-10.0) H Eosinophils (%) (Auto) 2.6 % (0.0-3.0) Basophils (%) (Auto) 1.5 % (0.0-2.0) Sodium Level 138 MMOL/L (136-145) Potassium Level 4.4 MMOL/L (3.5-5.1) Chloride Level 102 MMOL/L (98-107) Carbon Dioxide Level 32 MMOL/L (21-32) Anion Gap 4 mmol/L (5-15) L Blood Urea Nitrogen 12 mg/dL (7-18) Creatinine 0.4 MG/DL (0.55-1.30) L Estimat Glomerular Filtration Rate > 60 mL/min (>60) Glucose Level 81 MG/DL (74-106) Calcium Level 8.8 MG/DL (8.5-10.1) Phosphorus Level 3.8 MG/DL (2.5-4.9) Magnesium Level 1.9 MG/DL (1.8-2.4) Total Bilirubin 0.3 MG/DL (0.2-1.0) Aspartate Amino Transf (AST/SGOT) 68 U/L (15-37) H Alanine Aminotransferase (ALT/SGPT) 48 U/L (12-78) Alkaline Phosphatase 454 U/L (46-116) H Total Protein 6.4 G/DL (6.4-8.2) Albumin 1.8 G/DL (3.4-5.0) L Globulin 4.6 g/dL Albumin/Globulin Ratio 0.4 (1.0-2.7) L POC Whole Blood Glucose 104 MG/DL (74-106) 99 MG/DL (74-106) Pending Objective HEENT: PERRLA, EOMI, +Trach tube. NECK: Cannot assess JVP, no carotid bruit with normal upstroke. LUNGS: Bilateral rhonchi. CARDIAC: Regular rhythm and rate. Normal S1, S2, no murmurs, gallops or rubs. ABDOMEN: Soft with G-tube. No hepatomegaly. EXTREMITIES: No edema, clubbing or cyanosis. Desmond Gleason MD Feb 15, 2020 22:52
[2020-02-16] VITALS: BP 92/73
[2020-02-16] MEDS: D5 1/2NS 1,000 ML IV SCH ×2 (00:26→15:21)
[2020-02-16] MEDS: Lomotil 2.5mg tab ORAL SCH ×3 (00:26→12:29)
[2020-02-16 03:21] LABS: BASOPHILS % (AUTO) 1.9 % (0.0-2.0); EOSINOPHILS % (AUTO) 1.9 % (0.0-3.0); HEMATOCRIT 27.1 % (37.0-47.0); HEMOGLOBIN 8.8 G/DL (12.0-16.0); LYMPHOCYTES % (AUTO) 20.8 % (20.0-45.0); MEAN CORPUSCULAR VOLUME 88 FL (80-99); MONOCYTES % (AUTO) 14.7 % (1.0-10.0); NEUTROPHILS % (AUTO) 60.7 % (45.0-75.0); PLATELET COUNT 717 K/UL (150-450); RED BLOOD COUNT 3.09 M/UL (4.20-5.40); RED CELL DISTRIBUTION WIDTH 14.7 % (11.6-14.8); WHITE BLOOD COUNT 11.4 K/UL (4.8-10.8)
[2020-02-16 04:00] VITALS: BP 96/58
--- NOTE | 2020-02-16 07:13 | Hematology/Onc Progress Note ---
Assessment/Plan Assessment/Plan # Anemia rule out underlying gi bleed --> Dr. Carrillo has been consulted-->endosco gastric ulceration --> trend hgb 7-->7.4-->7.9-->8.1->9.6-->8.5->9.1-->10-->11-->10.3-->10.4-->11->9.8-->7.4 ->9-->10.5-->9.1-->8.7-->8.4-->8.6-->8.7-->8.8 --> anemia panel ordered-->reviewed --> prn transfusion --> protonix started # Leukocytosis is likely related to pna on imaging --> abx has been started --> Abx vanc/zosyn--> ceftriaxone-->vanc->fluc/flagyl/va nc-->flagyl/fidoxomicin->vanc/cefepime/flagyl-->gentamcinflagyl->off --> smear is noted --> wbc 25-->15-->14-->16->7.6-->12-->20 ->13->11->14-->33-->16->8->11-->12->10.5-->19 --> pressors prn # Thrombocytopenia med related v labs error --> plt trend 167-->61-->227->373->457 --> meds have been reviewed --> no hep or lovenox # Sepsis --> on abx for pna --> pressors as needed --> fluids as per pcp for hypotension # Pneumonia --> pulm, Dr. 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 framing consultant care, will follow Subjective Constitutional: Denies: no symptoms, chills, fever, malaise, weakness, other HEENT: Denies: no symptoms, eye pain, blurred vision, tearing, double vision, ear pain, ear discharge, nose pain, nose congestion, throat pain, throat swelling, mouth pain, mouth swelling, other Cardiovascular: Denies: no symptoms, chest pain, edema, irregular heart rate, lightheadedness, palpitations, syncope, other Respiratory: Denies: no symptoms, cough, shortness of breath, SOB with excertion, SOB at rest, sputum, wheezing, other Gastrointestinal/Abdominal: Denies: no symptoms, abdomen distended, abdominal pain, black stools, tarry stools, blood in stool, constipated, diarrhea, difficulty swallowing, nausea, poor appetite, poor fluid intake, rectal bleeding, vomiting, other Genitourinary: Denies: no symptoms, burning, discharge, frequency, flank pain, hematuria, incontinence, pain, urgency, other Endocrine: Denies: no symptoms, excessive sweating, flushing, intolerance to cold, intolerance to heat, increased hunger, increased thirst, increased urine, unexplained weight gain, unexplained weight loss, other Hematologic/Lymphatic: Denies: no symptoms, anemia, easy bleeding, easy bruising, adenopathy, other Allergies: Coded Allergies: CARBAMAZEPINE (Verified Allergy, Unknown, 12/31/19) LORAZEPAM (Verified Allergy, Unknown, 12/31/19) Subjective 01/01 altered, trach, no bleedin wbc improved on abx, seen by gi 01/02 egd study noted, also with plts 61k, have vitaly Armendariz Rn, will recheck cbc 01/03 remains agitated, vitaly rn, no bleeding, cbc noted as well as id recs 01/04 on vent, with melena overnight, no bleeding, vitaly rn, labs reviewed 01/06 on vent, remains agitated, no bleeding, vitaly longoria, smear is noted 01/07 on vent, restless, asymptomatic, noncooperative 01/[address] John obtained, reviewed, meds adjusted, eeg pending 01/09 labs noted, no bleeding, ativan has been discontinued, meds reviewed 01/10 trach to vent, agitated, with wrist restraints, no major changes, no bleeding 01/11 labs are reviewed, on trach to vent, no bleeding, agitated overnight, no complaints 01/13 labs noted, no bleeding, is on vent/trach, no bleeding, vitaly rn, labs are noted 01/14 labs are noted, no bleeding, remains on v/t, remains agitated, no bleeding 01/15 is c.diff positive, wbc higher at 21k, labs noted, on abx, reviewed gi, id recs 01/16 remains on vent, wbc is improved, in sr, as abx per id 01/17 recieved dopamine, tube feeds, on soft restraints, no bleeding, vitaly rn 01/18 labs are noted, no bleeding, vitaly rn, no major changes 01/20 on dopamine gtt, with restraints, no major changes, labs noted 01/21 labs reviewed, no bleeding, vitaly rn, no major changes 01/22 transferred to icu for higher loc, dopamine on hold as bp is good, have increased Synthroid 01/23 labs are pending, meds noted, no bleeding, dopamine gtt ongoing, cbc noted 01/24 still nv, no bleeding, labs reviewed, vitaly rn, with rectal tube in place, on dopamine gtt 01/25 is on bipap, nv, no bleeding, remains on low dose pressorm hgb 11 01/27 on dopamine, hr was elevated overnight, cards aware 01/28 on vent, with ivfs running, rectal tube with red blood noted, consider gi eval 01/29 on vent, labs reviewed, wbc 22, hgb 8.4, on abx currently, vanc/flagyl/cefepime 02/02 labs reviewed, no bleeding, on vent, no night sweats, wbc improved 02/03 is on gtube feeds, with trach to vent, oxygen as needed, labs wbc better 02/04 nv, is on gt, on vent, no bleeding, labs are noted, guarded prognosis 02/05 labs are noted, nv, is on gt feeds, no bleeding, abx as needed 02/06 labs reviewed, is on tube feeds, on vent, nv, no bleeding 02/07 labs are noted, no bleeding, trach/to vent, wth gtube, meds reviewed 02/08 very agitated, no bleeding, med noted, no night sweats, in restraints 02/10 off dopamine currently, labs reviewed, overnight agitated 02/12 still agitated overnight, cbc has been reordered recent hgb reviewed 02/13 labs reviewed, is on ivfs, meds noted, no bleeding, vitaly rn, hgb 8.7 02/14 labs reviewed, on vent, and rectal tube, meds noted 02/15 remains on vent, gtube feeds, labs are noted, hgb 8.8 Objective Objective Current Medications Medications (Trade) Dose Ordered Sig/Villa Route PRN Reason Start Time Stop Time Status Last Admin Dose Admin Acetaminophen (Tylenol) 650 mg Q4H PRN GT Temp >100.5 02/01/20 20:30 03/02/20 20:29 02/14/20 20:50 Ascorbic Acid (Vitamin C) 500 mg DAILY GT 01/28/20 09:30 02/27/20 09:29 02/15/20 09:51 Clonazepam (KlonoPIN) 1 mg EVERY 8 HOURS GT 02/14/20 14:00 02/21/20 13:59 02/16/20 05:12 Dextrose/Sodium Chloride 1,000 ml @ 75 mls/hr [id number] IV 01/29/20 13:00 02/27/20 12:59 02/16/20 00:26 Diphenoxylate HCl/ Atropine (Lomotil) 2.5 mg Q6HR ORAL 02/14/20 15:00 02/16/20 14:59 02/16/20 05:12 Famotidine (Pepcid I.v.) 20 mg Q12HR IVP 01/29/20 21:00 02/28/20 20:59 02/15/20 21:14 Gabapentin (Neurontin) 900 mg TID GT 01/28/20 09:30 02/19/20 09:29 02/15/20 18:25 Midodrine (Pro-Amatine) 10 mg TID GT 02/07/20 18:00 04/21/20 17:59 02/15/20 18:25 Multivitamins (Multivitamins W/ Minerals 15ml Liquid) 15 ml DAILY GT 01/28/20 09:30 02/27/20 09:29 02/15/20 09:50 Pantoprazole (Protonix) 40 mg EVERY 12 HOURS IVP 01/31/20 09:30 03/01/20 09:29 02/15/20 21:14 Potassium Chloride (K-Dur) 40 meq TWICE A DAY ORAL 02/02/20 18:00 05/02/20 17:59 02/15/20 18:25 Sucralfate (Carafate) 1 gm FOUR TIMES A DAY ORAL 01/30/20 09:00 04/29/20 08:59 02/15/20 21:14 Thiamine HCl (Vitamin B1) 100 mg DAILY GT 01/28/20 09:30 02/27/20 09:29 02/15/20 09:51 Last 24 Hour Vital Signs Date Time Temp Pulse Resp B/P (MAP) Pulse Ox O2 Delivery O2 Flow Rate FiO2 02/16/20 04:00 35 02/16/20 04:00 Mechanical Ventilator 02/16/20 04:00 98.0 68 18 96/58 (71) 100 02/16/20 03:28 72 02/16/20 03:05 72 17 28 02/16/20 00:00 Mechanical Ventilator 02/16/20 00:00 98.2 62 20 92/73 (79) 100 02/16/20 00:00 61 02/15/20 23:20 60 14 28 02/15/20 21:02 70 02/15/20 20:00 35 02/15/20 20:00 98.9 73 20 105/50 (68) 100 02/15/20 20:00 Mechanical Ventilator 02/15/20 19:40 74 16 28 02/15/20 16:00 98.2 65 20 97/44 (61) 100 02/15/20 16:00 35 02/15/20 16:00 Mechanical Ventilator 02/15/20 16:00 67 02/15/20 14:45 70 18 28 02/15/20 12:00 98.2 74 19 95/53 (67) 100 02/15/20 12:00 35 02/15/20 12:00 Mechanical Ventilator 02/15/20 11:46 67 02/15/20 10:35 70 18 28 02/15/20 08:00 77 02/15/20 08:00 35 02/15/20 08:00 Mechanical Ventilator 02/15/20 08:00 98.2 75 18 91/50 (64) 100 02/15/20 07:10 70 17 28 02/15/20 04:00 35 02/15/20 04:00 98.2 81 16 93/62 (72) 100 02/15/20 04:00 Mechanical Ventilator 02/15/20 04:00 98.2 81 16 93/62 (72) 100 02/15/20 03:30 72 15 28 02/15/20 03:30 76 02/15/20 00:00 98.8 72 20 120/63 (82) 100 02/15/20 00:00 Mechanical Ventilator 02/14/20 23:29 60 02/14/20 23:23 65 12 28 02/14/20 21:20 98.7 02/14/20 21:00 35 02/14/20 21:00 35 02/14/20 20:00 99.1 67 19 92/68 (76) 100 02/14/20 20:00 Mechanical Ventilator 02/14/20 19:35 65 15 28 02/14/20 19:02 65 02/14/20 16:00 Mechanical Ventilator 02/14/20 16:00 35 02/14/20 16:00 65 02/14/20 16:00 98.1 76 21 109/52 (71) 99 02/14/20 15:00 66 15 28 02/14/20 12:00 97.9 64 18 116/65 (82) 100 02/14/20 12:00 Mechanical Ventilator 02/14/20 12:00 64 02/14/20 12:00 35 02/14/20 11:10 64 12 28 02/14/20 09:36 63 17 28 02/14/20 08:00 79 02/14/20 08:00 Mechanical Ventilator 02/14/20 08:00 35 02/14/20 08:00 97.9 72 22 104/58 (73) 100 Intake and Output 02/15/20 02/16/20 19:00 07:00 Intake Total 1645 ml 1475 ml Balance 1645 ml 1475 ml Intake Free Water 260 ml 150 ml IV Total 825 ml 720 ml Tube Feeding 440 ml 605 ml Other 120 ml # Voids 2 # Bowel Movements 1 3 Labs Test 02/13/20 12:56 02/13/20 18:46 02/14/20 02:02 02/14/20 02:55 POC Whole Blood Glucose 86 MG/DL (74-106) 86 MG/DL (74-106) White Blood Count 10.5 K/UL (4.8-10.8) Red Blood Count 3.05 M/UL (4.20-5.40) Hemoglobin 8.7 G/DL (12.0-16.0) Hematocrit 26.9 % (37.0-47.0) Mean Corpuscular Volume 88 FL (80-99) Mean Corpuscular Hemoglobin 28.6 PG (27.0-31.0) Mean Corpuscular Hemoglobin Concent 32.4 G/DL (32.0-36.0) Red Cell Distribution Width 14.7 % (11.6-14.8) Platelet Count 722 K/UL (150-450) Mean Platelet Volume 3.9 FL (6.5-10.1) Neutrophils (%) (Auto) 57.7 % (45.0-75.0) Lymphocytes (%) (Auto) 23.0 % (20.0-45.0) Monocytes (%) (Auto) 15.0 % (1.0-10.0) Eosinophils (%) (Auto) 3.0 % (0.0-3.0) Basophils (%) (Auto) 1.4 % (0.0-2.0) Test 02/14/20 05:55 02/14/20 12:36 02/14/20 17:32 02/14/20 22:21 POC Whole Blood Glucose 113 MG/DL (74-106) 85 MG/DL (74-106) 96 MG/DL (74-106) 85 MG/DL (74-106) Test 02/15/20 02:40 02/15/20 05:27 02/15/20 11:47 02/15/20 18:20 White Blood Count 10.6 K/UL (4.8-10.8) Red Blood Count 2.98 M/UL (4.20-5.40) Hemoglobin 8.6 G/DL (12.0-16.0) Hematocrit 26.1 % (37.0-47.0) Mean Corpuscular Volume 88 FL (80-99) Mean Corpuscular Hemoglobin 29.0 PG (27.0-31.0) Mean Corpuscular Hemoglobin Concent 33.0 G/DL (32.0-36.0) Red Cell Distribution Width 14.6 % (11.6-14.8) Platelet Count 697 K/UL (150-450) Mean Platelet Volume 4.4 FL (6.5-10.1) Neutrophils (%) (Auto) 58.4 % (45.0-75.0) Lymphocytes (%) (Auto) 21.7 % (20.0-45.0) Monocytes (%) (Auto) 15.8 % (1.0-10.0) Eosinophils (%) (Auto) 2.6 % (0.0-3.0) Basophils (%) (Auto) 1.5 % (0.0-2.0) Sodium Level 138 MMOL/L (136-145) Potassium Level 4.4 MMOL/L (3.5-5.1) Chloride Level 102 MMOL/L (98-107) Carbon Dioxide Level 32 MMOL/L (21-32) Anion Gap 4 mmol/L (5-15) Blood Urea Nitrogen 12 mg/dL (7-18) Creatinine 0.4 MG/DL (0.55-1.30) Estimat Glomerular Filtration Rate > 60 mL/min (>60) Glucose Level 81 MG/DL (74-106) Calcium Level 8.8 MG/DL (8.5-10.1) Phosphorus Level 3.8 MG/DL (2.5-4.9) Magnesium Level 1.9 MG/DL (1.8-2.4) Total Bilirubin 0.3 MG/DL (0.2-1.0) Aspartate Amino Transf (AST/SGOT) 68 U/L (15-37) Alanine Aminotransferase (ALT/SGPT) 48 U/L (12-78) Alkaline Phosphatase 454 U/L (46-116) Total Protein 6.4 G/DL (6.4-8.2) Albumin 1.8 G/DL (3.4-5.0) Globulin 4.6 g/dL Albumin/Globulin Ratio 0.4 (1.0-2.7) POC Whole Blood Glucose 104 MG/DL (74-106) 99 MG/DL (74-106) Test 02/16/20 00:22 02/16/20 03:04 02/16/20 04:46 White Blood Count 11.4 K/UL (4.8-10.8) Red Blood Count 3.09 M/UL (4.20-5.40) Hemoglobin 8.8 G/DL (12.0-16.0) Hematocrit 27.1 % (37.0-47.0) Mean Corpuscular Volume 88 FL (80-99) Mean Corpuscular Hemoglobin 28.6 PG (27.0-31.0) Mean Corpuscular Hemoglobin Concent 32.6 G/DL (32.0-36.0) Red Cell Distribution Width 14.7 % (11.6-14.8) Platelet Count 717 K/UL (150-450) Mean Platelet Volume 4.6 FL (6.5-10.1) Neutrophils (%) (Auto) 60.7 % (45.0-75.0) Lymphocytes (%) (Auto) 20.8 % (20.0-45.0) Monocytes (%) (Auto) 14.7 % (1.0-10.0) Eosinophils (%) (Auto) 1.9 % (0.0-3.0) Basophils (%) (Auto) 1.9 % (0.0-2.0) POC Whole Blood Glucose 110 MG/DL (74-106) Height (Feet): 5 Height (Inches): 1.00 Weight (Pounds): 82 Objective Vital Signs General Appearance: ++ cachectic, chronically ill HEENT: normocephalic, atraumatic ++ trach Resp: other -. vent ++ Cardiovascular: regular rate, rhythm, no edema Gastrointestinal: gtube in place, without erythema Rectal: other - Hemoccult positive [place]: back normal, gait/station normal, non-tender Lymphatic: no adenopathy Baltazar Cortes MD Feb 16, 2020 07:13
[2020-02-16 08:00] VITALS: BP 92/53
[2020-02-16] MEDS: Multivitamins W/Minerals 15 ML UDC GT SCH (08:24)
[2020-02-16] MEDS: Gabapentin 300 MG/6 ML Soln GT SCH ×3 (08:24→17:47)
[2020-02-16] MEDS: Sucralfate 1gm tab ORAL SCH ×4 (08:25→20:51)
[2020-02-16] MEDS: Pantoprazole Inj IVP SCH ×2 (08:25→20:51)
[2020-02-16] MEDS: Thiamine 100mg tab GT SCH (08:26)
[2020-02-16] MEDS: Ascorbic Acid 500mg tab GT SCH (08:26)
[2020-02-16] MEDS: Midodrine 10mg tab GT SCH ×3 (08:26→17:47)
--- NOTE | 2020-02-16 09:50 | General Progress Note ---
Subjective ROS Limited/Unobtainable: No Allergies: Coded Allergies: CARBAMAZEPINE (Verified Allergy, Unknown, 12/31/19) LORAZEPAM (Verified Allergy, Unknown, 12/31/19) Objective Last 24 Hour Vital Signs Date Time Temp Pulse Resp B/P (MAP) Pulse Ox O2 Delivery O2 Flow Rate FiO2 02/16/20 07:11 70 19 28 02/16/20 04:00 35 02/16/20 04:00 Mechanical Ventilator 02/16/20 04:00 98.0 68 18 96/58 (71) 100 02/16/20 03:28 72 02/16/20 03:05 72 17 28 02/16/20 00:00 Mechanical Ventilator 02/16/20 00:00 98.2 62 20 92/73 (79) 100 02/16/20 00:00 61 02/15/20 23:20 60 14 28 02/15/20 21:02 70 02/15/20 20:00 35 02/15/20 20:00 98.9 73 20 105/50 (68) 100 02/15/20 20:00 Mechanical Ventilator 02/15/20 19:40 74 16 28 02/15/20 16:00 98.2 65 20 97/44 (61) 100 02/15/20 16:00 35 02/15/20 16:00 Mechanical Ventilator 02/15/20 16:00 67 02/15/20 14:45 70 18 28 02/15/20 12:00 98.2 74 19 95/53 (67) 100 02/15/20 12:00 35 02/15/20 12:00 Mechanical Ventilator 02/15/20 11:46 67 02/15/20 10:35 70 18 28 Intake and Output 02/15/20 02/16/20 19:00 07:00 Intake Total 1645 ml 1475 ml Balance 1645 ml 1475 ml Intake Free Water 260 ml 150 ml IV Total 825 ml 720 ml Tube Feeding 440 ml 605 ml Other 120 ml # Voids 2 # Bowel Movements 1 3 Laboratory Tests 02/15/20 11:47: POC Whole Blood Glucose 99 02/15/20 18:20: POC Whole Blood Glucose [Pending] 02/16/20 00:22: POC Whole Blood Glucose [Pending] 02/16/20 03:04: White Blood Count 11.4H, Red Blood Count 3.09L, Hemoglobin 8.8L, Hematocrit 27.1L, Mean Corpuscular Volume 88, Mean Corpuscular Hemoglobin 28.6, Mean Corpuscular Hemoglobin Concent 32.6, Red Cell Distribution Width 14.7, Platelet Count 717H, Mean Platelet Volume 4.6L, Neutrophils (%) (Auto) 60.7, Lymphocytes (%) (Auto) 20.8, Monocytes (%) (Auto) 14.7H, Eosinophils (%) (Auto) 1.9, Basophils (%) (Auto) 1.9 02/16/20 04:46: POC Whole Blood Glucose 110H Height (Feet): 5 Height (Inches): 1.00 Weight (Pounds): 82 General Appearance: no apparent distress EENT: normal ENT inspection Neck: supple Cardiovascular: normal rate Respiratory/Chest: decreased breath sounds Abdomen: normal bowel sounds, non tender, soft Extremities: non-tender Assessment/Plan Problem List: (1) G tube feedings ICD Codes: Z93.1 - Gastrostomy status SNOMED: 439164841, 501308388, 181927827 (2) GI bleed ICD Codes: K92.2 - Gastrointestinal hemorrhage, unspecified SNOMED: 51422465 (3) Sepsis ICD Codes: A41.9 - Sepsis, unspecified organism SNOMED: 02894845 (4) Pneumonia ICD Codes: J18.9 - Pneumonia, unspecified organism SNOMED: 872737539 Status: stable, other - Patient is now hypotensive before over 46 she will receive 500 cc of normal saline bolus to be repeated blood pressure remained below 90 further management will be decided following the boluses treatment repeat laboratory tests will be done in a.jagdeep MCKAY MD Assessment/Plan: s/p EGD gastric ulcer monitor H&H C. Diff positive>> now neg GTF prn imodium ppi will fu Satish Carrillo MD Feb 16, 2020 09:50
--- NOTE | 2020-02-16 10:16 | Pulmonology Progress Note ---
MorganIvanna [facility] [employer] [facility] 02/16/20 1016: Subjective ROS Limited/Unobtainable: Yes Allergies: Coded Allergies: CARBAMAZEPINE (Verified Allergy, Unknown, 12/31/19) LORAZEPAM (Verified Allergy, Unknown, 12/31/19) Subjective in JULIANA no signs of resp distress on current vent settings on Midodrine, off Dopamine gtt mild leuk this am, remains afebrile CXR 02/09 - no definite infiltrate repeated venous Duplex BLE NGT dc plan in progress Objective Last 24 Hour Vital Signs Date Time Temp Pulse Resp B/P (MAP) Pulse Ox O2 Delivery O2 Flow Rate FiO2 02/16/20 07:11 70 19 28 02/16/20 04:00 35 02/16/20 04:00 Mechanical Ventilator 02/16/20 04:00 98.0 68 18 96/58 (71) 100 02/16/20 03:28 72 02/16/20 03:05 72 17 28 02/16/20 00:00 Mechanical Ventilator 02/16/20 00:00 98.2 62 20 92/73 (79) 100 02/16/20 00:00 61 02/15/20 23:20 60 14 28 02/15/20 21:02 70 02/15/20 20:00 35 02/15/20 20:00 98.9 73 20 105/50 (68) 100 02/15/20 20:00 Mechanical Ventilator 02/15/20 19:40 74 16 28 02/15/20 16:00 98.2 65 20 97/44 (61) 100 02/15/20 16:00 35 02/15/20 16:00 Mechanical Ventilator 02/15/20 16:00 67 02/15/20 14:45 70 18 28 02/15/20 12:00 98.2 74 19 95/53 (67) 100 02/15/20 12:00 35 02/15/20 12:00 Mechanical Ventilator 02/15/20 11:46 67 02/15/20 10:35 70 18 28 Intake and Output 02/15/20 02/16/20 19:00 07:00 Intake Total 1645 ml 1475 ml Balance 1645 ml 1475 ml Intake Free Water 260 ml 150 ml IV Total 825 ml 720 ml Tube Feeding 440 ml 605 ml Other 120 ml # Voids 2 # Bowel Movements 1 3 Objective General Appearance: bedridden, pale, chronically ill looking, older than her biological age ; vent dependent female ; on vent SIMV 450-30%-12, PEEP 5 Lines, tubes and drains: trach HEENT: normocephalic, atraumatic Neck: trach - Portex #7, secretions small amount, yellow color, thin consistency Respiratory/Chest: CTAB Cardiovascular/Chest: regular rate, regular rhythm Abdomen: non tender, soft, G tube , Genitourinary/Rectal: [place] Extremities: no edema, muscle atrophy Neurologic: abnormal gait, awake, poorly responsive Musculoskeletal: atrophy BLE Skin: multiple tattoos Laboratory Tests 02/15/20 11:47: POC Whole Blood Glucose 99 02/15/20 18:20: POC Whole Blood Glucose [Pending] 02/16/20 00:22: POC Whole Blood Glucose [Pending] 02/16/20 03:04: White Blood Count 11.4H, Red Blood Count 3.09L, Hemoglobin 8.8L, Hematocrit 27.1L, Mean Corpuscular Volume 88, Mean Corpuscular Hemoglobin 28.6, Mean Corpuscular Hemoglobin Concent 32.6, Red Cell Distribution Width 14.7, Platelet Count 717H, Mean Platelet Volume 4.6L, Neutrophils (%) (Auto) 60.7, Lymphocytes (%) (Auto) 20.8, Monocytes (%) (Auto) 14.7H, Eosinophils (%) (Auto) 1.9, Basophils (%) (Auto) 1.9 02/16/20 04:46: POC Whole Blood Glucose 110H Current Medications Medications (Trade) Dose Ordered Sig/Villa Route PRN Reason Start Time Stop Time Status Last Admin Dose Admin Acetaminophen (Tylenol) 650 mg Q4H PRN GT Temp >100.5 02/01/20 20:30 03/02/20 20:29 02/14/20 20:50 Ascorbic Acid (Vitamin C) 500 mg DAILY GT 01/28/20 09:30 02/27/20 09:29 02/16/20 08:26 Clonazepam (KlonoPIN) 1 mg EVERY 8 HOURS GT 02/14/20 14:00 02/21/20 13:59 02/16/20 05:12 Dextrose/Sodium Chloride 1,000 ml @ 75 mls/hr [id number] IV 01/29/20 13:00 02/27/20 12:59 02/16/20 00:26 Diphenoxylate HCl/ Atropine (Lomotil) 2.5 mg Q6HR ORAL 02/14/20 15:00 02/16/20 14:59 02/16/20 05:12 Famotidine (Pepcid I.v.) 20 mg Q12HR IVP 01/29/20 21:00 02/28/20 20:59 02/16/20 08:27 Gabapentin (Neurontin) 900 mg TID GT 01/28/20 09:30 02/19/20 09:29 02/16/20 08:24 Midodrine (Pro-Amatine) 10 mg TID GT 02/07/20 18:00 04/21/20 17:59 02/16/20 08:26 Multivitamins (Multivitamins W/ Minerals 15ml Liquid) 15 ml DAILY GT 01/28/20 09:30 02/27/20 09:29 02/16/20 08:24 Pantoprazole (Protonix) 40 mg EVERY 12 HOURS IVP 01/31/20 09:30 03/01/20 09:29 02/16/20 08:25 Potassium Chloride (K-Dur) 40 meq TWICE A DAY ORAL 02/02/20 18:00 05/02/20 17:59 02/16/20 08:25 Sucralfate (Carafate) 1 gm FOUR TIMES A DAY ORAL 01/30/20 09:00 04/29/20 08:59 02/16/20 08:25 Thiamine HCl (Vitamin B1) 100 mg DAILY GT 01/28/20 09:30 02/27/20 09:29 02/16/20 08:26 Assessment/Plan Assessment/Plan ASSESSMENT VDRF/trach status Sepsis Possible pneumonia UTI recurrent GI bleeding severe C dif colitis Anemia secondary to GI bleeding Aspiration risk Dysphagia, feeding by G-tube Encephalopathy Acute kidney injury likely secondary to dehydration Recurrent bradycardia persistent Hypotension Electrolyte imbalance Severe protein calorie malnutrition Hx of hypertension History of CVA Seizure disorder with witnessed seizure episode 01/07 Psychiatric disorder Presumed scabies, s/p Rx Thrombocytopenia-transient- resolved PLAN OF CARE JULIANA off Dopamine gtt, BP better with Midodrine only on IVF, vent support, pulm toilet ABG stable on current settings on SIMV mode 450-30-12 PEEP5 , no signs of resp distress on these settings keep settings as is and titrate as needed CXR 01/27 no acute disease pulm toilet via N CT chest 01/28 - with tree-in-bud nodular opacities in the medial left base and lingula with left bronchial bubbly material suggesting infectious or inflammatory bronchiolitis, likely due to aspiration. Small amount of similar foci seen in the right posterior lower lobe. Mild bronchiectasis and reticulation in the lingula, medial left base, and superior left upper lobe could also be due to chronic infection. CXR 02/01 -Interval development of retrocardiac airspace opacities which could represent atelectasis versus developing consolidation. probably ATX , given no fevers, resolved leukocytosis, no resp distress on current settings CXR 02/04 Bilateral mostly interstitial opacities; suspect largely chronic although there may be an acute component at the left lung base. The latter does appear somewhat improved since the previous exam. CXR 02/09 -> no definite infiltrate pancx-per ID CXR 01/13- no acute findings KUB 01/13- no acute findings UA + yeast , 01/12 UCX +yeast, started on Fluconazole 01/14 as per ID -completed BCX 01/12 NGTD BCX 01/26 and 01/27 NGTD Vanco po was prior dc and switched to Dificid , also on Flagyl per GI -till 01/28 , both extended till , completed inflammatory markers : ESR-42, CRP- wnl WBC smear NGT C dif a/b 01/30 NGT less output from rectal tube UCX 01/27 + Klebs CR- started on Gent per ID recs given prior leukocytosis and fevers SCX 02/02 + Serratia,Pseudomonas abx as per ID recs , Gent completed 02/10 ( prior extended for 3 days given mild leuk and fever), mild leuk this am ; no fevers CXR 02/09 no significant findings, no definite infiltrate CT C/ A/P noted ( see results of CT chest above), CT A/P with findings most compatible with ileus and probable infectious or inflammatory enteritis or enterocolitis. off cefepime rapid COVID 19 NGT in ED aspiration precautions Venous Duplex BLE -negative, get SCD ( unable to give a/c given anemia) closely monitor hemodynamic status repeated Venous Duplex BLE NGT heme and GI follows s/p prior EGD 01/01 -> gastric ulcer across G tube site , no active bleeding s/p EGD 01/30 -> gastric ulceration without visible bleeding Protonix IV bid ( changed from Protonix gtt), Carafate GT feeding resumed as per GI , s/p blood tx 01/30 stool OB positive , another pending transfuse to keep Hgb > 7. HH at baseline trend LFT-> trended down, hep panel NGT hx of cirrhosis- per GI management monitor renal parameters, lytes, avoid nephrotoxic IVF BUN trending down, creat stable, likely prerenal due to dehydration replace e/lytes as per nephro recs , monitor volumes seizure precautions, antiepileptic optimized as per neuro recs ammonia 49, fup with further neuro recs EEG - grossly abnormal; mild to mod encephalopathy, single ictal episode CT head no acute IC pathology BP management with current regimen SNF meds supportive care dietary recs s/p 12/31 Rx for presumed scabies with permethrin and Ivermectin, repeated Ivermectin 01/08 dc plan for today as per primary case discussed and evaluated by supervising physician Raul Esparza MD 02/16/20 1233: Subjective Allergies: Coded Allergies: CARBAMAZEPINE (Verified Allergy, Unknown, 12/31/19) LORAZEPAM (Verified Allergy, Unknown, 12/31/19) Assessment/Plan Assessment/Plan Patient seen and examined with [facility]. Agree with above A&P as it reflects our joint deliberations. Ivanna Mora NP Feb 16, 2020 10:16 Raul Esparza MD Feb 16, 2020 12:33
--- NOTE | 2020-02-16 10:49 | Infectious Diseases Prog Note ---
Assessment/Plan 39yo F with: Severe Sepsis Fever, recurrent; SP Leukocytosis; recurrent; mild UTI -02/04 CXR: Bilateral mostly interstitial opacities; suspect largely chronic althoughthere may be an acute component at the left lung base. The latter does appear somewhat improved since the previous exam. -02/02 sp cx S. marcences (R ancef, CTX, mami; I Levo; S Genta, Ceftazidime, Cefepime, bactrim), GNR #2 -02/01 CXR: Interval development of retrocardiac airspace opacities which could represent atelectasis versus developing consolidation. u/a wbc 5-10, nit neg, leuk +2; -01/28 CXR: Subtle reticular nodular opacities in the left apex which may be related to scarring versus acute small airway disease/bronchitis CT c/abd/p wo: Study substantially limited due to lack of IV contrast. Findings most compatible with ileus and probable infectious or inflammatory enteritis or enterocolitis. Large low-attenuation pelvic fluid of uncertain significance, potentially reactive.Appendix not identified. Percutaneous gastrostomy tube adequately positioned in the stomach. Rectal tube. Urinary bladder wall thickening could be incidental, due to high outlet pressures, or could represent cystitis.Cholecystectomy. -01/27 u/a no pyuria, nit +, leuk +3; ucx >100k CRE K, pna (S Gentamycin), P . miriabilis, MDR P, fluorensces (I Gentamycin) CXR: no acute disease Bc xNTD -01/26 Bcx Neg -01/13 CXR: no acute disease -01/12 u/a wbc tnct, nit neg, latrell +3; ucx >100k C. tropicalis Bcx NTD Severe Cdiff colitis -01/30 Cdif toxin a/b neg -01/06 Cdif toxin + 01/27 KUB:Severely dilated small bowel loop in the central abdomen could reflect obstruction. Diffusely fluid distended colon. -01/13 KUB: no acute findings Recurrent GIB 01/06 u/aneg 12/30 BCx 1/2 +CONS, likely contaminant 12/30 UA neg, COVID rapid Ag neg 12/30 CXR 1. Density overlying the bilateral lung apices. May represent pleural thickening, multifocal airspace opacities, versus summation artifact. 01/01 BCx Neg 01/02 BCx Neg Acute blood loss anemia Possible pna on CXR, sp rx Seizure episode -01/10 CT head: Third and lateral ventriculomegaly. Associated enlargement of the extra axial CSF spaces indicates that this is probably due to central volume loss, but the possibility of hydrocephalus should also be considered. At the degree of volume loss is considerably out of proportion to patient's age. Periventricular deep white matter low-attenuation. Probably on the basis of microvascular ischemic change but given patient's age the possibility of demyelinating disease should be considered as well. Negative for acute intracranial bleed or mass effect Possible Scabies SP tx w/ Permethrin and Ivermectin 12/31 R/o DVT: None on US 12/30 MRSA nares neg Recurrent GIBs, FOBT+ Hepatic encephalopathy, chronic S/p Trach/PEG Resides at [facility] and CRE colonized Plan: Cont to monitor off abx Will be watching the WBCs 02/10/20 SP Gentamicin #10/10 for UTI given recurrent fever and leukocytosis 02/04 SP Dificid #21, Flagyl #21 01/30 SP Cefepime #4 01/29 SP IV Vancomycin #3 01/19/20 SP fluconazole #5 01/15 SP PO Vancomycin #8 01/08 SP Ceftriaxone #7 01/02 SP vanco #2, Zosyn #2 SP 2nd dose of ivermectin (01/08) Monitor CBC/CMP Monitor resp status Monitor temp and hemodynamics f/u repaet cultures GI, Gen sx, pulm f/u D/w RN Thank you for this consult. [facility] will continue to follow. Subjective Allergies: Coded Allergies: CARBAMAZEPINE (Verified Allergy, Unknown, 12/31/19) LORAZEPAM (Verified Allergy, Unknown, 12/31/19) Afebrile Mild Leukocytosis Satting well on Vent Objective Last 24 Hour Vital Signs Date Time Temp Pulse Resp B/P (MAP) Pulse Ox O2 Delivery O2 Flow Rate FiO2 02/16/20 08:00 Mechanical Ventilator 02/16/20 08:00 97.8 67 20 92/53 (66) 100 02/16/20 08:00 35 02/16/20 07:11 70 19 28 02/16/20 04:00 35 02/16/20 04:00 Mechanical Ventilator 02/16/20 04:00 98.0 68 18 96/58 (71) 100 02/16/20 03:28 72 02/16/20 03:05 72 17 28 02/16/20 00:00 Mechanical Ventilator 02/16/20 00:00 98.2 62 20 92/73 (79) 100 02/16/20 00:00 61 02/15/20 23:20 60 14 28 02/15/20 21:02 70 02/15/20 20:00 35 02/15/20 20:00 98.9 73 20 105/50 (68) 100 02/15/20 20:00 Mechanical Ventilator 02/15/20 19:40 74 16 28 02/15/20 16:00 98.2 65 20 97/44 (61) 100 02/15/20 16:00 35 02/15/20 16:00 Mechanical Ventilator 02/15/20 16:00 67 02/15/20 14:45 70 18 28 02/15/20 12:00 98.2 74 19 95/53 (67) 100 02/15/20 12:00 35 02/15/20 12:00 Mechanical Ventilator 02/15/20 11:46 67 Height (Feet): 5 Height (Inches): 1.00 Weight (Pounds): 82 GEN: NAD, On Vent, Not following HEENT: NCAT, MMM, EOMI Pulm: Equal chest rise and fall B/L, NO accessory muscle use ABD: Soft, ND Laboratory Tests Test 02/15/20 11:47 02/15/20 18:20 02/16/20 00:22 02/16/20 03:04 POC Whole Blood Glucose 99 MG/DL (74-106) Pending Pending White Blood Count 11.4 K/UL (4.8-10.8) H Red Blood Count 3.09 M/UL (4.20-5.40) L Hemoglobin 8.8 G/DL (12.0-16.0) L Hematocrit 27.1 % (37.0-47.0) L Mean Corpuscular Volume 88 FL (80-99) Mean Corpuscular Hemoglobin 28.6 PG (27.0-31.0) Mean Corpuscular Hemoglobin Concent 32.6 G/DL (32.0-36.0) Red Cell Distribution Width 14.7 % (11.6-14.8) Platelet Count 717 K/UL (150-450) H Mean Platelet Volume 4.6 FL (6.5-10.1) L Neutrophils (%) (Auto) 60.7 % (45.0-75.0) Lymphocytes (%) (Auto) 20.8 % (20.0-45.0) Monocytes (%) (Auto) 14.7 % (1.0-10.0) H Eosinophils (%) (Auto) 1.9 % (0.0-3.0) Basophils (%) (Auto) 1.9 % (0.0-2.0) Test 02/16/20 04:46 POC Whole Blood Glucose 110 MG/DL (74-106) H Current Medications Medications (Trade) Dose Ordered Sig/Villa Route PRN Reason Start Time Stop Time Status Last Admin Dose Admin Acetaminophen (Tylenol) 650 mg Q4H PRN GT Temp >100.5 02/01/20 20:30 03/02/20 20:29 02/14/20 20:50 Ascorbic Acid (Vitamin C) 500 mg DAILY GT 01/28/20 09:30 02/27/20 09:29 02/16/20 08:26 Clonazepam (KlonoPIN) 1 mg EVERY 8 HOURS GT 02/14/20 14:00 02/21/20 13:59 02/16/20 05:12 Dextrose/Sodium Chloride 1,000 ml @ 75 mls/hr [id number] IV 01/29/20 13:00 02/27/20 12:59 02/16/20 00:26 Diphenoxylate HCl/ Atropine (Lomotil) 2.5 mg Q6HR ORAL 02/14/20 15:00 02/16/20 14:59 02/16/20 05:12 Famotidine (Pepcid I.v.) 20 mg Q12HR IVP 01/29/20 21:00 02/28/20 20:59 02/16/20 08:27 Gabapentin (Neurontin) 900 mg TID GT 01/28/20 09:30 02/19/20 09:29 02/16/20 08:24 Midodrine (Pro-Amatine) 10 mg TID GT 02/07/20 18:00 04/21/20 17:59 02/16/20 08:26 Multivitamins (Multivitamins W/ Minerals 15ml Liquid) 15 ml DAILY GT 01/28/20 09:30 02/27/20 09:29 02/16/20 08:24 Pantoprazole (Protonix) 40 mg EVERY 12 HOURS IVP 01/31/20 09:30 03/01/20 09:29 02/16/20 08:25 Potassium Chloride (K-Dur) 40 meq TWICE A DAY ORAL 02/02/20 18:00 05/02/20 17:59 02/16/20 08:25 Sucralfate (Carafate) 1 gm FOUR TIMES A DAY ORAL 01/30/20 09:00 04/29/20 08:59 02/16/20 08:25 Thiamine HCl (Vitamin B1) 100 mg DAILY GT 01/28/20 09:30 02/27/20 09:29 02/16/20 08:26 Jesus Hanson MD Feb 16, 2020 10:49
--- NOTE | 2020-02-16 11:34 | Surgery Progress Note ---
Surgery Progress Note Subjective Additional Comments wbc 11k comfortable on support no n/v/f/c Objective Last 24 Hour Vital Signs Date Time Temp Pulse Resp B/P (MAP) Pulse Ox O2 Delivery O2 Flow Rate FiO2 02/16/20 11:12 77 16 28 02/16/20 08:00 Mechanical Ventilator 02/16/20 08:00 97.8 67 20 92/53 (66) 100 02/16/20 08:00 68 02/16/20 08:00 35 02/16/20 07:11 70 19 28 02/16/20 04:00 35 02/16/20 04:00 Mechanical Ventilator 02/16/20 04:00 98.0 68 18 96/58 (71) 100 02/16/20 03:28 72 02/16/20 03:05 72 17 28 02/16/20 00:00 Mechanical Ventilator 02/16/20 00:00 98.2 62 20 92/73 (79) 100 02/16/20 00:00 61 02/15/20 23:20 60 14 28 02/15/20 21:02 70 02/15/20 20:00 35 02/15/20 20:00 98.9 73 20 105/50 (68) 100 02/15/20 20:00 Mechanical Ventilator 02/15/20 19:40 74 16 28 02/15/20 16:00 98.2 65 20 97/44 (61) 100 02/15/20 16:00 35 02/15/20 16:00 Mechanical Ventilator 02/15/20 16:00 67 02/15/20 14:45 70 18 28 02/15/20 12:00 98.2 74 19 95/53 (67) 100 02/15/20 12:00 35 02/15/20 12:00 Mechanical Ventilator 02/15/20 11:46 67 I&O Intake and Output 02/15/20 02/16/20 19:00 07:00 Intake Total 1645 ml 1475 ml Balance 1645 ml 1475 ml Intake Free Water 260 ml 150 ml IV Total 825 ml 720 ml Tube Feeding 440 ml 605 ml Other 120 ml # Voids 2 # Bowel Movements 1 3 Dressing: saturated Cardiovascular: RSR Respiratory: decreased breath sounds Abdomen: non-tender, present bowel sounds, non-distended Extremities: no edema, no tenderness, no cyanosis, other Laboratory Tests Test 02/15/20 11:47 02/15/20 18:20 02/16/20 00:22 02/16/20 03:04 POC Whole Blood Glucose 99 MG/DL (74-106) Pending Pending White Blood Count 11.4 K/UL (4.8-10.8) H Red Blood Count 3.09 M/UL (4.20-5.40) L Hemoglobin 8.8 G/DL (12.0-16.0) L Hematocrit 27.1 % (37.0-47.0) L Mean Corpuscular Volume 88 FL (80-99) Mean Corpuscular Hemoglobin 28.6 PG (27.0-31.0) Mean Corpuscular Hemoglobin Concent 32.6 G/DL (32.0-36.0) Red Cell Distribution Width 14.7 % (11.6-14.8) Platelet Count 717 K/UL (150-450) H Mean Platelet Volume 4.6 FL (6.5-10.1) L Neutrophils (%) (Auto) 60.7 % (45.0-75.0) Lymphocytes (%) (Auto) 20.8 % (20.0-45.0) Monocytes (%) (Auto) 14.7 % (1.0-10.0) H Eosinophils (%) (Auto) 1.9 % (0.0-3.0) Basophils (%) (Auto) 1.9 % (0.0-2.0) Test 02/16/20 04:46 POC Whole Blood Glucose 110 MG/DL (74-106) H Plan Problems: (1) Pneumonia (2) Sepsis Assessment & Plan: leukocytosis anemia lactic acidosis agree with GI recommend EGD planned for 12/31 hold feeding for now trend h/h monitor for bleeding no acute hemorrhage will be available in event needs exploration for hemostasis prbc as per heme thank you will follow with recs cont abx worsening wbc wbc trending down comfortable appearing no n/v hypotensive in ICU again worse pending CT results - noted PICC ordered improving wbc improved labs and micro trending labs improved wbc resolved prognosis guarded Pt presented on admission in emaciated state. Pt has tracheostomy and GT. NO skin concerns noted to skin under collar of trach. NO erythema or evidence of skin erosion at GT site. Pt noted to have scaly pimple-like rash with webbing noted to R and L axillae, undersides of both breasts, Bilat groin and lower back. Tracking and webbing noted to hands and feet. Pt restless and scratching at skin. Non-Blanching erythema without induration or fluctuance noted to R and L hips and trochanteric areas.Non-blanching erythema noted along spine. Non-Blanching erythema without induration noted to Sacrum. Non-Blanching erythema noted to R and L Malleoli and both heels. Tx.Plan: Please apply Cavilon Skin Barrier to each bony Prominences at risks for Skin Breakdown. Cover each area with Optifoam drsgs. Change every 7 days and prn. Apply Moisture Barrier Paste to Sacrum. Cover with Optifoam drsg. Change every 3 days and prn. Reposition at least every 2hours or as tolerated. Off-load heels with pillow. APM/EMELI Mattress overlay. improving cont current care plan Incontinent social dermatitis noted around the bilateral groin creases and vaginal area. Site clean. Monitor for incontinence. There is marked enlargement of the third and lateral ventricles and extra axial CSF spaces, in particular the former. There is considerable periventricular deep white matter low-attenuation. Otherwise normal mobley-white differentiation. No acute hemorrhage or edema. No mass effect nor midline shift. Visualized orbits and sinuses are unremarkable. The calvarium is intact Impression: Third and lateral ventriculomegaly. Associated enlargement of the extra axial CSF spaces indicates that this is probably due to central volume loss, but the possibility of hydrocephalus should also be considered. At the degree of volume loss is considerably out of proportion to patient's age. Correlate with clinical history Periventricular deep white matter low-attenuation. Probably on the basis of microvascular ischemic change but given patient's age the possibility of demyelinating disease should be considered as well. Negative for acute intracranial bleed or mass effect ABDOMEN: Liver: Unremarkable. Gallbladder and bile ducts: Cholecystectomy. No ductal dilation. Pancreas: Unremarkable. No ductal dilation. Spleen: Unremarkable. No splenomegaly. Adrenals: Unremarkable. No mass. Kidneys and ureters: Unremarkable. No obstructing stones. No hydronephrosis. Stomach and bowel: Operative bowel findings. Diffuse small bowel wall thickening with areas of distention and fluid-filled colonic loops. No clear focal transition point to suggest small bowel obstruction. PELVIS: Appendix: Appendix not identified. Bladder: Urinary bladder wall thickening could be incidental, due to high outlet pressures, or could represent cystitis. No stones. Reproductive: Unremarkable as visualized. ABDOMEN and PELVIS: Intraperitoneal space: Large low-attenuation pelvic fluid of uncertain significance, potentially reactive. No free air. Bones/joints: No acute fracture. No dislocation. Soft tissues: Bilateral buttock injection granulomas. Vasculature: Unremarkable. No abdominal aortic aneurysm. Lymph nodes: Unremarkable. No enlarged lymph nodes. Tubes, lines and devices: Percutaneous gastrostomy tube adequately positioned in the stomach. Rectal tube. Other findings: No perforation seen. IMPRESSION: 1. Study substantially limited due to lack of IV contrast. 2. Findings most compatible with ileus and probable infectious or inflammatory enteritis or enterocolitis. 3. Large low-attenuation pelvic fluid of uncertain significance, potentially reactive. 4. Appendix not identified. 5. Percutaneous gastrostomy tube adequately positioned in the stomach. Rectal tube. 6. Urinary bladder wall thickening could be incidental, due to high outlet pressures, or could represent cystitis. 7. Cholecystectomy. (3) GI bleed (4) G tube feedings Assessment & Plan: DAILY ESTIMATED NEEDS: Needs based on Underweight, critical care 37.3kg 30-40 kcals/kg 3028-5834 total kcals 1.25-2 g protein/kg 47-75 g total protein 25-35 mL/kg 933-1306 total fluid mLs NUTRITION DIAGNOSIS: Increased kcal and pro needs r/t underweight status as evidenced by BMI 14.1, pt is 68% of ideal body weight w/ generalized severe wasting, trach and peg dep. CURRENT TF:Vital AF 1.2 @55 x20 hrs ENTERAL NUTRITION RECOMMENDATIONS: Vital AF 1.2 @ 55ml/hr x20 hrs to provide 1100ml 1320kcal 83g prot, 892ml free water - Rec to continue elemental TF formula while stool C-diff positive, +LBM - HOLD 1HR BEFORE AND AFTER SYNTHROID MEDS - Flush per . HOB over 30 degrees ADDITIONAL RECOMMENDATIONS: 1) Per SNF: 5'4" and 81# Maintain calibrated bed scale wts w/ added P200 mattress 2) Lytes daily madhav w/ loose stools, replete as needed 3) Skin integrity: Continue BRIAN VIA GT BID + Vit C 4) Accuchecks for Hypoglycemia 5) Add probiotics for stool C-diff+ . George [place] Feb 16, 2020 11:34
[2020-02-16 12:00] VITALS: BP 110/62
--- NOTE | 2020-02-16 13:08 | Nephrology Progress Note ---
Assessment/Plan Problem List: (1) RICHARD (acute kidney injury) (2) Dehydration (3) Anemia (4) GI bleed (5) Malnutrition (6) Seizure disorder (7) Electrolyte imbalance Assessment Renal failure, in the form of prerenal azotemia, most likely secondary to GI bleed GI bleed, leading to severe anemia Sepsis, pneumonia Chronic tracheostomy, ventilator dependent History of CVA History of seizure disorder History of psychiatric disorder Severe malnutrition Electrolyte abnormalities Plan February 15: Stable from renal standpoint of view. Okay to discharge from renal standpoint of view. February 14: No chemistry panel done today. Clinically remains stable. Continue per PMD. February 13: Status quo. Stable from renal standpoint of view. February 12: Stable from renal standpoint of view. Remains full code on ventilator. Continue per PMD. February 11: Today's labs reviewed. Full code. On ventilator. Abnormal electrolytes addressed. February 10: No can panel done today. Full code. On ventilator. Will order lab tomorrow. February 09: No chemistry panel done today. Remains full code. Remains on ventilator. Continue per PMD. February 08: Labs reviewed. Electrolyte abnormalities addressed. Patient full code. Continue per current management. February 07: No chemistry panel done today. Remains stable from renal standpoint of view. Patient is full code. Order lab tomorrow. February 06: No chemistry panel drawn today. Clinically remains stable from renal standpoint of view. Patient is full code. February 05: Phosphorus and magnesium supplement given. Stable from renal standpoint of view. Remains full code February 04: No chemistry panel done today. Remains stable from renal mary ellen dpoint of view. Continue to monitor renal parameters. February 03: Labs reviewed. Renal parameters stable. Continue her cons ultants. February 02: Lab reviewed. Low phosphorus low magnesium corrections ordered. Continue to monitor electrolytes and renal parameters. February 01: Lab reviewed. Low phosphorus and low magnesium replaced. Low potassium replaced. Continue to monitor electrolytes. Continue per consultants. January 31: Lab reviewed. Hemoglobin higher. Renal parameters stable. Potassium and phosphorus supplement given. January 30: Labs reviewed. Low mag low phosphorus and low potassium replaced. White blood cells 16,000 today. Remains full code. Continue to monitor hemoglobin and hematocrit and electrolytes. January 29: Labs reviewed. Magnesium, potassium, phosphorus supplement given. White blood cells down to 22,000. Remains full code. Continue per consultants. RN reports rectal bleed. Hemoglobin drifting down. Defer management to desktop architect who is already on the case. January 28: Status quo. Electrolyte abnormalities noted. Mag Phos and potassium supplement IV given. Renal parameters stable. Continue per consultants. Leukocytosis persists. January 27: Significant rise in white blood cell counts. Hypotensive. Now in ICU. Will give albumin bolus. Continue to monitor renal parameters. Continue per ID advice. January 26: Continue to monitor renal parameters. Patient remains on ventilator. Patient is full code. Continue per consultants. January 25: Status quo. Labs reviewed. Continue per consultants. January 24: Status unchanged. Labs reviewed. Remains stable from renal standpoint of view. January 23: Back in [facility]. Stable from renal standpoint of view. Continue per consultants. January 22: Patient in ICU now. Vital signs and heart rate and blood pressure appears to be stable. Patient had an episode of bradycardia but it was resolved. TSH level today is very low will cut down on Synthroid dose. January 21: Today's labs are reviewed. Stable renal parameters. Continue per consultants. January 20: Labs reviewed. Renal parameters stable. January 19: Labs reviewed. Stable from renal standpoint. January 18: No labs done today. Continue per consultants. Medications reviewed. January 17: Late [place] entry [place] [facility] [place] reviewed. Stable from renal standpoint of view. Continue per current management. January 16: No can panel today. Check lab tomorrow. Remains stable from renal standpoint of view. January 15: Lab reviewed. Renal parameters stable. January 14: Lab reviewed. Renal parameters stable. January 13: Labs reviewed. Stable from renal standpoint of view. January 12: Labs reviewed. Stable from renal standpoint of view January 11: No labs drawn today stable from renal standpoint of view January 10: Labs reviewed. Potassium supplement given. Continue per consultants. January 09: Lab reviewed. Potassium supplement given. IV fluid discontinued. January 08: Lab reviewed. Renal parameters stable. Continue per consultants. January 07: Lab reviewed. Renal parameters stable. Continue per consultants. January 06: Lab reviewed. Stable from renal standpoint of view. January 05: Labs reviewed. Stable from renal standpoint of view. Continue per consultants. January 04: No labs drawn today. Will check labs tomorrow. Continue per consultants. January 03: Lab reviewed. Renal parameters stable. IV fluid discontinued. High LFTs declining. Continue same. January 02: Lab reviewed. Renal parameters stable. Continue per PMD and consultants. LFTs remain elevated. Continue to monitor. Continue slow hydration Discontinue blood pressure medications as her blood pressure is low Discontinue diuretics Monitor renal parameters Transfusion as needed GI evaluation Correct electrolyte abnormalities Check B12 level, folate, and thyroid function tests: Results noted Subjective ROS Limited/Unobtainable: Yes Objective Objective Last 24 Hour Vital Signs Date Time Temp Pulse Resp B/P (MAP) Pulse Ox O2 Delivery O2 Flow Rate FiO2 02/16/20 12:00 35 02/16/20 12:00 97.6 72 17 110/62 (78) 100 02/16/20 11:12 77 16 28 02/16/20 08:00 Mechanical Ventilator 02/16/20 08:00 97.8 67 20 92/53 (66) 100 02/16/20 08:00 68 02/16/20 08:00 35 02/16/20 07:11 70 19 28 02/16/20 04:00 35 02/16/20 04:00 Mechanical Ventilator 02/16/20 04:00 98.0 68 18 96/58 (71) 100 02/16/20 03:28 72 02/16/20 03:05 72 17 28 02/16/20 00:00 Mechanical Ventilator 02/16/20 00:00 98.2 62 20 92/73 (79) 100 02/16/20 00:00 61 02/15/20 23:20 60 14 28 02/15/20 21:02 70 02/15/20 20:00 35 02/15/20 20:00 98.9 73 20 105/50 (68) 100 02/15/20 20:00 Mechanical Ventilator 02/15/20 19:40 74 16 28 02/15/20 16:00 98.2 65 20 97/44 (61) 100 02/15/20 16:00 35 02/15/20 16:00 Mechanical Ventilator 02/15/20 16:00 67 02/15/20 14:45 70 18 28 Intake and Output 02/15/20 02/16/20 19:00 07:00 Intake Total 1645 ml 1475 ml Balance 1645 ml 1475 ml Intake Free Water 260 ml 150 ml IV Total 825 ml 720 ml Tube Feeding 440 ml 605 ml Other 120 ml # Voids 2 # Bowel Movements 1 3 Laboratory Tests 02/15/20 18:20: POC Whole Blood Glucose [Pending] 02/16/20 00:22: POC Whole Blood Glucose [Pending] 02/16/20 03:04: White Blood Count 11.4H, Red Blood Count 3.09L, Hemoglobin 8.8L, Hematocrit 27.1L, Mean Corpuscular Volume 88, Mean Corpuscular Hemoglobin 28.6, Mean Corpuscular Hemoglobin Concent 32.6, Red Cell Distribution Width 14.7, Platelet Count 717H, Mean Platelet Volume 4.6L, Neutrophils (%) (Auto) 60.7, Lymphocytes (%) (Auto) 20.8, Monocytes (%) (Auto) 14.7H, Eosinophils (%) (Auto) 1.9, Basophils (%) (Auto) 1.9 02/16/20 04:46: POC Whole Blood Glucose 110H 02/16/20 12:37: POC Whole Blood Glucose 87 Height (Feet): 5 Height (Inches): 1.00 Weight (Pounds): 82 General Appearance: no apparent distress EENT: other - Trach to vent Cardiovascular: normal rate Respiratory/Chest: decreased breath sounds Abdomen: soft Objective No change Chivo Holloway MD Feb 16, 2020 13:08
[2020-02-16 16:00] VITALS: BP 130/51
--- NOTE | 2020-02-16 17:42 | General Progress Note ---
Subjective Constitutional: Reports: no symptoms HEENT: Reports: no symptoms Cardiovascular: Reports: no symptoms Respiratory: Reports: no symptoms Gastrointestinal/Abdominal: Reports: no symptoms Genitourinary: Reports: no symptoms Neurologic/Psychiatric: Reports: no symptoms Hematologic/Lymphatic: Reports: no symptoms Allergies: Coded Allergies: CARBAMAZEPINE (Verified Allergy, Unknown, 12/31/19) LORAZEPAM (Verified Allergy, Unknown, 12/31/19) Objective Last 24 Hour Vital Signs Date Time Temp Pulse Resp B/P (MAP) Pulse Ox O2 Delivery O2 Flow Rate FiO2 02/16/20 16:10 Mechanical Ventilator 02/16/20 16:00 35 02/16/20 16:00 80 02/16/20 16:00 98.2 79 19 130/51 (77) 100 02/16/20 14:40 77 19 28 02/16/20 12:00 Mechanical Ventilator 02/16/20 12:00 35 02/16/20 12:00 97.6 72 17 110/62 (78) 100 02/16/20 11:30 52 02/16/20 11:12 77 16 28 02/16/20 08:00 Mechanical Ventilator 02/16/20 08:00 97.8 67 20 92/53 (66) 100 02/16/20 08:00 68 02/16/20 08:00 35 02/16/20 07:11 70 19 28 02/16/20 04:00 35 02/16/20 04:00 Mechanical Ventilator 02/16/20 04:00 98.0 68 18 96/58 (71) 100 02/16/20 03:28 72 02/16/20 03:05 72 17 28 02/16/20 00:00 Mechanical Ventilator 02/16/20 00:00 98.2 62 20 92/73 (79) 100 02/16/20 00:00 61 02/15/20 23:20 60 14 28 02/15/20 21:02 70 02/15/20 20:00 35 02/15/20 20:00 98.9 73 20 105/50 (68) 100 02/15/20 20:00 Mechanical Ventilator 02/15/20 19:40 74 16 28 Intake and Output 02/15/20 02/16/20 19:00 07:00 Intake Total 1645 ml 1475 ml Balance 1645 ml 1475 ml Intake Free Water 260 ml 150 ml IV Total 825 ml 720 ml Tube Feeding 440 ml 605 ml Other 120 ml # Voids 2 # Bowel Movements 1 3 Laboratory Tests 02/15/20 18:20: POC Whole Blood Glucose [Pending] 02/16/20 00:22: POC Whole Blood Glucose [Pending] 02/16/20 03:04: White Blood Count 11.4H, Red Blood Count 3.09L, Hemoglobin 8.8L, Hematocrit 27.1L, Mean Corpuscular Volume 88, Mean Corpuscular Hemoglobin 28.6, Mean Corpuscular Hemoglobin Concent 32.6, Red Cell Distribution Width 14.7, Platelet Count 717H, Mean Platelet Volume 4.6L, Neutrophils (%) (Auto) 60.7, Lymphocytes (%) (Auto) 20.8, Monocytes (%) (Auto) 14.7H, Eosinophils (%) (Auto) 1.9, Basophils (%) (Auto) 1.9 02/16/20 04:46: POC Whole Blood Glucose 110H 02/16/20 12:37: POC Whole Blood Glucose 87 Height (Feet): 5 Height (Inches): 1.00 Weight (Pounds): 82 General Appearance: WD/WN, no apparent distress, alert EENT: normal ENT inspection Neck: supple Cardiovascular: normal rate, regular rhythm, no gallop/murmur, no JVD Respiratory/Chest: lungs clear, normal breath sounds, no respiratory distress, no accessory muscle use Abdomen: non tender, soft, no organomegaly, no mass Extremities: non-tender Neurologic: alert, normal mood/affect, aphasia, other - Short attention span Assessment/Plan Problem List: (1) Pneumonia ICD Codes: J18.9 - Pneumonia, unspecified organism SNOMED: 941907806 (2) Sepsis ICD Codes: A41.9 - Sepsis, unspecified organism SNOMED: 42023777 (3) GI bleed ICD Codes: K92.2 - Gastrointestinal hemorrhage, unspecified SNOMED: 49020508 (4) Anemia ICD Codes: D64.9 - Anemia, unspecified SNOMED: 573823246 (5) Seizure disorder ICD Codes: G40.909 - Epilepsy, unspecified, not intractable, without status epilepticus SNOMED: 272617649 (6) Malnutrition ICD Codes: E46 - Unspecified protein-calorie malnutrition SNOMED: 94745436 (7) Thrombocytopenia ICD Codes: D69.6 - Thrombocytopenia, unspecified SNOMED: 080002170 Status: stable, other - Patient is now hypotensive before over 46 she will receive 500 cc of normal saline bolus to be repeated blood pressure remained below 90 further management will be decided following the boluses treatment repeat laboratory tests will be done in a.m. GLENNY MCKAY MD Status Narrative Patient is awake alert indifferent with short attention span on gentamicin for UTI and leukocytosis And diarrhea resolved with Lomotil she is not agitated in the midline of to prevent her from scratching himself rather than to remove tracheostomy tube orifice Repeat laboratory tests will be done in a.m. patient is ready to be discharged GLENNY MCKAY MD Assessment/Plan: Glenny Guadarrama MD Feb 16, 2020 17:42
[2020-02-16 20:00] VITALS: BP 96/53
--- NOTE | 2020-02-16 23:42 | Cardiology Progress Note ---
Assessment/Plan Assessment/Plan 1. Septic shock, continue midodrine. 2. Sinus bradycardia, resolved. 3. Anemia of chronic disease. 4. Acute renal failure, resolved. 5. GI bleeding due to gastric ulceration. 6. Dysphagia, s/p PEG placement, s/p EGD. 7. VDRF, s/p tracheostomy tube placement. 8. Hypomagnesemia, Mg level at 1.9. Subjective Subjective Sinus bradycardia at rate of 55. On the vent with FiO2 of 35%. Objective Last 24 Hour Vital Signs Date Time Temp Pulse Resp B/P (MAP) Pulse Ox O2 Delivery O2 Flow Rate FiO2 02/16/20 20:00 55 02/16/20 20:00 35 02/16/20 20:00 Mechanical Ventilator 02/16/20 20:00 97.5 60 14 96/53 (67) 98 02/16/20 19:49 71 16 28 02/16/20 16:10 Mechanical Ventilator 02/16/20 16:00 35 02/16/20 16:00 80 02/16/20 16:00 98.2 79 19 130/51 (77) 100 02/16/20 14:40 77 19 28 02/16/20 12:00 Mechanical Ventilator 02/16/20 12:00 35 02/16/20 12:00 97.6 72 17 110/62 (78) 100 02/16/20 11:30 52 02/16/20 11:12 77 16 28 02/16/20 08:00 Mechanical Ventilator 02/16/20 08:00 97.8 67 20 92/53 (66) 100 02/16/20 08:00 68 02/16/20 08:00 35 02/16/20 07:11 70 19 28 02/16/20 04:00 35 02/16/20 04:00 Mechanical Ventilator 02/16/20 04:00 98.0 68 18 96/58 (71) 100 02/16/20 03:28 72 02/16/20 03:05 72 17 28 02/16/20 00:00 Mechanical Ventilator 02/16/20 00:00 98.2 62 20 92/73 (79) 100 02/16/20 00:00 61 Intake and Output 02/15/20 02/16/20 18:59 06:59 Intake Total 1530 ml 1665 ml Balance 1530 ml 1665 ml Intake Free Water 200 ml 210 ml IV Total 825 ml 795 ml Tube Feeding 385 ml 660 ml Other 120 ml # Voids 2 # Bowel Movements 1 3 2D Echo: LVEF 65%, RVSP 23 mmHg, Grade I LVDD Laboratory Tests Test 02/16/20 00:22 02/16/20 03:04 02/16/20 04:46 02/16/20 12:37 POC Whole Blood Glucose Pending 110 MG/DL (74-106) H 87 MG/DL (74-106) White Blood Count 11.4 K/UL (4.8-10.8) H Red Blood Count 3.09 M/UL (4.20-5.40) L Hemoglobin 8.8 G/DL (12.0-16.0) L Hematocrit 27.1 % (37.0-47.0) L Mean Corpuscular Volume 88 FL (80-99) Mean Corpuscular Hemoglobin 28.6 PG (27.0-31.0) Mean Corpuscular Hemoglobin Concent 32.6 G/DL (32.0-36.0) Red Cell Distribution Width 14.7 % (11.6-14.8) Platelet Count 717 K/UL (150-450) H Mean Platelet Volume 4.6 FL (6.5-10.1) L Neutrophils (%) (Auto) 60.7 % (45.0-75.0) Lymphocytes (%) (Auto) 20.8 % (20.0-45.0) Monocytes (%) (Auto) 14.7 % (1.0-10.0) H Eosinophils (%) (Auto) 1.9 % (0.0-3.0) Basophils (%) (Auto) 1.9 % (0.0-2.0) Test 02/16/20 17:51 POC Whole Blood Glucose 96 MG/DL (74-106) Objective HEENT: PERRLA, EOMI, +Trach tube. NECK: Cannot assess JVP, no carotid bruit with normal upstroke. LUNGS: Bilateral rhonchi. CARDIAC: Regular rhythm and rate. Normal S1, S2, no murmurs, gallops or rubs. ABDOMEN: Soft with G-tube. No hepatomegaly. EXTREMITIES: No edema, clubbing or cyanosis. Desmond Gleason MD Feb 16, 2020 23:42
[2020-02-17] VITALS (7 sets, daily range): BP systolic 81–127; BP diastolic 51–72
[2020-02-17] MEDS: D5 1/2NS 1,000 ML IV SCH ×2 (03:57→18:28)
--- NOTE | 2020-02-17 07:41 | General Progress Note ---
Subjective ROS Limited/Unobtainable: No Allergies: Coded Allergies: CARBAMAZEPINE (Verified Allergy, Unknown, 12/31/19) LORAZEPAM (Verified Allergy, Unknown, 12/31/19) Objective Last 24 Hour Vital Signs Date Time Temp Pulse Resp B/P (MAP) Pulse Ox O2 Delivery O2 Flow Rate FiO2 02/17/20 04:17 82 02/17/20 04:00 97.2 65 18 97/64 (75) 99 65 02/17/20 04:00 Mechanical Ventilator 02/17/20 04:00 35 02/17/20 03:16 66 17 28 02/17/20 00:00 Mechanical Ventilator 02/17/20 00:00 99.0 56 15 101/66 (78) 100 66 02/17/20 00:00 65 02/16/20 23:41 76 20 28 02/16/20 20:00 55 02/16/20 20:00 35 02/16/20 20:00 Mechanical Ventilator 02/16/20 20:00 97.5 60 14 96/53 (67) 98 02/16/20 19:49 71 16 28 02/16/20 16:10 Mechanical Ventilator 02/16/20 16:00 35 02/16/20 16:00 80 02/16/20 16:00 98.2 79 19 130/51 (77) 100 02/16/20 14:40 77 19 28 02/16/20 12:00 Mechanical Ventilator 02/16/20 12:00 35 02/16/20 12:00 97.6 72 17 110/62 (78) 100 02/16/20 11:30 52 02/16/20 11:12 77 16 28 02/16/20 08:00 Mechanical Ventilator 02/16/20 08:00 97.8 67 20 92/53 (66) 100 02/16/20 08:00 68 02/16/20 08:00 35 Intake and Output 02/16/20 02/17/20 19:00 07:00 Intake Total 920 ml 1605 ml Balance 920 ml 1605 ml Intake Free Water 200 ml 100 ml IV Total 225 ml 900 ml Tube Feeding 495 ml 605 ml # Bowel Movements 4 4 Laboratory Tests 02/16/20 12:37: POC Whole Blood Glucose 87 02/16/20 17:51: POC Whole Blood Glucose 96 Height (Feet): 5 Height (Inches): 1.00 Weight (Pounds): 82 General Appearance: no apparent distress EENT: normal ENT inspection Neck: supple Cardiovascular: normal rate Respiratory/Chest: decreased breath sounds Abdomen: normal bowel sounds, non tender, soft Extremities: non-tender Assessment/Plan Problem List: (1) G tube feedings ICD Codes: Z93.1 - Gastrostomy status SNOMED: 504403377, 284646195, 398377923 (2) GI bleed ICD Codes: K92.2 - Gastrointestinal hemorrhage, unspecified SNOMED: 41893603 (3) Sepsis ICD Codes: A41.9 - Sepsis, unspecified organism SNOMED: 86288492 (4) Pneumonia ICD Codes: J18.9 - Pneumonia, unspecified organism SNOMED: 128572312 Status: stable, other - Patient is now hypotensive before over 46 she will receive 500 cc of normal saline bolus to be repeated blood pressure remained below 90 further management will be decided following the boluses treatment repeat laboratory tests will be done in a.m. GEM MCKAY MD Assessment/Plan: s/p EGD gastric ulcer monitor H&H C. Diff positive>> now neg GTF prn Imodium ppi will fu Satish Carrillo MD Feb 17, 2020 07:41
--- NOTE | 2020-02-17 08:10 | Pulmonology Progress Note ---
Subjective ROS Limited/Unobtainable: No Allergies: Coded Allergies: CARBAMAZEPINE (Verified Allergy, Unknown, 12/31/19) LORAZEPAM (Verified Allergy, Unknown, 12/31/19) Subjective in JULIANA no signs of resp distress on current vent settings on Midodrine, off Dopamine gtt mild leuk 02/15, remains afebrile CXR 02/09 - no definite infiltrate repeated venous Duplex BLE NGT dc plan in progress Objective Last 24 Hour Vital Signs Date Time Temp Pulse Resp B/P (MAP) Pulse Ox O2 Delivery O2 Flow Rate FiO2 02/17/20 04:17 82 02/17/20 04:00 97.2 65 18 97/64 (75) 99 65 02/17/20 04:00 Mechanical Ventilator 02/17/20 04:00 35 02/17/20 03:16 66 17 28 02/17/20 00:00 Mechanical Ventilator 02/17/20 00:00 99.0 56 15 101/66 (78) 100 66 02/17/20 00:00 65 02/16/20 23:41 76 20 28 02/16/20 20:00 55 02/16/20 20:00 35 02/16/20 20:00 Mechanical Ventilator 02/16/20 20:00 97.5 60 14 96/53 (67) 98 02/16/20 19:49 71 16 28 02/16/20 16:10 Mechanical Ventilator 02/16/20 16:00 35 02/16/20 16:00 80 02/16/20 16:00 98.2 79 19 130/51 (77) 100 02/16/20 14:40 77 19 28 02/16/20 12:00 Mechanical Ventilator 02/16/20 12:00 35 02/16/20 12:00 97.6 72 17 110/62 (78) 100 02/16/20 11:30 52 02/16/20 11:12 77 16 28 Intake and Output 02/16/20 02/17/20 19:00 07:00 Intake Total 920 ml 1605 ml Balance 920 ml 1605 ml Intake Free Water 200 ml 100 ml IV Total 225 ml 900 ml Tube Feeding 495 ml 605 ml # Bowel Movements 4 4 Objective General Appearance: bedridden, pale, chronically ill looking, older than her biological age ; vent dependent female ; on vent SIMV 450-30%-12, PEEP 5 Lines, tubes and drains: trach HEENT: normocephalic, atraumatic Neck: trach - Portex #7, secretions small amount, yellow color, thin consistency Respiratory/Chest: CTAB Cardiovascular/Chest: regular rate, regular rhythm Abdomen: non tender, soft, G tube , Genitourinary/Rectal: [place] Extremities: no edema, muscle atrophy Neurologic: abnormal gait, awake, poorly responsive Musculoskeletal: atrophy BLE Skin: multiple tattoos Laboratory Tests 02/16/20 12:37: POC Whole Blood Glucose 87 02/16/20 17:51: POC Whole Blood Glucose 96 Current Medications Medications (Trade) Dose Ordered Sig/Villa Route PRN Reason Start Time Stop Time Status Last Admin Dose Admin Acetaminophen (Tylenol) 650 mg Q4H PRN GT Temp >100.5 02/01/20 20:30 03/02/20 20:29 02/14/20 20:50 Ascorbic Acid (Vitamin C) 500 mg DAILY GT 01/28/20 09:30 02/27/20 09:29 02/16/20 08:26 Clonazepam (KlonoPIN) 1 mg EVERY 8 HOURS GT 02/14/20 14:00 02/21/20 13:59 02/17/20 05:26 Dextrose/Sodium Chloride 1,000 ml @ 75 mls/hr [id number] IV 01/29/20 13:00 02/27/20 12:59 02/17/20 03:57 Famotidine (Pepcid I.v.) 20 mg Q12HR IVP 01/29/20 21:00 02/28/20 20:59 02/16/20 20:51 Gabapentin (Neurontin) 900 mg TID GT 01/28/20 09:30 02/19/20 09:29 02/16/20 17:47 Midodrine (Pro-Amatine) 10 mg TID GT 02/07/20 18:00 04/21/20 17:59 02/16/20 17:47 Multivitamins (Multivitamins W/ Minerals 15ml Liquid) 15 ml DAILY GT 01/28/20 09:30 02/27/20 09:29 02/16/20 08:24 Pantoprazole (Protonix) 40 mg EVERY 12 HOURS IVP 01/31/20 09:30 03/01/20 09:29 02/16/20 20:51 Potassium Chloride (K-Dur) 40 meq TWICE A DAY ORAL 02/02/20 18:00 05/02/20 17:59 02/16/20 17:47 Sucralfate (Carafate) 1 gm FOUR TIMES A DAY ORAL 01/30/20 09:00 04/29/20 08:59 02/16/20 20:51 Thiamine HCl (Vitamin B1) 100 mg DAILY GT 01/28/20 09:30 02/27/20 09:29 02/16/20 08:26 Assessment/Plan Assessment/Plan ASSESSMENT VDRF/trach status Sepsis Possible pneumonia UTI recurrent GI bleeding severe C dif colitis Anemia secondary to GI bleeding Aspiration risk Dysphagia, feeding by G-tube Encephalopathy Acute kidney injury likely secondary to dehydration Recurrent bradycardia persistent Hypotension -improving Electrolyte imbalance Severe protein calorie malnutrition Hx of hypertension History of CVA Seizure disorder with witnessed seizure episode 01/07 Psychiatric disorder Presumed scabies, s/p Rx Thrombocytopenia-transient- resolved PLAN OF CARE JULIANA off Dopamine gtt, BP better with Midodrine only on IVF, vent support, pulm toilet ABG stable on current settings on SIMV mode 450-30-12 PEEP5 , no signs of resp distress on these settings keep settings as is and titrate as needed CXR 01/27 no acute disease pulm toilet via N CT chest 01/28 - with tree-in-bud nodular opacities in the medial left base and lingula with left bronchial bubbly material suggesting infectious or inflammatory bronchiolitis, likely due to aspiration. Small amount of similar foci seen in the right posterior lower lobe. Mild bronchiectasis and reticulation in the lingula, medial left base, and superior left upper lobe could also be due to chronic infection. CXR 02/01 -Interval development of retrocardiac airspace opacities which could represent atelectasis versus developing consolidation. probably ATX , given no fevers, resolved leukocytosis, no resp distress on current settings CXR 02/04 Bilateral mostly interstitial opacities; suspect largely chronic although there may be an acute component at the left lung base. The latter does appear somewhat improved since the previous exam. CXR 02/09 -> no definite infiltrate pancx-per ID CXR 01/13- no acute findings KUB 01/13- no acute findings UA + yeast , 01/12 UCX +yeast, started on Fluconazole 01/14 as per ID -completed BCX 01/12 NGTD BCX 01/26 and 01/27 NGTD Vanco po was prior dc and switched to Dificid , also on Flagyl per GI -till 01/28 , both extended till , completed inflammatory markers : ESR-42, CRP- wnl WBC smear NGT C dif a/b 01/30 NGT less output from rectal tube UCX 01/27 + Klebs CR- started on Gent per ID recs given prior leukocytosis and fevers SCX 02/02 + Serratia,Pseudomonas abx as per ID recs , Gent completed 02/10 ( prior extended for 3 days given mild leuk and fever), mild leuk this am ; no fevers CXR 02/09 no significant findings, no definite infiltrate CT C/ A/P noted ( see results of CT chest above), CT A/P with findings most compatible with ileus and probable infectious or inflammatory enteritis or enterocolitis. off cefepime rapid COVID 19 NGT in ED aspiration precautions Venous Duplex BLE -negative, get SCD ( unable to give a/c given anemia) closely monitor hemodynamic status repeated Venous Duplex BLE NGT heme and GI follows s/p prior EGD 01/01 -> gastric ulcer across G tube site , no active bleeding s/p EGD 01/30 -> gastric ulceration without visible bleeding Protonix IV bid ( changed from Protonix gtt), Carafate GT feeding resumed as per GI , s/p blood tx 01/30 stool OB positive , another pending transfuse to keep Hgb > 7. HH at baseline trend LFT-> trended down, hep panel NGT hx of cirrhosis- per GI management monitor renal parameters, lytes, avoid nephrotoxic IVF BUN trending down, creat stable, likely prerenal due to dehydration replace e/lytes as per nephro recs , monitor volumes seizure precautions, antiepileptic optimized as per neuro recs ammonia 49, fup with further neuro recs EEG - grossly abnormal; mild to mod encephalopathy, single ictal episode CT head no acute IC pathology BP management with current regimen SNF meds supportive care dietary recs s/p 12/31 Rx for presumed scabies with permethrin and Ivermectin, repeated Ivermectin 01/08 dc plan for today as per primary case discussed and evaluated by supervising physician Ivanna Mora [employer] Feb 17, 2020 08:10
[2020-02-17] MEDS: Multivitamins W/Minerals 15 ML UDC GT SCH (08:59)
[2020-02-17] MEDS: Midodrine 10mg tab GT SCH ×3 (08:59→18:27)
[2020-02-17] MEDS: Thiamine 100mg tab GT SCH (08:59)
[2020-02-17] MEDS: Ascorbic Acid 500mg tab GT SCH (09:00)
[2020-02-17] MEDS: Sucralfate 1gm tab ORAL SCH ×4 (09:00→21:16)
[2020-02-17] MEDS: Pantoprazole Inj IVP SCH ×2 (09:01→21:15)
[2020-02-17] MEDS: Gabapentin 300 MG/6 ML Soln GT SCH ×3 (09:04→18:27)
--- NOTE | 2020-02-17 09:05 | Infectious Diseases Prog Note ---
Assessment/Plan 39yo F with: Severe Sepsis Fever, recurrent; SP Leukocytosis; recurrent; mild UTI -02/04 CXR: Bilateral mostly interstitial opacities; suspect largely chronic althoughthere may be an acute component at the left lung base. The latter does appear somewhat improved since the previous exam. -02/02 sp cx S. marcences (R ancef, CTX, mami; I Levo; S Genta, Ceftazidime, Cefepime, bactrim), GNR #2 -02/01 CXR: Interval development of retrocardiac airspace opacities which could represent atelectasis versus developing consolidation. u/a wbc 5-10, nit neg, leuk +2; -01/28 CXR: Subtle reticular nodular opacities in the left apex which may be related to scarring versus acute small airway disease/bronchitis CT c/abd/p wo: Study substantially limited due to lack of IV contrast. Findings most compatible with ileus and probable infectious or inflammatory enteritis or enterocolitis. Large low-attenuation pelvic fluid of uncertain significance, potentially reactive.Appendix not identified. Percutaneous gastrostomy tube adequately positioned in the stomach. Rectal tube. Urinary bladder wall thickening could be incidental, due to high outlet pressures, or could represent cystitis.Cholecystectomy. -01/27 u/a no pyuria, nit +, leuk +3; ucx >100k CRE K, pna (S Gentamycin), P . miriabilis, MDR P, fluorensces (I Gentamycin) CXR: no acute disease Bc xNTD -01/26 Bcx Neg -01/13 CXR: no acute disease -01/12 u/a wbc tnct, nit neg, latrell +3; ucx >100k C. tropicalis Bcx NTD Severe Cdiff colitis -01/30 Cdif toxin a/b neg -01/06 Cdif toxin + 01/27 KUB:Severely dilated small bowel loop in the central abdomen could reflect obstruction. Diffusely fluid distended colon. -01/13 KUB: no acute findings Recurrent GIB 01/06 u/aneg 12/30 BCx 1/2 +CONS, likely contaminant 12/30 UA neg, COVID rapid Ag neg 12/30 CXR 1. Density overlying the bilateral lung apices. May represent pleural thickening, multifocal airspace opacities, versus summation artifact. 01/01 BCx Neg 01/02 BCx Neg Acute blood loss anemia Possible pna on CXR, sp rx Seizure episode -01/10 CT head: Third and lateral ventriculomegaly. Associated enlargement of the extra axial CSF spaces indicates that this is probably due to central volume loss, but the possibility of hydrocephalus should also be considered. At the degree of volume loss is considerably out of proportion to patient's age. Periventricular deep white matter low-attenuation. Probably on the basis of microvascular ischemic change but given patient's age the possibility of demyelinating disease should be considered as well. 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 [facility] will continue to follow. Subjective Allergies: Coded Allergies: CARBAMAZEPINE (Verified Allergy, Unknown, 12/31/19) LORAZEPAM (Verified Allergy, Unknown, 12/31/19) Afebrile Mild Leukocytosis yesterday Satting well on Vent 40% O2 Objective Last 24 Hour Vital Signs Date Time Temp Pulse Resp B/P (MAP) Pulse Ox O2 Delivery O2 Flow Rate FiO2 02/17/20 06:50 73 16 40 02/17/20 04:17 82 02/17/20 04:00 97.2 65 18 97/64 (75) 99 65 02/17/20 04:00 Mechanical Ventilator 02/17/20 04:00 35 02/17/20 03:16 66 17 28 02/17/20 00:00 Mechanical Ventilator 02/17/20 00:00 99.0 56 15 101/66 (78) 100 66 02/17/20 00:00 65 02/16/20 23:41 76 20 28 02/16/20 20:00 55 02/16/20 20:00 35 02/16/20 20:00 Mechanical Ventilator 02/16/20 20:00 97.5 60 14 96/53 (67) 98 02/16/20 19:49 71 16 28 02/16/20 16:10 Mechanical Ventilator 02/16/20 16:00 35 02/16/20 16:00 80 02/16/20 16:00 98.2 79 19 130/51 (77) 100 02/16/20 14:40 77 19 28 02/16/20 12:00 Mechanical Ventilator 02/16/20 12:00 35 02/16/20 12:00 97.6 72 17 110/62 (78) 100 02/16/20 11:30 52 02/16/20 11:12 77 16 28 Height (Feet): 5 Height (Inches): 1.00 Weight (Pounds): 82 GEN: NAD, On Vent HEENT: NCAT, MMM, EOMI Pulm: Equal chest rise and fall B/L, NO accessory muscle use ABD: Soft, ND Laboratory Tests Test 02/16/20 12:37 02/16/20 17:51 POC Whole Blood Glucose 87 MG/DL (74-106) 96 MG/DL (74-106) Current Medications Medications (Trade) Dose Ordered Sig/Villa Route PRN Reason Start Time Stop Time Status Last Admin Dose Admin Acetaminophen (Tylenol) 650 mg Q4H PRN GT Temp >100.5 02/01/20 20:30 03/02/20 20:29 02/14/20 20:50 Ascorbic Acid (Vitamin C) 500 mg DAILY GT 01/28/20 09:30 02/27/20 09:29 02/17/20 09:00 Clonazepam (KlonoPIN) 1 mg EVERY 8 HOURS GT 02/14/20 14:00 02/21/20 13:59 02/17/20 05:26 Dextrose/Sodium Chloride 1,000 ml @ 75 mls/hr [id number] IV 01/29/20 13:00 02/27/20 12:59 02/17/20 03:57 Famotidine (Pepcid I.v.) 20 mg Q12HR IVP 01/29/20 21:00 02/28/20 20:59 02/17/20 09:01 Gabapentin (Neurontin) 900 mg TID GT 01/28/20 09:30 02/19/20 09:29 02/17/20 09:04 Midodrine (Pro-Amatine) 10 mg TID GT 02/07/20 18:00 04/21/20 17:59 02/17/20 08:59 Multivitamins (Multivitamins W/ Minerals 15ml Liquid) 15 ml DAILY GT 01/28/20 09:30 02/27/20 09:29 02/17/20 08:59 Pantoprazole (Protonix) 40 mg EVERY 12 HOURS IVP 01/31/20 09:30 03/01/20 09:29 02/17/20 09:01 Potassium Chloride (K-Dur) 40 meq TWICE A DAY ORAL 02/02/20 18:00 05/02/20 17:59 02/17/20 09:00 Sucralfate (Carafate) 1 gm FOUR TIMES A DAY ORAL 01/30/20 09:00 04/29/20 08:59 02/17/20 09:00 Thiamine HCl (Vitamin B1) 100 mg DAILY GT 01/28/20 09:30 02/27/20 09:29 02/17/20 08:59 Jesus Hanson MD Feb 17, 2020 09:05
--- NOTE | 2020-02-17 09:08 | Surgery Progress Note ---
Surgery Progress Note Subjective Symptoms: improved, tolerating diet, passing flatus, BM Objective Last 24 Hour Vital Signs Date Time Temp Pulse Resp B/P (MAP) Pulse Ox O2 Delivery O2 Flow Rate FiO2 02/17/20 06:50 73 16 40 02/17/20 04:17 82 02/17/20 04:00 97.2 65 18 97/64 (75) 99 65 02/17/20 04:00 Mechanical Ventilator 02/17/20 04:00 35 02/17/20 03:16 66 17 28 02/17/20 00:00 Mechanical Ventilator 02/17/20 00:00 99.0 56 15 101/66 (78) 100 66 02/17/20 00:00 65 02/16/20 23:41 76 20 28 02/16/20 20:00 55 02/16/20 20:00 35 02/16/20 20:00 Mechanical Ventilator 02/16/20 20:00 97.5 60 14 96/53 (67) 98 02/16/20 19:49 71 16 28 02/16/20 16:10 Mechanical Ventilator 02/16/20 16:00 35 02/16/20 16:00 80 02/16/20 16:00 98.2 79 19 130/51 (77) 100 02/16/20 14:40 77 19 28 02/16/20 12:00 Mechanical Ventilator 02/16/20 12:00 35 02/16/20 12:00 97.6 72 17 110/62 (78) 100 02/16/20 11:30 52 02/16/20 11:12 77 16 28 I&O Intake and Output 02/16/20 02/17/20 19:00 07:00 Intake Total 920 ml 1605 ml Balance 920 ml 1605 ml Intake Free Water 200 ml 100 ml IV Total 225 ml 900 ml Tube Feeding 495 ml 605 ml # Bowel Movements 4 4 Dressing: saturated Cardiovascular: RSR Respiratory: decreased breath sounds Abdomen: non-tender, present bowel sounds Extremities: no edema, no tenderness, no cyanosis Laboratory Tests Test 02/16/20 12:37 02/16/20 17:51 POC Whole Blood Glucose 87 MG/DL (74-106) 96 MG/DL (74-106) Plan Problems: (1) Pneumonia (2) Sepsis Assessment & Plan: leukocytosis anemia lactic acidosis agree with GI recommend EGD planned for 12/31 hold feeding for now trend h/h monitor for bleeding no acute hemorrhage will be available in event needs exploration for hemostasis prbc as per heme thank you will follow with recs cont abx worsening wbc wbc trending down comfortable appearing no n/v hypotensive in ICU again worse pending CT results - noted PICC ordered improving wbc improved labs and micro trending labs improved wbc resolved prognosis guarded Pt presented on admission in emaciated state. Pt has tracheostomy and GT. NO skin concerns noted to skin under collar of trach. NO erythema or evidence of skin erosion at GT site. Pt noted to have scaly pimple-like rash with webbing noted to R and L axillae, undersides of both breasts, Bilat groin and lower back. Tracking and webbing noted to hands and feet. Pt restless and scratching at skin. Non-Blanching erythema without induration or fluctuance noted to R and L hips and trochanteric areas.Non-blanching erythema noted along spine. Non-Blanching erythema without induration noted to Sacrum. Non-Blanching erythema noted to R and L Malleoli and both heels. Tx.Plan: Please apply Cavilon Skin Barrier to each bony Prominences at risks for Skin Breakdown. Cover each area with Optifoam drsgs. Change every 7 days and prn. Apply Moisture Barrier Paste to Sacrum. Cover with Optifoam drsg. Change every 3 days and prn. Reposition at least every 2hours or as tolerated. Off-load heels with pillow. APM/EMELI Mattress overlay. improving cont current care plan Incontinent social dermatitis noted around the bilateral groin creases and vagi nal area. Site clean. Monitor for incontinence. There is marked enlargement of the third and lateral ventricles and extra axial CSF spaces, in particular the former. There is considerable periventricular deep white matter low-attenuation. Otherwise normal mobley-white differentiation. No acute hemorrhage or edema. No mass effect nor midline shift. Visualized orbits and sinuses are unremarkable. The calvarium is intact Impression: Third and lateral ventriculomegaly. Associated enlargement of the extra axial CSF spaces indicates that this is probably due to central volume loss, but the possibility of hydrocephalus should also be considered. At the degree of volume loss is considerably out of proportion to patient's age. Correlate with clinical history Periventricular deep white matter low-attenuation. Probably on the basis of microvascular ischemic change but given patient's age the possibility of demyelinating disease should be considered as well. Negative for acute intracranial bleed or mass effect ABDOMEN: Liver: Unremarkable. Gallbladder and bile ducts: Cholecystectomy. No ductal dilation. Pancreas: Unremarkable. No ductal dilation. Spleen: Unremarkable. No splenomegaly. Adrenals: Unremarkable. No mass. Kidneys and ureters: Unremarkable. No obstructing stones. No hydronephrosis. Stomach and bowel: Operative bowel findings. Diffuse small bowel wall thickening with areas of distention and fluid-filled colonic loops. No clear focal transition point to suggest small bowel obstruction. PELVIS: Appendix: Appendix not identified. Bladder: Urinary bladder wall thickening could be incidental, due to high outlet pressures, or could represent cystitis. No stones. Reproductive: Unremarkable as visualized. ABDOMEN and PELVIS: Intraperitoneal space: Large low-attenuation pelvic fluid of uncertain significance, potentially reactive. No free air. Bones/joints: No acute fracture. No dislocation. Soft tissues: Bilateral buttock injection granulomas. Vasculature: Unremarkable. No abdominal aortic aneurysm. Lymph nodes: Unremarkable. No enlarged lymph nodes. Tubes, lines and devices: Percutaneous gastrostomy tube adequately positioned in the stomach. Rectal tube. Other findings: No perforation seen. IMPRESSION: 1. Study substantially limited due to lack of IV contrast. 2. Findings most compatible with ileus and probable infectious or inflammatory enteritis or enterocolitis. 3. Large low-attenuation pelvic fluid of uncertain significance, potentially reactive. 4. Appendix not identified. 5. Percutaneous gastrostomy tube adequately positioned in the stomach. Rectal tube. 6. Urinary bladder wall thickening could be incidental, due to high outlet pressures, or could represent cystitis. 7. Cholecystectomy. (3) GI bleed (4) G tube feedings Assessment & Plan: DAILY ESTIMATED NEEDS: Needs based on Underweight, critical care 37.3kg 30-40 kcals/kg 0162-7465 total kcals 1.25-2 g protein/kg 47-75 g total protein 25-35 mL/kg 933-1306 total fluid mLs NUTRITION DIAGNOSIS: Increased kcal and pro needs r/t underweight status as evidenced by BMI 14.1, pt is 68% of ideal body weight w/ generalized severe wasting, trach and peg dep. CURRENT TF:Vital AF 1.2 @55 x20 hrs ENTERAL NUTRITION RECOMMENDATIONS: Vital AF 1.2 @ 55ml/hr x20 hrs to provide 1100ml 1320kcal 83g prot, 892ml free water - Rec to continue elemental TF formula while stool C-diff positive, +LBM - HOLD 1HR BEFORE AND AFTER SYNTHROID MEDS - Flush per MD. HOB over 30 degrees ADDITIONAL RECOMMENDATIONS: 1) Per SNF: 5'4" and 81# Maintain calibrated bed scale wts w/ added P200 mattress 2) Lytes daily madhav w/ loose stools, replete as needed 3) Skin integrity: Continue BRIAN VIA GT BID + Vit C 4) Accuchecks for Hypoglycemia 5) Add probiotics for stool C-diff+ . George Woods Feb 17, 2020 09:08
--- NOTE | 2020-02-17 13:31 | Nephrology Progress Note ---
Assessment/Plan Problem List: (1) RICHARD (acute kidney injury) (2) Dehydration (3) Anemia (4) GI bleed (5) Malnutrition (6) Seizure disorder (7) Electrolyte imbalance Assessment Renal failure, in the form of prerenal azotemia, most likely secondary to GI bleed GI bleed, leading to severe anemia Sepsis, pneumonia Chronic tracheostomy, ventilator dependent History of CVA History of seizure disorder History of psychiatric disorder Severe malnutrition Electrolyte abnormalities Plan February 16: No chemistry panel done today. Vital signs stable. Stable from renal standpoint of view for discharge. February 15: Stable from renal standpoint of view. Okay to discharge from renal standpoint of view. February 14: No chemistry panel done today. Clinically remains stable. Continue per PMD. February 13: Status quo. Stable from renal standpoint of view. February 12: Stable from renal standpoint of view. Remains full code on ventilator. Continue per PMD. February 11: Today's labs reviewed. Full code. On ventilator. Abnormal electrolytes addressed. February 10: No can panel done today. Full code. On ventilator. Will order lab tomorrow. February 09: No chemistry panel done today. Remains full code. Remains on ventilator. Continue per PMD. February 08: Labs reviewed. Electrolyte abnormalities addressed. Patient full code. Continue per current management. February 07: No chemistry panel done today. Remains stable from renal standpoint of view. Patient is full code. Order lab tomorrow. February 06: No chemistry panel drawn today. Clinically remains stable from renal standpoint of view. Patient is full code. February 05: Phosphorus and magnesium supplement given. Stable from renal standpoint of view. Remains full code February 04: No chemistry panel done today. Remains stable from renal standpoint of view. Continue to monitor renal parameters. February 03: Labs reviewed. Renal parameters stable. Continue her consultants. February 02: Lab reviewed. Low phosphorus low magnesium corrections ordered. Continue to monitor electrolytes and renal parameters. February 01: Lab reviewed. Low phosphorus and low magnesium replaced. Low potassium replaced. Continue to monitor electrolytes. Continue per consultants. January 31: Lab reviewed. Hemoglobin higher. Renal parameters stable. Potassium and phosphorus supplement given. January 30: Labs reviewed. Low mag low phosphorus and low potassium replaced. White blood cells 16,000 today. Remains full code. Continue to monitor hemoglobin and hematocrit and electrolytes. January 29: Labs reviewed. Magnesium, potassium, phosphorus supplement given. White blood cells down to 22,000. Remains full code. Continue per market consultant s. RN reports rectal bleed. Hemoglobin drifting down. Defer management to bread dough mixer who is already on the case. January 28: Status quo. Electrolyte abnormalities noted. Mag Phos and potassium supplement IV given. Renal parameters stable. Continue per consultants. Leukocytosis persists. January 27: Significant rise in white blood cell counts. Hypotensive. Now in ICU. Will give albumin bolus. Continue to monitor renal parameters. Continue per ID advice. January 26: Continue to monitor renal parameters. Patient remains on ventilator. Patient is full code. Continue per consultants. January 25: Status quo. Labs reviewed. Continue per consultants. January 24: Status unchanged. Labs reviewed. Remains stable from renal standpoint of view. January 23: Back in [place]. Stable from renal standpoint of view. Continue per consultants. January 22: Patient in ICU now. Vital signs and heart rate and blood pressure appears to be stable. Patient had an episode of bradycardia but it was resolved. TSH level today is very low will cut down on Synthroid dose. January 21: Today's labs are reviewed. Stable renal parameters. Continue per consultants. January 20: Labs reviewed. Renal parameters stable. January 19: Labs reviewed. Stable from renal standpoint. January 18: No labs done today. Continue per consultants. Medications reviewed. January 17: Late note entry due to system problem at the [facility] [place].Chemistry panel reviewed. Stable from renal standpoint of view. Continue per current management. January 16: No can panel today. Check lab tomorrow. Remains stable from renal standpoint of view. January 15: Lab reviewed. Renal parameters stable. January 14: Lab reviewed. Renal parameters stable. January 13: Labs reviewed. Stable from renal standpoint of view. January 12: Labs reviewed. Stable from renal standpoint of view January 11: No labs drawn today stable from renal standpoint of view January 10: Labs reviewed. Potassium supplement given. Continue per cons ultants. January 09: Lab reviewed. Potassium supplement given. IV fluid discontinued. January 08: Lab reviewed. Renal parameters stable. Continue per consultants. January 07: Lab reviewed. Renal parameters stable. Continue per consultants. January 06: Lab reviewed. Stable from renal standpoint of view. January 05: Labs reviewed. Stable from renal standpoint of view. Continue per consultants. January 04: No labs drawn today. Will check labs tomorrow. Continue per consultants. January 03: Lab reviewed. Renal parameters stable. IV fluid discontinued. High LFTs declining. Continue same. January 02: Lab reviewed. Renal parameters stable. Continue per PMD and consultants. LFTs remain elevated. Continue to monitor. Continue slow hydration Discontinue blood pressure medications as her blood pressure is low Discontinue diuretics Monitor renal parameters Transfusion as needed GI evaluation Correct electrolyte abnormalities Check B12 level, folate, and thyroid function tests: Results noted Subjective ROS Limited/Unobtainable: Yes Objective Objective Last 24 Hour Vital Signs Date Time Temp Pulse Resp B/P (MAP) Pulse Ox O2 Delivery O2 Flow Rate FiO2 02/17/20 12:35 55 96/55 (69) 02/17/20 12:00 97.7 65 16 81/55 (64) 98 71 02/17/20 12:00 65 02/17/20 12:00 Mechanical Ventilator 02/17/20 11:57 35 02/17/20 08:00 35 02/17/20 08:00 78 02/17/20 08:00 Mechanical Ventilator 02/17/20 08:00 97.7 71 16 106/66 (79) 94 71 02/17/20 06:50 73 16 40 02/17/20 04:17 82 02/17/20 04:00 97.2 65 18 97/64 (75) 99 65 02/17/20 04:00 Mechanical Ventilator 02/17/20 04:00 35 02/17/20 03:16 66 17 28 02/17/20 00:00 Mechanical Ventilator 02/17/20 00:00 99.0 56 15 101/66 (78) 100 66 02/17/20 00:00 65 02/16/20 23:41 76 20 28 02/16/20 20:00 55 02/16/20 20:00 35 02/16/20 20:00 Mechanical Ventilator 02/16/20 20:00 97.5 60 14 96/53 (67) 98 02/16/20 19:49 71 16 28 02/16/20 16:10 Mechanical Ventilator 02/16/20 16:00 35 02/16/20 16:00 80 02/16/20 16:00 98.2 79 19 130/51 (77) 100 02/16/20 14:40 77 19 28 Intake and Output 02/16/20 02/17/20 19:00 07:00 Intake Total 920 ml 1605 ml Balance 920 ml 1605 ml Intake Free Water 200 ml 100 ml IV Total 225 ml 900 ml Tube Feeding 495 ml 605 ml # Bowel Movements 4 4 No chemistry panel done today laboratory Tests 02/16/20 17:51: POC Whole Blood Glucose 96 Height (Feet): 5 Height (Inches): 1.00 Weight (Pounds): 82 General Appearance: no apparent distress EENT: other - Trach and vent Cardiovascular: normal rate Respiratory/Chest: decreased breath sounds Abdomen: soft Objective No change Chivo Holloway MD Feb 17, 2020 13:31
--- NOTE | 2020-02-17 23:19 | Cardiology Progress Note ---
Assessment/Plan Assessment/Plan 1. Septic shock, continue midodrine. 2. Sinus bradycardia, recurrent likely due to midodrine, asymptomatic, continue observation. 3. Anemia of chronic disease. 4. Acute renal failure, resolved. 5. GI bleeding due to gastric ulceration. 6. Dysphagia, s/p PEG placement, s/p EGD. 7. VDRF, s/p tracheostomy tube placement. Subjective Subjective Sinus bradycardia at rate of 54. On the vent with FiO2 of 35%. Objective Last 24 Hour Vital Signs Date Time Temp Pulse Resp B/P (MAP) Pulse Ox O2 Delivery O2 Flow Rate FiO2 02/17/20 22:49 54 23 40 02/17/20 20:00 97.9 72 18 127/72 (90) 99 02/17/20 20:00 56 02/17/20 19:18 74 19 40 02/17/20 16:00 35 02/17/20 16:00 98.6 53 16 92/51 (65) 97 53 02/17/20 16:00 71 02/17/20 16:00 Mechanical Ventilator 02/17/20 15:40 70 16 40 02/17/20 12:35 55 96/55 (69) 02/17/20 12:00 97.7 65 16 81/55 (64) 98 71 02/17/20 12:00 65 02/17/20 12:00 Mechanical Ventilator 02/17/20 11:57 35 02/17/20 11:17 63 17 40 02/17/20 08:00 35 02/17/20 08:00 78 02/17/20 08:00 Mechanical Ventilator 02/17/20 08:00 97.7 71 16 106/66 (79) 94 71 02/17/20 06:50 73 16 40 02/17/20 04:17 82 02/17/20 04:00 97.2 65 18 97/64 (75) 99 65 02/17/20 04:00 Mechanical Ventilator 02/17/20 04:00 35 02/17/20 03:16 66 17 28 02/17/20 00:00 Mechanical Ventilator 02/17/20 00:00 99.0 56 15 101/66 (78) 100 66 02/17/20 00:00 65 02/16/20 23:41 76 20 28 Intake and Output 10/2/20 10/3/20 19:00 07:00 Intake Total 920 ml 1605 ml Balance 920 ml 1605 ml Intake Free Water 200 ml 100 ml IV Total 225 ml 900 ml Tube Feeding 495 ml 605 ml # Bowel Movements 4 4 2D Echo: LVEF 65%, RVSP 23 mmHg, Grade I LVDD Objective HEENT: PERRLA, EOMI, +Trach tube. NECK: Cannot assess JVP, no carotid bruit with normal upstroke. LUNGS: Bilateral rhonchi. CARDIAC: Regular rhythm and rate. Normal S1, S2, bradycardic, no murmurs, gallops or rubs. ABDOMEN: Soft with G-tube. No hepatomegaly. EXTREMITIES: No edema, clubbing or cyanosis. Desmond Gleason MD Feb 17, 2020 23:19
[2020-02-18] VITALS: BP 93/63
[2020-02-18 04:00] VITALS: BP 101/69
[2020-02-18] MEDS: D5 1/2NS 1,000 ML IV SCH ×2 (06:51→20:35)
[2020-02-18 08:00] VITALS: BP 113/57
--- NOTE | 2020-02-18 08:32 | Pulmonology Progress Note ---
Ivanna Mora HOSPICE VOLUNTEER 02/18/20 0832: Subjective ROS Limited/Unobtainable: Yes Allergies: Coded Allergies: CARBAMAZEPINE (Verified Allergy, Unknown, 12/31/19) LORAZEPAM (Verified Allergy, Unknown, 12/31/19) Subjective in [place] no signs of resp distress on current vent settings on Midodrine, off Dopamine gtt remains afebrile CXR 02/09 - no definite infiltrate repeated venous Duplex BLE NGT dc plan in progress , awaiting for disposition Objective Last 24 Hour Vital Signs Date Time Temp Pulse Resp B/P (MAP) Pulse Ox O2 Delivery O2 Flow Rate FiO2 02/18/20 08:00 35 02/18/20 07:28 68 23 40 02/18/20 04:00 35 02/18/20 04:00 87 02/18/20 04:00 97.5 81 23 101/69 (80) 99 02/18/20 03:52 Mechanical Ventilator 02/18/20 02:35 57 19 40 02/18/20 00:00 Mechanical Ventilator 02/18/20 00:00 84 02/18/20 00:00 35 02/18/20 00:00 97.7 67 15 93/63 (73) 100 02/17/20 22:49 54 23 40 02/17/20 20:00 97.9 72 18 127/72 (90) 99 02/17/20 20:00 Mechanical Ventilator 02/17/20 20:00 56 02/17/20 20:00 35 02/17/20 19:18 74 19 40 02/17/20 16:00 35 02/17/20 16:00 98.6 53 16 92/51 (65) 97 53 02/17/20 16:00 71 02/17/20 16:00 Mechanical Ventilator 02/17/20 15:40 70 16 40 02/17/20 12:35 55 96/55 (69) 02/17/20 12:00 97.7 65 16 81/55 (64) 98 71 02/17/20 12:00 65 02/17/20 12:00 Mechanical Ventilator 02/17/20 11:57 35 02/17/20 11:17 63 17 40 Intake and Output 02/17/20 02/18/20 19:00 07:00 Intake Total 55 ml 605 ml Balance 55 ml 605 ml Tube Feeding 55 ml 605 ml # Bowel Movements 4 4 Objective General Appearance: bedridden, pale, chronically ill looking, older than her biological age ; vent dependent female ; on vent SIMV 450-30%-12, PEEP 5 Lines, tubes and drains: trach HEENT: normocephalic, atraumatic Neck: trach - Portex #7, secretions small amount, yellow color, thin co nsistency Respiratory/Chest: CTAB Cardiovascular/Chest: regular rate, regular rhythm Abdomen: non tender, soft, G tube , Genitourinary/Rectal: [place] Extremities: no edema, muscle atrophy Neurologic: abnormal gait, awake, poorly responsive Musculoskeletal: atrophy BLE Skin: multiple tattoos Current Medications Medications (Trade) Dose Ordered Sig/Villa Route PRN Reason Start Time Stop Time Status Last Admin Dose Admin Acetaminophen (Tylenol) 650 mg Q4H PRN GT Temp >100.5 02/01/20 20:30 03/02/20 20:29 02/14/20 20:50 Ascorbic Acid (Vitamin C) 500 mg DAILY GT 01/28/20 09:30 02/27/20 09:29 02/17/20 09:00 Clonazepam (KlonoPIN) 1 mg EVERY 8 HOURS GT 02/14/20 14:00 02/21/20 13:59 02/18/20 06:50 Dextrose/Sodium Chloride 1,000 ml @ 75 mls/hr [id number] IV 01/29/20 13:00 02/27/20 12:59 02/18/20 06:51 Famotidine (Pepcid I.v.) 20 mg Q12HR IVP 01/29/20 21:00 02/28/20 20:59 02/17/20 21:15 Gabapentin (Neurontin) 900 mg TID GT 01/28/20 09:30 02/19/20 09:29 02/17/20 18:27 Midodrine (Pro-Amatine) 10 mg TID GT 02/07/20 18:00 04/21/20 17:59 02/17/20 18:27 Multivitamins (Multivitamins W/ Minerals 15ml Liquid) 15 ml DAILY GT 01/28/20 09:30 02/27/20 09:29 02/17/20 08:59 Pantoprazole (Protonix) 40 mg EVERY 12 HOURS IVP 01/31/20 09:30 03/01/20 09:29 02/17/20 21:15 Potassium Chloride (K-Dur) 40 meq TWICE A DAY ORAL 02/02/20 18:00 05/02/20 17:59 02/17/20 18:28 Sucralfate (Carafate) 1 gm FOUR TIMES A DAY ORAL 01/30/20 09:00 04/29/20 08:59 02/17/20 21:16 Thiamine HCl (Vitamin B1) 100 mg DAILY GT 01/28/20 09:30 02/27/20 09:29 02/17/20 08:59 Assessment/Plan Assessment/Plan ASSESSMENT VDRF/trach status Sepsis Possible pneumonia UTI recurrent GI bleeding severe C dif colitis Anemia secondary to GI bleeding Aspiration risk Dysphagia, feeding by G-tube Encephalopathy Acute kidney injury likely secondary to dehydration Recurrent bradycardia persistent Hypotension -improving Electrolyte imbalance Severe protein calorie malnutrition Hx of hypertension History of CVA Seizure disorder with witnessed seizure episode 01/07 Psychiatric disorder Presumed scabies, s/p Rx Thrombocytopenia-transient- resolved PLAN OF CARE [place] off Dopamine gtt, BP better with Midodrine only on IVF, vent support, pulm toilet ABG stable on current settings on SIMV mode 450-30-12 PEEP5 , no signs of resp distress on these settings keep settings as is and titrate as needed CXR 01/27 no acute disease pulm toilet via [facility] CT chest 01/28 - with tree-in-bud nodular opacities in the medial left base and lingula with left bronchial bubbly material suggesting infectious or inflammatory bronchiolitis, likely due to aspiration. Small amount of similar foci seen in the right posterior lower lobe. Mild bronchiectasis and reticulation in the lingula, medial left base, and superior left upper lobe could also be due to chronic infection. CXR 02/01 -Interval development of retrocardiac airspace opacities which could represent atelectasis versus developing consolidation. probably ATX , given no fevers, resolved leukocytosis, no resp distress on current settings CXR 02/04 Bilateral mostly interstitial opacities; suspect largely chronic although there may be an acute component at the left lung base. The latter does appear somewhat improved since the previous exam. CXR 02/09 -> no definite infiltrate pancx-per ID CXR 01/13- no acute findings KUB 01/13- no acute findings UA + yeast , 01/12 UCX +yeast, started on Fluconazole 01/14 as per ID -completed BCX 01/12 NGTD BCX 01/26 and 01/27 NGTD Vanco po was prior dc and switched to Dificid , also on Flagyl per GI -till 01/28 , both extended till , completed inflammatory markers : ESR-42, CRP- wnl WBC smear NGT C dif a/b 01/30 NGT less output from rectal tube UCX 01/27 + Klebs CR- started on Gent per ID recs given prior leukocytosis and fevers SCX 02/02 + Serratia,Pseudomonas abx as per ID recs , Gent completed 02/10 ( prior extended for 3 days given mild leuk and fever), mild leuk this am ; no fevers CXR 02/09 no significant findings, no definite infiltrate CT C/ A/P noted ( see results of CT chest above), CT A/P with findings most compatible with ileus and probable infectious or inflammatory enteritis or enterocolitis. off cefepime rapid COVID 19 NGT in ED aspiration precautions Venous Duplex BLE -negative, get SCD ( unable to give a/c given anemia) closely monitor hemodynamic status repeated Venous Duplex BLE NGT heme and GI follows s/p prior EGD 01/01 -> gastric ulcer across G tube site , no active bleeding s/p EGD 01/30 -> gastric ulceration without visible bleeding Protonix IV bid ( changed from Protonix gtt), Carafate GT feeding resumed as per GI , s/p blood tx 01/30 stool OB positive , another pending transfuse to keep Hgb > 7. HH at baseline trend LFT-> trended down, hep panel NGT hx of cirrhosis- per GI management monitor renal parameters, lytes, avoid nephrotoxic IVF BUN trending down, creat stable, likely prerenal due to dehydration replace e/lytes as per nephro recs , monitor volumes seizure precautions, antiepileptic optimized as per neuro recs ammonia 49, fup with further neuro recs EEG - grossly abnormal; mild to mod encephalopathy, single ictal episode CT head no acute IC pathology BP management with current regimen SNF meds supportive care dietary recs s/p 12/31 Rx for presumed scabies with permethrin and Ivermectin, repeated Ivermectin 01/08 dc plan for today as per primary case discussed and evaluated by supervising physician Jeyson Anderson MD 02/18/20 1341: Subjective Allergies: Coded Allergies: CARBAMAZEPINE (Verified Allergy, Unknown, 12/31/19) LORAZEPAM (Verified Allergy, Unknown, 12/31/19) Assessment/Plan Assessment/Plan Patient seen and examined with HOSPICE VOLUNTEER and I agree with the above formulated assessment and plan. Ivanna Mora NP Feb 18, 2020 08:32 Jeyson Anderson MD Feb 18, 2020 13:41
[2020-02-18] MEDS: Multivitamins W/Minerals 15 ML UDC GT SCH (09:06)
[2020-02-18] MEDS: Sucralfate 1gm tab ORAL SCH ×4 (09:06→20:33)
[2020-02-18] MEDS: Thiamine 100mg tab GT SCH (09:06)
[2020-02-18] MEDS: Midodrine 10mg tab GT SCH ×3 (09:07→17:48)
[2020-02-18] MEDS: Ascorbic Acid 500mg tab GT SCH (09:07)
[2020-02-18] MEDS: Gabapentin 300 MG/6 ML Soln GT SCH ×3 (09:08→17:48)
[2020-02-18] MEDS: Pantoprazole Inj IVP SCH ×2 (09:08→20:33)
--- NOTE | 2020-02-18 09:29 | General Progress Note ---
Subjective ROS Limited/Unobtainable: No Allergies: Coded Allergies: CARBAMAZEPINE (Verified Allergy, Unknown, 12/31/19) LORAZEPAM (Verified Allergy, Unknown, 12/31/19) Objective Last 24 Hour Vital Signs Date Time Temp Pulse Resp B/P (MAP) Pulse Ox O2 Delivery O2 Flow Rate FiO2 02/18/20 08:00 35 02/18/20 08:00 98.3 97 18 113/57 (75) 96 02/18/20 07:28 68 23 40 02/18/20 04:00 35 02/18/20 04:00 87 02/18/20 04:00 97.5 81 23 101/69 (80) 99 02/18/20 03:52 Mechanical Ventilator 02/18/20 02:35 57 19 40 02/18/20 00:00 Mechanical Ventilator 02/18/20 00:00 84 02/18/20 00:00 35 02/18/20 00:00 97.7 67 15 93/63 (73) 100 02/17/20 22:49 54 23 40 02/17/20 20:00 97.9 72 18 127/72 (90) 99 02/17/20 20:00 Mechanical Ventilator 02/17/20 20:00 56 02/17/20 20:00 35 02/17/20 19:18 74 19 40 02/17/20 16:00 35 02/17/20 16:00 98.6 53 16 92/51 (65) 97 53 02/17/20 16:00 71 02/17/20 16:00 Mechanical Ventilator 02/17/20 15:40 70 16 40 02/17/20 12:35 55 96/55 (69) 02/17/20 12:00 97.7 65 16 81/55 (64) 98 71 02/17/20 12:00 65 02/17/20 12:00 Mechanical Ventilator 02/17/20 11:57 35 02/17/20 11:17 63 17 40 Intake and Output 02/17/20 02/18/20 18:59 06:59 Intake Total 55 ml 605 ml Balance 55 ml 605 ml Tube Feeding 55 ml 605 ml # Bowel Movements 4 4 Height (Feet): 5 Height (Inches): 1.00 Weight (Pounds): 82 General Appearance: no apparent distress EENT: normal ENT inspection Neck: supple Cardiovascular: normal rate Respiratory/Chest: decreased breath sounds Abdomen: normal bowel sounds, non tender, soft Extremities: non-tender Assessment/Plan Problem List: (1) G tube feedings ICD Codes: Z93.1 - Gastrostomy status SNOMED: 822621826, 942321434, 256100820 (2) GI bleed ICD Codes: K92.2 - Gastrointestinal hemorrhage, unspecified SNOMED: 29393188 (3) Sepsis ICD Codes: A41.9 - Sepsis, unspecified organism SNOMED: 66365092 (4) Pneumonia ICD Codes: J18.9 - Pneumonia, unspecified organism SNOMED: 793929384 Status: stable, other - Patient is now hypotensive before over 46 she will receive 500 cc of normal saline bolus to be repeated blood pressure remained below 90 further management will be decided following the boluses treatment repeat laboratory tests will be done in a.m. GME MCKAY MD Assessment/Plan: s/p EGD gastric ulcer monitor H&H C. Diff positive>> now neg GTF prn Imodium ppi will fu Satish Carrillo MD Feb 18, 2020 09:29
--- NOTE | 2020-02-18 11:42 | Nephrology Progress Note ---
Assessment/Plan Problem List: (1) IRCHARD (acute kidney injury) (2) Dehydration (3) Anemia (4) GI bleed (5) Malnutrition (6) Seizure disorder (7) Electrolyte imbalance Assessment Renal failure, in the form of prerenal azotemia, most likely secondary to GI bleed GI bleed, leading to severe anemia Sepsis, pneumonia Chronic tracheostomy, ventilator dependent History of CVA History of seizure disorder History of psychiatric disorder Severe malnutrition Electrolyte abnormalities Plan February 17: No chemistry panel done today. Patient discharge is still pending due to logistical issues. Will check lab tomorrow. Stable from renal standpoint of view. February 16: No chemistry panel done today. Vital signs stable. Stable from renal standpoint of view for discharge. February 15: Stable from renal standpoint of view. Okay to discharge from renal standpoint of view. February 14: No chemistry panel done today. Clinically remains stable. Continue per PMD. February 13: Status quo. Stable from renal standpoint of view. February 12: Stable from renal standpoint of view. Remains full code on ventilator. Continue per PMD. February 11: Today's labs reviewed. Full code. On ventilator. Abnormal imani ctrolytes addressed. February 10: No can panel done today. Full code. On ventilator. Will order lab tomorrow. February 09: No chemistry panel done today. Remains full code. Remains on ventilator. Continue per PMD. February 08: Labs reviewed. Electrolyte abnormalities addressed. Patient full code. Continue per current management. February 07: No chemistry panel done today. Remains stable from renal standpoint of view. Patient is full code. Order lab tomorrow. February 06: No chemistry panel drawn today. Clinically remains stable from renal standpoint of view. Patient is full code. February 05: Phosphorus and magnesium supplement given. Stable from renal standpoint of view. Remains full code February 04: No chemistry panel done today. Remains stable from renal standpoint of view. Continue to monitor renal parameters. February 03: Labs reviewed. Renal parameters stable. Continue her consultants. February 02: Lab reviewed. Low phosphorus low magnesium corrections ordered. Continue to monitor electrolytes and renal parameters. February 01: Lab reviewed. Low phosphorus and low magnesium replaced. Low potassium replaced. Continue to monitor electrolytes. Continue per consultants. January 31: Lab reviewed. Hemoglobin higher. Renal parameters stable. Potassium and phosphorus supplement given. January 30: Labs reviewed. Low mag low phosphorus and low potassium replaced. White blood cells 16,000 today. Remains full code. Continue to monitor hemoglobin and hematocrit and electrolytes. January 29: Labs reviewed. Magnesium, potassium, phosphorus supplement given. White blood cells down to 22,000. Remains full code. Continue per consultants. RN reports rectal bleed. Hemoglobin drifting down. Defer management to medicare sales executive who is already on the case. January 28: Status quo. Electrolyte abnormalities noted. Mag Phos and potassium supplement IV given. Renal parameters stable. Continue per consultants. Leukocytosis persists. January 27: Significant rise in white blood cell counts. Hypotensive. Now in ICU. Will give albumin bolus. Continue to monitor renal parameters. Continue per ID advice. January 26: Continue to monitor renal parameters. Patient remains on ventilator. Patient is full code. Continue per consultants. January 25: Status quo. Labs reviewed. Continue per consultants. January 24: Status unchanged. Labs reviewed. Remains stable from renal standpoint of view. January 23: Back in [facility]. Stable from renal standpoint of view. Continue per consultants. January 22: Patient in ICU now. Vital signs and heart rate and blood pressure appears to be stable. Patient had an episode of bradycardia but it was resolved. TSH level today is very low will cut down on Synthroid dose. January 21: Today's labs are reviewed. Stable renal parameters. Continue per consultants. January 20: Labs reviewed. Renal parameters stable. January 19: Labs reviewed. Stable from renal standpoint. January 18: No labs done today. Continue per consultants. Medications reviewed. January 17: Late note entry due to system problem at the [facility] today.Chemistry panel reviewed. Stable from renal standpoint of view. Continue per current management. January 16: No can panel today. Check lab tomorrow. Remains stable from renal standpoint of view. January 15: Lab reviewed. Renal parameters stable. January 14: Lab reviewed. Renal parameters stable. January 13: Labs reviewed. Stable from renal standpoint of view. January 12: Labs reviewed. Stable from renal standpoint of view January 11: No labs drawn today stable from renal standpoint of view January 10: Labs reviewed. Potassium supplement given. Continue per consultants. January 09: Lab reviewed. Potassium supplement given. IV fluid discontinued. January 08: Lab reviewed. Renal parameters stable. Continue per consultants. January 07: Lab reviewed. Renal parameters stable. Continue per consultants. January 06: Lab reviewed. Stable from renal standpoint of view. January 05: Labs reviewed. Stable from renal standpoint of view. Continue per consultants. January 04: No labs drawn today. Will check labs tomorrow. Continue per consultants. January 03: Lab reviewed. Renal parameters stable. IV fluid discontinued. High LFTs declining. Continue same. January 02: Lab reviewed. Renal parameters stable. Continue per PMD and consultants. LFTs remain elevated. Continue to monitor. Continue slow hydration Discontinue blood pressure medications as her blood pressure is low Discontinue diuretics Monitor renal parameters Transfusion as needed GI evaluation Correct electrolyte abnormalities Check B12 level, folate, and thyroid function tests: Results noted Subjective ROS Limited/Unobtainable: Yes Objective Objective Last 24 Hour Vital Signs Date Time Temp Pulse Resp B/P (MAP) Pulse Ox O2 Delivery O2 Flow Rate FiO2 02/18/20 08:00 35 02/18/20 08:00 98.3 97 18 113/57 (75) 96 02/18/20 07:28 68 23 40 02/18/20 04:00 35 02/18/20 04:00 87 02/18/20 04:00 97.5 81 23 101/69 (80) 99 02/18/20 03:52 Mechanical Ventilator 02/18/20 02:35 57 19 40 02/18/20 00:00 Mechanical Ventilator 02/18/20 00:00 84 02/18/20 00:00 35 02/18/20 00:00 97.7 67 15 93/63 (73) 100 02/17/20 22:49 54 23 40 02/17/20 20:00 97.9 72 18 127/72 (90) 99 02/17/20 20:00 Mechanical Ventilator 02/17/20 20:00 56 02/17/20 20:00 35 02/17/20 19:18 74 19 40 02/17/20 16:00 35 02/17/20 16:00 98.6 53 16 92/51 (65) 97 53 02/17/20 16:00 71 02/17/20 16:00 Mechanical Ventilator 02/17/20 15:40 70 16 40 02/17/20 12:35 55 96/55 (69) 02/17/20 12:00 97.7 65 16 81/55 (64) 98 71 02/17/20 12:00 65 02/17/20 12:00 Mechanical Ventilator 02/17/20 11:57 35 Intake and Output 02/17/20 02/18/20 19:00 07:00 Intake Total 55 ml 605 ml Balance 55 ml 605 ml Tube Feeding 55 ml 605 ml # Bowel Movements 4 4 Height (Feet): 5 Height (Inches): 1.00 Weight (Pounds): 82 General Appearance: WD/WN EENT: other - Trach to vent Cardiovascular: other - Variable rate Respiratory/Chest: decreased breath sounds Abdomen: soft Objective No change Chivo Holloway MD Feb 18, 2020 11:42
[2020-02-18 12:00] VITALS: BP 106/37
[2020-02-18] MEDS ORDERED: D5 1/2NS 1000ml IV ONE (13:58)
--- NOTE | 2020-02-18 14:06 | Hematology/Onc Progress Note ---
Assessment/Plan Assessment/Plan # Anemia rule out underlying gi bleed --> Dr. Carrillo has been consulted-->endosco gastric ulceration --> trend hgb 7-->7.4-->7.9-->8.1->9.6-->8.5->9.1-->10-->11-->10.3-->10.4-->11->9.8-->7.4 ->9-->10.5-->9.1-->8.7-->8.4-->8.6-->8.7-->8.8 --> anemia panel ordered-->reviewed --> prn transfusion --> protonix started # Leukocytosis is likely related to pna on imaging --> abx has been started --> Abx vanc/zosyn--> ceftriaxone-->vanc->fluc/flagyl/va nc-->flagyl/fidoxomicin->vanc/cefepime/flagyl-->gentamcinflagyl->off --> smear is noted --> wbc 25-->15-->14-->16->7.6-->12-->20 ->13->11->14-->33-->16->8->11-->12->10.5-->19 --> pressors prn # Thrombocytopenia med related v labs error --> plt trend 167-->61-->227->373->457 --> meds have been reviewed --> no hep or lovenox # Sepsis --> on abx for pna --> pressors as needed --> fluids as per pcp for hypotension # Pneumonia --> pulm, Dr. Esparza --> on abx started # Resp failure s/p aguilar/trach --> per pulm # Hypokalemia --> replete with k # RICHARD -> as per renal care # Dysphagia s/p gtube # Dvt ppx scds/protonix Appreciate cardiology consultant care, will follow Subjective Allergies: Coded Allergies: CARBAMAZEPINE (Verified Allergy, Unknown, 12/31/19) LORAZEPAM (Verified Allergy, Unknown, 12/31/19) All Systems: reviewed and negative except above Subjective 01/01 altered, trach, no bleedin wbc improved on abx, seen by gi 01/02 egd study noted, also with plts 61k, have vitaly Armendariz Rn, will recheck cbc 01/03 remains agitated, vitaly rn, no bleeding, cbc noted as well as id recs 01/04 on vent, with melena overnight, no bleeding, vitaly rn, labs reviewed 01/06 on vent, remains agitated, no bleeding, vitaly rn, smear is noted 01/07 on vent, restless, asymptomatic, noncooperative 01/[address] John obtained, reviewed, meds adjusted, eeg pending 01/09 labs noted, no bleeding, ativan has been discontinued, meds reviewed 01/10 trach to vent, agitated, with wrist restraints, no major changes, no bleeding 01/11 labs are reviewed, on trach to vent, no bleeding, agitated overnight, no complaints 01/13 labs noted, no bleeding, is on vent/trach, no bleeding, vitaly rn, labs are noted 01/14 labs are noted, no bleeding, remains on v/t, remains agitated, no bleeding 01/15 is c.diff positive, wbc higher at 21k, labs noted, on abx, reviewed gi, id r ecs 01/16 remains on vent, wbc is improved, in sr, as abx per id 01/17 recieved dopamine, tube feeds, on soft restraints, no bleeding, vitlay longoria 01/18 labs are noted, no bleeding, vitaly rn, no major changes 01/20 on dopamine gtt, with restraints, no major changes, labs noted 01/21 labs reviewed, no bleeding, vitaly rn, no major changes 01/22 transferred to icu for higher loc, dopamine on hold as bp is good, have increased Synthroid 01/23 labs are pending, meds noted, no bleeding, dopamine gtt ongoing, cbc noted 01/24 still nv, no bleeding, labs reviewed, vitaly longoria, with rectal tube in place, on dopamine gtt 01/25 is on bipap, nv, no bleeding, remains on low dose pressorm hgb 11 01/27 on dopamine, hr was elevated overnight, cards aware 01/28 on vent, with ivfs running, rectal tube with red blood noted, consider gi eval 01/29 on vent, labs reviewed, wbc 22, hgb 8.4, on abx currently, vanc/flagyl/cefepime 02/02 labs reviewed, no bleeding, on vent, no night sweats, wbc improved 02/03 is on gtube feeds, with trach to vent, oxygen as needed, labs wbc better 02/04 nv, is on gt, on vent, no bleeding, labs are noted, guarded prognosis 02/05 labs are noted, nv, is on gt feeds, no bleeding, abx as needed 02/06 labs reviewed, is on tube feeds, on vent, nv, no bleeding 02/07 labs are noted, no bleeding, trach/to vent, wth gtube, meds reviewed 02/08 very agitated, no bleeding, med noted, no night sweats, in restraints 02/10 off dopamine currently, labs reviewed, overnight agitated 02/12 still agitated overnight, cbc has been reordered recent hgb reviewed 02/13 labs reviewed, is on ivfs, meds noted, no bleeding, vitaly rn, hgb 8.7 02/14 labs reviewed, on vent, and rectal tube, meds noted 02/15 remains on vent, gtube feeds, labs are noted, hgb 8.8 02/17 is without events, labs ordered, for dispo planning Objective Objective Current Medications Medications (Trade) Dose Ordered Sig/Villa Route PRN Reason Start Time Stop Time Status Last Admin Dose Admin Acetaminophen (Tylenol) 650 mg Q4H PRN GT Temp >100.5 02/01/20 20:30 03/02/20 20:29 02/14/20 20:50 Ascorbic Acid (Vitamin C) 500 mg DAILY GT 01/28/20 09:30 02/27/20 09:29 02/18/20 09:07 Clonazepam (KlonoPIN) 1 mg EVERY 8 HOURS GT 02/14/20 14:00 02/21/20 13:59 02/18/20 13:51 Dextrose/Sodium Chloride 1,000 ml @ 75 mls/hr [id number] IV 01/29/20 13:00 02/27/20 12:59 02/18/20 06:51 Famotidine (Pepcid I.v.) 20 mg Q12HR IVP 01/29/20 21:00 02/28/20 20:59 02/18/20 09:06 Gabapentin (Neurontin) 900 mg TID GT 01/28/20 09:30 02/19/20 09:29 02/18/20 13:51 Midodrine (Pro-Amatine) 10 mg TID GT 02/07/20 18:00 04/21/20 17:59 02/18/20 13:51 Multivitamins (Multivitamins W/ Minerals 15ml Liquid) 15 ml DAILY GT 01/28/20 09:30 02/27/20 09:29 02/18/20 09:06 Pantoprazole (Protonix) 40 mg EVERY 12 HOURS IVP 01/31/20 09:30 03/01/20 09:29 02/18/20 09:08 Potassium Chloride (K-Dur) 40 meq TWICE A DAY ORAL 02/02/20 18:00 05/02/20 17:59 02/18/20 09:07 Sucralfate (Carafate) 1 gm FOUR TIMES A DAY ORAL 01/30/20 09:00 04/29/20 08:59 02/18/20 13:51 Thiamine HCl (Vitamin B1) 100 mg DAILY GT 01/28/20 09:30 02/27/20 09:29 02/18/20 09:06 Last 24 Hour Vital Signs Date Time Temp Pulse Resp B/P (MAP) Pulse Ox O2 Delivery O2 Flow Rate FiO2 02/18/20 12:00 35 02/18/20 12:00 Mechanical Ventilator 02/18/20 11:00 65 19 40 02/18/20 08:00 Mechanical Ventilator 02/18/20 08:00 90 02/18/20 08:00 35 02/18/20 08:00 98.3 97 18 113/57 (75) 96 02/18/20 07:28 68 23 40 02/18/20 04:00 35 02/18/20 04:00 87 02/18/20 04:00 97.5 81 23 101/69 (80) 99 02/18/20 03:52 Mechanical Ventilator 02/18/20 02:35 57 19 40 02/18/20 00:00 Mechanical Ventilator 02/18/20 00:00 84 02/18/20 00:00 35 02/18/20 00:00 97.7 67 15 93/63 (73) 100 10/3/20 22:49 54 23 40 02/17/20 20:00 97.9 72 18 127/72 (90) 99 02/17/20 20:00 Mechanical Ventilator 02/17/20 20:00 56 02/17/20 20:00 35 02/17/20 19:18 74 19 40 02/17/20 16:00 35 02/17/20 16:00 98.6 53 16 92/51 (65) 97 53 02/17/20 16:00 71 02/17/20 16:00 Mechanical Ventilator 02/17/20 15:40 70 16 40 02/17/20 12:35 55 96/55 (69) 02/17/20 12:00 97.7 65 16 81/55 (64) 98 71 02/17/20 12:00 65 02/17/20 12:00 Mechanical Ventilator 02/17/20 11:57 35 02/17/20 11:17 63 17 40 02/17/20 08:00 35 02/17/20 08:00 78 02/17/20 08:00 Mechanical Ventilator 02/17/20 08:00 97.7 71 16 106/66 (79) 94 71 02/17/20 06:50 73 16 40 02/17/20 04:17 82 02/17/20 04:00 97.2 65 18 97/64 (75) 99 65 02/17/20 04:00 Mechanical Ventilator 02/17/20 04:00 35 02/17/20 03:16 66 17 28 02/17/20 00:00 Mechanical Ventilator 02/17/20 00:00 99.0 56 15 101/66 (78) 100 66 02/17/20 00:00 65 02/16/20 23:41 76 20 28 02/16/20 20:00 55 02/16/20 20:00 35 02/16/20 20:00 Mechanical Ventilator 02/16/20 20:00 97.5 60 14 96/53 (67) 98 02/16/20 19:49 71 16 28 02/16/20 16:10 Mechanical Ventilator 02/16/20 16:00 35 02/16/20 16:00 80 02/16/20 16:00 98.2 79 19 130/51 (77) 100 02/16/20 14:40 77 19 28 Intake and Output 02/17/20 02/18/20 19:00 07:00 Intake Total 55 ml 605 ml Balance 55 ml 605 ml Tube Feeding 55 ml 605 ml # Bowel Movements 4 4 Labs Test 02/15/20 18:20 02/16/20 00:22 02/16/20 03:04 02/16/20 04:46 White Blood Count 11.4 K/UL (4.8-10.8) Red Blood Count 3.09 M/UL (4.20-5.40) Hemoglobin 8.8 G/DL (12.0-16.0) Hematocrit 27.1 % (37.0-47.0) Mean Corpuscular Volume 88 FL (80-99) Mean Corpuscular Hemoglobin 28.6 PG (27.0-31.0) Mean Corpuscular Hemoglobin Concent 32.6 G/DL (32.0-36.0) Red Cell Distribution Width 14.7 % (11.6-14.8) Platelet Count 717 K/UL (150-450) Mean Platelet Volume 4.6 FL (6.5-10.1) Neutrophils (%) (Auto) 60.7 % (45.0-75.0) Lymphocytes (%) (Auto) 20.8 % (20.0-45.0) Monocytes (%) (Auto) 14.7 % (1.0-10.0) Eosinophils (%) (Auto) 1.9 % (0.0-3.0) Basophils (%) (Auto) 1.9 % (0.0-2.0) POC Whole Blood Glucose 110 MG/DL (74-106) Test 02/16/20 12:37 02/16/20 17:51 POC Whole Blood Glucose 87 MG/DL (74-106) 96 MG/DL (74-106) Height (Feet): 5 Height (Inches): 1.00 Weight (Pounds): 82 Objective Vital Signs General Appearance: ++ cachectic, chronically ill HEENT: normocephalic, atraumatic ++ trach Resp: other -. vent ++ Cardiovascular: regular rate, rhythm, no edema Gastrointestinal: gtube in place, without erythema Rectal: other - Hemoccult positive [place]: back normal, gait/station normal, non-tender Lymphatic: no adenopathy Baltazar Cortes MD Feb 18, 2020 14:06
--- NOTE | 2020-02-18 16:05 | Surgery Progress Note ---
Surgery Progress Note Subjective Symptoms: improved, tolerating diet, voiding well, passing flatus, BM Objective Last 24 Hour Vital Signs Date Time Temp Pulse Resp B/P (MAP) Pulse Ox O2 Delivery O2 Flow Rate FiO2 02/18/20 15:00 71 18 40 02/18/20 12:00 35 02/18/20 12:00 Mechanical Ventilator 02/18/20 11:00 65 19 40 02/18/20 08:00 Mechanical Ventilator 02/18/20 08:00 90 02/18/20 08:00 35 02/18/20 08:00 98.3 97 18 113/57 (75) 96 02/18/20 07:28 68 23 40 02/18/20 04:00 35 02/18/20 04:00 87 02/18/20 04:00 97.5 81 23 101/69 (80) 99 02/18/20 03:52 Mechanical Ventilator 02/18/20 02:35 57 19 40 02/18/20 00:00 Mechanical Ventilator 02/18/20 00:00 84 02/18/20 00:00 35 02/18/20 00:00 97.7 67 15 93/63 (73) 100 02/17/20 22:49 54 23 40 02/17/20 20:00 97.9 72 18 127/72 (90) 99 02/17/20 20:00 Mechanical Ventilator 02/17/20 20:00 56 02/17/20 20:00 35 02/17/20 19:18 74 19 40 I&O Intake and Output 02/17/20 02/18/20 19:00 07:00 Intake Total 55 ml 605 ml Balance 55 ml 605 ml Tube Feeding 55 ml 605 ml # Bowel Movements 4 4 Dressing: saturated Cardiovascular: RSR Respiratory: decreased breath sounds Abdomen: soft, non-tender, present bowel sounds Extremities: no tenderness, no cyanosis Plan Problems: (1) Pneumonia (2) Sepsis Assessment & Plan: leukocytosis anemia lactic acidosis agree with GI recommend EGD planned for 12/31 hold feeding for now trend h/h monitor for bleeding no acute hemorrhage will be available in event needs exploration for hemostasis prbc as per heme thank you will follow with recs cont abx worsening wbc wbc trending down comfortable appearing no n/v hypotensive in ICU again worse pending CT results - noted PICC ordered improving wbc improved labs and micro trending labs improved wbc resolved prognosis guarded Pt presented on admission in emaciated state. Pt has tracheostomy and GT. NO skin concerns noted to skin under collar of trach. NO erythema or evidence of skin erosion at GT site. Pt noted to have scaly pimple-like rash with webbing noted to R and L axillae, undersides of both breasts, Bilat groin and lower back. Tracking and webbing noted to hands and feet. Pt restless and scratching at skin. Non-Blanching erythema without induration or fluctuance noted to R and L hips and trochanteric areas.Non-blanching erythema noted along spine. Non-Blanching erythema without induration noted to Sacrum. Non-Blanching erythema noted to R and L Malleoli and both heels. Tx.Plan: Please apply Cavilon Skin Barrier to each bony Prominences at risks for Skin Breakdown. Cover each area with Optifoam drsgs. Change every 7 days and prn. Apply Moisture Barrier Paste to Sacrum. Cover with Optifoam drsg. Change every 3 days and prn. Reposition at least every 2hours or as tolerated. Off-load heels with pillow. APM/EMELI Mattress overlay. improving cont current care plan Incontinent social dermatitis noted around the bilateral groin creases and vaginal area. Site clean. Monitor for incontinence. There is marked enlargement of the third and lateral ventricles and extra axial CSF spaces, in particular the former. There is considerable periventricular deep white matter low-attenuation. Otherwise normal mobley-white differentiation. No acute hemorrhage or edema. No mass effect nor midline shift. Visualized orbits and sinuses are unremarkable. The calvarium is intact Impression: Third and lateral ventriculomegaly. Associated enlargement of the extra axial CSF spaces indicates that this is probably due to central volume loss, but the possibility of hydrocephalus should also be considered. At the degree of volume loss is considerably out of proportion to patient's age. Correlate with clinical history Periventricular deep white matter low-attenuation. Probably on the basis of microvascular ischemic change but given patient's age the possibility of demyelinating disease should be considered as well. Negative for acute intracranial bleed or mass effect ABDOMEN: Liver: Unremarkable. Gallbladder and bile ducts: Cholecystectomy. No ductal dilation. Pancreas: Unremarkable. No ductal dilation. Spleen: Unremarkable. No splenomegaly. Adrenals: Unremarkable. No mass. Kidneys and ureters: Unremarkable. No obstructing stones. No hydronephrosis. Stomach and bowel: Operative bowel findings. Diffuse small bowel wall thickening with areas of distention and fluid-filled colonic loops. No clear focal transition point to suggest small bowel obstruction. PELVIS: Appendix: Appendix not identified. Bladder: Urinary bladder wall thickening could be incidental, due to high outlet pressures, or could represent cystitis. No stones. Reproductive: Unremarkable as visualized. ABDOMEN and PELVIS: Intraperitoneal space: Large low-attenuation pelvic fluid of uncertain significance, potentially reactive. No free air. Bones/joints: No acute fracture. No dislocation. Soft tissues: Bilateral buttock injection granulomas. Vasculature: Unremarkable. No abdominal aortic aneurysm. Lymph nodes: Unremarkable. No enlarged lymph nodes. Tubes, lines and devices: Percutaneous gastrostomy tube adequately positioned in the stomach. Rectal tube. Other findings: No perforation seen. IMPRESSION: 1. Study substantially limited due to lack of IV contrast. 2. Findings most compatible with ileus and probable infectious or inflammatory enteritis or enterocolitis. 3. Large low-attenuation pelvic fluid of uncertain significance, potentially reactive. 4. Appendix not identified. 5. Percutaneous gastrostomy tube adequately positioned in the stomach. Rectal tube. 6. Urinary bladder wall thickening could be incidental, due to high outlet pressures, or could represent cystitis. 7. Cholecystectomy. (3) GI bleed (4) G tube feedings Assessment & Plan: DAILY ESTIMATED NEEDS: Needs based on Underweight, critical care 37.3kg 30-40 kcals/kg 5583-7130 total kcals 1.25-2 g protein/kg 47-75 g total protein 25-35 mL/kg 933-1306 total fluid mLs NUTRITION DIAGNOSIS: Increased kcal and pro needs r/t underweight status as evidenced by BMI 14.1, pt is 68% of ideal body weight w/ generalized severe wasting, trach and peg dep. CURRENT TF:Vital AF 1.2 @55 x20 hrs ENTERAL NUTRITION RECOMMENDATIONS: Vital AF 1.2 @ 55ml/hr x20 hrs to provide 1100ml 1320kcal 83g prot, 892ml free water - Rec to continue elemental TF formula while stool C-diff positive, +LBM - HOLD 1HR BEFORE AND AFTER SYNTHROID MEDS - Flush per MD. HOB over 30 degrees ADDITIONAL RECOMMENDATIONS: 1) Per SNF: 5'4" and 81# Maintain calibrated bed scale wts w/ added P200 mattress 2) Lytes daily madhav w/ loose stools, replete as needed 3) Skin integrity: Continue BRIAN VIA GT BID + Vit C 4) Accuchecks for Hypoglycemia 5) Add probiotics for stool C-diff+ . George Woods Feb 18, 2020 16:05
[2020-02-18 16:10] VITALS: BP 113/68
[2020-02-18 20:00] VITALS: BP 104/66
[2020-02-19] VITALS: BP 111/57
[2020-02-19 04:00] VITALS: BP 109/50
--- NOTE | 2020-02-19 06:33 | General Progress Note ---
Subjective ROS Limited/Unobtainable: No Allergies: Coded Allergies: CARBAMAZEPINE (Verified Allergy, Unknown, 12/31/19) LORAZEPAM (Verified Allergy, Unknown, 12/31/19) Objective Last 24 Hour Vital Signs Date Time Temp Pulse Resp B/P (MAP) Pulse Ox O2 Delivery O2 Flow Rate FiO2 02/19/20 04:00 Mechanical Ventilator 02/19/20 04:00 97.2 65 20 109/50 (69) 100 02/19/20 04:00 40 02/19/20 04:00 61 02/19/20 03:16 73 23 40 02/19/20 00:00 Mechanical Ventilator 02/19/20 00:00 97.7 57 20 111/57 (75) 100 02/19/20 00:00 57 02/18/20 23:05 69 19 40 02/18/20 20:00 48 02/18/20 20:00 Mechanical Ventilator 02/18/20 20:00 35 02/18/20 20:00 97.4 45 16 104/66 (79) 100 02/18/20 18:57 68 19 40 02/18/20 16:10 98.4 86 18 113/68 (83) 97 02/18/20 16:00 Mechanical Ventilator 02/18/20 16:00 60 02/18/20 16:00 35 02/18/20 15:00 71 18 40 02/18/20 12:00 97.9 82 18 106/37 (60) 97 02/18/20 12:00 35 02/18/20 12:00 89 02/18/20 12:00 Mechanical Ventilator 02/18/20 11:00 65 19 40 02/18/20 08:00 Mechanical Ventilator 02/18/20 08:00 90 02/18/20 08:00 35 02/18/20 08:00 98.3 97 18 113/57 (75) 96 02/18/20 07:28 68 23 40 Intake and Output 02/18/20 02/19/20 19:00 07:00 Intake Total 110 ml 1246.25 ml Balance 110 ml 1246.25 ml Intake Free Water 120 ml IV Total 631.25 ml Tube Feeding 110 ml 495 ml # Bowel Movements 6 3 Height (Feet): 5 Height (Inches): 1.00 Weight (Pounds): 82 General Appearance: no apparent distress EENT: normal ENT inspection Neck: supple Cardiovascular: normal rate Respiratory/Chest: decreased breath sounds Abdomen: normal bowel sounds, non tender, soft Extremities: non-tender Assessment/Plan Problem List: (1) G tube feedings ICD Codes: Z93.1 - Gastrostomy status SNOMED: 691725395, 820727065, [id number] (2) GI bleed ICD Codes: K92.2 - Gastrointestinal hemorrhage, unspecified SNOMED: 86997947 (3) Sepsis ICD Codes: A41.9 - Sepsis, unspecified organism SNOMED: 10679545 (4) Pneumonia ICD Codes: J18.9 - Pneumonia, unspecified organism SNOMED: 443033964 Status: stable, other - Patient is now hypotensive before over 47 she will receive 500 cc of normal saline bolus to be repeated blood pressure remained below 90 further management will be decided following the boluses treatment repeat laboratory tests will be done in a.m. GEM MCKAY MD Assessment/Plan: s/p EGD gastric ulcer monitor H&H C. Diff positive>> now neg GTF prn Imodium ppi will fu Satish Carrillo MD Feb 19, 2020 06:33
--- NOTE | 2020-02-19 06:50 | Hematology/Onc Progress Note ---
Assessment/Plan Assessment/Plan # Anemia rule out underlying gi bleed --> Dr. Carrillo has been consulted-->endosco gastric ulceration --> trend hgb 7-->7.4-->7.9-->8.1->9.6-->8.5->9.1-->10-->11-->10.3-->10.4-->11->9.8-->7.4 ->9-->10.5-->9.1-->8.7-->8.4-->8.6-->8.7-->8.8 --> anemia panel ordered-->reviewed --> prn transfusion --> protonix started # Leukocytosis is likely related to pna on imaging --> abx has been started --> Abx vanc/zosyn--> ceftriaxone-->vanc->fluc/flagyl/va nc-->flagyl/fidoxomicin->vanc/cefepime/flagyl-->gentamcinflagyl->off --> smear is noted --> wbc 25-->15-->14-->16->7.6-->12-->20 ->13->11->14-->33-->16->8->11-->12->10.5-->19 --> pressors prn # Thrombocytopenia med related v labs error --> plt trend 167-->61-->227->373->457 --> meds have been reviewed --> no hep or lovenox # Sepsis --> on abx for pna --> pressors as needed --> fluids as per pcp for hypotension # Pneumonia --> pulm, Dr. Esparza --> on abx started # Resp failure s/p aguilar/trach --> per pulm # Hypokalemia --> replete with k # RICHARD -> as per renal care # Dysphagia s/p gtube # Dvt ppx scds/protonix Appreciate fitness consultant care, will follow Subjective Allergies: Coded Allergies: CARBAMAZEPINE (Verified Allergy, Unknown, 12/31/19) LORAZEPAM (Verified Allergy, Unknown, 12/31/19) Subjective 01/01 altered, trach, no bleedin wbc improved on abx, seen by gi 01/02 egd study noted, also with plts 61k, have vitaly Armendariz Rn, will recheck cbc 01/03 remains agitated, vitaly rn, no bleeding, cbc noted as well as id recs 01/04 on vent, with melena overnight, no bleeding, vitaly rn, labs reviewed 01/06 on vent, remains agitated, no bleeding, vitaly rn, smear is noted 01/07 on vent, restless, asymptomatic, noncooperative 01/[address] John obtained, reviewed, meds adjusted, eeg pending 01/09 labs noted, no bleeding, ativan has been discontinued, meds reviewed 01/10 trach to vent, agitated, with wrist restraints, no major changes, no bleeding 01/11 labs are reviewed, on trach to vent, no bleeding, agitated overnight, no complaints 01/13 labs noted, no bleeding, is on vent/trach, no bleeding, vitaly rn, labs are noted 01/14 labs are noted, no bleeding, remains on v/t, remains agitated, no bleeding 01/15 is c.diff positive, wbc higher at 21k, labs noted, on abx, reviewed gi, id recs 01/16 remains on vent, wbc is improved, in sr, as abx per id 01/17 recieved dopamine, tube feeds, on soft restraints, no bleeding, vitaly rn 01/18 labs are noted, no bleeding, vitaly rn, no major changes 01/20 on dopamine gtt, with restraints, no major changes, labs noted 01/21 labs reviewed, no bleeding, vitaly rn, no major changes 01/22 transferred to icu for higher loc, dopamine on hold as bp is good, have increased Synthroid 01/23 labs are pending, meds noted, no bleeding, dopamine gtt ongoing, cbc noted 01/24 still nv, no bleeding, labs reviewed, vitaly longoria, with rectal tube in place, on dopamine gtt 01/25 is on bipap, nv, no bleeding, remains on low dose pressorm hgb 11 01/27 on dopamine, hr was elevated overnight, cards aware 01/28 on vent, with ivfs running, rectal tube with red blood noted, consider gi eval 01/29 on vent, labs reviewed, wbc 22, hgb 8.4, on abx currently, vanc/flagyl/cefepime 02/02 labs reviewed, no bleeding, on vent, no night sweats, wbc improved 02/03 is on gtube feeds, with trach to vent, oxygen as needed, labs wbc better 02/04 nv, is on gt, on vent, no bleeding, labs are noted, guarded prognosis 02/05 labs are noted, nv, is on gt feeds, no bleeding, abx as needed 02/06 labs reviewed, is on tube feeds, on vent, nv, no bleeding 02/07 labs are noted, no bleeding, trach/to vent, wth gtube, meds reviewed 02/08 very agitated, no bleeding, med noted, no night sweats, in restraints 02/10 off dopamine currently, labs reviewed, overnight agitated 02/12 still agitated overnight, cbc has been reordered recent hgb reviewed 02/13 labs reviewed, is on ivfs, meds noted, no bleeding, dw rn, hgb 8.7 02/14 labs reviewed, on vent, and rectal tube, meds noted 02/15 remains on vent, gtube feeds, labs are noted, hgb 8.8 02/17 is without events, labs ordered, for dispo planning 02/18 tolerating trach well, slightly yeni overnight, dc planning Objective Objective Current Medications Medications (Trade) Dose Ordered Sig/Villa Route PRN Reason Start Time Stop Time Status Last Admin Dose Admin Acetaminophen (Tylenol) 650 mg Q4H PRN GT Temp >100.5 02/01/20 20:30 03/02/20 20:29 02/14/20 20:50 Ascorbic Acid (Vitamin C) 500 mg DAILY GT 01/28/20 09:30 02/27/20 09:29 02/18/20 09:07 Clonazepam (KlonoPIN) 1 mg EVERY 8 HOURS GT 02/14/20 14:00 02/21/20 13:59 02/18/20 13:51 Dextrose/Sodium Chloride 1,000 ml @ 75 mls/hr [id number] IV 01/29/20 13:00 02/27/20 12:59 02/18/20 20:35 Famotidine (Pepcid I.v.) 20 mg Q12HR IVP 01/29/20 21:00 02/28/20 20:59 02/18/20 20:33 Gabapentin (Neurontin) 900 mg TID GT 01/28/20 09:30 02/19/20 09:29 02/18/20 17:48 Loperamide HCl (Imodium) 2 mg Q6H PRN GT Diarrhea 02/18/20 16:15 03/19/20 16:14 02/18/20 16:17 Midodrine (Pro-Amatine) 10 mg TID GT 02/07/20 18:00 04/21/20 17:59 02/18/20 17:48 Multivitamins (Multivitamins W/ Minerals 15ml Liquid) 15 ml DAILY GT 01/28/20 09:30 02/27/20 09:29 02/18/20 09:06 Pantoprazole (Protonix) 40 mg EVERY 12 HOURS IVP 01/31/20 09:30 03/01/20 09:29 02/18/20 20:33 Potassium Chloride (K-Dur) 40 meq TWICE A DAY ORAL 02/02/20 18:00 05/02/20 17:59 02/18/20 17:49 Sucralfate (Carafate) 1 gm FOUR TIMES A DAY ORAL 01/30/20 09:00 04/29/20 08:59 02/18/20 20:33 Thiamine HCl (Vitamin B1) 100 mg DAILY GT 01/28/20 09:30 02/27/20 09:29 02/18/20 09:06 Last 24 Hour Vital Signs Date Time Temp Pulse Resp B/P (MAP) Pulse Ox O2 Delivery O2 Flow Rate FiO2 02/19/20 04:00 Mechanical Ventilator 02/19/20 04:00 97.2 65 20 109/50 (69) 100 02/19/20 04:00 40 02/19/20 04:00 61 02/19/20 03:16 73 23 40 02/19/20 00:00 Mechanical Ventilator 02/19/20 00:00 97.7 57 20 111/57 (75) 100 02/19/20 00:00 57 02/18/20 23:05 69 19 40 02/18/20 20:00 48 02/18/20 20:00 Mechanical Ventilator 02/18/20 20:00 35 02/18/20 20:00 97.4 45 16 104/66 (79) 100 02/18/20 18:57 68 19 40 02/18/20 16:10 98.4 86 18 113/68 (83) 97 02/18/20 16:00 Mechanical Ventilator 02/18/20 16:00 60 02/18/20 16:00 35 02/18/20 15:00 71 18 40 02/18/20 12:00 97.9 82 18 106/37 (60) 97 02/18/20 12:00 35 02/18/20 12:00 89 02/18/20 12:00 Mechanical Ventilator 02/18/20 11:00 65 19 40 02/18/20 08:00 Mechanical Ventilator 02/18/20 08:00 90 02/18/20 08:00 35 02/18/20 08:00 98.3 97 18 113/57 (75) 96 02/18/20 07:28 68 23 40 02/18/20 04:00 35 02/18/20 04:00 87 02/18/20 04:00 97.5 81 23 101/69 (80) 99 02/18/20 03:52 Mechanical Ventilator 02/18/20 02:35 57 19 40 02/18/20 00:00 Mechanical Ventilator 02/18/20 00:00 84 02/18/20 00:00 35 02/18/20 00:00 97.7 67 15 93/63 (73) 100 02/17/20 22:49 54 23 40 02/17/20 20:00 97.9 72 18 127/72 (90) 99 02/17/20 20:00 Mechanical Ventilator 02/17/20 20:00 56 02/17/20 20:00 35 02/17/20 19:18 74 19 40 02/17/20 16:00 35 02/17/20 16:00 98.6 53 16 92/51 (65) 97 53 02/17/20 16:00 71 02/17/20 16:00 Mechanical Ventilator 02/17/20 15:40 70 16 40 02/17/20 12:35 55 96/55 (69) 02/17/20 12:00 97.7 65 16 81/55 (64) 98 71 02/17/20 12:00 65 02/17/20 12:00 Mechanical Ventilator 02/17/20 11:57 35 02/17/20 11:17 63 17 40 02/17/20 08:00 35 02/17/20 08:00 78 02/17/20 08:00 Mechanical Ventilator 02/17/20 08:00 97.7 71 16 106/66 (79) 94 71 Intake and Output 02/18/20 02/19/20 19:00 07:00 Intake Total 110 ml 1246.25 ml Balance 110 ml 1246.25 ml Intake Free Water 120 ml IV Total 631.25 ml Tube Feeding 110 ml 495 ml # Bowel Movements 6 3 Labs Test 02/16/20 12:37 02/16/20 17:51 POC Whole Blood Glucose 87 MG/DL (74-106) 96 MG/DL (74-106) Height (Feet): 5 Height (Inches): 1.00 Weight (Pounds): 82 Objective Vital Signs General Appearance: ++ cachectic, chronically ill HEENT: normocephalic, atraumatic ++ trach Resp: other -. vent ++ Cardiovascular: regular rate, rhythm, no edema Gastrointestinal: gtube in place, without erythema Rectal: other - Hemoccult positive [place]: back normal, gait/station normal, non-tender Lymphatic: no adenopathy Baltazar Cortes MD Feb 19, 2020 06:50
[2020-02-19 07:25] LABS: EOSINOPHILS % (AUTO) 2.4 % (0.0-3.0); HEMATOCRIT 28.6 % (37.0-47.0); HEMOGLOBIN 9.1 G/DL (12.0-16.0); LYMPHOCYTES % (AUTO) 22.7 % (20.0-45.0); MEAN CORPUSCULAR VOLUME 88 FL (80-99); MONOCYTES % (AUTO) 6.2 % (1.0-10.0); NEUTROPHILS % (AUTO) 67.7 % (45.0-75.0); PLATELET COUNT 628 K/UL (150-450); RED BLOOD COUNT 3.25 M/UL (4.20-5.40); RED CELL DISTRIBUTION WIDTH 14.7 % (11.6-14.8); WHITE BLOOD COUNT 11.8 K/UL (4.8-10.8)
[2020-02-19 07:48] LABS: ALBUMIN 1.9 G/DL (3.4-5.0); ALBUMIN/GLOBULIN RATIO 0.4 (1.0-2.7); ALKALINE PHOSPHATASE 231 U/L (46-116); ANION GAP 2 mmol/L (5-15); ASPARTATE AMINO TRANSFERASE 67 U/L (15-37); BILIRUBIN,TOTAL 0.2 MG/DL (0.2-1.0); BLOOD UREA NITROGEN 11 mg/dL (7-18); CALCIUM 8.7 MG/DL (8.5-10.1); CARBON DIOXIDE 31 MMOL/L (21-32); CHLORIDE 104 MMOL/L (98-107); CREATININE 0.5 MG/DL (0.55-1.30); PHOSPHORUS 2.7 MG/DL (2.5-4.9); POTASSIUM 4.4 MMOL/L (3.5-5.1); SODIUM 137 MMOL/L (136-145)
[2020-02-19 08:00] VITALS: BP 123/55
[2020-02-19] MEDS: Gabapentin 300 MG/6 ML Soln GT SCH (09:36)
[2020-02-19] MEDS: Pantoprazole Inj IVP SCH ×2 (09:36→20:43)
[2020-02-19] MEDS: Ascorbic Acid 500mg tab GT SCH (09:37)
[2020-02-19] MEDS: Thiamine 100mg tab GT SCH (09:37)
[2020-02-19] MEDS: Multivitamins W/Minerals 15 ML UDC GT SCH (09:37)
[2020-02-19] MEDS: Sucralfate 1gm tab ORAL SCH ×4 (09:37→20:43)
[2020-02-19] MEDS: Midodrine 10mg tab GT SCH ×3 (09:37→17:35)
[2020-02-19 10:16] LABS: ALANINE AMINOTRANSFERASE 68 U/L (12-78)
--- NOTE | 2020-02-19 10:30 | Nephrology Progress Note ---
Assessment/Plan Problem List: (1) RICHARD (acute kidney injury) (2) Dehydration (3) Anemia (4) GI bleed (5) Malnutrition (6) Seizure disorder (7) Electrolyte imbalance Assessment Renal failure, in the form of prerenal azotemia, most likely secondary to GI bleed GI bleed, leading to severe anemia Sepsis, pneumonia Chronic tracheostomy, ventilator dependent History of CVA History of seizure disorder History of psychiatric disorder Severe malnutrition Electrolyte abnormalities Plan February 18: Stable from renal standpoint of view. Discharge planning in process. February 17: No chemistry panel done today. Patient discharge is still pending due to logistical issues. Will check lab tomorrow. Stable from renal standpoint of view. February 16: No chemistry panel done today. Vital signs stable. Stable from renal standpoint of view for discharge. February 15: Stable from renal standpoint of view. Okay to discharge from renal standpoint of view. February 14: No chemistry panel done today. Clinically remains stable. Continue per PMD. February 13: Status quo. Stable from renal standpoint of view. February 12: Stable from renal standpoint of view. Remains full code on ventilator. Continue per PMD. February 11: Today's labs reviewed. Full code. On ventilator. Abnormal electrolytes addressed. February 10: No can panel done today. Full code. On ventilator. Will order lab tomorrow. February 09: No chemistry panel done today. Remains full code. Remains on ventilator. Continue per PMD. February 08: Labs reviewed. Electrolyte abnormalities addressed. Patient full code. Continue per current management. February 07: No chemistry panel done today. Remains stable from renal standpoint of view. Patient is full code. Order lab tomorrow. February 06: No chemistry panel drawn today. Clinically remains stable from re nal standpoint of view. Patient is full code. February 05: Phosphorus and magnesium supplement given. Stable from renal standpoint of view. Remains full code February 04: No chemistry panel done today. Remains stable from renal standpoint of view. Continue to monitor renal parameters. February 03: Labs reviewed. Renal parameters stable. Continue her consultants. February 02: Lab reviewed. Low phosphorus low magnesium corrections ordered. Continue to monitor electrolytes and renal parameters. February 01: Lab reviewed. Low phosphorus and low magnesium replaced. Low potassium replaced. Continue to monitor electrolytes. Continue per consultants. January 31: Lab reviewed. Hemoglobin higher. Renal parameters stable. Potassium and phosphorus supplement given. January 30: Labs reviewed. Low mag low phosphorus and low potassium replaced. White blood cells 16,000 today. Remains full code. Continue to monitor hemoglobin and hematocrit and electrolytes. January 29: Labs reviewed. Magnesium, potassium, phosphorus supplement given. White blood cells down to 22,000. Remains full code. Continue per consultants. RN reports rectal bleed. Hemoglobin drifting down. Defer management to care navigator who is already on the case. January 28: Status quo. Electrolyte abnormalities noted. Mag Phos and potassium supplement IV given. Renal parameters stable. Continue per consultants. Leukocytosis persists. January 27: Significant rise in white blood cell counts. Hypotensive. Now in ICU. Will give albumin bolus. Continue to monitor renal parameters. Continue per ID advice. January 26: Continue to monitor renal parameters. Patient remains on ventilator. Patient is full code. Continue per consultants. January 25: Status quo. Labs reviewed. Continue per consultants. January 24: Status unchanged. Labs reviewed. Remains stable from renal standpoint of view. January 23: Back in [place]. Stable from renal standpoint of view. Continue per consultants. January 22: Patient in ICU now. Vital signs and heart rate and blood pressure appears to be stable. Patient had an episode of bradycardia but it was resolv ed. TSH level today is very low will cut down on Synthroid dose. January 21: Today's labs are reviewed. Stable renal parameters. Continue per consultants. January 20: Labs reviewed. Renal parameters stable. January 19: Labs reviewed. Stable from renal standpoint. January 18: No labs done today. Continue per consultants. Medications reviewed. January 17: Late note entry due to system problem at the [facility] today.Chemistry panel reviewed. Stable from renal standpoint of view. Continue per current management. January 16: No can panel today. Check lab tomorrow. Remains stable from renal standpoint of view. January 15: Lab reviewed. Renal parameters stable. January 14: Lab reviewed. Renal parameters stable. January 13: Labs reviewed. Stable from renal standpoint of view. January 12: Labs reviewed. Stable from renal standpoint of view January 11: No labs drawn today stable from renal standpoint of view January 10: Labs reviewed. Potassium supplement given. Continue per provider relations consultant s. January 09: Lab reviewed. Potassium supplement given. IV fluid discontinued. January 08: Lab reviewed. Renal parameters stable. Continue per consultants. January 07: Lab reviewed. Renal parameters stable. Continue per consultants. January 06: Lab reviewed. Stable from renal standpoint of view. January 05: Labs reviewed. Stable from renal standpoint of view. Continue per consultants. January 04: No labs drawn today. Will check labs tomorrow. Continue per consultants. January 03: Lab reviewed. Renal parameters stable. IV fluid discontinued. High LFTs declining. Continue same. January 02: Lab reviewed. Renal parameters stable. Continue per PMD and consultants. LFTs remain elevated. Continue to monitor. Continue slow hydration Discontinue blood pressure medications as her blood pressure is low Discontinue diuretics Monitor renal parameters Transfusion as needed GI evaluation Correct electrolyte abnormalities Check B12 level, folate, and thyroid function tests: Results noted Subjective ROS Limited/Unobtainable: Yes Objective Objective Last 24 Hour Vital Signs Date Time Temp Pulse Resp B/P (MAP) Pulse Ox O2 Delivery O2 Flow Rate FiO2 02/19/20 08:00 97.9 58 12 123/55 (77) 100 02/19/20 04:00 Mechanical Ventilator 02/19/20 04:00 97.2 65 20 109/50 (69) 100 02/19/20 04:00 40 02/19/20 04:00 61 02/19/20 03:16 73 23 40 02/19/20 00:00 Mechanical Ventilator 02/19/20 00:00 97.7 57 20 111/57 (75) 100 02/19/20 00:00 57 02/18/20 23:05 69 19 40 02/18/20 20:00 48 02/18/20 20:00 Mechanical Ventilator 02/18/20 20:00 35 02/18/20 20:00 97.4 45 16 104/66 (79) 100 02/18/20 18:57 68 19 40 02/18/20 16:10 98.4 86 18 113/68 (83) 97 02/18/20 16:00 Mechanical Ventilator 02/18/20 16:00 60 02/18/20 16:00 35 02/18/20 15:00 71 18 40 02/18/20 12:00 97.9 82 18 106/37 (60) 97 02/18/20 12:00 35 02/18/20 12:00 89 02/18/20 12:00 Mechanical Ventilator 02/18/20 11:00 65 19 40 Intake and Output 02/18/20 02/19/20 19:00 07:00 Intake Total 110 ml 1396.25 ml Balance 110 ml 1396.25 ml Intake Free Water 120 ml IV Total 781.25 ml Tube Feeding 110 ml 495 ml # Bowel Movements 6 3 Laboratory Tests 02/19/20 05:14: White Blood Count 11.8H, Red Blood Count 3.25L, Hemoglobin 9.1L, Hematocrit 28.6L, Mean Corpuscular Volume 88, Mean Corpuscular Hemoglobin 28.0, Mean Corpuscular Hemoglobin Concent 31.8L, Red Cell Distribution Width 14.7, Platelet Count 628H, Mean Platelet Volume 4.3L, Neutrophils (%) (Auto) 67.7, Lymphocytes (%) (Auto) 22.7, Monocytes (%) (Auto) 6.2, Eosinophils (%) (Auto) 2.4, Basophils (%) (Auto) 1.0, Sodium Level 137, Potassium Level 4.4, Chloride Level 104, Carbon Dioxide Level 31, Anion Gap 2L, Blood Urea Nitrogen 11, Creatinine 0.5L, Estimat Glomerular Filtration Rate > 60, Glucose Level 85, Calcium Level 8.7, Phosphorus Level 2.7, Total Bilirubin 0.2, Aspartate Amino Transf (AST/SGOT) 67H , Alanine Aminotransferase (ALT/SGPT) 68, Alkaline Phosphatase 231H, Total Protein 6.4, Albumin 1.9L, Globulin 4.5, Albumin/Globulin Ratio 0.4L Height (Feet): 5 Height (Inches): 1.00 Weight (Pounds): 82 General Appearance: no apparent distress Cardiovascular: bradycardia Respiratory/Chest: decreased breath sounds Abdomen: soft, distended Objective No change Chivo Holloway MD Feb 19, 2020 10:30
--- NOTE | 2020-02-19 11:01 | Pulmonology Progress Note ---
Ivanna Mora SAND SYSTEM OPERATOR 02/19/20 1101: Subjective ROS Limited/Unobtainable: Yes Allergies: Coded Allergies: CARBAMAZEPINE (Verified Allergy, Unknown, 12/31/19) LORAZEPAM (Verified Allergy, Unknown, 12/31/19) All Systems: reviewed and negative except above Subjective in [place] no signs of resp distress on current vent settings on Midodrine, off Dopamine gtt remains afebrile CXR 02/09 - no definite infiltrate repeated venous Duplex BLE NGT dc plan in progress , awaiting for disposition Objective Last 24 Hour Vital Signs Date Time Temp Pulse Resp B/P (MAP) Pulse Ox O2 Delivery O2 Flow Rate FiO2 02/19/20 08:00 97.9 58 12 123/55 (77) 100 02/19/20 07:28 70 21 40 02/19/20 04:00 Mechanical Ventilator 02/19/20 04:00 97.2 65 20 109/50 (69) 100 02/19/20 04:00 40 02/19/20 04:00 61 02/19/20 03:16 73 23 40 02/19/20 00:00 Mechanical Ventilator 02/19/20 00:00 97.7 57 20 111/57 (75) 100 02/19/20 00:00 57 02/18/20 23:05 69 19 40 02/18/20 20:00 48 02/18/20 20:00 Mechanical Ventilator 02/18/20 20:00 35 02/18/20 20:00 97.4 45 16 104/66 (79) 100 02/18/20 18:57 68 19 40 02/18/20 16:10 98.4 86 18 113/68 (83) 97 02/18/20 16:00 Mechanical Ventilator 02/18/20 16:00 60 02/18/20 16:00 35 02/18/20 15:00 71 18 40 02/18/20 12:00 97.9 82 18 106/37 (60) 97 02/18/20 12:00 35 02/18/20 12:00 89 02/18/20 12:00 Mechanical Ventilator l Intake and Output 02/18/20 02/19/20 19:00 07:00 Intake Total 110 ml 1396.25 ml Balance 110 ml 1396.25 ml Intake Free Water 120 ml IV Total 781.25 ml Tube Feeding 110 ml 495 ml # Bowel Movements 6 3 Objective General Appearance: bedridden, pale, chronically ill looking, older than her biological age ; vent dependent female ; on vent SIMV 450-30%-12, PEEP 5 Lines, tubes and drains: trach HEENT: normocephalic, atraumatic Neck: trach - Portex #7, secretions small amount, yellow color, thin consistency Respiratory/Chest: CTAB Cardiovascular/Chest: regular rate, regular rhythm Abdomen: non tender, soft, G tube , Genitourinary/Rectal: [place] Extremities: no edema, muscle atrophy Neurologic: abnormal gait, awake, poorly responsive Musculoskeletal: atrophy BLE Skin: multiple tattoos Laboratory Tests 02/19/20 05:14: White Blood Count 11.8H, Red Blood Count 3.25L, Hemoglobin 9.1L, Hematocrit 28.6L, Mean Corpuscular Volume 88, Mean Corpuscular Hemoglobin 28.0, Mean Corpuscular Hemoglobin Concent 31.8L, Red Cell Distribution Width 14.7, Platelet Count 628H, Mean Platelet Volume 4.3L, Neutrophils (%) (Auto) 67.7, Lymphocytes (%) (Auto) 22.7, Monocytes (%) (Auto) 6.2, Eosinophils (%) (Auto) 2.4, Basophils (%) (Auto) 1.0, Sodium Level 137, Potassium Level 4.4, Chloride Level 104, Carbon Dioxide Level 31, Anion Gap 2L, Blood Urea Nitrogen 11, Creatinine 0.5L, Estimat Glomerular Filtration Rate > 60, Glucose Level 85, Calcium Level 8.7, Phosphorus Level 2.7, Total Bilirubin 0.2, Aspartate Amino Transf (AST/SGOT) 67H , Alanine Aminotransferase (ALT/SGPT) 68, Alkaline Phosphatase 231H, Total Protein 6.4, Albumin 1.9L, Globulin 4.5, Albumin/Globulin Ratio 0.4L Current Medications Medications (Trade) Dose Ordered Sig/Villa Route PRN Reason Start Time Stop Time Status Last Admin Dose Admin Acetaminophen (Tylenol) 650 mg Q4H PRN GT Temp >100.5 02/01/20 20:30 03/02/20 20:29 02/14/20 20:50 Ascorbic Acid (Vitamin C) 500 mg DAILY GT 01/28/20 09:30 02/27/20 09:29 02/19/20 09:37 Clonazepam (KlonoPIN) 1 mg EVERY 8 HOURS GT 02/14/20 14:00 02/21/20 13:59 02/18/20 13:51 Dextrose/Sodium Chloride 1,000 ml @ 75 mls/hr [id number] IV 01/29/20 13:00 02/27/20 12:59 02/18/20 20:35 Famotidine (Pepcid I.v.) 20 mg Q12HR IVP 01/29/20 21:00 02/28/20 20:59 02/19/20 09:37 Loperamide HCl (Imodium) 2 mg Q6H PRN GT Diarrhea 02/18/20 16:15 03/19/20 16:14 02/19/20 09:54 Midodrine (Pro-Amatine) 10 mg TID GT 02/07/20 18:00 04/21/20 17:59 02/19/20 09:37 Multivitamins (Multivitamins W/ Minerals 15ml Liquid) 15 ml DAILY GT 01/28/20 09:30 02/27/20 09:29 02/19/20 09:37 Pantoprazole (Protonix) 40 mg EVERY 12 HOURS IVP 01/31/20 09:30 03/01/20 09:29 02/19/20 09:36 Potassium Chloride (K-Dur) 40 meq TWICE A DAY ORAL 02/02/20 18:00 05/02/20 17:59 02/19/20 09:37 Sucralfate (Carafate) 1 gm FOUR TIMES A DAY ORAL 01/30/20 09:00 04/29/20 08:59 02/19/20 09:37 Thiamine HCl (Vitamin B1) 100 mg DAILY GT 01/28/20 09:30 02/27/20 09:29 02/19/20 09:37 Assessment/Plan Assessment/Plan ASSESSMENT VDRF/trach status Sepsis Possible pneumonia UTI recurrent GI bleeding severe C dif colitis Anemia secondary to GI bleeding Aspiration risk Dysphagia, feeding by G-tube Encephalopathy Acute kidney injury likely secondary to dehydration Recurrent bradycardia persistent Hypotension -improving Electrolyte imbalance Severe protein calorie malnutrition Hx of hypertension History of CVA Seizure disorder with witnessed seizure episode 01/07 Psychiatric disorder Presumed scabies, s/p Rx Thrombocytopenia-transient- resolved PLAN OF CARE [place] off Dopamine gtt, BP better with Midodrine only on IVF, vent support, pulm toilet ABG stable on current settings on SIMV mode 450-30-12 PEEP5 , no signs of resp distress on these settings keep settings as is and titrate as needed CXR 01/27 no acute disease pulm toilet via HHN CT chest 01/28 - with tree-in-bud nodular opacities in the medial left base and lingula with left bronchial bubbly material suggesting infectious or inflammatory bronchiolitis, likely due to aspiration. Small amount of similar foci seen in the right posterior lower lobe. Mild bronchiectasis and reticulation in the lingula, medial left base, and superior left upper lobe could also be due to chronic infection. CXR 02/01 -Interval development of retrocardiac airspace opacities which could represent atelectasis versus developing consolidation. probably ATX , given no fevers, resolved leukocytosis, no resp distress on current settings CXR 02/04 Bilateral mostly interstitial opacities; suspect largely chronic although there may be an acute component at the left lung base. The latter does appear somewhat improved since the previous exam. CXR 02/09 -> no definite infiltrate pancx-per ID CXR 01/13- no acute findings KUB 01/13- no acute findings UA + yeast , 01/12 UCX +yeast, started on Fluconazole 01/14 as per ID -completed BCX 01/12 NGTD BCX 01/26 and 01/27 NGTD Vanco po was prior dc and switched to Dificid , also on Flagyl per GI -till 01/28 , both extended till , completed inflammatory markers : ESR-42, CRP- wnl WBC smear NGT C dif a/b 01/30 NGT less output from rectal tube UCX 01/27 + Klebs CR- started on Gent per ID recs given prior leukocytosis and fevers SCX 02/02 + Serratia,Pseudomonas abx as per ID recs , Gent completed 02/10 ( prior extended for 3 days given mild leuk and fever), mild leuk this am ; no fevers CXR 02/09 no significant findings, no definite infiltrate CT C/ A/P noted ( see results of CT chest above), CT A/P with findings most compatible with ileus and probable infectious or inflammatory enteritis or enterocolitis. off cefepime rapid COVID 19 NGT in ED aspiration precautions Venous Duplex BLE -negative, get SCD ( unable to give a/c given anemia) closely monitor hemodynamic status repeated Venous Duplex BLE NGT heme and GI follows s/p prior EGD 01/01 -> gastric ulcer across G tube site , no active bleeding s/p EGD 01/30 -> gastric ulceration without visible bleeding Protonix IV bid ( changed from Protonix gtt), Carafate GT feeding resumed as per GI , s/p blood tx 01/30 stool OB positive , another pending transfuse to keep Hgb > 7. HH at baseline trend LFT-> trended down, hep panel NGT hx of cirrhosis- per GI management monitor renal parameters, lytes, avoid nephrotoxic IVF BUN trending down, creat stable, likely prerenal due to dehydration replace e/lytes as per nephro recs , monitor volumes seizure precautions, antiepileptic optimized as per neuro recs ammonia 49, fup with further neuro recs EEG - grossly abnormal; mild to mod encephalopathy, single ictal episode CT head no acute IC pathology BP management with current regimen SNF meds supportive care dietary recs s/p 12/31 Rx for presumed scabies with permethrin and Ivermectin, repeated Ivermectin 01/08 dc plan for today as per primary , apparently accepted case discussed and evaluated by supervising physician Jeyson Anderson MD 02/19/20 1135: Subjective Allergies: Coded Allergies: CARBAMAZEPINE (Verified Allergy, Unknown, 12/31/19) LORAZEPAM (Verified Allergy, Unknown, 12/31/19) Assessment/Plan Assessment/Plan Patient seen and examined with SAND SYSTEM OPERATOR and the above formulated assessment and plan. Ivanna Mora NP Feb 19, 2020 11:01 Jeyson Anderson MD Feb 19, 2020 11:35
[2020-02-19] MEDS: D5 1/2NS 1,000 ML IV SCH ×2 (11:24→22:30)
[2020-02-19 12:00] VITALS: BP 103/47
--- NOTE | 2020-02-19 14:26 | Surgery Progress Note ---
Surgery Progress Note Subjective Additional Comments trach okay comfortable d/c pending labs noted exam stable Objective Last 24 Hour Vital Signs Date Time Temp Pulse Resp B/P (MAP) Pulse Ox O2 Delivery O2 Flow Rate FiO2 02/19/20 12:00 35 02/19/20 12:00 59 02/19/20 12:00 96.8 52 18 103/47 (65) 100 02/19/20 12:00 Mechanical Ventilator 02/19/20 08:00 35 02/19/20 08:00 55 02/19/20 08:00 97.9 58 12 123/55 (77) 100 02/19/20 08:00 Mechanical Ventilator 02/19/20 07:28 70 21 40 02/19/20 04:00 Mechanical Ventilator 02/19/20 04:00 97.2 65 20 109/50 (69) 100 02/19/20 04:00 40 02/19/20 04:00 61 02/19/20 03:16 73 23 40 02/19/20 00:00 Mechanical Ventilator 02/19/20 00:00 97.7 57 20 111/57 (75) 100 02/19/20 00:00 57 02/18/20 23:05 69 19 40 02/18/20 20:00 48 02/18/20 20:00 Mechanical Ventilator 02/18/20 20:00 35 02/18/20 20:00 97.4 45 16 104/66 (79) 100 02/18/20 18:57 68 19 40 02/18/20 16:10 98.4 86 18 113/68 (83) 97 02/18/20 16:00 Mechanical Ventilator 02/18/20 16:00 60 02/18/20 16:00 35 02/18/20 15:00 71 18 40 I&O Intake and Output 02/18/20 02/19/20 19:00 07:00 Intake Total 110 ml 1396.25 ml Balance 110 ml 1396.25 ml Intake Free Water 120 ml IV Total 781.25 ml Tube Feeding 110 ml 495 ml # Bowel Movements 6 3 Dressing: other Wound: other Cardiovascular: RSR Respiratory: decreased breath sounds Abdomen: soft, non-tender, present bowel sounds Extremities: no tenderness, no cyanosis Laboratory Tests Test 02/19/20 05:14 White Blood Count 11.8 K/UL (4.8-10.8) H Red Blood Count 3.25 M/UL (4.20-5.40) L Hemoglobin 9.1 G/DL (12.0-16.0) L Hematocrit 28.6 % (37.0-47.0) L Mean Corpuscular Volume 88 FL (80-99) Mean Corpuscular Hemoglobin 28.0 PG (27.0-31.0) Mean Corpuscular Hemoglobin Concent 31.8 G/DL (32.0-36.0) L Red Cell Distribution Width 14.7 % (11.6-14.8) Platelet Count 628 K/UL (150-450) H Mean Platelet Volume 4.3 FL (6.5-10.1) L Neutrophils (%) (Auto) 67.7 % (45.0-75.0) Lymphocytes (%) (Auto) 22.7 % (20.0-45.0) Monocytes (%) (Auto) 6.2 % (1.0-10.0) Eosinophils (%) (Auto) 2.4 % (0.0-3.0) Basophils (%) (Auto) 1.0 % (0.0-2.0) Sodium Level 137 MMOL/L (136-145) Potassium Level 4.4 MMOL/L (3.5-5.1) Chloride Level 104 MMOL/L (98-107) Carbon Dioxide Level 31 MMOL/L (21-32) Anion Gap 2 mmol/L (5-15) L Blood Urea Nitrogen 11 mg/dL (7-18) Creatinine 0.5 MG/DL (0.55-1.30) L Estimat Glomerular Filtration Rate > 60 mL/min (>60) Glucose Level 85 MG/DL (74-106) Calcium Level 8.7 MG/DL (8.5-10.1) Phosphorus Level 2.7 MG/DL (2.5-4.9) Total Bilirubin 0.2 MG/DL (0.2-1.0) Aspartate Amino Transf (AST/SGOT) 67 U/L (15-37) H Alanine Aminotransferase (ALT/SGPT) 68 U/L (12-78) Alkaline Phosphatase 231 U/L (46-116) H Total Protein 6.4 G/DL (6.4-8.2) Albumin 1.9 G/DL (3.4-5.0) L Globulin 4.5 g/dL Albumin/Globulin Ratio 0.4 (1.0-2.7) L Plan Problems: (1) Pneumonia (2) Sepsis Assessment & Plan: leukocytosis anemia lactic acidosis agree with GI recommend EGD planned for 12/31 hold feeding for now trend h/h monitor for bleeding no acute hemorrhage will be available in event needs exploration for hemostasis prbc as per heme thank you will follow with recs cont abx worsening wbc wbc trending down comfortable appearing no n/v hypotensive in ICU again worse pending CT results - noted PICC ordered improving wbc improved labs and micro trending labs improved wbc resolved prognosis guarded Pt presented on admission in emaciated state. Pt has tracheostomy and GT. NO skin concerns noted to skin under collar of trach. NO erythema or evidence of skin erosion at GT site. Pt noted to have scaly pimple-like rash with webbing noted to R and L axillae, undersides of both breasts, Bilat groin and lower back. Tracking and webbing noted to hands and feet. Pt restless and scratching at skin. Non-Blanching erythema without induration or fluctuance noted to R and L hips and trochanteric areas.Non-blanching erythema noted along spine. Non-Blanching erythema without induration noted to Sacrum. Non-Blanching erythema noted to R and L Malleoli and both heels. Tx.Plan: Please apply Cavilon Skin Barrier to each bony Prominences at risks for Skin Breakdown. Cover each area with Optifoam drsgs. Change every 7 days and prn. Apply Moisture Barrier Paste to Sacrum. Cover with Optifoam drsg. Change every 3 days and prn. Reposition at least every 2hours or as tolerated. Off-load heels with pillow. APM/EMELI Mattress overlay. improving cont current care plan Incontinent social dermatitis noted around the bilateral groin creases and vaginal area. Site clean. Monitor for incontinence. There is marked enlargement of the third and lateral ventricles and extra axial CSF spaces, in particular the former. There is considerable periventricular deep white matter low-attenuation. Otherwise normal mobley-white differentiation. No acute hemorrhage or edema. No mass effect nor midline shift. Visualized orbits and sinuses are unremarkable. The calvarium is intact Impression: Third and lateral ventriculomegaly. Associated enlargement of the extra axial CSF spaces indicates that this is probably due to central volume loss, but the possibility of hydrocephalus should also be considered. At the degree of volume loss is considerably out of proportion to patient's age. Correlate with clinical history Periventricular deep white matter low-attenuation. Probably on the basis of microvascular ischemic change but given patient's age the possibility of demyelinating disease should be considered as well. Negative for acute intracranial bleed or mass effect ABDOMEN: Liver: Unremarkable. Gallbladder and bile ducts: Cholecystectomy. No ductal dilation. Pancreas: Unremarkable. No ductal dilation. Spleen: Unremarkable. No splenomegaly. Adrenals: Unremarkable. No mass. Kidneys and ureters: Unremarkable. No obstructing stones. No hydronephrosis. Stomach and bowel: Operative bowel findings. Diffuse small bowel wall thickening with areas of distention and fluid-filled colonic loops. No clear focal transition point to suggest small bowel obstruction. PELVIS: Appendix: Appendix not identified. Bladder: Urinary bladder wall thickening could be incidental, due to high outlet pressures, or could represent cystitis. No stones. Reproductive: Unremarkable as visualized. ABDOMEN and PELVIS: Intraperitoneal space: Large low-attenuation pelvic fluid of uncertain significance, potentially reactive. No free air. Bones/joints: No acute fracture. No dislocation. Soft tissues: Bilateral buttock injection granulomas. Vasculature: Unremarkable. No abdominal aortic aneurysm. Lymph nodes: Unremarkable. No enlarged lymph nodes. Tubes, lines and devices: Percutaneous gastrostomy tube adequately positioned in the stomach. Rectal tube. Other findings: No perforation seen. IMPRESSION: 1. Study substantially limited due to lack of IV contrast. 2. Findings most compatible with ileus and probable infectious or inflammatory enteritis or enterocolitis. 3. Large low-attenuation pelvic fluid of uncertain significance, potentially reactive. 4. Appendix not identified. 5. Percutaneous gastrostomy tube adequately positioned in the stomach. Rectal tube. 6. Urinary bladder wall thickening could be incidental, due to high outlet pressures, or could represent cystitis. 7. Cholecystectomy. (3) GI bleed (4) G tube feedings Assessment & Plan: DAILY ESTIMATED NEEDS: Needs based on Underweight, critical care 37.3kg 30-40 kcals/kg 0149-7677 total kcals 1.25-2 g protein/kg 47-75 g total protein 25-35 mL/kg 933-1306 total fluid mLs NUTRITION DIAGNOSIS: Increased kcal and pro needs r/t underweight status as evidenced by BMI 14.1, pt is 68% of ideal body weight w/ generalized severe wasting, trach and peg dep. CURRENT TF:Vital AF 1.2 @55 x20 hrs ENTERAL NUTRITION RECOMMENDATIONS: Vital AF 1.2 @ 55ml/hr x20 hrs to provide 1100ml 1320kcal 83g prot, 892ml free water - Rec to continue elemental TF formula while stool C-diff positive, +LBM - HOLD 1HR BEFORE AND AFTER SYNTHROID MEDS - Flush per MD. HOB over 30 degrees ADDITIONAL RECOMMENDATIONS: 1) Per SNF: 5'4" and 81# Maintain calibrated bed scale wts w/ added P200 mattress 2) Lytes daily madhav w/ loose stools, replete as needed 3) Skin integrity: Continue BRIAN VIA GT BID + Vit C 4) Accuchecks for Hypoglycemia 5) Add probiotics for stool C-diff+ . George Woods Feb 19, 2020 14:25
--- NOTE | 2020-02-19 15:04 | Infectious Diseases Prog Note ---
Assessment/Plan 39yo F with: Severe Sepsis Fever, recurrent; SP Leukocytosis; recurrent; mild UTI -02/04 CXR: Bilateral mostly interstitial opacities; suspect largely chronic althoughthere may be an acute component at the left lung base. The latter does appear somewhat improved since the previous exam. -02/02 sp cx S. marcences (R ancef, CTX, mami; I Levo; S Genta, Ceftazidime, Cefepime, bactrim), GNR #2 -02/01 CXR: Interval development of retrocardiac airspace opacities which could represent atelectasis versus developing consolidation. u/a wbc 5-10, nit neg, leuk +2; -01/28 CXR: Subtle reticular nodular opacities in the left apex which may be related to scarring versus acute small airway disease/bronchitis CT c/abd/p wo: Study substantially limited due to lack of IV contrast. Findings most compatible with ileus and probable infectious or inflammatory enteritis or enterocolitis. Large low-attenuation pelvic fluid of uncertain significance, potentially reactive.Appendix not identified. Percutaneous gastrostomy tube adequately positioned in the stomach. Rectal tube. Urinary bladder wall thickening could be incidental, due to high outlet pressures, or could represent cystitis.Cholecystectomy. -01/27 u/a no pyuria, nit +, leuk +3; ucx >100k CRE K, pna (S Gentamycin), P . miriabilis, MDR P, fluorensces (I Gentamycin) CXR: no acute disease Bc xNTD -01/26 Bcx Neg -01/13 CXR: no acute disease -01/12 u/a wbc tnct, nit neg, latrell +3; ucx >100k C. tropicalis Bcx NTD Severe Cdiff colitis -01/30 Cdif toxin a/b neg -01/06 Cdif toxin + 01/27 KUB:Severely dilated small bowel loop in the central abdomen could reflect obstruction. Diffusely fluid distended colon. -01/13 KUB: no acute findings Recurrent GIB 01/06 u/aneg 12/30 BCx 1/2 +CONS, likely contaminant 12/30 UA neg, COVID rapid Ag neg 12/30 CXR 1. Density overlying the bilateral lung apices. May represent pleural thickening, multifocal airspace opacities, versus summation artifact. 01/01 BCx Neg 01/02 BCx Neg Acute blood loss anemia Possible pna on CXR, sp rx Seizure episode -01/10 CT head: Third and lateral ventriculomegaly. Associated enlargement of the extra axial CSF spaces indicates that this is probably due to central volume loss, but the possibility of hydrocephalus should also be considered. At the degree of volume loss is considerably out of proportion to patient's age. Periventricular deep white matter low-attenuation. Probably on the basis of microvascular ischemic change but given patient's age the possibility of demyelinating disease should be considered as well. 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 [facility] will continue to follow. Subjective Allergies: Coded Allergies: CARBAMAZEPINE (Verified Allergy, Unknown, 12/31/19) LORAZEPAM (Verified Allergy, Unknown, 12/31/19) afebrile mild leukocytosis Objective Last 24 Hour Vital Signs Date Time Temp Pulse Resp B/P (MAP) Pulse Ox O2 Delivery O2 Flow Rate FiO2 02/19/20 12:00 35 02/19/20 12:00 59 02/19/20 12:00 96.8 52 18 103/47 (65) 100 02/19/20 12:00 Mechanical Ventilator 02/19/20 08:00 35 02/19/20 08:00 55 02/19/20 08:00 97.9 58 12 123/55 (77) 100 02/19/20 08:00 Mechanical Ventilator 02/19/20 07:28 70 21 40 02/19/20 04:00 Mechanical Ventilator 02/19/20 04:00 97.2 65 20 109/50 (69) 100 02/19/20 04:00 40 02/19/20 04:00 61 02/19/20 03:16 73 23 40 02/19/20 00:00 Mechanical Ventilator 02/19/20 00:00 97.7 57 20 111/57 (75) 100 02/19/20 00:00 57 02/18/20 23:05 69 19 40 02/18/20 20:00 48 02/18/20 20:00 Mechanical Ventilator 02/18/20 20:00 35 02/18/20 20:00 97.4 45 16 104/66 (79) 100 02/18/20 18:57 68 19 40 02/18/20 16:10 98.4 86 18 113/68 (83) 97 02/18/20 16:00 Mechanical Ventilator 02/18/20 16:00 60 02/18/20 16:00 35 Height (Feet): 5 Height (Inches): 1.00 Weight (Pounds): 82 General Appearance: no apparent distress Neck: supple Cardiovascular: normal rate Respiratory/Chest: decreased breath sounds Abdomen: hypoactive bowel sounds Extremities: non-tender Laboratory Tests Test 02/19/20 05:14 White Blood Count 11.8 K/UL (4.8-10.8) H Red Blood Count 3.25 M/UL (4.20-5.40) L Hemoglobin 9.1 G/DL (12.0-16.0) L Hematocrit 28.6 % (37.0-47.0) L Mean Corpuscular Volume 88 FL (80-99) Mean Corpuscular Hemoglobin 28.0 PG (27.0-31.0) Mean Corpuscular Hemoglobin Concent 31.8 G/DL (32.0-36.0) L Red Cell Distribution Width 14.7 % (11.6-14.8) Platelet Count 628 K/UL (150-450) H Mean Platelet Volume 4.3 FL (6.5-10.1) L Neutrophils (%) (Auto) 67.7 % (45.0-75.0) Lymphocytes (%) (Auto) 22.7 % (20.0-45.0) Monocytes (%) (Auto) 6.2 % (1.0-10.0) Eosinophils (%) (Auto) 2.4 % (0.0-3.0) Basophils (%) (Auto) 1.0 % (0.0-2.0) Sodium Level 137 MMOL/L (136-145) Potassium Level 4.4 MMOL/L (3.5-5.1) Chloride Level 104 MMOL/L (98-107) Carbon Dioxide Level 31 MMOL/L (21-32) Anion Gap 2 mmol/L (5-15) L Blood Urea Nitrogen 11 mg/dL (7-18) Creatinine 0.5 MG/DL (0.55-1.30) L Estimat Glomerular Filtration Rate > 60 mL/min (>60) Glucose Level 85 MG/DL (74-106) Calcium Level 8.7 MG/DL (8.5-10.1) Phosphorus Level 2.7 MG/DL (2.5-4.9) Total Bilirubin 0.2 MG/DL (0.2-1.0) Aspartate Amino Transf (AST/SGOT) 67 U/L (15-37) H Alanine Aminotransferase (ALT/SGPT) 68 U/L (12-78) Alkaline Phosphatase 231 U/L (46-116) H Total Protein 6.4 G/DL (6.4-8.2) Albumin 1.9 G/DL (3.4-5.0) L Globulin 4.5 g/dL Albumin/Globulin Ratio 0.4 (1.0-2.7) L Current Medications Medications (Trade) Dose Ordered Sig/Villa Route PRN Reason Start Time Stop Time Status Last Admin Dose Admin Acetaminophen (Tylenol) 650 mg Q4H PRN GT Temp >100.5 02/01/20 20:30 03/02/20 20:29 02/14/20 20:50 Ascorbic Acid (Vitamin C) 500 mg DAILY GT 01/28/20 09:30 02/27/20 09:29 02/19/20 09:37 Clonazepam (KlonoPIN) 1 mg EVERY 8 HOURS GT 02/14/20 14:00 02/21/20 13:59 02/19/20 13:55 Dextrose/Sodium Chloride 1,000 ml @ 75 mls/hr [id number] IV 01/29/20 13:00 02/27/20 12:59 02/19/20 11:24 Famotidine (Pepcid I.v.) 20 mg Q12HR IVP 01/29/20 21:00 02/28/20 20:59 02/19/20 09:37 Loperamide HCl (Imodium) 2 mg Q6H PRN GT Diarrhea 02/18/20 16:15 03/19/20 16:14 02/19/20 09:54 Midodrine (Pro-Amatine) 10 mg TID GT 02/07/20 18:00 04/21/20 17:59 02/19/20 13:55 Multivitamins (Multivitamins W/ Minerals 15ml Liquid) 15 ml DAILY GT 01/28/20 09:30 02/27/20 09:29 02/19/20 09:37 Pantoprazole (Protonix) 40 mg EVERY 12 HOURS IVP 01/31/20 09:30 03/01/20 09:29 02/19/20 09:36 Potassium Chloride (K-Dur) 40 meq TWICE A DAY ORAL 02/02/20 18:00 05/02/20 17:59 02/19/20 09:37 Sucralfate (Carafate) 1 gm FOUR TIMES A DAY ORAL 01/30/20 09:00 04/29/20 08:59 02/19/20 13:55 Thiamine HCl (Vitamin B1) 100 mg DAILY GT 01/28/20 09:30 02/27/20 09:29 02/19/20 09:37 Char Morel M.D. Feb 19, 2020 15:04
[2020-02-19 16:00] VITALS: BP 104/47
[2020-02-19] MEDS ORDERED: D5 1/2NS 1000ml IV ONE (17:55)
[2020-02-19 20:00] VITALS: BP 121/68
--- NOTE | 2020-02-19 21:59 | General Progress Note ---
Subjective Constitutional: Reports: no symptoms HEENT: Reports: no symptoms Cardiovascular: Reports: no symptoms Respiratory: Reports: no symptoms Gastrointestinal/Abdominal: Reports: no symptoms Genitourinary: Reports: no symptoms Neurologic/Psychiatric: Reports: no symptoms Hematologic/Lymphatic: Reports: no symptoms Allergies: Coded Allergies: CARBAMAZEPINE (Verified Allergy, Unknown, 12/31/19) LORAZEPAM (Verified Allergy, Unknown, 12/31/19) Objective Last 24 Hour Vital Signs Date Time Temp Pulse Resp B/P (MAP) Pulse Ox O2 Delivery O2 Flow Rate FiO2 02/19/20 18:30 55 22 40 02/19/20 16:00 51 02/19/20 16:00 Mechanical Ventilator 02/19/20 16:00 97.3 51 16 104/47 (66) 100 02/19/20 16:00 35 02/19/20 15:25 59 20 40 02/19/20 12:00 35 02/19/20 12:00 59 02/19/20 12:00 96.8 52 18 103/47 (65) 100 02/19/20 12:00 Mechanical Ventilator 02/19/20 11:33 59 20 40 02/19/20 08:00 35 02/19/20 08:00 55 02/19/20 08:00 97.9 58 12 123/55 (77) 100 02/19/20 08:00 Mechanical Ventilator 02/19/20 07:28 70 21 40 02/19/20 04:00 Mechanical Ventilator 02/19/20 04:00 97.2 65 20 109/50 (69) 100 02/19/20 04:00 40 02/19/20 04:00 61 02/19/20 03:16 73 23 40 02/19/20 00:00 Mechanical Ventilator 02/19/20 00:00 97.7 57 20 111/57 (75) 100 02/19/20 00:00 57 02/18/20 23:05 69 19 40 Intake and Output 02/18/20 02/19/20 19:00 07:00 Intake Total 110 ml 1396.25 ml Balance 110 ml 1396.25 ml Intake Free Water 120 ml IV Total 781.25 ml Tube Feeding 110 ml 495 ml # Bowel Movements 6 3 Laboratory Tests 02/19/20 05:14: White Blood Count 11.8H, Red Blood Count 3.25L, Hemoglobin 9.1L, Hematocrit 28.6L, Mean Corpuscular Volume 88, Mean Corpuscular Hemoglobin 28.0, Mean Corpuscular Hemoglobin Concent 31.8L, Red Cell Distribution Width 14.7, Platelet Count 628H, Mean Platelet Volume 4.3L, Neutrophils (%) (Auto) 67.7, Lymphocytes (%) (Auto) 22.7, Monocytes (%) (Auto) 6.2, Eosinophils (%) (Auto) 2.4, Basophils (%) (Auto) 1.0, Sodium Level 137, Potassium Level 4.4, Chloride Level 104, Carbon Dioxide Level 31, Anion Gap 2L, Blood Urea Nitrogen 11, Creatinine 0.5L, Estimat Glomerular Filtration Rate > 60, Glucose Level 85, Calcium Level 8.7, Phosphorus Level 2.7, Total Bilirubin 0.2, Aspartate Amino Transf (AST/SGOT) 67H , Alanine Aminotransferase (ALT/SGPT) 68, Alkaline Phosphatase 231H, Total Protein 6.4, Albumin 1.9L, Globulin 4.5, Albumin/Globulin Ratio 0.4L Height (Feet): 5 Height (Inches): 1.00 Weight (Pounds): 82 General Appearance: WD/WN, no apparent distress, alert EENT: normal ENT inspection Neck: supple Cardiovascular: normal rate, regular rhythm, no gallop/murmur, no JVD Respiratory/Chest: lungs clear, normal breath sounds, no respiratory distress, no accessory muscle use Abdomen: non tender, soft, no organomegaly, no mass Extremities: non-tender Neurologic: alert, aphasia Assessment/Plan Problem List: (1) Pneumonia ICD Codes: J18.9 - Pneumonia, unspecified organism SNOMED: 848532071 (2) Sepsis ICD Codes: A41.9 - Sepsis, unspecified organism SNOMED: 84464363 (3) GI bleed ICD Codes: K92.2 - Gastrointestinal hemorrhage, unspecified SNOMED: 13123114 (4) Anemia ICD Codes: D64.9 - Anemia, unspecified SNOMED: 620133549 (5) Seizure disorder ICD Codes: G40.909 - Epilepsy, unspecified, not intractable, without status epilepticus SNOMED: 541334292 (6) Malnutrition ICD Codes: E46 - Unspecified protein-calorie malnutrition SNOMED: 18163046 (7) Thrombocytopenia ICD Codes: D69.6 - Thrombocytopenia, unspecified SNOMED: 846677331 Status: stable, other - Patient is now hypotensive before over 47 she will receive 500 cc of normal saline bolus to be repeated blood pressure remained below 90 further management will be decided following the boluses treatment repeat laboratory tests will be done in kori MCKAY MD Status Narrative Patient is awake alert afebrile and hemodynamically stable. There is loss of place in a subacute unit because of history of scabies and unconvincing reason. She is has indifferent affect with this regard to the examination but appears comfortable. Her diarrhea resolved. And she is not attempt to remove tracheostomy of IV. Patient latest WBC of 11 point 3 repeat laboratory tests and chest x-ray will be done in [email or web address] MCKAY MD Assessment/Plan: Glenny Guadarrama MD Feb 19, 2020 21:59
[2020-02-20] VITALS: BP 103/69
[2020-02-20 04:00] VITALS: BP 98/68
[2020-02-20 04:25] LABS: BASOPHILS % (AUTO) 1.1 % (0.0-2.0); EOSINOPHILS % (AUTO) 2.6 % (0.0-3.0); HEMATOCRIT 31.1 % (37.0-47.0); LYMPHOCYTES % (AUTO) 19.2 % (20.0-45.0); MEAN CORPUSCULAR VOLUME 87 FL (80-99); MONOCYTES % (AUTO) 7.1 % (1.0-10.0); PLATELET COUNT 637 K/UL (150-450); RED BLOOD COUNT 3.57 M/UL (4.20-5.40); RED CELL DISTRIBUTION WIDTH 14.4 % (11.6-14.8); WHITE BLOOD COUNT 11.4 K/UL (4.8-10.8)
[2020-02-20 04:44] LABS: BLOOD UREA NITROGEN 10 mg/dL (7-18); CALCIUM 9.1 MG/DL (8.5-10.1); CARBON DIOXIDE 29 MMOL/L (21-32); CREATININE 0.6 MG/DL (0.55-1.30)
[2020-02-20 04:55] LABS: CHLORIDE 100 MMOL/L (98-107); POTASSIUM 4.1 MMOL/L (3.5-5.1); SODIUM 134 MMOL/L (136-145)
--- NOTE | 2020-02-20 06:56 | Hematology/Onc Progress Note ---
Assessment/Plan Assessment/Plan # Anemia rule out underlying gi bleed --> Dr. Carrillo has been consulted-->endosco gastric ulceration --> trend hgb 7-->7.4-->7.9-->8.1->9.6-->8.5->9.1-->10-->11-->10.3-->10.4-->11->9.8-->7.4 ->9-->10.5-->9.1-->8.7-->8.4-->8.6-->8.7-->8.8 --> anemia panel ordered-->reviewed --> prn transfusion --> protonix started # Leukocytosis is likely related to pna on imaging --> abx has been started --> Abx vanc/zosyn--> ceftriaxone-->vanc->fluc/flagyl/va nc-->flagyl/fidoxomicin->vanc/cefepime/flagyl-->gentamcinflagyl->off --> smear is noted --> wbc 25-->15-->14-->16->7.6-->12-->20 ->13->11->14-->33-->16->8->11-->12->10.5-->19 --> pressors prn # Thrombocytopenia med related v labs error --> plt trend 167-->61-->227->373->457 --> meds have been reviewed --> no hep or lovenox # Sepsis --> on abx for pna --> pressors as needed --> fluids as per pcp for hypotension # Pneumonia --> pulm, Dr. 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, will follow Subjective HEENT: Denies: no symptoms, eye pain, blurred vision, tearing, double vision, ear pain, ear discharge, nose pain, nose congestion, throat pain, throat swelling, mouth pain, mouth swelling, other Cardiovascular: Denies: no symptoms, chest pain, edema, irregular heart rate, lightheadedness, palpitations, syncope, other Respiratory: Denies: no symptoms, cough, shortness of breath, SOB with excertion, SOB at rest, sputum, wheezing, other Gastrointestinal/Abdominal: Denies: no symptoms, abdomen distended, abdominal pain, black stools, tarry stools, blood in stool, constipated, diarrhea, difficulty swallowing, nausea, poor appetite, poor fluid intake, rectal bleeding, vomiting, other Genitourinary: Denies: no symptoms, burning, discharge, frequency, flank pain, hematuria, incontinence, pain, urgency, other Neurologic/Psychiatric: Denies: no symptoms, anxiety, depressed, emotional problems, headache, numbness, paresthesia, pre-existing deficit, seizure, tingling, tremors, weakness, other Endocrine: Denies: no symptoms, excessive sweating, flushing, intolerance to cold, intolerance to heat, increased hunger, increased thirst, increased urine, unexplained weight gain, unexplained weight loss, other Allergies: Coded Allergies: CARBAMAZEPINE (Verified Allergy, Unknown, 12/31/19) LORAZEPAM (Verified Allergy, Unknown, 12/31/19) Subjective 01/01 altered, trach, no bleedin wbc improved on abx, seen by gi 01/02 egd study noted, also with plts 61k, have vitaly Armendariz Rn, will recheck cbc 01/03 remains agitated, vitaly rn, no bleeding, cbc noted as well as id recs 01/04 on vent, with melena overnight, no bleeding, vitaly rn, labs reviewed 01/06 on vent, remains agitated, no bleeding, vitaly rn, smear is noted 01/07 on vent, restless, asymptomatic, noncooperative 01/[address] John obtained, reviewed, meds adjusted, eeg pending 01/09 labs noted, no bleeding, ativan has been discontinued, meds reviewed 01/10 trach to vent, agitated, with wrist restraints, no major changes, no bleeding 01/11 labs are reviewed, on trach to vent, no bleeding, agitated overnight, no complaints 01/13 labs noted, no bleeding, is on vent/trach, no bleeding, dw rn, labs are noted 01/14 labs are noted, no bleeding, remains on v/t, remains agitated, no bleeding 01/15 is c.diff positive, wbc higher at 21k, labs noted, on abx, reviewed gi, id recs 01/16 remains on vent, wbc is improved, in sr, as abx per id 01/17 recieved dopamine, tube feeds, on soft restraints, no bleeding, vitaly rn 01/18 labs are noted, no bleeding, vitaly rn, no major changes 01/20 on dopamine gtt, with restraints, no major changes, labs noted 01/21 labs reviewed, no bleeding, vitaly rn, no major changes 01/22 transferred to icu for higher loc, dopamine on hold as bp is good, have increased Synthroid 01/23 labs are pending, meds noted, no bleeding, dopamine gtt ongoing, cbc noted 01/24 still nv, no bleeding, labs reviewed, vitaly rn, with rectal tube in place, on dopamine gtt 01/25 is on bipap, nv, no bleeding, remains on low dose pressorm hgb 11 01/27 on dopamine, hr was elevated overnight, cards aware 01/28 on vent, with ivfs running, rectal tube with red blood noted, consider gi eval 01/29 on vent, labs reviewed, wbc 22, hgb 8.4, on abx currently, vanc/flagyl/cefepime 02/02 labs reviewed, no bleeding, on vent, no night sweats, wbc improved 02/03 is on gtube feeds, with trach to vent, oxygen as needed, labs wbc better 02/04 nv, is on gt, on vent, no bleeding, labs are noted, guarded prognosis 02/05 labs are noted, nv, is on gt feeds, no bleeding, abx as needed 02/06 labs reviewed, is on tube feeds, on vent, nv, no bleeding 02/07 labs are noted, no bleeding, trach/to vent, wth gtube, meds reviewed 02/08 very agitated, no bleeding, med noted, no night sweats, in restraints 02/10 off dopamine currently, labs reviewed, overnight agitated 02/12 still agitated overnight, cbc has been reordered recent hgb reviewed 02/13 labs reviewed, is on ivfs, meds noted, no bleeding, vitaly rn, hgb 8.7 02/14 labs reviewed, on vent, and rectal tube, meds noted 02/15 remains on vent, gtube feeds, labs are noted, hgb 8.8 02/17 is without events, labs ordered, for dispo planning 02/18 tolerating trach well, slightly yeni overnight, dc planning 02/19 labs are noted, no bleeding, wbc 11, with seizure episode overnightm, neuro aware Objective Objective Current Medications Medications (Trade) Dose Ordered Sig/Villa Route PRN Reason Start Time Stop Time Status Last Admin Dose Admin Acetaminophen (Tylenol) 650 mg Q4H PRN GT Temp >100.5 02/01/20 20:30 03/02/20 20:29 02/14/20 20:50 Ascorbic Acid (Vitamin C) 500 mg DAILY GT 01/28/20 09:30 02/27/20 09:29 02/19/20 09:37 Clonazepam (KlonoPIN) 1 mg EVERY 8 HOURS GT 02/14/20 14:00 02/21/20 13:59 02/20/20 06:53 Dextrose/Sodium Chloride 1,000 ml @ 75 mls/hr [id number] IV 01/29/20 13:00 02/27/20 12:59 02/19/20 22:30 Famotidine (Pepcid I.v.) 20 mg Q12HR IVP 01/29/20 21:00 02/28/20 20:59 02/19/20 20:43 Loperamide HCl (Imodium) 2 mg Q6H PRN GT Diarrhea 02/18/20 16:15 03/19/20 16:14 02/19/20 17:35 Midodrine (Pro-Amatine) 10 mg TID GT 02/07/20 18:00 04/21/20 17:59 02/19/20 17:35 Multivitamins (Multivitamins W/ Minerals 15ml Liquid) 15 ml DAILY GT 01/28/20 09:30 02/27/20 09:29 02/19/20 09:37 Pantoprazole (Protonix) 40 mg EVERY 12 HOURS IVP 01/31/20 09:30 03/01/20 09:29 02/19/20 20:43 Potassium Chloride (K-Dur) 40 meq TWICE A DAY ORAL 02/02/20 18:00 05/02/20 17:59 02/19/20 17:35 Sucralfate (Carafate) 1 gm FOUR TIMES A DAY ORAL 01/30/20 09:00 04/29/20 08:59 02/19/20 20:43 Thiamine HCl (Vitamin B1) 100 mg DAILY GT 01/28/20 09:30 02/27/20 09:29 02/19/20 09:37 Last 24 Hour Vital Signs Date Time Temp Pulse Resp B/P (MAP) Pulse Ox O2 Delivery O2 Flow Rate FiO2 02/20/20 04:00 Mechanical Ventilator 02/20/20 04:00 98.0 62 20 98/68 (78) 100 02/20/20 04:00 35 02/20/20 03:27 56 02/20/20 02:31 59 14 40 02/20/20 00:00 35 02/20/20 00:00 Mechanical Ventilator 02/20/20 00:00 97.9 58 20 103/69 (80) 100 02/19/20 23:36 47 02/19/20 22:30 58 20 40 02/19/20 20:00 Mechanical Ventilator 02/19/20 20:00 98.0 75 18 121/68 (85) 100 02/19/20 20:00 35 02/19/20 19:10 59 02/19/20 18:30 55 22 40 02/19/20 16:00 51 02/19/20 16:00 Mechanical Ventilator 02/19/20 16:00 97.3 51 16 104/47 (66) 100 02/19/20 16:00 35 02/19/20 15:25 59 20 40 02/19/20 12:00 35 02/19/20 12:00 59 02/19/20 12:00 96.8 52 18 103/47 (65) 100 02/19/20 12:00 Mechanical Ventilator 02/19/20 11:33 59 20 40 02/19/20 08:00 35 02/19/20 08:00 55 02/19/20 08:00 97.9 58 12 123/55 (77) 100 02/19/20 08:00 Mechanical Ventilator 02/19/20 07:28 70 21 40 02/19/20 04:00 Mechanical Ventilator 02/19/20 04:00 97.2 65 20 109/50 (69) 100 02/19/20 04:00 40 02/19/20 04:00 61 02/19/20 03:16 73 23 40 02/19/20 00:00 Mechanical Ventilator 02/19/20 00:00 97.7 57 20 111/57 (75) 100 02/19/20 00:00 57 02/18/20 23:05 69 19 40 02/18/20 20:00 48 02/18/20 20:00 Mechanical Ventilator 02/18/20 20:00 35 02/18/20 20:00 97.4 45 16 104/66 (79) 100 02/18/20 18:57 68 19 40 02/18/20 16:10 98.4 86 18 113/68 (83) 97 02/18/20 16:00 Mechanical Ventilator 02/18/20 16:00 60 02/18/20 16:00 35 02/18/20 15:00 71 18 40 02/18/20 12:00 97.9 82 18 106/37 (60) 97 02/18/20 12:00 35 02/18/20 12:00 89 02/18/20 12:00 Mechanical Ventilator 02/18/20 11:00 65 19 40 02/18/20 08:00 Mechanical Ventilator 02/18/20 08:00 90 02/18/20 08:00 35 02/18/20 08:00 98.3 97 18 113/57 (75) 96 02/18/20 07:28 68 23 40 Intake and Output 02/19/20 02/20/20 19:00 07:00 Intake Total 1440 ml 1192.5 ml Balance 1440 ml 1192.5 ml Intake Free Water 240 ml IV Total 825 ml 712.5 ml Tube Feeding 375 ml 480 ml # Voids 3 5 # Bowel Movements 5 3 Labs Test 02/19/20 05:14 02/20/20 03:46 White Blood Count 11.8 K/UL (4.8-10.8) 11.4 K/UL (4.8-10.8) Red Blood Count 3.25 M/UL (4.20-5.40) 3.57 M/UL (4.20-5.40) Hemoglobin 9.1 G/DL (12.0-16.0) 10.0 G/DL (12.0-16.0) Hematocrit 28.6 % (37.0-47.0) 31.1 % (37.0-47.0) Mean Corpuscular Volume 88 FL (80-99) 87 FL (80-99) Mean Corpuscular Hemoglobin 28.0 PG (27.0-31.0) 28.1 PG (27.0-31.0) Mean Corpuscular Hemoglobin Concent 31.8 G/DL (32.0-36.0) 32.2 G/DL (32.0-36.0) Red Cell Distribution Width 14.7 % (11.6-14.8) 14.4 % (11.6-14.8) Platelet Count 628 K/UL (150-450) 637 K/UL (150-450) Mean Platelet Volume 4.3 FL (6.5-10.1) 4.5 FL (6.5-10.1) Neutrophils (%) (Auto) 67.7 % (45.0-75.0) 70.0 % (45.0-75.0) Lymphocytes (%) (Auto) 22.7 % (20.0-45.0) 19.2 % (20.0-45.0) Monocytes (%) (Auto) 6.2 % (1.0-10.0) 7.1 % (1.0-10.0) Eosinophils (%) (Auto) 2.4 % (0.0-3.0) 2.6 % (0.0-3.0) Basophils (%) (Auto) 1.0 % (0.0-2.0) 1.1 % (0.0-2.0) Sodium Level 137 MMOL/L (136-145) 134 MMOL/L (136-145) Potassium Level 4.4 MMOL/L (3.5-5.1) 4.1 MMOL/L (3.5-5.1) Chloride Level 104 MMOL/L (98-107) 100 MMOL/L (98-107) Carbon Dioxide Level 31 MMOL/L (21-32) 29 MMOL/L (21-32) Anion Gap 2 mmol/L (5-15) Blood Urea Nitrogen 11 mg/dL (7-18) 10 mg/dL (7-18) Creatinine 0.5 MG/DL (0.55-1.30) 0.6 MG/DL (0.55-1.30) Estimat Glomerular Filtration Rate > 60 mL/min (>60) > 60 mL/min (>60) Glucose Level 85 MG/DL (74-106) 109 MG/DL (74-106) Calcium Level 8.7 MG/DL (8.5-10.1) 9.1 MG/DL (8.5-10.1) Phosphorus Level 2.7 MG/DL (2.5-4.9) Total Bilirubin 0.2 MG/DL (0.2-1.0) Aspartate Amino Transf (AST/SGOT) 67 U/L (15-37) Alanine Aminotransferase (ALT/SGPT) 68 U/L (12-78) Alkaline Phosphatase 231 U/L (46-116) Total Protein 6.4 G/DL (6.4-8.2) Albumin 1.9 G/DL (3.4-5.0) Globulin 4.5 g/dL Albumin/Globulin Ratio 0.4 (1.0-2.7) Height (Feet): 5 Height (Inches): 1.00 Weight (Pounds): 82 Objective Vital Signs General Appearance: ++ cachectic, chronically ill HEENT: normocephalic, atraumatic ++ trach Resp: other -. vent ++ Cardiovascular: regular rate, rhythm, no edema Gastrointestinal: gtube in place, without erythema Rectal: other - Hemoccult positive [place]: back normal, gait/station normal, non-tender Lymphatic: no adenopathy Baltazar Cortes MD Feb 20, 2020 06:56
[2020-02-20 08:00] VITALS: BP 99/67
[2020-02-20] MEDS: Midodrine 10mg tab GT SCH ×2 (09:01→13:49)
[2020-02-20] MEDS: Multivitamins W/Minerals 15 ML UDC GT SCH (09:01)
[2020-02-20] MEDS: Gabapentin 300 MG/6 ML Soln GT SCH ×2 (09:01→13:49)
[2020-02-20] MEDS: Pantoprazole Inj IVP SCH (09:01)
[2020-02-20] MEDS: Ascorbic Acid 500mg tab GT SCH (09:02)
[2020-02-20] MEDS: Thiamine 100mg tab GT SCH (09:02)
[2020-02-20] MEDS: Sucralfate 1gm tab ORAL SCH ×2 (09:02→13:49)
--- NOTE | 2020-02-20 11:36 | Pulmonology Progress Note ---
Ivanna Mora [employer]ILDING [employer]CTION [employer] 02/20/20 1136: Subjective ROS Limited/Unobtainable: Yes Allergies: Coded Allergies: CARBAMAZEPINE (Verified Allergy, Unknown, 12/31/19) LORAZEPAM (Verified Allergy, Unknown, 12/31/19) All Systems: reviewed and negative except above Subjective was not dc 02/18 due to recurrent seizure activity in JULIANA no seizures today no signs of resp distress on current vent settings on Midodrine, remains afebrile CXR 02/09 - no definite infiltrate repeated venous Duplex BLE NGT dc plan in progress , Objective Last 24 Hour Vital Signs Date Time Temp Pulse Resp B/P (MAP) Pulse Ox O2 Delivery O2 Flow Rate FiO2 02/20/20 08:00 71 02/20/20 08:00 Mechanical Ventilator 02/20/20 08:00 35 02/20/20 08:00 97.9 56 18 99/67 (78) 100 02/20/20 07:01 63 20 40 02/20/20 04:00 Mechanical Ventilator 02/20/20 04:00 98.0 62 20 98/68 (78) 100 02/20/20 04:00 35 02/20/20 03:27 56 02/20/20 02:31 59 14 40 02/20/20 00:00 35 02/20/20 00:00 Mechanical Ventilator 02/20/20 00:00 97.9 58 20 103/69 (80) 100 02/19/20 23:36 47 02/19/20 22:30 58 20 40 02/19/20 20:00 Mechanical Ventilator 02/19/20 20:00 98.0 75 18 121/68 (85) 100 02/19/20 20:00 35 02/19/20 19:10 59 02/19/20 18:30 55 22 40 02/19/20 16:00 51 02/19/20 16:00 Mechanical Ventilator 02/19/20 16:00 97.3 51 16 104/47 (66) 100 02/19/20 16:00 35 02/19/20 15:25 59 20 40 02/19/20 12:00 35 02/19/20 12:00 59 02/19/20 12:00 96.8 52 18 103/47 (65) 100 02/19/20 12:00 Mechanical Ventilator 02/19/20 11:33 59 20 40 Intake and Output 02/19/20 02/20/20 19:00 07:00 Intake Total 1440 ml 1192.5 ml Balance 1440 ml 1192.5 ml Intake Free Water 240 ml IV Total 825 ml 712.5 ml Tube Feeding 375 ml 480 ml # Voids 3 5 # Bowel Movements 5 3 Objective General Appearance: bedridden, pale, chronically ill looking, older than her biological age ; vent dependent female ; on vent SIMV 450-30%-12, PEEP 5 Lines, tubes and drains: trach HEENT: normocephalic, atraumatic Neck: trach - Portex #7, secretions small amount, yellow color, thin consistency Respiratory/Chest: CTAB Cardiovascular/Chest: regular rate, regular rhythm Abdomen: non tender, soft, G tube , Genitourinary/Rectal: [place] Extremities: no edema, muscle atrophy Neurologic: abnormal gait, awake, poorly responsive Musculoskeletal: atrophy BLE Skin: multiple tattoos Laboratory Tests 02/20/20 03:46: White Blood Count 11.4H, Red Blood Count 3.57L, Hemoglobin 10.0L, Hematocrit 31.1L, Mean Corpuscular Volume 87, Mean Corpuscular Hemoglobin 28.1, Mean Corpuscular Hemoglobin Concent 32.2, Red Cell Distribution Width 14.4, Platelet Count 637H, Mean Platelet Volume 4.5L, Neutrophils (%) (Auto) 70.0, Lymphocytes (%) (Auto) 19.2L, Monocytes (%) (Auto) 7.1, Eosinophils (%) (Auto) 2.6, Basophils (%) (Auto) 1.1, Sodium Level 134L, Potassium Level 4.1, Chloride Level 100, Carbon Dioxide Level 29, Blood Urea Nitrogen 10, Creatinine 0.6, Estimat Glomerular Filtration Rate > 60, Glucose Level 109H, Calcium Level 9.1 Current Medications Medications (Trade) Dose Ordered Sig/Villa Route PRN Reason Start Time Stop Time Status Last Admin Dose Admin Acetaminophen (Tylenol) 650 mg Q4H PRN GT Temp >100.5 02/01/20 20:30 03/02/20 20:29 02/14/20 20:50 Ascorbic Acid (Vitamin C) 500 mg DAILY GT 01/28/20 09:30 02/27/20 09:29 02/20/20 09:02 Clonazepam (KlonoPIN) 1 mg EVERY 8 HOURS GT 02/14/20 14:00 02/21/20 13:59 02/20/20 06:53 Dextrose/Sodium Chloride 1,000 ml @ 75 mls/hr [id number] IV 01/29/20 13:00 02/27/20 12:59 02/19/20 22:30 Famotidine (Pepcid I.v.) 20 mg Q12HR IVP 01/29/20 21:00 02/28/20 20:59 02/20/20 09:01 Gabapentin (Neurontin) 900 mg THREE TIMES A DAY GT 02/20/20 09:00 03/21/20 08:59 02/20/20 09:01 Loperamide HCl (Imodium) 2 mg Q6H PRN GT Diarrhea 02/18/20 16:15 03/19/20 16:14 02/19/20 17:35 Midodrine (Pro-Amatine) 10 mg TID GT 02/07/20 18:00 04/21/20 17:59 02/20/20 09:01 Multivitamins (Multivitamins W/ Minerals 15ml Liquid) 15 ml DAILY GT 01/28/20 09:30 02/27/20 09:29 02/20/20 09:01 Pantoprazole (Protonix) 40 mg EVERY 12 HOURS IVP 01/31/20 09:30 03/01/20 09:29 02/20/20 09:01 Potassium Chloride (K-Dur) 40 meq TWICE A DAY ORAL 02/02/20 18:00 05/02/20 17:59 02/20/20 09:02 Sucralfate (Carafate) 1 gm FOUR TIMES A DAY ORAL 01/30/20 09:00 04/29/20 08:59 02/20/20 09:02 Thiamine HCl (Vitamin B1) 100 mg DAILY GT 01/28/20 09:30 02/27/20 09:29 02/20/20 09:02 Assessment/Plan Assessment/Plan ASSESSMENT VDRF/trach status Sepsis Possible pneumonia UTI recurrent GI bleeding severe C dif colitis Anemia secondary to GI bleeding Aspiration risk Dysphagia, feeding by G-tube Encephalopathy Acute kidney injury likely secondary to dehydration Recurrent bradycardia persistent Hypotension -improving Electrolyte imbalance Severe protein calorie malnutrition Hx of hypertension History of CVA Seizure disorder with witnessed seizure episode 01/07 Psychiatric disorder Presumed scabies, s/p Rx Thrombocytopenia-transient- resolved PLAN OF CARE JULIANA not dc 02/18 due to seizure episodes consider neuro reeval as per primary team decision off Dopamine gtt, BP better with Midodrine only on IVF, vent support, pulm toilet ABG stable on current settings on SIMV mode 450-30-12 PEEP5 , no signs of resp distress on these settings keep settings as is and titrate as needed CXR 01/27 no acute disease pulm toilet via HHN CT chest 01/28 - with tree-in-bud nodular opacities in the medial left base and lingula with left bronchial bubbly material suggesting infectious or inflammatory bronchiolitis, likely due to aspiration. Small amount of similar foci seen in the right posterior lower lobe. Mild bronchiectasis and reticulation in the lingula, medial left base, and superior left upper lobe could also be due to chronic infection. CXR 02/01 -Interval development of retrocardiac airspace opacities which could represent atelectasis versus developing consolidation. probably ATX , given no fevers, resolved leukocytosis, no resp distress on current settings CXR 02/04 Bilateral mostly interstitial opacities; suspect largely chronic although there may be an acute component at the left lung base. The latter does appear somewhat improved since the previous exam. CXR 02/09 -> no definite infiltrate pancx-per ID CXR 01/13- no acute findings KUB 01/13- no acute findings UA + yeast , 01/12 UCX +yeast, started on Fluconazole 01/14 as per ID -completed BCX 01/12 NGTD BCX 01/26 and 01/27 NGTD Vanco po was prior dc and switched to Dificid , also on Flagyl per GI -till 01/28 , both extended till , completed inflammatory markers : ESR-42, CRP- wnl WBC smear NGT C dif a/b 01/30 NGT less output from rectal tube UCX 01/27 + Klebs CR- started on Gent per ID recs given prior leukocytosis and fevers SCX 02/02 + Serratia,Pseudomonas abx as per ID recs , Gent completed 02/10 ( prior extended for 3 days given mild leuk and fever), mild leuk this am ; no fevers CXR 02/09 no significant findings, no definite infiltrate CT C/ A/P noted ( see results of CT chest above), CT A/P with findings most compatible with ileus and probable infectious or inflammatory enteritis or enterocolitis. off cefepime rapid COVID 19 NGT in ED aspiration precautions Venous Duplex BLE -negative, get SCD ( unable to give a/c given anemia) closely monitor hemodynamic status repeated Venous Duplex BLE NGT heme and GI follows s/p prior EGD 01/01 -> gastric ulcer across G tube site , no active bleeding s/p EGD 01/30 -> gastric ulceration without visible bleeding Protonix IV bid ( changed from Protonix gtt), Carafate GT feeding resumed as per GI , s/p blood tx 01/30 stool OB positive , another pending transfuse to keep Hgb > 7. HH at baseline trend LFT-> trended down, hep panel NGT hx of cirrhosis- per GI management monitor renal parameters, lytes, avoid nephrotoxic IVF BUN trending down, creat stable, likely prerenal due to dehydration replace e/lytes as per nephro recs , monitor volumes seizure precautions, antiepileptic optimized as per neuro recs ammonia 49, fup with further neuro recs EEG - grossly abnormal; mild to mod encephalopathy, single ictal episode CT head no acute IC pathology BP management with current regimen SNF meds supportive care dietary recs s/p 12/31 Rx for presumed scabies with permethrin and Ivermectin, repeated Ivermectin 01/08 dc plan still in process case discussed and evaluated by supervising physician Jeyson Anderson MD 02/20/20 1501: Subjective Allergies: Coded Allergies: CARBAMAZEPINE (Verified Allergy, Unknown, 12/31/19) LORAZEPAM (Verified Allergy, Unknown, 12/31/19) Assessment/Plan Assessment/Plan Patient seen and examined with [employer] and the above formulated assessment and plan. Ivanna Mora NP Feb 20, 2020 11:36 Jeyson Anderson MD Feb 20, 2020 15:01
--- NOTE | 2020-02-20 11:53 | General Progress Note ---
Subjective ROS Limited/Unobtainable: No Allergies: Coded Allergies: CARBAMAZEPINE (Verified Allergy, Unknown, 12/31/19) LORAZEPAM (Verified Allergy, Unknown, 12/31/19) Objective Last 24 Hour Vital Signs Date Time Temp Pulse Resp B/P (MAP) Pulse Ox O2 Delivery O2 Flow Rate FiO2 02/20/20 08:00 71 02/20/20 08:00 Mechanical Ventilator 02/20/20 08:00 35 02/20/20 08:00 97.9 56 18 99/67 (78) 100 02/20/20 07:01 63 20 40 02/20/20 04:00 Mechanical Ventilator 02/20/20 04:00 98.0 62 20 98/68 (78) 100 02/20/20 04:00 35 02/20/20 03:27 56 02/20/20 02:31 59 14 40 02/20/20 00:00 35 02/20/20 00:00 Mechanical Ventilator 02/20/20 00:00 97.9 58 20 103/69 (80) 100 02/19/20 23:36 47 02/19/20 22:30 58 20 40 02/19/20 20:00 Mechanical Ventilator 02/19/20 20:00 98.0 75 18 121/68 (85) 100 02/19/20 20:00 35 02/19/20 19:10 59 02/19/20 18:30 55 22 40 02/19/20 16:00 51 02/19/20 16:00 Mechanical Ventilator 02/19/20 16:00 97.3 51 16 104/47 (66) 100 02/19/20 16:00 35 02/19/20 15:25 59 20 40 02/19/20 12:00 35 02/19/20 12:00 59 02/19/20 12:00 96.8 52 18 103/47 (65) 100 02/19/20 12:00 Mechanical Ventilator l Intake and Output 02/19/20 02/20/20 19:00 07:00 Intake Total 1440 ml 1192.5 ml Balance 1440 ml 1192.5 ml Intake Free Water 240 ml IV Total 825 ml 712.5 ml Tube Feeding 375 ml 480 ml # Voids 3 5 # Bowel Movements 5 3 Laboratory Tests 02/20/20 03:46: White Blood Count 11.4H, Red Blood Count 3.57L, Hemoglobin 10.0L, Hematocrit 31.1L, Mean Corpuscular Volume 87, Mean Corpuscular Hemoglobin 28.1, Mean Corpuscular Hemoglobin Concent 32.2, Red Cell Distribution Width 14.4, Platelet Count 637H, Mean Platelet Volume 4.5L, Neutrophils (%) (Auto) 70.0, Lymphocytes (%) (Auto) 19.2L, Monocytes (%) (Auto) 7.1, Eosinophils (%) (Auto) 2.6, Basophils (%) (Auto) 1.1, Sodium Level 134L, Potassium Level 4.1, Chloride Level 100, Carbon Dioxide Level 29, Blood Urea Nitrogen 10, Creatinine 0.6, Estimat Glomerular Filtration Rate > 60, Glucose Level 109H, Calcium Level 9.1 Height (Feet): 5 Height (Inches): 1.00 Weight (Pounds): 82 General Appearance: no apparent distress EENT: normal ENT inspection Neck: supple Cardiovascular: normal rate Respiratory/Chest: decreased breath sounds Abdomen: normal bowel sounds, non tender, soft Extremities: non-tender Assessment/Plan Problem List: (1) G tube feedings ICD Codes: Z93.1 - Gastrostomy status SNOMED: 486550385, 489129035, [id number] (2) GI bleed ICD Codes: K92.2 - Gastrointestinal hemorrhage, unspecified SNOMED: 23220374 (3) Sepsis ICD Codes: A41.9 - Sepsis, unspecified organism SNOMED: 51509346 (4) Pneumonia ICD Codes: J18.9 - Pneumonia, unspecified organism SNOMED: 678396922 Status: stable, other - Patient is now hypotensive before over 47 she will receive 500 cc of normal saline bolus to be repeated blood pressure remained below 90 further management will be decided following the boluses treatment repeat laboratory tests will be done in a.m. GEM MCKAY MD Assessment/Plan: s/p EGD gastric ulcer monitor H&H C. Diff positive>> now neg GTF prn Imodium ppi will Satish Junior MD Feb 20, 2020 11:53
[2020-02-20 12:00] VITALS: BP 112/68
[2020-02-20] MEDS ORDERED: levETIRAcetam 500mg/5ml Liquid GT SCH (13:04)
--- NOTE | 2020-02-20 13:07 | Infectious Diseases Prog Note ---
Assessment/Plan 39yo F with: Severe Sepsis Fever, recurrent; SP Leukocytosis; recurrent; mild UTI -02/04 CXR: Bilateral mostly interstitial opacities; suspect largely chronic althoughthere may be an acute component at the left lung base. The latter does appear somewhat improved since the previous exam. -02/02 sp cx S. marcences (R ancef, CTX, mami; I Levo; S Genta, Ceftazidime, Cefepime, bactrim), GNR #2 -02/01 CXR: Interval development of retrocardiac airspace opacities which could represent atelectasis versus developing consolidation. u/a wbc 5-10, nit neg, leuk +2; -01/28 CXR: Subtle reticular nodular opacities in the left apex which may be related to scarring versus acute small airway disease/bronchitis CT c/abd/p wo: Study substantially limited due to lack of IV contrast. Findings most compatible with ileus and probable infectious or inflammatory enteritis or enterocolitis. Large low-attenuation pelvic fluid of uncertain significance, potentially reactive.Appendix not identified. Percutaneous gastrostomy tube adequately positioned in the stomach. Rectal tube. Urinary bladder wall thickening could be incidental, due to high outlet pressures, or could represent cystitis.Cholecystectomy. -01/27 u/a no pyuria, nit +, leuk +3; ucx >100k CRE K, pna (S Gentamycin), P . miriabilis, MDR P, fluorensces (I Gentamycin) CXR: no acute disease Bc xNTD -01/26 Bcx Neg -01/13 CXR: no acute disease -01/12 u/a wbc tnct, nit neg, latrell +3; ucx >100k C. tropicalis Bcx NTD Severe Cdiff colitis -01/30 Cdif toxin a/b neg -01/06 Cdif toxin + 01/27 KUB:Severely dilated small bowel loop in the central abdomen could reflect obstruction. Diffusely fluid distended colon. -01/13 KUB: no acute findings Recurrent GIB 01/06 u/aneg 12/30 BCx 1/2 +CONS, likely contaminant 12/30 UA neg, COVID rapid Ag neg 12/30 CXR 1. Density overlying the bilateral lung apices. May represent pleural thickening, multifocal airspace opacities, versus summation artifact. 01/01 BCx Neg 01/02 BCx Neg Acute blood loss anemia Possible pna on CXR, sp rx Seizure episode -01/10 CT head: Third and lateral ventriculomegaly. Associated enlargement of the extra axial CSF spaces indicates that this is probably due to central volume loss, but the possibility of hydrocephalus should also be considered. At the degree of volume loss is considerably out of proportion to patient's age. Periventricular deep white matter low-attenuation. Probably on the basis of microvascular ischemic change but given patient's age the possibility of demyelinating disease should be considered as well. 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 [facility] will continue to follow. Subjective Allergies: Coded Allergies: CARBAMAZEPINE (Verified Allergy, Unknown, 12/31/19) LORAZEPAM (Verified Allergy, Unknown, 12/31/19) afebrile mild leukocytosis rectal tube off now Objective Last 24 Hour Vital Signs Date Time Temp Pulse Resp B/P (MAP) Pulse Ox O2 Delivery O2 Flow Rate FiO2 02/20/20 11:02 60 12 40 02/20/20 08:00 71 02/20/20 08:00 Mechanical Ventilator 02/20/20 08:00 35 02/20/20 08:00 97.9 56 18 99/67 (78) 100 02/20/20 07:01 63 20 40 02/20/20 04:00 Mechanical Ventilator 02/20/20 04:00 98.0 62 20 98/68 (78) 100 02/20/20 04:00 35 02/20/20 03:27 56 02/20/20 02:31 59 14 40 02/20/20 00:00 35 02/20/20 00:00 Mechanical Ventilator 02/20/20 00:00 97.9 58 20 103/69 (80) 100 02/19/20 23:36 47 02/19/20 22:30 58 20 40 02/19/20 20:00 Mechanical Ventilator 02/19/20 20:00 98.0 75 18 121/68 (85) 100 02/19/20 20:00 35 02/19/20 19:10 59 02/19/20 18:30 55 22 40 02/19/20 16:00 51 02/19/20 16:00 Mechanical Ventilator 02/19/20 16:00 97.3 51 16 104/47 (66) 100 02/19/20 16:00 35 02/19/20 15:25 59 20 40 Height (Feet): 5 Height (Inches): 1.00 Weight (Pounds): 82 General Appearance: no apparent distress Neck: supple Cardiovascular: normal rate Respiratory/Chest: decreased breath sounds Abdomen: hypoactive bowel sounds Extremities: non-tender Laboratory Tests Test 02/20/20 03:46 White Blood Count 11.4 K/UL (4.8-10.8) H Red Blood Count 3.57 M/UL (4.20-5.40) L Hemoglobin 10.0 G/DL (12.0-16.0) L Hematocrit 31.1 % (37.0-47.0) L Mean Corpuscular Volume 87 FL (80-99) Mean Corpuscular Hemoglobin 28.1 PG (27.0-31.0) Mean Corpuscular Hemoglobin Concent 32.2 G/DL (32.0-36.0) Red Cell Distribution Width 14.4 % (11.6-14.8) Platelet Count 637 K/UL (150-450) H Mean Platelet Volume 4.5 FL (6.5-10.1) L Neutrophils (%) (Auto) 70.0 % (45.0-75.0) Lymphocytes (%) (Auto) 19.2 % (20.0-45.0) L Monocytes (%) (Auto) 7.1 % (1.0-10.0) Eosinophils (%) (Auto) 2.6 % (0.0-3.0) Basophils (%) (Auto) 1.1 % (0.0-2.0) Sodium Level 134 MMOL/L (136-145) L Potassium Level 4.1 MMOL/L (3.5-5.1) Chloride Level 100 MMOL/L (98-107) Carbon Dioxide Level 29 MMOL/L (21-32) Blood Urea Nitrogen 10 mg/dL (7-18) Creatinine 0.6 MG/DL (0.55-1.30) Estimat Glomerular Filtration Rate > 60 mL/min (>60) Glucose Level 109 MG/DL (74-106) H Calcium Level 9.1 MG/DL (8.5-10.1) Current Medications Medications (Trade) Dose Ordered Sig/Villa Route PRN Reason Start Time Stop Time Status Last Admin Dose Admin Acetaminophen (Tylenol) 650 mg Q4H PRN GT Temp >100.5 02/01/20 20:30 03/02/20 20:29 02/14/20 20:50 Ascorbic Acid (Vitamin C) 500 mg DAILY GT 01/28/20 09:30 02/27/20 09:29 02/20/20 09:02 Clonazepam (KlonoPIN) 1 mg EVERY 8 HOURS GT 02/14/20 14:00 02/21/20 13:59 02/20/20 06:53 Dextrose/Sodium Chloride 1,000 ml @ 75 mls/hr [id number] IV 01/29/20 13:00 02/27/20 12:59 02/19/20 22:30 Famotidine (Pepcid I.v.) 20 mg Q12HR IVP 01/29/20 21:00 02/28/20 20:59 02/20/20 09:01 Gabapentin (Neurontin) 900 mg THREE TIMES A DAY GT 02/20/20 09:00 03/21/20 08:59 02/20/20 09:01 Loperamide HCl (Imodium) 2 mg Q6H PRN GT Diarrhea 02/18/20 16:15 03/19/20 16:14 02/19/20 17:35 Midodrine (Pro-Amatine) 10 mg TID GT 02/07/20 18:00 04/21/20 17:59 02/20/20 09:01 Multivitamins (Multivitamins W/ Minerals 15ml Liquid) 15 ml DAILY GT 01/28/20 09:30 02/27/20 09:29 02/20/20 09:01 Pantoprazole (Protonix) 40 mg EVERY 12 HOURS IVP 01/31/20 09:30 03/01/20 09:29 02/20/20 09:01 Potassium Chloride (K-Dur) 40 meq TWICE A DAY ORAL 02/02/20 18:00 05/02/20 17:59 02/20/20 09:02 Sucralfate (Carafate) 1 gm FOUR TIMES A DAY ORAL 01/30/20 09:00 04/29/20 08:59 02/20/20 09:02 Thiamine HCl (Vitamin B1) 100 mg DAILY GT 01/28/20 09:30 02/27/20 09:29 02/20/20 09:02 Char Morel M.D. Feb 20, 2020 13:07
--- NOTE | 2020-02-20 13:29 | Nephrology Progress Note ---
Assessment/Plan Problem List: (1) RICHARD (acute kidney injury) (2) Dehydration (3) Anemia (4) GI bleed (5) Malnutrition (6) Seizure disorder (7) Electrolyte imbalance Assessment Renal failure, in the form of prerenal azotemia, most likely secondary to GI bleed GI bleed, leading to severe anemia Sepsis, pneumonia Chronic tracheostomy, ventilator dependent History of CVA History of seizure disorder History of psychiatric disorder Severe malnutrition Electrolyte abnormalities Plan February 19: Labs reviewed. Renal parameters stable. Will observe serum sodium. DC planning in process. February 18: Stable from renal standpoint of view. Discharge planning in process. February 17: No chemistry panel done today. Patient discharge is still pending due to logistical issues. Will check lab tomorrow. Stable from renal st andpoint of view. February 16: No chemistry panel done today. Vital signs stable. Stable from renal standpoint of view for discharge. February 15: Stable from renal standpoint of view. Okay to discharge from renal standpoint of view. February 14: No chemistry panel done today. Clinically remains stable. Continue per PMD. February 13: Status quo. Stable from renal standpoint of view. February 12: Stable from renal standpoint of view. Remains full code on ventilator. Continue per PMD. February 11: Today's labs reviewed. Full code. On ventilator. Abnormal electrolytes addressed. February 10: No can panel done today. Full code. On ventilator. Will order lab tomorrow. February 09: No chemistry panel done today. Remains full code. Remains on ventilator. Continue per PMD. February 08: Labs reviewed. Electrolyte abnormalities addressed. Patient full code. Continue per current management. February 07: No chemistry panel done today. Remains stable from renal standpoint of view. Patient is full code. Order lab tomorrow. February 06: No chemistry panel drawn today. Clinically remains stable from renal standpoint of view. Patient is full code. February 05: Phosphorus and magnesium supplement given. Stable from renal standpoint of view. Remains full code February 04: No chemistry panel done today. Remains stable from renal standpoint of view. Continue to monitor renal parameters. February 03: Labs reviewed. Renal parameters stable. Continue her consultants. February 02: Lab reviewed. Low phosphorus low magnesium corrections ordered. Continue to monitor electrolytes and renal parameters. February 01: Lab reviewed. Low phosphorus and low magnesium replaced. Low potassium replaced. Continue to monitor electrolytes. Continue per consult ants. January 31: Lab reviewed. Hemoglobin higher. Renal parameters stable. Potassium and phosphorus supplement given. January 30: Labs reviewed. Low mag low phosphorus and low potassium replaced. White blood cells 16,000 today. Remains full code. Continue to monitor hemoglobin and hematocrit and electrolytes. January 29: Labs reviewed. Magnesium, potassium, phosphorus supplement given. White blood cells down to 22,000. Remains full code. Continue per consultants. RN reports rectal bleed. Hemoglobin drifting down. Defer management to quality assurance consultant who is already on the case. January 28: Status quo. Electrolyte abnormalities noted. Mag Phos and potassium supplement IV given. Renal parameters stable. Continue per consultants. Leukocytosis persists. January 27: Significant rise in white blood cell counts. Hypotensive. Now in ICU. Will give albumin bolus. Continue to monitor renal parameters. Continue per ID advice. January 26: Continue to monitor renal parameters. Patient remains on ventilator. Patient is full code. Continue per consultants. January 25: Status quo. Labs reviewed. Continue per consultants. January 24: Status unchanged. Labs reviewed. Remains stable from renal standpoint of view. January 23: Back in [facility]. Stable from renal standpoint of view. Continue per consultants. January 22: Patient in ICU now. Vital signs and heart rate and blood pressure appears to be stable. Patient had an episode of bradycardia but it was resolved. TSH level today is very low will cut down on Synthroid dose. January 21: Today's labs are reviewed. Stable renal parameters. Continue per consultants. January 20: Labs reviewed. Renal parameters stable. January 19: Labs reviewed. Stable from renal standpoint. January 18: No labs done today. Continue per consultants. Medications reviewed. January 17: Late note entry due to system problem at the [facility] [place].Chemistry panel reviewed. Stable from renal standpoint of view. Continue per current management. January 16: No can panel today. Check lab tomorrow. Remains stable from renal standpoint of view. January 15: Lab reviewed. Renal parameters stable. January 14: Lab reviewed. Renal parameters stable. January 13: Labs reviewed. Stable from renal standpoint of view. January 12: Labs reviewed. Stable from renal standpoint of view January 11: No labs drawn today stable from renal standpoint of view January 10: Labs reviewed. Potassium supplement given. Continue per consultants. January 09: Lab reviewed. Potassium supplement given. IV fluid discontinued. January 08: Lab reviewed. Renal parameters stable. Continue per consultants. January 07: Lab reviewed. Renal parameters stable. Continue per consultants. January 06: Lab reviewed. Stable from renal standpoint of view. January 05: Labs reviewed. Stable from renal standpoint of view. Continue per consultants. January 04: No labs drawn today. Will check labs tomorrow. Continue per consultants. January 03: Lab reviewed. Renal parameters stable. IV fluid discontinued. High LFTs declining. Continue same. January 02: Lab reviewed. Renal parameters stable. Continue per PMD and consultants. LFTs remain elevated. Continue to monitor. Continue slow hydration Discontinue blood pressure medications as her blood pressure is low Discontinue diuretics Monitor renal parameters Transfusion as needed GI evaluation Correct electrolyte abnormalities Check B12 level, folate, and thyroid function tests: Results noted Subjective ROS Limited/Unobtainable: Yes Objective Objective Last 24 Hour Vital Signs Date Time Temp Pulse Resp B/P (MAP) Pulse Ox O2 Delivery O2 Flow Rate FiO2 02/20/20 11:02 60 12 40 02/20/20 08:00 71 02/20/20 08:00 Mechanical Ventilator 02/20/20 08:00 35 02/20/20 08:00 97.9 56 18 99/67 (78) 100 02/20/20 07:01 63 20 40 02/20/20 04:00 Mechanical Ventilator 02/20/20 04:00 98.0 62 20 98/68 (78) 100 02/20/20 04:00 35 02/20/20 03:27 56 02/20/20 02:31 59 14 40 02/20/20 00:00 35 02/20/20 00:00 Mechanical Ventilator 02/20/20 00:00 97.9 58 20 103/69 (80) 100 02/19/20 23:36 47 02/19/20 22:30 58 20 40 02/19/20 20:00 Mechanical Ventilator 02/19/20 20:00 98.0 75 18 121/68 (85) 100 02/19/20 20:00 35 02/19/20 19:10 59 02/19/20 18:30 55 22 40 02/19/20 16:00 51 02/19/20 16:00 Mechanical Ventilator 02/19/20 16:00 97.3 51 16 104/47 (66) 100 02/19/20 16:00 35 02/19/20 15:25 59 20 40 Intake and Output 02/19/20 02/20/20 19:00 07:00 Intake Total 1440 ml 1192.5 ml Balance 1440 ml 1192.5 ml Intake Free Water 240 ml IV Total 825 ml 712.5 ml Tube Feeding 375 ml 480 ml # Voids 3 5 # Bowel Movements 5 3 Laboratory Tests 02/20/20 03:46: White Blood Count 11.4H, Red Blood Count 3.57L, Hemoglobin 10.0L, Hematocrit 31.1L, Mean Corpuscular Volume 87, Mean Corpuscular Hemoglobin 28.1, Mean Corpuscular Hemoglobin Concent 32.2, Red Cell Distribution Width 14.4, Platelet Count 637H, Mean Platelet Volume 4.5L, Neutrophils (%) (Auto) 70.0, Lymphocytes (%) (Auto) 19.2L, Monocytes (%) (Auto) 7.1, Eosinophils (%) (Auto) 2.6, Basophils (%) (Auto) 1.1, Sodium Level 134L, Potassium Level 4.1, Chloride Level 100, Carbon Dioxide Level 29, Blood Urea Nitrogen 10, Creatinine 0.6, Estimat Glomerular Filtration Rate > 60, Glucose Level 109H, Calcium Level 9.1 Height (Feet): 5 Height (Inches): 1.00 Weight (Pounds): 82 General Appearance: no apparent distress EENT: other - Trach to vent Cardiovascular: normal rate Respiratory/Chest: decreased breath sounds Abdomen: distended Objective No change Chivo Holloway MD Feb 20, 2020 13:29
[2020-02-20] MEDS: D5 1/2NS 1,000 ML IV SCH (13:50)
--- NOTE | 2020-02-20 14:24 | Surgery Progress Note ---
Surgery Progress Note Subjective Additional Comments no acute events Objective Last 24 Hour Vital Signs Date Time Temp Pulse Resp B/P (MAP) Pulse Ox O2 Delivery O2 Flow Rate FiO2 02/20/20 11:02 60 12 40 02/20/20 08:00 71 02/20/20 08:00 Mechanical Ventilator 02/20/20 08:00 35 02/20/20 08:00 97.9 56 18 99/67 (78) 100 02/20/20 07:01 63 20 40 02/20/20 04:00 Mechanical Ventilator 02/20/20 04:00 98.0 62 20 98/68 (78) 100 02/20/20 04:00 35 02/20/20 03:27 56 02/20/20 02:31 59 14 40 02/20/20 00:00 35 02/20/20 00:00 Mechanical Ventilator 02/20/20 00:00 97.9 58 20 103/69 (80) 100 02/19/20 23:36 47 02/19/20 22:30 58 20 40 02/19/20 20:00 Mechanical Ventilator 02/19/20 20:00 98.0 75 18 121/68 (85) 100 02/19/20 20:00 35 02/19/20 19:10 59 02/19/20 18:30 55 22 40 02/19/20 16:00 51 02/19/20 16:00 Mechanical Ventilator 02/19/20 16:00 97.3 51 16 104/47 (66) 100 02/19/20 16:00 35 02/19/20 15:25 59 20 40 I&O Intake and Output 02/19/20 02/20/20 19:00 07:00 Intake Total 1440 ml 1192.5 ml Balance 1440 ml 1192.5 ml Intake Free Water 240 ml IV Total 825 ml 712.5 ml Tube Feeding 375 ml 480 ml # Voids 3 5 # Bowel Movements 5 3 Dressing: saturated Cardiovascular: RSR Respiratory: decreased breath sounds Abdomen: non-tender, present bowel sounds Extremities: no edema, no tenderness, no cyanosis Laboratory Tests Test 02/20/20 03:46 White Blood Count 11.4 K/UL (4.8-10.8) H Red Blood Count 3.57 M/UL (4.20-5.40) L Hemoglobin 10.0 G/DL (12.0-16.0) L Hematocrit 31.1 % (37.0-47.0) L Mean Corpuscular Volume 87 FL (80-99) Mean Corpuscular Hemoglobin 28.1 PG (27.0-31.0) Mean Corpuscular Hemoglobin Concent 32.2 G/DL (32.0-36.0) Red Cell Distribution Width 14.4 % (11.6-14.8) Platelet Count 637 K/UL (150-450) H Mean Platelet Volume 4.5 FL (6.5-10.1) L Neutrophils (%) (Auto) 70.0 % (45.0-75.0) Lymphocytes (%) (Auto) 19.2 % (20.0-45.0) L Monocytes (%) (Auto) 7.1 % (1.0-10.0) Eosinophils (%) (Auto) 2.6 % (0.0-3.0) Basophils (%) (Auto) 1.1 % (0.0-2.0) Sodium Level 134 MMOL/L (136-145) L Potassium Level 4.1 MMOL/L (3.5-5.1) Chloride Level 100 MMOL/L (98-107) Carbon Dioxide Level 29 MMOL/L (21-32) Blood Urea Nitrogen 10 mg/dL (7-18) Creatinine 0.6 MG/DL (0.55-1.30) Estimat Glomerular Filtration Rate > 60 mL/min (>60) Glucose Level 109 MG/DL (74-106) H Calcium Level 9.1 MG/DL (8.5-10.1) Plan Problems: (1) Pneumonia (2) Sepsis Assessment & Plan: leukocytosis anemia lactic acidosis agree with GI recommend EGD planned for 12/31 hold feeding for now trend h/h monitor for bleeding no acute hemorrhage will be available in event needs exploration for hemostasis prbc as per heme thank you will follow with recs cont abx worsening wbc wbc trending down comfortable appearing no n/v hypotensive in ICU again worse pending CT results - noted PICC ordered improving wbc improved labs and micro trending labs improved wbc resolved prognosis guarded Pt presented on admission in emaciated state. Pt has tracheostomy and GT. NO skin concerns noted to skin under collar of trach. NO erythema or evidence of skin erosion at GT site. Pt noted to have scaly pimple-like rash with webbing noted to R and L axillae, undersides of both breasts, Bilat groin and lower back. Tracking and webbing noted to hands and feet. Pt restless and scratching at skin. Non-Blanching erythema without induration or fluctuance noted to R and L hips and trochanteric areas.Non-blanching erythema noted along spine. Non-Blanching erythema without induration noted to Sacrum. Non-Blanching erythema noted to R and L Malleoli and both heels. Tx.Plan: Please apply Cavilon Skin Barrier to each bony Prominences at risks for Skin Breakdown. Cover each area with Optifoam drsgs. Change every 7 days and prn. Apply Moisture Barrier Paste to Sacrum. Cover with Optifoam drsg. Change every 3 days and prn. Reposition at least every 2hours or as tolerated. Off-load heels with pillow. APM/EMELI Mattress overlay. improving cont current care plan Incontinent social dermatitis noted around the bilateral groin creases and vaginal area. Site clean. Monitor for incontinence. There is marked enlargement of the third and lateral ventricles and extra axial CSF spaces, in particular the former. There is considerable periv entricular deep white matter low-attenuation. Otherwise normal mobley-white differentiation. No acute hemorrhage or edema. No mass effect nor midline shift. Visualized orbits and sinuses are unremarkable. The calvarium is intact Impression: Third and lateral ventriculomegaly. Associated enlargement of the extra axial CSF spaces indicates that this is probably due to central volume loss, but the possibility of hydrocephalus should also be considered. At the degree of volume loss is considerably out of proportion to patient's age. Correlate with clinical history Periventricular deep white matter low-attenuation. Probably on the basis of microvascular ischemic change but given patient's age the possibility of demyelinating disease should be considered as well. Negative for acute intracranial bleed or mass effect ABDOMEN: Liver: Unremarkable. Gallbladder and bile ducts: Cholecystectomy. No ductal dilation. Pancreas: Unremarkable. No ductal dilation. Spleen: Unremarkable. No splenomegaly. Adrenals: Unremarkable. No mass. Kidneys and ureters: Unremarkable. No obstructing stones. No hydronephrosis. Stomach and bowel: Operative bowel findings. Diffuse small bowel wall thickening with areas of distention and fluid-filled colonic loops. No clear focal transition point to suggest small bowel obstruction. PELVIS: Appendix: Appendix not identified. Bladder: Urinary bladder wall thickening could be incidental, due to high outlet pressures, or could represent cystitis. No stones. Reproductive: Unremarkable as visualized. ABDOMEN and PELVIS: Intraperitoneal space: Large low-attenuation pelvic fluid of uncertain significance, potentially reactive. No free air. Bones/joints: No acute fracture. No dislocation. Soft tissues: Bilateral buttock injection granulomas. Vasculature: Unremarkable. No abdominal aortic aneurysm. Lymph nodes: Unremarkable. No enlarged lymph nodes. Tubes, lines and devices: Percutaneous gastrostomy tube adequately positioned in the stomach. Rectal tube. Other findings: No perforation seen. IMPRESSION: 1. Study substantially limited due to lack of IV contrast. 2. Findings most compatible with ileus and probable infectious or inflammatory enteritis or enterocolitis. 3. Large low-attenuation pelvic fluid of uncertain significance, potentially reactive. 4. Appendix not identified. 5. Percutaneous gastrostomy tube adequately positioned in the stomach. Rectal tube. 6. Urinary bladder wall thickening could be incidental, due to high outlet pressures, or could represent cystitis. 7. Cholecystectomy. (3) GI bleed (4) G tube feedings Assessment & Plan: DAILY ESTIMATED NEEDS: Needs based on Underweight, critical care 37.3kg 30-40 kcals/kg [id number] total kcals 1.25-2 g protein/kg 47-75 g total protein 25-35 mL/kg [phone] total fluid mLs NUTRITION DIAGNOSIS: Increased kcal and pro needs r/t underweight status as evidenced by BMI 14.1, pt is 68% of ideal body weight w/ generalized severe wasting, trach and peg dep. CURRENT TF:Vital AF 1.2 @55 x20 hrs ENTERAL NUTRITION RECOMMENDATIONS: Vital AF 1.2 @ 55ml/hr x20 hrs to provide 1100ml 1320kcal 83g prot, 892ml free water - Rec to continue elemental TF formula while stool C-diff positive, +LBM - HOLD 1HR BEFORE AND AFTER SYNTHROID MEDS - Flush per MD. HOB over 30 degrees ADDITIONAL RECOMMENDATIONS: 1) Per SNF: 5'4" and 81# Maintain calibrated bed scale wts w/ added P200 mattress 2) Lytes daily madhav w/ loose stools, replete as needed 3) Skin integrity: Continue BRIAN VIA GT BID + Vit C 4) Accuchecks for Hypoglycemia 5) Add probiotics for stool C-diff+ . George Woods Feb 20, 2020 14:24
[2020-02-20] MEDS ORDERED: OXcarbazepine 150mg tab GT SCH (14:42)
[2020-02-20] MEDS ORDERED: D5 1/2NS 1000ml IV ONE (15:39)
== END 2020-02-20 15:40 | DRG 720 ==
LOC: EDBD 16:44 → EMR 17:35 → EDBEDREQSVC 18:14 → EDBEDREQ 18:56 → 2W 19:14 → ICU 01-23 02:25 → 2W 01-23 19:00 → ICU 01-28 08:37 → 2W 01-30 14:37
PROC: 5A1955Z Respiratory Ventilation, Greater than 96 Consecutive Hours (ICD-10-PCS; principal; 2019-12-31)
PROC: 0DD78ZX Extraction of Stomach, Pylorus, Via Natural or Artificial Opening Endoscopic, Diagnostic (ICD-10-PCS; 2020-01-02)
PROC: 0DJ08ZZ Inspection of Upper Intestinal Tract, Via Natural or Artificial Opening Endoscopic (ICD-10-PCS; 2020-01-31)
DX: A41.9 Sepsis, unspecified organism (principal); E43 Unspecified severe protein-calorie malnutrition; J18.9 Pneumonia, unspecified organism; N17.9 Acute kidney failure, unspecified; K72.10 Chronic hepatic failure without coma; Z68.1 Body mass index [BMI] 19.9 or less, adult; R65.21 Severe sepsis with septic shock; J96.10 Chronic respiratory failure, unspecified whether with hypoxia or hypercapnia; K72.90 Hepatic failure, unspecified without coma; Z93.0 Tracheostomy status; Z93.1 Gastrostomy status; Z99.11 Dependence on respirator [ventilator] status; D62 Acute posthemorrhagic anemia; R13.10 Dysphagia, unspecified; Z86.73 Personal history of transient ischemic attack (TIA), and cerebral infarction without residual deficits; I12.9 Hypertensive chronic kidney disease with stage 1 through stage 4 chronic kidney disease, or unspecified chronic kidney disease; N18.9 Chronic kidney disease, unspecified; G40.909 Epilepsy, unspecified, not intractable, without status epilepticus; Z20.828 Contact with and (suspected) exposure to other viral communicable diseases; E86.0 Dehydration; K74.60 Unspecified cirrhosis of liver; B86 Scabies; E87.1 Hypo-osmolality and hyponatremia; E03.9 Hypothyroidism, unspecified; K29.70 Gastritis, unspecified, without bleeding; R00.1 Bradycardia, unspecified; E83.42 Hypomagnesemia; E87.6 Hypokalemia; A04.72 Enterocolitis due to Clostridium difficile, not specified as recurrent; D69.6 Thrombocytopenia, unspecified; N39.0 Urinary tract infection, site not specified; K25.4 Chronic or unspecified gastric ulcer with hemorrhage
CPT/HCPCS: 36415; 36600; 70450; 71045; 71250; 74018; 74176; 80048; 80053; 80061; 80076; 80170; 80198; 81001; 81003; 82140; 82270; 82550; 82553; 82607; 82705; 82728; 82746; 82803; 82962; 82977; 83036; 83605; 83690; 83735; 83880; 84100; 84443; 84484; 84550; 85007; 85025; 85610; 85651; 85730; 86140; 86705; 86709; 86803; 86850; 86900; 86901; 86920; 87040; 87045; 87070; 87081; 87086; 87181; 87205; 87324; 87340; 93005; 93306; 93970; 94002; 94003; 94150; 95819; 96365; 96367; 96368; 99291; J7030; J7620; J8499; U0002